=== PATIENT | female | born 1945 | race Caucasian/White ===

== ENCOUNTER → 2020-12-07 08:08 | Outpatient (BNV) | payer OTHER, SELFPAY | PROVIDERS: PCP Family Medicine; Visit Provider Internal Medicine | DX: D50.9 Iron deficiency anemia, unspecified (principal); D69.6 Thrombocytopenia, unspecified | CPT/HCPCS: 99214 ==

== ENCOUNTER → 2020-12-22 15:12 | Outpatient (BNVA) | payer OTHER, MEDICARE, SELFPAY | PROVIDERS: PCP Family Medicine; Visit Provider Physician Assistant | DX: D64.9 Anemia, unspecified (principal); D69.6 Thrombocytopenia, unspecified; Z87.891 Personal history of nicotine dependence | CPT/HCPCS: 99212 ==

== ENCOUNTER 2021-01-11 07:49 | Outpatient (REF) | payer OTHER, MEDICARE, SELFPAY | END 2021-01-11 07:50 | disposition home or self-care (01) | LOC: HO.MDS 07:49 | PROVIDERS: Visit Provider Internal Medicine | DX: D50.9 Iron deficiency anemia, unspecified (principal) | CPT/HCPCS: 96365; 96366; J1200; J1750; Q0163 ==

== ENCOUNTER 2021-02-07 04:48 | Inpatient (IN) | payer OTHER, MEDICARE, SELFPAY ==
[2021-02-07] VITALS (10 sets, daily range): BP systolic 126–148; BP diastolic 48–76; PULSE 82–108; RESP 20–24; TEMP 36.7–36.8; O2SAT 93–98; BMI 30.1
--- NOTE | ~2021-02-07 | CT_ITS ---
EXAMINATION: CT CHEST WITHOUT CONTRAST CLINICAL INFORMATION: Question pneumonia COMPARISON: Chest x-ray 02/07/2021 TECHNIQUE: Multidetector volumetric CT imaging of the chest was done. Axial MIP volume rendering provided. Sagittal and coronal reformatted images were obtained. This CT examination was performed using dose optimization techniques as appropriate, variously including the following: *Automated exposure control *Adjustment of mA and/or kV according to patient size (this includes techniques or standardized protocols for targeted exams where dose is matched to indication/reason for exam; i.e. extremities or head) *Use of iterative reconstruction technique DLP: 290 mGy-cm FINDINGS: The heart is enlarged. Coronary artery calcifications are present. There is no pericardial effusion. Mildly dilated ascending aorta measuring up to 4.1 cm in maximum dimension. No gross mediastinal lymphadenopathy appreciated on today's noncontrast imaging. No enlarged axillary lymph nodes. Central airways are patent. Lungs are adequately aerated. There is mild compressive atelectasis of both lung bases. No lobar consolidation is present. Mild emphysematous changes are noted. No pleural effusion or pneumothorax. A few tiny pulmonary nodules are present, for example a 3 mm upper lobe nodule (image [id number], series 5). Visualized portion of the upper abdomen are grossly unremarkable. Mild diffuse degenerative changes of the spine. CT/CT chest wo con IMPRESSION: 1. Mild emphysema. 2. Mild bibasilar compressive atelectasis. 3. A few tiny pulmonary nodules are present, largest measuring approximately 3 mm. 4. Mildly dilated ascending aorta measuring up to 4.1 cm. According to the UPDATED 2017 Fleischner Society recommendations, the advised follow-up imaging for solid nodules < 6 mm is: LOW RISK PATIENT: No routine follow-up. HIGH RISK PATIENT: Optional CT at 12 months.
--- NOTE | ~2021-02-07 | XR_ITS ---
EXAMINATION: XR CHEST CLINICAL INFORMATION: Shortness of breath COMPARISON: 11/28/2018 TECHNIQUE: Frontal view of the chest was obtained. FINDINGS: Lung volumes are symmetric. There is patchy airspace opacity at the right lung base. Mild retrocardiac opacity is difficult to entirely exclude. No evidence of pneumothorax or significant pleural effusion. Cardiac silhouette remains mildly enlarged for technique. Calcification is present at the aortic arch. No acute osseous findings are seen. XR/XR chest 1V IMPRESSION: Patchy right basilar opacity which may represent pneumonia or aspiration in the proper clinical setting.
--- NOTE | 2021-02-07 05:00 | ECG_ITS ---
Test Reason : SOB Blood Pressure : / mmHG Vent. Rate : 099 BPM Atrial Rate : 099 BPM P-R Int : 148 ms QRS Dur : 094 ms QT Int : 368 ms P-R-T Axes : 064 -27 088 degrees QTc Int : 472 ms Normal sinus rhythm Possible Left atrial enlargement Left ventricular hypertrophy Nonspecific ST and T wave abnormality Abnormal ECG When compared with ECG of 08-SEP-2016 08:21, Nonspecific T wave abnormality, improved in Anterior leads Referred By: Sarahy Cruz Electronically Signed By:ZINA MCCONNELL MD
[2021-02-07] MEDS: Albuterol Sulfate (0.083%) 2.5 MG/3 ML VIAL.NEB 5 MG INHALE (05:13)
[2021-02-07] MEDS: methylPREDNISolone Sod Succ 125 MG/2 ML VIAL IVPUSH (05:21)
--- NOTE | 2021-02-07 05:24 | ED_ITS ---
HPI - Asthma General Chief Complaint: Asthma Stated Complaint: DIFF BREATHING Time Seen by Provider: 02/07/21 05:00 Source: patient Mode of arrival: EMS History of Present Illness HPI Narrative: This is a 75-year-old female who is brought in by EMS for acute onset of shortness of breath that started last night, patient reports history of COPD/asthma and received 1 DuoNeb EN route to the hospital. Otherwise, patient denies any fever, chills and states that she did spend quite a bit of time outside yesterday and heat. Patient also reports cough and that she does not use oxygen at home. Related Data Home Medications Medication Instructions Recorded Confirmed albuterol sulfate [ProAir HFA] 90 inh INHALATION DAILY 12/07/20 01/07/21 alprazolam 1 tab PO TID PRN 12/07/20 12/07/20 aspirin [Aspir-81] 81 mg PO DAILY 12/07/20 12/07/20 bupropion HCl 1 tab PO BID 12/07/20 12/07/20 diclofenac sodium 1 tab PO BID 12/07/20 12/07/20 fluticasone propionate INTRANASAL 12/07/20 fluticasone propionate [Flovent INHALATION 12/07/20 HFA] guaifenesin [Mucinex] 600 mg PO Q12H PRN 12/07/20 12/07/20 hydrocodone-acetaminophen 1 tab PO TID PRN 12/07/20 12/07/20 naloxone [Narcan] 1 spray INTRANASAL ONCE PRN 12/07/20 12/07/20 Previous Rx's Medication Instructions Recorded ferrous sulfate [iron] 325 mg PO BID #60 tab 12/07/20 omeprazole magnesium [Prilosec] 10 mg PO DAILY #30 ea 12/08/20 ondansetron HCl [Zofran] 4 mg PO BID PRN #60 tab 12/08/20 bisacodyl 5 mg tablet,delayed 10 mg PO ONCE 1 Days #2 tab 12/22/20 release omeprazole 40 mg capsule,delayed 40 mg PO DAILY #60 cap 12/22/20 release polyethylene glycol 3350 17 238 g PO ONCE 1 Days #238 g 12/22/20 gram/dose oral powder sucralfate 100 mg/mL oral 10 ml PO QIDACHS #420 ml 12/22/20 suspension Allergies Allergy/AdvReac Type Severity Reaction Status Date / Time amoxicillin Allergy Unknown Verified 06/27/18 00:00 penicillin V Allergy Unknown Verified 06/27/18 00:00 Penicillins [PENICILLINS] Allergy Unknown HIVES Unverified 06/04/20 19:05 Sulfa (Sulfonamide Allergy Unknown HIVES Unverified 06/04/20 19:05 Antibiotics) [SULFA (SULFONAMIDE ANTIBIOTICS)] Review of Systems Review of Systems: Pertinent positives and negatives as stated in HPI 10 point review of systems is otherwise negative. [facility] Past Medical History Source: nursing notes reviewed Medical History Anxiety Asthma GERD (gastroesophageal reflux disease) Osteoarthritis Thrombocytopenia Surgical History Hx of hysterectomy Hx of oophorectomy Hx of total knee replacement Family History Family History Sister Lung cancer Lupus Sister Lung cancer Maternal Aunt Lupus Social History Social History Household Members Other:: lives alone Alcohol intake: current Alcohol intake frequency: holidays/special occasions only Smoking Status: Former smoker Advance Directives: No Advance Directives Information Provided: No Physical Exam Vital Signs: Vital Signs: Last Vital Signs Temp 98.0 F 02/07/21 06:31 Pulse 99 02/07/21 07:24 Resp 20 02/07/21 07:24 BP 126/60 02/07/21 07:24 Pulse Ox 97 02/07/21 07:24 Body Mass Index 30.1 VITAL SIGNS: Reviewed. GENERAL: Well developed, well nourished, in no acute distress. HEAD: Normocephalic/atraumatic, EYES: PERRLA, EOMI NOSE: Nares patent bilateral OROPHARYNX: no oral lesions noted, posterior pharynx clear NECK: Supple, no adenopathy LUNGS: Decreased breath sounds with expiratory wheezing noted bilateral, tachypnea. SpO2<95> CARDIOVASCULAR: Regular rate and rhythm without noted murmurs, no JVD or lower extremity edema. ABDOMEN: Soft, non-tender, non-distended with bowel sounds. NEUROLOGIC: Alert and oriented x 4. Strength and sensation to light touch were grossly intact x 4. Course Course Course Narrative: This is a 75-year-old female with history and clinical presentation suggestive COPD exacerbation, pneumonia, but less likely CHF as there are no clinical findings and patient has no history. Patient is also noted to be hypoxic and requiring supplemental oxygen. Patient received Solu- Medrol, hour long albuterol and on re-evaluation reports improvement of her symptoms. However chest x-ray demonstrate patchy right basilar opacity. Patient unable to be titrated off of the oxygen and will receive additional DuoNeb as well as antibiotics. All remaining investigations were reviewed and this case was discussed with the inpatient hospitalist team. I discussed this case with the inpatient hospitalist team MDM - Asthma Lab Data Result diagrams: 02/07/21 05:40 02/07/21 05:40 Labs: Lab Results 02/07/21 02/07/21 02/07/21 Range/Units 05:40 05:40 05:40 WBC 11.4 H (4.8-10.8) X10*3/uL RBC 3.76 L (4.20-5.50) X10*6/uL Hgb 10.5 L (12.0-16.0) g/dl Hct 35.2 L (37-47) % MCV 93.6 (80-98) fL MCH 27.9 (27.0-33.0) pg MCHC 29.8 L (31.0-35.0) g/dl RDW 21.7 H (11.0-16.0) % Plt Count 79 L (160-400) X10*3/uL MPV Not Reportable Immature Gran % (Auto) 0.4 (0.0-0.4) % Neut % (Auto) 89.6 H (45-73) % Lymph % (Auto) 5.4 L (20-40) % [place] % (Auto) 4.1 (2-11) % Eos % (Auto) 0.1 (0-4) % Baso % (Auto) 0.4 (0-2) % Lymph # (Auto) 0.6 L (1.2-4.9) X10*3/uL [place] # (Auto) 0.5 (0.1-1.2) X10*3/uL Eos # (Auto) 0.0 (0.0-0.4) X10*3/uL Baso # (Auto) 0.0 (0.0-0.2) X10*3/uL Abs Immat Gran (auto) 0.04 H (0.00-0.03) X10*3/uL Absolute Neuts (auto) 10.2 H (2.0-8.3) X10*3/uL Absolute Nucleated RBC 0.000 (0.0-0.012) X10*3/uL Nucleated RBC % (auto) 0.0 (0.0-0.2) /100WBC Smear Tech's Comments VERIFIED VBG pH (7.32-7.43) VBG pCO2 mmHg VBG pO2 mmHg VBG HCO3 (22-26) mmol/L VBG O2 Saturation % VBG Base Excess mmol/L Sodium 146 H (135-145) mmol/L Potassium 4.1 (3.3-5.1) mmol/L Chloride 111 H (96-108) mmol/L Carbon Dioxide 27 (22-29) mmol/L Anion Gap 12 (12-20) BUN 24 H (9-16) mg/dL Creatinine 0.92 (0.5-1.4) mg/dL Estim Creat Clear Calc 51.1 Estimated GFR 59 Random Glucose 135 H (60-115) mg/dL Lactic Acid (0.5-2.0) mmol/L Calcium 8.9 (8.4-10.2) mg/dL Total Bilirubin 0.4 (0.0-1.0) mg/dL AST 79 H (5-31) U/L ALT 114 H (0-31) U/L Alkaline Phosphatase 62 (39-117) U/L B-Natriuretic Peptide 601 H (<100) pg/mL Total Protein 6.1 L (6.5-8.0) g/dL Albumin 4.2 (3.5-5.0) g/dL 02/07/21 02/07/21 Range/Units 05:40 05:46 WBC (4.8-10.8) X10*3/uL RBC (4.20-5.50) X10*6/uL Hgb (12.0-16.0) g/dl Hct (37-47) % MCV (80-98) fL MCH (27.0-33.0) pg MCHC (31.0-35.0) g/dl RDW (11.0-16.0) % Plt Count (160-400) X10*3/uL MPV Immature Gran % (Auto) (0.0-0.4) % Neut % (Auto) (45-73) % Lymph % (Auto) (20-40) % [place] % (Auto) (2-11) % Eos % (Auto) (0-4) % Baso % (Auto) (0-2) % Lymph # (Auto) (1.2-4.9) X10*3/uL [place] # (Auto) (0.1-1.2) X10*3/uL Eos # (Auto) (0.0-0.4) X10*3/uL Baso # (Auto) (0.0-0.2) X10*3/uL Abs Immat Gran (auto) (0.00-0.03) X10*3/uL Absolute Neuts (auto) (2.0-8.3) X10*3/uL Absolute Nucleated RBC (0.0-0.012) X10*3/uL Nucleated RBC % (auto) (0.0-0.2) /100WBC Smear Tech's Comments VBG pH 7.32 (7.32-7.43) VBG pCO2 54 mmHg VBG pO2 85 mmHg VBG HCO3 28 H (22-26) mmol/L VBG O2 Saturation 95.0 % VBG Base Excess 1.9 mmol/L Sodium (135-145) mmol/L Potassium (3.3-5.1) mmol/L Chloride (96-108) mmol/L Carbon Dioxide (22-29) mmol/L Anion Gap (12-20) BUN (9-16) mg/dL Creatinine (0.5-1.4) mg/dL Estim Creat Clear Calc Estimated GFR Random Glucose (60-115) mg/dL Lactic Acid 1.1 (0.5-2.0) mmol/L Calcium (8.4-10.2) mg/dL Total Bilirubin (0.0-1.0) mg/dL AST (5-31) U/L ALT (0-31) U/L Alkaline Phosphatase (39-117) U/L B-Natriuretic Peptide (<100) pg/mL Total Protein (6.5-8.0) g/dL Albumin (3.5-5.0) g/dL Discharge Plan Discharge Clinical Impression: Pneumonia, Hypoxia, COPD (chronic obstructive pulmonary disease) Patient Disposition: Admitted As Inpatient
[2021-02-07 05:55] LABS: Basophils Percent Auto 0.4 % (0-2); Eosinophils Percent Auto 0.1 % (0-4); Imm Gran Abs Auto 0.04 X10*3/uL (0.00-0.03); Imm Gran Pct Auto 0.4 % (0.0-0.4); Lymphocytes Absolute Auto 0.6 X10*3/uL (1.2-4.9); Lymphocytes Percent Auto 5.4 % (20-40); MANUAL DIFF FLAG SCAN; Red Cell Distribution Width 21.7 % (11.0-16.0); SCAN SMEAR FLAG 1
[2021-02-07 05:57] LABS: Hematocrit 35.2 % (37-47); Hemoglobin 10.5 g/dl (12.0-16.0); Mean Corpuscular HGB Conc 29.8 g/dl (31.0-35.0); Mean Corpuscular Hemoglobin 27.9 pg (27.0-33.0); Mean Corpuscular Volume 93.6 fL (80-98); Monocytes Absolute Auto 0.5 X10*3/uL (0.1-1.2); Monocytes Percent Auto 4.1 % (2-11); Neutrophils Absolute Auto 10.2 X10*3/uL (2.0-8.3); Neutrophils Percent Auto 89.6 % (45-73); Red Blood Count 3.76 X10*6/uL (4.20-5.50); White Blood Count 11.4 X10*3/uL (4.8-10.8)
[2021-02-07 06:06] LABS: VBG Base Excess 1.9 mmol/L; VBG HCO3 28 mmol/L (22-26); VBG pCO2 54 mmHg; VBG pH 7.32 (7.32-7.43); VBG pO2 85 mmHg
[2021-02-07 06:09] LABS: Venous Blood Gas Refer to POC result
[2021-02-07 06:12] LABS: Lactic Acid 1.1 mmol/L (0.5-2.0)
[2021-02-07 06:21] LABS: Alanine Aminotransferase 114 U/L (0-31); Albumin Level 4.2 g/dL (3.5-5.0); Alkaline Phosphatase 62 U/L (39-117); Anion Gap 12 (12-20); Aspartate Amino Transferase 79 U/L (5-31); Bilirubin Total 0.4 mg/dL (0.0-1.0); Blood Urea Nitrogen 24 mg/dL (9-16); Calcium 8.9 mg/dL (8.4-10.2); Carbon Dioxide 27 mmol/L (22-29); Chloride 111 mmol/L (96-108); Creatinine Clr Calc Pharmacy 51.1; Estimated Glomerular Filt Rate 59; Glucose Random 135 mg/dL (60-115); Potassium 4.1 mmol/L (3.3-5.1); Sodium 146 mmol/L (135-145); Total Protein 6.1 g/dL (6.5-8.0)
[2021-02-07 06:22] LABS: B Type Natriuretic Peptide 601 pg/mL (<100)
[2021-02-07 06:24] LABS: PLT ABN DIST 1; Platelet Count 79 X10*3/uL (160-400)
[2021-02-07] MEDS: Albuterol/Iprat 2.5/0.5MG 3 ML AMPUL.NEB INHALE ×4 (06:34→21:55)
[2021-02-07 06:37] LABS: SLIDE REVIEW VERIFIED
[2021-02-07] MEDS: levoFLOXacin/D5W 750 MG/150 ML PIGGYBACK 100 MG IV (07:21)
--- NOTE | 2021-02-07 07:24 | PC.NURSE ---
Pt on stretcher, speaking full sentences with occasional deep breaths. LS are clear. Occasional moist cough, pt reports clear productive phelgm. Skin is pink warm and dry. NSR on tele. assisted on bedpan. Levaquin started. Sat 95% on 2lpm via nc.
--- NOTE | 2021-02-07 09:37 | PM.IMHP ---
History of Present Illness Date of Service: 02/07/21 Chief Complaint: Shortness of breath This is a 75-year-old female with past medical history of asthma, anxiety, GERD, who presents to the hospital with complaints of shortness of breath, cough, and sputum production. Patient reports that her symptoms started 2-3 days ago where she started feeling congested, she has no fever no chills, she had minimal wheezing yesterday but resolved. She has some nausea with no vomiting. She has had loose bowels for 3 days, she was on antibiotics from 01/25 for 5 days for dental procedure, and had an episode of bronchial pneumonia about few months ago where she was treated with p.o. antibiotics for few days but reports that she did not complete her course due to the antibiotics causing her constipation. She denies any abdominal pain, no urinary symptoms and no lower extremity edema. No chest pain, no palpitations. No headache or change in vision and no weakness numbness or tingling. On arrival to the ED hemodynamically stable with vitals significant for temperature of 98.2?, heart rate of 108, respiratory rate of 24, blood pressure 130/76, satting 93% on room air Labs are significant for WBC count 11.4, hemoglobin of 10.5, pH of 7.32, CO2 of 54, sodium of 146, chloride of 111, BUN of 24, creatinine of 0.92, AST of 79, ALT of 114, BNP of 601, COVID-19 negative EKG shows normal sinus rhythm with possible left atrial enlargement and left ventricular hypertrophy, number specific ST T-wave abnormality Chest x-ray significant for patchy right basilar opacity which may represent pneumonia or aspiration in the proper clinical setting Past medical history as below lung confirmed with patient Review of Systems Review of Systems: Yes all other systems are reviewed and are negative [facility] Medical History Anxiety Asthma GERD (gastroesophageal reflux disease) Osteoarthritis Thrombocytopenia Family History Sister Lung cancer Lupus Sister Lung cancer Maternal Aunt Lupus Surgical History Hx of hysterectomy Hx of oophorectomy Hx of total knee replacement Social History Household Members Other:: lives alone Alcohol intake: current Alcohol intake frequency: holidays/special occasions only Smoking Status: Former smoker Advance Directives: No Advance Directives Information Provided: No Meds Allergies Allergy/AdvReac Type Severity Reaction Status Date / Time amoxicillin Allergy Unknown Verified 06/27/18 00:00 penicillin V Allergy Unknown Verified 06/27/18 00:00 Penicillins [PENICILLINS] Allergy Unknown HIVES Unverified 06/04/20 19:05 Sulfa (Sulfonamide Allergy Unknown HIVES Unverified 06/04/20 19:05 Antibiotics) [SULFA (SULFONAMIDE ANTIBIOTICS)] Home Medications Medication Instructions Recorded Confirmed Last Taken Type albuterol sulfate [ProAir HFA] 90 inh INHALATION DAILY 12/07/20 02/07/21 Unknown History alprazolam 1 tab PO TID PRN 12/07/20 02/07/21 Unknown History aspirin [Aspir-81] 81 mg PO DAILY 12/07/20 02/07/21 Unknown History bupropion HCl 1 tab PO BID 12/07/20 02/07/21 Unknown History diclofenac sodium 1 tab PO BID 12/07/20 02/07/21 Unknown History hydrocodone-acetaminophen 1 tab PO TID PRN 12/07/20 02/07/21 Unknown History biotin 1 mg PO DAILY 02/07/21 02/07/21 Unknown History cholecalciferol (vitamin D3) 1,000 unit 02/07/21 Unknown History [Vitamin D3] vitamin A unit PO 02/07/21 Unknown History vitamin [id number] acid 1 tab PO 02/07/21 Unknown History Physical Exam Vital Signs and Narrative: Vital Signs: Last Vital Signs Temp 98.0 F 02/07/21 06:31 Pulse 99 02/07/21 07:24 Resp 20 02/07/21 07:24 BP 126/60 02/07/21 07:24 Pulse Ox 97 02/07/21 07:24 Body Mass Index 30.1 Const: General: cooperative and no acute distress Orientation/consciousness: patient oriented x3 Eyes: General: appearance normal, both eyes and all related structures Resp: Effort & Inspection: normal respiratory effort and able to speak in complete sentences Cardio: Rate: regular rate Rhythm: regular rhythm GI: Palpation (GI): Soft to palpation Auscultation: normal bowel sounds Skin: General skin exam: no rashes or lesions noted Neuro: General: patient oriented x3 Cognition (Neuro): normal cognition Extrem: General: Yes normal to inspection and Yes no pedal edema Results Labs CBC and Chem 7: 02/07/21 05:40 02/07/21 05:40 Labs: Laboratory Results - last 24 hr 02/07/21 02/07/21 02/07/21 05:40 05:40 05:40 MCV 93.6 MCH 27.9 MCHC 29.8 L RDW 21.7 H Plt Count 79 L MPV Not Reportable Immature Gran % (Auto) 0.4 Neut % (Auto) 89.6 H Lymph % (Auto) 5.4 L [place] % (Auto) 4.1 Eos % (Auto) 0.1 Baso % (Auto) 0.4 Lymph # (Auto) 0.6 L [place] # (Auto) 0.5 Eos # (Auto) 0.0 Baso # (Auto) 0.0 Abs Immat Gran (auto) 0.04 H Absolute Neuts (auto) 10.2 H Absolute Nucleated RBC 0.000 Nucleated RBC % (auto) 0.0 Smear Tech's Comments VERIFIED VBG pH VBG pCO2 VBG pO2 VBG HCO3 VBG O2 Saturation VBG Base Excess Anion Gap 12 Estim Creat Clear Calc 51.1 Estimated GFR 59 Random Glucose 135 H Lactic Acid Calcium 8.9 Total Bilirubin 0.4 AST 79 H ALT 114 H Alkaline Phosphatase 62 B-Natriuretic Peptide 601 H Total Protein 6.1 L Albumin 4.2 02/07/21 02/07/21 05:40 05:46 MCV MCH MCHC RDW Plt Count MPV Immature Gran % (Auto) Neut % (Auto) Lymph % (Auto) [place] % (Auto) Eos % (Auto) Baso % (Auto) Lymph # (Auto) [place] # (Auto) Eos # (Auto) Baso # (Auto) Abs Immat Gran (auto) Absolute Neuts (auto) Absolute Nucleated RBC Nucleated RBC % (auto) Smear Tech's Comments VBG pH 7.32 VBG pCO2 54 VBG pO2 85 VBG HCO3 28 H VBG O2 Saturation 95.0 VBG Base Excess 1.9 Anion Gap Estim Creat Clear Calc Estimated GFR Random Glucose Lactic Acid 1.1 Calcium Total Bilirubin AST ALT Alkaline Phosphatase B-Natriuretic Peptide Total Protein Albumin Imaging Radiologist's Impressions: Impressions Chest X-Ray 02/07/21 05:02 IMPRESSION: Patchy right basilar opacity which may represent pneumonia or aspiration in the proper clinical setting. Assessment and Plan (1) Pneumonia: Status: Acute (2) CHF exacerbation: Status: Acute (3) Dyspnea: Status: Acute This is a 75-year-old female with past medical history of asthma who presents to the hospital with shortness of breath cough and sputum production found to have pneumonia and elevated BNP # dyspnea - possibly multifactorial secondary to pneumonia as well as CHF exacerbation - patient has no history of CHF but has elevated BNP with previous levels normal - no hypoxia with O2 level of 91% on room air on arrival - has leukocytosis, chest x-ray revealing right-sided patchy infiltrate concerning for pneumonia - at this time will start patient on IV antibiotics as well as treatment of CHF as below - monitor respiratory status # community-acquired pneumonia - has right lower lobe patchy infiltrate - will treat with IV antibiotics - follow cultures # CHF exacerbation - patient comes in with dyspnea, has elevated BNP - at this time will obtain echo - EKG showing possible left atrial and ventricular hypertrophy - troponin pending - start patient on Lasix 40 daily - consult cardiology # asthma/COPD - pt former heavy smoker smoked 1 ppd for over >30 yrs quit in 2002 - reports some wheezing, has cough, sputum production as well as dyspnea - will start patient on IV Solu-Medrol 40 b.i.d., DuoNeb p.r.n. and scheduled # chronic pain - continue hydrocodone-acetaminophen DVT prophylaxis:lovenox
[2021-02-07 09:42] LABS: COVID-19 Test Negative (Negative)
[2021-02-07 10:47] LABS: Troponin-I High Sensitivity 30.3 ng/L (<3.5-17.0)
[2021-02-07] MEDS: Furosemide 40 MG/4 ML VIAL IVPUSH (11:23)
[2021-02-07] MEDS: Diclofenac Sodium Delayed Rel 75 MG TABLET.DR PO ×2 (11:23→20:20)
[2021-02-07] MEDS: cefTRIAXone sodium 1 GM in 0.9 % Sodium Chloride 50 ML IV (11:25)
[2021-02-07] MEDS: Azithromycin 500 MG TABLET PO (11:25)
[2021-02-07] MEDS: Enoxaparin Sodium 40 MG/0.4 ML SYRINGE SUBCUT (11:26)
[2021-02-07] MEDS: HYDROcodone Bit/Acetam 7.5/325 TABLET 1 TAB PO ×3 (11:26→20:20)
[2021-02-07] MEDS: Aspirin Enteric Coated 81 MG TABLET.DR PO (11:30)
--- NOTE | 2021-02-07 11:48 | PC.NURSE ---
Pt ambulatory to bathroom, bedside commode obtained. Meds given.
--- NOTE | 2021-02-07 11:49 | PC.NURSE ---
ASA given unscheduled this morning. Pt denies chest pain but reports SOB more with exertion. Also reports chronic rt knee and rt hip and gum discomfort from recent dental procedure
--- NOTE | 2021-02-07 15:13 | PM.CNCAR ---
History of Present Illness History of Present Illness Date of Service: 02/07/21 Requesting physician: Sona Barcenas Consult reason: congestive heart failure Chief complaint: Pneumonia Narrative: I was asked to see Susan in cardiology consultation today for sudden-onset shortness of breath and elevated markers of BNP suggestive of congestive heart failure. 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 Also recently noticed to have iron deficiency anemia received iron infusion for the same. Patient was seen by GI but is not getting any further workup for the iron deficiency anemia, present the hospital with increasing shortness of breath. She says about a month ago she started noticing she currently flat as she would get short of breath. However last night she got significantly worse and got significant short of breath initially thought she had asthma/COPD exacerbation took her inhalers but was not able to breathe and called EMS. She was brought here. Recently she has noticed increasing cough and sputum production. On further workup she was noted to have elevated BNP of six hundred one along with chest x-ray finding suggestive of right basilar infiltrate suggestive of pneumonia. She does have mild leukocytosis. She says since been here and started antibiotic in oxygen and with Lasix she has diuresed well and she is feeling better. She has not had any chest pain, palpitations. No prior history of heart issues including hypertension, congestive heart failure or coronary artery disease. Her high sensitive troponin is minimally elevated. EKG shows LVH with repolarization abnormality. Review of Systems Constitutional: Constitutional: Reports no additional constitutional complaints Cardiovascular: Cardiovascular: Denies Abdominal Distension, Denies chest pain, Denies leg edema, Denies lightheadedness, Denies palpitations, Reports dyspnea on exertion and Reports orthopnea Respiratory: Respiratory: Reports cough, Reports excessive phlegm production and Reports dyspnea on exertion Gastrointestinal: Gastrointestinal: Reports no additional gastrointestinal complaints Genitourinary: Genitourinary: Reports no additional female genitourinary complaints Musculoskeletal: Musculoskeletal: Reports no additional musculoskeletal complaints Neurologic: Reports system reviewed and no additional complaints, except as documented Psychiatric: Psychiatric: Reports no additional psychiatric complaints Endocrine: Endocrine: Reports no additional endocrine complaints and Denies palpitations Hematologic/Lymphatic: Hematologic/Lymphatic: Reports no additional hematologic/lymphatic complaints [facility] Past Medical History Medical History Anxiety Asthma GERD (gastroesophageal reflux disease) Osteoarthritis Thrombocytopenia Family History Family History Sister Lung cancer Lupus Sister Lung cancer Maternal Aunt Lupus Surgical History Surgical History Hx of hysterectomy Hx of oophorectomy Hx of total knee replacement Social History Social History Household Members Other:: lives alone Alcohol intake: current Alcohol intake frequency: holidays/special occasions only Smoking Status: Former smoker Advance Directives: No Advance Directives Information Provided: No Meds Allergies Allergy/AdvReac Type Severity Reaction Status Date / Time amoxicillin Allergy Unknown Verified 06/27/18 00:00 penicillin V Allergy Unknown Verified 06/27/18 00:00 Penicillins [PENICILLINS] Allergy Unknown HIVES Unverified 06/04/20 19:05 Sulfa (Sulfonamide Allergy Unknown HIVES Unverified 06/04/20 19:05 Antibiotics) [SULFA (SULFONAMIDE ANTIBIOTICS)] Active Medications: Current Medications Generic Name Dose Route Start Last Admin Trade Name Freq PRN Reason Stop Dose Admin Acetaminophen 650 mg 02/07/21 10:38 Acetaminophen 325 Mg Tablet PO Q6H PRN Pain, Mild (Pain Scale 1-3) Hydrocodone Bitart/Acetaminophen 1 tab 02/07/21 10:38 02/07/21 11:26 Hydrocodone Bit/Acetam 7.5/325 Tablet PO 1 tab TID PRN Administration Pain Albuterol Sulfate 90 puff 02/08/21 08:00 Albuterol Sulfate 90 Mcg 8 Gm Inhaler INHALE RDAILY ROBERTO Albuterol/Ipratropium 3 ml 02/07/21 12:00 02/07/21 11:25 Albuterol/Iprat 2.5/0.5mg 3 Ml Ampul.Neb INHALE 3 ml RQ4H WHILE AWAKE ROBERTO Administration Albuterol/Ipratropium 3 ml 02/07/21 10:38 Albuterol/Iprat 2.5/0.5mg 3 Ml Ampul.Neb INHALE RQ4H PRN Shortness of Breath/Wheezing Alprazolam 0.5 mg 02/07/21 10:38 Alprazolam 0.5 Mg Tablet PO TID PRN Sleep Aspirin 81 mg 02/08/21 09:00 02/07/21 11:30 Aspirin Enteric Coated 81 Mg Tablet. PO 81 mg DAILY [facility] Administration Azithromycin 500 mg 02/07/21 12:00 02/07/21 13:47 Azithromycin 500 Mg Tablet PO Not Given Q24H [facility] Bupropion HCl 300 mg 02/08/21 09:00 Bupropion Hcl Xl 300 Mg Tab.Er.24h PO DAILY [facility] Diclofenac Sodium 75 mg 02/07/21 21:00 02/07/21 11:23 Diclofenac Sodium Delayed Rel 75 Mg Tablet. PO 75 mg BID [facility] Administration Docusate Sodium 100 mg 02/07/21 10:38 Docusate Sodium 100 Mg Capsule PO DAILY PRN Constipation Enoxaparin Sodium 40 mg 02/07/21 12:00 02/07/21 11:36 Enoxaparin Sodium 40 Mg/0.4 Ml Syringe SUBCUT Not Given Q24H [facility] Furosemide 40 mg 02/07/21 10:00 02/07/21 11:23 Furosemide 40 Mg/4 Ml Vial IVPUSH 40 mg DAILY [facility] Administration Protocol Ceftriaxone Sodium 1 gm/ 50 mls @ 100 mls/hr 02/07/21 12:00 02/07/21 12:00 Sodium Chloride IV Infused Q24H [facility] Infusion Methylprednisolone Sodium Succinate 40 mg 02/07/21 18:00 Methylprednisolone Sod Succ 40 Mg/Ml Vial IVPUSH Q12H [facility] Ondansetron HCl 4 mg 02/07/21 10:38 Ondansetron Hcl 4 Mg/2 Ml Vial IVPUSH Q8H PRN Nausea and Vomiting Sodium Chloride 3 ml 02/07/21 16:00 0.9 % Sodium Chloride Flush 3 Ml Syringe IVFLUSH QSHIFT [facility] Home Medications Medication Instructions Recorded Confirmed Last Taken Type albuterol sulfate [ProAir HFA] 90 inh INHALATION DAILY 12/07/20 02/07/21 Unknown History alprazolam 1 tab PO TID PRN 12/07/20 02/07/21 Unknown History aspirin [Aspir-81] 81 mg PO DAILY 12/07/20 02/07/21 Unknown History bupropion HCl 1 tab PO BID 12/07/20 02/07/21 Unknown History diclofenac sodium 1 tab PO BID 12/07/20 02/07/21 Unknown History hydrocodone-acetaminophen 1 tab PO TID PRN 12/07/20 02/07/21 Unknown History biotin 1 mg PO DAILY 02/07/21 02/07/21 Unknown History cholecalciferol (vitamin D3) 1,000 unit 02/07/21 Unknown History [Vitamin D3] vitamin A unit PO 02/07/21 Unknown History vitamin Y11-[id number] acid 1 tab PO 02/07/21 Unknown History Physical Exam Vital Signs: Vital Signs: Last Vital Signs Temp 98.0 F 02/07/21 06:31 Pulse 101 H 02/07/21 11:47 Resp 20 02/07/21 11:47 BP 140/64 H 02/07/21 11:47 Pulse Ox 96 02/07/21 11:47 Body Mass Index 30.1 Const: General: cooperative, comfortable, alert, awake, acute distress mild and respiratory and anxious Nutritional Appearance: overweight Orientation/consciousness: patient oriented x3 HENMT: Head: Yes normocephalic and Yes atraumatic Neck: Neck: Yes trachea midline, Yes supple and Yes no JVD (Mild AJR) Resp: Effort & Inspection: normal respiratory effort Auscultation: no rales, no wheezes and diminished lung sounds Cardio: Palpation: normal PMI Rate: regular rate Rhythm: regular rhythm Heart sounds: S1 normal heart sound present and S2 normal heart sound present GI: Auscultation: normal bowel sounds Skin: General skin exam: no rashes or lesions noted Neuro: General: patient oriented x3 and no focal motor deficits Extrem: General: No clubbing, No cyanosis and Yes edema (Minimal) Psych: Appearance: grossly normal Results Labs and Meds Result diagrams: 02/07/21 05:40 02/07/21 05:40 Lab results: Laboratory Results - last 24 hr 02/07/21 02/07/21 02/07/21 05:40 05:40 05:40 WBC 11.4 H RBC 3.76 L Hgb 10.5 L Hct 35.2 L MCV 93.6 MCH 27.9 MCHC 29.8 L RDW 21.7 H Plt Count 79 L MPV Not Reportable Immature Gran % (Auto) 0.4 Neut % (Auto) 89.6 H Lymph % (Auto) 5.4 L [place] % (Auto) 4.1 Eos % (Auto) 0.1 Baso % (Auto) 0.4 Lymph # (Auto) 0.6 L [place] # (Auto) 0.5 Eos # (Auto) 0.0 Baso # (Auto) 0.0 Abs Immat Gran (auto) 0.04 H Absolute Neuts (auto) 10.2 H Absolute Nucleated RBC 0.000 Nucleated RBC % (auto) 0.0 Smear Tech's Comments VERIFIED VBG pH VBG pCO2 VBG pO2 VBG HCO3 VBG O2 Saturation VBG Base Excess Sodium 146 H Potassium 4.1 Chloride 111 H Carbon Dioxide 27 Anion Gap 12 BUN 24 H Creatinine 0.92 Estim Creat Clear Calc 51.1 Estimated GFR 59 Random Glucose 135 H Lactic Acid Calcium 8.9 Total Bilirubin 0.4 AST 79 H ALT 114 H Alkaline Phosphatase 62 Troponin I High Sens B-Natriuretic Peptide 601 H Total Protein 6.1 L Albumin 4.2 COVID-19 ([facility]) COVID-[employer] 02/07/21 02/07/21 02/07/21 05:40 05:46 08:17 WBC RBC Hgb Hct MCV MCH MCHC RDW Plt Count MPV Immature Gran % (Auto) Neut % (Auto) Lymph % (Auto) [place] % (Auto) Eos % (Auto) Baso % (Auto) Lymph # (Auto) [place] # (Auto) Eos # (Auto) Baso # (Auto) Abs Immat Gran (auto) Absolute Neuts (auto) Absolute Nucleated RBC Nucleated RBC % (auto) Smear Tech's Comments VBG pH 7.32 VBG pCO2 54 VBG pO2 85 VBG HCO3 28 H VBG O2 Saturation 95.0 VBG Base Excess 1.9 Sodium Potassium Chloride Carbon Dioxide Anion Gap BUN Creatinine Estim Creat Clear Calc Estimated GFR Random Glucose Lactic Acid 1.1 Calcium Total Bilirubin AST ALT Alkaline Phosphatase Troponin I High Sens B-Natriuretic Peptide Total Protein Albumin COVID-19 ([facility]INA) Negative COVID-19 [employer] Com See Note 02/07/21 10:12 WBC RBC Hgb Hct MCV MCH MCHC RDW Plt Count MPV Immature Gran % (Auto) Neut % (Auto) Lymph % (Auto) [place] % (Auto) Eos % (Auto) Baso % (Auto) Lymph # (Auto) [place] # (Auto) Eos # (Auto) Baso # (Auto) Abs Immat Gran (auto) Absolute Neuts (auto) Absolute Nucleated RBC Nucleated RBC % (auto) Smear Tech's Comments VBG pH VBG pCO2 VBG pO2 VBG HCO3 VBG O2 Saturation VBG Base Excess Sodium Potassium Chloride Carbon Dioxide Anion Gap BUN Creatinine Estim Creat Clear Calc Estimated GFR Random Glucose Lactic Acid Calcium Total Bilirubin AST ALT Alkaline Phosphatase Troponin I High Sens 30.3 H* B-Natriuretic Peptide Total Protein Albumin COVID-19 ([facility]) COVID-19 Clin Com EKG shows sinus tachycardia with LVH with repolarization abnormality Imaging Radiologist's impression: Impressions Chest X-Ray 02/07/21 05:02 IMPRESSION: Patchy right basilar opacity which may represent pneumonia or aspiration in the proper clinical setting. Assessment and Plan (1) CHF exacerbation: Status: Acute Sudden-onset shortness of breath in patient with pneumonia with EKG finding suggestive of LVH and repolarization abnormality with minimally elevated troponins with significant elevated BNP, findings overall consistent with decompensated congestive heart failure. She has improved with IV diuresis. Continue the same. Strict intake and output chart needs to be pursued. Will she require an echocardiogram to assess LV systolic and diastolic function. Eventually require ischemic workup. Continue to trend her troponin. Blood pressure is noted to be elevated, however she says this is related to anxiety/stress being in the hospital. Usually a blood pressure at home is within normal limits. Continue to trend the same. CHF education to be provided. Continue to treat aggressively to pneumonia and hypoxemia associated with it. Will follow with you. Thank you for allowing me to partake in the care Procedures Date of Service Date of Service: 02/07/21
[2021-02-07] MEDS: 0.9 % Sodium Chloride Flush 3 ML SYRINGE IVFLUSH (16:10)
--- NOTE | 2021-02-07 16:26 | PC.NURSE ---
per covering hospitalist, okay to give narco tab now, medication schedule will change from q8 to q4
[2021-02-07] MEDS: Acetaminophen 325 MG TABLET 650 MG PO (16:29)
[2021-02-07] MEDS: methylPREDNISolone Sod Succ 40 MG/ML VIAL IVPUSH (17:50)
[2021-02-07] MEDS: ALPRAZolam 0.5 MG TABLET PO (20:19)
--- NOTE | 2021-02-07 21:34 | PC.NURSE ---
pt reports acute anxiety regarding oxygen saturation and respiratiory rate. pt educated that vss stable. pt requests rt eval. rt called at [phone] at [phone]. per rt they will be down to eval.
[2021-02-08] VITALS (9 sets, daily range): BP systolic 106–137; BP diastolic 53–78; PULSE 85–117; RESP 17–20; TEMP 36.2–37; O2SAT 93–98
--- NOTE | 2021-02-08 00:26 | PC.NURSE ---
attempted to give report. richie morel will call back in 10 minutes. .
[2021-02-08] MEDS: 0.9 % Sodium Chloride Flush 3 ML SYRINGE IVFLUSH ×4 (01:32→20:24)
[2021-02-08 02:21] LABS: Appearance Urine CLEAR; Color Urine YELLOW; Glucose Urine UA NEG (NEG); Leukocyte Esterase Urine NEG (NEG); Nitrite Urine NEG (NEG); PH 5.5 (5.0-8.0); Specific Gravity - Urine 1.025 (1.005-1.025); Urine Blood 1+ (NEG); Urine Ketones NEG (NEG); Urine Protein NEG (NEG-TRACE)
[2021-02-08 02:26] LABS: Squamous Epithelial Cell Urine 1+ /LPF; WBC Urine 0-2 /HPF (0-4)
[2021-02-08] MEDS: methylPREDNISolone Sod Succ 40 MG/ML VIAL IVPUSH (06:04)
[2021-02-08 07:25] LABS: Red Cell Distribution Width 22.4 % (11.0-16.0)
[2021-02-08 07:27] LABS: Hematocrit 34.6 % (37-47); Hemoglobin 10.3 g/dl (12.0-16.0); Mean Corpuscular HGB Conc 29.8 g/dl (31.0-35.0); Mean Corpuscular Hemoglobin 27.8 pg (27.0-33.0); Mean Corpuscular Volume 93.3 fL (80-98); Red Blood Count 3.71 X10*6/uL (4.20-5.50)
[2021-02-08 07:47] LABS: PLT ABN DIST 1; Platelet Count 81 X10*3/uL (160-400); WBC ABN SCTR FOR CBC 1
[2021-02-08 07:51] LABS: Band Neutrophils Percent 2 % (3-5); Lymphocytes Percent Manual 7 % (20-40); Monocytes Percent Manual 6 % (2-11); Neutrophils Percent Manual 85 % (45-73)
[2021-02-08] MEDS: Albuterol/Iprat 2.5/0.5MG 3 ML AMPUL.NEB INHALE ×3 (07:51→15:41)
[2021-02-08 07:56] LABS: Hypochromasia 1+ (5-14) /OIF; Ovalocytes 1+ (5-14) /OIF; RBC Morphology NOTED
[2021-02-08 07:57] LABS: Large Platelet PRESENT; Platelet Estimate DECREASED (NORMAL); Platelet Morphology Comment NOTED
[2021-02-08 07:58] LABS: Lymphocytes Absolute Manual 0.8 X10*3/uL (0.6-4.8); Monocytes Absolute Manual 0.7 X10*3/uL (0.0-1.2); Neutrophils Absolute Manual 9.7 X10*3/uL (2.2-7.9); White Blood Count 11.1 X10*3/uL (4.8-10.8)
[2021-02-08 08:17] LABS: Anion Gap 13 (12-20); Blood Urea Nitrogen 27 mg/dL (9-16); Calcium 9.1 mg/dL (8.4-10.2); Carbon Dioxide 28 mmol/L (22-29); Chloride 106 mmol/L (96-108); Creatinine Clr Calc Pharmacy 54.1; Estimated Glomerular Filt Rate > 60; Glucose Random 90 mg/dL (60-115); Potassium 4.4 mmol/L (3.3-5.1); Sodium 143 mmol/L (135-145)
[2021-02-08] MEDS: ALPRAZolam 0.5 MG TABLET PO ×2 (09:02→17:05)
[2021-02-08] MEDS: Diclofenac Sodium Delayed Rel 75 MG TABLET.DR PO ×2 (09:02→20:22)
[2021-02-08] MEDS: Furosemide 40 MG/4 ML VIAL IVPUSH (09:02)
[2021-02-08] MEDS: Aspirin Enteric Coated 81 MG TABLET.DR PO (09:02)
[2021-02-08] MEDS: buPROPion HCl XL 300 MG TAB.ER.24H PO (09:15)
--- NOTE | 2021-02-08 10:34 | P.PNCA_ITS ---
Subjective Subjective Date of Service: 02/08/21 Interval history: She states that her breathing is improved Review of Systems Review of Systems Yes all other systems are reviewed and are negative Cardiovascular: Reports as per HPI, Reports no additional cardiovascular complaints, Denies acrocyanosis, Denies cool extremities, Denies painful fingertips, Denies chest pain, Denies chest pain at rest, Denies diaphoresis, Denies syncope, Denies irregular heart rhythm, Denies claudication, Denies leg edema, Denies lightheadedness, Denies palpitations and Reports dyspnea Respiratory: Reports dyspnea Denies syncope Endocrine: Denies palpitations Physical Exam Vital Signs: Last Vital Signs Temp 98.6 F 02/08/21 07:17 Pulse 90 02/08/21 07:53 Resp 18 02/08/21 07:17 BP 134/68 02/08/21 07:17 Pulse Ox 98 02/08/21 07:17 Body Mass Index 30.1 Const General: cooperative, comfortable and no acute distress Orientation/consciousness: patient oriented x3 HENMT Other: Unremarkable Neck Neck: Yes normal visual inspection Chest Chest palpation & inspection: normal inspection of the chest Resp Auscultation: clear to auscultation bilaterally, no crackles and no wheezes Cardio Jugular venous distension: no JVD Palpation: normal PMI Heart sounds: S1 normal heart sound present, S2 normal heart sound present, no gallops, Murmur heart sound present systolic (3/6 CONCEPCION aortic area, 3/6 HSM apex) and no rubs GI Palpation (GI): Soft to palpation Back/Spine/Pelvis Other: unremarkable Skin General skin exam: no rashes or lesions noted Neuro General: patient oriented x3 Extrem General: Yes no clubbing, cyanosis or edema Psych Mental Status: mental status grossly normal Results Labs and Meds Result diagrams: 02/08/21 05:37 02/08/21 05:37 Lab results: Laboratory Results - last 24 hr 02/07/21 02/08/21 02/08/21 10:12 01:58 05:37 WBC 11.1 H RBC 3.71 L Hgb 10.3 L Hct 34.6 L MCV 93.3 MCH 27.8 MCHC 29.8 L RDW 22.4 H Plt Count 81 L MPV Not Reportable Immature Gran % (Auto) Cancelled Neut % (Auto) Cancelled Lymph % (Auto) Cancelled [place] % (Auto) Cancelled Eos % (Auto) Cancelled Baso % (Auto) Cancelled Lymph # (Auto) Cancelled [place] # (Auto) Cancelled Eos # (Auto) Cancelled Baso # (Auto) Cancelled Abs Immat Gran (auto) Cancelled Absolute Neuts (auto) Cancelled Absolute Nucleated RBC 0.000 Nucleated RBC % (auto) 0.0 Neutrophils % (Manual) 85 H Band Neutrophils % 2 L Lymphocytes % (Manual) 7 L Monocytes % (Manual) 6 Abs Neuts (Manual) 9.7 H Lymphocytes # (Manual) 0.8 Monocytes # (Manual) 0.7 Platelet Estimate DECREASED Large Platelets PRESENT Plt Morphology Comment NOTED RBC Morphology NOTED Hypochromasia 1+ (5-14) Ovalocytes 1+ (5-14) Sodium Potassium Chloride Carbon Dioxide Anion Gap BUN Creatinine Estim Creat Clear Calc Estimated GFR Random Glucose Calcium Troponin I High Sens 30.3 H* Urine Color YELLOW Urine Appearance CLEAR Urine pH 5.5 Ur Specific [place] 1.025 Urine Protein NEG Urine Glucose (UA) NEG Urine Ketones NEG Urine Blood 1+ H Urine Nitrite NEG Ur Leukocyte Esterase NEG Urine RBC 5-9 H Urine WBC 0-2 Ur Squamous Epith Cells 1+ Urine Bacteria NONE 02/08/21 05:37 WBC RBC Hgb Hct MCV MCH MCHC RDW Plt Count MPV Immature Gran % (Auto) Neut % (Auto) Lymph % (Auto) [place] % (Auto) Eos % (Auto) Baso % (Auto) Lymph # (Auto) [place] # (Auto) Eos # (Auto) Baso # (Auto) Abs Immat Gran (auto) Absolute Neuts (auto) Absolute Nucleated RBC Nucleated RBC % (auto) Neutrophils % (Manual) Band Neutrophils % Lymphocytes % (Manual) Monocytes % (Manual) Abs Neuts (Manual) Lymphocytes # (Manual) Monocytes # (Manual) Platelet Estimate Large Platelets Plt Morphology Comment RBC Morphology Hypochromasia Ovalocytes Sodium 143 Potassium 4.4 Chloride 106 Carbon Dioxide 28 Anion Gap 13 BUN 27 H Creatinine 0.87 Estim Creat Clear Calc 54.1 Estimated GFR > 60 Random Glucose 90 Calcium 9.1 Troponin I High Sens Urine Color Urine Appearance Urine pH Ur Specific [place] Urine Protein Urine Glucose (UA) Urine Ketones Urine Blood Urine Nitrite Ur Leukocyte Esterase Urine RBC Urine WBC Ur Squamous Epith Cells Urine Bacteria Progress Note: A&P Assessment and plan (1) Acute on chronic heart failure: Status: Acute (2) COPD (chronic obstructive pulmonary disease): Status: Acute Assessment and Plan: EKG with left ventricular hypertrophy and strain type pattern. Chest x-ray reported to have patchy right basilar opacity which may represent pneumonia or aspiration. BNP is elevated to 601. Currently on IV Lasix. Based on her clinical examination, possible aortic stenosis or mitral regurgitation. We will get an echocardiogram to assess further. We will follow up with you. Fall Risk Details Current Medications: Current Medications Generic Name Dose Route Start Last Admin Trade Name Freq PRN Reason Stop Dose Admin Acetaminophen 650 mg 02/07/21 10:38 02/07/21 16:29 Acetaminophen 325 Mg Tablet PO 650 mg Q6H PRN Administration Pain, Mild (Pain Scale 1-3) Hydrocodone Bitart/Acetaminophen 1 tab 02/07/21 16:24 02/07/21 20:20 Hydrocodone Bit/Acetam 7.5/325 Tablet PO 1 tab Q4H PRN Administration Pain Albuterol Sulfate 90 puff 02/08/21 08:00 02/08/21 07:50 Albuterol Sulfate 90 Mcg 8 Gm Inhaler INHALE Not Given RDAILY ROBERTO Albuterol/Ipratropium 3 ml 02/07/21 12:00 02/08/21 07:51 Albuterol/Iprat 2.5/0.5mg 3 Ml Ampul.Neb INHALE 3 ml RQ4H WHILE AWAKE ROBERTO Administration Albuterol/Ipratropium 3 ml 02/07/21 10:38 Albuterol/Iprat 2.5/0.5mg 3 Ml Ampul.Neb INHALE RQ4H PRN Shortness of Breath/Wheezing Alprazolam 0.5 mg 02/07/21 10:38 02/08/21 09:02 Alprazolam 0.5 Mg Tablet PO 0.5 mg TID PRN Administration Sleep Aspirin 81 mg 02/08/21 09:00 02/08/21 09:02 Aspirin Enteric Coated 81 Mg Tablet. PO 81 mg DAILY ROBERTO Administration Azithromycin 500 mg 02/07/21 12:00 02/07/21 13:47 Azithromycin 500 Mg Tablet PO Not Given Q24H ROBERTO Bupropion HCl 300 mg 02/08/21 09:00 02/08/21 09:15 Bupropion Hcl Xl 300 Mg Tab.Er.24h PO 300 mg DAILY ROBERTO Administration Diclofenac Sodium 75 mg 02/07/21 21:00 02/08/21 09:02 Diclofenac Sodium Delayed Rel 75 Mg Tablet.Dr PO 75 mg BID ROBERTO Administration Docusate Sodium 100 mg 02/07/21 10:38 Docusate Sodium 100 Mg Capsule PO DAILY PRN Constipation Enoxaparin Sodium 40 mg 02/07/21 12:00 02/07/21 11:36 Enoxaparin Sodium 40 Mg/0.4 Ml Syringe SUBCUT Not Given Q24H ROBERTO Furosemide 40 mg 02/07/21 10:00 02/08/21 09:02 Furosemide 40 Mg/4 Ml Vial IVPUSH 40 mg DAILY ROBERTO Administration Protocol Ceftriaxone Sodium 1 gm/ 50 mls @ 100 mls/hr 02/07/21 12:00 02/07/21 12:00 Sodium Chloride IV Infused Q24H ROBERTO Infusion Methylprednisolone Sodium Succinate 40 mg 02/07/21 18:00 02/08/21 06:04 Methylprednisolone Sod Succ 40 Mg/Ml Vial IVPUSH 40 mg Q12H ROBERTO Administration Ondansetron HCl 4 mg 02/07/21 10:38 Ondansetron Hcl 4 Mg/2 Ml Vial IVPUSH Q8H PRN Nausea and Vomiting Sodium Chloride 3 ml 02/07/21 16:00 02/08/21 07:26 0.9 % Sodium Chloride Flush 3 Ml Syringe IVFLUSH 3 ml QSHIFT ROBERTO Administration Time Spent With Patient Time: Total time spent is greater than 50% in coordination of care (as documented) at patient's floor/unit and/or counseling patient: Time with patient: less than 15 minutes Procedures Date of Service Date of Service: 02/08/21
--- NOTE | 2021-02-08 10:38 | CA_ITS ---
Transthoracic Echocardiogram Patient (Last, First, Middle): Susan Chan, Gender: Female Date of : 1945 Age: 75 Procedure Date: 02/08/2021 Procedure Type: Transthoracic Echocardiogram Location: [facility] [place] Height: 160.02 cm Weight: 77.11 kg BSA: 1.80 m2 Heart Rate: bpm BP: 134 / 68 mmHg [employer] Worker: [email or web address] Referring MD: Sona Barcenas MD Symptoms: chf Study Quality: Fair ECG Rhythm: Sinus Conclusions: - The left ventricular systolic function is moderate to severely decreased. The visually estimated ejection fraction is between 30-35%. - Globally hypokinetic, with regional variation. - The inferoseptal wall, the basal inferior, and mid inferior segments are akinetic. - There is mild to moderate aortic valve stenosis. There is mild to moderate aortic valve regurgitation. - There is moderate mitral annular calcification. There is mild mitral valve regurgitation. Findings Left Ventricle Mildly increased left ventricular cavity size. There is mildly increased left ventricular wall thickness. The left ventricular systolic function is moderate to severely decreased. The visually estimated ejection fraction is between 30-35%. The calculated ejection fraction is 33% by biplane method. Diastolic function is indeterminate on the basis of available data. Globally hypokinetic, with regional variation. Wall Motion Rest Echo Findings The inferoseptal wall, the basal inferior, and mid inferior segments are akinetic. Right Ventricle Normal right ventricular cavity size and systolic function. Atria The left atrium is moderately dilated. The right atrium is normal in size. Aortic Valve The aortic valve was not well visualized. There is moderate calcification of the aortic valve. There is mild to moderate aortic valve stenosis. The peak aortic velocity is 2.86 m/s with a calculated peak gradient of 33 mmHg. The mean gradient is 19 mmHg. The aortic valve area is 1.39 cm2. There is mild to moderate aortic valve regurgitation. Mitral Valve The posterior mitral leaflet has restricted mobility. There is moderate mitral annular calcification. There is mild mitral valve regurgitation. There is no mitral valve stenosis. Pulmonic Valve The pulmonic valve was not well visualized. Tricuspid Valve There is trace tricuspid valve regurgitation. The pulmonary artery systolic pressure is normal. Great Vessels The asc aorta is normal in size. Venous The inferior vena cava is normal in size and collapses greater than 50% with inspiration. Pericardium/Pleural There is a trivial pericardial effusion. Prior Study Comparison Changes noted compared to prior study dated: 11/27/2019. LVEF slightly lower than reported in prior study. Measurements 2D Linear Measurements IVSd: 1.09 0.6-0.9/0.6-1.0 cm LVIDd: 5.94 3.9-5.3/4.2-5.9 cm LVIDd Index: 3.30 2.4-3.2/2.2-3.1 cm/m2 LVIDs: 5.24 2.0-3.6 cm LVPWd: 1.09 0.7-1.1 cm Ao Root: 4.00 2.1-3.5 cm LA Diam: 3.70 2.7-3.8/3.0-4.0 cm LAIDs Index: 2.06 1.5-2.3 cm/m2 LV Mass: 338.83 67-162/88-224 g LV Mass Index: 188.24 43-95/49-115 g/m2 LVOT Diam: 2.00 3.0+(-)1.3 cm 2D Systolic Function EF 4C: 29.40 >55% EF 2C: 35.60 >55% EF BiP: 32.50 >55% Mitral Valve E'Lateral: 4.35 E'Medial: 5.00 Aortic Valve AoV Pk Juan: 2.86 AoV Mn Juan: 2.09 AoV VTI: 0.50 AoV Pk Grad: 33.00 Aov Mn Grad: 19.00 LUCIANA Cont.VTI: 1.39 AI Pk Juan: 4.61 AI [place]: 4.81 LVOT LVOT Pk Juan: 1.15 LVOT Mn Juan: 0.76 LVOT VTI: 0.22 LVOT Pk Grad: 5.00 LVOT Mn Grad: 3.00 LVOT Diam: 2.00 LVOT Area: 3.14 Diastolic Function E'Medial: 5.00 E' Laterial: 4.35 Tricuspid Valve TR Pk Juan: 1.82 TR Pk Grad: 13.00 RA Press: 3.00 RVSP: 16.00 Great Vessels Aorta Ao Root-2D: 4.00 2.0-3.7 cm Ao Asc: 3.60 2.1-3.4 cm Updated in Other Vendor System with Status of Final Manuel Perales MD electronically signed on 02/08/2021 5:02:44 PM with status of Final
--- NOTE | 2021-02-08 11:42 | P.CDIC_ITS ---
CDI Concurrent Query Service Date: 02/08/21 Documentation Clarification: Please clarify if you are treating a proba ble/suspected/likely or confirmed: COPD/Asthma Exacerbation Please specify if known Symptoms likely due to CHF, no wheezing to suggest COPD Provider Response: Other Other Diagnosis: CHF, unlikely related to COPD PLEASE DO NOT DELETE/MODIFY EXISTING CONTENT Additional information is needed in order to code to the highest accuracy and appropriate Severity of Illness (SOI). Please clarify the information noted below in your progress notes and discharge summary. Risk Factors/Clinical Indicators/Treatments PN: Asthma/COPD Patient former smoker, wheezing some cough, sputum production,dyspnea, will start IV Solumedrol, Dubneb p.r.n. and scheduled. CDS: Caro Salazar CCS, CDIS Contact Number: [phone] Please Review the information above and exercise your independent professional judgment in responding to the query. If you concur, pleas document in the PROGRESS NOTES and DISCHARGE SUMMARY. If you do not agree with the query, please document in the query above. THIS QUERY IS PART OF THE PERMANENT MEDICAL RECORD
--- NOTE | 2021-02-08 11:59 | MHC.CM.PN ---
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
[2021-02-08] MEDS: Azithromycin 500 MG TABLET PO (12:36)
[2021-02-08] MEDS: Enoxaparin Sodium 40 MG/0.4 ML SYRINGE SUBCUT (12:37)
[2021-02-08] MEDS: cefTRIAXone sodium 1 GM in 0.9 % Sodium Chloride 50 ML IV (12:38)
[2021-02-08] MEDS: HYDROcodone Bit/Acetam 7.5/325 TABLET 1 TAB PO ×2 (12:44→20:27)
[2021-02-08] MEDS: ondansetron HCL 4 MG/2 ML VIAL IVPUSH ×2 (12:45→20:35)
[2021-02-08] MEDS: Acetaminophen 325 MG TABLET 650 MG PO (14:38)
--- NOTE | 2021-02-08 16:34 | HO.PM.IMPN ---
Subjective Subjective Date of Service: 02/08/21 <Adriana Hanna NP - Last Filed: 02/08/21 16:40> 02/09/21 <Kranthi Stuart MD - Last Filed: 02/09/21 08:32> Interval History: Follow up CHF No sob or edema <Adriana Hanna NP - Last Filed: 02/08/21 16:40> Physical Exam Vital Signs: Vital Signs: Last Vital Signs Temp 98.1 F 02/08/21 15: Pulse 85 02/08/21 15:21 Resp 17 02/08/21 15:21 BP 114/57 L 02/08/21 15:21 Pulse Ox 97 02/08/21 15:21 Body Mass Index 30.1 <Adriana Hanna NP - Last Filed: 02/08/21 16:40> Appearing in no acute distress lung sounds are clear to auscultation heart regular rate rhythm, clear S1, S2 positive bowel sounds, abdomen is soft, nontender neuro patient is alert x3, no focal deficits <Adriana Hanna NP - Last Filed: 02/08/21 16:40> Objective Data Current Medications Generic Name Dose Route Start Last Admin Trade Name Freq PRN Reason Stop Dose Admin Acetaminophen 650 mg 02/07/21 10:38 02/08/21 14:38 Acetaminophen 325 Mg Tablet PO 650 mg Q6H PRN Administration Pain, Mild (Pain Scale 1-3) Hydrocodone Bitart/Acetaminophen 1 tab 02/07/21 16:24 02/08/21 12:44 Hydrocodone Bit/Acetam 7.5/325 Tablet PO 1 tab Q4H PRN Administration Pain Albuterol Sulfate 90 puff 02/08/21 08:00 02/08/21 07:50 Albuterol Sulfate 90 Mcg 8 Gm Inhaler INHALE Not Given RDAILY ROBERTO Albuterol/Ipratropium 3 ml 02/07/21 12:00 02/08/21 15:41 Albuterol/Iprat 2.5/0.5mg 3 Ml Ampul.Neb INHALE 3 ml RQ4H WHILE AWAKE ROBERTO Administration Albuterol/Ipratropium 3 ml 02/07/21 10:38 Albuterol/Iprat 2.5/0.5mg 3 Ml Ampul.Neb INHALE RQ4H PRN Shortness of Breath/Wheezing Alprazolam 0.5 mg 02/07/21 10:38 02/08/21 09:02 Alprazolam 0.5 Mg Tablet PO 0.5 mg TID PRN Administration Sleep Aspirin 81 mg 02/08/21 09:00 02/08/21 09:02 Aspirin Enteric Coated 81 Mg Tablet. PO 81 mg DAILY ROBERTO Administration Azithromycin 500 mg 02/07/21 12:00 02/08/21 12:36 Azithromycin 500 Mg Tablet PO 500 mg Q24H ROBERTO Administration Bupropion HCl 300 mg 02/08/21 09:00 02/08/21 09:15 Bupropion Hcl Xl 300 Mg Tab.Er.24h PO 300 mg DAILY ROBERTO Administration Diclofenac Sodium 75 mg 02/07/21 21:00 02/08/21 09:02 Diclofenac Sodium Delayed Rel 75 Mg Tablet. PO 75 mg BID ROBERTO Administration Docusate Sodium 100 mg 02/07/21 10:38 Docusate Sodium 100 Mg Capsule PO DAILY PRN Constipation Enoxaparin Sodium 40 mg 02/07/21 12:00 02/08/21 12:37 Enoxaparin Sodium 40 Mg/0.4 Ml Syringe SUBCUT 40 mg Q24H ROBERTO Administration Furosemide 40 mg 02/07/21 10:00 02/08/21 09:02 Furosemide 40 Mg/4 Ml Vial IVPUSH 40 mg DAILY ROBERTO Administration Protocol Ceftriaxone Sodium 1 gm/ 50 mls @ 100 mls/hr 02/07/21 12:00 02/08/21 13:16 Sodium Chloride IV Infused Q24H ROBERTO Infusion Methylprednisolone Sodium Succinate 40 mg 02/07/21 18:00 02/08/21 06:04 Methylprednisolone Sod Succ 40 Mg/Ml Vial IVPUSH 40 mg Q12H ROBERTO Administration Ondansetron HCl 4 mg 02/07/21 10:38 02/08/21 12:45 Ondansetron Hcl 4 Mg/2 Ml Vial IVPUSH 4 mg Q8H PRN Administration Nausea and Vomiting Sodium Chloride 3 ml 02/07/21 16:00 02/08/21 07:26 0.9 % Sodium Chloride Flush 3 Ml Syringe IVFLUSH 3 ml QSHIFT ROBERTO Administration <Adriana Hanna NP - Last Filed: 02/08/21 16:40> Labs CBC & Chem 7: : 02/08/21 05:37 02/09/21 05:20 <Adriana Hanna NP - Last Filed: 02/08/21 16:40> Microbiology Microbiology Results: Microbiology 02/07/21 05:40 Blood - Venous Blood Culture - Preliminary No growth after 24 hours. 02/07/21 05:40 Blood - Venous Blood Culture - Preliminary No growth after 24 hours. <Adriana Hanna NP - Last Filed: 02/08/21 16:40> Assessment and Plan (1) Acute on chronic heart failure: Status: Acute <Adriana Hanna NP - Last Filed: 02/08/21 16:40> Assessment and Plan: This is a 75-year-old female with past medical history of asthma who presents to the hospital with shortness of breath cough and sputum production found to have pneumonia and elevated BNP CHF exacerbation. No previous hx, EKG showing possible left atrial and ventricular hypertrophy BNP 601, no hypoxia or leg edema - seen and evaluated by Cardiology - IV Lasix - echocardiogram Community-acquired pneumonia. Has right lower lobe patchy infiltrate - obtain chest CT to confirm - treat with IV antibiotics for now - add mucinex for dry cough - follow cultures Asthma/COPD. NO EXACERBATION - duo nebs as needed Chronic pain - continue hydrocodone-acetaminophen DVT prophylaxis with lovenox Attending: Dr. Stuart Full code <Adriana Hanna NP - Last Filed: 02/08/21 16:40>
[2021-02-08] MEDS: guaiFENesin LA 600 MG TAB.ER.12H PO (17:05)
[2021-02-09] VITALS (7 sets, daily range): BP systolic 104–120; BP diastolic 49–57; PULSE 76–102; RESP 18–20; TEMP 36.2–36.8; O2SAT 88–98
[2021-02-09] MEDS: ALPRAZolam 0.5 MG TABLET PO ×2 (00:56→16:15)
[2021-02-09 07:11] LABS: B Type Natriuretic Peptide 169 pg/mL (<100)
[2021-02-09 07:21] LABS: Anion Gap 13 (12-20); Blood Urea Nitrogen 40 mg/dL (9-16); Calcium 8.6 mg/dL (8.4-10.2); Carbon Dioxide 30 mmol/L (22-29); Chloride 104 mmol/L (96-108); Creatinine Clr Calc Pharmacy 43.5; Estimated Glomerular Filt Rate 49; Glucose Random 76 mg/dL (60-115); Potassium 3.8 mmol/L (3.3-5.1); Sodium 143 mmol/L (135-145)
[2021-02-09] MEDS: 0.9 % Sodium Chloride Flush 3 ML SYRINGE IVFLUSH ×3 (07:42→20:26)
[2021-02-09] MEDS: Diclofenac Sodium Delayed Rel 75 MG TABLET.DR PO ×2 (08:00→20:25)
[2021-02-09] MEDS: buPROPion HCl XL 300 MG TAB.ER.24H PO (08:00)
[2021-02-09] MEDS: Furosemide 40 MG/4 ML VIAL IVPUSH (08:00)
[2021-02-09] MEDS: Aspirin Enteric Coated 81 MG TABLET.DR PO (08:01)
[2021-02-09] MEDS: HYDROcodone Bit/Acetam 7.5/325 TABLET 1 TAB PO ×2 (08:01→20:26)
[2021-02-09] MEDS: guaiFENesin LA 600 MG TAB.ER.12H PO (08:02)
--- NOTE | 2021-02-09 08:02 | HO.PM.IMPN ---
Subjective Subjective Date of Service: 02/10/21 Interval History: Follow up CHF No sob or edema Physical Exam Vital Signs: Vital Signs: Last Vital Signs Temp 97.1 F 02/09/21 07:35 Pulse 76 02/09/21 07:35 Resp 20 02/09/21 07:35 BP 110/55 L 02/09/21 07:35 Pulse Ox 98 02/09/21 07:35 Body Mass Index 30.1 Appearing in no acute distress lung sounds diminished heart regular rate rhythm, clear S1, S2 positive bowel sounds, abdomen is soft, nontender neuro patient is alert x3, no focal deficits Objective Data Current Medications Generic Name Dose Route Start Last Admin Trade Name Freq PRN Reason Stop Dose Admin Acetaminophen 650 mg 02/07/21 10:38 02/08/21 14:38 Acetaminophen 325 Mg Tablet PO 650 mg Q6H PRN Administration Pain, Mild (Pain Scale 1-3) Hydrocodone Bitart/Acetaminophen 1 tab 02/07/21 16:24 02/08/21 20:27 Hydrocodone Bit/Acetam 7.5/325 Tablet PO 1 tab Q4H PRN Administration Pain Albuterol Sulfate 90 puff 02/08/21 08:00 02/09/21 07:07 Albuterol Sulfate 90 Mcg 8 Gm Inhaler INHALE Not Given RDAILY ROBERTO Albuterol/Ipratropium 3 ml 02/07/21 10:38 Albuterol/Iprat 2.5/0.5mg 3 Ml Ampul.Neb INHALE RQ4H PRN Shortness of Breath/Wheezing Alprazolam 0.5 mg 02/07/21 10:38 02/09/21 00:56 Alprazolam 0.5 Mg Tablet PO 0.5 mg TID PRN Administration Sleep Aspirin 81 mg 02/08/21 09:00 02/08/21 09:02 Aspirin Enteric Coated 81 Mg Tablet. PO 81 mg DAILY ROBERTO Administration Bupropion HCl 300 mg 02/08/21 09:00 02/08/21 09:15 Bupropion Hcl Xl 300 Mg Tab.Er.24h PO 300 mg DAILY ROBERTO Administration Diclofenac Sodium 75 mg 02/07/21 21:00 02/08/21 20:22 Diclofenac Sodium Delayed Rel 75 Mg Tablet. PO 75 mg BID ROBERTO Administration Docusate Sodium 100 mg 02/07/21 10:38 Docusate Sodium 100 Mg Capsule PO DAILY PRN Constipation Enoxaparin Sodium 40 mg 02/07/21 12:00 02/08/21 12:37 Enoxaparin Sodium 40 Mg/0.4 Ml Syringe SUBCUT 40 mg Q24H ROBERTO Administration Furosemide 40 mg 02/07/21 10:00 02/09/21 08:00 Furosemide 40 Mg/4 Ml Vial IVPUSH 40 mg DAILY ROBERTO Administration Protocol Guaifenesin 600 mg 02/08/21 16:40 02/08/21 17:05 Guaifenesin La 600 Mg Tab.Er.12h PO 600 mg BID PRN Administration dry cough Ondansetron HCl 4 mg 02/07/21 10:38 02/08/21 20:35 Ondansetron Hcl 4 Mg/2 Ml Vial IVPUSH 4 mg Q8H PRN Administration Nausea and Vomiting Sodium Chloride 3 ml 02/07/21 16:00 02/09/21 07:42 0.9 % Sodium Chloride Flush 3 Ml Syringe IVFLUSH 3 ml QSHIFT ROBERTO Administration Labs CBC & Chem 7: 02/08/21 05:37 02/09/21 05:20 Microbiology Microbiology Results: Microbiology 02/07/21 05:40 Blood - Venous Blood Culture - Preliminary No growth after 48 hours. 02/07/21 05:40 Blood - Venous Blood Culture - Preliminary No growth after 48 hours. Assessment and Plan (1) Acute on chronic heart failure: Status: Acute Assessment and Plan: This is a 75-year-old female with past medical history of asthma who presents to the hospital with shortness of breath cough and sputum production found to have pneumonia and elevated BNP HFrEF. No previous hx, EF 30-35% with global hypokinesis. BNP 601, no hypoxia or leg edema - seen and evaluated by Cardiology - IV Lasix - Add Toprol 12.5mg - Will need further op cardio workup Community-acquired pneumonia. Initially thought on admission. No PNA noted on CT - Antibiotics stopped - add mucinex for dry cough Emphysema. No exacerbation - duo nebs as needed Chronic pain - continue hydrocodone-acetaminophen DVT prophylaxis with lovenox Attending: Dr. Stuart Full code
[2021-02-09] MEDS: ondansetron HCL 4 MG/2 ML VIAL IVPUSH (09:46)
--- NOTE | 2021-02-09 11:06 | PM.PNCARD ---
Subjective Subjective Date of Service: 02/09/21 Interval history: She states that she is feeling much better. Shortness of breath improved. No angina. Review of Systems Review of Systems Yes all other systems are reviewed and are negative Cardiovascular: Reports as per HPI, Reports no additional cardiovascular complaints, Denies acrocyanosis, Denies cool extremities, Denies painful fingertips, Denies chest pain, Denies chest pain at rest, Denies diaphoresis, Denies syncope, Denies irregular heart rhythm, Denies claudication, Denies leg edema, Denies lightheadedness, Denies palpitations and Reports dyspnea Respiratory: Reports dyspnea Denies syncope Endocrine: Denies palpitations Physical Exam Vital Signs: Last Vital Signs Temp 97.1 F 02/09/21 11:03 Pulse 96 02/09/21 11:03 Resp 20 02/09/21 11:03 BP 120/57 L 02/09/21 11:03 Pulse Ox 91 L 02/09/21 11:03 Body Mass Index 30.1 Const General: cooperative, comfortable and no acute distress Orientation/consciousness: patient oriented x3 HENPR Other: Unremarkable Neck Neck: Yes normal visual inspection Chest Chest palpation & inspection: normal inspection of the chest Resp Auscultation: clear to auscultation bilaterally, no crackles and no wheezes Cardio Jugular venous distension: no JVD Palpation: normal PMI Heart sounds: S1 normal heart sound present, S2 normal heart sound present, no gallops, Murmur heart sound present systolic (3/6 CONCEPCION aortic area, 3/6 HSM apex) and no rubs GI Palpation (GI): Soft to palpation Back/Spine/Pelvis Other: unremarkable Skin General skin exam: no rashes or lesions noted Neuro General: patient oriented x3 Extrem General: Yes no clubbing, cyanosis or edema Psych Mental Status: mental status grossly normal Results Labs and Meds Result diagrams: 02/08/21 05:37 02/09/21 05:20 Lab results: Laboratory Results - last 24 hr 02/09/21 02/09/21 05:20 05:20 Sodium 143 Potassium 3.8 Chloride 104 Carbon Dioxide 30 H Anion Gap 13 BUN 40 H Creatinine 1.08 Estim Creat Clear Calc 43.5 Estimated GFR 49 Random Glucose 76 Calcium 8.6 B-Natriuretic Peptide 169 H Imaging Radiologist's impression: Impressions Chest CT 02/08/21 18:21 IMPRESSION: 1. Mild emphysema. 2. Mild bibasilar compressive atelectasis. 3. A few tiny pulmonary nodules are present, largest measuring approximately 3 mm. 4. Mildly dilated ascending aorta measuring up to 4.1 cm. According to the UPDATED 2017 Fleischner Society recommendations, the advised follow-up imaging for solid nodules < 6 mm is: LOW RISK PATIENT: No routine follow-up. HIGH RISK PATIENT: Optional CT at 12 months. Progress Note: A&P Assessment and plan (1) Acute on chronic systolic (congestive) heart failure: Status: Acute (2) Non-rheumatic aortic stenosis: Status: Acute (3) Non-rheumatic mitral regurgitation: Status: Acute (4) Mitral annular calcification: Status: Acute (5) COPD (chronic obstructive pulmonary disease): Status: Acute Assessment and Plan: EKG with left ventricular hypertrophy and strain type pattern. Chest x-ray reported to have patchy right basilar opacity which may represent pneumonia or aspiration. BNP is elevated to 601. 30-35%. Globally hypokinetic but there is inferior akinesis. There is also [id number] aortic stenosis and mild mitral regurgitation and aortic regurgitation. She needs ischemia workup as an outpatient. May need cardiac catheterization. Diuretics to be continued orally. Low-dose beta-blockers. If blood pressure tolerates, eventually CARMEN inhibitors or Entresto. We will arrange outpatient follow-up. Fall Risk Details Current Medications: Current Medications Generic Name Dose Route Start Last Admin Trade Name Freq PRN Reason Stop Dose Admin Acetaminophen 650 mg 02/07/21 10:38 02/08/21 14:38 Acetaminophen 325 Mg Tablet PO 650 mg Q6H PRN Administration Pain, Mild (Pain Scale 1-3) Hydrocodone Bitart/Acetaminophen 1 tab 02/07/21 16:24 02/09/21 08:01 Hydrocodone Bit/Acetam 7.5/325 Tablet PO 1 tab Q4H PRN Administration Pain Albuterol Sulfate 90 puff 02/08/21 08:00 02/09/21 07:07 Albuterol Sulfate 90 Mcg 8 Gm Inhaler INHALE Not Given RDAILY ROBERTO Albuterol/Ipratropium 3 ml 02/07/21 10:38 Albuterol/Iprat 2.5/0.5mg 3 Ml Ampul.Neb INHALE RQ4H PRN Shortness of Breath/Wheezing Alprazolam 0.5 mg 02/07/21 10:38 02/09/21 00:56 Alprazolam 0.5 Mg Tablet PO 0.5 mg TID PRN Administration Sleep Aspirin 81 mg 02/08/21 09:00 02/09/21 08:01 Aspirin Enteric Coated 81 Mg Tablet. PO 81 mg DAILY ROBERTO Administration Bupropion HCl 300 mg 02/08/21 09:00 02/09/21 08:00 Bupropion Hcl Xl 300 Mg Tab.Er.24h PO 300 mg DAILY ROBERTO Administration Diclofenac Sodium 75 mg 02/07/21 21:00 02/09/21 08:00 Diclofenac Sodium Delayed Rel 75 Mg Tablet. PO 75 mg BID ROBERTO Administration Docusate Sodium 100 mg 02/07/21 10:38 Docusate Sodium 100 Mg Capsule PO DAILY PRN Constipation Enoxaparin Sodium 40 mg 02/07/21 12:00 02/08/21 12:37 Enoxaparin Sodium 40 Mg/0.4 Ml Syringe SUBCUT 40 mg Q24H ROBERTO Administration Furosemide 40 mg 02/07/21 10:00 02/09/21 08:00 Furosemide 40 Mg/4 Ml Vial IVPUSH 40 mg DAILY ROBERTO Administration Protocol Guaifenesin 600 mg 02/08/21 16:40 02/09/21 08:02 Guaifenesin La 600 Mg Tab.Er.12h PO 600 mg BID PRN Administration dry cough Ondansetron HCl 4 mg 02/07/21 10:38 02/09/21 09:46 Ondansetron Hcl 4 Mg/2 Ml Vial IVPUSH 4 mg Q8H PRN Administration Nausea and Vomiting Sodium Chloride 3 ml 02/07/21 16:00 02/09/21 07:42 0.9 % Sodium Chloride Flush 3 Ml Syringe IVFLUSH 3 ml QSHIFT ROBERTO Administration Time Spent With Patient Time: Total time spent is greater than 50% in coordination of care (as documented) at patient's floor/unit and/or counseling patient: Time with patient: less than 15 minutes Procedures Date of Service Date of Service: 02/09/21
[2021-02-09] MEDS: Enoxaparin Sodium 40 MG/0.4 ML SYRINGE SUBCUT (12:53)
[2021-02-09] MEDS: Albuterol/Iprat 2.5/0.5MG 3 ML AMPUL.NEB INHALE (16:22)
[2021-02-10] VITALS (8 sets, daily range): BP systolic 94–110; BP diastolic 44–58; PULSE 68–101; RESP 16–18; TEMP 36.4–37.1; O2SAT 87–98
[2021-02-10] MEDS: ALPRAZolam 0.5 MG TABLET PO ×2 (00:54→09:27)
[2021-02-10] MEDS: ondansetron HCL 4 MG/2 ML VIAL IVPUSH (04:03)
[2021-02-10] MEDS: Albuterol/Iprat 2.5/0.5MG 3 ML AMPUL.NEB INHALE (07:20)
[2021-02-10] MEDS: Metoprolol Succinate ER 12.5 MG HALFTAB.ER.24H PO (08:59)
[2021-02-10] MEDS: HYDROcodone Bit/Acetam 7.5/325 TABLET 1 TAB PO (09:00)
[2021-02-10] MEDS: Diclofenac Sodium Delayed Rel 75 MG TABLET.DR PO (09:01)
[2021-02-10] MEDS: Furosemide 40 MG TABLET PO (09:01)
[2021-02-10] MEDS: buPROPion HCl XL 300 MG TAB.ER.24H PO (09:02)
[2021-02-10] MEDS: Aspirin Enteric Coated 81 MG TABLET.DR PO (09:02)
[2021-02-10] MEDS: 0.9 % Sodium Chloride Flush 3 ML SYRINGE IVFLUSH (09:02)
--- NOTE | 2021-02-10 10:52 | P.DS_ITS ---
DS: Providers Provider Date of Service: 02/13/21 <Adriana Hanna NP - Last Filed: 02/13/21 18:09> 02/19/21 <Talya Adhikari MD - Last Filed: 02/19/21 09:57> Date of admission: 02/07/21 09:45 <Adriana Hanna NP - Last Filed: 02/13/21 18:09> Date of discharge: 02/10/21 <Adriana Hanna NP - Last Filed: 02/13/21 18:09> Primary care physician: Unknown Physician <Adriana Hanna NP - Last Filed: 02/13/21 18:09> Admitting clinician: Sona Barcenas <Adriana Hanna NP - Last Filed: 02/13/21 18:09> Attending physician on admission: Sona Barcenas <Adriana Hanna NP - Last Filed: 02/13/21 18:09> Consults: 02/07/21 09:42 Consult to Cardiology Routine Consulting Provider: Joel Giordano Reason for consultation: chf Has provider been notified: No <Adriana Hanna NP - Last Filed: 02/13/21 18:09> Attending physician on discharge: Talya Adhikari <Adriana Hanna NP - Last Filed: 02/13/21 18:09> Discharging clinician: Adriana Hanna <Adriana Hanna NP - Last Filed: 02/13/21 18:09> DS: Diagnosis Discharge Diagnosis (1) Heart failure with reduced ejection fraction: Status: Acute <Adriana Hanna NP - Last Filed: 02/13/21 18:09> (2) Emphysema lung: Status: Acute <Adriana Hanna NP - Last Filed: 02/13/21 18:09> DS: Medications Discharge Medications Home Medications: Home Medications Medication Instructions Recorded Confirmed albuterol sulfate [ProAir HFA] 90 inh INHALATION DAILY 12/07/20 02/07/21 alprazolam 1 tab PO TID PRN 12/07/20 02/07/21 aspirin [Aspir-81] 81 mg PO DAILY 12/07/20 02/07/21 bupropion HCl 1 tab PO BID 12/07/20 02/07/21 diclofenac sodium 1 tab PO BID 12/07/20 02/07/21 hydrocodone-acetaminophen 1 tab PO TID PRN 12/07/20 02/07/21 biotin 1 mg PO DAILY 02/07/21 02/07/21 cholecalciferol (vitamin D3) 1,000 unit 02/07/21 [Vitamin D3] vitamin A unit PO 02/07/21 vitamin H21-ferxx acid 1 tab PO 02/07/21 Previous Rx's Medication Instructions Recorded ondansetron HCl [Zofran] 4 mg PO BID PRN #60 tab 12/08/20 <Adriana Hanna NP - Last Filed: 02/13/21 18:09> DS: Summary Hospital Course Hospital Course: HP as per admitting provider This is a 75-year-old female with past medical history of asthma, anxiety, GERD, who presents to the hospital with complaints of shortness of breath, cough, and sputum production. Patient reports that her symptoms started 2-3 days ago where she started feeling congested, she has no fever no chills, she had minimal wheezing yesterday but resolved. She has some nausea with no vomiting. She has had loose bowels for 3 days, she was on antibiotics from 01/25 for 5 days for dental procedure, and had an episode of bronchial pneumonia about few months ago where she was treated with p.o. antibiotics for few days but reports that she did not complete her course due to the antibiotics causing her constipation. She denies any abdominal pain, no urinary symptoms and no lower extremity edema. No chest pain, no palpitations. No headache or change in vision and no weakness numbness or tingling.On arrival to the ED hemodynamically stable with vitals significant for temperature of 98.2?, heart rate of 108, respiratory rate of 24, blood pressure 130/76, satting 93% on room air. Labs are significant for WBC count 11.4, hemoglobin of 10.5, pH of 7.32, CO2 of 54, sodium of 146, chloride of 111, BUN of 24, creatinine of 0.92, AST of 79, ALT of 114, BNP of 601, COVID-19 negative EKG shows normal sinus rhythm with possible left atrial enlargement and left ventricular hypertrophy, number specific ST T-wave abnormality. Chest x- ray significant for patchy right basilar opacity which may represent pneumonia or aspiration in the proper clinical setting. Past medical history as below lung confirmed with patient . Heart failure with reduced ejection fraction. Patient initially presented with shortness of breath and cough. BNP was elevated at 601 with no previous history of heart failure. EKG showed left ventricular hypertrophy. Subsequent echocardiogram showed EF of 30-35% with global hypokinesis, inferior septal wall, basal inferior and mid inferior segment akinetic with mild to moderate aortic valve stenosis. She was diuresed with IV Lasix then transition to Lasix 40 mg oral daily, she will continue this at home. She was started on low-dose beta-umberto metoprolol 12.5 mg daily. She will be referred to [facility] for outpatient cardiac workup. COPD/emphysema. Initially treated with IV steroids and scheduled DuoNebs. Steroids were subsequently discontinued as patient had no wheezing or shortness of breath. She was found to be hypoxic especially with ambulation with her oxygen saturation going down to 88% on room air. Home O2 evaluation was completed and she will go home on oxygen and follow-up with her primary care provider and or a dictaphone transcriber for further pulmonary evaluation. She will continue with her albuterol inhaler. <Adriana Hanna NP - Last Filed: 02/13/21 18:09> Time Spent with Patient Time attestation: Total time spent providing and/or coordinating discharge services: <Adriana Hanna NP - Last Filed: 02/13/21 18:09> Discharge coordination time: Greater than 30 minutes <Adriana Hanna NP - Last Filed: 02/13/21 18:09> Quality: Stroke Does the patient have a stroke diagnosis?: No <Adriana Hanna NP - Last Filed: 02/13/21 18:09> Physical Exam Vital Signs: Vital Signs: Last Vital Signs Temp 98.4 F 02/10/21 07:12 Pulse 72 02/10/21 08:59 Resp 18 02/10/21 07:12 BP 110/58 L 02/10/21 08:59 Pulse Ox 91 L 02/10/21 08:51 Body Mass Index 30.1 <Adriana Hanna NP - Last Filed: 02/13/21 18:09> Appearing in no acute distress head is normocephalic atraumatic eyes pupils are PERRLA sclera is anicteric mouth throat mucous membranes are intact and moist neck is supple no lymphadenopathy, no JVD noted lung sounds are clear to auscultation heart regular rate rhythm, clear S1, S2 positive bowel sounds, abdomen is soft, nontender neuro patient is alert x3, no focal deficits <Adriana Hanna NP - Last Filed: 02/13/21 18:09> DS: Data Data Completed and Pending Labs on day of discharge: Preliminary micro results at discharge 02/07/21 05:40 Blood Culture - Preliminary Blood - Venous No growth after 48 hours. 02/07/21 05:40 Blood Culture - Preliminary Blood - Venous No growth after 48 hours. <Adriana Hanna NP - Last Filed: 02/13/21 18:09> Discharge Plan Discharge Anticipated Discharge Date/Time: 02/10/21 10:30 <Adriana Hanna NP - Last Filed: 02/13/21 18:09> Patient Disposition: Home, Self-Care <Adriana Hanna NP - Last Filed: 02/13/21 18:09> Discharge Diagnosis: Acute heart failure with reduced ejection fraction COPD exacerbation <Adriana Hanna NP - Last Filed: 02/13/21 18:09> Acute heart failure with reduced ejection fraction COPD exacerbation <Talya Adhikari MD - Last Filed: 02/19/21 09:57> Referrals: aki visiting nurse [Other] - 1 Week Andreas Hanna MD [Physician] - None Manuel Perales MD [Physician] - None <Adriana Hanna NP - Last Filed: 02/13/21 18:09> Discharge Medications: New furosemide 40 mg Tablet 40 mg PO DAILY Qty: 30 RF: 0 metoprolol succinate [Toprol XL] 25 mg tablet extended release 24 hr 12.5 mg PO DAILY Qty: 30 RF: 0 Continued bupropion HCl 150 mg tablet sustained-release 12 hr 1 tab PO BID RF: 0 aspirin 81 mg Tablet,Delayed Release (Dr/Ec) 81 mg PO DAILY RF: 0 alprazolam 0.5 mg tablet 1 tab PO TID PRN (Reason: Sleep) RF: 0 hydrocodone-acetaminophen 7.5-325 mg tablet 1 tab PO TID PRN (Reason: Pain) RF: 0 diclofenac sodium 75 mg tablet,delayed release (DR/EC) 1 tab PO BID RF: 0 albuterol sulfate [ProAir HFA] 90 mcg/actuation HFA aerosol inhaler 90 inh inhalation DAILY RF: 0 ondansetron HCl [Zofran] 4 mg Tablet 4 mg PO BID PRN (Reason: Nausea) Qty: 60 RF: 0 vitamin A 5,000 unit/0.1 mL Drops PO RF: 0 biotin 500 mcg Capsule 1 mg PO DAILY RF: 0 cholecalciferol (vitamin D3) [Vitamin D3] 25 mcg (1,000 unit) Capsule 1,000 unit RF: 0 vitamin I35-wvzfc acid 0.5-1 mg Tablet 1 tab PO RF: 0 <Adriana Hanna NP - Last Filed: 02/13/21 18:09> Discharge Orders: Discharge Order (Routine); Ordered 02/10/21 Ordered By: Adriana Hanna <Adriana Hanna NP - Last Filed: 02/13/21 18:09> Diet: advance to usual diet <Adriana Hanna NP - Last Filed: 02/13/21 18:09> advance to usual diet <Talya Adhikari MD - Last Filed: 02/19/21 09:57> Activity on Discharge: As tolerated <Adriana Hanna NP - Last Filed: 02/13/21 18:09> As tolerated <Talya Adhikari MD - Last Filed: 02/19/21 09:57> Stand Alone Forms: Patient Portal Discharge page <Adriana Hanna NP - Last Filed: 02/13/21 18:09> Care Plan Goals: Improvement of new diagnosis of congestive heart failure <Adriana Hanna NP - Last Filed: 02/13/21 18:09> Health Concerns: Acute heart failure with reduced ejection fraction COPD/emphysema <Adriana Hanna NP - Last Filed: 02/13/21 18:09> Plan of Treatment: Please follow-up with your primary care provider for further workup and referral for COPD/emphysema, You will be going home with home oxygen Please follow-up with a provider engagement executive, one will be referred to you however you can follow-up with a provider engagement executive of your choosing. Do not smoke or let others smoke while you are using oxygen. Put up no smoking signs in your home. Do not use oxygen near open flames, such as candles, fireplaces, gas stoves, or hot water heaters. Do not use it near electric razors, hair dryers, heating pads, or anything that may spark. Keep a working fire extinguisher in your home where it is easy to get to. <Adriana Hanna NP - Last Filed: 02/13/21 18:09> Assessment: See discharge summary <Adriana Hanna NP - Last Filed: 02/13/21 18:09> Discharge Date/Time: 02/10/21 17:58 <Adriana Hanna NP - Last Filed: 02/13/21 18:09>
--- NOTE | 2021-02-10 11:17 | MHC.CM.PN ---
pt dcd home no skilled servceis ordered by pt has own transport home
--- NOTE | 2021-02-10 12:41 | P.PNCA_ITS ---
Subjective Subjective Date of Service: 02/10/21 Interval history: No new complaints. Feels better. Review of Systems Review of Systems Yes all other systems are reviewed and are negative Cardiovascular: Reports as per HPI, Reports no additional cardiovascular complaints, Denies acrocyanosis, Denies cool extremities, Denies painful fingertips, Denies chest pain, Denies chest pain at rest, Denies diaphoresis, Denies syncope, Denies irregular heart rhythm, Denies claudication, Denies leg edema, Denies lightheadedness, Denies palpitations and Reports dyspnea Respiratory: Reports dyspnea Denies syncope Endocrine: Denies palpitations Physical Exam Vital Signs: Last Vital Signs Temp 98.8 F 02/10/21 11:32 Pulse 76 02/10/21 11:32 Resp 16 02/10/21 11:32 BP 104/53 L 02/10/21 11:32 Pulse Ox 96 02/10/21 11:32 Body Mass Index 30.1 Const General: cooperative, comfortable and no acute distress Orientation/consciousness: patient oriented x3 HENMT Other: Unremarkable Neck Neck: Yes normal visual inspection Chest Chest palpation & inspection: normal inspection of the chest Resp Auscultation: clear to auscultation bilaterally, no crackles and no wheezes Cardio Jugular venous distension: no JVD Palpation: normal PMI Heart sounds: S1 normal heart sound present, S2 normal heart sound present, no gallops, Murmur heart sound present systolic (3/6 CONCEPCION aortic area, 3/6 HSM apex) and no rubs GI Palpation (GI): Soft to palpation Back/Spine/Pelvis Other: unremarkable Skin General skin exam: no rashes or lesions noted Neuro General: patient oriented x3 Extrem General: Yes no clubbing, cyanosis or edema Psych Mental Status: mental status grossly normal Results Labs and Meds Result diagrams: 02/08/21 05:37 02/09/21 05:20 Progress Note: A&P Assessment and plan (1) Acute on chronic systolic (congestive) heart failure: Status: Acute (2) Non-rheumatic aortic stenosis: Status: Acute (3) Non-rheumatic mitral regurgitation: Status: Acute (4) Mitral annular calcification: Status: Acute (5) COPD (chronic obstructive pulmonary disease): Status: Acute Assessment and Plan: EKG with left ventricular hypertrophy and strain type pattern. Chest x-ray reported to have patchy right basilar opacity which may represent pneumonia or a spiration. BNP is elevated to 601. LVEF 30-35%. Globally hypokinetic but there is inferior akinesis. There is also [id number] aortic stenosis and mild mitral regurgitation and aortic regurgitation. She needs ischemia workup as an outpatient. May need cardiac catheterization. Diuretics to be continued orally. Low-dose beta-blockers. If blood pressure tolerates, eventually CARMEN inhibitors or Entresto. We will arrange outpatient follow-up. Fall Risk Details Current Medications: Current Medications Generic Name Dose Route Start Last Admin Trade Name Freq PRN Reason Stop Dose Admin Acetaminophen 650 mg 02/07/21 10:38 02/08/21 14:38 Acetaminophen 325 Mg Tablet PO 650 mg Q6H PRN Administration Pain, Mild (Pain Scale 1-3) Hydrocodone Bitart/Acetaminophen 1 tab 02/07/21 16:24 02/10/21 09:00 Hydrocodone Bit/Acetam 7.5/325 Tablet PO 1 tab Q4H PRN Administration Pain Albuterol Sulfate 90 puff 02/08/21 08:00 02/10/21 07:44 Albuterol Sulfate 90 Mcg 8 Gm Inhaler INHALE Not Given RDAILY ROBERTO Albuterol/Ipratropium 3 ml 02/07/21 10:38 02/10/21 07:20 Albuterol/Iprat 2.5/0.5mg 3 Ml Ampul.Neb INHALE 3 ml RQ4H PRN Administration Shortness of Breath/Wheezing Alprazolam 0.5 mg 02/07/21 10:38 02/10/21 09:27 Alprazolam 0.5 Mg Tablet PO 0.5 mg TID PRN Administration Sleep Aspirin 81 mg 02/08/21 09:00 02/10/21 09:02 Aspirin Enteric Coated 81 Mg Tablet. PO 81 mg DAILY ROBERTO Administration Bupropion HCl 300 mg 02/08/21 09:00 02/10/21 09:02 Bupropion Hcl Xl 300 Mg Tab.Er.24h PO 300 mg DAILY ROBERTO Administration Diclofenac Sodium 75 mg 02/07/21 21:00 02/10/21 09:01 Diclofenac Sodium Delayed Rel 75 Mg Tablet. PO 75 mg BID ROBERTO Administration Docusate Sodium 100 mg 02/07/21 10:38 Docusate Sodium 100 Mg Capsule PO DAILY PRN Constipation Enoxaparin Sodium 40 mg 02/07/21 12:00 02/09/21 12:53 Enoxaparin Sodium 40 Mg/0.4 Ml Syringe SUBCUT 40 mg Q24H ROBERTO Administration Furosemide 40 mg 02/10/21 09:00 02/10/21 09:01 Furosemide 40 Mg Tablet PO 40 mg DAILY ROBERTO Administration Protocol Guaifenesin 600 mg 02/08/21 16:40 02/09/21 08:02 Guaifenesin La 600 Mg Tab.Er.12h PO 600 mg BID PRN Administration dry cough Metoprolol Succinate 12.5 mg 02/10/21 09:00 02/10/21 08:59 Metoprolol Succinate Er 12.5 Mg Halftab.Er.24h PO 12.5 mg DAILY ROBERTO Administration Protocol Ondansetron HCl 4 mg 02/07/21 10:38 02/10/21 04:03 Ondansetron Hcl 4 Mg/2 Ml Vial IVPUSH 4 mg Q8H PRN Administration Nausea and Vomiting Sodium Chloride 3 ml 02/07/21 16:00 02/10/21 09:02 0.9 % Sodium Chloride Flush 3 Ml Syringe IVFLUSH 3 ml QSHIFT ROBERTO Administration Time Spent With Patient Time: Total time spent is greater than 50% in coordination of care (as documented) at patient's floor/unit and/or counseling patient: Time with patient: less than 15 minutes Procedures Date of Service Date of Service: 02/10/21
[2021-02-10] MEDS: Enoxaparin Sodium 40 MG/0.4 ML SYRINGE SUBCUT (13:43)
--- NOTE | 2021-02-10 16:29 | PM.EVENT ---
Event Note Date of Service: 02/10/21 Event Note: Patient seen examined case discussed with APC patient was scheduled to be discharged home today however she does not feel comfortable leaving today due to persistent hypoxia Patient is very concerned about her new diagnosis of acute systolic congestive heart failure and acute hypoxic respiratory failure Explained the disease process and need for continued outpatient follow-up with Cardiology and pulmonology answered all her questions to her satisfaction Follow home O2 eval, continue current medications, will follow clinical course closely and make decision for discharge accordingly.
--- NOTE | 2021-02-10 16:37 | MHC.CM.NN ---
pt concerned about new diagnosis and new to mo2 referral made to ns spoke with heraclio yang same she will check in am to see if pt is dc d later nati
== END 2021-02-10 17:58 | disposition home or self-care (01) | DRG 291 ==
LOC: HO.ED 06:46 → HO.EDOVER 09:46 → HO.IMC 02-08 00:21
PROVIDERS: Nurse Practitioner Acute Care; Admitting Provider Internal Medicine; Emergency Provider Student in an Organized Health Care Education/Training Program; PCP Family Medicine; Visit Provider Hospitalist
DX: I50.21 Acute systolic (congestive) heart failure (principal); J96.01 Acute respiratory failure with hypoxia; F41.9 Anxiety disorder, unspecified; J43.9 Emphysema, unspecified; I35.0 Nonrheumatic aortic (valve) stenosis; K21.9 Gastro-esophageal reflux disease without esophagitis; I05.8 Other rheumatic mitral valve diseases; G89.29 Other chronic pain; Z20.822 Contact with and (suspected) exposure to COVID-19; Z87.891 Personal history of nicotine dependence; Z88.0 Allergy status to penicillin; Z88.2 Allergy status to sulfonamides; Z79.82 Long term (current) use of aspirin; Z79.899 Other long term (current) drug therapy
CPT/HCPCS: 36415; 71045; 71250; 80048; 80053; 81001; 83605; 83880; 84484; 85007; 85025; 85027; 87040; 87635; 93005; 93306; 94640; 96365; 96366; 96375; 99285; J0696; J1650; J1940; J1956; J2405; J2920; J2930

== ENCOUNTER 2022-01-27 10:45 | Inpatient (IN) | payer OTHER, SELFPAY ==
[2022-01-27] VITALS (7 sets, daily range): BP systolic 103–120; BP diastolic 46–55; PULSE 104–131; RESP 16–20; TEMP 36.7–36.9; O2SAT 93–100; BMI 30.9
--- NOTE | ~2022-01-27 | XR_ITS ---
EXAMINATION: XR CHEST CLINICAL INFORMATION: Shortness of breath. COMPARISON: 02/07/2021 chest radiograph. TECHNIQUE: Frontal view of the chest was obtained. FINDINGS: Mild linear markings are seen in the right infrahilar region. The left lung is clear. The heart and mediastinal structures are unremarkable. XR/XR chest 1V IMPRESSION: Mild linear markings in the right infrahilar region could be projectional representing vascular crowding however mild atelectasis or an infiltrate cannot be excluded. The overall appearance is improved compared to the previous study. If symptoms persist or worsen, repeat study with PA and lateral views is recommended as clinically indicated.
--- NOTE | ~2022-01-27 | CT_ITS ---
EXAMINATION: CT ABDOMEN AND PELVIS WITHOUT CONTRAST CLINICAL INFORMATION: Rule out retroperitoneal bleed. COMPARISON: MRI 9-16. TECHNIQUE: Multidetector volumetric imaging was performed from the superior aspect of the liver through the pubic symphysis. Sagittal and coronal reformatted images were obtained on the technologist's workstation. This CT examination was performed using dose optimization techniques as appropriate, variously including the following: *Automated exposure control *Adjustment of mA and/or kV according to patient size (this includes techniques or standardized protocols for targeted exams where dose is matched to indication/reason for exam; i.e. extremities or head) *Use of iterative reconstruction technique DLP: 688 mGy-cm FINDINGS: LUNG BASES: The lung bases are clear. Coronary artery calcifications. LIVER, GALLBLADDER, AND BILIARY TREE: The liver is normal in size, shape, and attenuation. No focal hepatic lesion or biliary ductal dilatation is present. Stones are seen in the gallbladder lumen. No wall thickening or pericholecystic fluid. PANCREAS: Unremarkable. SPLEEN: Unremarkable. ADRENAL GLANDS: Unremarkable. KIDNEYS AND URETERS: The kidneys are normal in size, shape, and attenuation. No hydronephrosis, hydroureter, or calculi seen. No perinephric stranding. Bilateral parapelvic renal cysts. BLADDER: Unremarkable. GASTROINTESTINAL TRACT: The stomach is decompressed. Normal caliber small bowel. No obstruction. No colonic wall thickening or inflammatory change. Normal appendix. No free air or free fluid. ABDOMINAL WALL: No significant hernia is appreciated. LYMPH NODES: Normal. VASCULAR: Normal caliber aorta with moderate atherosclerotic calcification. PELVIC VISCERA: Uterus not seen. No adnexal mass. OSSEOUS STRUCTURES: No acute or suspicious osseous abnormality. Grade 2 anterolisthesis of L4 on L5. Diffuse disc space narrowing with vacuum disc phenomenon throughout the lumbar spine. Severe degenerative changes at the right hip with joint space narrowing and prominent osteophytes. Subchondral sclerosis present. Cyst formation. CT/CT abdomen pelvis wo con IMPRESSION: No retroperitoneal hematoma. No acute findings in the abdomen or pelvis. Cholelithiasis. No evidence of cholecystitis. Fleischner guidelines were followed.
--- NOTE | 2022-01-27 11:27 | ECG_ITS ---
Test Reason : SOB Blood Pressure : / mmHG Vent. Rate : 123 BPM Atrial Rate : 123 BPM P-R Int : 112 ms QRS Dur : 090 ms QT Int : 422 ms P-R-T Axes : 000 -11 065 degrees QTc Int : 604 ms Sinus tachycardia with frequent Premature ventricular complexes Inferior infarct , age undetermined Abnormal ECG When compared with ECG of 07-FEB-2021 05:48, Premature ventricular complexes are now Present Nonspecific T wave abnormality has replaced inverted T waves in Lateral leads Referred By: Yumiko Field Electronically Signed By:ZINA MCCONNELL MD
--- NOTE | 2022-01-27 11:33 | ED_ITS ---
HPI - General Adult General Chief complaint: Upper Respiratory Symptoms Stated complaint: sob since Monday Time Seen by Provider: 01/27/22 11:26 Source: patient and EMS Mode of arrival: EMS Limitations: no limitations History of Present Illness HPI narrative: 76-year-old female came in for evaluation of shortness of breath for the last 5 days. Patient with known history of asthma and chronic bronchitis do not use supplemental oxygen at home but use bronchodilator, presented with 5 days of shortness of breath and difficulty breathing with wheezing, productive cough of yellow sputum, chills but no fever, no chest pain, no recent sickness or recent exposure to sick contacts, no recent travel, patient received 2 doses of COVID vaccination. No lower extremity swelling, no orthopnea, no paroxysmal nocturnal dyspnea. Patient to not use supplemental oxygen at home when she walked in the emergency department from the bed to the bathroom O2 sat was 88% in the home air improved with 2 L of oxygen to 94%. Related Data Home Medications Medication Instructions Recorded Confirmed albuterol sulfate 90 mcg/actuation 90 inh INHALATION Q4H PRN 12/07/20 01/27/22 aerosol inhaler (ProAir HFA) alprazolam 0.5 mg tablet 1 tab PO TID PRN 12/07/20 01/27/22 aspirin 81 mg tablet,delayed 81 mg PO DAILY 12/07/20 01/27/22 release bupropion HCl 150 mg tablet,12 hr 1 tab PO BID 12/07/20 01/27/22 sustained-release diclofenac sodium 75 mg 1 tab PO BID 12/07/20 01/27/22 tablet,delayed release hydrocodone 7.5 mg-acetaminophen 1 tab PO TID PRN 12/07/20 01/27/22 325 mg tablet biotin 500 mcg capsule 1 mg PO DAILY 02/07/21 01/27/22 cholecalciferol (vitamin D3) 25 1,000 unit PO DAILY 02/07/21 01/27/22 mcg (1,000 unit) capsule (Vitamin D3) albuterol sulfate 2.5 mg INHALATION Q4H PRN 01/27/22 01/27/22 cimetidine 400 mg tablet 1 tab PO DAILY PRN 01/27/22 01/27/22 cyanocobalamin (vitamin B-12) 1,000 mcg PO DAILY 01/27/22 01/27/22 1,000 mcg tablet fluticasone propionate 50 1 spray INTRANASAL DAILY 01/27/22 01/27/22 mcg/actuation nasal spray,suspension vitamin A 2,400 mcg capsule 2,400 mcg PO DAILY 01/27/22 01/27/22 Previous Rx's Medication Instructions Recorded ondansetron HCl 4 mg tablet 4 mg PO BID PRN #60 tab 12/08/20 (Zofran) metoprolol succinate 25 mg 12.5 mg PO DAILY #30 tab 02/10/21 tablet,extended release 24 hr (Toprol XL) Allergies Allergy/AdvReac Type Severity Reaction Status Date / Time amoxicillin Allergy Unknown Verified 06/27/18 00:00 penicillin V Allergy Unknown Verified 06/27/18 00:00 Penicillins [PENICILLINS] Allergy Unknown HIVES Unverified 06/04/20 19:05 Sulfa (Sulfonamide Allergy Unknown HIVES Unverified 06/04/20 19:05 Antibiotics) [SULFA (SULFONAMIDE ANTIBIOTICS)] Review of Systems Review of Systems: All other systems are reviewed and are negative Constitutional: Reports as per HPI and Reports no additional constitutional complaints Eyes: Reports as per HPI and Reports no additional eye complaints Reports system reviewed and no additional complaints, except as documented Cardiovascular: Reports as per HPI and Reports no additional cardiovascular complaints Respiratory: Reports as per HPI and Reports no additional respiratory complaints Gastrointestinal: Reports as per HPI and Reports no additional gastrointestinal complaints Genitourinary: Reports no additional female genitourinary complaints Musculoskeletal: Reports no additional musculoskeletal complaints Skin/Breast: Reports system reviewed and no additional complaints, except as docu Psychiatric: Reports no additional psychiatric complaints Endocrine: Reports no additional endocrine complaints Hematologic/Lymphatic: Reports no additional hematologic/lymphatic complaints Allergic/Immunologic: Reports no additional allergic/immunologic complaints Reports system reviewed and no additional complaints, except as documented and Reports Abnormal speech present [facility] Past Medical History Medical History Anxiety Asthma GERD (gastroesophageal reflux disease) Osteoarthritis Thrombocytopenia Surgical History Hx of hysterectomy Hx of oophorectomy Hx of total knee replacement Family History Family History Sister Lung cancer Lupus Sister Lung cancer Maternal Aunt Lupus Social History Social History Household Members: None Household Members Other:: lives alone [facility]: [facility] Do you presently have visiting nurse or other home services: No Alcohol intake: current Alcohol intake frequency: holidays/special occasions only Advance Directives: No Advance Directives Information Provided: No service: Yes Current occupational status: employed Physical Exam ED Vital Signs: Vital Signs - 24 hr 01/27/22 10:52 01/27/22 11:57 Pulse Rate 104 H 112 H Respiratory Rate 20 Pulse Oximetry 94 BMI result Body Mass Index 30.9 Vital signs have been reviewed as appeared to be correct. Blood pressure normal. Heart rate normal. Respiration rate normal. Temperature normal. Oxygen saturation normal. Appearance: Alert. Oriented X3. No acute distress. Head: Normal external exam. Normocephalic. Atraumatic. No Gonzalez signs noted. No raccoon eyes noted Eyes: PERRLA. EOMI. Conjunctiva and sclera normal. Eyelids normal. ENT: TM's Normal. Pharynx normal. Uvula midline. Moist mucous membranes. No trismus noted. No drooling noted. No muffled voice noted. Neck: Normal inspection. Neck supple. FROM. No adenopathy. Thyroid Normal. No meningeal signs. No neck mass noted. CVS: Normal heart rate and rhythm. Heart sound normal. No murmurs noted. Pulses normal throughout. Respiratory: No respiratory distress. Painless inspiration. Breath sounds normal. Diffuse expiratory wheezing with prolonged expiration. Chest nontender. No accessory muscle usage noted or decreased air movement noted. Abdomen: Soft and nontender. Bowel sounds normal in all 4 quadrants. No distention noted. No organomegaly noted. No visible injury noted. Back: No CVA tenderness. Full range of motion noted. Skin: Skin warm and dry. Normal skin color. Normal skin turgor. No rashes/lesions/lacerations noted. Extremities: No lower extremity edema. Extremities exhibit normal range of motion. Extremities nontender. Neuro: Oriented X 3. Cranial nerve exam: II-XII are grossly intact No motor deficit. No sensory deficit. Reflexes normal. Course Course Course Narrative: Assessment and plan. 76-year-old female with history of asthma presented with acute asthma e xacerbation and patient was hypoxic, sepsis is not expected but will cover with empiric antibiotic. And continue with bronchodilator/magnesium. Medical Decision Making Lab Data Lab results reviewed: Yes I reviewed the patient's lab results. Result diagrams: 01/27/22 12:08 01/27/22 12:08 Labs: Lab Results 01/27/22 01/27/22 01/27/22 Range/Units 12:08 12:08 12:38 Sodium 142 (135-145) mmol/L Potassium 3.7 (3.3-5.1) mmol/L Chloride 109 H (96-108) mmol/L Carbon Dioxide 24 (22-29) mmol/L Anion Gap 13 (12-20) BUN 32 H (9-16) mg/dL Creatinine 0.84 (0.5-1.4) mg/dL Estim Creat Clear Calc 55.9 Estimated GFR > 60 Random Glucose 127 H (60-115) mg/dL Calcium 8.4 (8.4-10.2) mg/dL Total Bilirubin 0.3 (0.0-1.0) mg/dL Direct Bilirubin 0.2 (0.0-0.5) mg/dL AST 21 D (5-31) U/L ALT 17 (0-31) U/L Alkaline Phosphatase 41 D (39-117) U/L Troponin I High Sens 24.9 H (<3.5-17.0) ng/L Total Protein 5.2 L (6.5-8.0) g/dL Albumin 3.5 (3.5-5.0) g/dL Lipase 33 (8-78) U/L Urine Color Urine Appearance Urine pH (5.0-8.0) Ur Specific [place] (1.005-1.025) Urine Protein (NEG-TRACE) MG/DL Urine Glucose (UA) (NEG) MG/DL Urine Ketones (NEG) MG/DL Urine Blood (NEG) Urine Nitrite (NEG) Ur Leukocyte Esterase (NEG) Urine RBC (0) /HPF Urine WBC (0-4) /HPF Ur Squamous Epith Cells /LPF Urine Bacteria /LPF Influenza Type A (PCR) NEGATIVE (Negative) Influenza Type B (PCR) NEGATIVE (Negative) RSV RNA Qual (PCR) NEGATIVE (Negative) SARS-CoV-2 RNA (RT-PCR) NEGATIVE (Negative) 01/27/22 Range/Units 13:10 Sodium (135-145) mmol/L Potassium (3.3-5.1) mmol/L Chloride (96-108) mmol/L Carbon Dioxide (22-29) mmol/L Anion Gap (12-20) BUN (9-16) mg/dL Creatinine (0.5-1.4) mg/dL Estim Creat Clear Calc Estimated GFR Random Glucose (60-115) mg/dL Calcium (8.4-10.2) mg/dL Total Bilirubin (0.0-1.0) mg/dL Direct Bilirubin (0.0-0.5) mg/dL AST (5-31) U/L ALT (0-31) U/L Alkaline Phosphatase (39-117) U/L Troponin I High Sens (<3.5-17.0) ng/L Total Protein (6.5-8.0) g/dL Albumin (3.5-5.0) g/dL Lipase (8-78) U/L Urine Color YELLOW Urine Appearance CLEAR Urine pH 5.5 (5.0-8.0) Ur Specific [place] 1.015 (1.005-1.025) Urine Protein NEG (NEG-TRACE) MG/DL Urine Glucose (UA) NEG (NEG) MG/DL Urine Ketones 5 (NEG) MG/DL Urine Blood 2+ H (NEG) Urine Nitrite NEG (NEG) Ur Leukocyte Esterase NEG (NEG) Urine RBC 0 (0) /HPF Urine WBC 1-4 (0-4) /HPF Ur Squamous Epith Cells 2+ /LPF Urine Bacteria TRACE /LPF Influenza Type A (PCR) (Negative) Influenza Type B (PCR) (Negative) RSV RNA Qual (PCR) (Negative) SARS-CoV-2 RNA (RT-PCR) (Negative) Imaging Data Chest x-ray: Attestation: I personally reviewed and interpreted this imaging study as follows: Radiologist's impression: Mild linear markings in the right infrahilar region could be projectional representing vascular crowding however mild atelectasis or an infiltrate cannot be excluded. The overall appearance is improved compared to the previous study. If symptoms persist or worsen, repeat study with PA and lateral views is recommended as clinically indicated. ? ECG Data Attestation: I personally reviewed and interpreted this ECG as follows: Interpretation: Sinus tachycardia with frequent PVC at 123 beats per minutes, left axis deviatio n, nonspecific T-wave changes. Discharge Plan Discharge Clinical Impression: Asthma exacerbation Patient Disposition: Admitted As Inpatient Prescriptions: No Action bupropion HCl 150 mg tablet sustained-release 12 hr 1 tab PO BID 0RF aspirin 81 mg Tablet,Delayed Release (Dr/Ec) 81 mg PO DAILY 0RF alprazolam 0.5 mg tablet 1 tab PO TID PRN (Reason: Anxiety) 0RF hydrocodone-acetaminophen 7.5-325 mg tablet 1 tab PO TID PRN (Reason: Pain) 0RF diclofenac sodium 75 mg tablet,delayed release (DR/EC) 1 tab PO BID 0RF albuterol sulfate [ProAir HFA] 90 mcg/actuation HFA aerosol inhaler 90 inh inhalation Q4H PRN (Reason: Wheezing) 0RF ondansetron HCl [Zofran] 4 mg Tablet 4 mg PO BID PRN (Reason: Nausea) Qty: 60 0RF biotin 500 mcg Capsule 1 mg PO DAILY 0RF cholecalciferol (vitamin D3) [Vitamin D3] 25 mcg (1,000 unit) Capsule 1,000 unit PO DAILY 0RF metoprolol succinate [Toprol XL] 25 mg tablet extended release 24 hr 12.5 mg PO DAILY Qty: 30 0RF albuterol sulfate 2.5 mg /3 mL (0.083 %) solution for nebulization 2.5 mg inhalation Q4H PRN (Reason: Wheezing) 0RF cimetidine 400 mg tablet 1 tab PO DAILY PRN (Reason: Acid Reflux) 0RF fluticasone propionate 50 mcg/actuation spray,suspension 1 spray intranasal DAILY 0RF vitamin A 2,400 mcg Capsule 2,400 mcg PO DAILY 0RF cyanocobalamin (vitamin B-12) 1,000 mcg Tablet 1,000 mcg PO DAILY 0RF
[2022-01-27] MEDS: Albuterol/Iprat 2.5/0.5MG 3 ML AMPUL.NEB INHALE ×2 (11:55→19:20)
[2022-01-27] MEDS: Albuterol Sulfate (0.083%) 2.5 MG/3 ML VIAL.NEB 5 MG INHALE (11:55)
[2022-01-27 12:33] LABS: Alanine Aminotransferase 17 U/L (0-31); Albumin Level 3.5 g/dL (3.5-5.0); Alkaline Phosphatase 41 U/L (39-117); Anion Gap 13 (12-20); Aspartate Amino Transferase 21 U/L (5-31); Bilirubin Direct 0.2 mg/dL (0.0-0.5); Bilirubin Total 0.3 mg/dL (0.0-1.0); Blood Urea Nitrogen 32 mg/dL (9-16); Calcium 8.4 mg/dL (8.4-10.2); Carbon Dioxide 24 mmol/L (22-29); Chloride 109 mmol/L (96-108); Creatinine Clr Calc Pharmacy 55.9; Estimated Glomerular Filt Rate > 60; Glucose Random 127 mg/dL (60-115); Lipase 33 U/L (8-78); Potassium 3.7 mmol/L (3.3-5.1); Sodium 142 mmol/L (135-145); Total Protein 5.2 g/dL (6.5-8.0)
[2022-01-27] MEDS: Magnesium Sulfate/H2O 2 GM/50 ML PIGGYBACK IV (12:47)
[2022-01-27] MEDS: methylPREDNISolone Sod Succ 125 MG/2 ML VIAL IVPUSH (12:47)
[2022-01-27 13:10] LABS: Troponin-I High Sensitivity 24.9 ng/L (<3.5-17.0)
[2022-01-27 13:22] LABS: Appearance Urine CLEAR; Color Urine YELLOW; Glucose Urine UA NEG (NEG); Leukocyte Esterase Urine NEG (NEG); Nitrite Urine NEG (NEG); PH 5.5 (5.0-8.0); Specific Gravity - Urine 1.015 (1.005-1.025); UACC Culture Trigger NO; Urine Blood 2+ (NEG); Urine Ketones 5 MG/DL (NEG); Urine Protein NEG (NEG-TRACE)
[2022-01-27 13:32] LABS: Influenza A PCR NEGATIVE (Negative); Influenza B PCR NEGATIVE (Negative); Resp Syncy Virus RNA Qual PCR NEGATIVE (Negative); SARS COV2 PCR INHOUSE NEGATIVE (Negative)
--- NOTE | 2022-01-27 13:32 | PHA.MEDREC ---
Pharmacy Consult ? Medication Reconciliation Pharmacy has completed the medication reconciliation. Patient report she has a Flovent inhaler, last filled February 2021, at home that she does not use. States she prefers to use the albuterol inhaler because it works. I explain to the purpose of the Flovent is it is a maintenance inhaler therefore using it every day will help avoid SOB and wheezing. Patient reports that she rather just use the albuterol for comfort reasons. Arti Cordova, PharmD
[2022-01-27 13:42] LABS: Squamous Epithelial Cell Urine 2+ /LPF
[2022-01-27 13:44] LABS: Bacteria Urine TRACE /LPF; RBC Urine 0 /HPF (0)
[2022-01-27 16:23] LABS: Lactic Acid 1.7 mmol/L (0.5-2.0)
[2022-01-27] MEDS: levoFLOXacin/D5W 750 MG/150 ML PIGGYBACK 100 MG IV (16:24)
[2022-01-27 16:33] LABS: Troponin-I High Sensitivity 27.2 ng/L (<3.5-17.0)
[2022-01-27 16:55] LABS: D Dimer High Sensitivity < 150 NG/ML
--- NOTE | 2022-01-27 17:01 | P.HPHOSP_ITS ---
History of Present Illness Date of Service: 01/27/22 Chief Complaint: shortness of breath/wheeze/cough 75yo F with COPD/chronic bronchitis/asthma, anxiety, GERD, chronic HFrEF, and chronic ITP who presents to the [facility] ED with 4 days of worsening cough productive of yellow sputum, nasal congestion, sneezing, dyspnea, and wheezing unrelieved by her albuterol inhaler or nebulizer. She is on an inhaled steroid as her controller medication. She is not on home O2. No recent steroids or antibiotics. Has been vaccinated against Covid-19. Denies chest pain, palpitations, leg swelling, fever, chills, or hemoptysis. Upon arrival in the ED, RA SaO2 was 88% and she was placed on 2L of O2 via NC. CXR showed a poss ible R infrahilar infiltrate. Two serial hs-Tn-I were 24.9 then 27.2. EKG sinus tachycardia with no ischemic changes. Procalcitonin pending. PCR for influenza, Covid-19, and RSV negative. She was given a dose of methylprednisolone and levofloxacin, along with magnesium, Duoneb, and an additional albuterol nebulization. Review of Systems Review of Systems: Yes all other systems are reviewed and are negative [facility] Medical History (Updated 01/27/22 @ 17:19 by Hung Sullivan MD) Anxiety Asthma COPD exacerbation GERD (gastroesophageal reflux disease) Heart failure with reduced ejection fraction Osteoarthritis Thrombocytopenia Family History Sister Lung cancer Lupus Sister Lung cancer Maternal Aunt Lupus Surgical History Hx of hysterectomy Hx of oophorectomy Hx of total knee replacement Social History Household Members: None Household Members Other:: lives alone Housing: Condominium Do you presently have visiting nurse or other home services: No Alcohol intake: current Alcohol intake frequency: holidays/special occasions only Advance Directives: No Advance Directives Information Provided: No service: Yes Current occupational status: employed Meds Allergies Allergy/AdvReac Type Severity Reaction Status Date / Time amoxicillin Allergy Unknown Verified 06/27/18 00:00 penicillin V Allergy Unknown Verified 06/27/18 00:00 Penicillins [PENICILLINS] Allergy Unknown HIVES Unverified 06/04/20 19:05 Sulfa (Sulfonamide Allergy Unknown HIVES Unverified 06/04/20 19:05 Antibiotics) [SULFA (SULFONAMIDE ANTIBIOTICS)] Active Medications: Current Medications Acetaminophen (Acetaminophen 325 Mg Tablet) 650 mg PO Q6H PRN PRN Reason: Pain, Mild (Pain Scale 1-3) Albuterol Sulfate (Albuterol Sulfate (0.083%) 2.5 Mg/3 Ml Vial.Neb) 2.5 mg INHALE Q2H PRN PRN Reason: Shortness of Breath/Wheezing Albuterol/Ipratropium (Albuterol/Iprat 2.5/0.5mg 3 Ml Ampul.Neb) 3 ml INHALE RQ4H WHILE AWAKE ROBERTO Alprazolam (Alprazolam 0.5 Mg Tablet) 0.5 mg PO TID PRN PRN Reason: Anxiety Aspirin (Aspirin Enteric Coated 81 Mg Tablet.) 81 mg PO DAILY [facility] Bupropion HCl (Bupropion Hcl Xl 300 Mg Tab.Er.24h) 300 mg PO DAILY [facility] Cyanocobalamin (Cyanocobalamin (Vitamin B-12) 1,000 Mcg Tablet) 1,000 mcg PO DAILY [facility] Diclofenac Sodium (Diclofenac Sodium Delayed Rel 75 Mg Tablet.) 75 mg PO BID [facility] Famotidine (Famotidine 20 Mg Tablet) 20 mg PO DAILY PRN PRN Reason: Acid Reflux Fluticasone Propionate (Fluticasone Propionate Nasal 16 Gm [place]) 1 spray NOSTRIL-B DAILY [facility] Levofloxacin (Levaquin) 750 mg in 150 mls @ 100 mls/hr IV ONCE ONE Stop: 01/27/22 17:05 Last Admin: 01/27/22 16:24 Dose: 100 mls/hr Documented by: Doxycycline Hyclate 100 mg/ (Sodium Chloride) 250 mls @ 166.67 mls/hr IV Q12H [facility] Methylprednisolone Sodium Succinate (Methylprednisolone Sod Succ 40 Mg/Ml Vial) 40 mg IVPUSH Q12H ROBERTO Metoprolol Succinate (Metoprolol Succinate Er 12.5 Mg Halftab.Er.24h) 12.5 mg PO DAILY ROBERTO; Protocol Ondansetron HCl (Ondansetron Hcl 4 Mg/2 Ml Vial) 4 mg IVPUSH Q8H PRN PRN Reason: Nausea and Vomiting Pharmacy Consult (Consult Rx Perform Med Rec) 1 each MISCELLANE ONCE PRN PRN Reason: Consult order Sodium Chloride (0.9 % Sodium Chloride Flush 3 Ml Syringe) 3 ml IVFLUSH QSHIFT [facility] Vitamin D (Cholecalciferol (Vitamin D3) 25 Mcg Tablet) 25 mcg PO DAILY [facility] Home Medications Medication Instructions Recorded Confirmed Last Taken Type albuterol sulfate 90 mcg/actuation 90 inh INHALATION Q4H PRN 12/07/20 01/27/22 Unknown History aerosol inhaler (ProAir HFA) alprazolam 0.5 mg tablet 1 tab PO TID PRN 12/07/20 01/27/22 Unknown History aspirin 81 mg tablet,delayed 81 mg PO DAILY 12/07/20 01/27/22 Unknown History release bupropion HCl 150 mg tablet,12 hr 1 tab PO BID 12/07/20 01/27/22 Unknown History sustained-release diclofenac sodium 75 mg 1 tab PO BID 12/07/20 01/27/22 Unknown History tablet,delayed release hydrocodone 7.5 mg-acetaminophen 1 tab PO TID PRN 12/07/20 01/27/22 Unknown History 325 mg tablet biotin 500 mcg capsule 1 mg PO DAILY 02/07/21 01/27/22 Unknown History cholecalciferol (vitamin D3) 25 1,000 unit PO DAILY 02/07/21 01/27/22 Unknown History mcg (1,000 unit) capsule (Vitamin D3) albuterol sulfate 2.5 mg INHALATION Q4H PRN 01/27/22 01/27/22 Unknown History cimetidine 400 mg tablet 1 tab PO DAILY PRN 01/27/22 01/27/22 Unknown History cyanocobalamin (vitamin B-12) 1,000 mcg PO DAILY 01/27/22 01/27/22 Unknown History 1,000 mcg tablet fluticasone propionate 50 1 spray INTRANASAL DAILY 01/27/22 01/27/22 Unknown History mcg/actuation nasal spray,suspension vitamin A 2,400 mcg capsule 2,400 mcg PO DAILY 01/27/22 01/27/22 Unknown History Physical Exam Vital Signs and Narrative: Vital Signs: Last Vital Signs Temp 98.5 F 01/27/22 15:38 Pulse 120 H 01/27/22 15:38 Resp 17 01/27/22 15:38 BP 120/50 L 01/27/22 15:38 Pulse Ox 96 01/27/22 15:38 Oxygen Flow Rate 3 01/27/22 10:52 BMI result Body Mass Index 30.9 Gen: in mild resp distress HEENT: sclera anicteric, moist mucus membranes Neck: supple Lungs: tachypneic, diffuse expiratory wheezing Heart: regular, tachycardic, no murmurs Abd: soft, non-tender, non-distended Ext: no edema Skin: warm/well-perfused Neuro: alert and oriented x3, no focal findings Psych: appropriate affect Results Labs CBC and Chem 7: 01/27/22 12:08 01/27/22 12:08 Labs: Laboratory Results - last 24 hr 01/27/22 01/27/22 01/27/22 12:08 12:08 12:38 D-Dimer High Sensitivty Anion Gap 13 Estim Creat Clear Calc 55.9 Estimated GFR > 60 Random Glucose 127 H Lactic Acid Calcium 8.4 Total Bilirubin 0.3 Direct Bilirubin 0.2 AST 21 D ALT 17 Alkaline Phosphatase 41 D Troponin I High Sens 24.9 H Total Protein 5.2 L Albumin 3.5 Lipase 33 Urine Color Urine Appearance Urine pH Ur Specific [place] Urine Protein Urine Glucose (UA) Urine Ketones Urine Blood Urine Nitrite Ur Leukocyte Esterase Urine RBC Urine WBC Ur Squamous Epith Cells Urine Bacteria Influenza Type A (PCR) NEGATIVE Influenza Type B (PCR) NEGATIVE RSV RNA Qual (PCR) NEGATIVE SARS-CoV-2 RNA (RT-PCR) NEGATIVE 01/27/22 01/27/22 01/27/22 13:10 16:02 16:02 D-Dimer High Sensitivty Anion Gap Estim Creat Clear Calc Estimated GFR Random Glucose Lactic Acid 1.7 Calcium Total Bilirubin Direct Bilirubin AST ALT Alkaline Phosphatase Troponin I High Sens 27.2 H Total Protein Albumin Lipase Urine Color YELLOW Urine Appearance CLEAR Urine pH 5.5 Ur Specific [place] 1.015 Urine Protein NEG Urine Glucose (UA) NEG Urine Ketones 5 Urine Blood 2+ H Urine Nitrite NEG Ur Leukocyte Esterase NEG Urine RBC 0 Urine WBC 1-4 Ur Squamous Epith Cells 2+ Urine Bacteria TRACE Influenza Type A (PCR) Influenza Type B (PCR) RSV RNA Qual (PCR) SARS-CoV-2 RNA (RT-PCR) 01/27/22 16:31 D-Dimer High Sensitivty < 150 Anion Gap Estim Creat Clear Calc Estimated GFR Random Glucose Lactic Acid Calcium Total Bilirubin Direct Bilirubin AST ALT Alkaline Phosphatase Troponin I High Sens Total Protein Albumin Lipase Urine Color Urine Appearance Urine pH Ur Specific [place] Urine Protein Urine Glucose (UA) Urine Ketones Urine Blood Urine Nitrite Ur Leukocyte Esterase Urine RBC Urine WBC Ur Squamous Epith Cells Urine Bacteria Influenza Type A (PCR) Influenza Type B (PCR) RSV RNA Qual (PCR) SARS-CoV-2 RNA (RT-PCR) Imaging Radiologist's Impressions: Impressions Chest X-Ray 01/27/22 13:19 IMPRESSION: Mild linear markings in the right infrahilar region could be projectional representing vascular crowding however mild atelectasis or an infiltrate cannot be excluded. The overall appearance is improved compared to the previous study. If symptoms persist or worsen, repeat study with PA and lateral views is recommended as clinically indicated. Assessment and Plan (1) Asthma exacerbation: Status: Acute (2) COPD exacerbation: Status: Acute Plan 76yo F with COPD/asthma, chronic HFrEF, and ITP presenting with 3-4 days of progressive cough productive of sputum, dyspnea, and wheezing. Arrived hypoxic and question of R infrahilar infiltrate. # COPD/asthma exacerbation - admit to M/S, give IV glucocorticoid, nebulized bronchodilators # pneumonia - follow BCx, trend PCT, give doxycycline # hypoxic respiratory failure - suppl O2, wean as grayson # chronic HFrEF - euvolemic; continue metoprolol succinate # mood disorder - continue alprazolam, bupropion # VTE ppx - SCDs, avoid heparin given thrombocytopenia # code - full I anticipate that the patient will stay at least 2 midnights in hospital due to the above reasons. It is not reasonable or safe to care for them in a less acute setting. Quality Stroke Does the patient have a stroke diagnosis?: No VTE Prior VTE?: No VTE Risk Level:: Medical - moderate - high VTE Device Contraindication: N/A - Device Ordered VTE Drug Contraindication: Treatment Not Indicated
[2022-01-27 20:22] LABS: Lymphocytes Absolute Auto 0.4 X10*3/uL (1.2-4.9); Lymphocytes Percent Auto 3.5 % (20-40); MANUAL DIFF FLAG SCAN; NRBC Pct Auto 0.3 /100WBC (0.0-0.2); SCAN SMEAR FLAG 1
[2022-01-27 20:24] LABS: Basophils Percent Auto 0.1 % (0-2); Imm Gran Pct Auto 0.9 % (0.0-0.4); Mean Corpuscular HGB Conc 29.2 g/dl (31.0-35.0); Mean Corpuscular Hemoglobin 25.5 pg (27.0-33.0); Mean Corpuscular Volume 87.6 fL (80.0-98.0); Monocytes Absolute Auto 0.2 X10*3/uL (0.1-1.2); Monocytes Percent Auto 1.9 % (2-11); Neutrophils Percent Auto 93.6 % (45-73); PLT CLUMP 1; Red Blood Count 1.37 X10*6/uL (4.20-5.50); Red Cell Distribution Width 16.8 % (11.0-16.0)
[2022-01-27 20:26] LABS: PLT ABN DIST 1; White Blood Count 10.7 X10*3/uL (4.8-10.8)
[2022-01-27 20:31] LABS: Hemoglobin 3.5 g/dl (12.0-16.0)
[2022-01-27 20:46] LABS: SLIDE REVIEW VERIFIED
[2022-01-27] MEDS: ALPRAZolam 0.5 MG TABLET PO (20:52)
[2022-01-27] MEDS: oxyCODONE HCl Immed Release 5 MG TABLET PO (20:52)
[2022-01-27] MEDS: methylPREDNISolone Sod Succ 40 MG/ML VIAL IVPUSH (20:53)
[2022-01-27 20:56] LABS: Basophils Percent Auto 0.1 % (0-2); Imm Gran Abs Auto 0.08 X10*3/uL (0.00-0.03); Imm Gran Pct Auto 0.8 % (0.0-0.4); NRBC Pct Auto 0.2 /100WBC (0.0-0.2); SCAN SMEAR FLAG 1
[2022-01-27 20:58] LABS: Lymphocytes Absolute Auto 0.4 X10*3/uL (1.2-4.9); Lymphocytes Percent Auto 3.6 % (20-40); Mean Corpuscular HGB Conc 29.4 g/dl (31.0-35.0); Mean Corpuscular Hemoglobin 25.7 pg (27.0-33.0); Mean Corpuscular Volume 87.5 fL (80.0-98.0); Monocytes Absolute Auto 0.2 X10*3/uL (0.1-1.2); Monocytes Percent Auto 2.2 % (2-11); Neutrophils Absolute Auto 9.2 x10*3/uL (2.0-8.3); Neutrophils Percent Auto 93.3 % (45-73); Red Blood Count 1.36 X10*6/uL (4.20-5.50); Red Cell Distribution Width 16.9 % (11.0-16.0); White Blood Count 9.8 X10*3/uL (4.8-10.8)
[2022-01-27 20:59] LABS: Platelet Count 91 X10*3/uL (160-400)
[2022-01-27 21:00] LABS: Hemoglobin 3.5 g/dl (12.0-16.0); PLT ABN DIST 1
[2022-01-27 21:01] LABS: Hematocrit 11.9 % (37.0-47.0); MANUAL DIFF FLAG NO
[2022-01-27 21:07] LABS: Alanine Aminotransferase 16 U/L (0-31); Albumin Level 3.6 g/dL (3.5-5.0); Alkaline Phosphatase 42 U/L (39-117); Anion Gap 15 (12-20); Aspartate Amino Transferase 16 U/L (5-31); Bilirubin Direct 0.2 mg/dL (0.0-0.5); Bilirubin Total 0.3 mg/dL (0.0-1.0); Blood Urea Nitrogen 28 mg/dL (9-16); Calcium 8.4 mg/dL (8.4-10.2); Carbon Dioxide 21 mmol/L (22-29); Chloride 109 mmol/L (96-108); Creatinine Clr Calc Pharmacy 40.8; Estimated Glomerular Filt Rate 46; Glucose Random 181 mg/dL (60-115); Sodium 141 mmol/L (135-145); Total Protein 5.4 g/dL (6.5-8.0)
--- NOTE | 2022-01-27 21:33 | PC.NURSE ---
Addendum entered by Lorna Huff 01/28/22 06:55: Report given to SUNSHINE Fox Addendum entered by Lorna Huff 01/28/22 04:05: first blood transfusion completed, pt tolerated it well Addendum entered by Lorna Huff 01/28/22 01:14: 00:25 pt educated on signs and symptoms of blood transfusion, verbalized understanding. 00:55 15 mins check, pt tolerating blood transfusion Original Note: report received from SUNSHINE [facility]. pt is alert and oriented. during assessment pt appear jaundice, tachy in the monitor, pt stated that she is not feeling well, pt on continuos cardiac monitoring. on 2L of oxygen via nc. pt c/o of pain to her hand abd bilateral knee, DR. Cardoso made aware of hemoglobin 3.5, hematocrit 12.0, will order 2 units of blood. blood consent obtained.
--- NOTE | 2022-01-27 22:02 | MHC.CM.PN ---
Addendum entered by Bianka Swann 01/27/22 22:11: Will place referral for [facility] to follow [facility]. Original Note: IMM 01/27. No HCP on file. Copy requested. HCP Jadon Eastman (no telephone number available). Vax x2/Moderna 08/04/22, 11/01/21. Uses a walking stick, not a cane. Has [facility]. Working for [employer]. Is a . career [place], in [place] [facility]. Has used [facility] in the past. D/C plan: Home with ? [facility]. Will follow hospital course. Pt to arrange transportation home. CM to follow for d/c needs.
[2022-01-27] MEDS: Diclofenac Sodium Delayed Rel 75 MG TABLET.DR PO (22:07)
--- NOTE | 2022-01-27 22:13 | PM.EVENT ---
Event Note Date of Service: 01/27/22 Event Note: Severe anemia: Patient reports shortness of breath; symptomatic anemia; Also mentions prior history of iron deficiency-receiving IV iron. Mentions she has not had colonoscopy in the recent times. Denies any black stool or red stool. Hemoglobin noted to be 3.5-ordered 3 units of PRBC. Stool guaiac Iron studies Hematology-Oncology consult Will consider GI consult based on guaiac test. CT abdomen to rule out retroperitoneal hemorrhage
[2022-01-27 23:11] LABS: Iron 10 mcg/dL (30-160); Percent Iron Saturation 3 % (15-50); Total Iron Binding Capacity 364 mcg/dL (228-428); Unsaturated Iron Binding 354 ug/dL
[2022-01-28] VITALS (20 sets, daily range): BP systolic 98–139; BP diastolic 47–62; PULSE 87–114; RESP 12–21; TEMP 36.3–37.1; O2SAT 95–99
[2022-01-28] MEDS: Famotidine 20 MG TABLET PO ×2 (01:22→13:48)
[2022-01-28] MEDS: oxyCODONE HCl Immed Release 5 MG TABLET PO ×3 (02:46→21:29)
[2022-01-28 06:37] LABS: B Type Natriuretic Peptide 241 pg/mL (<100)
--- NOTE | 2022-01-28 08:30 | PC.NURSE ---
RBC WERE NOT INFUSING, REFLUSHED LINE AND RESTARTED TRANSFUSING. SHE IS AWAKE AND ALERT. HER ORDERS ARE NPO.
[2022-01-28 08:41] LABS: MANUAL DIFF FLAG NO
[2022-01-28 08:45] LABS: Basophils Percent Auto 0.1 % (0-2); Imm Gran Abs Auto 0.12 X10*3/uL (0.00-0.03); Imm Gran Pct Auto 1.3 % (0.0-0.4); Lymphocytes Absolute Auto 0.5 X10*3/uL (1.2-4.9); Lymphocytes Percent Auto 4.9 % (20-40); Mean Corpuscular Hemoglobin 27.2 pg (27.0-33.0); Monocytes Absolute Auto 0.9 X10*3/uL (0.1-1.2); Monocytes Percent Auto 10.1 % (2-11); NRBC Pct Auto 0.3 /100WBC (0.0-0.2); Neutrophils Absolute Auto 7.8 x10*3/uL (2.0-8.3); Neutrophils Percent Auto 83.6 % (45-73); Red Blood Count 1.91 X10*6/uL (4.20-5.50); Red Cell Distribution Width 15.9 % (11.0-16.0); White Blood Count 9.3 X10*3/uL (4.8-10.8)
[2022-01-28 08:46] LABS: Platelet Count 82 X10*3/uL (160-400)
[2022-01-28 08:49] LABS: Hemoglobin 5.2 g/dl (12.0-16.0)
[2022-01-28 08:50] LABS: Hematocrit 16.8 % (37.0-47.0)
[2022-01-28 08:57] LABS: Alanine Aminotransferase 15 U/L (0-31); Albumin Level 3.5 g/dL (3.5-5.0); Alkaline Phosphatase 37 U/L (39-117); Aspartate Amino Transferase 20 U/L (5-31); Bilirubin Direct 0.5 mg/dL (0.0-0.5); Bilirubin Total 1.1 mg/dL (0.0-1.0); Lactate Dehydrogenase 269 U/L (122-220); Total Protein 5.2 g/dL (6.5-8.0)
[2022-01-28 08:58] LABS: Folate 15.2 ng/mL (> or = 4.0); Vitamin B12 > 2000 pg/mL (200-900)
[2022-01-28] MEDS: Pantoprazole Sodium 40 MG/10 ML VIAL IVPUSH ×2 (09:04→17:31)
[2022-01-28] MEDS: Doxycycline Hyclate 100 MG in 0.9 % Sodium Chloride 250 ML 166.67 MG IV ×2 (09:09→20:17)
[2022-01-28] MEDS: Aspirin Enteric Coated 81 MG TABLET.DR PO (09:16)
[2022-01-28] MEDS: Cyanocobalamin (Vitamin B-12) 1,000 MCG TABLET 1000 MCG PO (09:17)
[2022-01-28] MEDS: methylPREDNISolone Sod Succ 40 MG/ML VIAL IVPUSH (09:17)
[2022-01-28] MEDS: Cholecalciferol (Vitamin D3) 25 MCG TABLET PO (09:17)
[2022-01-28] MEDS: Metoprolol Succinate ER 12.5 MG HALFTAB.ER.24H PO (09:18)
[2022-01-28] MEDS: buPROPion HCl XL 300 MG TAB.ER.24H PO (09:18)
[2022-01-28] MEDS: Diclofenac Sodium Delayed Rel 75 MG TABLET.DR PO ×2 (09:19→21:30)
[2022-01-28 11:00] LABS: Immature Retic Fraction 15.2 % (3.0-15.9); Retic HGB Equivalent 19.5 pg (30.0-35.0)
[2022-01-28 11:01] LABS: Reticulocyte Percent 2.8 % (0.5-1.8); Reticulocytes Absolute 0.052 X10*6/uL (0.026-0.095)
--- NOTE | 2022-01-28 12:55 | P.CNHO_ITS ---
Subjective - Subjective Chief complaint: Consult for: Significant anemia. Thrombocytopenia. Patient: new to practice Consult date: 01/28/22 Requesting Physician: Nate Primary Care Provider: Joseph Magana MD Medical Summary: DIAGNOSIS: 1. SEVERE ANEMIA. 2. THROMBOCYTOPENIA. HPI - Consult Narrative Reason for consult: consult for: 1. Severe anemia. 2. Thrombocytopenia. Narrative: Susan Chan is a pleasant 76 year old lady, who presented to the [facility] with a 4 days of worsening cough productive of yellow sputum, nasal congestion, sneezing, dyspnea, and wheezing unrelieved by her albuterol inhaler or nebulizer. She is on an inhaled steroid as her controller medication. She is not on home O2. No recent steroids or antibiotics. She has been vaccinated against Covid- 19. Denies chest pain, palpitations, leg swelling, fever, chills, or hemoptysis. Review of her labs in the computer revealed the following trend: Hemoglobin:02/05: 10.3. Hemoglobin 01/27/22: 3.5. Hemoglobin 01/28/22: 5.2. Platelets: 02/05: 77. /09/08: 91. /: 82. Upon arrival in the ED, RA SaO2 was 88% and she was placed on 2L of O2 via NC. Chest x-ray revealed: Mild linear markings in the right infrahilar region could be projectional representing vascular crowding however mild atelectasis or an infiltrate cannot be excluded. The overall appearance is improved compared to the previous study. If symptoms persist or worsen, repeat study with PA and lateral views is recommended as clinically indicated. CXR showed a possible R infrahilar infiltrate. Two serial hs-Tn-I were 24.9 th en 27.2. EKG sinus tachycardia with no ischemic changes. Procalcitonin pending. PCR for influenza, Covid-19, and RSV negative. She was given a dose of methylprednisolone and levofloxacin, along with magnesium, Duoneb, and an additional albuterol nebulization. Review of Systems: Review of Systems: Yes all other systems are reviewed and are negative [facility] Medical History: with COPD/ chronic bronchitis/asthma, anxiety, GERD, chronic HFrEF, and Chronic ITP Anxiety Asthma COPD exacerbation GERD (gastroesophageal reflux disease) Heart failure with reduced ejection fraction Osteoarthritis Thrombocytopenia Family History Sister Lung cancer Lupus Sister Lung cancer Maternal Aunt Lupus Surgical History Hx of hysterectomy Hx of oophorectomy Hx of total knee replacement [facility] Medical History: Medical History (Last Updated 01/27/22 @ 17:19 by Hung Sullivan MD) Anxiety Asthma COPD exacerbation GERD (gastroesophageal reflux disease) Heart failure with reduced ejection fraction Osteoarthritis Thrombocytopenia Family History: Family History (Last Reviewed 01/27/22 @ 17:13 by Hung Sullivan MD) Sister Lung cancer Lupus Sister Lung cancer Maternal Aunt Lupus Surgical History: Surgical History (Last Reviewed 01/27/22 @ 17:13 by Hung Sullivan MD) Hx of hysterectomy Hx of oophorectomy Hx of total knee replacement Social History: Social History (Last Reviewed 01/27/22 @ 17:13 by Hung Sullivan MD) Living Situation History: Household Members: None Household Members Other:: lives alone [facility] Do you presently have visiting nurse or other home services: No Occupation Assessmet: service: No service comment: career [employer] Current occupational status: employed Home Medications and Allergies Current Medications: Current Medications Acetaminophen (Acetaminophen 325 Mg Tablet) 650 mg PO Q6H PRN PRN Reason: Pain, Mild (Pain Scale 1-3) Albuterol Sulfate (Albuterol Sulfate (0.083%) 2.5 Mg/3 Ml Vial.Neb) 2.5 mg INHALE Q2H PRN PRN Reason: Shortness of Breath/Wheezing Albuterol/Ipratropium (Albuterol/Iprat 2.5/0.5mg 3 Ml Ampul.Neb) 3 ml INHALE RQ4H WHILE AWAKE [facility] Last Admin: 01/28/22 11:15 Dose: Not Given Documented by: Alprazolam (Alprazolam 0.5 Mg Tablet) 0.5 mg PO TID PRN PRN Reason: Anxiety Last Admin: 01/27/22 20:52 Dose: 0.5 mg Documented by: Aspirin (Aspirin Enteric Coated 81 Mg Tablet.) 81 mg PO DAILY [facility] Last Admin: 01/28/22 09:16 Dose: 81 mg Documented by: Bupropion HCl (Bupropion Hcl Xl 300 Mg Tab.Er.24h) 300 mg PO DAILY [facility] Last Admin: 01/28/22 09:18 Dose: 300 mg Documented by: Cyanocobalamin (Cyanocobalamin (Vitamin B-12) 1,000 Mcg Tablet) 1,000 mcg PO DAILY [facility] Last Admin: 01/28/22 09:17 Dose: 1,000 mcg Documented by: Diclofenac Sodium (Diclofenac Sodium Delayed Rel 75 Mg Tablet.Dr) 75 mg PO BID [facility] Last Admin: 01/28/22 09:19 Dose: 75 mg Documented by: Famotidine (Famotidine 20 Mg Tablet) 20 mg PO DAILY PRN PRN Reason: Acid Reflux Last Admin: 01/28/22 01:22 Dose: 20 mg Documented by: Fluticasone Propionate (Fluticasone Propionate Nasal 16 Gm [place]) 1 spray NOSTRIL-B DAILY [facility] Doxycycline Hyclate 100 mg/ (Sodium Chloride) 250 mls @ 166.67 mls/hr IV Q12H [facility] Last Infusion: 01/28/22 11:00 Dose: Infused Documented by: Metoprolol Succinate (Metoprolol Succinate Er 12.5 Mg Halftab.Er.24h) 12.5 mg PO DAILY [facility]; Protocol Last Admin: 01/28/22 09:18 Dose: 12.5 mg Documented by: Ondansetron HCl (Ondansetron Hcl 4 Mg/2 Ml Vial) 4 mg IVPUSH Q8H PRN PRN Reason: Nausea and Vomiting Oxycodone HCl (Oxycodone Hcl Immed Release 5 Mg Tablet) 5 mg PO Q6H PRN PRN Reason: Breakthrough Pain Last Admin: 01/28/22 09:27 Dose: 5 mg Documented by: Pantoprazole Sodium (Pantoprazole Sodium 40 Mg/10 Ml Vial) 40 mg IVPUSH BID@9030,1630 [facility] Last Admin: 01/28/22 09:04 Dose: 40 mg Documented by: Pharmacy Consult (Consult Rx Perform Med Rec) 1 each MISCELLANE ONCE PRN PRN Reason: Consult order Prednisone (Prednisone 20 Mg Tablet) 60 mg PO DAILY [facility] Sodium Chloride (0.9 % Sodium Chloride Flush 3 Ml Syringe) 3 ml IVFLUSH QSHIFT [facility] Last Admin: 01/28/22 08:17 Dose: Not Given Documented by: Vitamin D (Cholecalciferol (Vitamin D3) 25 Mcg Tablet) 25 mcg PO DAILY [facility] Last Admin: 01/28/22 09:17 Dose: 25 mcg Documented by: Home Medications Medication Instructions Recorded Confirmed Type albuterol sulfate 90 mcg/actuation 90 inh INHALATION Q4H PRN 12/07/20 01/27/22 History aerosol inhaler (ProAir HFA) alprazolam 0.5 mg tablet 1 tab PO TID PRN 12/07/20 01/27/22 History aspirin 81 mg tablet,delayed 81 mg PO DAILY 12/07/20 01/27/22 History release bupropion HCl 150 mg tablet,12 hr 1 tab PO BID 12/07/20 01/27/22 History sustained-release diclofenac sodium 75 mg 1 tab PO BID 12/07/20 01/27/22 History tablet,delayed release hydrocodone 7.5 mg-acetaminophen 1 tab PO TID PRN 12/07/20 01/27/22 History 325 mg tablet biotin 500 mcg capsule 1 mg PO DAILY 02/07/21 01/27/22 History cholecalciferol (vitamin D3) 25 1,000 unit PO DAILY 02/07/21 01/27/22 History mcg (1,000 unit) capsule (Vitamin D3) albuterol sulfate 2.5 mg INHALATION Q4H PRN 01/27/22 01/27/22 History cimetidine 400 mg tablet 1 tab PO DAILY PRN 01/27/22 01/27/22 History cyanocobalamin (vitamin B-12) 1,000 mcg PO DAILY 01/27/22 01/27/22 History 1,000 mcg tablet fluticasone propionate 50 1 spray INTRANASAL DAILY 01/27/22 01/27/22 History mcg/actuation nasal spray,suspension vitamin A 2,400 mcg capsule 2,400 mcg PO DAILY 01/27/22 01/27/22 History Allergies Allergy/AdvReac Type Severity Reaction Status Date / Time amoxicillin Allergy Unknown Hives Verified 01/28/22 04:29 penicillin V Allergy Unknown Hives Verified 01/28/22 04:29 Penicillins [PENICILLINS] Allergy Unknown HIVES Verified 01/28/22 04:29 Sulfa (Sulfonamide Allergy Unknown HIVES Verified 01/28/22 04:29 Antibiotics) [SULFA (SULFONAMIDE ANTIBIOTICS)] Physical Exam Vital signs: Vital Signs Temp 98.5 F 01/28/22 11:20 Pulse 97 01/28/22 11:20 Resp 16 01/28/22 11:20 BP 98/48 L 01/28/22 11:20 Pulse Ox 96 01/28/22 09:27 Intake & Output 01/27/22 01/28/22 01/28/22 18:59 06:59 18:59 Intake Total 50 / 400 350 / 400 600 / 600 Balance 50 / 400 350 / 400 600 / 600 Intake: Intake, Oral Amount 0 / 0 Intake (Blood Product) Amount 350 / 350 350 / 350 Red Blood Cells (E0382) Unit 350 / 350 [id number] Red Blood Cells (E0382) Unit 0 / 0 [id number] Red Blood Cells (E0382) Unit 0 / 0 350 / 350 [id number] Intake, IV Amount 50 / 50 250 / 250 Doxycycline Hyclate 100 mg In 0 250 / 250 .9 % Sodium Chloride 250 ml @ 166.67 mls/hr IV Q12H [facility] Rx#: [id number] Magnesium Sulfate/H2O 2 gm In 50 / 50 50 ml @ 25 mls/hr IV ONCE ONE Rx#:[id number] Other: Number of Unmeasured Voids 1 Weight 79.379 kg Weight 79.379 kg - Constitutional Present: moderate distress - Routine HEENT Exam Head: Present: normocephalic Eye: Present: normal appearance ENT: Present: mucous membranes moist - Routine Neck Exam Present: supple - Routine Respiratory Exam Present: CTAB - Routine Cardiovascular Exam Cardiovascular: Present: RRR, S1, S2 - Routine Abdominal Exam Present: nontender - Routine Extremities Exam Present: nontender - Routine Skin Exam Present: intact Hem/Onc Consult Result - Labs CBC & Chem 7: 01/28/22 08:34 01/27/22 20:46 Labs: Short CBC 01/27/22 01/27/22 01/28/22 Range/Units 20:17 20:45 08:34 WBC 10.7 9.8 9.3 (4.8-10.8) X10*3/uL Hgb 3.5 L* 3.5 L* 5.2 L* D (12.0-16.0) g/dl Hct 12.0 L* 11.9 L* 16.8 L* D (37.0-47.0) % Plt Count Not Reportable 91 L 82 L BMP 01/27/22 20:46 Sodium 141 Potassium 4.0 Chloride 109 H Carbon Dioxide 21 L BUN 28 H Creatinine 1.15 Calcium 8.4 Liver Function 01/27/22 01/28/22 Range/Units 20:46 08:34 Total Bilirubin 0.3 1.1 H (0.0-1.0) mg/dL Direct Bilirubin 0.2 0.5 (0.0-0.5) mg/dL AST 16 20 (5-31) U/L ALT 16 15 (0-31) U/L Alkaline Phosphatase 42 37 L (39-117) U/L Albumin 3.6 3.5 (3.5-5.0) g/dL Urine 01/27/22 Range/Units 13:10 Urine Color YELLOW Urine Appearance CLEAR Urine pH 5.5 (5.0-8.0) Ur Specific [place] 1.015 (1.005-1.025) Urine Protein NEG (NEG-TRACE) MG/DL Urine Glucose (UA) NEG (NEG) MG/DL Assessment and Plan Patient Active problem list reviewed?: Yes (1) Thrombocytopenia Problem details: Follow-up with Status: Acute Assessment and plan: This is a 75-year-old woman who presented with generalized weakness and shortness of breath. She does have a previous history of Iron deficiency anemia diagnosed in November 2020. Blood work from an outside lab: Revealed hemoglobin of 8.9 gram/dL with normal WBC count and platelets of 107 K. MCV 93.3 but elevated RDW of 15.4. Reticulocyte count of 1.96%, ferritin 10 NG/mL, serum iron 23 and% saturation of 5.7%. Vitamin B12 1252 pg/mL. Patient now presents with significant anemia. Hemoglobin down to 3.5. Her platelet count is actually at her baseline level. DIFFERENTIAL DIAGNOSIS: 1. AUTOIMMUNE HEMOLYTIC ANEMIA: Is a possibility. She does have ITP so could have Das syndrome. However hemolytic screen was done and came back negative. Steroids could be discontinued however she needs them for her asthma e xacerbation. 2. IRON DEFICIENCY ANEMIA: This is most likely. Although she does not have obvious GI blood losses, this is a distinct possibility given significant drop in hemoglobin and iron deficiency noted on blood work. PLAN: Will request for a Gastroenterology, consultation. She has not tolerated oral iron in the past because of constipation. She she has received parenteral iron therapy, in the past. Will give IV iron dextran. Will start out with the test Dose, then Benadryl and Tylenol. Can then calculate her dose based upon her weight and hemoglobin deficit, to bring it up to 14. Will continue to monitor her blood count, carefully. Thank you, Cc: . - Time Spent With Patient Time Spent with Patient (in minutes): 30
--- NOTE | 2022-01-28 13:37 | PC.NURSE ---
PT REPORTS FEELING BETTER SHE IS SITTING UP TALKING ON HER PHONE AND PLAYING GAMES ON HER PHONE. HER COLOR HAS IMPROVED. HER 3RD UNIT IS INFUSING SLOWLY
--- NOTE | 2022-01-28 14:13 | P.PNIM_ITS ---
Subjective Subjective Date of Service: 01/28/22 Interval History: Found to have profound anemia, Hb 3.5. Transfused 2u pRBCs and Hb now 5.2. Another 2u ordered. Denies hematochezia, melena, or menorrhagia. Breathing improved, much less dyspnea. Review of Systems Review of Systems: Yes all other systems are reviewed and are negative Physical Exam Vital Signs: Vital Signs: Last Vital Signs Temp 98.5 F 01/28/22 13:54 Pulse 88 01/28/22 13:54 Resp 15 01/28/22 13:54 BP 124/48 L 01/28/22 13:54 Pulse Ox 96 01/28/22 09:27 Oxygen Flow Rate 3 01/27/22 10:52 BMI result Body Mass Index 30.9 Gen: NAD HEENT: sclera anicteric, very pale mucus membranes Neck: supple Lungs: normal effort, good air entry, scattered exp wheezes Heart: regular rate and rhythm, no murmurs Abd: soft, non-tender, non-distended Ext: no edema Skin: warm/well-perfused Neuro: alert and oriented x3, no focal findings Psych: appropriate affect Objective Data Active Medications Acetaminophen (Acetaminophen 325 Mg Tablet) 650 mg PO Q6H PRN PRN Reason: Pain, Mild (Pain Scale 1-3) Albuterol Sulfate (Albuterol Sulfate (0.083%) 2.5 Mg/3 Ml Vial.Neb) 2.5 mg INHALE Q2H PRN PRN Reason: Shortness of Breath/Wheezing Albuterol/Ipratropium (Albuterol/Iprat 2.5/0.5mg 3 Ml Ampul.Neb) 3 ml INHALE RQ4H WHILE AWAKE [facility] Last Admin: 01/28/22 11:15 Dose: Not Given Documented by: WAYNE Non-Admin Reason: Patient Refused Alprazolam (Alprazolam 0.5 Mg Tablet) 0.5 mg PO TID PRN PRN Reason: Anxiety Last Admin: 01/27/22 20:52 Dose: 0.5 mg Documented by: MARITZA-SALONIICL Aspirin (Aspirin Enteric Coated 81 Mg Tablet.) 81 mg PO DAILY [facility] Last Admin: 01/28/22 09:16 Dose: 81 mg Documented by: ALFREDO Bupropion HCl (Bupropion Hcl Xl 300 Mg Tab.Er.24h) 300 mg PO DAILY [facility] Last Admin: 01/28/22 09:18 Dose: 300 mg Documented by: ALFREDO Cyanocobalamin (Cyanocobalamin (Vitamin B-12) 1,000 Mcg Tablet) 1,000 mcg PO DAILY [facility] Last Admin: 01/28/22 09:17 Dose: 1,000 mcg Documented by: ALFREDO Diclofenac Sodium (Diclofenac Sodium Delayed Rel 75 Mg Tablet.Dr) 75 mg PO BID [facility] Last Admin: 01/28/22 09:19 Dose: 75 mg Documented by: ALFREDO Famotidine (Famotidine 20 Mg Tablet) 20 mg PO DAILY PRN PRN Reason: Acid Reflux Last Admin: 01/28/22 13:48 Dose: 20 mg Documented by: ALFREDO Fluticasone Propionate (Fluticasone Propionate Nasal 16 Gm [place]) 1 spray NOSTRIL-B DAILY [facility] Doxycycline Hyclate 100 mg/ (Sodium Chloride) 250 mls @ 166.67 mls/hr IV Q12H [facility] Last Infusion: 01/28/22 11:00 Dose: 0 mls/hr Documented by: ALFREDO Metoprolol Succinate (Metoprolol Succinate Er 12.5 Mg Halftab.Er.24h) 12.5 mg PO DAILY [facility]; Protocol Last Admin: 01/28/22 09:18 Dose: 12.5 mg Documented by: ALFREDO Ondansetron HCl (Ondansetron Hcl 4 Mg/2 Ml Vial) 4 mg IVPUSH Q8H PRN PRN Reason: Nausea and Vomiting Oxycodone HCl (Oxycodone Hcl Immed Release 5 Mg Tablet) 5 mg PO Q6H PRN PRN Reason: Breakthrough Pain Last Admin: 01/28/22 09:27 Dose: 5 mg Documented by: ALFREDO Pantoprazole Sodium (Pantoprazole Sodium 40 Mg/10 Ml Vial) 40 mg IVPUSH BID@0630,1630 [facility] Last Admin: 01/28/22 09:04 Dose: 40 mg Documented by: ALFREDO Pharmacy Consult (Consult Rx Perform Med Rec) 1 each MISCELLANE ONCE PRN PRN Reason: Consult order Prednisone (Prednisone 20 Mg Tablet) 60 mg PO DAILY [facility] Sodium Chloride (0.9 % Sodium Chloride Flush 3 Ml Syringe) 3 ml IVFLUSH QSHIFT [facility] Last Admin: 01/28/22 08:17 Dose: Not Given Documented by: ALFREDO Non-Admin Reason: IV Running Vitamin D (Cholecalciferol (Vitamin D3) 25 Mcg Tablet) 25 mcg PO DAILY [facility] Last Admin: 01/28/22 09:17 Dose: 25 mcg Documented by: ALFREDO Labs CBC & Chem 7: 01/28/22 08:34 01/27/22 20:46 Labs: Laboratory Results - last 24 hr 01/27/22 01/27/22 01/27/22 12:08 16:02 16:02 MCV MCH MCHC RDW Plt Count MPV Immature Gran % (Auto) Neut % (Auto) Lymph % (Auto) Woodson % (Auto) Eos % (Auto) Baso % (Auto) Lymph # (Auto) [place] # (Auto) Eos # (Auto) Baso # (Auto) Abs Immat Gran (auto) Absolute Neuts (auto) Absolute Nucleated RBC Nucleated RBC % (auto) Smear Tech's Comments Smear Path Review Absolute Retic Percent Retic Immature Retic Fraction Retic Hgb Equivalent D-Dimer High Sensitivty Anion Gap Estim Creat Clear Calc Estimated GFR Random Glucose Lactic Acid 1.7 Calcium Iron TIBC % Saturation Unsat Iron Binding Total Bilirubin Direct Bilirubin AST ALT Alkaline Phosphatase Lactate Dehydrogenase Troponin I High Sens 27.2 H B-Natriuretic Peptide Total Protein Albumin Vitamin B12 Folate Procalcitonin 0.10 Blood Type Antibody Screen ABRAN, Polyspecific Positive ABRAN Work-up Crossmatch 01/27/22 01/27/22 01/27/22 16:31 20:17 20:45 MCV 87.6 87.5 MCH 25.5 L 25.7 L MCHC 29.2 L 29.4 L RDW 16.8 H 16.9 H Plt Count Not Reportable 91 L MPV Not Reportable Not Reportable Immature Gran % (Auto) 0.9 H 0.8 H Neut % (Auto) 93.6 H 93.3 H Lymph % (Auto) 3.5 L 3.6 L Woodson % (Auto) 1.9 L 2.2 Eos % (Auto) 0.0 0.0 Baso % (Auto) 0.1 0.1 Lymph # (Auto) 0.4 L 0.4 L Woodson # (Auto) 0.2 0.2 Eos # (Auto) 0.0 0.0 Baso # (Auto) 0.0 0.0 Abs Immat Gran (auto) 0.10 H 0.08 H Absolute Neuts (auto) 10.0 H 9.2 H Absolute Nucleated RBC 0.030 H 0.020 H Nucleated RBC % (auto) 0.3 H 0.2 Smear Tech's Comments VERIFIED Smear Path Review Absolute Retic Percent Retic Immature Retic Fraction Retic Hgb Equivalent D-Dimer High Sensitivty < 150 Anion Gap Estim Creat Clear Calc Estimated GFR Random Glucose Lactic Acid Calcium Iron TIBC % Saturation Unsat Iron Binding Total Bilirubin Direct Bilirubin AST ALT Alkaline Phosphatase Lactate Dehydrogenase Troponin I High Sens B-Natriuretic Peptide Total Protein Albumin Vitamin B12 Folate Procalcitonin Blood Type Antibody Screen ABRAN, Polyspecific Positive ABRAN Work-up Crossmatch 01/27/22 01/27/22 01/27/22 20:46 22:50 22:50 MCV MCH MCHC RDW Plt Count MPV Immature Gran % (Auto) Neut % (Auto) Lymph % (Auto) Woodson % (Auto) Eos % (Auto) Baso % (Auto) Lymph # (Auto) Woodson # (Auto) Eos # (Auto) Baso # (Auto) Abs Immat Gran (auto) Absolute Neuts (auto) Absolute Nucleated RBC Nucleated RBC % (auto) Smear Tech's Comments Smear Path Review Absolute Retic Percent Retic Immature Retic Fraction Retic Hgb Equivalent D-Dimer High Sensitivty Anion Gap 15 Estim Creat Clear Calc 40.8 Estimated GFR 46 Random Glucose 181 H Lactic Acid Calcium 8.4 Iron 10 L TIBC 364 % Saturation 3 L Unsat Iron Binding 354 Total Bilirubin 0.3 Direct Bilirubin 0.2 AST 16 ALT 16 Alkaline Phosphatase 42 Lactate Dehydrogenase Troponin I High Sens B-Natriuretic Peptide Total Protein 5.4 L Albumin 3.6 Vitamin B12 Folate Procalcitonin Blood Type O Positive Antibody Screen NEGATIVE ABRAN, Polyspecific NEGATIVE Positive ABRAN Work-up TNP Crossmatch See Detail 01/27/22 01/28/22 01/28/22 22:50 05:57 08:34 MCV 88.0 MCH 27.2 MCHC 31.0 RDW 15.9 Plt Count 82 L MPV Not Reportable Immature Gran % (Auto) 1.3 H Neut % (Auto) 83.6 H Lymph % (Auto) 4.9 L Woodson % (Auto) 10.1 Eos % (Auto) 0.0 Baso % (Auto) 0.1 Lymph # (Auto) 0.5 L Woodson # (Auto) 0.9 Eos # (Auto) 0.0 Baso # (Auto) 0.0 Abs Immat Gran (auto) 0.12 H Absolute Neuts (auto) 7.8 Absolute Nucleated RBC 0.030 H Nucleated RBC % (auto) 0.3 H Smear Tech's Comments Smear Path Review Absolute Retic 0.052 Percent Retic 2.8 H Immature Retic Fraction 15.2 Retic Hgb Equivalent 19.5 L D-Dimer High Sensitivty Anion Gap Estim Creat Clear Calc Estimated GFR Random Glucose Lactic Acid Calcium Iron TIBC % Saturation Unsat Iron Binding Total Bilirubin Direct Bilirubin AST ALT Alkaline Phosphatase Lactate Dehydrogenase Troponin I High Sens B-Natriuretic Peptide 241 H Total Protein Albumin Vitamin B12 > 2000 H Folate 15.2 Procalcitonin Blood Type Antibody Screen ABRAN, Polyspecific Positive ABRAN Work-up Crossmatch 01/28/22 08:34 MCV MCH MCHC RDW Plt Count MPV Immature Gran % (Auto) Neut % (Auto) Lymph % (Auto) Woodson % (Auto) Eos % (Auto) Baso % (Auto) Lymph # (Auto) Woodson # (Auto) Eos # (Auto) Baso # (Auto) Abs Immat Gran (auto) Absolute Neuts (auto) Absolute Nucleated RBC Nucleated RBC % (auto) Smear Tech's Comments Smear Path Review Absolute Retic Percent Retic Immature Retic Fraction Retic Hgb Equivalent D-Dimer High Sensitivty Anion Gap Estim Creat Clear Calc Estimated GFR Random Glucose Lactic Acid Calcium Iron TIBC % Saturation Unsat Iron Binding Total Bilirubin 1.1 H Direct Bilirubin 0.5 AST 20 ALT 15 Alkaline Phosphatase 37 L Lactate Dehydrogenase 269 H Troponin I High Sens B-Natriuretic Peptide Total Protein 5.2 L Albumin 3.5 Vitamin B12 Folate Procalcitonin Blood Type Antibody Screen ABRAN, Polyspecific Positive ABRAN Work-up Crossmatch Assessment and Plan (1) Anemia: Status: Acute (2) Thrombocytopenia: Status: Acute Plan hospital d#2 76yo F with COPD/asthma, chronic HFrEF, and ITP presenting with 3-4 days of progressive cough productive of sputum, dyspnea, and wheezing.? Arrived hypoxic and question of R infrahilar infiltrate. Found to be profoundly anemic. # hypoproliferative, normocytic anemia - ABRAN negative, LDH mildly elevated - has iron deficiency - Heme consult, transfuse another 2u pRBCs - GI consult, FOBT # COPD/asthma exacerbation - continue 60 mg prednisone, nebulized bronchodilators standing/prn # pneumonia - follow BCx, trend PCT, doxycycline d#2 # hypoxic respiratory failure - resolved, weaned off O2 # chronic HFrEF - euvolemic; continue metoprolol succinate # mood disorder - continue alprazolam, bupropion # VTE ppx - SCDs, avoid heparinoids given anemia + thrombocytopenia Quality Stroke Does the patient have a stroke diagnosis?: No VTE Prior VTE?: No VTE Risk Level:: Medical - moderate - high VTE Device Contraindication: N/A - Device Ordered VTE Drug Contraindication: Treatment Not Indicated
--- NOTE | 2022-01-28 14:57 | PM.GICN ---
History of Present Illness Data of Consult Service Date: 01/28/22 Requesting physician: Hung Sullivan Primary Care Provider: Joseph Magana MD HPI Reason for consult: severe anemia 76 YF with COPD/chronic bronchitis/asthma, anxiety, GERD, chronic HFrEF, and chronic ITP seen at [facility] on 01/27/22 with 4 days of worsening cough with yellow sputum, nasal congestion, sneezing, dyspnea, and wheezing unrelieved by her albuterol inhaler or nebulizer.? She is on an inhaled steroid as her controller medication.? She is not on home O2.? No recent steroids or antibiotics.? Has been vaccinated against Covid-19.? Pt has noted worsening fatigue, WALDRON and listlessness over the past several weeks - worst since last Monday. Pt recently switched her PCP and was not taking any of her usual medications for 5 weeks. She complains of poor appetite and dribbling at food since she did not feel good. She also reports having stomach flu with diarrhea - resolved with some OTC medications. She denies chest pain, palpitations, leg swelling, fever, chills, or hemoptysis.? Upon arrival in the ED, RA SaO2 was 88% and she was placed on 2L of O2 via NC.? CXR showed a possible R infrahilar infiltrate.? Two serial hs-Tn-I were 24.9 then 27.2.? EKG sinus tachycardia with no ischemic changes.? Procalcitonin pending.? PCR for influenza, Covid-19, and RSV negative.? She was given a dose of methylprednisolone and levofloxacin, along with magnesium, Duoneb, and an additional albuterol nebulization. Found to have profound anemia, Hb 3.5.? Review of her labs in the computer revealed the following trend: ? Hemoglobin:02/05: 10.3. ? Hemoglobin 01/27/22: 3.5. ? Hemoglobin 01/28/22: 5.2. Transfused 2u pRBCs and Hb now 5.2.? Another 2u ordered. She was given a dose of methylprednisolone and levofloxacin, along with magnesium, Duoneb, and an additional albuterol nebulization. Denies hematochezia, melena, or menorrhagia. Pt complains of intermittent constipation and notes minor rectal bleeding when she strains to have a bowel movement. Patient was told she had a heart murmur - per patient's reports her cardiac panchal has been negative Denies problems with anesthesia in the past. Pt takes a baby aspirin daily and denies being on chronic anticoagulation. 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 Patient denies known family history of colon polyps, colon cancer or other GI malignancies. A sister had lung cancer, another sister had lupus. Mother had COPD. IMAGING STUDIES: 01/27/[address] SCAN SHOWED: No retroperitoneal hematoma. No acute findings in the abdomen or pelvis. ?Cholelithiasis. No evidence of cholecystitis.? PAST EGD/COLONOSCOPY: Pt had an EGD (showed DU) and Colon (negative per pt) at [facility] > 11 yrs ago PAST GI HISTORY BY REVIEW OF MEDICAL RECORDS: 12/22/21 patient was seen by SHAYLEE Grier in the GI clinic: She says she has had a stomach ulcer for 20 years and has never had an EGD-She takes tagamet-, she has epigastric pain, she is sure that that it is her ulcer-seems to act up every now and again Appetite- excellent-occasional nausea no vomiting, heartburn intermittently, Bowels- like clock work last colonoscopy over 5 years ago at [facility].? She has no abdominal pain, she has no rectal bleeding Patient states she gets left-sided chest pain however she associates this to anxiety-no dizziness, diaphoreses, She does have shortness of breath on exertion She was prescribed omeprazole in [place] and advised to schedule an upper endoscopy and colonoscopy. When called by the GI schedule ir patient refused. Review of Systems Review of Systems: Yes all other systems are reviewed and are negative Constitutional: Constitutional: Reports fatigue, Reports poor appetite and Reports weakness Cardiovascular: Cardiovascular: Reports dyspnea on exertion Respiratory: Respiratory: Reports dyspnea on exertion Musculoskeletal: Musculoskeletal: Reports arthralgias Neurologic: Reports weakness Endocrine: Endocrine: Reports fatigue [facility] Past Medical History Medical History (Updated 01/28/22 @ 18:13 by Olga Castellano MD) Anxiety Asthma COPD exacerbation GERD (gastroesophageal reflux disease) Heart failure with reduced ejection fraction Osteoarthritis Thrombocytopenia Family History Family History Sister Lung cancer Lupus Sister Lung cancer Maternal Aunt Lupus Surgical History Surgical History Hx of hysterectomy Hx of oophorectomy Hx of total knee replacement Social History Social History Household Members: None Household Members Other:: lives alone Housing: Condominium Do you presently have visiting nurse or other home services: No Alcohol intake: current Alcohol intake frequency: holidays/special occasions only Patient Tobacco Use Status: Former Tobacco user service: No ( career [employer]) Current occupational status: employed Meds Allergies Allergy/AdvReac Type Severity Reaction Status Date / Time amoxicillin Allergy Unknown Hives Verified 01/28/22 04:29 penicillin V Allergy Unknown Hives Verified 01/28/22 04:29 Penicillins [PENICILLINS] Allergy Unknown HIVES Verified 01/28/22 04:29 Sulfa (Sulfonamide Allergy Unknown HIVES Verified 01/28/22 04:29 Antibiotics) [SULFA (SULFONAMIDE ANTIBIOTICS)] Active Medications: Current Medications Acetaminophen (Acetaminophen 325 Mg Tablet) 650 mg PO Q6H PRN PRN Reason: Pain, Mild (Pain Scale 1-3) Albuterol Sulfate (Albuterol Sulfate (0.083%) 2.5 Mg/3 Ml Vial.Neb) 2.5 mg INHALE Q2H PRN PRN Reason: Shortness of Breath/Wheezing Albuterol/Ipratropium (Albuterol/Iprat 2.5/0.5mg 3 Ml Ampul.Neb) 3 ml INHALE RQ4H WHILE AWAKE [facility] Last Admin: 01/28/22 11:15 Dose: Not Given Documented by: Alprazolam (Alprazolam 0.5 Mg Tablet) 0.5 mg PO TID PRN PRN Reason: Anxiety Last Admin: 01/27/22 20:52 Dose: 0.5 mg Documented by: Aspirin (Aspirin Enteric Coated 81 Mg Tablet.) 81 mg PO DAILY [facility] Last Admin: 01/28/22 09:16 Dose: 81 mg Documented by: Bupropion HCl (Bupropion Hcl Xl 300 Mg Tab.Er.24h) 300 mg PO DAILY [facility] Last Admin: 01/28/22 09:18 Dose: 300 mg Documented by: Cyanocobalamin (Cyanocobalamin (Vitamin B-12) 1,000 Mcg Tablet) 1,000 mcg PO DAILY [facility] Last Admin: 01/28/22 09:17 Dose: 1,000 mcg Documented by: Diclofenac Sodium (Diclofenac Sodium Delayed Rel 75 Mg Tablet.Dr) 75 mg PO BID [facility] Last Admin: 01/28/22 09:19 Dose: 75 mg Documented by: Famotidine (Famotidine 20 Mg Tablet) 20 mg PO DAILY PRN PRN Reason: Acid Reflux Last Admin: 01/28/22 13:48 Dose: 20 mg Documented by: Fluticasone Propionate (Fluticasone Propionate Nasal 16 Gm [place]) 1 spray NOSTRIL-B DAILY [facility] Doxycycline Hyclate 100 mg/ (Sodium Chloride) 250 mls @ 166.67 mls/hr IV Q12H [facility] Last Infusion: 01/28/22 11:00 Dose: Infused Documented by: Metoprolol Succinate (Metoprolol Succinate Er 12.5 Mg Halftab.Er.24h) 12.5 mg PO DAILY [facility]; Protocol Last Admin: 01/28/22 09:18 Dose: 12.5 mg Documented by: Ondansetron HCl (Ondansetron Hcl 4 Mg/2 Ml Vial) 4 mg IVPUSH Q8H PRN PRN Reason: Nausea and Vomiting Oxycodone HCl (Oxycodone Hcl Immed Release 5 Mg Tablet) 5 mg PO Q6H PRN PRN Reason: Breakthrough Pain Last Admin: 01/28/22 09:27 Dose: 5 mg Documented by: Pantoprazole Sodium (Pantoprazole Sodium 40 Mg/10 Ml Vial) 40 mg IVPUSH BID@6630,1630 [facility] Last Admin: 01/28/22 09:04 Dose: 40 mg Documented by: Pharmacy Consult (Consult Rx Perform Med Rec) 1 each MISCELLANE ONCE PRN PRN Reason: Consult order Prednisone (Prednisone 20 Mg Tablet) 60 mg PO DAILY [facility] Sodium Chloride (0.9 % Sodium Chloride Flush 3 Ml Syringe) 3 ml IVFLUSH QSHIFT [facility] Last Admin: 01/28/22 08:17 Dose: Not Given Documented by: Vitamin D (Cholecalciferol (Vitamin D3) 25 Mcg Tablet) 25 mcg PO DAILY [facility] Last Admin: 01/28/22 09:17 Dose: 25 mcg Documented by: Home Medications Medication Instructions Recorded Confirmed Last Taken Type albuterol sulfate 90 mcg/actuation 90 inh INHALATION Q4H PRN 12/07/20 01/27/22 Unknown History aerosol inhaler (ProAir HFA) alprazolam 0.5 mg tablet 1 tab PO TID PRN 12/07/20 01/27/22 Unknown History aspirin 81 mg tablet,delayed 81 mg PO DAILY 12/07/20 01/27/22 Unknown History release bupropion HCl 150 mg tablet,12 hr 1 tab PO BID 12/07/20 01/27/22 Unknown History sustained-release diclofenac sodium 75 mg 1 tab PO BID 12/07/20 01/27/22 Unknown History tablet,delayed release hydrocodone 7.5 mg-acetaminophen 1 tab PO TID PRN 12/07/20 01/27/22 Unknown History 325 mg tablet biotin 500 mcg capsule 1 mg PO DAILY 02/07/21 01/27/22 Unknown History cholecalciferol (vitamin D3) 25 1,000 unit PO DAILY 02/07/21 01/27/22 Unknown History mcg (1,000 unit) capsule (Vitamin D3) albuterol sulfate 2.5 mg INHALATION Q4H PRN 01/27/22 01/27/22 Unknown History cimetidine 400 mg tablet 1 tab PO DAILY PRN 01/27/22 01/27/22 Unknown History cyanocobalamin (vitamin B-12) 1,000 mcg PO DAILY 01/27/22 01/27/22 Unknown History 1,000 mcg tablet fluticasone propionate 50 1 spray INTRANASAL DAILY 01/27/22 01/27/22 Unknown History mcg/actuation nasal spray,suspension vitamin A 2,400 mcg capsule 2,400 mcg PO DAILY 01/27/22 01/27/22 Unknown History Physical Exam Vital Signs: Vital Signs: Last Vital Signs Temp 98.5 F 01/28/22 13:54 Pulse 88 01/28/22 13:54 Resp 15 01/28/22 13:54 BP 124/48 L 01/28/22 13:54 Pulse Ox 96 01/28/22 09:27 Oxygen Flow Rate 3 01/27/22 10:52 BMI result Body Mass Index 30.9 Const: General: healthy appearing and no acute distress Nutritional Appearance: average body habitus Orientation/consciousness: patient oriented x3 Limitations: no limitations HEENT: Head: Yes normal to inspection Ears: hearing grossly normal bilaterally Mouth: Normal oral and palatal mucosa present Eyes: Sclerae: sclerae normal Pupils: Equal, round and reactive pupils present Neck: Neck: Yes normal visual inspection Chest: Chest palpation & inspection: normal inspection of the chest Resp: Effort & Inspection: normal respiratory effort Auscultation: clear to auscultation bilaterally Cardio: Palpation: normal PMI Rate: regular rate Rhythm: regular rhythm Heart sounds: S1 normal heart sound present, S2 normal heart sound present and Murmur heart sound present (3/6 ejection systolic murmur at LSB) GI: Palpation (GI): Soft to palpation, nontender and No hepatosplenomegaly present Auscultation: normal bowel sounds Rectal Exam - Female: deferred Skin: General skin exam: no rashes or lesions noted Neuro: General: patient oriented x3, gait normal and moves all extremities Cranial nerves: Yes Equal, round and reactive pupils present Extrem: General: Yes pedal edema (1+ pitting edema left LE, trace edema rt LE) Psych: Appearance: grossly normal Mental Status: mental status grossly normal Results Labs CBC & Chem 7: 01/30/22 05:53 01/27/22 20:46 Labs: Short CBC 01/27/22 01/27/22 01/28/22 Range/Units 20:17 20:45 08:34 WBC 10.7 9.8 9.3 (4.8-10.8) X10*3/uL Hgb 3.5 L* 3.5 L* 5.2 L* D (12.0-16.0) g/dl Hct 12.0 L* 11.9 L* 16.8 L* D (37.0-47.0) % Plt Count Not Reportable 91 L 82 L BMP 01/27/22 20:46 Sodium 141 Potassium 4.0 Chloride 109 H Carbon Dioxide 21 L BUN 28 H Creatinine 1.15 Calcium 8.4 Liver Function 01/27/22 01/28/22 Range/Units 20:46 08:34 Total Bilirubin 0.3 1.1 H (0.0-1.0) mg/dL Direct Bilirubin 0.2 0.5 (0.0-0.5) mg/dL AST 16 20 (5-31) U/L ALT 16 15 (0-31) U/L Alkaline Phosphatase 42 37 L (39-117) U/L Albumin 3.6 3.5 (3.5-5.0) g/dL Assessment and Plan (1) Anemia: Status: Acute (2) GERD (gastroesophageal reflux disease): Status: Acute Plan 76 YF with COPD/chronic bronchitis/asthma, anxiety, GERD, chronic HFrEF, and chronic ITP seen at [facility] on 01/27/22 with 4 days of worsening cough with yellow sputum, nasal congestion, sneezing, dyspnea, and wheezing unrelieved by her albuterol inhaler or nebulizer.? Pt has noted worsening fatigue, poor appetite, WALDRON and listlessness over the past several weeks - worst since last Monday. Found to have profound anemia, Hb 3.5.? Transfused 2u pRBCs and Hb now 5.2.? Another 2u ordered. iron studies are consistent with iron deficiency anemia. Iron def anemia is most likely related to slow blood loss from upper versus LGI tract. Her PCP had advised an EGD and colon - pt has been unable to schedule due to transportation issues. RECOMMENDATIONS: 1. Monitor CBC daily post blood transfusion. 2. Clear liquid diet and Golyte prep on 01/30/22 for EGD and Colonoscopy on 01/31/22 - discussed with the patient and she agreed Procedures Date of Service Date of Service: 01/28/22
[2022-01-28 15:27] LABS: Ferritin 10 ng/mL (10-250)
[2022-01-28] MEDS: Albuterol/Iprat 2.5/0.5MG 3 ML AMPUL.NEB INHALE (17:05)
[2022-01-28] MEDS: ALPRAZolam 0.5 MG TABLET PO (17:25)
[2022-01-28] MEDS: diphenhydrAMINE HCL 25 MG TABLET 50 MG PO (18:40)
[2022-01-28] MEDS: Acetaminophen 325 MG TABLET 650 MG PO (18:40)
[2022-01-28] MEDS: Iron Dextran Complex 25 MG in 0.9 % Sodium Chloride 50 ML 202 MG IV (18:45)
--- NOTE | 2022-01-28 19:18 | PC.NURSE ---
pt did not tolerate her iron infusion and requested for it to be discontinued Hospitalist aware
[2022-01-28] MEDS: ondansetron HCL 4 MG/2 ML VIAL IVPUSH (21:29)
[2022-01-28] MEDS: 0.9 % Sodium Chloride Flush 3 ML SYRINGE IVFLUSH (21:30)
[2022-01-29] VITALS (12 sets, daily range): BP systolic 103–117; BP diastolic 47–62; PULSE 71–94; RESP 16–20; TEMP 36.2–37.3; O2SAT 91–100
[2022-01-29] MEDS: ALPRAZolam 0.5 MG TABLET PO ×3 (01:13→23:43)
[2022-01-29] MEDS: Pantoprazole Sodium 40 MG/10 ML VIAL IVPUSH ×2 (05:40→17:00)
[2022-01-29 06:21] LABS: Baso%MD 0.2 %; Eos%MD 0.3 %; Hematocrit 23.1 % (37.0-47.0); Hemoglobin 7.2 g/dl (12.0-16.0); IG%MD 1.4 %; Lymph%MD 9.8 %; Mean Corpuscular HGB Conc 31.2 g/dl (31.0-35.0); Mean Corpuscular Hemoglobin 28.1 pg (27.0-33.0); Mean Corpuscular Volume 90.2 fL (80.0-98.0); Mono%MD 8.7 %; NRBC Pct Auto 0.5 /100WBC (0.0-0.2); Neut%MD 79.6 %; Red Blood Count 2.56 X10*6/uL (4.20-5.50); Red Cell Distribution Width 15.8 % (11.0-16.0); White Blood Count 11.9 X10*3/uL (4.8-10.8)
[2022-01-29 06:23] LABS: PLT ABN DIST 1; Platelet Count 60 X10*3/uL (160-400)
[2022-01-29 08:16] LABS: Band Neutrophils Percent 1 % (3-5); Hypochromasia 1+ (5-14) /OIF; Lymphocytes Absolute Manual 1.3 X10*3/uL (1.2-4.9); Lymphocytes Percent Manual 11 % (20-40); Monocytes Absolute Manual 0.5 X10*3/uL (0.1-1.2); Monocytes Percent Manual 4 % (2-11); Neutrophils Absolute Manual 10.1 X10*3/uL (2.0-8.3); Neutrophils Percent Manual 84 % (45-73); Nucleated Red Blood Cells 1 /100WBC (0-0); Ovalocytes 1+ (5-14) /OIF; RBC Morphology NOTED
[2022-01-29 08:17] LABS: Large Platelet PRESENT; Platelet Estimate DECREASED (NORMAL); Platelet Morphology Comment NOTED; Polychromasia 1+ (0-2) /OIF
[2022-01-29] MEDS: Albuterol/Iprat 2.5/0.5MG 3 ML AMPUL.NEB INHALE ×4 (08:19→19:18)
[2022-01-29] MEDS: Cholecalciferol (Vitamin D3) 25 MCG TABLET PO (09:23)
[2022-01-29] MEDS: 0.9 % Sodium Chloride Flush 3 ML SYRINGE IVFLUSH ×3 (09:23→20:33)
[2022-01-29] MEDS: Metoprolol Succinate ER 12.5 MG HALFTAB.ER.24H PO (09:23)
[2022-01-29] MEDS: buPROPion HCl XL 300 MG TAB.ER.24H PO (09:23)
[2022-01-29] MEDS: Cyanocobalamin (Vitamin B-12) 1,000 MCG TABLET 1000 MCG PO (09:23)
[2022-01-29] MEDS: Diclofenac Sodium Delayed Rel 75 MG TABLET.DR PO ×2 (09:23→20:42)
[2022-01-29] MEDS: predniSONE 20 MG TABLET 40 MG PO (09:23)
[2022-01-29] MEDS: Aspirin Enteric Coated 81 MG TABLET.DR PO (09:23)
[2022-01-29] MEDS: Fluticasone Propionate Nasal 16 GM SPRAY 1 SPRAY NOSTRIL-B (09:24)
[2022-01-29] MEDS: Doxycycline Hyclate 100 MG in 0.9 % Sodium Chloride 250 ML 166.67 MG IV ×2 (11:17→23:17)
--- NOTE | 2022-01-29 11:51 | HO.PM.IMPN ---
Subjective Subjective Date of Service: 01/29/22 Interval History: Feels much better after transfusion. Wheezing improved. Waiting for EGD/C-scope 01/31. Notes occasional black stools. Review of Systems Review of Systems: Yes all other systems are reviewed and are negative Physical Exam Vital Signs: Vital Signs: Last Vital Signs Temp 97.1 F 01/29/22 08:00 Pulse 73 01/29/22 08:23 Resp 20 01/29/22 08:23 BP 110/58 L 01/29/22 08:00 Pulse Ox 96 01/29/22 08:00 Oxygen Flow Rate 3 01/27/22 10:52 BMI result Body Mass Index 30.9 Gen: NAD HEENT: sclera anicteric, very pale mucus membranes Neck: supple Lungs: normal effort, good air entry, scattered exp wheezes Heart: regular rate and rhythm, no murmurs Abd: soft, non-tender, non-distended Ext: no edema Skin: warm/well-perfused Neuro: alert and oriented x3, no focal findings Psych: appropriate affect Objective Data Active Medications Acetaminophen (Acetaminophen 325 Mg Tablet) 650 mg PO Q6H PRN PRN Reason: Pain, Mild (Pain Scale 1-3) Albuterol Sulfate (Albuterol Sulfate (0.083%) 2.5 Mg/3 Ml Vial.Neb) 2.5 mg INHALE Q2H PRN PRN Reason: Shortness of Breath/Wheezing Albuterol/Ipratropium (Albuterol/Iprat 2.5/0.5mg 3 Ml Ampul.Neb) 3 ml INHALE RQ4H WHILE AWAKE [facility] Last Admin: 01/29/22 08:19 Dose: 3 ml Documented by: PIOTR Alprazolam (Alprazolam 0.5 Mg Tablet) 0.5 mg PO TID PRN PRN Reason: Anxiety Last Admin: 01/29/22 01:13 Dose: 0.5 mg Documented by: DAE Aspirin (Aspirin Enteric Coated 81 Mg Tablet.) 81 mg PO DAILY [facility] Last Admin: 01/29/22 09:23 Dose: 81 mg Documented by: JANETTE Bupropion HCl (Bupropion Hcl Xl 300 Mg Tab.Er.24h) 300 mg PO DAILY [facility] Last Admin: 01/29/22 09:23 Dose: 300 mg Documented by: JANETTE Cyanocobalamin (Cyanocobalamin (Vitamin B-12) 1,000 Mcg Tablet) 1,000 mcg PO DAILY [facility] Last Admin: 01/29/22 09:23 Dose: 1,000 mcg Documented by: JANETTE Diclofenac Sodium (Diclofenac Sodium Delayed Rel 75 Mg Tablet.) 75 mg PO BID [facility] Last Admin: 01/29/22 09:23 Dose: 75 mg Documented by: JANETTE Famotidine (Famotidine 20 Mg Tablet) 20 mg PO DAILY PRN PRN Reason: Acid Reflux Last Admin: 01/28/22 13:48 Dose: 20 mg Documented by: ALFREDO Fluticasone Propionate (Fluticasone Propionate Nasal 16 Gm [place]) 1 spray NOSTRIL-B DAILY [facility] Last Admin: 01/29/22 09:24 Dose: 1 spray Documented by: JANETTE Doxycycline Hyclate 100 mg/ (Sodium Chloride) 250 mls @ 166.67 mls/hr IV Q12H [facility] Last Admin: 01/29/22 11:17 Dose: 166.67 mls/hr Documented by: JANETTE Iron Sucrose 100 mg/ Sodium (Chloride) 55 mls @ 220 mls/hr IV DAILY [facility] Stop: 01/31/22 09:14 Metoprolol Succinate (Metoprolol Succinate Er 12.5 Mg Halftab.Er.24h) 12.5 mg PO DAILY [facility]; Protocol Last Admin: 01/29/22 09:23 Dose: 12.5 mg Documented by: JANETTE Ondansetron HCl (Ondansetron Hcl 4 Mg/2 Ml Vial) 4 mg IVPUSH Q8H PRN PRN Reason: Nausea and Vomiting Last Admin: 01/28/22 21:29 Dose: 4 mg Documented by: DAE Oxycodone HCl (Oxycodone Hcl Immed Release 5 Mg Tablet) 5 mg PO Q6H PRN PRN Reason: Breakthrough Pain Last Admin: 01/28/22 21:29 Dose: 5 mg Documented by: DAE Pantoprazole Sodium (Pantoprazole Sodium 40 Mg/10 Ml Vial) 40 mg IVPUSH BID@0630,1630 [facility] Last Admin: 01/29/22 05:40 Dose: 40 mg Documented by: HO.CROP Pharmacy Consult (Consult Rx Perform Med Rec) 1 each MISCELLANE ONCE PRN PRN Reason: Consult order Polyethylene Glycol/Electrolytes (Peg 3350/Na Sulf,Bicarb,Cl/Kcl 4,000 Ml Soln.Recon) 4,000 ml PO ONCE ONE Stop: 01/29/22 16:31 Prednisone (Prednisone 20 Mg Tablet) 40 mg PO DAILY [facility] Last Admin: 01/29/22 09:23 Dose: 40 mg Documented by: JANETTE Sodium Chloride (0.9 % Sodium Chloride Flush 3 Ml Syringe) 3 ml IVFLUSH QSHIFT [facility] Last Admin: 01/29/22 09:23 Dose: 3 ml Documented by: JANETTE Vitamin D (Cholecalciferol (Vitamin D3) 25 Mcg Tablet) 25 mcg PO DAILY [facility] Last Admin: 01/29/22 09:23 Dose: 25 mcg Documented by: JANETTE Labs CBC & Chem 7: 01/29/22 05:24 01/27/22 20:46 Labs: Laboratory Results - last 24 hr 01/27/22 01/27/22 01/28/22 20:17 22:50 08:34 MCV MCH MCHC RDW Plt Count MPV Absolute Nucleated RBC Nucleated RBC % (auto) Neutrophils % (Manual) Band Neutrophils % Lymphocytes % (Manual) Monocytes % (Manual) Abs Neuts (Manual) Lymphocytes # (Manual) Monocytes # (Manual) Nucleated RBCs Platelet Estimate Large Platelets Plt Morphology Comment RBC Morphology Polychromasia Hypochromasia Ovalocytes Smear Path Review Ferritin 10 Blood Type O Positive Antibody Screen NEGATIVE ABRAN, Polyspecific NEGATIVE Positive ABRAN Work-up TNP Crossmatch See Detail 01/29/22 05:24 MCV 90.2 MCH 28.1 MCHC 31.2 RDW 15.8 Plt Count 60 L D MPV Not Reportable Absolute Nucleated RBC 0.060 H Nucleated RBC % (auto) 0.5 H Neutrophils % (Manual) 84 H Band Neutrophils % 1 L Lymphocytes % (Manual) 11 L Monocytes % (Manual) 4 Abs Neuts (Manual) 10.1 H Lymphocytes # (Manual) 1.3 Monocytes # (Manual) 0.5 Nucleated RBCs 1 H Platelet Estimate DECREASED Large Platelets PRESENT Plt Morphology Comment NOTED RBC Morphology NOTED Polychromasia 1+ (0-2) Hypochromasia 1+ (5-14) Ovalocytes 1+ (5-14) Smear Path Review Ferritin Blood Type Antibody Screen ABRAN, Polyspecific Positive ABRAN Work-up Crossmatch Microbiology Microbiology Results: Microbiology 01/27/22 22:50 Blood Culture - Preliminary Blood - Arterial No growth after 24 hours. 01/27/22 16:31 Blood Culture - Preliminary Blood - Arterial No growth after 24 hours. 01/27/22 16:31 Blood Culture - Preliminary Blood - Arterial No growth after 24 hours. 01/27/22 16:05 Blood Culture - Preliminary Blood - Arterial No growth after 24 hours. Assessment and Plan (1) Anemia: Status: Acute (2) Thrombocytopenia: Status: Acute Plan hospital d#3 76yo F with COPD/asthma, chronic HFrEF, and ITP presenting with 3-4 days of progressive cough productive of sputum, dyspnea, and wheezing.? Arrived hypoxic and question of R infrahilar infiltrate. Found to be profoundly anemic. # severe iron deficiency anemia - transfused 3u pRBCs 01/27, 1u pRBCs 01/28, will give another 1u pRBCs today - GI consulted; plan EGD + C-scope 01/31; prep tomorrow - no evidence for AIHA # COPD/asthma exacerbation - continue prednisone, nebulized bronchodilators - continue 60 mg prednisone, nebulized bronchodilators standing/prn # pneumonia - follow BCx, trend PCT, doxycycline d#3 # hypoxic respiratory failure - resolved, weaned off O2 # chronic HFrEF - euvolemic; continue metoprolol succinate # mood disorder - continue alprazolam, bupropion # VTE ppx - SCDs, avoid heparinoids given anemia + thrombocytopenia In my clinical judgment, the patient requires continued hospitalization for the following reasons: severe anemia requiring inpt GI evaluation, oxygen dependence Quality Stroke Does the patient have a stroke diagnosis?: No VTE Prior VTE?: No VTE Risk Level:: Medical - moderate - high VTE Device Contraindication: N/A - Device Ordered VTE Drug Contraindication: Treatment Not Indicated
[2022-01-29] MEDS: Iron Sucrose Complex 100 MG in 0.9 % Sodium Chloride 50 ML 220 MG IV (13:00)
[2022-01-29 14:12] LABS: Haptoglobin 129 mg/dL (43-212)
[2022-01-29] MEDS: oxyCODONE HCl Immed Release 5 MG TABLET PO ×2 (14:49→23:43)
[2022-01-30] VITALS (9 sets, daily range): BP systolic 110–158; BP diastolic 55–81; PULSE 73–97; RESP 17–20; TEMP 36.4–37.1; O2SAT 94–98
[2022-01-30] MEDS: Pantoprazole Sodium 40 MG/10 ML VIAL IVPUSH ×2 (05:39→15:25)
[2022-01-30] MEDS: oxyCODONE HCl Immed Release 5 MG TABLET PO ×3 (05:51→23:49)
[2022-01-30 07:08] LABS: Hematocrit 26.4 % (37.0-47.0); Hemoglobin 8.2 g/dl (12.0-16.0); Mean Corpuscular HGB Conc 31.1 g/dl (31.0-35.0); Mean Corpuscular Hemoglobin 28.4 pg (27.0-33.0); Mean Corpuscular Volume 91.3 fL (80.0-98.0); NRBC Pct Auto 0.6 /100WBC (0.0-0.2); Red Blood Count 2.89 X10*6/uL (4.20-5.50); Red Cell Distribution Width 16.3 % (11.0-16.0); White Blood Count 11.9 X10*3/uL (4.8-10.8)
[2022-01-30 07:10] LABS: Platelet Count 74 X10*3/uL (160-400)
[2022-01-30] MEDS: Albuterol/Iprat 2.5/0.5MG 3 ML AMPUL.NEB INHALE ×3 (07:35→20:17)
[2022-01-30] MEDS: Metoprolol Succinate ER 12.5 MG HALFTAB.ER.24H PO (09:00)
[2022-01-30] MEDS: 0.9 % Sodium Chloride Flush 3 ML SYRINGE IVFLUSH ×3 (09:00→19:59)
[2022-01-30] MEDS: Cholecalciferol (Vitamin D3) 25 MCG TABLET PO (09:00)
[2022-01-30] MEDS: Diclofenac Sodium Delayed Rel 75 MG TABLET.DR PO ×2 (09:00→19:58)
[2022-01-30] MEDS: ALPRAZolam 0.5 MG TABLET PO ×3 (09:00→23:49)
[2022-01-30] MEDS: predniSONE 20 MG TABLET 40 MG PO (09:01)
[2022-01-30] MEDS: Cyanocobalamin (Vitamin B-12) 1,000 MCG TABLET 1000 MCG PO (09:01)
[2022-01-30] MEDS: Iron Sucrose Complex 100 MG in 0.9 % Sodium Chloride 50 ML 220 MG IV (09:01)
[2022-01-30] MEDS: buPROPion HCl XL 300 MG TAB.ER.24H PO (09:01)
[2022-01-30] MEDS: Aspirin Enteric Coated 81 MG TABLET.DR PO (09:01)
[2022-01-30] MEDS: Fluticasone Propionate Nasal 16 GM SPRAY 1 SPRAY NOSTRIL-B (09:06)
--- NOTE | 2022-01-30 11:18 | P.PNIM_ITS ---
Subjective Subjective Date of Service: 01/30/22 Interval History: Tolerated transfusion, Hb now above 8 Wheezing improved Waiting for EGD/C-scope tomorrow Review of Systems Review of Systems: Yes all other systems are reviewed and are negative Physical Exam Vital Signs: Vital Signs: Last Vital Signs Temp 97.5 F 01/30/22 08:00 Pulse 97 01/30/22 08:00 Resp 17 01/30/22 08:00 BP 128/60 01/30/22 08:00 Pulse Ox 97 01/30/22 08:00 Oxygen Flow Rate 3 01/27/22 10:52 BMI result Body Mass Index 30.9 Gen: NAD HEENT: sclera anicteric, pale mucus membranes Neck: supple Lungs: normal effort, good air entry Heart: regular rate and rhythm, no murmurs Abd: soft, non-tender, non-distended Ext: no edema Skin: warm/well-perfused Neuro: alert and oriented x3, no focal findings Psych: appropriate affect Objective Data Active Medications Acetaminophen (Acetaminophen 325 Mg Tablet) 650 mg PO Q6H PRN PRN Reason: Pain, Mild (Pain Scale 1-3) Albuterol Sulfate (Albuterol Sulfate (0.083%) 2.5 Mg/3 Ml Vial.Neb) 2.5 mg INHALE Q2H PRN PRN Reason: Shortness of Breath/Wheezing Albuterol/Ipratropium (Albuterol/Iprat 2.5/0.5mg 3 Ml Ampul.Neb) 3 ml INHALE RQ4H WHILE AWAKE [facility] Last Admin: 01/30/22 11:17 Dose: Not Given Documented by: PIOTR Non-Admin Reason: Patient Asleep Alprazolam (Alprazolam 0.5 Mg Tablet) 0.5 mg PO TID PRN PRN Reason: Anxiety Last Admin: 01/30/22 09:00 Dose: 0.5 mg Documented by: JANETTE Aspirin (Aspirin Enteric Coated 81 Mg Tablet.) 81 mg PO DAILY [facility] Last Admin: 01/30/22 09:01 Dose: 81 mg Documented by: JANETTE Bupropion HCl (Bupropion Hcl Xl 300 Mg Tab.Er.24h) 300 mg PO DAILY [facility] Last Admin: 01/30/22 09:01 Dose: 300 mg Documented by: JANETTE Cyanocobalamin (Cyanocobalamin (Vitamin B-12) 1,000 Mcg Tablet) 1,000 mcg PO DAILY [facility] Last Admin: 01/30/22 09:01 Dose: 1,000 mcg Documented by: JANETTE Diclofenac Sodium (Diclofenac Sodium Delayed Rel 75 Mg Tablet.Dr) 75 mg PO BID [facility] Last Admin: 01/30/22 09:00 Dose: 75 mg Documented by: JANETTE Famotidine (Famotidine 20 Mg Tablet) 20 mg PO DAILY PRN PRN Reason: Acid Reflux Last Admin: 01/28/22 13:48 Dose: 20 mg Documented by: ALFREDO Fluticasone Propionate (Fluticasone Propionate Nasal 16 Gm [place]) 1 spray NOSTRIL-B DAILY [facility] Last Admin: 01/30/22 09:06 Dose: 1 spray Documented by: JANETTE Doxycycline Hyclate 100 mg/ (Sodium Chloride) 250 mls @ 166.67 mls/hr IV Q12H [facility] Last Infusion: 01/30/22 01:21 Dose: 0 mls/hr Documented by: MAT Iron Sucrose 100 mg/ Sodium (Chloride) 55 mls @ 220 mls/hr IV DAILY [facility] Stop: 01/31/22 09:14 Last Infusion: 01/30/22 10:25 Dose: 0 mls/hr Documented by: JANETTE Metoprolol Succinate (Metoprolol Succinate Er 12.5 Mg Halftab.Er.24h) 12.5 mg PO DAILY [facility]; Protocol Last Admin: 01/30/22 09:00 Dose: 12.5 mg Documented by: JANETTE Ondansetron HCl (Ondansetron Hcl 4 Mg/2 Ml Vial) 4 mg IVPUSH Q8H PRN PRN Reason: Nausea and Vomiting Last Admin: 01/28/22 21:29 Dose: 4 mg Documented by: DAE Oxycodone HCl (Oxycodone Hcl Immed Release 5 Mg Tablet) 5 mg PO Q6H PRN PRN Reason: Breakthrough Pain Last Admin: 01/30/22 05:51 Dose: 5 mg Documented by: MAT Pantoprazole Sodium (Pantoprazole Sodium 40 Mg/10 Ml Vial) 40 mg IVPUSH B [id number] [facility] Last Admin: 01/30/22 05:39 Dose: 40 mg Documented by: MAT Pharmacy Consult (Consult Rx Perform Med Rec) 1 each MISCELLANE ONCE PRN PRN Reason: Consult order Prednisone (Prednisone 20 Mg Tablet) 40 mg PO DAILY [facility] Last Admin: 01/30/22 09:01 Dose: 40 mg Documented by: JANETTE Sodium Chloride (0.9 % Sodium Chloride Flush 3 Ml Syringe) 3 ml IVFLUSH QSHIFT [facility] Last Admin: 01/30/22 09:00 Dose: 3 ml Documented by: JANETTE Vitamin D (Cholecalciferol (Vitamin D3) 25 Mcg Tablet) 25 mcg PO DAILY [facility] Last Admin: 01/30/22 09:00 Dose: 25 mcg Documented by: JANETTE Labs CBC & Chem 7: 01/30/22 05:53 01/27/22 20:46 Labs: Laboratory Results - last 24 hr 01/27/22 01/28/22 01/30/22 22:50 08:34 05:53 MCV 91.3 MCH 28.4 MCHC 31.1 RDW 16.3 H Plt Count 74 L MPV Not Reportable Absolute Nucleated RBC 0.070 H Nucleated RBC % (auto) 0.6 H Haptoglobin 129 Blood Type O Positive Antibody Screen NEGATIVE ABRAN, Polyspecific NEGATIVE Positive ABRAN Work-up TNP Crossmatch See Detail Microbiology Microbiology Results: Microbiology 01/27/22 22:50 Blood Culture - Preliminary Blood - Arterial No growth after 48 hours. 01/27/22 16:31 Blood Culture - Preliminary Blood - Arterial No growth after 48 hours. 01/27/22 16:31 Blood Culture - Preliminary Blood - Arterial No growth after 48 hours. 01/27/22 16:05 Blood Culture - Preliminary Blood - Arterial No growth after 48 hours. Assessment and Plan (1) Anemia: Status: Acute (2) Thrombocytopenia: Status: Acute Plan hospital d#4 76yo F with COPD/asthma, chronic HFrEF, and ITP presenting with 3-4 days of progressive cough productive of sputum, dyspnea, and wheezing.? Arrived hypoxic and question of R infrahilar infiltrate. Found to be profoundly anemic. # severe iron deficiency anemia - transfused 3u pRBCs 01/27, 1u pRBCs 01/28, 1u pRBCs 5/14 - GI consulted; plan EGD + C-scope tomorrow - no evidence for AIHA # COPD/asthma exacerbation - continue prednisone, nebulized bronchodilators - continue 60 mg prednisone, nebulized bronchodilators standing/prn # pneumonia - BCx negative, PCT low, doxycycline d#4 # hypoxic respiratory failure - resolved, weaned off O2 # chronic HFrEF - euvolemic; continue metoprolol succinate # mood disorder - continue alprazolam, bupropion # VTE ppx - SCDs, avoid heparinoids given anemia + thrombocytopenia In my clinical judgment, the patient requires continued hospitalization for the following reasons: severe anemia requiring inpt GI evaluation + oxygen dependence Quality Stroke Does the patient have a stroke diagnosis?: No VTE Prior VTE?: No VTE Risk Level:: Medical - moderate - high VTE Device Contraindication: N/A - Device Ordered VTE Drug Contraindication: Treatment Not Indicated
[2022-01-30] MEDS: Doxycycline Hyclate 100 MG in 0.9 % Sodium Chloride 250 ML 166.67 MG IV ×2 (11:33→23:07)
[2022-01-30] MEDS: Acetaminophen 325 MG TABLET 650 MG PO (11:38)
[2022-01-30] MEDS: PEG 3350/Na Sulf,Bicarb,Cl/KCL 4,000 ML SOLN.RECON 4000 ML PO (18:11)
[2022-01-30] MEDS: ondansetron HCL 4 MG/2 ML VIAL IVPUSH (19:59)
[2022-01-30] MEDS: Magnesium Citrate 300 ML SOLUTION PO (20:40)
[2022-01-31] VITALS (13 sets, daily range): BP systolic 96–139; BP diastolic 49–76; PULSE 75–92; RESP 16–22; TEMP 36.3–37.4; O2SAT 86–97
--- NOTE | 2022-01-31 04:43 | PC.NURSE ---
Pt seen at shift change, alert and oriented, pt just started on her golytely and pt was c/o nausea, Dr. Cifuentes was paged if to give also the ordered MAg Citrate, Dr. Cifuentes ordered to give both med. Later , noted that pt only tolerated quarter of the golytely and few sips of mag citrate, pt refused to go on, NPO post MN for EGD and colonoscoy in the morning, pt was instructed, pt claimed she had BM to the BR 3x.
[2022-01-31 05:51] LABS: PLT ABN DIST 1
[2022-01-31 05:52] LABS: Hematocrit 26.3 % (37.0-47.0); Mean Corpuscular HGB Conc 30.4 g/dl (31.0-35.0); Mean Corpuscular Hemoglobin 28.1 pg (27.0-33.0); Mean Corpuscular Volume 92.3 fL (80.0-98.0); NRBC Pct Auto 0.3 /100WBC (0.0-0.2); Red Blood Count 2.85 X10*6/uL (4.20-5.50); Red Cell Distribution Width 16.3 % (11.0-16.0)
[2022-01-31 05:58] LABS: Platelet Count 64 X10*3/uL (160-400)
[2022-01-31] MEDS: Pantoprazole Sodium 40 MG/10 ML VIAL IVPUSH ×2 (06:00→17:30)
[2022-01-31 06:14] LABS: Anion Gap 9 (12-20); Blood Urea Nitrogen 20 mg/dL (9-16); Calcium 8.4 mg/dL (8.4-10.2); Carbon Dioxide 28 mmol/L (22-29); Chloride 111 mmol/L (96-108); Estimated Glomerular Filt Rate > 60; Glucose Random 83 mg/dL (60-115); Potassium 3.8 mmol/L (3.3-5.1); Sodium 144 mmol/L (135-145)
[2022-01-31 06:28] LABS: Procalcitonin 0.07 ng/mL
--- NOTE | 2022-01-31 07:00 | CA_ITS ---
Transthoracic Echocardiogram Patient (Last, First, Middle): Susan Chan, Gender: Female Date of : 1945 Age: 76 Procedure Date: 01/31/2022 Procedure Type: Transthoracic Echocardiogram Location: S3E Height: 160.02 cm Weight: 79.38 kg BSA: 1.83 m2 Heart Rate: bpm BP: 138 / 64 mmHg Cinetechnician: YR/TO Referring MD: Hung Sullivan MD Symptoms: preop, hx hfref Study Quality: Fair ECG Rhythm: Sinus Conclusions: - The left ventricular systolic function is mildly decreased. The visually estimated ejection fraction is between 45-50%. - The basal inferior, mid inferior, mid inferoseptal, and basal inferolateral segments are akinetic. - Mildly increased right ventricular cavity size. - There is moderate aortic valve stenosis. - There is mild mitral valve regurgitation. - Mild pulmonary hypertension is present. - There is mild dilatation of the ascending aorta measuring 4.10 cm. Findings Left Ventricle Normal left ventricular cavity size. There is mildly increased left ventricular wall thickness. The left ventricular systolic function is mildly decreased. The visually estimated ejection fraction is between 45-50%. E/E prime ratio is >15, consistent with elevated filling pressures. Evidence suggests grade I (mild) diastolic dysfunction. Wall Motion Rest Echo Findings The basal inferior, mid inferior, mid inferoseptal, and basal inferolateral segments are akinetic. Right Ventricle Mildly increased right ventricular cavity size. There is normal right ventricular systolic function. Atria Both atria are normal in size. Aortic Valve There is a normal trileaflet aortic valve. There is mild calcification of the aortic valve. There is moderate aortic valve stenosis. The peak aortic velocity is 3.24 m/s with a calculated peak gradient of 42 mmHg. The mean gradient is 19 mmHg. The aortic valve area is 1.19 cm2. There is moderate aortic valve regurgitation. Dimensionless index 0.39. Stroke volume index 38cc. Mitral Valve There is mild mitral annular calcification. There is mild mitral valve regurgitation. There is no mitral valve stenosis. Pulmonic Valve The pulmonic valve is likely normal. Tricuspid Valve There is mild tricuspid valve regurgitation. The right ventricular systolic pressure is 40 mmHg. Mild pulmonary hypertension is present. Great Vessels There is mild dilatation of the ascending aorta measuring 4.10 cm. Venous The inferior vena cava is mildly dilated and collapses less than 50% with inspiration. Pericardium/Pleural There is a trivial pericardial effusion. Prior Study Comparison Changes noted compared to prior study dated: 02/08/2021. LVEF slightly higher than before. Measurements 2D Linear Measurements IVSd: 1.06 0.6-0.9/0.6-1.0 cm LVIDd: 5.19 3.9-5.3/4.2-5.9 cm LVIDd Index: 2.84 2.4-3.2/2.2-3.1 cm/m2 LVIDs: 3.75 2.0-3.6 cm LVPWd: 1.12 0.7-1.1 cm LA Diam: 3.60 2.7-3.8/3.0-4.0 cm LAIDs Index: 1.97 1.5-2.3 cm/m2 LV Mass: 270.94 67-162/88-224 g LV Mass Index: 148.05 43-95/49-115 g/m2 LVOT Diam: 2.00 3.0+(-)1.3 cm 2D Systolic Function EF 4C: 56.80 >55% EF 2C: 49.10 >55% EF BiP: 53.00 >55% Mitral Valve MV Pk E: 1.21 MV PK A: 1.44 MV Decel Time: 165.00 E/A: 0.80 E'Lateral: 6.20 E'Medial: 8.38 E/E' Med: 14.40 E/E' Lat: 19.50 PHT: 48.00 MVA PHT: 4.58 Decel Spencer: 7.31 Aortic Valve AoV Pk Juan: 3.24 AoV Mn Juan: 1.95 AoV VTI: 0.60 AoV Pk Grad: 42.00 Aov Mn Grad: 19.00 LUCIANA Cont.VTI: 1.19 AI Pk Juan: 5.17 AI Spencer: 4.15 LVOT LVOT Pk Juan: 1.25 LVOT Mn Juan: 0.85 LVOT VTI: 0.23 LVOT Pk Grad: 6.00 LVOT Mn Grad: 3.00 LVOT Diam: 2.00 LVOT Area: 3.14 Diastolic Function MV Pk E: 1.21 MV Pk A: 1.44 E/A: 0.80 E'Medial: 8.38 E/E' Med: 14.40 E' Laterial: 6.20 E/E' Lat: 19.50 Right Ventricle TAPSE (mm): 25.80 TVS' Juan: 12.50 Tricuspid Valve TR Pk Juan: 2.52 TR Pk Grad: 25.00 RA Press: 15.00 RVSP: 40.00 Great Vessels Aorta Sinus of Valsalva: 3.79 2.0-3.5 cm Ao Asc: 4.10 2.1-3.4 cm Updated in Other Vendor System with Status of Final Manuel Perales MD electronically signed on 01/31/2022 11:39:46 AM with status of Final
[2022-01-31] MEDS: Albuterol/Iprat 2.5/0.5MG 3 ML AMPUL.NEB INHALE (07:27)
[2022-01-31] MEDS: Diclofenac Sodium Delayed Rel 75 MG TABLET.DR PO ×2 (09:22→21:22)
[2022-01-31] MEDS: predniSONE 20 MG TABLET 40 MG PO (09:22)
[2022-01-31] MEDS: Metoprolol Succinate ER 12.5 MG HALFTAB.ER.24H PO (09:22)
[2022-01-31] MEDS: ALPRAZolam 0.5 MG TABLET PO ×3 (09:23→23:33)
[2022-01-31] MEDS: buPROPion HCl XL 300 MG TAB.ER.24H PO (09:23)
[2022-01-31] MEDS: 0.9 % Sodium Chloride Flush 3 ML SYRINGE IVFLUSH ×3 (09:24→21:28)
[2022-01-31] MEDS: Fluticasone Propionate Nasal 16 GM SPRAY 1 SPRAY NOSTRIL-B (09:29)
[2022-01-31] MEDS: Iron Sucrose Complex 100 MG in 0.9 % Sodium Chloride 50 ML 220 MG IV (09:29)
--- NOTE | 2022-01-31 10:09 | PM.CNCAR ---
History of Present Illness History of Present Illness Date of Service: 01/31/22 Chief complaint: COPD/ asthma exacerbation Narrative: This is a cardiology consultation regarding preoperative risk stratification for EGD/colonoscopy. There is a history of COPD/chronic bronchitis, asthma/chronic heart failure with reduced ejection fraction. Also has chronic ITP. Current admission to the hospitalist because of shortness of breath, cough, and congestion. In this context, it seems that hemoglobin was noted to be very low at 3.5. Subsequently, GI has seen her and plans are for EGD/colonoscopy. Last year, she had an echocardiogram-January 2021. At that time, LVEF 30-35%. She also had wall motion abnormalities in the inferior wall. She also had [id number] aortic stenosis, urra-yd-[id number] aortic regurgitation mild mitral regurgitation. That study was done as an inpatient. Subsequently, patient states she saw as an outpatient. Had follow-up echocardiograms were patient but unknown findings. It does not appear that she had a stress test or cardiac catheterization for ischemia workup. 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 She does need assistance for walking but within her limits of what she can do, has not noticed any anginal-type complaints. Some shortness of breath with moderate to severe exertion. No previous history of coronary disease or myocardial infarction per patient. Review of Systems Review of Systems: Yes all other systems are reviewed and are negative Constitutional: Constitutional: Reports as per HPI Eyes: Eyes: Reports as per HPI ENT: Reports as per HPI Cardiovascular: Cardiovascular: Reports as per HPI, Denies acrocyanosis, Denies cool extremities, Denies chest pain, Denies leg edema, Denies lightheadedness, Denies palpitations and Reports dyspnea Respiratory: Respiratory: Reports as per HPI, Reports no additional respiratory complaints and Reports dyspnea Gastrointestinal: Gastrointestinal: Reports as per HPI and Reports no additional gastrointestinal complaints Genitourinary: Genitourinary: Reports as per HPI Musculoskeletal: Musculoskeletal: Reports no additional musculoskeletal complaints and Reports as per HPI Integumentary/Breasts: Skin/Breast: Reports system reviewed and no additional complaints, except as docu Neurologic: Reports system reviewed and no additional complaints, except as documented and Reports as per HPI Psychiatric: Psychiatric: Reports no additional psychiatric complaints and Reports as per HPI Endocrine: Endocrine: Reports no additional endocrine complaints, Reports as per HPI and Denies palpitations Hematologic/Lymphatic: Hematologic/Lymphatic: Reports no additional hematologic/lymphatic complaints and Reports as per HPI Allergic/Immunologic: Allergic/Immunologic: Reports no additional allergic/immunologic complaints and Reports as per HPI ON LICENSE OF [facility] Past Medical History Medical History (Updated 01/31/22 @ 10:20 by Manuel Perales MD) Anxiety Asthma COPD exacerbation GERD (gastroesophageal reflux disease) Heart failure with reduced ejection fraction Osteoarthritis Thrombocytopenia Family History Family History Sister Lung cancer Lupus Sister Lung cancer Maternal Aunt Lupus Surgical History Surgical History Hx of hysterectomy Hx of oophorectomy Hx of total knee replacement Social History Social History Household Members: None Household Members Other:: lives alone [facility]: [facility] Do you presently have visiting nurse or other home services: No Alcohol intake: current Alcohol intake frequency: holidays/special occasions only Patient Tobacco Use Status: Former Tobacco user service: No ( career [employer] [place]) Current occupational status: employed Meds Allergies Allergy/AdvReac Type Severity Reaction Status Date / Time amoxicillin Allergy Unknown Hives Verified 01/28/22 04:29 penicillin V Allergy Unknown Hives Verified 01/28/22 04:29 Penicillins [PENICILLINS] Allergy Unknown HIVES Verified 01/28/22 04:29 Sulfa (Sulfonamide Allergy Unknown HIVES Verified 01/28/22 04:29 Antibiotics) [SULFA (SULFONAMIDE ANTIBIOTICS)] Active Medications: Current Medications Acetaminophen (Acetaminophen 325 Mg Tablet) 650 mg PO Q6H PRN PRN Reason: Pain, Mild (Pain Scale 1-3) Last Admin: 01/30/22 11:38 Dose: 650 mg Documented by: Albuterol Sulfate (Albuterol Sulfate (0.083%) 2.5 Mg/3 Ml Vial.Neb) 2.5 mg INHALE Q2H PRN PRN Reason: Shortness of Breath/Wheezing Albuterol/Ipratropium (Albuterol/Iprat 2.5/0.5mg 3 Ml Ampul.Neb) 3 ml INHALE RQ4H WHILE AWAKE ROBERTO Last Admin: 01/31/22 07:27 Dose: 3 ml Documented by: Alprazolam (Alprazolam 0.5 Mg Tablet) 0.5 mg PO TID PRN PRN Reason: Anxiety Last Admin: 01/31/22 09:23 Dose: 0.5 mg Documented by: Aspirin (Aspirin Enteric Coated 81 Mg Tablet.) 81 mg PO DAILY [facility] Last Admin: 01/31/22 09:23 Dose: Not Given Documented by: Bisacodyl (Bisacodyl 5 Mg Tablet.) 10 mg PO ONCE ONE Stop: 01/31/22 13:01 Bupropion HCl (Bupropion Hcl Xl 300 Mg Tab.Er.24h) 300 mg PO DAILY [facility] Last Admin: 01/31/22 09:23 Dose: 300 mg Documented by: Cyanocobalamin (Cyanocobalamin (Vitamin B-12) 1,000 Mcg Tablet) 1,000 mcg PO DAILY [facility] Last Admin: 01/31/22 09:23 Dose: Not Given Documented by: Diclofenac Sodium (Diclofenac Sodium Delayed Rel 75 Mg Tablet.) 75 mg PO BID [facility] Last Admin: 01/31/22 09:22 Dose: 75 mg Documented by: Famotidine (Famotidine 20 Mg Tablet) 20 mg PO DAILY PRN PRN Reason: Acid Reflux Last Admin: 01/28/22 13:48 Dose: 20 mg Documented by: Fluticasone Propionate (Fluticasone Propionate Nasal 16 Gm [place]) 1 spray NOSTRIL-B DAILY [facility] Last Admin: 01/31/22 09:29 Dose: 1 spray Documented by: Doxycycline Hyclate 100 mg/ (Sodium Chloride) 250 mls @ 166.67 mls/hr IV Q12H [facility] Last Infusion: 01/31/22 00:49 Dose: Infused Documented by: Metoprolol Succinate (Metoprolol Succinate Er 12.5 Mg Halftab.Er.24h) 12.5 mg PO DAILY [facility]; Protocol Last Admin: 01/31/22 09:22 Dose: 12.5 mg Documented by: Morphine Sulfate (Morphine Sulfate 2 Mg/Ml Cartridge) 2 mg IVPUSH Q2H PRN; Protocol PRN Reason: severe pain Ondansetron HCl (Ondansetron Hcl 4 Mg/2 Ml Vial) 4 mg IVPUSH Q8H PRN PRN Reason: Nausea and Vomiting Last Admin: 01/30/22 19:59 Dose: 4 mg Documented by: Oxycodone HCl (Oxycodone Hcl Immed Release 5 Mg Tablet) 5 mg PO Q6H PRN PRN Reason: Breakthrough Pain Last Admin: 01/30/22 23:49 Dose: 5 mg Documented by: Pantoprazole Sodium (Pantoprazole Sodium 40 Mg/10 Ml Vial) 40 mg IVPUSH BID@0630,4160 [facility] Last Admin: 01/31/22 06:00 Dose: 40 mg Documented by: Pharmacy Consult (Consult Rx Perform Med Rec) 1 each MISCELLANE ONCE PRN PRN Reason: Consult order Prednisone (Prednisone 20 Mg Tablet) 40 mg PO DAILY [facility] Last Admin: 01/31/22 09:22 Dose: 40 mg Documented by: Sodium Chloride (0.9 % Sodium Chloride Flush 3 Ml Syringe) 3 ml IVFLUSH QSHIFT [facility] Last Admin: 01/31/22 09:24 Dose: 3 ml Documented by: Vitamin D (Cholecalciferol (Vitamin D3) 25 Mcg Tablet) 25 mcg PO DAILY [facility] Last Admin: 01/31/22 09:23 Dose: Not Given Documented by: Home Medications Medication Instructions Recorded Confirmed Last Taken Type albuterol sulfate 90 mcg/actuation 90 inh INHALATION Q4H PRN 12/07/20 01/27/22 Unknown History aerosol inhaler (ProAir HFA) alprazolam 0.5 mg tablet 1 tab PO TID PRN 12/07/20 01/27/22 Unknown History aspirin 81 mg tablet,delayed 81 mg PO DAILY 12/07/20 01/27/22 Unknown History release bupropion HCl 150 mg tablet,12 hr 1 tab PO BID 12/07/20 01/27/22 Unknown History sustained-release diclofenac sodium 75 mg 1 tab PO BID 12/07/20 01/27/22 Unknown History tablet,delayed release hydrocodone 7.5 mg-acetaminophen 1 tab PO TID PRN 12/07/20 01/27/22 Unknown History 325 mg tablet biotin 500 mcg capsule 1 mg PO DAILY 02/07/21 01/27/22 Unknown History cholecalciferol (vitamin D3) 25 1,000 unit PO DAILY 02/07/21 01/27/22 Unknown History mcg (1,000 unit) capsule (Vitamin D3) albuterol sulfate 2.5 mg INHALATION Q4H PRN 01/27/22 01/27/22 Unknown History cimetidine 400 mg tablet 1 tab PO DAILY PRN 01/27/22 01/27/22 Unknown History cyanocobalamin (vitamin B-12) 1,000 mcg PO DAILY 01/27/22 01/27/22 Unknown History 1,000 mcg tablet fluticasone propionate 50 1 spray INTRANASAL DAILY 01/27/22 01/27/22 Unknown History mcg/actuation nasal spray,suspension vitamin A 2,400 mcg capsule 2,400 mcg PO DAILY 01/27/22 01/27/22 Unknown History Physical Exam Vital Signs: Vital Signs: Last Vital Signs Temp 98.2 F 01/31/22 07:12 Pulse 78 01/31/22 07:29 Resp 18 01/31/22 07:29 BP 138/64 01/31/22 07:12 Pulse Ox 94 01/31/22 07:12 Oxygen Flow Rate 3 01/27/22 10:52 BMI result Body Mass Index 30.9 Const: General: comfortable and no acute distress Orientation/consciousness: patient oriented x3 HEENT: Other: Unremarkable Head: Yes normal to inspection Neck: Neck: Yes normal visual inspection Chest: Chest palpation & inspection: normal inspection of the chest Resp: Auscultation: crackles and rhonchi Cardio: Palpation: normal PMI Heart sounds: S1 normal heart sound present, S2 normal heart sound present, no gallops, Murmur heart sound present systolic III/ and at the right sternal border and no rubs GI: Palpation (GI): Soft to palpation Back/Spine/Pelvis: Other: unremarkable Skin: General skin exam: no rashes or lesions noted Neuro: General: patient oriented x3 Extrem: General: Yes normal to inspection Psych: Mental Status: mental status grossly normal Objective Labs and Meds Result diagrams: 01/31/22 05:21 01/31/22 05:21 Lab results: Laboratory Results - last 24 hr 01/31/22 01/31/22 01/31/22 05:21 05:21 05:21 WBC 10.0 RBC 2.85 L Hgb 8.0 L Hct 26.3 L MCV 92.3 MCH 28.1 MCHC 30.4 L RDW 16.3 H Plt Count 64 L MPV TNP Absolute Nucleated RBC 0.030 H Nucleated RBC % (auto) 0.3 H Sodium 144 Potassium 3.8 Chloride 111 H Carbon Dioxide 28 Anion Gap 9 L BUN 20 H Creatinine 0.81 Estim Creat Clear Calc 58.0 Estimated GFR > 60 Random Glucose 83 Calcium 8.4 Procalcitonin 0.07 ECG Interpretation: EKG with sinus tachycardia, 123/Min; PVCs; cannot exclude old inferior infarct. Assessment and Plan (1) Preoperative cardiovascular examination: Status: Acute (2) Cardiomyopathy: Status: Acute (3) Non-rheumatic aortic stenosis: Status: Acute (4) Non-rheumatic aortic regurgitation: Status: Acute (5) Non-rheumatic mitral regurgitation: Status: Acute (6) Atherosclerotic cardiovascular disease: Status: Acute Plan Labs reviewed. Hemoglobin is 8 but 3.5 upon arrival. Platelet count is also low at 64. Creatinine is 0.81. Potassium is 3.8. High sensitivity troponin 24.9 and 27.2. Echocardiogram performed January 2021 with LVEF 30-35%; inferior septal/basal inferior and mid inferior akinesis. [id number] aortic stenosis and aortic regurgitation and mild mitral regurgitation. Her EKG is also suggestive of inferior infarct. CT chest performed for noncardiac reasons last year had shown coronary artery calcification and mild dilatation of ascending aorta at 4.1 cm. Overall, high pretest probability of underlying CAD. However per patient, has not had a stress test or catheterization. Hence unknown coronary status. Ideally, would like to repeat her echocardiogram before planned EGD/colonoscopy. In any case, cardiac risk could be considered high. Procedures Date of Service Date of Service: 01/31/22
--- NOTE | 2022-01-31 10:33 | MHC.CDI.CONC ---
CDI Concurrent Query Documentation Clarification: PHYSICIAN'S DOCUMENTATION REQUEST Date of Query: 01/31/22 1034 Patient Name: Susan Chan Admit Date: 01/27/22 Dear Doctor, A review of the medical record indicates additional documentation may be needed. Please review below and update the documentation accordingly. Clinical Indicators: Risk Factors/Clinical Indicators/Treatments GI consult 01/28 - Iron deficiency anemia is most likely related to blood loss from upper vs. LGI tract. Event note 01/27 - Symptomatic anemia, history of iron deficiency anemia, Transfuse. HGB 3.5 HCT 12.0 - worsening fatigue, poor appetite, WALDRON, dyspnea. Transfused 5 units since admit. Based on the above, could you clarify in the Progress Notes which of the following is the most likely type of anemia you are evaluating, treating, and/or monitoring? Chronic iron deficiency anemia due to blood loss Chronic iron deficiency anemia secondary to acute/chronic blood loss Acute blood loss anemia Other ? please specify Unable to determine Use of terms such as suspected, likely, concern for, or probable (associated with a specific diagnosis that is being evaluated, monitored, or treated as if it exists) are acceptable and can be coded in the inpatient setting, when documented at the time of discharge. Thank you, Caro Salazar [facility], CDIS Extension: [phone] Please use your independent medical judgment in providing your response. THIS QUERY IS PART OF THE PERMANENT MEDICAL RECORD Provider Response: Other Other Diagnosis: chronic iron deficiency due to blood loss
--- NOTE | 2022-01-31 12:11 | HO.PM.IMPN ---
Subjective Subjective Date of Service: 01/31/22 Interval History: breathing improved anxious re: scope today no lightheadedness, chest pain, or palpitations Review of Systems Review of Systems: Yes all other systems are reviewed and are negative Physical Exam Vital Signs: Vital Signs: Last Vital Signs Temp 98.2 F 01/31/22 07:12 Pulse 78 01/31/22 07:29 Resp 18 01/31/22 07:29 BP 138/64 01/31/22 07:12 Pulse Ox 94 01/31/22 07:12 Oxygen Flow Rate 3 01/27/22 10:52 BMI result Body Mass Index 30.9 Gen: NAD HEENT: sclera anicteric,? pale mucus membranes Neck: supple Lungs: normal effort, good air entry Heart: regular rate and rhythm, no murmurs Abd: soft, non-tender, non-distended Ext: no edema Skin: warm/well-perfused Neuro: alert and oriented x3, no focal findings Psych: appropriate affect Objective Data Active Medications Acetaminophen (Acetaminophen 325 Mg Tablet) 650 mg PO Q6H PRN PRN Reason: Pain, Mild (Pain Scale 1-3) Last Admin: 01/30/22 11:38 Dose: 650 mg Documented by: JANETTE Albuterol Sulfate (Albuterol Sulfate (0.083%) 2.5 Mg/3 Ml Vial.Neb) 2.5 mg INHALE Q2H PRN PRN Reason: Shortness of Breath/Wheezing Albuterol/Ipratropium (Albuterol/Iprat 2.5/0.5mg 3 Ml Ampul.Neb) 3 ml INHALE RQ4H WHILE AWAKE [facility] Last Admin: 01/31/22 11:39 Dose: Not Given Documented by: PIOTR Non-Admin Reason: Patient Refused Alprazolam (Alprazolam 0.5 Mg Tablet) 0.5 mg PO TID PRN PRN Reason: Anxiety Last Admin: 01/31/22 09:23 Dose: 0.5 mg Documented by: KYMBERLY Aspirin (Aspirin Enteric Coated 81 Mg Tablet.) 81 mg PO DAILY [facility] Last Admin: 01/31/22 09:23 Dose: Not Given Documented by: KYMBERLY Non-Admin Reason: NPO Bisacodyl (Bisacodyl 5 Mg Tablet.) 10 mg PO ONCE ONE Stop: 01/31/22 13:01 Bupropion HCl (Bupropion Hcl Xl 300 Mg Tab.Er.24h) 300 mg PO DAILY [facility] Last Admin: 01/31/22 09:23 Dose: 300 mg Documented by: KYMBERLY Cyanocobalamin (Cyanocobalamin (Vitamin B-12) 1,000 Mcg Tablet) 1,000 mcg PO DAILY [facility] Last Admin: 01/31/22 09:23 Dose: Not Given Documented by: KYMBERLY Non-Admin Reason: NPO Diclofenac Sodium (Diclofenac Sodium Delayed Rel 75 Mg Tablet.Dr) 75 mg PO BID [facility] Last Admin: 01/31/22 09:22 Dose: 75 mg Documented by: KYMBERLY Famotidine (Famotidine 20 Mg Tablet) 20 mg PO DAILY PRN PRN Reason: Acid Reflux Last Admin: 01/28/22 13:48 Dose: 20 mg Documented by: ALFREDO Fluticasone Propionate (Fluticasone Propionate Nasal 16 Gm [place]) 1 spray NOSTRIL-B DAILY [facility] Last Admin: 01/31/22 09:29 Dose: 1 spray Documented by: KYMBERLY Doxycycline Hyclate 100 mg/ (Sodium Chloride) 250 mls @ 166.67 mls/hr IV Q12H [facility] Last Infusion: 01/31/22 00:49 Dose: 0 mls/hr Documented by: CANDELARIO Metoprolol Succinate (Metoprolol Succinate Er 12.5 Mg Halftab.Er.24h) 12.5 mg PO DAILY [facility]; Protocol Last Admin: 01/31/22 09:22 Dose: 12.5 mg Documented by: KYMBERLY Morphine Sulfate (Morphine Sulfate 2 Mg/Ml Cartridge) 2 mg IVPUSH Q2H PRN; Protocol PRN Reason: severe pain Ondansetron HCl (Ondansetron Hcl 4 Mg/2 Ml Vial) 4 mg IVPUSH Q8H PRN PRN Reason: Nausea and Vomiting Last Admin: 01/30/22 19:59 Dose: 4 mg Documented by: CANDELARIO Oxycodone HCl (Oxycodone Hcl Immed Release 5 Mg Tablet) 5 mg PO Q6H PRN PRN Reason: Breakthrough Pain Last Admin: 01/30/22 23:49 Dose: 5 mg Documented by: CANDELARIO Pantoprazole Sodium (Pantoprazole Sodium 40 Mg/10 Ml Vial) 40 mg IVPUSH BID@0630,1630 [facility] Last Admin: 01/31/22 06:00 Dose: 40 mg Documented by: CANDELARIO Pharmacy Consult (Consult Rx Perform Med Rec) 1 each MISCELLANE ONCE PRN PRN Reason: Consult order Prednisone (Prednisone 20 Mg Tablet) 40 mg PO DAILY [facility] Last Admin: 01/31/22 09:22 Dose: 40 mg Documented by: KYMBERLY Sodium Chloride (0.9 % Sodium Chloride Flush 3 Ml Syringe) 3 ml IVFLUSH QSHIFT [facility] Last Admin: 01/31/22 09:24 Dose: 3 ml Documented by: KYMBERLY Vitamin D (Cholecalciferol (Vitamin D3) 25 Mcg Tablet) 25 mcg PO DAILY [facility] Last Admin: 01/31/22 09:23 Dose: Not Given Documented by: KYMBERLY Non-Admin Reason: NPO Labs CBC & Chem 7: 01/31/22 05:21 01/31/22 05:21 Labs: Laboratory Results - last 24 hr 01/31/22 01/31/22 01/31/22 05:21 05:21 05:21 MCV 92.3 MCH 28.1 MCHC 30.4 L RDW 16.3 H Plt Count 64 L MPV TNP Absolute Nucleated RBC 0.030 H Nucleated RBC % (auto) 0.3 H Anion Gap 9 L Estim Creat Clear Calc 58.0 Estimated GFR > 60 Random Glucose 83 Calcium 8.4 Procalcitonin 0.07 Assessment and Plan (1) Anemia: Status: Acute (2) Thrombocytopenia: Status: Acute Plan hospital d#5 76yo F with COPD/asthma, chronic HFrEF, and ITP presenting with 3-4 days of progressive cough productive of sputum, dyspnea, and wheezing.? Arrived hypoxic and question of R infrahilar infiltrate. Found to be profoundly anemic. # chronic, severe iron deficiency anemia due to GI blood loss - transfused 3u pRBCs 01/27, 1u pRBCs 01/28, 1u pRBCs 01/29 - GI consulted; plan EGD + C-scope today - given 3 days of IV iron - no evidence for AIHA # chronic HFrEF # aortic stenosis - euvolemic; continue metoprolol succinate - TTE + Cardiology consult pre-procedure today # COPD/asthma exacerbation - continue prednisone, nebulized bronchodilators # pneumonia - BCx negative, PCT low, doxycycline d#01/20 # hypoxic respiratory failure - resolved, weaned off O2 # mood disorder - continue alprazolam, bupropion # VTE ppx - SCDs, avoid heparinoids given anemia + thrombocytopenia In my clinical judgment, the patient requires continued hospitalization for the following reasons: severe anemia requiring inpt GI evaluation Quality Stroke Does the patient have a stroke diagnosis?: No VTE Prior VTE?: No VTE Risk Level:: Medical - moderate - high VTE Device Contraindication: N/A - Device Ordered VTE Drug Contraindication: Treatment Not Indicated
[2022-01-31] MEDS: Doxycycline Hyclate 100 MG in 0.9 % Sodium Chloride 250 ML 166.67 MG IV (12:17)
[2022-01-31] MEDS: bisacodyL 5 MG TABLET.DR 10 MG PO (12:17)
--- NOTE | 2022-01-31 14:01 | MHC.CM.PN ---
nurse embedded case manager note electronic medical record reviewed along with case discussed with staff nurse and hospitalist ,per documentation , the patient requires continued hospitalization for the following reasons: severe anemia s/p 5 ux prbc transfusions , with cardiac condition that requires cardiac clearance before gi can scope her today . embedded case manager to continue to follow requiring vital sign and labs mionitored
--- NOTE | 2022-01-31 14:23 | P.CONAN_ITS ---
[facility] Active Problems Active Problems: All Active Problems (Updated 01/31/22 @ 10:20 by Manuel Perales MD) Atherosclerotic cardiovascular disease (Acute) Non-rheumatic mitral regurgitation (Acute) Non-rheumatic aortic regurgitation (Acute) Non-rheumatic aortic stenosis (Acute) Cardiomyopathy (Acute) Preoperative cardiovascular examination (Acute) GERD (gastroesophageal reflux disease) (Acute) COPD exacerbation (Acute) Asthma exacerbation (Acute) Emphysema lung (Acute) Acute on chronic systolic (congestive) heart failure (Acute) COPD (chronic obstructive pulmonary disease) (Acute) Thrombocytopenia (Acute) Thrombocytopenia (Acute) Anemia (Acute) Past Medical History Medical History (Updated 01/31/22 @ 10:20 by Manuel Perales MD) Anxiety Asthma COPD exacerbation GERD (gastroesophageal reflux disease) Heart failure with reduced ejection fraction Osteoarthritis Thrombocytopenia Family History Family History Sister Lung cancer Lupus Sister Lung cancer Maternal Aunt Lupus Family history of problems with anesthesia: No Surgical History Surgical History Hx of hysterectomy Hx of oophorectomy Hx of total knee replacement History of Problems with Anesthesia: No Social History Social History Household Members: None Household Members Other:: lives alone [facility]: [facility] Do you presently have visiting nurse or other home services: No Alcohol intake: current Alcohol intake frequency: holidays/special occasions only Patient Tobacco Use Status: Former Tobacco user Quit Date: 20 YRS OLD service: No ( career [employer]) Current occupational status: employed Meds Allergies Allergy/AdvReac Type Severity Reaction Status Date / Time amoxicillin Allergy Unknown Hives Verified 01/28/22 04:29 penicillin V Allergy Unknown Hives Verified 01/28/22 04:29 Penicillins [PENICILLINS] Allergy Unknown HIVES Verified 01/28/22 04:29 Sulfa (Sulfonamide Allergy Unknown HIVES Verified 01/28/22 04:29 Antibiotics) [SULFA (SULFONAMIDE ANTIBIOTICS)] Active Medications: Current Medications Acetaminophen (Acetaminophen 325 Mg Tablet) 650 mg PO Q6H PRN PRN Reason: Pain, Mild (Pain Scale 1-3) Last Admin: 01/30/22 11:38 Dose: 650 mg Documented by: Albuterol Sulfate (Albuterol Sulfate (0.083%) 2.5 Mg/3 Ml Vial.Neb) 2.5 mg INHALE Q2H PRN PRN Reason: Shortness of Breath/Wheezing Albuterol/Ipratropium (Albuterol/Iprat 2.5/0.5mg 3 Ml Ampul.Neb) 3 ml INHALE RQ4H WHILE AWAKE [facility] Last Admin: 01/31/22 11:39 Dose: Not Given Documented by: Alprazolam (Alprazolam 0.5 Mg Tablet) 0.5 mg PO TID PRN PRN Reason: Anxiety Last Admin: 01/31/22 12:21 Dose: 0.5 mg Documented by: Aspirin (Aspirin Enteric Coated 81 Mg Tablet.) 81 mg PO DAILY [facility] Last Admin: 01/31/22 09:23 Dose: Not Given Documented by: Bupropion HCl (Bupropion Hcl Xl 300 Mg Tab.Er.24h) 300 mg PO DAILY [facility] Last Admin: 01/31/22 09:23 Dose: 300 mg Documented by: Cyanocobalamin (Cyanocobalamin (Vitamin B-12) 1,000 Mcg Tablet) 1,000 mcg PO DAILY [facility] Last Admin: 01/31/22 09:23 Dose: Not Given Documented by: Diclofenac Sodium (Diclofenac Sodium Delayed Rel 75 Mg Tablet.) 75 mg PO BID [facility] Last Admin: 01/31/22 09:22 Dose: 75 mg Documented by: Famotidine (Famotidine 20 Mg Tablet) 20 mg PO DAILY PRN PRN Reason: Acid Reflux Last Admin: 01/28/22 13:48 Dose: 20 mg Documented by: Fluticasone Propionate (Fluticasone Propionate Nasal 16 Gm [place]) 1 spray NOSTRIL-B DAILY [facility] Last Admin: 01/31/22 09:29 Dose: 1 spray Documented by: Doxycycline Hyclate 100 mg/ (Sodium Chloride) 250 mls @ 166.67 mls/hr IV Q12H [facility] Stop: 02/03/22 00:29 Last Admin: 01/31/22 12:17 Dose: 166.67 mls/hr Documented by: Metoprolol Succinate (Metoprolol Succinate Er 12.5 Mg Halftab.Er.24h) 12.5 mg PO DAILY [facility]; Protocol Last Admin: 01/31/22 09:22 Dose: 12.5 mg Documented by: Morphine Sulfate (Morphine Sulfate 2 Mg/Ml Cartridge) 2 mg IVPUSH Q2H PRN; Protocol PRN Reason: severe pain Ondansetron HCl (Ondansetron Hcl 4 Mg/2 Ml Vial) 4 mg IVPUSH Q8H PRN PRN Reason: Nausea and Vomiting Last Admin: 01/30/22 19:59 Dose: 4 mg Documented by: Oxycodone HCl (Oxycodone Hcl Immed Release 5 Mg Tablet) 5 mg PO Q6H PRN PRN Reason: Breakthrough Pain Last Admin: 01/30/22 23:49 Dose: 5 mg Documented by: Pantoprazole Sodium (Pantoprazole Sodium 40 Mg/10 Ml Vial) 40 mg IVPUSH BID@0630,1630 [facility] Last Admin: 01/31/22 06:00 Dose: 40 mg Documented by: Pharmacy Consult (Consult Rx Perform Med Rec) 1 each MISCELLANE ONCE PRN PRN Reason: Consult order Prednisone (Prednisone 20 Mg Tablet) 40 mg PO DAILY [facility] Last Admin: 01/31/22 09:22 Dose: 40 mg Documented by: Sodium Chloride (0.9 % Sodium Chloride Flush 3 Ml Syringe) 3 ml IVFLUSH QSHIFT [facility] Last Admin: 01/31/22 09:24 Dose: 3 ml Documented by: Vitamin D (Cholecalciferol (Vitamin D3) 25 Mcg Tablet) 25 mcg PO DAILY [facility] Last Admin: 01/31/22 09:23 Dose: Not Given Documented by: Home Medications Medication Instructions Recorded Confirmed Last Taken Type albuterol sulfate 90 mcg/actuation 90 inh INHALATION Q4H PRN 12/07/20 01/27/22 Unknown History aerosol inhaler (ProAir HFA) alprazolam 0.5 mg tablet 1 tab PO TID PRN 12/07/20 01/27/22 Unknown History aspirin 81 mg tablet,delayed 81 mg PO DAILY 12/07/20 01/27/22 Unknown History release bupropion HCl 150 mg tablet,12 hr 1 tab PO BID 12/07/20 01/27/22 Unknown History sustained-release diclofenac sodium 75 mg 1 tab PO BID 12/07/20 01/27/22 Unknown History tablet,delayed release hydrocodone 7.5 mg-acetaminophen 1 tab PO TID PRN 12/07/20 01/27/22 Unknown History 325 mg tablet biotin 500 mcg capsule 1 mg PO DAILY 02/07/21 01/27/22 Unknown History cholecalciferol (vitamin D3) 25 1,000 unit PO DAILY 02/07/21 01/27/22 Unknown History mcg (1,000 unit) capsule (Vitamin D3) albuterol sulfate 2.5 mg INHALATION Q4H PRN 01/27/22 01/27/22 Unknown History cimetidine 400 mg tablet 1 tab PO DAILY PRN 01/27/22 01/27/22 Unknown History cyanocobalamin (vitamin B-12) 1,000 mcg PO DAILY 01/27/22 01/27/22 Unknown History 1,000 mcg tablet fluticasone propionate 50 1 spray INTRANASAL DAILY 01/27/22 01/27/22 Unknown History mcg/actuation nasal spray,suspension vitamin A 2,400 mcg capsule 2,400 mcg PO DAILY 01/27/22 01/27/22 Unknown History Exam Exam Date and Time: January 31, 2022 1423 Height,Weight and Vital Signs: Height 5 ft 3 in Weight 79.379 kg Last Vital Signs Temp 97.4 F 01/31/22 13:57 Pulse 89 01/31/22 13:57 Resp 18 01/31/22 13:57 BP 138/74 01/31/22 13:57 Pulse Ox 97 01/31/22 13:57 Oxygen Flow Rate 3 01/27/22 10:52 Pertinent Lab Results Pertinent Lab Results: Laboratory Tests 01/27/22 01/27/22 01/27/22 12:08 12:08 12:08 WBC RBC Hgb Hct MCV MCH MCHC RDW Plt Count MPV Immature Gran % (Auto) Neut % (Auto) Lymph % (Auto) [place] % (Auto) Eos % (Auto) Baso % (Auto) Lymph # (Auto) [place] # (Auto) Eos # (Auto) Baso # (Auto) Abs Immat Gran (auto) Absolute Neuts (auto) Absolute Nucleated RBC Nucleated RBC % (auto) Neutrophils % (Manual) Band Neutrophils % Lymphocytes % (Manual) Monocytes % (Manual) Abs Neuts (Manual) Lymphocytes # (Manual) Monocytes # (Manual) Nucleated RBCs Platelet Estimate Large Platelets Plt Morphology Comment RBC Morphology Polychromasia Hypochromasia Ovalocytes Smear Tech's Comments Smear Path Review Absolute Retic Percent Retic Immature Retic Fraction Retic Hgb Equivalent Haptoglobin D-Dimer High Sensitivty Sodium 142 Potassium 3.7 Chloride 109 H Carbon Dioxide 24 Anion Gap 13 BUN 32 H Creatinine 0.84 Estim Creat Clear Calc 55.9 Estimated GFR > 60 Random Glucose 127 H Lactic Acid Calcium 8.4 Iron TIBC % Saturation Unsat Iron Binding Ferritin Total Bilirubin 0.3 Direct Bilirubin 0.2 AST 21 D ALT 17 Alkaline Phosphatase 41 D Lactate Dehydrogenase Troponin I High Sens 24.9 H B-Natriuretic Peptide Total Protein 5.2 L Albumin 3.5 Lipase 33 Vitamin B12 Folate Procalcitonin 0.10 Urine Color Urine Appearance Urine pH Ur Specific [place] Urine Protein Urine Glucose (UA) Urine Ketones Urine Blood Urine Nitrite Ur Leukocyte Esterase Urine RBC Urine WBC Ur Squamous Epith Cells Urine Bacteria Influenza Type A (PCR) Influenza Type B (PCR) RSV RNA Qual (PCR) SARS-CoV-2 RNA (RT-PCR) Blood Type Antibody Screen ABRAN, Polyspecific Positive ABRAN Work-up Crossmatch 01/27/22 01/27/22 01/27/22 12:38 13:10 16:02 WBC RBC Hgb Hct MCV MCH MCHC RDW Plt Count MPV Immature Gran % (Auto) Neut % (Auto) Lymph % (Auto) [place] % (Auto) Eos % (Auto) Baso % (Auto) Lymph # (Auto) [place] # (Auto) Eos # (Auto) Baso # (Auto) Abs Immat Gran (auto) Absolute Neuts (auto) Absolute Nucleated RBC Nucleated RBC % (auto) Neutrophils % (Manual) Band Neutrophils % Lymphocytes % (Manual) Monocytes % (Manual) Abs Neuts (Manual) Lymphocytes # (Manual) Monocytes # (Manual) Nucleated RBCs Platelet Estimate Large Platelets Plt Morphology Comment RBC Morphology Polychromasia Hypochromasia Ovalocytes Smear Tech's Comments Smear Path Review Absolute Retic Percent Retic Immature Retic Fraction Retic Hgb Equivalent Haptoglobin D-Dimer High Sensitivty Sodium Potassium Chloride Carbon Dioxide Anion Gap BUN Creatinine Estim Creat Clear Calc Estimated GFR Random Glucose Lactic Acid Calcium Iron TIBC % Saturation Unsat Iron Binding Ferritin Total Bilirubin Direct Bilirubin AST ALT Alkaline Phosphatase Lactate Dehydrogenase Troponin I High Sens 27.2 H B-Natriuretic Peptide Total Protein Albumin Lipase Vitamin B12 Folate Procalcitonin Urine Color YELLOW Urine Appearance CLEAR Urine pH 5.5 Ur Specific [place] 1.015 Urine Protein NEG Urine Glucose (UA) NEG Urine Ketones 5 Urine Blood 2+ H Urine Nitrite NEG Ur Leukocyte Esterase NEG Urine RBC 0 Urine WBC 1-4 Ur Squamous Epith Cells 2+ Urine Bacteria TRACE Influenza Type A (PCR) NEGATIVE Influenza Type B (PCR) NEGATIVE RSV RNA Qual (PCR) NEGATIVE SARS-CoV-2 RNA (RT-PCR) NEGATIVE Blood Type Antibody Screen ABRAN, Polyspecific Positive ABRAN Work-up Crossmatch 01/27/22 01/27/22 01/27/22 16:02 16:31 20:17 WBC 10.7 RBC 1.37 L Hgb 3.5 L* Hct 12.0 L* MCV 87.6 MCH 25.5 L MCHC 29.2 L RDW 16.8 H Plt Count Not Reportable MPV Not Reportable Immature Gran % (Auto) 0.9 H Neut % (Auto) 93.6 H Lymph % (Auto) 3.5 L [place] % (Auto) 1.9 L Eos % (Auto) 0.0 Baso % (Auto) 0.1 Lymph # (Auto) 0.4 L [place] # (Auto) 0.2 Eos # (Auto) 0.0 Baso # (Auto) 0.0 Abs Immat Gran (auto) 0.10 H Absolute Neuts (auto) 10.0 H Absolute Nucleated RBC 0.030 H Nucleated RBC % (auto) 0.3 H Neutrophils % (Manual) Band Neutrophils % Lymphocytes % (Manual) Monocytes % (Manual) Abs Neuts (Manual) Lymphocytes # (Manual) Monocytes # (Manual) Nucleated RBCs Platelet Estimate Large Platelets Plt Morphology Comment RBC Morphology Polychromasia Hypochromasia Ovalocytes Smear Tech's Comments VERIFIED Smear Path Review Absolute Retic Percent Retic Immature Retic Fraction Retic Hgb Equivalent Haptoglobin D-Dimer High Sensitivty < 150 Sodium Potassium Chloride Carbon Dioxide Anion Gap BUN Creatinine Estim Creat Clear Calc Estimated GFR Random Glucose Lactic Acid 1.7 Calcium Iron TIBC % Saturation Unsat Iron Binding Ferritin Total Bilirubin Direct Bilirubin AST ALT Alkaline Phosphatase Lactate Dehydrogenase Troponin I High Sens B-Natriuretic Peptide Total Protein Albumin Lipase Vitamin B12 Folate Procalcitonin Urine Color Urine Appearance Urine pH Ur Specific [place] Urine Protein Urine Glucose (UA) Urine Ketones Urine Blood Urine Nitrite Ur Leukocyte Esterase Urine RBC Urine WBC Ur Squamous Epith Cells Urine Bacteria Influenza Type A (PCR) Influenza Type B (PCR) RSV RNA Qual (PCR) SARS-CoV-2 RNA (RT-PCR) Blood Type Antibody Screen ABRAN, Polyspecific Positive ABRAN Work-up Crossmatch 05/09/0801/27/22 01/27/22 20:45 20:46 22:50 WBC 9.8 RBC 1.36 L Hgb 3.5 L* Hct 11.9 L* MCV 87.5 MCH 25.7 L MCHC 29.4 L RDW 16.9 H Plt Count 91 L MPV Not Reportable Immature Gran % (Auto) 0.8 H Neut % (Auto) 93.3 H Lymph % (Auto) 3.6 L [place] % (Auto) 2.2 Eos % (Auto) 0.0 Baso % (Auto) 0.1 Lymph # (Auto) 0.4 L [place] # (Auto) 0.2 Eos # (Auto) 0.0 Baso # (Auto) 0.0 Abs Immat Gran (auto) 0.08 H Absolute Neuts (auto) 9.2 H Absolute Nucleated RBC 0.020 H Nucleated RBC % (auto) 0.2 Neutrophils % (Manual) Band Neutrophils % Lymphocytes % (Manual) Monocytes % (Manual) Abs Neuts (Manual) Lymphocytes # (Manual) Monocytes # (Manual) Nucleated RBCs Platelet Estimate Large Platelets Plt Morphology Comment RBC Morphology Polychromasia Hypochromasia Ovalocytes Smear Tech's Comments Smear Path Review Absolute Retic Percent Retic Immature Retic Fraction Retic Hgb Equivalent Haptoglobin D-Dimer High Sensitivty Sodium 141 Potassium 4.0 Chloride 109 H Carbon Dioxide 21 L Anion Gap 15 BUN 28 H Creatinine 1.15 Estim Creat Clear Calc 40.8 Estimated GFR 46 Random Glucose 181 H Lactic Acid Calcium 8.4 Iron TIBC % Saturation Unsat Iron Binding Ferritin Total Bilirubin 0.3 Direct Bilirubin 0.2 AST 16 ALT 16 Alkaline Phosphatase 42 Lactate Dehydrogenase Troponin I High Sens B-Natriuretic Peptide Total Protein 5.4 L Albumin 3.6 Lipase Vitamin B12 Folate Procalcitonin Urine Color Urine Appearance Urine pH Ur Specific [place] Urine Protein Urine Glucose (UA) Urine Ketones Urine Blood Urine Nitrite Ur Leukocyte Esterase Urine RBC Urine WBC Ur Squamous Epith Cells Urine Bacteria Influenza Type A (PCR) Influenza Type B (PCR) RSV RNA Qual (PCR) SARS-CoV-2 RNA (RT-PCR) Blood Type O Positive Antibody Screen NEGATIVE ABRAN, Polyspecific NEGATIVE Positive ABRAN Work-up TNP Crossmatch See Detail 01/27/22 01/27/22 01/28/22 22:50 22:50 05:57 WBC RBC Hgb Hct MCV MCH MCHC RDW Plt Count MPV Immature Gran % (Auto) Neut % (Auto) Lymph % (Auto) [place] % (Auto) Eos % (Auto) Baso % (Auto) Lymph # (Auto) [place] # (Auto) Eos # (Auto) Baso # (Auto) Abs Immat Gran (auto) Absolute Neuts (auto) Absolute Nucleated RBC Nucleated RBC % (auto) Neutrophils % (Manual) Band Neutrophils % Lymphocytes % (Manual) Monocytes % (Manual) Abs Neuts (Manual) Lymphocytes # (Manual) Monocytes # (Manual) Nucleated RBCs Platelet Estimate Large Platelets Plt Morphology Comment RBC Morphology Polychromasia Hypochromasia Ovalocytes Smear Tech's Comments Smear Path Review Absolute Retic Percent Retic Immature Retic Fraction Retic Hgb Equivalent Haptoglobin D-Dimer High Sensitivty Sodium Potassium Chloride Carbon Dioxide Anion Gap BUN Creatinine Estim Creat Clear Calc Estimated GFR Random Glucose Lactic Acid Calcium Iron 10 L TIBC 364 % Saturation 3 L Unsat Iron Binding 354 Ferritin Total Bilirubin Direct Bilirubin AST ALT Alkaline Phosphatase Lactate Dehydrogenase Troponin I High Sens B-Natriuretic Peptide 241 H Total Protein Albumin Lipase Vitamin B12 > 2000 H Folate 15.2 Procalcitonin Urine Color Urine Appearance Urine pH Ur Specific [place] Urine Protein Urine Glucose (UA) Urine Ketones Urine Blood Urine Nitrite Ur Leukocyte Esterase Urine RBC Urine WBC Ur Squamous Epith Cells Urine Bacteria Influenza Type A (PCR) Influenza Type B (PCR) RSV RNA Qual (PCR) SARS-CoV-2 RNA (RT-PCR) Blood Type Antibody Screen ABRAN, Polyspecific Positive ABRAN Work-up Crossmatch 01/28/22 01/28/22 01/28/22 08:34 08:34 08:34 WBC 9.3 RBC 1.91 L D Hgb 5.2 L* D Hct 16.8 L* D MCV 88.0 MCH 27.2 MCHC 31.0 RDW 15.9 Plt Count 82 L MPV Not Reportable Immature Gran % (Auto) 1.3 H Neut % (Auto) 83.6 H Lymph % (Auto) 4.9 L [place] % (Auto) 10.1 Eos % (Auto) 0.0 Baso % (Auto) 0.1 Lymph # (Auto) 0.5 L [place] # (Auto) 0.9 Eos # (Auto) 0.0 Baso # (Auto) 0.0 Abs Immat Gran (auto) 0.12 H Absolute Neuts (auto) 7.8 Absolute Nucleated RBC 0.030 H Nucleated RBC % (auto) 0.3 H Neutrophils % (Manual) Band Neutrophils % Lymphocytes % (Manual) Monocytes % (Manual) Abs Neuts (Manual) Lymphocytes # (Manual) Monocytes # (Manual) Nucleated RBCs Platelet Estimate Large Platelets Plt Morphology Comment RBC Morphology Polychromasia Hypochromasia Ovalocytes Smear Tech's Comments Smear Path Review Absolute Retic 0.052 Percent Retic 2.8 H Immature Retic Fraction 15.2 Retic Hgb Equivalent 19.5 L Haptoglobin 129 D-Dimer High Sensitivty Sodium Potassium Chloride Carbon Dioxide Anion Gap BUN Creatinine Estim Creat Clear Calc Estimated GFR Random Glucose Lactic Acid Calcium Iron TIBC % Saturation Unsat Iron Binding Ferritin 10 Total Bilirubin 1.1 H Direct Bilirubin 0.5 AST 20 ALT 15 Alkaline Phosphatase 37 L Lactate Dehydrogenase 269 H Troponin I High Sens B-Natriuretic Peptide Total Protein 5.2 L Albumin 3.5 Lipase Vitamin B12 Folate Procalcitonin Urine Color Urine Appearance Urine pH Ur Specific [place] Urine Protein Urine Glucose (UA) Urine Ketones Urine Blood Urine Nitrite Ur Leukocyte Esterase Urine RBC Urine WBC Ur Squamous Epith Cells Urine Bacteria Influenza Type A (PCR) Influenza Type B (PCR) RSV RNA Qual (PCR) SARS-CoV-2 RNA (RT-PCR) Blood Type Antibody Screen ABRAN, Polyspecific Positive ABRAN Work-up Crossmatch 01/29/22 01/30/22 01/31/22 05:24 05:53 05:21 WBC 11.9 H 11.9 H 10.0 RBC 2.56 L D 2.89 L 2.85 L Hgb 7.2 L D 8.2 L 8.0 L Hct 23.1 L D 26.4 L 26.3 L MCV 90.2 91.3 92.3 MCH 28.1 28.4 28.1 MCHC 31.2 31.1 30.4 L RDW 15.8 16.3 H 16.3 H Plt Count 60 L D 74 L 64 L MPV Not Reportable Not Reportable TNP Immature Gran % (Auto) Neut % (Auto) Lymph % (Auto) [place] % (Auto) Eos % (Auto) Baso % (Auto) Lymph # (Auto) [place] # (Auto) Eos # (Auto) Baso # (Auto) Abs Immat Gran (auto) Absolute Neuts (auto) Absolute Nucleated RBC 0.060 H 0.070 H 0.030 H Nucleated RBC % (auto) 0.5 H 0.6 H 0.3 H Neutrophils % (Manual) 84 H Band Neutrophils % 1 L Lymphocytes % (Manual) 11 L Monocytes % (Manual) 4 Abs Neuts (Manual) 10.1 H Lymphocytes # (Manual) 1.3 Monocytes # (Manual) 0.5 Nucleated RBCs 1 H Platelet Estimate DECREASED Large Platelets PRESENT Plt Morphology Comment NOTED RBC Morphology NOTED Polychromasia 1+ (0-2) Hypochromasia 1+ (5-14) Ovalocytes 1+ (5-14) Smear Tech's Comments Smear Path Review Absolute Retic Percent Retic Immature Retic Fraction Retic Hgb Equivalent Haptoglobin D-Dimer High Sensitivty Sodium Potassium Chloride Carbon Dioxide Anion Gap BUN Creatinine Estim Creat Clear Calc Estimated GFR Random Glucose Lactic Acid Calcium Iron TIBC % Saturation Unsat Iron Binding Ferritin Total Bilirubin Direct Bilirubin AST ALT Alkaline Phosphatase Lactate Dehydrogenase Troponin I High Sens B-Natriuretic Peptide Total Protein Albumin Lipase Vitamin B12 Folate Procalcitonin Urine Color Urine Appearance Urine pH Ur Specific [place] Urine Protein Urine Glucose (UA) Urine Ketones Urine Blood Urine Nitrite Ur Leukocyte Esterase Urine RBC Urine WBC Ur Squamous Epith Cells Urine Bacteria Influenza Type A (PCR) Influenza Type B (PCR) RSV RNA Qual (PCR) SARS-CoV-2 RNA (RT-PCR) Blood Type Antibody Screen ABRAN, Polyspecific Positive ABRAN Work-up Crossmatch 01/31/22 01/31/22 05:21 05:21 WBC RBC Hgb Hct MCV MCH MCHC RDW Plt Count MPV Immature Gran % (Auto) Neut % (Auto) Lymph % (Auto) [place] % (Auto) Eos % (Auto) Baso % (Auto) Lymph # (Auto) [place] # (Auto) Eos # (Auto) Baso # (Auto) Abs Immat Gran (auto) Absolute Neuts (auto) Absolute Nucleated RBC Nucleated RBC % (auto) Neutrophils % (Manual) Band Neutrophils % Lymphocytes % (Manual) Monocytes % (Manual) Abs Neuts (Manual) Lymphocytes # (Manual) Monocytes # (Manual) Nucleated RBCs Platelet Estimate Large Platelets Plt Morphology Comment RBC Morphology Polychromasia Hypochromasia Ovalocytes Smear Tech's Comments Smear Path Review Absolute Retic Percent Retic Immature Retic Fraction Retic Hgb Equivalent Haptoglobin D-Dimer High Sensitivty Sodium 144 Potassium 3.8 Chloride 111 H Carbon Dioxide 28 Anion Gap 9 L BUN 20 H Creatinine 0.81 Estim Creat Clear Calc 58.0 Estimated GFR > 60 Random Glucose 83 Lactic Acid Calcium 8.4 Iron TIBC % Saturation Unsat Iron Binding Ferritin Total Bilirubin Direct Bilirubin AST ALT Alkaline Phosphatase Lactate Dehydrogenase Troponin I High Sens B-Natriuretic Peptide Total Protein Albumin Lipase Vitamin B12 Folate Procalcitonin 0.07 Urine Color Urine Appearance Urine pH Ur Specific [place] Urine Protein Urine Glucose (UA) Urine Ketones Urine Blood Urine Nitrite Ur Leukocyte Esterase Urine RBC Urine WBC Ur Squamous Epith Cells Urine Bacteria Influenza Type A (PCR) Influenza Type B (PCR) RSV RNA Qual (PCR) SARS-CoV-2 RNA (RT-PCR) Blood Type Antibody Screen ABRAN, Polyspecific Positive ABRAN Work-up Crossmatch Airway Mallampati Class: II (Edentulous with 2 metal stumps bottom fr) TM Dist: >3cm Neck ROM: Full Heart: drrr Lungs: cta Assessment and Plan Assessment Anesthesia Assessment: Anesthesia Plan Discussed (Cardiology note reviewed high risk, echo unable to obtain, GI aware and wanting to proceed) and Chart Reviewed Final Anesthetic Review Family History of Problems with Anesthesia: No History of Problems with Anesthesia: No NPO: Yes ASA Class: IV Final Preanesthetic Review: No Changes in Pt Med Stat, Meds/Allgs Chart Reviewed and Consent Obtained/Reviewed Patient Risk: Intermediate Procedure Risk: Intermediate Anesthetic Plan Anesthetic Plan: MAC: Disposition: Standard PACU
--- NOTE | 2022-01-31 14:27 | MHC.SHP ---
Pre-Procedural Eval Section A Date of Service: 01/31/22 The patient is an INPATIENT: Yes Changes since office visit: Yes New Medical Problems, Yes Changes in Medication and Yes Patient answered all questions; No Cold of Flu in the past 2 weeks The History & Physical has been completed within 30 days and I have reviewed it.: No Section B Chief Complaint: COPD/ asthma exacerbation Allergies: Allergies Allergy/AdvReac Type Severity Reaction Status Date / Time amoxicillin Allergy Unknown Hives Verified 01/28/22 04:29 penicillin V Allergy Unknown Hives Verified 01/28/22 04:29 Penicillins [PENICILLINS] Allergy Unknown HIVES Verified 01/28/22 04:29 Sulfa (Sulfonamide Allergy Unknown HIVES Verified 01/28/22 04:29 Antibiotics) [SULFA (SULFONAMIDE ANTIBIOTICS)] Plan I have reviewed the history and physical and performed a pertinent physical examination on my patient. No changes have occurred unless specified.
--- NOTE | 2022-01-31 14:28 | P.OP_ITS ---
Operative Note Operative Note Date of Service: 01/31/22 Narrative: Pre-op diagnosis: Severe iron deficiency anemia Post-op diagnosis:?other (hiatal hernia, gastric erosions, duodenal bulb nodule) Procedure: FLEXIBLE TRANSORAL UPPER GASTROINTESTINAL ENDOSCOPY WITH BIOPSIES AND COLONOSCOPY TILL CECUM WITH BIOPSIES AND ABLATION OF AVM WITH APC (Argon Plasma Coagulation) UPPER ENDOSCOPY Consent:?Indications for the procedure and potential complications of bleeding, perforation, reaction to medications and missed diagnosis were discussed with the patient and informed consent was obtained. Instrument:?Olympus GIF H 190 mid size upper endoscope Monitoring: Vital signs and clinical assessment, continuous EKG monitoring, Pulse oximetry, Carbon Dioxide monitoring and blood pressure monitoring were done throughout the procedure. Procedure:?The patient was placed in the left lateral decubitis position and pre-procedure medications were administered and a bite block was placed. The endoscope was inserted into the mouth and advanced under direct vision to the third part of duodenum. A careful inspection was made as the upper endoscope was withdrawn including a retroflexed examination of the proximal stomach; Findings and interventions are described below. Findings: Larynx:? Normal Esophagus:?GE junction at 35 cms, hiatal hernia 35 to 38 cms. Minimal esophagitis with a 0.5 cms superficial erosion at GEJ.? ? Stomach:?Moderate gastric erythema with multiple chronic apearing antral erosions Biopsies were obtained. Grade 3 flap valve on retroflexed examination of the cardia. Duodenum:?Duoentitis in the apex of the bulb with a 1 cms edematous fold/benign appearing nodule - biopsied. Normal descending duodenum - biopsies were obtained to check for celiac sprue Intervention:?Biopsies as noted above COLONOSCOPY PROCEDURE NOTE Consent:?Indications for the procedure and potential complications of bleeding, perforation, reaction to medications and missed diagnosis were discussed with the patient and informed consent was obtained. Instrument:?Olympus PCF H 190 L variable stiffness pediatric colonoscope Monitoring:?Vital signs and clinical assessment, intermittent blood pressure monitoring, continuous EKG monitoring, Pulse oximetry and Carbon Dioxide monitoring were done throughout the procedure. Colon withdrawl time was 40 minutes. Procedure:?The patient was placed in the left lateral decubitis position and pre-procedure medications were administered. After a digital rectal examination of the ano-rectum, the video colonoscope was inserted into the rectum and advanced through the colon to the cecum. The colonoscope was slowly withdrawn in a retrograde panoramic fashion and the colon mucosa was carefully examined including a retroflexed view of the rectum. Findings and interventions are described below. Procedure Difficulty:?: Without difficulty Findings: Terminal Ileum: Not evaluated Cecum:? A 1 cms non- bleeding AVM ablated with APC Ascending Colon:??Normal Transverse Colon:??Normal Descending Colon:? Moderate diverticulosis Sigmoid Colon:??Patchy resolving colitis from 50 to 60 cms with erythema and superficial ulcers - biopsies obtained. Moderate diverticulosis Rectum:??A few 3-4 mm diminutive appearing polyps - biopsied. Ano-rectum:??Moderate internal hemorrhoids Colon preparation:? Good to Fair after copious irrigation Impression and Post Procedure Diagnosis: Endoscopy Findings: ESOPHAGUS: Small hiatal hernia 35 to 38 cms. Minimal esophagitis with a 0.5 cms superficial erosion at GEJ.? ? STOMACH: Moderate gastric erythema with multiple chronic apearing antral erosions Biopsies were obtained. DUODENUM:? Duoentitis in the apex of the bulb with a 1 cms edematous fold/benign appearing nodule - biopsied. Normal descending duodenum - biopsies were obtained to check for celiac sprue Colonoscopy Findings: ?A 1 cms non- bleeding AVM in the cecum ablated with APC Patchy resolving colitis from 50 to 60 cms with erythema and superficial ulcers (? ischemic colitis versus due to NSAID) - biopsies obtained. A few 3-4 mm diminutive appearing rectal polyps - biopsied. Moderate diverticulosis seen in the left colon Moderate hemorrhoids on retroflexed exam. Plan: Await pathology results. Pt will be scheduled for a Capsule Endoscopy as an outpatient Patient to schedule a FU appointment in the GI Clinic with SHAYLEE Grier . Repeat Colonoscopy interval based on path results - in 1 year due to fair prep Above findings were reviewed with the patient. Surgeon: Olga Castellano MD Anesthesia:?MAC (Dr Walker) Was an Registered Phlebotomist Part Time used for this Procedure?:?No Registered Phlebotomist Part Time:?Sahil Hill Estimated blood loss (mL):?0 Pathology:?other (A- SMALL BOWEL BXS ? R/O CELIAC? B- DUODENAL NODULE BX? C- GASTRIC ANTRUM BXS? R/O H. PYLORI? D- SIGMOID COLON BIOPSIES- R/O COLITIS? E- RECTAL POLYPS) Condition:?stable Disposition:?PACU
--- NOTE | 2022-01-31 14:28 | P.BOP_ITS ---
Brief Operative Note Date of Service: 01/31/22 Pre-op diagnosis: Severe iron deficiency anemia Post-op diagnosis: other (hiatal hernia, gastric erosions, duodenal bulb nodule) Procedure: FLEXIBLE TRANSORAL UPPER GASTROINTESTINAL ENDOSCOPY WITH BIOPSIES AND COLONOSCOPY TILL CECUM WITH BIOPSIES AND ABLATION OF AVM WITH APC (Argon Plasma Coagulation) UPPER ENDOSCOPY Consent: Indications for the procedure and potential complications of bleeding, perforation, reaction to medications and missed diagnosis were discussed with the patient and informed consent was obtained. Instrument: Olympus GIF H 190 mid size upper endoscope Monitoring: Vital signs and clinical assessment, continuous EKG monitoring, Pulse oximetry, Carbon Dioxide monitoring and blood pressure monitoring were done throughout the procedure. Procedure: The patient was placed in the left lateral decubitis position and pre-procedure medications were administered and a bite block was placed. The endoscope was inserted into the mouth and advanced under direct vision to the third part of duodenum. A careful inspection was made as the upper endoscope was withdrawn including a retroflexed examination of the proximal stomach; Findings and interventions are described below. Findings: Larynx: Normal Esophagus: GE junction at 35 cms, hiatal hernia 35 to 38 cms. Minimal esophagitis with a 0.5 cms superficial erosion at GEJ. Stomach: Moderate gastric erythema with multiple chronic apearing antral erosions Biopsies were obtained. Grade 3 flap valve on retroflexed examination of the cardia. Duodenum: Duoentitis in the apex of the bulb with a 1 cms edematous fold/benign appearing nodule - biopsied. Normal descending duodenum - biopsies were obtained to check for celiac sprue Intervention: Biopsies as noted above COLONOSCOPY PROCEDURE NOTE Consent: Indications for the procedure and potential complications of bleeding, perforation, reaction to medications and missed diagnosis were discussed with the patient and informed consent was obtained. Instrument: Olympus PCF H 190 L variable stiffness pediatric colonoscope Monitoring: Vital signs and clinical assessment, intermittent blood pressure monitoring, continuous EKG monitoring, Pulse oximetry and Carbon Dioxide monitoring were done throughout the procedure. Colon withdrawl time was 40 minutes. Procedure: The patient was placed in the left lateral decubitis position and pre-procedure medications were administered. After a digital rectal examination of the ano-rectum, the video colonoscope was inserted into the rectum and advanced through the colon to the cecum. The colonoscope was slowly withdrawn in a retrograde panoramic fashion and the colon mucosa was carefully examined including a retroflexed view of the rectum. Findings and interventions are described below. Procedure Difficulty: : Without difficulty Findings: Terminal Ileum: Not evaluated Cecum: A 1 cms non- bleeding AVM ablated with APC Ascending Colon: Normal Transverse Colon: Normal Descending Colon: Moderate diverticulosis Sigmoid Colon: Patchy resolving colitis from 50 to 60 cms with erythema and superficial ulcers - biopsies obtained. Moderate diverticulosis Rectum: A few 3-4 mm diminutive appearing polyps - biopsied. Ano-rectum: Moderate internal hemorrhoids Colon preparation: Good to Fair after copious irrigation Impression and Post Procedure Diagnosis: Endoscopy Findings: ESOPHAGUS: Small hiatal hernia 35 to 38 cms. Minimal esophagitis with a 0.5 cms superficial erosion at GEJ. STOMACH: Moderate gastric erythema with multiple chronic apearing antral erosions Biopsies were obtained. DUODENUM: Duoentitis in the apex of the bulb with a 1 cms edematous fold/benign appearing nodule - biopsied. Normal descending duodenum - biopsies were obtained to check for celiac sprue Colonoscopy Findings: A 1 cms non- bleeding AVM in the cecum ablated with APC Patchy resolving colitis from 50 to 60 cms with erythema and superficial ulcers (? ischemic colitis versus due to NSAID) - biopsies obtained. A few 3-4 mm diminutive appearing rectal polyps - biopsied. Moderate diverticulosis seen in the left colon Moderate hemorrhoids on retroflexed exam. Plan: Await pathology results. Capsule Endoscopy as an outpatient Patient to schedule a FU appointment in the GI Clinic with SHAYLEE Grier . Repeat Colonoscopy interval based on path results - in 1 year due to fair prep Above findings were reviewed with the patient. Surgeon: Olga Castellano MD Anesthesia: MAC (Dr Walker) Was an Information Resources Manager used for this Procedure?: No Information Resources Manager: Sahil Hill Estimated blood loss (mL): 0 Pathology: other (A- SMALL BOWEL BXS R/O CELIAC B- DUODENAL NODULE BX C- GASTRIC ANTRUM BXS R/O H. PYLORI D- SIGMOID COLON BIOPSIES- R/O COLITIS E- RECTAL POLYPS) Condition: stable Disposition: PACU
[2022-01-31] MEDS: oxyCODONE HCl Immed Release 5 MG TABLET PO ×2 (17:30→23:33)
[2022-01-31] MEDS: Doxycycline Hyclate 100 MG in 0.9 % Sodium Chloride 250 ML 83.34 MG IV (21:23)
[2022-01-31] MEDS: Acetaminophen 325 MG TABLET 650 MG PO (23:33)
[2022-02-01 04:00] VITALS: BP 126/59; PULSE 81; RESP 18; TEMP 36.4; O2SAT 98
[2022-02-01] MEDS: Pantoprazole Sodium 40 MG/10 ML VIAL IVPUSH (05:28)
[2022-02-01 05:52] LABS: Hemoglobin 8.3 g/dl (12.0-16.0); PLT ABN DIST 1
[2022-02-01 05:54] LABS: Hematocrit 26.8 % (37.0-47.0); Mean Corpuscular Volume 93.7 fL (80.0-98.0); NRBC Pct Auto 0.2 /100WBC (0.0-0.2); Platelet Count 64 X10*3/uL (160-400); Red Blood Count 2.86 X10*6/uL (4.20-5.50); Red Cell Distribution Width 16.9 % (11.0-16.0); White Blood Count 10.4 X10*3/uL (4.8-10.8)
[2022-02-01] MEDS: Famotidine 20 MG TABLET PO (06:45)
--- NOTE | 2022-02-01 06:53 | HO.POSTANES ---
Post Anesthesia Evaluation Post Anesthesia Evaluation Vital Signs: Vital Signs Temp Pulse Resp BP Pulse Ox 02/01/22 04:00 97.5 F 81 18 126/59 L 98 01/31/22 23:31 97.3 F 82 18 135/62 96 01/31/22 19:18 97.8 F 92 18 96/60 95 Anesthesia: Monitored Mental Status: Awake Pain Control: Satisfactory Nausea/Vomiting: None Hydration: Adequate Anesthesia-Related Issues: No Anes. Related Issues
[2022-02-01 07:19] VITALS: BP 141/65; PULSE 72; RESP 18; TEMP 36.5; O2SAT 97
[2022-02-01] MEDS: Albuterol/Iprat 2.5/0.5MG 3 ML AMPUL.NEB INHALE ×2 (07:33→11:54)
[2022-02-01 07:35] VITALS: PULSE 71; RESP 18; O2SAT 95
[2022-02-01] MEDS: 0.9 % Sodium Chloride Flush 3 ML SYRINGE IVFLUSH (08:51)
[2022-02-01] MEDS: Cholecalciferol (Vitamin D3) 25 MCG TABLET PO (08:51)
[2022-02-01] MEDS: Diclofenac Sodium Delayed Rel 75 MG TABLET.DR PO (08:52)
[2022-02-01] MEDS: ALPRAZolam 0.5 MG TABLET PO ×2 (08:52→14:30)
[2022-02-01] MEDS: Cyanocobalamin (Vitamin B-12) 1,000 MCG TABLET 1000 MCG PO (08:52)
[2022-02-01] MEDS: buPROPion HCl XL 300 MG TAB.ER.24H PO (08:53)
[2022-02-01] MEDS: predniSONE 20 MG TABLET 40 MG PO (08:54)
[2022-02-01] MEDS: Metoprolol Succinate ER 12.5 MG HALFTAB.ER.24H PO (08:54)
[2022-02-01] MEDS: Acetaminophen 325 MG TABLET 650 MG PO (08:59)
[2022-02-01] MEDS: oxyCODONE HCl Immed Release 5 MG TABLET PO ×2 (08:59→14:30)
[2022-02-01] MEDS: Fluticasone Propionate Nasal 16 GM SPRAY 1 SPRAY NOSTRIL-B (09:00)
--- NOTE | 2022-02-01 10:07 | PM.PNCARD ---
Subjective Subjective Date of Service: 02/01/22 Interval history: She states that she is doing okay. When I questioned her about cardiac symptoms, denies any anginal-type symptoms or shortness of breath or palpitations or anything cardiac related at all. Review of Systems Review of Systems Yes all other systems are reviewed and are negative Constitutional: Reports as per HPI Eyes: Reports as per HPI Reports as per HPI Cardiovascular: Reports as per HPI, Denies acrocyanosis, Denies cool extremities, Denies chest pain, Denies leg edema, Denies lightheadedness, Denies palpitations and Denies dyspnea Respiratory: Reports as per HPI, Reports no additional respiratory complaints and Denies dyspnea Gastrointestinal: Reports as per HPI and Reports no additional gastrointestinal complaints Genitourinary: Reports as per HPI Musculoskeletal: Reports no additional musculoskeletal complaints and Reports as per HPI Skin/Breast: Reports system reviewed and no additional complaints, except as docu Reports system reviewed and no additional complaints, except as documented and Reports as per HPI Psychiatric: Reports no additional psychiatric complaints and Reports as per HPI Endocrine: Reports no additional endocrine complaints, Reports as per HPI and Denies palpitations Hematologic/Lymphatic: Reports no additional hematologic/lymphatic complaints and Reports as per HPI Allergic/Immunologic: Reports no additional allergic/immunologic complaints and Reports as per HPI Physical Exam Vital Signs: Last Vital Signs Temp 97.7 F 02/01/22 07:19 Pulse 71 02/01/22 07:35 Resp 18 02/01/22 07:35 BP 141/65 H 02/01/22 07:19 Pulse Ox 97 02/01/22 07:19 Oxygen Flow Rate 3 01/27/22 10:52 BMI result Body Mass Index 30.9 Const General: comfortable and no acute distress Orientation/consciousness: patient oriented x3 HEENT Other: Unremarkable Head: Yes normal to inspection Neck Neck: Yes normal visual inspection Chest Chest palpation & inspection: normal inspection of the chest Resp Auscultation: crackles and rhonchi Cardio Palpation: normal PMI Heart sounds: S1 normal heart sound present, S2 normal heart sound present, no gallops, Murmur heart sound present systolic III/ and at the right sternal border and no rubs GI Palpation (GI): Soft to palpation Back/Spine/Pelvis Other: unremarkable Skin General skin exam: no rashes or lesions noted Neuro General: patient oriented x3 Extrem General: Yes normal to inspection Psych Mental Status: mental status grossly normal Objective Labs and Meds Result diagrams: 02/01/22 05:29 01/31/22 05:21 Lab results: Laboratory Results - last 24 hr 02/01/22 05:29 WBC 10.4 RBC 2.86 L Hgb 8.3 L Hct 26.8 L MCV 93.7 MCH 29.0 MCHC 31.0 RDW 16.9 H Plt Count 64 L MPV TNP Absolute Nucleated RBC 0.020 H Nucleated RBC % (auto) 0.2 Progress Note: A&P Assessment and plan (1) Cardiomyopathy: Status: Acute (2) Atherosclerotic cardiovascular disease: Status: Acute (3) Non-rheumatic aortic stenosis: Status: Acute (4) Non-rheumatic aortic regurgitation: Status: Acute (5) Non-rheumatic mitral regurgitation: Status: Acute (6) Ascending aorta dilatation: Status: Acute Plan Echocardiogram from yesterday-LVEF 45-50%. Inferior wall motion abnormality. Moderate aortic stenosis/regurgitation. Mild mitral regurgitation and mild ascending aortic dilatation. Her EKG is also suggestive of inferior infarct. CT chest performed for noncardiac reasons last year had shown coronary artery calcification and mild dilatation of ascending aorta at 4.1 c Labs reviewed. Hemoglobin is 8.3 but 3.5 upon arrival. Platelet count is also low at 64. High sensitivity troponin 24.9 and 27.2. Overall, high pretest probability of underlying CAD. However per patient, has not had a stress test or catheterization. Hence unknown coronary status. At this time, she has no active anginal type symptoms. Hence we can treat for presumed CAD. However, she is quite anemic and she also has low platelets-hence aspirin use may be difficult. If okayed by GI, possibly consider using. Otherwise, beta-blockers and statins. She will need outpatient ischemic workup. She states she already goes to and strongly advised to follow with him. Discussed with Dr. Kwadwo deleon. Time Spent With Patient Time: Total time spent is greater than 50% in coordination of care (as documented) at patient's floor/unit and/or counseling patient: 40min. Progress Note: Quality Stroke Does the patient have a stroke diagnosis?: No Procedures Date of Service Date of Service: 02/01/22
[2022-02-01 11:39] VITALS: BP 138/65; PULSE 88; RESP 20; TEMP 37.1; O2SAT 93
[2022-02-01 11:57] VITALS: PULSE 70; RESP 18; O2SAT 98
--- NOTE | 2022-02-01 12:17 | P.DS_ITS ---
DS: Providers Provider Date of Service: 02/01/22 Date of admission: 01/27/22 16:58 Date of discharge: 02/01/22 Primary care physician: Joseph Magana MD Consults: 01/27/22 22:12 Consult to Hematology / Oncology Routine Consulting Provider: Adrianna Stoner Reason for consultation: anemia 01/28/22 14:12 Consult to Gastroenterology Routine Consulting Provider: [facility] G[facility]ology [facility] Reason for consultation: profound anemia ?GI lsoss FoBT pending 01/31/22 08:15 Consult to Cardiology Routine Consulting Provider: [facility] Cardiovascular Services Reason for consultation: planned EGD/C-scope today, hx HFrEF though not decompensated DS: Diagnosis Discharge Diagnosis (1) Cardiomyopathy: Status: Acute (2) Atherosclerotic cardiovascular disease: Status: Acute (3) Non-rheumatic aortic stenosis: Status: Acute (4) Non-rheumatic aortic regurgitation: Status: Acute (5) Non-rheumatic mitral regurgitation: Status: Acute (6) Ascending aorta dilatation: Status: Acute DS: Summary Hospital Course Hospital Course: 75yo F with COPD/chronic bronchitis/asthma, anxiety, GERD, chronic HFrEF, and chronic ITP who presents to the [facility] ED with 4 days of worsening cough productive of yellow sputum, nasal congestion, sneezing, dyspnea, and wheezing unrelieved by her albuterol inhaler or nebulizer.? She is on an inhaled steroid as her controller medication.? She is not on home O2.? No recent steroids or antibiotics.? Has been vaccinated against Covid-19.? Denies chest pain, palpitations, leg swelling, fever, chills, or hemoptysis.? Upon arrival in the ED, RA SaO2 was 88% and she was placed on 2L of O2 via NC.? CXR showed a possible R infrahilar infiltrate.? Two serial hs-Tn-I were 24.9 then 27.2.? EKG sinus tachycardia with no ischemic changes.? Procalcitonin pending.? PCR for influenza, Covid-19, and RSV negative.? She was given a dose of methylprednisolone and levofloxacin, along with magnesium, Duoneb, and an additional albuterol nebulization. Hospital course Transfused 3u pRBCs 01/27, 1u pRBCs 01/28, 1u pRBCs 01/29;Hgb stable at 8.2. EGD/Colonoscopy done 01/31/22: EGD demonstrated minimal esophagitis and mild gastritis with multiple chronic antral erosions. Colonoscopy failed to demonstrate any acute issues. At this point in time hemoglobin is stable and GI recommendation is for outpatient follow-up for capsule endoscopy. She has an appointment with her PCP in approximately 1 week and will discuss aspirin therapy with her. Seen by Cardiology preop and recommends following up with Dr. Pablo Time Spent with Patient Time attestation: Total time spent providing and/or coordinating discharge services: Discharge coordination time: Greater than 30 minutes Quality: Safe Use of Opioids Does Pt have an Active Cancer Diagnosis on the Problem List?: No Quality: Stroke Does the patient have a stroke diagnosis?: No Physical Exam Vital Signs: Vital Signs: Last Vital Signs Temp 98.7 F 02/01/22 11:39 Pulse 70 02/01/22 11:57 Resp 18 02/01/22 11:57 BP 138/65 02/01/22 11:39 Pulse Ox 93 02/01/22 11:39 Oxygen Flow Rate 3 01/27/22 10:52 BMI result Body Mass Index 30.9 Const: Other: Awake alert oriented x3 no acute distress Resp: Other: Clear to auscultation bilaterally no rales rhonchi wheezes Cardio: Other: No S4; positive S1-S2; no S3 murmurs rubs or gallops GI: Other: Soft nontender nondistended normoactive bowel sounds. No acute peritoneal signs Extrem: Other: No edema bilaterally DS: Data Data Completed and Pending Pending studies at discharge: Pending at discharge 01/31/22 14:53 Surgical [PTH] Routine Labs on day of discharge: Laboratory Results - last 24 hr 02/01/22 05:29 WBC 10.4 RBC 2.86 L Hgb 8.3 L Hct 26.8 L MCV 93.7 MCH 29.0 MCHC 31.0 RDW 16.9 H Plt Count 64 L MPV TNP Absolute Nucleated RBC 0.020 H Nucleated RBC % (auto) 0.2 Preliminary micro results at discharge 01/27/22 22:50 Blood Culture - Preliminary Blood - Arterial No growth after 48 hours. 01/27/22 16:31 Blood Culture - Preliminary Blood - Arterial No growth after 48 hours. 01/27/22 16:31 Blood Culture - Preliminary Blood - Arterial No growth after 48 hours. 01/27/22 16:05 Blood Culture - Preliminary Blood - Arterial No growth after 48 hours. Discharge Plan Discharge Patient Disposition: Home, Self-Care Discharge Diagnosis: Anemia Referrals: Name,MD oJseph [Primary Care Provider] - 1 Week Discharge Medications: New prednisone 20 mg tablet See Rx Instructions .ROUTE .COMPLEX Qty: 18 0RF Rx Instructions: 20 mg orally ;20 mg orally; 3 tabs daily for 3 days, of 2 tabs daily for 3 days, 1 tab daily for 3 days doxycycline hyclate 100 mg tablet 100 mg PO BID Qty: 10 0RF Continued bupropion HCl 150 mg tablet sustained-release 12 hr 1 tab PO BID 0RF aspirin 81 mg Tablet,Delayed Release (Dr/Ec) 81 mg PO DAILY 0RF alprazolam 0.5 mg tablet 1 tab PO TID PRN (Reason: Anxiety) 0RF hydrocodone-acetaminophen 7.5-325 mg tablet 1 tab PO TID PRN (Reason: Pain) 0RF diclofenac sodium 75 mg tablet,delayed release (DR/EC) 1 tab PO BID 0RF albuterol sulfate [ProAir HFA] 90 mcg/actuation HFA aerosol inhaler 90 inh inhalation Q4H PRN (Reason: Wheezing) 0RF ondansetron HCl [Zofran] 4 mg Tablet 4 mg PO BID PRN (Reason: Nausea) Qty: 60 0RF biotin 500 mcg Capsule 1 mg PO DAILY 0RF cholecalciferol (vitamin D3) [Vitamin D3] 25 mcg (1,000 unit) Capsule 1,000 unit PO DAILY 0RF metoprolol succinate [Toprol XL] 25 mg tablet extended release 24 hr 12.5 mg PO DAILY Qty: 30 0RF albuterol sulfate 2.5 mg /3 mL (0.083 %) solution for nebulization 2.5 mg inhalation Q4H PRN (Reason: Wheezing) 0RF cimetidine 400 mg tablet 1 tab PO DAILY PRN (Reason: Acid Reflux) 0RF fluticasone propionate 50 mcg/actuation spray,suspension 1 spray intranasal DAILY 0RF vitamin A 2,400 mcg Capsule 2,400 mcg PO DAILY 0RF cyanocobalamin (vitamin B-12) 1,000 mcg Tablet 1,000 mcg PO DAILY 0RF Discharge Orders: Discharge Order (Routine); Ordered 02/01/22 Ordered By: Kwadwo Ray Diet: advance to usual diet Activity on Discharge: As tolerated Stand Alone Forms: Patient Portal Discharge page Care Plan Goals: Complete course of doxycycline twice daily for 5 days; prednisone taper as ordered Health Concerns: Call to make follow-up appointment in GI Clinic with Marleny JUNE Plan of Treatment: Resume all previous hospital medicines. Hold aspirin until seen by PCP Assessment: See discharge summary
--- NOTE | 2022-02-01 13:01 | MHC.CM.PN ---
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 she will resume her services with [facility] for her meals on wheels , she has arranged for her friend to bring her her house keys and provide transportation home . . discharge plan home wikaryn no services ordered pcp follow up frecomended for post hospitla discharge transportation her friend medicare immm updated
[2022-02-03 14:30] LABS: Transglutaminase Ab IgG <1.0 U/mL; Transglutaminase IgA <1.0 U/mL
[2022-02-03 14:34] LABS: Immunoglobulin A 43 mg/dL (70-320)
== END 2022-02-01 15:12 | disposition home or self-care (01) | DRG 811 ==
LOC: HO.ED 15:56 → HO.EDOVER 17:31 → HO.S3 01-28 17:11
PROVIDERS: Hospitalist; Internal Medicine Gastroenterology; Internal Medicine Medical Oncology; Admitting Provider Family Medicine; Emergency Provider Emergency Medicine; PCP Internal Medicine Geriatric Medicine; Visit Provider Hospitalist
PROC: 0DB98ZX Excision of Duodenum, Via Natural or Artificial Opening Endoscopic, Diagnostic (ICD-10-PCS; principal; 2022-01-31 14:50)
DX: D50.0 Iron deficiency anemia secondary to blood loss (chronic) (principal); J18.9 Pneumonia, unspecified organism; J96.01 Acute respiratory failure with hypoxia; J45.901 Unspecified asthma with (acute) exacerbation; J44.0 Chronic obstructive pulmonary disease with (acute) lower respiratory infection; I50.22 Chronic systolic (congestive) heart failure; D69.3 Immune thrombocytopenic purpura; I42.9 Cardiomyopathy, unspecified; K21.9 Gastro-esophageal reflux disease without esophagitis; F39 Unspecified mood [affective] disorder; I08.0 Rheumatic disorders of both mitral and aortic valves; I25.10 Atherosclerotic heart disease of native coronary artery without angina pectoris; K55.20 Angiodysplasia of colon without hemorrhage; K62.1 Rectal polyp; K44.9 Diaphragmatic hernia without obstruction or gangrene; K52.9 Noninfective gastroenteritis and colitis, unspecified; K64.9 Unspecified hemorrhoids; Z20.822 Contact with and (suspected) exposure to COVID-19; Z87.891 Personal history of nicotine dependence; Z88.0 Allergy status to penicillin; Z88.2 Allergy status to sulfonamides; Z79.51 Long term (current) use of inhaled steroids; Z79.82 Long term (current) use of aspirin; Z79.899 Other long term (current) drug therapy
CPT/HCPCS: 0241U; 36415; 71045; 74176; 80048; 80076; 81001; 82607; 82728; 82746; 82784; 83010; 83540; 83605; 83615; 83690; 83880; 84145; 84484; 85007; 85025; 85027; 85045; 85379; 86364; 86850; 86880; 86900; 86901; 86923; 87040; 88305; 88342; 93005; 93306; 94640; 94644; 96365; 96366; 96367; 96375; 97162; 99285; J1750; J1756; J1956; J2250; J2370; J2405; J2920; J2930; J3010; J3475; P9016; Q0163

== ENCOUNTER → 2022-03-02 07:53 | Outpatient (BNVA) | payer OTHER, SELFPAY | PROVIDERS: PCP Internal Medicine Geriatric Medicine; Visit Provider Internal Medicine Gastroenterology | DX: D64.9 Anemia, unspecified (principal); K29.70 Gastritis, unspecified, without bleeding; K29.80 Duodenitis without bleeding | CPT/HCPCS: 91110 ==

== ENCOUNTER 2022-03-17 07:42 | Outpatient (REF) | payer OTHER, SELFPAY ==
--- NOTE | ~2022-03-17 | XR_ITS ---
EXAMINATION: XR KNEE, RIGHT CLINICAL INFORMATION: Right knee pain COMPARISON: None TECHNIQUE: Four views of the right knee. FINDINGS: There is a total right knee arthroplasty with prosthetic components in satisfactory alignment. There is no prior study loosening or periprosthetic fracture. No abnormal joint effusion or loose body seen. XR/XR knee RT 4V IMPRESSION: Total right knee arthroplasty in alignment. No abnormality seen.
[2022-03-17 08:54] LABS: MANUAL DIFF FLAG NO
[2022-03-17 08:56] LABS: Basophils Absolute Auto 0.1 X10*3/uL (0.0-0.2); Basophils Percent Auto 0.7 % (0-2); Eosinophils Absolute Auto 0.1 X10*3/uL (0.0-0.4); Eosinophils Percent Auto 1.4 % (0-4); Hematocrit 32.9 % (37.0-47.0); INTERNATIONAL NORM RATIO 1.1 (0.9-1.1); Imm Gran Abs Auto 0.02 X10*3/uL (0.00-0.03); Imm Gran Pct Auto 0.3 % (0.0-0.4); Lymphocytes Absolute Auto 0.8 X10*3/uL (1.2-4.9); Lymphocytes Percent Auto 11.1 % (20-40); Mean Corpuscular HGB Conc 30.4 g/dl (31.0-35.0); Mean Corpuscular Hemoglobin 29.2 pg (27.0-33.0); Mean Corpuscular Volume 95.9 fL (80.0-98.0); Monocytes Absolute Auto 0.5 X10*3/uL (0.1-1.2); Monocytes Percent Auto 7.4 % (2-11); Neutrophils Absolute Auto 5.6 x10*3/uL (2.0-8.3); Neutrophils Percent Auto 79.1 % (45-73); Prothrombin Time 13.1 SEC (10.0-13.1); Red Blood Count 3.43 X10*6/uL (4.20-5.50)
[2022-03-17 09:00] LABS: Platelet Count 58 X10*3/uL (160-400)
[2022-03-17 09:51] LABS: Anion Gap 13 (12-20); Blood Urea Nitrogen 29 mg/dL (9-16); Calcium 8.5 mg/dL (8.4-10.2); Carbon Dioxide 25 mmol/L (22-29); Chloride 109 mmol/L (96-108); Estimated Glomerular Filt Rate > 60; Glucose Random 86 mg/dL (60-115); Potassium 4.2 mmol/L (3.3-5.1); Sodium 143 mmol/L (135-145)
[2022-03-17 09:52] LABS: Ferritin 53 ng/mL (10-250)
== END 2022-03-17 07:43 | disposition home or self-care (01) ==
LOC: HO.XRAY 07:42
PROVIDERS: Absent Provider Internal Medicine Geriatric Medicine; PCP Internal Medicine Geriatric Medicine; Visit Provider Internal Medicine Gastroenterology
DX: D69.6 Thrombocytopenia, unspecified (principal); D64.9 Anemia, unspecified; I50.9 Heart failure, unspecified; M25.561 Pain in right knee; Z87.19 Personal history of other diseases of the digestive system
CPT/HCPCS: 36415; 73564; 80048; 82728; 85025; 85610

== ENCOUNTER 2022-04-12 11:33 | Emergency (ER) | payer OTHER, SELFPAY ==
--- NOTE | ~2022-04-12 | XR_ITS ---
EXAMINATION: XR CHEST CLINICAL INFORMATION: Shortness of breath, CHF COMPARISON: Chest radiograph 01/27/2022 TECHNIQUE: Frontal view of the chest was obtained. FINDINGS: Heart size within normal limits. There is no evidence of CHF or pulmonary edema. Bibasilar atelectasis is present with a new area of linear platelike atelectasis at the right lung base. No consolidations, effusions or gross CHF is seen. XR/XR chest 1V IMPRESSION: No acute intrathoracic
[2022-04-12 11:40] VITALS: BP 103/56; BP 118/47; PULSE 70; PULSE 87; RESP 20; O2SAT 100; O2SAT 91; BMI 38.4
--- NOTE | 2022-04-12 11:45 | ECG_ITS ---
Test Reason : SOB Blood Pressure : / mmHG Vent. Rate : 091 BPM Atrial Rate : 091 BPM P-R Int : 162 ms QRS Dur : 092 ms QT Int : 468 ms P-R-T Axes : 076 -28 061 degrees QTc Int : 575 ms Artifact in tracing Normal sinus rhythm Cannot rule out Septal infarct , age undetermined cannot exclude old Inferior infarct (cited on or before 27-JAN-2022) Abnormal ECG When compared with ECG of 27-JAN-2022 11:43, No significant changes seen Referred By: Anne Aldridge Electronically Signed By:TEDDY MOTLEY
[2022-04-12 11:46] VITALS: TEMP 37.2
--- NOTE | 2022-04-12 11:48 | ED.GENADULT ---
HPI - General Adult General Chief complaint: Upper Respiratory Symptoms Stated complaint: Difficulty Breathing Time Seen by Provider: 04/12/22 11:38 Source: patient and EMS Mode of arrival: EMS Limitations: no limitations History of Present Illness HPI narrative: Patient comes to the emergency room complaining of shortness of breath. Patient states that the shortness of breath has been present since this morning, worse with exertion especially walking up the stairs. Patient has history of COPD and CHF. Patient states that this morning she was drinking alcohol friends, vodka and martinis. Patient denies chest pain, no abdominal pain. Patient has noticed that her legs are more swollen than usual. Patient takes Lasix but states that she did not take it this morning because she knew she was going to be out with her friends and did not want to go frequently to use the restroom. Also, EMS point now the patient was prescribed 30 tablets of oxycodone on March 24, today all of her tablets were gone. Patient denies using oxycodone for the. Per EMS, patient's oxygen saturation has been above 90% Related Data Home Medications Medication Instructions Recorded Confirmed albuterol sulfate 90 mcg/actuation 90 inh inhalation Q4H PRN Wheezing 12/07/20 03/17/22 aerosol inhaler (ProAir HFA) alprazolam 0.5 mg tablet 1 tab PO TID PRN Anxiety 12/07/20 03/17/22 aspirin 81 mg tablet,delayed 81 mg PO DAILY 12/07/20 03/17/22 release bupropion HCl 150 mg tablet,12 hr 1 tab PO BID 12/07/20 03/17/22 sustained-release diclofenac sodium 75 mg 1 tab PO BID 12/07/20 03/17/22 tablet,delayed release hydrocodone 7.5 mg-acetaminophen 1 tab PO TID PRN Pain 12/07/20 03/17/22 325 mg tablet biotin 500 mcg capsule 1 mg PO DAILY 02/07/21 03/17/22 cholecalciferol (vitamin D3) 25 1,000 unit PO DAILY 02/07/21 03/17/22 mcg (1,000 unit) capsule (Vitamin D3) albuterol sulfate 2.5 mg/3 mL 2.5 mg inhalation Q4H PRN Wheezing 01/27/22 03/17/22 (0.083 %) solution for nebulization cimetidine 400 mg tablet 1 tab PO DAILY PRN Acid Reflux 01/27/22 03/17/22 cyanocobalamin (vitamin B-12) 1,000 mcg PO DAILY 01/27/22 03/17/22 1,000 mcg tablet fluticasone propionate 50 1 spray intranasal DAILY 01/27/22 03/17/22 mcg/actuation nasal spray,suspension vitamin A 2,400 mcg capsule 2,400 mcg PO DAILY 01/27/22 03/17/22 Previous Rx's Medication Instructions Recorded ondansetron HCl 4 mg tablet 4 mg PO BID PRN Nausea #60 tabs 12/08/20 (Zofran) metoprolol succinate 25 mg 12.5 mg PO DAILY #30 tabs 02/10/21 tablet,extended release 24 hr (Toprol XL) doxycycline hyclate 100 mg tablet 100 mg PO BID #10 tabs 02/01/22 Allergies Allergy/AdvReac Type Severity Reaction Status Date / Time amoxicillin Allergy Unknown Hives Verified 03/17/22 07:12 penicillin V Allergy Unknown Hives Verified 03/17/22 07:12 Penicillins [PENICILLINS] Allergy Unknown HIVES Verified 03/17/22 07:12 Sulfa (Sulfonamide Allergy Unknown HIVES Verified 03/17/22 07:12 Antibiotics) [SULFA (SULFONAMIDE ANTIBIOTICS)] Review of Systems Review of Systems: Constitutional : No Weight loss, No Fever, No Chills, No Night Sweats, No Fatigue, No Malaise ENT/Mouth : No Hearing loss, No Ear Pain, No Nasal Congestion, No Sinus Pain, No Hoarseness, No sore throat, No Rhinorrhea, No Swallowing Difficulty Eyes: No Eye Pain, No Swelling, No Redness, No Foreign Body, No Discharge, No Vision Changes Cardiovascular : No Chest Pain, complaining of dyspnea on exertion , no orthopnea, complaining acute on chronic lower extremity edema Respiratory : No Cough, No Sputum, No Wheezing, No Smoke Exposure, complaining of Dyspnea Gastrointestinal : No Nausea, No Vomiting, No Diarrhea, No Constipation, No abdominal Pain, No Hematochezia, No Melena Genitourinary : no irregular bleeding, No Dysuria, No Urinary Frequency, No Hematuria, No Urinary Incontinence, No Urgency, No Flank Pain, No Urinary Flow Changes, No Hesitancy Musculoskeletal : No joint pain, No Myalgias, No Joint Swelling Skin : No Skin Lesions, No rash Neuro : No Weakness, No Numbness, No Paresthesias, No Loss of Consciousness, No Dizziness, No Headache Psych : No Anxiety/Panic, No Depression, No SI/HI/AH/VH, No Social Issues, Heme/Lymph: No Bruising, No Bleeding,No Lymphadenopathy Endocrine : No Polyuria, No Polydipsia, No Temperature Intolerance [facility] Past Medical History Medical History Acute on chronic systolic (congestive) heart failure Anxiety Ascending aorta dilatation Asthma Atherosclerotic cardiovascular disease Cardiomyopathy COPD (chronic obstructive pulmonary disease) COPD exacerbation GERD (gastroesophageal reflux disease) Heart failure with reduced ejection fraction Non-rheumatic aortic regurgitation Non-rheumatic aortic stenosis Non-rheumatic mitral regurgitation Osteoarthritis Thrombocytopenia Surgical History Hx of colonoscopy Hx of endoscopy Hx of hysterectomy Hx of oophorectomy Hx of total knee replacement Family History Family History Sister Lung cancer Lupus Sister Lung cancer Maternal Aunt Lupus Social History Social History Household Members: None Household Members Other:: lives alone Housing: Condominium Do you presently have visiting nurse or other home services: No Alcohol intake: current Alcohol intake frequency: 0-2 drinks per day Patient Tobacco Use Status: Former Tobacco user Quit Date: 19 YRS OLD Use of substances other than those prescribed or required for medical reasons: No Advance Directives: Yes Advance Directives Information Provided: No Advance Directives on File: No service: No ( career [employer]) Current occupational status: employed Physical Exam ED Vital Signs: Vital Signs - 24 hr 04/12/22 11:40 04/12/22 11:46 04/12/22 12:32 Temperature 99.0 F Pulse Rate 87 Respiratory Rate 20 Blood Pressure 118/47 L Pulse Oximetry 91 L 93 Oxygen Delivery Method Nasal Cannula Nasal Cannula Oxygen Flow Rate 04/12/22 12:32 Temperature 98.5 F Pulse Rate 96 Respiratory Rate 7 L Blood Pressure 119/55 L Pulse Oximetry 95 Oxygen Delivery Method Room Air Oxygen Flow Rate 2 BMI result Body Mass Index 38.4 Const Other: Appearance: Alert. Oriented X3. No acute distress. Seems slightly intoxicated but still able to have a normal conversation Eyes: Pupils equal, round and reactive to light. ENT: Pharynx normal. Neck: Normal inspection. Neck supple. No lymph nodes noted. No crepitus CVS: Normal heart rate and rhythm. Pulses normal. Normal S1 and S2 Respiratory: No respiratory distress. Bilateral crackles, oxygen saturation drops to 88% on room air, 93% on 2 L Abdomen: Soft and nontender. No rigidity. No distention. Skin: Skin warm and dry. Normal skin color. Normal skin turgor. Extremities: +2 pitting edema bilaterally, chronic venous stasis, No Lacerations. No Rash Neuro: Oriented X 3. No motor deficit. No sensory deficit. Moving all extremities. No slurred speech. CN 2 through 12 grossly intact Psych: calm, cooperative, normal affect Course Course Course Narrative: All of patient's labs and imaging are pending. Patient's white blood cell count within normal limits, hemoglobin at baseline, lactic acid 2.2, sepsis not suspected. D-dimer is negative. Likely secondary to several nebulization treatments. BNP 225, at baseline. Chest x-ray does not show acute pulmonary edema, no consolidations. Patient was ambulated in the emergency room, oxygen saturation remained above 96%, no dizziness, no shortness of breath, no chest pain. Patient complaining mostly of right knee pain, requesting narcotics. Patient was given Tylenol. Mentioned above, patient was given a prescription for oxycodone on 03/24/2030 tablets, patient already run out of them. Patient was offered case management and physical therapy evaluation. Patient declined. Medical Decision Making Lab Data Result diagrams: 04/12/22 12:24 04/12/22 12:24 Labs: Lab Results 04/12/22 04/12/22 04/12/22 Range/Units 12:09 12:11 12:24 WBC 5.5 (4.8-10.8) X10*3/uL RBC 3.38 L (4.20-5.50) X10*6/uL Hgb 9.9 L (12.0-16.0) g/dl Hct 32.1 L (37.0-47.0) % MCV 95.0 (80.0-98.0) fL MCH 29.3 (27.0-33.0) pg MCHC 30.8 L (31.0-35.0) g/dl RDW 15.4 (11.0-16.0) % Plt Count 57 L (160-400) X10*3/uL MPV Not Reportable Immature Gran % (Auto) 0.4 (0.0-0.4) % Neut % (Auto) 73.7 H (45-73) % Lymph % (Auto) 15.8 L (20-40) % [place] % (Auto) 6.0 (2-11) % Eos % (Auto) 3.6 (0-4) % Baso % (Auto) 0.5 (0-2) % Lymph # (Auto) 0.9 L (1.2-4.9) X10*3/uL [place] # (Auto) 0.3 (0.1-1.2) X10*3/uL Eos # (Auto) 0.2 (0.0-0.4) X10*3/uL Baso # (Auto) 0.0 (0.0-0.2) X10*3/uL Abs Immat Gran (auto) 0.02 (0.00-0.03) X10*3/uL Absolute Neuts (auto) 4.0 (2.0-8.3) x10*3/uL Absolute Nucleated RBC 0.000 (0.0-0.012) X10*3/uL Nucleated RBC % (auto) 0.0 (0.0-0.2) /100WBC PT (10.0-13.1) SEC INR (0.9-1.1) APTT (24.1-38.0) SEC D-Dimer High Sensitivty NG/ML VBG pH (7.32-7.43) VBG pCO2 mmHg VBG pO2 mmHg VBG HCO3 (22-26) mmol/L VBG O2 Saturation % VBG Base Excess mmol/L Sodium (135-145) mmol/L Potassium (3.3-5.1) mmol/L Chloride (96-108) mmol/L Carbon Dioxide (22-29) mmol/L Anion Gap (12-20) BUN (9-16) mg/dL Creatinine (0.5-1.4) mg/dL Estim Creat Clear Calc Estimated GFR Random Glucose (60-115) mg/dL Lactic Acid (0.5-2.0) mmol/L Lactic Acid F/U @ 2Hr (0.5-2.0) mmol/L Calcium (8.4-10.2) mg/dL Magnesium (1.6-2.6) mg/dL Total Bilirubin (0.0-1.0) mg/dL Direct Bilirubin (0.0-0.5) mg/dL AST (5-31) U/L ALT (0-31) U/L Alkaline Phosphatase (39-117) U/L Troponin I High Sens (<3.5-17.0) ng/L B-Natriuretic Peptide (<100) pg/mL Total Protein (6.5-8.0) g/dL Albumin (3.5-5.0) g/dL Urine Opiates Screen Not Detected (Not Detect) Urine Fentanyl Screen Not Detected (Not Detect) Ur Barbiturates Screen Not Detected (Not Detect) Ur Phencyclidine Scrn Not Detected (Not Detect) Ur Amphetamines Screen Not Detected (Not Detect) U Benzodiazepines Scrn POSITIVE H (Not Detect) Urine Cocaine Screen Not Detected (Not Detect) U Marijuana (THC) Screen Not Detected (Not Detect) Ethyl Alcohol mg/dL COVID-19 ([facility]) Negative (Negative) COVID-19 Clin Com See Note 04/12/22 04/12/22 04/12/22 Range/Units 12:24 12:24 12:24 WBC (4.8-10.8) X10*3/uL RBC (4.20-5.50) X10*6/uL Hgb (12.0-16.0) g/dl Hct (37.0-47.0) % MCV (80.0-98.0) fL MCH (27.0-33.0) pg MCHC (31.0-35.0) g/dl RDW (11.0-16.0) % Plt Count (160-400) X10*3/uL MPV Immature Gran % (Auto) (0.0-0.4) % Neut % (Auto) (45-73) % Lymph % (Auto) (20-40) % [place] % (Auto) (2-11) % Eos % (Auto) (0-4) % Baso % (Auto) (0-2) % Lymph # (Auto) (1.2-4.9) X10*3/uL [place] # (Auto) (0.1-1.2) X10*3/uL Eos # (Auto) (0.0-0.4) X10*3/uL Baso # (Auto) (0.0-0.2) X10*3/uL Abs Immat Gran (auto) (0.00-0.03) X10*3/uL Absolute Neuts (auto) (2.0-8.3) x10*3/uL Absolute Nucleated RBC (0.0-0.012) X10*3/uL Nucleated RBC % (auto) (0.0-0.2) /100WBC PT 11.9 (10.0-13.1) SEC INR 1.0 (0.9-1.1) APTT 28.5 (24.1-38.0) SEC D-Dimer High Sensitivty 202 NG/ML VBG pH (7.32-7.43) VBG pCO2 mmHg VBG pO2 mmHg VBG HCO3 (22-26) mmol/L VBG O2 Saturation % VBG Base Excess mmol/L Sodium 145 (135-145) mmol/L Potassium 4.2 (3.3-5.1) mmol/L Chloride 112 H (96-108) mmol/L Carbon Dioxide 26 (22-29) mmol/L Anion Gap 11 L (12-20) BUN 15 (9-16) mg/dL Creatinine 0.80 (0.5-1.4) mg/dL Estim Creat Clear Calc 63.3 Estimated GFR > 60 Random Glucose 112 (60-115) mg/dL Lactic Acid 2.2 H* (0.5-2.0) mmol/L Lactic Acid F/U @ 2Hr (0.5-2.0) mmol/L Calcium 8.6 (8.4-10.2) mg/dL Magnesium 1.9 (1.6-2.6) mg/dL Total Bilirubin 0.4 (0.0-1.0) mg/dL Direct Bilirubin 0.2 (0.0-0.5) mg/dL AST 18 (5-31) U/L ALT 11 (0-31) U/L Alkaline Phosphatase 56 D (39-117) U/L Troponin I High Sens (<3.5-17.0) ng/L B-Natriuretic Peptide (<100) pg/mL Total Protein 6.0 L (6.5-8.0) g/dL Albumin 4.1 (3.5-5.0) g/dL Urine Opiates Screen (Not Detect) Urine Fentanyl Screen (Not Detect) Ur Barbiturates Screen (Not Detect) Ur Phencyclidine Scrn (Not Detect) Ur Amphetamines Screen (Not Detect) U Benzodiazepines Scrn (Not Detect) Urine Cocaine Screen (Not Detect) U Marijuana (THC) Screen (Not Detect) Ethyl Alcohol 116 mg/dL COVID-19 ([facility]) (Negative) COVID-19 Clin Com 04/12/22 04/12/22 04/12/22 Range/Units 12:24 12:30 14:59 WBC (4.8-10.8) X10*3/uL RBC (4.20-5.50) X10*6/uL Hgb (12.0-16.0) g/dl Hct (37.0-47.0) % MCV (80.0-98.0) fL MCH (27.0-33.0) pg MCHC (31.0-35.0) g/dl RDW (11.0-16.0) % Plt Count (160-400) X10*3/uL MPV Immature Gran % (Auto) (0.0-0.4) % Neut % (Auto) (45-73) % Lymph % (Auto) (20-40) % [place] % (Auto) (2-11) % Eos % (Auto) (0-4) % Baso % (Auto) (0-2) % Lymph # (Auto) (1.2-4.9) X10*3/uL [place] # (Auto) (0.1-1.2) X10*3/uL Eos # (Auto) (0.0-0.4) X10*3/uL Baso # (Auto) (0.0-0.2) X10*3/uL Abs Immat Gran (auto) (0.00-0.03) X10*3/uL Absolute Neuts (auto) (2.0-8.3) x10*3/uL Absolute Nucleated RBC (0.0-0.012) X10*3/uL Nucleated RBC % (auto) (0.0-0.2) /100WBC PT (10.0-13.1) SEC INR (0.9-1.1) APTT (24.1-38.0) SEC D-Dimer High Sensitivty NG/ML VBG pH 7.46 H (7.32-7.43) VBG pCO2 28 mmHg VBG pO2 81 mmHg VBG HCO3 20 L (22-26) mmol/L VBG O2 Saturation 98.0 % VBG Base Excess -2.4 mmol/L Sodium (135-145) mmol/L Potassium (3.3-5.1) mmol/L Chloride (96-108) mmol/L Carbon Dioxide (22-29) mmol/L Anion Gap (12-20) BUN (9-16) mg/dL Creatinine (0.5-1.4) mg/dL Estim Creat Clear Calc Estimated GFR Random Glucose (60-115) mg/dL Lactic Acid (0.5-2.0) mmol/L Lactic Acid F/U @ 2Hr 1.9 (0.5-2.0) mmol/L Calcium (8.4-10.2) mg/dL Magnesium (1.6-2.6) mg/dL Total Bilirubin (0.0-1.0) mg/dL Direct Bilirubin (0.0-0.5) mg/dL AST (5-31) U/L ALT (0-31) U/L Alkaline Phosphatase (39-117) U/L Troponin I High Sens 7.3 D (<3.5-17.0) ng/L B-Natriuretic Peptide 225 H (<100) pg/mL Total Protein (6.5-8.0) g/dL Albumin (3.5-5.0) g/dL Urine Opiates Screen (Not Detect) Urine Fentanyl Screen (Not Detect) Ur Barbiturates Screen (Not Detect) Ur Phencyclidine Scrn (Not Detect) Ur Amphetamines Screen (Not Detect) U Benzodiazepines Scrn (Not Detect) Urine Cocaine Screen (Not Detect) U Marijuana (THC) Screen (Not Detect) Ethyl Alcohol mg/dL COVID-19 ([facility]) (Negative) COVID-19 Clin Com Discharge Plan Discharge Clinical Impression: Acute dyspnea Patient Disposition: Home, Self-Care Instructions: Dyspnea (ED) Additional Instructions: Please follow-up with your primary care physician tomorrow. If you have any worsening or new symptoms, please return to the emergency room or call 911 Prescriptions: No Action bupropion HCl 150 mg tablet sustained-release 12 hr 1 tab PO BID aspirin 81 mg Tablet,Delayed Release (Dr/Ec) 81 mg PO DAILY alprazolam 0.5 mg tablet 1 tab PO TID PRN (Reason: Anxiety) hydrocodone-acetaminophen 7.5-325 mg tablet 1 tab PO TID PRN (Reason: Pain) diclofenac sodium 75 mg tablet,delayed release (DR/EC) 1 tab PO BID albuterol sulfate [ProAir HFA] 90 mcg/actuation HFA aerosol inhaler 90 inh inhalation Q4H PRN (Reason: Wheezing) ondansetron HCl [Zofran] 4 mg Tablet 4 mg PO BID PRN (Reason: Nausea) Qty: 60 0RF biotin 500 mcg Capsule 1 mg PO DAILY cholecalciferol (vitamin D3) [Vitamin D3] 25 mcg (1,000 unit) Capsule 1,000 unit PO DAILY metoprolol succinate [Toprol XL] 25 mg tablet extended release 24 hr 12.5 mg PO DAILY Qty: 30 0RF albuterol sulfate 2.5 mg /3 mL (0.083 %) solution for nebulization 2.5 mg inhalation Q4H PRN (Reason: Wheezing) cimetidine 400 mg tablet 1 tab PO DAILY PRN (Reason: Acid Reflux) fluticasone propionate 50 mcg/actuation spray,suspension 1 spray intranasal DAILY vitamin A 2,400 mcg Capsule 2,400 mcg PO DAILY cyanocobalamin (vitamin B-12) 1,000 mcg Tablet 1,000 mcg PO DAILY doxycycline hyclate 100 mg tablet 100 mg PO BID Qty: 10 0RF
[2022-04-12 12:32] VITALS: BP 119/55; PULSE 96; RESP 7; TEMP 36.9; O2SAT 93; O2SAT 95
[2022-04-12 12:38] LABS: Basophils Percent Auto 0.5 % (0-2); Hematocrit 32.1 % (37.0-47.0); Hemoglobin 9.9 g/dl (12.0-16.0); Imm Gran Abs Auto 0.02 X10*3/uL (0.00-0.03); Imm Gran Pct Auto 0.4 % (0.0-0.4); Lymphocytes Absolute Auto 0.9 X10*3/uL (1.2-4.9); Mean Corpuscular HGB Conc 30.8 g/dl (31.0-35.0); Mean Corpuscular Hemoglobin 29.3 pg (27.0-33.0); Red Blood Count 3.38 X10*6/uL (4.20-5.50); SCAN SMEAR FLAG 1
[2022-04-12 12:39] LABS: Eosinophils Absolute Auto 0.2 X10*3/uL (0.0-0.4); Eosinophils Percent Auto 3.6 % (0-4); Lymphocytes Percent Auto 15.8 % (20-40); Monocytes Absolute Auto 0.3 X10*3/uL (0.1-1.2); Neutrophils Percent Auto 73.7 % (45-73); Red Cell Distribution Width 15.4 % (11.0-16.0); White Blood Count 5.5 X10*3/uL (4.8-10.8)
[2022-04-12 12:44] LABS: PLT ABN DIST 1; Platelet Count 57 X10*3/uL (160-400); Prothrombin Time 11.9 SEC (10.0-13.1)
[2022-04-12 12:45] LABS: MANUAL DIFF FLAG NO
[2022-04-12 12:46] LABS: Partial Thromboplastin Time 28.5 SEC (24.1-38.0)
[2022-04-12 12:53] LABS: COVID-19 Test Negative (Negative); IDNOW Serial# 9DB6401D
[2022-04-12 12:54] LABS: Lactic Acid 2.2 mmol/L (0.5-2.0)
[2022-04-12 12:55] LABS: Amphetamine Screen Urine Not Detected (Not Detect); Barbiturates, Urine Not Detected (Not Detect); Benzodiazepines Screen Urine POSITIVE (Not Detect); Cannabinoid Screen Urine Not Detected (Not Detect); Cocaine Screen Urine Not Detected (Not Detect); Fentanyl, urine Not Detected (Not Detect); Opiate Screen Urine Not Detected (Not Detect); Phencyclidine Screen Urine Not Detected (Not Detect)
[2022-04-12 12:56] LABS: Alanine Aminotransferase 11 U/L (0-31); Albumin Level 4.1 g/dL (3.5-5.0); Alkaline Phosphatase 56 U/L (39-117); Anion Gap 11 (12-20); Aspartate Amino Transferase 18 U/L (5-31); Bilirubin Direct 0.2 mg/dL (0.0-0.5); Bilirubin Total 0.4 mg/dL (0.0-1.0); Blood Urea Nitrogen 15 mg/dL (9-16); Calcium 8.6 mg/dL (8.4-10.2); Carbon Dioxide 26 mmol/L (22-29); Chloride 112 mmol/L (96-108); Creatinine Clr Calc Pharmacy 63.3; Estimated Glomerular Filt Rate > 60; Ethanol 116 mg/dL; Glucose Random 112 mg/dL (60-115); Magnesium 1.9 mg/dL (1.6-2.6); Potassium 4.2 mmol/L (3.3-5.1); Sodium 145 mmol/L (135-145)
[2022-04-12 13:02] LABS: B Type Natriuretic Peptide 225 pg/mL (<100); Troponin-I High Sensitivity 7.3 ng/L (<3.5-17.0)
[2022-04-12] MEDS: Acetaminophen 325 MG TABLET 975 MG PO (13:11)
[2022-04-12 14:04] LABS: Venous Blood Gas Refer to POC result
[2022-04-12 14:05] LABS: VBG Base Excess -2.4 mmol/L; VBG HCO3 20 mmol/L (22-26); VBG pCO2 28 mmHg; VBG pH 7.46 (7.32-7.43); VBG pO2 81 mmHg
[2022-04-12 14:23] LABS: D Dimer High Sensitivity 202 NG/ML
--- NOTE | 2022-04-12 14:24 | ECG_ITS ---
Test Reason : SOB Blood Pressure : / mmHG Vent. Rate : 075 BPM Atrial Rate : 075 BPM P-R Int : 154 ms QRS Dur : 090 ms QT Int : 406 ms P-R-T Axes : 061 -36 073 degrees QTc Int : 453 ms Normal sinus rhythm Left axis deviation Left ventricular hypertrophy with repolarization abnormality ( Sokolow-Grant , Romhilt-Hwang ) Inferior infarct (cited on or before 27-JAN-2022) Abnormal ECG When compared with ECG of 12-APR-2022 11:42, due to artifact in prior EKG, cannot compare Referred By: Anne Aldridge Electronically Signed By:TEDDY MOTLEY
[2022-04-12 14:33] LABS: Reflex Lactate? Lactic Acid Added
[2022-04-12 15:32] LABS: ~Lactic Acid-LAB USE ONLY 1.9 mmol/L (0.5-2.0)
[2022-04-12 15:58] VITALS: BP 131/57; PULSE 97; RESP 17; O2SAT 95
== END 2022-04-12 17:19 | disposition home or self-care (01) ==
PROVIDERS: Emergency Provider Emergency Medicine; PCP Internal Medicine Geriatric Medicine
DX: R06.00 Dyspnea, unspecified (principal); R60.0 Localized edema; Z20.822 Contact with and (suspected) exposure to COVID-19; I50.23 Acute on chronic systolic (congestive) heart failure; F41.9 Anxiety disorder, unspecified; Z87.891 Personal history of nicotine dependence; Z79.899 Other long term (current) drug therapy; Z79.82 Long term (current) use of aspirin
CPT/HCPCS: 36415; 71045; 80048; 80076; 80307; 82077; 82803; 83605; 83735; 83880; 84484; 85025; 85379; 85610; 85730; 87040; 87635; 93005; 99283; 99285

== ENCOUNTER → 2022-05-17 14:42 | Outpatient (BNVA) | payer OTHER, SELFPAY | PROVIDERS: PCP Internal Medicine Geriatric Medicine; Referring Provider Internal Medicine Geriatric Medicine; Visit Provider Internal Medicine Cardiovascular Disease | DX: I50.23 Acute on chronic systolic (congestive) heart failure (principal); I20.9 Angina pectoris, unspecified | CPT/HCPCS: 99212 ==

== ENCOUNTER 2022-05-30 15:49 | Outpatient (REF) | payer OTHER, SELFPAY ==
[2022-05-30 17:08] LABS: Hemoglobin 8.4 g/dl (12.0-16.0); Mean Corpuscular Volume 93.3 fL (80.0-98.0); Red Cell Distribution Width 14.2 % (11.0-16.0); White Blood Count 6.3 X10*3/uL (4.8-10.8)
[2022-05-30 17:11] LABS: INTERNATIONAL NORM RATIO 1.1 (0.9-1.1); PLT ABN DIST 1; Platelet Count 69 X10*3/uL (160-400)
[2022-05-30 17:34] LABS: Anion Gap 14 (12-20); Blood Urea Nitrogen 25 mg/dL (9-16); Calcium 8.7 mg/dL (8.4-10.2); Carbon Dioxide 27 mmol/L (22-29); Chloride 107 mmol/L (96-108); Estimated Glomerular Filt Rate 58; Glucose Random 96 mg/dL (60-115); Potassium 4.7 mmol/L (3.3-5.1); Sodium 143 mmol/L (135-145)
== END 2022-05-30 15:50 | disposition home or self-care (01) ==
LOC: HO.LAB 15:49
PROVIDERS: PCP Internal Medicine Geriatric Medicine; Visit Provider Internal Medicine Cardiovascular Disease
DX: I25.5 Ischemic cardiomyopathy (principal)
CPT/HCPCS: 36415; 80048; 85027; 85610

== ENCOUNTER 2022-08-08 13:05 | Outpatient (REF) | payer OTHER, SELFPAY ==
[2022-08-08 13:53] LABS: Hemoglobin 8.3 g/dl (12.0-16.0); Red Cell Distribution Width 15.9 % (11.0-16.0)
[2022-08-08 13:55] LABS: Basophils Absolute Auto 0.1 X10*3/uL (0.0-0.2); Basophils Percent Auto 0.7 % (0-2); Eosinophils Absolute Auto 0.2 X10*3/uL (0.0-0.4); Eosinophils Percent Auto 2.3 % (0-4); Hematocrit 28.8 % (37.0-47.0); Imm Gran Abs Auto 0.02 X10*3/uL (0.00-0.03); Imm Gran Pct Auto 0.2 % (0.0-0.4); Lymphocytes Percent Auto 12.5 % (20-40); Mean Corpuscular HGB Conc 28.8 g/dl (31.0-35.0); Mean Corpuscular Hemoglobin 25.8 pg (27.0-33.0); Mean Corpuscular Volume 89.4 fL (80.0-98.0); Monocytes Absolute Auto 0.7 X10*3/uL (0.1-1.2); Monocytes Percent Auto 8.4 % (2-11); Neutrophils Absolute Auto 6.3 x10*3/uL (2.0-8.3); Neutrophils Percent Auto 75.9 % (45-73); Red Blood Count 3.22 X10*6/uL (4.20-5.50); White Blood Count 8.3 X10*3/uL (4.8-10.8)
[2022-08-08 13:57] LABS: Platelet Count 78 X10*3/uL (160-400)
== END 2022-08-08 13:06 | disposition home or self-care (01) ==
LOC: HO.LAB 13:05
PROVIDERS: PCP Internal Medicine Geriatric Medicine; Visit Provider Internal Medicine Geriatric Medicine
DX: D64.9 Anemia, unspecified (principal)
CPT/HCPCS: 36415; 85025

== ENCOUNTER 2022-10-12 15:59 | Observation (INO) | payer OTHER, SELFPAY ==
[2022-10-12] VITALS (9 sets, daily range): BP systolic 95–142; BP diastolic 48–68; PULSE 81–113; RESP 15–18; TEMP 36.7–37.2; O2SAT 94–100; BMI 34.6
--- NOTE | ~2022-10-12 | CT_ITS ---
EXAMINATION: CT ABDOMEN AND PELVIS WITH CONTRAST CLINICAL INFORMATION: Rectal bleeding COMPARISON: CT abdomen pelvis 01/27/2022 TECHNIQUE: Multidetector volumetric images were obtained from the superior aspect of the liver through the pubic symphysis following administration 85 mL of Omnipaque 350 intravenous contrast. Sagittal and coronal reformatted images were obtained on the technologist's workstation. Oral contrast: No This CT examination was performed using dose optimization techniques as appropriate, variously including the following: *Automated exposure control *Adjustment of mA and/or kV according to patient size (this includes techniques or standardized protocols for targeted exams where dose is matched to indication/reason for exam; i.e. extremities or head) *Use of iterative reconstruction technique DLP: 1091 mGy-cm FINDINGS: LUNG BASES: Mild bibasilar subsegmental atelectasis. LIVER, GALLBLADDER, AND BILIARY TREE: Right liver lobe is enlarged measuring 19.6 cm in craniocaudal extent. Normal hepatic attenuation. No morphologic features of cirrhosis. No liver lesion or biliary ductal dilation. Few tiny calcified dependent gallstones present in the gallbladder. Gallbladder otherwise unremarkable. No gallbladder wall thickening or surrounding inflammatory change. PANCREAS: There are a few punctate parenchymal calcifications in the pancreatic head. No pancreatic lesion or ductal dilation. No peripancreatic inflammatory change. SPLEEN: 1.1 cm left adrenal nodule, unchanged. Findings compatible with a lipid rich adenoma on comparison noncontrast CT 01/27/2022 with attenuation values of 5 Hounsfield units on that exam. Normal right adrenal gland. ADRENAL GLANDS: Unremarkable. KIDNEYS AND URETERS: The nephrograms are symmetric. There are multiple bilateral parapelvic renal cysts. No hydronephrosis. No renal calculi. Few small benign/simple appearing left renal cysts are noted, largest 1.4 cm in size. No imaging follow-up recommended. No perinephric stranding or collections. BLADDER: Unremarkable. GASTROINTESTINAL TRACT: No dilated bowel loops or bowel wall thickening. Sigmoid diverticulosis. No evidence of acute diverticulitis. The appendix is not visualized. No inflammatory change at the cecal base. No free air or ascites. ABDOMINAL WALL: No significant hernia is appreciated. LYMPH NODES: No lymphadenopathy. VASCULAR: No abdominal aortic aneurysm. Moderate vascular calcifications. PELVIC VISCERA: Status post hysterectomy. OSSEOUS STRUCTURES: No acute fracture or suspicious osseous lesion. Grade 1 anterolisthesis at L4-L5. Advanced multilevel degenerative disc disease in the lumbar spine. Sacralized L5 vertebra. Advanced right hip joint osteoarthritis. CT/CT abdomen pelvis w IV con IMPRESSION: 1. Sigmoid diverticulosis. No evidence of acute diverticulitis or other acute intra-abdominal process. 2. Cholelithiasis. 3. Mild hepatomegaly. 4. Additional chronic findings, as described. Fleischner guidelines were followed.
--- NOTE | 2022-10-12 16:16 | ECG_ITS ---
Test Reason : ABDOMINAL PAIN Blood Pressure : / mmHG Vent. 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
[2022-10-12 17:17] LABS: Red Cell Distribution Width 17.9 % (11.0-16.0); SCAN SMEAR FLAG 1
[2022-10-12 17:19] LABS: Basophils Percent Auto 0.5 % (0-2); Eosinophils Absolute Auto 0.1 X10*3/uL (0.0-0.4); Eosinophils Percent Auto 1.8 % (0-4); Imm Gran Abs Auto 0.01 X10*3/uL (0.00-0.03); Imm Gran Pct Auto 0.2 % (0.0-0.4); Lymphocytes Absolute Auto 1.1 X10*3/uL (1.2-4.9); MANUAL DIFF FLAG SCAN; Mean Corpuscular HGB Conc 25.9 g/dl (31.0-35.0); Mean Corpuscular Hemoglobin 19.8 pg (27.0-33.0); Mean Corpuscular Volume 76.4 fL (80.0-98.0); Monocytes Absolute Auto 0.5 X10*3/uL (0.1-1.2); Monocytes Percent Auto 9.9 % (2-11); Neutrophils Absolute Auto 3.7 x10*3/uL (2.0-8.3); Neutrophils Percent Auto 67.6 % (45-73); PLT CLUMP 1; Red Blood Count 2.42 X10*6/uL (4.20-5.50)
[2022-10-12 17:28] LABS: Hematocrit 18.5 % (37.0-47.0); PLT ABN DIST 1
[2022-10-12 17:35] LABS: White Blood Count 5.5 X10*3/uL (4.8-10.8)
[2022-10-12 17:38] LABS: Hemoglobin 4.8 g/dl (12.0-16.0); Platelet Count 54 X10*3/uL (160-400)
[2022-10-12 17:40] LABS: Alanine Aminotransferase 9 U/L (0-31); Albumin Level 3.8 g/dL (3.5-5.0); Alkaline Phosphatase 48 U/L (39-117); Anion Gap 14 (12-20); Aspartate Amino Transferase 26 U/L (5-31); Bilirubin Total 0.2 mg/dL (0.0-1.0); Blood Urea Nitrogen 28 mg/dL (9-16); Calcium 8.5 mg/dL (8.4-10.2); Carbon Dioxide 23 mmol/L (22-29); Chloride 112 mmol/L (96-108); Creatinine Clr Calc Pharmacy 51.8; Estimated Glomerular Filt Rate 56; Glucose Random 111 mg/dL (60-115); Potassium 4.2 mmol/L (3.3-5.1); Sodium 145 mmol/L (135-145); Total Protein 5.7 g/dL (6.5-8.0)
--- NOTE | 2022-10-12 17:50 | ED_ITS ---
HPI - Recheck/Abnormal Lab/Rx General Chief Complaint: Recheck/Abnormal Lab/Rx Stated Complaint: abnormal labs Time Seen by Provider: 10/12/22 16:11 Source: patient and EMS Mode of arrival: EMS Limitations: other (Poor historian) History of Present Illness HPI narrative: 76 year old female hx of chronic ITP, ischemic cardiomyopathy, anxiety, GERD, chronic HFrEF, COPD/chronic bronchitis/asthma presenting to the ED w/ fatigue, malaise, low blood pressures at home an abnormal labs. According to patient she had outpatient labs done about a week ago which resulted today and showed her hemoglobin is 5.8. She tells me that she has been anemic in the past but they do not know why. Patient also reports intermittent lightheadedness and palpitation. Denies chest pain, shortness of breath, palpitations, headache, vision changes, nausea, vomiting, hematemesis, hematuria, hematochezia. Related Data Home Medications Medication Instructions Recorded Confirmed albuterol sulfate 90 mcg/actuation 90 inh inhalation Q4H PRN Wheezing 12/07/20 10/12/22 aerosol inhaler (ProAir HFA) alprazolam 0.5 mg tablet 1 tab PO TID PRN Anxiety 12/07/20 10/12/22 bupropion HCl 150 mg tablet,12 hr 1 tab PO BID 12/07/20 10/12/22 sustained-release hydrocodone 7.5 mg-acetaminophen 1 tab PO TID PRN Pain 12/07/20 10/12/22 325 mg tablet biotin 500 mcg capsule 1 mg PO DAILY 02/07/21 10/12/22 cholecalciferol (vitamin D3) 25 1,000 unit PO DAILY 02/07/21 10/12/22 mcg (1,000 unit) capsule (Vitamin D3) albuterol sulfate 2.5 mg/3 mL 2.5 mg inhalation Q4H PRN Wheezing 01/27/22 10/12/22 (0.083 %) solution for nebulization cimetidine 400 mg tablet 1 tab PO DAILY PRN Acid Reflux 01/27/22 10/12/22 cyanocobalamin (vitamin B-12) 1,000 mcg PO DAILY 01/27/22 10/12/22 1,000 mcg tablet fluticasone propionate 50 1 spray intranasal DAILY 01/27/22 10/12/22 mcg/actuation nasal spray,suspension vitamin A 2,400 mcg capsule 2,400 mcg PO DAILY 01/27/22 10/12/22 metoprolol succinate 25 mg 25 mg PO DAILY 05/17/22 10/12/22 tablet,extended release 24 hr (Toprol XL) aspirin 81 mg tablet,delayed 81 mg PO DAILY 10/12/22 10/12/22 release Previous Rx's Medication Instructions Recorded ondansetron HCl 4 mg tablet 4 mg PO BID PRN Nausea #60 tabs 12/08/20 (Zofran) Allergies Allergy/AdvReac Type Severity Reaction Status Date / Time amoxicillin Allergy Unknown Hives Verified 03/17/22 07:12 penicillin V Allergy Unknown Hives Verified 03/17/22 07:12 Penicillins [PENICILLINS] Allergy Unknown HIVES Verified 03/17/22 07:12 Sulfa (Sulfonamide Allergy Unknown HIVES Verified 03/17/22 07:12 Antibiotics) [SULFA (SULFONAMIDE ANTIBIOTICS)] Review of Systems Review of Systems: Constitutional : No Weight loss, No Fever, No Chills, + Fatigue, + Malaise ENT/Mouth : No sore throat, No Rhinorrhea Eyes: No Eye Pain, No Swelling, No Redness Cardiovascular : No Chest Pain, No SOB, No Dyspnea on Exertion, No Orthopnea, No Edema, + Palpitations Respiratory : No Cough, No Sputum, No Wheezing Gastrointestinal : No Nausea, No Vomiting, No Diarrhea, No Constipation, No abdominal Pain, No Hematochezia, No Melena Genitourinary : No Dysuria, No Urinary Frequency, No Hematuria, Musculoskeletal : No joint pain, No Myalgias, No Joint Swelling Skin : No Skin Lesions, No rash Neuro : No Weakness, No Numbness, + Dizziness, No Headache Psych : No Anxiety/Panic, No Depression All other systems reviewed and are negative Yes all other systems are reviewed and are negative [facility] Past Medical History Attestation statement: The following information was validated with the patient. Source: old records reviewed and nursing notes reviewed Medical History Acute on chronic systolic (congestive) heart failure Anxiety Ascending aorta dilatation Asthma Atherosclerotic cardiovascular disease Cardiomyopathy COPD (chronic obstructive pulmonary disease) COPD exacerbation GERD (gastroesophageal reflux disease) Heart failure with reduced ejection fraction Non-rheumatic aortic regurgitation Non-rheumatic aortic stenosis Non-rheumatic mitral regurgitation Osteoarthritis Thrombocytopenia Surgical History Hx of colonoscopy Hx of endoscopy Hx of hysterectomy Hx of oophorectomy Hx of total knee replacement Family History Family History Sister Lung cancer Lupus Sister Lung cancer Maternal Aunt Lupus Social History Social History Household Members: None Household Members Other:: lives alone Housing: [facility] Do you presently have visiting nurse or other home services: No Alcohol intake: current Alcohol intake frequency: 0-2 drinks per day Patient Tobacco Use Status: Former Tobacco user Quit Date: 19 YRS OLD Advance Directives: No Advance Directives Information Provided: No service: No ( career [employer]) Current occupational status: employed Physical Exam Vital Signs: Vital Signs: Last Vital Signs Temp 98.4 F 10/12/22 16:35 Pulse 93 10/12/22 18:26 Resp 18 10/12/22 18:26 BP 127/49 L 10/12/22 16:35 Pulse Ox 99 10/12/22 16:35 O2 Del Method 10/12/22 16:35 BMI result Body Mass Index 34.6 vss Appearance: Alert.? Oriented X3.? No acute distress.? Head: Normocephalic, atraumatic, no step-offs or deformities Eyes: Pupils equal, round and reactive to light.? Pale conjunctiva ENT: Pharynx normal.? Neck: Normal inspection.? Neck supple.? CVS: Normal heart rate and rhythm.? Pulses normal.? Respiratory: No respiratory distress.? Breath sounds diminished bilaterally.? Abdomen: Soft and nontender.? Skin: Skin warm and dry.? Pale skin color.? Normal skin turgor.? Extremities: No lower extremity edema.? No calf ttp. 5/5 strength to bilateral upper and lower extremities Rectal: patient adamantly refusing Neuro: Oriented X 3.? No motor deficit.? No sensory deficit. CN 2-12 intact NIH stroke scale 0. Course Reevaluation(s) Reevaluation #1: This PCP spoke to patients PCP Dr. Magana, Who reports patient reported she was feeling weak, tired, and was having low BPs at home per patient PCP ordered out patient labs which showed a Hgb of 5.8 was encouraged to come in to be evaluated. CBC with a microcytic anemia likely secondary to acute blood loss from lower GI bleed based off patient's history. Patient is noted to have a hemoglobin of 4.8, hematocrit of 18.5, platelet count 54 patient does have ITP and appears to be around her baseline . Chemistry with no acute electrolyte abnormalities requiring emergent intervention. Will transfuse with 2 units of packed red blood cells, no need for platelet at this time. Time: 19:38 Reevaluation #2: Discussed case with hospitalist to admit for symptomatic anemia. Time: 19:40 Medications Administered Discontinued Medications Generic Name Dose Route Start Last Admin Trade Name Freq PRN Reason Stop Dose Admin Albuterol Sulfate 10 mg 10/12/22 17:55 10/12/22 18:26 Albuterol Sulfate 2.5 Mg/0.5 Ml Vial.Neb INHALE 10/12/22 17:56 10 mg ONCE ONE Administration Iohexol 100 ml 10/12/22 18:16 10/12/22 18:16 Iohexol 350 Mg/Ml 100 Ml Infus..Btl IV 10/12/22 18:17 85 ml ONCE ONE Administration Medical Decision Making Medical Decision Making [facility] Narrative: 1420 76-year-old female presents for evaluation of abnormal labs per her primary care provider. Physical exam significant for diminished breath sounds bilaterally, patient is noted to be pale and has pale conjunctiva. Global weakness noted. Concerns for acute blood loss anemia likely secondary to lower GI bleed. Other differentials include erosive gastritis, gastric ulcer. Unlikely upper GI bleed, stroke, posterior stroke. Will also rule out other electrolyte abnormalities. Plan at this time is to obtain basic labs, OBS, CT of the abdomen and pelvis. Upon chart review it appears as though patient was hospitalized here from January 27 to February 01 for anemia, she had a total of 3 units of packed red blood cells transfused. She also had an EGD and colonoscopy done on 01/31/2022. EGD demonstrated esophagitis and mild gastritis with multiple chronic an antral erosions. Colonoscopy did not show any acute findings. Patient was scheduled for an outpatient capsule endoscopy, a capsule endoscopy was done on 03/03/2022, which showed a normal esophagus, stomach mucosa with patchy gastritis, and duodenitis. Differential Diagnosis Differential Diagnoses: The differential diagnosis associated with the presentation includes Concerns for acute blood loss anemia likely secondary to lower GI bleed. Other differentials include erosive gastritis, gastric ulcer. Unlikely upper GI bleed, stroke, posterior stroke. Will also rule out other electrolyte abnormalities. Admission/Observation Consideration of admission/observation: Escalation of care including admission/observation considered Likely will require hospital admission Consult Healthcare Provider Management of the patient was discussed with: Primary Care Provider (Spoke to patient's primary care provider) Lab Data MDM Lab Attestation statement: I reviewed the patient's lab results. 10/12/22 16:50 10/12/22 16:50 Labs: Lab Results 10/12/22 10/12/22 10/12/22 Range/Units 16:50 16:50 16:50 WBC 5.5 (4.8-10.8) X10*3/uL RBC 2.42 L D (4.20-5.50) X10*6/uL Hgb 4.8 L* D (12.0-16.0) g/dl Hct 18.5 L* D (37.0-47.0) % MCV 76.4 L (80.0-98.0) fL MCH 19.8 L (27.0-33.0) pg MCHC 25.9 L (31.0-35.0) g/dl RDW 17.9 H (11.0-16.0) % Plt Count 54 L D (160-400) X10*3/uL MPV Not Reportable Immature Gran % (Auto) 0.2 (0.0-0.4) % Neut % (Auto) 67.6 (45-73) % Lymph % (Auto) 20.0 (20-40) % Marin % (Auto) 9.9 (2-11) % Eos % (Auto) 1.8 (0-4) % Baso % (Auto) 0.5 (0-2) % Lymph # (Auto) 1.1 L (1.2-4.9) X10*3/uL Marin # (Auto) 0.5 (0.1-1.2) X10*3/uL Eos # (Auto) 0.1 (0.0-0.4) X10*3/uL Baso # (Auto) 0.0 (0.0-0.2) X10*3/uL Abs Immat Gran (auto) 0.01 (0.00-0.03) X10*3/uL Absolute Neuts (auto) 3.7 (2.0-8.3) x10*3/uL Absolute Nucleated RBC 0.000 (0.0-0.012) X10*3/uL Nucleated RBC % (auto) 0.0 (0.0-0.2) /100WBC Smear Tech's Comments VERIFIED Sodium 145 (135-145) mmol/L Potassium 4.2 (3.3-5.1) mmol/L Chloride 112 H (96-108) mmol/L Carbon Dioxide 23 (22-29) mmol/L Anion Gap 14 (12-20) BUN 28 H (9-16) mg/dL Creatinine 0.96 (0.5-1.4) mg/dL Estim Creat Clear Calc 51.8 Estimated GFR 56 Random Glucose 111 (60-115) mg/dL Calcium 8.5 (8.4-10.2) mg/dL Magnesium 2.0 (1.6-2.6) mg/dL Total Bilirubin 0.2 (0.0-1.0) mg/dL AST 26 (5-31) U/L ALT 9 (0-31) U/L Alkaline Phosphatase 48 (39-117) U/L B-Natriuretic Peptide 135 H (<100) pg/mL Total Protein 5.7 L (6.5-8.0) g/dL Albumin 3.8 (3.5-5.0) g/dL Crossmatch 10/12/22 Range/Units 19:09 WBC (4.8-10.8) X10*3/uL RBC (4.20-5.50) X10*6/uL Hgb (12.0-16.0) g/dl Hct (37.0-47.0) % MCV (80.0-98.0) fL MCH (27.0-33.0) pg MCHC (31.0-35.0) g/dl RDW (11.0-16.0) % Plt Count (160-400) X10*3/uL MPV Immature Gran % (Auto) (0.0-0.4) % Neut % (Auto) (45-73) % Lymph % (Auto) (20-40) % Marin % (Auto) (2-11) % Eos % (Auto) (0-4) % Baso % (Auto) (0-2) % Lymph # (Auto) (1.2-4.9) X10*3/uL Marin # (Auto) (0.1-1.2) X10*3/uL Eos # (Auto) (0.0-0.4) X10*3/uL Baso # (Auto) (0.0-0.2) X10*3/uL Abs Immat Gran (auto) (0.00-0.03) X10*3/uL Absolute Neuts (auto) (2.0-8.3) x10*3/uL Absolute Nucleated RBC (0.0-0.012) X10*3/uL Nucleated RBC % (auto) (0.0-0.2) /100WBC Smear Tech's Comments Sodium (135-145) mmol/L Potassium (3.3-5.1) mmol/L Chloride (96-108) mmol/L Carbon Dioxide (22-29) mmol/L Anion Gap (12-20) BUN (9-16) mg/dL Creatinine (0.5-1.4) mg/dL Estim Creat Clear Calc Estimated GFR Random Glucose (60-115) mg/dL Calcium (8.4-10.2) mg/dL Magnesium (1.6-2.6) mg/dL Total Bilirubin (0.0-1.0) mg/dL AST (5-31) U/L ALT (0-31) U/L Alkaline Phosphatase (39-117) U/L B-Natriuretic Peptide (<100) pg/mL Total Protein (6.5-8.0) g/dL Albumin (3.5-5.0) g/dL Crossmatch See Detail Core Measures AMI core measures followed: Yes Measure exclusions: not indicated Critical Care Time Critical Care Time Critical Care Time: Yes Total Critical Care Time: 35 Attestation: I attest to this time spent taking care of the patient, obtaining history, phys ical, reviewing labs, imaging, speaking to my attending, speaking to specialist. Discharge Plan Discharge Clinical Impression: Symptomatic anemia Patient Disposition: Still a Patient Prescriptions: No Action bupropion HCl 150 mg tablet sustained-release 12 hr 1 tab PO BID alprazolam 0.5 mg tablet 1 tab PO TID PRN (Reason: Anxiety) hydrocodone-acetaminophen 7.5-325 mg tablet 1 tab PO TID PRN (Reason: Pain) albuterol sulfate [ProAir HFA] 90 mcg/actuation HFA aerosol inhaler 90 inh inhalation Q4H PRN (Reason: Wheezing) ondansetron HCl [Zofran] 4 mg Tablet 4 mg PO BID PRN (Reason: Nausea) Qty: 60 0RF biotin 500 mcg Capsule 1 mg PO DAILY cholecalciferol (vitamin D3) [Vitamin D3] 25 mcg (1,000 unit) Capsule 1,000 unit PO DAILY albuterol sulfate 2.5 mg /3 mL (0.083 %) solution for nebulization 2.5 mg inhalation Q4H PRN (Reason: Wheezing) cimetidine 400 mg tablet 1 tab PO DAILY PRN (Reason: Acid Reflux) fluticasone propionate 50 mcg/actuation spray,suspension 1 spray intranasal DAILY vitamin A 2,400 mcg Capsule 2,400 mcg PO DAILY cyanocobalamin (vitamin B-12) 1,000 mcg Tablet 1,000 mcg PO DAILY aspirin 81 mg Tablet,Delayed Release (Dr/Ec) 81 mg PO DAILY metoprolol succinate [Toprol XL] 25 mg tablet extended release 24 hr 25 mg PO DAILY
[2022-10-12 17:59] LABS: SLIDE REVIEW VERIFIED
[2022-10-12] MEDS: iohexoL 350 MG/ML 100 ML INFUS..BTL IV (18:16)
[2022-10-12] MEDS: Albuterol Sulfate 2.5 MG/0.5 ML VIAL.NEB 10 MG INHALE (18:26)
[2022-10-12 18:39] LABS: B Type Natriuretic Peptide 135 pg/mL (<100)
--- NOTE | 2022-10-12 20:31 | P.HPHOSP_ITS ---
History of Present Illness Date of Service: 10/12/22 <SHAYLEE Camarillo - Last Filed: 10/12/22 22:13> Attending physician on admission: Sona Barcenas <SHAYLEE Camarillo - Last Filed: 10/12/22 22:13> Chief Complaint: Fatigue, low BP <SHAYLEE Camarillo - Last Filed: 10/12/22 22:13> Pt is a -year-old female with a PMH significant for?chronic ITP, ischemic cardiomyopathy, anxiety, GERD, chronic HFrEF, COPD/chronic bronchitis/asthma who presents to the ED with?worsening fatigue, malaise, SOB. Patient states she has been feeling fatigued and short of breath, particularly with going upstairs, and ?not right? for the past 2 weeks. Patient has a history of symptomatic anemia and received 7 units in total of packed RBCs last year. Pt is well-known to the hospital and followed by Dr. Giordano in cardiology and Dr. Castellano in GI. Patient has received endoscopy, capsule endoscopy, and colonoscopy with findings of pat chris gastritis, bulbar duodenitis, minimal esophagitis, and chronic antral erosions but no evidence of acute bleeding. Patient claims that she feels similar today to how she presented last time at the hospital in January of 2022 with no new acute symptoms. Patient states she ?procrastinated? seeing the doctor and coming into the hospital to get a transfusion d/t wanting to wait until after her dental surgery yesterday for a lower dental plate. Patient has also been feeling intermittently lightheaded and dizzy, and occasionally feels her heart ?race? if she exerts herself. Patient denies hematemesis, melena, hematochezia. No abdominal pain, diarrhea, constipation. Denies nausea and vomiting. No headache. Denies chest pain/pressure. In the ED patient was tachycardic and hypotensive with a low of 95/49. Labs were significant for H&H of 4.8/18.5, MCV of 76.4, platelets of 54, chronically elevated BUN of 28 (at baseline), BNP slightly elevated at 135. CT?of abdomen and pelvis showed mild hepatomegaly, cholelithiasis, and sigmoid diverticulosis with no evidence of acute diverticulitis or other acute intra-abdominal processes. Patient refused to test for fecal occult blood. EKG showed sinus rhythm with nonspecific T-wave changes. Pt was set to receive two units of packed RBC and one unit of platelets. Pt will be admitted to observation on telemetry for treatment and further workup for symptomatic anemia. <SHAYLEE Camarillo - Last Filed: 10/12/22 22:13> Review of Systems Review of Systems: Increasing fatigue Shortness of breath with exertion Lightheaded/dizzy One episode of a racing heart yesterday while going upstairs Denies melena, hematochezia, hematemesis No chest pain/pressure Denies abdominal pain <SHAYLEE Camarillo - Last Filed: 10/12/22 22:13> [facility] Medical History: Medical History Acute on chronic systolic (congestive) heart failure Anxiety Ascending aorta dilatation Asthma Atherosclerotic cardiovascular disease Cardiomyopathy COPD (chronic obstructive pulmonary disease) COPD exacerbation GERD (gastroesophageal reflux disease) Heart failure with reduced ejection fraction Non-rheumatic aortic regurgitation Non-rheumatic aortic stenosis Non-rheumatic mitral regurgitation Osteoarthritis Thrombocytopenia <SHAYLEE Camarillo - Last Filed: 10/12/22 22:13> Family History: Family History Sister Lung cancer Lupus Sister Lung cancer Maternal Aunt Lupus <SHAYLEE Camarillo - Last Filed: 10/12/22 22:13> Surgical History: Surgical History Hx of colonoscopy Hx of endoscopy Hx of hysterectomy Hx of oophorectomy Hx of total knee replacement <SHAYLEE Camarillo - Last Filed: 10/12/22 22:13> Social History: Social History Household Members: None Household Members Other:: lives alone Housing: Condominium Do you presently have visiting nurse or other home services: No Unable to assess alcohol history related to: Unknown Alcohol intake: current Alcohol intake frequency: 0-2 drinks per day Patient Tobacco Use Status: Former Tobacco user Quit Date: 19 YRS OLD Smoked in Last 30 Days: No Patient Interested in Nicotine Replacement: No Patient Given Instructions on How to Stop Smoking: No Second Hand Smoke Exposure: No Use of substances other than those prescribed or required for medical reasons: Unknown Substance Use Type: Unknown Last Used Substance: Unknown Currently Displaying Signs/Symptoms of Drug Intoxication Withdrawal: No Any prior treatment program specific to substance use: No Have you been hit, kicked, punched, or otherwise hurt by someone within the past year? If so, by whom?: No Do you feel safe in your current relationship?: No Current Relationship Is there a partner from a previous relationship who is making you feel unsafe now?: No Advance Directives: No Advance Directives Information Provided: No Advance Directives on File: No Do you have thoughts of harming others: None Do you have a plan to hurt others: No Plan Recently lost weight without trying: No How much weight loss: 2-13 pounds Eating poorly because of decreased appetite: No Nutrition screen score: 1 Nutrition Risks: No Nutritional Risk Patient : No : No Poor oral hygiene: No service: No (Exose[employer]) Current occupational status: employed <SHAYLEE Camarillo - Last Filed: 10/12/22 22:13> Meds Allergies/Adverse reactions: Allergies Allergy/AdvReac Type Severity Reaction Status Date / Time amoxicillin Allergy Unknown Hives Verified 03/17/22 07:12 penicillin V Allergy Unknown Hives Verified 03/17/22 07:12 Penicillins [PENICILLINS] Allergy Unknown HIVES Verified 03/17/22 07:12 Sulfa (Sulfonamide Allergy Unknown HIVES Verified 03/17/22 07:12 Antibiotics) [SULFA (SULFONAMIDE ANTIBIOTICS)] <SHAYLEE Camarillo - Last Filed: 10/12/22 22:13> Active Medications: Current Medications Pharmacy Consult (Consult Rx Perform Med Rec) 1 each MISCELLANE ONCE PRN PRN Reason: Consult order <SHAYLEE Camarillo - Last Filed: 10/12/22 22:13> Home medications: Home Medications Medication Instructions Recorded Confirmed Last Taken Type albuterol sulfate 90 mcg/actuation 90 inh inhalation Q4H PRN Wheezing 12/07/20 10/12/22 10/12/22 History aerosol inhaler (ProAir HFA) alprazolam 0.5 mg tablet 1 tab PO TID PRN Anxiety 12/07/20 10/12/22 10/12/22 History bupropion HCl 150 mg tablet,12 hr 1 tab PO BID 12/07/20 10/12/22 10/12/22 H istory sustained-release hydrocodone 7.5 mg-acetaminophen 1 tab PO TID PRN Pain 12/07/20 10/12/22 10/12/22 History 325 mg tablet biotin 500 mcg capsule 1 mg PO DAILY 02/07/21 10/12/22 10/12/22 History cholecalciferol (vitamin D3) 25 1,000 unit PO DAILY 02/07/21 10/12/22 10/12/22 History mcg (1,000 unit) capsule (Vitamin D3) albuterol sulfate 2.5 mg/3 mL 2.5 mg inhalation Q4H PRN Wheezing 01/27/22 10/12/22 10/12/22 History (0.083 %) solution for nebulization cimetidine 400 mg tablet 1 tab PO DAILY PRN Acid Reflux 01/27/22 10/12/22 10/12/22 History cyanocobalamin (vitamin B-12) 1,000 mcg PO DAILY 01/27/22 10/12/22 10/12/22 History 1,000 mcg tablet fluticasone propionate 50 1 spray intranasal DAILY 01/27/22 10/12/22 10/12/22 History mcg/actuation nasal spray,suspension vitamin A 2,400 mcg capsule 2,400 mcg PO DAILY 01/27/22 10/12/22 10/12/22 History metoprolol succinate 25 mg 25 mg PO DAILY 05/17/22 10/12/22 10/12/22 History tablet,extended release 24 hr (Toprol XL) aspirin 81 mg tablet,delayed 81 mg PO DAILY 10/12/22 10/12/22 10/12/22 History release <SHAYLEE Camarillo - Last Filed: 10/12/22 22:13> Physical Exam Vital Signs and Narrative: Vital Signs: Last Vital Signs Temp 98.9 F 10/12/22 20:25 Pulse 95 10/12/22 20:25 Resp 16 10/12/22 20:25 BP 116/54 L 10/12/22 20:25 Pulse Ox 94 10/12/22 19:59 O2 Del Method 10/12/22 19:59 O2 Flow Rate 2 10/12/22 19:59 BMI result Body Mass Index 34.6 <SHAYLEE Camarillo - Last Filed: 01/25/23 22:13> Constitutional: Alert, in no acute distress. Mental Status: Oriented to person, place and time. Eyes: Pupils are equal, round, and reactive to light. Ear, Nose, and Throat: Oropharynx clear, mucous membranes moist. Ears and nose without deformities. Trachea midline. Respiratory: Clear to auscultation bilaterally. No wheezing, rales, or rhonchi. Cardiovascular: S1, S2 regular. 3/6 systolic murmer heard in aortic region. No rubs or gallops. Gastrointestinal: Abdomen soft, non-tender, non-distended. Normal bowel sounds. Neurologic: Cranial nerves II-XI are grossly intact. No focal neurological deficits. Moves all extremities spontaneously. Skin: No rashes or lesions noted. Musculoskeletal: No cyanosis or clubbing. Extremities: No edema. Psychiatric: Normal mood and affect. <SHAYLEE Camarillo - Last Filed: 10/12/22 22:13> Results Labs CBC and Chem 7: 10/12/22 16:50 10/12/22 16:50 <SHAYLEE Camarillo - Last Filed: 10/12/22 22:13> Labs: Laboratory Results - last 24 hr 10/12/22 10/12/22 10/12/22 16:50 16:50 16:50 MCV 76.4 L MCH 19.8 L MCHC 25.9 L RDW 17.9 H Plt Count 54 L D MPV Not Reportable Immature Gran % (Auto) 0.2 Neut % (Auto) 67.6 Lymph % (Auto) 20.0 [place] % (Auto) 9.9 Eos % (Auto) 1.8 Baso % (Auto) 0.5 Lymph # (Auto) 1.1 L [place] # (Auto) 0.5 Eos # (Auto) 0.1 Baso # (Auto) 0.0 Abs Immat Gran (auto) 0.01 Absolute Neuts (auto) 3.7 Absolute Nucleated RBC 0.000 Nucleated RBC % (auto) 0.0 Smear Tech's Comments VERIFIED Anion Gap 14 Estim Creat Clear Calc 51.8 Estimated GFR 56 Random Glucose 111 Calcium 8.5 Magnesium 2.0 Total Bilirubin 0.2 AST 26 ALT 9 Alkaline Phosphatase 48 B-Natriuretic Peptide 135 H Total Protein 5.7 L Albumin 3.8 Blood Type Antibody Screen Crossmatch 10/12/22 19:09 MCV MCH MCHC RDW Plt Count MPV Immature Gran % (Auto) Neut % (Auto) Lymph % (Auto) [place] % (Auto) Eos % (Auto) Baso % (Auto) Lymph # (Auto) [place] # (Auto) Eos # (Auto) Baso # (Auto) Abs Immat Gran (auto) Absolute Neuts (auto) Absolute Nucleated RBC Nucleated RBC % (auto) Smear Tech's Comments Anion Gap Estim Creat Clear Calc Estimated GFR Random Glucose Calcium Magnesium Total Bilirubin AST ALT Alkaline Phosphatase B-Natriuretic Peptide Total Protein Albumin Blood Type O Positive Antibody Screen NEGATIVE Crossmatch See Detail <SHAYLEE Camarillo - Last Filed: 10/12/22 22:13> Imaging Radiologist's Impressions: Impressions Abdomen/Pelvis CT 10/12/22 18:37 IMPRESSION: 1. Sigmoid diverticulosis. No evidence of acute diverticulitis or other acute intra-abdominal process. 2. Cholelithiasis. 3. Mild hepatomegaly. 4. Additional chronic findings, as described. Fleischner guidelines were followed. <SHAYLEE Camarillo - Last Filed: 10/12/22 22:13> Assessment and Plan (1) Symptomatic anemia: Status: Acute <SHAYLEE Camarillo - Last Filed: 10/12/22 22:13> Pt is a -year-old female with a PMH significant for?chronic ITP, ischemic cardiomyopathy, anxiety, GERD, chronic HFrEF, COPD/chronic bronchitis/asthma who presents to the ED with?worsening fatigue, malaise, SOB. Pt will to telemetry on observation for treatment and further evaluation of symptomatic anemia of unclear etiology. Symptomatic anemia Etiology unclear, patient denies hematochezia, melena, hematemesis Capsule endoscopy on 04/04/2022 found patchy gastritis and bulbar duodenitis but no active bleeding noted EGD on 01/31/2022 demonstrated minimal esophagitis and mild gastritis with multiple chronic antral erosions. Colonoscopy on same-day failed to demonstrate any acute issues Tachycardia and hypotension likely due to anemia, not sepsis Pt to receive 2 units packed RBC and one unit of platelets GI consult, patient followed by Dr. Castellano Test for occult blood in stool Check iron levels ITP Platelets at 54, slightly below baseline Pt to receive one unit of platelets Ischemic cardiomyopathy No eveidence of acute ischemia: troponins negative, EKG without evidence of acute ischemia, no chest pain Followed by Dr. Giordano in cardiology Continue aspirin Hold metoprolol d/t hypotension Cardiac diet HFrEF, chronic Echocardiogram on 01/31/2022 phoned EF of 45-50% with global hypokinesis, moderate aortic valve stenosis, mild mitral valve regurgitation, and mild pulmonary hypertension Does not seem to be in acute exacerbation, no edema, BNP at baseline GERD Continue home meds Asthma Continue home inhalers Full Code Attending:?Dr. Jackman DVT Prophylaxis: Pneumatic boots Pt will to telemetry on observation for treatment and further evaluation of symptomatic anemia of unclear etiology. <SHAYLEE Camarillo - Last Filed: 10/12/22 22:13> Pt is a -year-old female with a PMH significant for?chronic ITP, ischemic cardiomyopathy, anxiety, GERD, chronic HFrEF, COPD/chronic bronchitis/asthma who presents to the ED with?worsening fatigue, malaise, SOB. Pt will to telemetry on observation for treatment and further evaluation of symptomatic anemia of unclear etiology. Symptomatic anemia Etiology unclear, patient denies hematochezia, melena, hematemesis Capsule endoscopy on 04/04/2022 found patchy gastritis and bulbar duodenitis but no active bleeding noted EGD on 01/31/2022 demonstrated minimal esophagitis and mild gastritis with multiple chronic antral erosions. Colonoscopy on same-day failed to demonstrate any acute issues Tachycardia and hypotension likely due to anemia, not sepsis Pt to receive 2 units packed RBC and one unit of platelets GI consult, patient followed by Dr. Castellano Test for occult blood in stool Check iron levels ITP Platelets at 54, slightly below baseline Pt to receive one unit of platelets - follow cbc Ischemic cardiomyopathy No eveidence of acute ischemia: troponins negative, EKG without evidence of acute ischemia, no chest pain Followed by Dr. Giordano in cardiology Continue aspirin Hold metoprolol d/t hypotension Cardiac diet HFrEF, chronic Echocardiogram on 01/31/2022 phoned EF of 45-50% with global hypokinesis, moderate aortic valve stenosis, mild mitral valve regurgitation, and mild pulmonary hypertension Does not seem to be in acute exacerbation, no edema, BNP at baseline GERD Continue home meds Asthma Continue home inhalers Full Code Attending:?Dr. Jackman DVT Prophylaxis: Pneumatic boots Pt will to telemetry on observation for treatment and further evaluation of symptomatic anemia of unclear etiology. <Sona Barcenas MD - Last Filed: 10/14/22 06:59> Time Spent With Patient Time: Total time managing care of this patient today ____ minutes. <SHAYLEE Camarillo - Last Filed: 10/12/22 22:13> Quality Stroke Does the patient have a stroke diagnosis?: No <SHAYLEE Camarillo - Last Filed: 10/12/22 22:13> VTE Prior VTE?: No <SHAYLEE Camarillo - Last Filed: 10/12/22 22:13> VTE Risk Level:: Medical - moderate - high <SHAYLEE Camarillo - Last Filed: 10/12/22 22:13> VTE Device Contraindication: N/A - Device Ordered <SHAYLEE Camarillo - Last Filed: 10/12/22 22:13> VTE Drug Contraindication: Treatment Not Indicated <SHAYLEE Camarillo - Last Filed: 10/12/22 22:13>
[2022-10-12 21:37] LABS: Iron 10 mcg/dL (30-160); Percent Iron Saturation 3 % (15-50); Total Iron Binding Capacity 319 mcg/dL (228-428); Unsaturated Iron Binding 309 ug/dL
--- NOTE | 2022-10-12 22:04 | PC.NURSE ---
2nd iv inserted, tolerated well
[2022-10-12] MEDS: HYDROcodone Bit/Acetam 7.5/325 TABLET 1 TAB PO (22:10)
[2022-10-13] VITALS (12 sets, daily range): BP systolic 112–147; BP diastolic 49–63; PULSE 69–84; RESP 12–20; TEMP 36.2–37.1; O2SAT 96–99
[2022-10-13 00:10] LABS: COVID-19 Test Negative (Negative); IDNOW Serial# 9DB6401D
[2022-10-13] MEDS: ALPRAZolam 0.5 MG TABLET PO ×3 (02:01→23:41)
[2022-10-13 06:50] LABS: Hematocrit 23.9 % (37.0-47.0); Mean Corpuscular HGB Conc 28.9 g/dl (31.0-35.0); Mean Corpuscular Hemoglobin 22.3 pg (27.0-33.0); Mean Corpuscular Volume 77.3 fL (80.0-98.0); Red Blood Count 3.09 X10*6/uL (4.20-5.50); Red Cell Distribution Width 17.2 % (11.0-16.0); White Blood Count 5.4 X10*3/uL (4.8-10.8)
--- NOTE | 2022-10-13 07:54 | PM.GICN ---
History of Present Illness Data of Consult Service Date: 10/13/22 Requesting physician: Flavia Alvarez Primary Care Provider: Joseph Magana MD HPI Reason for consult: Symptomatic anemia 76 YF with ?chronic ITP, ischemic cardiomyopathy, anxiety, GERD, chronic HFrEF, COPD/chronic bronchitis/asthma?[place] [facility] [place]12[place] ?worsening fatigue, malaise, SOB.? Patient stated she has been feeling fatigued and short of breath, particularly with going upstairs, and ?not right? for the past 2 weeks.? Patient has a history of symptomatic anemia and received 7 units in total of packed RBCs last year. Pt is well-known to the hospital and followed by Dr. Giordano in cardiology and Dr. Castellano in GI.? Past evaluation with endoscopy, capsule endoscopy, and colonoscopy showed patchy gastritis, bulbar duodenitis, minimal esophagitis, and chronic antral erosions but no evidence of acute bleeding.? Patient claims that she feels similar today to how she presented last time at the hospital in January of 2022 with no new acute symptoms.? Patient states she ?procrastinated? seeing the doctor and coming into the hospital to get a transfusion d/t wanting to wait until after her dental surgery yesterday for a lower dental plate.? Patient has also been feeling intermittently lightheaded and dizzy, and occasionally feels her heart ?race? if she exerts herself.? Patient denies hematemesis, melena, hematochezia.? No abdominal pain, diarrhea, constipation.? Denies nausea and vomiting.? No headache.? Denies chest pain/pressure. In the ED patient was tachycardic and hypotensive?with a low of 95/49.?Labs were significant for H&H of 4.8/18.5, MCV of 76.4, platelets of 54, chronically elevated BUN of 28 (at baseline), BNP slightly elevated at 135. CT?of abdomen and pelvis showed mild hepatomegaly, cholelithiasis, and sigmoid diverticulosis with no evidence of acute diverticulitis or other acute intra-abdominal processes.? Patient refused to test for fecal occult blood.? EKG showed sinus rhythm with nonspecific T-wave changes. Pt was set to receive two units of packed RBC and one unit of platelets. Pt will be admitted to observation on telemetry for treatment and further workup for symptomatic anemia. PAST GI WORKUP: IMAGING STUDIES:? 01/27/[address] SCAN SHOWED: No retroperitoneal hematoma. No acute findings in the abdomen or pelvis. ?Cholelithiasis. No evidence of cholecystitis.? ENDOSCOPIC STUDIES: 01/31/22 EGD AND COLONOSCOPY SHOWED: ESOPHAGUS: Small hiatal hernia 35 to 38 cms. Minimal esophagitis with a 0.5 cms superficial erosion at GEJ.? ? STOMACH: Moderate gastric erythema with multiple chronic apearing antral erosions Biopsies were obtained. DUODENUM:? Duoentitis in the apex of the bulb with a 1 cms edematous fold/benign appearing nodule - biopsied. Normal descending duodenum - biopsies were obtained to check for celiac sprue Colonoscopy Findings: A 1 cms non- bleeding AVM in the cecum ablated with APC Patchy resolving colitis from 50 to 60 cms with erythema and superficial ulcers (? ischemic colitis versus due to NSAID) - biopsies obtained. A few 3-4 mm diminutive appearing rectal polyps - biopsied. Moderate diverticulosis seen in the left colon Moderate hemorrhoids on retroflexed exam. Plan:? Capsule Endoscopy as an outpatient Repeat Colonoscopy interval based on path results - in 1 year due to fair prep BIOPSIES SHOWED: A.? Small bowel, biopsy:? Small intestinal mucosa within normal limits; negative for celiac disease. B.? Duodenum, nodule, biopsy:? 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 C.? Stomach, antrum, biopsy:? Antral-type mucosa with moderate chronic inactive inflammation; no Helicobacter organisms seen. D.? Colon, sigmoid, biopsy:? Active erosive colitis; no fully developed chronic injury identified. E.? Rectum, polypectomies:? Hyperplastic mucosal polyp. 03/03/22 CAPSULE ENDOSCOPY SHOWED: Findings: esophagus was normal. Stomach mucosa with patchy gastritis. duodenum entered at 2 min 20 sec with bulbar duodenitis. Good views of small bowel mucosa, no active bleeding or masses seen. cecum entered at 3 hr 23 mins Conclusion: gastritis duodenitis no active bleeding noted check h pylori and nsaid history ? Review of Systems Review of Systems: Increasing fatigue Shortness of breath with exertion Lightheaded/dizzy One episode of a racing heart yesterday while going upstairs Denies melena, hematochezia, hematemesis No chest pain/pressure Denies abdominal pain PMFSH Past Medical History Medical History Acute on chronic systolic (congestive) heart failure Anxiety Ascending aorta dilatation Asthma Atherosclerotic cardiovascular disease Cardiomyopathy COPD (chronic obstructive pulmonary disease) COPD exacerbation GERD (gastroesophageal reflux disease) Heart failure with reduced ejection fraction Non-rheumatic aortic regurgitation Non-rheumatic aortic stenosis Non-rheumatic mitral regurgitation Osteoarthritis Thrombocytopenia Family History Family History Sister Lung cancer Lupus Sister Lung cancer Maternal Aunt Lupus Surgical History Surgical History Hx of colonoscopy Hx of endoscopy Hx of hysterectomy Hx of oophorectomy Hx of total knee replacement Social History Social History Household Members: None Household Members Other:: lives alone Housing: [facility] Do you presently have visiting nurse or other home services: No Unable to assess alcohol history related to: Unknown Alcohol intake: current Alcohol intake frequency: 0-2 drinks per day Patient Tobacco Use Status: Former Tobacco user Quit Date: 19 YRS OLD Second Hand Smoke Exposure: No Substance Use Type: Unknown service: No ( career [employer]) Current occupational status: employed Meds Allergies Allergy/AdvReac Type Severity Reaction Status Date / Time amoxicillin Allergy Unknown Hives Verified 03/17/22 07:12 penicillin V Allergy Unknown Hives Verified 03/17/22 07:12 Penicillins [PENICILLINS] Allergy Unknown HIVES Verified 03/17/22 07:12 Sulfa (Sulfonamide Allergy Unknown HIVES Verified 03/17/22 07:12 Antibiotics) [SULFA (SULFONAMIDE ANTIBIOTICS)] Active Medications: Current Medications Acetaminophen (Acetaminophen 325 Mg Tablet) 650 mg PO Q6H PRN PRN Reason: Pain, Mild (Pain Scale 1-3) Hydrocodone Bitart/Acetaminophen (Hydrocodone Bit/Acetam 7.5/325 Tablet) 1 tab PO TID PRN PRN Reason: Pain, Severe (Pain Scale 7-10) Last Admin: 10/12/22 22:10 Dose: 1 tab Albuterol Sulfate (Albuterol Sulfate (0.083%) 2.5 Mg/3 Ml Vial.Neb) 2.5 mg INHALE Q4H PRN PRN Reason: Wheezing Albuterol Sulfate (Albuterol Sulfate 90 Mcg 8 Gm Inhaler) 90 puff INHALE Q4H PRN PRN Reason: Wheezing Alprazolam (Alprazolam 0.5 Mg Tablet) 0.5 mg PO TID PRN PRN Reason: Anxiety Last Admin: 10/13/22 02:01 Dose: 0.5 mg Aspirin (Aspirin Enteric Coated 81 Mg Tablet.Dr) 81 mg PO DAILY [facility] Bupropion HCl (Bupropion Hcl Xl 300 Mg Tab.Er.24h) 300 mg PO DAILY [facility] Cyanocobalamin (Cyanocobalamin (Vitamin B-12) 1,000 Mcg Tablet) 1,000 mcg PO DAILY [facility] Docusate Sodium (Docusate Sodium 100 Mg Capsule) 100 mg PO DAILY PRN PRN Reason: Constipation Famotidine (Famotidine 20 Mg Tablet) 20 mg PO DAILY PRN PRN Reason: Acid Reflux Fluticasone Propionate (Fluticasone Propionate Nasal 16 Gm [place]) 1 spray NOSTRIL-B DAILY [facility] Ondansetron HCl (Ondansetron Hcl 4 Mg/2 Ml Vial) 4 mg IVPUSH Q8H PRN PRN Reason: Nausea and Vomiting Pharmacy Consult (Consult Rx Perform Med Rec) 1 each MISCELLANE ONCE PRN PRN Reason: Consult order Sodium Chloride (0.9 % Sodium Chloride Flush 3 Ml Syringe) 3 ml IVFLUSH QSHIFT [facility] Last Admin: 10/13/22 01:53 Dose: Not Given Vitamin D (Cholecalciferol (Vitamin D3) 25 Mcg Tablet) 25 mcg PO DAILY [facility] Home Medications Medication Instructions Recorded Confirmed Last Taken Type albuterol sulfate 90 mcg/actuation 90 inh inhalation Q4H PRN Wheezing 12/07/20 10/12/22 10/12/22 History aerosol inhaler (ProAir HFA) alprazolam 0.5 mg tablet 1 tab PO TID PRN Anxiety 12/07/20 10/12/22 10/12/22 History bupropion HCl 150 mg tablet,12 hr 1 tab PO BID 12/07/20 10/12/22 10/12/22 History sustained-release hydrocodone 7.5 mg-acetaminophen 1 tab PO TID PRN Pain 12/07/20 10/12/22 10/12/22 History 325 mg tablet biotin 500 mcg capsule 1 mg PO DAILY 02/07/21 10/12/22 10/12/22 History cholecalciferol (vitamin D3) 25 1,000 unit PO DAILY 02/07/21 10/12/22 10/12/22 History mcg (1,000 unit) capsule (Vitamin D3) albuterol sulfate 2.5 mg/3 mL 2.5 mg inhalation Q4H PRN Wheezing 01/27/22 10/12/22 10/12/22 History (0.083 %) solution for nebulization cimetidine 400 mg tablet 1 tab PO DAILY PRN Acid Reflux 01/27/22 10/12/22 10/12/22 History cyanocobalamin (vitamin B-12) 1,000 mcg PO DAILY 01/27/22 10/12/22 10/12/22 History 1,000 mcg tablet fluticasone propionate 50 1 spray intranasal DAILY 01/27/22 10/12/22 10/12/22 History mcg/actuation nasal spray,suspension vitamin A 2,400 mcg capsule 2,400 mcg PO DAILY 01/27/22 10/12/22 10/12/22 History metoprolol succinate 25 mg 25 mg PO DAILY 05/17/22 10/12/22 10/12/22 History tablet,extended release 24 hr (Toprol XL) aspirin 81 mg tablet,delayed 81 mg PO DAILY 10/12/22 10/12/22 10/12/22 History release Physical Exam Vital Signs: Vital Signs: Last Vital Signs Temp 98.0 F 10/13/22 01:58 Pulse 75 10/13/22 01:58 Resp 18 10/13/22 01:58 BP 142/63 H 10/13/22 01:58 Pulse Ox 99 10/13/22 01:58 O2 Del Method 10/13/22 01:58 O2 Flow Rate 2 10/13/22 01:58 BMI result Body Mass Index 34.6 Const: General: healthy appearing and no acute distress Nutritional Appearance: obese Orientation/consciousness: patient oriented x3 Limitations: no limitations HEENT: Head: Yes normal to inspection Ears: hearing grossly normal bilaterally Eyes: Sclerae: sclerae normal Pupils: Equal, round and reactive pupils present Neck: Neck: Yes normal visual inspection Chest: Chest palpation & inspection: normal inspection of the chest Resp: Effort & Inspection: normal respiratory effort Auscultation: clear to auscultation bilaterally Cardio: Palpation: normal PMI Rate: regular rate Rhythm: regular rhythm Heart sounds: S1 normal heart sound present, S2 normal heart sound present and Murmur heart sound present (systolic murmur at LSB) GI: Palpation (GI): Soft to palpation, nontender and No hepatosplenomegaly present Auscultation: normal bowel sounds Rectal Exam - Female: deferred Skin: General skin exam: no rashes or lesions noted Neuro: General: patient oriented x3, gait normal and moves all extremities Cranial nerves: Yes Equal, round and reactive pupils present Psych: Appearance: grossly normal Mental Status: mental status grossly normal Results Labs 10/12/22 16:50 10/12/22 16:50 Labs: Short CBC 10/12/22 Range/Units 16:50 WBC 5.5 (4.8-10.8) X10*3/uL Hgb 4.8 L* D (12.0-16.0) g/dl Hct 18.5 L* D (37.0-47.0) % Plt Count 54 L D (160-400) X10*3/uL BMP 10/12/22 16:50 Sodium 145 Potassium 4.2 Chloride 112 H Carbon Dioxide 23 BUN 28 H Creatinine 0.96 Calcium 8.5 Liver Function 10/12/22 Range/Units 16:50 Total Bilirubin 0.2 (0.0-1.0) mg/dL AST 26 (5-31) U/L ALT 9 (0-31) U/L Alkaline Phosphatase 48 (39-117) U/L Albumin 3.8 (3.5-5.0) g/dL Assessment and Plan (1) Symptomatic anemia: Status: Acute Plan 76 YF with COPD/chronic bronchitis/asthma, anxiety, GERD, chronic HFrEF, and chronic ITP [place] [facility] [place] with 2 week hx of ?worsening fatigue, malaise, SOB.? Patient has a history of symptomatic anemia and received 7 units in total of packed RBCs last year (last hospitalized in Jan, 2022) Past evaluation with endoscopy, capsule endoscopy, and colonoscopy showed patchy gastritis, bulbar duodenitis, minimal esophagitis, and chronic antral erosions but no evidence of acute bleeding.? Patient stated she ?procrastinated? seeing the doctor and coming into the hospital to get a transfusion d/t wanting to wait until after her dental surgery yesterday for a lower dental plate.? Patient denies hematemesis, melena, hematochezia, abdominal pain, diarrhea, constipation.? Labs showed H&H of 4.8/18.5, platelets of 54, chronically elevated BUN of 28 (at baseline). CT?of abdomen and pelvis showed mild hepatomegaly, cholelithiasis, and sigmoid diverticulosis with no evidence of acute diverticulitis or other acute intra-abdominal processes.? Patient refused to test for fecal occult blood.? Pt was admitted and transfused two units of packed RBCovernight and one unit of platelets. Past iron studies were consistent with iron deficiency anemia.? No clear source of anemia found on past evaluations with EGD, colonoscopy and Capsule Endoscopy. Recurrent anemia can be due to slow GI blood loss from small bowel AVMs versus nutritional RECOMMENDATIONS: 1. Agree with transfusion of 1 additional unit of PRBC and follow H & H 2. Pt was offered repeat EGD - pt refused and would like to have labs monitored without additional workup 3. If repeat CBC is stable, she can be discharged home and have repeat CBC checked in a week and then once a month (by her PCP). Of note, pt has not tolerated oral iron in the past because of constipation.? She has received parenteral iron therapy, and needs to be referred back to Dr Vega for IV iron therapy. ? Time Spent With Patient Time: Total time managing care of this patient today ____ minutes. Procedures Date of Service Date of Service: 10/13/22
[2022-10-13 07:55] LABS: Hemoglobin 6.9 g/dl (12.0-16.0); Platelet Count 54 X10*3/uL (160-400)
[2022-10-13] MEDS: Cyanocobalamin (Vitamin B-12) 1,000 MCG TABLET 1000 MCG PO (09:07)
[2022-10-13] MEDS: Fluticasone Propionate Nasal 16 GM SPRAY 1 SPRAY NOSTRIL-B (09:07)
[2022-10-13] MEDS: buPROPion HCl XL 300 MG TAB.ER.24H PO (09:07)
[2022-10-13] MEDS: Aspirin Enteric Coated 81 MG TABLET.DR PO (09:07)
[2022-10-13] MEDS: 0.9 % Sodium Chloride Flush 3 ML SYRINGE IVFLUSH ×3 (09:07→19:25)
[2022-10-13] MEDS: Cholecalciferol (Vitamin D3) 25 MCG TABLET PO (09:07)
--- NOTE | 2022-10-13 11:27 | P.PNIM_ITS ---
Subjective Subjective Date of Service: 10/13/22 Interval History: the patient was seen and evaluated this morning Laying in bed, feels better today not interested in GI work up Denies any fever, chills or shortness of breath No reported other overnight events. Review of Systems Review of Systems: Yes all other systems are reviewed and are negative Physical Exam Vital Signs: Vital Signs: Last Vital Signs Temp 98.1 F 10/13/22 08:00 Pulse 69 10/13/22 08:00 Resp 12 10/13/22 08:00 BP 147/63 H 10/13/22 08:00 Pulse Ox 98 10/13/22 08:00 O2 Del Method 10/13/22 08:00 O2 Flow Rate 2 10/13/22 08:00 BMI result Body Mass Index 34.6 Const: Other: Constitutional : Awake, interactive, not in distress Neck : Normal inspection, Supple Cardiovascular : RRR, no JVP, no lower extremity edema Respiratory : good bilateral air entry, no crackles, wheezes or rhonchi Gastrointestinal: soft, lax, Normal bowel sounds, Non tender Skin : Warm, Dry Neurological : Alert & oriented x3, No focal deficit , CN 2-12 within normal Objective Data Active Medications Acetaminophen (Acetaminophen 325 Mg Tablet) 650 mg PO Q6H PRN PRN Reason: Pain, Mild (Pain Scale 1-3) Hydrocodone Bitart/Acetaminophen (Hydrocodone Bit/Acetam 7.5/325 Tablet) 1 tab PO TID PRN PRN Reason: Pain, Severe (Pain Scale 7-10) Last Admin: 10/12/22 22:10 Dose: 1 tab Documented By: MARILYN Albuterol Sulfate (Albuterol Sulfate (0.083%) 2.5 Mg/3 Ml Vial.[place]) 2.5 mg INHALE Q4H PRN PRN Reason: Wheezing Albuterol Sulfate (Albuterol Sulfate 90 Mcg 8 Gm Inhaler) 90 puff INHALE Q4H PRN PRN Reason: Wheezing Alprazolam (Alprazolam 0.5 Mg Tablet) 0.5 mg PO TID PRN PRN Reason: Anxiety Last Admin: 10/13/22 02:01 Dose: 0.5 mg Documented By: DEXTER Aspirin (Aspirin Enteric Coated 81 Mg Tablet.) 81 mg PO DAILY [facility] Last Admin: 10/13/22 09:07 Dose: 81 mg Documented By: JORDANA Bupropion HCl (Bupropion Hcl Xl 300 Mg Tab.Er.24h) 300 mg PO DAILY [facility] Last Admin: 10/13/22 09:07 Dose: 300 mg Documented By: JORDANA Cyanocobalamin (Cyanocobalamin (Vitamin B-12) 1,000 Mcg Tablet) 1,000 mcg PO DAILY [facility] Last Admin: 10/13/22 09:07 Dose: 1,000 mcg Documented By: JORDANA Docusate Sodium (Docusate Sodium 100 Mg Capsule) 100 mg PO DAILY PRN PRN Reason: Constipation Famotidine (Famotidine 20 Mg Tablet) 20 mg PO DAILY PRN PRN Reason: Acid Reflux Ferrous Sulfate (Ferrous Sulfate 324 Mg Tablet.Dr) 324 mg PO BIDWM [facility] Fluticasone Propionate (Fluticasone Propionate Nasal 16 Gm [place]) 1 spray NOSTRIL-B DAILY [facility] Last Admin: 10/13/22 09:07 Dose: 1 spray Documented By: JORDANA Ondansetron HCl (Ondansetron Hcl 4 Mg/2 Ml Vial) 4 mg IVPUSH Q8H PRN PRN Reason: Nausea and Vomiting Pharmacy Consult (Consult Rx Perform Med Rec) 1 each MISCELLANE ONCE PRN PRN Reason: Consult order Sodium Chloride (0.9 % Sodium Chloride Flush 3 Ml Syringe) 3 ml IVFLUSH QSHIFT [facility] Last Admin: 10/13/22 09:07 Dose: 3 ml Documented By: JORDANA Vitamin D (Cholecalciferol (Vitamin D3) 25 Mcg Tablet) 25 mcg PO DAILY [facility] Last Admin: 10/13/22 09:07 Dose: 25 mcg Documented By: JORDANA Labs 10/13/22 06:13 10/12/22 16:50 Labs: Laboratory Results - last 24 hr 10/12/22 10/12/22 10/12/22 16:50 16:50 16:50 MCV 76.4 L MCH 19.8 L MCHC 25.9 L RDW 17.9 H Plt Count 54 L D MPV Not Reportable Immature Gran % (Auto) 0.2 Neut % (Auto) 67.6 Lymph % (Auto) 20.0 [place] % (Auto) 9.9 Eos % (Auto) 1.8 Baso % (Auto) 0.5 Lymph # (Auto) 1.1 L [place] # (Auto) 0.5 Eos # (Auto) 0.1 Baso # (Auto) 0.0 Abs Immat Gran (auto) 0.01 Absolute Neuts (auto) 3.7 Absolute Nucleated RBC 0.000 Nucleated RBC % (auto) 0.0 Smear Tech's Comments VERIFIED Anion Gap 14 Estim Creat Clear Calc 51.8 Estimated GFR 56 Random Glucose 111 Calcium 8.5 Magnesium 2.0 Iron 10 L TIBC 319 % Saturation 3 L Unsat Iron Binding 309 Total Bilirubin 0.2 AST 26 ALT 9 Alkaline Phosphatase 48 B-Natriuretic Peptide 135 H Total Protein 5.7 L Albumin 3.8 COVID-19 ([facility]INA) COVID-[employer] Blood Type Antibody Screen Crossmatch 10/12/22 10/12/22 10/13/22 19:09 23:39 06:13 MCV 77.3 L MCH 22.3 L MCHC 28.9 L RDW 17.2 H Plt Count 54 L MPV Not Reportable Immature Gran % (Auto) Neut % (Auto) Lymph % (Auto) [place] % (Auto) Eos % (Auto) Baso % (Auto) Lymph # (Auto) [place] # (Auto) Eos # (Auto) Baso # (Auto) Abs Immat Gran (auto) Absolute Neuts (auto) Absolute Nucleated RBC 0.000 Nucleated RBC % (auto) 0.0 Smear Tech's Comments Anion Gap Estim Creat Clear Calc Estimated GFR Random Glucose Calcium Magnesium Iron TIBC % Saturation Unsat Iron Binding Total Bilirubin AST ALT Alkaline Phosphatase B-Natriuretic Peptide Total Protein Albumin COVID-19 ([facility]INA) Negative [id number] See Note Blood Type O Positive Antibody Screen NEGATIVE Crossmatch See Detail Assessment and Plan (1) Symptomatic anemia: Status: Acute (2) Thrombocytopenia: Status: Acute Plan Pt is a -year-old female with a PMH significant for?chronic ITP, ischemic cardiomyopathy, anxiety, GERD, chronic HFrEF, COPD/chronic bronchitis/asthma who presents to the ED with?worsening fatigue, malaise, SOB. Pt will to telemetry on observation for treatment and further evaluation of symptomatic anemia of unclear etiology. Symptomatic anemia Etiology unclear Capsule endoscopy on 04/04/2022 found patchy gastritis and bulbar duodenitis but no active bleeding noted EGD on 01/31/2022 demonstrated minimal esophagitis and mild gastritis with multiple chronic antral erosions. Colonoscopy on same-day failed to demonstrate any acute issues Hb improved to 6.9 from 4.8, to give 1 more unit GI consult, Dr. Castellano pending occult blood in stool Low Iron, Sat %, to give PO replacement ITP Platelets at 54, slightly below baseline received one unit of platelets Hx of Ischemic cardiomyopathy troponins negative, EKG without evidence of acute ischemia, no chest pain Followed by Dr. Giordano in cardiology Hold aspirin Hold metoprolol d/t hypotension Cardiac diet HFrEF, chronic Echocardiogram on 01/31/2022 phoned EF of 45-50% with global hypokinesis Does not seem to be in acute exacerbation, no edema, BNP at baseline GERD Continue home meds Asthma Continue home inhalers DVT Prophylaxis: Pneumatic boots Patient will need overnight hospital stay for eval of symptomatic anemia Time Spent With Patient Time: Total time managing care of this patient today ____ minutes. Quality Stroke Does the patient have a stroke diagnosis?: No VTE Prior VTE?: No VTE Risk Level:: Medical - moderate - high VTE Device Contraindication: N/A - Device Ordered VTE Drug Contraindication: Treatment Not Indicated
--- NOTE | 2022-10-13 14:16 | MHC.CM.PN ---
SÁNCHEZ 10/13/22 Female 76 DX Fatigue SOB. Pt lives by herself. She is independent with ADLs. She uses a walking stick. DP home with new VNA if ordered. Pt will arrange for transport home.
[2022-10-13 15:31] LABS: OBS Int Ctl Valid YES; OBS1 NEGATIVE (NEGATIVE)
[2022-10-13] MEDS: Ferrous Sulfate 324 MG TABLET.DR PO (16:03)
[2022-10-13 16:39] LABS: Ferritin 17 ng/mL (10-250)
[2022-10-13 16:54] LABS: Folate 12.5 ng/mL (> or = 4.0); Vitamin B12 1493 pg/mL (200-900)
--- NOTE | 2022-10-13 17:55 | PC.NURSE ---
Hospitalist reports indicate pt. received 1 unit of platelets but the order for platelet was canceled and pt never received. I reached out to provider to let him know. Pt has thrombocytopenia
[2022-10-13] MEDS: HYDROcodone Bit/Acetam 7.5/325 TABLET 1 TAB PO (19:24)
[2022-10-13] MEDS: Chlorhexidine Gluc Oral Rinse 15 ML MOUTHWASH BUCCAL (19:29)
[2022-10-13] MEDS: Albuterol Sulfate 90 MCG 8 GM INHALER 90 PUFF INHALE (22:02)
[2022-10-14 04:00] VITALS: BP 123/56; PULSE 70; RESP 20; TEMP 36.4; O2SAT 95
[2022-10-14] MEDS: ondansetron HCL 4 MG/2 ML VIAL IVPUSH (05:48)
[2022-10-14] MEDS: HYDROcodone Bit/Acetam 7.5/325 TABLET 1 TAB PO (05:48)
[2022-10-14 06:39] LABS: Hematocrit 29.5 % (37.0-47.0); Hemoglobin 8.6 g/dl (12.0-16.0); Mean Corpuscular HGB Conc 29.2 g/dl (31.0-35.0); Mean Corpuscular Hemoglobin 23.4 pg (27.0-33.0); Mean Corpuscular Volume 80.4 fL (80.0-98.0); PLT CLUMP 1; Red Blood Count 3.67 X10*6/uL (4.20-5.50); Red Cell Distribution Width 18.5 % (11.0-16.0); White Blood Count 5.6 X10*3/uL (4.8-10.8)
[2022-10-14 06:57] LABS: Platelet Count 54 X10*3/uL (160-400)
[2022-10-14 07:09] LABS: Anion Gap 12 (12-20); Blood Urea Nitrogen 17 mg/dL (9-16); Calcium 8.4 mg/dL (8.4-10.2); Carbon Dioxide 26 mmol/L (22-29); Chloride 110 mmol/L (96-108); Creatinine Clr Calc Pharmacy 60.6; Estimated Glomerular Filt Rate > 60; Glucose Random 87 mg/dL (60-115); Potassium 4.2 mmol/L (3.3-5.1); Sodium 144 mmol/L (135-145)
[2022-10-14 07:28] VITALS: BP 126/64; PULSE 78; RESP 18; TEMP 36.3; O2SAT 98
[2022-10-14] MEDS: Ferrous Sulfate 324 MG TABLET.DR PO (08:40)
[2022-10-14] MEDS: 0.9 % Sodium Chloride Flush 3 ML SYRINGE IVFLUSH (08:40)
[2022-10-14] MEDS: buPROPion HCl XL 300 MG TAB.ER.24H PO (08:40)
[2022-10-14] MEDS: Cyanocobalamin (Vitamin B-12) 1,000 MCG TABLET 1000 MCG PO (08:40)
[2022-10-14] MEDS: Chlorhexidine Gluc Oral Rinse 15 ML MOUTHWASH BUCCAL (08:41)
[2022-10-14] MEDS: Cholecalciferol (Vitamin D3) 25 MCG TABLET PO (08:41)
[2022-10-14] MEDS: Fluticasone Propionate Nasal 16 GM SPRAY 1 SPRAY NOSTRIL-B (08:45)
[2022-10-14 11:46] VITALS: BP 129/70; PULSE 78; RESP 18; TEMP 36.7; O2SAT 98
--- NOTE | 2022-10-14 11:58 | PM.DS ---
DS: Providers Provider Date of Service: 10/14/22 Date of admission: 10/12/22 21:24 Primary care physician: Joseph Magana MD Consults: 10/12/22 21:24 Consult to Gastroenterology Routine Consulting Provider: Olga Castellano Reason for consultation: Symotomatic anemia Has provider been notified: No DS: Diagnosis Discharge Diagnosis (1) Symptomatic anemia: Status: Acute DS: Summary Hospital Course Hospital Course: Admission note HPI? A 76 -year-old female with a PMH significant for?chronic ITP, ischemic cardiomyopathy, anxiety, GERD, chronic HFrEF, COPD/chronic bronchitis/asthma?who presents to the ED with?worsening fatigue, malaise, SOB.? Patient states she has been feeling fatigued and short of breath, particularly with going upstairs, and ?not right? for the past 2 weeks.? Patient has a history of symptomatic anemia and received 7 units in total of packed RBCs last year. Pt is well-known to the hospital and followed by Dr. Giordano in cardiology and Dr. Castellano in GI.? Patient has received endoscopy, capsule endoscopy, and colonoscopy with findings of patchy gastritis, bulbar duodenitis, minimal esophagitis, and chronic antral erosions but no evidence of acute bleeding.? Patient claims that she feels similar today to how she presented last time at the hospital in January of 2022 with no new acute symptoms.? Patient states she ?procrastinated? seeing the doctor and coming into the hospital to get a transfusion d/t wanting to wait until after her dental surgery yesterday for a lower dental plate.? Patient has also been feeling intermittently lightheaded and dizzy, and occasionally feels her heart ?race? if she exerts herself.? Patient denies hematemesis, melena, hematochezia.? No abdominal pain, diarrhea, constipation.? Denies nausea and vomiting.? No headache.? Denies chest pain/pressure. In the ED patient was tachycardic and hypotensive?with a low of 95/49.?Labs were significant for H&H of 4.8/18.5, MCV of 76.4, platelets of 54, chronically elevated BUN of 28 (at baseline), BNP slightly elevated at 135. CT?of abdomen and pelvis showed mild hepatomegaly, cholelithiasis, and sigmoid diverticulosis with no evidence of acute diverticulitis or other acute intra-abdominal processes.? Patient refused to test for fecal occult blood.? EKG showed sinus rhythm with nonspecific T-wave changes. Pt was set to receive two units of packed RBC and one unit of platelets. Pt will be admitted to observation on telemetry for treatment and further workup for symptomatic anemia. Hospital course The patient was admitted to the hospital for symptomatic anemia. Received total of 4 units of blood with improvement of hemoglobin from 4.8-8.6. CT scan of the abdomen did not show any acute findings. She was evaluated by vegetable tester who recommended EGD but the patient refused as she had recent studies done and came back negative. Fecal occult blood came back negative. The patient was all bit to tolerate diet with no reported abdominal pain, melena or bleeding. To repeat CBC next week and follow-up with PCP for the need of IV iron as she got constipated and p.o. iron pills and to plan for possible outpatient blood transfusion in transfusion center. Start Omeprazole daily To repeat CBC next week To follow-up with PCP outpatient for IV iron and repeat blood level on monthly basis Time Spent with Patient Time attestation: Total time managing care of this patient today ____ minutes. Discharge coordination time: Greater than 30 minutes Quality: Safe Use of Opioids Does Pt have an Active Cancer Diagnosis on the Problem List?: No Quality: Stroke Does the patient have a stroke diagnosis?: No Physical Exam Vital Signs: Vital Signs: Last Vital Signs Temp 98.0 F 10/14/22 11:46 Pulse 78 10/14/22 11:46 Resp 18 10/14/22 11:46 BP 129/70 10/14/22 11:46 Pulse Ox 98 10/14/22 11:46 O2 Del Method 10/14/22 11:46 O2 Flow Rate 2 10/14/22 11:46 BMI result Body Mass Index 34.6 Const: Other: Constitutional : Awake, interactive, not in distress Neck : Normal inspection, Supple Cardiovascular : RRR, no JVP, no lower extremity edema Respiratory : good bilateral air entry, no crackles, wheezes or rhonchi Gastrointestinal: soft, lax, Normal bowel sounds, Non tender Skin : Warm, Dry Neurological : Alert & oriented x3, No focal deficit DS: Data Data Completed and Pending Completed studies during hospitalization [Text1]: Procedures Destruction of Cecum, Via Natural or Artificial Opening Endoscopic (01/27/22) Excision of Duodenum, Via Natural or Artificial Opening Endoscopic, Diagnostic (01/27/22) Excision of Rectum, Via Natural or Artificial Opening Endoscopic, Diagnostic (01/27/22) Excision of Sigmoid Colon, Via Natural or Artificial Opening Endoscopic, Diagnostic (01/27/22) Excision of Stomach, Pylorus, Via Natural or Artificial Opening Endoscopic, Diagnostic (01/27/22) Transfusion of Nonautologous Red Blood Cells into Peripheral Vein, Percutaneous Approach (01/27/22) Labs on day of discharge: Laboratory Results - last 24 hr 10/12/22 10/13/22 10/13/22 19:09 15:00 15:56 WBC RBC Hgb Hct MCV MCH MCHC RDW Plt Count MPV Absolute Nucleated RBC Nucleated RBC % (auto) Sodium Potassium Chloride Carbon Dioxide Anion Gap BUN Creatinine Estim Creat Clear Calc Estimated GFR Random Glucose Calcium Ferritin 17 Vitamin B12 Folate Stool Occult Blood NEGATIVE Crossmatch See Detail 10/13/22 10/14/22 10/14/22 15:56 06:14 06:14 WBC 5.6 RBC 3.67 L Hgb 8.6 L D Hct 29.5 L D MCV 80.4 MCH 23.4 L MCHC 29.2 L RDW 18.5 H Plt Count 54 L MPV Not Reportable Absolute Nucleated RBC 0.000 Nucleated RBC % (auto) 0.0 Sodium 144 Potassium 4.2 Chloride 110 H Carbon Dioxide 26 Anion Gap 12 BUN 17 H Creatinine 0.82 Estim Creat Clear Calc 60.6 Estimated GFR > 60 Random Glucose 87 Calcium 8.4 Ferritin Vitamin B12 1493 H Folate 12.5 Stool Occult Blood Crossmatch Imaging CT scan - abdomen: Radiologist's impression: ITS Impressions Abdomen/Pelvis CT 10/12/22 18:37 IMPRESSION: 1. Sigmoid diverticulosis. No evidence of acute diverticulitis or other acute intra-abdominal process. 2. Cholelithiasis. 3. Mild hepatomegaly. 4. Additional chronic findings, as described. Fleischner guidelines were followed. Discharge Plan Discharge Patient Disposition: Home Health Service Discharge Diagnosis: Symptomatic anemia Referrals: Name,MD Joseph [Primary Care Provider] - 1 Week Discharge Medications: New omeprazole 20 mg capsule,delayed release(DR/EC) 20 mg PO DAILY Qty: 30 0RF Continued bupropion HCl 150 mg tablet sustained-release 12 hr 1 tab PO BID alprazolam 0.5 mg tablet 1 tab PO TID PRN (Reason: Anxiety) hydrocodone-acetaminophen 7.5-325 mg tablet 1 tab PO TID PRN (Reason: Pain) albuterol sulfate [ProAir HFA] 90 mcg/actuation HFA aerosol inhaler 90 inh inhalation Q4H PRN (Reason: Wheezing) ondansetron HCl [Zofran] 4 mg Tablet 4 mg PO BID PRN (Reason: Nausea) Qty: 60 0RF biotin 500 mcg Capsule 1 mg PO DAILY cholecalciferol (vitamin D3) [Vitamin D3] 25 mcg (1,000 unit) Capsule 1,000 unit PO DAILY albuterol sulfate 2.5 mg /3 mL (0.083 %) solution for nebulization 2.5 mg inhalation Q4H PRN (Reason: Wheezing) cimetidine 400 mg tablet 1 tab PO DAILY PRN (Reason: Acid Reflux) fluticasone propionate 50 mcg/actuation spray,suspension 1 spray intranasal DAILY vitamin A 2,400 mcg Capsule 2,400 mcg PO DAILY cyanocobalamin (vitamin B-12) 1,000 mcg Tablet 1,000 mcg PO DAILY aspirin 81 mg Tablet,Delayed Release (Dr/Ec) 81 mg PO DAILY metoprolol succinate [Toprol XL] 25 mg tablet extended release 24 hr 25 mg PO DAILY Discharge Orders: Discharge Order (Routine); Ordered 10/14/22 Ordered By: Wilbur Caldwell Diet: Advance to usual diet Activity on Discharge: As tolerated Stand Alone Forms: Patient Portal Discharge page Care Plan Goals: Read below Health Concerns: Read below Plan of Treatment: Read below Assessment: You were admitted to the hospital for evaluation of difficulty breathing. Found to have low blood level of 4.9 requiring total of 4 units of blood transfusion improving to 8.6. Evaluated by vegetable tester but decided to defer endoscopies. Start Omeprazole daily To repeat CBC next week To follow-up with PCP outpatient for IV iron and repeat blood level on monthly basis
[2022-10-14] MEDS: ALPRAZolam 0.5 MG TABLET PO (12:06)
--- NOTE | 2022-10-14 12:16 | P.F2F_ITS ---
Service Date Service Date: 10/14/22 Encounter Date of encounter: 10/14/22 Reasons for Services Signs and symptoms assessed: Physical deconditioning Symptomatic anemia Reason for mcfp: teach disease management Reason for physical therapy: home safety and mobility and therapeutic exercises Homebound: Leaving the home is medically contraindicated at this time without the asist of a device and/or another person due th the listed conditions above and below. Reason homebound: unsteady gait / fall risk Certification: Based on the above findings, I certify that this patient is confined to the home and needs intermittent mcfp care, physical therapy and/or speech therapy, or continues to need occupational therapy. The patient is under my care, and I have initiated the establishment of the plan of care. The patient will be followed by a physician who will periodically review the plan of care. Time Spent With Patient Time: Total time managing care of this patient today ____ minutes.
[2022-10-14] MEDS: Acetaminophen 325 MG TABLET 650 MG PO (12:23)
--- NOTE | 2022-10-14 15:07 | MHC.CM.PN ---
PRINCESS 10/13/22 Patient discharged to home today with [facility]. She arranged for transportation home.
== END 2022-10-14 13:50 | disposition home health service (06) ==
LOC: HO.ED 18:35 → HO.EDOVER 21:35 → HO.IMC 10-13 00:35
PROVIDERS: Internal Medicine Gastroenterology; Physician Assistant; Admitting Provider Student in an Organized Health Care Education/Training Program; Emergency Provider Emergency Medicine; PCP Internal Medicine Geriatric Medicine; Responsible Provider Student in an Organized Health Care Education/Training Program; Visit Provider Student in an Organized Health Care Education/Training Program
DX: D64.9 Anemia, unspecified (principal); R06.02 Shortness of breath; K57.30 Diverticulosis of large intestine without perforation or abscess without bleeding; K80.20 Calculus of gallbladder without cholecystitis without obstruction; R53.81 Other malaise; R42 Dizziness and giddiness; Z20.822 Contact with and (suspected) exposure to COVID-19; D69.6 Thrombocytopenia, unspecified; I50.23 Acute on chronic systolic (congestive) heart failure; R16.0 Hepatomegaly, not elsewhere classified; K21.9 Gastro-esophageal reflux disease without esophagitis; J45.909 Unspecified asthma, uncomplicated; E66.9 Obesity, unspecified; Z68.34 Body mass index [BMI] 34.0-34.9, adult; Z79.899 Other long term (current) drug therapy; Z79.82 Long term (current) use of aspirin; Z87.891 Personal history of nicotine dependence
CPT/HCPCS: 36415; 36430; 74177; 80048; 80053; 82272; 82607; 82728; 82746; 83540; 83735; 83880; 85025; 85027; 86850; 86900; 86901; 86923; 87635; 93005; 94640; 96374; 99222; 99284; 99285; J2405; P9016; Q9967

== ENCOUNTER 2022-11-21 08:51 | Emergency (ER) | payer OTHER, SELFPAY ==
--- NOTE | ~2022-11-21 | XR_ITS ---
EXAMINATION: XR HIP, RIGHT CLINICAL INFORMATION: Fall with right hip pain COMPARISON: None TECHNIQUE: Two views of the right hip. FINDINGS: There is prominent degenerative change of the right hip joint with joint space narrowing, femoral head spurring, and subchondral sclerosis. No distinct acetabular or pubic fracture seen. The femoral neck appears to be intact. There are small spurring changes of the right greater trochanter. XR/XR hip RT w PEL1V IMPRESSION: No definite evidence for acute fracture or dislocation. Degenerative changes.
--- NOTE | ~2022-11-21 | XR_ITS ---
EXAMINATION: XR ELBOW, LEFT CLINICAL INFORMATION: Fall with left elbow pain COMPARISON: None TECHNIQUE: Two views of the left elbow. Limited evaluation FINDINGS: There is a displaced angulated fracture of the proximal ulna with soft tissue swelling. There is a possible chip fracture of the lateral distal humeral condyle. A curved double density is appreciated at the radial head potentially reflecting a fracture. XR/XR elbow LT 2V IMPRESSION: Displaced angulated fracture of the proximal ulna with soft tissue swelling. Possible chip fracture of the lateral condyle of the humerus. Findings suggestive of fracture of the radial head. CT evaluation may be helpful toward further clarification.
[2022-11-21 08:57] VITALS: BP 112/72; PULSE 80; O2SAT 97
[2022-11-21 09:04] VITALS: BP 132/47; PULSE 73; RESP 19; TEMP 36.6; O2SAT 93; BMI 30.4
--- NOTE | 2022-11-21 09:27 | ED_ITS ---
HPI - Fall General Chief Complaint: Fall Stated Complaint: FALL DOWN STEPS,L ELBOW PAIN/?DISLOC,-THIN Time Seen by Provider: 11/21/22 09:18 Source: patient, family and EMS Mode of arrival: EMS Limitations: no limitations History of Present Illness HPI Narrative: 77-year-old female came in for evaluation after fall. Patient was going down stairs missed a step and fell down 2 cement stairs landing on her left elbow, no head or neck injury, patient is complaining of left elbow pain and right hip pain, patient was a chronic hip pain get intra- articular injection every 3 months patient is due for injection today. No head injury, no LOC, no CP, no SOB. Related Data Home Medications Medication Instructions Recorded Confirmed albuterol sulfate 90 mcg/actuation 90 inh inhalation Q4H PRN Wheezing 12/07/20 10/21/22 aerosol inhaler (ProAir HFA) alprazolam 0.5 mg tablet 1 tab PO TID PRN Anxiety 12/07/20 10/21/22 hydrocodone 7.5 mg-acetaminophen 1 tab PO TID PRN Pain 12/07/20 10/21/22 325 mg tablet biotin 500 mcg capsule 1 mg PO DAILY 02/07/21 10/21/22 cholecalciferol (vitamin D3) 25 1,000 unit PO DAILY 02/07/21 10/21/22 mcg (1,000 unit) capsule (Vitamin D3) albuterol sulfate 2.5 mg/3 mL 2.5 mg inhalation Q4H PRN Wheezing 01/27/22 10/21/22 (0.083 %) solution for nebulization cimetidine 400 mg tablet 1 tab PO DAILY PRN Acid Reflux 01/27/22 10/21/22 cyanocobalamin (vitamin B-12) 1,000 mcg PO DAILY 01/27/22 10/21/22 1,000 mcg tablet fluticasone propionate 50 1 spray intranasal DAILY 01/27/22 10/21/22 mcg/actuation nasal spray,suspension vitamin A 2,400 mcg capsule 2,400 mcg PO DAILY 01/27/22 10/21/22 metoprolol succinate 25 mg 25 mg PO DAILY 05/17/22 10/21/22 tablet,extended release 24 hr (Toprol XL) Previous Rx's Medication Instructions Recorded ondansetron HCl 4 mg tablet 4 mg PO BID PRN Nausea #60 tabs 12/08/20 (Zofran) omeprazole 20 mg capsule,delayed 20 mg PO DAILY #30 caps 10/14/22 release Allergies Allergy/AdvReac Type Severity Reaction Status Date / Time amoxicillin Allergy Unknown Hives Verified 10/21/22 14:06 Penicillins [PENICILLINS] Allergy Unknown Hives Verified 10/21/22 16:00 Sulfa (Sulfonamide Allergy Unknown Hives Verified 10/21/22 16:00 Antibiotics) [SULFA (SULFONAMIDE ANTIBIOTICS)] Review of Systems Review of Systems: All other systems are reviewed and are negative Constitutional: Reports as per HPI and Reports no additional constitutional complaints Eyes: Reports as per HPI and Reports no additional eye complaints Reports system reviewed and no additional complaints, except as documented Cardiovascular: Reports as per HPI and Reports no additional cardiovascular complaints Respiratory: Reports as per HPI and Reports no additional respiratory complaints Gastrointestinal: Reports as per HPI and Reports no additional gastrointestinal complaints Genitourinary: Reports no additional female genitourinary complaints Musculoskeletal: Reports no additional musculoskeletal complaints Skin/Breast: Reports system reviewed and no additional complaints, except as docu Psychiatric: Reports no additional psychiatric complaints Endocrine: Reports no additional endocrine complaints Hematologic/Lymphatic: Reports no additional hematologic/lymphatic complaints Allergic/Immunologic: Reports no additional allergic/immunologic complaints Reports system reviewed and no additional complaints, except as documented and Reports Abnormal speech present [facility] Past Medical History Medical History Acute on chronic systolic (congestive) heart failure Anxiety Ascending aorta dilatation Asthma Atherosclerotic cardiovascular disease Cardiomyopathy COPD (chronic obstructive pulmonary disease) COPD exacerbation GERD (gastroesophageal reflux disease) Heart failure with reduced ejection fraction Non-rheumatic aortic regurgitation Non-rheumatic aortic stenosis Non-rheumatic mitral regurgitation Osteoarthritis Thrombocytopenia Surgical History Hx of colonoscopy Hx of endoscopy Hx of hysterectomy Hx of oophorectomy Hx of total knee replacement Family History Family History Sister Lung cancer Lupus Sister Lung cancer Maternal Aunt Lupus Social History Social History Household Members: None Household Members Other:: lives alone Housing: Condominium Do you presently have visiting nurse or other home services: No Unable to assess alcohol history related to: Unknown Alcohol intake: current Alcohol intake frequency: holidays/special occasions only Patient Tobacco Use Status: Former Tobacco user Quit Date: 19 YRS OLD Smoked in Last 30 Days: No Second Hand Smoke Exposure: No Use of substances other than those prescribed or required for medical reasons: No Substance Use Type: Unknown Any prior treatment program specific to substance use: No Advance Directives: No Advance Directives Information Provided: No service: No ( career [employer]) Current occupational status: employed Physical Exam Vital Signs: Vital Signs: Last Vital Signs Temp 97.8 F 11/21/22 10:32 Pulse 76 11/21/22 11:06 Resp 19 11/21/22 11:06 BP 117/48 L 11/21/22 11:06 Pulse Ox 97 11/21/22 11:06 O2 Del Method 11/21/22 11:06 BMI result Body Mass Index 30.4 Vital signs have been reviewed as appeared to be correct. Blood pressure normal. Heart rate normal. Respiration rate normal. Temperature normal. Oxygen saturation normal. Appearance: Alert. Oriented X3. No acute distress. Head: Normal external exam. Normocephalic. Atraumatic. No Gonzalez signs noted. No raccoon eyes noted Eyes: PERRLA. EOMI. Conjunctiva and sclera normal. Eyelids normal. ENT: TM's Normal. Pharynx normal. Uvula midline. Moist mucous membranes. No trismus noted. No drooling noted. No muffled voice noted. Neck: Normal inspection. Neck supple. FROM. No adenopathy. Thyroid Normal. No meningeal signs. No neck mass noted. CVS: Normal heart rate and rhythm. Heart sound normal. No murmurs noted. Pulses normal throughout. Respiratory: No respiratory distress. Painless inspiration. Breath sounds normal. No wheezes/rales/rhonchi noted. Chest nontender. No accessory muscle usage noted or decreased air movement noted. Abdomen: Soft and nontender. Bowel sounds normal in all 4 quadrants. No distention noted. No organomegaly noted. No visible injury noted. Back: No CVA tenderness. Full range of motion noted. Skin: Skin warm and dry. Normal skin color. Normal skin turgor. No rashes/lesions/lacerations noted. Extremities: Right elbow tenderness, swelling, limited range motion due to pain, neurovascularly intact. Neuro: Oriented X 3. Cranial nerve exam: II-XII are grossly intact No motor deficit. No sensory deficit. Reflexes normal. Course Course Course Narrative: Left elbow fracture. The case discussed with Dr. Gann who recommended immobilization, pain control, follow-up in the office within a week. Medications Administered Generic Name Dose Route Start Last Admin Trade Name Freq PRN Reason Stop Dose Admin Morphine Sulfate 2 mg 11/21/22 10:49 11/21/22 10:59 Morphine Sulfate 2 Mg/Ml Cartridge IVPUSH 11/21/22 10:50 2 mg ONCE ONE Administration Protocol Discontinued Medications Generic Name Dose Route Start Last Admin Trade Name Freq PRN Reason Stop Dose Admin Oxycodone HCl 5 mg 11/21/22 09:25 11/21/22 09:32 Oxycodone Hcl Immed Release 5 Mg Tablet PO 11/21/22 09:26 5 mg ONCE ONE Administration Medical Decision Making Differential Diagnosis Differential Diagnoses: The differential diagnosis associated with the pr esentation includes (Left elbow fracture, left elbow dislocation, left elbow contusion.) Consult Healthcare Provider Management of the patient was discussed with: [employer]ing Techn[employer] Demonstrator (Sanjuanita) Independent Interpretation I performed an independent interpretation of an: Plain X-Ray (Left elbow: Left elbow fracture) Radiology Impression Discussion of test interpretation with radiology: I have reviewed the radiologist's reading. Discharge Plan Discharge Clinical Impression: Elbow fracture, left Patient Disposition: Home, Self-Care Instructions: Elbow Fracture (ED) Prescriptions: No Action alprazolam 0.5 mg tablet 1 tab PO TID PRN (Reason: Anxiety) hydrocodone-acetaminophen 7.5-325 mg tablet 1 tab PO TID PRN (Reason: Pain) albuterol sulfate [ProAir HFA] 90 mcg/actuation HFA aerosol inhaler 90 inh inhalation Q4H PRN (Reason: Wheezing) ondansetron HCl [Zofran] 4 mg Tablet 4 mg PO BID PRN (Reason: Nausea) Qty: 60 0RF biotin 500 mcg Capsule 1 mg PO DAILY cholecalciferol (vitamin D3) [Vitamin D3] 25 mcg (1,000 unit) Capsule 1,000 unit PO DAILY albuterol sulfate 2.5 mg /3 mL (0.083 %) solution for nebulization 2.5 mg inhalation Q4H PRN (Reason: Wheezing) cimetidine 400 mg tablet 1 tab PO DAILY PRN (Reason: Acid Reflux) fluticasone propionate 50 mcg/actuation spray,suspension 1 spray intranasal DAILY vitamin A 2,400 mcg Capsule 2,400 mcg PO DAILY cyanocobalamin (vitamin B-12) 1,000 mcg Tablet 1,000 mcg PO DAILY omeprazole 20 mg capsule,delayed release(DR/EC) 20 mg PO DAILY Qty: 30 0RF metoprolol succinate [Toprol XL] 25 mg tablet extended release 24 hr 25 mg PO DAILY Referrals: Name,MD Joseph [Primary Care Provider] - Kaitlynn Gann MD [Physician] -
[2022-11-21] MEDS: oxyCODONE HCl Immed Release 5 MG TABLET PO (09:32)
--- NOTE | 2022-11-21 10:11 | PC.NURSE ---
+ radial pulse l arm, nad, reports slight improvement in pain, radiology will x ray her soon. alert, speech clear, ice to l elbow
[2022-11-21 10:32] VITALS: BP 127/52; PULSE 75; RESP 14; TEMP 36.6; O2SAT 93
[2022-11-21] MEDS: Morphine Sulfate 2 MG/ML CARTRIDGE IVPUSH (10:59)
[2022-11-21 11:06] VITALS: BP 117/48; PULSE 76; RESP 19; O2SAT 97
== END 2022-11-21 13:08 | disposition home or self-care (01) ==
PROVIDERS: Emergency Provider Emergency Medicine; PCP Internal Medicine Geriatric Medicine
DX: S52.092A Other fracture of upper end of left ulna, initial encounter for closed fracture (principal); W10.8XXA Fall (on) (from) other stairs and steps, initial encounter; M25.551 Pain in right hip; Y93.9 Activity, unspecified; Y92.018 Other place in single-family (private) house as the place of occurrence of the external cause; Y99.9 Unspecified external cause status
CPT/HCPCS: 29125; 73070; 73502; 96374; 99284; J2270

== ENCOUNTER 2022-11-22 06:03 | Emergency (ER) | payer OTHER, SELFPAY ==
[2022-11-22 06:19] VITALS: BP 125/62; BP 142/72; PULSE 83; PULSE 96; RESP 18; TEMP 37.3; O2SAT 92; O2SAT 97; BMI 30.4
--- NOTE | 2022-11-22 06:27 | PC.NURSE ---
Pt A&Ox4, reports 10/10 L elbow pain. Pt reports falling yesterday. Splint and sling on L arm, fingers noted to be swollen, no discoloration noted, Pt able to move fingers.
--- NOTE | 2022-11-22 06:41 | ED.EXTPRO ---
HPI - Extremity Problem General Chief complaint: Extremity Problem Stated complaint: left elbow pain Time Seen by Provider: 11/22/22 06:30 Source: patient and old records reviewed Mode of arrival: EMS Limitations: no limitations History of Present Illness HPI Narrative: 77 yo female with hx of CAD, emphysema, anemia, on chronic vicodin for back pain s/p fall on 11/21 with resulting LUE fractures ulna fx now with posterior splint and sling c/o pain in arm and fingers are swollen. she states her chronic pain medications aren't working. no numbness or blue fingers. no new injury pain is a deep constant ache MD Complaint: extremity pain Onset (ago): day(s) (1) Pain Consistency: constant Location: left and upper extremity Quality: aching and constant Radiation: none Relieving factors: immobilization Exacerbating factors: nothing Associated symptoms: denies other symptoms Context: other (s/p fall) Related Data Home Medications Medication Instructions Recorded Confirmed albuterol sulfate 90 mcg/actuation 90 inh inhalation Q4H PRN Wheezing 12/07/20 10/21/22 aerosol inhaler (ProAir HFA) alprazolam 0.5 mg tablet 1 tab PO TID PRN Anxiety 12/07/20 10/21/22 hydrocodone 7.5 mg-acetaminophen 1 tab PO TID PRN Pain 12/07/20 10/21/22 325 mg tablet biotin 500 mcg capsule 1 mg PO DAILY 02/07/21 10/21/22 cholecalciferol (vitamin D3) 25 1,000 unit PO DAILY 02/07/21 10/21/22 mcg (1,000 unit) capsule (Vitamin D3) albuterol sulfate 2.5 mg/3 mL 2.5 mg inhalation Q4H PRN Wheezing 01/27/22 10/21/22 (0.083 %) solution for nebulization cimetidine 400 mg tablet 1 tab PO DAILY PRN Acid Reflux 01/27/22 10/21/22 cyanocobalamin (vitamin B-12) 1,000 mcg PO DAILY 01/27/22 10/21/22 1,000 mcg tablet fluticasone propionate 50 1 spray intranasal DAILY 01/27/22 10/21/22 mcg/actuation nasal spray,suspension vitamin A 2,400 mcg capsule 2,400 mcg PO DAILY 01/27/22 10/21/22 metoprolol succinate 25 mg 25 mg PO DAILY 05/17/22 10/21/22 tablet,extended release 24 hr (Toprol XL) Previous Rx's Medication Instructions Recorded ondansetron HCl 4 mg tablet 4 mg PO BID PRN Nausea #60 tabs 12/08/20 (Zofran) omeprazole 20 mg capsule,delayed 20 mg PO DAILY #30 caps 10/14/22 release morphine 15 mg immediate release 15 mg PO TID PRN pain #12 tabs 11/22/22 tablet Allergies Allergy/AdvReac Type Severity Reaction Status Date / Time amoxicillin Allergy Unknown Hives Verified 10/21/22 14:06 Penicillins [PENICILLINS] Allergy Unknown Hives Verified 10/21/22 16:00 Sulfa (Sulfonamide Allergy Unknown Hives Verified 10/21/22 16:00 Antibiotics) [SULFA (SULFONAMIDE ANTIBIOTICS)] Review of Systems Review of Systems: Constitutional : No Fever, No Chills ENT/Mouth : No Ear Pain, No Hoarseness, No sore throat Eyes: No Eye Pain, No Swelling, No Redness, No Foreign Body Cardiovascular : No Chest Pain, No SOB Respiratory : No Cough, No Dyspnea Gastrointestinal : No Nausea, No Vomiting, No Diarrhea, No abdominal Pain Genitourinary : No Dysuria, No Hematuria Musculoskeletal : positive joint pain, No Myalgias, pos Joint Swelling Skin : No Skin lacerations, No rash Neuro : No Weakness, No Numbness, No Loss of Consciousness, No Dizziness, No Headache All other systems reviewed and are negative PMFSH Past Medical History Attestation statement: The following information was validated with the patient. Source: old records reviewed Medical History Acute on chronic systolic (congestive) heart failure Anxiety Ascending aorta dilatation Asthma Atherosclerotic cardiovascular disease Cardiomyopathy COPD (chronic obstructive pulmonary disease) COPD exacerbation GERD (gastroesophageal reflux disease) Heart failure with reduced ejection fraction Non-rheumatic aortic regurgitation Non-rheumatic aortic stenosis Non-rheumatic mitral regurgitation Osteoarthritis Thrombocytopenia Surgical History Hx of colonoscopy Hx of endoscopy Hx of hysterectomy Hx of oophorectomy Hx of total knee replacement Family History Family History Sister Lung cancer Lupus Sister Lung cancer Maternal Aunt Lupus Social History Social History Household Members: None Household Members Other:: lives alone Housing: Condominium Do you presently have visiting nurse or other home services: No Unable to assess alcohol history related to: Unknown Alcohol intake: current Alcohol intake frequency: holidays/special occasions only Patient Tobacco Use Status: Former Tobacco user Quit Date: 19 YRS OLD Second Hand Smoke Exposure: No Substance Use Type: Unknown Advance Directives: No Advance Directives Information Provided: Yes service: No ( career [employer]) Current occupational status: employed Physical Exam Vital Signs: Vital Signs: Last Vital Signs Temp 99.2 F 11/22/22 06:19 Pulse 83 11/22/22 06:19 Resp 18 11/22/22 06:19 BP 125/62 11/22/22 06:19 Pulse Ox 92 11/22/22 06:19 O2 Del Method 11/22/22 06:19 BMI result Body Mass Index 30.4 Appearance: Alert. Oriented X3. No acute distress. Eyes: Pupils equal, round and reactive to light. ENT: Pharynx normal. Neck: Normal inspection. Neck supple. CVS: Normal heart rate and rhythm. Pulses normal. Respiratory: No respiratory distress. Breath sounds normal. Abdomen: Soft and nontender. Skin: Skin warm and dry. Normal skin color. Normal skin turgor. Extremities: LUE fingers mildly swollen SILT intact BCR 2+ radial pulse well padded long posterior arm splint in 90 flexion with sling in place dolores wrap is a little too tight on my exam Neuro: Oriented X 3. No motor deficit. No sensory deficit. Medical Decision Making Medical Decision Making MDM Narrative: 77 yo female with hx of CAD, anemia, emphysema with breakthrough pain s/p fracture no signs of compartment syndrome normal pulses and exam mild swelling suspect dolores wrap was too tight which I released and will re wrap will add on morphine for breakthrough pain at home. can follow up with orthopedics Differential Diagnosis Differential Diagnoses: The differential diagnosis associated with the presentation includes splint malfunction, breakthrough pain, compartment syndrome Independent Interpretation I performed an independent interpretation of an: Plain X-Ray Interpretation: ulnar fracture Radiology Impression Discussion of test interpretation with radiology: I have reviewed the radiologist's reading. External Record Review External record reviewed: Inpatient record Prescription Management I considered prescription management with: Pain Medication Discharge Plan Discharge Clinical Impression: Fracture of left ulna Qualifiers: Encounter type: subsequent encounter Ulna location: proximal ulna Fracture type: closed Fracture morphology: other fracture Fracture healing: with routine healing Qualified Code(s): S52.092D - Other fracture of upper end of left ulna, subsequent encounter for closed fracture with routine healing Patient Disposition: Home, Self-Care Instructions: Arm Fracture in Adults (ED), Splint Care (ED) Additional Instructions: return to ED for any worsening symptoms or concerns return for cold, blue fingers, numb fingers, worsening pain or any other concerns. keep elevated in sling. use morphine for breakthrough pain follow up with orthopedics as planned next week Prescriptions: New morphine 15 mg tablet 15 mg PO TID PRN (Reason: pain) Qty: 12 0RF Rx Instructions: partial fill okay; Partial Fill upon patient request. No Action alprazolam 0.5 mg tablet 1 tab PO TID PRN (Reason: Anxiety) hydrocodone-acetaminophen 7.5-325 mg tablet 1 tab PO TID PRN (Reason: Pain) albuterol sulfate [ProAir HFA] 90 mcg/actuation HFA aerosol inhaler 90 inh inhalation Q4H PRN (Reason: Wheezing) ondansetron HCl [Zofran] 4 mg Tablet 4 mg PO BID PRN (Reason: Nausea) Qty: 60 0RF biotin 500 mcg Capsule 1 mg PO DAILY cholecalciferol (vitamin D3) [Vitamin D3] 25 mcg (1,000 unit) Capsule 1,000 unit PO DAILY albuterol sulfate 2.5 mg /3 mL (0.083 %) solution for nebulization 2.5 mg inhalation Q4H PRN (Reason: Wheezing) cimetidine 400 mg tablet 1 tab PO DAILY PRN (Reason: Acid Reflux) fluticasone propionate 50 mcg/actuation spray,suspension 1 spray intranasal DAILY vitamin A 2,400 mcg Capsule 2,400 mcg PO DAILY cyanocobalamin (vitamin B-12) 1,000 mcg Tablet 1,000 mcg PO DAILY omeprazole 20 mg capsule,delayed release(DR/EC) 20 mg PO DAILY Qty: 30 0RF metoprolol succinate [Toprol XL] 25 mg tablet extended release 24 hr 25 mg PO DAILY
[2022-11-22 06:56] VITALS: RESP 18
[2022-11-22] MEDS: HYDROmorphone HCl 2 MG/ML VIAL IM (06:56)
== END 2022-11-22 08:50 | disposition home or self-care (01) ==
PROVIDERS: Emergency Provider Emergency Medicine
DX: S52.092A Other fracture of upper end of left ulna, initial encounter for closed fracture (principal); I25.10 Atherosclerotic heart disease of native coronary artery without angina pectoris; W01.0XXA Fall on same level from slipping, tripping and stumbling without subsequent striking against object, initial encounter; Y93.9 Activity, unspecified; Y92.9 Unspecified place or not applicable; Y99.9 Unspecified external cause status; Z79.899 Other long term (current) drug therapy; Z87.891 Personal history of nicotine dependence
CPT/HCPCS: 96372; 99282; 99284; J1170

== ENCOUNTER 2022-11-24 08:55 | Outpatient (REF) | payer OTHER, SELFPAY ==
--- NOTE | ~2022-11-24 | XR_ITS ---
EXAMINATION: XR ELBOW, LEFT CLINICAL INFORMATION: Pain COMPARISON: 11/21/2022 TECHNIQUE: AP, lateral, and oblique views of the left elbow. FINDINGS: Redemonstration of comminuted displaced fracture of the proximal ulna with soft tissue swelling and minimally displaced fracture of the distal humeral condyle. Probable impacted fracture of the radial head with extension into the joint. Soft tissue swelling about the elbow. XR/XR elbow LT min 3V IMPRESSION: Redemonstration of comminuted displaced fracture of the proximal ulna with soft tissue swelling and minimally displaced fracture of the distal humeral condyle. Probable impacted fracture of the radial head with extension into the joint.
== END 2022-11-24 08:56 | disposition home or self-care (01) ==
LOC: HO.HOSX 08:55
PROVIDERS: Visit Provider Physician Assistant
DX: S52.002A Unspecified fracture of upper end of left ulna, initial encounter for closed fracture (principal); S52.122A Displaced fracture of head of left radius, initial encounter for closed fracture; S53.005A Unspecified dislocation of left radial head, initial encounter; X58.XXXA Exposure to other specified factors, initial encounter; Y93.9 Activity, unspecified; Y92.9 Unspecified place or not applicable; Y99.9 Unspecified external cause status
CPT/HCPCS: 29105; 73080; 99202

== ENCOUNTER 2022-12-01 14:10 | Outpatient (REF) | payer OTHER, SELFPAY ==
--- NOTE | ~2022-12-01 | CT_ITS ---
EXAMINATION: CT Left elbow CLINICAL INFORMATION: Pain. COMPARISON: Left elbow x-ray 11/24/2022. TECHNIQUE: Axial 2 mm thin and reformatted 2 minutes thin sagittal coronal images of left elbow were obtained. FINDINGS: There is a comminuted fracture proximal ulna with mild volar angulation. There is a small bone fragment seen between the radius and the ulnar prosthesis on axial image 52/9. This may be loose body, avulsed fracture from the undersurface of lateral epicondyle. No fractures involving the radial head. There is mild joint effusion. CT/CT elbow LT wo IV con IMPRESSION: Comminuted fracture proximal ulna. Small loose body at the radial ulnar space. This may be a loose body, levels fragment arising from the radial aspect of the humerus. No fracture seen involving the radial head. Please note the exam is severely limited due to patient's flexion deformity.
== END 2022-12-01 14:11 | disposition home or self-care (01) ==
LOC: HO.CT 14:10
PROVIDERS: Visit Provider Physician Assistant
DX: S53.005D Unspecified dislocation of left radial head, subsequent encounter (principal); S52.122D Displaced fracture of head of left radius, subsequent encounter for closed fracture with routine healing; S52.002D Unspecified fracture of upper end of left ulna, subsequent encounter for closed fracture with routine healing
CPT/HCPCS: 73200

== ENCOUNTER 2022-12-07 13:08 | Day surgery (SDC) | payer OTHER, SELFPAY ==
--- NOTE | 2022-12-06 08:54 | HO.ANESPROP2 ---
Documented by User: Pricilla Funk NP 12/06/22 09:18 HPI - Anesthesia Eval Consult details Narrative: 77yo F for Left Ulna Fracture ORIF Per cardiology: Post cardiac cath 05/2022. 'Her coronary arteries were normal, so at this point time there is no cardiac issue, and she would be low to intermediate risk for perioperative cardiovascular morbidity mortality. Chronic thrombocytopenia. Follows with Dr Vega. Last platelets = 48 on 10/21/22. Per heme, repeat CBC DOS and consider platelet transfusion if <50. [facility] Active Problems Active Problems: All Active Problems (Updated 11/24/22 @ 15:17 by Disha Taylor) Dislocation of left radial head (Acute) Left radial head fracture (Acute) Fracture of proximal end of left ulna (Acute) Ischemic cardiomyopathy (Acute) Angina pectoris (Acute) Emphysema lung (Acute) Anemia (Chronic) Past Medical History Medical History Acute on chronic systolic (congestive) heart failure Anxiety Ascending aorta dilatation Asthma Atherosclerotic cardiovascular disease Cardiomyopathy COPD (chronic obstructive pulmonary disease) COPD exacerbation GERD (gastroesophageal reflux disease) Heart failure with reduced ejection fraction Non-rheumatic aortic regurgitation Non-rheumatic aortic stenosis Non-rheumatic mitral regurgitation Osteoarthritis Thrombocytopenia Family History Family History Sister Lung cancer Lupus Sister Lung cancer Maternal Aunt Lupus Family history of problems with anesthesia: No Surgical History Surgical History Hx of colonoscopy Hx of endoscopy Hx of hysterectomy Hx of oophorectomy Hx of total knee replacement History of Problems with Anesthesia: No Social History Social History Household Members: None Household Members Other:: lives alone Housing: Condominium Do you presently have visiting nurse or other home services: No Unable to assess alcohol history related to: Unknown Alcohol intake: current Alcohol intake frequency: holidays/special occasions only Patient Tobacco Use Status: Former Tobacco user Quit Date: 19 YRS OLD Second Hand Smoke Exposure: No Substance Use Type: Unknown Are you DNR?: No Advance Directives: No Advance Directives Information Provided: Yes Recently lost weight without trying: No service: No ( career [employer]) Current occupational status: employed Meds Allergies Allergy/AdvReac Type Severity Reaction Status Date / Time amoxicillin Allergy Unknown Hives Verified 12/01/22 15:04 Penicillins [PENICILLINS] Allergy Unknown Hives Verified 12/01/22 15:04 Sulfa (Sulfonamide Allergy Unknown Hives Verified 12/01/22 15:04 Antibiotics) [SULFA (SULFONAMIDE ANTIBIOTICS)] Home Medications Medication Instructions Recorded Confirmed Last Taken Type albuterol sulfate 90 mcg/actuation 90 inh inhalation Q4H PRN Wheezing 12/07/20 10/21/22 10/12/22 History aerosol inhaler (ProAir HFA) alprazolam 0.5 mg tablet 1 tab PO TID PRN Anxiety 12/07/20 10/21/22 10/12/22 History hydrocodone 7.5 mg-acetaminophen 1 tab PO TID PRN Pain 12/07/20 10/21/22 10/12/22 History 325 mg tablet biotin 500 mcg capsule 1 mg PO DAILY 02/07/21 10/21/22 10/12/22 History cholecalciferol (vitamin D3) 25 1,000 unit PO DAILY 02/07/21 10/21/22 10/12/22 History mcg (1,000 unit) capsule (Vitamin D3) albuterol sulfate 2.5 mg/3 mL 2.5 mg inhalation Q4H PRN Wheezing 01/27/22 10/21/22 10/12/22 History (0.083 %) solution for nebulization cimetidine 400 mg tablet 1 tab PO DAILY PRN Acid Reflux 01/27/22 10/21/22 10/12/22 History cyanocobalamin (vitamin B-12) 1,000 mcg PO DAILY 01/27/22 10/21/22 10/12/22 History 1,000 mcg tablet fluticasone propionate 50 1 spray intranasal DAILY 01/27/22 10/21/22 10/12/22 History mcg/actuation nasal spray,suspension vitamin A 2,400 mcg capsule 2,400 mcg PO DAILY 01/27/22 10/21/22 10/12/22 History metoprolol succinate 25 mg 25 mg PO DAILY 05/17/22 10/21/22 10/12/22 History tablet,extended release 24 hr (Toprol XL) Exam Exam Date and Time: December 06, 2022 0854 Pertinent Lab Results Pertinent Lab Results: Laboratory Tests 10/14/22 06:14 Sodium 144 Potassium 4.2 Chloride 110 H Carbon Dioxide 26 BUN 17 H Creatinine 0.82 Narrative Narrative: EKG 09/2022 Vent. Rate : 085 BPM ? ? Atrial Rate : 085 BPM ?? P-R Int : 164 ms? QRS Dur : 088 ms ? ? QT Int : 368 ms ? ? ? P-R-T Axes : 064 -24 -06 degrees ?? QTc Int : 437 ms ? Artifact in tracing Sinus rhythm with occasional Premature ventricular complexes Inferior infarct (cited on or before 27-JAN-2022) Abnormal ECG When compared with ECG of 12-APR-2022 14:18, Premature ventricular complexes are now Present Cardiac cath 05/2022 No sigificant CAD Non ishcemic CMP ECHO 01/2022 Conclusions: - The left ventricular systolic function is mildly decreased.? ? The visually estimated ejection fraction is between 45-50%.? ? ? - The basal inferior, mid inferior, mid inferoseptal, and basal? inferolateral segments are akinetic. ? - Mildly increased right ventricular cavity size.? - There is moderate aortic valve stenosis. ? - There is mild mitral valve regurgitation.? - Mild pulmonary hypertension is present.? - There is mild dilatation of the ascending aorta measuring 4.10 cm.? Assessment and Plan Assessment Anesthesia Assessment: Chart Reviewed Final Anesthetic Review Family History of Problems with Anesthesia: No History of Problems with Anesthesia: No Documented by User: Mary Javed MD 12/07/22 13:18 PMFSH Past Medical History Medical History Acute on chronic systolic (congestive) heart failure Anxiety Ascending aorta dilatation Asthma Atherosclerotic cardiovascular disease Cardiomyopathy COPD (chronic obstructive pulmonary disease) COPD exacerbation GERD (gastroesophageal reflux disease) Heart failure with reduced ejection fraction Non-rheumatic aortic regurgitation Non-rheumatic aortic stenosis Non-rheumatic mitral regurgitation Osteoarthritis Thrombocytopenia Family History Family History Sister Lung cancer Lupus Sister Lung cancer Maternal Aunt Lupus Surgical History Surgical History Hx of colonoscopy Hx of endoscopy Hx of hysterectomy Hx of oophorectomy Hx of total knee replacement Social History Social History Household Members: None Household Members Other:: lives alone Housing: Condominium Do you presently have visiting nurse or other home services: No Unable to assess alcohol history related to: Unknown Alcohol intake: current Alcohol intake frequency: holidays/special occasions only Patient Tobacco Use Status: Former Tobacco user Quit Date: 19 YRS OLD Second Hand Smoke Exposure: No Substance Use Type: Unknown Are you DNR?: No Advance Directives: No Advance Directives Information Provided: Yes Recently lost weight without trying: No service: No ( career [employer]) Current occupational status: employed Meds Allergies Allergy/AdvReac Type Severity Reaction Status Date / Time amoxicillin Allergy Unknown Hives Verified 12/01/22 15:04 Penicillins [PENICILLINS] Allergy Unknown Hives Verified 12/01/22 15:04 Sulfa (Sulfonamide Allergy Unknown Hives Verified 12/01/22 15:04 Antibiotics) [SULFA (SULFONAMIDE ANTIBIOTICS)] Home Medications Medication Instructions Recorded Confirmed Last Taken Type albuterol sulfate 90 mcg/actuation 90 inh inhalation Q4H PRN Wheezing 12/07/20 10/21/22 10/12/22 History aerosol inhaler (ProAir HFA) alprazolam 0.5 mg tablet 1 tab PO TID PRN Anxiety 12/07/20 10/21/22 10/12/22 History hydrocodone 7.5 mg-acetaminophen 1 tab PO TID PRN Pain 12/07/20 10/21/22 10/12/22 History 325 mg tablet biotin 500 mcg capsule 1 mg PO DAILY 02/07/21 10/21/22 10/12/22 History cholecalciferol (vitamin D3) 25 1,000 unit PO DAILY 02/07/21 10/21/22 10/12/22 History mcg (1,000 unit) capsule (Vitamin D3) albuterol sulfate 2.5 mg/3 mL 2.5 mg inhalation Q4H PRN Wheezing 01/27/22 10/21/22 10/12/22 History (0.083 %) solution for nebulization cimetidine 400 mg tablet 1 tab PO DAILY PRN Acid Reflux 01/27/22 10/21/22 10/12/22 History cyanocobalamin (vitamin B-12) 1,000 mcg PO DAILY 01/27/22 10/21/22 10/12/22 History 1,000 mcg tablet fluticasone propionate 50 1 spray intranasal DAILY 01/27/22 10/21/22 10/12/22 History mcg/actuation nasal spray,suspension vitamin A 2,400 mcg capsule 2,400 mcg PO DAILY 01/27/22 10/21/22 10/12/22 History metoprolol succinate 25 mg 25 mg PO DAILY 05/17/22 10/21/22 10/12/22 History tablet,extended release 24 hr (Toprol XL) Exam Airway Mallampati Class: II TM Dist: >3cm Neck ROM: Limited Heart: rrr Lungs: cta Assessment and Plan Assessment Anesthesia Assessment: Anesthesia Plan Discussed Final Anesthetic Review NPO: Yes ASA Class: III Final Preanesthetic Review: No Changes in Pt Med Stat and Meds/Allgs Chart Reviewed Patient Risk: Intermediate Procedure Risk: Intermediate Anesthetic Plan Anesthetic Plan: Other (Await CBC and plt counts; needs plt rransfusion prior to surgery if counts less than 50 k)
[2022-12-07] VITALS (14 sets, daily range): BP systolic 145–160; BP diastolic 63–83; PULSE 78–92; RESP 16–20; TEMP 36.1–37; O2SAT 90–99; BMI 30.4
--- NOTE | ~2022-12-07 | FL_ITS ---
EXAMINATION: XR FLUOROSCOPY WITH IMAGES CLINICAL INFORMATION: Fracture proximal ulnar, reduction. COMPARISON: Radiographs left elbow 11/24/2022 CT left elbow 12/01/2022 TECHNIQUE: Fluoroscopy Supervised By: Dr. Raymond Sorto. Fluoroscopy Time: 0.9 minutes. Cumulative Dose: 3.06 mGy. DAP: 0.0532 Gycm2. Images: 4. FINDINGS: Proximal ulnar fracture is reduced with compression plate and multiple screws. The hardware is intact. Fracture fragments are in near-anatomic alignment. There is no dislocation. Small loose body seen on prior imaging is not clearly visualized on the fluoroscopic spot views, possibly removed. FL/FL guidance in OR IMPRESSION: Status post open reduction internal fixation proximal ulnar fracture. Hardware intact.
--- NOTE | 2022-12-07 13:20 | MHC.SHP ---
Pre-Procedural Eval Section A Date of Service: 12/07/22 The patient is an INPATIENT: No Changes since office visit: No Cold of Flu in the past 2 weeks, No New Medical Problems, No Changes in Medication and No Patient answered all questions The History & Physical has been completed within 30 days and I have reviewed it.: Yes Section B Chief Complaint: Unspecified fracture of upper end of left ulna, in Allergies: Allergies Allergy/AdvReac Type Severity Reaction Status Date / Time amoxicillin Allergy Unknown Hives Verified 12/01/22 15:04 Penicillins [PENICILLINS] Allergy Unknown Hives Verified 12/01/22 15:04 Sulfa (Sulfonamide Allergy Unknown Hives Verified 12/01/22 15:04 Antibiotics) [SULFA (SULFONAMIDE ANTIBIOTICS)] Plan I have reviewed the history and physical and performed a pertinent physical examination on my patient. No changes have occurred unless specified. Time Spent With Patient Time: Total time managing care of this patient today ____ minutes.
[2022-12-07 13:29] LABS: MANUAL DIFF FLAG NO
[2022-12-07 13:36] LABS: Basophils Absolute Auto 0.1 X10*3/uL (0.0-0.2); Basophils Percent Auto 0.9 % (0-2); Eosinophils Absolute Auto 0.1 X10*3/uL (0.0-0.4); Eosinophils Percent Auto 1.6 % (0-4); Hematocrit 26.2 % (37.0-47.0); Hemoglobin 7.5 g/dl (12.0-16.0); Imm Gran Abs Auto 0.01 X10*3/uL (0.00-0.03); Imm Gran Pct Auto 0.2 % (0.0-0.4); Lymphocytes Absolute Auto 0.7 X10*3/uL (1.2-4.9); Lymphocytes Percent Auto 11.9 % (20-40); Mean Corpuscular HGB Conc 28.6 g/dl (31.0-35.0); Mean Corpuscular Hemoglobin 23.8 pg (27.0-33.0); Mean Corpuscular Volume 83.2 fL (80.0-98.0); Monocytes Absolute Auto 0.5 X10*3/uL (0.1-1.2); Neutrophils Absolute Auto 4.3 x10*3/uL (2.0-8.3); Neutrophils Percent Auto 76.4 % (45-73); Red Blood Count 3.15 X10*6/uL (4.20-5.50); Red Cell Distribution Width 19.8 % (11.0-16.0); White Blood Count 5.6 X10*3/uL (4.8-10.8)
[2022-12-07 13:37] LABS: Platelet Count 69 X10*3/uL (160-400)
[2022-12-07] MEDS: Lactated Ringers 1,000 ML 50 ML IVCONT (13:38)
[2022-12-07 14:14] LABS: IDNOW Serial# 9DB6401D
[2022-12-07 14:15] LABS: COVID-19 Test Negative (Negative)
--- NOTE | 2022-12-07 15:54 | PM.OP ---
Brief Operative Note Date of Service: 12/07/22 Pre-op diagnosis: left olecranon and radial head fracture/dislocation ([place]) Post-op diagnosis: same Procedure: ORIF olecranon Removal loose body, radiocapitellar joint Implants: Dawn olecranon locking plate Surgeon: Raymond Sorto MD Anesthesia: GETA and regional Was an Head Of Transport Logistics used for this Procedure?: Yes Head Of Transport Logistics: Victoria Lrason Estimated blood loss (mL): 20 Tourniquet time (min): 70 IV fluids (mL): 1,000 Pathology: none sent Condition: stable Disposition: PACU
[2022-12-07] MEDS: oxyCODONE HCl Immed Release 5 MG TABLET PO (16:20)
[2022-12-07] MEDS: fentaNYL citrate/PF 100 MCG/2 ML VIAL 25 MCG IVPUSH ×2 (16:26→16:31)
[2022-12-07 16:52] LABS: Hemoglobin 7.3 g/dl (12.0-16.0); SCAN SMEAR FLAG 1
[2022-12-07 16:54] LABS: Basophils Absolute Auto 0.1 X10*3/uL (0.0-0.2); Basophils Percent Auto 0.7 % (0-2); Eosinophils Absolute Auto 0.1 X10*3/uL (0.0-0.4); Eosinophils Percent Auto 0.8 % (0-4); Hematocrit 25.3 % (37.0-47.0); Imm Gran Abs Auto 0.02 X10*3/uL (0.00-0.03); Imm Gran Pct Auto 0.3 % (0.0-0.4); Lymphocytes Absolute Auto 0.4 X10*3/uL (1.2-4.9); MANUAL DIFF FLAG SCAN; Mean Corpuscular HGB Conc 28.9 g/dl (31.0-35.0); Mean Corpuscular Volume 83.2 fL (80.0-98.0); Monocytes Absolute Auto 0.3 X10*3/uL (0.1-1.2); Monocytes Percent Auto 3.4 % (2-11); Neutrophils Absolute Auto 6.8 x10*3/uL (2.0-8.3); Neutrophils Percent Auto 89.8 % (45-73); PLT CLUMP 1; Red Blood Count 3.04 X10*6/uL (4.20-5.50); Red Cell Distribution Width 19.8 % (11.0-16.0)
[2022-12-07 17:19] LABS: PLT ABN DIST 1; Platelet Count 70 X10*3/uL (160-400); White Blood Count 7.5 X10*3/uL (4.8-10.8)
[2022-12-07 17:25] LABS: SLIDE REVIEW VERIFIED
[2022-12-07] MEDS: HYDROmorphone HCl 0.5 MG/0.5 ML SYRINGE 0.25 MG IVPUSH ×4 (17:26→23:47)
[2022-12-07] MEDS: Lactated Ringers 1,000 ML 100 ML IVCONT (18:33)
--- NOTE | 2022-12-07 19:57 | PHA.MEDREC ---
Pharmacy Consult ? Medication Reconciliation Pharmacy has completed the medication reconciliation. SPOKE WITH THE PATIENT ON 3RD FLOOR. SHE WAS ABLE TO RECALL ALL OF HER MEDICATIONS. SHE TAKES BUPROPION ONLY DAILY ( NOT BID). ON VICODIN AT HOME BUT HAS BEEN PRESCRIBED OTHER PAIN MEDS SINCE BREAKING HER ARM
[2022-12-07] MEDS: ceFAZolin Sodium/Dextrose,Iso 2 GM/50 ML PIGGYBACK IV (20:10)
[2022-12-07] MEDS: oxyCODONE HCl Immed Release 5 MG TABLET 10 MG PO (20:11)
[2022-12-07] MEDS: oxyCODONE HCl ER 10 MG TAB.ER.12H PO (21:41)
[2022-12-07] MEDS: Celecoxib 200 MG CAPSULE PO (21:41)
[2022-12-07] MEDS: Docusate Sodium 100 MG CAPSULE PO (21:41)
[2022-12-07] MEDS: ALPRAZolam 0.5 MG TABLET PO (23:47)
--- NOTE | 2022-12-07 23:57 | P.CONHOSP_ITS ---
History of Present Illness Data of Consult Service Date: 12/07/22 Primary Care Provider: Joseph Magana MD HPI Reason for consult: Medical management, low platelets Pt is a 77-year-old female with a PMH significant for?chronic ITP, ischemic cardiomyopathy, anxiety, GERD, chronic HFrEF, COPD/chronic bronchitis/asthma ?who?is admitted to the hospital s/p surgical repair of left radial head dislocation and fracture. Patient has no acute complaints other than severe pain at surgical site. Patient denies chest pain/pressure palpitations. No shortness of breath. Denies fatigue, lightheadedness, dizziness. No fever, chills, nausea, vomiting, abdominal pain. Review of Systems Review of Systems: Left arm pain Patient has no other acute complaints at this time Yes all other systems are re viewed and are negative [facility] Medical History Acute on chronic systolic (congestive) heart failure Anxiety Ascending aorta dilatation Asthma Atherosclerotic cardiovascular disease Cardiomyopathy COPD (chronic obstructive pulmonary disease) COPD exacerbation GERD (gastroesophageal reflux disease) Heart failure with reduced ejection fraction Non-rheumatic aortic regurgitation Non-rheumatic aortic stenosis Non-rheumatic mitral regurgitation Osteoarthritis Thrombocytopenia Family History Sister Lung cancer Lupus Sister Lung cancer Maternal Aunt Lupus Surgical History Hx of colonoscopy Hx of endoscopy Hx of hysterectomy Hx of oophorectomy Hx of total knee replacement Social History Household Members: None Household Members Other:: lives alone Housing: Condominium Do you presently have visiting nurse or other home services: No Unable to assess alcohol history related to: Unknown Alcohol intake: current Alcohol intake frequency: holidays/special occasions only Patient Tobacco Use Status: Former Tobacco user Quit Date: 19 YRS OLD Second Hand Smoke Exposure: No Use of substances other than those prescribed or required for medical reasons: No Substance Use Type: Unknown Currently Displaying Signs/Symptoms of Drug Intoxication Withdrawal: No Have you been hit, kicked, punched, or otherwise hurt by someone within the past year? If so, by whom?: No Do you feel safe in your current relationship?: Yes Is there a partner from a previous relationship who is making you feel unsafe now?: No Are you made to feel afraid or neglected: No Are you DNR?: No Advance Directives: No Advance Directives Information Provided: Yes Do you have thoughts of harming others: None Do you have a plan to hurt others: No Plan Recently lost weight without trying: No Nutrition Risks: No Nutritional Risk Patient : No service: No ( career [place]) Current occupational status: employed Meds Allergies Allergy/AdvReac Type Severity Reaction Status Date / Time amoxicillin Allergy Unknown Hives Verified 12/01/22 15:04 Penicillins [PENICILLINS] Allergy Unknown Hives Verified 12/01/22 15:04 Sulfa (Sulfonamide Allergy Unknown Hives Verified 12/01/22 15:04 Antibiotics) [SULFA (SULFONAMIDE ANTIBIOTICS)] Active Medications: Current Medications Acetaminophen (Acetaminophen 325 Mg Tablet) 650 mg PO Q6H PRN PRN Reason: Pain, Mild (Pain Scale 1-3) Acetaminophen (Acetaminophen 325 Mg Tablet) 650 mg PO ONCE PRN PRN Reason: Pain, Mild (Pain Scale 1-3) Albuterol Sulfate (Albuterol Sulfate (0.083%) 2.5 Mg/3 Ml Vial.Neb) 2.5 mg INHALE ONCE PRN PRN Reason: Shortness of Breath/Wheezing Albuterol Sulfate (Albuterol Sulfate (0.083%) 2.5 Mg/3 Ml Vial.Neb) 2.5 mg INHALE Q6H PRN PRN Reason: Wheezing Alprazolam (Alprazolam 0.5 Mg Tablet) 0.5 mg PO TID PRN PRN Reason: Anxiety Last Admin: 12/07/22 23:47 Dose: 0.5 mg Bupropion HCl (Bupropion Hcl Xl 150 Mg Tab.Er.24h) 1 mg PO DAILY [facility] Celecoxib (Celecoxib 200 Mg Capsule) 200 mg PO BID [facility] Last Admin: 12/07/22 21:41 Dose: 200 mg Cyanocobalamin (Cyanocobalamin (Vitamin B-12) 1,000 Mcg Tablet) 1,000 mcg PO DAILY [facility] Docusate Sodium (Docusate Sodium 100 Mg Capsule) 100 mg PO BID [facility] Last Admin: 12/07/22 21:41 Dose: 100 mg Famotidine (Famotidine 20 Mg Tablet) 20 mg PO DAILY PRN PRN Reason: Acid Reflux Fentanyl (Fentanyl Citrate/Pf 100 Mcg/2 Ml Vial) 25 mcg IVPUSH Q5M PRN; Protocol PRN Reason: Pain, Moderate (Pain Scale 4-6 Last Admin: 12/07/22 16:31 Dose: 25 mcg Fluticasone Propionate (Fluticasone Propionate Nasal 16 Gm [place]) 1 spray NOSTRIL-B DAILY [facility] Hydromorphone HCl (Hydromorphone Hcl 0.5 Mg/0.5 Ml Syringe) 0.25 mg IVPUSH Q4H PRN; Protocol PRN Reason: Pain, Severe (Pain Scale 7-10) Last Admin: 12/07/22 23:47 Dose: 0.25 mg Hydromorphone HCl (Hydromorphone Hcl 0.5 Mg/0.5 Ml Syringe) 0.25 mg IVPUSH Q5M PRN; Protocol PRN Reason: Pain, Severe (Pain Scale 7-10) Last Admin: 12/07/22 17:31 Dose: 0.25 mg Lactated Ringer's (Lr) 1,000 mls @ 50 mls/hr IVCONT .Q20H [facility] Last Admin: 12/07/22 13:38 Dose: 50 mls/hr Lactated Ringer's (Lr) 1,000 mls @ 100 mls/hr IVCONT .Q10H [facility] Last Admin: 12/07/22 18:33 Dose: 100 mls/hr Metoprolol Succinate (Metoprolol Succinate Er 25 Mg Tab.Er.24h) 25 mg PO DAILY [facility]; Protocol Ondansetron HCl (Ondansetron Hcl 4 Mg/2 Ml Vial) 4 mg IVPUSH ONCE PRN PRN Reason: Nausea and Vomiting Ondansetron HCl (Ondansetron Hcl 4 Mg/2 Ml Vial) 4 mg IVPUSH Q8H PRN PRN Reason: Nausea and Vomiting Oxycodone HCl (Oxycodone Hcl Immed Release 5 Mg Tablet) 10 mg PO Q4H PRN PRN Reason: Pain, Moderate (Pain Scale 4-6 Last Admin: 12/07/22 20:11 Dose: 10 mg Oxycodone HCl (Oxycodone Hcl Er 10 Mg Tab.Er.12h) 10 mg PO BID [facility] Last Admin: 12/07/22 21:41 Dose: 10 mg Sodium Chloride (0.9 % Sodium Chloride Flush 3 Ml Syringe) 3 ml IVFLUSH QSHIFT [facility] Vitamin D (Cholecalciferol (Vitamin D3) 25 Mcg Tablet) 25 mcg PO DAILY [facility] Home Medications Medication Instructions Recorded Confirmed Last Taken Type albuterol sulfate 90 mcg/actuation 1 - 2 puff inhalation Q4-6H PRN 12/07/20 12/07/22 10/12/22 History aerosol inhaler (ProAir HFA) Wheezing alprazolam 0.5 mg tablet 1 tab PO TID PRN Anxiety 12/07/20 12/07/22 10/12/22 History hydrocodone 7.5 mg-acetaminophen 1 tab PO Q6H PRN Pain (Scale Score 12/07/20 12/07/22 10/12/22 History 325 mg tablet 7-10) cholecalciferol (vitamin D3) 25 1,000 unit PO DAILY 02/07/21 12/07/22 10/12/22 History mcg (1,000 unit) capsule (Vitamin D3) albuterol sulfate 2.5 mg/3 mL 2.5 mg inhalation Q6H PRN Wheezing 01/27/22 12/07/22 10/12/22 History (0.083 %) solution for nebulization cimetidine 400 mg tablet 1 tab PO DAILY PRN Acid Reflux 01/27/22 12/07/22 10/12/22 History cyanocobalamin (vitamin B-12) 1,000 mcg PO DAILY 01/27/22 12/07/22 10/12/22 History 1,000 mcg tablet fluticasone propionate 50 1 spray intranasal DAILY 01/27/22 12/07/22 10/12/22 History mcg/actuation nasal spray,suspension vitamin A 2,400 mcg capsule 2,400 mcg PO DAILY 01/27/22 12/07/22 10/12/22 History metoprolol succinate 25 mg 25 mg PO DAILY 05/17/22 12/07/22 10/12/22 History tablet,extended release 24 hr (Toprol XL) biotin 10,000 mcg chewable tablet 10,000 mcg PO DAILY 12/07/22 12/07/22 Unknown History (Hair, Skin and Nails (biotin)) bupropion HCl 150 mg tablet,12 hr 1 tab PO DAILY 12/07/22 12/07/22 Unknown History sustained-release ondansetron HCl 4 mg tablet 1 tab PO Q8H PRN Nausea And 12/07/22 12/07/22 Unknown History Vomiting Physical Exam Vital Signs and Narrative: Vital Signs: Last Vital Signs Temp 98.6 F 12/07/22 19:51 Pulse 92 12/07/22 19:51 Resp 18 12/07/22 19:51 BP 160/70 H 12/07/22 19:51 Pulse Ox 98 12/07/22 19:51 O2 Del Method 12/07/22 19:51 O2 Flow Rate 2 12/07/22 19:51 Oxygen Flow Rate 2 12/07/22 17:15 BMI result Body Mass Index 30.4 General: AOx3, no acute distress Resp: CTA bilaterally CVS: S1, S2, 3/6 systolic murmur heard in aortic region GI: +BS, NT, no distention Skin: No rash Neuro: Cranial nerves II-XII grossly intact bilaterally. Motor grossly intact bilaterally. Pt capable of moving all fingers of left upper extremity, sensation intact Extremities: No edema. Psych: Appropriate affect Results Labs 12/07/22 16:40 Labs: Laboratory Results - last 24 hr 12/07/22 12/07/22 12/07/22 13:12 13:25 13:41 MCV 83.2 MCH 23.8 L MCHC 28.6 L RDW 19.8 H Plt Count 69 L D MPV Not Reportable Immature Gran % (Auto) 0.2 Neut % (Auto) 76.4 H Lymph % (Auto) 11.9 L [place] % (Auto) 9.0 Eos % (Auto) 1.6 Baso % (Auto) 0.9 Lymph # (Auto) 0.7 L [place] # (Auto) 0.5 Eos # (Auto) 0.1 Baso # (Auto) 0.1 Abs Immat Gran (auto) 0.01 Absolute Neuts (auto) 4.3 Absolute Nucleated RBC 0.000 Nucleated RBC % (auto) 0.0 Smear Tech's Comments COVID-19 ([facility]) Negative COVID-19 Clin Com See Note Blood Type O Positive Antibody Screen NEGATIVE 12/07/22 16:40 MCV 83.2 MCH 24.0 L MCHC 28.9 L RDW 19.8 H Plt Count 70 L MPV Not Reportable Immature Gran % (Auto) 0.3 Neut % (Auto) 89.8 H Lymph % (Auto) 5.0 L [place] % (Auto) 3.4 Eos % (Auto) 0.8 Baso % (Auto) 0.7 Lymph # (Auto) 0.4 L [place] # (Auto) 0.3 Eos # (Auto) 0.1 Baso # (Auto) 0.1 Abs Immat Gran (auto) 0.02 Absolute Neuts (auto) 6.8 Absolute Nucleated RBC 0.000 Nucleated RBC % (auto) 0.0 Smear Tech's Comments VERIFIED COVID-19 ([facility]) COVID-19 Clin Com Blood Type Antibody Screen Assessment and Plan (1) Left radial head fracture: Status: Acute (2) Chronic ITP (idiopathic thrombocytopenia): Status: Acute Plan Pt is a 77-year-old female with a PMH significant for?chronic ITP, ischemic cardiomyopathy, anxiety, GERD, chronic HFrEF, COPD/chronic bronchitis/asthma ?who?is admitted to the hospital s/p surgical repair of left radial head dislocation and fracture. Patient has no acute complaints other than severe pain at surgical site. Left radial head dislocation and fracture Plan as per Orthopedics Chronic idiopathic thrombocytopenia Patient's platelets 70, stable at baseline No need for platelet transfusion at this time Follow CBC Anemia of chronic disease H&H 7.3/25.3 Pt asymptomatic: no lightheadedness, dizziness, fatigue Recheck CBC in the morning, transfuse as necessary Ischemic cardiomyopathy Followed by Dr. Giordano in cardiology Continue metoprolol Cardiac diet GERD Continue home meds Asthma Continue home inhalers Anxiety/depression Continue alprazolam, bupropion Thank you for allowing us to participate in the care of this patient. We will continue to follow along during her hospital stay. Please let us know if there are any acute complaints or questions. Time Spent With Patient Time: Total time managing care of this patient today ____ minutes.
[2022-12-08] VITALS (10 sets, daily range): BP systolic 86–136; BP diastolic 6–87; PULSE 84–113; RESP 17–18; TEMP 36.7–37.7; O2SAT 93–98; BMI 30.4
[2022-12-08] MEDS: oxyCODONE HCl Immed Release 5 MG TABLET 10 MG PO ×3 (02:29→11:05)
[2022-12-08] MEDS: HYDROmorphone HCl 0.5 MG/0.5 ML SYRINGE 0.25 MG IVPUSH ×5 (03:33→23:22)
[2022-12-08] MEDS: Lactated Ringers 1,000 ML 100 ML IVCONT (03:36)
[2022-12-08 07:04] LABS: Basophils Percent Auto 0.4 % (0-2); Eosinophils Percent Auto 0.2 % (0-4); Hematocrit 24.2 % (37.0-47.0); Imm Gran Abs Auto 0.03 X10*3/uL (0.00-0.03); Imm Gran Pct Auto 0.4 % (0.0-0.4); Lymphocytes Absolute Auto 0.7 X10*3/uL (1.2-4.9); Lymphocytes Percent Auto 8.6 % (20-40); Mean Corpuscular HGB Conc 28.5 g/dl (31.0-35.0); Mean Corpuscular Hemoglobin 23.6 pg (27.0-33.0); Mean Corpuscular Volume 82.9 fL (80.0-98.0); Monocytes Absolute Auto 1.1 X10*3/uL (0.1-1.2); Monocytes Percent Auto 12.5 % (2-11); Neutrophils Absolute Auto 6.7 x10*3/uL (2.0-8.3); Neutrophils Percent Auto 77.9 % (45-73); Red Blood Count 2.92 X10*6/uL (4.20-5.50); Red Cell Distribution Width 19.7 % (11.0-16.0)
[2022-12-08 07:16] LABS: Anion Gap 14 (12-20); Blood Urea Nitrogen 13 mg/dL (9-16); Calcium 8.2 mg/dL (8.4-10.2); Carbon Dioxide 24 mmol/L (22-29); Chloride 106 mmol/L (96-108); Creatinine Clr Calc Pharmacy 62.7; Estimated Glomerular Filt Rate > 60; Glucose Fasting 110 mg/dL (60-99); Potassium 4.3 mmol/L (3.3-5.1); Sodium 140 mmol/L (135-145)
[2022-12-08 08:46] LABS: Hemoglobin 6.9 g/dl (12.0-16.0); White Blood Count 8.5 X10*3/uL (4.8-10.8)
[2022-12-08 08:47] LABS: Platelet Count 77 X10*3/uL (160-400)
[2022-12-08] MEDS: oxyCODONE HCl ER 10 MG TAB.ER.12H PO ×2 (09:24→20:33)
[2022-12-08] MEDS: Cyanocobalamin (Vitamin B-12) 1,000 MCG TABLET 1000 MCG PO (09:24)
[2022-12-08] MEDS: Metoprolol Succinate ER 25 MG TAB.ER.24H PO (09:25)
[2022-12-08] MEDS: Docusate Sodium 100 MG CAPSULE PO ×2 (09:25→20:33)
[2022-12-08] MEDS: Celecoxib 200 MG CAPSULE PO ×2 (09:25→20:33)
[2022-12-08] MEDS: Cholecalciferol (Vitamin D3) 25 MCG TABLET PO (09:26)
[2022-12-08] MEDS: Fluticasone Propionate Nasal 16 GM SPRAY 1 SPRAY NOSTRIL-B (09:27)
[2022-12-08] MEDS: 0.9 % Sodium Chloride Flush 3 ML SYRINGE IVFLUSH ×3 (09:27→20:33)
[2022-12-08] MEDS: buPROPion HCl XL 150 MG TAB.ER.24H PO (09:35)
--- NOTE | 2022-12-08 09:35 | P.PNOP_ITS ---
Subjective Subjective Date of Service: 12/08/22 Interval history: POD 1 s/p ORIF left elbow no overnight events resting in bed eating breakfast denies sob, cp , palpitations Physical Exam Vital Signs: Vital Signs: Last Vital Signs Temp 98.9 F 12/08/22 07:38 Pulse 97 12/08/22 07:38 Resp 18 12/08/22 07:38 BP 128/58 L 12/08/22 07:38 Pulse Ox 95 12/08/22 07:38 O2 Del Method Room Air 12/08/22 07:38 O2 Flow Rate 2 12/08/22 03:32 Oxygen Flow Rate 2 12/07/22 17:15 BMI result Body Mass Index 30.4 Const: General: cooperative, healthy appearing and no acute distress Resp: Effort & Inspection: normal respiratory effort and able to speak in complete sentences Cardio: Rate: regular rate Peripheral pulses: Peripheral pulses 2+ throughout GI: Palpation (GI): Soft to palpation Skin: General skin exam: no rashes or lesions noted Extrem: Other: left elbow splint intact, able to move all digits, NVI Procedures Date of Service Date of Service: 12/08/22 Progress Note: A&P Assessment and plan (1) Fracture of proximal end of left ulna: Status: Acute (2) Left radial head fracture: Status: Acute Assessment and Plan: * Continue pain mgmnt * keep splint clean , dry and intact- elevate and move fingers * Dispo planning-Pending PT eval, pain mgmnt Time Spent With Patient Time: Total time managing care of this patient today ____ minutes. Quality Stroke Does the patient have a stroke diagnosis?: No VTE Prior VTE?: No VTE Risk Level:: Surgical - moderate VTE Device Contraindication: N/A - Device Ordered VTE Drug Contraindication: N/A - Med Ordered
--- NOTE | 2022-12-08 09:53 | HO.POSTANES ---
Post Anesthesia Evaluation Post Anesthesia Evaluation Vital Signs: Vital Signs Temp Pulse Resp BP Pulse Ox O2 Del Method O2 Flow Rate 12/08/22 07:38 98.9 F 97 18 128/58 L 95 Room Air 12/08/22 03:32 98.1 F 113 H 17 128/87 95 Nasal Cannula 2 Anesthesia: Nerve Block and General Mental Status: Awake Nausea/Vomiting: None Hydration: Adequate Anesthesia-Related Issues: No Anes. Related Issues Comments: Patient on chronic opioids , pain difficult to control being managed by primary service. Patient also with chronic Anemia and thrombocytopenia , Hospitalist service following and managing
[2022-12-08] MEDS: Acetaminophen 325 MG TABLET 650 MG PO (11:05)
--- NOTE | 2022-12-08 13:02 | W.PM.OPN ---
Operative Note Operative Note Date of Service: 12/07/22 Narrative: Date of Service: 12/07/22 Pre-op diagnosis: left olecranon and radial head fracture/dislocation ([place]) Post-op diagnosis: same Procedure: ORIF olecranon Removal loose body, radiocapitellar joint Implants: Dawn olecranon locking plate Surgeon: Raymond Sorto MD Anesthesia: GETA and regional Was an Vehicle Body Sander used for this Procedure?: Yes Vehicle Body Sander: Victoria Larson Estimated blood loss (mL): 20 Tourniquet time (min): 70 IV fluids (mL): 1,000 Pathology: none sent Condition: stable Disposition: PACU Patient was brought to the operating room and placed supine on the surgical table. She was prepped and draped in standard sterile fashion and a time out was called to identify proper site, proper procedure and IV antibiotics per weight were administered. I began by exsanguinating the limb and insufflating the tourniquet to 250 mmHg. Under anesthesia I was able to reduce the radial head through a combination of traction and supination. I then made a posterior radial incision over the radial aspect of the olecranon dissection was taken down to the triceps fascia and at the olecranon fascia through the bursa. I was able to appreciate in on stable radial head and a largely extra-articular oblique proximal ulna fracture. Through a combination of sharp dissection and curettage I cleaned out the fracture and irrigated copiously. I then made a an additional incision through the radial head fascia less posterior revealing a intra-articular fracture of the radial head. Full-thickness capsular flaps were developed and the small fragments were removed from the radiocapitellar joint. The this was approximately 10-15% of the radial head and did not and was lateral non articular not articulating with cap with the ulna. I had full range of motion without catching and the decision was made to remove the loose piece. I do not believe it needed fixation. I then turned my attention back to the ulna where I selected a ulnar locking plate and then using, using standard AO technique, placed the ulna plate posteriorly ever using combination of locking and nonlocking screws I reduced the fracture. This stabilized the radial head and there was no evidence of ongoing instability with full range of motion both flexion, extension and supination and pronation. Biplanar fluoroscopy was used to confirm fracture reduction, alignment and hardware position. Once I was satisfied with the position of the hardware I closed the capsule and fascial layer over the radial head. Copious irrigation was done and a layered closure with lauren on the skin was performed. Patient was placed into a posterior splint in neutral proximally 90 degrees flexion extubated and brought to the recovery room in stable condition. There were no known complications. This
[2022-12-08] MEDS: ondansetron HCL 4 MG/2 ML VIAL IVPUSH ×2 (14:40→22:30)
--- NOTE | 2022-12-08 16:19 | MHC.CM.PN ---
PT REPORTS SHE LIVES AT HOME AND IS INDEPENDENT WITH CARE SHE WORKS AND DRIVES WELL SHE REPORTS SHE HAS WALKING STICK SHE USES AND NO OTHER DME SHE HAS [facility] ONLY, NO OTHER SERVICES PT REPORTS SHE IS NOT GOING TO STR SHE WOULD LIKE HOME SERVICES CM EXPLAINED THAT WOULD ONLY BE [facility] PT REPORTS HER BED AND BATH ARE ON THE 2ND FL OF THE [place] WITH 14-15 STAIRS PT AGREES TO REVISIT DC PLAN TOMORROW SO SHE CAN SEE HOW SHE IS FEELING DCP TBD HOME WITH [facility] IS PTS STATED GOAL FRIEND TO TRANSPORT
--- NOTE | 2022-12-08 18:01 | HO.PM.IMPN ---
Subjective Subjective Date of Service: 12/08/22 Interval History: seen and examined this morning follow up for medical consult patient reporting some pain in left arm no chest pain, sob, dizziness Review of Systems Review of Systems: Yes all other systems are reviewed and are negative Constitutional Constitutional: Denies chills and Denies fever(s) ENT Ears, Nose, Mouth, and Throat: Denies dizziness Cardiovascular Cardiovascular: Denies chest pain, Denies palpitations and Denies dyspnea Respiratory Respiratory: Denies cough and Denies dyspnea Gastrointestinal Gastrointestinal: Denies abdominal pain Neurologic Neurologic: Denies dizziness Endocrine Endocrine: Denies palpitations Physical Exam Vital Signs: Vital Signs: Last Vital Signs Temp 98.3 F 12/08/22 15:59 Pulse 89 12/08/22 15:59 Resp 18 12/08/22 15:59 BP 115/54 L 12/08/22 17:56 Pulse Ox 93 12/08/22 15:59 O2 Del Method Room Air 12/08/22 15:59 O2 Flow Rate 2 12/08/22 03:32 Oxygen Flow Rate 2 12/07/22 17:15 BMI result Body Mass Index 30.4 Const: General: cooperative, comfortable, no acute distress, alert and awake Nutritional Appearance: average body habitus Orientation/consciousness: patient oriented x3 Resp: Effort & Inspection: normal respiratory effort and able to speak in complete sentences Auscultation: clear to auscultation bilaterally Cardio: Rate: regular rate GI: Inspection: No distended Palpation (GI): Soft to palpation Neuro: General: patient oriented x3 and CN's II-XI intact bilaterally Extrem: Other: left arm splint wrist to above elbow Objective Data Active Medications Acetaminophen (Acetaminophen 325 Mg Tablet) 650 mg PO Q6H PRN PRN Reason: Pain, Mild (Pain Scale 1-3) Last Admin: 12/08/22 11:05 Dose: 650 mg Documented By: YUDITH Acetaminophen (Acetaminophen 325 Mg Tablet) 650 mg PO ONCE PRN PRN Reason: Pain, Mild (Pain Scale 1-3) Albuterol Sulfate (Albuterol Sulfate (0.083%) 2.5 Mg/3 Ml Vial.Neb) 2.5 mg INHALE ONCE PRN PRN Reason: Shortness of Breath/Wheezing Albuterol Sulfate (Albuterol Sulfate (0.083%) 2.5 Mg/3 Ml Vial.Neb) 2.5 mg INHALE Q6H PRN PRN Reason: Wheezing Alprazolam (Alprazolam 0.5 Mg Tablet) 0.5 mg PO TID PRN PRN Reason: Anxiety Last Admin: 12/07/22 23:47 Dose: 0.5 mg Documented By: CRYSTALRISKhoi Bupropion HCl (Bupropion Hcl Xl 150 Mg Tab.Er.24h) 150 mg PO DAILY [facility] Last Admin: 12/08/22 09:35 Dose: 150 mg Documented By: YUDITH Celecoxib (Celecoxib 200 Mg Capsule) 200 mg PO BID [facility] Last Admin: 12/08/22 09:25 Dose: 200 mg Documented By: YUDITH Cyanocobalamin (Cyanocobalamin (Vitamin B-12) 1,000 Mcg Tablet) 1,000 mcg PO DAILY [facility] Last Admin: 12/08/22 09:24 Dose: 1,000 mcg Documented By: YUDITH Docusate Sodium (Docusate Sodium 100 Mg Capsule) 100 mg PO BID [facility] Last Admin: 12/08/22 09:25 Dose: 100 mg Documented By: YUDITH Famotidine (Famotidine 20 Mg Tablet) 20 mg PO DAILY PRN PRN Reason: Acid Reflux Fentanyl (Fentanyl Citrate/Pf 100 Mcg/2 Ml Vial) 25 mcg IVPUSH Q5M PRN; Protocol PRN Reason: Pain, Moderate (Pain Scale 4-6 Last Admin: 12/07/22 16:31 Dose: 25 mcg Documented By: DOMINICK Fluticasone Propionate (Fluticasone Propionate Nasal 16 Gm [place]) 1 spray NOSTRIL-B DAILY [facility] Last Admin: 12/08/22 09:27 Dose: 1 spray Documented By: YUDITH Hydromorphone HCl (Hydromorphone Hcl 0.5 Mg/0.5 Ml Syringe) 0.25 mg IVPUSH Q4H PRN; Protocol PRN Reason: Pain, Severe (Pain Scale 7-10) Last Admin: 12/08/22 17:42 Dose: 0.25 mg Documented By: YUDITH Hydromorphone HCl (Hydromorphone Hcl 0.5 Mg/0.5 Ml Syringe) 0.25 mg IVPUSH Q5M PRN; Protocol PRN Reason: Pain, Severe (Pain Scale 7-10) Last Admin: 12/07/22 17:31 Dose: 0.25 mg Documented By: LIZ Metoprolol Succinate (Metoprolol Succinate Er 25 Mg Tab.Er.24h) 25 mg PO DAILY [facility]; Protocol Last Admin: 12/08/22 09:25 Dose: 25 mg Documented By: YUDITH Ondansetron HCl (Ondansetron Hcl 4 Mg/2 Ml Vial) 4 mg IVPUSH ONCE PRN PRN Reason: Nausea and Vomiting Ondansetron HCl (Ondansetron Hcl 4 Mg/2 Ml Vial) 4 mg IVPUSH Q8H PRN PRN Reason: Nausea and Vomiting Last Admin: 12/08/22 14:40 Dose: 4 mg Documented By: YUDITH Oxycodone HCl (Oxycodone Hcl Immed Release 5 Mg Tablet) 10 mg PO Q4H PRN PRN Reason: Pain, Moderate (Pain Scale 4-6 Last Admin: 12/08/22 11:05 Dose: 10 mg Documented By: YUDITH Oxycodone HCl (Oxycodone Hcl Er 10 Mg Tab.Er.12h) 10 mg PO BID [facility] Last Admin: 12/08/22 09:24 Dose: 10 mg Documented By: YUDITH Sodium Chloride (0.9 % Sodium Chloride Flush 3 Ml Syringe) [address] [facility] Last Admin: 12/08/22 17:44 Dose: 3 ml Documented By: YUDITH Vitamin D (Cholecalciferol (Vitamin D3) 25 Mcg Tablet) 25 mcg PO DAILY [facility] Last Admin: 12/08/22 09:26 Dose: 25 mcg Documented By: YUDITH Labs 12/08/22 05:58 12/08/22 05:58 Labs: Laboratory Results - last 24 hr 12/07/22 12/08/22 12/08/22 13:12 05:58 05:58 MCV 82.9 MCH 23.6 L MCHC 28.5 L RDW 19.7 H Plt Count 77 L MPV Not Reportable Immature Gran % (Auto) 0.4 Neut % (Auto) 77.9 H Lymph % (Auto) 8.6 L [place] % (Auto) 12.5 H Eos % (Auto) 0.2 Baso % (Auto) 0.4 Lymph # (Auto) 0.7 L [place] # (Auto) 1.1 Eos # (Auto) 0.0 Baso # (Auto) 0.0 Abs Immat Gran (auto) 0.03 Absolute Neuts (auto) 6.7 Absolute Nucleated RBC 0.000 Nucleated RBC % (auto) 0.0 Anion Gap 14 Estim Creat Clear Calc 62.7 Estimated GFR > 60 Fasting Glucose 110 H Calcium 8.2 L Blood Type O Positive Antibody Screen NEGATIVE Crossmatch See Detail Assessment and Plan (1) Chronic ITP (idiopathic thrombocytopenia): Status: Acute (2) Anemia: Status: Chronic Plan Pt is a 77-year-old female with a PMH significant for?chronic ITP, ischemic cardiomyopathy, anxiety, GERD, chronic HFrEF, COPD/chronic bronchitis/asthma?who?is admitted to the hospital s/p surgical repair of left radial head dislocation and fracture. Patient has no acute complaints other than severe pain at surgical site. POD #1 s/p ORIF left elbow management per orthopedic team Chronic ITP plt stable at baseline No need for platelet transfusion at this time Follow CBC acute blood loss on Chronic iron deficiency anemia H&H 6.9/24.2 Pt asymptomatic: no lightheadedness, dizziness, fatigue transfuse 1u RBC follow CBC will need outpatient follow up with hematology for IV iron infusion as she missed last appt Ischemic cardiomyopathy/ Followed by Dr. Giordano Continue metoprolol GERD Continue home meds Asthma Continue home inhalers Anxiety/depression Continue alprazolam, bupropion attending - dr. antunez Time Spent With Patient Time: Total time managing care of this patient today ____ minutes. Quality Stroke Does the patient have a stroke diagnosis?: No VTE Prior VTE?: No VTE Risk Level:: Surgical - moderate VTE Device Contraindication: N/A - Device Ordered VTE Drug Contraindication: N/A - Med Ordered
[2022-12-08] MEDS: ALPRAZolam 0.5 MG TABLET PO (22:40)
[2022-12-09] VITALS (11 sets, daily range): BP systolic 102–125; BP diastolic 50–59; PULSE 81–101; RESP 16–20; TEMP 36.2–37.7; O2SAT 94–98
[2022-12-09] MEDS: oxyCODONE HCl Immed Release 5 MG TABLET 10 MG PO (06:37)
[2022-12-09 06:57] LABS: Hematocrit 24.2 % (37.0-47.0); Mean Corpuscular HGB Conc 28.9 g/dl (31.0-35.0); Mean Corpuscular Hemoglobin 24.3 pg (27.0-33.0); Red Blood Count 2.88 X10*6/uL (4.20-5.50); Red Cell Distribution Width 19.8 % (11.0-16.0); White Blood Count 6.7 X10*3/uL (4.8-10.8)
[2022-12-09 07:26] LABS: Platelet Count 59 X10*3/uL (160-400)
--- NOTE | 2022-12-09 07:41 | PM.DS ---
DS: Providers Provider Date of Service: 12/09/22 Primary care physician: Joseph Magana MD Consults: 12/07/22 17:08 Consult to Hospitalist Routine Consulting Provider: Hospitalist Reason For Exam: Medical mgmnt-low platelets DS: Diagnosis Discharge Diagnosis (1) Chronic ITP (idiopathic thrombocytopenia): Status: Acute (2) Anemia: Status: Chronic DS: Summary Hospital Course Hospital Course: The patient underwent a successful left elbow ORIF, they were transferred to PACU and then to the floor to recover. During their stay, their vitals were stable, afebrile at 99.8. H/H was low on POD1 and therefore the patient was transfused. POD2 H/H 7.0/24.2 and was transfused prior to discharge with instruction to followup with hematology. Prior to discharge, her splint was clean dry and intact and the plan was to be discharged home with VNA services. Time Spent with Patient Time attestation: Total time managing care of this patient today ____ minutes. Discharge coordination time: Less than 30 minutes Quality: Safe Use of Opioids Does Pt have an Active Cancer Diagnosis on the Problem List?: No Quality: Stroke Does the patient have a stroke diagnosis?: No Physical Exam Vital Signs: Vital Signs: Last Vital Signs Temp 99.8 F 12/09/22 07:34 Pulse 85 12/09/22 07:34 Resp 16 12/09/22 07:34 BP 104/53 L 12/09/22 07:34 Pulse Ox 96 12/09/22 07:34 O2 Del Method Room Air 12/09/22 07:34 O2 Flow Rate 2 12/08/22 03:32 Oxygen Flow Rate 2 12/07/22 17:15 BMI result Body Mass Index 30.4 Const: General: cooperative, healthy appearing and no acute distress Resp: Effort & Inspection: normal respiratory effort and able to speak in complete sentences Cardio: Rate: regular rate Peripheral pulses: Peripheral pulses 2+ throughout GI: Palpation (GI): Soft to palpation Skin: General skin exam: no rashes or lesions noted Extrem: Other: left elbow splint intact, able to move all digits, NVI. DS: Data Data Completed and Pending Completed studies during hospitalization [Text1]: Procedures Destruction of Cecum, Via Natural or Artificial Opening Endoscopic (01/27/22) Excision of Duodenum, Via Natural or Artificial Opening Endoscopic, Diagnostic (01/27/22) Excision of Rectum, Via Natural or Artificial Opening Endoscopic, Diagnostic (01/27/22) Excision of Sigmoid Colon, Via Natural or Artificial Opening Endoscopic, Diagnostic (01/27/22) Excision of Stomach, Pylorus, Via Natural or Artificial Opening Endoscopic, Diagnostic (01/27/22) Transfusion of Nonautologous Red Blood Cells into Peripheral Vein, Percutaneous Approach (01/27/22) Labs on day of discharge: Laboratory Results - last 24 hr 12/07/22 12/08/22 12/09/22 13:12 05:58 05:40 WBC 8.5 6.7 RBC 2.92 L 2.88 L Hgb 6.9 L* 7.0 L* Hct 24.2 L 24.2 L MCV 82.9 84.0 MCH 23.6 L 24.3 L MCHC 28.5 L 28.9 L RDW 19.7 H 19.8 H Plt Count 77 L 59 L MPV Not Reportable Not Reportable Immature Gran % (Auto) 0.4 Neut % (Auto) 77.9 H Lymph % (Auto) 8.6 L [place] % (Auto) 12.5 H Eos % (Auto) 0.2 Baso % (Auto) 0.4 Lymph # (Auto) 0.7 L [place] # (Auto) 1.1 Eos # (Auto) 0.0 Baso # (Auto) 0.0 Abs Immat Gran (auto) 0.03 Absolute Neuts (auto) 6.7 Absolute Nucleated RBC 0.000 0.000 Nucleated RBC % (auto) 0.0 0.0 Blood Type O Positive Antibody Screen NEGATIVE Crossmatch See Detail Discharge Plan Discharge Patient Disposition: Home, Self-Care Referrals: Victoria Larson PA-C [Physician Trim Attacher] - 12/12/22 10:45 am Discharge Medications: New oxycodone-acetaminophen [Percocet] 5-325 mg tablet 1 tab PO Q4-6H PRN (Reason: pain (scale score 4-6)) 7 Days Qty: 42 0RF Rx Instructions: Partial Fill upon patient request. morphine [MS Contin] 15 mg tablet extended release 15 mg PO Q12H 3 Days Qty: 6 0RF Rx Instructions: Partial Fill upon patient request. Continued alprazolam 0.5 mg tablet 1 tab PO TID PRN (Reason: Anxiety) hydrocodone-acetaminophen 7.5-325 mg tablet 1 tab PO Q6H PRN (Reason: Pain (Scale Score 7-10)) albuterol sulfate [ProAir HFA] 90 mcg/actuation HFA aerosol inhaler 1 - 2 puff inhalation Q4-6H PRN (Reason: Wheezing) cholecalciferol (vitamin D3) [Vitamin D3] 25 mcg (1,000 unit) Capsule 1,000 unit PO DAILY albuterol sulfate 2.5 mg /3 mL (0.083 %) solution for nebulization 2.5 mg inhalation Q6H PRN (Reason: Wheezing) cimetidine 400 mg tablet 1 tab PO DAILY PRN (Reason: Acid Reflux) fluticasone propionate 50 mcg/actuation spray,suspension 1 spray intranasal DAILY vitamin A 2,400 mcg Capsule 2,400 mcg PO DAILY cyanocobalamin (vitamin B-12) 1,000 mcg Tablet 1,000 mcg PO DAILY metoprolol succinate [Toprol XL] 25 mg tablet extended release 24 hr 25 mg PO DAILY Discontinued morphine 15 mg tablet 15 mg PO TID PRN (Reason: pain) Qty: 12 0RF Rx Instructions: partial fill okay; Partial Fill upon patient request. oxycodone 5 mg tablet 5 mg PO Q8H PRN (Reason: pain) 5 Days Qty: 15 0RF Rx Instructions: Partial Fill upon patient request. No Action bupropion HCl 150 mg tablet sustained-release 12 hr 1 tab PO DAILY ondansetron HCl 4 mg tablet 1 tab PO Q8H PRN (Reason: Nausea And Vomiting) Hair, Skin and Nails (biotin) 10,000 mcg Tablet,Chewable 10,000 mcg PO DAILY Diet: Advance to usual diet Activity on Discharge: Use Splints or Immobilizers Activity Restrictions/Additional Instructions: Keep splint clean, dry, and intact Elevate throughout the day No heavy lifting Perform fist/finger exercises throughout the day Do not bathe or shower--keep splint dry Take Percocet 5/325mg tabs 1 tab by mouth every 4 hours as needed Call [facility] orthopedics with any questions or concerns. Follow up with orthopedics in 7-10 days post op Followup with hematology for iron transfusion
[2022-12-09] MEDS: Acetaminophen 325 MG TABLET 650 MG PO (08:58)
[2022-12-09] MEDS: Cholecalciferol (Vitamin D3) 25 MCG TABLET PO (08:59)
[2022-12-09] MEDS: 0.9 % Sodium Chloride Flush 3 ML SYRINGE IVFLUSH (09:00)
[2022-12-09] MEDS: Metoprolol Succinate ER 25 MG TAB.ER.24H PO (09:00)
[2022-12-09] MEDS: Cyanocobalamin (Vitamin B-12) 1,000 MCG TABLET 1000 MCG PO (09:00)
[2022-12-09] MEDS: Celecoxib 200 MG CAPSULE PO (09:00)
[2022-12-09] MEDS: buPROPion HCl XL 150 MG TAB.ER.24H PO (09:00)
[2022-12-09] MEDS: oxyCODONE HCl ER 10 MG TAB.ER.12H PO (09:00)
[2022-12-09] MEDS: ALPRAZolam 0.5 MG TABLET PO (12:53)
--- NOTE | 2022-12-09 13:12 | HO.PM.IMPN ---
Subjective Subjective Date of Service: 12/09/22 Interval History: seen and examined this morning follow up for medical consultation no overnight events no specific complaints this am denies dizziness Review of Systems Review of Systems: Yes all other systems are reviewed and are negative Constitutional Constitutional: Denies chills and Denies fever(s) ENT Ears, Nose, Mouth, and Throat: Denies dizziness Cardiovascular Cardiovascular: Denies chest pain, Denies palpitations and Denies dyspnea Respiratory Respiratory: Denies cough and Denies dyspnea Neurologic Neurologic: Denies dizziness Endocrine Endocrine: Denies palpitations Physical Exam Vital Signs: Vital Signs: Last Vital Signs Temp 98.3 F 12/09/22 10:56 Pulse 94 12/09/22 10:56 Resp 18 12/09/22 10:56 BP 112/51 L 12/09/22 10:56 Pulse Ox 96 12/09/22 07:34 O2 Del Method Room Air 12/09/22 07:34 O2 Flow Rate 2 12/08/22 03:32 Oxygen Flow Rate 2 12/07/22 17:15 BMI result Body Mass Index 30.4 Const: General: cooperative, comfortable, no acute distress, alert and awake Nutritional Appearance: average body habitus Orientation/consciousness: patient oriented x3 Resp: Effort & Inspection: normal respiratory effort and able to speak in complete sentences Auscultation: clear to auscultation bilaterally Cardio: Rate: regular rate GI: Inspection: No distended Palpation (GI): Soft to palpation Neuro: General: patient oriented x3 and CN's II-XI intact bilaterally Extrem: Other: left arm splint wrist to above elbow Objective Data Active Medications Acetaminophen (Acetaminophen 325 Mg Tablet) 650 mg PO Q6H PRN PRN Reason: Pain, Mild (Pain Scale 1-3) Last Admin: 12/08/22 11:05 Dose: 650 mg Documented By: YUDITH Acetaminophen (Acetaminophen 325 Mg Tablet) 650 mg PO ONCE PRN PRN Reason: Pain, Mild (Pain Scale 1-3) Albuterol Sulfate (Albuterol Sulfate (0.083%) 2.5 Mg/3 Ml Vial.Neb) 2.5 mg INHALE ONCE PRN PRN Reason: Shortness of Breath/Wheezing Albuterol Sulfate (Albuterol Sulfate (0.083%) 2.5 Mg/3 Ml Vial.Neb) 2.5 mg INHALE Q6H PRN PRN Reason: Wheezing Alprazolam (Alprazolam 0.5 Mg Tablet) 0.5 mg PO TID PRN PRN Reason: Anxiety Last Admin: 12/09/22 12:53 Dose: 0.5 mg Documented By: YUDITH Bupropion HCl (Bupropion Hcl Xl 150 Mg Tab.Er.24h) 150 mg PO DAILY [facility] Last Admin: 12/09/22 09:00 Dose: 150 mg Documented By: EDGAR Celecoxib (Celecoxib 200 Mg Capsule) 200 mg PO BID [facility] Last Admin: 12/09/22 09:00 Dose: 200 mg Documented By: EDGAR Cyanocobalamin (Cyanocobalamin (Vitamin B-12) 1,000 Mcg Tablet) 1,000 mcg PO DAILY [facility] Last Admin: 12/09/22 09:00 Dose: 1,000 mcg Documented By: EDGAR Docusate Sodium (Docusate Sodium 100 Mg Capsule) 100 mg PO BID [facility] Last Admin: 12/09/22 09:00 Dose: Not Given Documented By: EDGAR Non-Admin Reason: Patient Refused Famotidine (Famotidine 20 Mg Tablet) 20 mg PO DAILY PRN PRN Reason: Acid Reflux Fluticasone Propionate (Fluticasone Propionate Nasal 16 Gm [place]) 1 spray NOSTRIL-B DAILY [facility] Last Admin: 12/09/22 09:00 Dose: Not Given Documented By: EDGAR Non-Admin Reason: Patient Refused Hydromorphone HCl (Hydromorphone Hcl 0.5 Mg/0.5 Ml Syringe) 0.25 mg IVPUSH Q4H PRN; Protocol PRN Reason: Pain, Severe (Pain Scale 7-10) Last Admin: 12/08/22 23:22 Dose: 0.25 mg Documented By: MOSES Metoprolol Succinate (Metoprolol Succinate Er 25 Mg Tab.Er.24h) 25 mg PO DAILY [facility]; Protocol Last Admin: 12/09/22 09:00 Dose: 25 mg Documented By: EDGAR Ondansetron HCl (Ondansetron Hcl 4 Mg/2 Ml Vial) 4 mg IVPUSH Q8H PRN PRN Reason: Nausea and Vomiting Last Admin: 12/08/22 22:30 Dose: 4 mg Documented By: MOSES Oxycodone HCl (Oxycodone Hcl Immed Release 5 Mg Tablet) 10 mg PO Q4H PRN PRN Reason: Pain, Moderate (Pain Scale 4-6 Last Admin: 12/09/22 06:37 Dose: 10 mg Documented By: MOSES Oxycodone HCl (Oxycodone Hcl Er 10 Mg Tab.Er.12h) 10 mg PO BID [facility] Last Admin: 12/09/22 09:00 Dose: 10 mg Documented By: EDGAR Sodium Chloride (0.9 % Sodium Chloride Flush 3 Ml Syringe) 3 ml IVFLUSH QSHIFT [facility] Last Admin: 12/09/22 09:00 Dose: 3 ml Documented By: EDGAR Vitamin D (Cholecalciferol (Vitamin D3) 25 Mcg Tablet) 25 mcg PO DAILY [facility] Last Admin: 12/09/22 08:59 Dose: 25 mcg Documented By: EDGAR Labs 12/09/22 05:40 12/08/22 05:58 Labs: Laboratory Results - last 24 hr 12/07/22 12/09/22 13:12 05:40 MCV 84.0 MCH 24.3 L MCHC 28.9 L RDW 19.8 H Plt Count 59 L MPV Not Reportable Absolute Nucleated RBC 0.000 Nucleated RBC % (auto) 0.0 Blood Type O Positive Antibody Screen NEGATIVE Crossmatch See Detail Assessment and Plan (1) Chronic ITP (idiopathic thrombocytopenia): Status: Acute (2) Anemia: Status: Chronic Plan Pt is a 77-year-old female with a PMH significant for?chronic ITP, ischemic cardiomyopathy, anxiety, GERD, chronic HFrEF, COPD/chronic bronchitis/asthma?who?is admitted to the hospital s/p surgical repair of left radial head dislocation and fracture. Patient has no acute complaints other than severe pain at surgical site. POD #2 s/p ORIF left elbow management per orthopedic team Chronic ITP plt stable at baseline No need for platelet transfusion at this time Follow CBC acute blood loss on Chronic iron deficiency anemia Pt asymptomatic: no lightheadedness, dizziness, fatigue transfuse 1u RBC 12/08, H/H similar today, will transfuse additional unit of blood will need close outpatient follow up with hematology for IV iron infusion as she missed last appt recommend repeat CBC early next week to ensure improvement in H/H Ischemic cardiomyopathy/ Followed by Dr. Giordano Continue metoprolol GERD Continue home meds Asthma Continue home inhalers Anxiety/depression Continue alprazolam, bupropion attending - dr. antunez Time Spent With Patient Time: Total time managing care of this patient today ____ minutes. Quality Stroke Does the patient have a stroke diagnosis?: No VTE Prior VTE?: No VTE Risk Level:: Surgical - moderate VTE Device Contraindication: N/A - Device Ordered VTE Drug Contraindication: N/A - Med Ordered
--- NOTE | 2022-12-09 14:04 | W.MHC.F2F ---
Service Date Service Date: 12/09/22 Encounter Date of encounter: 12/09/22 Reasons for Services Signs and symptoms assessed: Pt. is considered homebound due to recent surgery. S/p left elbow ORIF. Unable to drive, poor balance, poor gait mechanics. Reason for occupational therapy: home safety and mobility, therapeutic exercises, restore joint function, gait/transfer training and ADL training Homebound: Leaving the home is medically contraindicated at this time without the asist of a device and/or another person due th the listed conditions above and below. Reason homebound: unsteady gait / fall risk, pain with ambulation, pain with transfers, poor balance / fall risk and unable to drive Certification: Based on the above findings, I certify that this patient is confined to the home and needs intermittent penitentiary care, physical therapy and/or speech therapy, or continues to need occupational therapy. The patient is under my care, and I have initiated the establishment of the plan of care. The patient will be followed by a physician who will periodically review the plan of care. Time Spent With Patient Time: Total time managing care of this patient today ____ minutes.
--- NOTE | 2022-12-09 14:19 | MHC.CM.PN ---
CALL FROM [facility]. AGENCY [place] PATIENT DUE TO NONCOMPLIANCE PATIENT REPORTEDLY WILL ONLY ACCEPT LAB DRAWS. PATIENT CAN ARRANGE FOR HOME LAB DRAWS WITH HER PCP. PATIENT MADE AWARE.
--- NOTE | 2022-12-09 14:26 | MHC.CM.PN ---
[facility] UNABLE TO OFFER SERVICES DUE TO RECENTLY BEING DC FROM AGENCY FOR NON-COMPLIANCE PATIENT REPORTEDLY ONLY WANTED LAB DRAWS, WHICH CAN BE ARRANGED WITH PCP OFFICE. PATIENT MADE AWARE, ALTHOUGH SHE DISAGREES WITH [facility] STATEMENT CM ATTEMPTING TO SECURE A VNA. ORTHO SHAYLEE MADE AWARE THERE MAY BE DIFFICULTY BECAUSE OF TIMING OF REFERRAL (MONDAY) AND INSURANCE PLAN
--- NOTE | 2022-12-09 15:14 | MHC.CM.PN ---
UNABLE TO SECURE VNA SERVICES. SURGICAL PC MADE AWARE. PATIENT STATES THAT HER FRIEND WILL BE VISITING DAILY. PATIENT ALSO MADE AWARE THAT IF SHE REQUIRES LAB DRAWS, THIS CAN BE SET UP BY PCP.
== END 2022-12-09 17:52 | disposition home or self-care (01) ==
LOC: HO.SSS 17:30 → HO.S3 17:33
PROVIDERS: Anesthesiology; Physician Assistant; Physician Assistant Medical; PCP Internal Medicine Geriatric Medicine; Visit Provider Orthopaedic Surgery
PROC: (CPT 24635; principal; 2022-12-07 15:00)
DX: S52.002A Unspecified fracture of upper end of left ulna, initial encounter for closed fracture (principal); S52.122A Displaced fracture of head of left radius, initial encounter for closed fracture; W10.9XXA Fall (on) (from) unspecified stairs and steps, initial encounter; Y93.9 Activity, unspecified; Y92.9 Unspecified place or not applicable; Y99.8 Other external cause status; D69.6 Thrombocytopenia, unspecified; J44.9 Chronic obstructive pulmonary disease, unspecified; I50.23 Acute on chronic systolic (congestive) heart failure; D64.9 Anemia, unspecified; Z79.51 Long term (current) use of inhaled steroids; Z79.899 Other long term (current) drug therapy; Z88.0 Allergy status to penicillin; Z88.1 Allergy status to other antibiotic agents; Z88.2 Allergy status to sulfonamides; Z87.891 Personal history of nicotine dependence
CPT/HCPCS: 24635; 36415; 80048; 85025; 85027; 86850; 86900; 86901; 86923; 87635; C1713; J0131; J0690; J1100; J1170; J2250; J2405; J2795; J3010; P9016; P9073

== ENCOUNTER 2022-12-15 14:32 | Outpatient (REF) | payer OTHER, SELFPAY ==
--- NOTE | ~2022-12-15 | XR_ITS ---
EXAMINATION: XR ELBOW, LEFT CLINICAL INFORMATION: Left elbow pain. COMPARISON: CT of 12/01/2022 and plain film study of 11/24/2022. TECHNIQUE: AP, lateral, and oblique views of the left elbow. FINDINGS: Patient is status post plate and screw repair of proximal ulnar fracture with significant improvement in alignment of fracture fragments which appear essentially anatomic. Evaluation of possible loose body would be limited on this plain film study. Hardware appears intact. XR/XR elbow LT min 3V IMPRESSION: Status post intraoperative repair of proximal ulnar fracture with near anatomic alignment.
== END 2022-12-15 14:33 | disposition home or self-care (01) ==
LOC: HO.HOSX 14:32
PROVIDERS: Visit Provider Physician Assistant
DX: S52.002D Unspecified fracture of upper end of left ulna, subsequent encounter for closed fracture with routine healing (principal); S52.122D Displaced fracture of head of left radius, subsequent encounter for closed fracture with routine healing; M25.551 Pain in right hip; X58.XXXD Exposure to other specified factors, subsequent encounter
CPT/HCPCS: 73080

== ENCOUNTER → 2022-12-23 13:43 | Outpatient (BNVA) | payer OTHER, SELFPAY | PROVIDERS: PCP Internal Medicine Geriatric Medicine; Visit Provider Physician Assistant ==

== ENCOUNTER 2023-03-06 11:45 | Outpatient (REF) | payer OTHER, SELFPAY | END 2023-03-06 11:46 | disposition home or self-care (01) | LOC: HO.HOSX 11:45 | PROVIDERS: Visit Provider Orthopaedic Surgery | DX: Z13.89 Encounter for screening for other disorder (principal) ==

== ENCOUNTER 2023-03-20 09:21 | Emergency (ER) | payer OTHER, SELFPAY ==
[2023-03-20] VITALS (7 sets, daily range): BP systolic 107–138; BP diastolic 49–60; PULSE 80–112; RESP 11–22; TEMP 36.3–36.8; O2SAT 92–97; BMI 31.3
--- NOTE | 2023-03-20 09:53 | PC.NURSE ---
pt also stating her asthma has been bothering her since this morning, noted to be 89% on room air while sleeping. placed on 2L nasal cannula 96% at this time.
--- NOTE | 2023-03-20 10:26 | ED.GENADULT ---
HPI - General Adult General Chief complaint: Extremity Problem Stated complaint: R leg and arm swelling Time Seen by Provider: 03/20/23 10:25 Source: patient, EMS, RN notes reviewed and old records reviewed Mode of arrival: EMS History of Present Illness HPI narrative: 77-year-old female past medical history of CHF, anxiety, asthma, cardiomyopathy, ACS, COPD, GERD, osteoarthritis, thrombocytopenia, presenting to the ED complaining of SOB & RLE pain and bruising x this morning. Reports remote history of trauma to RLE many years ago, denies recent injury/fall or injury. Denies fever, chills, cough, chest pain, abdominal pain, nausea/vomiting, history of clots Onset (ago): hour(s) Related Data Home Medications Medication Instructions Recorded Confirmed albuterol sulfate 90 mcg/actuation 1 - 2 puff inhalation Q4-6H PRN 12/07/20 12/07/22 aerosol inhaler (ProAir HFA) Wheezing alprazolam 0.5 mg tablet 1 tab PO TID PRN Anxiety 12/07/20 12/07/22 hydrocodone 7.5 mg-acetaminophen 1 tab PO Q6H PRN Pain (Scale Score 12/07/20 12/07/22 325 mg tablet 7-10) cholecalciferol (vitamin D3) 25 1,000 unit PO DAILY 02/07/21 12/07/22 mcg (1,000 unit) capsule (Vitamin D3) albuterol sulfate 2.5 mg/3 mL 2.5 mg inhalation Q6H PRN Wheezing 01/27/22 12/07/22 (0.083 %) solution for nebulization cimetidine 400 mg tablet 1 tab PO DAILY PRN Acid Reflux 01/27/22 12/07/22 cyanocobalamin (vitamin B-12) 1,000 mcg PO DAILY 01/27/22 12/07/22 1,000 mcg tablet fluticasone propionate 50 1 spray intranasal DAILY 01/27/22 12/07/22 mcg/actuation nasal spray,suspension vitamin A 2,400 mcg capsule 2,400 mcg PO DAILY 01/27/22 12/07/22 metoprolol succinate 25 mg 25 mg PO DAILY 05/17/22 12/07/22 tablet,extended release 24 hr (Toprol XL) biotin 10,000 mcg chewable tablet 10,000 mcg PO DAILY 12/07/22 12/07/22 (Hair, Skin and Nails (biotin)) bupropion HCl 150 mg tablet,12 hr 1 tab PO DAILY 12/07/22 12/07/22 sustained-release ondansetron HCl 4 mg tablet 1 tab PO Q8H PRN Nausea And 12/07/22 12/07/22 Vomiting Previous Rx's Medication Instructions Recorded morphine 15 mg tablet,extended 15 mg PO Q12H pain severe 3 days 12/07/22 release (MS Contin) #6 tabs oxycodone-acetaminophen 5 mg-325 1 tab PO Q6H PRN pain (scale score 12/19/22 mg tablet (Percocet) 4-6) 7 days #28 tabs Allergies Allergy/AdvReac Type Severity Reaction Status Date / Time amoxicillin Allergy Unknown Hives Verified 12/23/22 13:59 Penicillins [PENICILLINS] Allergy Unknown Hives Verified 12/23/22 13:59 Sulfa (Sulfonamide Allergy Unknown Hives Verified 12/23/22 13:59 Antibiotics) [SULFA (SULFONAMIDE ANTIBIOTICS)] Review of Systems Review of Systems: Constitutional: No Fever, No Chills, No Fatigue, No Malaise ENT/Mouth: No Ear Pain, No sore throat, No Rhinorrhea, No Swallowing Difficulty Eyes: No Eye Pain, No Swelling, No Redness, No Vision Changes Cardiovascular: No Chest Pain, + SOB, + Edema, No Palpitations Respiratory: No Cough, No Sputum, No Dyspnea Gastrointestinal: No Nausea, No Vomiting, No Abdominal pain Genitourinary: No Dysuria, No Urinary Frequency, No Hematuria, No Flank Pain Musculoskeletal: + joint pain, No Myalgias, + Joint Swelling Skin: + Skin Lesions, No rash Neuro: No Weakness, No Numbness, No Paresthesias, No Loss of Consciousness, No Dizziness, No Headache Yes all other systems are reviewed and are negative Constitutional: Constitutional: Reports as per [facility] Past Medical History Attestation statement: The following information was validated with the patient. Source: old records reviewed Medical History Acute on chronic systolic (congestive) heart failure Anxiety Ascending aorta dilatation Asthma Atherosclerotic cardiovascular disease Cardiomyopathy COPD (chronic obstructive pulmonary disease) COPD exacerbation GERD (gastroesophageal reflux disease) Heart failure with reduced ejection fraction Non-rheumatic aortic regurgitation Non-rheumatic aortic stenosis Non-rheumatic mitral regurgitation Osteoarthritis Thrombocytopenia Surgical History Hx of colonoscopy Hx of endoscopy Hx of hysterectomy Hx of oophorectomy Hx of total knee replacement Family History Family History Sister Lung cancer Lupus Sister Lung cancer Maternal Aunt Lupus Social History Social History Household Members: None Household Members Other:: lives alone Housing: Condominium Do you presently have visiting nurse or other home services: No Unable to assess alcohol history related to: Unknown Alcohol intake: current Alcohol intake frequency: a few times a month Patient Tobacco Use Status: Former Tobacco user Quit Date: 19 YRS OLD Smoked in Last 30 Days: No Second Hand Smoke Exposure: No Use of substances other than those prescribed or required for medical reasons: No Substance Use Type: Unknown Advance Directives: Yes Advance Directives Information Provided: No Advance Directives on File: No service: No ( career [employer]) Current occupational status: employed Physical Exam ED Vital Signs: Vital Signs - 24 hr 03/20/23 09:34 03/20/23 10:39 03/20/23 11:09 Temperature 98.3 F Pulse Rate 87 80 85 Respiratory Rate 18 20 18 Blood Pressure 138/60 126/49 L Pulse Oximetry 96 92 Oxygen Delivery Method Room Air Room Air Oxygen Flow Rate 03/20/23 13:10 03/20/23 14:18 03/20/23 15:09 Temperature Pulse Rate 112 H 104 H 99 Respiratory Rate 18 22 H 21 H Blood Pressure 118/55 L 117/56 L Pulse Oximetry 92 97 Oxygen Delivery Method Room Air Nasal Cannula Oxygen Flow Rate 2 03/20/23 15:43 Temperature 97.3 F Pulse Rate 98 Respiratory Rate 11 L Blood Pressure 107/50 L Pulse Oximetry 92 Oxygen Delivery Method Room Air Oxygen Flow Rate BMI result Body Mass Index 31.3 Const Other: Lethargic however easily arousable General: cooperative, no acute distress and lethargic Orientation/consciousness: patient oriented x3 and lethargic Limitations: no limitations HENMT Head: Yes normal to inspection and Yes atraumatic Ears: hearing grossly normal bilaterally General nose exam: Normal external nose present Face and sinus: Yes normal facial exam Eyes General: appearance normal, both eyes and all related structures Pupils: Equal, round and reactive pupils present EOM: EOMs intact bilaterally Neck Neck: Yes normal visual inspection and Yes no meningeal signs Resp Effort & Inspection: normal respiratory effort, no respiratory distress and not tachypneic Auscultation: crackles bilateral at the base and diminished lung sounds diffuse Cardio Rate: regular rate Heart sounds: S1 normal heart sound present, S2 normal heart sound present and Murmur heart sound present GI Inspection: Yes normal to inspection Palpation (GI): Soft to palpation and nontender Skin Rashes: no rashes Neuro General: patient oriented x3, tone normal, moves all extremities, no meningeal signs, no focal motor deficits and CN's II-XI intact bilaterally Cranial nerves: Yes CN's II-XII intact bilaterally and Yes Equal, round and reactive pupils present Motor exam (neuro): 5/5 motor strength present throughout Extrem Other: Please refer to images above. Bilateral LE nonpitting edema with venous stasis changes. RLE with ecchymosis and diffuse tenderness. Limited ROM to R ankle secondary to pain. NV intact distally. No crepitus Course Course Course Narrative: -1232--no leukocytosis. Chronic anemia, better than baseline. Initial troponin negative > will obtain 3 hour repeat -UA not infected. Tox screen positive for THC XR chest 1V IMPRESSION: No acute cardiopulmonary process. XR ankle RT min 3V IMPRESSION: Mild soft tissue swelling without acute underlying osseous abnormality. -1357--on re-evaluation patient lethargic, arousable however continues to fall asleep, appears under the influence. Bilaterally dilated pupils. Tox screen only positive for THC, ethanol added. Patient is on home Vicodin and alprazolam, ? Polypharmacy. Pending repeat troponin/venous duplex ultrasound, anticipate PT/case management -patient de-satting when sleeping, Nasal cannula placed US venous duplex LE BI IMPRESSION: 1.? No evidence for deep venous thrombosis in the visualized veins of the bilateral lower extremities. 2.? Mild subcutaneous edema in the right calf. > patient ambulated in the ED with slow gait with walker. Reports at home only has walking stick. PT/case management consult placed -1614--case management evaluated patient she declined VNA and short-term rehab. Patient has ride that will pick her up from the ED. Patient denies SOB at this time, states I never knew I was short of breath satting 92-94% during conversation, does not appear short of breath. Will give p.o. prednisone and discharged with short course of prednisone for asthma/COPD. Patient admits she has nebulizer at home, discussed importance of taking. Patient continues to request Vicodin, discussed will not be giving to her due to respiratory depression and she has been sleeping since ED arrival Results discussed with patient including worrisome signs and symptoms and strict return precautions, and when to return to the emergency department. They verbalized understanding and feel safe for discharge at this time. Medications Administered Discontinued Medications Generic Name Dose Route Start Last Admin Trade Name Freq PRN Reason Stop Dose Admin Albuterol Sulfate 5 mg/ 0 mg 03/20/23 10:38 03/20/23 11:08 Albuterol/Ipratropium 3 ml INHALE 03/20/23 10:39 5 each ONCE ONE Administration Levalbuterol HCl 2.5 mg 03/20/23 14:55 03/20/23 15:08 Levalbuterol Hcl 1.25 Mg/3 Ml Vial.Neb INHALE 03/20/23 14:56 2.5 mg ONCE ONE Administration Medical Decision Making Medical Decision Making MDM Narrative: 77-year-old female past medical history of CHF, anxiety, asthma, cardiomyopathy, ACS, COPD, GERD, osteoarthritis, thrombocytopenia, presenting to the ED complaining of SOB & RLE pain and bruising x this morning. On exam initially satting 89% on RA, 91% on this bond underwriter's evaluation, diminished lung sounds throughout with bibasilar crackles. Bilateral LE nonpitting edema noted with ecchymosis to RLE. Patient lethargic however easily arousable. No focal deficits. Concern for CHF vs COPD exacerbation vs ? DVT/PE vs atypical ACS. Rule out fracture Plan: EKG, labs, UA, PATEL, x-ray, venous duplex ultrasound, DuoNeb, re-evaluate Please refer to course for remaining clinical decision making, interpretation of labs/imaging results, and discussions with consultants and/or family members. Differential Diagnosis Differential Diagnoses: The differential diagnosis associated with the presentation includes As above Admission/Observation Consideration of admission/observation: Escalation of care including admission/observation considered Lab Data [facility] Lab Attestation statement: I reviewed the patient's lab results. 03/20/23 11:11 03/20/23 11:11 Labs: Lab Results 03/20/23 03/20/23 03/20/23 Range/Units 11:11 11:11 11:11 WBC 6.0 (4.8-10.8) X10*3/uL RBC 3.33 L (4.20-5.50) X10*6/uL Hgb 10.0 L D (12.0-16.0) g/dl Hct 32.1 L D (37.0-47.0) % MCV 96.4 (80.0-98.0) fL MCH 30.0 (27.0-33.0) pg MCHC 31.2 (31.0-35.0) g/dl RDW 15.0 (11.0-16.0) % Plt Count 71 L (160-400) X10*3/uL MPV Not Reportable Immature Gran % (Auto) 0.2 (0.0-0.4) % Neut % (Auto) 71.3 (45-73) % Lymph % (Auto) 14.5 L (20-40) % [place] % (Auto) 9.6 (2-11) % Eos % (Auto) 3.7 (0-4) % Baso % (Auto) 0.7 (0-2) % Lymph # (Auto) 0.9 L (1.2-4.9) X10*3/uL [place] # (Auto) 0.6 (0.1-1.2) X10*3/uL Eos # (Auto) 0.2 (0.0-0.4) X10*3/uL Baso # (Auto) 0.0 (0.0-0.2) X10*3/uL Abs Immat Gran (auto) 0.01 (0.00-0.03) X10*3/uL Absolute Neuts (auto) 4.3 (2.0-8.3) x10*3/uL Absolute Nucleated RBC 0.000 (0.0-0.012) X10*3/uL Nucleated RBC % (auto) 0.0 (0.0-0.2) /100WBC PT 13.0 (10.0-13.1) SEC INR 1.1 (0.9-1.1) D-Dimer High Sensitivty Cancelled Sodium 145 (135-145) mmol/L Potassium 4.4 (3.3-5.1) mmol/L Chloride 109 H (96-108) mmol/L Carbon Dioxide 29 (22-29) mmol/L Anion Gap 11 L (12-20) BUN 15 (9-16) mg/dL Creatinine 0.73 (0.5-1.4) mg/dL Estim Creat Clear Calc 63.7 Estimated GFR > 60 Random Glucose 92 (60-115) mg/dL Calcium 9.4 D (8.4-10.2) mg/dL Magnesium 2.1 (1.6-2.6) mg/dL Total Bilirubin 0.8 (0.0-1.0) mg/dL Direct Bilirubin 0.2 (0.0-0.5) mg/dL AST 17 (5-31) U/L ALT 12 (0-31) U/L Alkaline Phosphatase 58 (39-117) U/L Troponin I High Sens (<3.5-17.0) ng/L B-Natriuretic Peptide (<100) pg/mL Total Protein 6.2 L (6.5-8.0) g/dL Albumin 3.8 (3.5-5.0) g/dL Urine Color Urine Appearance Urine pH (5.0-9.0) Ur Specific [place] (1.005-1.025) Urine Protein (Neg-Trace) mg/dL Urine Glucose (UA) (Negative) mg/dL Urine Ketones (Negative) mg/dL Urine Blood (Negative) Urine Nitrite (Negative) Ur Leukocyte Esterase (Negative) Urine RBC (0-2) /HPF Urine WBC (0-5) /HPF Ur Squamous Epith Cells (0-2) /HPF Urine Bacteria (None Seen) Hyaline Casts (0-2) /LPF Urine Opiates Screen (Not Detect) Urine Fentanyl Screen (Not Detect) Ur Barbiturates Screen (Not Detect) Ur Phencyclidine Scrn (Not Detect) Ur Amphetamines Screen (Not Detect) U Benzodiazepines Scrn (Not Detect) Urine Cocaine Screen (Not Detect) U Marijuana (THC) Screen (Not Detect) Ethyl Alcohol < 10 mg/dL COVID-19 ([facility]) (Negative) COVID-19 Clin Com 03/20/23 03/20/23 03/20/23 Range/Units 11:11 11:11 11:11 WBC (4.8-10.8) X10*3/uL RBC (4.20-5.50) X10*6/uL Hgb (12.0-16.0) g/dl Hct (37.0-47.0) % MCV (80.0-98.0) fL MCH (27.0-33.0) pg MCHC (31.0-35.0) g/dl RDW (11.0-16.0) % Plt Count (160-400) X10*3/uL MPV Immature Gran % (Auto) (0.0-0.4) % Neut % (Auto) (45-73) % Lymph % (Auto) (20-40) % [place] % (Auto) (2-11) % Eos % (Auto) (0-4) % Baso % (Auto) (0-2) % Lymph # (Auto) (1.2-4.9) X10*3/uL [place] # (Auto) (0.1-1.2) X10*3/uL Eos # (Auto) (0.0-0.4) X10*3/uL Baso # (Auto) (0.0-0.2) X10*3/uL Abs Immat Gran (auto) (0.00-0.03) X10*3/uL Absolute Neuts (auto) (2.0-8.3) x10*3/uL Absolute Nucleated RBC (0.0-0.012) X10*3/uL Nucleated RBC % (auto) (0.0-0.2) /100WBC PT (10.0-13.1) SEC INR (0.9-1.1) D-Dimer High Sensitivty Sodium (135-145) mmol/L Potassium (3.3-5.1) mmol/L Chloride (96-108) mmol/L Carbon Dioxide (22-29) mmol/L Anion Gap (12-20) BUN (9-16) mg/dL Creatinine (0.5-1.4) mg/dL Estim Creat Clear Calc Estimated GFR Random Glucose (60-115) mg/dL Calcium (8.4-10.2) mg/dL Magnesium (1.6-2.6) mg/dL Total Bilirubin (0.0-1.0) mg/dL Direct Bilirubin (0.0-0.5) mg/dL AST (5-31) U/L ALT (0-31) U/L Alkaline Phosphatase (39-117) U/L Troponin I High Sens 4.9 (<3.5-17.0) ng/L B-Natriuretic Peptide 94 (<100) pg/mL Total Protein (6.5-8.0) g/dL Albumin (3.5-5.0) g/dL Urine Color Urine Appearance Urine pH (5.0-9.0) Ur Specific [place] (1.005-1.025) Urine Protein (Neg-Trace) mg/dL Urine Glucose (UA) (Negative) mg/dL Urine Ketones (Negative) mg/dL Urine Blood (Negative) Urine Nitrite (Negative) Ur Leukocyte Esterase (Negative) Urine RBC (0-2) /HPF Urine WBC (0-5) /HPF Ur Squamous Epith Cells (0-2) /HPF Urine Bacteria (None Seen) Hyaline Casts (0-2) /LPF Urine Opiates Screen (Not Detect) Urine Fentanyl Screen (Not Detect) Ur Barbiturates Screen (Not Detect) Ur Phencyclidine Scrn (Not Detect) Ur Amphetamines Screen (Not Detect) U Benzodiazepines Scrn (Not Detect) Urine Cocaine Screen (Not Detect) U Marijuana (THC) Screen (Not Detect) Ethyl Alcohol mg/dL COVID-19 ([facility]) Negative (Negative) COVID-19 Clin Com See Note 03/20/23 03/20/23 03/20/23 Range/Units 11:21 11:21 14:31 WBC (4.8-10.8) X10*3/uL RBC (4.20-5.50) X10*6/uL Hgb (12.0-16.0) g/dl Hct (37.0-47.0) % MCV (80.0-98.0) fL MCH (27.0-33.0) pg MCHC (31.0-35.0) g/dl RDW (11.0-16.0) % Plt Count (160-400) X10*3/uL MPV Immature Gran % (Auto) (0.0-0.4) % Neut % (Auto) (45-73) % Lymph % (Auto) (20-40) % [place] % (Auto) (2-11) % Eos % (Auto) (0-4) % Baso % (Auto) (0-2) % Lymph # (Auto) (1.2-4.9) X10*3/uL [place] # (Auto) (0.1-1.2) X10*3/uL Eos # (Auto) (0.0-0.4) X10*3/uL Baso # (Auto) (0.0-0.2) X10*3/uL Abs Immat Gran (auto) (0.00-0.03) X10*3/uL Absolute Neuts (auto) (2.0-8.3) x10*3/uL Absolute Nucleated RBC (0.0-0.012) X10*3/uL Nucleated RBC % (auto) (0.0-0.2) /100WBC PT (10.0-13.1) SEC INR (0.9-1.1) D-Dimer High Sensitivty Sodium (135-145) mmol/L Potassium (3.3-5.1) mmol/L Chloride (96-108) mmol/L Carbon Dioxide (22-29) mmol/L Anion Gap (12-20) BUN (9-16) mg/dL Creatinine (0.5-1.4) mg/dL Estim Creat Clear Calc Estimated GFR Random Glucose (60-115) mg/dL Calcium (8.4-10.2) mg/dL Magnesium (1.6-2.6) mg/dL Total Bilirubin (0.0-1.0) mg/dL Direct Bilirubin (0.0-0.5) mg/dL AST (5-31) U/L ALT (0-31) U/L Alkaline Phosphatase (39-117) U/L Troponin I High Sens 5.0 (<3.5-17.0) ng/L B-Natriuretic Peptide (<100) pg/mL Total Protein (6.5-8.0) g/dL Albumin (3.5-5.0) g/dL Urine Color Yellow Urine Appearance Cloudy Urine pH 5.5 (5.0-9.0) Ur Specific [place] 1.010 (1.005-1.025) Urine Protein Negative (Neg-Trace) mg/dL Urine Glucose (UA) Negative (Negative) mg/dL Urine Ketones Negative (Negative) mg/dL Urine Blood Negative (Negative) Urine Nitrite Negative (Negative) Ur Leukocyte Esterase Trace H (Negative) Urine RBC 3-5 H (0-2) /HPF Urine WBC 0-5 (0-5) /HPF Ur Squamous Epith Cells 6-10 (0-2) /HPF Urine Bacteria Trace (None Seen) Hyaline Casts 0-2 (0-2) /LPF Urine Opiates Screen Not Detected (Not Detect) Urine Fentanyl Screen Not Detected (Not Detect) Ur Barbiturates Screen Not Detected (Not Detect) Ur Phencyclidine Scrn Not Detected (Not Detect) Ur Amphetamines Screen Not Detected (Not Detect) U Benzodiazepines Scrn Not Detected (Not Detect) Urine Cocaine Screen Not Detected (Not Detect) U Marijuana (THC) Screen POSITIVE H (Not Detect) Ethyl Alcohol mg/dL COVID-19 ([facility]) (Negative) COVID-19 Clin Com Independent Interpretation I performed an independent interpretation of an: EKG (EKG normal sinus rhythm at rate 85. QTC 466. PVCs no longer present when compared to prior. Nonspecific T-wave abnormality has replaced inverted T-waves in inferior leads ) Radiology Impression Discussion of test interpretation with radiology: I have reviewed the radiologist's reading. Independent Historian Clinical information obtained from an independent historian. History obtained from or confirmed by: EMS External Record Review External record reviewed: Inpatient record, Office record, Outpatient record, Prior outpatient labs, Prior outpatient radiology, Primary care record and Outside ED record Tests considered The following testing was considered but not selected: As above Prescription Management I considered prescription management with: Pain Medication Discharge Plan Discharge Clinical Impression: Acute pain of right lower extremity, SOB (shortness of breath) Patient Disposition: Still a Patient Prescriptions: No Action oxycodone-acetaminophen [Percocet] 5-325 mg tablet 1 tab PO Q6H PRN (Reason: pain (scale score 4-6)) 7 Days Qty: 28 0RF Rx Instructions: Partial Fill upon patient request. alprazolam 0.5 mg tablet 1 tab PO TID PRN (Reason: Anxiety) hydrocodone-acetaminophen 7.5-325 mg tablet 1 tab PO Q6H PRN (Reason: Pain (Scale Score 7-10)) albuterol sulfate [ProAir HFA] 90 mcg/actuation HFA aerosol inhaler 1 - 2 puff inhalation Q4-6H PRN (Reason: Wheezing) cholecalciferol (vitamin D3) [Vitamin D3] 25 mcg (1,000 unit) Capsule 1,000 unit PO DAILY morphine [MS Contin] 15 mg tablet extended release 15 mg PO Q12H 3 Days Qty: 6 0RF Rx Instructions: Partial Fill upon patient request. bupropion HCl 150 mg tablet sustained-release 12 hr 1 tab PO DAILY ondansetron HCl 4 mg tablet 1 tab PO Q8H PRN (Reason: Nausea And Vomiting) Hair, Skin and Nails (biotin) 10,000 mcg Tablet,Chewable 10,000 mcg PO DAILY albuterol sulfate 2.5 mg /3 mL (0.083 %) solution for nebulization 2.5 mg inhalation Q6H PRN (Reason: Wheezing) cimetidine 400 mg tablet 1 tab PO DAILY PRN (Reason: Acid Reflux) fluticasone propionate 50 mcg/actuation spray,suspension 1 spray intranasal DAILY vitamin A 2,400 mcg Capsule 2,400 mcg PO DAILY cyanocobalamin (vitamin B-12) 1,000 mcg Tablet 1,000 mcg PO DAILY metoprolol succinate [Toprol XL] 25 mg tablet extended release 24 hr 25 mg PO DAILY
--- NOTE | 2023-03-20 13:06 | PC.NURSE ---
ambulated to bathroom with this RN, pt states at home she uses walking stick to ambulate around her house. provided walker for pt to ambulate back from bathroom
--- NOTE | 2023-03-20 14:19 | MHC.EDTECH ---
with orders from PA, pt was placed on 2L of O@ s/p low O2 on 88 when asleep. PA and RN aware
--- NOTE | 2023-03-20 15:50 | MHC.CM.ED ---
Received case management consult from Oma JUNE. Patient came to the ER due to right leg pain. Work up essentially negative. Met with patient in regards to discharge planning. Patient lives alone, uses a walking stick for mobility and has friends that help her at home. PCP verified. Patient denies having HCP. HCP completed, signed and witnessed. Original given to patient. Copy placed in chart.Patient received 2 Moderna vaccines. Not boosted. Patient is not interested in STR or home VNA. Patient wants to return home. Her friend that has her car and house keys will transport her home. Oma JUNE and Mounika GONSALEZ aware. Continue to monitor for d/c needs.
--- NOTE | 2023-03-20 16:24 | PC.NURSE ---
pt refused str/vna. plan for pt to be discharged
== END 2023-03-20 16:52 | disposition home or self-care (01) ==
PROVIDERS: Emergency Provider Emergency Medicine Emergency Medical Services; PCP Internal Medicine Geriatric Medicine
DX: M79.604 Pain in right leg (principal); R60.0 Localized edema; R06.02 Shortness of breath; Z20.822 Contact with and (suspected) exposure to COVID-19; Z79.899 Other long term (current) drug therapy
CPT/HCPCS: 36415; 71045; 73610; 80048; 80076; 80307; 81001; 83735; 83880; 84484; 85025; 85610; 87635; 93005; 93970; 94640; 99285

== ENCOUNTER 2023-05-04 10:40 | Outpatient (AMB) | payer OTHER, SELFPAY ==
[2023-05-04 10:48] VITALS: BMI 30.5
--- NOTE | 2023-05-04 10:48 | MHC.OFFVIS ---
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 Has Hx of Knee surgery and hip injections, has difficulty walking, in wheelchair today but uses a walking stick. 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 Complaints include pain over varicosities, swelling of lower extremities, cramping, fatigue, and heaviness of the lower extremities. It has been affecting there daily activities including walking as she uses wheelchair. It is noted more so in right leg, but does have left pretibial ulcers. Also of note she has been seen by Hematology Oncology regarding anemia and chronic thrombocytopenia Patient denies any previous venous surgery or injections. Patient denies any history of DVT/ PE. Patient denies any history of phlebitis. Trial of compression includes - [id number] They now present for vascular evaluation regarding their varicose veins. [facility]LY [facility] Medical History Acute on chronic systolic (congestive) heart failure Anxiety Ascending aorta dilatation Asthma Atherosclerotic cardiovascular disease Cardiomyopathy COPD (chronic obstructive pulmonary disease) COPD exacerbation GERD (gastroesophageal reflux disease) Heart failure with reduced ejection fraction Non-rheumatic aortic regurgitation Non-rheumatic aortic stenosis Non-rheumatic mitral regurgitation Osteoarthritis Thrombocytopenia Surgical History Hx of colonoscopy Hx of endoscopy Hx of hysterectomy Hx of oophorectomy Hx of total knee replacement Family History Sister Lung cancer Lupus Sister Lung cancer Maternal Aunt Lupus Social History Household Members: None Household Members Other:: lives alone Housing: Condominium Do you presently have visiting nurse or other home services: No Unable to assess alcohol history related to: Unknown Alcohol intake: current Alcohol intake frequency: a few times a month Patient Tobacco Use Status: Former Tobacco user Quit Date: 19 YRS OLD Second Hand Smoke Exposure: No Substance Use Type: Unknown service: No ( career [employer]) Current occupational status: employed Review of Systems Const Reports as per HPI ENT Reports no additional complaints Card Denies chest pain, Denies chest pain at rest and Denies chest pain with activity Resp Denies chest congestion and Denies cough GI Reports no additional complaints Musc Details: pain over varicosities, aching of lower extremities, swelling, cramping, heaviness and tiredness, itching Denies abnormal gait Skin/Breast Reports pruritus and Denies wounds Neuro Reports no additional complaints and Denies abnormal gait Psych Denies no additional complaints Physical Exam Vital Signs: BMI result Body Mass Index 30.5 Const General: cooperative, healthy appearing and comfortable Orientation/consciousness: oriented to person, oriented to place and oriented to time Neck Carotids: no bruits Chest Chest palpation & inspection: normal inspection of the chest and normal palpation of entire chest wall Resp Effort & Inspection: normal respiratory effort and able to speak in complete sentences Cardio Rate: regular rate Heart sounds: S1 normal heart sound present and S2 normal heart sound present Peripheral pulses: Peripheral pulses 2+ throughout GI Inspection: Yes normal to inspection Skin Other: +2 edema, large rope-like varicosities greater than 4 mm, left pretibial ulcer x2 CEAP Classification C6 - active ulceration Ep - Etiology Primary As - superficial veins P - reflux General skin exam: dry skin Neuro General: oriented to person, oriented to place and oriented to time Extrem Right lower extremity: full ROM, normal capillary refill and edema Left lower extremity: full ROM, normal capillary refill and edema Psych Mental Status: mental status grossly normal Assessment & Plan Assessment & Plan (1) Varicose veins of right lower extremity with inflammation: Code(s): I83.11 - Varicose veins of right lower extremity with inflammation Plan: In short, the patient has evidence of venous insufficiency. I have discussed the pathophysiology with the patient. In addition I have provided informational material regarding venous disease to the patient. We have discussed conservative measures including compression, elevation, and exercise. I have also provided a handout regarding appropriate use of compression stockings and where to purchase good compression stockings as well. I have taken the liberty of ordering venous insufficiency testing with the patient. They will follow up with me after testing. The patient had an opportunity to ask questions regarding the treatment plan. All questions were answered. Imaging studies, laboratory studies and physical exam results were discussed and reviewed in detail. No major barriers to understanding were identified. The patient expressed understanding and agreement with the above treatment plan. The patient is aware they should contact our office by phone for worsening of the current condition or the appearance of new symptoms. Thank you for allowing me to participate in the vascular care of this patient. If you have any questions or concerns regarding the treatment for the above condition please do not hesitate to contact me. The office telephone contact is [phone]. This note is constructed using voice recognition software. While every effort has been made to ensure accuracy, emulsion operator errors may have been included. Thank you for allowing me to participate in the care of your patient. Yours sincerely, Ivan Jalloh MD, FACS, R.P.V.I. Orders: Orders US venous duplex LE BI 1 Week I83.11 - Varicose veins of right lower extremity with inflammation Coding Level of Care Code New Pt Level 4 (23351) Diagnoses Varicose veins of right lower extremity with inflammation I83.11
== END 2023-05-04 11:15 | disposition home or self-care (01) ==
PROVIDERS: PCP Internal Medicine Geriatric Medicine; Visit Provider Surgery Vascular Surgery
DX: I83.11 Varicose veins of right lower extremity with inflammation (principal)
CPT/HCPCS: 99203

== ENCOUNTER → 2023-05-04 10:40 | Outpatient (BNVA) | payer OTHER, SELFPAY | PROVIDERS: PCP Internal Medicine Geriatric Medicine; Visit Provider Surgery Vascular Surgery | DX: I83.11 Varicose veins of right lower extremity with inflammation (principal) | CPT/HCPCS: 99202 ==

== ENCOUNTER 2023-06-23 11:35 | Outpatient (REF) | payer OTHER, SELFPAY | END 2023-06-23 11:36 | disposition home or self-care (01) | LOC: HO.HHCL 11:35 | PROVIDERS: Visit Provider Registered Nurse | DX: D69.6 Thrombocytopenia, unspecified (principal) | CPT/HCPCS: 36415; 80048; 85025; 85610 ==

== ENCOUNTER 2023-09-05 12:28 | Outpatient (REF) | payer OTHER, SELFPAY ==
[2023-09-05 13:29] LABS: SCAN SMEAR FLAG 1
[2023-09-05 13:31] LABS: Basophils Absolute Auto 0.1 X10*3/uL (0.0-0.2); Eosinophils Absolute Auto 0.1 X10*3/uL (0.0-0.4); Eosinophils Percent Auto 2.1 % (0-4); Hematocrit 24.7 % (37.0-47.0); Imm Gran Abs Auto 0.01 X10*3/uL (0.00-0.03); Imm Gran Pct Auto 0.1 % (0.0-0.4); Lymphocytes Absolute Auto 1.1 X10*3/uL (1.2-4.9); Lymphocytes Percent Auto 16.3 % (20-40); Mean Corpuscular HGB Conc 27.1 g/dl (31.0-35.0); Mean Corpuscular Hemoglobin 22.1 pg (27.0-33.0); Mean Corpuscular Volume 81.5 fL (80.0-98.0); Monocytes Absolute Auto 0.6 X10*3/uL (0.1-1.2); Monocytes Percent Auto 9.3 % (2-11); Neutrophils Absolute Auto 4.8 x10*3/uL (2.0-8.3); Neutrophils Percent Auto 71.2 % (45-73); Red Blood Count 3.03 X10*6/uL (4.20-5.50); Red Cell Distribution Width 17.9 % (11.0-16.0); White Blood Count 6.7 X10*3/uL (4.8-10.8)
[2023-09-05 14:09] LABS: PLT ABN DIST 1; Platelet Count 50 X10*3/uL (160-400)
[2023-09-05 14:10] LABS: Hemoglobin 6.7 g/dl (12.0-16.0); MANUAL DIFF FLAG NO
[2023-09-05 14:19] LABS: Iron 13 mcg/dL (30-160); Percent Iron Saturation 4 % (15-50); Total Iron Binding Capacity 316 mcg/dL (228-428); Unsaturated Iron Binding 303 ug/dL
[2023-09-05 14:37] LABS: Ferritin 17 ng/mL (10-250)
== END 2023-09-05 12:29 | disposition home or self-care (01) ==
LOC: HO.HHCL 12:28
PROVIDERS: Visit Provider Internal Medicine Geriatric Medicine
DX: D50.9 Iron deficiency anemia, unspecified (principal)
CPT/HCPCS: 36415; 82728; 83540; 85025

== ENCOUNTER 2023-09-13 14:00 | Emergency (ER) | payer OTHER, SELFPAY ==
[2023-09-13] VITALS (14 sets, daily range): BP systolic 97–151; BP diastolic 33–72; PULSE 82–92; RESP 12–25; TEMP 36.6–37.3; O2SAT 92–98; BMI 31.8
--- NOTE | 2023-09-13 14:35 | ED_ITS ---
HPI - Recheck/Abnormal Lab/Rx General Chief Complaint: Recheck/Abnormal Lab/Rx Stated Complaint: ABN LABS PER EMS Time Seen by Provider: 09/13/23 14:12 Source: patient and EMS Mode of arrival: EMS Limitations: no limitations History of Present Illness HPI narrative: Patient comes to the emergency room complaining of low hemoglobin levels. Patient states that she is known to have ITP and chronic iron deficiency. Patient states that her blood work from September 05 came back, her hemoglobin is 6.7. Patient states that on September 06, she was supposed to go to hematology/oncology and get a blood transfusion, but she was too busy. Patient states that now she is feeling very fatigued, shortness of breath with exertion and knows that she is due for a blood transfusion. Patient denies any blood in the stool. Patient states that in 2020, he had an upper endoscopy, colonoscopy and capsule endoscopy, all negative. Related Data Home Medications Medication Instructions Recorded Confirmed albuterol sulfate 90 mcg/actuation 1 - 2 puff inhalation Q4-6H PRN 12/07/20 09/13/23 aerosol inhaler (ProAir HFA) Wheezing alprazolam 0.5 mg tablet 1 tab PO TID PRN Anxiety 12/07/20 09/13/23 hydrocodone 7.5 mg-acetaminophen 1 tab PO Q6H PRN Pain (Scale Score 12/07/20 09/13/23 325 mg tablet 7-10) cholecalciferol (vitamin D3) 25 1,000 unit PO DAILY 02/07/21 09/13/23 mcg (1,000 unit) capsule (Vitamin D3) albuterol sulfate 2.5 mg/3 mL 2.5 mg inhalation Q6H PRN Wheezing 01/27/22 09/13/23 (0.083 %) solution for nebulization cyanocobalamin (vitamin B-12) 1,000 mcg PO DAILY 01/27/22 09/13/23 1,000 mcg tablet fluticasone propionate 50 1 spray intranasal DAILY PRN 01/27/22 09/13/23 mcg/actuation nasal Congestion spray,suspension vitamin A 2,400 mcg capsule 2,400 mcg PO DAILY 01/27/22 09/13/23 metoprolol succinate 25 mg 25 mg PO DAILY 05/17/22 09/13/23 tablet,extended release 24 hr (Toprol XL) biotin 10,000 mcg chewable tablet 10,000 mcg PO DAILY 12/07/22 09/13/23 (Hair, Skin and Nails (biotin)) bupropion HCl 150 mg tablet,12 hr 1 tab PO DAILY 12/07/22 09/13/23 sustained-release ondansetron HCl 4 mg tablet 1 tab PO Q8H PRN Nausea And 12/07/22 09/13/23 Vomiting Previous Rx's Medication Instructions Recorded oxycodone-acetaminophen 5 mg-325 1 tab PO Q6H PRN pain (scale score 12/19/22 mg tablet (Percocet) 4-6) 7 days #28 tabs Allergies Allergy/AdvReac Type Severity Reaction Status Date / Time amoxicillin Allergy Unknown Hives Verified 05/04/23 10:56 Penicillins [PENICILLINS] Allergy Unknown Hives Verified 05/04/23 10:56 Sulfa (Sulfonamide Allergy Unknown Hives Verified 05/04/23 10:56 Antibiotics) [SULFA (SULFONAMIDE ANTIBIOTICS)] Review of Systems 2 Review of Systems: Constitutional : No Weight loss, No Fever, No Chills, No Night Sweats, complaining of fatigue and weakness ENT/Mouth : No Hearing loss, No Ear Pain, No Nasal Congestion, No Sinus Pain, No Hoarseness, No sore throat, No Rhinorrhea, No Swallowing Difficulty Eyes: No Eye Pain, No Swelling, No Redness, No Foreign Body, No Discharge, No Vision Changes Cardiovascular : No Chest Pain, No SOB, No Dyspnea on Exertion, No Orthopnea, No Edema, No Palpitations Respiratory : No Cough, No Sputum, No Wheezing, No Smoke Exposure, No Dyspnea Gastrointestinal : No Nausea, No Vomiting, No Diarrhea, No Constipation, No abdominal Pain, No Hematochezia, No Melena Genitourinary : no irregular bleeding, No Dysuria, No Urinary Frequency, No Hematuria, No Urinary Incontinence, No Urgency, No Flank Pain, No Urinary Flow Changes, No Hesitancy Musculoskeletal : No joint pain, No Myalgias, No Joint Swelling Skin : No Skin Lesions, No rash Neuro : No Weakness, No Numbness, No Paresthesias, No Loss of Consciousness, No Dizziness, No Headache Psych : No Anxiety/Panic, No Depression, No SI/HI/AH/VH, No Social Issues, Heme/Lymph: No Bruising, No Bleeding,No Lymphadenopathy Endocrine : No Polyuria, No Polydipsia, No Temperature Intolerance [facility] Past Medical History Medical History Ascending aorta dilatation Atherosclerotic cardiovascular disease Non-rheumatic mitral regurgitation Non-rheumatic aortic regurgitation Non-rheumatic aortic stenosis Cardiomyopathy COPD exacerbation Heart failure with reduced ejection fraction Acute on chronic systolic (congestive) heart failure COPD (chronic obstructive pulmonary disease) Thrombocytopenia Osteoarthritis GERD (gastroesophageal reflux disease) Anxiety Asthma Surgical History Hx of colonoscopy Hx of endoscopy Hx of hysterectomy Hx of oophorectomy Hx of total knee replacement Family History Family History Sister Lung cancer Lupus Sister Lung cancer Maternal Aunt Lupus Social History Social History Household Members: None Household Members Other:: lives alone Housing: Condominium Do you presently have visiting nurse or other home services: No Unable to assess alcohol history related to: Unknown Alcohol intake: current Alcohol intake frequency: a few times a month Patient Tobacco Use Status: Former Tobacco user Quit Date: 19 YRS OLD Second Hand Smoke Exposure: No Substance Use Type: Unknown Advance Directives: Yes Advance Directives on File: Yes Advance Directives Date on File: 03/20/23 service: No ( career [employer]) Current occupational status: employed Physical Exam 2 Vital Signs: Vital Signs: Last Vital Signs Temp 98.4 F 09/13/23 23:48 Pulse 86 09/14/23 04:00 Resp 16 09/14/23 04:00 BP 121/40 L 09/14/23 04:00 Pulse Ox 96 09/14/23 04:00 O2 Del Method Nasal Cannula 09/14/23 04:00 O2 Flow Rate 2 09/14/23 04:00 BMI result Body Mass Index 31.8 Const: Other: Appearance: Alert. Oriented X3. No acute distress. Eyes: Pupils equal, round and reactive to light. ENT: Pharynx normal. Neck: Normal inspection. Neck supple. No lymph nodes noted. No crepitus CVS: Normal heart rate and rhythm. Pulses normal. Normal S1 and S2 Respiratory: No respiratory distress. Breath sounds normal. No Wheezing. No rales Abdomen: Soft and nontender. No rigidity. No distention. Skin: Skin warm and dry. Normal skin color. Normal skin turgor. Extremities: No lower extremity edema. No Lacerations. No Rash Neuro: Oriented X 3. No motor deficit. No sensory deficit. Moving all extremities. No slurred speech. CN 2 through 12 grossly intact Psych: calm, cooperative, normal affect Medications Administered Discontinued Medications Generic Name Dose Route Start Last Admin Trade Name Freq PRN Reason Stop Dose Admin Hydrocodone Bitart/Acetaminophen 1 tab 09/13/23 16:07 09/13/23 16:12 Hydrocodone Bit/Acetam 7.5/325 Tablet PO 09/13/23 16:08 1 tab ONCE ONE Administration Alprazolam 0.5 mg 09/13/23 20:25 09/13/23 20:42 Alprazolam 0.5 Mg Tablet PO 09/13/23 20:26 0.5 mg ONCE ONE Administration Sodium Chloride 100 mls @ 100 mls/hr 09/13/23 14:35 09/13/23 19:13 Ns IV 09/13/23 15:34 Infused ONCE ONE Infusion Sodium Chloride 100 mls @ 100 mls/hr 09/13/23 14:35 09/13/23 23:49 Ns IV 09/13/23 15:34 Infused ONCE ONE Infusion Medical Decision Making Lab Data 09/13/23 14:34 09/13/23 14:34 Labs: Lab Results 09/13/23 09/13/23 Range/Units 14:34 14:38 WBC 7.3 (4.8-10.8) X10*3/uL RBC 2.66 L (4.20-5.50) X10*6/uL Hgb 5.8 L* (12.0-16.0) g/dl Hct 21.3 L (37.0-47.0) % MCV 80.1 (80.0-98.0) fL MCH 21.8 L (27.0-33.0) pg MCHC 27.2 L (31.0-35.0) g/dl RDW 18.8 H (11.0-16.0) % Plt Count 63 L D (160-400) X10*3/uL MPV Not Reportable Immature Gran % (Auto) 0.1 (0.0-0.4) % Neut % (Auto) 78.6 H (45-73) % Lymph % (Auto) 9.8 L (20-40) % [place] % (Auto) 10.0 (2-11) % Eos % (Auto) 0.8 (0-4) % Baso % (Auto) 0.7 (0-2) % Lymph # (Auto) 0.7 L (1.2-4.9) X10*3/uL [place] # (Auto) 0.7 (0.1-1.2) X10*3/uL Eos # (Auto) 0.1 (0.0-0.4) X10*3/uL Baso # (Auto) 0.1 (0.0-0.2) X10*3/uL Abs Immat Gran (auto) 0.01 (0.00-0.03) X10*3/uL Absolute Neuts (auto) 5.8 (2.0-8.3) x10*3/uL Absolute Nucleated RBC 0.000 (0.0-0.012) X10*3/uL Nucleated RBC % (auto) 0.0 (0.0-0.2) /100WBC Smear Tech's Comments VERIFIED PT 13.7 H (11.1-13.3) SEC INR 1.1 (0.9-1.1) APTT 30.6 (26.0-36.4) SEC Sodium 144 (135-145) mmol/L Potassium 4.4 (3.3-5.1) mmol/L Chloride 110 H (96-108) mmol/L Carbon Dioxide 26 (22-29) mmol/L Anion Gap 12 (12-20) BUN 24 H (9-16) mg/dL Creatinine 0.79 (0.5-1.4) mg/dL Estim Creat Clear Calc 61.5 Estimated GFR > 60 Random Glucose 102 (60-115) mg/dL Calcium 9.1 (8.4-10.2) mg/dL Magnesium 2.0 (1.6-2.6) mg/dL Total Bilirubin 0.4 (0.0-1.0) mg/dL Direct Bilirubin 0.2 (0.0-0.5) mg/dL AST 34 H (5-31) U/L ALT 28 (0-31) U/L Alkaline Phosphatase 51 (39-117) U/L Total Protein 6.3 L (6.5-8.0) g/dL Albumin 4.0 (3.5-5.0) g/dL Blood Type O Positive Antibody Screen NEGATIVE Crossmatch See Detail Discharge Plan Discharge Clinical Impression: Anemia Patient Disposition: Home, Self-Care Instructions: Anemia (ED) Additional Instructions: 1. Resume all home medications as prescribed. 2. Follow-up with your primary care doctor in the next 1-2 days. Return to the ER for any worsening symptoms. Prescriptions: No Action oxycodone-acetaminophen [Percocet] 5-325 mg tablet 1 tab PO Q6H PRN (Reason: pain (scale score 4-6)) 7 Days Qty: 28 0RF Rx Instructions: Partial Fill upon patient request. alprazolam 0.5 mg tablet 1 tab PO TID PRN (Reason: Anxiety) hydrocodone-acetaminophen 7.5-325 mg tablet 1 tab PO Q6H PRN (Reason: Pain (Scale Score 7-10)) albuterol sulfate [ProAir HFA] 90 mcg/actuation HFA aerosol inhaler 1 - 2 puff inhalation Q4-6H PRN (Reason: Wheezing) cholecalciferol (vitamin D3) [Vitamin D3] 25 mcg (1,000 unit) Capsule 1,000 unit PO DAILY bupropion HCl 150 mg tablet sustained-release 12 hr 1 tab PO DAILY ondansetron HCl 4 mg tablet 1 tab PO Q8H PRN (Reason: Nausea And Vomiting) Hair, Skin and Nails (biotin) 10,000 mcg Tablet,Chewable 10,000 mcg PO DAILY albuterol sulfate 2.5 mg /3 mL (0.083 %) solution for nebulization 2.5 mg inhalation Q6H PRN (Reason: Wheezing) fluticasone propionate 50 mcg/actuation spray,suspension 1 spray intranasal DAILY PRN (Reason: Congestion) vitamin A 2,400 mcg Capsule 2,400 mcg PO DAILY cyanocobalamin (vitamin B-12) 1,000 mcg Tablet 1,000 mcg PO DAILY metoprolol succinate [Toprol XL] 25 mg tablet extended release 24 hr 25 mg PO DAILY Referrals: Name,MD Joseph [Primary Care Provider] -
[2023-09-13 14:47] LABS: Basophils Absolute Auto 0.1 X10*3/uL (0.0-0.2); Basophils Percent Auto 0.7 % (0-2); Eosinophils Absolute Auto 0.1 X10*3/uL (0.0-0.4); Eosinophils Percent Auto 0.8 % (0-4); Hematocrit 21.3 % (37.0-47.0); Imm Gran Abs Auto 0.01 X10*3/uL (0.00-0.03); Imm Gran Pct Auto 0.1 % (0.0-0.4); Lymphocytes Absolute Auto 0.7 X10*3/uL (1.2-4.9); Lymphocytes Percent Auto 9.8 % (20-40); MANUAL DIFF FLAG SCAN; Mean Corpuscular HGB Conc 27.2 g/dl (31.0-35.0); Mean Corpuscular Hemoglobin 21.8 pg (27.0-33.0); Mean Corpuscular Volume 80.1 fL (80.0-98.0); Monocytes Absolute Auto 0.7 X10*3/uL (0.1-1.2); Neutrophils Absolute Auto 5.8 x10*3/uL (2.0-8.3); Neutrophils Percent Auto 78.6 % (45-73); PLT CLUMP 1; Red Blood Count 2.66 X10*6/uL (4.20-5.50); Red Cell Distribution Width 18.8 % (11.0-16.0); SCAN SMEAR FLAG 1
[2023-09-13 14:49] LABS: Hemoglobin 5.8 g/dl (12.0-16.0)
[2023-09-13 14:58] LABS: INTERNATIONAL NORM RATIO 1.1 (0.9-1.1); Prothrombin Time 13.7 SEC (11.1-13.3)
[2023-09-13 14:59] LABS: Alanine Aminotransferase 28 U/L (0-31); Alkaline Phosphatase 51 U/L (39-117); Anion Gap 12 (12-20); Aspartate Amino Transferase 34 U/L (5-31); Bilirubin Direct 0.2 mg/dL (0.0-0.5); Bilirubin Total 0.4 mg/dL (0.0-1.0); Blood Urea Nitrogen 24 mg/dL (9-16); Calcium 9.1 mg/dL (8.4-10.2); Carbon Dioxide 26 mmol/L (22-29); Chloride 110 mmol/L (96-108); Creatinine Clr Calc Pharmacy 61.5; Estimated Glomerular Filt Rate > 60; Glucose Random 102 mg/dL (60-115); Potassium 4.4 mmol/L (3.3-5.1); Sodium 144 mmol/L (135-145); Total Protein 6.3 g/dL (6.5-8.0)
[2023-09-13 15:01] LABS: Partial Thromboplastin Time 30.6 SEC (26.0-36.4)
[2023-09-13 15:19] LABS: White Blood Count 7.3 X10*3/uL (4.8-10.8)
[2023-09-13 15:31] LABS: Platelet Count 63 X10*3/uL (160-400); SLIDE REVIEW VERIFIED
--- NOTE | 2023-09-13 15:40 | PC.NURSE ---
Alert and oriented, transfusion consent signed, vss.
[2023-09-13] MEDS: HYDROcodone Bit/Acetam 7.5/325 TABLET 1 TAB PO (16:12)
--- NOTE | 2023-09-13 18:00 | PC.NURSE ---
Alert and oriented, blood infusing per order, no s/s of adverse reaction. Provided with food and fluids at patients request. Reports no longer having right knee pain. Repositioned in bed
[2023-09-13] MEDS: ALPRAZolam 0.5 MG TABLET PO (20:42)
--- NOTE | 2023-09-13 21:25 | PC.NURSE ---
this rn assumed care of pt @ 190. pt calm and cooperative 2nd unit f PRBC infusion initiated @ 2002. vss negative for signs and symptoms of transfusion reaction . pt denies SOB/ CP. pt medicated according to nov. pt adjusted in bed and provided with fresh linens lights dimmed to promote rest
--- NOTE | 2023-09-13 22:33 | PHA.MEDREC ---
Pharmacy Consult ? Medication Reconciliation Pharmacy has completed the medication reconciliation. Patient reported medications. Arti Cordova, SamanthaD
--- NOTE | 2023-09-13 23:33 | PC.NURSE ---
2nd unit of PRBC transfused pt tolerated well negative for signs and symptoms of transfusion reaction vss
[2023-09-14] VITALS: BP 151/72; PULSE 88; RESP 19; O2SAT 98
[2023-09-14 02:00] VITALS: BP 147/66; PULSE 92; RESP 16; O2SAT 96
[2023-09-14 04:00] VITALS: BP 121/40; PULSE 86; RESP 16; O2SAT 96
--- NOTE | 2023-09-14 05:48 | PC.NURSE ---
late entry- pt explains to this rn that friend has car keys that have home barriga on them. pt states will not be calling friend to come get her until 7am due to hour of night lost charge card clerk to bedside. per lost charge card clerk pt to move to link bed to await ride home pt continues to ask for home dose of vicodin. this rn made dr rich aware of pt asking for vicodin x 3. no new orders place lost charge card clerk made aware
--- NOTE | 2023-09-14 07:46 | PC.NURSE ---
assumed care of pt at 0700. pt a&o x4, restless, cooperative. pt resting in hallway, awaiting ride. rr even/unlabored. plan of care ongoing.
== END 2023-09-14 07:56 | disposition home or self-care (01) ==
PROVIDERS: Emergency Provider Emergency Medicine; PCP Internal Medicine Geriatric Medicine
DX: D64.9 Anemia, unspecified (principal); D69.3 Immune thrombocytopenic purpura; I50.20 Unspecified systolic (congestive) heart failure; J44.9 Chronic obstructive pulmonary disease, unspecified
CPT/HCPCS: 36415; 36430; 80048; 80076; 83735; 85025; 85610; 85730; 86850; 86900; 86901; 86923; 96360; 96361; 99285; P9016

== ENCOUNTER 2024-01-30 14:13 | Emergency (ER) | payer OTHER, SELFPAY ==
[2024-01-30] VITALS (16 sets, daily range): BP systolic 100–144; BP diastolic 42–83; PULSE 81–104; RESP 15–18; TEMP 36.7–37.1; O2SAT 95–100; BMI 30.1
--- NOTE | ~2024-01-30 | XR_ITS ---
EXAMINATION: XR CHEST CLINICAL INFORMATION: Shortness of breath. Cough. COMPARISON: Chest radiograph dated 03/20/2023. TECHNIQUE: Frontal view of the chest was obtained. FINDINGS: The cardiac silhouette remains stable in size. There is calcific atherosclerotic disease of the aorta. There is a patchy opacity at the right lung base. An infectious etiology is not excluded. The left lung is clear. There is no pleural effusion or pneumothorax. No acute osseous abnormality. XR/XR chest 1V IMPRESSION: There is a subtle patchy opacity at the right lung base. Infectious etiology cannot be excluded. The left lung is clear.
--- NOTE | 2024-01-30 14:36 | ED.GENADULT ---
HPI - General Adult General Chief complaint: Recheck/Abnormal Lab/Rx Stated complaint: Transfusion Sent By Time Seen by Provider: 01/30/24 15:58 Source: patient and family Mode of arrival: ambulatory Limitations: no limitations History of Present Illness HPI narrative: Patient is a 78yo female, presents from PCP office for anemia, routine appointment, chronic anemia, reportedly of unknown etiology by her account, has been anemic since she was a teenager. past few years has been worsening. Reports having had 16 transfusionsl ast year alone. She endorsed shortness of breath, insomnia, daytime fatigue, dizziness, weakness and her PCP was conncerned she looked more pale than usual. Referred to ED for blood transfusion. Denies Chest pain, nausea, vomiting, abd paon, hematochezia, melena, hematuria, vaginal bleeding, recent injury or falls. Related Data Home Medications ?Medication ?Instructions ?Recorded ?Confirmed albuterol sulfate 90 mcg/actuation 1 - 2 puff inhalation Q4-6H PRN 12/07/20 09/13/23 aerosol inhaler (ProAir HFA) Wheezing alprazolam 0.5 mg tablet 1 tab PO TID PRN Anxiety 12/07/20 09/13/23 hydrocodone 7.5 mg-acetaminophen 1 tab PO Q6H PRN Pain (Scale Score 12/07/20 09/13/23 325 mg tablet 7-10) cholecalciferol (vitamin D3) 25 1,000 unit PO DAILY 02/07/21 09/13/23 mcg (1,000 unit) capsule (Vitamin D3) albuterol sulfate 2.5 mg/3 mL 2.5 mg inhalation Q6H PRN Wheezing 01/27/22 09/13/23 (0.083 %) solution for nebulization cyanocobalamin (vitamin B-12) 1,000 mcg PO DAILY 01/27/22 09/13/23 1,000 mcg tablet fluticasone propionate 50 1 spray intranasal DAILY PRN 01/27/22 09/13/23 mcg/actuation nasal Congestion spray,suspension vitamin A 2,400 mcg capsule 2,400 mcg PO DAILY 01/27/22 09/13/23 metoprolol succinate 25 mg 25 mg PO DAILY 05/17/22 09/13/23 tablet,extended release 24 hr (Toprol XL) biotin 10,000 mcg chewable tablet 10,000 mcg PO DAILY 12/07/22 09/13/23 (Hair, Skin and Nails (biotin)) bupropion HCl 150 mg tablet,12 hr 1 tab PO DAILY 12/07/22 09/13/23 sustained-release ondansetron HCl 4 mg tablet 1 tab PO Q8H PRN Nausea And 12/07/22 09/13/23 Vomiting Previous Rx's ?Medication ?Instructions ?Recorded oxycodone-acetaminophen 5 mg-325 1 tab PO Q6H PRN pain (scale score 12/19/22 mg tablet (Percocet) 4-6) 7 days #28 tabs azithromycin 250 mg tablet 250 mg PO DAILY 4 days #4 tabs 01/30/24 cefpodoxime 200 mg tablet 200 mg PO BID #14 tabs 01/30/24 Allergies Allergy/AdvReac Type Severity Reaction Status Date / Time amoxicillin Allergy Unknown Hives Verified 01/30/24 14:34 Penicillins [PENICILLINS] Allergy Unknown Hives Verified 01/30/24 14:34 Sulfa (Sulfonamide Allergy Unknown Hives Verified 01/30/24 14:34 Antibiotics) [SULFA (SULFONAMIDE ANTIBIOTICS)] Review of Systems Review of Systems: Yes all other systems are reviewed and are negative PMFSH Past Medical History Attestation statement: The following information was validated with the patient. Source: old records reviewed Medical History Ascending aorta dilatation Atherosclerotic cardiovascular disease Non-rheumatic mitral regurgitation Non-rheumatic aortic regurgitation Non-rheumatic aortic stenosis Cardiomyopathy COPD exacerbation Heart failure with reduced ejection fraction Acute on chronic systolic (congestive) heart failure COPD (chronic obstructive pulmonary disease) Thrombocytopenia Osteoarthritis GERD (gastroesophageal reflux disease) Anxiety Asthma Surgical History Hx of colonoscopy Hx of endoscopy Hx of oophorectomy Hx of hysterectomy Hx of total knee replacement Family History Family History Sister Lung cancer Lupus Sister Lung cancer Maternal Aunt Lupus Social History Social History Household Members: None Household Members Other:: lives alone Housing: Condominium Do you presently have visiting nurse or other home services: No Unable to assess alcohol history related to: Unknown Alcohol intake: current Alcohol intake frequency: a few times a month Patient Tobacco Use Status: Former Tobacco user Quit Date: 20 YRS OLD Smoked in Last 30 Days: No Second Hand Smoke Exposure: No Use of substances other than those prescribed or required for medical reasons: No Substance Use Type: Unknown Advance Directives: Yes Advance Directives on File: Yes Advance Directives Date on File: 03/20/23 Do you have a plan to hurt others: No Plan service: No ( career [employer]) Current occupational status: employed Physical Exam ED Vital Signs: Vital Signs - 24 hr 01/30/24 14:32 01/30/24 15:56 01/30/24 17:14 Temperature 98.3 F 98.4 F 98.6 F Pulse Rate 81 87 84 Respiratory Rate 18 16 18 Blood Pressure 130/42 L 103/54 L 114/49 L Pulse Oximetry 96 98 97 Oxygen Delivery Method Room Air Room Air Room Air 01/30/24 17:27 01/30/24 17:38 01/30/24 18:00 Temperature 98.6 F 98.6 F 98.5 F Pulse Rate 87 84 91 Respiratory Rate 18 18 18 Blood Pressure 122/58 L 122/58 L 135/83 Pulse Oximetry 100 Oxygen Delivery Method Room Air 01/30/24 18:28 01/30/24 19:53 01/30/24 20:05 Temperature 98.1 F 98.4 F 98.3 F Pulse Rate 89 104 H 98 Respiratory Rate 16 16 18 Blood Pressure 100/66 130/54 L 139/57 L Pulse Oximetry 95 97 Oxygen Delivery Method Room Air Room Air 01/30/24 20:21 01/30/24 20:30 01/30/24 20:45 Temperature 98.6 F 98.6 F 98.5 F Pulse Rate 92 94 94 Respiratory Rate 18 18 18 Blood Pressure 136/54 L 138/54 L 124/57 L Pulse Oximetry Oxygen Delivery Method 01/30/24 21:51 01/30/24 22:11 01/30/24 22:28 Temperature 98.7 F 98.4 F 98.4 F Pulse Rate 85 85 87 Respiratory Rate 15 16 18 Blood Pressure 136/54 L 136/56 L 144/56 H Pulse Oximetry 97 Oxygen Delivery Method Room Air 01/30/24 22:50 Temperature 98.4 F Pulse Rate 87 Respiratory Rate 18 Blood Pressure 144/56 H Pulse Oximetry 95 Oxygen Delivery Method Room Air BMI result Body Mass Index 30.1 Appearance: Alert.?Oriented to person, place and time. No acute distress.?Normal affect. Eyes: Pupils equal, round and reactive to light.? ENT: Pharynx normal.?? Neck: Normal inspection.? Neck supple.?? CVS: Heart sounds normal S1 S2 with mid systolic murmur, decreshendo, creshendo. Normal heart rate and rhythm.? Pulses normal.?? Respiratory: No respiratory distress.? Lung sounds diminished in the right lower lobe, rales to the left lower lobe Abdomen: Soft and non-tender. Normoactive bowel sounds. ? Skin: Skin warm and dry.? Skin pale Extremities: No lower extremity edema.? No calf ttp? Neuro: Moves all extremities spontaneously. Sensation intact bilaterally. No focal neuro deficits. Ambulates with slow unsteady gait Course Course Course Narrative: RME: Triage written by SHAYLEE Gilman. 78-year-old female presents to the ED for symptomatic anemia. Blood cell count 5.2. Patient's repeat labs ordered. Blood ordered. Patient brought to the ED. Patient looks pale. lungs clear. Medications Administered Discontinued Medications Generic Name Dose Route Start Last Admin Trade Name Freq PRN Reason Stop Dose Admin Hydrocodone Bitart/Acetaminophen 1 tab 01/30/24 19:10 01/30/24 19:21 Hydrocodone Bit/Acetam 7.5/325 Tablet PO 01/30/24 19:11 1 tab ONCE ONE Administration Azithromycin 500 mg 01/30/24 22:29 01/30/24 22:37 Azithromycin 500 Mg Tablet PO 01/30/24 22:30 500 mg ONCE ONE Administration Sodium Chloride 100 mls @ 100 mls/hr 01/30/24 14:35 01/30/24 22:15 Ns IV 01/30/24 15:34 Not Given ONCE ONE Sodium Chloride 100 mls @ 100 mls/hr 01/30/24 14:35 01/30/24 22:16 Ns IV 01/30/24 15:34 Infused ONCE ONE Infusion Sodium Chloride 1,000 mls @ 999 mls/hr 01/30/24 17:30 01/30/24 22:52 Ns IV 01/30/24 18:30 Infused .Q1H1M ROBERTO Infusion Medical Decision Making Medical Decision Making MDM Narrative: Patient is a 78 y.o. female, pmhx of ASCVD, aortic regurgitation and stenosis, mitral regurgitation, cardiomyopathy, HFrEF 45-50% (01/2022), COPD, iron deficiency anemia, chronic idiopathic thrombocytopenia, anxiety present to emergency department for evaluation of symptomatic anemia increasing shortness of breath especially on exertion, weakness, dizziness, and outpatient anemia referred to emergency department by PCP for blood transfusion. She appears pale, fatigued. Blood pressure is soft; 103/54, no tachycardia, afebrile. No tachypnea or hypoxia. She does have diminished lung sounds on the right, mild rales in the left lower lobe, reports a recent upper respiratory infection a few weeks back, with a mild cough since then. Will obtain CBC to evaluate for leukocytosis/ anemia, CMP to evaluate for abnormal electrolytes /abnormal renal function/ abnormal hepatic/biliary function, Chest x-ray to evaluate for consolidation/ infiltrate/ mass/ pulmonary congestion. She declines occult stool testing, reports no history of hematochezia or melena, reports a history of endoscopy and colonoscopy which she states were without abnormality. On review of her chart she underwent endoscopy, capsule endoscopy, colonoscopy in 2021 which showed patchy gastritis, bulbar duodenitis, minimal esophagitis, and chronic antral erosions but no evidence of acute bleeding. She declines any imaging studies of the abdomen and pelvis. Suspect less likely to have acute diverticulitis or other acute intra-abdominal processes. She is amenable to having a chest x-ray obtained, she does have a history of COPD in the setting of recent upper respiratory infection, diminished lung sounds in the right lower lobe and mild rales in the left lower lobe, BNP pending, concern for COPD exacerbation versus pneumonia versus CHF exacerbation. She has a chronic anemia for which she received multiple transfusions over the past year, by her account she feels at baseline for her symptomatic anemia. She feels strongly about discharge home after transfusion today. Transfusions completed, pallor is improving. Reports improvement in shortness of breath. Ambulatory with steady gait, no tachypnea or dyspnea. Declines repeat CBC, requesting discharge home. CXR concerning for right lower lobe pneumonia, in the setting of recent upper respiratory infection will treat accordingly with azithromycin and cefpodoxime. Advised close outpatient follow-up with primary care provider and strict return precautions. Differential Diagnosis Differential Diagnoses: The differential diagnosis associated with the presentation includes (See narrative above) Admission/Observation Consideration of admission/observation: Escalation of care including admission/observation considered (See narrative above) Lab Data MDM Lab Attestation statement: I reviewed the patient's lab results. Microcytic anemia, H&H 6 and 21.8, chronic thrombocytopenia consistent with baseline. Mild hypernatremia with sodium of 147, BUN 18 appears consistent with prior labs, creatinine slightly increased from prior at 1.01, suspect secondary to hypovolemia. 01/30/24 16:35 01/30/24 15:45 Labs: Lab Results 01/30/24 01/30/24 01/30/24 Range/Units 15:45 16:35 16:58 WBC 5.6 (4.8-10.8) X10*3/uL RBC 2.73 L (4.20-5.50) X10*6/uL Hgb 6.0 L* (12.0-16.0) g/dl Hct 21.8 L (37.0-47.0) % MCV 79.9 L (80.0-98.0) fL MCH 22.0 L (27.0-33.0) pg MCHC 27.5 L (31.0-35.0) g/dl RDW 17.9 H (11.0-16.0) % Plt Count 66 L (160-400) X10*3/uL MPV Not Reportable Immature Gran % (Auto) 0.4 (0.0-0.4) % Neut % (Auto) 71.6 (45-73) % Lymph % (Auto) 15.3 L (20-40) % [place] % (Auto) 9.6 (2-11) % Eos % (Auto) 2.0 (0-4) % Baso % (Auto) 1.1 (0-2) % Lymph # (Auto) 0.9 L (1.2-4.9) X10*3/uL [place] # (Auto) 0.5 (0.1-1.2) X10*3/uL Eos # (Auto) 0.1 (0.0-0.4) X10*3/uL Baso # (Auto) 0.1 (0.0-0.2) X10*3/uL Abs Immat Gran (auto) 0.02 (0.00-0.03) X10*3/uL Absolute Neuts (auto) 4.0 (2.0-8.3) x10*3/uL Absolute Nucleated RBC 0.000 (0.0-0.012) X10*3/uL Nucleated RBC % (auto) 0.0 (0.0-0.2) /100WBC Smear Tech's Comments VERIFIED PT 12.7 (11.1-13.3) SEC INR 1.0 (0.9-1.1) APTT 31.5 (26.0-36.8) SEC Sodium 147 H (135-145) mmol/L Potassium 5.1 (3.3-5.1) mmol/L Chloride 113 H (96-108) mmol/L Carbon Dioxide 24 (22-29) mmol/L Anion Gap 15 (12-20) BUN 18 H (9-16) mg/dL Creatinine 1.01 (0.5-1.4) mg/dL Estim Creat Clear Calc 44.4 Estimated GFR 53 Random Glucose 111 (60-115) mg/dL Calcium 8.9 (8.4-10.2) mg/dL Total Bilirubin 0.3 (0.0-1.0) mg/dL AST 35 H (5-31) U/L ALT 13 (0-31) U/L Alkaline Phosphatase 54 (39-117) U/L B-Natriuretic Peptide 93 (<100) pg/mL Total Protein 6.4 L (6.5-8.0) g/dL Albumin 4.0 (3.5-5.0) g/dL Blood Type O Positive Antibody Screen NEGATIVE Crossmatch See Detail Independent Interpretation I performed an independent interpretation of an: Plain X-Ray (RLL opacity) Radiology Impression Discussion of test interpretation with radiology: I have reviewed the radiologist's reading. Radiologist Impression: XR/XR chest 1V IMPRESSION: There is a subtle patchy opacity at the right lung base. Infectious etiology cannot be excluded. The left lung is clear. Independent Historian Clinical information obtained from an independent historian. History obtained from or confirmed by: Friend External Record Review External record reviewed: Inpatient record and Outpatient record Tests considered The following testing was considered but not selected: See narrative above Prescription Management I considered prescription management with: Antibiotic Critical Care Time Critical Care Time Critical Care Time: Yes Total Critical Care Time: 45 Attestation: I personally attest to this critical care time spent taking care of the patient exclusive of all other billable procedures was approximately 45 minutes including initial evaluation of patient, ordering tests, x-ray interpretation, blood transfusions; PRBC x2, medical consultation, documentation, re-evaluation. Discharge Plan Discharge Clinical Impression: Anemia, Community acquired pneumonia Patient Disposition: Home, Self-Care Instructions: Community Acquired Pneumonia (ED), Anemia (ED) Prescriptions: New azithromycin 250 mg tablet 250 mg PO DAILY 4 Days Qty: 4 0RF Rx Instructions: start on day 2 of therapy cefpodoxime 200 mg tablet 200 mg PO BID Qty: 14 0RF Rx Instructions: must administer with a meal/food No Action oxycodone-acetaminophen [Percocet] 5-325 mg tablet 1 tab PO Q6H PRN (Reason: pain (scale score 4-6)) 7 Days Qty: 28 0RF Rx Instructions: Partial Fill upon patient request. alprazolam 0.5 mg tablet 1 tab PO TID PRN (Reason: Anxiety) hydrocodone-acetaminophen 7.5-325 mg tablet 1 tab PO Q6H PRN (Reason: Pain (Scale Score 7-10)) albuterol sulfate [ProAir HFA] 90 mcg/actuation HFA aerosol inhaler 1 - 2 puff inhalation Q4-6H PRN (Reason: Wheezing) cholecalciferol (vitamin D3) [Vitamin D3] 25 mcg (1,000 unit) Capsule 1,000 unit PO DAILY bupropion HCl 150 mg tablet sustained-release 12 hr 1 tab PO DAILY ondansetron HCl 4 mg tablet 1 tab PO Q8H PRN (Reason: Nausea And Vomiting) Hair, Skin and Nails (biotin) 10,000 mcg Tablet,Chewable 10,000 mcg PO DAILY albuterol sulfate 2.5 mg /3 mL (0.083 %) solution for nebulization 2.5 mg inhalation Q6H PRN (Reason: Wheezing) fluticasone propionate 50 mcg/actuation spray,suspension 1 spray intranasal DAILY PRN (Reason: Congestion) vitamin A 2,400 mcg Capsule 2,400 mcg PO DAILY cyanocobalamin (vitamin B-12) 1,000 mcg Tablet 1,000 mcg PO DAILY metoprolol succinate [Toprol XL] 25 mg tablet extended release 24 hr 25 mg PO DAILY Referrals: Name,MD Joseph [Primary Care Provider] - Interventions: ED Discharge Assessment Last Done: 01/30/24 22:50 Discharge Date/Time: 01/30/24 22:51 Print Language: Spanish
[2024-01-30 16:20] LABS: Alanine Aminotransferase 13 U/L (0-31); Alkaline Phosphatase 54 U/L (39-117); Anion Gap 15 (12-20); Aspartate Amino Transferase 35 U/L (5-31); Bilirubin Total 0.3 mg/dL (0.0-1.0); Blood Urea Nitrogen 18 mg/dL (9-16); Calcium 8.9 mg/dL (8.4-10.2); Carbon Dioxide 24 mmol/L (22-29); Chloride 113 mmol/L (96-108); Creatinine Clr Calc Pharmacy 44.4; Estimated Glomerular Filt Rate 53; Glucose Random 111 mg/dL (60-115); Potassium 5.1 mmol/L (3.3-5.1); Sodium 147 mmol/L (135-145); Total Protein 6.4 g/dL (6.5-8.0)
--- NOTE | 2024-01-30 16:34 | PC.NURSE ---
Assumed care at 1530. Pt sent from 's office for furtheR evaluation of low H+H. Pt reports hx of same.
[2024-01-30 16:48] LABS: Basophils Absolute Auto 0.1 X10*3/uL (0.0-0.2); Basophils Percent Auto 1.1 % (0-2); Eosinophils Absolute Auto 0.1 X10*3/uL (0.0-0.4); Hematocrit 21.8 % (37.0-47.0); Imm Gran Abs Auto 0.02 X10*3/uL (0.00-0.03); Imm Gran Pct Auto 0.4 % (0.0-0.4); Lymphocytes Absolute Auto 0.9 X10*3/uL (1.2-4.9); Lymphocytes Percent Auto 15.3 % (20-40); MANUAL DIFF FLAG SCAN; Mean Corpuscular HGB Conc 27.5 g/dl (31.0-35.0); Mean Corpuscular Volume 79.9 fL (80.0-98.0); Monocytes Absolute Auto 0.5 X10*3/uL (0.1-1.2); Monocytes Percent Auto 9.6 % (2-11); Neutrophils Percent Auto 71.6 % (45-73); PLT CLUMP 1; Red Blood Count 2.73 X10*6/uL (4.20-5.50); Red Cell Distribution Width 17.9 % (11.0-16.0); SCAN SMEAR FLAG 1
--- NOTE | 2024-01-30 16:51 | PC.NURSE ---
Blood consent sgned by SHAYLEE Gonzáles. This RN present, pt's daughter at her bedside.
[2024-01-30 17:09] LABS: Platelet Count 66 X10*3/uL (160-400); White Blood Count 5.6 X10*3/uL (4.8-10.8)
[2024-01-30 17:10] LABS: SLIDE REVIEW VERIFIED
[2024-01-30 17:15] LABS: Prothrombin Time 12.7 SEC (11.1-13.3)
[2024-01-30 17:17] LABS: Partial Thromboplastin Time 31.5 SEC (26.0-36.8)
[2024-01-30 17:23] LABS: B Type Natriuretic Peptide 93 pg/mL (<100)
--- NOTE | 2024-01-30 17:47 | PC.NURSE ---
Blood verification done by two RNs. Blood transfusion started, blood infusing into 20g IV LAC. 22g IV inserted R hand. vss, denies pain.
[2024-01-30] MEDS: 0.9 % Sodium Chloride 1,000 ML 999 ML IV (17:57)
--- NOTE | 2024-01-30 18:46 | PC.NURSE ---
pt assisted to bedside commode. R hand 22g iv came out during transfer. fluids paused.
[2024-01-30] MEDS: HYDROcodone Bit/Acetam 7.5/325 TABLET 1 TAB PO (19:21)
[2024-01-30] MEDS: Azithromycin 500 MG TABLET PO (22:37)
== END 2024-01-30 22:51 | disposition home or self-care (01) ==
PROVIDERS: Nurse Practitioner Family; Physician Assistant; Emergency Provider Emergency Medicine; PCP Internal Medicine Geriatric Medicine
DX: D64.9 Anemia, unspecified (principal); J16.8 Pneumonia due to other specified infectious organisms; R06.02 Shortness of breath; G47.00 Insomnia, unspecified; R53.83 Other fatigue; R42 Dizziness and giddiness; R53.1 Weakness; J44.9 Chronic obstructive pulmonary disease, unspecified; J45.901 Unspecified asthma with (acute) exacerbation; Z79.899 Other long term (current) drug therapy; Z87.891 Personal history of nicotine dependence
CPT/HCPCS: 36415; 36430; 71045; 80053; 83880; 85025; 85610; 85730; 86850; 86900; 86901; 86923; 96360; 96361; 99284; 99285; P9016

== ENCOUNTER 2024-05-09 13:59 | Emergency (ER) | payer OTHER, SELFPAY ==
[2024-05-09] VITALS (7 sets, daily range): BP systolic 116–133; BP diastolic 53–66; PULSE 96–106; RESP 16–18; TEMP 36.8–37.3; O2SAT 95; BMI 31.0
--- NOTE | ~2024-05-09 | XR_ITS ---
EXAMINATION: XR CHEST CLINICAL INFORMATION: Shortness of breath on exertion. COMPARISON: Chest x-ray January 30, 2024 TECHNIQUE: PA and lateral views of the chest were obtained. FINDINGS: Heart size is enlarged. There are vascular calcifications of the aorta. No acute abnormality. No pulmonary vascular congestion. Lungs are normally aerated. No pleural effusion and no pneumothorax. XR/XR chest 2V IMPRESSION: Cardiomegaly. No acute abnormality of chest. Electronically signed by: Darrion Field MD 05/09/2024 04:06 PM EDT
--- NOTE | 2024-05-09 14:32 | ED.GENADULT ---
HPI - General Adult General Chief complaint: Weakness Stated complaint: blood transfusion Time Seen by Provider: 05/09/24 14:37 History of Present Illness ED Provider: Dr. Owens HPI narrative: 78 y/o F patient; PMH chronic ITP, ischemic cardiomyopathy, emphysema, hx anemia requiring blood transfusion; presents from home on PCP recommendation for lightheadedness, generalized weakness, and dyspnea on exertion for the last two days. The patient denies any known bleeding source including: hemoptysis, hematochezia, or melena. She denies regular alcohol use. She denies regular NSAID use. Patient was last seen in this emergency department on 01/30/2024 for similar symptoms attributed to anemia that required blood transfusion at that time. Patient was recommended for admission then but requested strongly for discharge to home. On review of her chart she underwent endoscopy, capsule endoscopy, colonoscopy in 2021 which showed patchy gastritis, bulbar duodenitis, minimal esophagitis, and chronic antral erosions but no evidence of acute bleeding. Related Data Home Medications ?Medication ?Instructions ?Recorded ?Confirmed albuterol sulfate 90 mcg/actuation 1 - 2 puff inhalation Q4-6H PRN 12/07/20 09/13/23 aerosol inhaler (ProAir HFA) Wheezing alprazolam 0.5 mg tablet 1 tab PO TID PRN Anxiety 12/07/20 09/13/23 hydrocodone 7.5 mg-acetaminophen 1 tab PO Q6H PRN Pain (Scale Score 12/07/20 09/13/23 325 mg tablet 7-10) cholecalciferol (vitamin D3) 25 1,000 unit PO DAILY 02/07/21 09/13/23 mcg (1,000 unit) capsule (Vitamin D3) albuterol sulfate 2.5 mg/3 mL 2.5 mg inhalation Q6H PRN Wheezing 01/27/22 09/13/23 (0.083 %) solution for nebulization cyanocobalamin (vitamin B-12) 1,000 mcg PO DAILY 01/27/22 09/13/23 1,000 mcg tablet fluticasone propionate 50 1 spray intranasal DAILY PRN 01/27/22 09/13/23 mcg/actuation nasal Congestion spray,suspension vitamin A 2,400 mcg capsule 2,400 mcg PO DAILY 01/27/22 09/13/23 metoprolol succinate 25 mg 25 mg PO DAILY 05/17/22 09/13/23 tablet,extended release 24 hr (Toprol XL) biotin 10,000 mcg chewable tablet 10,000 mcg PO DAILY 12/07/22 09/13/23 (Hair, Skin and Nails (biotin)) bupropion HCl 150 mg tablet,12 hr 1 tab PO DAILY 12/07/22 09/13/23 sustained-release ondansetron HCl 4 mg tablet 1 tab PO Q8H PRN Nausea And 12/07/22 09/13/23 Vomiting Previous Rx's ?Medication ?Instructions ?Recorded oxycodone-acetaminophen 5 mg-325 1 tab PO Q6H PRN pain (scale score 12/19/22 mg tablet (Percocet) 4-6) 7 days #28 tabs azithromycin 250 mg tablet 250 mg PO DAILY 4 days #4 tabs 01/30/24 cefpodoxime 200 mg tablet 200 mg PO BID #14 tabs 01/30/24 Allergies Allergy/AdvReac Type Severity Reaction Status Date / Time amoxicillin Allergy Unknown Hives Verified 05/09/24 14:33 Penicillins [PENICILLINS] Allergy Unknown Hives Verified 05/09/24 14:33 Sulfa (Sulfonamide Allergy Unknown Hives Verified 05/09/24 14:33 Antibiotics) [SULFA (SULFONAMIDE ANTIBIOTICS)] Review of Systems Review of Systems: Yes all other systems are reviewed and are negative Neurologic: Denies Sensory deficit (Neuro) [facility] Past Medical History Attestation statement: The following information was validated with the patient. Source: old records reviewed Medical History Ascending aorta dilatation Atherosclerotic cardiovascular disease Non-rheumatic mitral regurgitation Non-rheumatic aortic regurgitation Non-rheumatic aortic stenosis Cardiomyopathy COPD exacerbation Heart failure with reduced ejection fraction Acute on chronic systolic (congestive) heart failure COPD (chronic obstructive pulmonary disease) Thrombocytopenia Osteoarthritis GERD (gastroesophageal reflux disease) Anxiety Asthma Surgical History Hx of colonoscopy Hx of endoscopy Hx of oophorectomy Hx of hysterectomy Hx of total knee replacement Family History Family History Sister Lung cancer Lupus Sister Lung cancer Maternal Aunt Lupus Social History Social History Household Members: None Household Members Other:: lives alone Housing: Condominium Do you presently have visiting nurse or other home services: No Unable to assess alcohol history related to: Unknown Alcohol intake: current Alcohol intake frequency: a few times a month Patient Tobacco Use Status: Former Tobacco user Second Hand Smoke Exposure: No Substance Use Type: Unknown Advance Directives: Yes Advance Directives on File: Yes Advance Directives Date on File: 03/20/23 Do you have a plan to hurt others: No Plan service: No ( career [employer]) Current occupational status: employed Physical Exam ED Vital Signs: Vital Signs - 24 hr 05/09/24 14:30 05/09/24 17:14 05/09/24 17:35 Temperature 98.3 F 98.2 F 98.5 F Pulse Rate 106 H 104 H 101 H Respiratory Rate 18 18 18 Blood Pressure 133/64 119/58 L 129/53 L Pulse Oximetry 95 Oxygen Delivery Method Room Air BMI result Body Mass Index 31.0 Patient is afebrile, mildly tachycardia, normotensive Const General: cooperative and no acute distress Orientation/consciousness: patient oriented x3 HENMT Head: Yes normal to inspection and Yes atraumatic Eyes General: appearance normal, both eyes and all related structures Pupils: Equal, round and reactive pupils present EOM: EOMs intact bilaterally Neck Neck: Yes normal visual inspection, Yes full ROM, Yes supple and No tender Chest Chest palpation & inspection: normal inspection of the chest and normal palpation of entire chest wall Resp Effort & Inspection: normal respiratory effort, able to speak in complete sentences, no cough and no respiratory distress Auscultation: clear to auscultation bilaterally Cardio Rate: tachycardic Rhythm: regular rhythm Peripheral pulses: Peripheral pulses 2+ throughout GI Inspection: Yes normal to inspection, No Abdominal wall edema and No distended Palpation (GI): Soft to palpation, not firm, nontender, no guarding and not rigid Auscultation: normal bowel sounds Back/Spine/Pelvis Back: No back tenderness Neuro General: patient oriented x3 and gait normal Cranial nerves: Yes Equal, round and reactive pupils present Motor exam (neuro): 5/5 motor strength present throughout Sensory Exam: No Sensory deficit (Neuro) Course Course Course Narrative: This is a Rapid Medical Examination (RME) performed by Jose Luis Bonner PA-C in triage. Full HPI, ROS, assessment and treatment plan per primary provider in the Main ED. 78 yo female hx asthma, anxiety, gerd, COPD, HFrEF here for eval of lightheadedness, weakness, shortness of breath on exertion x2d. Admits blood pressure 2 days ago was 100/50. Was unable to check her blood pressure this morning due to her monitor dying. Reports history of 17 blood transfusion due to severe anemia/thrombocytopenia. Last transfusion was on 02/08. + pale, appears weak using walker to ambulate. Plan: labs, ekg, trop, cxr, viral swabs Reevaluation(s) Reevaluation #1: Patient is afebrile, mildly tachycardic. Reviewed labs. Hgb 6.1. Troponin flat at 5. Remainder of labs unremarkable other than chronic thrombocytopenia. CXR unremarkable. Long discussion had with patient about this being her 17th transfusion in 1 year. Recommended patient consider routine blood testing and appointments with the transfusion center. Will plan to transfuse 2 units pRBC. Patient again adamant about discharge to home. Plan: Discharge to home with PCP follow up Return precautions given Medications Administered Discontinued Medications Generic Name Dose Route Start Last Admin Trade Name Freq PRN Reason Stop Dose Admin Sodium Chloride 100 mls @ 100 mls/hr 05/09/24 15:39 05/09/24 17:29 Ns IV 05/09/24 16:38 100 mls/hr ONCE ONE Administration Medical Decision Making Lab Data 05/09/24 15:12 05/09/24 15:12 Labs: Lab Results 05/09/24 Range/Units 15:12 WBC 6.3 (4.8-10.8) X10*3/uL RBC 2.78 L (4.20-5.50) X10*6/uL Hgb 6.1 L* (12.0-16.0) g/dl Hct 21.8 L (37.0-47.0) % MCV 78.4 L (80.0-98.0) fL MCH 21.9 L (27.0-33.0) pg MCHC 28.0 L (31.0-35.0) g/dl RDW 18.2 H (11.0-16.0) % Plt Count 63 L (160-400) X10*3/uL MPV Not Reportable Immature Gran % (Auto) 0.5 H (0.0-0.4) % Neut % (Auto) 73.3 H (45-73) % Lymph % (Auto) 15.6 L (20-40) % [place] % (Auto) 7.9 (2-11) % Eos % (Auto) 1.6 (0-4) % Baso % (Auto) 1.1 (0-2) % Lymph # (Auto) 1.0 L (1.2-4.9) X10*3/uL [place] # (Auto) 0.5 (0.1-1.2) X10*3/uL Eos # (Auto) 0.1 (0.0-0.4) X10*3/uL Baso # (Auto) 0.1 (0.0-0.2) X10*3/uL Abs Immat Gran (auto) 0.03 (0.00-0.03) X10*3/uL Absolute Neuts (auto) 4.7 (2.0-8.3) x10*3/uL Absolute Nucleated RBC 0.000 (0.0-0.012) X10*3/uL Nucleated RBC % (auto) 0.0 (0.0-0.2) /100WBC Smear Tech's Comments VERIFIED Sodium 145 (135-145) mmol/L Potassium 4.2 (3.3-5.1) mmol/L Chloride 112 H (96-108) mmol/L Carbon Dioxide 26 (22-29) mmol/L Anion Gap 11 L (12-20) BUN 15 (9-16) mg/dL Creatinine 0.80 (0.5-1.4) mg/dL Estim Creat Clear Calc 56.9 Estimated GFR > 60 Random Glucose 99 (60-115) mg/dL Calcium 8.9 (8.4-10.2) mg/dL Magnesium 1.9 (1.6-2.6) mg/dL Total Bilirubin 0.3 (0.0-1.0) mg/dL AST 19 (5-31) U/L ALT 11 (0-31) U/L Alkaline Phosphatase 49 (39-117) U/L Troponin I High Sens 5.2 (<3.5-17.0) ng/L B-Natriuretic Peptide 126 H (<100) pg/mL Total Protein 6.0 L (6.5-8.0) g/dL Albumin 4.0 (3.5-5.0) g/dL Influenza Type A (PCR) NEGATIVE (Negative) Influenza Type B (PCR) NEGATIVE (Negative) RSV RNA Qual (PCR) NEGATIVE (Negative) SARS-CoV-2 RNA (RT-PCR) NEGATIVE (Negative) Blood Type O Positive Antibody Screen NEGATIVE Crossmatch See Detail Independent Interpretation I performed an independent interpretation of an: EKG Interpretation: NSR 94BPM with normal intervals Radiology Impression Discussion of test interpretation with radiology: I have reviewed the radiologist's reading. Radiologist Impression: EXAMINATION: XR CHEST CLINICAL INFORMATION: Shortness of breath on exertion. COMPARISON: Chest x-ray January 30, 2024 TECHNIQUE: PA and lateral views of the chest were obtained. FINDINGS: Heart size is enlarged. There are vascular calcifications of the aorta. No acute abnormality. No pulmonary vascular congestion. Lungs are normally aerated. No pleural effusion and no pneumothorax. XR/XR chest 2V IMPRESSION: Cardiomegaly. No acute abnormality of chest. Electronically signed by: Darrion Field MD 05/09/2024 04:06 PM EDT RP Discharge Plan Discharge Clinical Impression: Anemia Patient Disposition: Home, Self-Care Instructions: Anemia (ED) Additional Instructions: As we discussed, you were seen today for anemia with a hemoglobin 6.1. You received 2 units of pRBC. We discussed how it can be dangerous to wait until your blood levels are this low. Recommend you discuss with your primary doctor getting appointments with the transfusion center instead of having to come to the emergency department every time your blood level is low. Please follow up with your PCP within 1 - 2 days. Return to the emergency department for: Difficulty breathing Chest pain Lightheadedness Passing out Prescriptions: No Action oxycodone-acetaminophen [Percocet] 5-325 mg tablet 1 tab PO Q6H PRN (Reason: pain (scale score 4-6)) 7 Days Qty: 28 0RF Rx Instructions: Partial Fill upon patient request. alprazolam 0.5 mg tablet 1 tab PO TID PRN (Reason: Anxiety) hydrocodone-acetaminophen 7.5-325 mg tablet 1 tab PO Q6H PRN (Reason: Pain (Scale Score 7-10)) albuterol sulfate [ProAir HFA] 90 mcg/actuation HFA aerosol inhaler 1 - 2 puff inhalation Q4-6H PRN (Reason: Wheezing) cholecalciferol (vitamin D3) [Vitamin D3] 25 mcg (1,000 unit) Capsule 1,000 unit PO DAILY bupropion HCl 150 mg tablet sustained-release 12 hr 1 tab PO DAILY ondansetron HCl 4 mg tablet 1 tab PO Q8H PRN (Reason: Nausea And Vomiting) Hair, Skin and Nails (biotin) 10,000 mcg Tablet,Chewable 10,000 mcg PO DAILY albuterol sulfate 2.5 mg /3 mL (0.083 %) solution for nebulization 2.5 mg inhalation Q6H PRN (Reason: Wheezing) fluticasone propionate 50 mcg/actuation spray,suspension 1 spray intranasal DAILY PRN (Reason: Congestion) vitamin A 2,400 mcg Capsule 2,400 mcg PO DAILY cyanocobalamin (vitamin B-12) 1,000 mcg Tablet 1,000 mcg PO DAILY azithromycin 250 mg tablet 250 mg PO DAILY 4 Days Qty: 4 0RF Rx Instructions: start on day 2 of therapy cefpodoxime 200 mg tablet 200 mg PO BID Qty: 14 0RF Rx Instructions: must administer with a meal/food metoprolol succinate [Toprol XL] 25 mg tablet extended release 24 hr 25 mg PO DAILY Print Language: Nepali
--- NOTE | 2024-05-09 14:35 | ECG_ITS ---
Test Reason : SOB ON EXERTION Blood Pressure : / mmHG Vent. Rate : 094 BPM Atrial Rate : 094 BPM P-R Int : 158 ms QRS Dur : 086 ms QT Int : 364 ms P-R-T Axes : 056 -17 053 degrees QTc Int : 455 ms Normal sinus rhythm Inferior infarct (cited on or before 27-JAN-2022) Abnormal ECG When compared with ECG of 20-MAR-2023 10:43, No significant change was found Referred By: Guadalupe Bonner Electronically Signed By:MAG DIALLO
[2024-05-09 15:30] LABS: Basophils Absolute Auto 0.1 X10*3/uL (0.0-0.2); Basophils Percent Auto 1.1 % (0-2); Eosinophils Absolute Auto 0.1 X10*3/uL (0.0-0.4); Eosinophils Percent Auto 1.6 % (0-4); Hematocrit 21.8 % (37.0-47.0); Imm Gran Abs Auto 0.03 X10*3/uL (0.00-0.03); Imm Gran Pct Auto 0.5 % (0.0-0.4); Lymphocytes Percent Auto 15.6 % (20-40); MANUAL DIFF FLAG SCAN; Mean Corpuscular Hemoglobin 21.9 pg (27.0-33.0); Mean Corpuscular Volume 78.4 fL (80.0-98.0); Monocytes Absolute Auto 0.5 X10*3/uL (0.1-1.2); Monocytes Percent Auto 7.9 % (2-11); Neutrophils Absolute Auto 4.7 x10*3/uL (2.0-8.3); Neutrophils Percent Auto 73.3 % (45-73); PLT CLUMP 1; Red Blood Count 2.78 X10*6/uL (4.20-5.50); Red Cell Distribution Width 18.2 % (11.0-16.0); SCAN SMEAR FLAG 1
[2024-05-09 15:34] LABS: Alanine Aminotransferase 11 U/L (0-31); Alkaline Phosphatase 49 U/L (39-117); Anion Gap 11 (12-20); Aspartate Amino Transferase 19 U/L (5-31); Bilirubin Total 0.3 mg/dL (0.0-1.0); Blood Urea Nitrogen 15 mg/dL (9-16); Calcium 8.9 mg/dL (8.4-10.2); Carbon Dioxide 26 mmol/L (22-29); Chloride 112 mmol/L (96-108); Creatinine Clr Calc Pharmacy 56.9; Estimated Glomerular Filt Rate > 60; Glucose Random 99 mg/dL (60-115); Potassium 4.2 mmol/L (3.3-5.1); Sodium 145 mmol/L (135-145)
[2024-05-09 15:39] LABS: Hemoglobin 6.1 g/dl (12.0-16.0)
[2024-05-09 15:42] LABS: B Type Natriuretic Peptide 126 pg/mL (<100)
[2024-05-09 15:43] LABS: Troponin-I High Sensitivity 5.2 ng/L (<3.5-17.0)
[2024-05-09 15:54] LABS: White Blood Count 6.3 X10*3/uL (4.8-10.8)
[2024-05-09 15:56] LABS: Platelet Count 63 X10*3/uL (160-400)
[2024-05-09 15:57] LABS: Magnesium 1.9 mg/dL (1.6-2.6); SLIDE REVIEW VERIFIED
[2024-05-09 17:12] LABS: Influenza A PCR NEGATIVE (Negative); Influenza B PCR NEGATIVE (Negative); Resp Syncy Virus RNA Qual PCR NEGATIVE (Negative); SARS COV2 PCR INHOUSE NEGATIVE (Negative)
--- NOTE | 2024-05-09 17:28 | PC.NURSE ---
remains alert and oriented with even and unlabored respirations. 2 IVs in left arm, blood infusing at this time. patient remains asymptomatic, denies any dizziness/shortness of breath. plan for 2 units of blood and discharge
--- NOTE | 2024-05-09 20:17 | PC.NURSE ---
pt ambulatory to bathroom with steady gait using walker, upon return to room pt reporting sob which states is consistent with usual sx when needs blood transfusion. lung sounds cta. sats 98% on RA. pt requests breathing tx however made aware and no indication at this time. sx resolved with rest. pt also reporting chronic knee pain from surgery and states usually takes oxycodone for this, requesting at this time. MD made aware. pt is axox4. call phillips within reach.
--- NOTE | 2024-05-09 20:30 | PC.NURSE ---
blood transfusion complete and no reactions noted. resp even and unlabored vss lung sounds cta.
--- NOTE | 2024-05-09 21:27 | PC.NURSE ---
2nd blood transfusion started, per MD crespo to infuse at 120ml/hr.
--- NOTE | 2024-05-09 23:09 | PC.NURSE ---
pt felt sob after ambulating from bathroom to room. pt reports she has prn o2 at home and requesting 2L NC at this time. aware.
[2024-05-10] MEDS: Ondansetron ODT 4 MG TAB.RAPDIS TRANSLINGU (00:04)
[2024-05-10 01:22] VITALS: BP 124/66; PULSE 98; RESP 18; TEMP 37.3; O2SAT 94
== END 2024-05-10 01:23 | disposition home or self-care (01) ==
PROVIDERS: Physician Assistant Medical; Emergency Provider Emergency Medicine; PCP Internal Medicine Geriatric Medicine
DX: D64.9 Anemia, unspecified (principal); Z03.818 Encounter for observation for suspected exposure to other biological agents ruled out; J45.909 Unspecified asthma, uncomplicated; R06.02 Shortness of breath
CPT/HCPCS: 0241U; 36415; 36430; 71046; 80053; 83735; 83880; 84484; 85025; 86850; 86900; 86901; 86923; 93005; 96360; 96361; 99285; P9016

== ENCOUNTER 2024-06-12 14:49 | Inpatient (IN) | payer OTHER, SELFPAY ==
[2024-06-12] VITALS (10 sets, daily range): BP systolic 106–150; BP diastolic 43–70; PULSE 97–122; RESP 14–24; TEMP 36.9–37.7; O2SAT 94–100; BMI 30.6
--- NOTE | ~2024-06-12 | XR_ITS ---
EXAMINATION: XR HIP, RIGHT CLINICAL INFORMATION: Pain in the right hip. Status post fall COMPARISON: November 21, 2022 TECHNIQUE: Two views of the right hip. FINDINGS: There is no evidence of fracture. There is significant narrowing of the right hip joint consistent with osteoarthritis. Soft tissues unremarkable. Vascular calcifications present XR/XR hip RT min 2V IMPRESSION: Advanced changes RIGHT hip osteoarthritis Electronically signed by: Elvia Stein MD 06/13/2024 03:30 PM EDT
--- NOTE | ~2024-06-12 | XR_ITS ---
EXAMINATION: XR CHEST CLINICAL INFORMATION: Shortness of breath. COMPARISON: Chest x-ray May 09, 2024 TECHNIQUE: Frontal portable view of the chest was obtained. 1509 hours FINDINGS: Lung volumes are low. Linear atelectasis at lung bases. No focal consolidation. There is no pleural effusion and no pulmonary vascular congestion. Cardiac and mediastinal contours are normal. Heart size normal. Vascular calcifications of aorta. Degenerative spurring of the right and left humeral head and glenohumeral joints. No acute osseous abnormality. XR/XR chest 1V IMPRESSION: Low lung volumes. Linear atelectasis at lung bases. No acute abnormality. Electronically signed by: Darrion Field MD 06/12/2024 03:53 PM EDT RP
--- NOTE | 2024-06-12 14:59 | ED_ITS ---
HPI - SOB/Dyspnea General Chief Complaint: Recheck/Abnormal Lab/Rx Stated Complaint: WEAK,SOB,USED UP INH PER EMS Time Seen by Provider: 06/12/24 14:58 Source: patient and RN notes reviewed Mode of arrival: ambulatory Limitations: no limitations History of Present Illness ED Provider: Shruti Perry PA-C HPI Narrative: This is a 78-year-old female, with a past medical history of chronic ITP, ischemic cardiomyopathy, anxiety, GERD, chronic HFrEF, COPD/chronic bronchitis/asthma, who presents emergency department for weakness and shortness for breath. Patient states that 3 days ago she felt lightheaded. She states that she has a history of anemia and has required blood transfusions in the past. She states that she feels as though she needs a blood transfusion today. She states that this morning her shortness for breath worsened and used many puffs over her albuterol inhaler which provided her with no relief. Patient was last seen here in the emergency room on May 09, 2024 for similar symptoms attributed to anemia which required blood transfusion, and again was seen in the emergency room on January 30, 2024 which also required transfusion. She has a history of chronic anemia which she has received multiple transfusion for over the past year, per previous note, patient has had over 17 blood transfusions in the past year. He has always been adamant about being discharged home after receiving transfusion. She states that she does follow-up with her plasma processing technician however states that she waits until she is too symptomatic and requires to be transfused in the emergency room. She denies any known source of bleeding including hemoptysis, hematochezia, or melena. She denies alcohol use, denies regular NSAID use. MD elicited complaint: shortness of breath Related Data Home Medications ?Medication ?Instructions ?Recorded ?Confirmed albuterol sulfate 90 mcg/actuation 1 - 2 puff inhalation Q4-6H PRN 12/07/20 09/13/23 aerosol inhaler (ProAir HFA) Wheezing alprazolam 0.5 mg tablet 1 tab PO TID PRN Anxiety 12/07/20 09/13/23 hydrocodone 7.5 mg-acetaminophen 1 tab PO Q6H PRN Pain (Scale Score 12/07/20 09/13/23 325 mg tablet 7-10) cholecalciferol (vitamin D3) 25 1,000 unit PO DAILY 02/07/21 09/13/23 mcg (1,000 unit) capsule (Vitamin D3) albuterol sulfate 2.5 mg/3 mL 2.5 mg inhalation Q6H PRN Wheezing 01/27/22 09/13/23 (0.083 %) solution for nebulization cyanocobalamin (vitamin B-12) 1,000 mcg PO DAILY 01/27/22 09/13/23 1,000 mcg tablet fluticasone propionate 50 1 spray intranasal DAILY PRN 01/27/22 09/13/23 mcg/actuation nasal Congestion spray,suspension vitamin A 2,400 mcg capsule 2,400 mcg PO DAILY 01/27/22 09/13/23 metoprolol succinate 25 mg 25 mg PO DAILY 05/17/22 09/13/23 tablet,extended release 24 hr (Toprol XL) biotin 10,000 mcg chewable tablet 10,000 mcg PO DAILY 12/07/22 09/13/23 (Hair, Skin and Nails (biotin)) bupropion HCl 150 mg tablet,12 hr 1 tab PO DAILY 12/07/22 09/13/23 sustained-release ondansetron HCl 4 mg tablet 1 tab PO Q8H PRN Nausea And 12/07/22 09/13/23 Vomiting Previous Rx's ?Medication ?Instructions ?Recorded oxycodone-acetaminophen 5 mg-325 1 tab PO Q6H PRN pain (scale score 12/19/22 mg tablet (Percocet) 4-6) 7 days #28 tabs azithromycin 250 mg tablet 250 mg PO DAILY 4 days #4 tabs 01/30/24 cefpodoxime 200 mg tablet 200 mg PO BID #14 tabs 01/30/24 Allergies Allergy/AdvReac Type Severity Reaction Status Date / Time amoxicillin Allergy Unknown Hives Verified 06/12/24 15:07 Penicillins [PENICILLINS] Allergy Unknown Hives Verified 06/12/24 15:07 Sulfa (Sulfonamide Allergy Unknown Hives Verified 06/12/24 15:07 Antibiotics) [SULFA (SULFONAMIDE ANTIBIOTICS)] Review of Systems 2 Review of Systems: Yes all other systems are reviewed and are negative Constitutional: Constitutional: Reports as per [facility] Past Medical History Attestation statement: The following information was validated with the patient. Medical History Ascending aorta dilatation Atherosclerotic cardiovascular disease Non-rheumatic mitral regurgitation Non-rheumatic aortic regurgitation Non-rheumatic aortic stenosis Cardiomyopathy COPD exacerbation Heart failure with reduced ejection fraction Acute on chronic systolic (congestive) heart failure COPD (chronic obstructive pulmonary disease) Thrombocytopenia Osteoarthritis GERD (gastroesophageal reflux disease) Anxiety Asthma Surgical History Hx of colonoscopy Hx of endoscopy Hx of oophorectomy Hx of hysterectomy Hx of total knee replacement Family History Family History Sister Lung cancer Lupus Sister Lung cancer Maternal Aunt Lupus Social History Social History Household Members: None Household Members Other:: lives alone Housing: Condominium Do you presently have visiting nurse or other home services: No Unable to assess alcohol history related to: Unknown Alcohol intake: current Alcohol intake frequency: a few times a month Patient Tobacco Use Status: Former Tobacco user Second Hand Smoke Exposure: No Substance Use Type: Unknown Advance Directives: Yes Advance Directives on File: Yes Advance Directives Date on File: 03/20/23 service: No ( career [employer]) Current occupational status: employed Physical Exam 2 Vital Signs: Vital Signs: Last Vital Signs Temp 99.8 F 06/12/24 17:10 Pulse 112 H 06/12/24 17:10 Resp 17 06/12/24 17:10 BP 112/51 L 06/12/24 17:10 Pulse Ox 95 06/12/24 15:50 O2 Del Method Room Air 06/12/24 15:50 O2 Flow Rate 2 06/12/24 15:50 BMI result Body Mass Index 30.6 Const: Other: Pale appearing General: cooperative Orientation/consciousness: patient oriented x3 L imitations: no limitations HEENT: Head: Yes normal to inspection, Yes normocephalic and Yes atraumatic Ears: hearing grossly normal bilaterally General nose exam: Normal external nose present Face and sinus: Yes normal facial exam Mouth: Normal oral and palatal mucosa present, oropharynx normal and moist mucous membranes Throat: Yes posterior oropharynx normal Eyes: General: appearance normal, both eyes and all related structures E yelids: Yes eyelids normal Conjunctivae: conjunctivae normal Sclerae: s clerae normal Pupils: Equal, round and reactive pupils present EOM: EOMs intact bilaterally Neck: Neck: Yes normal visual inspection, Yes full ROM and Yes no lymphadenopathy Lymphatic: no lymphadenopathy noted Chest: Chest palpation & inspection: normal inspection of the chest Resp: Effort & Inspection: normal respiratory effort and able to speak in complete sentences Auscultation: clear to auscultation bilaterally, no crackles, no rales, no rhonchi and no wheezes Cardio: Rate: regular rate Rhythm: regular rhythm Heart sounds: S1 normal heart sound present and S2 normal heart sound present GI: Inspection: Yes normal to inspection Skin: General skin exam: no rashes or lesions noted Trauma: no lacerations or abrasions Wounds: no wounds Neuro: General: patient oriented x3 and moves all extremities Cranial nerves: Yes Equal, round and reactive pupils present Extrem: General: Yes normal to inspection Right upper extremity: normal to inspection Left upper extremity: normal to inspection Right lower extremity: normal to inspection Left lower extremity: normal to inspection Course Reevaluation(s) Reevaluation #1: Critical care H&H of 3.9/13.4. Pt consented to receiving blood. Blood consent paperwork signed. Given that this is the lowest her H&H has been, I discussed at length that it would be in her best interest to stay for transfusions and further workup. At this time she is willing to be admitted. Time: 16:23 Reevaluation #2: Discussed case with hospitalist, Dr. Rand, who accepts transfer of care. Time: 17:33 Medications Administered Discontinued Medications Generic Name Dose Route Start Last Admin Trade Name Freq PRN Reason Stop Dose Admin Sodium Chloride 100 mls @ 100 mls/hr 06/12/24 16:07 06/12/24 17:05 Ns IV 06/12/24 17:06 Infused ONCE ONE Infusion Medical Decision Making Medical Decision Making MDM Narrative: This is a 78-year-old female, with a past medical history of COPD, chronic ITP, ischemic cardiomyopathy, anxiety, GERD, chronic HFrEF, COPD/chronic bronchitis/asthma, who presents emergency department for weakness and shortness for breath who presents x3 days. On arrival, blood pressure 107/52, pulse 122, oxygen saturation 94% on room air. Patient pale appearing. Patient admits to using ?a lot of puffs? approximating more than 10 puffs of albuterol prior to her arrival just likely contributing to her tachycardia. She has a history of thrombocytopenia requiring multiple blood transfusions, of note, patient has had 17 blood transfusions this past year due to low H&H. She was previously seen on 05/09/2024 where she received 2 units of packed red blood cells. She was recommended to discuss with primary care doctor/plasma processing technician to have an appointment with the transfusion center, into further evaluate anemia. She was adamant about being discharged home at that time and was not admitted. She returns here with shortness of breath and weakness. She declines occult testing, reports no history of hematochezia or melena, she states that she had an endoscopy and colonoscopy over the summer which were unremarkable. She declines imaging studies of the abdomen and pelvis. Less likely acute diverticulitis or acute intra-abdominal process. She has a history of chronic anemia for which he has received multiple transfusions over the past year, reporting 18 transfusions, and states that her current symptoms are typical of her presentation of symptomatic anemia. She is agreeable for blood transfusion should she need it. Plan: Labs, EKG, chest x-ray, type and screen Differential Diagnosis Differential Diagnoses: The differential diagnosis associated with the presentation includes Iron deficiency anemia, ITP, GI bleed, Admission/Observation Consideration of admission/observation: Escalation of care including admission/observation considered Lab Data MDM Lab Attestation statement: I reviewed the patient's lab results. RBC 1.58, H&H 3.9/13.4, 06/12/24 15:40 06/12/24 15:40 Labs: Lab Results 06/12/24 06/12/24 Range/Units 15:40 15:45 WBC 8.3 (4.8-10.8) X10*3/uL RBC 1.58 L D (4.20-5.50) X10*6/uL Hgb 3.9 L* D (12.0-16.0) g/dl Hct 13.4 L* D (37.0-47.0) % MCV 84.8 (80.0-98.0) fL MCH 24.7 L (27.0-33.0) pg MCHC 29.1 L (31.0-35.0) g/dl RDW 21.4 H (11.0-16.0) % Plt Count 64 L (160-400) X10*3/uL MPV Not Reportable Immature Gran % (Auto) 0.4 (0.0-0.4) % Neut % (Auto) 85.2 H (45-73) % Lymph % (Auto) 6.6 L (20-40) % [place] % (Auto) 7.2 (2-11) % Eos % (Auto) 0.1 (0-4) % Baso % (Auto) 0.5 (0-2) % Lymph # (Auto) 0.6 L (1.2-4.9) X10*3/uL [place] # (Auto) 0.6 (0.1-1.2) X10*3/uL Eos # (Auto) 0.0 (0.0-0.4) X10*3/uL Baso # (Auto) 0.0 (0.0-0.2) X10*3/uL Abs Immat Gran (auto) 0.03 (0.00-0.03) X10*3/uL Absolute Neuts (auto) 7.1 (2.0-8.3) x10*3/uL Absolute Nucleated RBC 0.000 (0.0-0.012) X10*3/uL Nucleated RBC % (auto) 0.0 (0.0-0.2) /100WBC Smear Tech's Comments VERIFIED PT 12.9 H (10.9-12.4) SEC INR 1.1 (0.9-1.1) Sodium 146 H (135-145) mmol/L Potassium 3.9 (3.3-5.1) mmol/L Chloride 111 H (96-108) mmol/L Carbon Dioxide 26 (22-29) mmol/L Anion Gap 13 (12-20) BUN 31 H (9-16) mg/dL Creatinine 0.73 (0.5-1.4) mg/dL Estim Creat Clear Calc 62.0 Estimated GFR > 60 Random Glucose 119 H (60-115) mg/dL Calcium 8.2 L D (8.4-10.2) mg/dL Magnesium 1.9 (1.6-2.6) mg/dL Total Bilirubin 0.2 (0.0-1.0) mg/dL Direct Bilirubin < 0.2 (0.0-0.5) mg/dL AST 16 (5-31) U/L ALT 9 (0-31) U/L Alkaline Phosphatase 33 L (39-117) U/L Troponin I High Sens 5.1 (<3.5-17.0) ng/L Total Protein 5.0 L (6.5-8.0) g/dL Albumin 3.4 L (3.5-5.0) g/dL Influenza Type A (PCR) NEGATIVE (Negative) Influenza Type B (PCR) NEGATIVE (Negative) RSV RNA Qual (PCR) NEGATIVE (Negative) SARS-CoV-2 RNA (RT-PCR) NEGATIVE (Negative) Blood Type O Positive Antibody Screen NEGATIVE Crossmatch See Detail Radiology Impression Discussion of test interpretation with radiology: I have reviewed the radiologist's reading. External Record Review External record reviewed: Inpatient record, Office record, Outpatient record, Prior outpatient labs, Prior outpatient radiology, Primary care record and Outside ED record Critical Care Time Critical Care Time Critical Care Time: Yes Total Critical Care Time: 40 Attestation: I have personally provided critical care time exclusive of time spent on separately billable procedures. Time includes review of lab data, radiology results, discussion with consultants, and monitoring for potential decompensation. Intervention performed as documented. Discharge Plan Discharge Clinical Impression: Anemia Patient Disposition: Still a Patient Prescriptions: No Action oxycodone-acetaminophen [Percocet] 5-325 mg tablet 1 tab PO Q6H PRN (Reason: pain (scale score 4-6)) 7 Days Qty: 28 0RF Rx Instructions: Partial Fill upon patient request. alprazolam 0.5 mg tablet 1 tab PO TID PRN (Reason: Anxiety) hydrocodone-acetaminophen 7.5-325 mg tablet 1 tab PO Q6H PRN (Reason: Pain (Scale Score 7-10)) albuterol sulfate [ProAir HFA] 90 mcg/actuation HFA aerosol inhaler 1 - 2 puff inhalation Q4-6H PRN (Reason: Wheezing) cholecalciferol (vitamin D3) [Vitamin D3] 25 mcg (1,000 unit) Capsule 1,000 unit PO DAILY bupropion HCl 150 mg tablet sustained-release 12 hr 1 tab PO DAILY ondansetron HCl 4 mg tablet 1 tab PO Q8H PRN (Reason: Nausea And Vomiting) Hair, Skin and Nails (biotin) 10,000 mcg Tablet,Chewable 10,000 mcg PO DAILY albuterol sulfate 2.5 mg /3 mL (0.083 %) solution for nebulization 2.5 mg inhalation Q6H PRN (Reason: Wheezing) fluticasone propionate 50 mcg/actuation spray,suspension 1 spray intranasal DAILY PRN (Reason: Congestion) vitamin A 2,400 mcg Capsule 2,400 mcg PO DAILY cyanocobalamin (vitamin B-12) 1,000 mcg Tablet 1,000 mcg PO DAILY azithromycin 250 mg tablet 250 mg PO DAILY 4 Days Qty: 4 0RF Rx Instructions: start on day 2 of therapy cefpodoxime 200 mg tablet 200 mg PO BID Qty: 14 0RF Rx Instructions: must administer with a meal/food metoprolol succinate [Toprol XL] 25 mg tablet extended release 24 hr 25 mg PO DAILY Print Language: Lao
--- NOTE | 2024-06-12 15:01 | ECG_ITS ---
Test Reason : weakness Blood Pressure : / mmHG Vent. Rate : 119 BPM Atrial Rate : 119 BPM P-R Int : 138 ms QRS Dur : 084 ms QT Int : 346 ms P-R-T Axes : 060 -11 075 degrees QTc Int : 486 ms Sinus tachycardia Inferior infarct (cited on or before 27-JAN-2022) Abnormal ECG When compared with ECG of 09-MAY-2024 14:53, Nonspecific T wave abnormality has replaced inverted T waves in Anterior leads T wave inversion now evident in Lateral leads Referred By: Shruti Perry Electronically Signed By:MAG DIALLO
--- NOTE | 2024-06-12 15:52 | MHC.EDTECH ---
Patient was biba from home ,ekg taken and was read by Provider ,Patient was assisted unto bedside commode ,void and was assisted back to bed ,Patient was change into hospital attire ,and hooked up to hospital monitor ,blood drawn including type and screen and rsv/covid swab collected al;l sent to lab .Patient comfortable watching television call phillips within Pt reach .
[2024-06-12 15:55] LABS: Basophils Percent Auto 0.5 % (0-2); Eosinophils Percent Auto 0.1 % (0-4); INTERNATIONAL NORM RATIO 1.1 (0.9-1.1); Imm Gran Abs Auto 0.03 X10*3/uL (0.00-0.03); Imm Gran Pct Auto 0.4 % (0.0-0.4); Lymphocytes Absolute Auto 0.6 X10*3/uL (1.2-4.9); Lymphocytes Percent Auto 6.6 % (20-40); MANUAL DIFF FLAG SCAN; Mean Corpuscular HGB Conc 29.1 g/dl (31.0-35.0); Mean Corpuscular Hemoglobin 24.7 pg (27.0-33.0); Mean Corpuscular Volume 84.8 fL (80.0-98.0); Monocytes Absolute Auto 0.6 X10*3/uL (0.1-1.2); Monocytes Percent Auto 7.2 % (2-11); Neutrophils Absolute Auto 7.1 x10*3/uL (2.0-8.3); Neutrophils Percent Auto 85.2 % (45-73); PLT CLUMP 1; Prothrombin Time 12.9 SEC (10.9-12.4); Red Blood Count 1.58 X10*6/uL (4.20-5.50); Red Cell Distribution Width 21.4 % (11.0-16.0); SCAN SMEAR FLAG 1
[2024-06-12 15:57] LABS: Hematocrit 13.4 % (37.0-47.0); Hemoglobin 3.9 g/dl (12.0-16.0)
[2024-06-12 16:04] LABS: Alanine Aminotransferase 9 U/L (0-31); Albumin Level 3.4 g/dL (3.5-5.0); Alkaline Phosphatase 33 U/L (39-117); Anion Gap 13 (12-20); Aspartate Amino Transferase 16 U/L (5-31); Bilirubin Direct < 0.2 mg/dL (0.0-0.5); Bilirubin Total 0.2 mg/dL (0.0-1.0); Blood Urea Nitrogen 31 mg/dL (9-16); Calcium 8.2 mg/dL (8.4-10.2); Carbon Dioxide 26 mmol/L (22-29); Chloride 111 mmol/L (96-108); Estimated Glomerular Filt Rate > 60; Glucose Random 119 mg/dL (60-115); Magnesium 1.9 mg/dL (1.6-2.6); Potassium 3.9 mmol/L (3.3-5.1); Sodium 146 mmol/L (135-145)
[2024-06-12 16:11] LABS: Troponin-I High Sensitivity 5.1 ng/L (<3.5-17.0)
[2024-06-12 16:12] LABS: White Blood Count 8.3 X10*3/uL (4.8-10.8)
[2024-06-12 16:13] LABS: Platelet Count 64 X10*3/uL (160-400); SLIDE REVIEW VERIFIED
[2024-06-12 16:31] LABS: Influenza A PCR NEGATIVE (Negative); Influenza B PCR NEGATIVE (Negative); Resp Syncy Virus RNA Qual PCR NEGATIVE (Negative); SARS COV2 PCR INHOUSE NEGATIVE (Negative)
--- NOTE | 2024-06-12 16:55 | PC.NURSE ---
blood transfusion started, patient is alert and oriented x4, VSS, patient asked for tea. patient given tea. Blood running at 83ml/hr
--- NOTE | 2024-06-12 18:07 | P.HPHOSP_ITS ---
History of Present Illness Date of Service: 06/12/24 Chief Complaint: sob 79 year ofld female with with a PMH significant for?chronic ITP, ischemic cardiomyopathy, anxiety, GERD, chronic HFrEF, COPD/chronic bronchitis/asthm, chronic anemia with negative work up in the past and get frequent transfusion, in her words nearly 18 units the past year.. She presents today with increasing shortness of breath that she atributes to anemia. She denies melana or hematochezia--from experience she knew her symptoms were related to anemia. Her hemoglobin is 3.9, Plat 64, tachycardic, and declined rectal exam. She's been ttransfuse. Review of Systems 2 Review of Systems: Gen: no fever Resp: + sob, no cough CV: no chest, no WAL[place]ON, no leg edema GI: No n/v, no abd pain Neuro: No confusion Yes all other systems are reviewed and are negative [facility] Medical History Ascending aorta dilatation Atherosclerotic cardiovascular disease Non-rheumatic mitral regurgitation Non-rheumatic aortic regurgitation Non-rheumatic aortic stenosis Cardiomyopathy COPD exacerbation Heart failure with reduced ejection fraction Acute on chronic systolic (congestive) heart failure COPD (chronic obstructive pulmonary disease) Thrombocytopenia Osteoarthritis GERD (gastroesophageal reflux disease) Anxiety Asthma Family History Sister Lung cancer Lupus Sister Lung cancer Maternal Aunt Lupus Surgical History Hx of colonoscopy Hx of endoscopy Hx of oophorectomy Hx of hysterectomy Hx of total knee replacement Social History Household Members: None Household Members Other:: lives alone Housing: Condominium Do you presently have visiting nurse or other home services: No Unable to assess alcohol history related to: Unknown Alcohol intake: current Alcohol intake frequency: a few times a month Patient Tobacco Use Status: Former Tobacco user Second Hand Smoke Exposure: No Substance Use Type: Unknown Advance Directives: Yes Advance Directives on File: Yes Advance Directives Date on File: 03/20/23 service: No ( career [employer]) Current occupational status: employed Meds Allergies Allergy/AdvReac Type Severity Reaction Status Date / Time amoxicillin Allergy Unknown Hives Verified 06/12/24 15:07 Penicillins [PENICILLINS] Allergy Unknown Hives Verified 06/12/24 15:07 Sulfa (Sulfonamide Allergy Unknown Hives Verified 06/12/24 15:07 Antibiotics) [SULFA (SULFONAMIDE ANTIBIOTICS)] Home Medications ?Medication ?Instructions ?Recorded ?Confirmed ?Last Taken ?Type alprazolam 0.5 mg tablet 1 tab PO TID PRN Anxiety 12/07/20 06/12/24 10/12/22 History cholecalciferol (vitamin D3) 25 1,000 unit PO DAILY 02/07/21 06/12/24 10/12/22 History mcg (1,000 unit) capsule (Vitamin D3) albuterol sulfate 2.5 mg/3 mL 2.5 mg inhalation Q6H PRN Wheezing 01/27/22 06/12/24 10/12/22 History (0.083 %) solution for nebulization cyanocobalamin (vitamin B-12) 1,000 mcg PO DAILY 01/27/22 06/12/24 10/12/22 History 1,000 mcg tablet fluticasone propionate 50 1 spray intranasal DAILY PRN 01/27/22 06/12/24 10/12/22 History mcg/actuation nasal Congestion spray,suspension vitamin A 2,400 mcg capsule 2,400 mcg PO DAILY 01/27/22 06/12/24 10/12/22 History metoprolol succinate 25 mg 25 mg PO DAILY 05/17/22 06/12/24 10/12/22 History tablet,extended release 24 hr (Toprol XL) biotin 10,000 mcg chewable tablet 10,000 mcg PO DAILY 12/07/22 06/12/24 Unknown History (Hair, Skin and Nails (biotin)) ondansetron HCl 4 mg tablet 1 tab PO Q8H PRN Nausea And 12/07/22 06/12/24 Unknown History Vomiting albuterol sulfate 90 mcg/actuation 2 puff inhalation Q4H PRN Wheezing 06/12/24 06/12/24 Unknown History aerosol inhaler fluticasone propionate 110 1 puff inhalation BID 06/12/24 06/12/24 06/12/24 History mcg/actuation HFA aerosol inhaler hydrocodone 10 mg-acetaminophen 1 tab PO QID PRN Pain, Moderate 09/25/24 09/25/24 Unknown History 325 mg tablet Physical Exam 2 Vital Signs and Narrative: Vital Signs: Last Vital Signs Temp 99.8 F 06/12/24 17:10 Pulse 112 H 06/12/24 17:10 Resp 17 06/12/24 17:10 BP 112/51 L 06/12/24 17:10 Pulse Ox 95 06/12/24 15:50 O2 Del Method Room Air 06/12/24 15:50 O2 Flow Rate 2 06/12/24 15:50 BMI result Body Mass Index 30.6 Const: Other: Constitutional: Alert, in no distress, overweight. Mental Status: Oriented to person, place and time. Eyes: Pupils are equal, round and reactive to light. Ear, Nose and Throat: Oropharynx clear, mucous membranes moist. Ears and nose without eformities. Trachea midline. Respiratory: Clear to auscultation. No wheezing, rales or rhonchi. Cardiovascular: S1 S2 regular. No murmurs, rubs or gallops. 2+ leg edema Gastrointestinal: Abdomen soft, non-tender, non-distended. Normal bowel sounds.? Neurologic: Cranial nerves II-XII grossly intact. No focal neurological deficits. Moves all extremities spontaneously.? Skin: No rashes or lesions.? Musculoskeletal: No cyanosis or clubbing. Psychiatric: Normal mood and affect? Results Labs 06/13/24 04:44 06/13/24 04:44 Labs: Laboratory Results - last 24 hr 06/12/24 06/12/24 15:40 15:45 MCV 84.8 MCH 24.7 L MCHC 29.1 L RDW 21.4 H Plt Count 64 L MPV Not Reportable Immature Gran % (Auto) 0.4 Neut % (Auto) 85.2 H Lymph % (Auto) 6.6 L [place] % (Auto) 7.2 Eos % (Auto) 0.1 Baso % (Auto) 0.5 Lymph # (Auto) 0.6 L [place] # (Auto) 0.6 Eos # (Auto) 0.0 Baso # (Auto) 0.0 Abs Immat Gran (auto) 0.03 Absolute Neuts (auto) 7.1 Absolute Nucleated RBC 0.000 Nucleated RBC % (auto) 0.0 Smear Tech's Comments VERIFIED PT 12.9 H INR 1.1 Anion Gap 13 Estim Creat Clear Calc 62.0 Estimated GFR > 60 Random Glucose 119 H Calcium 8.2 L D Magnesium 1.9 Total Bilirubin 0.2 Direct Bilirubin < 0.2 AST 16 ALT 9 Alkaline Phosphatase 33 L Troponin I High Sens 5.1 Total Protein 5.0 L Albumin 3.4 L Influenza Type A (PCR) NEGATIVE Influenza Type B (PCR) NEGATIVE RSV RNA Qual (PCR) NEGATIVE SARS-CoV-2 RNA (RT-PCR) NEGATIVE Blood Type O Positive Antibody Screen NEGATIVE Crossmatch See Detail Imaging Radiologist's Impressions: Impressions Chest X-Ray 06/12/24 15:01 IMPRESSION: Low lung volumes. Linear atelectasis at lung bases. No acute abnormality. Electronically signed by: Darrion Field MD 06/12/2024 03:53 PM EDT RP Assessment and Plan (1) Symptomatic anemia: Status: Resolved Plan 78yo F with COPD/asthma, chronic HFrEF, and ITP, transfusion dependent anemia here with dyspnea due to symptomatic anemia and possible high output heart failure as a result of anemia. #Acute on chronic iron def anemia, likely chroic gi bleed -getting 2 units now then repeat -check occult blood -hematology consult #ITP--platlet within baseline # chronic HFrEF # aortic stenosis - moderate fluid overload -IV Lasix following transfusion # COPD/asthma exacerbation, no exacerbation - Inhalers PRN #mild hypernatremia--monitor and repeat tommorrow # mood disorder - continue alprazolam, bupropion #chronic pain, hydrocodone # VTE ppx - SCDs, avoid heparinoids given anemia + thrombocytopenia admission for at least 2 midngihtts for management symptomatic severe anemia Quality Stroke Does the patient have a stroke diagnosis?: No VTE Prior VTE?: No VTE Risk Level:: Medical - moderate - high VTE Device Contraindication: N/A - Device Ordered VTE Drug Contraindication: Treatment Not Tolerated
--- NOTE | 2024-06-12 18:29 | MHC.EDTECH ---
1800 rounding done ,vitals taken ,Patient belongings list done ,Patient was set up with dinner ,Call phillips within Pt reach .
--- NOTE | 2024-06-12 19:20 | MHC.EDTECH ---
Patient rang was was assisted to bedside commode ,Patient had a small bowel movement ,care given gown and bedding change ,warm blankets given and fresh vikash lexa ,Call phillips within pt reach .
--- NOTE | 2024-06-12 19:43 | MHC.EDTECH ---
Patient rang was,assisted to bedside commode ,void and back to bed .
[2024-06-12] MEDS: oxyCODONE HCl Immed Release 5 MG TABLET PO (19:53)
--- NOTE | 2024-06-12 20:14 | PC.NURSE ---
pt medicated per nov with prn for chronic knee pain. pt took oxycodone 5mg then stated she usually gets hydrocodone 10mg verified via pharmacy records. aware.
--- NOTE | 2024-06-12 20:30 | PC.NURSE ---
1st blood transfusion infused. vss. pt is axox4 speaking full clear sentences. verbalizes improvement of sx. lung sounds slight crackles ausc, denies sob. call phillips within reach.
[2024-06-12] MEDS: HYDROcodone Bit/Acetam 5/325 TABLET 1 TAB PO (20:42)
[2024-06-12] MEDS: Furosemide 40 MG/4 ML VIAL IVPUSH (20:42)
--- NOTE | 2024-06-12 20:50 | PHA.MEDREC ---
Pharmacy Consult ? Medication Reconciliation Pharmacy has completed the medication reconciliation. Spoke to patient and confirmed medication list.
--- NOTE | 2024-06-12 21:42 | PC.NURSE ---
aware of temp to start blood transfusion.
[2024-06-12] MEDS: ALPRAZolam 0.5 MG TABLET PO (21:59)
--- NOTE | 2024-06-12 22:32 | PC.NURSE ---
pt reports pain improved to 7/10 with meds, states this is a comfortable level for her. requested prn xanax as feeling anxious/difficulty sleeping. pt is axox4 speaking full clear sentencces. skin wpd. lung sounds slight crackles bilat lower, bilat upper cta. pt denies cp/sob. blood transfusion initial 15 min completed without reaction, vitals as documented. blood infusing per tar. call phillips within reach.
--- NOTE | 2024-06-12 23:54 | MHC.EDTECH ---
0000 rounding done ,vitals taken ,Patient was assisted unto bedside commode ,void Erica care given ,bedding change ,warm blanket given ,Patient drank 240 ml hot tea ,Call phillips within Pt reach .
[2024-06-13] VITALS (14 sets, daily range): BP systolic 115–137; BP diastolic 45–60; PULSE 79–98; RESP 16–20; TEMP 35.8–37.2; O2SAT 96–99
[2024-06-13 06:04] LABS: Anion Gap 11 (12-20); Blood Urea Nitrogen 28 mg/dL (9-16); Calcium 8.2 mg/dL (8.4-10.2); Carbon Dioxide 28 mmol/L (22-29); Chloride 108 mmol/L (96-108); Creatinine Clr Calc Pharmacy 56.5; Estimated Glomerular Filt Rate > 60; Glucose Random 107 mg/dL (60-115); Potassium 3.6 mmol/L (3.3-5.1); Sodium 143 mmol/L (135-145)
[2024-06-13 06:05] LABS: Mean Corpuscular HGB Conc 31.5 g/dl (31.0-35.0); Mean Corpuscular Hemoglobin 27.3 pg (27.0-33.0); Mean Corpuscular Volume 86.8 fL (80.0-98.0); PLT CLUMP 1; Red Blood Count 2.05 X10*6/uL (4.20-5.50); Red Cell Distribution Width 18.8 % (11.0-16.0)
[2024-06-13 06:20] LABS: Hematocrit 17.8 % (37.0-47.0); Hemoglobin 5.6 g/dl (12.0-16.0)
[2024-06-13 06:21] LABS: PLT ABN DIST 1
--- NOTE | 2024-06-13 07:00 | CA_ITS ---
Transthoracic Echocardiogram Patient (Last, First, Middle): Susan Chan, Gender: Female Date of : 1945 Age: 78 Procedure Date: 06/13/2024 Procedure Type: Transthoracic Echocardiogram Location: OP Height: 160.02 cm Weight: 78.47 kg BSA: 1.82 m2 Heart Rate: 89 bpm BP: 115 / 45 mmHg Urologist Physician: SB Referring MD: Adeel Chin MD Symptoms: anemia, Study Quality: Adequate ECG Rhythm: Sinus Conclusions: - The left ventricular systolic function is mildly decreased. The calculated ejection fraction is 46% by biplane method. - There is mild aortic valve stenosis. Findings Procedure Information The quality of the study was technically difficult. The study quality is limited by the patients inability to tolerate the test. Left Ventricle Normal left ventricular cavity size. There is mildly increased left ventricular wall thickness. The left ventricular systolic function is mildly decreased. The calculated ejection fraction is 46% by biplane method. There is mild global hypokinesis. Evidence suggests grade I (mild) diastolic dysfunction. Wall Motion Rest Echo Findings The basal inferior segment is akinetic. Right Ventricle Normal right ventricular cavity size and systolic function. Atria The left atrium is mildly dilated. The right atrium is normal in size. Aortic Valve There is a normal trileaflet aortic valve. There is mild calcification of the aortic valve. There is mild aortic valve stenosis. The peak aortic velocity is 2.82 m/s with a calculated peak gradient of 32 mmHg. The mean gradient is 18 mmHg. The aortic valve area is 1.79 cm2. There is mild aortic valve regurgitation. Mitral Valve There is mild mitral annular calcification. There is trace mitral valve regurgitation. There is no mitral valve stenosis. Pulmonic Valve The pulmonic valve is likely normal. Tricuspid Valve Normal tricuspid valve structure. There is mild tricuspid valve regurgitation. There is no evidence of pulmonary hypertension. Great Vessels The asc aorta is normal in size. Venous The inferior vena cava was not well visualized. Pericardium/Pleural There is no evidence of pericardial effusion. Prior Study Comparison Changes noted compared to prior study dated: 01/31/2022. Aortic stenosis appears mild in this study. Measurements 2D Linear Measurements IVSd: 1.06 0.6-0.9/0.6-1.0 cm LVIDd: 5.14 3.9-5.3/4.2-5.9 cm LVIDd Index: 2.82 2.4-3.2/2.2-3.1 cm/m2 LVIDs: 3.40 2.0-3.6 cm LVPWd: 1.06 0.7-1.1 cm LA Diam: 3.20 2.7-3.8/3.0-4.0 cm LAIDs Index: 1.76 1.5-2.3 cm/m2 LV Mass: 256.73 67-162/88-224 g LV Mass Index: 141.06 43-95/49-115 g/m2 LVOT Diam: 2.20 3.0+(-)1.3 cm 2D Systolic Function EF 4C: 46.50 >55% EF 2C: 50.00 >55% EF BiP: 45.80 >55% Mitral Valve MV VTI: 0.28 MV Pk Juan: 1.64 MV Mn Juan: 1.29 MV Pk Grad: 11.00 MV Mn Grad: 7.00 MV Pk E: 0.84 MV PK A: 1.06 MV Decel Time: 145.00 E/A: 0.80 E'Lateral: 6.64 E'Medial: 5.00 E/E' Med: 16.70 E/E' Lat: 12.60 PHT: 43.00 MVA PHT: 5.12 MVA Continuity: 3.96 Decel [place]: 5.76 Aortic Valve AoV Pk Juan: 2.82 AoV Mn Juan: 2.06 AoV VTI: 0.55 AoV Pk Grad: 32.00 Aov Mn Grad: 18.00 LUCIANA Cont.VTI: 1.79 AI Pk Juan: 4.63 AI VTI: 1.56 AI [place]: 3.71 LVOT LVOT Pk Juan: 1.46 LVOT Mn Juan: 0.98 LVOT VTI: 0.26 LVOT Pk Grad: 9.00 LVOT Mn Grad: 5.00 LVOT Diam: 2.20 LVOT Area: 3.80 Diastolic Function MV Pk E: 0.84 MV Pk A: 1.06 E/A: 0.80 E'Medial: 5.00 E/E' Med: 16.70 E' Laterial: 6.64 E/E' Lat: 12.60 Right Ventricle TAPSE (mm): 24.90 TVS' Juan: 13.50 Tricuspid Valve TR Pk Juan: 2.17 TR Pk Grad: 19.00 Great Vessels Aorta Sinus of Valsalva: 3.60 2.0-3.5 cm Ao Asc: 3.90 2.1-3.4 cm Pulmonary Veins Pulm Vein S/D 1.20 Pulmonary Valve PV Pk Juan: 1.16 Peak PV Grad: 5.00 Updated in Other Vendor System with Status of Final Manuel Perales MD electronically signed on 06/13/2024 3:12:14 PM with status of Final
[2024-06-13] MEDS: HYDROcodone Bit/Acetam 5/325 TABLET 1 TAB PO ×3 (07:54→20:10)
[2024-06-13] MEDS: 0.9 % Sodium Chloride Flush 3 ML SYRINGE IVFLUSH ×3 (07:59→20:12)
[2024-06-13 09:20] LABS: White Blood Count 7.4 X10*3/uL (4.8-10.8)
[2024-06-13 09:21] LABS: Platelet Count 63 X10*3/uL (160-400)
--- NOTE | 2024-06-13 09:24 | P.CNHO_ITS ---
Subjective - Subjective Chief complaint: Weakness, shortness of breath Patient: known to practice within the last 3 years Consult date: 06/13/24 Primary Care Provider: Joseph Magana MD Medical Summary: DIAGNOSIS: Iron deficiency anemia 2020, chronic ITP CHRONIC ITP. Diagnosed with thrombocytopenia as long as she can remember, her counts ranged from 50-70,000. Never been told of anemia or leukopenia. Never had problems with bruising or bleeding. There was no history of excess alcohol consumption or any chronic illnesses/liver disease that might cause thrombocytopenia. 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 Given her age underlying bone marrow conditions also a possibility although less likely given the chronicity of her condition. Hematological workup in 2016 was negative. Serum immunofixation showed no monoclonal protein, protein electrophoresis revealed hypogammaglobulinemia. Normal beta 2 microglobulin. Developed iron deficiency anemia in 2020. Did not tolerate oral iron. EGD/colonoscopy and capsule endoscopy in 2020 was negative. HPI - Consult Narrative Reason for consult: Severe iron-deficiency anemia Narrative: Susan Chan is a 78 year old female who has recurrent severe iron deficiency anemia secondary to occult GI blood losses. She received parenteral iron therapy in the past but has not been able to follow up for appointments in Hematology for several months. She presents to emergency department whenever she gets weak or dizzy and knows that she is anemic. She received blood transfusion yesterday and feels slightly better today. She denies hematochezia or melena. She feels weak and tired but denies chest pain. She is getting winded even when talking or moving about in her bed. Review of Systems - Constitutional Reports as per [facility] Medical History: Medical History (Last Reviewed 06/12/24 @ 15:10 by SHAYLEE Del Cid) Acute on chronic systolic (congestive) heart failure Anxiety Ascending aorta dilatation Asthma Atherosclerotic cardiovascular disease Cardiomyopathy COPD (chronic obstructive pulmonary disease) COPD exacerbation GERD (gastroesophageal reflux disease) Heart failure with reduced ejection fraction Non-rheumatic aortic regurgitation Non-rheumatic aortic stenosis Non-rheumatic mitral regurgitation Osteoarthritis Thrombocytopenia Family History: Family History (Last Reviewed 06/12/24 @ 15:10 by SHAYLEE Del Cid) Sister Lung cancer Lupus Sister Lung cancer Maternal Aunt Lupus Surgical History: Surgical History (Last Reviewed 06/12/24 @ 15:10 by SHAYLEE Del Cid) Hx of colonoscopy Hx of endoscopy Hx of hysterectomy Hx of oophorectomy Hx of total knee replacement Social History: Social History (Last Reviewed 06/12/24 @ 15:10 by SHAYLEE Del Cid) Living Situation History: Household Members: None Household Members Other:: lives alone Housing: Condominium Do you presently have visiting nurse or other home services: Yes Do you presently have visiting nurse or other home services comment: [employer] MWF Alcohol History: Unable to assess alcohol history related to: Unknown Alcohol History Details: 1. How often do you have a drink containing alcohol?: b. Monthly or less 2. How many drinks containing alcohol do you have on a typical day when you are drinking?: a. 1 or 2 3. How often do you have six or more drinks on one occasion?: a. Never AUDIT-C Alcohol total score: 1 Currently Displaying Signs/Symptoms of Alcohol Withdrawal: No Tobacco History: Patient Tobacco Use Status: Former Tobacco user Second Hand Smoke Exposure: No Substance Use History: Use of substances other than those prescribed or required for medical reasons : No Substance Use Type: Unknown Currently Displaying Signs/Symptoms of Drug Intoxication Withdrawal: No Domestic Abuse History: Have you been hit, kicked, punched, or otherwise hurt by someone within the past year? If so, by whom?: No Do you feel safe in your current relationship?: Yes Is there a partner from a previous relationship who is making you feel unsafe now?: No Are you made to feel afraid or neglected: No Advance Directives: Advance Directives: Yes Advance Directives on File: Yes Advance Directives Date on File: 03/20/23 Homicidal Assessment: Do you have a plan to hurt others: No Plan Nutrition Assessment: Recently lost weight without trying: No Nutrition Risks: No Nutritional Risk Patient : No : No Poor oral hygiene: No Occupation Assessmet: service: No Current occupational status: employed Home Medications and Allergies Current Medications: Current Medications Acetaminophen (Acetaminophen 325 Mg Tablet) 650 mg PO Q6H PRN PRN Reason: Pain, Mild (Pain Scale 1-3), fever or headache Hydrocodone Bitart/Acetaminophen (Hydrocodone Bit/Acetam 5/325 Tablet) 1 tab PO QID PRN PRN Reason: Pain, Severe (Pain Scale 7-10) Last Admin: 06/13/24 07:54 Dose: 1 tab Albuterol Sulfate (Albuterol Sulfate (0.083%) 2.5 Mg/3 Ml Vial.Neb) 2.5 mg INHALE Q6H PRN PRN Reason: Wheezing Albuterol Sulfate (Albuterol Sulfate 90 Mcg 8 Gm Inhaler) 2 puff INHALE Q4H PRN PRN Reason: Wheezing Alprazolam (Alprazolam 0.5 Mg Tablet) 0.5 mg PO TID PRN PRN Reason: Anxiety Last Admin: 06/12/24 21:59 Dose: 0.5 mg Calcium Carbonate (Calcium Carbonate 750 Mg Tab.Chew) 750 mg PO Q4H PRN PRN Reason: Heartburn Cyanocobalamin (Cyanocobalamin (Vitamin B-12) 1,000 Mcg Tablet) 1,000 mcg PO DAILY [facility] Fluticasone Propionate (Fluticasone Propionate Nasal 16 Gm [place]) 1 spray NOSTRIL-B DAILY PRN PRN Reason: Congestion Fluticasone Propionate (Fluticasone Propionate 100 Mcg Blst.W.Dev) 1 puff INHALE RBID [facility] Magnesium Hydroxide (Milk Of Magnesia 30 Ml Oral.Susp) 30 ml PO DAILY PRN PRN Reason: Constipation Melatonin (Melatonin 3 Mg Tablet) 6 mg PO BEDTIME PRN PRN Reason: Insomnia Metoprolol Succinate (Metoprolol Succinate Er 25 Mg Tab.Er.24h) 25 mg PO DAILY [facility]; Protocol Sodium Chloride (0.9 % Sodium Chloride Flush 3 Ml Syringe) 3 ml IVFLUSH QSHIFT [facility] Last Admin: 06/13/24 07:59 Dose: 3 ml Vitamin D (Cholecalciferol (Vitamin D3) 25 Mcg Tablet) 25 mcg PO DAILY [facility] Home Medications ?Medication ?Instructions ?Recorded ?Confirmed ?Type alprazolam 0.5 mg tablet 1 tab PO TID PRN Anxiety 12/07/20 06/12/24 History cholecalciferol (vitamin D3) 25 1,000 unit PO DAILY 02/07/21 06/12/24 History mcg (1,000 unit) capsule (Vitamin D3) albuterol sulfate 2.5 mg/3 mL 2.5 mg inhalation Q6H PRN Wheezing 01/27/22 06/12/24 History (0.083 %) solution for nebulization cyanocobalamin (vitamin B-12) 1,000 mcg PO DAILY 01/27/22 06/12/24 History 1,000 mcg tablet fluticasone propionate 50 1 spray intranasal DAILY PRN 01/27/22 06/12/24 History mcg/actuation nasal Congestion spray,suspension vitamin A 2,400 mcg capsule 2,400 mcg PO DAILY 01/27/22 06/12/24 History metoprolol succinate 25 mg 25 mg PO DAILY 05/17/22 06/12/24 History tablet,extended release 24 hr (Toprol XL) biotin 10,000 mcg chewable tablet 10,000 mcg PO DAILY 12/07/22 06/12/24 History (Hair, Skin and Nails (biotin)) ondansetron HCl 4 mg tablet 1 tab PO Q8H PRN Nausea And 12/07/22 06/12/24 History Vomiting albuterol sulfate 90 mcg/actuation 2 puff inhalation Q4H PRN Wheezing 06/12/24 06/12/24 History aerosol inhaler fluticasone propionate 110 1 puff inhalation BID 06/12/24 06/12/24 History mcg/actuation HFA aerosol inhaler hydrocodone 10 mg-acetaminophen 1 tab PO QID PRN Pain, Moderate 06/12/24 06/12/24 History 325 mg tablet Allergies Allergy/AdvReac Type Severity Reaction Status Date / Time amoxicillin Allergy Unknown Hives Verified 06/12/24 15:07 Penicillins [PENICILLINS] Allergy Unknown Hives Verified 06/12/24 15:07 Sulfa (Sulfonamide Allergy Unknown Hives Verified 06/12/24 15:07 Antibiotics) [SULFA (SULFONAMIDE ANTIBIOTICS)] Physical Exam Vital signs: Vital Signs Temp 99.0 F 06/13/24 06:02 Pulse 86 06/13/24 06:02 Resp 18 06/13/24 06:02 BP 115/45 L 06/13/24 06:02 Pulse Ox 99 06/13/24 06:02 O2 Del Method Nasal Cannula 06/13/24 06:02 O2 Flow Rate 2 06/13/24 06:02 Intake & Output 06/12/24 06/13/24 06/13/24 18:59 06:59 18:59 Intake Total 2026 Balance 2026 Intake: Intake, Oral Amount 1200 / 1200 Intake (Blood Product) Amount 0 / 642 642 / 642 Red Blood Cells (E0336) Unit 350 / 350 [id number] Red Blood Cells Aph (E0685) 0 / 292 292 / 292 Unit [id number] Intake, IV Amount 85 / 185 100 / 185 0.9 % Sodium Chloride 100 ml @ 85 / 185 100 / 185 100 mls/hr IV ONCE ONE Rx#: [id number] Other: Dinner % Eaten 75% Eating (Feeding) Ability Independent Number of Unmeasured Voids 3 Number of Bowel Movements 1 Urine Bedside Commode Urine Color Yellow Stool Bedside Commode Stool Amount Small Stool Color Yellow Weight 78.471 kg Weight 78.471 kg - Constitutional Present: mild distress, average body habitus - Routine HEENT Exam Eye: Present: conjunctivae pale - Routine Neck Exam Present: supple. Absent: lymphadenopathy - Routine Respiratory Exam Absent: accessory muscle use - Routine Cardiovascular Exam Cardiovascular: Present: S1, S2 - Routine Abdominal Exam Present: soft - Routine Extremities Exam Absent: pedal edema Hem/Onc Consult Result - Labs CBC & Chem 7: 06/13/24 04:44 06/13/24 04:44 Labs: Short CBC 06/12/24 06/13/24 Range/Units 15:40 04:44 WBC 8.3 7.4 (4.8-10.8) X10*3/uL Hgb 3.9 L* D 5.6 L* D (12.0-16.0) g/dl Hct 13.4 L* D 17.8 L* D (37.0-47.0) % Plt Count 64 L 63 L (160-400) X10*3/uL BMP 06/12/24 06/13/24 15:40 04:44 Sodium 146 H 143 Potassium 3.9 3.6 Chloride 111 H 108 Carbon Dioxide 26 28 BUN 31 H 28 H Creatinine 0.73 0.80 Calcium 8.2 L D 8.2 L Liver Function 06/12/24 Range/Units 15:40 Total Bilirubin 0.2 (0.0-1.0) mg/dL Direct Bilirubin < 0.2 (0.0-0.5) mg/dL AST 16 (5-31) U/L ALT 9 (0-31) U/L Alkaline Phosphatase 33 L (39-117) U/L Albumin 3.4 L (3.5-5.0) g/dL Assessment and Plan Patient Active problem list reviewed?: Yes (1) Anemia Status: Acute Assessment and plan: 1. This is a 78-year-old woman with iron deficiency anemia diagnosed in November 2020. She has had multiple visits and admissions through emergency department for severe anemia. She presented this time with shortness of breath and was found to have hemoglobin of 3.8 gram/dL. Her ferritin he has 12 consistent with iron deficiency. There is no evidence of hemolysis, LDH is not elevated. Haptoglobin is normal. She had EGD and colonoscopy in January 2022 which revealed esophagitis, moderate chronic antral erosions, duodenitis. Colonoscopy revealed 1 cm nonbleeding AVM in the cecum which was ablated. Patchy resolving colitis from 50-60 cm and erythema with superficial ulcers, biopsies were obtained. There were moderate hemorrhoids. All biopsies were negative for malignancy. She received parenteral iron therapy in the past. She needs to be closely monitored and scheduled for parenteral iron therapy as outpatient. 2. Chronic thrombocytopenia, probable ITP. Her platelet counts are stable. I have advised her to follow-up in Hematology Clinic in a week or 2. Thank you for the consult. - Time Spent With Patient Time Spent with Patient (in minutes): 20 Additional Coding: - Additional E/M codes Complex E/M visit Add On: CPT G2211
[2024-06-13] MEDS: Metoprolol Succinate ER 25 MG TAB.ER.24H PO (09:29)
[2024-06-13] MEDS: Cholecalciferol (Vitamin D3) 25 MCG TABLET PO (09:29)
[2024-06-13] MEDS: Cyanocobalamin (Vitamin B-12) 1,000 MCG TABLET 1000 MCG PO (09:30)
--- NOTE | 2024-06-13 09:34 | MHC.CM.PN ---
ROMAN 06/13/24, EMR REVIEWED, PT W/SYMPTOMATIC ANEMIA/DYSPNEA, CM MET W/PT WHO REPORTS SHE LIVES ALONE, USES A ROLLATER WALKER, NO HOME SERVICES PT WORKS A PHARMACY TECHNOLOGIST, PT REPORTS SHE PLANS ON SELLING HER CONDO AND MOVING TO A ONE LEVEL HOME SHE HAS DIFFICULTY W/STAIRS, PT VERIFIES PCP/HCP ON FILE ARE CORRECT.
[2024-06-13 09:42] LABS: Ferritin 12 ng/mL (10-250)
--- NOTE | 2024-06-13 09:44 | HO.PM.IMPN ---
Subjective Subjective Date of Service: 06/13/24 Interval History: weakness, nasuea Physical Exam Vital Signs: Vital Signs: Last Vital Signs Temp 99.0 F 06/13/24 06:02 Pulse 86 06/13/24 09:29 Resp 18 06/13/24 06:02 BP 115/45 L 06/13/24 09:29 Pulse Ox 99 06/13/24 06:02 O2 Del Method Nasal Cannula 06/13/24 06:02 O2 Flow Rate 2 06/13/24 06:02 BMI result Body Mass Index 30.6 General: AO X 3, frail Resp: diminished bilateral, no accessory muscles used CVS: S1,S2,RRR, murmur GI: soft, non tender, non distended Neuro: motor grossly intact, alert Psych: appropriate affect, appropriate insight Objective Data Active Medications Acetaminophen (Acetaminophen 325 Mg Tablet) 650 mg PO Q6H PRN PRN Reason: Pain, Mild (Pain Scale 1-3), fever or headache Hydrocodone Bitart/Acetaminophen (Hydrocodone Bit/Acetam 5/325 Tablet) 1 tab PO QID PRN PRN Reason: Pain, Severe (Pain Scale 7-10) Last Admin: 06/13/24 07:54 Dose: 1 tab Documented By: ADAM Albuterol Sulfate (Albuterol Sulfate (0.083%) 2.5 Mg/3 Ml Vial.Neb) 2.5 mg INHALE Q6H PRN PRN Reason: Wheezing Albuterol Sulfate (Albuterol Sulfate 90 Mcg 8 Gm Inhaler) 2 puff INHALE Q4H PRN PRN Reason: Wheezing Alprazolam (Alprazolam 0.5 Mg Tablet) 0.5 mg PO TID PRN PRN Reason: Anxiety Last Admin: 06/12/24 21:59 Dose: 0.5 mg Documented By: CONG Calcium Carbonate (Calcium Carbonate 750 Mg Tab.Chew) 750 mg PO Q4H PRN PRN Reason: Heartburn Cyanocobalamin (Cyanocobalamin (Vitamin B-12) 1,000 Mcg Tablet) 1,000 mcg PO DAILY [facility] Last Admin: 06/13/24 09:30 Dose: 1,000 mcg Documented By: NOLAN Fluticasone Propionate (Fluticasone Propionate Nasal 16 Gm [place]) 1 spray NOSTRIL-B DAILY PRN PRN Reason: Congestion Fluticasone Propionate (Fluticasone Propionate 100 Mcg Blst.W.Dev) 1 puff INHALE RBID [facility] Magnesium Hydroxide (Milk Of Magnesia 30 Ml Oral.Susp) 30 ml PO DAILY PRN PRN Reason: Constipation Melatonin (Melatonin 3 Mg Tablet) 6 mg PO BEDTIME PRN PRN Reason: Insomnia Metoprolol Succinate (Metoprolol Succinate Er 25 Mg Tab.Er.24h) 25 mg PO DAILY [facility]; Protocol Last Admin: 06/13/24 09:29 Dose: 25 mg Documented By: NOLAN Sodium Chloride (0.9 % Sodium Chloride Flush 3 Ml Syringe) 3 ml IVFLUSH QSHIFT [facility] Last Admin: 06/13/24 07:59 Dose: 3 ml Documented By: ADAM Vitamin D (Cholecalciferol (Vitamin D3) 25 Mcg Tablet) 25 mcg PO DAILY [facility] Last Admin: 06/13/24 09:29 Dose: 25 mcg Documented By: NOLAN Labs 06/13/24 04:44 06/13/24 04:44 Labs: Laboratory Results - last 24 hr 06/12/24 06/12/24 06/13/24 15:40 15:45 04:44 MCV 84.8 86.8 MCH 24.7 L 27.3 MCHC 29.1 L 31.5 RDW 21.4 H 18.8 H Plt Count 64 L 63 L MPV Not Reportable Not Reportable Immature Gran % (Auto) 0.4 Neut % (Auto) 85.2 H Lymph % (Auto) 6.6 L [place] % (Auto) 7.2 Eos % (Auto) 0.1 Baso % (Auto) 0.5 Lymph # (Auto) 0.6 L [place] # (Auto) 0.6 Eos # (Auto) 0.0 Baso # (Auto) 0.0 Abs Immat Gran (auto) 0.03 Absolute Neuts (auto) 7.1 Absolute Nucleated RBC 0.000 0.000 Nucleated RBC % (auto) 0.0 0.0 Smear Tech's Comments VERIFIED PT 12.9 H INR 1.1 Anion Gap 13 11 L Estim Creat Clear Calc 62.0 56.5 Estimated GFR > 60 > 60 Random Glucose 119 H 107 Calcium 8.2 L D 8.2 L Magnesium 1.9 Ferritin 12 Total Bilirubin 0.2 Direct Bilirubin < 0.2 AST 16 ALT 9 Alkaline Phosphatase 33 L Troponin I High Sens 5.1 Total Protein 5.0 L Albumin 3.4 L Influenza Type A (PCR) NEGATIVE Influenza Type B (PCR) NEGATIVE RSV RNA Qual (PCR) NEGATIVE SARS-CoV-2 RNA (RT-PCR) NEGATIVE Blood Type O Positive Antibody Screen NEGATIVE Crossmatch See Detail Assessment and Plan (1) Anemia: Status: Acute Plan 78F PMH copd, hfref, ITP, mod , chronic anemia, presented with weakness/anemia Acute on chronic iron deficiency anemia Received 2 units PRBC and hemoglobin improved to 5.4, will give another 2 units Follow-up ferritin, LDH, Hematology Monitor CBC Moderate aortic stenosis murmur Check echo ITP Platelets stable COPD Continue inhalers p.r.n. Mood disorder Continue bupropion, Xanax DVT prophylaxis-mechanical due to severe anemia Full code reason for continued hospitalization: Still with severe anemia requiring transfusions Quality Stroke Does the patient have a stroke diagnosis?: No VTE Prior VTE?: No VTE Risk Level:: Medical - moderate - high VTE Device Contraindication: N/A - Device Ordered VTE Drug Contraindication: Treatment Not Tolerated
[2024-06-13 10:02] LABS: Immature Retic Fraction 13.5 % (3.0-15.9); Reticulocyte Percent 1.6 % (0.5-1.8); Reticulocytes Absolute 0.035 X10*6/uL (0.026-0.095)
[2024-06-13 10:03] LABS: Lactate Dehydrogenase 206 U/L (122-220)
[2024-06-13 10:16] LABS: Haptoglobin 81 mg/dL (63-273)
[2024-06-13] MEDS: ondansetron HCL 4 MG/2 ML VIAL IVPUSH (10:16)
[2024-06-13] MEDS: Cyclobenzaprine HCl 5 MG TABLET PO (10:34)
[2024-06-13] MEDS: Furosemide 40 MG/4 ML VIAL IVPUSH (13:05)
[2024-06-13] MEDS: ALPRAZolam 0.5 MG TABLET PO (21:10)
[2024-06-13] MEDS: Acetaminophen 325 MG TABLET 650 MG PO (23:21)
[2024-06-14] VITALS (7 sets, daily range): BP systolic 118–133; BP diastolic 53–60; PULSE 71–85; RESP 18–20; TEMP 36.3–36.8; O2SAT 92–98
[2024-06-14] MEDS: HYDROcodone Bit/Acetam 5/325 TABLET 1 TAB PO ×4 (03:32→22:20)
[2024-06-14] MEDS: ALPRAZolam 0.5 MG TABLET PO ×2 (05:05→20:52)
[2024-06-14 06:28] LABS: Red Cell Distribution Width 17.5 % (11.0-16.0)
[2024-06-14 06:30] LABS: Hematocrit 23.2 % (37.0-47.0); Hemoglobin 7.4 g/dl (12.0-16.0); Mean Corpuscular HGB Conc 31.9 g/dl (31.0-35.0); Mean Corpuscular Hemoglobin 28.4 pg (27.0-33.0); Mean Corpuscular Volume 88.9 fL (80.0-98.0); PLT CLUMP 1; Red Blood Count 2.61 X10*6/uL (4.20-5.50)
[2024-06-14 06:39] LABS: Alanine Aminotransferase 11 U/L (0-31); Albumin Level 3.3 g/dL (3.5-5.0); Alkaline Phosphatase 35 U/L (39-117); Anion Gap 11 (12-20); Aspartate Amino Transferase 15 U/L (5-31); Bilirubin Direct 0.3 mg/dL (0.0-0.5); Bilirubin Total 0.7 mg/dL (0.0-1.0); Blood Urea Nitrogen 26 mg/dL (9-16); Calcium 8.1 mg/dL (8.4-10.2); Carbon Dioxide 29 mmol/L (22-29); Chloride 106 mmol/L (96-108); Creatinine Clr Calc Pharmacy 57.2; Estimated Glomerular Filt Rate > 60; Glucose Fasting 109 mg/dL (60-99); Potassium 3.5 mmol/L (3.3-5.1); Sodium 142 mmol/L (135-145); Total Protein 4.8 g/dL (6.5-8.0)
[2024-06-14 06:48] LABS: PLT ABN DIST 1
[2024-06-14] MEDS: Metoprolol Succinate ER 25 MG TAB.ER.24H PO (08:01)
[2024-06-14] MEDS: Cyanocobalamin (Vitamin B-12) 1,000 MCG TABLET 1000 MCG PO (08:02)
[2024-06-14] MEDS: Cholecalciferol (Vitamin D3) 25 MCG TABLET PO (08:02)
[2024-06-14] MEDS: 0.9 % Sodium Chloride Flush 3 ML SYRINGE IVFLUSH ×2 (08:02→14:41)
[2024-06-14] MEDS: Fluticasone Propionate 100 MCG BLST.W.DEV 1 PUFF INHALE ×2 (08:28→18:40)
[2024-06-14 08:38] LABS: White Blood Count 7.2 X10*3/uL (4.8-10.8)
[2024-06-14 08:39] LABS: Platelet Count 60 X10*3/uL (160-400)
--- NOTE | 2024-06-14 10:40 | P.PNIM_ITS ---
Subjective Subjective Date of Service: 06/14/24 Interval History: reorting melena Physical Exam 2 Vital Signs: Vital Signs: Last Vital Signs Temp 97.7 F 06/14/24 07:17 Pulse 75 06/14/24 08:28 Resp 18 06/14/24 08:28 BP 133/60 06/14/24 07:17 Pulse Ox 92 06/14/24 07:17 O2 Del Method Room Air 06/14/24 07:17 O2 Flow Rate 2 06/13/24 23:45 BMI result Body Mass Index 30.6 General: AO X 3, no acute distress Resp: CTA bilateral, no accessory muscles used CVS: S1,S2,RRR, murmur GI: soft, non tender, non distended Neuro: motor grossly intact, alert Psych: appropriate affect, appropriate insight Objective Data Active Medications Acetaminophen (Acetaminophen 325 Mg Tablet) 650 mg PO Q6H PRN PRN Reason: Pain, Mild (Pain Scale 1-3), fever or headache Last Admin: 06/13/24 23:21 Dose: 650 mg Documented By: DAVID Hydrocodone Bitart/Acetaminophen (Hydrocodone Bit/Acetam 5/325 Tablet) 1 tab PO QID PRN PRN Reason: Pain, Severe (Pain Scale 7-10) Last Admin: 06/14/24 03:32 Dose: 1 tab Documented By: DAVID Albuterol Sulfate (Albuterol Sulfate (0.083%) 2.5 Mg/3 Ml Vial.Neb) 2.5 mg INHALE Q6H PRN PRN Reason: Wheezing Albuterol Sulfate (Albuterol Sulfate 90 Mcg 8 Gm Inhaler) 2 puff INHALE Q4H PRN PRN Reason: Wheezing Alprazolam (Alprazolam 0.5 Mg Tablet) 0.5 mg PO TID PRN PRN Reason: Anxiety Last Admin: 06/14/24 05:05 Dose: 0.5 mg Documented By: DAVID Calcium Carbonate (Calcium Carbonate 750 Mg Tab.Chew) 750 mg PO Q4H PRN PRN Reason: Heartburn Cyanocobalamin (Cyanocobalamin (Vitamin B-12) 1,000 Mcg Tablet) 1,000 mcg PO DAILY [facility] Last Admin: 06/14/24 08:02 Dose: 1,000 mcg Documented By: NOLAN Fluticasone Propionate (Fluticasone Propionate Nasal 16 Gm [place]) 1 spray NOSTRIL-B DAILY PRN PRN Reason: Congestion Fluticasone Propionate (Fluticasone Propionate 100 Mcg Blst.W.Dev) 1 puff INHALE RBID [facility] Last Admin: 06/14/24 08:28 Dose: 1 puff Documented By: ANGELA Magnesium Hydroxide (Milk Of Magnesia 30 Ml Oral.Susp) 30 ml PO DAILY PRN PRN Reason: Constipation Melatonin (Melatonin 3 Mg Tablet) 6 mg PO BEDTIME PRN PRN Reason: Insomnia Metoprolol Succinate (Metoprolol Succinate Er 25 Mg Tab.Er.24h) 25 mg PO DAILY [facility]; Protocol Last Admin: 06/14/24 08:01 Dose: 25 mg Documented By: NOLAN Ondansetron HCl (Ondansetron Hcl 4 Mg/2 Ml Vial) 4 mg IVPUSH Q6H PRN PRN Reason: Nausea Last Admin: 06/13/24 10:16 Dose: 4 mg Documented By: NOLAN Pantoprazole Sodium (Pantoprazole Sodium 40 Mg/10 Ml Vial) 40 mg IVPUSH BID@0630,1630 [facility] Sodium Chloride (0.9 % Sodium Chloride Flush 3 Ml Syringe) 3 ml IVFLUSH QSHIFT [facility] Last Admin: 06/14/24 08:02 Dose: 3 ml Documented By: NOLAN Vitamin D (Cholecalciferol (Vitamin D3) 25 Mcg Tablet) 25 mcg PO DAILY [facility] Last Admin: 06/14/24 08:02 Dose: 25 mcg Documented By: NOLAN Labs 06/14/24 06:01 06/14/24 06:01 Labs: Laboratory Results - last 24 hr 06/12/24 06/14/24 15:40 06:01 MCV 88.9 MCH 28.4 MCHC 31.9 RDW 17.5 H Plt Count 60 L MPV Not Reportable Absolute Nucleated RBC 0.000 Nucleated RBC % (auto) 0.0 Anion Gap 11 L Estim Creat Clear Calc 57.2 Estimated GFR > 60 Fasting Glucose 109 H Calcium 8.1 L Total Bilirubin 0.7 Direct Bilirubin 0.3 AST 15 ALT 11 Alkaline Phosphatase 35 L Total Protein 4.8 L Albumin 3.3 L Blood Type O Positive Antibody Screen NEGATIVE Crossmatch See Detail Assessment and Plan (1) Anemia: Status: Acute Plan 78F PMH copd, hfref, ITP, mod , chronic anemia, presented with weakness/anemia Acute on chronic iron deficiency anemia likely chronic gi losses Received 4 units PRBC and hemoglobin improved to 7.4, from 3.9 Monitor CBC protonix, (says she doesnt tolerate omeprazole) gi eval history of Moderate aortic stenosis echo with mild chronic systolic chf ef 45% continue toprol ITP Platelets stable COPD Continue inhalers p.r.n. Mood disorder Continue bupropion, Xanax DVT prophylaxis-mechanical due to severe anemia Full code reason for continued hospitalization: reporting melena Quality Stroke Does the patient have a stroke diagnosis?: No VTE Prior VTE?: No VTE Risk Level:: Medical - moderate - high VTE Device Contraindication: N/A - Device Ordered VTE Drug Contraindication: Treatment Not Tolerated
[2024-06-14] MEDS: Pantoprazole Sodium 40 MG/10 ML VIAL IVPUSH ×2 (11:17→16:04)
--- NOTE | 2024-06-14 13:32 | P.CNGI_ITS ---
History of Present Illness Data of Consult Service Date: 06/14/24 Requesting physician: Adeel Chin Primary Care Provider: MD NETO Cid Reason for consult: acute on chronic anemia, melena 79 YF with with chronic ITP, ischemic cardiomyopathy, anxiety, GERD, chronic HFrEF, COPD/chronic bronchitis/asthma, chronic anemia (managed with intermittent transfusions) admitted to [facility] on 06/12/24 with increasing shortness of breath that she atributes to anemia. (Pt reports being transfused 18 units the past year). Pt denied melena or hematochezia on admission--and noted black stools yesterday. Had a small BM today and stool was darker than usual. Pt denies diarrhea or constipation and has a BM daily. She complains of nausea and some lower abdominal discomfort today She notes lower extermity edema for the past 2 months Patient denies being on oral anticoagulation or use of aspirin or NSAIDs Patient quit smoking 20 years ago and denies ETOH abuse She is and lives by herself (has a cat at home). 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 Her hemoglobin is 3.9, Plat 64, tachycardic, and declined rectal exam. Pt was been transfused 4U of PRBC since admission. PAST GI HISTORY ON REVIEW OF MEDICAL RECORDS: ENDOSCOPIC STUDIES: 01/31/22 EGD AND COLONOSCOPY SHOWED: ESOPHAGUS: Small hiatal hernia 35 to 38 cms. Minimal esophagitis with a 0.5 cms superficial erosion at GEJ.? ? STOMACH: Moderate gastric erythema with multiple chronic apearing antral erosions Biopsies were obtained. DUODENUM:? Duoentitis in the apex of the bulb with a 1 cms edematous fold/benign appearing nodule - biopsied. Normal descending duodenum - biopsies were obtained to check for celiac sprue Colonoscopy Findings: A 1 cms non- bleeding AVM in the cecum ablated with APC Patchy resolving colitis from 50 to 60 cms with erythema and superficial ulcers (? ischemic colitis versus due to NSAID) - biopsies obtained. A few 3-4 mm diminutive appearing rectal polyps - biopsied. Moderate diverticulosis seen in the left colon Moderate hemorrhoids on retroflexed exam. Plan:? Capsule Endoscopy as an outpatient Repeat Colonoscopy interval based on path results - in 1 year due to fair prep BIOPSIES SHOWED: A.? Small bowel, biopsy:? Small intestinal mucosa within normal limits; negative for celiac disease. B.? Duodenum, nodule, biopsy:? 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 C.? Stomach, antrum, biopsy:? Antral-type mucosa with moderate chronic inactive inflammation; no Helicobacter organisms seen. D.? Colon, sigmoid, biopsy:? Active erosive colitis; no fully developed chronic injury identified. E.? Rectum, polypectomies:? Hyperplastic mucosal polyp. 03/03/22 CAPSULE ENDOSCOPY SHOWED: Findings: esophagus was normal. Stomach mucosa with patchy gastritis. duodenum entered at 2 min 20 sec with bulbar duodenitis. Good views of small bowel mucosa, no active bleeding or masses seen. cecum entered at 3 hr 23 mins Conclusion: gastritis duodenitis no active bleeding noted check h pylori and nsaid history ? Review of Systems 2 Review of Systems: Gen: no fever Resp: + sob, no cough CV: no chest, no WALDRON, no leg edema GI: No n/v, no abd pain Neuro: No confusion Yes all other systems are reviewed and are negative [facility] Past Medical History Medical History (Updated 06/26/24 @ 00:03 by Piter Carlos) Ascending aorta dilatation Atherosclerotic cardiovascular disease Non-rheumatic mitral regurgitation Non-rheumatic aortic regurgitation Non-rheumatic aortic stenosis Cardiomyopathy COPD exacerbation Heart failure with reduced ejection fraction Acute on chronic systolic (congestive) heart failure COPD (chronic obstructive pulmonary disease) Thrombocytopenia Osteoarthritis GERD (gastroesophageal reflux disease) Anxiety Asthma Family History Family History Sister Lung cancer Lupus Sister Lung cancer Maternal Aunt Lupus Surgical History Surgical History (Updated 06/20/24 @ 07:29 by Toma Colby) Hx of colonoscopy Hx of endoscopy Hx of oophorectomy Hx of hysterectomy Hx of total knee replacement Social History Social History Household Members: None Household Members Other:: lives alone Housing: Condominium Are you a primary outdoor emergency care technician to a significant other at home: No Do you presently have visiting nurse or other home services: No Unable to assess alcohol history related to: Unknown Alcohol intake: current Alcohol intake frequency: a few times a month Comment: patient refusing alarms Patient Tobacco Use Status: Former Tobacco user Second Hand Smoke Exposure: No Substance Use Type: Unknown Advance Directives Date on File: 03/20/23 service: No Current occupational status: employed Meds Allergies Allergy/AdvReac Type Severity Reaction Status Date / Time amoxicillin Allergy Unknown Hives Verified 06/12/24 15:07 Penicillins [PENICILLINS] Allergy Unknown Hives Verified 06/12/24 15:07 Sulfa (Sulfonamide Allergy Unknown Hives Verified 06/12/24 15:07 Antibiotics) [SULFA (SULFONAMIDE ANTIBIOTICS)] Active Medications: Current Medications Acetaminophen (Acetaminophen 325 Mg Tablet) 650 mg PO Q6H PRN PRN Reason: Pain, Mild (Pain Scale 1-3), fever or headache Last Admin: 06/13/24 23:21 Dose: 650 mg Hydrocodone Bitart/Acetaminophen (Hydrocodone Bit/Acetam 5/325 Tablet) 1 tab PO QID PRN PRN Reason: Pain, Severe (Pain Scale 7-10) Last Admin: 06/14/24 11:17 Dose: 1 tab Albuterol Sulfate (Albuterol Sulfate (0.083%) 2.5 Mg/3 Ml Vial.Neb) 2.5 mg INHALE Q6H PRN PRN Reason: Wheezing Albuterol Sulfate (Albuterol Sulfate 90 Mcg 8 Gm Inhaler) 2 puff INHALE Q4H PRN PRN Reason: Wheezing Alprazolam (Alprazolam 0.5 Mg Tablet) 0.5 mg PO TID PRN PRN Reason: Anxiety Last Admin: 06/14/24 05:05 Dose: 0.5 mg Calcium Carbonate (Calcium Carbonate 750 Mg Tab.Chew) 750 mg PO Q4H PRN PRN Reason: Heartburn Cyanocobalamin (Cyanocobalamin (Vitamin B-12) 1,000 Mcg Tablet) 1,000 mcg PO DAILY [facility] Last Admin: 06/14/24 08:02 Dose: 1,000 mcg Fluticasone Propionate (Fluticasone Propionate Nasal 16 Gm [place]) 1 spray NOSTRIL-B DAILY PRN PRN Reason: Congestion Fluticasone Propionate (Fluticasone Propionate 100 Mcg Blst.W.Dev) 1 puff INHALE RBID [facility] Last Admin: 06/14/24 08:28 Dose: 1 puff Magnesium Hydroxide (Milk Of Magnesia 30 Ml Oral.Susp) 30 ml PO DAILY PRN PRN Reason: Constipation Melatonin (Melatonin 3 Mg Tablet) 6 mg PO BEDTIME PRN PRN Reason: Insomnia Metoprolol Succinate (Metoprolol Succinate Er 25 Mg Tab.Er.24h) 25 mg PO DAILY [facility]; Protocol Last Admin: 06/14/24 08:01 Dose: 25 mg Ondansetron HCl (Ondansetron Hcl 4 Mg/2 Ml Vial) 4 mg IVPUSH Q6H PRN PRN Reason: Nausea Last Admin: 06/13/24 10:16 Dose: 4 mg Pantoprazole Sodium (Pantoprazole Sodium 40 Mg/10 Ml Vial) 40 mg IVPUSH BID@0630,1630 [facility] Last Admin: 06/14/24 11:17 Dose: 40 mg Sodium Chloride (0.9 % Sodium Chloride Flush 3 Ml Syringe) 3 ml IVFLUSH QSHIFT [facility] Last Admin: 06/14/24 08:02 Dose: 3 ml Vitamin D (Cholecalciferol (Vitamin D3) 25 Mcg Tablet) 25 mcg PO DAILY [facility] Last Admin: 06/14/24 08:02 Dose: 25 mcg Home Medications ?Medication ?Instructions ?Recorded ?Confirmed ?Last Taken ?Type alprazolam 0.5 mg tablet 1 tab PO TID PRN Anxiety 12/07/20 06/12/24 10/12/22 History cholecalciferol (vitamin D3) 25 1,000 unit PO DAILY 02/07/21 06/12/24 10/12/22 History mcg (1,000 unit) capsule (Vitamin D3) albuterol sulfate 2.5 mg/3 mL 2.5 mg inhalation Q6H PRN Wheezing 01/27/22 06/12/24 10/12/22 History (0.083 %) solution for nebulization cyanocobalamin (vitamin B-12) 1,000 mcg PO DAILY 01/27/22 06/12/24 10/12/22 History 1,000 mcg tablet fluticasone propionate 50 1 spray intranasal DAILY PRN 01/27/22 06/12/24 10/12/22 History mcg/actuation nasal Congestion spray,suspension vitamin A 2,400 mcg capsule 2,400 mcg PO DAILY 01/27/22 06/12/24 10/12/22 History metoprolol succinate 25 mg 25 mg PO DAILY 05/17/22 06/12/24 10/12/22 History tablet,extended release 24 hr (Toprol XL) biotin 10,000 mcg chewable tablet 10,000 mcg PO DAILY 12/07/22 06/12/24 Unknown History (Hair, Skin and Nails (biotin)) ondansetron HCl 4 mg tablet 1 tab PO Q8H PRN Nausea And 12/07/22 06/12/24 Unknown History Vomiting albuterol sulfate 90 mcg/actuation 2 puff inhalation Q4H PRN Wheezing 06/12/24 06/12/24 Unknown History aerosol inhaler fluticasone propionate 110 1 puff inhalation BID 06/12/24 06/12/24 06/12/24 History mcg/actuation HFA aerosol inhaler hydrocodone 10 mg-acetaminophen 1 tab PO QID PRN Pain, Moderate 06/12/24 06/12/24 Unknown History 325 mg tablet Physical Exam 2 Vital Signs: Vital Signs: Last Vital Signs Temp 97.4 F 06/14/24 11:12 Pulse 78 06/14/24 11:12 Resp 18 06/14/24 11:12 BP 127/54 L 06/14/24 11:12 Pulse Ox 92 06/14/24 11:12 O2 Del Method Room Air 06/14/24 11:12 O2 Flow Rate 2 06/13/24 23:45 BMI result Body Mass Index 30.6 Const: Other: Constitutional: Alert, in no distress, overweight. Mental Status: Oriented to person, place and time. Eyes: Pupils are equal, round and reactive to light. Ear, Nose and Throat: Oropharynx clear, mucous membranes moist. Ears and nose without eformities. Trachea midline. Respiratory: Clear to auscultation. No wheezing, rales or rhonchi. Cardiovascular: S1 S2 regular. 4/6 systolic murmur at LSB. 1+ leg edema Gastrointestinal: Abdomen soft, non-tender, non-distended. Normal bowel sounds.? Neurologic: Cranial nerves II-XII grossly intact. No focal neurological deficits. Moves all extremities spontaneously.? Skin: No rashes or lesions.? Musculoskeletal: No cyanosis or clubbing. Psychiatric: Normal mood and affect? Results Labs 06/18/24 05:55 06/18/24 05:55 Labs: Short CBC 06/14/24 Range/Units 06:01 WBC 7.2 (4.8-10.8) X10*3/uL Hgb 7.4 L D (12.0-16.0) g/dl Hct 23.2 L D (37.0-47.0) % Plt Count 60 L (160-400) X10*3/uL BMP 06/14/24 06:01 Sodium 142 Potassium 3.5 Chloride 106 Carbon Dioxide 29 BUN 26 H Creatinine 0.79 Calcium 8.1 L Liver Function 06/14/24 Range/Units 06:01 Total Bilirubin 0.7 (0.0-1.0) mg/dL Direct Bilirubin 0.3 (0.0-0.5) mg/dL AST 15 (5-31) U/L ALT 11 (0-31) U/L Alkaline Phosphatase 35 L (39-117) U/L Albumin 3.3 L (3.5-5.0) g/dL Assessment and Plan (1) Anemia: Status: Acute Plan 79 YF with with chronic ITP, ischemic cardiomyopathy, anxiety, GERD, chronic HFrEF, COPD/chronic bronchitis/asthma, chronic anemia (managed with intermittent transfusions) admitted to [facility] on 06/12/24 with acute on chronic anemia. (Pt reports being transfused 18 units the past year). Pt denied hemaotchezia or melena on admission and has noted dark stools/melena since yesterday Pt was been transfused 4U of PRBC since admission. Past evaluation with endoscopy, capsule endoscopy, and colonoscopy showed patchy gastritis, bulbar duodenitis, minimal esophagitis, and chronic antral erosions but no evidence of acute bleeding.? Past iron studies were consistent with iron deficiency anemia.? No clear source of anemia found on past evaluations with EGD, colonoscopy and Capsule Endoscopy. Recurrent anemia can be due to slow GI blood loss from UGI/small bowel or colonic AVMs RECOMMENDATIONS: 1. Check stool for OB and follow CBC daily 2. Pt advised repeat EGD and colon - tentatively scheduled on 06/17/24 (She may elect to go home over the weekend if CBC remains stable - has a cat at home) 3. Resume parenteral iron therapy after discharge. ? Procedures Date of Service Date of Service: 06/28/24
[2024-06-14] MEDS: ondansetron HCL 4 MG/2 ML VIAL IVPUSH (14:39)
--- NOTE | 2024-06-14 15:22 | MHC.CM.PN ---
EMR reviewed and per MD rounds, pt is not medically cleared for discharge today due to management of anemia.
[2024-06-14] MEDS: Acetaminophen 325 MG TABLET 650 MG PO (16:04)
[2024-06-15] VITALS (9 sets, daily range): BP systolic 112–130; BP diastolic 53–59; PULSE 72–88; RESP 14–20; TEMP 36.2–36.6; O2SAT 92–98
[2024-06-15] MEDS: Melatonin 3 MG TABLET 6 MG PO ×2 (01:49→21:15)
[2024-06-15] MEDS: HYDROcodone Bit/Acetam 5/325 TABLET 1 TAB PO ×4 (03:09→21:15)
[2024-06-15] MEDS: Pantoprazole Sodium 40 MG/10 ML VIAL IVPUSH ×2 (06:11→15:47)
[2024-06-15 07:05] LABS: Anion Gap 8 (12-20); Blood Urea Nitrogen 23 mg/dL (9-16); Calcium 8.6 mg/dL (8.4-10.2); Carbon Dioxide 31 mmol/L (22-29); Chloride 107 mmol/L (96-108); Estimated Glomerular Filt Rate > 60; Glucose Fasting 92 mg/dL (60-99); Potassium 3.9 mmol/L (3.3-5.1); Sodium 142 mmol/L (135-145)
[2024-06-15 07:06] LABS: Hematocrit 25.8 % (37.0-47.0); Hemoglobin 7.9 g/dl (12.0-16.0); Mean Corpuscular HGB Conc 30.6 g/dl (31.0-35.0); Mean Corpuscular Hemoglobin 28.2 pg (27.0-33.0); Mean Corpuscular Volume 92.1 fL (80.0-98.0); PLT CLUMP 1; Red Cell Distribution Width 17.9 % (11.0-16.0)
[2024-06-15 08:06] LABS: Platelet Count 65 X10*3/uL (160-400)
[2024-06-15] MEDS: Fluticasone Propionate 100 MCG BLST.W.DEV 1 PUFF INHALE ×2 (08:26→18:40)
--- NOTE | 2024-06-15 09:22 | P.PNIM_ITS ---
Subjective Subjective Date of Service: 06/15/24 Interval History: melena improved Physical Exam 2 Vital Signs: Vital Signs: Last Vital Signs Temp 97.5 F 06/15/24 08:00 Pulse 88 06/15/24 08:27 Resp 18 06/15/24 08:27 BP 122/59 L 06/15/24 08:00 Pulse Ox 93 06/15/24 08:00 O2 Del Method Room Air 06/15/24 08:00 O2 Flow Rate 2 06/15/24 00:00 BMI result Body Mass Index 30.6 Const: Other: Constitutional: Alert, in no distress, overweight. Mental Status: Oriented to person, place and time. Eyes: Pupils are equal, round and reactive to light. Ear, Nose and Throat: Oropharynx clear, mucous membranes moist. Ears and nose without eformities. Trachea midline. Respiratory: Clear to auscultation. No wheezing, rales or rhonchi. Cardiovascular: S1 S2 regular. 4/6 systolic murmur at LSB. 1+ leg edema Gastrointestinal: Abdomen soft, non-tender, non-distended. Normal bowel sounds.? Neurologic: Cranial nerves II-XII grossly intact. No focal neurological deficits. Moves all extremities spontaneously.? Skin: No rashes or lesions.? Musculoskeletal: No cyanosis or clubbing. Psychiatric: Normal mood and affect? Objective Data Active Medications Acetaminophen (Acetaminophen 325 Mg Tablet) 650 mg PO Q6H PRN PRN Reason: Pain, Mild (Pain Scale 1-3), fever or headache Last Admin: 06/14/24 16:04 Dose: 650 mg Documented By: NOLAN Hydrocodone Bitart/Acetaminophen (Hydrocodone Bit/Acetam 5/325 Tablet) 1 tab PO QID PRN PRN Reason: Pain, Severe (Pain Scale 7-10) Last Admin: 06/15/24 03:09 Dose: 1 tab Documented By: CHARLIE Comments: approved early Albuterol Sulfate (Albuterol Sulfate (0.083%) 2.5 Mg/3 Ml Vial.Neb) 2.5 mg INHALE Q6H PRN PRN Reason: Wheezing Albuterol Sulfate (Albuterol Sulfate 90 Mcg 8 Gm Inhaler) 2 puff INHALE Q4H PRN PRN Reason: Wheezing Alprazolam (Alprazolam 0.5 Mg Tablet) 0.5 mg PO TID PRN PRN Reason: Anxiety Last Admin: 06/14/24 20:52 Dose: 0.5 mg Documented By: CHARLIE Calcium Carbonate (Calcium Carbonate 750 Mg Tab.Chew) 750 mg PO Q4H PRN PRN Reason: Heartburn Cyanocobalamin (Cyanocobalamin (Vitamin B-12) 1,000 Mcg Tablet) 1,000 mcg PO DAILY [facility] Last Admin: 06/14/24 08:02 Dose: 1,000 mcg Documented By: NOLAN Fluticasone Propionate (Fluticasone Propionate Nasal 16 Gm [place]) 1 spray NOSTRIL-B DAILY PRN PRN Reason: Congestion Fluticasone Propionate (Fluticasone Propionate 100 Mcg Blst.W.Dev) 1 puff INHALE RBID [facility] Last Admin: 06/15/24 08:26 Dose: 1 puff Documented By: FAUSTINO Magnesium Hydroxide (Milk Of Magnesia 30 Ml Oral.Susp) 30 ml PO DAILY PRN PRN Reason: Constipation Melatonin (Melatonin 3 Mg Tablet) 6 mg PO BEDTIME PRN PRN Reason: Insomnia Last Admin: 06/15/24 01:49 Dose: 6 mg Documented By: CHARLIE Metoprolol Succinate (Metoprolol Succinate Er 25 Mg Tab.Er.24h) 25 mg PO DAILY [facility]; Protocol Last Admin: 06/14/24 08:01 Dose: 25 mg Documented By: NOLAN Ondansetron HCl (Ondansetron Hcl 4 Mg/2 Ml Vial) 4 mg IVPUSH Q6H PRN PRN Reason: Nausea Last Admin: 06/14/24 14:39 Dose: 4 mg Documented By: NOLAN Pantoprazole Sodium (Pantoprazole Sodium 40 Mg/10 Ml Vial) 40 mg IVPUSH BID@0630,1630 [facility] Last Admin: 06/15/24 06:11 Dose: 40 mg Documented By: CHARLIE Sodium Chloride (0.9 % Sodium Chloride Flush 3 Ml Syringe) 3 ml IVFLUSH QSHIFT [facility] Last Admin: 06/15/24 02:51 Dose: Not Given Documented By: CHARLIE Non-Admin Reason: Previously Administered Vitamin D (Cholecalciferol (Vitamin D3) 25 Mcg Tablet) 25 mcg PO DAILY [facility] Last Admin: 06/14/24 08:02 Dose: 25 mcg Documented By: NOLAN Labs 06/15/24 06:06 06/15/24 06:06 Labs: Laboratory Results - last 24 hr 06/15/24 06:06 MCV 92.1 MCH 28.2 MCHC 30.6 L RDW 17.9 H Plt Count 65 L MPV Not Reportable Absolute Nucleated RBC 0.000 Nucleated RBC % (auto) 0.0 Anion Gap 8 L Estim Creat Clear Calc 58.0 Estimated GFR > 60 Fasting Glucose 92 Calcium 8.6 D Assessment and Plan (1) Anemia: Status: Acute Plan 78F PMH copd, hfref, ITP, mod , chronic anemia, presented with weakness/anemia Acute on chronic iron deficiency anemia likely chronic gi losses Received 4 units PRBC and hemoglobin improved to 7.4, from 3.9, today 7.9 Monitor CBC protonix, (says she doesnt tolerate omeprazole) gi appreciated - tenetative egd/colonoscopy 06/17/24 history of Moderate aortic stenosis echo with mild chronic systolic chf ef 45% continue toprol ITP Platelets stable COPD Continue inhalers p.r.n. Mood disorder Continue bupropion, Xanax DVT prophylaxis-mechanical due to severe anemia Full code reason for continued hospitalization: plan for egd/colonoscopy Quality Stroke Does the patient have a stroke diagnosis?: No VTE Prior VTE?: No VTE Risk Level:: Medical - moderate - high VTE Device Contraindication: N/A - Device Ordered VTE Drug Contraindication: Treatment Not Tolerated
[2024-06-15] MEDS: Cyanocobalamin (Vitamin B-12) 1,000 MCG TABLET 1000 MCG PO (09:45)
[2024-06-15] MEDS: Metoprolol Succinate ER 25 MG TAB.ER.24H PO (09:45)
[2024-06-15] MEDS: 0.9 % Sodium Chloride Flush 3 ML SYRINGE IVFLUSH ×2 (09:47→21:16)
[2024-06-15] MEDS: Cholecalciferol (Vitamin D3) 25 MCG TABLET PO (09:47)
[2024-06-15] MEDS: ALPRAZolam 0.5 MG TABLET PO ×2 (12:37→21:15)
[2024-06-15] MEDS: bisacodyL 5 MG TABLET.DR 10 MG PO (15:00)
[2024-06-16] VITALS (8 sets, daily range): BP systolic 114–139; BP diastolic 55–64; PULSE 63–74; RESP 14–20; TEMP 36.1–37.2; O2SAT 93–99
[2024-06-16] MEDS: HYDROcodone Bit/Acetam 5/325 TABLET 1 TAB PO ×3 (02:22→20:02)
[2024-06-16] MEDS: Pantoprazole Sodium 40 MG/10 ML VIAL IVPUSH ×2 (06:20→16:17)
[2024-06-16 07:07] LABS: Hematocrit 26.2 % (37.0-47.0); Hemoglobin 7.9 g/dl (12.0-16.0); Mean Corpuscular HGB Conc 30.2 g/dl (31.0-35.0); Mean Corpuscular Hemoglobin 28.3 pg (27.0-33.0); Mean Corpuscular Volume 93.9 fL (80.0-98.0); PLT CLUMP 1; Red Blood Count 2.79 X10*6/uL (4.20-5.50); Red Cell Distribution Width 18.3 % (11.0-16.0)
[2024-06-16 07:08] LABS: Anion Gap 8 (12-20); Blood Urea Nitrogen 18 mg/dL (9-16); Calcium 8.5 mg/dL (8.4-10.2); Carbon Dioxide 29 mmol/L (22-29); Chloride 111 mmol/L (96-108); Creatinine Clr Calc Pharmacy 64.6; Estimated Glomerular Filt Rate > 60; Glucose Fasting 91 mg/dL (60-99); Potassium 4.3 mmol/L (3.3-5.1); Sodium 144 mmol/L (135-145)
[2024-06-16 07:09] LABS: Platelet Count 59 X10*3/uL (160-400)
[2024-06-16] MEDS: 0.9 % Sodium Chloride Flush 3 ML SYRINGE IVFLUSH ×3 (07:59→20:03)
[2024-06-16] MEDS: Metoprolol Succinate ER 25 MG TAB.ER.24H PO (07:59)
[2024-06-16] MEDS: Fluticasone Propionate 100 MCG BLST.W.DEV 1 PUFF INHALE ×2 (08:02→20:02)
[2024-06-16] MEDS: Cyanocobalamin (Vitamin B-12) 1,000 MCG TABLET 1000 MCG PO (08:02)
[2024-06-16] MEDS: Cholecalciferol (Vitamin D3) 25 MCG TABLET PO (08:02)
--- NOTE | 2024-06-16 10:11 | P.PNIM_ITS ---
Subjective Subjective Date of Service: 06/16/24 Interval History: no new complaints Physical Exam 2 Vital Signs: Vital Signs: Last Vital Signs Temp 98.9 F 06/16/24 08:00 Pulse 64 06/16/24 08:00 Resp 14 06/16/24 08:00 BP 114/55 L 06/16/24 08:00 Pulse Ox 93 06/16/24 08:00 O2 Del Method Room Air 06/16/24 08:00 O2 Flow Rate 2 06/15/24 19:26 BMI result Body Mass Index 30.6 Const: Other: Constitutional: Alert, in no distress, overweight. Mental Status: Oriented to person, place and time. Eyes: Pupils are equal, round and reactive to light. Ear, Nose and Throat: Oropharynx clear, mucous membranes moist. Ears and nose without eformities. Trachea midline. Respiratory: Clear to auscultation. No wheezing, rales or rhonchi. Cardiovascular: S1 S2 regular. 4/6 systolic murmur at LSB. 1+ leg edema Gastrointestinal: Abdomen soft, non-tender, non-distended. Normal bowel sounds.? Neurologic: Cranial nerves II-XII grossly intact. No focal neurological deficits. Moves all extremities spontaneously.? Skin: No rashes or lesions.? Musculoskeletal: No cyanosis or clubbing. Psychiatric: Normal mood and affect? Objective Data Active Medications Acetaminophen (Acetaminophen 325 Mg Tablet) 650 mg PO Q6H PRN PRN Reason: Pain, Mild (Pain Scale 1-3), fever or headache Last Admin: 06/14/24 16:04 Dose: 650 mg Documented By: NOLAN Hydrocodone Bitart/Acetaminophen (Hydrocodone Bit/Acetam 5/325 Tablet) 1 tab PO QID PRN PRN Reason: Pain, Severe (Pain Scale 7-10) Last Admin: 06/16/24 02:22 Dose: 1 tab Documented By: CHARLIE Comments: MD Colin approved early admin Albuterol Sulfate (Albuterol Sulfate (0.083%) 2.5 Mg/3 Ml Vial.Neb) 2.5 mg INHALE Q6H PRN PRN Reason: Wheezing Albuterol Sulfate (Albuterol Sulfate 90 Mcg 8 Gm Inhaler) 2 puff INHALE Q4H PRN PRN Reason: Wheezing Alprazolam (Alprazolam 0.5 Mg Tablet) 0.5 mg PO TID PRN PRN Reason: Anxiety Last Admin: 06/15/24 21:15 Dose: 0.5 mg Documented By: CHARLIE Bisacodyl (Bisacodyl 5 Mg Tablet.Dr) 10 mg PO ONCE ONE Stop: 06/16/24 12:01 Calcium Carbonate (Calcium Carbonate 750 Mg Tab.Chew) 750 mg PO Q4H PRN PRN Reason: Heartburn Cyanocobalamin (Cyanocobalamin (Vitamin B-12) 1,000 Mcg Tablet) 1,000 mcg PO DAILY [facility] Last Admin: 06/16/24 08:02 Dose: 1,000 mcg Documented By: SABRINA Fluticasone Propionate (Fluticasone Propionate Nasal 16 Gm [place]) 1 spray NOSTRIL-B DAILY PRN PRN Reason: Congestion Fluticasone Propionate (Fluticasone Propionate 100 Mcg Blst.W.Dev) 1 puff INHALE RBID [facility] Last Admin: 06/16/24 08:02 Dose: 1 puff Documented By: SABRINA Magnesium Hydroxide (Milk Of Magnesia 30 Ml Oral.Susp) 30 ml PO DAILY PRN PRN Reason: Constipation Melatonin (Melatonin 3 Mg Tablet) 6 mg PO BEDTIME PRN PRN Reason: Insomnia Last Admin: 06/15/24 21:15 Dose: 6 mg Documented By: CHARLIE Metoprolol Succinate (Metoprolol Succinate Er 25 Mg Tab.Er.24h) 25 mg PO DAILY [facility]; Protocol Last Admin: 06/16/24 07:59 Dose: 25 mg Documented By: SABRINA Ondansetron HCl (Ondansetron Hcl 4 Mg/2 Ml Vial) 4 mg IVPUSH Q6H PRN PRN Reason: Nausea Last Admin: 06/14/24 14:39 Dose: 4 mg Documented By: NOLAN Pantoprazole Sodium (Pantoprazole Sodium 40 Mg/10 Ml Vial) 40 mg IVPUSH BID@0630,1630 [facility] Last Admin: 06/16/24 06:20 Dose: 40 mg Documented By: CHARLIE Sodium Chloride (0.9 % Sodium Chloride Flush 3 Ml Syringe) 3 ml IVFLUSH QSHIFT [facility] Last Admin: 06/16/24 07:59 Dose: 3 ml Documented By: SABRINA Vitamin D (Cholecalciferol (Vitamin D3) 25 Mcg Tablet) 25 mcg PO DAILY [facility] Last Admin: 06/16/24 08:02 Dose: 25 mcg Documented By: SABRINA Labs 06/16/24 05:26 06/16/24 05:26 Labs: Laboratory Results - last 24 hr 06/16/24 05:26 MCV 93.9 MCH 28.3 MCHC 30.2 L RDW 18.3 H Plt Count 59 L MPV Not Reportable Absolute Nucleated RBC 0.000 Nucleated RBC % (auto) 0.0 Anion Gap 8 L Estim Creat Clear Calc 64.6 Estimated GFR > 60 Fasting Glucose 91 Calcium 8.5 Assessment and Plan (1) Anemia: Status: Acute Plan 78F PMH copd, hfref, ITP, mod , chronic anemia, presented with weakness/anemia Acute on chronic iron deficiency anemia likely chronic gi losses hgn was 3.9 on admission, Received 4 units PRBC and hemoglobin has remained stable 7 - 8 Monitor CBC protonix, (says she doesnt tolerate omeprazole) gi appreciated - plan for egd/colonoscopy 06/17/24 history of Moderate aortic stenosis echo with mild chronic systolic chf ef 45% continue toprol ITP Platelets stable around 60K COPD Continue inhalers p.r.n. Mood disorder Continue bupropion, Xanax DVT prophylaxis-mechanical due to severe anemia Full code reason for continued hospitalization: plan for egd/colonoscopy Quality Stroke Does the patient have a stroke diagnosis?: No VTE Prior VTE?: No VTE Risk Level:: Medical - moderate - high VTE Device Contraindication: N/A - Device Ordered VTE Drug Contraindication: Treatment Not Tolerated
[2024-06-16 11:03] LABS: OBS Int Ctl Valid YES; OBS1 POSITIVE (NEGATIVE)
[2024-06-16] MEDS: bisacodyL 5 MG TABLET.DR 10 MG PO (11:58)
[2024-06-16] MEDS: ondansetron HCL 4 MG/2 ML VIAL IVPUSH (13:47)
[2024-06-16] MEDS: Acetaminophen 325 MG TABLET 650 MG PO (15:00)
[2024-06-16] MEDS: PEG 3350/Na Sulf,Bicarb,Cl/KCL 4,000 ML SOLN.RECON 4000 ML PO (16:39)
[2024-06-16] MEDS: ALPRAZolam 0.5 MG TABLET PO (16:39)
[2024-06-17] VITALS (13 sets, daily range): BP systolic 123–159; BP diastolic 41–88; PULSE 72–100; RESP 15–20; TEMP 36–36.7; O2SAT 93–99
[2024-06-17] MEDS: HYDROcodone Bit/Acetam 5/325 TABLET 1 TAB PO ×4 (03:51→23:50)
[2024-06-17] MEDS: Pantoprazole Sodium 40 MG/10 ML VIAL IVPUSH ×2 (06:13→18:22)
[2024-06-17] MEDS: ondansetron HCL 4 MG/2 ML VIAL IVPUSH ×2 (06:43→18:21)
--- NOTE | 2024-06-17 07:46 | PC.NURSE ---
pt scheduled for EGD/colonoscopy today. As of shift 747 pt has only finished half of her PREP. Importance of finishing PREP prior to procedure has been explained to patient. Pt states that if she drinks more she will vomit.
[2024-06-17] MEDS: Fluticasone Propionate 100 MCG BLST.W.DEV 1 PUFF INHALE ×2 (08:19→20:42)
--- NOTE | 2024-06-17 08:56 | HO.PM.IMPN ---
Subjective Subjective Date of Service: 06/17/24 Interval History: Drank about half prep Physical Exam Vital Signs: Vital Signs: Last Vital Signs Temp 97.5 F 06/17/24 07:59 Pulse 75 06/17/24 08:20 Resp 18 06/17/24 08:20 BP 159/70 H 06/17/24 07:59 Pulse Ox 95 06/17/24 04:00 O2 Del Method Room Air 06/17/24 04:00 O2 Flow Rate 2 06/17/24 00:00 BMI result Body Mass Index 30.6 Const: Other: Constitutional: Alert, in no distress, overweight. Mental Status: Oriented to person, place and time. Eyes: Pupils are equal, round and reactive to light. Ear, Nose and Throat: Oropharynx clear, mucous membranes moist. Ears and nose without eformities. Trachea midline. Respiratory: Clear to auscultation. No wheezing, rales or rhonchi. Cardiovascular: S1 S2 regular. 4/6 systolic murmur at LSB. 1+ leg edema Gastrointestinal: Abdomen soft, non-tender, non-distended. Normal bowel sounds.? Neurologic: Cranial nerves II-XII grossly intact. No focal neurological deficits. Moves all extremities spontaneously.? Skin: No rashes or lesions.? Musculoskeletal: No cyanosis or clubbing. Psychiatric: Normal mood and affect? Objective Data Active Medications Acetaminophen (Acetaminophen 325 Mg Tablet) 650 mg PO Q6H PRN PRN Reason: Pain, Mild (Pain Scale 1-3), fever or headache Last Admin: 06/16/24 15:00 Dose: 650 mg Documented By: SABRINA Hydrocodone Bitart/Acetaminophen (Hydrocodone Bit/Acetam 5/325 Tablet) 1 tab PO QID PRN PRN Reason: Pain, Severe (Pain Scale 7-10) Last Admin: 06/17/24 03:51 Dose: 1 tab Documented By: DAVID Albuterol Sulfate (Albuterol Sulfate (0.083%) 2.5 Mg/3 Ml Vial.Neb) 2.5 mg INHALE Q6H PRN PRN Reason: Wheezing Albuterol Sulfate (Albuterol Sulfate 90 Mcg 8 Gm Inhaler) 2 puff INHALE Q4H PRN PRN Reason: Wheezing Alprazolam (Alprazolam 0.5 Mg Tablet) 0.5 mg PO TID PRN PRN Reason: Anxiety Last Admin: 06/16/24 16:39 Dose: 0.5 mg Documented By: SABRINA Calcium Carbonate (Calcium Carbonate 750 Mg Tab.Chew) 750 mg PO Q4H PRN PRN Reason: Heartburn Cyanocobalamin (Cyanocobalamin (Vitamin B-12) 1,000 Mcg Tablet) 1,000 mcg PO DAILY [facility] Last Admin: 06/16/24 08:02 Dose: 1,000 mcg Documented By: SABRINA Fluticasone Propionate (Fluticasone Propionate Nasal 16 Gm [place]) 1 spray NOSTRIL-B DAILY PRN PRN Reason: Congestion Fluticasone Propionate (Fluticasone Propionate 100 Mcg Blst.W.Dev) 1 puff INHALE RBID [facility] Last Admin: 06/17/24 08:19 Dose: 1 puff Documented By: PIOTR Magnesium Hydroxide (Milk Of Magnesia 30 Ml Oral.Susp) 30 ml PO DAILY PRN PRN Reason: Constipation Melatonin (Melatonin 3 Mg Tablet) 6 mg PO BEDTIME PRN PRN Reason: Insomnia Last Admin: 06/15/24 21:15 Dose: 6 mg Documented By: CHARLIE Metoprolol Succinate (Metoprolol Succinate Er 25 Mg Tab.Er.24h) 25 mg PO DAILY [facility]; Protocol Last Admin: 06/16/24 07:59 Dose: 25 mg Documented By: SABRINA Ondansetron HCl (Ondansetron Hcl 4 Mg/2 Ml Vial) 4 mg IVPUSH Q6H PRN PRN Reason: Nausea Last Admin: 06/17/24 06:43 Dose: 4 mg Documented By: DAVID Pantoprazole Sodium (Pantoprazole Sodium 40 Mg/10 Ml Vial) 40 mg IVPUSH BID@0830,1630 [facility] Last Admin: 06/17/24 06:13 Dose: 40 mg Documented By: DAVID Sodium Chloride (0.9 % Sodium Chloride Flush 3 Ml Syringe) 3 ml IVFLUSH QSHIFT [facility] Last Admin: 06/16/24 20:03 Dose: 3 ml Documented By: DAVID Vitamin D (Cholecalciferol (Vitamin D3) 25 Mcg Tablet) 25 mcg PO DAILY [facility] Last Admin: 06/16/24 08:02 Dose: 25 mcg Documented By: SABRINA Labs 06/16/24 05:26 06/16/24 05:26 Labs: Laboratory Results - last 24 hr 06/16/24 10:23 Stool Occult Blood POSITIVE Assessment and Plan (1) Anemia: Status: Acute Plan 78F PMH copd, hfref, ITP, mod , chronic anemia, presented with weakness/anemia Acute on chronic iron deficiency anemia likely chronic gi losses hgn was 3.9 on admission, Received 4 units PRBC and hemoglobin has remained stable 7 - 8 Monitor CBC protonix, (says she doesnt tolerate omeprazole) gi appreciated - plan for egd/colonoscopy today 06/17/24 history of Moderate aortic stenosis echo with mild chronic systolic chf ef 45% continue toprol ITP Platelets stable around 60K COPD Continue inhalers p.r.n. Mood disorder Continue bupropion, Xanax DVT prophylaxis-mechanical due to severe anemia Full code reason for continued hospitalization: plan for egd/colonoscopy Quality Stroke Does the patient have a stroke diagnosis?: No VTE Prior VTE?: No VTE Risk Level:: Medical - moderate - high VTE Device Contraindication: N/A - Device Ordered VTE Drug Contraindication: Treatment Not Tolerated
[2024-06-17] MEDS: Cyanocobalamin (Vitamin B-12) 1,000 MCG TABLET 1000 MCG PO (08:59)
[2024-06-17] MEDS: 0.9 % Sodium Chloride Flush 3 ML SYRINGE IVFLUSH ×4 (08:59→21:47)
[2024-06-17] MEDS: Metoprolol Succinate ER 25 MG TAB.ER.24H PO (08:59)
[2024-06-17] MEDS: Cholecalciferol (Vitamin D3) 25 MCG TABLET PO (08:59)
[2024-06-17] MEDS: ALPRAZolam 0.5 MG TABLET PO ×2 (13:12→23:50)
--- NOTE | 2024-06-17 13:44 | MHC.SHP ---
Pre-Procedural Eval Section A - 24 Hr Update-Section A only Date of Service: 06/17/24 The patient is an INPATIENT: Yes Changes since office visit: Yes New Medical Problems, Yes Changes in Medication and Yes Patient answered all questions; No Cold of Flu in the past 2 weeks The patient has been examined within 24 hours of the surgical procedure. The History & Physical has been completed within 30 days and I have reviewed it.: Yes Section B - Complete if H&P > 30 days Chief Complaint: symptomatic anemia, dyspnea Allergies: Allergies Allergy/AdvReac Type Severity Reaction Status Date / Time amoxicillin Allergy Unknown Hives Verified 06/12/24 15:07 Penicillins [PENICILLINS] Allergy Unknown Hives Verified 06/12/24 15:07 Sulfa (Sulfonamide Allergy Unknown Hives Verified 06/12/24 15:07 Antibiotics) [SULFA (SULFONAMIDE ANTIBIOTICS)] Plan I have reviewed the history and physical and performed a pertinent physical examination on my patient. No changes have occurred unless specified. Time Spent With Patient Time: Total time managing care of this patient today ____ minutes.
--- NOTE | 2024-06-17 14:33 | HO.ANESPROP2 ---
[facility] Active Problems Active Problems: All Active Problems Anemia (Acute) Varicose veins of right lower extremity with inflammation (Acute) Chronic ITP (idiopathic thrombocytopenia) (Acute) Dislocation of left radial head (Acute) Left radial head fracture (Acute) Fracture of proximal end of left ulna (Acute) Ischemic cardiomyopathy (Acute) Angina pectoris (Acute) Emphysema lung (Acute) Anemia (Chronic) Past Medical History Medical History Ascending aorta dilatation Atherosclerotic cardiovascular disease Non-rheumatic mitral regurgitation Non-rheumatic aortic regurgitation Non-rheumatic aortic stenosis Cardiomyopathy COPD exacerbation Heart failure with reduced ejection fraction Acute on chronic systolic (congestive) heart failure COPD (chronic obstructive pulmonary disease) Thrombocytopenia Osteoarthritis GERD (gastroesophageal reflux disease) Anxiety Asthma Family History Family History Sister Lung cancer Lupus Sister Lung cancer Maternal Aunt Lupus Family history of problems with anesthesia: No Surgical History Surgical History Hx of colonoscopy Hx of endoscopy Hx of oophorectomy Hx of hysterectomy Hx of total knee replacement History of Problems with Anesthesia: No Social History Social History Household Members: None Household Members Other:: lives alone Housing: Condominium Are you a primary urgent care technician to a significant other at home: No Do you presently have visiting nurse or other home services: No Unable to assess alcohol history related to: Unknown Alcohol intake: current Alcohol intake frequency: a few times a month Comment: patient refusing alarms Patient Tobacco Use Status: Former Tobacco user Second Hand Smoke Exposure: No Use of substances other than those prescribed or required for medical reasons: No Substance Use Type: Unknown Currently Displaying Signs/Symptoms of Drug Intoxication Withdrawal: No Have you been hit, kicked, punched, or otherwise hurt by someone within the past year? If so, by whom?: No Do you feel safe in your current relationship?: Yes Is there a partner from a previous relationship who is making you feel unsafe now?: No Are you made to feel afraid or neglected: No Are you DNR?: No Advance Directives: Yes Advance Directives on File: Yes Advance Directives Date on File: 03/20/23 Do you have a plan to hurt others: No Plan Recently lost weight without trying: No Nutrition Risks: No Nutritional Risk Patient : No : No Poor oral hygiene: No service: No Current occupational status: employed Meds Allergies Allergy/AdvReac Type Severity Reaction Status Date / Time amoxicillin Allergy Unknown Hives Verified 06/12/24 15:07 Penicillins [PENICILLINS] Allergy Unknown Hives Verified 06/12/24 15:07 Sulfa (Sulfonamide Allergy Unknown Hives Verified 06/12/24 15:07 Antibiotics) [SULFA (SULFONAMIDE ANTIBIOTICS)] Active Medications: Current Medications Acetaminophen (Acetaminophen 325 Mg Tablet) 650 mg PO Q6H PRN PRN Reason: Pain, Mild (Pain Scale 1-3), fever or headache Last Admin: 06/16/24 15:00 Dose: 650 mg Hydrocodone Bitart/Acetaminophen (Hydrocodone Bit/Acetam 5/325 Tablet) 1 tab PO QID PRN PRN Reason: Pain, Severe (Pain Scale 7-10) Last Admin: 06/17/24 08:59 Dose: 1 tab Albuterol Sulfate (Albuterol Sulfate (0.083%) 2.5 Mg/3 Ml Vial.Neb) 2.5 mg INHALE Q6H PRN PRN Reason: Wheezing Albuterol Sulfate (Albuterol Sulfate 90 Mcg 8 Gm Inhaler) 2 puff INHALE Q4H PRN PRN Reason: Wheezing Albuterol/Ipratropium (Albuterol/Iprat 2.5/0.5mg 3 Ml Ampul.Neb) 3 ml INHALE ONCE ONE Stop: 06/17/24 14:32 Alprazolam (Alprazolam 0.5 Mg Tablet) 0.5 mg PO TID PRN PRN Reason: Anxiety Last Admin: 06/17/24 13:12 Dose: 0.5 mg Calcium Carbonate (Calcium Carbonate 750 Mg Tab.Chew) 750 mg PO Q4H PRN PRN Reason: Heartburn Cyanocobalamin (Cyanocobalamin (Vitamin B-12) 1,000 Mcg Tablet) 1,000 mcg PO DAILY [facility] Last Admin: 06/17/24 08:59 Dose: 1,000 mcg Fluticasone Propionate (Fluticasone Propionate Nasal 16 Gm [place]) 1 spray NOSTRIL-B DAILY PRN PRN Reason: Congestion Fluticasone Propionate (Fluticasone Propionate 100 Mcg Blst.W.Dev) 1 puff INHALE RBID [facility] Last Admin: 06/17/24 08:19 Dose: 1 puff Magnesium Hydroxide (Milk Of Magnesia 30 Ml Oral.Susp) 30 ml PO DAILY PRN PRN Reason: Constipation Melatonin (Melatonin 3 Mg Tablet) 6 mg PO BEDTIME PRN PRN Reason: Insomnia Last Admin: 06/15/24 21:15 Dose: 6 mg Metoprolol Succinate (Metoprolol Succinate Er 25 Mg Tab.Er.24h) 25 mg PO DAILY [facility]; Protocol Last Admin: 06/17/24 08:59 Dose: 25 mg Ondansetron HCl (Ondansetron Hcl 4 Mg/2 Ml Vial) 4 mg IVPUSH Q6H PRN PRN Reason: Nausea Last Admin: 06/17/24 06:43 Dose: 4 mg Pantoprazole Sodium (Pantoprazole Sodium 40 Mg/10 Ml Vial) 40 mg IVPUSH BID@0630,1630 [facility] Last Admin: 06/17/24 06:13 Dose: 40 mg Sodium Chloride (0.9 % Sodium Chloride Flush 3 Ml Syringe) 3 ml IVFLUSH QSHIFT [facility] Last Admin: 06/17/24 08:59 Dose: 3 ml Vitamin D (Cholecalciferol (Vitamin D3) 25 Mcg Tablet) 25 mcg PO DAILY [facility] Last Admin: 06/17/24 08:59 Dose: 25 mcg Home Medications ?Medication ?Instructions ?Recorded ?Confirmed ?Last Taken ?Type alprazolam 0.5 mg tablet 1 tab PO TID PRN Anxiety 12/07/20 06/12/24 10/12/22 History cholecalciferol (vitamin D3) 25 1,000 unit PO DAILY 02/07/21 06/12/24 10/12/22 History mcg (1,000 unit) capsule (Vitamin D3) albuterol sulfate 2.5 mg/3 mL 2.5 mg inhalation Q6H PRN Wheezing 01/27/22 06/12/24 10/12/22 History (0.083 %) solution for nebulization cyanocobalamin (vitamin B-12) 1,000 mcg PO DAILY 01/27/22 06/12/24 10/12/22 History 1,000 mcg tablet fluticasone propionate 50 1 spray intranasal DAILY PRN 01/27/22 06/12/24 10/12/22 History mcg/actuation nasal Congestion spray,suspension vitamin A 2,400 mcg capsule 2,400 mcg PO DAILY 01/27/22 06/12/24 10/12/22 History metoprolol succinate 25 mg 25 mg PO DAILY 05/17/22 06/12/24 10/12/22 History tablet,extended release 24 hr (Toprol XL) biotin 10,000 mcg chewable tablet 10,000 mcg PO DAILY 12/07/22 06/12/24 Unknown History (Hair, Skin and Nails (biotin)) ondansetron HCl 4 mg tablet 1 tab PO Q8H PRN Nausea And 12/07/22 06/12/24 Unknown History Vomiting albuterol sulfate 90 mcg/actuation 2 puff inhalation Q4H PRN Wheezing 06/12/24 06/12/24 Unknown History aerosol inhaler fluticasone propionate 110 1 puff inhalation BID 06/12/24 06/12/24 06/12/24 History mcg/actuation HFA aerosol inhaler hydrocodone 10 mg-acetaminophen 1 tab PO QID PRN Pain, Moderate 06/12/24 06/12/24 Unknown History 325 mg tablet Exam Height,Weight and Vital Signs: Height 5 ft 3 in Weight 78.471 kg Last Vital Signs Temp 98.1 F 06/17/24 14:18 Pulse 72 06/17/24 14:18 Resp 18 06/17/24 14:18 BP 130/63 06/17/24 14:18 Pulse Ox 96 06/17/24 14:18 O2 Del Method Room Air 06/17/24 14:18 O2 Flow Rate 2 06/17/24 00:00 Pertinent Lab Results Pertinent Lab Results: Laboratory Tests 06/12/24 06/12/24 06/13/24 15:40 15:45 04:44 WBC 8.3 7.4 RBC 1.58 L D 2.05 L D Hgb 3.9 L* D 5.6 L* D Hct 13.4 L* D 17.8 L* D MCV 84.8 86.8 MCH 24.7 L 27.3 MCHC 29.1 L 31.5 RDW 21.4 H 18.8 H Plt Count 64 L 63 L MPV Not Reportable Not Reportable Immature Gran % (Auto) 0.4 Neut % (Auto) 85.2 H Lymph % (Auto) 6.6 L [place] % (Auto) 7.2 Eos % (Auto) 0.1 Baso % (Auto) 0.5 Lymph # (Auto) 0.6 L [place] # (Auto) 0.6 Eos # (Auto) 0.0 Baso # (Auto) 0.0 Abs Immat Gran (auto) 0.03 Absolute Neuts (auto) 7.1 Absolute Nucleated RBC 0.000 0.000 Nucleated RBC % (auto) 0.0 0.0 Smear Tech's Comments VERIFIED Absolute Retic Percent Retic Immature Retic Fraction Retic Hgb Equivalent PT 12.9 H INR 1.1 Sodium 146 H 143 Potassium 3.9 3.6 Chloride 111 H 108 Carbon Dioxide 26 28 Anion Gap 13 11 L BUN 31 H 28 H Creatinine 0.73 0.80 Estim Creat Clear Calc 62.0 56.5 Estimated GFR > 60 > 60 Random Glucose 119 H 107 Fasting Glucose Haptoglobin Calcium 8.2 L D 8.2 L Magnesium 1.9 Ferritin 12 Total Bilirubin 0.2 Direct Bilirubin < 0.2 AST 16 ALT 9 Alkaline Phosphatase 33 L Lactate Dehydrogenase 206 Troponin I High Sens 5.1 Total Protein 5.0 L Albumin 3.4 L Stool Occult Blood Influenza Type A (PCR) NEGATIVE Influenza Type B (PCR) NEGATIVE RSV RNA Qual (PCR) NEGATIVE SARS-CoV-2 RNA (RT-PCR) NEGATIVE Blood Type O Positive Antibody Screen NEGATIVE Crossmatch See Detail 06/13/24 06/14/24 06/15/24 09:51 06:01 06:06 WBC 7.2 7.0 RBC 2.61 L D 2.80 L Hgb 7.4 L D 7.9 L Hct 23.2 L D 25.8 L MCV 88.9 92.1 MCH 28.4 28.2 MCHC 31.9 30.6 L RDW 17.5 H 17.9 H Plt Count 60 L 65 L MPV Not Reportable Not Reportable Immature Gran % (Auto) Neut % (Auto) Lymph % (Auto) [place] % (Auto) Eos % (Auto) Baso % (Auto) Lymph # (Auto) [place] # (Auto) Eos # (Auto) Baso # (Auto) Abs Immat Gran (auto) Absolute Neuts (auto) Absolute Nucleated RBC 0.000 0.000 Nucleated RBC % (auto) 0.0 0.0 Smear Tech's Comments Absolute Retic 0.035 Percent Retic 1.6 Immature Retic Fraction 13.5 Retic Hgb Equivalent 20.0 L PT INR Sodium 142 142 Potassium 3.5 3.9 Chloride 106 107 Carbon Dioxide 29 31 H Anion Gap 11 L 8 L BUN 26 H 23 H Creatinine 0.79 0.78 Estim Creat Clear Calc 57.2 58.0 Estimated GFR > 60 > 60 Random Glucose Fasting Glucose 109 H 92 Haptoglobin 81 Calcium 8.1 L 8.6 D Magnesium Ferritin Total Bilirubin 0.7 Direct Bilirubin 0.3 AST 15 ALT 11 Alkaline Phosphatase 35 L Lactate Dehydrogenase Troponin I High Sens Total Protein 4.8 L Albumin 3.3 L Stool Occult Blood Influenza Type A (PCR) Influenza Type B (PCR) RSV RNA Qual (PCR) SARS-CoV-2 RNA (RT-PCR) Blood Type Antibody Screen Crossmatch 06/16/24 06/16/24 05:26 10:23 WBC 6.0 RBC 2.79 L Hgb 7.9 L Hct 26.2 L MCV 93.9 MCH 28.3 MCHC 30.2 L RDW 18.3 H Plt Count 59 L MPV Not Reportable Immature Gran % (Auto) Neut % (Auto) Lymph % (Auto) [place] % (Auto) Eos % (Auto) Baso % (Auto) Lymph # (Auto) [place] # (Auto) Eos # (Auto) Baso # (Auto) Abs Immat Gran (auto) Absolute Neuts (auto) Absolute Nucleated RBC 0.000 Nucleated RBC % (auto) 0.0 Smear Tech's Comments Absolute Retic Percent Retic Immature Retic Fraction Retic Hgb Equivalent PT INR Sodium 144 Potassium 4.3 Chloride 111 H Carbon Dioxide 29 Anion Gap 8 L BUN 18 H Creatinine 0.70 Estim Creat Clear Calc 64.6 Estimated GFR > 60 Random Glucose Fasting Glucose 91 Haptoglobin Calcium 8.5 Magnesium Ferritin Total Bilirubin Direct Bilirubin AST ALT Alkaline Phosphatase Lactate Dehydrogenase Troponin I High Sens Total Protein Albumin Stool Occult Blood POSITIVE Influenza Type A (PCR) Influenza Type B (PCR) RSV RNA Qual (PCR) SARS-CoV-2 RNA (RT-PCR) Blood Type Antibody Screen Crossmatch Airway Mallampati Class: II TM Dist: >3cm Denture: Upper and Lower Assessment and Plan Assessment Anesthesia Assessment: Anesthesia Plan Discussed and Chart Reviewed Final Anesthetic Review Family History of Problems with Anesthesia: No History of Problems with Anesthesia: No NPO: Yes ASA Class: III and Emergency Final Preanesthetic Review: No Changes in Pt Med Stat, Meds/Allgs Chart Reviewed, Consent Obtained/Reviewed and Anes Risks/Benef Reviewed Patient Risk: Intermediate Procedure Risk: Low Anesthetic Plan Anesthetic Plan: TIVA Disposition: Standard PACU
[2024-06-17] MEDS: Albuterol/Iprat 2.5/0.5MG 3 ML AMPUL.NEB INHALE (14:34)
--- NOTE | 2024-06-17 14:35 | HO.OPN-COLON ---
Colonoscopy Operative Note Operative Note Date of Service: 06/17/24 Narrative: FLEXIBLE TRANSORAL UPPER GASTROINTESTINAL ENDOSCOPY WITH BIOPSIES AND APC OF DUODENAL AVM AND COLONOSCOPY TILL CECUM WITH SNARE POLYPECTOMY AND APC OF ASCENDING COLON AVM Pre-op diagnosis: Acute on chronic anemia Post-op diagnosis: Hiatal hernia, Gastritis, duodenal polyp and duodenal AVM Colon Polyps, AVM ascending colon, Diverticulosis, hemorrhoids Endoscopist:? Olga Castellano MD Anesthesia:?MAC UPPER ENDOSCOPY Consent: Indications for the procedure and potential complications of bleeding, perforation, reaction to medications and missed diagnosis were discussed with the patient and informed consent was obtained. Instrument: Olympus GIF H 190 mid size upper endoscope Monitoring: Vital signs and clinical assessment, continuous EKG monitoring, Pulse oximetry, Carbon Dioxide monitoring and blood pressure monitoring were done throughout the procedure. Procedure: The patient was placed in the left lateral decubitis position and pre-procedure medications were administered and a bite block was placed. The endoscope was inserted into the mouth and advanced under direct vision to the third part of duodenum. A careful inspection was made as the upper endoscope was withdrawn including a retroflexed examination of the proximal stomach; Findings and interventions are described below. Findings: Larynx: Normal Esophagus: Normal Esophagus:?GE junction at 35 cms, hiatal hernia 35 to 38 cms. No esophagitis or Orozco's? Stomach:?Moderate gastric erythema with a few healing non-bleeding antral erosions. Biopsies were obtained. Grade 3 flap valve on retroflexed examination of the cardia. Duodenum:?Duoentitis in the apex of the bulb with a 1 cms edematous fold/benign appearing nodule - biopsied (unchanged from past EGD) A 4-5 mm AVM in the descending duodenum - ablated with APC - biopsies were obtained to check for celiac sprue Intervention:?Biopsies as noted above COLONOSCOPY PROCEDURE NOTE Consent:?Indications for the procedure and potential complications of bleeding, perforation, reaction to medications and missed diagnosis were discussed with the patient and informed consent was obtained. Instrument:?Olympus PCF H 190 L variable stiffness pediatric colonoscope Monitoring:?Vital signs and clinical assessment, intermittent blood pressure monitoring, continuous EKG monitoring, Pulse oximetry and Carbon Dioxide monitoring were done throughout the procedure. Colon withdrawl time was 35 minutes. Procedure:?The patient was placed in the left lateral decubitis position and pre-procedure medications were administered. After a digital rectal examination of the ano-rectum, the video colonoscope was inserted into the rectum and advanced through the colon to the cecum. The colonoscope was slowly withdrawn in a retrograde panoramic fashion and the colon mucosa was carefully examined including a retroflexed view of the rectum. Findings and interventions are described below. Procedure Difficulty:?: Without difficulty Findings: Terminal Ileum: Distal 5 cms was examined and appeared normal Cecum: Normal Ascending Colon:??A 1 cms non- bleeding AVM in the proximal ascending colon - ablated with APC. A 10 mm sessile polyp in the proximal AC - removed with a hot snare. Transverse Colon:??Two 8 to 10 mm sessile polyps - removed with a hot snare Descending Colon:? Moderate diverticulosis Sigmoid Colon:??A 7-8 mm sessile polyp - removed with a hot snare and polyp was not retrieved Moderate diverticulosis Rectum:??A few 5 to 8 mm diminutive appearing polyps - (hyperplastic on biopsies obtained during past colonoscopy). Ano-rectum:??Moderate internal hemorrhoids Colon preparation: Good after copious irrigation. [place] Bowel Preparation Scale Right colon; 2 Transverse colon: 2 Left colon; 2 (0 = Unprepared colon segment with mucosa not seen due to solid stool that cannot be cleared. 1 = Portion of mucosa of the colon segment seen, but other areas of the colon segment not well seen due to staining, residual stool and/or opaque liquid. 2 = Minor amount of residual staining, small fragments of stool and/or opaque liquid, but mucosa of colon segment seen well. 3 = Entire mucosa of colon segment seen well with no residual staining, small fragments of stool or opaque liquid) Impression and Post Procedure Diagnosis: Endoscopy Findings: STOMACH: Moderate gastric erythema with a few healing non-bleeding antral erosions DUODENUM: Duodenitis in the apex of the bulb and a 1 cms edematous fold/benign appearing nodule - biopsied (unchanged from past EGD) A 4-5 mm AVM in the descending duodenum - ablated with APC Colonoscopy Findings: Four small to medium sized polyps were removed A 1 cms non- bleeding AVM in the proximal ascending colon - ablated with APC. Moderate diverticulosis seen in the left colon Moderate hemorrhoids on retroflexed exam. Unable to explain recurrent anemia on the basis of above findings - rule out hematological etiology/?Das syndrome Plan: Patient can be discharged home in the am. Given patient's age and multiple comorbidities, repeat Colonoscopy is not recommended. Above findings were reviewed with the patient. BIOPSIES SHOWED: A. Duodenum, nodule: Chronic inactive duodenitis. B. Stomach, antrum, biopsy: Reactive gastropathy with background mild chronic inactive inflammation; no Helicobacter organisms seen. C. Colon, ascending, polypectomy: Fragments of tubular adenoma; negative for high-grade dysplasia or carcinoma. D. Colon, transverse, polypectomies: - Tubular adenoma; negative for high-grade dysplasia or carcinoma. - Hyperplastic mucosal polyp.
--- NOTE | 2024-06-17 16:03 | MHC.CM.PN ---
EMR reviewed and per MD rounds, pt is not medically cleared for discharge due to pt having a colonoscopy today.
[2024-06-18 03:10] VITALS: BP 121/57; PULSE 80; RESP 18; TEMP 36.8; O2SAT 95
[2024-06-18] MEDS: Acetaminophen 325 MG TABLET 650 MG PO (05:34)
[2024-06-18] MEDS: Pantoprazole Sodium 40 MG/10 ML VIAL IVPUSH (05:35)
[2024-06-18 06:56] LABS: Hematocrit 24.8 % (37.0-47.0); Hemoglobin 7.6 g/dl (12.0-16.0); Mean Corpuscular HGB Conc 30.6 g/dl (31.0-35.0); Mean Corpuscular Hemoglobin 28.6 pg (27.0-33.0); Mean Corpuscular Volume 93.2 fL (80.0-98.0); PLT CLUMP 1; Red Blood Count 2.66 X10*6/uL (4.20-5.50); Red Cell Distribution Width 18.2 % (11.0-16.0)
[2024-06-18 07:05] LABS: Anion Gap 10 (12-20); Blood Urea Nitrogen 14 mg/dL (9-16); Calcium 8.3 mg/dL (8.4-10.2); Carbon Dioxide 29 mmol/L (22-29); Chloride 109 mmol/L (96-108); Estimated Glomerular Filt Rate > 60; Glucose Fasting 119 mg/dL (60-99); Potassium 3.7 mmol/L (3.3-5.1); Sodium 144 mmol/L (135-145)
[2024-06-18 07:15] LABS: Platelet Count 57 X10*3/uL (160-400); White Blood Count 6.9 X10*3/uL (4.8-10.8)
[2024-06-18 07:54] VITALS: BP 138/61; PULSE 71; RESP 18; TEMP 36.7; O2SAT 93
[2024-06-18] MEDS: Metoprolol Succinate ER 25 MG TAB.ER.24H PO (08:11)
[2024-06-18] MEDS: Cyanocobalamin (Vitamin B-12) 1,000 MCG TABLET 1000 MCG PO (08:22)
[2024-06-18] MEDS: HYDROcodone Bit/Acetam 5/325 TABLET 1 TAB PO (08:22)
[2024-06-18] MEDS: Cholecalciferol (Vitamin D3) 25 MCG TABLET PO (08:22)
[2024-06-18] MEDS: ALPRAZolam 0.5 MG TABLET PO (08:22)
[2024-06-18] MEDS: Fluticasone Propionate 100 MCG BLST.W.DEV 1 PUFF INHALE (08:45)
--- NOTE | 2024-06-18 08:55 | PM.DS ---
DS: Providers Provider Date of Service: 06/18/24 Date of admission: 06/12/24 18:27 Date of discharge: 06/18/24 Primary care physician: Joseph Magana MD Consults: 06/12/24 18:32 Consult to Hematology / Oncology Routine Consulting Provider: [facility] [place]Hematology Reason for consultation: ANEMIA, THROMBOCYTOPENIA 06/14/24 09:05 Consult to Gastroenterology Routine Consulting Provider: Olga Castellano Reason for consultation: iron deficienyc anemia, melena DS: Diagnosis Discharge Diagnosis (1) Anemia: Status: Acute DS: Summary Hospital Course Hospital Course: from initial hpi: 79 year ofld female with with a PMH significant for?chronic ITP, ischemic cardiomyopathy, anxiety, GERD, chronic HFrEF, COPD/chronic bronchitis/asthm, chronic anemia with negative work up in the past and get frequent transfusion, in her words nearly 18 units the past year.. She presents today with increasing shortness of breath that she atributes to anemia. She denies melana or hematochezia--from experience she knew her symptoms were related to anemia. Her hemoglobin is 3.9, Plat 64, tachycardic, and declined rectal exam. She's been ttransfuse. hospital course: Patient was admitted for acute on chronic iron deficiency anemia likely due to chronic GI losses. Hemoglobin was 3.9 admission received total 4 units PRBC and has since remained stable between 7 and 8. Denies any active gross bleeding. Patient underwent colonoscopy, had 4 polypectomies and AVM which was cauterized, also noted to have moderate diverticulosis, no obvious culprit lesion was found now. On discharge will continue with Protonix p.o. and should follow up with Hematology for hemoglobin monitoring and iron infusions. She should follow up with Gastroenterology for biopsy results. Patient has a history of moderate aortic stenosis echocardiogram was done and showed only mild aortic stenosis. For chronic systolic CHF with an EF of 45% she remained stable and was continued on Toprol. For history of ITP, platelets remained stable around 60,000. For COPD she was continued on inhalers p.r.n.. For mood disorder was continued on bupropion and Xanax. Patient is feeling much better will be discharged home. Time Attestation Discharge Coordination Time (in mins): 33 Quality: Safe Use of Opioids Does Pt have an Active Cancer Diagnosis on the Problem List?: No Quality: Stroke Does the patient have a stroke diagnosis?: No Physical Exam Vital Signs: Vital Signs: Last Vital Signs Temp 98.1 F 06/18/24 07:54 Pulse 71 06/18/24 07:54 Resp 18 06/18/24 07:54 BP 138/61 06/18/24 07:54 Pulse Ox 93 06/18/24 07:54 O2 Del Method Room Air 06/18/24 07:54 O2 Flow Rate 2 06/17/24 00:00 BMI result Body Mass Index 30.6 Const: Other: Constitutional: Alert, in no distress, overweight. Mental Status: Oriented to person, place and time. Eyes: Pupils are equal, round and reactive to light. Ear, Nose and Throat: Oropharynx clear, mucous membranes moist. Ears and nose without eformities. Trachea midline. Respiratory: Clear to auscultation. No wheezing, rales or rhonchi. Cardiovascular: S1 S2 regular. 4/6 systolic murmur at LSB. 1+ leg edema Gastrointestinal: Abdomen soft, non-tender, non-distended. Normal bowel sounds.? Neurologic: Cranial nerves II-XII grossly intact. No focal neurological deficits. Moves all extremities spontaneously.? Skin: No rashes or lesions.? Musculoskeletal: No cyanosis or clubbing. Psychiatric: Normal mood and affect? DS: Data Data Completed and Pending Completed studies during hospitalization [Text1]: Procedures Destruction of Cecum, Via Natural or Artificial Opening Endoscopic (01/27/22) Excision of Duodenum, Via Natural or Artificial Opening Endoscopic, Diagnostic (01/27/22) Excision of Rectum, Via Natural or Artificial Opening Endoscopic, Diagnostic (01/27/22) Excision of Sigmoid Colon, Via Natural or Artificial Opening Endoscopic, Diagnostic (01/27/22) Excision of Stomach, Pylorus, Via Natural or Artificial Opening Endoscopic, Diagnostic (01/27/22) Transfusion of Nonautologous Red Blood Cells into Peripheral Vein, Percutaneous Approach (01/27/22) Pending studies at discharge: Pending at discharge 06/17/24 15:02 Surgical [PTH] Routine Labs on day of discharge: Laboratory Results - last 24 hr 06/18/24 05:55 WBC 6.9 RBC 2.66 L Hgb 7.6 L Hct 24.8 L MCV 93.2 MCH 28.6 MCHC 30.6 L RDW 18.2 H Plt Count 57 L MPV Not Reportable Absolute Nucleated RBC 0.000 Nucleated RBC % (auto) 0.0 Sodium 144 Potassium 3.7 Chloride 109 H Carbon Dioxide 29 Anion Gap 10 L BUN 14 Creatinine 0.78 Estim Creat Clear Calc 58.0 Estimated GFR > 60 Fasting Glucose 119 H Calcium 8.3 L Discharge Plan Discharge Anticipated Discharge Date/Time: 06/18/24 08:52 Patient Disposition: Home, Self-Care Discharge Diagnosis: iron deficiency anemia Referrals: Kay Vega MD [Physician] - 1 Week Olga Castellano MD [Physician] - 1 Week Joseph Magana MD [Primary Care Provider] - 1 Week Discharge Medications: New pantoprazole [Protonix] [address] for susp in packet 40 mg PO DAILY Qty: 90 0RF Continued alprazolam 0.5 mg tablet 1 tab PO TID PRN (Reason: Anxiety) cholecalciferol (vitamin D3) [Vitamin D3] 25 mcg (1,000 unit) Capsule 1,000 unit PO DAILY ondansetron HCl 4 mg tablet 1 tab PO Q8H PRN (Reason: Nausea And Vomiting) Hair, Skin and Nails (biotin) 10,000 mcg Tablet,Chewable 10,000 mcg PO DAILY albuterol sulfate 2.5 mg /3 mL (0.083 %) solution for nebulization 2.5 mg inhalation Q6H PRN (Reason: Wheezing) fluticasone propionate 50 mcg/actuation spray,suspension 1 spray intranasal DAILY PRN (Reason: Congestion) vitamin A 2,400 mcg Capsule 2,400 mcg PO DAILY cyanocobalamin (vitamin B-12) 1,000 mcg Tablet 1,000 mcg PO DAILY hydrocodone-acetaminophen 10-325 mg tablet 1 tab PO QID PRN (Reason: Pain, Moderate) albuterol sulfate 90 mcg/actuation HFA aerosol inhaler 2 puff inhalation Q4H PRN (Reason: Wheezing) fluticasone propionate 110 mcg/actuation HFA aerosol inhaler 1 puff inhalation BID metoprolol succinate [Toprol XL] 25 mg tablet extended release 24 hr 25 mg PO DAILY Discharge Orders: Discharge Order (Routine); Ordered 06/18/24 Ordered By: Adeel Chin Diet: Advance to usual diet Activity on Discharge: As tolerated Stand Alone Forms: Patient Portal Discharge page Print Language: Danish Care Plan Goals: manage anemia Health Concerns: anemia Plan of Treatment: protonix, follow up with gi and hematology, monitor hgb levels and likely will need occasional iron infusions Assessment: see above
--- NOTE | 2024-06-18 10:21 | HO.POSTANES ---
Post Anesthesia Evaluation Post Anesthesia Evaluation Date of Service: 06/17/24 Vital Signs: Vital Signs Temp Pulse Resp BP Pulse Ox O2 Del Method 06/18/24 07:54 98.1 F 71 18 138/61 93 Room Air 06/18/24 03:10 98.2 F 80 18 121/57 L 95 Room Air 06/17/24 23:41 98.1 F 91 18 123/67 95 Room Air Anesthesia: Monitored Mental Status: Awake Pain Control: Satisfactory Nausea/Vomiting: None Hydration: Adequate Anesthesia-Related Issues: No Anes. Related Issues
--- NOTE | 2024-06-18 10:23 | MHC.CM.PN ---
Second IMM given 06/18. Pt is medically cleared for discharge home self-care today, pts friend will transport her home.
== END 2024-06-18 11:30 | disposition home or self-care (01) | DRG 378 ==
LOC: HO.ED 17:25 → HO.EDOVER 18:31 → HO.IMC 06-13 07:33
PROVIDERS: Internal Medicine; Internal Medicine Gastroenterology; Physician Assistant Medical; Admitting Provider Internal Medicine; Emergency Provider Student in an Organized Health Care Education/Training Program; PCP Internal Medicine Geriatric Medicine; Visit Provider Internal Medicine
PROC: 0DB98ZX Excision of Duodenum, Via Natural or Artificial Opening Endoscopic, Diagnostic (ICD-10-PCS; principal; 2024-06-17 14:10)
DX: K31.811 Angiodysplasia of stomach and duodenum with bleeding (principal); D69.3 Immune thrombocytopenic purpura; I50.22 Chronic systolic (congestive) heart failure; E87.0 Hyperosmolality and hypernatremia; D50.0 Iron deficiency anemia secondary to blood loss (chronic); K57.31 Diverticulosis of large intestine without perforation or abscess with bleeding; K55.21 Angiodysplasia of colon with hemorrhage; K46.9 Unspecified abdominal hernia without obstruction or gangrene; K64.8 Other hemorrhoids; K63.5 Polyp of colon; F39 Unspecified mood [affective] disorder; I35.8 Other nonrheumatic aortic valve disorders; J44.9 Chronic obstructive pulmonary disease, unspecified; G89.29 Other chronic pain; Z20.822 Contact with and (suspected) exposure to COVID-19; Z79.899 Other long term (current) drug therapy
CPT/HCPCS: 0241U; 36415; 71045; 73502; 80048; 80076; 82272; 82728; 83010; 83615; 83735; 84484; 85025; 85027; 85045; 85610; 86850; 86900; 86901; 86923; 88305; 88313; 88342; 93005; 93306; 94640; 94664; 99285; J1940; J2405; J2470; J2704; P9016; Q9957

== ENCOUNTER 2024-06-12 18:27 | Outpatient (BNV) | payer OTHER, SELFPAY | END 2024-06-13 07:00 | PROVIDERS: Admitting Provider Internal Medicine; Emergency Provider Student in an Organized Health Care Education/Training Program; PCP Internal Medicine Geriatric Medicine; Visit Provider Internal Medicine | DX: I35.2 Nonrheumatic aortic (valve) stenosis with insufficiency (principal); I36.1 Nonrheumatic tricuspid (valve) insufficiency | CPT/HCPCS: 93306 ==

== ENCOUNTER → 2024-06-12 18:27 | Outpatient (BNV) | payer OTHER, SELFPAY | PROVIDERS: Admitting Provider Internal Medicine; Emergency Provider Student in an Organized Health Care Education/Training Program; PCP Internal Medicine Geriatric Medicine; Visit Provider Internal Medicine | DX: D64.9 Anemia, unspecified (principal) | CPT/HCPCS: 99223; 99232; 99233; 99239 ==

== ENCOUNTER → 2024-06-12 18:27 | Outpatient (BNV) | payer OTHER, SELFPAY | PROVIDERS: Admitting Provider Internal Medicine; Emergency Provider Student in an Organized Health Care Education/Training Program; PCP Internal Medicine Geriatric Medicine; Visit Provider Internal Medicine | DX: D64.9 Anemia, unspecified (principal); D69.6 Thrombocytopenia, unspecified | CPT/HCPCS: 99222 ==

== ENCOUNTER → 2024-06-12 18:27 | Outpatient (BNV) | payer OTHER, SELFPAY | PROVIDERS: Admitting Provider Internal Medicine; Emergency Provider Student in an Organized Health Care Education/Training Program; PCP Internal Medicine Geriatric Medicine; Visit Provider Internal Medicine Gastroenterology | DX: D50.9 Iron deficiency anemia, unspecified (principal); K92.1 Melena | CPT/HCPCS: 43239; 43270; 45385; 45388; 99222 ==

== ENCOUNTER 2024-07-03 13:38 | Outpatient (REF) | payer OTHER, SELFPAY ==
[2024-07-03 16:37] LABS: Basophils Percent Auto 0.4 % (0-2); SCAN SMEAR FLAG 1
[2024-07-03 16:39] LABS: Eosinophils Absolute Auto 0.1 X10*3/uL (0.0-0.4); Eosinophils Percent Auto 0.8 % (0-4); Imm Gran Abs Auto 0.04 X10*3/uL (0.00-0.03); Imm Gran Pct Auto 0.5 % (0.0-0.4); Lymphocytes Absolute Auto 0.7 X10*3/uL (1.2-4.9); Lymphocytes Percent Auto 9.3 % (20-40); MANUAL DIFF FLAG SCAN; Mean Corpuscular HGB Conc 29.4 g/dl (31.0-35.0); Mean Corpuscular Hemoglobin 26.5 pg (27.0-33.0); Mean Corpuscular Volume 90.3 fL (80.0-98.0); Monocytes Absolute Auto 0.5 X10*3/uL (0.1-1.2); Red Blood Count 2.26 X10*6/uL (4.20-5.50); Red Cell Distribution Width 17.9 % (11.0-16.0); White Blood Count 7.3 X10*3/uL (4.8-10.8)
[2024-07-03 18:39] LABS: PLT ABN DIST 1; Platelet Count 60 X10*3/uL (160-400)
[2024-07-03 18:40] LABS: Hematocrit 20.4 % (37.0-47.0)
[2024-07-03 19:21] LABS: SLIDE REVIEW VERIFIED
== END 2024-07-03 13:39 | disposition home or self-care (01) ==
LOC: HO.HMGCLDS 13:38
PROVIDERS: PCP Internal Medicine Geriatric Medicine; Visit Provider Internal Medicine Geriatric Medicine
DX: D50.9 Iron deficiency anemia, unspecified (principal)
CPT/HCPCS: 36415; 85025

== ENCOUNTER 2024-07-23 13:57 | Outpatient (REF) | payer OTHER, SELFPAY ==
[2024-07-23 16:19] LABS: SCAN SMEAR FLAG 1
[2024-07-23 16:21] LABS: Basophils Absolute Auto 0.1 X10*3/uL (0.0-0.2); Basophils Percent Auto 0.6 % (0-2); Eosinophils Absolute Auto 0.2 X10*3/uL (0.0-0.4); Eosinophils Percent Auto 1.8 % (0-4); Hematocrit 32.9 % (37.0-47.0); Hemoglobin 9.8 g/dl (12.0-16.0); Imm Gran Abs Auto 0.03 X10*3/uL (0.00-0.03); Imm Gran Pct Auto 0.3 % (0.0-0.4); Lymphocytes Absolute Auto 1.2 X10*3/uL (1.2-4.9); MANUAL DIFF FLAG SCAN; Mean Corpuscular HGB Conc 29.8 g/dl (31.0-35.0); Monocytes Absolute Auto 0.9 X10*3/uL (0.1-1.2); Monocytes Percent Auto 9.2 % (2-11); Neutrophils Absolute Auto 7.6 x10*3/uL (2.0-8.3); Neutrophils Percent Auto 76.1 % (45-73); PLT CLUMP 1; Red Cell Distribution Width 19.3 % (11.0-16.0)
[2024-07-23 16:27] LABS: PLT ABN DIST 1
[2024-07-23 16:42] LABS: White Blood Count 9.9 X10*3/uL (4.8-10.8)
[2024-07-23 16:43] LABS: Platelet Count 88 X10*3/uL (160-400); SLIDE REVIEW VERIFIED
== END 2024-07-23 13:58 | disposition home or self-care (01) ==
LOC: HO.HMGCLDS 13:57
PROVIDERS: PCP Internal Medicine Geriatric Medicine; Visit Provider Internal Medicine Geriatric Medicine
DX: D50.9 Iron deficiency anemia, unspecified (principal)
CPT/HCPCS: 36415; 85025

== ENCOUNTER 2024-08-07 15:02 | Outpatient (REF) | payer OTHER, SELFPAY ==
[2024-08-07 16:43] LABS: Imm Gran Abs Auto 0.01 X10*3/uL (0.00-0.03); Imm Gran Pct Auto 0.2 % (0.0-0.4); MANUAL DIFF FLAG SCAN; SCAN SMEAR FLAG 1
[2024-08-07 16:45] LABS: Basophils Absolute Auto 0.1 X10*3/uL (0.0-0.2); Basophils Percent Auto 0.8 % (0-2); Eosinophils Absolute Auto 0.2 X10*3/uL (0.0-0.4); Eosinophils Percent Auto 2.6 % (0-4); Hematocrit 31.4 % (37.0-47.0); Hemoglobin 9.4 g/dl (12.0-16.0); Lymphocytes Absolute Auto 0.9 X10*3/uL (1.2-4.9); Lymphocytes Percent Auto 13.6 % (20-40); Mean Corpuscular HGB Conc 29.9 g/dl (31.0-35.0); Mean Corpuscular Hemoglobin 28.7 pg (27.0-33.0); Monocytes Absolute Auto 0.6 X10*3/uL (0.1-1.2); Monocytes Percent Auto 9.3 % (2-11); Neutrophils Absolute Auto 4.8 x10*3/uL (2.0-8.3); Neutrophils Percent Auto 73.5 % (45-73); PLT CLUMP 1; Red Blood Count 3.27 X10*6/uL (4.20-5.50); Red Cell Distribution Width 19.5 % (11.0-16.0)
[2024-08-07 16:50] LABS: PLT ABN DIST 1
[2024-08-07 17:16] LABS: Platelet Count 63 X10*3/uL (160-400); White Blood Count 6.6 X10*3/uL (4.8-10.8)
[2024-08-07 17:17] LABS: SLIDE REVIEW VERIFIED
== END 2024-08-07 15:03 | disposition home or self-care (01) ==
LOC: HO.HMGCLDS 15:02
PROVIDERS: PCP Internal Medicine Geriatric Medicine; Referring Provider Internal Medicine; Visit Provider Internal Medicine Geriatric Medicine
DX: D64.9 Anemia, unspecified (principal)
CPT/HCPCS: 36415; 85025

== ENCOUNTER 2024-11-05 12:29 | Emergency (ER) | payer OTHER, SELFPAY ==
--- NOTE | ~2024-11-05 | XR_ITS ---
EXAMINATION: XR CHEST CLINICAL INFORMATION: SOB COMPARISON: 06/12/2024. 05/09/2024. TECHNIQUE: 2 views of the chest were obtained. FINDINGS: There is cardiac enlargement. Mediastinal and hilar contours are normal. Aortic mural calcification. The lungs are highly hyperaerated, however clear bilaterally. There is no pneumothorax or pleural effusion. There is no focal osseous or soft tissue abnormality. Mild shoulder joint degenerative changes. XR/XR chest 2V IMPRESSION: Cardiomegaly. No active pulmonary disease. Electronically signed by: Savage Everett MD 11/05/2024 02:12 PM EST
--- NOTE | 2024-11-05 12:40 | ED_ITS ---
HPI - General Adult General Chief complaint: Dyspnea Stated complaint: sent by pcp blood transfusion Time Seen by Provider: 11/05/24 12:39 History of Present Illness ED Provider: Dr. Owens HPI narrative: 78 y/o F patient; PMH chronic ITP, ischemic cardiomyopathy, emphysema, hx anemia requiring blood transfusion, chronic HFrEF; presents from home on PCP recommendation for lightheadedness, generalized weakness, and dyspnea on exertion. The patient denies any known bleeding source including: hemoptysis, hematochezia, or melena. She denies regular alcohol use. She denies regular NSAID use. Patient was admitted to this hospital on 06/12/2024 for similar symptoms. Found to have acute on chronic iron deficiency anemia believed to be from chronic GI losses. She required 4 units pRBC at that time. Colonoscopy on 06/17/2024 showed hiatal hernia, gastritis, duodenal polyp and duodenal AVM, colon polyps, AVM ascending colon, diverticulosis, hemorrhoids. Related Data Home Medications ?Medication ?Instructions ?Recorded ?Confirmed alprazolam 0.5 mg tablet 1 tab PO TID PRN Anxiety 12/07/20 06/12/24 cholecalciferol (vitamin D3) 25 1,000 unit PO DAILY 02/07/21 06/12/24 mcg (1,000 unit) capsule (Vitamin D3) albuterol sulfate 2.5 mg/3 mL 2.5 mg inhalation Q6H PRN Wheezing 01/27/22 06/12/24 (0.083 %) solution for nebulization cyanocobalamin (vitamin B-12) 1,000 mcg PO DAILY 01/27/22 06/12/24 1,000 mcg tablet fluticasone propionate 50 1 spray intranasal DAILY PRN 01/27/22 06/12/24 mcg/actuation nasal Congestion spray,suspension vitamin A 2,400 mcg capsule 2,400 mcg PO DAILY 01/27/22 06/12/24 metoprolol succinate 25 mg 25 mg PO DAILY 05/17/22 06/12/24 tablet,extended release 24 hr (Toprol XL) biotin 10,000 mcg chewable tablet 10,000 mcg PO DAILY 12/07/22 06/12/24 (Hair, Skin and Nails (biotin)) ondansetron HCl 4 mg tablet 1 tab PO Q8H PRN Nausea And 12/07/22 06/12/24 Vomiting albuterol sulfate 90 mcg/actuation 2 puff inhalation Q4H PRN Wheezing 06/12/24 06/12/24 aerosol inhaler fluticasone propionate 110 1 puff inhalation BID 06/12/24 06/12/24 mcg/actuation HFA aerosol inhaler hydrocodone 10 mg-acetaminophen 1 tab PO QID PRN Pain, Moderate 06/12/24 06/12/24 325 mg tablet Previous Rx's ?Medication ?Instructions ?Recorded pantoprazole 40 mg granules 40 mg PO DAILY #90 ea 06/18/24 delayed-release for susp in packet (Protonix) Allergies Allergy/AdvReac Type Severity Reaction Status Date / Time amoxicillin Allergy Unknown Hives Verified 11/05/24 12:53 Penicillins [PENICILLINS] Allergy Unknown Hives Verified 11/05/24 12:53 Sulfa (Sulfonamide Allergy Unknown Hives Verified 11/05/24 12:53 Antibiotics) [SULFA (SULFONAMIDE ANTIBIOTICS)] Review of Systems 2 Review of Systems: Yes all other systems are reviewed and are negative [facility] Past Medical History Attestation statement: The following information was validated with the patient. Source: old records reviewed Medical History Ascending aorta dilatation Atherosclerotic cardiovascular disease Non-rheumatic mitral regurgitation Non-rheumatic aortic regurgitation Non-rheumatic aortic stenosis Cardiomyopathy COPD exacerbation Heart failure with reduced ejection fraction Acute on chronic systolic (congestive) heart failure COPD (chronic obstructive pulmonary disease) Thrombocytopenia Osteoarthritis GERD (gastroesophageal reflux disease) Anxiety Asthma Surgical History Hx of colonoscopy Hx of endoscopy Hx of oophorectomy Hx of hysterectomy Hx of total knee replacement Family History Family History Sister Lung cancer Lupus Sister Lung cancer Maternal Aunt Lupus Social History Social History Household Members: None Household Members Other:: lives alone Housing: Condominium Are you a primary medicare coordinator to a significant other at home: No Do you presently have visiting nurse or other home services: No Unable to assess alcohol history related to: Unknown Alcohol intake: current Alcohol intake frequency: a few times a month Comment: patient refusing alarms Patient Tobacco Use Status: Former Tobacco user Smoked in Last 30 Days: No Second Hand Smoke Exposure: No Use of substances other than those prescribed or required for medical reasons: No Substance Use Type: Unknown Advance Directives: Yes Advance Directives on File: Yes Advance Directives Date on File: 03/20/23 service: No Current occupational status: employed Physical Exam ED Vital Signs: Vital Signs - 24 hr 11/05/24 12:51 11/05/24 15:08 11/05/24 15:22 Temperature 99.5 F 99.5 F 99 F Pulse Rate 75 75 75 Respiratory Rate 19 19 16 Blood Pressure 131/55 L 131/55 L 147/62 H Pulse Oximetry 98 98 Oxygen Delivery Method Nasal Cannula Nasal Cannula 11/05/24 15:38 Temperature 98.9 F Pulse Rate 75 Respiratory Rate 16 Blood Pressure 146/49 H Pulse Oximetry Oxygen Delivery Method BMI result Body Mass Index 30.3 Patient is afebrile and hemodynamically stable. Const General: cooperative and no acute distress HENMT Head: Yes normal to inspection and Yes atraumatic Eyes Pupils: Equal, round and reactive pupils present EOM: EOMs intact bilaterally Neck Neck: Yes normal visual inspection, Yes supple and No tender Chest Chest palpation & inspection: normal inspection of the chest and normal palpation of entire chest wall Resp Effort & Inspection: normal respiratory effort, able to speak in complete sentences, no cough and no respiratory distress Auscultation: clear to auscultation bilaterally Cardio Rate: regular rate Rhythm: regular rhythm Peripheral pulses: Peripheral pulses 2+ throughout GI Inspection: Yes normal to inspection, No Abdominal wall edema and No distended Palpation (GI): Soft to palpation, not firm, nontender, no guarding and not rigid Auscultation: normal bowel sounds Back/Spine/Pelvis Back: No back tenderness Neuro Cranial nerves: Yes Equal, round and reactive pupils present Course Course Course Narrative: Patient is afebrile and hemodynamically stable. Will obtain CBC, BMP, ABO/Antibody screen, respiratory swab, CXR. Labs reviewed. Hgb 7.3, prior 9.4 on 08/07/2024. Known thrombocytopenia 64. COVID/Flu/RSV negative. XR negative for focal infiltrate. Reevaluation(s) Reevaluation #1: I offered patient 1 unit prbc transfusion given she has symptomatic SOB. She is agreeable to this plan. She requested a dose of her home percocet which was provided. Patient observed throughout infusion without incident. Plan: Discharge to home with PCP follow up Return precautions given Medications Administered Discontinued Medications Generic Name Dose Route Start Last Admin Trade Name Rick PRN Reason Stop Dose Admin Hydrocodone Bitart/Acetaminophen 2 tab 11/05/24 14:44 11/05/24 15:24 Hydrocodone Bit/Acetam 5/325 Tablet PO 11/05/24 14:45 2 tab ONCE ONE Administration Medical Decision Making Lab Data 11/05/24 13:04 11/05/24 13:04 Labs: Lab Results 11/05/24 Range/Units 13:04 WBC 5.4 (4.8-10.8) X10*3/uL RBC 2.52 L D (4.20-5.50) X10*6/uL Hgb 7.3 L D (12.0-16.0) g/dl Hct 25.1 L D (37.0-47.0) % MCV 99.6 H (80.0-98.0) fL MCH 29.0 (27.0-33.0) pg MCHC 29.1 L (31.0-35.0) g/dl RDW 14.1 (11.0-16.0) % Plt Count 64 L (160-400) X10*3/uL MPV Not Reportable Immature Gran % (Auto) 0.6 H (0.0-0.4) % Neut % (Auto) 80.8 H (45-73) % Lymph % (Auto) 10.1 L (20-40) % [place] % (Auto) 6.7 (2-11) % Eos % (Auto) 1.1 (0-4) % Baso % (Auto) 0.7 (0-2) % Lymph # (Auto) 0.5 L (1.2-4.9) X10*3/uL [place] # (Auto) 0.4 (0.1-1.2) X10*3/uL Eos # (Auto) 0.1 (0.0-0.4) X10*3/uL Baso # (Auto) 0.0 (0.0-0.2) X10*3/uL Abs Immat Gran (auto) 0.03 (0.00-0.03) X10*3/uL Absolute Neuts (auto) 4.3 (2.0-8.3) x10*3/uL Absolute Nucleated RBC 0.000 (0.0-0.012) X10*3/uL Nucleated RBC % (auto) 0.0 (0.0-0.2) /100WBC Smear Tech's Comments VERIFIED Sodium 146 H (135-145) mmol/L Potassium 4.4 (3.3-5.1) mmol/L Chloride 112 H (96-108) mmol/L Carbon Dioxide 28 (22-29) mmol/L Anion Gap 10 L (12-20) BUN 23 H (9-16) mg/dL Creatinine 0.68 (0.5-1.4) mg/dL Estim Creat Clear Calc 66.1 Estimated GFR > 60 Random Glucose 98 (60-115) mg/dL Calcium 8.5 (8.4-10.2) mg/dL Influenza Type A (PCR) NEGATIVE (Negative) Influenza Type B (PCR) NEGATIVE (Negative) RSV RNA Qual (PCR) NEGATIVE (Negative) SARS-CoV-2 RNA (RT-PCR) NEGATIVE (Negative) Blood Type O Positive Antibody Screen NEGATIVE Crossmatch See Detail Radiology Impression Discussion of test interpretation with radiology: I have reviewed the radiologist's reading. Radiologist Impression: EXAMINATION: XR CHEST CLINICAL INFORMATION: SOB COMPARISON: 06/12/2024. 05/09/2024. TECHNIQUE: 2 views of the chest were obtained. FINDINGS: There is cardiac enlargement. Mediastinal and hilar contours are normal. Aortic mural calcification. The lungs are highly hyperaerated, however clear bilaterally. There is no pneumothorax or pleural effusion. There is no focal osseous or soft tissue abnormality. Mild shoulder joint degenerative changes. XR/XR chest 2V IMPRESSION: Cardiomegaly. No active pulmonary disease. Electronically signed by: Savage Everett MD 11/05/2024 02:12 PM [facility] [place] Discharge Clinical Impression: Anemia Patient Disposition: Home, Self-Care Instructions: Anemia (ED) Additional Instructions: Please follow up for weekly Hgb checks as per your oncologist recommendations. Prescriptions: No Action alprazolam 0.5 mg tablet 1 tab PO TID PRN (Reason: Anxiety) cholecalciferol (vitamin D3) [Vitamin D3] 25 mcg (1,000 unit) Capsule 1,000 unit PO DAILY ondansetron HCl 4 mg tablet 1 tab PO Q8H PRN (Reason: Nausea And Vomiting) Hair, Skin and Nails (biotin) 10,000 mcg Tablet,Chewable 10,000 mcg PO DAILY albuterol sulfate 2.5 mg /3 mL (0.083 %) solution for nebulization 2.5 mg inhalation Q6H PRN (Reason: Wheezing) fluticasone propionate 50 mcg/actuation spray,suspension 1 spray intranasal DAILY PRN (Reason: Congestion) vitamin A 2,400 mcg Capsule 2,400 mcg PO DAILY cyanocobalamin (vitamin B-12) 1,000 mcg Tablet 1,000 mcg PO DAILY hydrocodone-acetaminophen 10-325 mg tablet 1 tab PO QID PRN (Reason: Pain, Moderate) albuterol sulfate 90 mcg/actuation HFA aerosol inhaler 2 puff inhalation Q4H PRN (Reason: Wheezing) fluticasone propionate 110 mcg/actuation HFA aerosol inhaler 1 puff inhalation BID pantoprazole [Protonix] [address] for susp in packet 40 mg PO DAILY Qty: 90 0RF metoprolol succinate [Toprol XL] 25 mg tablet extended release 24 hr 25 mg PO DAILY Print Language: Montserratian
[2024-11-05 12:51] VITALS: BP 131/55; BP 150/60; PULSE 75; PULSE 83; RESP 19; TEMP 37.5; O2SAT 96; O2SAT 98; BMI 30.3
[2024-11-05 13:22] LABS: Basophils Percent Auto 0.7 % (0-2); Eosinophils Absolute Auto 0.1 X10*3/uL (0.0-0.4); Eosinophils Percent Auto 1.1 % (0-4); Hematocrit 25.1 % (37.0-47.0); Hemoglobin 7.3 g/dl (12.0-16.0); Imm Gran Abs Auto 0.03 X10*3/uL (0.00-0.03); Imm Gran Pct Auto 0.6 % (0.0-0.4); Lymphocytes Absolute Auto 0.5 X10*3/uL (1.2-4.9); Lymphocytes Percent Auto 10.1 % (20-40); MANUAL DIFF FLAG SCAN; Mean Corpuscular HGB Conc 29.1 g/dl (31.0-35.0); Mean Corpuscular Volume 99.6 fL (80.0-98.0); Monocytes Absolute Auto 0.4 X10*3/uL (0.1-1.2); Monocytes Percent Auto 6.7 % (2-11); Neutrophils Absolute Auto 4.3 x10*3/uL (2.0-8.3); Neutrophils Percent Auto 80.8 % (45-73); PLT CLUMP 1; Red Blood Count 2.52 X10*6/uL (4.20-5.50); Red Cell Distribution Width 14.1 % (11.0-16.0); SCAN SMEAR FLAG 1
[2024-11-05 13:31] LABS: Anion Gap 10 (12-20); Blood Urea Nitrogen 23 mg/dL (9-16); Calcium 8.5 mg/dL (8.4-10.2); Carbon Dioxide 28 mmol/L (22-29); Chloride 112 mmol/L (96-108); Creatinine Clr Calc Pharmacy 66.1; Estimated Glomerular Filt Rate > 60; Glucose Random 98 mg/dL (60-115); Potassium 4.4 mmol/L (3.3-5.1); Sodium 146 mmol/L (135-145)
[2024-11-05 13:39] LABS: Platelet Count 64 X10*3/uL (160-400); White Blood Count 5.4 X10*3/uL (4.8-10.8)
[2024-11-05 13:40] LABS: SLIDE REVIEW VERIFIED
[2024-11-05 13:49] LABS: Influenza A PCR NEGATIVE (Negative); Influenza B PCR NEGATIVE (Negative); Resp Syncy Virus RNA Qual PCR NEGATIVE (Negative); SARS COV2 PCR INHOUSE NEGATIVE (Negative)
[2024-11-05 15:08] VITALS: BP 131/55; PULSE 75; RESP 19; TEMP 37.5; O2SAT 98
[2024-11-05 15:22] VITALS: BP 147/62; PULSE 75; RESP 16; TEMP 37.2
[2024-11-05] MEDS: HYDROcodone Bit/Acetam 5/325 TABLET 2 TAB PO (15:24)
[2024-11-05 15:38] VITALS: BP 146/49; PULSE 75; RESP 16; TEMP 37.2
--- NOTE | 2024-11-05 16:14 | PC.NURSE ---
Pt medicated for knee pain; no adverse reaction noted to ongoing blood transfusion
--- OUTSIDE RECORDS SUMMARY | 2024-11-05 16:43 | XMS_ITS | Encounter Summary ---
Author Organization [employer] Address [address] [facility] 7t [place] [address] Care Team Providers Care Hand Cooper Helper Name Role Phone Name, Joseph KIM Primary Care Provider [phone] Reason for Visit * Reason Onset Date Comments Call Back Request 02/13/2024 Encounter Details Date Type Department Care Team ([facility] Contact Info) Description 02/13/2024 Telephone [facility] [address] [place], [place] [phone] Name, MD Joseph [address] [place] [address] Call Back Request Social History Tobacco Use Types Packs/Day Years Used Date Smoking Tobacco: Former Cigarettes Q uit: 2000 Smokeless Tobacco: Never Alcohol Use Standard Drinks/Week Comments Not Currently 0 (1 standard drink = 0.6 oz pur e alcohol) Depression Answer Date Recorded Patient Health Questionnaire-9 Score 0 01/30/2024 Patient Health Questionnaire-9 Score 0 01/30/2024 Last PHQ-9: Questionnaire Data Not on file 0 01/30/2024 Housing Stability Answer Date Recorded What is your housing situation today? I have isabela cruz 07/05/[address] you li ve. Do you have problems with any of the following? None of the above 07/05/2023 Food Insecurity Answer Date Recorded Within the past 12 months, y ou worried that your food would run out before you got money to buy more: Never True 07/05/2023 Within the past 12 months,th e food you bought just didn't last and you didn't have enough money to get more: Never True Transportation Answer Date Recorded In the past 12 months, has l ack of transportation kept you from medical appts, meetings, work or from getting things needed for daily living? No 07/05/2023 Utilities Answer Date Recorded In the past 12 months, has t he electric, gas, oil or water company threatened to shut off services in your home? No 07/05/2023 Depression Answer Date Recorded Patient Health Questionnaire-2 Score 0 01/30/2024 Comments Unknown Sex and Gender Information Value Date Recorded Sex Assigned at Female 07/18/2022 10:29 AM EDT Legal Sex Female 10:29 AM EDT Gender Identity Female 07/18/2022 10:29 AM EDT Sexual Orientation Straight 07/18/2022 10 :29 AM EDT documented as of this encounter Miscellaneous Notes * Telephone Encounter - Kaitlynn Landrum RN - 02/14/2024 11:58 AM EDT Return TC to patient, patient reported that she had a slight fall last week. Stated she was walking up to her front door and reached for the door knob but missed, landing on her right knee. States its sore, somewhat bruised. She is seeing Dr Dolan on Monday and feels she can wait for that doctor visit to have it evaluated. Stated she originally called this typewriter aligner about her medications, but has since figured it all out. Will forward message to PCP as FYChas. * Telephone Encounter - Althea Edouard - 02/13/2024 8:49 AM EDT Tc from pt requesting a call back in regards medications. documented in this encounter Plan of Treatment Upcoming Encounters Date Type Department Care Team (Late st Contact Info) Description 11/29/2024 10:30 AM EDT Telemedicine [facility] [address] [place] [address] Kaitlynn Landrum, RN documented as of this encounter Visit Diagnoses Not on filedocumented in this encounter Additional Health Concerns Assessment Noted Time PHQ-9 Depression Total Score: 0 01/30/20 24 11:07 AM EDT documented as of this encounter Care Teams Hand Cooper Helper Relationship Specialty Start Date End Date Name, MD Joseph [address] [place] [address] PCP - General Family Medicine 01/21/22 documented as of this encounter
--- OUTSIDE RECORDS SUMMARY | 2024-11-05 16:44 | XMS_ITS | Encounter Summary ---
Author Organization [employer] Address [address] [facility] 7t [place] [address] Care Team Providers Care Boat Builder Name Role Phone Name, Joseph KIM Primary Care Provider [phone] Reason for Visit * Reason Onset Date Comments Triage 12/28/2022 Encounter Details Date Type Department Care Team ([facility] st Contact Info) Description 12/28/2022 Telephone [facility] [address] [place], [place] [phone] Name, MD Joseph [address] [place] [address] Triage Social History Tobacco Use Types Packs/Day Years Used Date Smoking Tobacco: Former Cigarettes Q uit: 2000 Smokeless Tobacco: Never Alcohol Use Standard Drinks/Week Comments Not Currently 0 (1 standard drink = 0.6 oz pur e alcohol) Depression Answer Date Recorded Patient Health Questionnaire-9 Score 4 09/22/2022 Depression Answer Date Recorded Patient Health Questionnaire-2 Score 0 09/22/2022 Comments Unknown Sex and Gender Information Value Date Recorded Sex Assigned at Female 07/18/2022 10:29 AM EDT Legal Sex Female 10:29 AM EDT Gender Identity Female 07/18/2022 10:29 AM EDT Sexual Orientation Straight 07/18/2022 10 :29 AM EDT COVID-19 Exposure Response Date Recorded In the last 10 days, have yo u been in contact with someone who was confirmed or suspected to have Coronavirus/COVID-19? No / Unsure 11/30/2022 9:18 AM EDT documented as of this encounter Miscellaneous Notes * Telephone Encounter - Nina Lane RN - 12/28/2022 5:03 PM EDT Triage call Pt reports being hospitalized many times recently , transfusions and broken arm. Pt hasbeen checking blood pressures as PCP asked. Today the BP is 108/61 usually BP is 110/72. Pt has some light headedness and dizziness at times over the last 3 days. Neither symptom present at time of call. Pt is encouraged to try to increase fluids 2 more glasses and Pt agrees. Pt will continue to take BP in AM and PM and report findings Monday with tele visit. Pt reports , I feel ok just wants tokeep in touch with findings that change. Advised Pt to call back if further changes occur or call 911 if needed and Pt agrees. Protocol Used: Dizziness (Adult) Protocol-Based Disposition: Home Care Positive Triage Question: * Dizziness caused by not drinking enough fluids * All higher-acuity triage questions were negative Care Advice Discussed: * Drink Fluids * Reasons To Call Back - After 2 hours of rest and fluids And still feeling dizzy. - Passes out (faints). - You become worse. * Telephone Encounter - Courtney Heck - 12/28/2022 3:44 PM EDT Symptoms: Dizziness, High Blood Pressure - Caller Reports Outcome: Schedule an urgent appointment (within 4 hours) or talk to a nurse or provider soon Reason: Started within the past 3 days The caller accepted this outcome Please contact pt at [phone] documented in this encounter Plan of Treatment Upcoming Encounters Date Type Department Care Team (Late st Contact Info) Description 11/29/2024 10:30 AM EDT Telemedicine [facility] [address] [place] [address] Kaitlynn Landrum RN documented as of this encounter Visit Diagnoses Not on filedocumented in this encounter Additional Health Concerns Assessment Noted Time PHQ-9 Depression Total Score: 4 09/22/19 23 11:14 AM EST documented as of this encounter Care Teams Boat Builder Relationship Specialty Start Date End Date Name, MD Joseph [address] [place] [address] PCP - General Family Medicine 01/21/22 documented as of this encounter
--- OUTSIDE RECORDS SUMMARY | 2024-11-05 16:44 | XMS_ITS | Encounter Summary ---
Author Organization [employer] Address [address] [facility] 7t [place] [address] Care Team Providers Care Dog Food Dough Mixer Name Role Phone Name, Joseph KIM Primary Care Provider [phone] Reason for Visit * Reason Onset Date Comments Med Refill 08/28/2023 Encounter Details Date Type Department Care Team ([facility] st Contact Info) Description 08/28/2023 Telephone [facility] [address] [place], [place] [phone] Name, MD Joseph [address] [place] [address] Med Refill Social History Tobacco Use Types Packs/Day Years Used Date Smoking Tobacco: Former Cigarettes Q uit: 2000 Smokeless Tobacco: Never Alcohol Use Standard Drinks/Week Comments Not Currently 0 (1 standard drink = 0.6 oz pur e alcohol) Depression Answer Date Recorded Patient Health Questionnaire-9 Score 4 09/22/2022 Housing Stability Answer Date Recorded What is [...] encounter Miscellaneous Notes * Telephone Encounter - Bela Palencia LPN - 08/28/2023 1:52 PM EST Medication was sent on 07/28/23 with 1 refill. * Telephone Encounter - Gloria Colby - 08/28/2023 1:47 PM EST tc from pt requesting medication refill on albuterol 108 (90 Base) MCG/ACT inhaler to be sent to [facility] - [place], [place] - [address] [place], [place] [address] documented in this encounter Plan of Treatment Upcoming Encounters Date Type Department Care Team (Late st Contact Info) Description 11/29/2024 10:30 AM EDT Telemedicine [facility] [address] [place] [address] Kaitlynn Landrum RN documented as of this encounter Visit Diagnoses Not on filedocumented in this encounter Additional Health Concerns Assessment Noted Time PHQ-9 Depression Total Score: 4 09/22/19 23 11:14 AM EST documented as of this encounter Care Teams Dog Food Dough Mixer Relationship Specialty Start Date End Date Name, MD Joseph [address] [place] [address] PCP - General Family Medicine 01/21/22 documented as of this encounter
--- OUTSIDE RECORDS SUMMARY | 2024-11-05 16:44 | XMS_ITS | Encounter Summary ---
Author Organization [employer] Address [address] [facility] 7t [place] [address] Care Team Providers Care Anchor Tack Puller Name Role Phone Name, Joseph KIM Primary Care Provider [phone] Encounter Details Date Type Department Care Team ([facility] st Contact Info) Description 07/26/2024 Orders Only [facility] [address] [place], [place] [phone] Name, MD Joseph [address] [place] [address] Iron deficiency anemia, unspecified iron deficiency anemia type Social History Tobacco Use Types Packs/Day Years [...] AM EDT documented as of this encounter Plan of Treatment Upcoming Encounters Date Type Department Care Team (Late st Contact Info) Description 11/29/2024 10:30 AM EDT Telemedicine [facility] MEDICINE [address] [place] [address] Kaitlynn Landrum RN documented as of this encounter Visit Diagnoses Diagnosis Iron deficiency anemia, unspecified iron deficiency anemia type documented in this encounter Additional Health Concerns Assessment Noted Time PHQ-9 Depression Total Score: 0 01/30/20 24 11:07 AM EDT documented as of this encounter Care Teams Anchor Tack Puller Relationship Specialty Start Date End Date Name, MD Joseph [address] [place] [address] PCP - General Family Medicine 01/21/22 documented as of this encounter
--- OUTSIDE RECORDS SUMMARY | 2024-11-05 16:44 | XMS_ITS | Encounter Summary ---
Author Organization [employer] Address [address] [facility] 7t [place] [address] Care Team Providers Care Corporate Meeting Planner Name Role Phone Name, Joseph KIM Primary Care Provider [phone] Encounter Details Date Type Department Care Team ([facility] st Contact Info) Description 07/12/2024 Orders Only [facility] MEDICINE [address] [place], [place] [phone] Name, MD Joseph [address] [place] [address] Iron deficiency anemia, unspecified iron deficiency anemia [...] Info) Description 11/29/2024 10:30 AM EDT Telemedicine [facility] MEDICINE [address] [place] [address] Kaitlynn Landrum RN documented as of this encounter Visit Diagnoses Diagnosis Iron deficiency anemia, unspecified iron deficiency anemia type documented in this encounter Additional Health Concerns Assessment Noted Time PHQ-9 Depression Total Score: 0 01/30/20 24 11:07 AM EDT documented as of this encounter Care Teams Corporate Meeting Planner Relationship Specialty Start Date End Date Name, MD Joseph [address] [place] [address] PCP - General Family Medicine 01/21/22 documented as of this encounter
--- OUTSIDE RECORDS SUMMARY | 2024-11-05 16:44 | XMS_ITS | Encounter Summary ---
Author Organization [employer] Address [address] [facility] 7t [place] [address] Care Team Providers Care Garage Door Installer Name Role Phone Name, Joseph KIM Primary Care Provider Reason for Visit * Reason Onset Date Comments Med Refill 10/08/2024 Encounter Details Date Type Department Care Team ([facility] st Contact Info) Description 10/08/2024 Refill [facility] [address] [place], [place] [phone] Name, MD Joseph [address] [place] [address] Chronic pain syndrome Social History Tobacco Use Types Packs/Day Years [...] as of this encounter Miscellaneous Notes * Addendum Note - Ina Landrum RN - 10/15/2024 7:21 AM ESTAddended by: INA LANDRUM on: 10/15/2024 07:21 AM Modules accepted: Orders * Telephone Encounter - Ina Landrum RN - 10/10/2024 3:32 PM EST TC to patient, reviewed the pharmacy discussion below. Patient stated she did receive her Percocet 09/20/24 and has the correct number of percocet remaining until her next refill is due. * Telephone Encounter - Ina Landrum RN - 10/10/2024 3:29 PM EST TC to pharmacy, spoke with Shakila. Pharmacy confirms that her last Percocet RX was filled 09/19/24 and overnight delivered to her. * Telephone Encounter - Ina Landrum RN - 10/09/2024 8:43 AM EST Return TC to patient, reviewed with patient the [employer] dates, explained that she would need to speak with Kev saez about the dates they entered into [employer] system. * Telephone Encounter - Kishan Ion - 10/09/2024 8:10 AM EST Tc from pt requesting a call back regarding Prior message. Pt states doesn't have any medication left. Contact pt at [phone] * Telephone Encounter - Ina Landrum RN - 10/08/2024 8:45 AM EST Per [facility], Percocet last picked up 09/19/24, refill not due until 10/17/24. Will forward to PCP 10/15/24. * Telephone Encounter - Kishan Lemon - 10/08/2024 8:13 AM EST TC from pt requesting medication refill. Medications needing refill : oxyCODONE-acetaminophen (Percocet) 10-325 MG tablet To be sent to: [facility] [place] [address] [place] documented in this encounter Plan of Treatment Upcoming Encounters Date Type Department Care Team (Late st Contact Info) Description 11/29/2024 10:30 AM EDT Telemedicine [facility] MEDICINE [address] [place] [address] Ina Landrum, RN documented as of this encounter Visit Diagnoses Diagnosis Chronic pain syndrome documented in this encounter Additional Health Concerns Assessment Noted Time PHQ-9 Depression Total Score: 0 01/30/20 24 11:07 AM EDT documented as of this encounter Care Teams Garage Door Installer Relationship Specialty Start Date End Date Name, MD Joseph [address] [place] [address] PCP - General Family Medicine 01/21/22 documented as of this encounter
--- OUTSIDE RECORDS SUMMARY | 2024-11-05 16:44 | XMS_ITS | Encounter Summary ---
Author Organization [employer] Address [address] [facility] 7t [place] [address] Care Team Providers Care Tax Evaluator Name Role Phone Name, Joseph KIM Primary Care Provider [phone] Reason for Visit * Reason Onset Date Comments Med Refill 10/08/2024 Encounter Details Date Type Department Care Team ([facility] st Contact Info) Description 10/08/2024 Telephone [facility] MEDICINE [address] [place], [place] [phone] Name, MD Joseph [address] [place] [address] Med Refill Social History Tobacco Use Types [...] Telephone Encounter - Bela Palencia LPN - 10/08/2024 8:24 AM EST Medication was sent on 06/26/24 #30 with 11 refills. * Telephone Encounter - Kishan Lemon - 10/08/2024 8:17 AM EST TC from pt requesting medication refill. Medications needing refill : ferrous gluconate (Fergon) 324 (38 Fe) MG tablet To be sent to: [facility] - [place], [place] - [address] [place] [address] documented in this encounter Plan of Treatment Upcoming Encounters Date Type Department Care Team (Late st Contact Info) Description 11/29/2024 10:30 AM EDT Telemedicine [facility] MEDICINE [address] [place] [address] Kaitlynn Landrum, SUNSHINE documented as of this encounter Visit Diagnoses Not on filedocumented in this encounter Additional Health Concerns Assessment Noted Time PHQ-9 Depression Total Score: 0 01/30/20 24 11:07 AM EDT documented as of this encounter Care Teams Tax Evaluator Relationship Specialty Start Date End Date Name, MD Joseph [address] [place] [address] PCP - General Family Medicine 01/21/22 documented as of this encounter
--- OUTSIDE RECORDS SUMMARY | 2024-11-05 16:44 | XMS_ITS | Encounter Summary ---
Author Organization [employer] Address [address] [facility] 7t [place] [address] Care Team Providers Care Online Health And Fitness Coach Name Role Phone Name, Joseph KIM Primary Care Provider [phone] Reason for Visit * Reason Onset Date Comments Med Refill 10/08/2024 Encounter Details Date Type Department Care Team ([facility] st Contact Info) Description 10/08/2024 Refill [facility] MEDICINE [address] [place], [place] [phone] Name, MD Joseph [address] [place] [address] Chronic pain syndrome Social History Tobacco Use [...] encounter Miscellaneous Notes * Telephone Encounter - Kishan Lemon - 10/08/2024 8:16 AM EST TC from pt requesting medication refill. Medications needing refill : ALPRAZolam (Xanax) 0.5 MG tablet To be sent to: [facility] - [place], [place] - [address] Forbes documented in this encounter Plan of Treatment Upcoming Encounters Date Type Department Care Team (Late st Contact Info) Description 11/29/2024 10:30 AM EDT Telemedicine [facility] MEDICINE [address] [place] [address] Kaitlynn Landrum RN documented as of this encounter Visit Diagnoses Diagnosis Chronic pain syndrome documented in this encounter Additional Health Concerns Assessment Noted Time PHQ-9 Depression Total Score: 0 01/30/20 24 11:07 AM EDT documented as of this encounter Care Teams Online Health And Fitness Coach Relationship Specialty Start Date End Date Name, MD Joseph [address] [place] [address] PCP - General Family Medicine 01/21/22 documented as of this encounter
--- OUTSIDE RECORDS SUMMARY | 2024-11-05 16:44 | XMS_ITS | Encounter Summary ---
Author Organization [employer] Address [address] [facility] 7t [place] [address] Care Team Providers Care Health Services Administrator Name Role Phone Name, Joseph KIM Primary Care Provider [phone] Reason for Visit * Reason Onset Date Comments Med Refill 04/28/2023 Encounter Details Date Type Department Care Team ([facility] st Contact Info) Description 04/28/2023 Telephone [facility] MEDICINE [address] [place], [place] [phone] Name, MD Joseph [address] [place] [address] Med Refill Social History Tobacco Use Types [...] encounter Miscellaneous Notes * Telephone Encounter - Elliott Perea - 04/28/2023 10:02 AM EDT Tc from pt requesting a refill for alprazolam 0.5 mg & HYDROcodone-acetaminophen ([place]) 7.5-325 MG tablet documented in this encounter Plan of Treatment Upcoming Encounters Date Type Department Care Team (Late st Contact Info) Description 11/29/2024 10:30 AM EDT Telemedicine [facility] MEDICINE [address] [place] [address] Kaitlynn Landrum, SUNSHINE documented as of this encounter Visit Diagnoses Not on filedocumented in this encounter Additional Health Concerns Assessment Noted Time PHQ-9 Depression Total Score: 4 09/22/19 23 11:14 AM EST documented as of this encounter Care Teams Health Services Administrator Relationship Specialty Start Date End Date Name, MD Joseph [address] [place] [address] PCP - General Family Medicine 01/21/22 documented as of this encounter
--- OUTSIDE RECORDS SUMMARY | 2024-11-05 16:44 | XMS_ITS | Encounter Summary ---
Author Organization [employer] Address [address] [facility] 7t [place] [address] Care Team Providers Care Loader Semiconductor Dies Name Role Phone Name, Joseph KIM Primary Care Provider [phone] Reason for Visit * Reason Onset Date Comments Nurse Triage 09/17/2024 Encounter Details Date Type Department Care Team ([facility] st Contact Info) Description 09/17/2024 Telephone [facility] MEDICINE [address] [place], [place] [phone] Name, MD Joseph [address] [place] [address] Nurse Triage Social History Tobacco Use Types Packs/Day [...] encounter Miscellaneous Notes * Telephone Encounter - Ara Cantor RN - 09/17/2024 12:57 PM EST Triage note reviewed. Pt was advised to call C if symptoms persist after taking medication. * Telephone Encounter - Lida Edgar RN - 09/17/2024 12:54 PM EST Sent to team for BP status check PRN. * Telephone Encounter - Lida Edgar RN - 09/17/2024 12:47 PM EST Call returned to Susan Chan to triage below. Pt reports having BP reading of 154/77. Having someSOB. No FIERRO, dizziness or CP. No arm pain or numbness. Pt has not taken BP meds yet today. Pt advised of disposition, agrees to take BP med now and will recheck in 1 hour. Pt to call in results to [facility]TT[facility] as office to close at 1pm for holiday. Pt advised to call back on if sx continue. Reviewed home care advise, ER precautions and reasons to call back. Protocol Used: Blood Pressure - High (Adult) Protocol-Based Disposition: See in Office or Video Visit within 2 Weeks Override (Final) Disposition: Go to Urgent Care Now Override Reason: End of day or office closed Video visit offer not recorded Positive Triage Question: * Systolic BP >= 130 OR Diastolic >= 80, and is taking BP medications * All higher-acuity triage questions were negative Care Advice Discussed: * Missed Dose of Blood Pressure Medicine * Reasons To Call Back - Headache, blurred vision, difficulty talking, or difficulty walking occurs - Chest pain or difficulty breathing occurs - You want to come into the office for a blood pressure check - You become worse * Telephone Encounter - Lida Edgar RN - 09/17/2024 12:38 PM EST Call returned to Susan Chan for triage below. No answer LVM to return call to [facility] triage line [phone]. * Telephone Encounter - Salvador Diamond - 09/17/2024 12:36 PM EST Symptom: High Blood Pressure - Caller Reports Outcome: Transfer to a nurse or provider NOW! Reason: Trouble breathing The caller accepted this outcome. documented in this encounter Plan of Treatment Upcoming Encounters Date Type Department Care Team (Late st Contact Info) Description 11/29/2024 10:30 AM EDT Telemedicine [facility] MEDICINE [address] [place] [address] Kaitlynn Landrum RN documented as of this encounter Visit Diagnoses Not on filedocumented in this encounter Additional Health Concerns Assessment Noted Time PHQ-9 Depression Total Score: 0 01/30/20 24 11:07 AM EDT documented as of this encounter Care Teams Loader Semiconductor Dies Relationship Specialty Start Date End Date Name, MD Joseph [address] [place] [address] PCP - General Family Medicine 01/21/22 documented as of this encounter
--- OUTSIDE RECORDS SUMMARY | 2024-11-05 16:44 | XMS_ITS | Continuity of Care Document ---
Author Organization [facility] Address [address] [place] [phone]- Care Team Providers Care Endband Sizer Name Role Phone Name Joseph KMI Primary Care Physician [id number] Date(s): 09/17/24 - 10/17/24 [facility] [address] [place] [id number]- Encounter Type: Triage Allergies, Adverse Reactions, Alerts Substance Criticality Severity Reaction Reaction Severity Status penicillin Active sulfamethoxazole Act xavier Immunizations Given and Recorded Vaccine Date Status Refusal Reason Influenza Virus Vaccine (oldterm) 1 07/04/06 Given 1Admin Note: VIS-GIVEN Medications acetaminophen-oxycodone 325 mg-10 mg oral tablet 2 tablet, By Mouth, Every 6 hours, PRN for pain, 0 Refills, Maintenance, 08/28/24 10:23:00 AM EST, Tablet, Partial fill upon patient request if the prescription is for a schedule II opioid drug. Start Date: 08/28/24 Status: Ordered Repeat number: 1 albuterol 90 mcg/inh inhalation aerosol 2, puffs, Inhalation, 4 times a day, PRN as needed for wheezing, # 0, 3 Refills Start Date: 01/19/06 Stop Date: 05/19/06 Status: Ordered Repeat number: 4 Biotin By Mouth, Daily, 0 Refills, Maintenance, 06/04/18 2:14:10 PM EDT Start Date: 06/04/18 Status: Ordered Repeat number: 1 Flovent HFA 110 mcg/inh inhalation aerosol 2 puffs, Inhalation, 2 times a day, # 12 Gm, 0 Refills, Maintenance, 06/02/22 5:17:00 PM EDT, Aerosol, Partial fill upon patient request if the prescription is for a schedule II opioid drug. Start Date: 06/02/22 Status: Ordered Quantity: 12.0 Unit: g Repeat number: 1 Iron 100 Plus oral tablet 1 tablet, By Mouth, Daily, 0 Refills, Maintenance, 11/15/23 11:21:00 AM EST, Partial fill upon patient request if the prescription is for a schedule II opioid drug. Start Date: 11/15/23 Status: Ordered Repeat number: 1 metoprolol 25 mg oral tablet, extended release 25 mg, 1, tablet, By Mouth, Daily, # 30 tablet, Refills 0, Maintenance, 05/31/21 1:58:00 PM EDT, Partial fill upon patient request if the prescription is for a schedule II opioid drug. Start Date: 05/31/21 Status: Ordered Quantity: 30.0 Unit: tablet Repeat number: 1 ondansetron 4 mg oral tablet 1 tablet = 4 mg, By Mouth, Every 8 hours, # 12 tablet, 0 Refills, Maintenance, 06/27/23 8:50:00 AM EDT, Tablet, Partial fill upon patient request if the prescription is for a schedule II opioid drug. Start Date: 06/27/23 Status: Ordered Quantity: 12.0 Unit: tablet Repeat number: 1 Vitamin A 0 Refills, Maintenance, 06/04/18 2:13:45 PM EDT Start Date: 06/04/18 Status: Ordered Repeat number: 1 Vitamin B12 0 Refills, Maintenance, 07/03/18 10:40:42 AM EDT Start Date: 07/03/18 Status: Ordered Repeat number: 1 Vitamin D3 By Mouth, 0 Refills, Maintenance, 06/04/18 2:14:22 PM EDT Start Date: 06/04/18 Status: Ordered Repeat number: 1 Xanax 0.5 mg oral tablet 0.5 mg, 1, tablet, By Mouth, 3 times a day, Refills 0, Maintenance, 08/31/18 9:12:58 AM EST Start Date: 08/31/18 Status: Ordered Repeat number: 1 Problem List Condition Confirmation Course Effective Dates Status Health St atus Informant Greater trochanteric bursitis of right hip Confirmed Active Migraine Confirmed Active 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 Confirmed Active Peptic ulcer disease Confirmed Active Social History Social History Type Response Smoking Status Never (less than 100 in lifetime) entered on: 08/28/24 Sex Sex Representation Female (finding) Patient Care team information Care Team Personnel Name: Name Joseph KIM Position: [facility] Outreach Member Role: PCP Address: [address] [place] [id number] Telecom: Care Team Related Persons Name: MILADYS MARTIN Name: BERKLEY MENENDEZ Insurance Providers Guarantor name: GEOVANY MARTIN Health Plan Information #: 1 Payer: NA Member Number: NA Policy Number: NA Group Number: NA Health Plan Information #: 2 Payer: MEDICARE PART B OUTPT Member Number: NA Policy Number: NA Group Number: NA
--- OUTSIDE RECORDS SUMMARY | 2024-11-05 16:44 | XMS_ITS | Encounter Summary ---
Author Organization [facility] Address [address] [facility] [address] [place] [address] Care Team Providers Care Machine Cementer Name Role Phone Name, Joseph KIM Primary Care Provider [phone] Encounter Details Date Type Department Care Team ([facility] st Contact Info) Description 08/30/2024 Orders Only [facility] [address] [place], [place] [phone] Name, MD Joseph [address] [place] [address] Iron deficiency anemia, unspecified iron deficiency anemia [...] Info) Description 11/29/2024 10:30 AM EDT Telemedicine [facility] [address] [place] [address] Kaitlynn Landrum RN documented as of this encounter Visit Diagnoses Diagnosis Iron deficiency anemia, unspecified iron deficiency anemia type documented in this encounter Additional Health Concerns Assessment Noted Time PHQ-9 Depression Total Score: 0 01/30/20 24 11:07 AM EDT documented as of this encounter Care Teams Machine Cementer Relationship Specialty Start Date End Date Name, MD Joseph [address] [place] [address] PCP - General Family Medicine 01/21/22 documented as of this encounter
--- OUTSIDE RECORDS SUMMARY | 2024-11-05 16:44 | XMS_ITS | Encounter Summary ---
Author Organization [employer] Address [address] [facility] [address] [place] [address] Care Team Providers Care Photographic Intelligence Officer Name Role Phone Name, Joseph KIM Primary Care Provider [phone] Reason for Visit * Reason Onset Date Comments call back requested 11/11/2022 Encounter Details Date Type Department Care Team ([facility] Contact Info) Description 11/11/2022 Telephone [facility] [address] [place], [place] [id number] Name, MD Joseph [address] [place] [address] call back requested Social History Tobacco Use Types Packs/Day Years [...] suspected to have Coronavirus/COVID-19? No / Unsure 03/27/2023 2:30 PM EDT documented as of this encounter Miscellaneous Notes * Telephone Encounter - Cheryl García RN - 11/11/2022 11:40 AM EST Appears pt was scheduled for televisit yesterday, 11/10, but did not answer x4 * Telephone Encounter - Elliott Perea - 11/11/2022 11:32 AM EST Tc from pt stating they received a missed call from [facility] however bid writer sees no notes left behind. Pt is requesting a call back. Please contact at [phone] documented in this encounter Plan of Treatment Upcoming Encounters Date Type Department Care Team (Late st Contact Info) Description 11/29/2024 10:30 AM EDT Telemedicine [facility] [address] [place] [id number] Kaitlynn Landrum, SUN[place] documented as of this encounter Visit Diagnoses Not on filedocumented in this encounter Additional Health Concerns Assessment Noted Time PHQ-9 Depression Total Score: 4 09/22/19 23 11:14 AM EST documented as of this encounter Care Teams Photographic Intelligence Officer Relationship Specialty Start Date End Date Name, MD Joseph [address] [place] [address] PCP - General Family Medicine 01/21/22 documented as of this encounter
--- OUTSIDE RECORDS SUMMARY | 2024-11-05 16:44 | XMS_ITS | Encounter Summary ---
Author Organization [facility] [employer] [facility] Address [address] 7[address] [place] [address] Care Team Providers Care Laboratory Apparatus Glass Grinder Name Role Phone Name, Joseph KIM Primary Care Provider [phone] Encounter Details Date Type Department Care Team (Late Contact Info) Description 09/01/2022 Orders Only [address] [address] Cheryl García, RN Social History Tobacco Use Types Packs/Day Years Used Date Smoking Tobacco: Never Assessed Comments Unknown Sex and Gender Information Value [...] suspected to have Coronavirus/COVID-19? No / Unsure 08/24/2022 10:33 AM EST documented as of this encounter Plan of Treatment Upcoming Encounters Date Type Department Care Team (Late Contact Info) Description 11/29/2024 10:30 AM EDT Telemedicine [address] [address] Kaitlynn Landrum, SUNSHINE Pending Results Name Type Priority Associated Diagnoses Date /Time Type and screen Lab Routine 3 7:09 PM EST Red blood count Lab Routine 3 7:09 PM EST Type and screen Lab Routine 3 1:12 PM EDT Pheresis Platelets Lab Routine 2022 1:12 PM EDT Red blood count Lab Routine 3 1:12 PM EDT documented as of this encounter Procedures Procedure Name Priority Date/Time Associated Diagnosis Comments HIGH SENSITIVITY TROPONIN I Routine 03/20/2023 2:31 PM EDT URINALYSIS, COMPLETE, WITH REFLEX TO CULTURE Routine 03/20/2023 11:21 AM EDT DRUG MONITOR, PANEL 1, SCREEN, URINE Routine 03/20/2023 11:21 AM EDT COVID-19 ID NOW (BISHOP) Routine 03/20/2023 11:11 AM EDT HIGH SENSITIVITY TROPONIN I Routine 03/20/2023 11:11 AM EDT ETHANOL Routine 03/20/2023 11:11 AM EDT CBC WITH AUTO DIFFERENTIAL Routine 03/20/2023 11:11 AM EDT PROTHROMBIN TIME-INR Routine 03/20/2023 11:11 AM EDT B TYPE NATRIURETIC PEPTIDE (BNP) Routine 03/20/2023 11:11 AM EDT MAGNESIUM Routine 03/20/2023 11:11 AM EDT HEPATIC FUNCTION PANEL Routine 03/20/2023 11:11 AM EDT BASIC METABOLIC PANEL Routine 03/20/2023 11:11 AM EDT CBC Routine 12/09/2022 5:40 AM EDT BASIC METABOLIC PANEL, FASTING Routine 12/08/2022 5:58 AM EDT CBC WITH AUTO DIFFERENTIAL Routine 12/08/2022 5:58 AM EDT SLIDE REVIEW Routine 12/07/2022 4:40 PM EDT CBC WITH AUTO DIFFERENTIAL Routine 12/07/2022 4:40 PM EDT COVID-19 ID NOW (BISHOP) Routine 12/07/2022 1:41 PM EDT CBC WITH AUTO DIFFERENTIAL Routine 12/07/2022 1:25 PM EDT PHERESIS PLATELETS Routine 12/07/2022 1: 12 PM EDT RED BLOOD COUNT Routine 12/07/2022 1:12 PM EDT TYPE AND SCREEN Routine 12/07/2022 1:12 PM EDT RED BLOOD COUNT Routine 10/12/2022 7:09 PM EST TYPE AND SCREEN Routine 10/12/2022 7:09 PM EST SLIDE REVIEW Routine 10/12/2022 4:50 PM EST CBC WITH AUTO DIFFERENTIAL Routine 10/12/2022 4:50 PM EST B TYPE NATRIURETIC PEPTIDE (BNP) Routine 10/12/2022 4:50 PM EST documented in this encounter Results * High Sensitivity Troponin I (03/20/2023 2:31 PM EDT) Pathologist [facility] TROPONIN I HIGH SENSITIVITY 5.0 <3.5 - 17.0 ng/L [facility] Comment:The Bishop high sens itivity Troponin-I results should beused in conjunction with other diagnostic information suchas ECG, clinical observations and information, and patientsymptoms to aid in the diagnosis of [place]. 03/20/2023 2:31 PM EDT 03/20/2023 2:35 PM EDT us [facility] External Provider LAB BLO OD ORDERABLES Final Result [facility] [address] [place] [address] [phone] * (ABNORMAL) Drug Monitoring, Panel 1, Screen, Urine (03/20/2023 11:21 AM EDT) Pathologist [facility] Opiate Screen Urine Not Detected Not Detect [facility] Comment:Opiate cut-off is 30 0 ng/mL.Positive results are unconfirmed and should not be used fornon-medical purposes. Barbiturates, Urine Not Detected Not Detect [facility] Comment:Barbiturate cut-off is 200 ng/mL.Positive results are unconfirmed and should not be used fornon-medical purposes. Phencyclidine Screen Urine Not Detected Not Detect [facility] Comment:Phencyclidine cut-of f is 25 ng/mL.Positive results are unconfirmed and should not be used fornon-medical purposes. Amphetamine Screen Urine Not Detected Not Detect [facility] Comment:Amphetamine cut-off is 1000 ng/mL.Positive results are unconfirmed and should not be used fornon-medical purposes. Benzodiazepines Screen Urine Not Detected Not Detect [facility] Comment:Benzodiazepine cut-o ff is 200 ng/mL.Positive results are unconfirmed and should not be used fornon-medical purposes. Cocaine Screen Urine Not Detected Not Detect [facility] Comment:Cocaine cut-off is 3 00 ng/mL.Positive results are unconfirmed and should not be used fornon-medical purposes. Cannabinoid Screen Urine POSITIVE(A) Not Detect [facility] Comment:Cannabinoid cut-off is 50 ng/mL.Positive results are unconfirmed and should not be used fornon-medical purposes. FENTANYL URINE Not Detected Not Detect [facility] Comment:Fentanyl cut-off is 1 ng/mL.Positive results are unconfirmed and should not be used fornon-medical purposes. 03/20/2023 11:2 1 AM EDT 03/20/2023 11:53 AM EDT [facility] External Provider LAB URI NE ORDERABLES Final Result [facility] [address] [place] [address] [phone] * (ABNORMAL) Urinalysis, Complete, with Reflex to Culture (03/20/2023 11:21 AM EDT) Color Urine Yellow [facility] Appearance Urine Cloudy [facility] PH 5.5 5.0 - 9.0 [facility] Glucose Urine UA Negative Negative mg/dL [facility] Urine Blood Negative Negative [facility] Specific [place] - Urine 1.010 1.005 - 1.025 [facility] Urine Protein Negative Neg-Trace mg/dL [facility] Urine Ketones Negative Negative mg/dL [facility] Nitrite Urine Negative Negative [facility] Leukocyte Esterase Urine Trace(A) Negative [facility] RBC Urine 3-5(A) 0 - 2 /HPF [facility] Urine WBC 0-5 0 - 5 /HPF [facility] Urine Squamous Epithelial Cell 6-10 0 - 2 /HPF [facility] Urine Bacteria Trace None Seen [facility] Hyaline Casts, Urine 0-2 0 - 2 /LPF [facility] 03/20/2023 11:2 1 AM EDT 03/20/2023 11:24 AM EDT Narrative [facility] - 03/20/2023 11:30 AM EDT [id number], Clean Catch [facility] External Provider LAB URI NE ORDERABLES Final Result Performing Organization Address [facility]/ZIP Co de Phone Number [facility] [address] [place] [phone] * Ethanol (03/20/2023 11:11 AM EDT) ETHANOL (MG/DL) IN SER/PLAS <10 mg/dL [facility] Comment:Serum/plasma ethanol results are to be used formedical/treatment purposes only. 03/20/2023 11:1 1 AM EDT 03/20/2023 11:19 AM EDT [facility] External Provider LAB BLO OD ORDERABLES Final Result Performing Organization Address [facility] Co de Phone Number [facility] [address] [place] [phone] * High Sensitivity Troponin I (03/20/2023 11:11 AM EDT) [facility] TROPONIN I HIGH SENSITIVITY 4.9 <3.5 - 17.0 ng/L [facility] Comment:The [facility] high sens itivity Troponin-I results should beused in conjunction with other diagnostic information suchas ECG, clinical observations and information, and patientsymptoms to aid in the diagnosis of [place]. 03/20/2023 11:1 1 AM EDT 03/20/2023 11:19 AM EDT [facility] External Provider LAB BLO OD ORDERABLES Final Result Performing Organization Address [facility] de Phone Number [facility] [address] [place] [phone] * B Type Natriuretic Peptide (BNP) (03/20/2023 11:11 AM EDT) [facility] B Type Natriuretic Peptide 94 <100 pg/mL [facility] Comment:For those patients w ho are being treated with Natrecor(nesiritide, recombinant BNP), BNP testing should beperformed at least two hours post treatment in order toensure that only endogenous levels of BNP are detected. 03/20/2023 11:1 1 AM EDT 03/20/2023 11:19 AM EDT [facility] External Provider LAB BLO OD ORDERABLES Final Result Performing Organization Address [facility] Co de Phone Number [facility] [address] [place] [phone] * Magnesium (03/20/2023 11:11 AM EDT) [facility] Magnesium 2.1 1.6 - 2.6 mg/dL [facility] 03/20/2023 11:1 1 AM EDT 03/20/2023 11:19 AM EDT [facility] External Provider LAB BLO OD ORDERABLES Final Result [facility] [address] [place] [phone] * (ABNORMAL) Basic Metabolic Panel (03/20/2023 11:11 AM EDT) Sodium 145 135 - 145 mmol/L [facility] Potassium 4.4 3.3 - 5.1 mmol/L [facility] Chloride 109(H) 96 - 108 mmol/L [facility] Carbon Dioxide 29 22 - 29 mmol/L [facility] Anion Gap 11(L) 12 - 20 [facility] Urea Nitrogen (BUN) 15 9 - 16 mg/dL [facility] Creatinine, Serum 0.73 0.5 - 1.4 mg/dL [facility] Creatinine Clr Calc Pharmacy 63.7 [facility] Comment:Provided height and weight: 160.02 cm,80.2 kg.eGFR (calculated from the MDRD study equation) and eCrCl(calculated from the Cockcroft-Gault equation) are based ondifferent parameters and may not yield comparable results.If eCrCl result is absurd, please check patient'sheight/weight. Estimated Glomerular Filt Rate >60 [facility] Comment:NOTE: For -Am erican individuals, multiply the result by 1.210.Chronic Kidney Disease: Estimated GFR < 60 mL/min/[id number] Kidney Disease: Estimated GFR < 15 mL/min/1.73m2 Glucose 92 60 - 115 mg/dL [facility] Calcium 9.4 8.4 - 10.2 mg/dL [facility] 03/20/2023 11:1 1 AM EDT 03/20/2023 11:19 AM EDT [facility] External Provider LAB BLO OD ORDERABLES Final Result [facility] [address] [place] [phone] * (ABNORMAL) Hepatic Function Panel (03/20/2023 11:11 AM EDT) Bilirubin, Total 0.8 0.0 - 1.0 mg/dL [facility] Bilirubin, Direct 0.2 0.0 - 0.5 mg/dL [facility] Aspartate Amino Transferase 17 5 - 31 U/L [facility] Alanine Aminotransferase 12 0 - 31 U/L [facility] Total Protein 6.2(L) 6.5 - 8.0 g/dL [facility] Albumin Level 3.8 3.5 - 5.0 g/dL [facility] Alkaline Phosphatase 58 39 - 117 U/L [facility] 03/20/2023 11:1 1 AM EDT 03/20/2023 11:19 AM EDT us [facility] External Provider LAB BLO OD ORDERABLES Final Result [facility] [address] [place] [phone] * COVID-19 ID NOW (BISHOP) (03/20/2023 11:11 AM EDT) IDNOW SERIAL# [id number] [facility] COVID-19 TEST Negative Negative [facility] COVID-19 NOTE See Note [facility] Comment: Results are for the identification of SARS-CoV2 RNA. TheSARS-CoV2 RNA is generally detectable in respiratory samplesduring the acute phase of infection. Positive results areindicative of the presence of SARS-CoV-2 RNA; clinicalcorrelation with patient history and other diagnosticinformation is necessary to determine patient infectionstatus. Positive results do not rule out bacterial infectionor co- infection with other viruses.Testing facilities within the [facility] and itsterritories are required to report all positive results tothe appropriate public health authorities.Negative results should be treated as presumptive and, ifinconsistent with clinical signs and symptoms or necessaryfor patient management, should be tested with differentauthorized or cleared molecular tests. Negative results donot preclude SARS-CoV2 RNA infection and should not be usedas the sole basis for patient management decisions. Negativeresults should be considered in the context of a patient'srecent exposures, history and the presence of clinical signsand symptoms consistent with COVID-19.This test has been authorized by the FDA under an EmergencyUse Authorization (EUA) for use by authorized laboratories.Testing performed on the [employer] ID NOW utilizing NAAT. 03/20/2023 11:1 1 AM EDT 03/20/2023 11:18 AM EDT us [facility] Exter nal Provider LAB MOLECULAR DIAGNOSTICS ORDERABLES Final Result [facility] [address] [place] [phone] * (ABNORMAL) CBC auto differential (03/20/2023 11:11 AM EDT) White Blood Count 6.0 4.8 - 10.8 X10*3/uL [facility] Red Blood Count 3.33(L) 4.20 - 5.50 X10*6/uL [facility] Hemoglobin 10.0(L) 12.0 - 16.0 g/dl [facility] Hematocrit 32.1(L) 37.0 - 47.0 % [facility] Mean Corpuscular Volume 96.4 80.0 - 98.0 fL [facility] Mean Corpuscular Hemoglobin 30.0 27.0 - 33.0 pg [facility] Mean Corpuscular HGB Conc 31.2 31.0 - 35.0 g/dl [facility] Red Cell Distribution Width 15.0 11.0 - 16.0 % [facility] Platelet Count 71(L) 160 - 400 X10*3/uL [facility] Neutrophils Percent Auto 71.3 45 - 73 % [facility] Imm Gran Pct Auto 0.2 0.0 - 0.4 % [facility] Lymphocytes Percent Auto 14.5(L) 20 - 40 % [facility] Monocytes Percent Auto 9.6 2 - 11 % [facility] Eosinophils Percent Auto 3.7 0 - 4 % [facility] Basophils Percent Auto 0.7 0 - 2 % [facility] NRBC Pct Auto 0.0 0.0 - 0.2 /100WBC [facility] Neutrophils Absolute Auto 4.3 2.0 - 8.3 x10*3/uL [facility] Imm Gran Abs Auto 0.01 0.00 - 0.03 X10*3/uL [facility] Lymphocytes Absolute Auto 0.9(L) 1.2 - 4.9 X10*3/uL [facility] Monocytes Absolute Auto 0.6 0.1 - 1.2 X10*3/uL [facility] Eosinophils Absolute Auto 0.2 0.0 - 0.4 X10*3/uL [facility] Basophils Absolute Auto 0.0 0.0 - 0.2 X10*3/uL [facility] NRBC Abs Auto 0.000 0.0 - 0.012 X10*3/uL [facility] 03/20/2023 11:1 1 AM EDT 03/20/2023 11:19 AM EDT [facility] External Provider LAB BLO OD ORDERABLES Final Result Performing Organization Address City/State/[facility] Co de Phone Number [facility] [address] [place] [phone] * Prothrombin Time-INR (03/20/2023 11:11 AM EDT) Prothrombin Time 13.0 10.0 - 13.1 SEC [facility] INTERNATIONAL NORM RATIO 1.1 0.9 - 1.1 [facility] Comment:INTERNATIONAL NORMAL IZED RATIO (INR) REFERENCE RANGES Reference RangeFor patients not on anticoagulant therapy: 0.9 - 1.1INR ranges for oral anticoagulanttherapy:For prevention and treatment of venous thrombosis and pulmonary embolism: 2.0 - 3.0For acute myocardial infarction with aspirin therapy: 2.0 - 3.0For acute myocardial infarction without aspirin therapy: 3.0 - 4.0For patients with mechanical prosthetic heart valves: 2.5 - 3.5 03/20/2023 11:1 1 AM EDT 03/20/2023 11:19 AM EDT us [facility] External Provider LAB BLO OD ORDERABLES Final Result [facility] [address] [place] [phone] * (ABNORMAL) CBC (12/09/2022 5:40 AM EDT) White Blood Count 6.7 4.8 - 10.8 X10*3/uL [facility] Red Blood Count 2.88(L) 4.20 - 5.50 X10*6/uL [facility] Hemoglobin 7.0(LL) 12.0 - 16.0 g/dl [facility] Comment:Critical HGB sent by a secure message and confirmed byMERVIN MOSQUERA on 12/09/22 at 0726 by CODIE. Hematocrit 24.2(L) 37.0 - 47.0 % [facility] Mean Corpuscular Volume 84.0 80.0 - 98.0 fL [facility] Mean Corpuscular Hemoglobin 24.3(L) 27.0 - 33.0 pg [facility] Mean Corpuscular HGB Conc 28.9(L) 31.0 - 35.0 g/dl [facility] Red Cell Distribution Width 19.8(H) 11.0 - 16.0 % [facility] Platelet Count 59(L) 160 - 400 X10*3/uL [facility] NRBC Pct Auto 0.0 0.0 - 0.2 /100WBC [facility] NRBC Abs Auto 0.000 0.0 - 0.012 X10*3/uL [facility] 12/09/2022 5:40 AM EDT 12/09/2022 6:43 AM EDT us [facility] External Provider LAB BLO OD ORDERABLES Final Result [facility] [address] [place] [phone] * (ABNORMAL) CBC auto differential (12/08/2022 5:58 AM EDT) White Blood Count 8.5 4.8 - 10.8 X10*3/uL [facility] Red Blood Count 2.92(L) 4.20 - 5.50 X10*6/uL [facility] Hemoglobin 6.9(LL) 12.0 - 16.0 g/dl [facility] Comment:Critical HGB sent by a secure message and confirmed byYUDITH on 12/08/22 at 0846 by YAZAN. Hematocrit 24.2(L) 37.0 - 47.0 % [facility] Mean Corpuscular Volume 82.9 80.0 - 98.0 fL [facility] Mean Corpuscular Hemoglobin 23.6(L) 27.0 - 33.0 pg [facility] Mean Corpuscular HGB Conc 28.5(L) 31.0 - 35.0 g/dl [facility] Red Cell Distribution Width 19.7(H) 11.0 - 16.0 % [facility] Platelet Count 77(L) 160 - 400 X10*3/uL [facility] Neutrophils Percent Auto 77.9(H) 45 - 73 % [facility] Imm Gran Pct Auto 0.4 0.0 - 0.4 % [facility] Lymphocytes Percent Auto 8.6(L) 20 - 40 % [facility] Monocytes Percent Auto 12.5(H) 2 - 11 % [facility] Eosinophils Percent Auto 0.2 0 - 4 % [facility] Basophils Percent Auto 0.4 0 - 2 % [facility] NRBC Pct Auto 0.0 0.0 - 0.2 /100WBC [facility] Neutrophils Absolute Auto 6.7 2.0 - 8.3 x10*3/uL [facility] Imm Gran Abs Auto 0.03 0.00 - 0.03 X10*3/uL [facility] Lymphocytes Absolute Auto 0.7(L) 1.2 - 4.9 X10*3/uL [facility] Monocytes Absolute Auto 1.1 0.1 - 1.2 X10*3/uL [facility] Eosinophils Absolute Auto 0.0 0.0 - 0.4 X10*3/uL [facility] Basophils Absolute Auto 0.0 0.0 - 0.2 X10*3/uL [facility] NRBC Abs Auto 0.000 0.0 - 0.012 X10*3/uL [facility] 12/08/2022 5:58 AM EDT 12/08/2022 6:50 AM EDT us [facility] External Provider LAB BLO OD ORDERABLES Edited Result - Final [facility] [address] [place] [phone] * (ABNORMAL) Basic Metabolic Panel, Fasting (12/08/2022 5:58 AM EDT) Sodium 140 135 - 145 mmol/L [facility] Potassium 4.3 3.3 - 5.1 mmol/L [facility] Chloride 106 96 - 108 mmol/L [facility] Carbon Dioxide 24 22 - 29 mmol/L [facility] Anion Gap 14 12 - 20 [facility] Urea Nitrogen (BUN) 13 9 - 16 mg/dL [facility] Creatinine, Serum 0.73 0.5 - 1.4 mg/dL [facility] Creatinine Clr Calc Pharmacy 62.7 [facility] Comment:Provided height and weight: 160.02 cm,78.01 kg.eGFR (calculated from the MDRD study equation) and eCrCl(calculated from the Cockcroft-Gault equation) are based ondifferent parameters and may not yield comparable results.If eCrCl result is absurd, please check patient'sheight/weight. Estimated Glomerular Filt Rate >60 [facility] Comment:NOTE: For -Am erican individuals, multiply the result by 1.210.Chronic Kidney Disease: Estimated GFR < 60 mL/min/[id number] Kidney Disease: Estimated GFR < 15 mL/min/1.73m2 Glucose Fasting 110(H) 60 - 99 mg/dL [facility] Comment:A fasting glucose fr om 100-125 mg/dl is considered impaired(pre-diabetes). Calcium 8.2(L) 8.4 - 10.2 mg/dL [facility] 12/08/2022 5:58 AM EDT 12/08/2022 6:58 AM EDT [facility] External Provider LAB BLO OD ORDERABLES Final Result Performing Organization Address [facility]/ZIP Co de Phone Number [facility] [address] [place] [phone] * Slide Review (12/07/2022 4:40 PM EDT) Slide Review VERIFIED [facility] 12/07/2022 4:40 PM EDT 12/07/2022 4:48 PM EDT [facility] External Provider LAB BLO OD ORDERABLES Final Result Performing Organization Address [facility] de Phone Number [facility] [address] [place] [phone] * (ABNORMAL) CBC auto differential (12/07/2022 4:40 PM EDT) White Blood Count 7.5 4.8 - 10.8 X10*3/uL [facility] Red Blood Count 3.04(L) 4.20 - 5.50 X10*6/uL [facility] Hemoglobin 7.3(L) 12.0 - 16.0 g/dl [facility] Hematocrit 25.3(L) 37.0 - 47.0 % [facility] Mean Corpuscular Volume 83.2 80.0 - 98.0 fL [facility] Mean Corpuscular Hemoglobin 24.0(L) 27.0 - 33.0 pg [facility] Mean Corpuscular HGB Conc 28.9(L) 31.0 - 35.0 g/dl [facility] Red Cell Distribution Width 19.8(H) 11.0 - 16.0 % [facility] Platelet Count 70(L) 160 - 400 X10*3/uL [facility] Neutrophils Percent Auto 89.8(H) 45 - 73 % [facility] Imm Gran Pct Auto 0.3 0.0 - 0.4 % [facility] Lymphocytes Percent Auto 5.0(L) 20 - 40 % [facility] Monocytes Percent Auto 3.4 2 - 11 % [facility] Eosinophils Percent Auto 0.8 0 - 4 % [facility] Basophils Percent Auto 0.7 0 - 2 % [facility] NRBC Pct Auto 0.0 0.0 - 0.2 /100WBC [facility] Neutrophils Absolute Auto 6.8 2.0 - 8.3 x10*3/uL [facility] Imm Gran Abs Auto 0.02 0.00 - 0.03 X10*3/uL [facility] Lymphocytes Absolute Auto 0.4(L) 1.2 - 4.9 X10*3/uL [facility] Monocytes Absolute Auto 0.3 0.1 - 1.2 X10*3/uL [facility] Eosinophils Absolute Auto 0.1 0.0 - 0.4 X10*3/uL [facility] Basophils Absolute Auto 0.1 0.0 - 0.2 X10*3/uL [facility] NRBC Abs Auto 0.000 0.0 - 0.012 X10*3/uL [facility] 12/07/2022 4:40 PM EDT 12/07/2022 4:48 PM EDT us [facility] External Provider LAB BLO OD ORDERABLES Edited Result - Final Performing Organization Address [facility] Co de Phone Number [facility] [address] [place] [address] [phone] * COVID-19 ID NOW (BISHOP) (12/07/2022 1:41 PM EDT) IDNOW SERIAL# [id number] [facility] COVID-19 TEST Negative Negative [facility] Comment:[place] [id number] COVID-19 NOTE See Note [facility] Comment: Results are for the identification of SARS-CoV2 RNA. TheSARS-CoV2 RNA is generally detectable in respiratory samplesduring the acute phase of infection. Positive results areindicative of the presence of SARS-CoV-2 RNA; clinicalcorrelation with patient history and other diagnosticinformation is necessary to determine patient infectionstatus. Positive results do not rule out bacterial infectionor co- infection with other viruses.Testing facilities within the [facility] and itsterritories are required to report all positive results tothe appropriate public health authorities.Negative results should be treated as presumptive and, ifinconsistent with clinical signs and symptoms or necessaryfor patient management, should be tested with differentauthorized or cleared molecular tests. Negative results donot preclude SARS-CoV2 RNA infection and should not be usedas the sole basis for patient management decisions. Negativeresults should be considered in the context of a patient'srecent exposures, history and the presence of clinical signsand symptoms consistent with COVID-19.This test has been authorized by the FDA under an EmergencyUse Authorization (EUA) for use by authorized laboratories.Testing performed on the [facility] ID NOW utilizing NAAT. 12/07/2022 1:41 PM EDT 12/07/2022 1:58 PM EDT [facility] Exter nal Provider LAB MOLECULAR DIAGNOSTICS ORDERABLES Final Result Performing Organization Address [facility] Co de Phone Number [facility] [address] [place] [address] [phone] * (ABNORMAL) CBC auto differential (12/07/2022 1:25 PM EDT) White Blood Count 5.6 4.8 - 10.8 X10*3/uL [facility] Red Blood Count 3.15(L) 4.20 - 5.50 X10*6/uL [facility] Hemoglobin 7.5(L) 12.0 - 16.0 g/dl [facility] Hematocrit 26.2(L) 37.0 - 47.0 % [facility] Mean Corpuscular Volume 83.2 80.0 - 98.0 fL [facility] Mean Corpuscular Hemoglobin 23.8(L) 27.0 - 33.0 pg [facility] Mean Corpuscular HGB Conc 28.6(L) 31.0 - 35.0 g/dl [facility] Red Cell Distribution Width 19.8(H) 11.0 - 16.0 % [facility] Platelet Count 69(L) 160 - 400 X10*3/uL [facility] Neutrophils Percent Auto 76.4(H) 45 - 73 % [facility] Imm Gran Pct Auto 0.2 0.0 - 0.4 % [facility] Lymphocytes Percent Auto 11.9(L) 20 - 40 % [facility] Monocytes Percent Auto 9.0 2 - 11 % [facility] Eosinophils Percent Auto 1.6 0 - 4 % [facility] Basophils Percent Auto 0.9 0 - 2 % [facility] NRBC Pct Auto 0.0 0.0 - 0.2 /100WBC [facility] Neutrophils Absolute Auto 4.3 2.0 - 8.3 x10*3/uL [facility] Imm Gran Abs Auto 0.01 0.00 - 0.03 X10*3/uL [facility] Lymphocytes Absolute Auto 0.7(L) 1.2 - 4.9 X10*3/uL [facility] Monocytes Absolute Auto 0.5 0.1 - 1.2 X10*3/uL [facility] Eosinophils Absolute Auto 0.1 0.0 - 0.4 X10*3/uL [facility] Basophils Absolute Auto 0.1 0.0 - 0.2 X10*3/uL [facility] NRBC Abs Auto 0.000 0.0 - 0.012 X10*3/uL [facility] 12/07/2022 1:25 PM EDT 12/07/2022 1:27 PM EDT [facility] External Provider LAB BLO OD ORDERABLES Final Result Performing Organization Address [facility] de Phone Number [facility] [address] [place] [phone] * (ABNORMAL) B Type Natriuretic Peptide (BNP) (10/12/2022 4:50 PM EST) B Type Natriuretic Peptide 135(H) <100 pg/mL [facility] Comment:For those patients w ho are being treated with Natrecor(nesiritide, recombinant BNP), BNP testing should beperformed at least two hours post treatment in order toensure that only endogenous levels of BNP are detected. 10/12/2022 4:50 PM EST 10/12/2022 6:16 PM EST [facility] External Provider LAB BLO OD ORDERABLES Final Result Performing Organization Address [facility] de Phone Number [facility] [address] [place] [phone] * Slide Review (10/12/2022 4:50 PM EST) Slide Review VERIFIED [facility] 10/12/2022 4:50 PM EST 10/12/2022 5:10 PM EST [facility] External Provider LAB BLO OD ORDERABLES Final Result Performing Organization Address [facility] Co de Phone Number [facility] [address] [place] [phone] * (ABNORMAL) CBC auto differential (10/12/2022 4:50 PM EST) White Blood Count 5.5 4.8 - 10.8 X10*3/uL [facility] Red Blood Count 2.42(L) 4.20 - 5.50 X10*6/uL [facility] Hemoglobin 4.8(LL) 12.0 - 16.0 g/dl [facility] Comment:Results of HGB, HCT called to and read back by Roseline 10/12/22 at 1730 by GRIS. Hematocrit 18.5(LL) 37.0 - 47.0 % [facility] Mean Corpuscular Volume 76.4(L) 80.0 - 98.0 fL [facility] Mean Corpuscular Hemoglobin 19.8(L) 27.0 - 33.0 pg [facility] Mean Corpuscular HGB Conc 25.9(L) 31.0 - 35.0 g/dl [facility] Red Cell Distribution Width 17.9(H) 11.0 - 16.0 % [facility] Platelet Count 54(L) 160 - 400 X10*3/uL [facility] Neutrophils Percent Auto 67.6 45 - 73 % [facility] Imm Gran Pct Auto 0.2 0.0 - 0.4 % [facility] Lymphocytes Percent Auto 20.0 20 - 40 % [facility] Monocytes Percent Auto 9.9 2 - 11 % [facility] Eosinophils Percent Auto 1.8 0 - 4 % [facility] Basophils Percent Auto 0.5 0 - 2 % [facility] NRBC Pct Auto 0.0 0.0 - 0.2 /100WBC [facility] Neutrophils Absolute Auto 3.7 2.0 - 8.3 x10*3/uL [facility] Imm Gran Abs Auto 0.01 0.00 - 0.03 X10*3/uL [facility] Lymphocytes Absolute Auto 1.1(L) 1.2 - 4.9 X10*3/uL [facility] Monocytes Absolute Auto 0.5 0.1 - 1.2 X10*3/uL [facility] Eosinophils Absolute Auto 0.1 0.0 - 0.4 X10*3/uL [facility] Basophils Absolute Auto 0.0 0.0 - 0.2 X10*3/uL [facility] NRBC Abs Auto 0.000 0.0 - 0.012 X10*3/uL [facility] 10/12/2022 4:50 PM EST 10/12/2022 5:10 PM EST us [facility] External Provider LAB BLO OD ORDERABLES Edited Result - Final [facility] [address] [place] [phone] documented in this encounter Visit Diagnoses Not on filedocumented in this encounter Care Teams Laboratory Apparatus Glass Grinder Relationship Specialty Start Date End Date Name, MD Joseph [address] [place] [id number] PCP - General Family Medicine 01/21/22 documented as of this encounter
--- OUTSIDE RECORDS SUMMARY | 2024-11-05 16:44 | XMS_ITS | Continuity of Care Document ---
Author Name [facility] Organization [facility] Care Team Providers Care Supervisor Paper Machine Name Role Phone [facility] Unavailable Unavailable Social History Combined list of available smoking, tobacco, and other social history from [facility] and [facility] facilities. Social History Type Response Date Comment Sourc e This section is an empty social history section. [facility]
--- OUTSIDE RECORDS SUMMARY | 2024-11-05 16:44 | XMS_ITS | Clinical Summary ---
Author Organization [email or web address] Address [address] [place] [address] [address] [place] [address] Care Team Providers Care Wood Turning Lathe Operator Name Role Phone Name, Joseph KIM Primary Care Provider [phone] Allergies Active Allergy Reactions Criticality Noted Date Comments Gcnufmczrd-Lcpdouv-Wluojwtfxi 2017 Penicillin G 08/24/2022 Penicillin V Hives,Rash Low 04/04/2008 Penicillins Hives 12/23/2022 Sulfa Antibiotics Hives 01/19/2016 Sulfacetamide Diarrhea,Dermatitis 04/04/2008 Sulfamethoxazole 08/24/2022 Medications albuterol (2.5 MG/3ML) 0.083% nebulizer solution Inhale 3 mL every 6 (six) hours. 01/22/20 22 Active Blood Pressure kit USE TO CHECK BLOOD PRESSURE TWICE DAILY 02/10/20 22 Active Biotin 5 MG/ML liquid Biotin daily (dose not confirmed) Active vitamin A 2400 MCG (8000 UT) capsule Vitamin A daily (dose not confirmed) Active cyanocobalamin (Vitamin B-12) 100 MCG tablet Take 100 mcg by mouth Once per day. Active fluticasone (Flovent) 110 MCG/ACT inhalerIndicat ions:Pulmonary emphysema, unspecified emphysema type (CMS/HCC) Inhale 1 puff in the morning and at bedtime. Rinse mouth with water after use to reduce aftertaste and incidence of candidiasis. Do not swallow. 12 g 11 02/23/20 24 025 Active metoprolol succinate XL (Toprol-XL) 25 MG 24 hr tablet TAKE 1 TABLET BY MOUTH EVERY DAY 90 tablet 1 05/22/20 24 Active HYDROcodone-ac etaminophen (Levasy) 10-325 MG tabletIndicati ons:Chronic pain syndrome Take 1 tablet by mouth every 6 (six) hours if needed for severe pain for up to 28 days. 112 tablet 06/25/20 24 Active pantoprazole (ProtoNix) 40 MG EC tablet Take 1 tablet by mouth before breakfast. 06/18/20 24 Active cholecalcifero l (Vitamin D-3) 25 MCG (1000 UT) tablet Take 1 tablet by mouth Once per day. Active ferrous gluconate (Fergon) 324 (38 Fe) MG tabletIndicati ons:Iron deficiency anemia, unspecified iron deficiency anemia type Take 1 tablet (324 mg) by mouth with breakfast. 30 tablet 11 06/26/20 24 025 Active naloxone (Narcan) 4 mg/0.1 mL nasal sprayIndicatio ns:Chronic pain syndrome Administer 1 spray (4 mg) into affected nostril(s) if needed for opioid reversal. 2 each 2 06/28/20 24 Active albuterol 108 (90 Base) MCG/ACT inhaler INHALE 2 PUFFS BY MOUTH EVERY 4 HOURS IF NEEDED 36 g 1 07/22/20 24 Active ondansetron (Zofran) 4 MG tabletIndicati ons:Chronic pain syndrome TAKE 1 TABLET BY MOUTH EVERY 8 HOURS 20 tablet 09/09/20 24 Active ALPRAZolam (Xanax) 0.5 MG tabletIndicati ons:Chronic pain syndrome Take 1 tablet (0.5 mg) by mouth every 8 (eight) hours for 28 days. 84 tablet 10/08/19 25 Active oxyCODONE-acet aminophen (Percocet) 10-325 MG tabletIndicati ons:Chronic pain syndrome Take 1 tablet by mouth every 6 (six) hours if needed for severe pain for up to 28 days. Do not start before October 17, 2024. 112 tablet 10/17/19 25 025 Active ALPRAZolam (Xanax) 0.5 MG tabletIndicati ons:Chronic pain syndrome Take 1 tablet (0.5 mg) by mouth every 8 (eight) hours for 28 days. Do not start before September 07, 2024. 84 tablet 09/07/20 24 025 Discontinued(Re order (will not trigger notification to Pharmacy)) oxyCODONE-acet aminophen (Percocet) 10-325 MG tabletIndicati ons:Chronic pain syndrome Take 1 tablet by mouth every 6 (six) hours if needed for severe pain for up to 28 days. Do not start before September 19, 2024. 112 tablet 09/19/19 25 025 Discontinued(Re order (will not trigger notification to Pharmacy)) oxyCODONE-acet aminophen (Percocet) 10-325 MG tabletIndicati ons:Chronic pain syndrome Take 1 tablet by mouth every 6 (six) hours if needed for severe pain for up to 28 days. Do not start before October 17, 2024. 112 tablet 10/17/19 25 025 Discontinued(Re order (will not trigger notification to Pharmacy)) Active Problems Problem Noted Date Diagnosed Date Acute pain of right lower extremity 09/05/2023 09/05/2023 Chronic ITP (idiopathic thrombocytopenia) 202209/05/2023 Left radial head fracture 09/05/20232022 Fracture of proximal end of left ulna 09/05/2023 09/05/2023 Dislocation of left radial head 09/05/2023 09/05/2023 SOB (shortness of breath) 09/05/20232022 Anemia 08/23/2022 Combined systolic and diastolic congestive heart failure 03/08/2021 Overview (03/28/2023): Cardiomyopathy with EF of 40-45%. [place] [facility] [place] and she did NOT have significant CAD. She has non ischemic cardiomyopathy Aortic valve disorder 03/08/2021 Overview (03/01/2023): Last Assessment & Plan: She had at least moderate aortic regurgitation I am ordering an echo to evaluate this. Also EF is significantly reduced if she has wall motion abnormalities more than likely I will suggest cardiac catheterization Emphysema lung 03/08/2021 Overview (09/05/2023): Last Assessment & Plan: Shortness of breath is probably in large part due to COPD she has poor breath sounds and air entry and is an exheavy smoker. I am going to send her to Dr. Briones for an evaluation. 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 Next colonoscopy 5 years. Gallstones 07/21/2009 Overview (03/01/2023): Incidental finding on sonogram 07/20/2009. GI bleed 06/15/2009 Overview (09/05/2023): Severe anemia 2021 requiring transfusion. 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 ischemic colitis versus due to NSAID) - biopsies showed acute erosive colitis. 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 Migraine 04/04/2008 Skin tag 04/04/2008 Resolved Problems Problem Noted Date Diagnosed Date Resolved Date Angina pectoris 09/05/2023 09/05/2023 09/05/2023 Ischemic cardiomyopathy 09/05/2023 09/05/2023 1205/2023 Peptic ulcer disease 03/01/2023 023 Mild asthma 10/20/2015 03/28/2023 Heartburn 04/04/2008 03/28/2023 Overview (03/01/2023): H/O PUD Encounters Date Type Department Care Team Description 11/05/2024 Orders Only GENERIC EXTERNAL DATA DEPARTMENT Provider, Generic External Data 11/05/2024 Telephone [facility] [address] [place] [address] Ara Cantor, SUNSHINE 10/15/2024 Telephone [facility] [address] [place] [address] Joseph Magana MD Med Refill 10/15/2024 Refill [facility] [address] [place] [address] NameJoseph MD Chronic pain syndrome 10/08/2024 Telephone [facility] [address] [place] [address] Joseph Magana MD Med Refill 10/08/2024 Refill [facility] [address] [place] [address] Joseph Magana MD Chronic pain syndrome 10/08/2024 Refill [facility] [address] [place] [address] NameJoseph MD Chronic pain syndrome 09/30/2024 Telephone [facility] [address] [place] [address] Joseph Magana MD Medication Question 09/17/2024 Telephone [facility] [address] [place] [address] Joseph Magana MD 09/17/2024 Telephone [facility] [address] [place] [address] Joseph Magana MD 09/17/2024 Telephone [facility] [address] [place] [address] Joseph Magana MD Nurse Triage 09/13/2024 1:30 PM EST Telemedicine [facility] [address] [facility] [place] [address] Kaitlynn Landrum, analytical clerk pain syndrome 09/13/2024 Refill [facility] [address] [facility] [place] [address] Kaitlynn Landrum, analytical clerk pain syndrome 09/13/2024 Travel 09/13/2024 Telephone [facility] [address] [facility] [place] [address] Kaitlynn Landrum, RN Recommend AUTO FLEET MANAGER Tele Tier 2 09/09/2024 Refill [facility] [address] [place] [address] NameJoseph MD Chronic pain syndrome 09/06/2024 Orders Only [facility] [address] [place] [address] NameJoseph MD Iron deficiency anemia, unspecified iron deficiency anemia type 08/30/2024 Orders Only [facility] [address] [place] [address] NameJoseph MD Iron deficiency anemia, unspecified iron deficiency anemia type 08/23/2024 Orders Only [facility] [address] [place] [address] NameJoseph MD Iron deficiency anemia, unspecified iron deficiency anemia type 08/22/2024 Refill [facility] [address] [place] [address] NameJoseph MD Chronic pain syndrome 08/22/2024 Refill [facility] [place] [address] NameJoseph MD Chronic pain syndrome 08/20/2024 Telephone [facility] [address] [place] [address] NameJoseph MD 08/16/2024 Orders Only [facility] [address] [place] [address] NameJoseph MD Iron deficiency anemia, unspecified iron deficiency anemia type 08/09/2024 Telephone [facility] [address] [place] [address] NameJoseph MD No Show (Patient no show for HDF ) 08/07/2024 Orders Only GENERIC EXTERNAL DATA DEPARTMENT Provider, Generic External Data 08/07/2024 Telephone [facility] [address] [place] [address] Rivka Faulkner MA Chart Prep 08/07/2024 Telephone [facility] [address] [place] [address] Irena Pacheco RN 08/05/2024 Refill [facility] [address] [place] [address] Name, MD Joseph Chronic pain syndrome from Last 3 Months Immunizations Name Administration Dates Next Due Influenza Whole 07/04/2006 Influenza injectable quadriv alent IIV4 with preservative 08/17/2016 Influenza injectable quadrivalent preservative f ree 10/20/2015 Influenza, IIV3, injectable 06/21/2012, 1 Influenza, trivalent, adjuvanted 06/21/2012,04/2011 Moderna Covid-19 Vaccine 12+ 11/01/2021,10/04/19 22 Pneumococcal Polysaccharide PPSV23 02/10/2010 Pneumococcal, Unspecified 02/10/2010 TD (adult), 2 Lf tetanus tox oid, preservative free, adsorbed 11/18/2019 Social History Tobacco Use Types Packs/Day Years Used Date Smoking Tobacco: Former Cigarettes Q uit: 2000 Smokeless Tobacco: Never Tobacco Cessation:Counseling Given: Not Answered Alcohol Use Standard Drinks/Week Comments Not Currently [...] Orientation Straight 07/18/2022 10 :29 AM EDT Last Filed Vital Signs Vital Sign Reading Time Taken Comments Blood Pressure 107/62 06/26/2024 3:05 PM EDT Pulse 104 06/26/2024 3:05 PM EDT Temperature 36.3 ??C (97.3 ??F) 06/26/2024 3:05 PM ED T Respiratory Rate 20 06/26/2024 3:05 PM EDT Oxygen Saturation 94% 06/26/2024 3:05 PM EDT Inhaled Oxygen Concentration - - Weight 78 kg (172 lb) 06/26/2024 3:05 PM EDT Height 160 cm (5' 3 ) 06/26/2024 3:05 PM EDT Body Mass Index 30.47 06/26/2024 3:05 PM EDT Plan of Treatment Upcoming Encounters Date Type Department Care Team (Late st Contact Info) Description 11/29/2024 10:30 AM EDT Telemedicine [facility] [address] [place] [phone] Kaitlynn Landrum, RN Health Maintenance Due Date Last Done Comments Alcohol/Substance Use Screening 1957 Hepatitis C Screening 1962 Zoster Vaccines (1 of 2) 1994 Pneumococcal Vaccine: 50+ Years (2 of 2 - PCV) 02/10/2011 02/10/2010, 02/10/2010 RSV Patients and Patients Aged 60 years or older (1 - 1-dose 75+ series) 11/18/2019 DTaP/Tdap/Td Vaccines (1 - Tdap) 11/19/2019 11/18/2019 SDOH Screening 03/27/2024 03/27/2023 COVID-19 Vaccine (3 - 2024-25 season) 2024 11/01/2021, 10/04/2021 Influenza Vaccine (#1) 2024 6, 10/20/2015, 06/21/2012, Additional history exists Depression Screening 01/29/2025 01/30/2024, 01/30/20 24 Tobacco Screening 06/26/2025 06/26/2024 HIB Vaccines Aged Out No longer eligi ble based on patient's age to complete this topic HPV Vaccines Aged Out No longer eligi ble based on patient's age to complete this topic Hepatitis A Vaccines Aged Out No long er eligible based on patient's age to complete this topic Hepatitis B Vaccines Aged Out No long er eligible based on patient's age to complete this topic IPV Vaccines Aged Out No longer eligi ble based on patient's age to complete this topic Meningococcal Vaccine Aged Out No natty nusrat eligible based on patient's age to complete this topic RSV under 20 months Aged Out No longe r eligible based on patient's age to complete this topic Rotavirus Vaccines Aged Out No longer eligible based on patient's age to complete this topic Procedures Procedure Name Priority Date/Time Associated Diagnosis Comments XR CHEST 2 VIEWS Routine 11/05/2024 1:28 PM EST RED BLOOD COUNT Routine 11/05/2024 1:04 PM EST TYPE AND SCREEN Routine 11/05/2024 1:04 PM EST SLIDE REVIEW Routine 11/05/2024 1:04 PM EST BASIC METABOLIC PANEL Routine 11/05/2024 1:04 PM EST CBC WITH AUTO DIFFERENTIAL Routine 11/05/2024 1:04 PM EST SARS COV2/INFLUENZA A/B AND RSV RNA QL NAAT Routine 11/05/2024 1:04 PM EST SLIDE REVIEW Routine 08/07/2024 3:08 PM EST CBC WITH AUTO DIFFERENTIAL Routine 08/07/2024 3:08 PM EST from Last 3 Months Results * XR Chest 2 Views (11/05/2024 1:28 PM EST) Anatomical Region Laterality Modality Chest Radiographic Ewelina ging 11/05/2024 1:28 PM EST Narrative 11/05/2024 2:15 PM EST ? [facility] ?[address] ?[place] [address] ?XRay Report ? Signed ? Patient: Dustin,Susan ?MR#: [id number] ?? 7 ? : 1945 ?Acct:[id number] ? Age/Sex: 78 / F ?ADM Date: 11/05/24 ? Loc: HO.ED ? Attending Dr: ? Ordering Physician: Mounika Owens MD ?? Date of Service: 11/05/24 ?? Procedure(s): XR chest 2V ?? Accession Number(s): [id number] ? cc: Mounika Owens MD; Name,Joseph KIM ? EXAMINATION: ?? XR CHEST ? CLINICAL INFORMATION: ?? SOB ? COMPARISON: ?? 06/12/2024. 05/09/2024. ? TECHNIQUE: ?? 2 views of the chest were obtained. ? FINDINGS: ?? There is cardiac enlargement. Mediastinal and hilar contours are ?? normal. Aortic mural calcification. ? The lungs are highly hyperaerated, however clear bilaterally. There is ?? no pneumothorax or pleural effusion. ? There is no focal osseous or soft tissue abnormality. Mild shoulder ?? joint degenerative changes. ? XR/XR chest 2V ?? IMPRESSION: ?? Cardiomegaly. No active pulmonary disease. ? Electronically signed by: ??Savage Everett MD ??11/05/2024 02:12 PM EST RP ? Dictated By: ?Savage Everett MD ? Signed By: ?<Electronically signed by Savage Everett MD in OV> ?11/05/24 1412 ? DD/ 1328 ? TD/TT: 11/05/24 1345 ? Php Architect: ? Procedure Note Deanna, Image - 11/05/[address] [address] XRay Report Signed Patient: Susan ChanMR#: [id number] 7 : 5Acct:[id number] Age/Sex: 78 / FADM Date: 11/05/24 Loc: HO.ED Attending Dr: Ordering Physician: Mounika Owens MD Date of Service: 11/05/24 Procedure(s): XR chest 2V Accession Number(s): [id number] cc: Mounika Owens MD; Name,Joseph KIM EXAMINATION: XR CHEST CLINICAL INFORMATION: SOB COMPARISON: 06/12/2024. 05/09/2024. TECHNIQUE: 2 views of the chest were obtained. FINDINGS: There is cardiac enlargement. Mediastinal and hilar contours are normal. Aortic mural calcification. The lungs are highly hyperaerated, however clear bilaterally. There is no pneumothorax or pleural effusion. There is no focal osseous or soft tissue abnormality. Mild shoulder joint degenerative changes. XR/XR chest 2V IMPRESSION: Cardiomegaly. No active pulmonary disease. Electronically signed by: Savage Everett MD 11/05/2024 02:12 PM EST Dictated By: Savage Everett MD Signed By: <Electronically signed by Savage Everett MD in OV> 11/05/24 1412 DD/ 1328 TD/TT: 11/05/24 1345 Php Architect: us [facility] External Provider IMG XR PROCEDURES Edited Result - Final * Slide Review (11/05/2024 1:04 PM EST) Only the most recent of2 resultswithin the time period is included. Slide Review VERIFIED [facility] 11/05/2024 1:04 PM EST 11/05/2024 1:07 PM EST Generic External Data Provider LAB BLOOD ORDERAB LES Final Result [facility] [address] [place] [phone] * SARS-CoV-2 RNA, Influenza A/B, and RSV RNA, Ql NAAT (11/05/2024 1:04 PM EST) Pathologist [facility] Influenza A PCR NEGATIVE Negative [facility] Influenza B PCR NEGATIVE Negative [facility] Resp Syncy Virus RNA Qual PCR NEGATIVE Negative [facility] SARS COV2 PCR NEGATIVE Negative [facility] Comment:All test results mus t be correlated with clinical findings.Negative results do not preclude SARS-CoV2, influenza Avirus, influenza B virus and/or RSV infectionand should not be used as the sole basis for treatment orother patient management decisions. Negative results must becombined with clinical observations, patient history, andepidemiological information.This test has not been evaluated for monitoring treatment ofinfection.This test has been authorized by the FDA under an EmergencyUse Authorization (EUA) for use by authorized laboratories.Testing performed on the [employer] GeneXpert utilizingreal-time RT-PCR.All SARS CoV2 and positive influenza A/B results arereported to [facility]. 11/05/2024 1:04 PM EST 11/05/2024 1:07 PM EST us Generic External Data Provider LAB MICROBIOLOGY - GENERAL ORDERABLES Final Result [facility] [address] [place] [address] [phone] * (ABNORMAL) CBC auto differential (11/05/2024 1:04 PM EST) Only the most recent of2 resultswithin the time period is included. Pathologist [facility] White Blood Count 5.4 4.8 - 10.8 X10*3/uL [facility] Red Blood Count 2.52(L) 4.20 - 5.50 X10*6/uL [facility] Hemoglobin 7.3(L) 12.0 - 16.0 g/dl [facility] Hematocrit 25.1(L) 37.0 - 47.0 % [facility] Mean Corpuscular Volume 99.6(H) 80.0 - 98.0 fL [facility] Mean Corpuscular Hemoglobin 29.0 27.0 - 33.0 pg [facility] Mean Corpuscular HGB Conc 29.1(L) 31.0 - 35.0 g/dl [facility] Red Cell Distribution Width 14.1 11.0 - 16.0 % [facility] Platelet Count 64(L) 160 - 400 X10*3/uL [facility] Neutrophils Percent Auto 80.8(H) 45 - 73 % [facility] Imm Gran Pct Auto 0.6(H) 0.0 - 0.4 % [facility] Lymphocytes Percent Auto 10.1(L) 20 - 40 % [facility] Monocytes Percent Auto 6.7 2 - 11 % [facility] Eosinophils Percent Auto 1.1 0 - 4 % [facility] Basophils Percent Auto 0.7 0 - 2 % [facility] NRBC Pct Auto 0.0 0.0 - 0.2 /100WBC [facility] Neutrophils Absolute Auto 4.3 2.0 - 8.3 x10*3/uL [facility] Imm Gran Abs Auto 0.03 0.00 - 0.03 X10*3/uL [facility] Lymphocytes Absolute Auto 0.5(L) 1.2 - 4.9 X10*3/uL [facility] Monocytes Absolute Auto 0.4 0.1 - 1.2 X10*3/uL [facility] Eosinophils Absolute Auto 0.1 0.0 - 0.4 X10*3/uL [facility] Basophils Absolute Auto 0.0 0.0 - 0.2 X10*3/uL [facility] NRBC Abs Auto 0.000 0.0 - 0.012 X10*3/uL [facility] 11/05/2024 1:04 PM EST 11/05/2024 1:07 PM EST us Generic External Data Provider LAB BLOOD ORDERAB LES Edited Result - Final [facility] [address] [place] [address] [phone] * Red blood count (11/05/2024 1:04 PM EST) Red Blood Cells: [id number] OP RC TRANSFUSED 11/05/24 1513 [facility] 11/05/2024 1:04 PM EST 11/05/2024 1:16 PM EST Generic External Data Provider LAB BLOOD ORDERAB LES Final Result Performing Organization Address [facility] de Phone Number [facility] [address] [place] [address] [phone] * Type and screen (11/05/2024 1:04 PM EST) Blood Type OP [facility] Antibody Screen NEGATIVE [facility] 11/05/2024 1:04 PM EST 11/05/2024 1:16 PM EST Narrative [facility] - 11/05/2024 4:14 PM EST Results at Issue Units as of 11/05/24 1514 ...Test View Group: Most Recent HGB ?? HCT Results ?LABORATORYDate ?Time Test ?Result ?Flag Normal Range11/05/24 1304 HGB ?7.3 ?# L ??12.0-16.0 g/dl11/05/24 1304 HCT ?25.1 ?# L ??37.0-47.0 % Yes us Generic External Data Provider LAB BLOOD BANK TE ST ORDERABLES Final Result Performing Organization Address [facility] Co de Phone Number [facility] [address] [place] [address] [phone] * (ABNORMAL) Basic Metabolic Panel (11/05/2024 1:04 PM EST) Sodium 146(H) 135 - 145 mmol/L [facility] Potassium 4.4 3.3 - 5.1 mmol/L [facility] Chloride 112(H) 96 - 108 mmol/L [facility] Carbon Dioxide 28 22 - 29 mmol/L [facility] Anion Gap 10(L) 12 - 20 [facility] Urea Nitrogen (BUN) 23(H) 9 - 16 mg/dL [facility] Creatinine, Serum 0.68 0.5 - 1.4 mg/dL [facility] Creatinine Clr Calc Pharmacy 66.1 [facility] Comment:Provided height and weight: 160.02 cm,77.564 kg.eGFR (calculated from the MDRD study equation) and eCrCl(calculated from the Cockcroft-Gault equation) are based ondifferent parameters and may not yield comparable results.If eCrCl result is absurd, please check patient'sheight/weight. Estimated Glomerular Filt Rate >60 [facility] Comment:Chronic Kidney Disea se: Estimated GFR < 60 mL/min/1.86u0Lnorhj Kidney Disease: Estimated GFR < 15 mL/min/1.73m2 Glucose 98 60 - 115 mg/dL [facility] Calcium 8.5 8.4 - 10.2 mg/dL [facility] 11/05/2024 1:04 PM EST 11/05/2024 1:07 PM EST us Generic External Data Provider LAB BLOOD ORDERAB LES Final Result [facility] [address] [place] [address] [phone] from Last 3 Months Insurance MEDICARE [employer]IC [employer]CIAL Care Teams Wood Turning Lathe Operator Relationship Specialty Start Date End Date Name, MD Joseph [address] [place] [phone] PCP - General Family Medicine 01/21/22
--- OUTSIDE RECORDS SUMMARY | 2024-11-05 16:44 | XMS_ITS | Encounter Summary ---
Author Organization [employer] Address [address] [facility] 7t [place] [address] Care Team Providers Care Policy Change Clerk Name Role Phone Name, Joseph KIM Primary Care Provider [phone] Reason for Visit * Reason Onset Date Comments Med Refill 07/28/2023 Encounter Details Date Type Department Care Team ([facility] st Contact Info) Description 07/28/2023 Telephone [facility] MEDICINE [address] [place], [place] [phone] Name, MD Joseph [address] [place] [address] Med Refill Social History Tobacco Use Types [...] encounter Miscellaneous Notes * Telephone Encounter - Arsen Ashford - 07/28/2023 11:26 AM EST Tc from patient requesting medication refill for HYDROcodone-acetaminophen ([place]) 7.5-325 MG tablet. documented in this encounter Plan of Treatment Upcoming Encounters Date Type Department Care Team (Late st Contact Info) Description 11/29/2024 10:30 AM EDT Telemedicine [facility] MEDICINE [address] [place] [address] Kaitlynn Landrum, SUNSH[place] documented as of this encounter Visit Diagnoses Not on filedocumented in this encounter Additional Health Concerns Assessment Noted Time PHQ-9 Depression Total Score: 4 09/22/19 23 11:14 AM EST documented as of this encounter Care Teams Policy Change Clerk Relationship Specialty Start Date End Date Name, MD Joseph [address] [place] [address] PCP - General Family Medicine 01/21/22 documented as of this encounter
--- OUTSIDE RECORDS SUMMARY | 2024-11-05 16:44 | XMS_ITS | Continuity of Care Document ---
Author Organization [facility] Address [address] [place] [phone] Care Team Providers Care Moving Picture Producer Name Role Phone Name Joseph KIM Primary Care Physician [phone] Encounter [facility] [id number] Date(s): 07/23/24 - 11/01/24 [facility] [address] [place] [address] Attending Physician: Lalita Correa MD Admitting Physician: Lalita Correa MD Encounter Type: Pre-OutPatient One Time Allergies, Adverse Reactions, Alerts Substance Criticality Severity [...] Team Personnel Name: Name Joseph KIM Position: S Outreach Member Role: PCP Address: [address] [place] [address] Telecom: Care Team Related Persons Name: MILADYS MARTIN Name: BERKLEY MENENDEZ Insurance Providers Guarantor name: GEOVANY VERONICA Health Plan Information #: 1 Payer: NA Member Number: [id number] Policy Number: NA Group Number: [id number] Health Plan Information #: 2 Payer: MEDICARE PART B OUTPT Member Number: [id number] Policy Number: NA Group Number: [id number]
--- OUTSIDE RECORDS SUMMARY | 2024-11-05 16:44 | XMS_ITS | Encounter Summary ---
Author Organization [employer] Address [address] [facility] 7t [place] [address] Care Team Providers Care White Sugar Pan Tank Operator Name Role Phone Name, Joseph KIM Primary Care Provider [phone] Encounter Details Date Type Department Care Team ([facility] st Contact Info) Description 06/28/2024 Orders Only [facility] MEDICINE [address] [place], [place] [phone] Name, MD Joseph [address] [place] [address] Iron deficiency anemia, unspecified iron deficiency anemia [...] Info) Description 11/29/2024 10:30 AM EDT Telemedicine [facility] MED[facility]INE [address] [place] [phone] Kaitlynn Landrum RN documented as of this encounter Procedures Procedure Name Priority Date/Time Associated Diagnosis Comments CBC WITH AUTO DIFFERENTIAL Routine 07/03/2024 2:09 PM EDT Iron deficiency anemia, unspecified iron deficiency anemia type documented in this encounter Results * (ABNORMAL) CBC auto differential (07/03/2024 2:09 PM EDT) White Blood Count 7.3 4.8 - 10.8 X10*3/uL [facility] Red Blood Count 2.26(L) 4.20 - 5.50 X10*6/uL [facility] Hemoglobin 6.0(LL) 12.0 - 16.0 g/dl [facility] Comment:Results of HCG perez d to and read back by DR Cordova 07/03/24 at 1840 by ASHA. Hematocrit 20.4(LL) 37.0 - 47.0 % [facility] Comment:Results of HCT perez d to and read back by DR Cordova 07/03/24 at 1840 by ASHA. Mean Corpuscular Volume 90.3 80.0 - 98.0 fL [facility] Mean Corpuscular Hemoglobin 26.5(L) 27.0 - 33.0 pg [facility] Mean Corpuscular HGB Conc 29.4(L) 31.0 - 35.0 g/dl [facility] Red Cell Distribution Width 17.9(H) 11.0 - 16.0 % [facility] Platelet Count 60(L) 160 - 400 X10*3/uL [facility] Mean Platelet Volume TNP 9.4 - 12.3 fL [facility] Neutrophils Percent Auto 82.0(H) 45 - 73 % [facility] Imm Gran Pct Auto 0.5(H) 0.0 - 0.4 % [facility] Lymphocytes Percent Auto 9.3(L) 20 - 40 % [facility] Monocytes Percent Auto 7.0 2 - 11 % [facility] Eosinophils Percent Auto 0.8 0 - 4 % [facility] Basophils Percent Auto 0.4 0 - 2 % [facility] NRBC Pct Auto 0.0 0.0 - 0.2 /100WBC [facility] Neutrophils Absolute Auto 6.0 2.0 - 8.3 x10*3/uL [facility] Imm Gran Abs Auto 0.04(H) 0.00 - 0.03 X10*3/uL [facility] Lymphocytes Absolute Auto 0.7(L) 1.2 - 4.9 X10*3/uL [facility] Monocytes Absolute Auto 0.5 0.1 - 1.2 X10*3/uL [facility] Eosinophils Absolute Auto 0.1 0.0 - 0.4 X10*3/uL [facility] Basophils Absolute Auto 0.0 0.0 - 0.2 X10*3/uL [facility] NRBC Abs Auto 0.000 0.0 - 0.012 X10*3/uL [facility] Blood Venous blood specimen / Unknown 07/03/2024 2:09 PM EDT 07/03/2024 4:15 PM EDT us Joseph Name LAB BLOOD ORDERABLES Edited Resu lt - Final [facility] [address] [place] [phone] documented in this encounter Visit Diagnoses Diagnosis Iron deficiency anemia, unspecified iron deficiency anemia type documented in this encounter Additional Health Concerns Assessment Noted Time PHQ-9 Depression Total Score: 0 01/30/20 24 11:07 AM EDT documented as of this encounter Care Teams White Sugar Pan Tank Operator Relationship Specialty Start Date End Date Name, MD Joseph [address] [place] [address] PCP - General Family Medicine 01/21/22 documented as of this encounter
--- OUTSIDE RECORDS SUMMARY | 2024-11-05 16:44 | XMS_ITS | Encounter Summary ---
Author Organization [employer] Address [address] [facility] 7t [place] [address] Care Team Providers Care Talent Management Specialist Name Role Phone Name, Joseph KIM Primary Care Provider [phone] Reason for Visit * Reason Onset Date Comments Med Refill 10/15/2024 Encounter Details Date Type Department Care Team (Late st Contact Info) Description 10/15/2024 Refill [facility] [address] [place], [place] [phone] Name, MD Joseph [address] [place] [address] Chronic pain syndrome Social History Tobacco Use [...] encounter Miscellaneous Notes * Telephone Encounter - Jory Reyna LPN - 10/15/2024 9:27 AM EST Transmission to pharmacy failed (10/15/2024 7:49 AM EST) documented in this encounter Plan of Treatment Upcoming Encounters Date Type Department Care Team (Late st Contact Info) Description 11/29/2024 10:30 AM EDT Telemedicine [facility] MEDICINE [address] [place] [address] Kaitlynn Landrum RN documented as of this encounter Visit Diagnoses Diagnosis Chronic pain syndrome documented in this encounter Additional Health Concerns Assessment Noted Time PHQ-9 Depression Total Score: 0 01/30/20 24 11:07 AM EDT documented as of this encounter Care Teams Talent Management Specialist Relationship Specialty Start Date End Date Name, MD Joseph [address] [place] [address] PCP - General Family Medicine 01/21/22 documented as of this encounter
--- OUTSIDE RECORDS SUMMARY | 2024-11-05 16:44 | XMS_ITS | Encounter Summary ---
Author Organization [employer] Address [address] [facility] 7t [place] [address] Care Team Providers Care Local Sales Associate Name Role Phone Name, Joseph KIM Primary Care Provider [phone] Encounter Details Date Type Department Care Team ([facility] st Contact Info) Description 09/06/2024 Orders Only [facility] MEDICINE [address] [place], [place] [phone] Name, MD Joseph [address] [place] [address] Iron deficiency anemia, unspecified iron deficiency anemia [...] Info) Description 11/29/2024 10:30 AM EDT Telemedicine [facility] MEDICINE [address] [place] [address] Kaitlynn Landrum RN documented as of this encounter Visit Diagnoses Diagnosis Iron deficiency anemia, unspecified iron deficiency anemia type documented in this encounter Additional Health Concerns Assessment Noted Time PHQ-9 Depression Total Score: 0 01/30/20 24 11:07 AM EDT documented as of this encounter Care Teams Local Sales Associate Relationship Specialty Start Date End Date Name, MD Joseph [address] [place] [address] PCP - General Family Medicine 01/21/22 documented as of this encounter
--- OUTSIDE RECORDS SUMMARY | 2024-11-05 16:44 | XMS_ITS | Encounter Summary ---
Author Organization [employer] Address [address] [facility] 7t [place] [address] Care Team Providers Care Local Announcer Name Role Phone Name, Joseph KIM Primary Care Provider [phone] Encounter Details Date Type Department Care Team ([facility] st Contact Info) Description 08/02/2024 Orders Only [facility] MEDICINE [address] [place], [place] [phone] Name, MD Joseph [address] [place] [address] Iron deficiency anemia, unspecified iron deficiency anemia [...] Info) Description 11/29/2024 10:30 AM EDT Telemedicine [facility] MEDICINE [address] [place] [address] Kaitlynn Landrum RN documented as of this encounter Visit Diagnoses Diagnosis Iron deficiency anemia, unspecified iron deficiency anemia type documented in this encounter Additional Health Concerns Assessment Noted Time PHQ-9 Depression Total Score: 0 01/30/20 24 11:07 AM EDT documented as of this encounter Care Teams Local Announcer Relationship Specialty Start Date End Date Name, MD Joseph [address] [place] [address] PCP - General Family Medicine 01/21/22 documented as of this encounter
--- OUTSIDE RECORDS SUMMARY | 2024-11-05 16:44 | XMS_ITS | Encounter Summary ---
Author Organization [employer] Address [address] [facility] 7t [place] [address] Care Team Providers Care Owner [employer] Name Role Phone Name, Joseph KIM Primary Care Provider [phone] Reason for Visit * Reason Onset Date Comments Med Refill 10/15/2024 Encounter Details Date Type Department Care Team ([facility] st Contact Info) Description 10/15/2024 Telephone [facility] MEDICINE [address] [place], [place] [phone] Name, MD Joseph [address] [place] [address] Med Refill Social History Tobacco Use Types [...] Telephone Encounter - Kaitlynn Landrum RN - 10/15/2024 2:40 PM EST Duplicate request * Telephone Encounter - Salvador Diamond - 10/15/2024 1:32 PM EST TC from pt requesting medication refill. Medications needing refill : oxyCODONE-acetaminophen (Percocet) 10-325 MG tablet To be sent to: [facility] documented in this encounter Plan of Treatment Upcoming Encounters Date Type Department Care Team (Late st Contact Info) Description 11/29/2024 10:30 AM EDT Telemedicine [facility] MEDICINE [address] [place] [address] Kaitlynn Landrum, RN documented as of this encounter Visit Diagnoses Not on filedocumented in this encounter Additional Health Concerns Assessment Noted Time PHQ-9 Depression Total Score: 0 01/30/20 24 11:07 AM EDT documented as of this encounter Care Teams Owner [employer] Relationship Specialty Start Date End Date Name, MD Joseph [address] [place] [address] PCP - General Family Medicine 01/21/22 documented as of this encounter
--- OUTSIDE RECORDS SUMMARY | 2024-11-05 16:44 | XMS_ITS | Encounter Summary ---
Author Organization [employer] Address [address] [facility] 7t [place] [address] Care Team Providers Care Gas Compressor Turbine Operator Name Role Phone Name, Joseph KIM Primary Care Provider [phone] Encounter Details Date Type Department Care Team ([facility] st Contact Info) Description 08/23/2024 Orders Only [facility] MEDICINE [address] [place], [place] [phone] Name, MD Joseph [address] [place] [address] Iron deficiency anemia, unspecified iron deficiency anemia [...] Info) Description 11/29/2024 10:30 AM EDT Telemedicine [facility] MEDICINE [address] [place] [address] Kaitlynn Landrum RN documented as of this encounter Visit Diagnoses Diagnosis Iron deficiency anemia, unspecified iron deficiency anemia type documented in this encounter Additional Health Concerns Assessment Noted Time PHQ-9 Depression Total Score: 0 01/30/20 24 11:07 AM EDT documented as of this encounter Care Teams Gas Compressor Turbine Operator Relationship Specialty Start Date End Date Name, MD Joseph [address] [place] [address] PCP - General Family Medicine 01/21/22 documented as of this encounter
--- OUTSIDE RECORDS SUMMARY | 2024-11-05 16:44 | XMS_ITS | Encounter Summary ---
Author Organization [employer] [facility] [employer] Address [address] [facility] 7t [place] [address] Care Team Providers Care Railroad Dining Car Stewardess Name Role Phone Name, Joseph KIM Primary Care Provider [phone] Encounter Details Date Type Department Care Team ([facility] st Contact Info) Description 07/05/2024 Orders Only [facility] MEDICINE [address] [place], [place] [phone] Name, MD Joseph [address] [place] [address] Iron deficiency anemia, unspecified iron deficiency anemia [...] Info) Description 11/29/2024 10:30 AM EDT Telemedicine [facility] MEDICINE [address] [place] [address] Kaitlynn Landrum RN documented as of this encounter Visit Diagnoses Diagnosis Iron deficiency anemia, unspecified iron deficiency anemia type documented in this encounter Additional Health Concerns Assessment Noted Time PHQ-9 Depression Total Score: 0 01/30/20 24 11:07 AM EDT documented as of this encounter Care Teams Railroad Dining Car Stewardess Relationship Specialty Start Date End Date Name, MD Joseph [address] [place] [address] PCP - General Family Medicine 01/21/22 documented as of this encounter
--- OUTSIDE RECORDS SUMMARY | 2024-11-05 16:44 | XMS_ITS | Encounter Summary ---
Author Organization [employer] Address [address] [facility] 7t [place] [address] Care Team Providers Care Count Team Member Name Role Phone Name, Joseph KIM Primary Care Provider [phone] Encounter Details Date Type Department Care Team ([facility] st Contact Info) Description 11/05/2024 Telephone [facility] MEDICINE [address] [place], [place] [phone] Ara Cantor, RN [address] [place], [place] [phone] Social History Tobacco Use Types Packs/Day Years [...] Telephone Encounter - Ara Cantor RN - 11/05/2024 9:01 AM EST T/C to pt per request of PCP to advise pt to call 911 for reported sob, fatigue, hx of anemia requiring transfusions. Advised pt of PCP recommendation. Pt agrees to call 911 to go to [facility] now. Expect called in to [facility] ED. documented in this encounter Plan of Treatment Upcoming Encounters Date Type Department Care Team (Late st Contact Info) Description 11/29/2024 10:30 AM EDT Telemedicine [facility] MEDICINE [address] [place] [address] Kaitlynn Landrum RN documented as of this encounter Visit Diagnoses Not on filedocumented in this encounter Additional Health Concerns Assessment Noted Time PHQ-9 Depression Total Score: 0 01/30/20 24 11:07 AM EDT documented as of this encounter Care Teams Count Team Member Relationship Specialty Start Date End Date Name, MD Joseph [address] [place] [address] PCP - General Family Medicine 01/21/22 documented as of this encounter
--- OUTSIDE RECORDS SUMMARY | 2024-11-05 16:44 | XMS_ITS | Encounter Summary ---
Author Organization [facility] [employer] [facility] Address [address] [place] [address] 7t [place] [address] Care Team Providers Care Pay Clerk Name Role Phone Name, Joseph KIM Primary Care Provider [phone] Encounter Details Date Type Department Care Team (Late Contact Info) Description 11/11/2022 Abstract [facility] MEDICINE [address] [place] [address] [phone] Name, MD Joseph [address] [place] [address] Social History Tobacco Use Types Packs/Day Years [...] suspected to have Coronavirus/COVID-19? No / Unsure 10/17/2022 11:14 AM EST documented as of this encounter Plan of Treatment Upcoming Encounters Date Type Department Care Team ([facility] Contact Info) Description 11/29/2024 10:30 AM EDT Telemedicine [facility] MEDICINE [address] [place] [phone] Kaitlynn Landrum RN documented as of this encounter Visit Diagnoses Not on filedocumented in this encounter Additional Health Concerns Assessment Noted Time PHQ-9 Depression Total Score: 4 09/22/19 23 11:14 AM EST documented as of this encounter Care Teams Pay Clerk Relationship Specialty Start Date End Date Name, MD Joseph [address] [place] [address] PCP - General Family Medicine 01/21/22 documented as of this encounter
--- OUTSIDE RECORDS SUMMARY | 2024-11-05 16:44 | XMS_ITS | Encounter Summary ---
Author Organization [employer] Address [address] [facility] 7t [place] [address] Care Team Providers Care Car Varnisher Name Role Phone Name, Joseph KIM Primary Care Provider [phone] Encounter Details Date Type Department Care Team (Late st Contact Info) Description 11/05/2024 Orders Only GENERIC EXTERNAL DATA DEPARTMENT Provider, Generic External Data Social History Tobacco Use Types Packs/Day Years [...] Info) Description 11/29/2024 10:30 AM EDT Telemedicine [facility] [address] [place] [address] Kaitlynn Landrum RN documented as of this encounter Procedures Procedure Name Priority Date/Time Associated Diagnosis Comments XR CHEST 2 VIEWS Routine 11/05/2024 1:28 PM EST SLIDE REVIEW Routine 11/05/2024 1:04 PM EST SARS COV2/INFLUENZA A/B AND RSV RNA QL NAAT Routine 11/05/2024 1:04 PM EST CBC WITH AUTO DIFFERENTIAL Routine 11/05/2024 1:04 PM EST RED BLOOD COUNT Routine 11/05/2024 1:04 PM EST TYPE AND SCREEN Routine 11/05/2024 1:04 PM EST BASIC METABOLIC PANEL Routine 11/05/2024 1:04 PM EST documented in this encounter Results * XR Chest 2 Views (11/05/2024 1:28 PM EST) Anatomical Region Laterality Modality Chest Radiographic Ewelina ging 11/05/2024 1:28 PM EST Narrative 11/05/2024 2:15 PM EST ? [facility] ?[address] ?[place] [address] ?XRay Report ? Signed ? Patient: Dustin,Susan ?MR#: [id number] ?? 7 ? : 1945 ?Acct:[id number] ? Age/Sex: 78 / F ?ADM Date: 02/18/25 ? Loc: HO.ED ? Attending Dr: ? Ordering Physician: Mounika Owens MD ?? Date of Service: 11/05/24 ?? Procedure(s): XR chest 2V ?? Accession Number(s): [id number] ? cc: Mounika Owens MD; Name,Joseph KIM [...] DD/ 1328 ? TD/TT: 11/05/24 1345 ? Product Lister: ? Procedure Note Italiater, Image - 11/05/2024 [place] [address] XRay Report Signed Patient: Susan ChanMR#: [id number] 7 : 5Acct:[id number] Age/Sex: 78 / FADM Date: 11/05/24 Loc: HO.ED Attending Dr: Ordering Physician: Mounika Owens MD Date of Service: 11/05/24 Procedure(s): XR chest 2V Accession Number(s): [id number] cc: Mounika Owens MD; Name,Joseph KIM EXAMINATION: [...] 11/05/24 1412 DD/ 1328 TD/TT: 11/05/24 1345 Product Lister: [facility] External Provider IMG XR PROCEDURES Edited Result - Final * Red blood count (11/05/2024 1:04 PM EST) Red Blood Cells: [id number] OP RC TRANSFUSED 11/05/24 1513 [facility] 11/05/2024 1:04 PM EST 11/05/2024 1:16 PM EST Generic External Data Provider LAB BLOOD ORDERAB LES Final Result [facility] [address] [place] [phone] * Type and screen (11/05/2024 1:04 PM EST) Blood Type OP [facility] Antibody Screen NEGATIVE [facility] 11/05/2024 1:04 PM EST 11/05/2024 1:16 PM EST Narrative [facility] - 11/05/2024 4:14 PM EST Results at Issue Units as of 11/05/24 1514 ...Test View Group: Most Recent HGB ?? HCT Results ?LABORATORYDate ?Time Test ?Result ?Flag Normal Range02/18/25 1304 HGB ?7.3 ?# L ??12.0-16.0 g/dl11/05/24 1304 HCT ?25.1 ?# L ??37.0-47.0 % Yes Generic External Data Provider LAB BLOOD BANK TE ST ORDERABLES Final Result Performing Organization Address [facility] de Phone Number [facility] [address] [place] [address] [phone] * SARS-CoV-2 RNA, Influenza A/B, and RSV RNA, Ql NAAT (11/05/2024 1:04 PM EST) Influenza A PCR NEGATIVE Negative [facility] Influenza B PCR NEGATIVE Negative [facility] Resp Syncy Virus RNA Qual PCR NEGATIVE Negative [facility] SARS COV2 PCR NEGATIVE Negative [facility] Comment:All test results mus t [...] use by authorized laboratories.Testing performed on the [employer] GeneXpert utilizingreal-time RT-PCR.All SARS CoV2 and positive influenza A/B results arereported to [facility]. 11/05/2024 1:04 PM EST 11/05/2024 1:07 PM EST Generic External Data Provider LAB MICROBIOLOGY - GENERAL ORDERABLES Final Result Performing Organization Address [facility]/State/ZIP Co de Phone Number [facility] [address] [place] [address] [phone] * Slide Review (11/05/2024 1:04 PM EST) Slide Review VERIFIED [facility] 11/05/2024 1:04 PM EST 11/05/2024 1:07 PM EST us Generic External Data Provider LAB BLOOD ORDERAB LES Final Result [facility] [address] [place] [address] [phone] * (ABNORMAL) Basic Metabolic Panel (11/05/2024 1:04 PM EST) Sodium 146(H) 135 - 145 mmol/L [facility] Potassium 4.4 3.3 - 5.1 mmol/L [facility] Chloride 112(H) 96 - 108 mmol/L [facility] Carbon Dioxide 28 22 - 29 mmol/L [facility] Anion Gap 10(L) 12 - 20 [facility] Urea Nitrogen (BUN) 23(H) 9 - 16 mg/dL [facility] Creatinine, Serum 0.68 0.5 - 1.4 mg/dL [facility] Creatinine Clr Calc Pharmacy 66.1 [facility] Comment:Provided height and weight: 160.02 cm,77.564 kg.eGFR (calculated from the MDRD study equation) and eCrCl(calculated from the Cockcroft-Gault equation) are based ondifferent parameters and may not yield comparable results.If eCrCl result is absurd, please check patient'sheight/weight. Estimated Glomerular Filt Rate >60 [facility] Comment:Chronic Kidney Disea se: Estimated GFR < 60 mL/min/1.52h8Zzgbht Kidney Disease: Estimated GFR < 15 mL/min/1.73m2 Glucose 98 60 - 115 mg/dL [facility] Calcium 8.5 8.4 - 10.2 mg/dL [facility] 11/05/2024 1:04 PM EST 11/05/2024 1:07 PM EST us Generic External Data Provider LAB BLOOD ORDERAB LES Final Result [facility] [address] [place] [address] [phone] * (ABNORMAL) CBC auto differential (11/05/2024 1:04 PM EST) White Blood Count 5.4 4.8 - 10.8 X10*3/uL [facility] Red Blood Count 2.52(L) 4.20 - 5.50 X10*6/uL [facility] Hemoglobin 7.3(L) 12.0 - 16.0 g/dl [facility] Hematocrit 25.1(L) 37.0 - 47.0 % [facility] Mean Corpuscular Volume 99.6(H) 80.0 - 98.0 fL [facility] Mean Corpuscular Hemoglobin 29.0 27.0 - 33.0 pg [facility] Mean Corpuscular HGB Conc 29.1(L) 31.0 - 35.0 g/dl [facility] Red Cell Distribution Width 14.1 11.0 - 16.0 % [facility] Platelet Count 64(L) 160 - 400 X10*3/uL [facility] Neutrophils Percent Auto 80.8(H) 45 - 73 % [facility] Imm Gran Pct Auto 0.6(H) 0.0 - 0.4 % [facility] Lymphocytes Percent Auto 10.1(L) 20 - 40 % [facility] Monocytes Percent Auto 6.7 2 - 11 % [facility] Eosinophils Percent Auto 1.1 0 - 4 % [facility] Basophils Percent Auto 0.7 0 - 2 % [facility] NRBC Pct Auto 0.0 0.0 - 0.2 /100WBC [facility] Neutrophils Absolute Auto 4.3 2.0 - 8.3 x10*3/uL [facility] Imm Gran Abs Auto 0.03 0.00 - 0.03 X10*3/uL [facility] Lymphocytes Absolute Auto 0.5(L) 1.2 - 4.9 X10*3/uL [facility] Monocytes Absolute Auto 0.4 0.1 - 1.2 X10*3/uL [facility] Eosinophils Absolute Auto 0.1 0.0 - 0.4 X10*3/uL [facility] Basophils Absolute Auto 0.0 0.0 - 0.2 X10*3/uL [facility] NRBC Abs Auto 0.000 0.0 - 0.012 X10*3/uL [facility] 11/05/2024 1:04 PM EST 11/05/2024 1:07 PM EST us Generic External Data Provider LAB BLOOD ORDERAB LES Edited Result - Final Performing Organization Address City/State/[facility] Co de Phone Number [facility] [address] [place] [address] [phone] documented in this encounter Visit Diagnoses Not on filedocumented in this encounter Additional Health Concerns Assessment Noted Time PHQ-9 Depression Total Score: 0 01/30/20 24 11:07 AM EDT documented as of this encounter Care Teams Car Varnisher Relationship Specialty Start Date End Date Name, MD Joseph [address] [place] [address] PCP - General Family Medicine 01/21/22 documented as of this encounter
--- OUTSIDE RECORDS SUMMARY | 2024-11-05 16:44 | XMS_ITS | Encounter Summary ---
Author Organization [employer] Address [address] [facility] 7t [place] [address] Care Team Providers Care Railroad Commissioner Name Role Phone Name, Joseph KIM Primary Care Provider [phone] Encounter Details Date Type Department Care Team ([facility] st Contact Info) Description 07/19/2024 Orders Only [facility] [address] [place], [place] [phone] Name, MD Joseph [address] [place] [address] Iron deficiency anemia, unspecified iron deficiency anemia [...] 10:30 AM EDT Telemedicine [facility] [address] [place] [address] Kaitlynn Landrum RN documented as of this encounter Procedures Procedure Name Priority Date/Time Associated Diagnosis Comments CBC WITH AUTO DIFFERENTIAL Routine 07/23/2024 2:15 PM EST Iron deficiency anemia, unspecified iron deficiency anemia type documented in this encounter Results * (ABNORMAL) CBC auto differential (07/23/2024 2:15 PM EST) White Blood Count 9.9 4.8 - 10.8 X10*3/uL [facility] Red Blood Count 3.50(L) 4.20 - 5.50 X10*6/uL [facility] Hemoglobin 9.8(L) 12.0 - 16.0 g/dl [facility] Hematocrit 32.9(L) 37.0 - 47.0 % [facility] Mean Corpuscular Volume 94.0 80.0 - 98.0 fL [facility] Mean Corpuscular Hemoglobin 28.0 27.0 - 33.0 pg [facility] Mean Corpuscular HGB Conc 29.8(L) 31.0 - 35.0 g/dl [facility] Red Cell Distribution Width 19.3(H) 11.0 - 16.0 % [facility] Platelet Count 88(L) 160 - 400 X10*3/uL [facility] Comment:Confirmed by smear. Mean Platelet Volume TNP 9.4 - 12.3 fL [facility] Neutrophils Percent Auto 76.1(H) 45 - 73 % [facility] Imm Gran Pct Auto 0.3 0.0 - 0.4 % [facility] Lymphocytes Percent Auto 12.0(L) 20 - 40 % [facility] Monocytes Percent Auto 9.2 2 - 11 % [facility] Eosinophils Percent Auto 1.8 0 - 4 % [facility] Basophils Percent Auto 0.6 0 - 2 % [facility] NRBC Pct Auto 0.0 0.0 - 0.2 /100WBC [facility] Neutrophils Absolute Auto 7.6 2.0 - 8.3 x10*3/uL [facility] Imm Gran Abs Auto 0.03 0.00 - 0.03 X10*3/uL [facility] Lymphocytes Absolute Auto 1.2 1.2 - 4.9 X10*3/uL [facility] Monocytes Absolute Auto 0.9 0.1 - 1.2 X10*3/uL [facility] Eosinophils Absolute Auto 0.2 0.0 - 0.4 X10*3/uL [facility] Basophils Absolute Auto 0.1 0.0 - 0.2 X10*3/uL [facility] NRBC Abs Auto 0.000 0.0 - 0.012 X10*3/uL [facility] Blood Venous blood specimen / Unknown 07/23/2024 2:15 PM EST 07/23/2024 4:10 PM EST us Joseph Magana MD LAB BLOOD ORDERABLES Edited Resu lt - Final [facility] [address] [place] [address] [phone] documented in this encounter Visit Diagnoses Diagnosis Iron deficiency anemia, unspecified iron deficiency anemia type documented in this encounter Additional Health Concerns Assessment Noted Time PHQ-9 Depression Total Score: 0 01/30/20 24 11:07 AM EDT documented as of this encounter Care Teams Railroad Commissioner Relationship Specialty Start Date End Date Name, MD Joseph [address] [place] [address] PCP - General Family Medicine 01/21/22 documented as of this encounter
--- OUTSIDE RECORDS SUMMARY | 2024-11-05 16:44 | XMS_ITS | Encounter Summary ---
Author Organization [employer] Address [address] [facility] 7t [place] [address] Care Team Providers Care Key Account Coordinator Name Role Phone Name, Joseph KIM Primary Care Provider [phone] Reason for Visit * Reason Onset Date Comments Med Refill 09/26/2023 Encounter Details Date Type Department Care Team ([facility] st Contact Info) Description 09/26/2023 Telephone [facility] [address] [place], [place] [phone] Name, MD Joseph [address] [place] [address] Med Refill Social History Tobacco Use Types [...] Telephone Encounter - Bela Palencia LPN - 09/26/2023 10:28 AM EST Last seen 09/05/23. * Telephone Encounter - Elliott Perea - 09/26/2023 8:43 AM EST TC from pt requesting medication refill. Medications needing refill : ondansetron (Zofran) 4 MG tablet, metoprolol succinate XL (Toprol-XL) 25 MG 24 hr tablet, documented in this encounter Plan of Treatment Upcoming Encounters Date Type Department Care Team (Late st Contact Info) Description 11/29/2024 10:30 AM EDT Telemedicine [facility] [address] [place] [address] Kaitlynn Landrum, SUNSHINE documented as of this encounter Visit Diagnoses Diagnosis Chronic pain syndrome documented in this encounter Additional Health Concerns Assessment Noted Time PHQ-9 Depression Total Score: 4 09/22/19 23 11:14 AM EST documented as of this encounter Care Teams Key Account Coordinator Relationship Specialty Start Date End Date Name, MD Joseph [address] [place] [address] PCP - General Family Medicine 01/21/22 documented as of this encounter
--- OUTSIDE RECORDS SUMMARY | 2024-11-05 16:44 | XMS_ITS | Encounter Summary ---
Author Organization [employer] Address [address] [facility] 7t [place] [address] Care Team Providers Care Checking Clerk Name Role Phone Name, Joseph KIM Primary Care Provider [phone] Encounter Details Date Type Department Care Team ([facility] st Contact Info) Description 08/16/2024 Orders Only [facility] [address] [place], [place] [phone] Name, MD Joseph [address] [place] [address] Iron deficiency anemia, unspecified iron deficiency anemia [...] Info) Description 11/29/2024 10:30 AM EDT Telemedicine [facility] [address] [place] [address] Kaitlynn Landrum RN documented as of this encounter Visit Diagnoses Diagnosis Iron deficiency anemia, unspecified iron deficiency anemia type documented in this encounter Additional Health Concerns Assessment Noted Time PHQ-9 Depression Total Score: 0 01/30/20 24 11:07 AM EDT documented as of this encounter Care Teams Checking Clerk Relationship Specialty Start Date End Date Name, MD Joseph [address] [place] [address] PCP - General Family Medicine 01/21/22 documented as of this encounter
[2024-11-05 17:25] VITALS: BP 139/63; PULSE 73; RESP 22; TEMP 37.2
[2024-11-05 17:37] VITALS: BP 139/63; PULSE 73; RESP 22; TEMP 37.2; O2SAT 96
== END 2024-11-05 18:04 | disposition home or self-care (01) ==
PROVIDERS: Emergency Provider Emergency Medicine; PCP Internal Medicine Geriatric Medicine
DX: D64.9 Anemia, unspecified (principal); R42 Dizziness and giddiness; R53.1 Weakness; R06.02 Shortness of breath; Z03.818 Encounter for observation for suspected exposure to other biological agents ruled out; J45.909 Unspecified asthma, uncomplicated; Z87.891 Personal history of nicotine dependence; Z79.899 Other long term (current) drug therapy
CPT/HCPCS: 0241U; 36415; 36430; 71046; 80048; 85025; 86850; 86900; 86901; 86923; 99284; 99285; P9016

== ENCOUNTER → 2024-11-05 13:28 | Outpatient (BNV) | payer OTHER, SELFPAY | PROVIDERS: Emergency Provider Emergency Medicine; PCP Internal Medicine Geriatric Medicine; Visit Provider Radiology Diagnostic Radiology | DX: I51.7 Cardiomegaly (principal) | CPT/HCPCS: 71046 ==

== ENCOUNTER 2025-01-10 15:16 | Outpatient (REF) | payer OTHER, SELFPAY ==
--- OUTSIDE RECORDS SUMMARY | 2025-01-10 15:51 | XMS_ITS | Encounter Summary ---
Author Organization [employer] Address [address] [facility] 7t [place] [address] Care Team Providers Care Alterations Sewer Name Role Phone Name, Joseph KIM Primary Care Provider [phone] Reason for Visit * Reason Onset Date Comments Med Refill 08/28/2023 Encounter Details Date Type Department Care Team ([facility] st Contact Info) Description 08/28/2023 Telephone [facility] MED[facility]INE [address] [place], [place] [phone] Name, MD Joseph [address] [place] [address] Med Refill Social History Tobacco Use Types [...] Base) MCG/ACT inhaler to be sent to [facility] - [place], [place] - [address] [place], [place] [phone] documented in this encounter Plan of Treatment Upcoming Encounters Date Type Department Care Team (Late st Contact Info) Description 02/21/2025 10:30 AM EDT Telemedicine [facility] [address] [place] [address] Kaitlynn Landrum RN documented as of this encounter Visit Diagnoses Not on filedocumented in this encounter Additional Health Concerns Assessment Noted Time PHQ-9 Depression Total Score: 4 09/22/19 23 11:14 AM EST documented as of this encounter Care Teams Alterations Sewer Relationship Specialty Start Date End Date Name, MD Joseph [address] [place] [address] PCP - General Family Medicine 01/21/22 documented as of this encounter
--- OUTSIDE RECORDS SUMMARY | 2025-01-10 15:51 | XMS_ITS | Encounter Summary ---
Author Organization [employer] Address [address] [facility] 7t [place] [address] Care Team Providers Care Division Chair Name Role Phone Name, Joseph KIM Primary Care Provider [phone] Reason for Visit * Reason Onset Date Comments Triage 12/28/2022 Encounter Details Date Type Department Care Team ([facility] st Contact Info) Description 12/28/2022 Telephone [facility] [address] [place], [place] [phone] Name, MD Joseph [address] [place] [address] Triage Social History Tobacco Use Types Packs/Day [...] accepted this outcome Please contact pt at [phone] documented in this encounter Plan of Treatment Upcoming Encounters Date Type Department Care Team (Late st Contact Info) Description 02/21/2025 10:30 AM EDT Telemedicine [facility] [address] [place] [address] Kaitlynn Landrum RN documented as of this encounter Visit Diagnoses Not on filedocumented in this encounter Additional Health Concerns Assessment Noted Time PHQ-9 Depression Total Score: 4 09/22/19 23 11:14 AM EST documented as of this encounter Care Teams Division Chair Relationship Specialty Start Date End Date Name, MD Joseph [address] [place] [address] PCP - General Family Medicine 01/21/22 documented as of this encounter
--- OUTSIDE RECORDS SUMMARY | 2025-01-10 15:51 | XMS_ITS | Encounter Summary ---
Author Organization [employer] Address [address] [facility] 7t [place] [address] Care Team Providers Care Site Supervising Technical Operator Name Role Phone Name, Joseph KIM Primary Care Provider [phone] Reason for Visit * Reason Onset Date Comments Med Refill 10/08/2024 Encounter Details Date Type Department Care Team ([facility] st Contact Info) Description 10/08/2024 Telephone [facility] [address] [place], [place] [phone] Name, MD Joseph [address] [place] [address] Med Refill Social History Tobacco Use Types [...] Fe) MG tablet To be sent to: [facility] - [place], [place] - [address] [place] [address] documented in this encounter Plan of Treatment Upcoming Encounters Date Type Department Care Team (Late st Contact Info) Description 02/21/2025 10:30 AM EDT Telemedicine [facility] [address] [place] [address] Kaitlynn Landrum, SUNSHINE documented as of this encounter Visit Diagnoses Not on filedocumented in this encounter Additional Health Concerns Assessment Noted Time PHQ-9 Depression Total Score: 0 01/30/20 24 11:07 AM EDT documented as of this encounter Care Teams Site Supervising Technical Operator Relationship Specialty Start Date End Date Name, MD Joseph [address] [place] [address] PCP - General Family Medicine 01/21/22 documented as of this encounter
--- OUTSIDE RECORDS SUMMARY | 2025-01-10 15:51 | XMS_ITS | Encounter Summary ---
Author Organization [employer] Address [address] [facility] 7t [place] [address] Care Team Providers Care Document Preparer Microfilming Name Role Phone Name, Joseph KIM Primary Care Provider [phone] Encounter Details Date Type Department Care Team ([facility] st Contact Info) Description 07/12/2024 Orders Only [facility]INE [address] [place], [place] [phone] Name, MD Joseph [address] [place] [address] Iron deficiency anemia, unspecified iron deficiency anemia [...] Info) Description 02/21/2025 10:30 AM EDT Telemedicine [facility] [address] [place] [address] Kaitlynn Landrum RN documented as of this encounter Visit Diagnoses Diagnosis Iron deficiency anemia, unspecified iron deficiency anemia type documented in this encounter Additional Health Concerns Assessment Noted Time PHQ-9 Depression Total Score: 0 01/30/20 24 11:07 AM EDT documented as of this encounter Care Teams Document Preparer Microfilming Relationship Specialty Start Date End Date Name, MD Joseph [address] [place] [address] PCP - General Family Medicine 01/21/22 documented as of this encounter
--- OUTSIDE RECORDS SUMMARY | 2025-01-10 15:51 | XMS_ITS | Encounter Summary ---
Author Organization [employer] Address [address] [facility] 7t [place] [address] Care Team Providers Care Director Of Student Financial Services Name Role Phone Name, Joseph KIM Primary Care Provider [phone] Encounter Details Date Type Department Care Team ([facility] st Contact Info) Description 07/05/2024 Orders Only [facility] [address] [place], [place] [phone] Name, MD Joseph [address] [place] [address] Iron deficiency anemia, unspecified iron deficiency anemia [...] Info) Description 02/21/2025 10:30 AM EDT Telemedicine [facility] [address] [place] [address] Kaitlynn Landrum RN documented as of this encounter Visit Diagnoses Diagnosis Iron deficiency anemia, unspecified iron deficiency anemia type documented in this encounter Additional Health Concerns Assessment Noted Time PHQ-9 Depression Total Score: 0 01/30/20 24 11:07 AM EDT documented as of this encounter Care Teams Director Of Student Financial Services Relationship Specialty Start Date End Date Name, MD Joseph [address] [place] [address] PCP - General Family Medicine 01/21/22 documented as of this encounter
--- OUTSIDE RECORDS SUMMARY | 2025-01-10 15:51 | XMS_ITS | Clinical Summary ---
Author Organization [employer] Address [address] [place] [address] 7[address] [place] [address] Care Team Providers Care Assurance Senior Manager Name Role Phone Name, Joseph KIM Primary Care Provider Allergies Active Allergy Reactions Criticality Noted Date Comments Jcnxhfawxh-Cmicveu-Esjypvhnrc 2017 Penicillin G 08/24/2022 Penicillin V Hives,Rash [...] 12 g 11 02/23/20 24 025 Active HYDROcodone-ac etaminophen ([place]) 10-325 MG tabletIndicati ons:Chronic pain syndrome Take [...] BY MOUTH EVERY 8 HOURS 20 tablet 12/21/19 25 Active metoprolol succinate XL (Toprol-XL) 25 MG 24 hr tablet TAKE 1 TABLET BY MOUTH EVERY DAY 90 tablet 1 01/10/20 25 Active ALPRAZolam (Xanax) 0.5 MG tabletIndicati ons:Chronic pain syndrome TAKE 1 TABLET BY MOUTH EVERY 8 HOURS 84 tablet 01/10/20 25 Active oxyCODONE-acet aminophen (Percocet) 10-325 MG tabletIndicati ons:Chronic pain syndrome TAKE 1 TABLET BY MOUTH EVERY 6 HOURS IF NEEDED FOR SEVERE PAIN 112 tablet 01/10/20 25 Active metoprolol succinate XL (Toprol-XL) 25 MG 24 hr tablet TAKE 1 TABLET BY MOUTH EVERY DAY 90 tablet 1 05/22/20 24 025 Discontinued ondansetron (Zofran) 4 MG tabletIndicati ons:Chronic pain syndrome TAKE 1 TABLET BY MOUTH EVERY 8 HOURS 20 tablet 09/09/20 24 025 Discontinued(Re order (will not trigger notification to Pharmacy)) oxyCODONE-acet aminophen (Percocet) 10-325 MG tabletIndicati ons:Chronic pain syndrome Take 1 tablet by mouth every 6 (six) hours if needed for severe pain for up to 28 days. 112 tablet 11/13/19 25 025 Discontinued(Re order (will not trigger notification to Pharmacy)) ALPRAZolam (Xanax) 0.5 MG tabletIndicati ons:Chronic pain syndrome Take 1 tablet (0.5 mg) by mouth every 8 (eight) hours. 84 tablet 12/07/19 25 025 Discontinued oxyCODONE-acet aminophen (Percocet) 10-325 MG tabletIndicati ons:Chronic pain syndrome Take 1 tablet by mouth every 6 (six) hours if needed for severe pain for up to 28 days. 112 tablet 12/17/19 25 025 Discontinued Active Problems Problem Noted Date Diagnosed Date terminal computer operator (current) use of opiate analgesic 11/16 Long-term current use of benzodiazepine 11/30/19 Acute pain of right lower extremity 09/05/2023 09/05/2023 Chronic ITP (idiopathic thrombocytopenia) 202209/05/2023 Left radial head fracture 09/05/20232022 Fracture of proximal end of left ulna 09/05/2023 09/05/2023 Dislocation of left radial head 09/05/2023 09/05/2023 SOB (shortness of breath) 09/05/20232022 Anemia 08/23/2022 Combined systolic and diastolic congestive heart failure 03/08/2021 Overview (03/28/2023): Cardiomyopathy with EF of 40-45%. [place] [facility] [place] and she did NOT have significant [...] an evaluation. 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 Migraine 04/04/2008 Skin tag 04/04/2008 Resolved Problems Problem Noted Date Diagnosed Date Resolved Date Angina pectoris 09/05/2023 09/05/2023 09/05/2023 Ischemic cardiomyopathy 09/05/2023 09/05/202308/18 Peptic ulcer disease 03/01/2023 023 Mild asthma 10/20/2015 03/28/2023 Heartburn 04/04/2008 03/28/2023 Overview (03/01/2023): H/O PUD Encounters Date Type Department Care Team Description 01/08/2025 Refill [facility] [address] [place] [address] NameJoseph MD Chronic pain syndrome; Chronic pain syndrome 12/20/2024 Orders Only [facility] [place] [address] Joseph Magana MD Chronic pain syndrome 12/16/2024 Refill [facility] [address] [place] [address] Joseph Magana MD Chronic pain syndrome 12/06/2024 Refill [facility] [address] [place] [address] NameJoseph MD Chronic pain syndrome 11/29/2024 10:30 AM EDT Telemedicine [facility] [place] [address] Kaitlynn Landrum RN Chronic pain syndrome (Primary Dx); [facility] (current) use of opiate analgesic; Long-term current use of benzodiazepine 11/29/2024 Telephone [facility] [address] [place] [address] Kaitlynn Landrum RN BPI & NATALIE scoring 11/29/2024 Travel 11/29/2024 Population Health Risk Score [facility] (C[facility]) Department [address] [phone] Provider, Population Health Generic 11/13/2024 Refill [facility] [address] [place] [address] Joseph Magana MD Chronic pain syndrome 11/07/2024 Refill [facility] [address] [place] [address] Name, MD Joseph Chronic pain syndrome 11/05/2024 Orders Only GENERIC EXTERNAL DATA DEPARTMENT Provider, Generic External Data 11/05/2024 Telephone [facility] [address] [place] [address] Ara Cantor RN 10/15/2024 Telephone [facility] [address] [place], [place] [phone] Name, MD Joseph Med Refill 10/15/2024 Refill [facility] [address] [place] [address] Name, MD Joseph Chronic pain syndrome from [...] Info) Description 02/21/2025 10:30 AM EDT Telemedicine [facility] [address] [place] [address] Kaitlynn Landrum, RN Health Maintenance Due Date Last Done Comments Alcohol/Substance Use Screening 1957 Zoster Vaccines (1 of 2) 1994 Pneumococcal Vaccine: 50+ Years (2 of 2 - PCV) 02/10/2011 02/10/2010, 02/10/2010 RSV Patients and Patients Aged 60 years or older (1 - 1-dose 75+ series) 11/18/2019 DTaP/Tdap/Td Vaccines (1 - Tdap) 11/19/2019 11/18/2019 SDOH Screening 03/27/2024 03/27/2023 COVID-19 Vaccine (3 - season) 2024 11/01/2021, 10/04/2021 Influenza Vaccine (#1) [...] QL NAAT Routine 11/05/2024 1:04 PM EST from Last 3 Months Results * XR Chest 2 Views (11/05/2024 1:28 PM EST) Anatomical Region Laterality Modality Chest Radiographic Ewelina ging 11/05/2024 1:28 PM EST Narrative 11/05/2024 2:15 PM EST ? [facility] ?[address] ?[place] [address] ?XRay Report ? Signed ? Patient: Susan Chan ?MR#: [id number] ?? 7 ? : 1945 ?Acct:[id number] ? Age/Sex: 78 / F ?ADM Date: 11/05/24 ? Loc: HO.ED ? Attending Dr: ? Ordering Physician: Mounika Owens MD ?? Date of Service: 11/05/24 ?? Procedure(s): XR chest 2V ?? Accession Number(s): [id number] ? cc: Mounika Owens MD; Name,Joseph KIM [...] DD/ 1328 ? TD/TT: 11/05/24 1345 ? Grocery Bagger: ? Procedure Note Reinier Huerta - 11/05/2024 [facility] [address] [place] [address] XRay Report Signed Patient: Susan ChanMR#: [id number] 7 : 5Acct:[id number] Age/Sex: 78 / FADM Date: 11/05/24 Loc: HO.ED Attending Dr: Ordering Physician: Mounika Owens MD Date of Service: 11/05/24 Procedure(s): XR chest 2V Accession Number(s): [id number] cc: Mounika Owens MD; Name,Joseph KIM EXAMINATION: [...] 11/05/24 1412 DD/ 1328 TD/TT: 11/05/24 1345 Grocery Bagger: [facility] External Provider IMG XR PROCEDURES Edited Result - Final * Slide Review (11/05/2024 1:04 PM EST) Slide Review VERIFIED [facility] 11/05/2024 1:04 PM EST 11/05/2024 1:07 PM EST Generic External Data Provider LAB BLOOD ORDERAB LES Final Result [facility] [address] [place] [address] [phone] * SARS-CoV-2 RNA, Influenza A/B, and RSV RNA, Ql NAAT (11/05/2024 1:04 PM EST) Pathologist [facility] Influenza A PCR NEGATIVE Negative [facility] Influenza B PCR NEGATIVE Negative [facility] Resp Syncy Virus RNA Qual PCR NEGATIVE Negative [facility] SARS COV2 PCR NEGATIVE Negative [facility] Comment:All test results mus t [...] use by authorized laboratories.Testing performed on the [employer] GeneXpert utilizingreal-time RT-PCR.All SARS CoV2 and positive influenza A/B results arereported to [facility]. 11/05/2024 1:04 PM EST 11/05/2024 1:07 PM EST us Generic External Data Provider LAB MICROBIOLOGY - GENERAL ORDERABLES Final Result [facility] [address] [place] [phone] * (ABNORMAL) CBC auto differential (11/05/2024 1:04 PM EST) Pathologist [facility] White Blood Count 5.4 4.8 - 10.8 X10*3/uL [facility] Red Blood Count 2.52(L) 4.20 - 5.50 X10*6/uL [facility] Hemoglobin 7.3(L) 12.0 - 16.0 g/dl [facility] Hematocrit 25.1(L) 37.0 - 47.0 % [facility] Mean Corpuscular Volume 99.6(H) 80.0 - 98.0 fL [facility] Mean Corpuscular Hemoglobin 29.0 27.0 - 33.0 pg [facility] Mean Corpuscular HGB Conc 29.1(L) 31.0 - 35.0 g/dl [facility] Red Cell Distribution Width 14.1 11.0 - 16.0 % [facility] Platelet Count 64(L) 160 - 400 X10*3/uL [facility] Neutrophils Percent Auto 80.8(H) 45 - 73 % [facility] Imm Gran Pct Auto 0.6(H) 0.0 - 0.4 % [facility] Lymphocytes Percent Auto 10.1(L) 20 - 40 % [facility] Monocytes Percent Auto 6.7 2 - 11 % [facility] Eosinophils Percent Auto 1.1 0 - 4 % [facility] Basophils Percent Auto 0.7 0 - 2 % [facility] NRBC Pct Auto 0.0 0.0 - 0.2 /100WBC [facility] Neutrophils Absolute Auto 4.3 2.0 - 8.3 x10*3/uL [facility] Imm Gran Abs Auto 0.03 0.00 - 0.03 X10*3/uL [facility] Lymphocytes Absolute Auto 0.5(L) 1.2 - 4.9 X10*3/uL [facility] Monocytes Absolute Auto 0.4 0.1 - 1.2 X10*3/uL [facility] Eosinophils Absolute Auto 0.1 0.0 - 0.4 X10*3/uL [facility] Basophils Absolute Auto 0.0 0.0 - 0.2 X10*3/uL [facility] NRBC Abs Auto 0.000 0.0 - 0.012 X10*3/uL [facility] 11/05/2024 1:04 PM EST 11/05/2024 1:07 PM EST us Generic External Data Provider LAB BLOOD ORDERAB LES Edited Result - Final [facility] [address] [place] [address] [phone] * Red blood count (11/05/2024 1:04 PM EST) Red Blood Cells: [id number] OP RC TRANSFUSED 11/05/24 1513 [facility] 11/05/2024 1:04 PM EST 11/05/2024 1:16 PM EST Generic External Data Provider LAB BLOOD ORDERAB LES Final Result Performing Organization Address [facility] de Phone Number [facility] [address] [place] [phone] [phone] * Type and screen (11/05/2024 1:04 PM EST) Blood Type OP [facility] Antibody Screen NEGATIVE [facility] 11/05/2024 1:04 PM EST 11/05/2024 1:16 PM EST Narrative [facility] - 11/05/2024 5:26 PM EST Results at Issue Units as of 11/05/24 1514 ...Test View Group: Most Recent HGB ?? HCT Results ?LABORATORYDate ?Time Test ?Result ?Flag Normal Range11/05/24 1304 HGB ?7.3 ?# L ??12.0-16.0 g/dl11/05/24 1304 HCT ?25.1 ?# L ??37.0-47.0 % Yes us Generic External Data Provider LAB BLOOD BANK TE ST ORDERABLES Final Result Performing Organization Address [facility]/ZIP Co de Phone Number [facility] [address] [place] [phone] * (ABNORMAL) Basic Metabolic Panel (11/05/2024 1:04 PM EST) Sodium 146(H) 135 - 145 mmol/L [facility] Potassium 4.4 3.3 - 5.1 mmol/L [facility] Chloride 112(H) 96 - 108 mmol/L [facility] Carbon Dioxide 28 22 - 29 mmol/L [facility] Anion Gap 10(L) 12 - 20 [facility] Urea Nitrogen (BUN) 23(H) 9 - 16 mg/dL [facility] Creatinine, Serum 0.68 0.5 - 1.4 mg/dL [facility] Creatinine Clr Calc Pharmacy 66.1 [facility] Comment:Provided height and weight: 160.02 cm,77.564 kg.eGFR (calculated from the MDRD study equation) and eCrCl(calculated from the Cockcroft-Gault equation) are based ondifferent parameters and may not yield comparable results.If eCrCl result is absurd, please check patient'sheight/weight. Estimated Glomerular Filt Rate >60 [facility] Comment:Chronic Kidney Disea se: Estimated GFR < 60 mL/min/1.65w7Kgbxsz Kidney Disease: Estimated GFR < 15 mL/min/1.73m2 Glucose 98 60 - 115 mg/dL [facility] Calcium 8.5 8.4 - 10.2 mg/dL [facility] 11/05/2024 1:04 PM EST 11/05/2024 1:07 PM EST us Generic External Data Provider LAB BLOOD ORDERAB LES Final Result [facility] [address] [place] [phone] from Last [address] [place] [address] [place] [id number] [employer] Care Teams Assurance Senior Manager Relationship Specialty Start Date End Date Name, MD Joseph [address] [place] [phone] PCP - General Family Medicine 01/21/22
--- OUTSIDE RECORDS SUMMARY | 2025-01-10 15:51 | XMS_ITS | Encounter Summary ---
Author Organization [employer] Address [address] [facility] [address] [place] [address] Care Team Providers Care Brim Pouncer Machine Operator Name Role Phone Name, Joseph KIM Primary Care Provider Reason for Visit * Reason Onset Date Comments Call Back Request 02/13/2024 Encounter Details Date Type Department Care Team ([facility] st Contact Info) Description 02/13/2024 Telephone [facility] [address] [place], [place] [phone] Name, MD Joseph [address] [place] [address] Call Back Request Social History Tobacco Use [...] it evaluated. Stated she originally called this film writer about her medications, but has since figured it all out. Will forward message to PCP as FYI. * Telephone Encounter - Althea Edouard - 02/13/2024 8:49 AM EDT Tc from pt requesting a call back in regards medications. documented in this encounter Plan of Treatment Upcoming Encounters Date Type Department Care Team (Late st Contact Info) Description 02/21/2025 10:30 AM EDT Telemedicine [facility] [address] [place] [address] Kaitlynn Landrum, RN documented as of this encounter Visit Diagnoses Not on filedocumented in this encounter Additional Health Concerns Assessment Noted Time PHQ-9 Depression Total Score: 0 01/30/20 24 11:07 AM EDT documented as of this encounter Care Teams Brim Pouncer Machine Operator Relationship Specialty Start Date End Date Name, MD Joseph [address] [place] [address] PCP - General Family Medicine 01/21/22 documented as of this encounter
--- OUTSIDE RECORDS SUMMARY | 2025-01-10 15:51 | XMS_ITS | Encounter Summary ---
Author Organization [employer] Address [address] [facility] [address] [place] [address] Care Team Providers Care Hospital Director Name Role Phone Name, Joseph KIM Primary Care Provider [phone] Encounter Details Date Type Department Care Team ([facility] st Contact Info) Description 07/26/2024 Orders Only [facility] [address] [place], [place] [phone] Name, MD Joseph [address] [place] [address] Iron deficiency anemia, unspecified iron deficiency anemia [...] Info) Description 02/21/2025 10:30 AM EDT Telemedicine [facility] [address] [place] [address] Kaitlynn Landrum RN documented as of this encounter Visit Diagnoses Diagnosis Iron deficiency anemia, unspecified iron deficiency anemia type documented in this encounter Additional Health Concerns Assessment Noted Time PHQ-9 Depression Total Score: 0 01/30/20 24 11:07 AM EDT documented as of this encounter Care Teams Hospital Director Relationship Specialty Start Date End Date Name, MD Joseph [address] [place] [address] PCP - General Family Medicine 01/21/22 documented as of this encounter
--- OUTSIDE RECORDS SUMMARY | 2025-01-10 15:51 | XMS_ITS | Encounter Summary ---
Author Organization [facility] Address [address] [place] [address] Care Team Providers Care Flame Planer Name Role Phone Name, Joseph KIM Primary Care Provider [phone] Encounter Details Date Type Department Care Team (Late Contact Info) Description 09/01/2022 Orders Only [address] [address] Cheryl García, RN Social History Tobacco Use [...] Department Care Team (Late Contact Info) Description 02/21/2025 10:30 AM EDT Telemedicine [address] [address] Kaitlynn Landrum, SUNSHINE Pending Results Name Type [...] Troponin I (03/20/2023 2:31 PM EDT) Pathologist [facility] TROPONIN I HIGH SENSITIVITY 5.0 <3.5 - 17.0 ng/L [facility] Comment:The [facility] high sens itivity Troponin-I results should beused in conjunction with other diagnostic information suchas ECG, clinical observations and information, and patientsymptoms to aid in the diagnosis of [place]. 03/20/2023 2:31 PM EDT 03/20/2023 2:35 PM EDT us [facility] External Provider LAB BLO OD ORDERABLES Final Result [facility] [address] [place] [phone] * (ABNORMAL) Drug Monitoring, Panel 1, Screen, Urine (03/20/2023 11:21 AM EDT) Pathologist [facility] Opiate Screen Urine Not Detected Not Detect [facility] Comment:Opiate cut-off is 30 0 ng/mL.Positive results are unconfirmed and should not be used fornon-medical purposes. Barbiturates, Urine Not Detected Not Detect [facility] Comment:Barbiturate cut-off is 200 ng/mL.Positive results are unconfirmed and should not be used fornon-medical purposes. Phencyclidine Screen Urine Not Detected Not Detect [facility] Comment:Phencyclidine cut-of f is 25 ng/mL.Positive results are unconfirmed and should not be used fornon-medical purposes. Amphetamine Screen Urine Not Detected Not Detect [facility] Comment:Amphetamine cut-off is 1000 ng/mL.Positive results are unconfirmed and should not be used fornon-medical purposes. Benzodiazepines Screen Urine Not Detected Not Detect [facility] Comment:Benzodiazepine cut-o ff is 200 ng/mL.Positive results are unconfirmed and should not be used fornon-medical purposes. Cocaine Screen Urine Not Detected Not Detect [facility] Comment:Cocaine cut-off is 3 00 ng/mL.Positive results are unconfirmed and should not be used fornon-medical purposes. Cannabinoid Screen Urine POSITIVE(A) Not Detect [facility] Comment:Cannabinoid cut-off is 50 ng/mL.Positive results are unconfirmed and should not be used fornon-medical purposes. FENTANYL URINE Not Detected Not Detect [facility] Comment:Fentanyl cut-off is 1 ng/mL.Positive results are unconfirmed and should not be used fornon-medical purposes. 03/20/2023 11:2 1 AM EDT 03/20/2023 11:53 AM EDT [facility] External Provider LAB URI NE ORDERABLES Final Result [facility] [address] [place] [address] [phone] * (ABNORMAL) Urinalysis, Complete, with Reflex to Culture (03/20/2023 11:21 AM EDT) Color Urine Yellow [facility] Appearance Urine Cloudy [facility] PH 5.5 5.0 - 9.0 [facility] Glucose Urine UA Negative Negative mg/dL [facility] Urine Blood Negative Negative [facility] Specific [place] - Urine 1.010 1.005 - 1.025 [facility] Urine Protein Negative Neg-Trace mg/dL [facility] Urine Ketones Negative Negative mg/dL [facility] Nitrite Urine Negative Negative [facility] Leukocyte Esterase Urine Trace(A) Negative [facility] RBC Urine 3-5(A) 0 - 2 /HPF [facility] Urine WBC 0-5 0 - 5 /HPF [facility] Urine Squamous Epithelial Cell 6-10 0 - 2 /HPF [facility] Urine Bacteria Trace None Seen [facility] Hyaline Casts, Urine 0-2 0 - 2 /LPF [facility] 03/20/2023 11:2 1 AM EDT 03/20/2023 11:24 AM EDT Narrative [facility] - 03/20/2023 11:30 AM EDT [id number], Clean Catch [facility] External Provider LAB URI NE ORDERABLES Final Result Performing Organization Address [facility]/ZIP Co de Phone Number [facility] [address] [place] [phone] * Ethanol (03/20/2023 11:11 AM EDT) ETHANOL (MG/DL) IN SER/PLAS <10 mg/dL [facility] Comment:Serum/plasma ethanol results are to be used formedical/treatment purposes only. 03/20/2023 11:1 1 AM EDT 03/20/2023 11:19 AM EDT [facility] External Provider LAB BLO OD ORDERABLES Final Result Performing Organization Address [facility] Co de Phone Number [facility] [address] [place] [phone] * High Sensitivity Troponin I (03/20/2023 11:11 AM EDT) [facility] TROPONIN I HIGH SENSITIVITY 4.9 <3.5 - 17.0 ng/L [facility] Comment:The [facility] high sens itivity Troponin-I results should beused in conjunction with other diagnostic information suchas ECG, clinical observations and information, and patientsymptoms to aid in the diagnosis of [place]. 03/20/2023 11:1 1 AM EDT 03/20/2023 11:19 AM EDT [facility] External Provider LAB BLO OD ORDERABLES Final Result Performing Organization Address [facility] de Phone Number [facility] [address] [place] [phone] * B Type Natriuretic Peptide (BNP) (03/20/2023 11:11 AM EDT) [facility] B Type Natriuretic Peptide 94 <100 pg/mL [facility] Comment:For those patients w ho are being treated with Natrecor(nesiritide, recombinant BNP), BNP testing should beperformed at least two hours post treatment in order toensure that only endogenous levels of BNP are detected. 03/20/2023 11:1 1 AM EDT 03/20/2023 11:19 AM EDT [facility] External Provider LAB BLO OD ORDERABLES Final Result Performing Organization Address [facility] Co de Phone Number [facility] [address] [place] [phone] * Magnesium (03/20/2023 11:11 AM EDT) [facility] Magnesium 2.1 1.6 - 2.6 mg/dL [facility] 03/20/2023 11:1 1 AM EDT 03/20/2023 11:19 AM EDT [facility] External Provider LAB BLO OD ORDERABLES Final Result [facility] [address] [place] [address] [phone] * (ABNORMAL) Basic Metabolic Panel (03/20/2023 11:11 AM EDT) Sodium 145 135 - 145 mmol/L [facility] Potassium 4.4 3.3 - 5.1 mmol/L [facility] Chloride 109(H) 96 - 108 mmol/L [facility] Carbon Dioxide 29 22 - 29 mmol/L [facility] Anion Gap 11(L) 12 - 20 [facility] Urea Nitrogen (BUN) 15 9 - 16 mg/dL [facility] Creatinine, Serum 0.73 0.5 - 1.4 mg/dL [facility] Creatinine Clr Calc Pharmacy 63.7 [facility] Comment:Provided height and weight: 160.02 cm,80.2 kg.eGFR (calculated from the MDRD study equation) and eCrCl(calculated from the Cockcroft-Gault equation) are based ondifferent parameters and may not yield comparable results.If eCrCl result is absurd, please check patient'sheight/weight. Estimated Glomerular Filt Rate >60 [facility] Comment:NOTE: For -Am erican individuals, multiply the result by 1.210.Chronic Kidney Disease: Estimated GFR < 60 mL/min/1.79y1Gfrmul Kidney Disease: Estimated GFR < 15 mL/min/1.73m2 Glucose 92 60 - 115 mg/dL [facility] Calcium 9.4 8.4 - 10.2 mg/dL [facility] 03/20/2023 11:1 1 AM EDT 03/20/2023 11:19 AM EDT [facility] External Provider LAB BLO OD ORDERABLES Final Result [facility] [address] [place] [phone] * (ABNORMAL) Hepatic Function Panel (03/20/2023 11:11 AM EDT) Bilirubin, Total 0.8 0.0 - 1.0 mg/dL [facility] Bilirubin, Direct 0.2 0.0 - 0.5 mg/dL [facility] Aspartate Amino Transferase 17 5 - 31 U/L [facility] Alanine Aminotransferase 12 0 - 31 U/L [facility] Total Protein 6.2(L) 6.5 - 8.0 g/dL [facility] Albumin Level 3.8 3.5 - 5.0 g/dL [facility] Alkaline Phosphatase 58 39 - 117 U/L [facility] 03/20/2023 11:1 1 AM EDT 03/20/2023 11:19 AM EDT us [facility] External Provider LAB BLO OD ORDERABLES Final Result [facility] [address] [place] [phone] * COVID-19 ID NOW (BISHOP) (03/20/2023 11:11 AM EDT) IDNOW SERIAL# [id number] [facility] COVID-19 TEST Negative Negative [facility] COVID-19 NOTE See Note [facility] Comment: Results are for the identification of SARS-CoV2 RNA. TheSARS-CoV2 RNA is generally detectable in respiratory samplesduring the acute phase of infection. Positive results areindicative of the presence of SARS-CoV-2 RNA; clinicalcorrelation with patient history and other diagnosticinformation is necessary to determine patient infectionstatus. Positive results do not rule out bacterial infectionor co- infection with other viruses.Testing facilities within the [facility] and itsterritories are required to report [...] use by authorized laboratories.Testing performed on the Qter[employer] ID NOW utilizing NAAT. 03/20/2023 11:1 1 AM EDT 03/20/2023 11:18 AM EDT us [facility] Exter nal Provider LAB MOLECULAR DIAGNOSTICS ORDERABLES Final Result [facility] [address] [place] [phone] * (ABNORMAL) CBC auto differential (03/20/2023 11:11 AM EDT) White Blood Count 6.0 4.8 - 10.8 X10*3/uL [facility] Red Blood Count 3.33(L) 4.20 - 5.50 X10*6/uL [facility] Hemoglobin 10.0(L) 12.0 - 16.0 g/dl [facility] Hematocrit 32.1(L) 37.0 - 47.0 % [facility] Mean Corpuscular Volume 96.4 80.0 - 98.0 fL [facility] Mean Corpuscular Hemoglobin 30.0 27.0 - 33.0 pg [facility] Mean Corpuscular HGB Conc 31.2 31.0 - 35.0 g/dl [facility] Red Cell Distribution Width 15.0 11.0 - 16.0 % [facility] Platelet Count 71(L) 160 - 400 X10*3/uL [facility] Neutrophils Percent Auto 71.3 45 - 73 % [facility] Imm Gran Pct Auto 0.2 0.0 - 0.4 % [facility] Lymphocytes Percent Auto 14.5(L) 20 - 40 % [facility] Monocytes Percent Auto 9.6 2 - 11 % [facility] Eosinophils Percent Auto 3.7 0 - 4 % [facility] Basophils Percent Auto 0.7 0 - 2 % [facility] NRBC Pct Auto 0.0 0.0 - 0.2 /100WBC [facility] Neutrophils Absolute Auto 4.3 2.0 - 8.3 x10*3/uL [facility] Imm Gran Abs Auto 0.01 0.00 - 0.03 X10*3/uL [facility] Lymphocytes Absolute Auto 0.9(L) 1.2 - 4.9 X10*3/uL [facility] Monocytes Absolute Auto 0.6 0.1 - 1.2 X10*3/uL [facility] Eosinophils Absolute Auto 0.2 0.0 - 0.4 X10*3/uL [facility] Basophils Absolute Auto 0.0 0.0 - 0.2 X10*3/uL [facility] NRBC Abs Auto 0.000 0.0 - 0.012 X10*3/uL [facility] 03/20/2023 11:1 1 AM EDT 03/20/2023 11:19 AM EDT [facility] External Provider LAB BLO OD ORDERABLES Final Result Performing Organization Address City/State/[facility] Co de Phone Number [facility] [address] [place] [phone] * Prothrombin Time-INR (03/20/2023 11:11 AM EDT) Prothrombin Time 13.0 10.0 - 13.1 SEC [facility] INTERNATIONAL NORM RATIO 1.1 0.9 - 1.1 [facility] Comment:INTERNATIONAL NORMAL IZED RATIO (INR) [...] AM EDT 03/20/2023 11:19 AM EDT us [facility] External Provider LAB BLO OD ORDERABLES Final Result [facility] [address] [place] [phone] * (ABNORMAL) CBC (12/09/2022 5:40 AM EDT) White Blood Count 6.7 4.8 - 10.8 X10*3/uL [facility] Red Blood Count 2.88(L) 4.20 - 5.50 X10*6/uL [facility] Hemoglobin 7.0(LL) 12.0 - 16.0 g/dl [facility] Comment:Critical HGB sent by a secure message and confirmed byMERVIN MOSQUERA on 12/09/22 at 0726 by CODIE. Hematocrit 24.2(L) 37.0 - 47.0 % [facility] Mean Corpuscular Volume 84.0 80.0 - 98.0 fL [facility] Mean Corpuscular Hemoglobin 24.3(L) 27.0 - 33.0 pg [facility] Mean Corpuscular HGB Conc 28.9(L) 31.0 - 35.0 g/dl [facility] Red Cell Distribution Width 19.8(H) 11.0 - 16.0 % [facility] Platelet Count 59(L) 160 - 400 X10*3/uL [facility] NRBC Pct Auto 0.0 0.0 - 0.2 /100WBC [facility] NRBC Abs Auto 0.000 0.0 - 0.012 X10*3/uL [facility] 12/09/2022 5:40 AM EDT 12/09/2022 6:43 AM EDT us [facility] External Provider LAB BLO OD ORDERABLES Final Result [facility] [address] [place] [phone] * (ABNORMAL) CBC auto differential (12/08/2022 5:58 AM EDT) White Blood Count 8.5 4.8 - 10.8 X10*3/uL [facility] Red Blood Count 2.92(L) 4.20 - 5.50 X10*6/uL [facility] Hemoglobin 6.9(LL) 12.0 - 16.0 g/dl [facility] Comment:Critical HGB sent by a secure message and confirmed byYUDITH on 12/08/22 at 0846 by YAZAN. Hematocrit 24.2(L) 37.0 - 47.0 % [facility] Mean Corpuscular Volume 82.9 80.0 - 98.0 fL [facility] Mean Corpuscular Hemoglobin 23.6(L) 27.0 - 33.0 pg [facility] Mean Corpuscular HGB Conc 28.5(L) 31.0 - 35.0 g/dl [facility] Red Cell Distribution Width 19.7(H) 11.0 - 16.0 % [facility] Platelet Count 77(L) 160 - 400 X10*3/uL [facility] Neutrophils Percent Auto 77.9(H) 45 - 73 % [facility] Imm Gran Pct Auto 0.4 0.0 - 0.4 % [facility] Lymphocytes Percent Auto 8.6(L) 20 - 40 % [facility] Monocytes Percent Auto 12.5(H) 2 - 11 % [facility] Eosinophils Percent Auto 0.2 0 - 4 % [facility] Basophils Percent Auto 0.4 0 - 2 % [facility] NRBC Pct Auto 0.0 0.0 - 0.2 /100WBC [facility] Neutrophils Absolute Auto 6.7 2.0 - 8.3 x10*3/uL [facility] Imm Gran Abs Auto 0.03 0.00 - 0.03 X10*3/uL [facility] Lymphocytes Absolute Auto 0.7(L) 1.2 - 4.9 X10*3/uL [facility] Monocytes Absolute Auto 1.1 0.1 - 1.2 X10*3/uL [facility] Eosinophils Absolute Auto 0.0 0.0 - 0.4 X10*3/uL [facility] Basophils Absolute Auto 0.0 0.0 - 0.2 X10*3/uL [facility] NRBC Abs Auto 0.000 0.0 - 0.012 X10*3/uL [facility] 12/08/2022 5:58 AM EDT 12/08/2022 6:50 AM EDT us [facility] External Provider LAB BLO OD ORDERABLES Edited Result - Final [facility] [address] [place] [phone] * (ABNORMAL) Basic Metabolic Panel, Fasting (12/08/2022 5:58 AM EDT) Sodium 140 135 - 145 mmol/L [facility] Potassium 4.3 3.3 - 5.1 mmol/L [facility] Chloride 106 96 - 108 mmol/L [facility] Carbon Dioxide 24 22 - 29 mmol/L [facility] Anion Gap 14 12 - 20 [facility] Urea Nitrogen (BUN) 13 9 - 16 mg/dL [facility] Creatinine, Serum 0.73 0.5 - 1.4 mg/dL [facility] Creatinine Clr Calc Pharmacy 62.7 [facility] Comment:Provided height and weight: 160.02 cm,78.01 kg.eGFR (calculated from the MDRD study equation) and eCrCl(calculated from the Cockcroft-Gault equation) are based ondifferent parameters and may not yield comparable results.If eCrCl result is absurd, please check patient'sheight/weight. Estimated Glomerular Filt Rate >60 [facility] Comment:NOTE: For -Am erican individuals, multiply the result by 1.210.Chronic Kidney Disease: Estimated GFR < 60 mL/min/1.63l1Zwympf Kidney Disease: Estimated GFR < 15 mL/min/1.73m2 Glucose Fasting 110(H) 60 - 99 mg/dL [facility] Comment:A fasting glucose fr om 100-125 mg/dl is considered impaired(pre-diabetes). Calcium 8.2(L) 8.4 - 10.2 mg/dL [facility] 12/08/2022 5:58 AM EDT 12/08/2022 6:58 AM EDT [facility] External Provider LAB BLO OD ORDERABLES Final Result Performing Organization Address [facility]/ZIP Co de Phone Number [facility] [address] [place] [phone] * Slide Review (12/07/2022 4:40 PM EDT) Slide Review VERIFIED [facility] 12/07/2022 4:40 PM EDT 12/07/2022 4:48 PM EDT [facility] External Provider LAB BLO OD ORDERABLES Final Result Performing Organization Address [facility] de Phone Number [facility] [address] [place] [phone] * (ABNORMAL) CBC auto differential (12/07/2022 4:40 PM EDT) White Blood Count 7.5 4.8 - 10.8 X10*3/uL [facility] Red Blood Count 3.04(L) 4.20 - 5.50 X10*6/uL [facility] Hemoglobin 7.3(L) 12.0 - 16.0 g/dl [facility] Hematocrit 25.3(L) 37.0 - 47.0 % [facility] Mean Corpuscular Volume 83.2 80.0 - 98.0 fL [facility] Mean Corpuscular Hemoglobin 24.0(L) 27.0 - 33.0 pg [facility] Mean Corpuscular HGB Conc 28.9(L) 31.0 - 35.0 g/dl [facility] Red Cell Distribution Width 19.8(H) 11.0 - 16.0 % [facility] Platelet Count 70(L) 160 - 400 X10*3/uL [facility] Neutrophils Percent Auto 89.8(H) 45 - 73 % [facility] Imm Gran Pct Auto 0.3 0.0 - 0.4 % [facility] Lymphocytes Percent Auto 5.0(L) 20 - 40 % [facility] Monocytes Percent Auto 3.4 2 - 11 % [facility] Eosinophils Percent Auto 0.8 0 - 4 % [facility] Basophils Percent Auto 0.7 0 - 2 % [facility] NRBC Pct Auto 0.0 0.0 - 0.2 /100WBC [facility] Neutrophils Absolute Auto 6.8 2.0 - 8.3 x10*3/uL [facility] Imm Gran Abs Auto 0.02 0.00 - 0.03 X10*3/uL [facility] Lymphocytes Absolute Auto 0.4(L) 1.2 - 4.9 X10*3/uL [facility] Monocytes Absolute Auto 0.3 0.1 - 1.2 X10*3/uL [facility] Eosinophils Absolute Auto 0.1 0.0 - 0.4 X10*3/uL [facility] Basophils Absolute Auto 0.1 0.0 - 0.2 X10*3/uL [facility] NRBC Abs Auto 0.000 0.0 - 0.012 X10*3/uL [facility] 12/07/2022 4:40 PM EDT 12/07/2022 4:48 PM EDT us [facility] External Provider LAB BLO OD ORDERABLES Edited Result - Final Performing Organization Address [facility] Co de Phone Number [facility] [address] [place] [phone] * COVID-19 ID NOW (BISHOP) (12/07/2022 1:41 PM EDT) IDNOW SERIAL# [id number] [facility] COVID-19 TEST Negative Negative [facility] Comment:[place] [id number] COVID-19 NOTE See Note [facility] Comment: Results are for the identification of SARS-CoV2 RNA. TheSARS-CoV2 RNA is generally detectable in respiratory samplesduring the acute phase of infection. Positive results areindicative of the presence of SARS-CoV-2 RNA; clinicalcorrelation with patient history and other diagnosticinformation is necessary to determine patient infectionstatus. Positive results do not rule out bacterial infectionor co- infection with other viruses.Testing facilities within the [facility] and itsterritories are required to report [...] 1:41 PM EDT 12/07/2022 1:58 PM EDT [facility] Exter nal Provider LAB MOLECULAR DIAGNOSTICS ORDERABLES Final Result Performing Organization Address [facility] Co de Phone Number [facility] [address] [place] [phone] * (ABNORMAL) CBC auto differential (12/07/2022 1:25 PM EDT) White Blood Count 5.6 4.8 - 10.8 X10*3/uL [facility] Red Blood Count 3.15(L) 4.20 - 5.50 X10*6/uL [facility] Hemoglobin 7.5(L) 12.0 - 16.0 g/dl [facility] Hematocrit 26.2(L) 37.0 - 47.0 % [facility] Mean Corpuscular Volume 83.2 80.0 - 98.0 fL [facility] Mean Corpuscular Hemoglobin 23.8(L) 27.0 - 33.0 pg [facility] Mean Corpuscular HGB Conc 28.6(L) 31.0 - 35.0 g/dl [facility] Red Cell Distribution Width 19.8(H) 11.0 - 16.0 % [facility] Platelet Count 69(L) 160 - 400 X10*3/uL [facility] Neutrophils Percent Auto 76.4(H) 45 - 73 % [facility] [facility] Imm Gran Pct Auto 0.2 0.0 - 0.4 % [facility] Lymphocytes Percent Auto 11.9(L) 20 - 40 % [facility] Monocytes Percent Auto 9.0 2 - 11 % [facility] Eosinophils Percent Auto 1.6 0 - 4 % [facility] Basophils Percent Auto 0.9 0 - 2 % [facility] NRBC Pct Auto 0.0 0.0 - 0.2 /100WBC [facility] Neutrophils Absolute Auto 4.3 2.0 - 8.3 x10*3/uL [facility] Imm Gran Abs Auto 0.01 0.00 - 0.03 X10*3/uL [facility] Lymphocytes Absolute Auto 0.7(L) 1.2 - 4.9 X10*3/uL [facility] Monocytes Absolute Auto 0.5 0.1 - 1.2 X10*3/uL [facility] Eosinophils Absolute Auto 0.1 0.0 - 0.4 X10*3/uL [facility] Basophils Absolute Auto 0.1 0.0 - 0.2 X10*3/uL [facility] NRBC Abs Auto 0.000 0.0 - 0.012 X10*3/uL [facility] 12/07/2022 1:25 PM EDT 12/07/2022 1:27 PM EDT [facility] External Provider LAB BLO OD ORDERABLES Final Result Performing Organization Address [facility] de Phone Number [facility] [address] [place] [phone] * (ABNORMAL) B Type Natriuretic Peptide (BNP) (10/12/2022 4:50 PM EST) B Type Natriuretic Peptide 135(H) <100 pg/mL [facility] Comment:For those patients w ho are being treated with Natrecor(nesiritide, recombinant BNP), BNP testing should beperformed at least two hours post treatment in order toensure that only endogenous levels of BNP are detected. 10/12/2022 4:50 PM EST 10/12/2022 6:16 PM EST [facility] External Provider LAB BLO OD ORDERABLES Final Result Performing Organization Address [facility] de Phone Number [facility] [address] [place] [phone] * Slide Review (10/12/2022 4:50 PM EST) Slide Review VERIFIED [facility] 10/12/2022 4:50 PM EST 10/12/2022 5:10 PM EST [facility] External Provider LAB BLO OD ORDERABLES Final Result Performing Organization Address [facility] Co de Phone Number [facility] [address] [place] [phone] * (ABNORMAL) CBC auto differential (10/12/2022 4:50 PM EST) White Blood Count 5.5 4.8 - 10.8 X10*3/uL [facility] Red Blood Count 2.42(L) 4.20 - 5.50 X10*6/uL [facility] Hemoglobin 4.8(LL) 12.0 - 16.0 g/dl [facility] Comment:Results of HGB, HCT called to and read back by Roseline 10/12/22 at 1730 by GRIS. Hematocrit 18.5(LL) 37.0 - 47.0 % [facility] Mean Corpuscular Volume 76.4(L) 80.0 - 98.0 fL [facility] Mean Corpuscular Hemoglobin 19.8(L) 27.0 - 33.0 pg [facility] Mean Corpuscular HGB Conc 25.9(L) 31.0 - 35.0 g/dl [facility] Red Cell Distribution Width 17.9(H) 11.0 - 16.0 % [facility] Platelet Count 54(L) 160 - 400 X10*3/uL [facility] Neutrophils Percent Auto 67.6 45 - 73 % [facility] Imm Gran Pct Auto 0.2 0.0 - 0.4 % [facility] Lymphocytes Percent Auto 20.0 20 - 40 % [facility] Monocytes Percent Auto 9.9 2 - 11 % [facility] Eosinophils Percent Auto 1.8 0 - 4 % [facility] Basophils Percent Auto 0.5 0 - 2 % [facility] NRBC Pct Auto 0.0 0.0 - 0.2 /100WBC [facility] Neutrophils Absolute Auto 3.7 2.0 - 8.3 x10*3/uL [facility] Imm Gran Abs Auto 0.01 0.00 - 0.03 X10*3/uL [facility] Lymphocytes Absolute Auto 1.1(L) 1.2 - 4.9 X10*3/uL [facility] Monocytes Absolute Auto 0.5 0.1 - 1.2 X10*3/uL [facility] Eosinophils Absolute Auto 0.1 0.0 - 0.4 X10*3/uL [facility] Basophils Absolute Auto 0.0 0.0 - 0.2 X10*3/uL [facility] NRBC Abs Auto 0.000 0.0 - 0.012 X10*3/uL [facility] 10/12/2022 4:50 PM EST 10/12/2022 5:10 PM EST us [facility] External Provider LAB BLO OD ORDERABLES Edited Result - Final [facility] [address] [place] [phone] documented in this encounter Visit Diagnoses Not on filedocumented in this encounter Care Teams Flame Planer Relationship Specialty Start Date End Date Name, MD Joseph [address] [place] [phone] PCP - General Family Medicine 01/21/22 documented as of this encounter
--- OUTSIDE RECORDS SUMMARY | 2025-01-10 15:52 | XMS_ITS | Encounter Summary ---
Author Organization [facility] [employer] [facility] Address [address] [place] [address] [address] [place] [address] Care Team Providers Care Dye Weigher Name Role Phone Name, Joseph KIM Primary Care Provider [phone] Encounter Details Date Type Department Care Team (Late Contact Info) Description 11/11/2022 Abstract [facility] MED[facility]INE [address] [place] [address] [phone] Name, MD Joseph [address] [place] [phone] Social History Tobacco Use Types Packs/Day Years [...] Upcoming Encounters Date Type Department Care Team ([facility] Contact Info) Description 02/21/2025 10:30 AM EDT Telemedicine [facility] [address] [place] [phone] Kaitlynn Landrum RN documented as of this encounter Visit Diagnoses Not on filedocumented in this encounter Additional Health Concerns Assessment Noted Time PHQ-9 Depression Total Score: 4 09/22/19 23 11:14 AM EST documented as of this encounter Care Teams Dye Weigher Relationship Specialty Start Date End Date Name, MD Joseph [address] [place] [address] PCP - General Family Medicine 01/21/22 documented as of this encounter
--- OUTSIDE RECORDS SUMMARY | 2025-01-10 15:52 | XMS_ITS | Encounter Summary ---
Author Organization [employer] Address [address] [facility] 7t [place] [address] Care Team Providers Care Marketing Database Coordinator Name Role Phone Name, Joseph KIM Primary Care Provider [phone] Encounter Details Date Type Department Care Team ([facility] st Contact Info) Description 08/02/2024 Orders Only [facility] MEDICINE [address] [place], [place] [phone] Name, MD Joseph [address] [place] [address] Iron deficiency anemia, unspecified iron deficiency anemia [...] 02/21/2025 10:30 AM EDT Telemedicine [facility] MEDICINE [address] [place] [address] Kaitlynn Landrum RN documented as of this encounter Visit Diagnoses Diagnosis Iron deficiency anemia, unspecified iron deficiency anemia type documented in this encounter Additional Health Concerns Assessment Noted Time PHQ-9 Depression Total Score: 0 01/30/20 24 11:07 AM EDT documented as of this encounter Care Teams Marketing Database Coordinator Relationship Specialty Start Date End Date Name, MD Joseph [address] [place] [address] PCP - General Family Medicine 01/21/22 documented as of this encounter
--- OUTSIDE RECORDS SUMMARY | 2025-01-10 15:52 | XMS_ITS | Encounter Summary ---
Author Organization [employer] Address [address] [facility] 7t [place] [address] Care Team Providers Care Hot Dimpling Machine Operator Name Role Phone Name, Joseph KIM Primary Care Provider [phone] Reason for Visit * Reason Onset Date Comments Med Refill 07/28/2023 Encounter Details Date Type Department Care Team ([facility] st Contact Info) Description 07/28/2023 Telephone [facility] MEDICINE [address] [place], [place] [phone] Name, MD Joseph [address] [place] [address] Med Refill Social History Tobacco Use Types [...] from patient requesting medication refill for HYDROcodone-acetaminophen ([place]) 7.5-325 MG tablet. documented in this encounter Plan of Treatment Upcoming Encounters Date Type Department Care Team (Late st Contact Info) Description 02/21/2025 10:30 AM EDT Telemedicine [facility] MEDICINE [address] [place] [address] Kaitlynn Landrum, SUNSH[place] documented as of this encounter Visit Diagnoses Not on filedocumented in this encounter Additional Health Concerns Assessment Noted Time PHQ-9 Depression Total Score: 4 09/22/19 23 11:14 AM EST documented as of this encounter Care Teams Hot Dimpling Machine Operator Relationship Specialty Start Date End Date Name, MD Joseph [address] [place] [address] PCP - General Family Medicine 01/21/22 documented as of this encounter
--- OUTSIDE RECORDS SUMMARY | 2025-01-10 15:52 | XMS_ITS | Encounter Summary ---
Author Organization [employer] Address [address] [facility] 7t [place] [address] Care Team Providers Care Mandarin Speaking Nanny Name Role Phone Name, Joseph KIM Primary Care Provider [phone] Reason for Visit * Reason Comments Med Refill Encounter Details Date Type Department Care Team ([facility] st Contact Info) Description 01/08/2025 Refill [facility] MED[facility]INE [address] [place], [place] [phone] Name, MD Joseph [address] [place], [place] [phone] Chronic pain syndrome; Chronic pain syndrome Social History Tobacco Use [...] encounter Miscellaneous Notes * Telephone Encounter - Maryjo Alexandra RN - 01/08/2025 4:04 PM EDT - metoprolol XL 25mg 90 day supply with 1 refill last sent 05/22/24. Refill appropriate and due, queued. -Xanax last picked up 28 day supply 12/09/24. Earliest fill date was 01/06/25. Next DEMAND PLANNING ANALYST visit scheduled for 02/21/25. Queued -percocet 28 day supply last picked up 12/17/24. Earliest fill date 01/14/25 (next Monday). documented in this encounter Plan of Treatment Upcoming Encounters Date Type Department Care Team (Late st Contact Info) Description 02/21/2025 10:30 AM EDT Telemedicine [facility] MEDICINE [address] [place] [address] Kaitlynn Landrum, SUNSHINE documented as of this encounter Visit Diagnoses Diagnosis Chronic pain syndrome documented in this encounter Additional Health Concerns Assessment Noted Time PHQ-9 Depression Total Score: 0 01/30/20 24 11:07 AM EDT documented as of this encounter Care Teams Mandarin Speaking Nanny Relationship Specialty Start Date End Date Name, MD Joseph [address] [place] [address] PCP - General Family Medicine 01/21/22 documented as of this encounter
--- OUTSIDE RECORDS SUMMARY | 2025-01-10 15:52 | XMS_ITS | Encounter Summary ---
Author Organization [employer] Address [address] [facility] 7t [place] [address] Care Team Providers Care Contact Acid Plant Operator Name Role Phone Name, Joseph KIM Primary Care Provider [phone] Encounter Details Date Type Department Care Team ([facility] st Contact Info) Description 08/30/2024 Orders Only [facility] MEDICINE [address] [place], [place] [phone] Name, MD Joseph [address] [place] [address] Iron deficiency anemia, unspecified iron deficiency anemia [...] Info) Description 02/21/2025 10:30 AM EDT Telemedicine [facility] MED[facility]INE [address] [place] [address] Kaitlynn Landrum RN documented as of this encounter Visit Diagnoses Diagnosis Iron deficiency anemia, unspecified iron deficiency anemia type documented in this encounter Additional Health Concerns Assessment Noted Time PHQ-9 Depression Total Score: 0 01/30/20 24 11:07 AM EDT documented as of this encounter Care Teams Contact Acid Plant Operator Relationship Specialty Start Date End Date Name, MD Joseph [address] [place] [address] PCP - General Family Medicine 01/21/22 documented as of this encounter
--- OUTSIDE RECORDS SUMMARY | 2025-01-10 15:52 | XMS_ITS | Encounter Summary ---
Author Organization [employer] Address [address] [facility] 7t [place] [address] Care Team Providers Care Shank Archer Name Role Phone Name, Joseph KIM Primary Care Provider [phone] Encounter Details Date Type Department Care Team ([facility] st Contact Info) Description 08/16/2024 Orders Only [facility] MEDICINE [address] [place], [place] [phone] Name, MD Joseph [address] [place] [address] Iron deficiency anemia, unspecified iron deficiency anemia [...] Info) Description 02/21/2025 10:30 AM EDT Telemedicine [facility] MEDICINE [address] [place] [address] Kaitlynn Landrum RN documented as of this encounter Visit Diagnoses Diagnosis Iron deficiency anemia, unspecified iron deficiency anemia type documented in this encounter Additional Health Concerns Assessment Noted Time PHQ-9 Depression Total Score: 0 01/30/20 24 11:07 AM EDT documented as of this encounter Care Teams Shank Archer Relationship Specialty Start Date End Date Name, MD Joseph [address] [place] [address] PCP - General Family Medicine 01/21/22 documented as of this encounter
--- OUTSIDE RECORDS SUMMARY | 2025-01-10 15:52 | XMS_ITS | Encounter Summary ---
Author Organization [employer] Address [address] [facility] 7t [place] [address] Care Team Providers Care Intermission Coordinator Name Role Phone Name, Joseph KIM Primary Care Provider [phone] Encounter Details Date Type Department Care Team ([facility] st Contact Info) Description 07/19/2024 Orders Only [facility] MEDICINE [address] [place], [place] [phone] Name, MD Joseph [address] [place] [address] Iron deficiency anemia, unspecified iron deficiency anemia [...] Info) Description 02/21/2025 10:30 AM EDT Telemedicine [facility] [address] [place] [phone] Kaitlynn Landrum RN documented as of this encounter Procedures Procedure Name Priority Date/Time Associated Diagnosis Comments CBC WITH AUTO DIFFERENTIAL Routine 07/23/2024 2:15 PM EST Iron deficiency anemia, unspecified iron deficiency anemia type documented in this encounter Results * (ABNORMAL) CBC auto differential (07/23/2024 2:15 PM EST) White Blood Count 9.9 4.8 - 10.8 X10*3/uL [facility] Red Blood Count 3.50(L) 4.20 - 5.50 X10*6/uL [facility] Hemoglobin 9.8(L) 12.0 - 16.0 g/dl [facility] Hematocrit 32.9(L) 37.0 - 47.0 % [facility] Mean Corpuscular Volume 94.0 80.0 - 98.0 fL [facility] Mean Corpuscular Hemoglobin 28.0 27.0 - 33.0 pg [facility] Mean Corpuscular HGB Conc 29.8(L) 31.0 - 35.0 g/dl [facility] Red Cell Distribution Width 19.3(H) 11.0 - 16.0 % [facility] Platelet Count 88(L) 160 - 400 X10*3/uL [facility] Comment:Confirmed by smear. Mean Platelet Volume TNP 9.4 - 12.3 fL [facility] Neutrophils Percent Auto 76.1(H) 45 - 73 % [facility] Imm Gran Pct Auto 0.3 0.0 - 0.4 % [facility] Lymphocytes Percent Auto 12.0(L) 20 - 40 % [facility] Monocytes Percent Auto 9.2 2 - 11 % [facility] Eosinophils Percent Auto 1.8 0 - 4 % [facility] Basophils Percent Auto 0.6 0 - 2 % [facility] NRBC Pct Auto 0.0 0.0 - 0.2 /100WBC [facility] Neutrophils Absolute Auto 7.6 2.0 - 8.3 x10*3/uL [facility] Imm Gran Abs Auto 0.03 0.00 - 0.03 X10*3/uL [facility] Lymphocytes Absolute Auto 1.2 1.2 - 4.9 X10*3/uL [facility] Monocytes Absolute Auto 0.9 0.1 - 1.2 X10*3/uL [facility] Eosinophils Absolute Auto 0.2 0.0 - 0.4 X10*3/uL [facility] Basophils Absolute Auto 0.1 0.0 - 0.2 X10*3/uL [facility] NRBC Abs Auto 0.000 0.0 - 0.012 X10*3/uL [facility] Blood Venous blood specimen / Unknown 07/23/2024 2:15 PM EST 07/23/2024 4:10 PM EST us Joseph Magana MD LAB BLOOD ORDERABLES Edited Resu lt - Final [facility] [address] [place] [address] [phone] documented in this encounter Visit Diagnoses Diagnosis Iron deficiency anemia, unspecified iron deficiency anemia type documented in this encounter Additional Health Concerns Assessment Noted Time PHQ-9 Depression Total Score: 0 01/30/20 24 11:07 AM EDT documented as of this encounter Care Teams Intermission Coordinator Relationship Specialty Start Date End Date Name, MD Joseph [address] [place] [address] PCP - General Family Medicine 01/21/22 documented as of this encounter
--- OUTSIDE RECORDS SUMMARY | 2025-01-10 15:52 | XMS_ITS | Encounter Summary ---
Author Organization [employer] Address [address] [facility] 7t [place] [address] Care Team Providers Care Manager Of Care Name Role Phone Name, Joseph KIM Primary Care Provider [phone] Encounter Details Date Type Department Care Team ([facility] st Contact Info) Description 08/23/2024 Orders Only [facility] MEDICINE [address] [place], [place] [phone] Name, MD Joseph [address] [place] [address] Iron deficiency anemia, unspecified iron deficiency anemia [...] Info) Description 02/21/2025 10:30 AM EDT Telemedicine [facility] MEDICINE [address] [place] [address] Kaitlynn Landrum RN documented as of this encounter Visit Diagnoses Diagnosis Iron deficiency anemia, unspecified iron deficiency anemia type documented in this encounter Additional Health Concerns Assessment Noted Time PHQ-9 Depression Total Score: 0 01/30/20 24 11:07 AM EDT documented as of this encounter Care Teams Manager Of Care Relationship Specialty Start Date End Date Name, MD Joseph [address] [place] [address] PCP - General Family Medicine 01/21/22 documented as of this encounter
--- OUTSIDE RECORDS SUMMARY | 2025-01-10 15:52 | XMS_ITS | Encounter Summary ---
Author Organization [employer] Address [address] [facility] 7t [place] [address] Care Team Providers Care Rn Document Improvement Name Role Phone Name, Joseph KIM Primary Care Provider [phone] Reason for Visit * Reason Onset Date Comments Nurse Triage 09/17/2024 Encounter Details Date Type Department Care Team ([facility] st Contact Info) Description 09/17/2024 Telephone [facility] MEDICINE [address] [place], [place] [phone] Name, MD Joseph [address] [place] [address] Nurse Triage Social History Tobacco Use Types [...] 12:38 PM EST Call returned to Susan Dustin for triage below. No answer LVM to return call to [facility] triage line [phone]. * Telephone Encounter - Salvador Diamond - 09/17/2024 12:36 PM EST Symptom: High Blood Pressure - Caller Reports Outcome: Transfer to a nurse or provider NOW! Reason: Trouble breathing The caller accepted this outcome. documented in this encounter Plan of Treatment Upcoming Encounters Date Type Department Care Team (Late st Contact Info) Description 02/21/2025 10:30 AM EDT Telemedicine [facility] MEDICINE [address] [place] [address] Kaitlynn Landrum RN documented as of this encounter Visit Diagnoses Not on filedocumented in this encounter Additional Health Concerns Assessment Noted Time PHQ-9 Depression Total Score: 0 01/30/20 24 11:07 AM EDT documented as of this encounter Care Teams Rn Document Improvement Relationship Specialty Start Date End Date Name, MD Joseph [address] [place] [address] PCP - General Family Medicine 01/21/22 documented as of this encounter
--- OUTSIDE RECORDS SUMMARY | 2025-01-10 15:52 | XMS_ITS | Encounter Summary ---
Author Organization [employer] Address [address] [facility] 7t [place] [address] Care Team Providers Care Dance Coach Name Role Phone Name, Joseph KIM Primary Care Provider [phone] Encounter Details Date Type Department Care Team ([facility] st Contact Info) Description 06/28/2024 Orders Only [facility] MEDICINE [address] [place], [place] [phone] Name, MD Joseph [address] [place] [address] Iron deficiency anemia, unspecified iron deficiency anemia [...] Info) Description 02/21/2025 10:30 AM EDT Telemedicine [facility] MEDICINE [address] [place] [phone] Kaitlynn Landrum RN documented as of this encounter Procedures Procedure Name Priority Date/Time Associated Diagnosis Comments CBC WITH AUTO DIFFERENTIAL Routine 07/03/2024 2:09 PM EDT Iron deficiency anemia, unspecified iron deficiency anemia type documented in this encounter Results * (ABNORMAL) CBC auto differential (07/03/2024 2:09 PM EDT) White Blood Count 7.3 4.8 - 10.8 X10*3/uL [facility] Red Blood Count 2.26(L) 4.20 - 5.50 X10*6/uL [facility] Hemoglobin 6.0(LL) 12.0 - 16.0 g/dl [facility] Comment:Results of HCG perez d to and read back by DR Cordova 07/03/24 at 1840 by ASHA. Hematocrit 20.4(LL) 37.0 - 47.0 % [facility] Comment:Results of HCT perez d to and read back by DR Cordova 07/03/24 at 1840 by ASHA. Mean Corpuscular Volume 90.3 80.0 - 98.0 fL [facility] Mean Corpuscular Hemoglobin 26.5(L) 27.0 - 33.0 pg [facility] Mean Corpuscular HGB Conc 29.4(L) 31.0 - 35.0 g/dl [facility] Red Cell Distribution Width 17.9(H) 11.0 - 16.0 % [facility] Platelet Count 60(L) 160 - 400 X10*3/uL [facility] Mean Platelet Volume TNP 9.4 - 12.3 fL [facility] Neutrophils Percent Auto 82.0(H) 45 - 73 % [facility] Imm Gran Pct Auto 0.5(H) 0.0 - 0.4 % [facility] Lymphocytes Percent Auto 9.3(L) 20 - 40 % [facility] Monocytes Percent Auto 7.0 2 - 11 % [facility] Eosinophils Percent Auto 0.8 0 - 4 % [facility] Basophils Percent Auto 0.4 0 - 2 % [facility] NRBC Pct Auto 0.0 0.0 - 0.2 /100WBC [facility] Neutrophils Absolute Auto 6.0 2.0 - 8.3 x10*3/uL [facility] Imm Gran Abs Auto 0.04(H) 0.00 - 0.03 X10*3/uL [facility] Lymphocytes Absolute Auto 0.7(L) 1.2 - 4.9 X10*3/uL [facility] Monocytes Absolute Auto 0.5 0.1 - 1.2 X10*3/uL [facility] Eosinophils Absolute Auto 0.1 0.0 - 0.4 X10*3/uL [facility] Basophils Absolute Auto 0.0 0.0 - 0.2 X10*3/uL [facility] NRBC Abs Auto 0.000 0.0 - 0.012 X10*3/uL [facility] Blood Venous blood specimen / Unknown 07/03/2024 2:09 PM EDT 07/03/2024 4:15 PM EDT us Joseph Name LAB BLOOD ORDERABLES Edited Resu lt - Final [facility] [address] [place] [phone] documented in this encounter Visit Diagnoses Diagnosis Iron deficiency anemia, unspecified iron deficiency anemia type documented in this encounter Additional Health Concerns Assessment Noted Time PHQ-9 Depression Total Score: 0 01/30/20 24 11:07 AM EDT documented as of this encounter Care Teams Dance Coach Relationship Specialty Start Date End Date Name, MD Joseph [address] [place] [address] PCP - General Family Medicine 01/21/22 documented as of this encounter
--- OUTSIDE RECORDS SUMMARY | 2025-01-10 15:52 | XMS_ITS | Encounter Summary ---
Author Organization [employer] Address [address] [facility] [address] [place] [address] Care Team Providers Care Tomb Maker Helper Name Role Phone Name, Joseph KIM Primary Care Provider [phone] Encounter Details Date Type Department Care Team ([facility] st Contact Info) Description 09/06/2024 Orders Only [facility] MEDICINE [address], [place] [id number] Name, MD Joseph [address] [place] [address] Iron deficiency anemia, unspecified iron deficiency anemia [...] Info) Description 02/21/2025 10:30 AM EDT Telemedicine [facility] MEDICINE [address] [place] [address] Kaitlynn Landrum RN documented as of this encounter Visit Diagnoses Diagnosis Iron deficiency anemia, unspecified iron deficiency anemia type documented in this encounter Additional Health Concerns Assessment Noted Time PHQ-9 Depression Total Score: 0 01/30/20 24 11:07 AM EDT documented as of this encounter Care Teams Tomb Maker Helper Relationship Specialty Start Date End Date Name, MD Joseph [address] [place] [address] PCP - General Family Medicine 01/21/22 documented as of this encounter
--- OUTSIDE RECORDS SUMMARY | 2025-01-10 15:52 | XMS_ITS | Continuity of Care Document ---
Author Name [facility] Organization [facility] Care Team Providers Care Director On Air Name Role Phone [facility] Unavailable Unavailable Social History Combined list of available smoking, tobacco, and other social history from [facility] of Defense and [facility] facilities. Social History Type Response Date Comment Sourc e This section is an empty social history section. [facility]
[2025-01-10 16:20] LABS: Basophils Percent Auto 0.7 % (0-2); Hemoglobin 9.1 g/dl (12.0-16.0); Monocytes Percent Auto 8.8 % (2-11); Red Cell Distribution Width 17.2 % (11.0-16.0); SCAN SMEAR FLAG 1
[2025-01-10 16:22] LABS: Basophils Absolute Auto 0.1 X10*3/uL (0.0-0.2); Eosinophils Absolute Auto 0.3 X10*3/uL (0.0-0.4); Hematocrit 29.5 % (37.0-47.0); Imm Gran Abs Auto 0.03 X10*3/uL (0.00-0.03); Imm Gran Pct Auto 0.3 % (0.0-0.4); Lymphocytes Absolute Auto 1.5 X10*3/uL (1.2-4.9); Lymphocytes Percent Auto 13.9 % (20-40); MANUAL DIFF FLAG SCAN; Mean Corpuscular HGB Conc 30.8 g/dl (31.0-35.0); Mean Corpuscular Hemoglobin 30.5 pg (27.0-33.0); Monocytes Absolute Auto 0.9 X10*3/uL (0.1-1.2); Neutrophils Absolute Auto 7.7 x10*3/uL (2.0-8.3); Neutrophils Percent Auto 73.3 % (45-73); PLT CLUMP 1; Red Blood Count 2.98 X10*6/uL (4.20-5.50)
[2025-01-10 16:23] LABS: PLT ABN DIST 1
[2025-01-10 16:24] LABS: White Blood Count 10.6 X10*3/uL (4.8-10.8)
[2025-01-10 17:26] LABS: Platelet Count 125 X10*3/uL (160-400); SLIDE REVIEW VERIFIED
== END 2025-01-10 15:17 | disposition home or self-care (01) ==
LOC: HO.HMGCLDS 15:16
PROVIDERS: PCP Internal Medicine Geriatric Medicine; Referring Provider Internal Medicine Cardiovascular Disease; Visit Provider Internal Medicine Geriatric Medicine
DX: D50.9 Iron deficiency anemia, unspecified (principal)
CPT/HCPCS: 36415; 85025

== ENCOUNTER 2025-04-26 20:18 | Inpatient (IN) | payer OTHER, SELFPAY ==
--- NOTE | 2025-04-26 | ECG_ITS ---
Test Reason : WEAKNESS Blood Pressure : */* mmHG Vent. Rate : 96 BPM Atrial Rate : 96 BPM P-R Int : 154 ms QRS Dur : 88 ms QT Int : 384 ms P-R-T Axes : 57 -35 36 degrees QTcB Int : 485 ms Normal sinus rhythm Possible Left atrial enlargement Left axis deviation Inferior infarct (cited on or before 27-Jan-2022) Cannot rule out Anterior infarct , age undetermined Abnormal ECG When compared with ECG of 12-Jun-2024 15:15, No significant changes seen Referred By: Generic ED Physician Electronically Signed By: TEDDY MOTLEY
--- NOTE | ~2025-04-26 | XR_ITS ---
CLINICAL HISTORY: fall, pain Right knee four views Comparison: None provided Findings: No acute fracture or dislocation noted. No significant joint effusion identified. Prosthesis demonstrates normal alignment. There is no evidence for component loosening. Impression: No acute bony abnormality This document has been electronically signed by: Carlos Esquivel MD on 04/26/2025 23:07:01
--- NOTE | ~2025-04-26 | XR_ITS ---
CLINICAL HISTORY: low saturations 1 view chest x-ray Comparison: CR/SR - XR CHEST 2 VIEWS - 11/05/24 13:51 EST CR/MN/SR - XR CHEST 1 VIEW - 06/12/24 14:59 EDT Findings: The lungs exhibit similar minimal interstitial change. Normal size heart. No acute fracture. IMPRESSION: Minimal chronic interstitial change. No acute process. This document has been electronically signed by: Sander Metzger MD on 04/27/2025 10:00:20
--- NOTE | ~2025-04-26 | CT_ITS ---
CLINICAL HISTORY: fall, hx thrombocytopenia CT head without contrast Comparison: None provided Findings: No intracranial mass, midline shift, hydrocephalus, or acute hemorrhage. Moderate chronic ischemic white matter disease with volume loss. No acute process in sinuses or mastoids. No acute bony abnormality. Impression: No acute intracranial process This document has been electronically signed by: Carlos Esquivel MD on 04/26/2025 23:22:46
--- NOTE | ~2025-04-26 | CT_ITS ---
CLINICAL HISTORY: ? PE CT angiography chest with contrast. 3D Postprocessing. Comparison: CT - CT ANGIO CHEST PE PROTOCOL - 04/27/25 12:34 EDT Findings: The heart size is normal. RV/LV ratio is normal. Calcification of the coronary vasculature. The thoracic aorta is normal caliber. No pulmonary artery filling defects. Mild fusiform dilatation of the ascending thoracic aorta measuring 41 mm. Thyroid is within normal limits. Moderate apical predominant emphysema. Mild bibasilar atelectasis versus scarring. Mild diffuse ground-glass pulmonary opacity. Visualized portions of the upper abdomen demonstrate cholelithiasis well as mild left hydronephrosis. No acute fractures. IMPRESSION: 1. No pulmonary embolus. 2. Coronary artery disease. 3. Mild atypical pneumonia. 4. Mild aneurysmal dilatation of the ascending thoracic aorta. 5. Mild left hydronephrosis. 6. Cholelithiasis. This document has been electronically signed by: Da Pino MD on 04/27/2025 13:21:04
--- NOTE | ~2025-04-26 | XR_ITS ---
CLINICAL HISTORY: fall, pain Left elbow three views Comparison: 12/15/2022 Findings: No acute fracture or dislocation noted. No significant joint effusion identified. Prior olecranon fracture fixation hardware. No evidence for loosening. Impression: No acute bony abnormality This document has been electronically signed by: Carlos Esquivel MD on 04/26/2025 23:05:38
--- NOTE | ~2025-04-26 | CT_ITS ---
CLINICAL HISTORY: fall, mild pain posterior neck CT cervical spine without contrast Comparison: None provided Findings: Motion artifact considerably limits assessment. Mid cervical spine not well visualized. No definite acute fracture is identified. Fracture could go undetected on this study. Consider repeat if there is persistent concern. Severe degenerative change noted. Multilevel anterolisthesis, likely chronic. Impression: Motion artifact limits assessment Consider repeat if there is persistent concern No definite acute abnormality This document has been electronically signed by: Carlos Esquivel MD on 04/26/2025 23:21:57
[2025-04-26 20:39] VITALS: BP 140/58; BP 142/64; PULSE 93; PULSE 99; RESP 14; TEMP 36.4; O2SAT 91; O2SAT 95; BMI 30.8
--- NOTE | 2025-04-26 20:56 | PC.NURSE ---
Addendum entered by Tash Qureshi RN 04/27/25 03:15: Straight cath pt, EDT and computer programming professor there for assistance, pt tolerated well. Total urine voided 400 ml, specimen collected and sent to lab. Catheter removed and intact with no issues noted. Addendum entered by Tash Qureshi RN 04/27/25 00:41: Pt aware urine sample needed, placed pt on bedpan per request and was not able to void. Bladder scan showed 309ml. Pt attempting bedpan again at this time Original Note: Pt biba from home with complaint of generalized weakness and dizziness after she fell off her couch yesterday evening. Pt is a&o x4 speaking in full clear sentences. Pt noted to be in and out of sleep, easily arousable when spoken to, answering questions appropriately. Pt denies any cp, sob, vision changes. Pt changed over into hospital attire, placed on monitor, ekg done, and labs drawn. During change noticed large right bruising to upper right arm , pt states its from the fall. Pt also noted to desat to 87-88% on RA placed pt on 2L with improvement to 95-96%.
--- NOTE | 2025-04-26 21:14 | ED.WEAKNESS ---
HPI - Weakness General Chief complaint: Weakness Stated complaint: fall off couch loc head stike hx blood transfusion Time Seen by Provider: 04/26/25 20:58 Source: patient and EMS Mode of arrival: EMS Limitations: no limitations History of Present Illness ED Provider: Dr. Anne Aldridge HPI Narrative: Patient comes to the emergency room complaining of a fall and weakness. According to the patient, yesterday she went to take a nap in her couch, patient believes that she may have rolled over and fell on the ground. Patient was able to get up. However, since yesterday, she has been complaining of worsening right knee pain and left elbow pain. Patient states that she does not think that she hit her head or lost consciousness. Patient is not on blood thinners, however patient has history of thrombocytopenia. Related Data Home Medications ?Medication ?Instructions ?Recorded ?Confirmed alprazolam 0.5 mg tablet 1 tab PO TID PRN Anxiety 12/07/20 03/17/25 cholecalciferol (vitamin D3) 25 1,000 unit PO DAILY 02/07/21 03/17/25 mcg (1,000 unit) capsule (Vitamin D3) albuterol sulfate 2.5 mg/3 mL 2.5 mg inhalation Q6H PRN Wheezing 01/27/22 03/17/25 (0.083 %) solution for nebulization cyanocobalamin (vitamin B-12) 1,000 mcg PO DAILY 01/27/22 03/17/25 1,000 mcg tablet fluticasone propionate 50 1 spray intranasal DAILY PRN 01/27/22 03/17/25 mcg/actuation nasal Congestion spray,suspension vitamin A 2,400 mcg capsule 2,400 mcg PO DAILY 01/27/22 03/17/25 metoprolol succinate 25 mg 25 mg PO DAILY 05/17/22 03/17/25 tablet,extended release 24 hr (Toprol XL) biotin 10,000 mcg chewable tablet 10,000 mcg PO DAILY 12/07/22 03/17/25 (Hair, Skin and Nails (biotin)) ondansetron HCl 4 mg tablet 1 tab PO Q8H PRN Nausea And 12/07/22 03/17/25 Vomiting albuterol sulfate 90 mcg/actuation 2 puff inhalation Q4H PRN Wheezing 09/25/24 06/30/25 aerosol inhaler fluticasone propionate 110 1 puff inhalation BID 06/12/24 03/17/25 mcg/actuation HFA aerosol inhaler hydrocodone 10 mg-acetaminophen 1 tab PO QID PRN Pain, Moderate 06/12/24 03/17/25 325 mg tablet Previous Rx's ?Medication ?Instructions ?Recorded pantoprazole 40 mg granules 40 mg PO DAILY #90 ea 06/18/24 delayed-release for susp in packet (Protonix) Allergies Allergy/AdvReac Type Severity Reaction Status Date / Time amoxicillin Allergy Unknown Hives Verified 04/26/25 20:42 Penicillins (PENICILLINS) Allergy Unknown Hives Verified 04/26/25 20:42 Sulfa (Sulfonamide Allergy Unknown Hives Verified 04/26/25 20:42 Antibiotics) (SULFA (SULFONAMIDE ANTIBIOTICS)) Review of Systems Review of Systems: Constitutional : No Weight loss, No Fever, No Chills, No Night Sweats, No Fatigue, No Malaise, complaining of weakness ENT/Mouth : No Hearing loss, No Ear Pain, No Nasal Congestion, No Sinus Pain, No Hoarseness, No sore throat, No Rhinorrhea, No Swallowing Difficulty Eyes: No Eye Pain, No Swelling, No Redness, No Foreign Body, No Discharge, No Vision Changes Cardiovascular : No Chest Pain, No SOB, No Dyspnea on Exertion, No Orthopnea, No Edema, No Palpitations Respiratory : No Cough, No Sputum, No Wheezing, No Smoke Exposure, No Dyspnea Gastrointestinal : No Nausea, No Vomiting, No Diarrhea, No Constipation, No abdominal Pain, No Hematochezia, No Melena Genitourinary : no irregular bleeding, No Dysuria, No Urinary Frequency, No Hematuria, No Urinary Incontinence, No Urgency, No Flank Pain, No Urinary Flow Changes, No Hesitancy Musculoskeletal : No joint pain, No Myalgias, No Joint Swelling Skin : Complaining of multiple bruising due to history of thrombocytopenia Neuro : No Weakness, No Numbness, No Paresthesias, No Loss of Consciousness, No Dizziness, No Headache Psych : No Anxiety/Panic, No Depression, No SI/HI/AH/VH, No Social Issues, Heme/Lymph: No Bruising, No Bleeding,No Lymphadenopathy Endocrine : No Polyuria, No Polydipsia, No Temperature Intolerance PMFSH Past Medical History Medical History Ascending aorta dilatation Atherosclerotic cardiovascular disease Non-rheumatic mitral regurgitation Non-rheumatic aortic regurgitation Non-rheumatic aortic stenosis Cardiomyopathy COPD exacerbation Heart failure with reduced ejection fraction Acute on chronic systolic (congestive) heart failure COPD (chronic obstructive pulmonary disease) Thrombocytopenia Osteoarthritis GERD (gastroesophageal reflux disease) Anxiety Asthma Surgical History Hx of colonoscopy Hx of endoscopy Hx of oophorectomy Hx of hysterectomy Hx of total knee replacement Family History Family History Sister Lung cancer Lupus Sister Lung cancer Maternal Aunt Lupus Social History Social History Household Members: None Household Members Other:: lives alone [facility]: [facility] Are you a primary home health care case manager to a significant other at home: No Do you presently have visiting nurse or other home services: No Unable to assess alcohol history related to: Unknown Alcohol intake: current Alcohol intake frequency: holidays/special occasions only Comment: patient refusing alarms Patient Tobacco Use Status: Former Tobacco user Smoked in Last 30 Days: No Second Hand Smoke Exposure: No Use of substances other than those prescribed or required for medical reasons: No Substance Use Type: Unknown Advance Directives: Yes Advance Directives on File: Yes Advance Directives Date on File: 03/20/23 service: No Current occupational status: employed Physical Exam Exam: Exam: Appearance: Alert. Oriented X3. No acute distress. Patient is very somnolent easily arousable Eyes: Pinpoint pupils bilaterally Pupils equal, round and reactive to light. ENT: Pharynx normal. Neck: Normal inspection. Neck supple. No lymph nodes noted. No crepitus CVS: Normal heart rate and rhythm. Pulses normal. Normal S1 and S2 Respiratory: No respiratory distress. Breath sounds normal. No Wheezing. No rales Abdomen: Soft and nontender. No rigidity. No distention. Skin: Multiple ecchymosis in extremities, different stages Extremities: No lower extremity edema. No Lacerations. No Rash Neuro: Oriented X 3. No motor deficit. No sensory deficit. Moving all extremities. No slurred speech. CN 2 through 12 grossly intact Psych: calm, cooperative, normal affect Vital Signs: Vital Signs: Last Vital Signs Temp 97.5 F 04/26/25 20:39 Pulse 104 H 04/27/25 12:12 Resp 19 04/27/25 12:12 BP 127/58 L 04/27/25 12:12 Pulse Ox 93 04/27/25 12:20 O2 Del Method Nasal Cannula 04/27/25 12:20 O2 Flow Rate 3 04/27/25 12:20 BMI result Body Mass Index 30.8 Course Course Course Narrative: Patient reports a fall from yesterday, worsening pain in the left available and right knee. Denies hitting her head or losing consciousness. All of patient's labs and imaging pending Reevaluation(s) Reevaluation #1: Patient was supposed to be discharged by Dr. Aldridge however the patient this sat as low as 86% after room air. Patient is not on oxygen at baseline she was placed on oxygen a chest CT was obtain consistent with atypical pneumonitis patient will be admitted because of hypoxia and pneumonia we will do blood culture lactic acid administer and antibiotic Time: 13:46 Medications Administered Discontinued Medications Generic Name Dose Route Start Last Admin Trade Name Hernandoq PRN Reason Stop Dose Admin Alprazolam 1 mg 04/27/25 11:43 04/27/25 11:47 Alprazolam 0.5 Mg Tablet PO 04/27/25 11:44 1 mg ONCE ONE Administration Albuterol Sulfate 2.5 mg/ 0 mg 04/27/25 11:00 04/27/25 11:08 Albuterol/Ipratropium 3 ml INHALE 04/27/25 11:01 5 dose ONCE ONE Administration Iohexol 100 ml 04/27/25 12:50 04/27/25 12:51 Iohexol 350 Mg/Ml 100 Ml Infus..Btl IV 04/27/25 12:51 65 ml ONCE ONE Administration Ketorolac Tromethamine 15 mg 04/27/25 11:42 04/27/25 11:47 Ketorolac Tromethamine 15 Mg/Ml Vial IVPUSH 04/27/25 11:43 15 mg ONCE ONE Administration Medical Decision Making Medical Decision Making [facility] Narrative: My interpretation of labs: Patient's labs are at baseline, including a hemoglobin of 10.1 and platelet count of 72, chemistry within normal limits, fairly normal LFTs, slightly bumped AST, urinalysis negative, urine toxicology positive for opiates/oxycodone -MAS Pat was checked, patient does get prescribed p.o. morphine sulfate and Percocets CT scan of the head and cervical spine did not show any acute abnormality. No suspicion for cervical spine injury Overall, seems that patient accidentally overdose on her medications. Patient's vitals stable Patient wakes up easily but falls right back asleep. Patient has been sleeping the whole time. Patient needs a lower dose of pain medication. Physician observation started at 02:00 Differential Diagnosis Differential Diagnoses: The differential diagnosis associated with the presentation includes (Intracranial bleed, UTI, accidental prescribed medication overdose, medication side-effect) Admission/Observation Consideration of admission/observation: Escalation of care including admission/observation considered (Patient is under physician observation waiting to become more awake, accidentally overdosed on her prescribed narcotics) Lab Data MDM Lab Attestation statement: I reviewed the patient's lab results. 04/26/25 21:21 04/26/25 21:21 Labs: Lab Results 04/26/25 04/27/25 04/27/25 Range/Units 21:21 01:53 11:27 WBC 8.8 (4.8-10.8) X10*3/uL RBC 3.29 L (4.20-5.50) X10*6/uL Hgb 10.1 L (12.0-16.0) g/dl Hct 32.2 L (37.0-47.0) % MCV 97.9 (80.0-98.0) fL MCH 30.7 (27.0-33.0) pg MCHC 31.4 (31.0-35.0) g/dl RDW 14.4 (11.0-16.0) % Plt Count 72 L D (160-400) X10*3/uL MPV Not Reportable Immature Gran % (Auto) 0.2 (0.0-0.4) % Neut % (Auto) 78.5 H (45-73) % Lymph % (Auto) 9.6 L (20-40) % [place] % (Auto) 9.4 (2-11) % Eos % (Auto) 1.6 (0-4) % Baso % (Auto) 0.7 (0-2) % Lymph # (Auto) 0.9 L (1.2-4.9) X10*3/uL [place] # (Auto) 0.8 (0.1-1.2) X10*3/uL Eos # (Auto) 0.1 (0.0-0.4) X10*3/uL Baso # (Auto) 0.1 (0.0-0.2) X10*3/uL Abs Immat Gran (auto) 0.02 (0.00-0.03) X10*3/uL Absolute Neuts (auto) 6.9 (2.0-8.3) x10*3/uL Absolute Nucleated RBC 0.000 (0.0-0.012) X10*3/uL Nucleated RBC % (auto) 0.0 (0.0-0.2) /100WBC Smear Tech's Comments VERIFIED VBG pH 7.32 (7.32-7.43) VBG pCO2 69 mmHg VBG pO2 36 mmHg VBG HCO3 36 H (22-26) mmol/L VBG O2 Saturation 46.0 % VBG Base Excess 7.8 mmol/L Sodium 146 H (135-145) mmol/L Potassium 3.6 (3.3-5.1) mmol/L Chloride 108 (96-108) mmol/L Carbon Dioxide 28 (22-29) mmol/L Anion Gap 14 (12-20) BUN 17 H (9-16) mg/dL Creatinine 0.77 (0.5-1.4) mg/dL Estim Creat Clear Calc 57.9 Estimated GFR > 60 Random Glucose 112 (60-115) mg/dL Calcium 8.8 (8.4-10.2) mg/dL Total Bilirubin 0.5 (0.0-1.0) mg/dL AST 51 H (5-31) U/L ALT 27 (0-31) U/L Alkaline Phosphatase 57 (39-117) U/L Troponin I High Sens 14.2 D (<3.5-17.0) ng/L Total Protein 6.4 L (6.5-8.0) g/dL Albumin 4.4 (3.5-5.0) g/dL Urine Color Yellow Urine Appearance Clear Urine pH 6.5 (5.0-9.0) Ur Specific [place] 1.025 (1.005-1.025) Urine Protein Trace (Neg-Trace) mg/dL Urine Glucose (UA) Negative (Negative) mg/dL Urine Ketones Negative (Negative) mg/dL Urine Blood Small (1+) H (Negative) Urine Nitrite Negative (Negative) Ur Leukocyte Esterase Negative (Negative) Urine RBC 11-20 H (0-2) /HPF Urine WBC 0-5 (0-5) /HPF Ur Squamous Epith Cells 0-2 (0-2) /HPF Urine Bacteria None Seen (None Seen) Hyaline Casts 0-2 (0-2) /LPF Urine Opiates Screen POSITIVE H (Not Detect) Ur Buprenorphine Scrn Not Detected (Not Detect) ng/mL Ur Oxycodone Screen Positive H (Not Detect) ng/mL Urine Methadone Screen Not Detected (Not Detect) ng/mL Urine Fentanyl Screen Not Detected (Not Detect) Ur Barbiturates Screen Not Detected (Not Detect) Ur Phencyclidine Scrn Not Detected (Not Detect) Ur Amphetamines Screen Not Detected (Not Detect) U Benzodiazepines Scrn Not Detected (Not Detect) Urine Cocaine Screen Not Detected (Not Detect) U Marijuana (THC) Screen Not Detected (Not Detect) Ethyl Alcohol < 10 mg/dL Critical Care Time Critical Care Time Critical Care Time: Yes Total Critical Care Time: 60 Attestation: I have personally provided critical care time. Time includes review of lab data, radiology results, discussion with consultants, and monitoring for potential decompensation. Intervention performed as documented. Discharge Plan Discharge Patient Disposition: Admitted As Inpatient Additional Instructions: Please discontinue taking morphine. You accidentally overdosed with your prescription medication. Please follow-up with your primary care physician tomorrow. If you have any worsening or new symptoms, please return to the emergency room or call 911 Print Language: [place]
[2025-04-26 21:26] LABS: NRBC Abs Auto 0.000 X10*3/uL (0.0-0.012); NRBC Pct Auto 0.0 /100WBC (0.0-0.2); SCAN SMEAR FLAG 1
[2025-04-26 21:28] LABS: Hematocrit 32.2 % (37.0-47.0); Hemoglobin 10.1 g/dl (12.0-16.0); Imm Gran Abs Auto 0.02 X10*3/uL (0.00-0.03); Imm Gran Pct Auto 0.2 % (0.0-0.4); Lymphocytes Absolute Auto 0.9 X10*3/uL (1.2-4.9); MANUAL DIFF FLAG SCAN; Mean Corpuscular HGB Conc 31.4 g/dl (31.0-35.0); Mean Corpuscular Hemoglobin 30.7 pg (27.0-33.0); Mean Corpuscular Volume 97.9 fL (80.0-98.0); PLT CLUMP 1; Red Blood Count 3.29 X10*6/uL (4.20-5.50)
[2025-04-26 21:41] LABS: PLT ABN DIST 1; White Blood Count 8.8 X10*3/uL (4.8-10.8)
[2025-04-26 21:42] LABS: Platelet Count 72 X10*3/uL (160-400)
[2025-04-26 21:43] LABS: Alanine Aminotransferase 27 U/L (0-31); Albumin Level 4.4 g/dL (3.5-5.0); Alkaline Phosphatase 57 U/L (39-117); Anion Gap 14 (12-20); Aspartate Amino Transferase 51 U/L (5-31); Blood Urea Nitrogen 17 mg/dL (9-16); Calcium 8.8 mg/dL (8.4-10.2); Carbon Dioxide 28 mmol/L (22-29); Chloride 108 mmol/L (96-108); Creatinine Clr Calc Pharmacy 57.9; Estimated Glomerular Filt Rate > 60; Potassium 3.6 mmol/L (3.3-5.1); Sodium 146 mmol/L (135-145); Total Protein 6.4 g/dL (6.5-8.0)
[2025-04-26 21:51] LABS: Troponin-I High Sensitivity 14.2 ng/L (<3.5-17.0)
[2025-04-26 22:51] VITALS: BP 146/60; PULSE 99; RESP 16; O2SAT 93
[2025-04-27] VITALS (13 sets, daily range): BP systolic 105–148; BP diastolic 41–88; PULSE 77–104; RESP 16–21; TEMP 36.8; O2SAT 86–98
[2025-04-27 02:04] LABS: Appearance Urine Clear; Glucose Urine UA Negative (Negative); PH 6.5 (5.0-9.0); Specific Gravity - Urine 1.025 (1.005-1.025); UMIC TRIGGER UACC YES
[2025-04-27 02:10] LABS: Cannabinoid Screen Urine Not Detected (Not Detect)
--- NOTE | 2025-04-27 08:07 | PC.NURSE ---
attempted to d/c the pt as directed by the provider, pt is upset about her d/c diagnosis and this rn updated the vs and the pt's oxygen level on room air is staying at 89%, pt denies copd that report that at times her oxygen will run on the lower side around 93%, md aware will be holding the d/c for now and plan to order a chest x-ray, ls diminished
--- NOTE | 2025-04-27 08:30 | PC.NURSE ---
pt is also reproting that she just took her prescribed morphine 15mg for her chronic pain, aware
--- NOTE | 2025-04-27 09:04 | PC.NURSE ---
pt's morphine pills were taken away but pt also has other medications mixed in the bottle, pt reports xanax and over the counter stress relief medications-according to pill finder the over the counter appears to be a hydroxyzine
--- NOTE | 2025-04-27 10:27 | PC.NURSE ---
pt's walking saturation is 86%
[2025-04-27] MEDS: Albuterol Sulfate 2.5 MG, Albuterol/Iprat 2.5/0.5MG 3 ML 3 ML INHALE (11:08)
[2025-04-27 11:31] LABS: VBG HCO3 36 mmol/L (22-26); VBG O2 % Saturation 46.0 %
[2025-04-27 11:34] LABS: Venous Blood Gas Refer to POC result
[2025-04-27] MEDS: iohexoL 350 MG/ML 100 ML INFUS..BTL IV (12:51)
--- NOTE | 2025-04-27 14:20 | PM.IMHP ---
History of Present Illness Date of Service: 04/27/25 Chief Complaint: Shortness of breath Patient comes to the emergency room complaining of a fall and weakness. According to the patient, yesterday she went to take a nap in her couch, patient believes that she may have rolled over and fell on the ground. Patient was able to get up. However, since yesterday, she has been complaining of worsening right knee pain and left elbow pain. Patient states that she does not think that she hit her head or lost consciousness. Patient is not on blood thinners, however patient has history of thrombocytopenia. Prior to discharge it was noted that her sats were 86% on room air and she is not O2 dependent at home. CTA of the chest was done which demonstrated an atypical pneumonia. Review of Systems Review of Systems: Denies chest pain Denies shortness of breath Denies nausea vomiting diarrhea Denies fever chills [facility] Medical History Ascending aorta dilatation Atherosclerotic cardiovascular disease Non-rheumatic mitral regurgitation Non-rheumatic aortic regurgitation Non-rheumatic aortic stenosis Cardiomyopathy COPD exacerbation Heart failure with reduced ejection fraction Acute on chronic systolic (congestive) heart failure COPD (chronic obstructive pulmonary disease) Thrombocytopenia Osteoarthritis GERD (gastroesophageal reflux disease) Anxiety Asthma Family History Sister Lung cancer Lupus Sister Lung cancer Maternal Aunt Lupus Surgical History Hx of colonoscopy Hx of endoscopy Hx of oophorectomy Hx of hysterectomy Hx of total knee replacement Social History Household Members: None Household Members Other:: lives alone Housing: Condominium Are you a primary lawn care professional to a significant other at home: No Do you presently have visiting nurse or other home services: No Unable to assess alcohol history related to: Unknown Alcohol intake: current Alcohol intake frequency: holidays/special occasions only Comment: patient refusing alarms Patient Tobacco Use Status: Former Tobacco user Smoked in Last 30 Days: No Second Hand Smoke Exposure: No Use of substances other than those prescribed or required for medical reasons: No Substance Use Type: Unknown Advance Directives: Yes Advance Directives on File: Yes Advance Directives Date on File: 03/20/23 service: No Current occupational status: employed Meds Allergies Allergy/AdvReac Type Severity Reaction Status Date / Time amoxicillin Allergy Unknown Hives Verified 04/26/25 20:42 Penicillins (PENICILLINS) Allergy Unknown Hives Verified 04/26/25 20:42 Sulfa (Sulfonamide Allergy Unknown Hives Verified 04/26/25 20:42 Antibiotics) (SULFA (SULFONAMIDE ANTIBIOTICS)) Active Medications: Current Medications Acetaminophen (Acetaminophen 325 Mg Tablet) 650 mg PO Q6H PRN PRN Reason: Pain, Mild 1-3,fever,headache Calcium Carbonate (Calcium Carbonate 750 Mg Tab.Chew) 750 mg PO Q4H PRN PRN Reason: Heartburn Doxycycline Hyclate 100 mg/ (Sodium Chloride) 250 mls @ 166.67 mls/hr IV ONCE ONE Stop: 04/27/25 14:55 Magnesium Hydroxide (Milk Of Magnesia 30 Ml Oral.Susp) 30 ml PO DAILY PRN PRN Reason: Constipation Melatonin (Melatonin 3 Mg Tablet) 6 mg PO BEDTIME PRN PRN Reason: Insomnia Ondansetron HCl (Ondansetron Hcl 4 Mg/2 Ml Vial) 4 mg IVPUSH Q8H PRN PRN Reason: Nausea and Vomiting Sodium Chloride (0.9 % Sodium Chloride Flush 3 Ml Syringe) [facility] ?Medication ?Instructions ?Recorded ?Confirmed ?Last Taken ?Type alprazolam 0.5 mg tablet 1 tab PO TID PRN Anxiety 12/07/20 03/17/25 10/12/22 History cholecalciferol (vitamin D3) 25 1,000 unit PO DAILY 02/07/21 03/17/25 10/12/22 History mcg (1,000 unit) capsule (Vitamin D3) albuterol sulfate 2.5 mg/3 mL 2.5 mg inhalation Q6H PRN Wheezing 01/27/22 03/17/25 10/12/22 History (0.083 %) solution for nebulization cyanocobalamin (vitamin B-12) 1,000 mcg PO DAILY 01/27/22 03/17/25 10/12/22 History 1,000 mcg tablet fluticasone propionate 50 1 spray intranasal DAILY PRN 01/27/22 03/17/25 10/12/22 History mcg/actuation nasal Congestion spray,suspension vitamin A 2,400 mcg capsule 2,400 mcg PO DAILY 01/27/22 03/17/25 10/12/22 History metoprolol succinate 25 mg 25 mg PO DAILY 05/17/22 03/17/25 10/12/22 History tablet,extended release 24 hr (Toprol XL) biotin 10,000 mcg chewable tablet 10,000 mcg PO DAILY 12/07/22 03/17/25 Unknown History (Hair, Skin and Nails (biotin)) ondansetron HCl 4 mg tablet 1 tab PO Q8H PRN Nausea And 12/07/22 03/17/25 Unknown History Vomiting albuterol sulfate 90 mcg/actuation 2 puff inhalation Q4H PRN Wheezing 06/12/24 03/17/25 Unknown History aerosol inhaler fluticasone propionate 110 1 puff inhalation BID 06/12/24 03/17/25 06/12/24 History mcg/actuation HFA aerosol inhaler hydrocodone 10 mg-acetaminophen 1 tab PO QID PRN Pain, Moderate 06/12/24 03/17/25 Unknown History 325 mg tablet duloxetine 30 mg capsule,delayed 30 mg PO BID 04/27/25 Unknown History release morphine 15 mg tablet,extended 15 mg PO BID 04/27/25 Unknown History release oxycodone-acetaminophen 10 mg-325 1 tab PO QID PRN Pain 04/27/25 Unknown History mg tablet Physical Exam Vital Signs and Narrative: Vital Signs: Last Vital Signs Temp 97.5 F 04/26/25 20:39 Pulse 104 H 04/27/25 12:12 Resp 19 04/27/25 12:12 BP 127/58 L 04/27/25 12:12 Pulse Ox 93 04/27/25 12:20 O2 Del Method Nasal Cannula 04/27/25 12:20 O2 Flow Rate 3 04/27/25 12:20 BMI result Body Mass Index 30.8 Const: Other: Awake alert no acute distress Resp: Other: Diminished at right base with scant crackles otherwise clear Cardio: Other: Soft nontender nondistended normoactive bowel sounds GI: Other: Soft nontender nondistended normoactive bowel sounds Extrem: Other: No edema bilaterally Results Labs 04/26/25 21:21 04/26/25 21:21 Labs: Laboratory Results - last 24 hr 04/26/25 04/27/25 04/27/25 21:21 01:53 11:27 MCV 97.9 MCH 30.7 MCHC 31.4 RDW 14.4 Plt Count 72 L D MPV Not Reportable Immature Gran % (Auto) 0.2 Neut % (Auto) 78.5 H Lymph % (Auto) 9.6 L [place] % (Auto) 9.4 Eos % (Auto) 1.6 Baso % (Auto) 0.7 Lymph # (Auto) 0.9 L [place] # (Auto) 0.8 Eos # (Auto) 0.1 Baso # (Auto) 0.1 Abs Immat Gran (auto) 0.02 Absolute Neuts (auto) 6.9 Absolute Nucleated RBC 0.000 Nucleated RBC % (auto) 0.0 Smear Tech's Comments VERIFIED VBG pH 7.32 VBG pCO2 69 VBG pO2 36 VBG HCO3 36 H VBG O2 Saturation 46.0 VBG Base Excess 7.8 Anion Gap 14 Estim Creat Clear Calc 57.9 Estimated GFR > 60 Random Glucose 112 Calcium 8.8 Total Bilirubin 0.5 AST 51 H ALT 27 Alkaline Phosphatase 57 Total Protein 6.4 L Albumin 4.4 Urine Color Yellow Urine Appearance Clear Urine pH 6.5 Ur Specific [place] 1.025 Urine Protein Trace Urine Glucose (UA) Negative Urine Ketones Negative Urine Blood Small (1+) H Urine Nitrite Negative Ur Leukocyte Esterase Negative Urine RBC 11-20 H Urine WBC 0-5 Ur Squamous Epith Cells 0-2 Urine Bacteria None Seen Hyaline Casts 0-2 Urine Opiates Screen POSITIVE H Ur Buprenorphine Scrn Not Detected Ur Oxycodone Screen Positive H Urine Methadone Screen Not Detected Urine Fentanyl Screen Not Detected Ur Barbiturates Screen Not Detected Ur Phencyclidine Scrn Not Detected Ur Amphetamines Screen Not Detected U Benzodiazepines Scrn Not Detected Urine Cocaine Screen Not Detected U Marijuana (THC) Screen Not Detected Ethyl Alcohol < 10 Assessment and Plan (1) Pneumonia: Qualifiers: Laterality: unspecified laterality Lung location: unspecified part of lung Pneumonia type: due to unspecified organism Qualified Code(s): J18.9 - Pneumonia, unspecified organism Status: Acute (2) Chronic ITP (idiopathic thrombocytopenia): Status: Acute (3) Ischemic cardiomyopathy: Status: Acute Plan 79-year-old female with a past medical history significant for chronic ITP, ischemic cardiomyopathy, GERD, chronic HF are EF, COPD asthma syndrome presents to the ER originally after a fall. Workup was unremarkable and she was scheduled for discharge. Upon discharge she was found to have sats of 84%. CTA of the chest was done which demonstrated mild atypical pneumonia 1. Atypical pneumonia -ceftriaxone/azithromycin (1) -titrate O2 to maintain sats greater than equal to 92% -DuoNebs q.4 hours while awake as needed 2. Chronic ITP -no active bleeding -follow clinically 3. Ischemic cardiomyopathy/HFrEF -stable and well compensated -continue outpatient therapies Full code Pneumatics Patient will require at least 2 midnights going forward for IV antibiotics to treat atypical pneumonia. This can not be achieved a lesser acute setting Quality Stroke Does the patient have a stroke diagnosis?: No VTE Prior VTE?: No VTE Risk Level:: Medical - moderate - high VTE Device Contraindication: Treatment Not Indicated VTE Drug Contraindication: N/A - Med Ordered
--- NOTE | 2025-04-27 14:32 | PHA.MEDREC ---
Addendum entered by Jamel Venegas PharmD 04/27/25 14:44: reviewed Original Note: Pharmacy Consult ? Medication Reconciliation Pharmacy has completed the medication reconciliation. Spoke to patient to confirm med list. Patient states she is no longer taking Duloxetine 30 mg, Fluticasone prop and Pantoprazole 40 mg. Patient last had her medications 2 days.
--- NOTE | 2025-04-27 14:42 | PC.NURSE ---
abx delayed d/t hard stick, difficulty obtaining cultures
--- NOTE | 2025-04-27 14:47 | MHC.EDTECH ---
Pt is a hard stick, thats why the 2nd culture was taking longer to draw.
--- NOTE | 2025-04-27 15:17 | PC.NURSE ---
patients meds are being sent to pharmacy
[2025-04-27] MEDS: oxyCODONE HCl Immed Release 5 MG TABLET PO (15:28)
--- NOTE | 2025-04-27 21:52 | PC.NURSE ---
Patient expressing how upset she was that security took her knife which was given to her by a friend who , also she is upset they took her medications from her purse. Patient was told its a safety issue in the hospital to ensure patient does not get double dosed from home medication. Patient states she is not an addict. Patients medication was counted and given to pharmacy. Patient stating she uses old bottles to carry daily meds throughout the day. Told patient she had percocet in an iron bottle, patient reports she doesn't even like percs. Reiterated taking home from patients is for nurse and patient safety, that upon discharge all medication will be returned to her, and we are more than happy to provide daily medications prescribed by hospitalist when she usually takes it at home.
--- NOTE | 2025-04-27 22:26 | PC.NURSE ---
Patient up to commode with wound care technician, tolerated movement well. Patient assisted back to stretcher with call phillips within reach.
[2025-04-28] VITALS (7 sets, daily range): BP systolic 95–138; BP diastolic 53–70; PULSE 74–103; RESP 16–18; TEMP 36.7–37.4; O2SAT 91–97; BMI 31.6
--- NOTE | 2025-04-28 00:22 | PC.NURSE ---
Skin tear noted by underwriting technician, who came to tell the nurse. Observed a skin tear on left arm that is open but crusted over without active bleeding. Patient stated phlebotomy had came to do a blood draw and the patient did not want the tape to hurt so she ripped the tape off herself. Pt stated a piece of skin came with the tape due to her pulling it off herself. Notified MD, asked for bacitracin to over tear with.
[2025-04-28] MEDS: Morphine Sulfate Immed Release 15 MG TABLET PO (03:03)
[2025-04-28 05:13] LABS: Hematocrit 30.9 % (37.0-47.0); Hemoglobin 10.0 g/dl (12.0-16.0); Imm Gran Abs Auto 0.02 X10*3/uL (0.00-0.03); Imm Gran Pct Auto 0.3 % (0.0-0.4); Lymphocytes Absolute Auto 0.8 X10*3/uL (1.2-4.9); MANUAL DIFF FLAG SCAN; Mean Corpuscular HGB Conc 32.4 g/dl (31.0-35.0); Mean Corpuscular Hemoglobin 31.9 pg (27.0-33.0); Mean Corpuscular Volume 98.7 fL (80.0-98.0); NRBC Abs Auto 0.000 X10*3/uL (0.0-0.012); NRBC Pct Auto 0.0 /100WBC (0.0-0.2); PLT CLUMP 1; Red Blood Count 3.13 X10*6/uL (4.20-5.50); SCAN SMEAR FLAG 1
[2025-04-28 05:20] LABS: Alanine Aminotransferase 21 U/L (0-31); Albumin Level 3.7 g/dL (3.5-5.0); Alkaline Phosphatase 48 U/L (39-117); Anion Gap 10 (12-20); Aspartate Amino Transferase 34 U/L (5-31); Blood Urea Nitrogen 21 mg/dL (9-16); Calcium 8.2 mg/dL (8.4-10.2); Carbon Dioxide 29 mmol/L (22-29); Chloride 111 mmol/L (96-108); Creatinine Clr Calc Pharmacy 49.6; Estimated Glomerular Filt Rate > 60; Potassium 3.8 mmol/L (3.3-5.1); Sodium 146 mmol/L (135-145); Total Protein 5.3 g/dL (6.5-8.0)
[2025-04-28 05:29] LABS: Platelet Count 62 X10*3/uL (160-400); White Blood Count 6.9 X10*3/uL (4.8-10.8)
--- NOTE | 2025-04-28 06:29 | PC.NURSE ---
Reached out to inpatient provider to see if patient should be getting antibiotics throughout stay. Provider put in medication.
--- NOTE | 2025-04-28 09:00 | PC.NURSE ---
This RN was alerted of soft BP by morning tech during vitals, pt is A/Ox4, denies dizziness, pt only offering complaints of pain all over, also stating I need my metoprolol that will help my BP this RN did provide education that her BP is low not high so at this time that would not be advised. Pt has a room assignment upstairs, pt made aware, monitors removed, pt to be transported up shortly at this time. Pt does seem very anxious at this time, having multiple different requests for medications, again pt redirected to what medications she has ordered here vs what she may have been taking at home. Pt has been overtaking medications at home, emotional support provided.
[2025-04-28] MEDS: oxyCODONE HCl Immed Release 5 MG TABLET PO ×3 (09:44→19:36)
--- NOTE | 2025-04-28 11:25 | MHC.CM.PN ---
pt lives with a roomate had no previous services has own ride home dc plan home n/s
--- NOTE | 2025-04-28 15:12 | HO.PM.IMPN ---
Subjective Subjective Date of Service: 04/28/25 Review of Systems Follow up Fall, pna feeling better no pain, nv,d Physical Exam Exam: Exam: Appearing in no acute distress lung sounds are clear to auscultation heart regular rate rhythm, clear S1, S2 positive bowel sounds, abdomen is soft, nontender neuro patient is alert x3, no focal deficits Vital Signs: Vital Signs: Last Vital Signs Temp 98.1 F 04/28/25 09:29 Pulse 89 04/28/25 09:29 Resp 18 04/28/25 09:29 BP 133/64 04/28/25 09:29 Pulse Ox 95 04/28/25 09:29 O2 Del Method Nasal Cannula 04/28/25 09:29 O2 Flow Rate 2 04/28/25 09:29 BMI result Body Mass Index 31.6 Objective Data Active Medications Acetaminophen (Acetaminophen 325 Mg Tablet) 650 mg PO Q6H PRN PRN Reason: Pain, Mild 1-3,fever,headache Calcium Carbonate (Calcium Carbonate 750 Mg Tab.Chew) 750 mg PO Q4H PRN PRN Reason: Heartburn Ceftriaxone Sodium (Ceftriaxone Sodium 1 Gm Vial) 1 gm IVPUSH Q24H [facility] Last Admin: 04/28/25 14:25 Dose: 1 gm Documented By: EILEEN Azithromycin 500 mg/ Sodium (Chloride) 250 mls @ 125 mls/hr IV Q24H [facility] Last Infusion: 04/28/25 09:00 Dose: Infused Documented By: ADELIA Magnesium Hydroxide (Milk Of Magnesia 30 Ml Oral.Susp) 30 ml PO DAILY PRN PRN Reason: Constipation Melatonin (Melatonin 3 Mg Tablet) 6 mg PO BEDTIME PRN PRN Reason: Insomnia Ondansetron HCl (Ondansetron Hcl 4 Mg/2 Ml Vial) 4 mg IVPUSH Q8H PRN PRN Reason: Nausea and Vomiting Oxycodone HCl (Oxycodone Hcl Immed Release 5 Mg Tablet) 5 mg PO Q4H PRN PRN Reason: Pain, Moderate(Pain Scale 4-6) Last Admin: 04/28/25 09:44 Dose: 5 mg Documented By: EILEEN Sodium Chloride (0.9 % Sodium Chloride Flush 3 Ml Syringe) 3 ml IVFLUSH QSHIFT [facility] Last Admin: 04/28/25 09:03 Dose: Not Given Documented By: ADELIA Non-Admin Reason: IV Running Labs 04/28/25 04:04 04/28/25 04:04 Labs: Laboratory Results - last 24 hr 04/28/25 04:04 MCV 98.7 H MCH 31.9 MCHC 32.4 RDW 14.6 Plt Count 62 L MPV Not Reportable Immature Gran % (Auto) 0.3 Neut % (Auto) 75.6 H Lymph % (Auto) 11.2 L [place] % (Auto) 10.3 Eos % (Auto) 2.2 Baso % (Auto) 0.4 Lymph # (Auto) 0.8 L [place] # (Auto) 0.7 Eos # (Auto) 0.2 Baso # (Auto) 0.0 Abs Immat Gran (auto) 0.02 Absolute Neuts (auto) 5.2 Absolute Nucleated RBC 0.000 Nucleated RBC % (auto) 0.0 Smear Tech's Comments VERIFIED Anion Gap 10 L Estim Creat Clear Calc 49.6 Estimated GFR > 60 Random Glucose 130 H Calcium 8.2 L D Total Bilirubin 0.4 AST 34 H ALT 21 Alkaline Phosphatase 48 Total Protein 5.3 L Albumin 3.7 Assessment and Plan (1) Ischemic cardiomyopathy: Status: Acute Plan 79-year-old female with a past medical history significant for chronic ITP, ischemic cardiomyopathy, GERD, chronic HF are EF, COPD, asthma syndrome presents to the ER originally after a fall. Workup was unremarkable and she was scheduled for discharge. Upon discharge she was found to have sats of 84%. CTA of the chest was done which demonstrated mild atypical pneumonia Atypical pneumonia ceftriaxone/azithromycin titrate O2 to maintain sats greater than equal to 92% DuoNebs q.4 hours while awake as needed Chronic ITP no active bleeding follow clinically Ischemic cardiomyopathy/HFrEF stable and well compensated continue outpatient therapies Fall Fell off couch while sleeping bruising to right arm and knee Full code SCD boots Quality Stroke Does the patient have a stroke diagnosis?: No VTE Prior VTE?: No VTE Risk Level:: Medical - moderate - high VTE Device Contraindication: Treatment Not Indicated VTE Drug Contraindication: N/A - Med Ordered
[2025-04-28] MEDS: 0.9 % Sodium Chloride Flush 3 ML SYRINGE IVFLUSH ×2 (15:38→21:24)
[2025-04-28] MEDS: Morphine Sulfate ER 15 MG TABLET.ER PO (21:23)
[2025-04-29] MEDS: oxyCODONE HCl Immed Release 5 MG TABLET PO ×2 (01:09→05:07)
[2025-04-29 03:20] VITALS: BP 133/77; PULSE 78; RESP 18; TEMP 36.4; O2SAT 93
[2025-04-29 06:57] VITALS: BP 118/56; PULSE 84; RESP 18; TEMP 36.3; O2SAT 93
[2025-04-29 08:52] VITALS: BP 136/63; PULSE 80
[2025-04-29] MEDS: Morphine Sulfate ER 15 MG TABLET.ER PO (08:53)
[2025-04-29] MEDS: Ferrous Sulfate 324 MG TABLET.DR PO (08:53)
[2025-04-29] MEDS: Metoprolol Succinate ER 25 MG TAB.ER.24H PO (08:53)
--- NOTE | 2025-04-29 09:55 | PM.DS ---
DS: Providers Provider Date of Service: 04/29/25 Date of admission: 04/27/25 14:20 Date of discharge: 04/29/25 Primary care physician: Joseph Magana MD DS: Diagnosis Discharge Diagnosis (1) Ischemic cardiomyopathy: Status: Acute DS: Summary Hospital Course Hospital Course: History and physical as per admitting provider. Patient comes to the emergency room complaining of a fall and weakness. According to the patient, yesterday she went to take a nap in her couch, patient believes that she may have rolled over and fell on the ground. Patient was able to get up. However, since yesterday, she has been complaining of worsening right knee pain and left elbow pain. Patient states that she does not think that she hit her head or lost consciousness. Patient is not on blood thinners, however patient has history of thrombocytopenia. Prior to discharge it was noted that her sats were 86% on room air and she is not O2 dependent at home. CTA of the chest was done which demonstrated an atypical pneumonia. 79-year-old woman treated for atypical pneumonia. Treated with Rocephin and azithromycin. Titrated oxygen and now on room air. Treated with DuoNebs as well. Very mild cough noted not requiring cough suppressants. Plan will be to discharge patient to complete course of antibiotics. Chronic ITP. No active bleeding, follow up with outpatient providers. Ischemic cardiomyopathy/HFrEF. Stable and well compensated. Continue outpatient therapies Fall. Fell off couch while sleeping. bruising to right arm and knee Time Attestation Discharge Coordination Time (in mins): 40 Quality: Safe Use of Opioids Does Pt have an Active Cancer Diagnosis on the Problem List?: No Quality: Stroke Does the patient have a stroke diagnosis?: No Physical Exam Exam: Exam: Appearing in no acute distress head is normocephalic atraumatic eyes pupils are PERRLA sclera is anicteric mouth throat mucous membranes are intact and moist neck is supple no lymphadenopathy, no JVD noted lung sounds are clear to auscultation heart regular rate rhythm, clear S1, S2 positive bowel sounds, abdomen is soft, nontender neuro patient is alert x3, no focal deficits Vital Signs: Vital Signs: Last Vital Signs Temp 97.4 F 04/29/25 06:57 Pulse 80 04/29/25 08:52 Resp 18 04/29/25 06:57 BP 136/63 04/29/25 08:52 Pulse Ox 93 04/29/25 06:57 O2 Del Method Room Air 04/29/25 06:57 O2 Flow Rate 2 04/29/25 03:20 BMI result Body Mass Index 31.6 DS: Data Data Completed and Pending Completed studies during hospitalization [Text1]: Procedures Destruction of Ascending Colon, Via Natural or Artificial Opening Endoscopic (06/12/24) Destruction of Cecum, Via Natural or Artificial Opening Endoscopic (01/27/22) Destruction of Duodenum, Via Natural or Artificial Opening Endoscopic (06/12/24) Excision of Ascending Colon, Via Natural or Artificial Opening Endoscopic, Diagnostic (06/12/24) Excision of Duodenum, Via Natural or Artificial Opening Endoscopic, Diagnostic (06/12/24) Excision of Rectum, Via Natural or Artificial Opening Endoscopic, Diagnostic (06/12/24) Excision of Sigmoid Colon, Via Natural or Artificial Opening Endoscopic, Diagnostic (06/12/24) Excision of Stomach, Pylorus, Via Natural or Artificial Opening Endoscopic, Diagnostic (06/12/24) Excision of Transverse Colon, Via Natural or Artificial Opening Endoscopic, Diagnostic (06/12/24) Transfusion of Nonautologous Red Blood Cells into Peripheral Vein, Percutaneous Approach (06/12/24) Labs on day of discharge: Preliminary micro results at discharge 04/27/25 14:36 Blood Culture - Preliminary Blood - Venous No growth after 24 hours. 04/27/25 14:09 Blood Culture - Preliminary Blood - Venous No growth after 24 hours. Discharge Plan Discharge Anticipated Discharge Date/Time: 04/29/25 09:52 Patient Disposition: Home Health Service Discharge Diagnosis: Fall Pneumonia Referrals: Name,MD Joseph [Primary Care Provider, Internal Medicine] - 1 Week Discharge Medications: New cefuroxime axetil 500 mg tablet 500 mg PO BID Qty: 8 0RF azithromycin 500 mg tablet 500 mg PO DAILY 4 Days Qty: 4 0RF Continued alprazolam 0.5 mg tablet 1 tab PO TID PRN (Reason: Anxiety) cholecalciferol (vitamin D3) [Vitamin D3] 25 mcg (1,000 unit) Capsule 1,000 unit PO DAILY ondansetron HCl 4 mg tablet 1 tab PO Q8H PRN (Reason: Nausea And Vomiting) Hair, Skin and Nails (biotin) 10,000 mcg Tablet,Chewable 10,000 mcg PO DAILY albuterol sulfate 2.5 mg /3 mL (0.083 %) solution for nebulization 2.5 mg inhalation Q6H PRN (Reason: Wheezing) vitamin A 2,400 mcg Capsule 2,400 mcg PO DAILY cyanocobalamin (vitamin B-12) 1,000 mcg Tablet 1,000 mcg PO DAILY albuterol sulfate 90 mcg/actuation HFA aerosol inhaler 2 puff inhalation Q4H PRN (Reason: Wheezing) oxycodone-acetaminophen 10-325 mg tablet 1 tab PO QID PRN (Reason: Pain) morphine 15 mg tablet extended release 15 mg PO BID ferrous sulfate 325 mg (65 mg iron) Tablet 325 mg PO DAILY metoprolol succinate [Toprol XL] 25 mg tablet extended release 24 hr 25 mg PO DAILY Discharge Orders: Discharge Order (Routine); Ordered 04/29/25 Ordered By: Adriana Hanna Diet: Advance to usual diet Activity on Discharge: As tolerated Stand Alone Forms: Patient Portal Discharge page Print Language: Faroese Care Plan Goals: Complete course of antibiotics Health Concerns: Fall pneumonia Plan of Treatment: Follow-up with primary care provider as needed Take all medications as prescribed Assessment: See discharge summary
== END 2025-04-29 14:55 | disposition home health service (06) | DRG 194 ==
LOC: HO.ED 04-27 13:33 → HO.EDOVER 04-27 14:21 → HO.S3 04-28 07:31
PROVIDERS: Emergency Medicine; Admitting Provider Hospitalist; Emergency Provider Emergency Medicine; PCP Internal Medicine Geriatric Medicine; Visit Provider Nurse Practitioner Acute Care
DX: J18.9 Pneumonia, unspecified organism (principal); D69.3 Immune thrombocytopenic purpura; J44.0 Chronic obstructive pulmonary disease with (acute) lower respiratory infection; I50.22 Chronic systolic (congestive) heart failure; I25.5 Ischemic cardiomyopathy; M25.561 Pain in right knee; M25.522 Pain in left elbow; W08.XXXA Fall from other furniture, initial encounter; Z87.891 Personal history of nicotine dependence; Z79.891 Long term (current) use of opiate analgesic; Z79.899 Other long term (current) drug therapy
CPT/HCPCS: 36415; 70450; 71045; 71275; 72125; 73070; 73560; 80053; 80307; 81001; 81003; 82803; 83605; 84484; 85025; 87040; 93005; 94640; 97161; 99285; J0456; J0696; J1271; J1885; Q9967

== ENCOUNTER → 2025-04-26 20:58 | Outpatient (BNV) | payer OTHER, SELFPAY | PROVIDERS: Emergency Provider Emergency Medicine; PCP Internal Medicine Geriatric Medicine; Visit Provider Internal Medicine | DX: R94.31 Abnormal electrocardiogram [ECG] [EKG] (principal); R53.1 Weakness | CPT/HCPCS: 93010 ==

== ENCOUNTER → 2025-04-26 21:10 | Outpatient (BNV) | payer OTHER, SELFPAY | PROVIDERS: Emergency Provider Emergency Medicine; PCP Internal Medicine Geriatric Medicine; Visit Provider Radiology Diagnostic Radiology | DX: M43.12 Spondylolisthesis, cervical region (principal); R90.82 White matter disease, unspecified; M25.522 Pain in left elbow; M25.561 Pain in right knee | CPT/HCPCS: 70450; 72125; 73070; 73560 ==

== ENCOUNTER → 2025-04-27 08:11 | Outpatient (BNV) | payer OTHER, SELFPAY | PROVIDERS: Emergency Provider Emergency Medicine; PCP Internal Medicine Geriatric Medicine; Visit Provider Radiology Vascular & Interventional Radiology | DX: J18.9 Pneumonia, unspecified organism (principal); J84.9 Interstitial pulmonary disease, unspecified | CPT/HCPCS: 71045; 71275 ==

== ENCOUNTER → 2025-04-27 14:20 | Outpatient (BNV) | payer OTHER, SELFPAY | PROVIDERS: Admitting Provider Hospitalist; Emergency Provider Emergency Medicine; PCP Internal Medicine Geriatric Medicine; Visit Provider Hospitalist | DX: I25.5 Ischemic cardiomyopathy (principal) | CPT/HCPCS: 99232 ==

== ENCOUNTER 2025-05-18 01:27 | Emergency (ER) | payer OTHER, SELFPAY ==
--- NOTE | 2025-05-18 | ECG_ITS ---
Test Reason : SOB Blood Pressure : */* mmHG Vent. Rate : 77 BPM Atrial Rate : 77 BPM P-R Int : 156 ms QRS Dur : 88 ms QT Int : 416 ms P-R-T Axes : 51 -36 12 degrees QTcB Int : 470 ms Normal sinus rhythm Left axis deviation Minimal voltage criteria for LVH, may be normal variant ( [place] product ) Inferior infarct (cited on or before 27-Jan-2022) T wave abnormality, consider anterior ischemia Abnormal ECG When compared with ECG of 26-Apr-2025 20:58, T wave inversion no longer evident in Lateral leads Referred By: Generic ED Physician Electronically Signed By: TEDDY MOTLEY
--- NOTE | ~2025-05-18 | XR_ITS ---
CLINICAL HISTORY: sob 1 view chest x-ray Comparison: CR - XR CHEST 1V - 04/27/25 08:23 EDT Findings: Normal heart size. Calcified thoracic aorta. Slight retrocardiac opacity, more apparent than prior chest radiograph on 04/27/2025 that may represent a pneumonia. No focal consolidations elsewhere. No pleural effusions. Degenerative changes of both shoulders. IMPRESSION: Slight retrocardiac opacity that may represent a pneumonia, more apparent than 04/27/2025. This document has been electronically signed by: Micah Shin MD on 05/18/2025 03:16:01
[2025-05-18 01:30] VITALS: BP 125/73; BP 172/70; PULSE 88; PULSE 98; RESP 15; TEMP 36.9; O2SAT 95; O2SAT 97; BMI 30.6
[2025-05-18 01:52] LABS: Hematocrit 29.8 % (37.0-47.0); Hemoglobin 9.4 g/dl (12.0-16.0); Imm Gran Abs Auto 0.01 X10*3/uL (0.00-0.03); Imm Gran Pct Auto 0.2 % (0.0-0.4); Lymphocytes Absolute Auto 0.9 X10*3/uL (1.2-4.9); MANUAL DIFF FLAG NO; Mean Corpuscular HGB Conc 31.5 g/dl (31.0-35.0); Mean Corpuscular Hemoglobin 30.2 pg (27.0-33.0); Mean Corpuscular Volume 95.8 fL (80.0-98.0); NRBC Abs Auto 0.000 X10*3/uL (0.0-0.012); NRBC Pct Auto 0.0 /100WBC (0.0-0.2); PLT CLUMP 1; Red Blood Count 3.11 X10*6/uL (4.20-5.50); SCAN SMEAR FLAG 1; White Blood Count 6.1 X10*3/uL (4.8-10.8)
[2025-05-18 01:59] LABS: Alanine Aminotransferase 17 U/L (0-31); Albumin Level 4.0 g/dL (3.5-5.0); Alkaline Phosphatase 48 U/L (39-117); Anion Gap 15 (12-20); Aspartate Amino Transferase 32 U/L (5-31); Blood Urea Nitrogen 14 mg/dL (9-16); Calcium 8.7 mg/dL (8.4-10.2); Carbon Dioxide 29 mmol/L (22-29); Chloride 106 mmol/L (96-108); Creatinine Clr Calc Pharmacy 57.0; Estimated Glomerular Filt Rate > 60; Potassium 4.4 mmol/L (3.3-5.1); Sodium 146 mmol/L (135-145); Total Protein 5.9 g/dL (6.5-8.0)
[2025-05-18 02:05] LABS: B Type Natriuretic Peptide 107 pg/mL (<100)
[2025-05-18 02:06] LABS: Troponin-I High Sensitivity 7.1 ng/L (<3.5-17.0)
[2025-05-18 02:45] LABS: Platelet Count 57 X10*3/uL (160-400)
--- OUTSIDE RECORDS SUMMARY | 2025-05-18 02:52 | XMS_ITS | Continuity of Care Document ---
Author Name [facility] Organization [facility] Care Team Providers Care Customer Care Associate Name Role Phone [facility] Unavailable Unavailable Social History Combined list of available smoking, tobacco, and other social history from Department of Defense and Veterans Affairs facilities. Social History Type Response Date Comment Sourc e This section is an empty social history section. [facility]
--- OUTSIDE RECORDS SUMMARY | 2025-05-18 02:54 | XMS_ITS | Encounter Summary ---
Author Organization [employer] Address [address] [place] [address] Care Team Providers Care Workcell Operator Name Role Phone Name, Joseph KIM Primary Care Provider Encounter Details Date Type Department Care Team (Late st Contact Info) Description 08/16/2024 Orders Only [facility] [address], [place] [id number] Name, MD Joseph [address] [place], [place] [phone] Iron deficiency anemia, unspecified iron deficiency anemia [...] Care Team (Late st Contact Info) Description 05/23/2025 10:30 AM EDT Telemedicine [facility] [address] [place] [address] Kaitlynn Landrum RN documented as of this encounter Visit Diagnoses Diagnosis Iron deficiency anemia, unspecified iron deficiency anemia type documented in this encounter Additional Health Concerns Assessment Noted Time PHQ-9 Depression Total Score: 0 01/30/20 24 11:07 AM EDT documented as of this encounter Care Teams Workcell Operator Relationship Specialty Start Date End Date Name, MD Joseph [address] [place] [address] PCP - General Family Medicine 01/21/22 documented as of this encounter
--- OUTSIDE RECORDS SUMMARY | 2025-05-18 02:54 | XMS_ITS | Encounter Summary ---
Author Organization [employer] Address [address] [place] [address] Care Team Providers Care Nursing Program Coordinator Name Role Phone Name, Joseph KIM Primary Care Provider [phone] Encounter Details Date Type Department Care Team (Late st Contact Info) Description 08/02/2024 Orders Only [facility] [address] [place], [place] [phone] Name, MD Joseph [address] [place], [place] [id number] Iron deficiency anemia, unspecified iron deficiency anemia [...] Info) Description 05/23/2025 10:30 AM EDT Telemedicine [facility] [address] [place] [address] Kaitlynn Landrum RN documented as of this encounter Visit Diagnoses Diagnosis Iron deficiency anemia, unspecified iron deficiency anemia type documented in this encounter Additional Health Concerns Assessment Noted Time PHQ-9 Depression Total Score: 0 01/30/20 24 11:07 AM EDT documented as of this encounter Care Teams Nursing Program Coordinator Relationship Specialty Start Date End Date Name, MD Joseph [address] [place] [address] PCP - General Family Medicine 01/21/22 documented as of this encounter
--- OUTSIDE RECORDS SUMMARY | 2025-05-18 02:54 | XMS_ITS | Encounter Summary ---
Author Organization [employer] Address [address] [place] [address] Care Team Providers Care Chemical Dependency Therapist Name Role Phone Name, Joseph KIM Primary Care Provider [phone] Encounter Details Date Type Department Care Team (Late st Contact Info) Description 05/16/2025 Telephone [facility] [address] [place], [place] [id number] Irena Pacheco, SUNSH[employer] Social History Tobacco Use Types Packs/Day Years Used Date Smoking Tobacco: Former Cigarettes Q uit: 2000 Smokeless Tobacco: Never Alcohol Use Standard Drinks/Week Comments Not Currently 0 (1 standard drink = 0.6 oz pur e alcohol) Alcohol Answer Date Recorded How often do you have a drink containing alcohol ? 2 04/04/2025 How many drinks containing a lcohol do you have on a typical day when you are drinking? 0 04/04/2025 How often do you have six or more drinks on one occasion? 1 04/04/2025 Depression Answer Date Recorded Patient Health Questionnaire-9 Score 2 04/04/2025 Patient Health Questionnaire-9 Score 2 04/04/2025 Last PHQ-9: Questionnaire Data Not on file 0 04/04/2025 Housing Stability Answer Date Recorded What is your housing situation today? I have isabela cruz 04/04/[address] you li ve. Do you have problems with any of the following? Not on file 04/04/2025 Food Insecurity Answer Date Recorded Within the past 12 months, y ou worried that your food would run out before you got money to buy more: Never True 04/04/2025 Within the past 12 months,th e food [...] shut off services in your home? No 04/04/2025 Depression Answer Date Recorded Patient Health Questionnaire-2 Score 1 04/04/2025 Internet Access Answer Date Recorded Internet Access Q1 Yes 04/04/2025 Internet Access Q2 Not on file 04/04/2025 Comments Unknown Sex and Gender Information Value Date Recorded Sex Assigned at Female 07/18/2022 10:29 AM EDT Legal Sex Female 10:29 AM EDT Gender Identity Female 07/18/2022 10:29 AM EDT Sexual Orientation Straight 07/18/2022 10 :29 AM EDT documented as of this encounter Miscellaneous Notes * Telephone Encounter - Irena Pacheco RN - 05/16/2025 9:10 AM EDT Tc to pt per PCP request. Pt reports they had a right knee replacement in 2017 and ever since they have been experiencing pain. Pt reports they take their percocet 4x a day and morphine 2x a day. Pt reports they usually ice the area with a triple fold ice pack to wrap around their knee but it's currently in the freezer right now so that it can get cold again. Pt reports the pain is a 12/10 and took a morphine while on the phone with tech writer. Pt reports the morphine will kick in 30 minutes after taking it. Pt reports they usually will take the Percocet first if that does not kick in to alleviate the pain then they will take the morphine a half an hour later which seem to help. Pt reports they're supposed to get a aid to help the around the house from [facility] ( [facility]) but they have been having a hard time in sending someone in due to that time slot pt needsthem in their home. Pt reports walking up and down the stairs aggravates their knee and they're always scared if they might fall. Pt reports recently they fell asleep on their couch and rolled off. Pt denied hitting their head but has some bruising on their arm. Pt reports that PCP spoke with theirMain doctor who had recommend an increase to their pain medication. Pt is requesting for the provider to increase their pain medications and message sent to PCP for review. documented in this encounter Plan of Treatment Upcoming Encounters Date Type Department Care Team (Late st Contact Info) Description 05/23/2025 10:30 AM EDT Telemedicine [facility] [address] [place] [address] Kaitlynn Landrum RN documented as of this encounter Visit Diagnoses Not on filedocumented in this encounter Additional Health Concerns Assessment Noted Time PHQ-9 Depression Total Score: 2 04/04/20 25 11:39 AM EDT documented as of this encounter Care Teams Chemical Dependency Therapist Relationship Specialty Start Date End Date Name, MD Joseph [address] [place] [id number] PCP - General Family Medicine 01/21/22 documented as of this encounter
--- OUTSIDE RECORDS SUMMARY | 2025-05-18 02:54 | XMS_ITS | Encounter Summary ---
Author Organization [employer] [facility] Address [address] [place] [address] 7[address] [place] [address] Care Team Providers Care Cert Pharmacy Tech Name Role Phone Name, Joseph KIM Primary Care Provider [phone] Encounter Details Date Type Department Care Team (Late st Contact Info) Description 09/01/2022 Orders Only [address] [address] Cheryl García, SUNSHINE Social History Tobacco Use Types Packs/Day [...] Info) Description 05/23/2025 10:30 AM EDT Telemedicine [address] [address] Kaitlynn Landrum, SUNSHINE Pending Results Name Type [...] Sensitivity Troponin I (03/20/2023 2:31 PM EDT) [facility] TROPONIN I HIGH SENSITIVITY 5.0 <3.5 - 17.0 ng/L [facility] Comment:The [facility] high sens itivity Troponin-I results should beused in conjunction with other diagnostic information suchas ECG, clinical observations and information, and patientsymptoms to aid in the diagnosis of [place]. 03/20/2023 2:31 PM EDT 03/20/2023 2:35 PM EDT us [facility] External Provider LAB BLO OD ORDERABLES Final Result [facility] [address] [place] [phone] * (ABNORMAL) Drug Monitoring, Panel 1, Screen, Urine (03/20/2023 11:21 AM EDT) Pathologist [facility] Opiate Screen Urine Not Detected Not Detect [facility] Comment:Opiate cut-off is 30 0 ng/mL.Positive results are unconfirmed and should not be used fornon-medical purposes. Barbiturates, Urine Not Detected Not Detect [facility] Comment:Barbiturate cut-off is 200 ng/mL.Positive results are unconfirmed and should not be used fornon-medical purposes. Phencyclidine Screen Urine Not Detected Not Detect [facility] Comment:Phencyclidine cut-of f is 25 ng/mL.Positive results are unconfirmed and should not be used fornon-medical purposes. Amphetamine Screen Urine Not Detected Not Detect [facility] Comment:Amphetamine cut-off is 1000 ng/mL.Positive results are unconfirmed and should not be used fornon-medical purposes. Benzodiazepines Screen Urine Not Detected Not Detect [facility] Comment:Benzodiazepine cut-o ff is 200 ng/mL.Positive results are unconfirmed and should not be used fornon-medical purposes. Cocaine Screen Urine Not Detected Not Detect [facility] Comment:Cocaine cut-off is 3 00 ng/mL.Positive results are unconfirmed and should not be used fornon-medical purposes. Cannabinoid Screen Urine POSITIVE(A) Not Detect [facility] Comment:Cannabinoid cut-off is 50 ng/mL.Positive results are unconfirmed and should not be used fornon-medical purposes. FENTANYL URINE Not Detected Not Detect [facility] Comment:Fentanyl cut-off is 1 ng/mL.Positive results are unconfirmed and should not be used fornon-medical purposes. 03/20/2023 11:2 1 AM EDT 03/20/2023 11:53 AM EDT [facility] External Provider LAB URI NE ORDERABLES Final Result [facility] [address] [place] [address] [phone] * (ABNORMAL) Urinalysis, Complete, with Reflex to Culture (03/20/2023 11:21 AM EDT) Color Urine Yellow [facility] Appearance Urine Cloudy [facility] PH 5.5 5.0 - 9.0 [facility] Glucose Urine UA Negative Negative mg/dL [facility] Urine Blood Negative Negative [facility] Specific [facility] - Urine 1.010 1.005 - 1.025 [facility] Urine Protein Negative Neg-Trace mg/dL [facility] Urine Ketones Negative Negative mg/dL [facility] Nitrite Urine Negative Negative [facility] Leukocyte Esterase Urine Trace(A) Negative [facility] RBC Urine 3-5(A) 0 - 2 /HPF [facility] Urine WBC 0-5 0 - 5 /HPF [facility] Urine Squamous Epithelial Cell 6-10 0 - 2 /HPF [facility] Urine Bacteria Trace None Seen [facility] Hyaline Casts, Urine 0-2 0 - 2 /LPF [facility] 03/20/2023 11:2 1 AM EDT 03/20/2023 11:24 AM EDT Narrative [facility] - 03/20/2023 11:30 AM EDT [id number], Clean Catch [facility] External Provider LAB URI NE ORDERABLES Final Result Performing Organization Address [facility]/ZIP Co de Phone Number [facility] [address] [place] [phone] * Ethanol (03/20/2023 11:11 AM EDT) ETHANOL (MG/DL) IN SER/PLAS <10 mg/dL [facility] Comment:Serum/plasma ethanol results are to be used formedical/treatment purposes only. 03/20/2023 11:1 1 AM EDT 03/20/2023 11:19 AM EDT [facility] External Provider LAB BLO OD ORDERABLES Final Result Performing Organization Address [facility] Co de Phone Number [facility] [address] [place] [phone] * High Sensitivity Troponin I (03/20/2023 11:11 AM EDT) [facility] TROPONIN I HIGH SENSITIVITY 4.9 <3.5 - 17.0 ng/L [facility] Comment:The [facility] high sens itivity Troponin-I results should beused in conjunction with other diagnostic information suchas ECG, clinical observations and information, and patientsymptoms to aid in the diagnosis of [place]. 03/20/2023 11:1 1 AM EDT 03/20/2023 11:19 AM EDT [facility] External Provider LAB BLO OD ORDERABLES Final Result Performing Organization Address [facility] Co de Phone Number [facility] [address] [place] [phone] * B Type Natriuretic Peptide (BNP) (03/20/2023 11:11 AM EDT) [facility] B Type Natriuretic Peptide 94 <100 pg/mL [facility] Comment:For those patients w ho are being treated with Natrecor(nesiritide, recombinant BNP), BNP testing should beperformed at least two hours post treatment in order toensure that only endogenous levels of BNP are detected. 03/20/2023 11:1 1 AM EDT 03/20/2023 11:19 AM EDT [facility] External Provider LAB BLO OD ORDERABLES Final Result Performing Organization Address City/[facility] Co de Phone Number [facility] [address] [place] [phone] * Magnesium (03/20/2023 11:11 AM EDT) [facility] Magnesium 2.1 1.6 - 2.6 mg/dL [facility] 03/20/2023 11:1 1 AM EDT 03/20/2023 11:19 AM EDT [facility] External Provider LAB BLO OD ORDERABLES Final Result [facility] [address] [place] [address] [phone] * (ABNORMAL) Basic Metabolic Panel (03/20/2023 11:11 AM EDT) Sodium 145 135 - 145 mmol/L [facility] Potassium 4.4 3.3 - 5.1 mmol/L [facility] Chloride 109(H) 96 - 108 mmol/L [facility] Carbon Dioxide 29 22 - 29 mmol/L [facility] Anion Gap 11(L) 12 - 20 [facility] Urea Nitrogen (BUN) 15 9 - 16 mg/dL [facility] Creatinine, Serum 0.73 0.5 - 1.4 mg/dL [facility] Creatinine Clr Calc Pharmacy 63.7 [facility] Comment:Provided height and weight: 160.02 cm,80.2 kg.eGFR (calculated from the MDRD study equation) and eCrCl(calculated from the Cockcroft-Gault equation) are based ondifferent parameters and may not yield comparable results.If eCrCl result is absurd, please check patient'sheight/weight. Estimated Glomerular Filt Rate >60 [facility] Comment:NOTE: For -Am erican individuals, multiply the result by 1.210.Chronic Kidney Disease: Estimated GFR < 60 mL/min/[id number] Kidney Disease: Estimated GFR < 15 mL/min/1.73m2 Glucose 92 60 - 115 mg/dL [facility] Calcium 9.4 8.4 - 10.2 mg/dL [facility] 03/20/2023 11:1 1 AM EDT 03/20/2023 11:19 AM EDT [facility] External Provider LAB BLO OD ORDERABLES Final Result Performing Organization Address City/[facility]/ZIP Co de Phone Number [facility] [address] [place] [address] [phone] * (ABNORMAL) Hepatic Function Panel (03/20/2023 11:11 AM EDT) Bilirubin, Total 0.8 0.0 - 1.0 mg/dL [facility] Bilirubin, Direct 0.2 0.0 - 0.5 mg/dL [facility] Aspartate Amino Transferase 17 5 - 31 U/L [facility] Alanine Aminotransferase 12 0 - 31 U/L [facility] Total Protein 6.2(L) 6.5 - 8.0 g/dL [facility] Albumin Level 3.8 3.5 - 5.0 g/dL [facility] Alkaline Phosphatase 58 39 - 117 U/L [facility] 03/20/2023 11:1 1 AM EDT 03/20/2023 11:19 AM EDT [facility] External Provider LAB BLO OD ORDERABLES Final Result Performing Organization Address City/State/[facility] Co de Phone Number [facility] [address] [place] [phone] * COVID-19 ID NOW (BISHOP) (03/20/2023 11:11 AM EDT) IDNOW SERIAL# [id number] [facility] COVID-19 TEST Negative Negative [facility] COVID-19 NOTE See Note [facility] Comment: Results are for the identification of SARS-CoV2 RNA. TheSARS-CoV2 RNA is generally detectable in respiratory samplesduring the acute phase of infection. Positive results areindicative of the presence of SARS-CoV-2 RNA; clinicalcorrelation with patient history and other diagnosticinformation is necessary to determine patient infectionstatus. Positive results do not rule out bacterial infectionor co- infection with other viruses.Testing facilities within the [facility] and itsterritories are required to report all [...] use by authorized laboratories.Testing performed on the [employer] ID NOW utilizing NAAT. 03/20/2023 11:1 1 AM EDT 03/20/2023 11:18 AM EDT us [facility] Exter nal Provider LAB MOLECULAR DIAGNOSTICS ORDERABLES Final Result [facility] [address] [place] [phone] * (ABNORMAL) CBC auto differential (03/20/2023 11:11 AM EDT) White Blood Count 6.0 4.8 - 10.8 X10*3/uL [facility] Red Blood Count 3.33(L) 4.20 - 5.50 X10*6/uL [facility] Hemoglobin 10.0(L) 12.0 - 16.0 g/dl [facility] Hematocrit 32.1(L) 37.0 - 47.0 % [facility] Mean Corpuscular Volume 96.4 80.0 - 98.0 fL [facility] Mean Corpuscular Hemoglobin 30.0 27.0 - 33.0 pg [facility] Mean Corpuscular HGB Conc 31.2 31.0 - 35.0 g/dl [facility] Red Cell Distribution Width 15.0 11.0 - 16.0 % [facility] Platelet Count 71(L) 160 - 400 X10*3/uL [facility] Neutrophils Percent Auto 71.3 45 - 73 % [facility] Imm Gran Pct Auto 0.2 0.0 - 0.4 % [facility] Lymphocytes Percent Auto 14.5(L) 20 - 40 % [facility] Monocytes Percent Auto 9.6 2 - 11 % [facility] Eosinophils Percent Auto 3.7 0 - 4 % [facility] Basophils Percent Auto 0.7 0 - 2 % [facility] NRBC Pct Auto 0.0 0.0 - 0.2 /100WBC [facility] Neutrophils Absolute Auto 4.3 2.0 - 8.3 x10*3/uL [facility] Imm Gran Abs Auto 0.01 0.00 - 0.03 X10*3/uL [facility] Lymphocytes Absolute Auto 0.9(L) 1.2 - 4.9 X10*3/uL [facility] Monocytes Absolute Auto 0.6 0.1 - 1.2 X10*3/uL [facility] Eosinophils Absolute Auto 0.2 0.0 - 0.4 X10*3/uL [facility] Basophils Absolute Auto 0.0 0.0 - 0.2 X10*3/uL [facility] NRBC Abs Auto 0.000 0.0 - 0.012 X10*3/uL [facility] 03/20/2023 11:1 1 AM EDT 03/20/2023 11:19 AM EDT us [facility] External Provider LAB BLO OD ORDERABLES Final Result [facility] [address] [place] [phone] * Prothrombin Time-INR (03/20/2023 11:11 AM EDT) Prothrombin Time 13.0 10.0 - 13.1 SEC [facility] INTERNATIONAL NORM RATIO 1.1 0.9 - 1.1 [facility] Comment:INTERNATIONAL NORMAL IZED RATIO (INR) [...] AM EDT 03/20/2023 11:19 AM EDT us [facility] External Provider LAB BLO OD ORDERABLES Final Result [facility] [address] [place] [phone] * (ABNORMAL) CBC (12/09/2022 5:40 AM EDT) White Blood Count 6.7 4.8 - 10.8 X10*3/uL [facility] Red Blood Count 2.88(L) 4.20 - 5.50 X10*6/uL [facility] Hemoglobin 7.0(LL) 12.0 - 16.0 g/dl [facility] Comment:Critical HGB sent by a secure message and confirmed byMERVIN MOSQUERA on 12/09/22 at 0726 by CODIE. Hematocrit 24.2(L) 37.0 - 47.0 % [facility] Mean Corpuscular Volume 84.0 80.0 - 98.0 fL [facility] Mean Corpuscular Hemoglobin 24.3(L) 27.0 - 33.0 pg [facility] Mean Corpuscular HGB Conc 28.9(L) 31.0 - 35.0 g/dl [facility] Red Cell Distribution Width 19.8(H) 11.0 - 16.0 % [facility] Platelet Count 59(L) 160 - 400 X10*3/uL [facility] NRBC Pct Auto 0.0 0.0 - 0.2 /100WBC [facility] NRBC Abs Auto 0.000 0.0 - 0.012 X10*3/uL [facility] 12/09/2022 5:40 AM EDT 12/09/2022 6:43 AM EDT us [facility] External Provider LAB BLO OD ORDERABLES Final Result [facility] [address] [place] [address], [place] [phone] * (ABNORMAL) CBC auto differential (12/08/2022 5:58 AM EDT) White Blood Count 8.5 4.8 - 10.8 X10*3/uL [facility] Red Blood Count 2.92(L) 4.20 - 5.50 X10*6/uL [facility] Hemoglobin 6.9(LL) 12.0 - 16.0 g/dl [facility] Comment:Critical HGB sent by a secure message and confirmed byYUDITH on 12/08/22 at 0846 by YAZAN. Hematocrit 24.2(L) 37.0 - 47.0 % [facility] Mean Corpuscular Volume 82.9 80.0 - 98.0 fL [facility] Mean Corpuscular Hemoglobin 23.6(L) 27.0 - 33.0 pg [facility] Mean Corpuscular HGB Conc 28.5(L) 31.0 - 35.0 g/dl [facility] Red Cell Distribution Width 19.7(H) 11.0 - 16.0 % [facility] Platelet Count 77(L) 160 - 400 X10*3/uL [facility] Neutrophils Percent Auto 77.9(H) 45 - 73 % [facility] Imm Gran Pct Auto 0.4 0.0 - 0.4 % [facility] Lymphocytes Percent Auto 8.6(L) 20 - 40 % [facility] Monocytes Percent Auto 12.5(H) 2 - 11 % [facility] Eosinophils Percent Auto 0.2 0 - 4 % [facility] Basophils Percent Auto 0.4 0 - 2 % [facility] NRBC Pct Auto 0.0 0.0 - 0.2 /100WBC [facility] Neutrophils Absolute Auto 6.7 2.0 - 8.3 x10*3/uL [facility] Imm Gran Abs Auto 0.03 0.00 - 0.03 X10*3/uL [facility] Lymphocytes Absolute Auto 0.7(L) 1.2 - 4.9 X10*3/uL [facility] Monocytes Absolute Auto 1.1 0.1 - 1.2 X10*3/uL [facility] Eosinophils Absolute Auto 0.0 0.0 - 0.4 X10*3/uL [facility] Basophils Absolute Auto 0.0 0.0 - 0.2 X10*3/uL [facility] NRBC Abs Auto 0.000 0.0 - 0.012 X10*3/uL [facility] 12/08/2022 5:58 AM EDT 12/08/2022 6:50 AM EDT us [facility] External Provider LAB BLO OD ORDERABLES Edited Result - Final [facility] [address] [place] [phone] * (ABNORMAL) Basic Metabolic Panel, Fasting (12/08/2022 5:58 AM EDT) Sodium 140 135 - 145 mmol/L [facility] Potassium 4.3 3.3 - 5.1 mmol/L [facility] Chloride 106 96 - 108 mmol/L [facility] Carbon Dioxide 24 22 - 29 mmol/L [facility] Anion Gap 14 12 - 20 [facility] Urea Nitrogen (BUN) 13 9 - 16 mg/dL [facility] Creatinine, Serum 0.73 0.5 - 1.4 mg/dL [facility] Creatinine Clr Calc Pharmacy 62.7 [facility] Comment:Provided height and weight: 160.02 cm,78.01 kg.eGFR (calculated from the MDRD study equation) and eCrCl(calculated from the Cockcroft-Gault equation) are based ondifferent parameters and may not yield comparable results.If eCrCl result is absurd, please check patient'sheight/weight. Estimated Glomerular Filt Rate >60 [facility] Comment:NOTE: For -Am erican individuals, multiply the result by 1.210.Chronic Kidney Disease: Estimated GFR < 60 mL/min/1.62t3Yetlgl Kidney Disease: Estimated GFR < 15 mL/min/1.73m2 Glucose Fasting 110(H) 60 - 99 mg/dL [facility] Comment:A fasting glucose fr om 100-125 mg/dl is considered impaired(pre-diabetes). Calcium 8.2(L) 8.4 - 10.2 mg/dL [facility] 12/08/2022 5:58 AM EDT 12/08/2022 6:58 AM EDT [facility] External Provider LAB BLO OD ORDERABLES Final Result Performing Organization Address [facility]/ZIP Co de Phone Number [facility] [address] [place] [phone] * Slide Review (12/07/2022 4:40 PM EDT) Slide Review VERIFIED [facility] 12/07/2022 4:40 PM EDT 12/07/2022 4:48 PM EDT [facility] External Provider LAB BLO OD ORDERABLES Final Result Performing Organization Address [facility] Co de Phone Number [facility] [address] [place] [phone] * (ABNORMAL) CBC auto differential (12/07/2022 4:40 PM EDT) White Blood Count 7.5 4.8 - 10.8 X10*3/uL [facility] Red Blood Count 3.04(L) 4.20 - 5.50 X10*6/uL [facility] Hemoglobin 7.3(L) 12.0 - 16.0 g/dl [facility] Hematocrit 25.3(L) 37.0 - 47.0 % [facility] Mean Corpuscular Volume 83.2 80.0 - 98.0 fL [facility] Mean Corpuscular Hemoglobin 24.0(L) 27.0 - 33.0 pg [facility] Mean Corpuscular HGB Conc 28.9(L) 31.0 - 35.0 g/dl [facility] Red Cell Distribution Width 19.8(H) 11.0 - 16.0 % [facility] Platelet Count 70(L) 160 - 400 X10*3/uL [facility] Neutrophils Percent Auto 89.8(H) 45 - 73 % [facility] Imm Gran Pct Auto 0.3 0.0 - 0.4 % [facility] Lymphocytes Percent Auto 5.0(L) 20 - 40 % [facility] Monocytes Percent Auto 3.4 2 - 11 % [facility] Eosinophils Percent Auto 0.8 0 - 4 % [facility] Basophils Percent Auto 0.7 0 - 2 % [facility] NRBC Pct Auto 0.0 0.0 - 0.2 /100WBC [facility] Neutrophils Absolute Auto 6.8 2.0 - 8.3 x10*3/uL [facility] Imm Gran Abs Auto 0.02 0.00 - 0.03 X10*3/uL [facility] Lymphocytes Absolute Auto 0.4(L) 1.2 - 4.9 X10*3/uL [facility] Monocytes Absolute Auto 0.3 0.1 - 1.2 X10*3/uL [facility] Eosinophils Absolute Auto 0.1 0.0 - 0.4 X10*3/uL [facility] Basophils Absolute Auto 0.1 0.0 - 0.2 X10*3/uL [facility] NRBC Abs Auto 0.000 0.0 - 0.012 X10*3/uL [facility] 12/07/2022 4:40 PM EDT 12/07/2022 4:48 PM EDT us [facility] External Provider LAB BLO OD ORDERABLES Edited Result - Final Performing Organization Address [facility]/ZIP Co de Phone Number [facility] [address] [place] [phone] * COVID-19 ID NOW (BISHOP) (12/07/2022 1:41 PM EDT) IDNOW SERIAL# [id number] [facility] COVID-19 TEST Negative Negative [facility] Comment:[place] [id number] COVID-19 NOTE See Note [facility] Comment: Results are for the identification of SARS-CoV2 RNA. TheSARS-CoV2 RNA is generally detectable in respiratory samplesduring the acute phase of infection. Positive results areindicative of the presence of SARS-CoV-2 RNA; clinicalcorrelation with patient history and other diagnosticinformation is necessary to determine patient infectionstatus. Positive results do not rule out bacterial infectionor co- infection with other viruses.Testing facilities within the [facility] and itsterritories are required to report all [...] 1:41 PM EDT 12/07/2022 1:58 PM EDT [facility] Exter nal Provider LAB MOLECULAR DIAGNOSTICS ORDERABLES Final Result Performing Organization Address [facility]/ZIP Co de Phone Number [facility] [address] [place] [phone] * (ABNORMAL) CBC auto differential (12/07/2022 1:25 PM EDT) White Blood Count 5.6 4.8 - 10.8 X10*3/uL [facility] Red Blood Count 3.15(L) 4.20 - 5.50 X10*6/uL [facility] Hemoglobin 7.5(L) 12.0 - 16.0 g/dl [facility] Hematocrit 26.2(L) 37.0 - 47.0 % [facility] Mean Corpuscular Volume 83.2 80.0 - 98.0 fL [facility] Mean Corpuscular Hemoglobin 23.8(L) 27.0 - 33.0 pg [facility] Mean Corpuscular HGB Conc 28.6(L) 31.0 - 35.0 g/dl [facility] Red Cell Distribution Width 19.8(H) 11.0 - 16.0 % [facility] Platelet Count 69(L) 160 - 400 X10*3/uL [facility] Neutrophils Percent Auto 76.4(H) 45 - 73 % [facility] Imm Gran Pct Auto 0.2 0.0 - 0.4 % [facility] Lymphocytes Percent Auto 11.9(L) 20 - 40 % [facility] Monocytes Percent Auto 9.0 2 - 11 % [facility] Eosinophils Percent Auto 1.6 0 - 4 % [facility] Basophils Percent Auto 0.9 0 - 2 % [facility] NRBC Pct Auto 0.0 0.0 - 0.2 /100WBC [facility] Neutrophils Absolute Auto 4.3 2.0 - 8.3 x10*3/uL [facility] Imm Gran Abs Auto 0.01 0.00 - 0.03 X10*3/uL [facility] Lymphocytes Absolute Auto 0.7(L) 1.2 - 4.9 X10*3/uL [facility] Monocytes Absolute Auto 0.5 0.1 - 1.2 X10*3/uL [facility] Eosinophils Absolute Auto 0.1 0.0 - 0.4 X10*3/uL [facility] Basophils Absolute Auto 0.1 0.0 - 0.2 X10*3/uL [facility] NRBC Abs Auto 0.000 0.0 - 0.012 X10*3/uL [facility] 12/07/2022 1:25 PM EDT 12/07/2022 1:27 PM EDT [facility] External Provider LAB BLO OD ORDERABLES Final Result Performing Organization Address [facility] de Phone Number [facility] [address] [place] [address] [phone] * (ABNORMAL) B Type Natriuretic Peptide (BNP) (10/12/2022 4:50 PM EST) B Type Natriuretic Peptide 135(H) <100 pg/mL [facility] Comment:For those patients w ho are being treated with Natrecor(nesiritide, recombinant BNP), BNP testing should beperformed at least two hours post treatment in order toensure that only endogenous levels of BNP are detected. 10/12/2022 4:50 PM EST 10/12/2022 6:16 PM EST [facility] External Provider LAB BLO OD ORDERABLES Final Result Performing Organization Address [facility] de Phone Number [facility] [address] [place] [address] [phone] * Slide Review (10/12/2022 4:50 PM EST) Slide Review VERIFIED [facility] 10/12/2022 4:50 PM EST 10/12/2022 5:10 PM EST [facility] External Provider LAB BLO OD ORDERABLES Final Result Performing Organization Address [facility] de Phone Number [facility] [address] [place] [address] [phone] * (ABNORMAL) CBC auto differential (10/12/2022 4:50 PM EST) White Blood Count 5.5 4.8 - 10.8 X10*3/uL [facility] Red Blood Count 2.42(L) 4.20 - 5.50 X10*6/uL [facility] Hemoglobin 4.8(LL) 12.0 - 16.0 g/dl [facility] Comment:Results of HGB, HCT called to and read back by Roseline 10/12/22 at 1730 by GRIS. Hematocrit 18.5(LL) 37.0 - 47.0 % [facility] Mean Corpuscular Volume 76.4(L) 80.0 - 98.0 fL [facility] Mean Corpuscular Hemoglobin 19.8(L) 27.0 - 33.0 pg [facility] Mean Corpuscular HGB Conc 25.9(L) 31.0 - 35.0 g/dl [facility] Red Cell Distribution Width 17.9(H) 11.0 - 16.0 % [facility] Platelet Count 54(L) 160 - 400 X10*3/uL [facility] Neutrophils Percent Auto 67.6 45 - 73 % [facility] Imm Gran Pct Auto 0.2 0.0 - 0.4 % [facility] Lymphocytes Percent Auto 20.0 20 - 40 % [facility] Monocytes Percent Auto 9.9 2 - 11 % [facility] Eosinophils Percent Auto 1.8 0 - 4 % [facility] Basophils Percent Auto 0.5 0 - 2 % [facility] NRBC Pct Auto 0.0 0.0 - 0.2 /100WBC [facility] Neutrophils Absolute Auto 3.7 2.0 - 8.3 x10*3/uL [facility] Imm Gran Abs Auto 0.01 0.00 - 0.03 X10*3/uL [facility] Lymphocytes Absolute Auto 1.1(L) 1.2 - 4.9 X10*3/uL [facility] Monocytes Absolute Auto 0.5 0.1 - 1.2 X10*3/uL [facility] Eosinophils Absolute Auto 0.1 0.0 - 0.4 X10*3/uL [facility] Basophils Absolute Auto 0.0 0.0 - 0.2 X10*3/uL [facility] NRBC Abs Auto 0.000 0.0 - 0.012 X10*3/uL [facility] 10/12/2022 4:50 PM EST 10/12/2022 5:10 PM EST us [facility] External Provider LAB BLO OD ORDERABLES Edited Result - Final [facility] [address] [place] [address] [phone] documented in this encounter Visit Diagnoses Not on filedocumented in this encounter Care Teams Cert Pharmacy Tech Relationship Specialty Start Date End Date Name, MD Joseph [address] [place] [phone] PCP - General Family Medicine 01/21/22 documented as of this encounter
--- OUTSIDE RECORDS SUMMARY | 2025-05-18 02:54 | XMS_ITS | Encounter Summary ---
Author Organization [employer] [facility] Address [address] [place] [address] [address] [place] [address] Care Team Providers Care Bakery Associate Name Role Phone Name, Joseph KIM Primary Care Provider [phone] Encounter Details Date Type Department Care Team (Late st Contact Info) Description 11/11/2022 Abstract [facility] [address] [place] [phone] Name, MD Joseph [address] [place] [address] [phone] Social History Tobacco Use Types Packs/Day Years [...] Info) Description 05/23/2025 10:30 AM EDT Telemedicine [facility] [address] [place] [phone] Kaitlynn Landrum RN documented as of this encounter Visit Diagnoses Not on filedocumented in this encounter Additional Health Concerns Assessment Noted Time PHQ-9 Depression Total Score: 4 09/22/19 23 11:14 AM EST documented as of this encounter Care Teams Bakery Associate Relationship Specialty Start Date End Date Name, MD Joseph [address] [place] [address] PCP - General Family Medicine 01/21/22 documented as of this encounter
--- OUTSIDE RECORDS SUMMARY | 2025-05-18 02:54 | XMS_ITS | Encounter Summary ---
Author Organization [employer] Address [address] [facility] [address] [place] [address] Care Team Providers Care Heating And Cooling Systems Engineer Name Role Phone Name, Joseph KIM Primary Care Provider [phone] Encounter Details Date Type Department Care Team (Late st Contact Info) Description 08/23/2024 Orders Only [facility] [address] [place], [place] [phone] Name, MD Joseph [address] [place], [place] [phone] Iron deficiency anemia, unspecified iron deficiency anemia [...] Info) Description 05/23/2025 10:30 AM EDT Telemedicine [facility] [address] [place] [phone] Kaitlynn Landrum RN documented as of this encounter Procedures Procedure Name Priority Date/Time Associated Diagnosis Comments CBC WITH AUTO DIFFERENTIAL Routine 01/10/2025 3:22 PM EDT Iron deficiency anemia, unspecified iron deficiency anemia type documented in this encounter Results * (ABNORMAL) CBC auto differential (01/10/2025 3:22 PM EDT) White Blood Count 10.6 4.8 - 10.8 X10*3/uL [facility] Red Blood Count 2.98(L) 4.20 - 5.50 X10*6/uL [facility] Hemoglobin 9.1(L) 12.0 - 16.0 g/dl [facility] Hematocrit 29.5(L) 37.0 - 47.0 % [facility] Mean Corpuscular Volume 99.0(H) 80.0 - 98.0 fL [facility] Mean Corpuscular Hemoglobin 30.5 27.0 - 33.0 pg [facility] Mean Corpuscular HGB Conc 30.8(L) 31.0 - 35.0 g/dl [facility] Red Cell Distribution Width 17.2(H) 11.0 - 16.0 % [facility] Platelet Count 125(L) 160 - 400 X10*3/uL [facility] Neutrophils Percent Auto 73.3(H) 45 - 73 % [facility] Imm Gran Pct Auto 0.3 0.0 - 0.4 % [facility] Lymphocytes Percent Auto 13.9(L) 20 - 40 % [facility] Monocytes Percent Auto 8.8 2 - 11 % [facility] Eosinophils Percent Auto 3.0 0 - 4 % [facility] Basophils Percent Auto 0.7 0 - 2 % [facility] NRBC Pct Auto 0.0 0.0 - 0.2 /100WBC [facility] Neutrophils Absolute Auto 7.7 2.0 - 8.3 x10*3/uL [facility] Imm Gran Abs Auto 0.03 0.00 - 0.03 X10*3/uL [facility] Lymphocytes Absolute Auto 1.5 1.2 - 4.9 X10*3/uL [facility] Monocytes Absolute Auto 0.9 0.1 - 1.2 X10*3/uL [facility] Eosinophils Absolute Auto 0.3 0.0 - 0.4 X10*3/uL [facility] Basophils Absolute Auto 0.1 0.0 - 0.2 X10*3/uL [facility] NRBC Abs Auto 0.000 0.0 - 0.012 X10*3/uL [facility] Blood Venous blood specimen / Unknown 01/10/2025 3:22 PM EDT 01/10/2025 4:01 PM EDT Joseph Magana MD LAB BLOOD ORDERABLES Edited Resu lt - Final [facility] [address] [place] [phone] documented in this encounter Visit Diagnoses Diagnosis Iron deficiency anemia, unspecified iron deficiency anemia type documented in this encounter Additional Health Concerns Assessment Noted Time PHQ-9 Depression Total Score: 0 01/30/20 24 11:07 AM EDT documented as of this encounter Care Teams Heating And Cooling Systems Engineer Relationship Specialty Start Date End Date Name, MD Joseph [address] [place] [phone] PCP - General Family Medicine 01/21/22 documented as of this encounter
--- OUTSIDE RECORDS SUMMARY | 2025-05-18 02:54 | XMS_ITS | Encounter Summary ---
Author Organization [email or web address] Address [address] [facility] [address] [place] [address] Care Team Providers Care Theatrical Rigger Name Role Phone Name, Joseph KIM Primary Care Provider Encounter Details Date Type Department Care Team (Late st Contact Info) Description 09/06/2024 Orders Only [facility] [address] [place], [place] [phone] Name, MD Joseph [address] [place], [place] [phone] Iron deficiency anemia, unspecified iron deficiency anemia [...] Info) Description 05/23/2025 10:30 AM EDT Telemedicine [facility] [address] [place] [address] Kaitlynn Landrum RN documented as of this encounter Visit Diagnoses Diagnosis Iron deficiency anemia, unspecified iron deficiency anemia type documented in this encounter Additional Health Concerns Assessment Noted Time PHQ-9 Depression Total Score: 0 01/30/20 24 11:07 AM EDT documented as of this encounter Care Teams Theatrical Rigger Relationship Specialty Start Date End Date Name, MD Joseph [address] [place] [address] PCP - General Family Medicine 01/21/22 documented as of this encounter
--- OUTSIDE RECORDS SUMMARY | 2025-05-18 02:54 | XMS_ITS | Clinical Summary ---
Author Organization [employer] Address [address] [place] [address] [address] [place] [address] Care Team Providers Care Engine Lathe Set Up Operator Tool Name Role Phone Name, Joseph KIM Primary Care Provider [phone] Allergies Active Allergy Reactions Criticality Noted Date Comments Ntsoaofjuo-Zyfxjbu-Lhkdcwaftl 2017 Penicillin G 08/24/2022 Penicillin V Hives,Rash [...] not swallow. 12 g 11 02/23/20 24 Active pantoprazole (ProtoNix) 40 MG EC tablet Take 1 tablet by mouth before breakfast. 06/18/20 24 Active cholecalcifero l (Vitamin D-3) 25 MCG (1000 UT) tablet Take 1 tablet by mouth Once per day. Active naloxone (Narcan) 4 mg/0.1 mL nasal sprayIndicatio ns:Chronic pain syndrome Administer 1 spray (4 mg) into affected nostril(s) if needed for opioid reversal. 2 each 2 06/28/20 24 Active ferrous gluconate (Fergon) 324 (38 Fe) MG tabletIndicati ons:Iron deficiency anemia, unspecified iron deficiency anemia type Take 1 tablet (324 mg) by mouth with breakfast. 30 tablet 01/18/20 25 026 Active albuterol 108 (90 Base) MCG/ACT inhaler INHALE 2 PUFFS BY MOUTH EVERY 4 HOURS IF NEEDED 36 g 04/04/20 25 Active metoprolol succinate XL (Toprol-XL) 25 MG 24 hr tablet Take 1 tablet (25 mg) by mouth Once per day. 90 tablet 04/04/20 25 Active DULoxetine (Cymbalta) [address] capsuleIndicat ions:Chronic pain syndrome Take 1 capsule (30 mg) by mouth 2 times daily. Do not crush or chew. 60 capsule 04/04/20 026 Active oxyCODONE-acet aminophen (Percocet) 10-325 MG tabletIndicati ons:Chronic pain syndrome Take 1 tablet by mouth every 6 (six) hours if needed for severe pain for up to 28 days. TAKE 1 TABLET BY MOUTH EVERY 6 HOURS IF NEEDED FOR SEVERE PAIN 112 tablet 05/06/20 25 025 Active ondansetron (Zofran) 4 MG tabletIndicati ons:Chronic pain syndrome TAKE 1 TABLET BY MOUTH EVERY 8 HOURS 20 tablet 05/06/20 25 Active morphine CR (MS Contin) 15 MG 12 hr tabletIndicati ons:Chronic pain syndrome Take 1 tablet (15 mg) by mouth 2 times daily for 28 days. Do not crush, chew, or split. 56 tablet 05/06/20 25 025 Active ALPRAZolam (Xanax) 0.5 MG tabletIndicati ons:Chronic pain syndrome TAKE 1 TABLET BY MOUTH EVERY 8 HOURS 84 tablet 05/13/20 25 Active ondansetron (Zofran) 4 MG tabletIndicati ons:Chronic pain syndrome TAKE 1 TABLET BY MOUTH EVERY 8 HOURS 20 tablet 02/08/20 25 025 Discontinued(Re order (will not trigger notification to Pharmacy)) ALPRAZolam (Xanax) 0.5 MG tabletIndicati ons:Chronic pain syndrome Take 1 tablet (0.5 mg) by mouth every 8 (eight) hours. 84 tablet 03/27/20 25 025 Discontinued morphine CR (MS Contin) 15 MG 12 hr tabletIndicati ons:Chronic pain syndrome Take 1 tablet (15 mg) by mouth 2 times daily for 28 days. Do not crush, chew, or split. 56 tablet 04/04/20 25 025 Discontinued(Re order (will not trigger notification to Pharmacy)) oxyCODONE-acet aminophen (Percocet) 10-325 MG tabletIndicati ons:Chronic pain syndrome Take 1 tablet by mouth every 6 (six) hours if needed for severe pain for up to 28 days. TAKE 1 TABLET BY MOUTH EVERY 6 HOURS IF NEEDED FOR SEVERE PAIN 112 tablet 04/04/20 25 025 Discontinued(Re order (will not trigger notification to Pharmacy)) Active Problems Problem Noted Date Diagnosed Date correction (current) use of opiate analgesic 11/16 Long-term current use of benzodiazepine 11/30/19 25 Acute pain of right lower extremity 09/05/2023 09/05/2023 Chronic ITP (idiopathic thrombocytopenia) 202209/05/2023 Left radial head fracture 09/05/20232022 Fracture of proximal end of left ulna 09/05/2023 09/05/2023 Dislocation of left radial head 09/05/2023 09/05/2023 Anemia 08/23/2022 Combined systolic and diastolic congestive heart failure 03/08/2021 Overview (03/28/2023): Cardiomyopathy with EF of 40-45%. Cardiac cath at [facility] 2021 and she did NOT have significant [...] an evaluation. 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 Migraine 04/04/2008 Skin tag 04/04/2008 Resolved Problems Problem Noted Date Diagnosed Date Resolved Date Angina pectoris 09/05/2023 09/05/202309/0509/05/2023 Ischemic cardiomyopathy 09/05/2023 09/05/202308/18 SOB (shortness of breath) 09/05/2023 09/05/2023 Peptic ulcer disease 03/01/2023 023 Mild asthma 10/20/2015 03/28/2023 Thrombocytopenia 05/20/2008 04/04/2025 Overview (03/28/2023): Abdominal ultrasound negative for splenomegaly or liver disease [place] [address] Likely ITP, follows at [facility] Heartburn 04/04/2008 03/28/2023 Overview (03/01/2023): H/O PUD Encounters Date Type Department Care Team Description 05/16/2025 Telephone [facility] [address] [phone] Irena Pacheco, SUNSHINE 05/13/2025 Telephone [facility] [address] [phone] Joseph Magana MD 05/12/2025 Refill [facility] [address] [place] [phone] Joseph Magana MD Chronic pain syndrome 05/07/2025 2:00 PM EDT Telemedicine [facility] [address] [place] [phone] Joseph Magana MD Atypical pneumonia (Primary Dx); Hypoxia 05/07/2025 Travel 05/06/2025 Refill [facility] [address] [place] [address] Joseph Magana MD Chronic pain syndrome; Chronic pain syndrome 05/06/2025 Telephone [facility] [address] [place] [address] Yojana Cole MA CHARTPREP 04/28/2025 Results Follow-Up [facility] [address] [phone] Joseph Magana MD CTA Chest PE Protocal 04/27/2025 Orders Only GENERIC EXTERNAL DATA DEPARTMENT Provider, Generic External Data 04/26/2025 Orders Only [facility] External Provider, [facility] 04/04/2025 11:00 AM EDT Office Visit [facility] [address] [place] [phone] NameJoseph MD Chronic pain syndrome (Primary Dx); Gastrointestinal hemorrhage, unspecified gastrointestinal hemorrhage type; Chronic ITP (idiopathic thrombocytopenia) ([facility]) 04/04/2025 Travel 04/03/2025 Telephone [facility] [address] [place] [phone] Joseph Magana MD Chart Prep 03/26/2025 Refill [facility] [address] [place] [address] Joseph Magana MD Chronic pain syndrome 03/07/2025 Refill [facility] [address] [place] [phone] Joseph Magana MD Chronic pain syndrome 03/04/[address] [address] Joseph Magana MD 03/04/2025 Orders Only [facility] [address] [place] [phone] Joseph Magana MD Chronic pain syndrome (Primary Dx) 02/21/2025 10:30 AM EDT Telemedicine [address] [phone] Kaitlynn Landrum RN correction (current) use of opiate analgesic 02/21/2025 Travel from Last 3 Months Immunizations Immunization Administration Dates Next Due Influenza Whole 07/04/2006 Influenza injectable quadriv alent IIV4 with preservative 08/17/2016 Influenza injectable quadrivalent preservative f ree 10/20/2015 Influenza, IIV3, injectable 06/21/2012, 1 Influenza, trivalent, adjuvanted 06/21/2012,1204/2011 Moderna Covid-19 Vaccine 12+ 11/01/2021,10/04/19 22 Pneumococcal [...] your housing situation today? I have isabela nancy 04/04/[address] you li [...] Sign Reading Time Taken Comments Blood Pressure 150/70 04/04/2025 11:01 AM EDT Pulse 83 04/04/2025 11:01 AM EDT Temperature 36.7 C (98.1 F) 04/04/2025 11:01 AM EDT Respiratory Rate 14 04/04/2025 11:01 AM EDT Oxygen Saturation 99% 04/04/2025 11:01 AM EDT Inhaled Oxygen Concentration - - Weight 77.1 kg (170 lb) 04/04/2025 11:01 AM EDT Height 160 cm (5' 3 ) 04/04/2025 11:01 AM EDT Body Mass Index 30.11 04/04/2025 11:01 AM EDT Plan of Treatment Upcoming Encounters Date Type Department Care Team (Late st Contact Info) Description 05/23/2025 10:30 AM EDT Telemedicine [facility] [address] [place] [address] Kaitlynn Landrum, RN Health Maintenance Due Date Last Done Comments Zoster Vaccines (1 of 2) 1994 Pneumococcal Vaccine: 50+ Years (2 of 2 - PCV) 02/10/2011 02/10/2010, 02/10/2010 RSV Patients and Patients Aged 60 years or older (1 - 1-dose 75+ series) 11/18/2019 DTaP/Tdap/Td Vaccines (1 - Tdap) 11/19/2019 11/18/2019 SDOH Screening 03/27/2024 03/27/2023 COVID-19 Vaccine (3 - season) 2024 11/01/2021, 10/04/2021 Influenza Vaccine (#1) 2025 6, 10/20/2015, 06/21/2012, Additional history exists Alcohol/Substance Use Screening 04/04/2026 04/04/2025 Depression Screening 04/04/2026 04/04/2025, 04/04/20 25 Tobacco Screening 04/04/2026 04/04/2025 HIB Vaccines Aged Out No longer eligi [...] patient's age to complete this topic Meningococcal B Vaccine Aged Out No l onger eligible based on patient's age to complete [...] Procedure Name Priority Date/Time Associated Diagnosis Comments CTA CHEST PE PROTOCAL Routine 04/27/2025 1:21 PM EDT VENOUS BLOOD GAS Routine 04/27/2025 11:2 7 AM EDT XR CHEST 1 VIEW Routine 04/27/2025 10:00 AM EDT DRUG MONITOR, PANEL 1, SCREEN, URINE Routine 04/27/2025 1:53 AM EDT URINALYSIS, COMPLETE, WITH REFLEX TO CULTURE Routine 04/27/2025 1:[address] HEAD WO CONTRAST Routine 04/26/2025 1 1:[address] CERVICAL SPINE WO CONTRAST Routine 04/26/2025 11:21 PM EDT XR KNEE 1-2 VIEWS RIGHT Routine 04/26/2025 11:07 PM EDT XR ELBOW 1-2 VIEWS LEFT Routine 04/26/2025 11:05 PM EDT from Last 3 Months Results * CTA Chest PE Protocal (04/27/2025 1:21 PM EDT) Anatomical Region Laterality Modality Body, Chest Computed Tomogra phy 04/27/2025 1:21 PM EDT Narrative 04/27/2025 1:22 PM EDT [address] [address] [address] Scan Report Signed Patient: Susan Chan MR#: [id number] 7 : 1945 Acct:[id number] Age/Sex: 79 / F ADM Date: 04/26/25 Loc: HO.ED Attending Dr: Ordering Physician: Han Montaño MD Date of Service: 04/27/25 Procedure(s): CT angio chest PE protocol Accession Number(s): [id number] cc: Han Montaño MD; Name,Joseph KIM Report Number: [id number]: Total DLP = 485.00 mGy-cm CLINICAL HISTORY: ? PE CT angiography chest with contrast. 3D Postprocessing. Comparison: CT - CT ANGIO CHEST PE PROTOCOL - 04/27/25 12:34 EDT Findings: The heart size is normal. RV/LV ratio is normal. Calcification of the coronary vasculature. The thoracic aorta is normal caliber. No pulmonary artery filling defects. Mild fusiform dilatation of the ascending thoracic aorta measuring 41 mm. Thyroid is within normal limits. Moderate apical predominant emphysema. Mild bibasilar atelectasis versus scarring. Mild diffuse ground-glass pulmonary opacity. Visualized portions of the upper abdomen demonstrate cholelithiasis well as mild left hydronephrosis. No acute fractures. IMPRESSION: 1. No pulmonary embolus. 2. Coronary artery disease. 3. Mild atypical pneumonia. 4. Mild aneurysmal dilatation of the ascending thoracic aorta. 5. Mild left hydronephrosis. 6. Cholelithiasis. This document has been electronically signed by: Da Pino MD on 04/27/2025 13:21:04 Dictated By: Da Pino MD Signed By: <Electronically signed by Da Pino MD in OV> 04/27/25 1321 DD/ 1321 TD/TT: 04/27/25 1321 Gas Scrubber Operator: Procedure Note Donotuseinterpreter, Image - 04/27/[address] [address] [address] Scan Report Signed Patient: Susan ChanMR#: [id number] 7 : 5Acct:[id number] Age/Sex: 79 / FADM Date: 04/26/25 Loc: HO.ED Attending Dr: Ordering Physician: Han Montaño MD Date of Service: 04/27/25 Procedure(s): CT angio chest PE protocol Accession Number(s): [id number] cc: Han Montaño MD; Name,Joseph Report Number: [id number]: Total DLP = 485.00 mGy-cm CLINICAL HISTORY: ? PE CT angiography chest with contrast. 3D Postprocessing. Comparison: CT - CT ANGIO CHEST PE PROTOCOL - 04/27/25 12:34 EDT Findings: The heart size is normal. RV/LV ratio is normal. Calcification of the coronary vasculature. The thoracic aorta is normal caliber. No pulmonary artery filling defects. Mild fusiform dilatation of the ascending thoracic aorta measuring 41 mm. Thyroid is within normal limits. Moderate apical predominant emphysema. Mild bibasilar atelectasis versus scarring. Mild diffuse ground-glass pulmonary opacity. Visualized portions of the upper abdomen demonstrate cholelithiasis well as mild left hydronephrosis. No acute fractures. IMPRESSION: 1. No pulmonary embolus. 2. Coronary artery disease. 3. Mild atypical pneumonia. 4. Mild aneurysmal dilatation of the ascending thoracic aorta. 5. Mild left hydronephrosis. 6. Cholelithiasis. This document has been electronically signed by: Da Pino MD on 04/27/2025 13:21:04 Dictated By: Da Pino MD Signed By: <Electronically signed by Da Pion MD in OV> 04/27/25 1321 DD/ 1321 TD/TT: 04/27/25 1321 Gas Scrubber Operator: us [facility] External Provider IMG CT PROCEDURES Edited Result - Final * (ABNORMAL) VENOUS BLOOD GAS (04/27/2025 11:27 AM EDT) VBG pH 7.32 7.32 - 7.43 [facility] Comment:METER #: [id number] additional_comment: Te hernandez VBG PCO2 69 mmHg [facility] Comment:METER #: [id number] additional_comment: Te hernandez VBG PO2 36 mmHg [facility] Comment:METER #: [id number] additional_comment: Te hernandez VBG Base Excess 7.8 mmol/L [facility] Comment:METER #: [id number] additional_comment: Te hernandez VBG HCO3 36(H) 22 - 26 mmol/L [facility] Comment:METER #: [id number] additional_comment: Te hernandez O2 Sat, Huang 46.0 % [facility] Comment:METER #: [id number] additional_comment: Te hernandez 04/27/2025 11:2 7 AM EDT 04/27/2025 11:31 AM EDT us Generic External Data Provider LAB BLOOD ORDERAB LES Final Result Performing Organization Address City/State/[facility] Co de Phone Number [facility] [address] [place] [address] [phone] * XR Chest 1 View (04/27/2025 10:00 AM EDT) Anatomical Region Laterality Modality Chest Radiographic Ewelina ging 04/27/2025 10:0 0 AM EDT Narrative 04/27/2025 10:02 AM EDT [place] [address] XRay Report Signed Patient: Susan Chan MR#: [id number] 7 : 1945 Acct:[id number] Age/Sex: 79 / F ADM Date: 04/26/25 Loc: HO.ED Attending Dr: Ordering Physician: Generic ED Physician Date of Service: 04/27/25 Procedure(s): XR chest 1V Accession Number(s): [id number] cc: Generic ED Physician; Name,Joseph KIM CLINICAL HISTORY: low saturations 1 view chest x-ray Comparison: CR/SR - XR CHEST 2 VIEWS - 11/05/24 13:51 EST CR/IA/SR - XR CHEST 1 VIEW - 06/12/24 14:59 EDT Findings: The lungs exhibit similar minimal interstitial change. Normal size heart. No acute fracture. IMPRESSION: Minimal chronic interstitial change. No acute process. This document has been electronically signed by: Sander Metzger MD on 04/27/2025 10:00:20 Dictated By: Sander Metzger MD Signed By: <Electronically signed by Sander Metzger MD in OV> 04/27/25 1001 DD/ 1000 TD/TT: 04/27/25 1000 Gas Scrubber Operator: Procedure Note Donotuseinterpreter, Image - 04/27/2025 [place] [address] XRay Report Signed Patient: Susan ChanMR#: [id number] 7 : 5Acct:[id number] Age/Sex: 79 / FADM Date: 04/26/25 Loc: .ED Attending Dr: Ordering Physician: Generic ED Physician Date of Service: 04/27/25 Procedure(s): XR chest 1V Accession Number(s): [id number] cc: Generic ED Physician; Name,Joseph KIM CLINICAL HISTORY: low saturations 1 view chest x-ray Comparison: CR/SR - XR CHEST 2 VIEWS - 11/05/24 13:51 EST CR/IA/SR - XR CHEST 1 VIEW - 06/12/24 14:59 EDT Findings: The lungs exhibit similar minimal interstitial change. Normal size heart. No acute fracture. IMPRESSION: Minimal chronic interstitial change. No acute process. This document has been electronically signed by: Sander Metzger MD on 04/27/2025 10:00:20 Dictated By: Sander Metzger MD Signed By: <Electronically signed by Sander Metzger MD in OV> 04/27/25 1001 DD/ 1000 TD/TT: 04/27/25 1000 Gas Scrubber Operator: [facility] External Provider IMG XR PROCEDURES Edited Result - Final * (ABNORMAL) Urinalysis, Complete, with Reflex to Culture (04/27/2025 1:53 AM EDT) Color Urine Yellow [facility] Appearance Urine Clear [facility] PH 6.5 5.0 - 9.0 [facility] Glucose Urine UA Negative Negative mg/dL [facility] Urine Blood Small (1+)(A) Negative [facility] Specific [place] - Urine 1.025 1.005 - 1.025 [facility] Urine Protein Trace Neg-Trace mg/dL [facility] Urine Ketones Negative Negative mg/dL [facility] Nitrite Urine Negative Negative [facility] Leukocyte Esterase Urine Negative Negative [facility] RBC Urine 11-20(A) 0 - 2 /HPF [facility] Urine WBC 0-5 0 - 5 /HPF [facility] Urine Squamous Epithelial Cell 0-2 0 - 2 /HPF [facility] Urine Bacteria None Seen None Seen [facility] Hyaline Casts, Urine 0-2 0 - 2 /LPF [facility] 04/27/2025 1:53 AM EDT 04/27/2025 1:57 AM EDT Narrative [facility] - 04/27/2025 2:27 AM EDT [id number], Catheterized us Generic External Data Provider LAB URINE ORDERAB LES Final Result [facility] [address] [place] [phone] * (ABNORMAL) Drug Monitoring, Panel 1, Screen, Urine (04/27/2025 1:53 AM EDT) Opiate Screen Urine POSITIVE(A) Not Detect [facility] Comment:Opiate cut-off is 30 0 ng/mL.Positive results are unconfirmed and should not be used fornon-medical purposes. Barbiturates, Urine Not Detected Not Detect [facility] Comment:Barbiturate cut-off is 200 ng/mL.Positive results are unconfirmed and should not be used fornon-medical purposes. Phencyclidine Screen Urine Not Detected Not Detect [facility] Comment:Phencyclidine cut-of f is 25 ng/mL.Positive results are unconfirmed and should not be used fornon-medical purposes. Amphetamine Screen Urine Not Detected Not Detect [facility] Comment:Amphetamine cut-off is 1000 ng/mL.Positive results are unconfirmed and should not be used fornon-medical purposes. Benzodiazepines Screen Urine Not Detected Not Detect [facility] Comment:Benzodiazepine cut-o ff is 200 ng/mL.Positive results are unconfirmed and should not be used fornon-medical purposes. Cocaine Screen Urine Not Detected Not Detect [facility] Comment:Cocaine cut-off is 3 00 ng/mL.Positive results are unconfirmed and should not be used fornon-medical purposes. Cannabinoid Screen Urine Not Detected Not Detect [facility] Comment:Cannabinoid cut-off is 50 ng/mL.Positive results are unconfirmed and should not be used fornon-medical purposes. Methadone Screen, Urine Not Detected Not Detect ng/mL [facility] Comment:Methadone cut-off is 300 ng/mL.Positive results are unconfirmed and should not be used fornon-medical purposes. FENTANYL URINE Not Detected Not Detect [facility] Comment:Fentanyl cut-off is 1 ng/mL.Positive results are unconfirmed and should not be used fornon-medical purposes. Oxycodone Urine Screen Positive(A) Not Detect ng/mL [facility] Comment:Oxycodone cut-off is 100 ng/mL.Positive results are unconfirmed and should not be used fornon-medical purposes. Buprenorphine Screen Not Detected Not Detect ng/mL [facility] Comment:Buprenorphine cut-of f is 5 ng/mL.Positive results are unconfirmed and should not be used fornon-medical purposes. 04/27/2025 1:53 AM EDT 04/27/2025 1:58 AM EDT us Generic External Data Provider LAB URINE ORDERAB LES Final Result [facility] [address] [place] [phone] * CT Head w/o Contrast (04/26/2025 11:22 PM EDT) Anatomical Region Laterality Modality Head, Neck Computed Tomogra phy 04/26/2025 11:2 2 PM EDT Narrative 04/26/2025 11:24 PM EDT [address] [address] [address] Scan Report Signed Patient: Susan Chan MR#: [id number] 7 : 1945 Acct:[id number] Age/Sex: 79 / F ADM Date: 04/26/25 Loc: HO.ED Attending Dr: Ordering Physician: Anne Aldridge MD Date of Service: 04/26/25 Procedure(s): CT head/brain wo IV con Accession Number(s): [id number] cc: Izzy,Joseph KIM; Anne Alrdidge MD Report Number: [id number]: Total DLP = 1265.00 mGy-cm CLINICAL HISTORY: fall, hx thrombocytopenia CT head without contrast Comparison: None provided Findings: No intracranial mass, midline shift, hydrocephalus, or acute hemorrhage. Moderate chronic ischemic white matter disease with volume loss. No acute process in sinuses or mastoids. No acute bony abnormality. Impression: No acute intracranial process This document has been electronically signed by: Carlos Esquivel MD on 04/26/2025 23:22:46 Dictated By: Carlos Esquivel MD Signed By: <Electronically signed by Carlos Esquivel MD in OV> 04/26/252322 DD/ 21 TD/TT: 04/26/252321 Gas Scrubber Operator: Procedure Note Donotuseinterpreter, Image - 04/26/[address] [address] [address] Scan Report Signed Patient: Susan ChanMR#: [id number] 7 : 5Acct:[id number] Age/Sex: 79 / FADM Date: 04/26/25 Loc: .ED Attending Dr: Ordering Physician: Anne Aldirdge MD Date of Service: 04/26/25 Procedure(s): CT head/brain wo IV con Accession Number(s): [id number] cc: Izzy,Joseph KIM; Anne Aldridge MD Report Number: [id number]: Total DLP = 1265.00 mGy-cm CLINICAL HISTORY: fall, hx thrombocytopenia CT head without contrast Comparison: None provided Findings: No intracranial mass, midline shift, hydrocephalus, or acute hemorrhage. Moderate chronic ischemic white matter disease with volume loss. No acute process in sinuses or mastoids. No acute bony abnormality. Impression: No acute intracranial process This document has been electronically signed by: Carlos Esquivel MD on 04/26/2025 23:22:46 Dictated By: Carlos Esquivel MD Signed By: <Electronically signed by Carlos Esquivel MD in OV> 04/26/252322 DD/ 21 TD/TT: 04/26/252321 Gas Scrubber Operator: [facility] External Provider IMG CT PROCEDURES Edited Result - Final * CT Cervical Spine w/o Contrast (04/26/2025 11:21 PM EDT) Anatomical Region Laterality Modality Spine, C-spine Computed Tomogra phy 04/26/2025 11:2 1 PM EDT Narrative 04/26/2025 11:23 PM EDT [place] [address] CT Scan Report Signed Patient: Susan Chan MR#: [id number] 7 : 1945 Acct:[id number] Age/Sex: 79 / F ADM Date: 04/26/25 Loc: HO.ED Attending Dr: Ordering Physician: Anne Aldridge MD Date of Service: 04/26/25 Procedure(s): CT cervical spine wo IV con Accession Number(s): [id number] cc: Joseph Magana MD; Anne Aldridge MD Report Number: [id number]: Total DLP = 283.00 mGy-cm CLINICAL HISTORY: fall, mild pain posterior neck CT cervical spine without contrast Comparison: None provided Findings: Motion artifact considerably limits assessment. Mid cervical spine not well visualized. No definite acute fracture is identified. Fracture could go undetected on this study. Consider repeat if there is persistent concern. Severe degenerative change noted. Multilevel anterolisthesis, likely chronic. Impression: Motion artifact limits assessment Consider repeat if there is persistent concern No definite acute abnormality This document has been electronically signed by: Carlos Esquivel MD on 04/26/2025 23:21:57 Dictated By: Carlos Esquivel MD Signed By: <Electronically signed by Carols Esquivel MD in OV> 04/26/252321 DD/ 20 TD/TT: 04/26/252320 Gas Scrubber Operator: Procedure Note Donotgeriinterpreter, Image - 04/26/[address] [place] [address] [address] Scan Report Signed Patient: Susan ChanMR#: [id number] 7 : 5Acct:[id number] Age/Sex: 79 / FADM Date: 04/26/25 Loc: HO.ED Attending Dr: Ordering Physician: Anne Aldridge MD Date of Service: 04/26/25 Procedure(s): CT cervical spine wo IV con Accession Number(s): [id number] cc: Joseph Magana MD; Anne Aldridge MD Report Number: [id number]: Total DLP = 283.00 mGy-cm CLINICAL HISTORY: fall, mild pain posterior neck CT cervical spine without contrast Comparison: None provided Findings: Motion artifact considerably limits assessment. Mid cervical spine not well visualized. No definite acute fracture is identified. Fracture could go undetected on this study. Consider repeat if there is persistent concern. Severe degenerative change noted. Multilevel anterolisthesis, likely chronic. Impression: Motion artifact limits assessment Consider repeat if there is persistent concern No definite acute abnormality This document has been electronically signed by: Carlos Esquivel MD on 04/26/2025 23:21:57 Dictated By: Carlos Esquivel MD Signed By: <Electronically signed by Carlos Esquivel MD in OV> 04/26/252321 DD/ 20 TD/TT: 04/26/252320 Gas Scrubber Operator: [facility] External Provider IMG CT PROCEDURES Edited Result - Final * XR Knee 1-2 Views Right (04/26/2025 11:07 PM EDT) Anatomical Region Laterality Modality Lower Extremities, Knee Right Radiogra phic Imaging 04/26/2025 11:0 7 PM EDT Narrative 04/26/2025 11:08 PM EDT [address] [address] XRay Report Signed Patient: Susan Chan MR#: [id number] 7 : 1945 Acct:[id number] Age/Sex: 79 / F ADM Date: 04/26/25 Loc: HO.ED Attending Dr: Ordering Physician: Anne Aldridge MD Date of Service: 04/26/25 Procedure(s): XR knee RT 2V Accession Number(s): [id number] cc: Joseph Magnaa MD; Anne Aldridge MD CLINICAL HISTORY: fall, pain Right knee four views Comparison: None provided Findings: No acute fracture or dislocation noted. No significant joint effusion identified. Prosthesis demonstrates normal alignment. There is no evidence for component loosening. Impression: No acute bony abnormality This document has been electronically signed by: Carlos Esquivel MD on 04/26/2025 23:07:01 Dictated By: Carlos Esquivel MD Signed By: <Electronically signed by Carlos Esquivel MD in OV> 04/26/252306 DD/ 06 TD/TT: 04/26/252306 Gas Scrubber Operator: Procedure Note Donotuseinterpreter, Image - 04/26/[address] [address] XRay Report Signed Patient: Susan ChanMR#: [id number] 7 : 5Acct:[id number] Age/Sex: 79 / FADM Date: 04/26/25 Loc: HO.ED Attending Dr: Ordering Physician: Anne Aldridge MD Date of Service: 04/26/25 Procedure(s): XR knee RT 2V Accession Number(s): [id number] cc: Joseph Magana MD; Anne Aldridge MD CLINICAL HISTORY: fall, pain Right knee four views Comparison: None provided Findings: No acute fracture or dislocation noted. No significant joint effusion identified. Prosthesis demonstrates normal alignment. There is no evidence for component loosening. Impression: No acute bony abnormality This document has been electronically signed by: Carlos Esquivel MD on 04/26/2025 23:07:01 Dictated By: Carlos Esquivel MD Signed By: <Electronically signed by Carlos Esquivel MD in OV> 04/26/252306 DD/ 06 TD/TT: 04/26/252306 Gas Scrubber Operator: us [facility] External Provider IMG XR PROCEDURES Edited Result - Final * XR Elbow 1-2 Views Left (04/26/2025 11:05 PM EDT) Anatomical Region Laterality Modality Upper Extremities, Elbow Left Radiogr aphic Imaging 04/26/2025 11:0 5 PM EDT Narrative 04/26/2025 11:07 PM EDT [address] [address] XRay Report Signed Patient: Susan Chan MR#: [id number] 7 : 1945 Acct:[id number] Age/Sex: 79 / F ADM Date: 04/26/25 Loc: HO.ED Attending Dr: Ordering Physician: Anne Aldridge MD Date of Service: 04/26/25 Procedure(s): XR elbow LT 2V Accession Number(s): [id number] cc: Joseph Magana MD; Anne Aldridge MD CLINICAL HISTORY: fall, pain Left elbow three views Comparison: 12/15/2022 Findings: No acute fracture or dislocation noted. No significant joint effusion identified. Prior olecranon fracture fixation hardware. No evidence for loosening. Impression: No acute bony abnormality This document has been electronically signed by: Carlos Esquivel MD on 04/26/2025 23:05:38 Dictated By: Carlos Esquivel MD Signed By: <Electronically signed by Carlos Esquivel MD in OV> 04/26/252305 DD/ 04 TD/TT: 04/26/252304 Gas Scrubber Operator: Procedure Note Donotuseinterpreter, Image - 04/26/[address] [address] XRay Report Signed Patient: Susan ChanMR#: [id number] 7 : 5Acct:[id number] Age/Sex: 79 / FADM Date: 04/26/25 Loc: HO.ED Attending Dr: Ordering Physician: Anne Aldridge MD Date of Service: 04/26/25 Procedure(s): XR elbow LT 2V Accession Number(s): [id number] cc: Joseph Magana MD; Anne Aldridge MD CLINICAL HISTORY: fall, pain Left elbow three views Comparison: 12/15/2022 Findings: No acute fracture or dislocation noted. No significant joint effusion identified. Prior olecranon fracture fixation hardware. No evidence for loosening. Impression: No acute bony abnormality This document has been electronically signed by: Carlos Esquivel MD on 04/26/2025 23:05:38 Dictated By: Carlos Esquivel MD Signed By: <Electronically signed by Carlos Esquivel MD in OV> 04/26/252305 DD/ 04 TD/TT: 04/26/252304 Gas Scrubber Operator: [facility] External Provider IMG XR PROCEDURES Edited Result - Final from Last 3 Mon[address] Insurance [place]IC[place] [address] [place] [id number] [employer] Care Teams Engine Lathe Set Up Operator Tool Relationship Specialty Start Date End Date Name, MD Joseph [address] [place] [address] PCP - General Family Medicine 01/21/22
--- OUTSIDE RECORDS SUMMARY | 2025-05-18 02:54 | XMS_ITS | Encounter Summary ---
Author Organization [employer] Address [address] [facility] 7t [place] [address] Care Team Providers Care Heel Painter Name Role Phone Name, Joseph KIM Primary Care Provider [phone] Encounter Details Date Type Department Care Team (Late st Contact Info) Description 07/19/2024 Orders Only [facility] [address] [place], [place] [phone] Name, MD Joseph [address], [place] [phone] Iron deficiency anemia, unspecified iron deficiency anemia [...] Info) Description 05/23/2025 10:30 AM EDT Telemedicine [facility] [address] [place] [phone] Kaitlynn Landrum RN documented as of this encounter Procedures Procedure Name Priority Date/Time Associated Diagnosis Comments CBC WITH AUTO DIFFERENTIAL Routine 07/23/2024 2:15 PM EST Iron deficiency anemia, unspecified iron deficiency anemia type documented in this encounter Results * (ABNORMAL) CBC auto differential (07/23/2024 2:15 PM EST) White Blood Count 9.9 4.8 - 10.8 X10*3/uL [facility] Red Blood Count 3.50(L) 4.20 - 5.50 X10*6/uL [facility] Hemoglobin 9.8(L) 12.0 - 16.0 g/dl [facility] Hematocrit 32.9(L) 37.0 - 47.0 % [facility] Mean Corpuscular Volume 94.0 80.0 - 98.0 fL [facility] Mean Corpuscular Hemoglobin 28.0 27.0 - 33.0 pg [facility] Mean Corpuscular HGB Conc 29.8(L) 31.0 - 35.0 g/dl [facility] Red Cell Distribution Width 19.3(H) 11.0 - 16.0 % [facility] Platelet Count 88(L) 160 - 400 X10*3/uL [facility] Comment:Confirmed by smear. Mean Platelet Volume TNP 9.4 - 12.3 fL [facility] Neutrophils Percent Auto 76.1(H) 45 - 73 % [facility] Imm Gran Pct Auto 0.3 0.0 - 0.4 % [facility] Lymphocytes Percent Auto 12.0(L) 20 - 40 % [facility] Monocytes Percent Auto 9.2 2 - 11 % [facility] Eosinophils Percent Auto 1.8 0 - 4 % [facility] Basophils Percent Auto 0.6 0 - 2 % [facility] NRBC Pct Auto 0.0 0.0 - 0.2 /100WBC [facility] Neutrophils Absolute Auto 7.6 2.0 - 8.3 x10*3/uL [facility] Imm Gran Abs Auto 0.03 0.00 - 0.03 X10*3/uL [facility] Lymphocytes Absolute Auto 1.2 1.2 - 4.9 X10*3/uL [facility] Monocytes Absolute Auto 0.9 0.1 - 1.2 X10*3/uL [facility] Eosinophils Absolute Auto 0.2 0.0 - 0.4 X10*3/uL [facility] Basophils Absolute Auto 0.1 0.0 - 0.2 X10*3/uL [facility] NRBC Abs Auto 0.000 0.0 - 0.012 X10*3/uL [facility] Blood Venous blood specimen / Unknown 07/23/2024 2:15 PM EST 07/23/2024 4:10 PM EST us Joseph Magana MD LAB BLOOD ORDERABLES Edited Resu lt - Final [facility] [address] [place], [place] [phone] documented in this encounter Visit Diagnoses Diagnosis Iron deficiency anemia, unspecified iron deficiency anemia type documented in this encounter Additional Health Concerns Assessment Noted Time PHQ-9 Depression Total Score: 0 01/30/20 24 11:07 AM EDT documented as of this encounter Care Teams Heel Painter Relationship Specialty Start Date End Date Name, MD Joseph [address] [place] [address] PCP - General Family Medicine 01/21/22 documented as of this encounter
--- OUTSIDE RECORDS SUMMARY | 2025-05-18 02:54 | XMS_ITS | Clinical Summary ---
Author Organization [facility] Address [address] [facility] [address] [place] [address] Phone Care Team Providers Care Exec. Creative Director Name Role Phone Kishore Enamorado MD Primary Care Provider [phone] Allergies Active Allergy Reactions Criticality Noted Date Comments Cetylpyridinium-Benzocaine 8 Penicillin V Potassium Hives 04/04/2008 Sulfacetamide Sodium GI Upset 04/04/2008 Medications albuterol 90 mcg/actuation inhaler Inhale 2 puffs into the lungs. 03/31/2015 Active ALPRAZolam (XANAX) 0.5 MG tablet Take 0.5 mg by mouth. 10/05/2015 Active VITAMIN B COMPLEX (B COMPLEX ORAL) qd Active biotin (CYTO B7) 5 mg/mL Liqd oral suspension Active cimetidine (TAGAMET) 400 MG tablet Take 400 mg by mouth. 01/07/2015 Active fluticasone propionate (FLONASE) 50 mcg/actuation nasal spray 1 spray in each nostril Active VITAMIN A ORAL Activ e cholecalciferol (VITAMIN D3) 1,000 unit tablet qd Active HYDROcodone-dolores taminophen (NORCO) 7.5-325 mg per tablet TK 1 T PO Q 8 H PRN P 0 08/16/2017 Active diclofenac sodium (VOLTAREN) 75 MG EC tablet Take 1 tablet (75 mg total) by mouth 2 (two) times a day. 60 tablet 2 04/08/2020 Active buPROPion (WELLBUTRIN XL) 150 MG ER 24 hr tablet Take 150 mg by mouth daily. Active furosemide (LASIX) 40 MG tablet Take 40 mg by mouth daily. 02/10/2021 Active metoprolol succinate (TOPROL-XL) 25 MG 24 hr tablet Take 12.5 mg by mouth daily. 02/10/2021 Active chlorhexidine (PERIDEX) 0.12 % solution USE TWICE DAILY DIRECTED ON THE BOTTLE FOR 2 WEEKS 01/26/2021 Active Active Problems Problem Noted Date Diagnosed Date Aortic valve disorder 03/08/2021 Assessment & Plan (03/08/2021 1:58 PM EDT): She had at least moderate aortic regurgitation I am ordering an echo to evaluate this. 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 I am going to send her to Dr. Briones for an evaluation. Since she lives closer to [place] more than likely I will follow-up with her there Right hip pain 04/07/2020 Right knee pain 12/01/2017 Assessment & Plan (03/08/2021 1:58 PM EDT): Stable after replaced History of total right knee replacement 12/02/19 Family History Relation Status Comments Father Alive Mother Social History Tobacco Use Types Packs/Day Years Used Date Smoking Tobacco: Former Cigarettes Q uit: 2002 Smokeless Tobacco: Never Alcohol Use Standard Drinks/Week Comments Yes 1 (1 standard drink = 0.6 oz pur e alcohol) rarely Education Answer Date Recorded Are you interested in more education? Not on lea e 01/13/2023 Are you concerned about learning? Not on file 01/13/2023 No 01/13/2023 No 01/13/2023 Digital Access Answer Date Recorded No 02/11/2023 No 02/11/2023 Reliable internet access at home? Not on file 02/11/2023 Device with a working camera? Not on file Comments Unknown Sex and Gender Information Value Date Recorded Sex Assigned at Not on file Legal Sex Female 10:09 PM EDT Gender Identity Not on file Sexual Orientation Not on file Last Filed Vital Signs Vital Sign Reading Time Taken Comments Blood Pressure 152/76 03/08/2021 1:47 PM EDT Pulse 97 03/08/2021 1:47 PM EDT Temperature - - Respiratory Rate - - Oxygen Saturation 96% 03/08/2021 1:47 PM EDT Inhaled Oxygen Concentration - - Weight 78.5 kg (173 lb) 03/08/2021 1:47 PM EDT Height 160 cm (5' 2.99 ) 03/08/2021 1:47 PM EDT Body Mass Index 30.66 03/08/2021 1:47 PM EDT Plan of Treatment Health Maintenance Due Date Last Done Comments LIPID PANEL 1945 DEPRESSION SCREENING 1956 SMOKING Hx and SMOKELESS TOBACCO SCREENING 1957 ZOSTER VACCINES (1 of 2) 1994 OSTEOPOROSIS SCREENING INITIAL (ONE-TIME) 2009 PNEUMOCOCCAL VACCINES (50+ years) (2 of 2 - PCV) 02/10/2011 02/10/2010 RSV VACCINE (1 - 1-dose 75+ series) 11/18/2019 COVID-19 VACCINE (2 - season) 2024 10/04/2021 INFLUENZA VACCINE (#1) 2025 6, 10/20/2015, 06/21/2012, Additional history exists Adult Td,Tdap Booster 2029 11/18/2019 HEPATITIS A VACCINES Aged Out No long er eligible based on patient's age to complete this topic HIB VACCINES Aged Out No longer eligi ble based on patient's age to complete this topic MENINGOCOCCAL VACCINES (ACWY) Aged Out No longer eligible based on patient's age to complete this topic MENINGOCOCCAL VACCINES (B) Aged Out N o longer eligible based on patient's age to complete this topic Medical Devices Not on file Insurance [facility] HE[facility] PLAN HEALTH PLAN PLAN HEALTH PLAN PLAN PLAN HEALTH [place] [address] PLAN Care Teams Exec. Creative Director Relationship Specialty Start Date End Date Kishore Enamorado MD [address] [place] [address] [address] Amanda ROXANN [phone] [email or web address] PCP - General Family Medicine 04/16/19 Additional Source Comments The information contained in this document represents components of the legal health record. It is not the complete legal health record.[facility]
--- OUTSIDE RECORDS SUMMARY | 2025-05-18 02:54 | XMS_ITS | Encounter Summary ---
Author Organization [employer] Address [address] [facility] 7t [place] [address] Care Team Providers Care Environmental Air Specialist Name Role Phone Name, Joseph KIM Primary Care Provider [phone] Encounter Details Date Type Department Care Team (Late st Contact Info) Description 07/05/2024 Orders Only [facility] [address] [place], [place] [phone] Name, MD Joseph [address] [place], [place] [phone] Iron deficiency anemia, unspecified iron deficiency anemia [...] Info) Description 05/23/2025 10:30 AM EDT Telemedicine [facility] [address] [place] [address] Kaitlynn Landrum RN documented as of this encounter Visit Diagnoses Diagnosis Iron deficiency anemia, unspecified iron deficiency anemia type documented in this encounter Additional Health Concerns Assessment Noted Time PHQ-9 Depression Total Score: 0 01/30/20 24 11:07 AM EDT documented as of this encounter Care Teams Environmental Air Specialist Relationship Specialty Start Date End Date Name, MD Joseph [address] [place] [address] PCP - General Family Medicine 01/21/22 documented as of this encounter
--- OUTSIDE RECORDS SUMMARY | 2025-05-18 02:54 | XMS_ITS | Encounter Summary ---
Author Organization [employer] Address [address] [facility] 7t [place] [address] Care Team Providers Care Assistant Statistician Name Role Phone Name, Joseph KIM Primary Care Provider Reason for Visit * Reason Onset Date Comments Med Refill 08/28/2023 Encounter Details Date Type Department Care Team ([facility] st Contact Info) Description 08/28/2023 Telephone [facility] [address] [place], [place] [phone] Name, MD Joseph [address] [place], [place] [phone] Med Refill Social History Tobacco Use Types Packs/Day Years Used Date Smoking Tobacco: Former Cigarettes Q uit: 2000 Smokeless Tobacco: Never Alcohol Use Standard Drinks/Week Comments Not Currently 0 (1 standard drink = 0.6 oz pur e alcohol) Depression Answer Date Recorded Patient Health Questionnaire-9 Score 4 09/22/2022 Housing Stability Answer Date Recorded What is your housing situation today? I have isabelabernard cruz 07/05/[address] you [...] t he electric, gas, oil or water [employer] threatened to shut off services in your [...] Base) MCG/ACT inhaler to be sent to [facility] [place] [address] Reuben Forbes documented in this encounter Plan of Treatment Upcoming Encounters Date Type Department Care Team (Late st Contact Info) Description 05/23/2025 10:30 AM EDT Telemedicine [facility] MEDICINE [address] [place] [address] Kaitlynn Landrum, RN documented as of this encounter Visit Diagnoses Not on filedocumented in this encounter Additional Health Concerns Assessment Noted Time PHQ-9 Depression Total Score: 4 09/22/19 11:14 AM EST documented as of this encounter Care Teams Assistant Statistician Relationship Specialty Start Date End Date Name, MD Joseph [address] [place] [address] PCP - General Family Medicine 01/21/22 documented as of this encounter
--- OUTSIDE RECORDS SUMMARY | 2025-05-18 02:54 | XMS_ITS | Encounter Summary ---
Author Organization [employer] Address [address] [facility] 7t [place] [address] Care Team Providers Care Naval Aircrewman Mechanical Name Role Phone Name, Joseph KIM Primary Care Provider [phone] Reason for Visit * Reason Onset Date Comments Med Refill 07/28/2023 Encounter Details Date Type Department Care Team ([facility] st Contact Info) Description 07/28/2023 Telephone [facility] [address] [place], [place] [phone] Name, MD Joseph [address] [place], [place] [phone] Med Refill Social History Tobacco Use Types [...] t he electric, gas, oil or water [employer] threatened to shut off services in your [...] from patient requesting medication refill for HYDROcodone-acetaminophen ([place]) 7.5-325 MG tablet. documented in this encounter Plan of Treatment Upcoming Encounters Date Type Department Care Team (Late st Contact Info) Description 05/23/2025 10:30 AM EDT Telemedicine [facility] [address] [place] [address] Kaitlynn Landrum, [employer] documented as of this encounter Visit Diagnoses Not on filedocumented in this encounter Additional Health Concerns Assessment Noted Time PHQ-9 Depression Total Score: 4 09/22/19 23 11:14 AM EST documented as of this encounter Care Teams Naval Aircrewman Mechanical Relationship Specialty Start Date End Date Name, MD Joseph [address] [place] [address] PCP - General Family Medicine 01/21/22 documented as of this encounter
--- OUTSIDE RECORDS SUMMARY | 2025-05-18 02:54 | XMS_ITS | Encounter Summary ---
Author Organization [employer] Address [address] [facility] 7t [place] [address] Care Team Providers Care Sr. Unix System Administrator Name Role Phone Name, Joseph KIM Primary Care Provider [phone] Encounter Details Date Type Department Care Team (Late st Contact Info) Description 08/30/2024 Orders Only [facility] [address] [place], [place] [phone] Name, MD Joseph [address] [place], [place] [phone] Iron deficiency anemia, unspecified iron deficiency anemia [...] Info) Description 05/23/2025 10:30 AM EDT Telemedicine [facility] [address] [place] [address] Kaitlynn Landrum RN documented as of this encounter Visit Diagnoses Diagnosis Iron deficiency anemia, unspecified iron deficiency anemia type documented in this encounter Additional Health Concerns Assessment Noted Time PHQ-9 Depression Total Score: 0 01/30/20 24 11:07 AM EDT documented as of this encounter Care Teams Sr. Unix System Administrator Relationship Specialty Start Date End Date Name, MD Joseph [address] [place] [address] PCP - General Family Medicine 01/21/22 documented as of this encounter
--- OUTSIDE RECORDS SUMMARY | 2025-05-18 02:54 | XMS_ITS | Encounter Summary ---
Author Organization [employer] Address [address] [facility] 7t [place] [address] Care Team Providers Care Engraving Supervisor Name Role Phone Name, Joseph KIM Primary Care Provider [phone] Reason for Visit * Reason Onset Date Comments Med Refill 10/08/2024 Encounter Details Date Type Department Care Team ([facility] st Contact Info) Description 10/08/2024 Telephone [facility] MED[facility]INE [address] [place], [place] [phone] Name, MD Joseph [address] [place], [place] [phone] Med Refill Social History Tobacco Use Types [...] Fe) MG tablet To be sent to: [facility] [place] [address] Reuben Forbes documented in this encounter Plan of Treatment Upcoming Encounters Date Type Department Care Team (Late st Contact Info) Description 05/23/2025 10:30 AM EDT Telemedicine [facility] MED[facility]INE [address] [place] [address] Kaitlynn Landrum, SUNSHINE documented as of this encounter Visit Diagnoses Not on filedocumented in this encounter Additional Health Concerns Assessment Noted Time PHQ-9 Depression Total Score: 0 01/30/20 24 11:07 AM EDT documented as of this encounter Care Teams Engraving Supervisor Relationship Specialty Start Date End Date Name, MD Joseph [address] [place] [address] PCP - General Family Medicine 01/21/22 documented as of this encounter
--- OUTSIDE RECORDS SUMMARY | 2025-05-18 02:54 | XMS_ITS | Encounter Summary ---
Author Organization [employer] Address [address] [facility] 7t [place] [address] Care Team Providers Care Brownell Operator Name Role Phone Name, Joseph KIM Primary Care Provider [phone] Encounter Details Date Type Department Care Team (Late st Contact Info) Description 07/26/2024 Orders Only [facility] MED[facility]INE [address] [place], [place] [phone] Name, MD Joseph [address] [place], [place] [phone] Iron deficiency anemia, unspecified iron deficiency anemia [...] Info) Description 05/23/2025 10:30 AM EDT Telemedicine [facility] [address] [place] [address] Kaitlynn Landrum RN documented as of this encounter Visit Diagnoses Diagnosis Iron deficiency anemia, unspecified iron deficiency anemia type documented in this encounter Additional Health Concerns Assessment Noted Time PHQ-9 Depression Total Score: 0 01/30/20 24 11:07 AM EDT documented as of this encounter Care Teams Brownell Operator Relationship Specialty Start Date End Date Name, MD Joseph [address] [place] [address] PCP - General Family Medicine 01/21/22 documented as of this encounter
--- OUTSIDE RECORDS SUMMARY | 2025-05-18 02:54 | XMS_ITS | Encounter Summary ---
Author Organization [employer] Address [address] [facility] 7t [place] [address] Care Team Providers Care Secondary English Teacher Name Role Phone Name, Joseph KIM Primary Care Provider [phone] Reason for Visit * Reason Onset Date Comments Triage 12/28/2022 Encounter Details Date Type Department Care Team ([facility] st Contact Info) Description 12/28/2022 Telephone [facility] MEDICINE [address] [place], [place] [phone] Name, MD Joseph [address] [place] [address] Triage Social History Tobacco Use Types Packs/Day [...] accepted this outcome Please contact pt at [phone] documented in this encounter Plan of Treatment Upcoming Encounters Date Type Department Care Team (Late st Contact Info) Description 05/23/2025 10:30 AM EDT Telemedicine [facility] MEDICINE [address] [place] [address] Kaitlynn Landrum RN documented as of this encounter Visit Diagnoses Not on filedocumented in this encounter Additional Health Concerns Assessment Noted Time PHQ-9 Depression Total Score: 4 09/22/19 23 11:14 AM EST documented as of this encounter Care Teams Secondary English Teacher Relationship Specialty Start Date End Date Name, MD Joseph [address] [place] [address] PCP - General Family Medicine 01/21/22 documented as of this encounter
--- OUTSIDE RECORDS SUMMARY | 2025-05-18 02:54 | XMS_ITS | Encounter Summary ---
Author Organization [employer] Address [address] [facility] 7t [place] [address] Care Team Providers Care Radio Repairman Name Role Phone Name, Joseph KIM Primary Care Provider Encounter Details Date Type Department Care Team (Late st Contact Info) Description 07/12/2024 Orders Only [facility] MEDICINE [address] [place], [place] [phone] Name, MD Joseph [address] [place], [place] [phone] Iron deficiency anemia, unspecified iron deficiency anemia [...] Info) Description 05/23/2025 10:30 AM EDT Telemedicine [facility] MEDICINE [address] [place] [address] Kaitlynn Landrum RN documented as of this encounter Visit Diagnoses Diagnosis Iron deficiency anemia, unspecified iron deficiency anemia type documented in this encounter Additional Health Concerns Assessment Noted Time PHQ-9 Depression Total Score: 0 01/30/20 24 11:07 AM EDT documented as of this encounter Care Teams Radio Repairman Relationship Specialty Start Date End Date Name, MD Joseph [address] [place] [address] PCP - General Family Medicine 01/21/22 documented as of this encounter
--- OUTSIDE RECORDS SUMMARY | 2025-05-18 02:54 | XMS_ITS | Encounter Summary ---
Author Organization [employer] Address [address] [facility] [address]t [place] [address] Care Team Providers Care Hose Seamer Name Role Phone Name, Joseph KIM Primary Care Provider [phone] Reason for Visit * Reason Onset Date Comments Nurse Triage 09/17/2024 Encounter Details Date Type Department Care Team ([facility] st Contact Info) Description 09/17/2024 Telephone [facility] MEDICINE [address] [place], [place] [phone] Name, MD Joseph [address] [place] [address] Nurse Triage Social History Tobacco Use Types [...] No answer LVM to return call to [facility] triage line [phone]. * Telephone Encounter - Salvador Diamond - 09/17/2024 12:36 PM EST Symptom: High Blood Pressure - Caller Reports Outcome: Transfer to a nurse or provider NOW! Reason: Trouble breathing The caller accepted this outcome. documented in this encounter Plan of Treatment Upcoming Encounters Date Type Department Care Team (Late st Contact Info) Description 05/23/2025 10:30 AM EDT Telemedicine [facility] MEDICINE [address] [place] [address] Kaitlynn Landrum, RN documented as of this encounter Visit Diagnoses Not on filedocumented in this encounter Additional Health Concerns Assessment Noted Time PHQ-9 Depression Total Score: 0 01/30/20 24 11:07 AM EDT documented as of this encounter Care Teams Hose Seamer Relationship Specialty Start Date End Date Name, MD Joseph [address] [place] [address] PCP - General Family Medicine 01/21/22 documented as of this encounter
--- OUTSIDE RECORDS SUMMARY | 2025-05-18 02:54 | XMS_ITS | Encounter Summary ---
Author Organization [employer] Address [address] [facility] 7t [place] [address] Care Team Providers Care Pathology Laboratory Aide Name Role Phone Name, Joseph KIM Primary Care Provider [phone] Reason for Visit * Reason Onset Date Comments Call Back Request 02/13/2024 Encounter Details Date Type Department Care Team ([facility] Contact Info) Description 02/13/2024 Telephone [facility] MEDICINE [address] [place], [place] [phone] Name, MD Joseph [address] [place], [place] [phone] Call Back Request Social History Tobacco Use [...] AM EDT documented as of this encounter Functional Status * Over the last 2 weeks, how often have you been bothered by any of the following problems? Question Answer Date of Assessment Author Feeling nervous, anxious, or on edge 1 01/18 8:54 AM EDT Kaitlynn Landrum RN Not being able to stop or co ntrol worrying 0 02/16/2024 8:54 AM Kaitlynn Sanders RN Worrying too much about diff erent things 1 02/16/2024 8:54 AM EDKaitlynn Pendleton RN Trouble relaxing 1 02/16/2024 8:54 AM EDT Kaitlynn Reyes ae, RN Being so restless that it is hard to sit still 0 02/16/2024 8:54 AM Kaitlynn Sanders RN Becoming easily annoyed or irritable 1 01/18 8:54 AM Kaitlynn Sanders RN Feeling afraid as if somethi ng awful might happen 0 02/16/2024 8:54 AM Kaitlynn Sanders RN NATALIE-7 Total Score 4 02/16/2024 8:54 AM Kaitlynn Sanders RN documented as of this encounter Miscellaneous Notes [...] it evaluated. Stated she originally called this writer technical publications about her medications, but has since figured [...] [facility] MEDICINE [address] [place] [address] Kaitlynn Landrum, SUNSHINE documented as of this encounter Visit Diagnoses Not on filedocumented in this encounter Additional Health Concerns Assessment Noted Time PHQ-9 Depression Total Score: 0 01/30/20 24 11:07 AM EDT documented as of this encounter Care Teams Pathology Laboratory Aide Relationship Specialty Start Date End Date Name, MD Joseph [address] [place] [id number] PCP - General Family Medicine 01/21/22 documented as of this encounter
--- OUTSIDE RECORDS SUMMARY | 2025-05-18 02:54 | XMS_ITS | Encounter Summary ---
Author Organization [employer] Address [address] [facility] 7t [place] [address] Care Team Providers Care Cellophane Casting Machine Repairer Name Role Phone Name, Joseph KIM Primary Care Provider [phone] Encounter Details Date Type Department Care Team (Late st Contact Info) Description 04/28/2025 Results Follow-Up [facility] MEDICINE [address] [place], [place] [phone] Name, MD Joseph [address] [place] [address] CTA Chest PE Protocal Social History Tobacco Use Types Packs/Day Years [...] Info) Description 05/23/2025 10:30 AM EDT Telemedicine [facility] MEDICINE [address] [place] [address] Kaitlynn Landrum RN documented as of this encounter Visit Diagnoses Not on filedocumented in this encounter Additional Health Concerns Assessment Noted Time PHQ-9 Depression Total Score: 2 04/04/20 25 11:39 AM EDT documented as of this encounter Care Teams Cellophane Casting Machine Repairer Relationship Specialty Start Date End Date Name, MD Joseph [address] [place] [address] PCP - General Family Medicine 01/21/22 documented as of this encounter
--- OUTSIDE RECORDS SUMMARY | 2025-05-18 02:55 | XMS_ITS | Encounter Summary ---
Author Organization [employer] Address [address] [facility] 7t [place] [address] Care Team Providers Care Dog Beautician Name Role Phone Name, Joseph KIM Primary Care Provider [phone] Encounter Details Date Type Department Care Team ([facility] st Contact Info) Description 05/13/2025 Telephone [facility] MEDICINE [address] [place], [place] [phone] Name, MD Joseph [address] [place], [place] [phone] Social History Tobacco Use Types Packs/Day Years [...] Telephone Encounter - Ara Cantor RN - 05/13/2025 3:12 PM EDT T/C to pt who states she called because she needs alprazolam rx sent to her pharmacy. Advised pcp sent rx to preferred pharmacy already. Pt expressed gratitude. documented in this encounter Plan of Treatment Upcoming Encounters Date Type Department Care Team (Late st Contact Info) Description 05/23/2025 10:30 AM EDT Telemedicine [facility] MEDICINE [address] [place] [address] Kaitlynn Landrum, SUNSHINE documented as of this encounter Visit Diagnoses Not on filedocumented in this encounter Additional Health Concerns Assessment Noted Time PHQ-9 Depression Total Score: 2 04/04/20 25 11:39 AM EDT documented as of this encounter Care Teams Dog Beautician Relationship Specialty Start Date End Date Name, MD Joseph [address] [place] [address] PCP - General Family Medicine 01/21/22 documented as of this encounter
--- OUTSIDE RECORDS SUMMARY | 2025-05-18 02:55 | XMS_ITS | Encounter Summary ---
Author Organization [employer] Address [address] [facility] 7t [place] [address] Care Team Providers Care Shaping Machine Operator Name Role Phone Name, Joseph KIM Primary Care Provider [phone] Reason for Visit * Reason Comments Med Refill Encounter Details Date Type Department Care Team ([facility] st Contact Info) Description 05/12/2025 Refill [facility] MEDICINE [address] [place], [place] [phone] Name, MD Joseph [address] [place], [place] [phone] Chronic pain syndrome Social History Tobacco Use [...] Info) Description 05/23/2025 10:30 AM EDT Telemedicine [facility] MEDICINE [address] [place] [address] Kiatlynn Landrum, SUNSHINE documented as of this encounter Visit Diagnoses Diagnosis Chronic pain syndrome documented in this encounter Additional Health Concerns Assessment Noted Time PHQ-9 Depression Total Score: 2 04/04/20 25 11:39 AM EDT documented as of this encounter Care Teams Shaping Machine Operator Relationship Specialty Start Date End Date Name, MD Joseph [address] [place] [address] PCP - General Family Medicine 01/21/22 documented as of this encounter
--- OUTSIDE RECORDS SUMMARY | 2025-05-18 02:55 | XMS_ITS | Encounter Summary ---
Author Organization [employer] Address [address] [facility] 7t [place] [address] Care Team Providers Care Hog Stomach Preparer Name Role Phone Name, Joseph KIM Primary Care Provider [phone] Encounter Details Date Type Department Care Team (Late st Contact Info) Description 06/28/2024 Orders Only [facility] MEDICINE [address] [place], [place] [phone] Name, MD Joseph [address] [place], [place] [phone] Iron deficiency anemia, unspecified iron deficiency anemia [...] Feeling nervous, anxious, or on edge 1 06/18 2:34 PM EDT Kaitlynn Landrum RN Not being able to stop or co ntrol worrying 0 06/28/2024 2:34 PM EDT Kaitlynn Landrum RN Worrying too much about diff erent things 0 06/28/2024 2:34 PM EDT Kaitlynn Landrum RN Trouble relaxing 1 06/28/2024 2:34 PM EDT Kaitlynn Reyes ae, RN Being so restless that it is hard to sit still 1 06/28/2024 2:34 PM EDT Kaitlynn Landrum RN Becoming easily annoyed or irritable 0 06/18 2:34 PM EDT Kaitlynn Landrum RN Feeling afraid as if somethi ng awful might happen 0 06/28/2024 2:34 PM EDT Kaitlynn Landrum RN NATALIE-7 Total Score 3 06/28/2024 2:34 PM EDT Kaitlynn Landrum RN documented as of this encounter Plan of Treatment Upcoming Encounters Date Type Department Care Team (Late st Contact Info) Description 05/23/2025 10:30 AM EDT Telemedicine [facility] MEDICINE [address] [place] [address] Kaitlynn Landrum RN documented as of this encounter Procedures Procedure Name Priority Date/Time Associated Diagnosis Comments CBC WITH AUTO DIFFERENTIAL Routine 07/03/2024 2:09 PM EDT Iron deficiency anemia, unspecified iron deficiency anemia type documented in this encounter Results * (ABNORMAL) CBC auto differential (07/03/2024 2:09 PM EDT) White Blood Count 7.3 4.8 - 10.8 X10*3/uL [facility] Red Blood Count 2.26(L) 4.20 - 5.50 X10*6/uL [facility] Hemoglobin 6.0(LL) 12.0 - 16.0 g/dl [facility] Comment:Results of HCG perez d to and read back by DR Cordova 07/03/24 at 1840 by ASHA. Hematocrit 20.4(LL) 37.0 - 47.0 % [facility] Comment:Results of HCT perez d to and read back by DR Cordova 07/03/24 at 1840 by ASHA. Mean Corpuscular Volume 90.3 80.0 - 98.0 fL [facility] Mean Corpuscular Hemoglobin 26.5(L) 27.0 - 33.0 pg [facility] Mean Corpuscular HGB Conc 29.4(L) 31.0 - 35.0 g/dl [facility] Red Cell Distribution Width 17.9(H) 11.0 - 16.0 % [facility] Platelet Count 60(L) 160 - 400 X10*3/uL [facility] Mean Platelet Volume TNP 9.4 - 12.3 fL [facility] Neutrophils Percent Auto 82.0(H) 45 - 73 % [facility] Imm Gran Pct Auto 0.5(H) 0.0 - 0.4 % [facility] Lymphocytes Percent Auto 9.3(L) 20 - 40 % [facility] Monocytes Percent Auto 7.0 2 - 11 % [facility] Eosinophils Percent Auto 0.8 0 - 4 % [facility] Basophils Percent Auto 0.4 0 - 2 % [facility] NRBC Pct Auto 0.0 0.0 - 0.2 /100WBC [facility] Neutrophils Absolute Auto 6.0 2.0 - 8.3 x10*3/uL [facility] Imm Gran Abs Auto 0.04(H) 0.00 - 0.03 X10*3/uL [facility] Lymphocytes Absolute Auto 0.7(L) 1.2 - 4.9 X10*3/uL [facility] Monocytes Absolute Auto 0.5 0.1 - 1.2 X10*3/uL [facility] Eosinophils Absolute Auto 0.1 0.0 - 0.4 X10*3/uL [facility] Basophils Absolute Auto 0.0 0.0 - 0.2 X10*3/uL [facility] NRBC Abs Auto 0.000 0.0 - 0.012 X10*3/uL [facility] Blood Venous blood specimen / Unknown 07/03/2024 2:09 PM EDT 07/03/2024 4:15 PM EDT Joseph Magana MD LAB BLOOD ORDERABLES Edited Resu lt - Final [facility] [address] [place] [address] [phone] documented in this encounter Visit Diagnoses Diagnosis Iron deficiency anemia, unspecified iron deficiency anemia type documented in this encounter Additional Health Concerns Assessment Noted Time PHQ-9 Depression Total Score: 0 01/30/20 24 11:07 AM EDT documented as of this encounter Care Teams Hog Stomach Preparer Relationship Specialty Start Date End Date Name, MD Joseph [address] [place] [address] PCP - General Family Medicine 01/21/22 documented as of this encounter
--- NOTE | 2025-05-18 04:19 | ED_ITS ---
HPI - General Adult General Chief complaint: Fall Stated complaint: SOB Time Seen by Provider: 05/18/25 02:27 Source: patient and EMS Mode of arrival: EMS Limitations: no limitations History of Present Illness ED Provider: Dr. Loretta Sandoval HPI narrative: 79-year-old female with oxygen-dependent COPD presenting with shortness of breath that is been ongoing since about 2:00 a.m. yesterday. States that she fell at home after getting out of bed. Admits that since the fall she has felt worsening shortness of breath. Denies hitting her head or losing consciousness after the fall. She does not take blood thinners. Now that she is in the emergency department, she feels her breathing is at her baseline. She describes some substernal chest discomfort but no lateral rib pain. Yellow sputum production with her cough. Admits that this is chronic in nature. No reported fever. No leg swelling. Related Data Home Medications ?Medication ?Instructions ?Recorded ?Confirmed alprazolam 0.5 mg tablet 1 tab PO TID PRN Anxiety 04/27/25 cholecalciferol (vitamin D3) 25 1,000 unit PO DAILY 04/27/25 mcg (1,000 unit) capsule (Vitamin D3) albuterol sulfate 2.5 mg/3 mL 2.5 mg inhalation Q6H MO N Wheezing 01/27/22 04/27/25 (0.083 %) solution for nebulization cyanocobalamin (vitamin B-12) 1,000 mcg PO DAILY 01/2704/27/25 1,000 mcg tablet vitamin A 2,400 mcg capsule 2,400 mcg PO DAILY 2 04/27/25 metoprolol succinate 25 mg 25 mg PO DAILY 05/17/2207/12 tablet,extended release 24 hr (Toprol XL) biotin 10,000 mcg chewable tablet 10,000 mcg PO DAILY 12/07/22 04/27/25 (Hair, Skin and Nails (biotin)) ondansetron HCl 4 mg tablet 1 tab PO Q8H PRN Nausea An d 12/07/22 04/27/25 Vomiting albuterol sulfate 90 mcg/actuation 2 puff inhalation Q 4H PRN Wheezing 06/12/24 04/27/25 aerosol inhaler ferrous sulfate 325 mg (65 mg 325 mg PO DAILY 04/27/25 04/27/25 iron) tablet morphine 15 mg tablet,extended 15 mg PO BID 04/27/25 0 04/27/25 release oxycodone-acetaminophen 10 mg-325 1 tab PO QID PRN Den n 04/27/25 04/27/25 mg tablet Previous Rx's ?Medication ?Instructions ?Recorded azithromycin 500 mg tablet 500 mg PO DAILY 4 days #4 t abs 04/29/25 cefuroxime axetil 500 mg tablet 500 mg PO BID #8 tabs 04/29/25 cephalexin 500 mg capsule 500 mg PO Q6H 7 days #28 cap s 05/18/25 doxycycline monohydrate 100 mg 100 mg PO BID 7 days #1 4 caps 05/18/25 capsule Allergies Allergy/AdvReac Type Severity Reaction Status Date / Time amoxicillin Allergy Unknown Hives Verified 05/18/25 01:34 Penicillins (PENICILLINS) Allergy Unknown Hives Verified 05/18/25 01:34 Sulfa (Sulfonamide Allergy Unknown Hives Verified 05/18/25 01:34 Antibiotics) (SULFA (SULFONAMIDE ANTIBIOTICS)) Review of Systems 2 Review of Systems: as per HPI, full review of systems performed and negative but for the above mentioned pertinent positives and negatives. [facility] Past Medical History Medical History Chronic ITP (idiopathic thrombocytopenia) Ischemic cardiomyopathy Ascending aorta dilatation Atherosclerotic cardiovascular disease Non-rheumatic mitral regurgitation Non-rheumatic aortic regurgitation Non-rheumatic aortic stenosis Cardiomyopathy COPD exacerbation Heart failure with reduced ejection fraction Acute on chronic systolic (congestive) heart failure COPD (chronic obstructive pulmonary disease) Thrombocytopenia Osteoarthritis GERD (gastroesophageal reflux disease) Anxiety Asthma Surgical History Hx of colonoscopy Hx of endoscopy Hx of oophorectomy Hx of hysterectomy Hx of total knee replacement Family History Family History Sister Lung cancer Lupus Sister Lung cancer Maternal Aunt Lupus Social History Social History Household Members: Friend(s) Household Members Other:: lives alone Housing: Condominium Are you a primary childcare worker to a significant other at home: No Do you presently have visiting nurse or other home services: No ([facility]) Unable to assess alcohol history related to: Unknown Alcohol intake: current Alcohol intake frequency: holidays/special occasions only Comment: patient refusing alarms Patient Tobacco Use Status: Former Tobacco user Smoked in Last 30 Days: No Second Hand Smoke Exposure: No Use of substances other than those prescribed or required for medical reasons: No Substance Use Type: Unknown Advance Directives: Yes Advance Directives on File: Yes Advance Directives Date on File: 03/20/23 Do you have a plan to hurt others: No Plan service: Yes Current occupational status: employed Physical Exam ED Exam Exam: GENERAL: Anxious, chronically ill-appearing. SKIN: Normal skin color for ethnicity, warm, dry, no rashes noted. HEENT: Normocephalic, atraumatic, no stridor, EOMI. NECK: Soft, supple, full ROM, midline structures nontender, no step-offs, no deformities, no lymphadenopathy. CHEST: Heart regular rhythm, barrel chest, symmetric chest rise and fall. PULMONARY: Diffuse, faint, wheezes throughout, tachypnea, diminished air movement bilaterally R>L, no respiratory distress, occasional dry cough. ABDOMINAL: Soft, nontender, quiet bowel sounds in all quadrants. : Deferred. MUSCULOSKELETAL: Normal tone, full range of motion, no deformities, no peripheral edema. NEURO: Alert and oriented to person, CN II through XII intact, no focal neurologic deficits. PSYCHIATRIC: Anxious affect, appropriate demeanor. Vital Signs: Vital Signs - 24 hr 05/18/25 01:30 Temperature 98.4 F Pulse Rate 88 Respiratory Rate 15 Blood Pressure 125/73 Pulse Oximetry 95 Oxygen Delivery Method Room Air BMI result Body Mass Index 30.6 Medications Administered Discontinued Medications Generic Name Dose Route Start Last Admin Trade Name Freq PRN Reason Stop Dose Admin Cephalexin HCl 500 mg 05/18/25 04:14 05/18/25 05:33 Cephalexin 500 Mg Capsule PO 05/18/25 04:15 500 mg ONCE ONE Administration Doxycycline Monohydrate 100 mg 05/18/25 04:14 05/18/25 05:33 Doxycycline Monohydrate 100 Mg Capsule PO 05/18/25 04:15 100 mg ONCE ONE Administration Ondansetron HCl 4 mg 05/18/25 07:17 05/18/25 07:32 Ondansetron Odt 4 Mg Tab.Rapdis TRANSLINGU 05/18/25 07:18 4 mg ONCE ONE Administration Medical Decision Making Medical Decision Making [facility] Narrative: Patient presents today with chief complaint of shortness of breath and fall at home. Differential diagnosis includes, but is not limited to, upper respiratory infection, pneumonia, COPD exacerbation, rib fractures or contusions, CHF, pneumothorax, pleural effusion, pulmonary embolism, ACS. Broad-based work-up will be initiated to evaluate for etiology of patient's symptoms. XR read as potential pneumonia. She has basline cough and sputum but is having increased oxygen demands today. Using shared decision making, plan for discharge home to follow-up with primary care and/or specialist.?She does not want to be hospitalized, though I did recommend this. Patient understands and agrees with plan for discharge.? Discharged home in stable condition. Differential Diagnosis Differential Diagnoses: The differential diagnosis associated with the presentation includes (as above) Admission/Observation Consideration of admission/observation: Escalation of care including admission/observation considered Lab Data [facility] Lab Attestation statement: I reviewed the patient's lab results. 05/18/25 01:41 05/18/25 01:41 Labs: Lab Results 05/18/25 Range/Units 01:41 WBC 6.1 (4.8-10.8) X10*3/uL RBC 3.11 L (4.20-5.50) X10*6/uL Hgb 9.4 L (12.0-16.0) g/dl Hct 29.8 L (37.0-47.0) % MCV 95.8 (80.0-98.0) fL MCH 30.2 (27.0-33.0) pg MCHC 31.5 (31.0-35.0) g/dl RDW 13.9 (11.0-16.0) % Plt Count 57 L (160-400) X10*3/uL MPV Not Reportable Immature Gran % (Auto) 0.2 (0.0-0.4) % Neut % (Auto) 67.8 (45-73) % Lymph % (Auto) 14.5 L (20-40) % [place] % (Auto) 11.6 H (2-11) % Eos % (Auto) 5.1 H (0-4) % Baso % (Auto) 0.8 (0-2) % Lymph # (Auto) 0.9 L (1.2-4.9) X10*3/uL [place] # (Auto) 0.7 (0.1-1.2) X10*3/uL Eos # (Auto) 0.3 (0.0-0.4) X10*3/uL Baso # (Auto) 0.1 (0.0-0.2) X10*3/uL Abs Immat Gran (auto) 0.01 (0.00-0.03) X10*3/uL Absolute Neuts (auto) 4.1 (2.0-8.3) x10*3/uL Absolute Nucleated RBC 0.000 (0.0-0.012) X10*3/uL Nucleated RBC % (auto) 0.0 (0.0-0.2) /100WBC Sodium 146 H (135-145) mmol/L Potassium 4.4 (3.3-5.1) mmol/L Chloride 106 (96-108) mmol/L Carbon Dioxide 29 (22-29) mmol/L Anion Gap 15 (12-20) BUN 14 (9-16) mg/dL Creatinine 0.78 (0.5-1.4) mg/dL Estim Creat Clear Calc 57.0 Estimated GFR > 60 Random Glucose 98 (60-115) mg/dL Calcium 8.7 D (8.4-10.2) mg/dL Total Bilirubin 0.5 (0.0-1.0) mg/dL AST 32 H (5-31) U/L ALT 17 (0-31) U/L Alkaline Phosphatase 48 (39-117) U/L Troponin I High Sens 7.1 (<3.5-17.0) ng/L B-Natriuretic Peptide 107 H (<100) pg/mL Total Protein 5.9 L (6.5-8.0) g/dL Albumin 4.0 (3.5-5.0) g/dL Radiology Impression Discussion of test interpretation with radiology: I have reviewed the radiologist's reading. Radiologist Impression: 1 view chest x-ray Comparison: CR - XR CHEST 1V - 04/27/25 08:23 EDT Findings: Normal heart size. Calcified thoracic aorta. Slight retrocardiac opacity, more apparent than prior chest radiograph on 04/27/2025 that may represent a pneumonia. No focal consolidations elsewhere. No pleural effusions. Degenerative changes of both shoulders. IMPRESSION: Slight retrocardiac opacity that may represent a pneumonia, more apparent than 04/27/2025. This document has been electronically signed by: Micah Shin MD on 05/18/2025 03:16:01 Independent Historian Clinical information obtained from an independent historian. History obtained from or confirmed by: EMS External Record Review External record reviewed: Inpatient record Prescription Management I considered prescription management with: Antibiotic Chronic Conditions Patient?s care impacted by: Other (COPD) Social Determinants Patient?s care significantly limited by Social Determinants of Health including: Problems related to primary support group Discharge Plan Discharge Clinical Impression: Pneumonia, At risk for polypharmacy, Falls frequently Patient Disposition: Home, Self-Care Instructions: Pneumonia (ED) Additional Instructions: Take your antibiotic as prescribed until the course is completed. Do not stop this medication early if you start to feel better. Follow up with primary care in the next 5 days. Return to the emergency department sooner with any new or worsening symptoms including: Worsening fevers, chest pain, difficulty breathing, cough with sputum production that is bloody or green in color, vomiting, any new symptom that concerns you. Call 911 with any medical emergency. Prescriptions: New cephalexin 500 mg capsule 500 mg PO Q6H 7 Days Qty: 28 0RF doxycycline monohydrate 100 mg capsule 100 mg PO BID 7 Days Qty: 14 0RF No Action alprazolam 0.5 mg tablet 1 tab PO TID PRN (Reason: Anxiety) cholecalciferol (vitamin D3) [Vitamin D3] 25 mcg (1,000 unit) Capsule 1,000 unit PO DAILY ondansetron HCl 4 mg tablet 1 tab PO Q8H PRN (Reason: Nausea And Vomiting) Hair, Skin and Nails (biotin) 10,000 mcg Tablet,Chewable 10,000 mcg PO DAILY albuterol sulfate 2.5 mg /3 mL (0.083 %) solution for nebulization 2.5 mg inhalation Q6H PRN (Reason: Wheezing) vitamin A 2,400 mcg Capsule 2,400 mcg PO DAILY cyanocobalamin (vitamin B-12) 1,000 mcg Tablet 1,000 mcg PO DAILY albuterol sulfate 90 mcg/actuation HFA aerosol inhaler 2 puff inhalation Q4H PRN (Reason: Wheezing) oxycodone-acetaminophen 10-325 mg tablet 1 tab PO QID PRN (Reason: Pain) morphine 15 mg tablet extended release 15 mg PO BID ferrous sulfate 325 mg (65 mg iron) Tablet 325 mg PO DAILY cefuroxime axetil 500 mg tablet 500 mg PO BID Qty: 8 0RF azithromycin 500 mg tablet 500 mg PO DAILY 4 Days Qty: 4 0RF metoprolol succinate [Toprol XL] 25 mg tablet extended release 24 hr 25 mg PO DAILY Interventions: ED Discharge Assessment Last Done: 05/18/25 09:10 Discharge Date/Time: 05/18/25 09:11 Print Language: Lebanese
--- NOTE | 2025-05-18 04:54 | PC.NURSE ---
0245 Late Entry While running the list, this patient's name was noted. landscape gardener requested a safety check be completed by security due to previous experiences with this patient. During a previous visit/admission the pt was noted to be excessively drowsy despite her not receiving anything to cause the drowsiness. This RN, security, and another staff member all presented to her room. The pt was difficult to arouse with verbal stimuli, however once she was awake this RN explained the need to complete a safety check, asking her permission which she said yes and granted. She was ultimately found to have narcotics and other controlled medications in her bag (3 controlled substances and 1 non-controlled). Medications were inventoried and ultimately will be returned to the patient at time of dc.
[2025-05-18 05:34] VITALS: BP 120/55; PULSE 94; RESP 16; TEMP 37.2; O2SAT 93
[2025-05-18 08:00] VITALS: BP 110/68; PULSE 78; RESP 18; TEMP 37; O2SAT 94
[2025-05-18 09:10] VITALS: BP 110/68; PULSE 78; RESP 18; TEMP 37; O2SAT 94
== END 2025-05-18 09:11 | disposition home or self-care (01) ==
PROVIDERS: Emergency Provider Emergency Medicine; PCP Internal Medicine Geriatric Medicine
DX: J18.9 Pneumonia, unspecified organism (principal); R06.02 Shortness of breath; J44.9 Chronic obstructive pulmonary disease, unspecified; Z79.899 Other long term (current) drug therapy; Z87.891 Personal history of nicotine dependence; Z91.81 History of falling
CPT/HCPCS: 36415; 71045; 80053; 83880; 84484; 85025; 93005; 99283; 99285

== ENCOUNTER → 2025-05-18 01:42 | Outpatient (BNV) | payer OTHER, SELFPAY | PROVIDERS: Emergency Provider Emergency Medicine; PCP Internal Medicine Geriatric Medicine; Visit Provider Internal Medicine | DX: I25.2 Old myocardial infarction (principal) | CPT/HCPCS: 93010 ==

== ENCOUNTER → 2025-05-18 02:00 | Outpatient (BNV) | payer OTHER, SELFPAY | PROVIDERS: Emergency Provider Emergency Medicine; PCP Internal Medicine Geriatric Medicine; Visit Provider Student in an Organized Health Care Education/Training Program | DX: R06.02 Shortness of breath (principal) | CPT/HCPCS: 71045 ==

== ENCOUNTER 2025-05-30 10:33 | Inpatient (IN) | payer OTHER, SELFPAY ==
--- OUTSIDE RECORDS SUMMARY | 2025-05-28 15:24 | XMS_ITS | Encounter Summary ---
Author Organization [facility] Address [address] [place] [address] Care Team Providers Care Mule Developer Name Role Phone Name, Joseph KIM Primary Care Provider [phone] Reason for Referral * Home Health (Routine) - Pending Review Specialty Diagnoses / Procedures Referred By Marisa head Referred To Contact Home Health Services Diagnoses Dehydration Leonid Hollis PA [address] [place] [address] Phone: tel: fax: Referral ID Status Reason Start Date Expiration Date Visits Requested Visits Authorized [id number] Pending Review Consult and Treat 05/29/2025 05/29/2026 1 1 Reason for Visit * Reason Comments Weakness - Generalized Diagnosed with PN A. ANX made her sick so she stopped taking them . * Auth/Cert (Routine) Specialty Diagnoses / Procedures Referred By Marisa head Referred To Contact Diagnoses Dehydration Procedures . Steven Martin MD [address] [place] [address] Phone: tel: fax: [facility] [address] [place] [address] Phone: tel: Referral ID Status Reason Start Date Expiration Date Visits Re quested Visits Authorized [id number] 1 1 Encounter Details Date Type Department Care Team (Latest Contact Info) Description 05/28/2025 3:24 PM EDT - 05/29/2025 1:23 PM EDT Hospital Encounter [facility] [address] [place] [id number] Yaya Carrasquillo MD [address], [place] [id number] Dennys Maddox MD [address] [place] [address] Steven Martin MD [address], [place] [id number] Dieudonne Coley MD [address] [place] [address] Dehydration (Primary Dx); Dehydration, mild; Hypomagnesemia; Hypokalemia Discharge Disposition: Home-Health Care Svc Social History Tobacco Use Types Packs/Day Years Used Date Smoking Tobacco: Former Cigarettes Q uit: 09/18/2004 Smokeless Tobacco: Never Alcohol Use Standard Drinks/Week Comments Yes 0 (1 standard drink = 0.6 oz pur e alcohol) Interpersonal Safety Answer Date Record ed Physical Abuse 05/29/2025 Verbal Abuse 05/29/2025 Comments Unknown Sex and Gender Information Value Date Recorded Sex Assigned at Female 05/28/2025 3:47 PM EDT Legal Sex Female 2:37 PM EST Gender Identity Female 05/28/2025 3:47 PM EDT Sexual Orientation Straight 05/28/2025 3: 51 PM EDT documented as of this encounter Last Filed Vital Signs Vital Sign Reading Time Taken Comments Blood Pressure 158/70 05/29/2025 7:32 AM EDT Pulse 82 05/29/2025 7:32 AM EDT Temperature 36.6 C (97.8 F) 05/29/2025 7:32 AM EDT Respiratory Rate 20 05/29/2025 7:32 AM EDT Oxygen Saturation 94% 05/29/2025 1:00 PM EDT Inhaled Oxygen Concentration - - Weight 77.6 kg (171 lb) 05/28/2025 3:42 PM EDT Height 160 cm (5' 3 ) 05/28/2025 3:42 PM EDT Body Mass Index 30.29 05/28/2025 3:42 PM EDT documented in this encounter Discharge Summaries * SHAYLEE Ventura - 05/29/2025 1:23 PM EDT Images from the original note were not included. [facility] DISCHARGE SUMMARY Patient Information Susan Chan : 1945 [79 y.o.] Admitting Provider Steven Martin MD Discharge Provider SHAYLEE Ventura, No att. providers found Primary Care Physician Joseph Magana MD Admission Date 05/28/2025 Discharge Date 05/29/2025 Discharge Destination: Home with VNA Code Status at Discharge: Prior Hospital Course Summary GI symptoms Med intolerance? 79-year-old female with PMH of chronic pain syndrome, opiate dependence, hypertension, hyperlipidemia, asthma, recurrent GI bleed and history of chronic ITP who presented to the ED for nausea, vomiting, diarrhea for few days. A week and half ago, she was checked in hospital after falling and there was concern about to be pneumonia. She was started on Keflex and doxycycline and experienced nausea, vomiting, diarrhea. Denied sick contact. On presentation and during her observation, her vital signs remained stable. CBC was negative for leukocytosis. Chemistry showed low potassium and magnesium which were replaced. Patient was managed with IV fluid. Her GI symptoms improved. She was able to tolerate oral diet. She was seen by PT who recommended home VNA. Patient discharged and was recommended follow-up with PCP. Chronic ITP Platelet 66 from 70. Hypertension Metoprolol succinate Chronic pain syndrome Managed with pain medication. Procedures done: XR Chest 2 Views Final Result FINDINGS/IMPRESSION: No pneumonia or pulmonary edema. No pleural effusion or pneumothorax. Cardiac silhouette is mildly enlarged. Mild degenerative changes seen throughout the bones. -------- FINAL REPORT -------- Dictated By: ASA BOUCHER Dictated Date: 05/29/2025 08:17 ET Assigned Physician: ASA BOUCHER Reviewed and Electronically Signed By: ASA BOUCHER Signed Date: 05/29/2025 08:18 ET Workstation ID: [id number] Transcribed By: Self Edit Transcribed Date: 05/29/2025 08:17 ET Condition upon discharge Visit Vitals BP (!) 158/70 (BP Location: Left arm;Upper, Patient Position: Lying) Pulse 82 Temp 36.6 ??C (97.8 ??F) (Oral) Resp 20 Temp (24hrs), Av.1 ??C (98.7 ??F), Min:36.6 ??C (97.8 ??F), Max:37.6 ??C (99.7 ??F) Body mass index is 30.29 kg/m??. No results found for: PTWT , PTHT GEN: Alert, oriented. No distress. HEENT: Atraumatic, symmetric, PERRLA. Neck: Supple, nontender, no range of motion limitation. Lungs: Clear, no accessory muscle use. Heart: Regular, no murmur. Abdomen: Not distended, soft, nontender. Bowel sounds present. Skin: Multiple bruises. Neuro: Alert, oriented. Cranial nerves II to XII grossly intact. No facial droop. No motor deficit,no sensory deficit. Psych: Cooperative, calm. This note was written using [employer] speech recognition software which is prone to typographical errors. If questions occur please do not hesitate to call this provider. Follow-Up Instructions and Recommendations No follow-up provider specified. Discharge Procedure Orders Ambulatory referral to Home Health Standing Status: Future Referral Priority: Routine Referral Type: Home Health Referral Reason: Consult and Treat Requested Specialty: Home Health Services Number of Visits Requested: 1 There are no outpatient Patient Instructions on file for this admission. Discharge Medications Your medication list CONTINUE taking these medications Instructions Last Dose Given Next Dose Due ALPRAZolam 0.5 mg tablet Commonly known as: XANAX Take 1 tablet (0.5 mg total) by mouth every 8 hours. Max Daily Amount: 1.5 mg [address] capsule Commonly known as: CYMBALTA Take 1 capsule (30 mg total) by mouth 2 times daily. metoprolol succinate 25 mg 24 hr tablet Commonly known as: TOPROL-XL Take 1 tablet (25 mg total) by mouth daily. morphine 15 mg 12 hr tablet Commonly known as: MS CONTIN Take 1 tablet (15 mg total) by mouth 2 times daily. Max Daily Amount: 30 mg oxyCODONE-acetaminophen 10-325 mg per tablet Commonly known as: PERCOCET Take 1 tablet by mouth every 6 hours as needed. Max Daily Amount: 4 tablets Case discussed with Dr Beck Time spent: 30 Cosigned by Dieudonne Coley MD at 05/29/2025 10:48 PM EDT Associated attestation - Dieudonne Coley MD - 05/29/2025 10:48 PM EDT This is a split/shared visit with SHAYLEE Ventura. I personally performed the medical decision making (MDM) for the care of this patient on 05/29/25 as documented below I have personally seen and examined the patient with the resident/PA/RACECAR DRIVER and barriga elements of all parts of the encounter were performed by me. Patient was reassessed on more than one occasion when required. I reviewed the interval history, interpreted all available radiographic, laboratory and physiological data at the time of service. I agree with the assessment and plan as documented by the resident/PA/RACECAR DRIVER with additions. Patient presented to hospital with complaints of a GI upset following antibiotic treatment as an outpatient, the patient was treated for suspected pneumonia as an outpatient, the patient was given IVfluid resuscitation, electrolyte replacement and her symptoms were well-controlled. The patient hasno evidence of infection at this time, she was discharged in stable condition Home with home services. She has a history of ITP with a stable platelet count. Alexis Beck MD 05/29/25 10:45 PM EDT documented in this encounter Medications at Time of Discharge ALPRAZolam (XANAX) 0.5 mg tablet Take 1 tablet (0.5 mg total) by mouth every 8 hours. 10/05/2015 morphine (MS CONTIN) 15 mg 12 hr tablet Take 1 tablet (15 mg total) by mouth 2 times daily. Max Daily Amount: 30 mg 05/06/2025 06/03/2025 oxyCODONE-acetami nophen (PERCOCET) 10-325 mg per tablet Take 1 tablet by mouth every 6 hours as needed. Max Daily Amount: 4 tablets 08/28/2024 06/03/2025 DULoxetine (CYMBALTA) [address] capsule Take 1 capsule (30 mg total) by mouth 2 times daily. 04/04/2025 04/04/2026 metoprolol succinate (TOPROL-XL) 25 mg 24 hr tablet Take 1 tablet (25 mg total) by mouth daily. 02/10/2021 documented as of this encounter Discharge Disposition Disposition Code Departure Means Destination Comment s Home-Health Care c Car Home documented in this encounter Progress Notes * Janneth Damian RN - 05/29/2025 4:09 PM EDT 05/29/25 1608 Initial Transition Plan Initial Transition Plan Home Back up Transition Plan Back up Transition plan Home Health Care Discharge Planning Living Arrangements Friends Type of Residence Private residence Assistive Devices Walker Support Systems Friends;Caregiver Medication Coverage Has Med Coverage Under Insurance Plan Yes Medication Affordability No concerns related to payment for meds Anticipated Discharge Needs Discipline following for SNF placement Hairspring I Inspector Informed Choice Informed Choice Given? Yes Transportation Transportation at discharge Family What day is the transport expected? 05/29/25 Final Discharge Disposition Home Health Care Services [facility] met with pt at bedside. Demographics confirmed. Pt reported her was a . Pt resides with a friend. Pt recommended home pt, referral placed and accepted by Brisa. Pt medically cleared for d/c home. Pt to d/c home with VNA * Rosalie Hernandez RN - 05/29/2025 1:24 PM EDT Education provided with regards to home meds/home PT and f/u appointments. Patient acknowledged. * Rosalie Hernandez RN - 05/29/2025 1:22 PM EDT Goals: Go home Identify possible barriers to meeting goals/advancing plan of care: Tolerate diet Stability of the patient: Moderately Stable - Low risk of patient condition declining or worsening End of Shift Summary: go home with PT * Audra Madrid, PT - 05/29/2025 11:00 AM EDT [facility] Physical Therapy Evaluation & Treatment PT Discharge Recommendations: Home PT (discussed the option of STR due to her decreased endurance and only ambulaitng 5' today. She adamently refuses rehab, she states she is confident her friend canassist her as needed and she has too many obligations to take care of at home.) Staff Recommendations for safe patient handling: close supervision transfers and ambulate with walker 5' Precautions Medical Precautions: Fall Risk, Contact (c diff rule out) Safety Interventions: Call phillips within reach, ID band on, Bed alarm RUE Weight Bearing Status: Full LUE Weight Bearing Status: Full RLE Weight Bearing Status: Full LLE Weight Bearing Status: Full Fall prevention education provided including use of call light in hospital, use of appropriate assistive device, safe mobility techniques, and safety measures at home. PT Received On: 05/29/25 PT Start Time: 1100 PT Stop Time: 1130 PT Time Calculation (min): 30 min General Family/Caregiver Present: No Precautions Medical Precautions: Fall Risk, Contact (c diff rule out) Safety Interventions: Call phillips within reach, ID band on, Bed alarm RUE Weight Bearing Status: Full LUE Weight Bearing Status: Full RLE Weight Bearing Status: Full LLE Weight Bearing Status: Full Cognition Overall Cognitive Status: Within Functional Limits Arousal/Alertness: Appropriate responses to stimuli Orientation Level: Oriented X4 Following Commands: Follows all commands and directions without difficulty Hearing: Intact Vision: Intact Speech: Intact Integumentary: multiple bruises all over her limbs which she states is chronic History of Present Illness: Patient is a 79 y.o. female admitted to [facility] on 05/28/2025. 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 HYSTERECTOMY PROCEDURE: HISTORICAL HYSTERECTOMY; COMMENT: pelvic peritonitis KNEE SURGERY PROCEDURE: HISTORICAL KNEE SURGERY; COMMENT: 1974 OTHER SURGICAL HISTORY PROCEDURE: NV LARYNGOSCOPY INDIRECT W/VOCAL CORD INJECTION Social History Home Living Environment: Home Living Type of Home: [facility] Lives With: Friends (she lives with a friend who she martha is able to assist with some household tasks) Home Adaptive Equipment: Rollator, Cane Home Layout: Two level, Bed/bath upstairs, Stairs to alternate level with rails Alternate Level Stairs-Rails: Rail on the right going up Alternate Level Stairs-Number of Steps: 12 Home Access: Stairs to enter with rails Entrance Stairs-Rails: Rail on the right going up Entrance Stairs-Number of Steps: 2 Prior Function Level of [place]: Independent with mobility and functional transfers Ambulation Status: Household ambulator, Community ambulator Receives Help From: Friends Indoor Mobility Assistance: Independent Stairs Assistance : Independent Prior Device Use: Rollator 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) Which is your dominant hand?: Right General Assessment 05/29/25 1100 PT Last Visit PT Received On 05/29/25 General Family/Caregiver Present No PT Time Calculation PT Start Time 1100 PT Stop Time 1130 PT Time Calculation (min) 30 min Precautions Medical Precautions Fall Risk;Contact (c diff rule out) Safety Interventions Call phillips within reach;ID band on;Bed alarm RUE Weight Bearing Status Full LUE Weight Bearing Status Full RLE Weight Bearing Status Full LLE Weight Bearing Status Full Vital Signs SpO2 97 % Oxygen Therapy Patient Activity Walking Oxygen Therapy Supplemental oxygen O2 Delivery Method Nasal cannula O2 Flow Rate (L/min) 2 L/min (the pt did not use 02 at home) Pain Assessment Pain Assessment 0-10 Pain Score 4 Pain Type Chronic pain Pain Location Knee Pain Orientation Right Cognition Overall Cognitive Status WFL Arousal/Alertness Appropriate responses to stimuli Orientation Level Oriented X4 Following Commands Follows all commands and directions without difficulty Home Living Type of Home [facility] Lives With Friends (she lives with a friend who she syas is able to assist with some household tasks) Home Adaptive Equipment Rollator;Cane Home Layout Two level;Bed/bath upstairs;Stairs to alternate level with rails Alternate Level Stairs-Rails Rail on the right going up Alternate Level Stairs-Number of Steps 12 Home Access Stairs to enter with rails Entrance Stairs-Rails Rail on the right going up Entrance Stairs-Number of Steps 2 Prior Function Level of [place] Independent with mobility and functional transfers Ambulation Status Household ambulator;Community ambulator Receives Help From Friends Indoor Mobility Assistance Independent Stairs Assistance Independent Prior Device Use Rollator 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 Right Activity Tolerance Endurance (currently requires 2L nasal 02) Sensation Light Touch No apparent deficits Proprioception Proprioception No apparent deficits Static Sitting Balance Static Sitting-Level of Assistance Independent Static Sitting-Balance Support Feet supported;Left upper extremity supported;Right upper extremity supported Dynamic Sitting Balance Dynamic Sitting-Level of Assistance Supervision Dynamic Sitting-Balance Forward lean Dynamic Sitting-Balance Support Right upper extremity supported;Left upper extremity supported;Feetsupported Static Standing Balance Static Standing-Level of Assistance Close supervision Static Standing-Balance Support Right upper extremity supported;Left upper extremity supported Dynamic Standing Balance Dynamic Standing-Level of Assistance Contact guard Dynamic Standing-Balance Ambulation Dynamic Standing-Balance Support Left upper extremity supported;Right upper extremity supported Bed Mobility Sitting to Lying Assistance Minimum assistance Sitting to Lying Deficit Assist lifting right leg onto bed Lying to Sitting Assistance Supervision Transfers Sit to Stand Assistance Supervision Chair/Bed to Chair/Bed Transfer Assistance Close supervision Ambulation Walking Assistance Close supervision Walking Deficit (inc fatigue with ambulation) Device Rolling walker Distance Ambulated (ft) 5 (the pt declined further ambulation stating she didn't sleep well in the ER last night) Stairs Reason(s) not performed: (the pt declined stair management due to not sleeping well last night. She states she crab walks up the stairs and her friend can assist her if needed) RUE Assessment RUE Assessment Within Functional Limits LUE Assessment LUE Assessment Within Functional Limits RLE Assessment RLE Assessment Impaired RLE Assessment Comments strength 4/5 but she reports chronic pain in the R LE LLE Assessment LLE Assessment Within Functional Limits PT Assessment PT Assessment Results Decreased strength;Decreased endurance Prognosis Good Evaluation/Treatment Tolerance Patient tolerated treatment well Medical Staff Made Aware Yes Plan Treatment/Interventions LE strengthening/ROM;Endurance training;Patient/family training;Gait training;Balance training PT Plan Skilled PT PT Frequency 2-5 days per week PT Discharge Recommendations Home PT (discussed the option of STR due to her decreased endurance and only ambulaitng 5' today. She adamently refuses rehab, she states she is confident her friend can assist her as needed and she has too many obligations to take care of at home.) Equipment Recommended (explained the risk of falls due to her decreased endurance and she states she understands but is still choosing to go home. She is receptive to home PT) PT - Evaluation Status Complete PT Evaluation Time Entry PT Evaluation (Moderate) Time Entry 30 ADDITIONAL COMMENTS: Chart reviewed. RN clears pt for session. Pt agrees to participate and presented in supine upon PT arrival. All lines in place. Gait belt utilized throughout treatment to maximize safety. Medical precautions observed appropriately. Initiated education on the importance of PT, bed mobility safety, Transfer Safety, Ambulation Safety , Therapy Plan of Care, Home Safety, Energy Conservations strategies, and importance of OOB activity . Pt verbalized understanding. EXIT STATUS: Session ended with patient supine, tray table and call light within reach, and RN made aware. Physical Therapy Assessment/Plan Susan Chan is a 79 y.o. female admitted to [facility] on 05/28/2025 for Dehydration [E86.0] . Pt presents with decreased BLE strength and decreased activity tolerance, below functional baseline. Pt performed bed mobility Minimal assist, HOB elevated, Transfers with Stand by assist, FWW and ambulates Stand by assist with FWW 5 ft . Pt will benefit from skilled acute PT during hospital stay to improve the deficits listed above and optimize function. PT recommends Home PT (discussed the option of STR due to her decreased endurance and only ambulaitng 5' today. She adamently refusesrehab, she states she is confident her friend can assist her as needed and she has too many obligations to take care of at home.) when medically stable for safe discharge and to optimize functional mobility and independence. Goals Education Documentation Precautions, taught by Audra Madrid PT at 05/29/2025 12:07 PM. Learner: Patient Readiness: Acceptance Method: Explanation Response: Verbalizes Understanding Comment: Educated on the risk of falls and she understands but is opting to dc to home with home PT Mobility Training, taught by Audra Madrid PT at 05/29/2025 12:07 PM. Learner: Patient Readiness: Acceptance Method: Explanation Response: Verbalizes Understanding Comment: Educated on the risk of falls and she understands but is opting to dc to home with home PT Education Comments No comments found. Audra Madrid PT * Natalie Lima RN - 05/29/2025 6:06 AM EDT ED RN HANDOFF (All [place] Below Must Be Completed) Reason/Diagnosis for Admission: Type of Admission: [x] Medsurg, [] Telemetry Already in a Hospital Bed: [] Yes / [x] No Room Considerations/Precautions (ex: fever, diarrhea, or any infectious concerns): [x] Yes / [] No C. Difficile rule-out, GI rule-out Plumber Helper: [x] Yes / [] No If YES, Cardiac Rhythm: [x] NSR, [] SB, [] ST, [] A-FIB, [] A-Flutter, [] Pacemaker, [] 1st Degree HB, [] 2nd Degree HB, [] 3rd Degree HB Reason for Plumber Helper: VS: Visit Vitals BP 116/60 (BP Location: Left arm;Upper, Patient Position: Sitting) Pulse 86 Temp 37.1 ??C (98.7 ??F) (Oral) Resp 20 Ht 1.6 m (63 ) Wt 77.6 kg (171 lb) SpO2 98% BMI 30.29 kg/m?? Smoking Status Former BSA 1.81 m?? Current Mental Status: A/O x [x]4, []3, []2, []1 Current Ambulation Status: This RN unable to assess IV Access: [x] Yes / [] No Field IV present: [x] Yes / [] No Hx of Violence: [] Yes / [x] No / [] Unknown Patient Belongings inventoried and BL completed: [x] Yes / [] No Patient belongings stored in the security closet: [] Yes (If Yes please supply Security bag #): [x] No Patient Medications stored in Pharmacy: [] Yes (If Yes please supply Medication Security bag #): [x] No ED Summary of Care: Pt was d/c from [facility] recently dx with pneumonia, noncompliant with abx d/t not feeling well. Pt c/o weakness, dizziness. Pt given oxycodone-acetaminophen 10-650 @ 1721, oxycodone-acetaminophen 10-325 at 0144, potassium tab, mag tab, 0.5mg xanax for sleep/anxiety. LR currently infusing at 125ml/hr. Pt pleasant, VSS. Alert & oriented, mildly forgetful but able to be reoriented. Submitted by and Phone Extension: [phone] * Christiano Garduno RN - 05/28/2025 3:28 PM EDT From home via EMS. Dced from [place] after admission for PNA. Has not been taking her ABX because she hasn't been feeling well. * Yaya Carrasquillo MD - 05/28/2025 3:23 PM EDT Images from the original note were not included. [facility] EMERGENCY DEPARTMENT ENCOUNTER Patient: Susan Chan MR# [id number] Time of Service: 05/28/2025 3:24 PM History PCP: Joseph Magana MD. Chief Complaint Patient presents with Weakness - Generalized Diagnosed with PNA. ANX made her sick so she stopped taking them . Susan Chan is a 79 y.o. female who presents to the ED with chief complaint of weakness. She states that she was just discharged last couple of days from [facility] after a admission for pneumonia. She was discharged on antibiotics. She states she cannot tolerate them and she is feeling very weak and nauseous. She is also had diarrhea, last episode yesterday, that she has been managing with Imodium. She states she cannot even get up and her roommate is having to help her get up. She Had been at [facility] just previous to that, about a week and a half ago, and was admitted overnight after a fall. She fell off of her couch when she fell asleep. She has chronic thrombocytopenia and bruises very easily. She has extensive bruising but she states that all the tests were negative at that point. Has a history of cardiomyopathy, chronic ITP, COPD ROS Negative except for HPI. 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 HYSTERECTOMY PROCEDURE: HISTORICAL HYSTERECTOMY; COMMENT: pelvic peritonitis KNEE SURGERY PROCEDURE: HISTORICAL KNEE SURGERY; COMMENT: 1974 OTHER SURGICAL HISTORY PROCEDURE: NV LARYNGOSCOPY INDIRECT W/VOCAL CORD INJECTION Family History Problem Relation Name Age of Onset Blindness Neg Hx Cataracts Neg Hx Glaucoma Neg Hx Macular degeneration Neg Hx Strabismus Neg Hx Hyperlipidemia Neg Hx Diabetes Neg Hx Autoimmune disease Neg Hx Breast cancer Neg Hx Colon cancer Neg Hx Prostate cancer Neg Hx Coronary artery disease Neg Hx Mental illness Neg Hx Heart attack Neg Hx Heart failure Neg Hx Sleep apnea Neg Hx Hypertension Neg Hx Thyroid disease Neg Hx Social History Tobacco Use Smoking status: Former Current packs/day: 0.00 Types: Cigarettes Quit date: 09/18/2004 Years since quittin.7 Smokeless tobacco: Never Substance Use Topics Alcohol use: Yes Drug use: No Physical Exam Vitals: 05/28/25 1857 05/28/25 2119 05/29/25 0333 05/29/25 0732 BP: 101/61 137/54 116/60 (!) 158/70 BP Location: Left arm;Upper Left arm;Upper Left arm;Upper Patient Position: Lying Sitting Sitting Lying Pulse: 99 88 86 82 Resp: 18 18 20 20 Temp: 37.6 ??C (99.7 ??F) 37.1 ??C (98.7 ??F) 37.1 ??C (98.7 ??F) 36.6 ??C (97.8 ??F) TempSrc: Oral Oral Oral Oral SpO2: 97% 99% 98% 100% Weight: Height: General Appearance: No acute distress pale and sallow skin. Scattered bruising noted on her face and chest and arms (not new per patient) Skin: Dry Eyes: EOMI, no scleral icterus HENT: Normocephalic, atraumatic, moist mucous membranes Neck: Supple, normal range of motion Cardiovascular: Regular rate and rhythm, n systolic ejection murmur noted (baseline per patient (2+radial pulses Respiratory: Lungs clear to auscultation bilaterally, no respiratory distress, no wheezing or rhonchi Abdomen: Soft, non-tender, non-distended MSK: 1+ bilateral pretibial edema but no tenderness Neurologic: Awake, alert, no obvious deficits, moving all extremities Psychiatric: Appropriate, cooperative EKG/Rhythm Strip: Sinus rhythm with left axis deviation. Prolonged QTc noted. Incomplete right bundle branch block noted. Previous for comparison Results Results for orders placed or performed during the hospital encounter of 05/28/25 Comprehensive Metabolic Panel (CMP) Collection Time: 05/28/25 4:36 PM Result Value Ref Range Sodium 145 133 - 145 mmol/L Potassium 3.2 (L) 3.5 - 5.5 mmol/L Chloride 111 (H) 96 - 110 mmol/L CO2 29 21 - 32 mmol/L Anion Gap 5 3 - 11 Glucose 85 70 - 100 mg/dL BUN 17 5 - 25 mg/dL Creatinine 0.60 0.50 - 1.10 mg/dL eGFR 91 >=60 mL/min/1.73m2 BUN/Creatinine Ratio 28.3 Calcium 8.4 (L) 8.5 - 10.5 mg/dL AST (SGOT) 30 10 - 42 unit/L ALT (SGPT) 33 10 - 60 unit/L Alkaline Phosphatase 45 42 - 121 unit/L Total Protein 5.4 (L) 6.0 - 8.0 g/dL Albumin 3.5 3.2 - 5.0 g/dL Total Bilirubin 0.9 0.0 - 1.4 mg/dL Magnesium Collection Time: 05/28/25 4:36 PM Result Value Ref Range Magnesium 1.8 (L) 1.9 - 2.6 mg/dL Type and Screen Collection Time: 05/28/25 4:36 PM Result Value Ref Range ABO Group O Rh Type Positive Antibody Screen Negative CBC auto differential Collection Time: 05/28/25 4:36 PM Result Value Ref Range WBC 8.3 4.8 - 10.8 K/mcL RBC 2.90 (L) 3.80 - 4.80 M/mcL Hemoglobin 8.6 (L) 11.5 - 16.0 g/dL Hematocrit 27.8 (L) 35.0 - 47.0 % MCV 96.9 79.0 - 98.0 FL MCH 30.0 27.0 - 32.0 pcg MCHC 30.9 (L) 32.0 - 37.0 g/dL RDW 14.3 11.0 - 15.0 % Platelets 70 (L) 130 - 400 K/mcL MPV NRBC 0.0 <1.0 % NRBC Absolute 0.00 <0.10 K/mcL Manual differential Collection Time: 05/28/25 4:36 PM Result Value Ref Range Neutrophils % 86.0 % Lymphocytes % 10.0 % Monocytes % 4.0 % Eosinophils % 0.0 % Basophils % 0.0 % Neutrophils Absolute Manual 7.14 (H) 1.50 - 7.00 K/mcL Lymphocytes Absolute 0.83 (L) 1.00 - 5.00 K/mcL Monocytes Absolute Manual 0.33 0.20 - 1.00 K/mcL Eosinophils Absolute Manual 0.00 0.00 - 0.50 K/mcL Basophils Absolute Manual 0.00 0.00 - 0.20 K/mcL Rbc Morphology Present (A) Consistent with indices, Normal for Platelet Morphology - WAM See Note (A) Normal Ovalocytes Present 5 - 10% (A) (none) Schistocytes Present < 5% (A) (none) ECG 12 lead Collection Time: 05/28/25 5:15 PM Result Value Ref Range Ventricular Rate ECG 95 BPM Atrial Rate 95 BPM P-R Interval 150 ms QRS Duration 88 ms Q-T Interval 406 ms QTc 510 ms P Wave Ol[place] 51 degrees R Olney -32 degrees T Olney 48 degrees ECG Interpretation Normal sinus rhythm Left axis deviation Minimal voltage criteria for LVH, may be normal variant ( Sokolow-Grant ) Inferior infarct , age undetermined Prolonged QT No previous ECGs available Confirmed by GORDY MANCIA ([id number]) on 05/28/2025 8:11:30 PM Urinalysis with reflex microscopic Collection Time: 05/28/25 5:37 PM Result Value Ref Range Specific [place] Urine 1.026 1.003 - 1.030 pH, Urine 6.0 5.0 - 8.0 pH Leukocytes, Urine Trace (A) Negative Nitrite, Urine Negative Negative Protein, Urine 30 (A) <=Trace mg/dL Glucose, Urine Negative Negative mg/dL Ketones, Urine >=80 (A) Negative mg/dL Urobilinogen, Urine 1.0 0.2 - 1.0 mg/dL Bilirubin, Urine Negative Negative Blood, Urine Small (A) Negative RBC, Urine 12.5 (H) 0 - 4 /HPF WBC, Urine 5.8 (H) 0 - 4 /HPF Squamous Epithelial, Urine 54 0 - 60 /LPF Bacteria, Urine Negative Negative /HPF Hyaline Casts, Urine 3.6 (H) 0 - 3 /LPF Forrest urine culture tube Collection Time: 05/28/25 5:37 PM Result Value Ref Range Extra Tube Hold for add-ons. Basic metabolic panel Collection Time: 05/29/25 4:05 AM Result Value Ref Range Sodium 145 133 - 145 mmol/L Potassium 3.5 3.5 - 5.5 mmol/L Chloride 111 (H) 96 - 110 mmol/L CO2 30 21 - 32 mmol/L Anion Gap 4 3 - 11 Glucose 107 (H) 70 - 100 mg/dL BUN 14 5 - 25 mg/dL Creatinine 0.49 (L) 0.50 - 1.10 mg/dL eGFR 95 >=60 mL/min/1.73m2 BUN/Creatinine Ratio 28.6 Calcium 8.0 (L) 8.5 - 10.5 mg/dL Magnesium Collection Time: 05/29/25 4:05 AM Result Value Ref Range Magnesium 1.8 (L) 1.9 - 2.6 mg/dL CBC auto differential Collection Time: 05/29/25 4:05 AM Result Value Ref Range WBC 8.0 4.8 - 10.8 K/mcL RBC 2.80 (L) 3.80 - 4.80 M/mcL Hemoglobin 8.2 (L) 11.5 - 16.0 g/dL Hematocrit 26.8 (L) 35.0 - 47.0 % MCV 97.5 79.0 - 98.0 FL MCH 29.8 27.0 - 32.0 pcg MCHC 30.6 (L) 32.0 - 37.0 g/dL RDW 14.4 11.0 - 15.0 % Platelets 66 (L) 130 - 400 K/mcL MPV NRBC 0.0 <1.0 % NRBC Absolute 0.00 <0.10 K/mcL Neutrophils Relative 68.0 % Lymphocytes Relative 19.3 % Monocytes Relative 9.4 % Eosinophils Relative 2.1 % Basophils Relative 0.9 % Immature Granulocytes Relative 0.3 % Neutrophils Absolute 5.43 1.50 - 7.00 K/mcL Lymphocytes Absolute 1.54 1.00 - 5.00 K/mcL Monocytes Absolute 0.75 0.20 - 1.00 K/mcL Eosinophils Absolute 0.17 0.00 - 0.50 K/mcL Basophils Absolute 0.07 0.00 - 0.20 K/mcL Immature Granulocytes Absolute 0.02 0.00 - 0.03 K/mcL Lactate Collection Time: 05/29/25 4:05 AM Result Value Ref Range Lactate 0.7 0.4 - 2.0 mmol/L XR Chest 2 Views Final Result FINDINGS/IMPRESSION: No pneumonia or pulmonary edema. No pleural effusion or pneumothorax. Cardiac silhouette is mildly enlarged. Mild degenerative changes seen throughout the bones. -------- FINAL REPORT -------- Dictated By: ASA BOUCHER Dictated Date: 05/29/2025 08:17 ET Assigned Physician: ASA BOUCHER Reviewed and Electronically Signed By: ASA BOUCHER Signed Date: 05/29/2025 08:18 ET Workstation ID: [id number] Transcribed By: Self Edit Transcribed Date: 05/29/2025 08:17 ET Procedures Medical Decision Making 79-year-old female with a history of chronic thrombocytopenia who presents with weakness after being on antibiotics. She seems to be dehydrated clinically and does have low magnesium and potassium which are being repleted orally. X-ray was ordered. Patient being signed out at [address] Maddox for further diagnosis and treatment Labs and imaging ordered in ED independently reviewed by me. My interpretation of the labs and/or imaging per ED course. Medications Administered Medications lactated Ringer's infusion (125 mL/hr intravenous New Bag 05/29/25 0305) ALPRAZolam (XANAX) tablet 0.5 mg (0.5 mg oral Given 05/28/252303) magnesium oxide (MAG-OX) tablet 400 mg (400 mg oral Given 05/28/252303) ondansetron ODT (ZOFRAN-ODT) disintegrating tablet 4 mg (has no administration in time range) Or ondansetron (PF) (ZOFRAN) injection 4 mg (has no administration in time range) bisacodyL (DULCOLAX) EC tablet 10 mg (has no administration in time range) DULoxetine (CYMBALTA) DR capsule 30 mg (has no administration in time range) metoprolol succinate (TOPROL-XL) 24 Hour tablet 25 mg (has no administration in time range) morphine (MS CONTIN) 12 hr tablet 15 mg (has no administration in time range) oxyCODONE-acetaminophen (PERCOCET) 10-325 mg per tablet 1 tablet (has no administration in time range) potassium chloride (KLOR-CON M20) CR tablet 40 mEq (has no administration in time range) magnesium sulfate 2 gram/50 mL (4 %) IVPB 2 g (has no administration in time range) oxyCODONE-acetaminophen (PERCOCET) 5-325 mg per tablet 2 tablet (2 tablets oral Given 05/28/25 172) potassium chloride (KLOR-CON M20) CR tablet 40 mEq (40 mEq oral Given 05/28/252303) oxyCODONE-acetaminophen (PERCOCET) 10-325 mg per tablet 1 tablet (1 tablet oral Given 05/29/25 0144) Clinical Impressions as of 05/29/25 0946 Dehydration, mild Hypomagnesemia Hypokalemia External Charts Reviewed: Seen here in the ER at [facility] on 05/18 shortness of breathand a fall at home. She had an x-ray that showed potential pneumonia. Lab work was unremarkable with platelets at that time of 57 and H/H of 9.4/29.8. She was discharged with cephalexin and doxycycline He was admitted on 04/27 discharged on 04/29. Seen after a fall and weakness. She had a CT that showed atypical pneumonia and she was treated with Rocephin and azithromycin. She also has ischemic cardiomyopathy which was noted as being stable Prescription management: In addition to any applicable prescriptions, the patient was counseled by me regarding [id number] medications that can be used at home. Current Discharge Medication List Disposition: Still a patient at signout CLINICAL IMPRESSION: 1. Dehydration, mild 2. Hypomagnesemia 3. Hypokalemia 05/29/2025 MD Yaya Jacobo MD 05/28/25 1623 Yaya Carrasquillo MD 05/28/25 1657 Yaya Carrasquillo MD 05/28/25 1809 Yaya Carrasquillo MD 05/29/25 0946 documented in this encounter Plan of Treatment Scheduled Orders Name Type Priority Associated Diagnoses Order Schedule Gastrointestinal pathogens molecular study Microbiology Routine Once f or 1 Occurrences starting 05/29/2025 until 05/29/2025 Clostridium difficile toxin Microbiology Routine Once for 1 Occurrences starting 05/29/2025 until 05/29/2025 Scheduled Referrals Name Type Priority Associated Diagnoses Order Schedule Ambulatory referral to [facility] Referral Routine Dehydration 1 Occurrences starting 05/29/2025 until 05/29/2026 documented as of this encounter Procedures Procedure Name Priority Date/Time Associated Diagnosis Comments CBC WITH AUTO DIFFERENTIAL Routine 05/29/2025 4:05 AM EDT CBC AND DIFFERENTIAL Routine 05/29/2025 4:05 AM EDT MAGNESIUM Routine 05/29/2025 4:05 AM EDT LACTATE Routine 05/29/2025 4:05 AM EDT BASIC METABOLIC PANEL Routine 05/29/2025 4:05 AM EDT XR CHEST 2 VIEWS STAT 05/28/2025 6:04 PM EDT URINALYSIS WITH REFLEX MICROSCOPIC STAT 05/28/2025 5:37 PM EDT FORREST URINE CULTURE TUBE Routine 05/28/2025 5:37 PM EDT URINALYSIS WITH REFLEX MICROSCOPIC STAT 05/28/2025 5:37 PM EDT EXTRA TUBES Routine 05/28/2025 5:37 PM EDT ECG 12-LEAD STAT 05/28/2025 5:15 PM EDT MANUAL DIFFERENTIAL - SYSMEX WAM STAT 05/28/2025 4:36 PM EDT CBC WITH AUTO DIFFERENTIAL STAT 05/28/2025 4:36 PM EDT CBC AND DIFFERENTIAL STAT 05/28/2025 4:36 PM EDT TYPE AND SCREEN STAT 05/28/2025 4:36 PM EDT MAGNESIUM STAT 05/28/2025 4:36 PM EDT COMPREHENSIVE METABOLIC PANEL STAT 05/28/2025 4:36 PM EDT documented in this encounter Results * Lactate (05/29/2025 4:05 AM EDT) Pathologist [facility] Lactate 0.7 0.4 - 2.0 mmol/L LAB CHEMISTRY METHOD 05/29/2025 4:57 AM EDT [facility] Blood Venous blood specimen / Unknown Venipuncture / Unknown 05/29/2025 4:05 AM EDT 05/29/2025 4:30 AM EDT us Aylin JUNE LAB BLOOD ORDERABLES Fi nal Result [facility] [address] [place] [address], [place] [phone] * (ABNORMAL) CBC auto differential (05/29/2025 4:05 AM EDT) WBC 8.0 4.8 - 10.8 K/mcL LAB HEMETOLOGY METHOD 05/29/2025 5:28 AM EDT [facility] RBC 2.80(L) 3.80 - 4.80 M/mcL LAB HEMETOLOGY METHOD 05/29/2025 5:28 AM [facility] Hemoglobin 8.2(L) 11.5 - 16.0 g/dL LAB HEMETOLOGY METHOD 05/29/2025 5:28 AM [facility] Hematocrit 26.8(L) 35.0 - 47.0 % LAB HEMETOLOGY METHOD 05/29/2025 5:28 AM [facility] MCV 97.5 79.0 - 98.0 FL LAB HEMETOLOGY METHOD 05/29/2025 5:28 AM [facility] MCH 29.8 27.0 - 32.0 pcg LAB HEMETOLOGY METHOD 05/29/2025 5:28 AM [facility] MCHC 30.6(L) 32.0 - 37.0 g/dL LAB HEMETOLOGY METHOD 05/29/2025 5:28 AM [facility] RDW 14.4 11.0 - 15.0 % LAB HEMETOLOGY METHOD 05/29/2025 5:28 AM [facility] Platelets 66(L) 130 - 400 K/mcL LAB HEMETOLOGY METHOD 05/29/2025 5:28 AM [facility] Comment:reviewed by slide RAMILA LAB HEMETOLOGY METHOD 05/29/2025 5:28 AM [facility] Comment:Not Measured NRBC 0.0 <1.0 % LAB HEMETOLOGY METHOD 05/29/2025 5:28 AM [facility] NRBC Absolute 0.00 <0.10 K/mcL LAB HEMETOLOGY METHOD 05/29/2025 5:28 AM [facility] Neutrophils Relative 68.0 % LAB HEMETOLOGY METHOD 05/29/2025 5:28 AM [facility] Lymphocytes Relative 19.3 % LAB HEMETOLOGY METHOD 05/29/2025 5:28 AM EDT [facility] Monocytes Relative 9.4 % LAB HEMETOLOGY METHOD 05/29/2025 5:28 AM [facility] Eosinophils Relative 2.1 % LAB HEMETOLOGY METHOD 05/29/2025 5:28 AM EDT [facility] Basophils Relative 0.9 % LAB HEMETOLOGY METHOD 05/29[facility]2025 5:[facility] Immature Granulocytes Relative 0.3 % LAB HEMETOLOGY METHOD 05/29/2025 5:28 [facility] Neutrophils Absolute 5.43 1.50 - 7.00 K/mcL LAB HEMETOLOGY METHOD 05/29/2025 5:28 [facility] Lymphocytes Absolute 1.54 1.00 - 5.00 K/mcL LAB HEMETOLOGY METHOD 05/29/2025 5:28 [facility] Monocytes Absolute 0.75 0.20 - 1.00 K/mcL LAB HEMETOLOGY METHOD 05/29/2025 5:28 AM [facility] Eosinophils Absolute 0.17 0.00 - 0.50 K/mcL LAB HEMETOLOGY METHOD 05/29/2025 5:28 AM EDT [facility] Basophils Absolute 0.07 0.00 - 0.20 K/mcL LAB HEMETOLOGY METHOD 05/29/2025 5:28 AM [facility] Immature Granulocytes Absolute 0.02 0.00 - 0.03 K/mcL LAB HEMETOLOGY METHOD 05/29/2025 5:28 AM [facility] Blood Venous blood specimen / Unknown Venipuncture / Unknown 05/29/2025 4:05 AM EDT 05/29/2025 4:30 AM EDT Aylin JUNE LAB BLOOD ORDERABLES Fi nal Result Performing Organization Address [facility]/ZIP Co de Phone Number [facility] [address] [place] [address], [place] [phone] * (ABNORMAL) Magnesium (05/29/2025 4:05 AM EDT) Magnesium 1.8(L) 1.9 - 2.6 mg/dL LAB CHEMISTRY METHOD 05/29/2025 4:53 AM EDT [facility] Blood Venous blood specimen / Unknown Venipuncture / Unknown 05/29/2025 4:05 AM EDT 05/29/2025 4:30 AM EDT Alyin JUNE LAB BLOOD ORDERABLES Fi nal Result Performing Organization Address [facility]/ZIP Co de Phone Number [facility] [address] [place] [address], [place] [phone] * (ABNORMAL) Basic metabolic panel (05/29/2025 4:05 AM EDT) Pathologist [facility] Sodium 145 133 - 145 mmol/L LAB CHEMISTRY METHOD 05/29/2025 5:07 AM EDT [facility] Potassium 3.5 3.5 - 5.5 mmol/L LAB CHEMISTRY METHOD 05/29/2025 5:07 AM EDT [facility] Chloride 111(H) 96 - 110 mmol/L LAB CHEMISTRY METHOD 05/29/2025 5:07 AM [facility] CO2 30 21 - 32 mmol/L LAB CHEMISTRY METHOD 05/29/2025 5:07 AM EDT [facility] Anion Gap 4 3 - 11 LAB CHEMISTRY METHOD 05/29/2025 5:07 AM [facility] Glucose 107(H) 70 - 100 mg/dL LAB CHEMISTRY METHOD 05/29/2025 5:07 AM EDT [facility] BUN 14 5 - 25 mg/dL LAB CHEMISTRY METHOD 05/29/2025 5:07 AM EDT [facility] Creatinine 0.49(L) 0.50 - 1.10 mg/dL LAB CHEMISTRY METHOD 05/29/2025 5:07 AM EDT [facility] eGFR 95 >=60 mL/min/1. 73m2 LAB CHEMISTRY METHOD 05/29/2025 5:07 AM EDT [facility] Comment:Calculation based on the Chronic Kidney Disease Epidemiology Collaboration (CKD-EPI) equation refit without adjustment for race. BUN/Creatinine Ratio 28.6 LAB CHEMISTRY METHOD 05/29/2025 5:07 AM EDT [facility] Calcium 8.0(L) 8.5 - 10.5 mg/dL LAB CHEMISTRY METHOD 05/29/2025 5:07 AM EDT [facility] Blood Venous blood specimen / Unknown Venipuncture / Unknown 05/29/2025 4:05 AM EDT 05/29/2025 4:30 AM EDT us Aylin JUNE LAB BLOOD ORDERABLES Fi nal Result [facility] [address] [place] [address], * XR Chest 2 Views (05/28/2025 6:04 PM EDT) Anatomical Region Laterality Modality Body Radiographic Ewelina ging 05/29/2025 8:17 AM EDT Impressions 05/29/2025 8:18 AM EDT FINDINGS/IMPRESSION: No pneumonia or pulmonary edema. No pleural effusion or pneumothorax. Cardiac silhouette is mildly enlarged. Mild degenerative changes seen throughout the bones. -------- FINAL REPORT -------- Dictated By: ASA BOUCHER Dictated Date: 05/29/2025 08:17 ET Assigned Physician: ASA BOUCHER Reviewed and Electronically Signed By: TRAE, ASA Signed Date: 05/29/2025 08:18 ET Workstation ID: [id number] Transcribed By: Self Edit Transcribed Date: 05/29/2025 08:17 ET Narrative 05/29/2025 8:18 AM EDT XR CHEST 2 VIEWS INDICATION: Pneumonia TECHNIQUE: XR CHEST 2 VIEWS COMPARISON: No priors available. Procedure Note Asa Boucher MD - 05/29/2025 XR CHEST 2 VIEWS INDICATION: Pneumonia TECHNIQUE: XR CHEST 2 VIEWS COMPARISON: No priors available. IMPRESSION: FINDINGS/IMPRESSION: No pneumonia or pulmonary edema. No pleural effusionor pneumothorax. Cardiac silhouette is mildly enlarged. Milddegenerative changes seen throughout the bones. -------- FINAL REPORT -------- Dictated By: ASA BOUCHER Dictated Date: 05/29/2025 08:17 ET Assigned Physician: ASA BOUCHER Reviewed and Electronically Signed By: ASA BOUCHER Signed Date: 05/29/2025 08:18 ET Workstation ID: [id number] Transcribed By: Self Edit Transcribed Date: 05/29/2025 08:17 ET Yaya Carrasquillo MD IMG XR PROCEDURES Final Resu lt * Forrest urine culture tube (05/28/2025 5:37 PM EDT) [facility] Extra Tube Hold for add-ons. 05/28/2025 7:01 PM EDT [facility] Comment:Auto resulted. Urine Urine specimen obtained by clean catch procedure / Unknown 05/28/2025 5:37 PM EDT 05/28/2025 5:52 PM EDT us Yaya Carrasquillo MD LAB URINE ORDERABLES Final R esult [facility] [address] [place] [address], [place] [phone] * (ABNORMAL) Urinalysis with reflex microscopic (05/28/2025 5:37 PM EDT) [facility] Specific [place] Urine 1.026 1.003 - 1.030 LAB URINALYSIS - AUTOMATED METHOD 05/28/2025 6:02 PM [facility] pH, Urine 6.0 5.0 - 8.0 pH LAB URINALYSIS - AUTOMATED METHOD 05/28/2025 6:02 PM [facility] Leukocytes, Urine Trace(A) Negative LAB URINALYSIS - AUTOMATED METHOD 05/28/2025 6:02 PM [facility] Nitrite, Urine Negative Negative LAB URINALYSIS - AUTOMATED METHOD 05/28/2025 6:02 PM [facility] Protein, Urine 30(A) <=Trace mg/dL LAB URINALYSIS - AUTOMATED METHOD 05/28/2025 6:02 PM [facility] Glucose, Urine Negative Negative mg/dL LAB URINALYSIS - AUTOMATED METHOD 05/28/2025 6:02 PM [facility] Ketones, Urine >=80(A) Negative mg/dL LAB URINALYSIS - AUTOMATED METHOD 05/28/2025 6:02 PM [facility] Urobilinogen, Urine 1.0 0.2 - 1.0 mg/dL LAB URINALYSIS - AUTOMATED METHOD 05/28/2025 6:02 PM [facility] Bilirubin, Urine Negative Negative LAB URINALYSIS - AUTOMATED METHOD 05/28/2025 6:02 PM [facility] Blood, Urine Small(A) Negative LAB URINALYSIS - AUTOMATED METHOD 05/28/2025 6:02 PM [facility] RBC, Urine 12.5(H) 0 - 4 /HPF LAB URINALYSIS - AUTOMATED METHOD 05/28/2025 6:02 PM [facility] WBC, Urine 5.8(H) 0 - 4 /HPF LAB URINALYSIS - AUTOMATED METHOD 05/28/2025 6:02 PM [facility] Squamous Epithelial, Urine 54 0 - 60 /LPF LAB URINALYSIS - AUTOMATED METHOD 05/28/2025 6:02 PM EDT [facility] Bacteria, Urine Negative Negative /HPF LAB URINALYSIS - AUTOMATED METHOD 05/28/2025 6:02 PM EDT [facility] Hyaline Casts, Urine 3.6(H) 0 - 3 /LPF LAB URINALYSIS - AUTOMATED METHOD 05/28/2025 6:02 PM EDT [facility] Urine Urine specimen obtained by clean catch procedure / Unknown Non-blood Collection / Unknown 05/28/2025 5:37 PM EDT 05/28/2025 5:52 PM EDT us Yaya Carrasquillo MD LAB URINE ORDERABLES Final R esult Performing Organization Address City/[facility]/ZIP Co de Phone Number [facility] [address] [place] [address], [place] [phone] * ECG 12 lead (05/28/2025 5:15 PM EDT) Ventricular Rate ECG 95 BPM GEMUSE Atrial Rate 95 BPM GEMUSE P-R Interval 150 ms GEMUSE QRS Duration 88 ms GEMUSE Q-T Interval 406 ms GEMUSE QTc 510 ms GEMUSE P Wave [place] 51 degrees GEMUSE R [place] -32 degrees GEMUSE T [place] 48 degrees GEMUSE ECG Interpretation Normal sinus rhythm Left axis deviation Minimal voltage criteria for LVH, may be normal variant ( Sokolow-Grant ) Inferior infarct , age undetermined Prolonged QT No previous ECGs available Confirmed by GORDY MANCIA ([id number]) on 05/28/2025 8:11:30 PM GEMUSE 05/28/2025 5:15 PM EDT 05/28/2025 8:11 PM EDT us Yaay Carrasquillo MD ECG ORDERABLES Final Result Performing Organization Address City/[facility]/ZIP Co de Phone Number GEMUSE * (ABNORMAL) Manual differential (05/28/2025 4:36 PM EDT) Neutrophils % 86.0 % LAB HEMETOLOGY METHOD 05/28/2025 5:29 PM EDT [facility] Lymphocytes % 10.0 % LAB HEMETOLOGY METHOD 05/28[facility]2025 5:[facility] Monocytes % 4.0 % LAB HEMETOLOGY METHOD 05/28/2025 5:29 [facility] Eosinophils % 0.0 % LAB HEMETOLOGY METHOD 05/28/2025 5:29 PM EDT [facility] Basophils % 0.0 % LAB HEMETOLOGY METHOD 05/28/2025 5:29 PM [facility] Neutrophils Absolute Manual 7.14(H) 1.50 - 7.00 K/mcL LAB HEMETOLOGY METHOD 05/28/2025 5:29 PM [facility] Lymphocytes Absolute 0.83(L) 1.00 - 5.00 K/mcL LAB HEMETOLOGY METHOD 05/28/2025 5:29 [facility] Monocytes Absolute Manual 0.33 0.20 - 1.00 K/mcL LAB HEMETOLOGY METHOD 05/28/2025 5:29 PM [facility] Eosinophils Absolute Manual 0.00 0.00 - 0.50 K/mcL LAB HEMETOLOGY METHOD 05/28/2025 5:29 PM [facility] Basophils Absolute Manual 0.00 0.00 - 0.20 K/mcL LAB HEMETOLOGY METHOD 05/28/2025 [facility] R[facility] Morphology Present( A) Consistent with indices, Normal for LAB HEMETOLOGY METHOD 05/28/2025 5:29 [facility] Comment:RBC: Morphology agre es with CBC Platelet Morphology - WAM See Note(A) Normal LAB HEMETOLOGY METHOD 05/28/2025 5:29 PM EDT [facility] Comment:PLT: Large platelets seen Ovalocytes Present 5 - 10%(A) (none) LAB HEMETOLOGY METHOD 05/28/2025 5:29 PM EDT [facility] Schistocytes Present < 5%(A) (none) LAB HEMETOLOGY METHOD 05/28/2025 5:29 PM EDT [facility] Blood Venous blood specimen / Unknown Venipuncture / Unknown 05/28/2025 4:36 PM EDT 05/28/2025 4:54 PM EDT us Yaya Carrasquillo MD LAB BLOOD ORDERABLES Final R esult [facility] [address] [place] [address], [place] [phone] * (ABNORMAL) CBC auto differential (05/28/2025 4:36 PM EDT) WBC 8.3 4.8 - 10.8 K/mcL LAB HEMETOLOGY METHOD 05/28/2025 5:29 PM EDT [facility] RBC 2.90(L) 3.80 - 4.80 M/mcL LAB HEMETOLOGY METHOD 05/28/2025 5:29 PM EDT [facility] Hemoglobin 8.6(L) 11.5 - 16.0 g/dL LAB HEMETOLOGY METHOD 05/28/2025 5:29 PM EDT [facility] Hematocrit 27.8(L) 35.0 - 47.0 % LAB HEMETOLOGY METHOD 05/28/2025 5:29 PM EDT [facility] MCV 96.9 79.0 - 98.0 FL LAB HEMETOLOGY METHOD 05/28/2025 5:29 PM EDT [facility] MCH 30.0 27.0 - 32.0 pcg LAB HEMETOLOGY METHOD 05/28/2025 5:29 PM EDT [facility] MCHC 30.9(L) 32.0 - 37.0 g/dL LAB HEMETOLOGY METHOD 05/28/2025 5:29 PM EDT [facility] RDW 14.3 11.0 - 15.0 % LAB HEMETOLOGY METHOD 05/28/2025 5:29 PM EDT [facility] Platelets 70(L) 130 - 400 K/mcL LAB HEMETOLOGY METHOD 05/28/2025 5:29 PM EDT [facility] Comment:Large platelets seen MPV LAB HEMETOLOGY METHOD 05/28/2025 5:29 PM EDT [facility] Comment:Not Measured NRBC 0.0 <1.0 % LAB HEMETOLOGY METHOD 05/28/2025 5:29 PM EDT [facility] NRBC Absolute 0.00 <0.10 K/mcL LAB HEMETOLOGY METHOD 05/28/2025 5:29 PM EDT [facility] Blood Venous blood specimen / Unknown Venipuncture / Unknown 05/28/2025 4:36 PM EDT 05/28/2025 4:54 PM EDT us Yaya Carrasquillo MD LAB BLOOD ORDERABLES Final R esult [facility] [address] [place] [address], * Type and Screen (05/28/2025 4:36 PM EDT) ABO Group O 05/28/2025 8:11 PM EDT [facility] Rh Type Positive 05/28/2025 8:11 PM EDT [facility] Antibody Screen Negative 05/28/2025 8:11 PM EDT [facility] Blood Venous blood specimen / Unknown Venipuncture / Unknown 05/28/2025 4:36 PM EDT 05/28/2025 4:54 PM EDT us Yaya Carrasquillo MD LAB BLOOD BANK TEST ORDERABL ES Final Result Performing Organization Address [facility]/ZIP Co de Phone Number [facility] [address] [place] [address], [place] [phone] * (ABNORMAL) Magnesium (05/28/2025 4:36 PM EDT) Magnesium 1.8(L) 1.9 - 2.6 mg/dL LAB CHEMISTRY METHOD 05/28/2025 5:25 PM EDT [facility] Blood Venous blood specimen / Unknown Venipuncture / Unknown 05/28/2025 4:36 PM EDT 05/28/2025 4:54 PM EDT us Yaya Carrasquillo MD LAB BLOOD ORDERABLES Final R esult Performing Organization Address [facility]/ZIP Co de Phone Number [facility] [address] [place] [address], [place] [phone] * (ABNORMAL) Comprehensive Metabolic Panel (CMP) (05/28/2025 4:36 PM EDT) Sodium 145 133 - 145 mmol/L LAB CHEMISTRY METHOD 05/28/2025 5:53 PM EDT [facility] Potassium 3.2(L) 3.5 - 5.5 mmol/L LAB CHEMISTRY METHOD 05/28/2025 5:53 PM EDT [facility] Chloride 111(H) 96 - 110 mmol/L LAB CHEMISTRY METHOD 05/28/2025 5:53 PM EDT [facility] CO2 29 21 - 32 mmol/L LAB CHEMISTRY METHOD 05/28/2025 5:53 PM EDT [facility] Anion Gap 5 3 - 11 LAB CHEMISTRY METHOD 05/28/2025 5:53 PM [facility] Glucose 85 70 - 100 mg/dL LAB CHEMISTRY METHOD 05/28/2025 5:53 PM [facility] BUN 17 5 - 25 mg/dL LAB CHEMISTRY METHOD 05/28/2025 5:53 PM [facility] Creatinine 0.60 0.50 - 1.10 mg/dL LAB CHEMISTRY METHOD 05/28/2025 5:53 PM [facility] eGFR 91 >=60 mL/min/1. 73m2 LAB CHEMISTRY METHOD 05/28/2025 5:53 PM [facility] Comment:Calculation based on the Chronic Kidney Disease Epidemiology Collaboration (CKD-EPI) equation refit without adjustment for race. BUN/Creatinine Ratio 28.3 LAB CHEMISTRY METHOD 05/28/2025 5:53 PM [facility] Calcium 8.4(L) 8.5 - 10.5 mg/dL LAB CHEMISTRY METHOD 05/28/2025 5:53 PM [facility] AST (SGOT) 30 10 - 42 unit/L LAB CHEMISTRY METHOD 05/28/2025 5:53 PM [facility] ALT (SGPT) 33 10 - 60 unit/L LAB CHEMISTRY METHOD 05/28/2025 5:53 PM [facility] Alkaline Phosphatase 45 42 - 121 unit/L LAB CHEMISTRY METHOD 05/28/2025 5:53 PM [facility] Total Protein 5.4(L) 6.0 - 8.0 g/dL LAB CHEMISTRY METHOD 05/28/2025 5:53 PM [facility] Albumin 3.5 3.2 - 5.0 g/dL LAB CHEMISTRY METHOD 05/28/2025 5:53 PM [facility] Total Bilirubin 0.9 0.0 - 1.4 mg/dL LAB CHEMISTRY METHOD 05/28/2025 5:53 PM [facility] Blood Venous blood specimen / Unknown Venipuncture / Unknown 05/28/2025 4:36 PM EDT 05/28/2025 4:54 PM EDT Yaya Carrasquillo MD LAB BLOOD ORDERABLES Final R esult [facility] [address] [place] [address], documented in this encounter Visit Diagnoses Diagnosis Dehydration- Primary Dehydration, mild Dehydration Hypomagnesemia Disorders of magnesium metabolism Hypokalemia Hypopotassemia Dehydration documented in this encounter Admitting Diagnoses Diagnosis Dehydration documented in this encounter Administered Medications Inactive Administered Medications - up to 3 most recent administrations Medication Order MAR Action Action Date Dose Rate Site ALPRAZolam (XANAX) tablet 0.5 mg 0.5 mg, oral, Nightly PRN, anxiety, Starting on Mon05/28/25 at 2250 Given 05/28/2025 11:04 PM EDT 0.5 mg bisacodyL (DULCOLAX) EC tablet 10 mg 10 mg, oral, Daily PRN, constipation, Starting on Mon05/29/25 at 0030, 1st line for treatment of constipation - give scheduled if no bowel movement in past 24 hours. Do not crush, chew, or split. DULoxetine (CYMBALTA) DR capsule 30 mg 30 mg, oral, 2 times daily, First dose on Mon05/29/25 at 0900, Do not crush or chew. Given 05/29/2025 10:00 AM EDT 30 mg lactated Ringer's infusion 125 mL/hr, intravenous, Continuous, Starting on Mon05/28/25 at 1626 New Bag 05/29/2025 10:00 AM EDT 125 mL/hr 125 mL/hr New Bag 05/29/2025 3:05 AM EDT 125 mL/hr 125 mL/hr New Bag 05/28/2025 5:21 PM EDT 125 mL/hr 125 mL/hr magnesium oxide (MAG-OX) tablet 400 mg 400 mg, oral, Daily, First dose on Mon05/28/25 at 2252 Given 05/28/2025 11:04 PM EDT 400 mg magnesium sulfate 2 gram/50 mL (4 %) IVPB 2 g 2 g, intravenous, at 25 mL/hr, Administer over 2 Hours, Once, On Eli 05/29/25 at 0830, For 1 dose New Bag 05/29/2025 10:00 AM EDT 2 g 25 mL/hr metoprolol succinate (TOPROL-XL) 24 Hour tablet 25 mg 25 mg, oral, Daily, First dose on Eli 05/29/25 at 0900, Do not crush or chew. Given 05/29/2025 10:00 AM EDT 25 mg ondansetron (PF) (ZOFRAN) injection 4 mg 4 mg, intravenous, Every 8 hours PRN, vomiting, nausea, Starting on Eli 05/29/25 at 0030, -ONLY give IV if patient is unable to take orally. -If inadequate response within 30 minutes, proceed to next-line agent or contact provider if no further options ordered. ondansetron ODT (ZOFRAN-ODT) disintegrating tablet 4 mg 4 mg, oral, Every 8 hours PRN, vomiting, nausea, Starting on Eli 05/29/25 at 0030, -Give IV if patient is unable to take orally. -If inadequate response within 30 minutes, proceed to next-line agent or contact provider if no further options ordered. For ODT tablets: -Do not remove from blister pack until just before administering. -Patient should allow tablet to dissolve on tongue. oxyCODONE-acetaminophen (PERCOCET) 10-325 mg per tablet 1 tablet 1 tablet, oral, Once, On Eli 05/29/25 at 0106, For 1 dose Given 05/29/2025 1:44 AM EDT 1 tablet oxyCODONE-acetaminophen (PERCOCET) 10-325 mg per tablet 1 tablet 1 tablet, oral, Every 6 hours PRN, severe pain, Starting on Eli 05/29/25 at 0248, For 5 days Given 05/29/2025 10:15 AM EDT 1 tablet oxyCODONE-acetaminophen (PERCOCET) 5-325 mg per tablet 2 tablet 2 tablet, oral, Once, On Mon05/28/25 at 1645, For 1 dose Given 05/28/2025 5:21 PM EDT 2 tablets potassium chloride (KLOR-CON M20) CR tablet 40 mEq 40 mEq, oral, Once, On Mon05/28/25 at 2252, For 1 dose, Tablet may be swallowed whole (do not crush/chew/suck on) OR broken in half and each half swallowed separately OR dissolved (whole tablet) in ~4 ounces of water (allow ~2 minutes to dissolve, stir well and administer immediately). Given 05/28/2025 11:04 PM EDT 40 mEq potassium chloride (KLOR-CON M20) CR tablet 40 mEq 40 mEq, oral, Once, On Mon05/29/25 at 0830, For 1 dose, Tablet may be swallowed whole (do not crush/chew/suck on) OR broken in half and each half swallowed separately OR dissolved (whole tablet) in ~4 ounces of water (allow ~2 minutes to dissolve, stir well and administer immediately). Given 05/29/2025 10:00 AM EDT 40 mEq documented in this encounter Historical Medications * This list may reflect changes made after this encounter. metoprolol succinate (TOPROL-XL) 25 mg 24 hr tablet Take 1 tablet (25 mg total) by mouth daily. 02/10/2021 morphine (MS CONTIN) 15 mg 12 hr tablet Take 1 tablet (15 mg total) by mouth 2 times daily. Max Daily Amount: 30 mg 05/06/2025 06/03/2025 oxyCODONE-acetami nophen (PERCOCET) 10-325 mg per tablet Take 1 tablet by mouth every 6 hours as needed. Max Daily Amount: 4 tablets 08/28/2024 06/03/2025 DULoxetine (CYMBALTA) [address] capsule Take 1 capsule (30 mg total) by mouth 2 times daily. 04/04/2025 04/04/2026 ALPRAZolam (XANAX) 0.5 mg tablet Take 1 tablet (0.5 mg total) by mouth every 8 hours. 10/05/2015 added in this encounter Active and Recently Administered Medications Times are shown in EDT. Scheduled Medication Order 05/27/2025 05/28/2025 05/29/2025 DULoxetine (CYMBALTA) DR capsule 30 mg 30 mg, oral, 2 times daily, First dose on Eli 9/11/25 at 0900, Do not crush or chew. 1000 (Given - Provid er: Toi Hernandez RN) magnesium oxide (MAG-OX) tablet 400 mg 400 mg, oral, Daily, First dose on Mon05/28/25 at 2252 2304 (Given - Provider: Natalie Lima, SUNSHINE) magnesium sulfate 2 gram/50 mL (4 %) IVPB 2 g (COMPLETED) 2 g, intravenous, at 25 mL/hr, Administer over 2 Hours, Once, On Mon05/29/25 at 0830, For 1 dose 1000 (New Bag - Provider: Toi Hernandez RN)1200 (Due: Stopped - Provider: Toi Hernandez RN) metoprolol succinate (TOPROL-XL) 24 Hour tablet 25 mg 25 mg, oral, Daily, First dose on Mon05/29/25 at 0900, Do not crush or chew. 1000 (Given - Provid er: Toi Hernandez RN) morphine (MS CONTIN) 12 hr tablet 15 mg 15 mg, oral, Every 12 hours scheduled, First dose on Mon05/29/25 at 0900, For 5 days, Do not crush, chew, or split. 1000 (Not Given - Provider: Toi Hernandez RN - Reason: Patient/Resident/Agent refused - education provided ) oxyCODONE-acetaminophen (PERCOCET) 10-325 mg per tablet 1 tablet (COMPLETED) 1 tablet, oral, Once, On Mon05/29/25 at 0106, For 1 dose 0144 (Given - Provid er: Natalie Lima RN) oxyCODONE-acetaminophen (PERCOCET) 5-325 mg per tablet 2 tablet (COMPLETED) 2 tablet, oral, Once, On Mon05/28/25 at 1645, For 1 dose 1721 (Given - Provider: Joyce Woods RN) potassium chloride (KLOR-CON M20) CR tablet 40 mEq (COMPLETED) 40 mEq, oral, Once, On Mon05/28/25 at 2252, For 1 dose, Tablet may be swallowed whole (do not crush/chew/suck on) OR broken in half and each half swallowed separately OR dissolved (whole tablet) in ~4 ounces of water (allow ~2 minutes to dissolve, stir well and administer immediately). 2304 (Given - Provider: Natalie Lima, SUNSHINE) potassium chloride (KLOR-CON M20) CR tablet 40 mEq (COMPLETED) 40 mEq, oral, Once, On Mon05/29/25 at 0830, For 1 dose, Tablet may be swallowed whole (do not crush/chew/suck on) OR broken in half and each half swallowed separately OR dissolved (whole tablet) in ~4 ounces of water (allow ~2 minutes to dissolve, stir well and administer immediately). 1000 (Given - Provid er: Toi Hernandez RN) Continuous Medication Order 05/27/2025 05/28/2025 05/29/2025 lactated Ringer's infusion (CANCELED) 125 mL/hr, intravenous, Continuous, Starting on Mon05/28/25 at 1626 1721 (New Bag - Provider: Joyce Woods RN) 0146 (Stopped - Provider: Natalie Lima RN)0305 (New Bag - Provider: Natalie Lima RN)1000 (New Bag - Provider: Toi Hernandez RN)1203 (Due: Stopped - Provider: SHAYLEE Ventura) PRN Medication Order 05/27/2025 05/28/2025 05/29/2025 ALPRAZolam (XANAX) tablet 0.5 mg 0.5 mg, oral, Nightly PRN, anxiety, Starting on Mon05/28/25 at 2250 2304 (Given - Provider: Natalie Lima, SUNSHINE) bisacodyL (DULCOLAX) EC tablet 10 mg 10 mg, oral, Daily PRN, constipation, Starting on Mon05/29/25 at 0030, 1st line for treatment of constipation - give scheduled if no bowel movement in past 24 hours. Do not crush, chew, or split. ondansetron (PF) (ZOFRAN) injection 4 mg(Linked Group 1) 4 mg, intravenous, Every 8 hours PRN, vomiting, nausea, Starting on Mon05/29/25 at 0030, -ONLY give IV if patient is unable to take orally. -If inadequate response within 30 minutes, proceed to next-line agent or contact provider if no further options ordered. ondansetron ODT (ZOFRAN-ODT) disintegrating tablet 4 mg(Linked Group 1) 4 mg, oral, Every 8 hours PRN, vomiting, nausea, Starting on Eli 05/29/25 at 0030, -Give IV if patient is unable to take orally. -If inadequate response within 30 minutes, proceed to next-line agent or contact provider if no further options ordered. For ODT tablets: -Do not remove from blister pack until just before administering. -Patient should allow tablet to dissolve on tongue. oxyCODONE-acetaminophen (PERCOCET) 10-325 mg per tablet 1 tablet 1 tablet, oral, Every 6 hours PRN, severe pain, Starting on Eli 05/29/25 at 0248, For 5 days 1015 (Given - Provid er: Toi Hernandez RN) Linked Groups Order Group 1: ondansetron ODT (ZOFRAN-ODT) disintegrating tablet 4 mgJump to med 4 mg, oral, Every 8 hours PRN, vomiting, nausea, Starting on Eli 05/29/25 at 0030, -Give IV if patient is unable to take orally. -If inadequate response within 30 minutes, proceed to next-line agent or contact provider if no further options ordered. For ODT tablets: -Do not remove from blister pack until just before administering. -Patient should allow tablet to dissolve on tongue. Or ondansetron (PF) (ZOFRAN) injection 4 mgJump to med 4 mg, intravenous, Every 8 hours PRN, vomiting, nausea, Starting on Eli 05/29/25 at 0030, -ONLY give IV if patient is unable to take orally. -If inadequate response within 30 minutes, proceed to next-line agent or contact provider if no further options ordered. documented in this encounter Orders Medications Ordered That Amrik ht Not Have Been Administered Count Last Ordered Date First Ordered Date bisacodyL (DULCOLAX) EC tablet 10 mg 1 05/19 morphine (MS CONTIN) 12 hr tablet 15 mg 1 0 05/29/2025 ondansetron (PF) (ZOFRAN) injection 4 mg 1 05/29/2025 ondansetron ODT (ZOFRAN-ODT) disintegrating tablet 4 mg 1 05/29/2025 Admission Count Last Ordered Date First Orde red Date INITIATE OBSERVATION STATUS 1 05/28/2025 Discharge Count Last Ordered Date First Orde red Date DISCHARGE PATIENT 1 05/29/2025 documented in this encounter Additional Health Concerns Infection Onset Date Last Indicated Resolved Time Gastrointestinal Rule-Out 05/29/2025 05/29/2025 C. difficile Rule-Out 05/29/2025 05/29/2025 documented as of this encounter Care Teams Mule Developer Relationship Specialty Start Date End Date Name, MD [address] [place] [address] PCP - General Internal Medicine 05/28/25 documented as of this encounter
--- NOTE | 2025-05-30 | ECG_ITS ---
Test Reason : CHEST PAIN Blood Pressure : */* mmHG Vent. 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
--- NOTE | ~2025-05-30 | CT_ITS ---
EXAMINATION: CT ABDOMEN AND PELVIS WITHOUT AND WITH CONTRAST CLINICAL INFORMATION: Lower abdominal pain, black stools COMPARISON: None available. TECHNIQUE: Multidetector volumetric imaging was performed of the abdomen and pelvis before and after the IV administration of mL of Omnipaque 300 intravenous contrast. Sagittal and coronal reformatted images were obtained on the technologist's workstation. This CT examination was performed using dose optimization techniques as appropriate, variously including the following: *Automated exposure control *Adjustment of mA and/or kV according to patient size (this includes techniques or standardized protocols for targeted exams where dose is matched to indication/reason for exam; i.e. extremities or head) *Use of iterative reconstruction technique DLP: 1385 mGy*cm FINDINGS: LUNG BASES: There is a heterogeneous solid nodular density in the right middle lobe contacting mediastinal/pericardial fat measures 12 x 18 mm (sagittal CT #7 image 22/138). There is mild dependent atelectasis. LIVER, GALLBLADDER, AND BILIARY TREE: The liver is normal in size, shape, and attenuation. No focal hepatic lesion or biliary ductal dilatation is present. There are layering high density stones are present in the dependent portion of the gallbladder. There is no gallbladder wall thickening or biliary ductal dilation. PANCREAS: Unremarkable SPLEEN: Unremarkable ADRENAL GLANDS: 13 mm left adrenal gland nodule is stable since 2020 CT. Right adrenal gland is unremarkable. KIDNEYS AND URETERS: Bilateral parapelvic and simple left renal cysts are present. BLADDER: Unremarkable GASTROINTESTINAL TRACT: No evidence of contrast extravasation or high density luminal content is on post contrast images are evident on this study. Focal high attenuation in the sigmoid colon is probably related to calcification of a pseudodiverticula. The appendix is not clearly visualized. ABDOMINAL WALL: No significant hernia is appreciated. LYMPH NODES: Normal VASCULAR: There is moderate vascular calcification. The left common iliac artery diameter measures up to 20 mm. PELVIC VISCERA: Uterus is surgically absent. OSSEOUS STRUCTURES: Severe multilevel degenerative changes are present in the mid and lower thoracic spine. Additionally, there is grade 1, nearly grade 2 anterolisthesis at L4-5 with severe facet osteoarthritis. There is severe osteoarthritis of the right hip joint with gross deformity of the femoral head and moderate degenerative changes in the left hip. CT/CT gi bleed abd pel wo/w IVcon IMPRESSION: 12 x 18 mm solid nodular density in the right middle lobe contacting mediastinal/pericardial fat. There is incompletely covered on this CT. Review a prior CT chest from June 27, 2021 shows that a similar abnormality has been present since at least then favoring a benign etiology such as rounded atelectasis. No evidence of acute gastrointestinal bleeding 13 mm left adrenal nodule has been stable since 2020 favoring a benign origin. Cholelithiasis. End-stage degenerative changes of the right hip joint. Severe degenerative changes in the mid and lower lumbar spine. Fleischner guidelines were followed. Electronically signed by: Theron Varma MD 05/30/2025 03:29 PM EDT
[2025-05-30 10:44] VITALS: BP 151/64; BP 156/57; PULSE 81; PULSE 84; RESP 16; TEMP 37.3; O2SAT 96; BMI 28.5
--- NOTE | 2025-05-30 11:27 | ECG_ITS ---
Test Reason : ABD PAIN Blood Pressure : */* mmHG Vent. 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
[2025-05-30 11:54] VITALS: BP 162/78; PULSE 86; RESP 16; TEMP 37.7; O2SAT 94
[2025-05-30 12:00] LABS: OBS1 POSITIVE (NEGATIVE)
[2025-05-30 12:01] LABS: OBS Int Ctl Valid YES
[2025-05-30 12:03] LABS: Hematocrit 26.5 % (37.0-47.0); Hemoglobin 8.5 g/dl (12.0-16.0); Mean Corpuscular HGB Conc 32.1 g/dl (31.0-35.0); Mean Corpuscular Hemoglobin 30.4 pg (27.0-33.0); Mean Corpuscular Volume 94.6 fL (80.0-98.0); NRBC Abs Auto 0.000 X10*3/uL (0.0-0.012); NRBC Pct Auto 0.0 /100WBC (0.0-0.2); PLT CLUMP 1; Red Blood Count 2.80 X10*6/uL (4.20-5.50)
[2025-05-30 12:04] LABS: Platelet Count 77 X10*3/uL (160-400); WBC ABN SCTR FOR CBC 1; White Blood Count 8.0 X10*3/uL (4.8-10.8)
[2025-05-30 12:06] LABS: INTERNATIONAL NORM RATIO 1.2 (0.9-1.1); Prothrombin Time 14.2 SEC (10.9-12.4)
[2025-05-30 12:08] LABS: Partial Thromboplastin Time 29.3 SEC (26.7-34.1)
[2025-05-30 12:17] LABS: Alanine Aminotransferase 24 U/L (0-31); Albumin Level 3.8 g/dL (3.5-5.0); Alkaline Phosphatase 45 U/L (39-117); Anion Gap 10 (12-20); Aspartate Amino Transferase 25 U/L (5-31); Blood Urea Nitrogen 11 mg/dL (9-16); Calcium 8.2 mg/dL (8.4-10.2); Carbon Dioxide 29 mmol/L (22-29); Chloride 108 mmol/L (96-108); Creatinine Clr Calc Pharmacy 72.8; Estimated Glomerular Filt Rate > 60; Lipase 10 U/L (8-78); Potassium 4.3 mmol/L (3.3-5.1); Sodium 143 mmol/L (135-145); Total Protein 5.4 g/dL (6.5-8.0)
--- NOTE | 2025-05-30 12:23 | ED.GENADULT ---
HPI - General Adult General Chief complaint: Abdominal Pain Stated complaint: ABD PAIN X1W,SMALL BLACK BM TODAY PER EMS Time Seen by Provider: 05/30/25 11:01 Source: patient Mode of arrival: ambulatory Limitations: no limitations History of Present Illness ED Provider: Alfie Gilman HPI narrative: 79-year-old female history of ITP multiple blood transfusions presents to the ED abdominal pain for 1 week with diarrhea and dark tarry stools. Patient denies being on any blood thinners. Patient states no recent trauma fever or chills. Related Data Home Medications ?Medication ?Instructions ?Recorded ?Confirmed alprazolam 0.5 mg tablet 1 tab PO TID PRN Anxiety 12/07/20 05/30/25 cholecalciferol (vitamin D3) 25 1,000 unit PO DAILY 02/07/21 05/30/25 mcg (1,000 unit) capsule (Vitamin D3) albuterol sulfate 2.5 mg/3 mL 2.5 mg inhalation Q6H PRN Wheezing 01/27/22 05/30/25 (0.083 %) solution for nebulization cyanocobalamin (vitamin B-12) 1,000 mcg PO DAILY 01/27/22 05/30/25 1,000 mcg tablet vitamin A 2,400 mcg capsule 2,400 mcg PO DAILY 01/27/22 05/30/25 metoprolol succinate 25 mg 25 mg PO DAILY 05/17/22 05/30/25 tablet,extended release 24 hr (Toprol XL) biotin 10,000 mcg chewable tablet 10,000 mcg PO DAILY 12/07/22 05/30/25 (Hair, Skin and Nails (biotin)) ondansetron HCl 4 mg tablet 1 tab PO Q8H PRN Nausea And 12/07/22 05/30/25 Vomiting albuterol sulfate 90 mcg/actuation 2 puff inhalation Q4H PRN Wheezing 06/12/24 05/30/25 aerosol inhaler ferrous sulfate 325 mg (65 mg 325 mg PO DAILY 04/27/25 05/30/25 iron) tablet oxycodone-acetaminophen 10 mg-325 1 tab PO QID PRN Pain 05/30/25 05/30/25 mg tablet Allergies Allergy/AdvReac Type Severity Reaction Status Date / Time amoxicillin Allergy Unknown Hives Verified 05/30/25 10:49 Penicillins (PENICILLINS) Allergy Unknown Hives Verified 05/30/25 10:49 Sulfa (Sulfonamide Allergy Unknown Hives Verified 05/30/25 10:49 Antibiotics) (SULFA (SULFONAMIDE ANTIBIOTICS)) Review of Systems Review of Systems: Abdominal pain diarrhea dark stool Yes all other systems are reviewed and are negative [facility] Past Medical History Medical History Chronic ITP (idiopathic thrombocytopenia) Ischemic cardiomyopathy Ascending aorta dilatation Atherosclerotic cardiovascular disease Non-rheumatic mitral regurgitation Non-rheumatic aortic regurgitation Non-rheumatic aortic stenosis Cardiomyopathy COPD exacerbation Heart failure with reduced ejection fraction Acute on chronic systolic (congestive) heart failure COPD (chronic obstructive pulmonary disease) Thrombocytopenia Osteoarthritis GERD (gastroesophageal reflux disease) Anxiety Asthma Surgical History Hx of colonoscopy Hx of endoscopy Hx of oophorectomy Hx of hysterectomy Hx of total knee replacement Family History Family History Sister Lung cancer Lupus Sister Lung cancer Maternal Aunt Lupus Social History Social History Household Members: Other Household Members Other:: lives alone Housing: Condominium Are you a primary behavioral health care manager to a significant other at home: No Do you presently have visiting nurse or other home services: Yes ([facility]) Unable to assess alcohol history related to: Unknown Alcohol intake: current Alcohol intake frequency: holidays/special occasions only Comment: patient refusing alarms Patient Tobacco Use Status: Former Tobacco user Second Hand Smoke Exposure: No Substance Use Type: Unknown Advance Directives Date on File: 03/20/23 service: No Current occupational status: employed Physical Exam ED Vital Signs: Vital Signs - 24 hr 05/30/25 10:44 05/30/25 11:54 Temperature 99.1 F 99.8 F Pulse Rate 84 86 Respiratory Rate 16 16 Blood Pressure 156/57 H 162/78 H Pulse Oximetry 96 94 Oxygen Delivery Method Room Air Room Air BMI result Body Mass Index 28.5 Const General: cooperative, healthy appearing, comfortable, no acute distress, well developed, alert, awake and Physically active Orientation/consciousness: patient oriented x3 HENMT Head: Yes normal to inspection, Yes No palpable skull fracture present and Yes normocephalic Eyes General: appearance normal, both eyes and all related structures Neck Neck: Yes normal visual inspection, Yes full ROM, Yes no lymphadenopathy, Yes no meningeal signs, Yes trachea midline, Yes supple, No anterior neck swelling and No tender Chest Chest palpation & inspection: normal inspection of the chest and normal palpation of entire chest wall Resp Effort & Inspection: normal respiratory effort and able to speak in complete sentences Cardio Jugular venous distension: no JVD Heart sounds: S1 normal heart sound present and S2 normal heart sound present GI Other: Rectal exam positive for black stool. Inspection: Yes normal to inspection Palpation (GI): Soft to palpation, not firm, Tenderness to palpation present (GI) in the LLQ and in the RLQ, no guarding and not rigid General: Yes no CVA tenderness Back/Spine/Pelvis Back: no CVA tenderness and No back tenderness Skin General skin exam: no rashes or lesions noted, elasticity normal and turgor normal Neuro General: patient oriented x3, gait normal, tone normal, moves all extremities, Normal light touch and pain sensation, no meningeal signs, no focal motor deficits, CN's II-XI intact bilaterally and normal sensation to monofilament Extrem General: Yes normal to inspection, Yes full ROM and Yes capillary refill normal Psych Appearance: grossly normal, well kempt and not disheveled Medications Administered Generic Name Dose Route Start Last Admin Trade Name Hernandoq PRN Reason Stop Dose Admin Acetaminophen 650 mg 05/30/25 18:15 05/31/25 11:41 Acetaminophen 325 Mg Tablet PO 650 mg Q6H PRN Administration Pain, Mild 1-3,fever,headache Alprazolam 0.5 mg 05/30/25 18:20 05/30/25 21:28 Alprazolam 0.5 Mg Tablet PO 0.5 mg TID PRN Administration Anxiety Cyanocobalamin 1,000 mcg 05/31/25 09:00 05/31/25 08:29 Cyanocobalamin (Vitamin B-12) 1,000 Mcg Tablet PO 1,000 mcg DAILY ROBERTO Administration Ferrous Sulfate 324 mg 05/31/25 09:00 05/31/25 08:30 Ferrous Sulfate 324 Mg Tablet. PO 324 mg DAILY ROBERTO Administration Melatonin 6 mg 05/30/25 18:15 05/31/25 01:11 Melatonin 3 Mg Tablet PO 6 mg BEDTIME PRN Administration Insomnia Metoprolol Succinate 25 mg 05/31/25 09:00 05/31/25 08:29 Metoprolol Succinate Er 25 Mg Tab.Er.24h PO 25 mg DAILY ROBERTO Administration Protocol Ondansetron HCl 4 mg 05/30/25 18:15 05/31/25 19:41 Ondansetron Hcl 4 Mg/2 Ml Vial IVPUSH 4 mg Q8H PRN Administration Nausea and Vomiting Oxycodone HCl 10 mg 05/30/25 18:53 05/31/25 20:47 Oxycodone Hcl Immed Release 5 Mg Tablet PO 10 mg QID PRN Administration Pain, Moderate(Pain Scale 4-6) Sodium Chloride 3 ml 05/31/25 00:00 05/31/25 19:43 0.9 % Sodium Chloride Flush 3 Ml Syringe IVFLUSH 3 ml QSHIFT [facility] Administration Vitamin D 25 mcg 05/31/25 09:00 05/31/25 08:30 Cholecalciferol (Vitamin D3) 25 Mcg Tablet PO 25 mcg DAILY ROBERTO Administration Discontinued Medications Generic Name Dose Route Start Last Admin Trade Name Freq PRN Reason Stop Dose Admin Albuterol/Ipratropium 3 ml 05/30/25 13:36 05/30/25 13:40 Albuterol/Iprat 2.5/0.5mg 3 Ml Ampul.Neb INHALE 05/30/25 13:37 3 ml ONCE ONE Administration Iohexol 100 ml 05/30/25 14:57 05/30/25 14:57 Iohexol 350 Mg/Ml 100 Ml Infus..Btl IV 05/30/25 14:58 80 ml ONCE ONE Administration Metoclopramide HCl 5 mg 05/30/25 18:03 05/30/25 18:49 Metoclopramide Hcl 10 Mg/2 Ml Vial IVPUSH 05/30/25 18:04 5 mg ONCE ONE Administration Metoprolol Tartrate 25 mg 05/30/25 18:21 05/30/25 18:51 Metoprolol Tartrate 25 Mg Tablet PO 05/30/25 18:22 25 mg ONCE ONE Administration Protocol Morphine Sulfate 4 mg 05/30/25 13:51 05/30/25 14:39 Morphine Sulfate 4 Mg/Ml Cartridge IVPUSH 05/30/25 13:52 Not Given ONCE ONE Protocol Ondansetron HCl 4 mg 05/30/25 14:01 05/30/25 14:07 Ondansetron Hcl 4 Mg/2 Ml Vial IVPUSH 05/30/25 14:02 4 mg ONCE ONE Administration Ondansetron HCl 4 mg 05/30/25 15:17 05/30/25 15:21 Ondansetron Hcl 4 Mg/2 Ml Vial IVPUSH 05/30/25 15:18 4 mg ONCE ONE Administration Pantoprazole Sodium 80 mg 05/30/25 12:05 05/30/25 12:36 Pantoprazole Sodium 40 Mg/10 Ml Vial IVPUSH 05/30/25 12:06 80 mg ONCE ONE Administration Medical Decision Making Medical Decision Making [facility] Narrative: 79-year-old female presents to ED for lower abdominal pain and diarrhea for 1 week. With dark stool. Physical exam positive for black stool. Occult stool swab positive. Slight drop in crit. We will contact GI. Protonix ordered. Fluids ordered. 2:30pm: Patient was evaluated by Dr. Pop of GI and he is agreeable for patient to be admitted for possible colonoscopy and endoscopy due to patient's having black stool slight drop in hemoglobin hematocrit. He is agreeable with the plan for abdominal CT scan. 4:00pm- Patient admitted to Hospitalists Janneth Mireles Differential Diagnosis Differential Diagnoses: The differential diagnosis associated with the presentation includes (GI bleed, Colitits, Perforation) Admission/Observation Consideration of admission/observation: Escalation of care including admission/observation considered Lab Data [facility] Lab Attestation statement: I reviewed the patient's lab results. 05/31/25 06:06 05/31/25 06:06 Labs: Lab Results 05/30/25 05/30/25 Range/Units 11:51 15:37 WBC 8.0 (4.8-10.8) X10*3/uL RBC 2.80 L (4.20-5.50) X10*6/uL Hgb 8.5 L (12.0-16.0) g/dl Hct 26.5 L (37.0-47.0) % MCV 94.6 (80.0-98.0) fL MCH 30.4 (27.0-33.0) pg MCHC 32.1 (31.0-35.0) g/dl RDW 14.4 (11.0-16.0) % Plt Count 77 L D (160-400) X10*3/uL MPV Not Reportable Immature Gran % (Auto) Cancelled Neut % (Auto) Cancelled Lymph % (Auto) Cancelled Hayes % (Auto) Cancelled Eos % (Auto) Cancelled Baso % (Auto) Cancelled Lymph # (Auto) Cancelled Hayes # (Auto) Cancelled Eos # (Auto) Cancelled Baso # (Auto) Cancelled Abs Immat Gran (auto) Cancelled Absolute Neuts (auto) Cancelled Absolute Nucleated RBC 0.000 (0.0-0.012) X10*3/uL Nucleated RBC % (auto) 0.0 (0.0-0.2) /100WBC Neutrophils % (Manual) 82 H (45-73) % Band Neutrophils % 4 (3-5) % Lymphocytes % (Manual) 8 L (20-40) % Monocytes % (Manual) 4 (2-11) % Eosinophils % (Manual) 1 (0-4) % Basophils % (Manual) 1 (0-2) % Abs Neuts (Manual) 6.9 (2.0-8.3) X10*3/uL Lymphocytes # (Manual) 0.6 L (1.2-4.9) X10*3/uL Monocytes # (Manual) 0.3 (0.1-1.2) X10*3/uL Eosinophils # (Manual) 0.1 (0.0-0.4) X10*3/uL Basophils # (Manual) 0.1 (0.0-0.2) X10*3/uL Platelet Estimate DECREASED (NORMAL) Large Platelets PRESENT Plt Morphology Comment NOTED RBC Morphology NOTED Hypochromasia 1+ (5-14) /OIF Basophilic Stippling 1+ (0-2) /OIF Ovalocytes 1+ (5-14) /OIF PT 14.2 H (10.9-12.4) SEC INR 1.2 H (0.9-1.1) APTT 29.3 (26.7-34.1) SEC Sodium 143 (135-145) mmol/L Potassium 4.3 (3.3-5.1) mmol/L Chloride 108 (96-108) mmol/L Carbon Dioxide 29 (22-29) mmol/L Anion Gap 10 L (12-20) BUN 11 (9-16) mg/dL Creatinine 0.59 (0.5-1.4) mg/dL Estim Creat Clear Calc 72.8 Estimated GFR > 60 Random Glucose 99 (60-115) mg/dL Calcium 8.2 L (8.4-10.2) mg/dL Magnesium 2.0 (1.6-2.6) mg/dL Total Bilirubin 0.9 (0.0-1.0) mg/dL AST 25 (5-31) U/L ALT 24 (0-31) U/L Alkaline Phosphatase 45 (39-117) U/L Troponin I High Sens 12.9 D (<3.5-17.0) ng/L Total Protein 5.4 L (6.5-8.0) g/dL Albumin 3.8 (3.5-5.0) g/dL Lipase 10 (8-78) U/L Stool Occult Blood POSITIVE (NEGATIVE) Blood Type O Positive Antibody Screen NEGATIVE Independent Interpretation I performed an independent interpretation of an: EKG (negative Stemi) Independent Historian Clinical information obtained from an independent historian. History obtained from or confirmed by: Other (patient) Critical Care Time Critical Care Time Critical Care Time: Yes Total Critical Care Time: 60 Attestation: Dark black stool on exam. slight droped in hematocrit. CT abdomen GI bleed studied ordered. Protonix ordered. GI sales and leasing consultant Dr. rosa elena campouted Patient. Patient admitted to Hospitalist. Discharge Plan Discharge Clinical Impression: GI bleed Patient Disposition: Admitted As Inpatient Interventions: Admission Worksheet (ED) Last Done: 05/30/25 19:53 Discharge Date/Time: 05/30/25 20:45
[2025-05-30 12:42] LABS: Band Neutrophils Percent 4 % (3-5); Basophils Abs Manual 0.1 X10*3/uL (0.0-0.2); Basophils Percent Manual 1 % (0-2); Eosinophils Absolute Manual 0.1 X10*3/uL (0.0-0.4); Eosinophils Percent Manual 1 % (0-4); Lymphocytes Absolute Manual 0.6 X10*3/uL (1.2-4.9); Lymphocytes Percent Manual 8 % (20-40); Monocytes Absolute Manual 0.3 X10*3/uL (0.1-1.2); Monocytes Percent Manual 4 % (2-11); Neutrophils Absolute Manual 6.9 X10*3/uL (2.0-8.3); Neutrophils Percent Manual 82 % (45-73)
[2025-05-30 12:43] LABS: Ovalocytes 1+ (5-14) /OIF; RBC Morphology NOTED
[2025-05-30 12:46] LABS: Basophilic Stippling 1+ (0-2) /OIF; Hypochromasia 1+ (5-14) /OIF; Large Platelet PRESENT
--- OUTSIDE RECORDS SUMMARY | 2025-05-30 12:57 | XMS_ITS | Encounter Summary ---
Author Organization [employer] Address [address] [place] [address] Care Team Providers Care Foot Specialist Name Role Phone Name, Joseph KIM Primary Care Provider [phone] Reason for Visit * Reason Onset Date Comments Call Back Request 02/13/2024 Encounter Details Date Type Department Care Team ([facility] Contact Info) Description 02/13/[address] [facility] MEDICINE [address] [place], [place] [phone] Name, MD Joseph [address] [place], [place] [phone] Call Back Request Social History Tobacco Use [...] it evaluated. Stated she originally called this designer writer about her medications, but has since figured it all out. Will forward message to PCP as FYChas. * Telephone Encounter - Althea Edouard - 02/13/2024 8:49 AM EDT Tc from pt requesting a call back in regards medications. documented in this encounter Plan of Treatment Upcoming Encounters Date Type Department Care Team (Late st Contact Info) Description 06/04/2025 11:30 AM EDT Telemedicine [facility] MEDICINE [address] [place] [address] Kaitlynn Landrum, SUNSHINE documented as of this encounter Visit Diagnoses Not on filedocumented in this encounter Additional Health Concerns Assessment Noted Time PHQ-9 Depression Total Score: 0 01/30/20 24 11:07 AM EDT documented as of this encounter Care Teams Foot Specialist Relationship Specialty Start Date End Date Name, MD Joseph [address] [place] [address] PCP - General Family Medicine 01/21/22 documented as of this encounter
--- OUTSIDE RECORDS SUMMARY | 2025-05-30 12:57 | XMS_ITS | Encounter Summary ---
Author Organization [employer] Address [address] [place] [address] Care Team Providers Care Lithopone Charger Name Role Phone Name, Joseph KIM Primary Care Provider Reason for Visit * Reason Onset Date Comments Triage 12/28/2022 Encounter Details Date Type Department Care Team ([facility] st Contact Info) Description 12/28/2022 Telephone [facility] MEDICINE [address] [place], [place] [phone] Name, MD Joseph [address] [place] [address] Triage Social History Tobacco Use Types Packs/Day [...] accepted this outcome Please contact pt at [phone] documented in this encounter Plan of Treatment Upcoming Encounters Date Type Department Care Team (Late st Contact Info) Description 06/04/2025 11:30 AM EDT Telemedicine [facility] MEDICINE [address] [place] [address] Kaitlynn Landrum RN documented as of this encounter Visit Diagnoses Not on filedocumented in this encounter Additional Health Concerns Assessment Noted Time PHQ-9 Depression Total Score: 4 09/22/19 23 11:14 AM EST documented as of this encounter Care Teams Lithopone Charger Relationship Specialty Start Date End Date Name, MD Joseph [address] [place] [address] PCP - General Family Medicine 01/21/22 documented as of this encounter
--- OUTSIDE RECORDS SUMMARY | 2025-05-30 12:57 | XMS_ITS | Encounter Summary ---
Author Organization [employer] Address [address] [place] [address] Care Team Providers Care Accounts Payable Processor Name Role Phone Name, Joseph KIM Primary Care Provider [phone] Encounter Details Date Type Department Care Team (Late st Contact Info) Description 08/02/2024 Orders Only [facility] MED[facility]INE [address] [place], [place] [phone] Name, MD Joseph [address] [place], [place] [phone] Iron deficiency anemia, unspecified iron deficiency anemia [...] Info) Description 06/04/2025 11:30 AM EDT Telemedicine [facility] [address] [place] [address] Kaitlynn Landrum RN documented as of this encounter Visit Diagnoses Diagnosis Iron deficiency anemia, unspecified iron deficiency anemia type documented in this encounter Additional Health Concerns Assessment Noted Time PHQ-9 Depression Total Score: 0 01/30/20 24 11:07 AM EDT documented as of this encounter Care Teams Accounts Payable Processor Relationship Specialty Start Date End Date Name, MD Joseph [address] [place] [address] PCP - General Family Medicine 01/21/22 documented as of this encounter
--- OUTSIDE RECORDS SUMMARY | 2025-05-30 12:57 | XMS_ITS | Encounter Summary ---
Author Organization [facility] Address [address] [place] [address] 7[address] [place] [address] Care Team Providers Care Revenue Cycle Specialist Name Role Phone Name, Joseph KIM Primary Care Provider [phone] Encounter Details Date Type Department Care Team (Late Contact Info) Description 09/01/2022 Orders Only [address] [address] Cheryl García, [place] Social History Tobacco Use [...] Info) Description 06/04/2025 11:30 AM EDT Telemedicine [address] [address] Kaitlynn Landrum, [place] Pending Results Name Type [...] Sensitivity Troponin I (03/20/2023 2:31 PM EDT) [facility] TROPONIN I HIGH SENSITIVITY 5.0 <3.5 - 17.0 ng/L [facility] Comment:The Bishop high sens itivity Troponin-I results should beused in conjunction with other diagnostic information suchas ECG, clinical observations and information, and patientsymptoms to aid in the diagnosis of [place]. 03/20/2023 2:31 PM EDT 03/20/2023 2:35 PM EDT us [facility] External Provider LAB BLO OD ORDERABLES Final Result [facility] [address] [place] [phone] * (ABNORMAL) Drug Monitoring, Panel 1, Screen, Urine (03/20/2023 11:21 AM EDT) Pathologist [facility] Opiate Screen Urine Not Detected Not Detect [facility] Comment:Opiate cut-off is 30 0 ng/mL.Positive results are unconfirmed and should not be used fornon-medical purposes. Barbiturates, Urine Not Detected Not Detect [facility] Comment:Barbiturate cut-off is 200 ng/mL.Positive results are unconfirmed and should not be used fornon-medical purposes. Phencyclidine Screen Urine Not Detected Not Detect [facility] Comment:Phencyclidine cut-of f is 25 ng/mL.Positive results are unconfirmed and should not be used fornon-medical purposes. Amphetamine Screen Urine Not Detected Not Detect [facility] Comment:Amphetamine cut-off is 1000 ng/mL.Positive results are unconfirmed and should not be used fornon-medical purposes. Benzodiazepines Screen Urine Not Detected Not Detect [facility] Comment:Benzodiazepine cut-o ff is 200 ng/mL.Positive results are unconfirmed and should not be used fornon-medical purposes. Cocaine Screen Urine Not Detected Not Detect [facility] Comment:Cocaine cut-off is 3 00 ng/mL.Positive results are unconfirmed and should not be used fornon-medical purposes. Cannabinoid Screen Urine POSITIVE(A) Not Detect [facility] Comment:Cannabinoid cut-off is 50 ng/mL.Positive results are unconfirmed and should not be used fornon-medical purposes. FENTANYL URINE Not Detected Not Detect [facility] Comment:Fentanyl cut-off is 1 ng/mL.Positive results are unconfirmed and should not be used fornon-medical purposes. 03/20/2023 11:2 1 AM EDT 03/20/2023 11:53 AM EDT [facility] External Provider LAB URI NE ORDERABLES Final Result [facility] [address] [place] [address] [phone] * (ABNORMAL) Urinalysis, Complete, with Reflex to Culture (03/20/2023 11:21 AM EDT) Color Urine Yellow [facility] Appearance Urine Cloudy [facility] PH 5.5 5.0 - 9.0 [facility] Glucose Urine UA Negative Negative mg/dL [facility] Urine Blood Negative Negative [facility] Specific [place] - Urine 1.010 1.005 - 1.025 [facility] Urine Protein Negative Neg-Trace mg/dL [facility] Urine Ketones Negative Negative mg/dL [facility] Nitrite Urine Negative Negative [facility] Leukocyte Esterase Urine Trace(A) Negative [facility] RBC Urine 3-5(A) 0 - 2 /HPF [facility] Urine WBC 0-5 0 - 5 /HPF [facility] Urine Squamous Epithelial Cell 6-10 0 - 2 /HPF [facility] Urine Bacteria Trace None Seen [facility] Hyaline Casts, Urine 0-2 0 - 2 /LPF [facility] 03/20/2023 11:2 1 AM EDT 03/20/2023 11:24 AM EDT Narrative [facility] - 03/20/2023 11:30 AM EDT [id number], Clean Catch [facility] External Provider LAB URI NE ORDERABLES Final Result Performing Organization Address [facility]/ZIP Co de Phone Number [facility] [address] [place] [phone] * Ethanol (03/20/2023 11:11 AM EDT) ETHANOL (MG/DL) IN SER/PLAS <10 mg/dL [facility] Comment:Serum/plasma ethanol results are to be used formedical/treatment purposes only. 03/20/2023 11:1 1 AM EDT 03/20/2023 11:19 AM EDT [facility] External Provider LAB BLO OD ORDERABLES Final Result Performing Organization Address [facility] Co de Phone Number [facility] [address] [place] [phone] * High Sensitivity Troponin I (03/20/2023 11:11 AM EDT) [facility] TROPONIN I HIGH SENSITIVITY 4.9 <3.5 - 17.0 ng/L [facility] Comment:The [facility] high sens itivity Troponin-I results should beused in conjunction with other diagnostic information suchas ECG, clinical observations and information, and patientsymptoms to aid in the diagnosis of [place]. 03/20/2023 11:1 1 AM EDT 03/20/2023 11:19 AM EDT [facility] External Provider LAB BLO OD ORDERABLES Final Result Performing Organization Address [facility] Co de Phone Number [facility] [address] [place] [phone] * B Type Natriuretic Peptide (BNP) (03/20/2023 11:11 AM EDT) [facility] B Type Natriuretic Peptide 94 <100 pg/mL [facility] Comment:For those patients w ho are being treated with Natrecor(nesiritide, recombinant BNP), BNP testing should beperformed at least two hours post treatment in order toensure that only endogenous levels of BNP are detected. 03/20/2023 11:1 1 AM EDT 03/20/2023 11:19 AM EDT [facility] External Provider LAB BLO OD ORDERABLES Final Result Performing Organization Address City/[facility] Co de Phone Number [facility] [address] [place] [phone] * Magnesium (03/20/2023 11:11 AM EDT) [facility] Magnesium 2.1 1.6 - 2.6 mg/dL [facility] 03/20/2023 11:1 1 AM EDT 03/20/2023 11:19 AM EDT [facility] External Provider LAB BLO OD ORDERABLES Final Result [facility] [address] [place] [phone] * (ABNORMAL) Basic Metabolic Panel (03/20/2023 11:11 AM EDT) Sodium 145 135 - 145 mmol/L [facility] Potassium 4.4 3.3 - 5.1 mmol/L [facility] Chloride 109(H) 96 - 108 mmol/L [facility] Carbon Dioxide 29 22 - 29 mmol/L [facility] Anion Gap 11(L) 12 - 20 [facility] Urea Nitrogen (BUN) 15 9 - 16 mg/dL [facility] Creatinine, Serum 0.73 0.5 - 1.4 mg/dL [facility] Creatinine Clr Calc Pharmacy 63.7 [facility] Comment:Provided height and weight: 160.02 cm,80.2 kg.eGFR (calculated from the MDRD study equation) and eCrCl(calculated from the Cockcroft-Gault equation) are based ondifferent parameters and may not yield comparable results.If eCrCl result is absurd, please check patient'sheight/weight. Estimated Glomerular Filt Rate >60 [facility] Comment:NOTE: For -Am erican individuals, multiply the result by 1.210.Chronic Kidney Disease: Estimated GFR < 60 mL/min/[id number] Kidney Disease: Estimated GFR < 15 mL/min/1.73m2 Glucose 92 60 - 115 mg/dL [facility] Calcium 9.4 8.4 - 10.2 mg/dL [facility] 03/20/2023 11:1 1 AM EDT 03/20/2023 11:19 AM EDT [facility] External Provider LAB BLO OD ORDERABLES Final Result Performing Organization Address City/[facility]/ZIP Co de Phone Number [facility] [address] [place] [phone] * (ABNORMAL) Hepatic Function Panel (03/20/2023 11:11 AM EDT) Bilirubin, Total 0.8 0.0 - 1.0 mg/dL [facility] Bilirubin, Direct 0.2 0.0 - 0.5 mg/dL [facility] Aspartate Amino Transferase 17 5 - 31 U/L [facility] Alanine Aminotransferase 12 0 - 31 U/L [facility] Total Protein 6.2(L) 6.5 - 8.0 g/dL [facility] Albumin Level 3.8 3.5 - 5.0 g/dL [facility] Alkaline Phosphatase 58 39 - 117 U/L [facility] 03/20/2023 11:1 1 AM EDT 03/20/2023 11:19 AM EDT [facility] External Provider LAB BLO OD ORDERABLES Final Result Performing Organization Address City/State/[facility] Co de Phone Number [facility] [address] [place] [phone] * COVID-19 ID NOW (BISHOP) (03/20/2023 11:11 AM EDT) IDNOW SERIAL# [id number] [facility] COVID-19 TEST Negative Negative [facility] COVID-19 NOTE See Note [facility] Comment: Results are for the identification of SARS-CoV2 RNA. TheSARS-CoV2 RNA is generally detectable in respiratory samplesduring the acute phase of infection. Positive results areindicative of the presence of SARS-CoV-2 RNA; clinicalcorrelation with patient history and other diagnosticinformation is necessary to determine patient infectionstatus. Positive results do not rule out bacterial infectionor co- infection with other viruses.Testing facilities within the [facility] and itsterritories are required [...] use by authorized laboratories.Testing performed on the Live[employer] ID NOW utilizing NAAT. 03/20/2023 11:1 1 AM EDT 03/20/2023 11:18 AM EDT us [facility] Exter nal Provider LAB MOLECULAR DIAGNOSTICS ORDERABLES Final Result [facility] [address] [place] [phone] * (ABNORMAL) CBC auto differential (03/20/2023 11:11 AM EDT) White Blood Count 6.0 4.8 - 10.8 X10*3/uL [facility] Red Blood Count 3.33(L) 4.20 - 5.50 X10*6/uL [facility] Hemoglobin 10.0(L) 12.0 - 16.0 g/dl [facility] Hematocrit 32.1(L) 37.0 - 47.0 % [facility] Mean Corpuscular Volume 96.4 80.0 - 98.0 fL [facility] Mean Corpuscular Hemoglobin 30.0 27.0 - 33.0 pg [facility] Mean Corpuscular HGB Conc 31.2 31.0 - 35.0 g/dl [facility] Red Cell Distribution Width 15.0 11.0 - 16.0 % [facility] Platelet Count 71(L) 160 - 400 X10*3/uL [facility] Neutrophils Percent Auto 71.3 45 - 73 % [facility] Imm Gran Pct Auto 0.2 0.0 - 0.4 % [facility] Lymphocytes Percent Auto 14.5(L) 20 - 40 % [facility] Monocytes Percent Auto 9.6 2 - 11 % [facility] Eosinophils Percent Auto 3.7 0 - 4 % [facility] Basophils Percent Auto 0.7 0 - 2 % [facility] NRBC Pct Auto 0.0 0.0 - 0.2 /100WBC [facility] Neutrophils Absolute Auto 4.3 2.0 - 8.3 x10*3/uL [facility] Imm Gran Abs Auto 0.01 0.00 - 0.03 X10*3/uL [facility] Lymphocytes Absolute Auto 0.9(L) 1.2 - 4.9 X10*3/uL [facility] Monocytes Absolute Auto 0.6 0.1 - 1.2 X10*3/uL [facility] Eosinophils Absolute Auto 0.2 0.0 - 0.4 X10*3/uL [facility] Basophils Absolute Auto 0.0 0.0 - 0.2 X10*3/uL [facility] NRBC Abs Auto 0.000 0.0 - 0.012 X10*3/uL [facility] 03/20/2023 11:1 1 AM EDT 03/20/2023 11:19 AM EDT us [facility] External Provider LAB BLO OD ORDERABLES Final Result [facility] [address] [place] [phone] * Prothrombin Time-INR (03/20/2023 11:11 AM EDT) Prothrombin Time 13.0 10.0 - 13.1 SEC [facility] INTERNATIONAL NORM RATIO 1.1 0.9 - 1.1 [facility] Comment:INTERNATIONAL NORMAL IZED RATIO (INR) [...] AM EDT 03/20/2023 11:19 AM EDT us [facility] External Provider LAB BLO OD ORDERABLES Final Result [facility] [address] [place] [phone] * (ABNORMAL) CBC (12/09/2022 5:40 AM EDT) White Blood Count 6.7 4.8 - 10.8 X10*3/uL [facility] Red Blood Count 2.88(L) 4.20 - 5.50 X10*6/uL [facility] Hemoglobin 7.0(LL) 12.0 - 16.0 g/dl [facility] Comment:Critical HGB sent by a secure message and confirmed byMERVIN MOSQUERA on 12/09/22 at 0726 by CODIE. Hematocrit 24.2(L) 37.0 - 47.0 % [facility] Mean Corpuscular Volume 84.0 80.0 - 98.0 fL [facility] Mean Corpuscular Hemoglobin 24.3(L) 27.0 - 33.0 pg [facility] Mean Corpuscular HGB Conc 28.9(L) 31.0 - 35.0 g/dl [facility] Red Cell Distribution Width 19.8(H) 11.0 - 16.0 % [facility] Platelet Count 59(L) 160 - 400 X10*3/uL [facility] NRBC Pct Auto 0.0 0.0 - 0.2 /100WBC [facility] NRBC Abs Auto 0.000 0.0 - 0.012 X10*3/uL [facility] 12/09/2022 5:40 AM EDT 12/09/2022 6:43 AM EDT us [facility] External Provider LAB BLO OD ORDERABLES Final Result [facility] [address], [place] [phone] * (ABNORMAL) CBC auto differential (12/08/2022 5:58 AM EDT) White Blood Count 8.5 4.8 - 10.8 X10*3/uL [facility] Red Blood Count 2.92(L) 4.20 - 5.50 X10*6/uL [facility] Hemoglobin 6.9(LL) 12.0 - 16.0 g/dl [facility] Comment:Critical HGB sent by a secure message and confirmed byYUDITH on 12/08/22 at 0846 by YAZAN. Hematocrit 24.2(L) 37.0 - 47.0 % [facility] Mean Corpuscular Volume 82.9 80.0 - 98.0 fL [facility] Mean Corpuscular Hemoglobin 23.6(L) 27.0 - 33.0 pg [facility] Mean Corpuscular HGB Conc 28.5(L) 31.0 - 35.0 g/dl [facility] Red Cell Distribution Width 19.7(H) 11.0 - 16.0 % [facility] Platelet Count 77(L) 160 - 400 X10*3/uL [facility] Neutrophils Percent Auto 77.9(H) 45 - 73 % [facility] Imm Gran Pct Auto 0.4 0.0 - 0.4 % [facility] Lymphocytes Percent Auto 8.6(L) 20 - 40 % [facility] Monocytes Percent Auto 12.5(H) 2 - 11 % [facility] Eosinophils Percent Auto 0.2 0 - 4 % [facility] Basophils Percent Auto 0.4 0 - 2 % [facility] NRBC Pct Auto 0.0 0.0 - 0.2 /100WBC [facility] Neutrophils Absolute Auto 6.7 2.0 - 8.3 x10*3/uL [facility] Imm Gran Abs Auto 0.03 0.00 - 0.03 X10*3/uL [facility] Lymphocytes Absolute Auto 0.7(L) 1.2 - 4.9 X10*3/uL [facility] Monocytes Absolute Auto 1.1 0.1 - 1.2 X10*3/uL [facility] Eosinophils Absolute Auto 0.0 0.0 - 0.4 X10*3/uL [facility] Basophils Absolute Auto 0.0 0.0 - 0.2 X10*3/uL [facility] NRBC Abs Auto 0.000 0.0 - 0.012 X10*3/uL [facility] 12/08/2022 5:58 AM EDT 12/08/2022 6:50 AM EDT us [facility] External Provider LAB BLO OD ORDERABLES Edited Result - Final [facility] [address] [place] [phone] * (ABNORMAL) Basic Metabolic Panel, Fasting (12/08/2022 5:58 AM EDT) Sodium 140 135 - 145 mmol/L [facility] Potassium 4.3 3.3 - 5.1 mmol/L [facility] Chloride 106 96 - 108 mmol/L [facility] Carbon Dioxide 24 22 - 29 mmol/L [facility] Anion Gap 14 12 - 20 [facility] Urea Nitrogen (BUN) 13 9 - 16 mg/dL [facility] Creatinine, Serum 0.73 0.5 - 1.4 mg/dL [facility] Creatinine Clr Calc Pharmacy 62.7 [facility] Comment:Provided height and weight: 160.02 cm,78.01 kg.eGFR (calculated from the MDRD study equation) and eCrCl(calculated from the Cockcroft-Gault equation) are based ondifferent parameters and may not yield comparable results.If eCrCl result is absurd, please check patient'sheight/weight. Estimated Glomerular Filt Rate >60 [facility] Comment:NOTE: For -Am erican individuals, multiply the result by 1.210.Chronic Kidney Disease: Estimated GFR < 60 mL/min/[id number] Kidney Disease: Estimated GFR < 15 mL/min/1.73m2 Glucose Fasting 110(H) 60 - 99 mg/dL [facility] Comment:A fasting glucose fr om 100-125 mg/dl is considered impaired(pre-diabetes). Calcium 8.2(L) 8.4 - 10.2 mg/dL [facility] 12/08/2022 5:58 AM EDT 12/08/2022 6:58 AM EDT [facility] External Provider LAB BLO OD ORDERABLES Final Result Performing Organization Address [facility]/ZIP Co de Phone Number [facility] [address] [place] [phone] * Slide Review (12/07/2022 4:40 PM EDT) Slide Review VERIFIED [facility] 12/07/2022 4:40 PM EDT 12/07/2022 4:48 PM EDT [facility] External Provider LAB BLO OD ORDERABLES Final Result Performing Organization Address [facility] Co de Phone Number [facility] [address] [place] [phone] * (ABNORMAL) CBC auto differential (12/07/2022 4:40 PM EDT) White Blood Count 7.5 4.8 - 10.8 X10*3/uL [facility] Red Blood Count 3.04(L) 4.20 - 5.50 X10*6/uL [facility] Hemoglobin 7.3(L) 12.0 - 16.0 g/dl [facility] Hematocrit 25.3(L) 37.0 - 47.0 % [facility] Mean Corpuscular Volume 83.2 80.0 - 98.0 fL [facility] Mean Corpuscular Hemoglobin 24.0(L) 27.0 - 33.0 pg [facility] Mean Corpuscular HGB Conc 28.9(L) 31.0 - 35.0 g/dl [facility] Red Cell Distribution Width 19.8(H) 11.0 - 16.0 % [facility] Platelet Count 70(L) 160 - 400 X10*3/uL [facility] Neutrophils Percent Auto 89.8(H) 45 - 73 % [facility] Imm Gran Pct Auto 0.3 0.0 - 0.4 % [facility] Lymphocytes Percent Auto 5.0(L) 20 - 40 % [facility] Monocytes Percent Auto 3.4 2 - 11 % [facility] Eosinophils Percent Auto 0.8 0 - 4 % [facility] Basophils Percent Auto 0.7 0 - 2 % [facility] NRBC Pct Auto 0.0 0.0 - 0.2 /100WBC [facility] Neutrophils Absolute Auto 6.8 2.0 - 8.3 x10*3/uL [facility] Imm Gran Abs Auto 0.02 0.00 - 0.03 X10*3/uL [facility] Lymphocytes Absolute Auto 0.4(L) 1.2 - 4.9 X10*3/uL [facility] Monocytes Absolute Auto 0.3 0.1 - 1.2 X10*3/uL [facility] Eosinophils Absolute Auto 0.1 0.0 - 0.4 X10*3/uL [facility] Basophils Absolute Auto 0.1 0.0 - 0.2 X10*3/uL [facility] NRBC Abs Auto 0.000 0.0 - 0.012 X10*3/uL [facility] 12/07/2022 4:40 PM EDT 12/07/2022 4:48 PM EDT us [facility] External Provider LAB BLO OD ORDERABLES Edited Result - Final Performing Organization Address [facility]/ZIP Co de Phone Number [facility] [address] [place] [phone] * COVID-19 ID NOW (BISHOP) (12/07/2022 1:41 PM EDT) IDNOW SERIAL# [id number] [facility] COVID-19 TEST Negative Negative [facility] Comment:[place] [id number] COVID-19 NOTE See Note [facility] Comment: Results are for the identification of SARS-CoV2 RNA. TheSARS-CoV2 RNA is generally detectable in respiratory samplesduring the acute phase of infection. Positive results areindicative of the presence of SARS-CoV-2 RNA; clinicalcorrelation with patient history and other diagnosticinformation is necessary to determine patient infectionstatus. Positive results do not rule out bacterial infectionor co- infection with other viruses.Testing facilities within the [facility] and itsterritories are required [...] 1:41 PM EDT 12/07/2022 1:58 PM EDT [facility] Exter nal Provider LAB MOLECULAR DIAGNOSTICS ORDERABLES Final Result Performing Organization Address [facility]/ZIP Co de Phone Number [facility] [address] [place] [phone] * (ABNORMAL) CBC auto differential (12/07/2022 1:25 PM EDT) White Blood Count 5.6 4.8 - 10.8 X10*3/uL [facility] Red Blood Count 3.15(L) 4.20 - 5.50 X10*6/uL [facility] Hemoglobin 7.5(L) 12.0 - 16.0 g/dl [facility] Hematocrit 26.2(L) 37.0 - 47.0 % [facility] Mean Corpuscular Volume 83.2 80.0 - 98.0 fL [facility] Mean Corpuscular Hemoglobin 23.8(L) 27.0 - 33.0 pg [facility] Mean Corpuscular HGB Conc 28.6(L) 31.0 - 35.0 g/dl [facility] Red Cell Distribution Width 19.8(H) 11.0 - 16.0 % [facility] Platelet Count 69(L) 160 - 400 X10*3/uL [facility] Neutrophils Percent Auto 76.4(H) 45 - 73 % [facility] Imm Gran Pct Auto 0.2 0.0 - 0.4 % [facility] Lymphocytes Percent Auto 11.9(L) 20 - 40 % [facility] Monocytes Percent Auto 9.0 2 - 11 % [facility] Eosinophils Percent Auto 1.6 0 - 4 % [facility] Basophils Percent Auto 0.9 0 - 2 % [facility] NRBC Pct Auto 0.0 0.0 - 0.2 /100WBC [facility] Neutrophils Absolute Auto 4.3 2.0 - 8.3 x10*3/uL [facility] Imm Gran Abs Auto 0.01 0.00 - 0.03 X10*3/uL [facility] Lymphocytes Absolute Auto 0.7(L) 1.2 - 4.9 X10*3/uL [facility] Monocytes Absolute Auto 0.5 0.1 - 1.2 X10*3/uL [facility] Eosinophils Absolute Auto 0.1 0.0 - 0.4 X10*3/uL [facility] Basophils Absolute Auto 0.1 0.0 - 0.2 X10*3/uL [facility] NRBC Abs Auto 0.000 0.0 - 0.012 X10*3/uL [facility] 12/07/2022 1:25 PM EDT 12/07/2022 1:27 PM EDT [facility] External Provider LAB BLO OD ORDERABLES Final Result Performing Organization Address [facility] de Phone Number [facility] [address] [place] [phone] * (ABNORMAL) B Type Natriuretic Peptide (BNP) (10/12/2022 4:50 PM EST) B Type Natriuretic Peptide 135(H) <100 pg/mL [facility] Comment:For those patients w ho are being treated with Natrecor(nesiritide, recombinant BNP), BNP testing should beperformed at least two hours post treatment in order toensure that only endogenous levels of BNP are detected. 10/12/2022 4:50 PM EST 10/12/2022 6:16 PM EST [facility] External Provider LAB BLO OD ORDERABLES Final Result Performing Organization Address [facility] de Phone Number [facility] [address] [place] [phone] * Slide Review (10/12/2022 4:50 PM EST) Slide Review VERIFIED [facility] 10/12/2022 4:50 PM EST 10/12/2022 5:10 PM EST [facility] External Provider LAB BLO OD ORDERABLES Final Result Performing Organization Address [facility] de Phone Number [facility] [address] [place] [phone] * (ABNORMAL) CBC auto differential (10/12/2022 4:50 PM EST) White Blood Count 5.5 4.8 - 10.8 X10*3/uL [facility] Red Blood Count 2.42(L) 4.20 - 5.50 X10*6/uL [facility] Hemoglobin 4.8(LL) 12.0 - 16.0 g/dl [facility] Comment:Results of HGB, HCT called to and read back by Roseline 10/12/22 at 1730 by GRIS. Hematocrit 18.5(LL) 37.0 - 47.0 % [facility] Mean Corpuscular Volume 76.4(L) 80.0 - 98.0 fL [facility] Mean Corpuscular Hemoglobin 19.8(L) 27.0 - 33.0 pg [facility] Mean Corpuscular HGB Conc 25.9(L) 31.0 - 35.0 g/dl [facility] Red Cell Distribution Width 17.9(H) 11.0 - 16.0 % [facility] Platelet Count 54(L) 160 - 400 X10*3/uL [facility] Neutrophils Percent Auto 67.6 45 - 73 % [facility] Imm Gran Pct Auto 0.2 0.0 - 0.4 % [facility] Lymphocytes Percent Auto 20.0 20 - 40 % [facility] Monocytes Percent Auto 9.9 2 - 11 % [facility] Eosinophils Percent Auto 1.8 0 - 4 % [facility] Basophils Percent Auto 0.5 0 - 2 % [facility] NRBC Pct Auto 0.0 0.0 - 0.2 /100WBC [facility] Neutrophils Absolute Auto 3.7 2.0 - 8.3 x10*3/uL [facility] Imm Gran Abs Auto 0.01 0.00 - 0.03 X10*3/uL [facility] Lymphocytes Absolute Auto 1.1(L) 1.2 - 4.9 X10*3/uL [facility] Monocytes Absolute Auto 0.5 0.1 - 1.2 X10*3/uL [facility] Eosinophils Absolute Auto 0.1 0.0 - 0.4 X10*3/uL [facility] Basophils Absolute Auto 0.0 0.0 - 0.2 X10*3/uL [facility] NRBC Abs Auto 0.000 0.0 - 0.012 X10*3/uL [facility] 10/12/2022 4:50 PM EST 10/12/2022 5:10 PM EST us [facility] External Provider LAB BLO OD ORDERABLES Edited Result - Final [facility] [address] [place] [phone] documented in this encounter Visit Diagnoses Not on filedocumented in this encounter Care Teams Revenue Cycle Specialist Relationship Specialty Start Date End Date Name, MD Joseph [address] [place] [id number] PCP - General Family Medicine 01/21/22 documented as of this encounter
--- OUTSIDE RECORDS SUMMARY | 2025-05-30 12:57 | XMS_ITS | Clinical Summary ---
Author Organization [employer] Address [address] [place] [address] [address] [place] [address] Care Team Providers Care Irish Moss Operator Name Role Phone Name, Joseph KIM Primary Care Provider [phone] Allergies Active Allergy Reactions Criticality Noted Date Comments Vuggielhzq-Oglnaog-Shhmjuqukj 2017 Penicillin G 08/24/2022 Penicillin V Hives,Rash [...] Active Problems Problem Noted Date Diagnosed Date group home (current) use of opiate analgesic 11/16 Long-term [...] with EF of 40-45%. [place] [facility] [place] and [place] did [...] an evaluation. Since she [place] to [place] more than likely I will follow-up with [...] [place] [id number] Likely ITP, [place] [facility] [place] Heartburn 04/04/2008 03/28/2023 Overview (03/01/2023): H/O PUD Encounters Date Type Department Care Team Description 05/30/2025 Orders Only GENERIC EXTERNAL DATA DEPARTMENT Provider, Generic External Data 05/28/2025 Telephone [facility] [place] [address] Joseph Magana MD call back request 05/28/2025 Telephone [facility] [place] [address] Kaitlynn Landrum, RN Reschedule PSYCHIATRIC NURSE PRACTITIONER Tele appt 05/23/2025 Telephone [place] [place] [address] Kaitlynn Landrum RN NCNS PSYCHIATRIC NURSE PRACTITIONER Renewal appt today 05/18/2025 Orders Only [facility] External Provider, [facility] 05/16/2025 Telephone [facility] [place] [facility] [place] [address] Irena Pacheco, SUNSHINE 05/13/2025 Telephone [facility] [place] [facility] [place] [address] Joseph Magana MD 05/12/2025 Refill [facility] [place] [address] Joseph Magana MD Chronic pain syndrome 05/07/2025 2:00 PM EDT Telemedicine [facility] [place] [facility] [place] [address] Joseph Magana MD Atypical pneumonia (Primary Dx); Hypoxia 05/07/2025 Travel 05/06/2025 Refill [facility] [address] [place] [address] Joseph Magana MD Chronic pain syndrome; Chronic pain syndrome 05/06/2025 Telephone [facility] [address] [place] [address] Yojana Cole MA CHARTPREP 04/28/2025 Results Follow-Up [facility] [address] [place] [address] Joseph Magana MD CTA Chest PE Protocal 04/27/2025 Orders Only GENERIC EXTERNAL DATA DEPARTMENT Provider, Generic External Data 04/26/2025 Orders Only [facility] External Provider, [facility] 04/04/2025 11:00 AM EDT Office Visit [facility] [address] [place] [phone] Joseph Magana MD Chronic pain syndrome (Primary Dx); Gastrointestinal hemorrhage, unspecified gastrointestinal hemorrhage type; Chronic ITP (idiopathic thrombocytopenia) ([facility]) 04/04/2025 Travel 04/03/2025 Telephone [facility] [address] [place] [phone] Jospeh Magana MD Chart Prep 03/26/2025 Refill [facility] [address] [place] [phone] Joseph Magana MD Chronic pain syndrome 03/07/2025 Refill [facility] [address] [place] [address] Joseph Magana MD Chronic pain syndrome 03/04/2025 Telephone [facility] [address] [place] [phone] Joseph Magana MD 03/04/2025 Orders Only [facility] [address] [place] [phone] Joseph Magana MD Chronic pain syndrome (Primary Dx) from Last 3 Months Immunizations Immunization Administration [...] Info) Description 06/04/2025 11:30 AM EDT Telemedicine [facility] [address] [place] [address] Kaitlynn Landrum, RN Health Maintenance Due Date Last Done Comments Zoster Vaccines (1 of 2) 1994 Pneumococcal Vaccine: 50+ Years (2 of 2 - PCV) 02/10/2011 02/10/2010, 02/10/2010 RSV Patients and Patients Aged 60 years or older (1 - 1-dose 75+ series) 11/18/2019 DTaP/Tdap/Td Vaccines (1 - Tdap) 11/19/2019 11/18/2019 SDOH Screening 03/27/2024 03/27/2023 COVID-19 Vaccine (3 - season) 2025 11/01/2021, 10/04/2021 Influenza Vaccine (#1) 2025 6, 10/20/2015, 06/21/2012, Additional history exists Alcohol/Substance Use Screening 04/04/2026 04/04/2025 Depression Screening 04/04/2026 04/04/2025, 04/04/20 Tobacco Screening 04/04/2026 04/04/2025 HIB Vaccines Aged [...] Procedure Name Priority Date/Time Associated Diagnosis Comments LIPASE Routine 05/30/2025 11:51 AM EDT COMPREHENSIVE METABOLIC PANEL Routine 05/30/2025 11:51 AM EDT APTT Routine 05/30/2025 11:51 AM EDT PROTHROMBIN TIME-INR Routine 05/30/2025 11:51 AM EDT COMPLETE BLOOD COUNT MAN DIF Routine 05/30/2025 11:51 AM EDT OBSX1 Routine 05/30/2025 11:51 AM EDT XR CHEST 1 VIEW Routine 05/18/2025 3:16 AM EDT CTA CHEST PE PROTOCAL Routine 04/27/2025 1:21 [...] EDT from Last 3 Months Results * OBSX1 (05/30/2025 11:51 AM EDT) Pathologist [facility] OBS1 POSITIVE NEGATIVE [facility] 05/30/2025 11:5 1 AM EDT 05/30/2025 11:55 AM EDT us Generic External Data Provider LAB BLOOD ORDERAB LES Final Result [facility] [address] [place] [phone] * (ABNORMAL) Complete Blood Count Manual Diff (05/30/2025 11:51 AM EDT) [facility] White Blood Count 8.0 4.8 - 10.8 X10*3/uL [facility] Red Blood Count 2.80(L) 4.20 - 5.50 X10*6/uL [facility] Hemoglobin 8.5(L) 12.0 - 16.0 g/dl [facility] Hematocrit 26.5(L) 37.0 - 47.0 % [facility] Mean Corpuscular Volume 94.6 80.0 - 98.0 fL [facility] Mean Corpuscular Hemoglobin 30.4 27.0 - 33.0 pg [facility] Mean Corpuscular HGB Conc 32.1 31.0 - 35.0 g/dl [facility] Red Cell Distribution Width 14.4 11.0 - 16.0 % [facility] Platelet Count 77(L) 160 - 400 X10*3/uL [facility] NRBC Pct Auto 0.0 0.0 - 0.2 /100WBC [facility] NRBC Abs Auto 0.000 0.0 - 0.012 X10*3/uL [facility] Neutrophils % Manual 82(H) 45 - 73 % [facility] Band Neutrophils Percent 4 3 - 5 % [facility] Lymphocytes Percent Manual 8(L) 20 - 40 % [facility] Monocytes Percent Manual 4 2 - 11 % [facility] EOSINOPHILS % MANUAL 1 0 - 4 % [facility] BASOPHILS % MANUAL 1 0 - 2 % [facility] NEUTROPHILS ABSOLUTE MANUAL 6.9 2.0 - 8.3 X10*3/uL [facility] LYMPHOCYTES ABSOLUTE MANUAL 0.6(L) 1.2 - 4.9 X10*3/uL [facility] MONOCYTES ABSOLUTE MANUAL 0.3 0.1 - 1.2 X10*3/uL [facility] EOSINOPHILS ABSOLUTE MANUAL 0.1 0.0 - 0.4 X10*3/uL [facility] BASOPHILS ABSOLUTE MANUAL 0.1 0.0 - 0.2 X10*3/uL [facility] Platelet Estimate DECREASED NORMAL [facility] Large Platelet [facility] Platelet Morphology Comment NOTED [facility] RBC Morphology NOTED [facility] Hypochromasia 1+ (5-14) /OIF [facility] Basophilic Stippling 1+ (0-2) /OIF [facility] Ovalocytes 1+ (5-14) /[facility] 05/30/2025 11:5 1 AM EDT 05/30/2025 11:55 AM EDT Generic External Data Provider LAB BLOOD ORDERAB LES Final Result Performing Organization Address [facility] Co de Phone Number [facility] [address] [place] [phone] * Partial Thromboplastin Time, Activated (APTT) (05/30/2025 11:51 AM EDT) Partial Thromboplastin Time 29.3 26.7 - 34.1 SEC [facility] 05/30/2025 11:5 1 AM EDT 05/30/2025 11:55 AM EDT Generic External Data Provider LAB BLOOD ORDERAB LES Final Result Performing Organization Address [facility] Phone Number [facility] [address] [place] [phone] * (ABNORMAL) Prothrombin Time-INR (05/30/2025 11:51 AM EDT) Prothrombin Time 14.2(H) 10.9 - 12.4 SEC [facility] INTERNATIONAL NORM RATIO 1.2(H) 0.9 - 1.1 [facility] Comment:INTERNATIONAL NORMAL IZED RATIO (INR) REFERENCE RANGES Reference RangeFor patients not on anticoagulant therapy: 0.9 - 1.1INR ranges for oral anticoagulanttherapy:For prevention and treatment of venous thrombosis and pulmonary embolism: 2.0 - 3.0For acute myocardial infarction with aspirin therapy: 2.0 - 3.0For acute myocardial infarction without aspirin therapy: 3.0 - 4.0For patients with mechanical prosthetic heart valves: 2.5 - 3.5 05/30/2025 11:5 1 AM EDT 05/30/2025 11:55 AM EDT Generic External Data Provider LAB BLOOD ORDERAB LES Final Result Performing Organization Address [facility] Co de Phone Number [facility] [address] [place] [phone] * Lipase (05/30/2025 11:51 AM EDT) Lipase 10 8 - 78 U/L [facility] 05/30/2025 11:5 1 AM EDT 05/30/2025 11:55 AM EDT us Generic External Data Provider LAB BLOOD ORDERAB LES Final Result [facility] [address] [place] [phone] * (ABNORMAL) Comprehensive Metabolic Panel (05/30/2025 11:51 AM EDT) Sodium 143 135 - 145 mmol/L [facility] Potassium 4.3 3.3 - 5.1 mmol/L [facility] Chloride 108 96 - 108 mmol/L [facility] Carbon Dioxide 29 22 - 29 mmol/L [facility] Anion Gap 10(L) 12 - 20 [facility] Urea Nitrogen (BUN) 11 9 - 16 mg/dL [facility] Creatinine, Serum 0.59 0.5 - 1.4 mg/dL [facility] Creatinine Clr Calc Pharmacy 72.8 [facility] Comment:Provided height and weight: 160.02 cm,73.028 kg.eGFR (calculated from the MDRD study equation) and eCrCl(calculated from the Cockcroft-Gault equation) are based ondifferent parameters and may not yield comparable results.If eCrCl result is absurd, please check patient'sheight/weight. Estimated Glomerular Filt Rate >60 [facility] Comment:Chronic Kidney Disea se: Estimated GFR < 60 mL/min/1.06p5Qqycgf Kidney Disease: Estimated GFR < 15 mL/min/1.73m2 Glucose 99 60 - 115 mg/dL [facility] Calcium 8.2(L) 8.4 - 10.2 mg/dL [facility] Bilirubin, Total 0.9 0.0 - 1.0 mg/dL [facility] Aspartate Amino Transferase 25 5 - 31 U/L [facility] Alanine Aminotransferase 24 0 - 31 U/L [facility] Total Protein 5.4(L) 6.5 - 8.0 g/dL [facility] Albumin Level 3.8 3.5 - 5.0 g/dL [facility] Alkaline Phosphatase 45 39 - 117 U/L [facility] 05/30/2025 11:5 1 AM EDT 05/30/2025 11:55 AM EDT us Generic External Data Provider LAB BLOOD ORDERAB LES Final Result Performing Organization Address City/State/[facility] Co de Phone Number [facility] [address] [place] [phone] * XR Chest 1 View (05/18/2025 3:16 AM EDT) Only the most recent of2 resultswithin the time period is included. Anatomical Region Laterality Modality Chest Radiographic Ewelina ging 05/18/2025 3:16 AM EDT Narrative 05/18/2025 3:17 AM EDT [address] [address] XRay Report Signed Patient: Susan Chan MR#: [id number] 7 : 1945 Acct:[id number] Age/Sex: 79 / F ADM Date: 05/18/25 Loc: .ED Attending Dr: Ordering Physician: Generic ED Physician Date of Service: 05/18/25 Procedure(s): XR chest 1V Accession Number(s): [id number] cc: Generic ED Physician; Name,Joseph KIM CLINICAL HISTORY: sob 1 view chest x-ray Comparison: CR - XR CHEST 1V - 04/27/25 08:23 EDT Findings: Normal heart size. Calcified thoracic aorta. Slight retrocardiac opacity, more apparent than prior chest radiograph on 04/27/2025 that may represent a pneumonia. No focal consolidations elsewhere. No pleural effusions. Degenerative changes of both shoulders. IMPRESSION: Slight retrocardiac opacity that may represent a pneumonia, more apparent than 04/27/2025. This document has been electronically signed by: Micah Shin MD on 05/18/2025 03:16:01 Dictated By: Micah Shin MD Signed By: <Electronically signed by Micah Shin MD in OV> 05/18/25315 DD/ 5 TD/TT: 05/18/25315 Dairy Worker: Procedure Note Donotuseinterpreter, Image - 05/18/2025 [place] [address] XRay Report Signed Patient: Susan ChanMR#: [id number] 7 : 5Acct:[id number] Age/Sex: 79 / FADM Date: 05/18/25 Loc: .ED Attending Dr: Ordering Physician: Generic ED Physician Date of Service: 05/18/25 Procedure(s): XR chest 1V Accession Number(s): [id number] cc: Generic ED Physician; Name,Joseph KIM CLINICAL HISTORY: sob 1 view chest x-ray Comparison: CR - XR CHEST 1V - 04/27/25 08:23 EDT Findings: Normal heart size. Calcified thoracic aorta. Slight retrocardiac opacity, more apparent than prior chest radiograph on 04/27/2025 that may represent a pneumonia. No focal consolidations elsewhere. No pleural effusions. Degenerative changes of both shoulders. IMPRESSION: Slight retrocardiac opacity that may represent a pneumonia, more apparent than 04/27/2025. This document has been electronically signed by: Micah Shin MD on 05/18/2025 03:16:01 Dictated By: Micah Shin MD Signed By: <Electronically signed by Micah Shin MD in OV> 05/18/25315 DD/ 5 TD/TT: 05/18/25315 Dairy Worker: [facility] External Provider IMG XR PROCEDURES Final Result * CTA Chest PE Protocal (04/27/2025 1:21 PM EDT) Anatomical Region Laterality Modality Body, Chest Computed Tomogra phy 04/27/2025 1:21 PM EDT Narrative 04/27/2025 1:22 PM EDT [address] [address] [address] Scan Report Signed Patient: Susan Chan MR#: [id number] 7 : 1945 Acct:[id number] Age/Sex: 79 / F ADM Date: 04/26/25 Loc: HO.ED Attending Dr: Ordering Physician: Han Montaño MD Date of Service: 04/27/25 Procedure(s): CT angio chest PE protocol Accession Number(s): [id number] cc: Han Montaño MD; Name,Joseph KIM Report Number: [id number]: Total DLP = 485.00 mGy-cm CLINICAL HISTORY: [...] 04/27/25 1321 DD/ 1321 TD/TT: 04/27/25 1321 Dairy Worker: Procedure Note Donotuseinterpreter, Image - 04/27/[address] [place] [address] CT Scan Report Signed Patient: Susan ChanMR#: [id number] 7 : 5Acct:[id number] Age/Sex: 79 / FADM Date: 04/26/25 Loc: HO.ED Attending Dr: Ordering Physician: Han Montaño MD Date of Service: 04/27/25 Procedure(s): CT angio chest PE protocol Accession Number(s): [id number] cc: Han Montaño MD; Name,Joseph KIM Report Number: [id number]: Total DLP = 485.00 mGy-cm CLINICAL HISTORY: [...] 04/27/25 1321 DD/ 1321 TD/TT: 04/27/25 1321 Dairy Worker: [facility] External Provider IMG CT PROCEDURES Edited Result - Final * (ABNORMAL) VENOUS BLOOD GAS (04/27/2025 11:27 AM EDT) VBG pH 7.32 7.32 - 7.43 [facility] Comment:METER #: [id number] additional_comment: Te hernandez VBG PCO2 69 mmHg [facility] Comment:METER #: [id number] additional_comment: Te hernandez VBG PO2 36 mmHg [facility] Comment:METER #: [id number] additional_comment: Te ANNEG Base Excess 7.8 mmol/L [facility] Comment:METER #: [id number] additional_comment: Te JUÁREZ HCO3 36(H) 22 - 26 mmol/L [facility] Comment:METER #: [id number] additional_comment: Te hernandez O2 Sat, Huang 46.0 % [facility] Comment:METER #: [id number] additional_comment: Te hernandez 04/27/2025 11:2 7 AM EDT 04/27/2025 11:31 AM EDT us Generic External Data Provider LAB BLOOD ORDERAB LES Final Result [facility] [address] [place] [phone] * (ABNORMAL) Urinalysis, Complete, with Reflex to Culture (04/27/2025 1:53 AM EDT) Color Urine Yellow [facility] Appearance Urine Clear [facility] PH 6.5 5.0 - 9.0 [facility] Glucose Urine UA Negative Negative mg/dL [facility] Urine Blood Small (1+)(A) Negative [facility] Specific Mcgehee - Urine 1.025 1.005 - 1.025 [facility] Urine Protein Trace Neg-Trace mg/dL [facility] Urine Ketones Negative Negative mg/dL [facility] Nitrite Urine Negative Negative [facility] Leukocyte Esterase Urine Negative Negative [facility] RBC Urine 11-20(A) 0 - 2 /HPF [facility] Urine WBC 0-5 0 - 5 /HPF [facility] Urine Squamous Epithelial Cell 0-2 0 - 2 /HPF [facility] Urine Bacteria None Seen None Seen [facility] Hyaline Casts, Urine 0-2 0 - 2 /LPF [facility] 04/27/2025 1:53 AM EDT 04/27/2025 1:57 AM EDT Narrative [facility] - 04/27/2025 2:27 AM EDT [id number], Catheterized us Generic External Data Provider LAB URINE ORDERAB LES Final Result [facility] [address] [place] [phone] * (ABNORMAL) Drug Monitoring, Panel 1, Screen, Urine (04/27/2025 1:53 AM EDT) Opiate Screen Urine POSITIVE(A) Not Detect [facility] Comment:Opiate cut-off is 30 0 ng/mL.Positive results are unconfirmed and should not be used fornon-medical purposes. Barbiturates, Urine Not Detected Not Detect [facility] Comment:Barbiturate cut-off is 200 ng/mL.Positive results are unconfirmed and should not be used fornon-medical purposes. Phencyclidine Screen Urine Not Detected Not Detect [facility] Comment:Phencyclidine cut-of f is 25 ng/mL.Positive results are unconfirmed and should not be used fornon-medical purposes. Amphetamine Screen Urine Not Detected Not Detect [facility] Comment:Amphetamine cut-off is 1000 ng/mL.Positive results are unconfirmed and should not be used fornon-medical purposes. Benzodiazepines Screen Urine Not Detected Not Detect [facility] Comment:Benzodiazepine cut-o ff is 200 ng/mL.Positive results are unconfirmed and should not be used fornon-medical purposes. Cocaine Screen Urine Not Detected Not Detect [facility] Comment:Cocaine cut-off is 3 00 ng/mL.Positive results are unconfirmed and should not be used fornon-medical purposes. Cannabinoid Screen Urine Not Detected Not Detect [facility] Comment:Cannabinoid cut-off is 50 ng/mL.Positive results are unconfirmed and should not be used fornon-medical purposes. Methadone Screen, Urine Not Detected Not Detect ng/mL [facility] Comment:Methadone cut-off is 300 ng/mL.Positive results are unconfirmed and should not be used fornon-medical purposes. FENTANYL URINE Not Detected Not Detect [facility] Comment:Fentanyl cut-off is 1 ng/mL.Positive results are unconfirmed and should not be used fornon-medical purposes. Oxycodone Urine Screen Positive(A) Not Detect ng/mL [facility] Comment:Oxycodone cut-off is 100 ng/mL.Positive results are unconfirmed and should not be used fornon-medical purposes. Buprenorphine Screen Not Detected Not Detect ng/mL [facility] Comment:Buprenorphine cut-of f is 5 ng/mL.Positive results are unconfirmed and should not be used fornon-medical purposes. 04/27/2025 1:53 AM EDT 04/27/2025 1:58 AM EDT Generic External Data Provider LAB URINE ORDERAB LES Final Result Performing Organization Address City/State/[facility] Co de Phone Number [facility] [address] [place] [phone] * CT Head w/o Contrast (04/26/2025 11:22 PM EDT) Anatomical Region Laterality Modality Head, Neck Computed Tomogra phy 04/26/2025 11:2 2 PM EDT Narrative 04/26/2025 11:24 PM EDT [address] [address] [address] Scan Report Signed Patient: Susan Chan MR#: [id number] 7 : 1945 Acct:[id number] Age/Sex: 79 / F ADM Date: 04/26/25 Loc: HO.ED Attending Dr: Ordering Physician: Anne Aldridge MD Date of Service: 04/26/25 Procedure(s): CT head/brain wo IV con Accession Number(s): [id number] cc: Joseph Magana MD; Anne Aldridge MD Report Number: [id number]: Total DLP = 1265.00 mGy-cm CLINICAL HISTORY: [...] in OV> 04/26/252322 DD/ 21 TD/TT: 04/26/252321 Dairy Worker: Procedure Note Donotuseinterpreter, Image - 04/26/[address] [place] [address] [address] Scan Report Signed Patient: Susan ChanMR#: [id number] 7 : 5Acct:[id number] Age/Sex: 79 / FADM Date: 04/26/25 Loc: HO.ED Attending Dr: Ordering Physician: Anne Aldridge MD Date of Service: 04/26/25 Procedure(s): CT head/brain wo IV con Accession Number(s): [id number] cc: Name,Joseph KIM; Anne Aldridge MD Report Number: [id number]: Total DLP = 1265.00 mGy-cm CLINICAL HISTORY: [...] in OV> 04/26/252322 DD/ 21 TD/TT: 04/26/252321 Dairy Worker: us [facility] External Provider IMG CT PROCEDURES Edited Result - Final * CT Cervical Spine w/o Contrast (04/26/2025 11:21 PM EDT) Anatomical Region Laterality Modality Spine, C-spine Computed Tomogra phy 04/26/2025 11:2 1 PM EDT Narrative 04/26/2025 11:23 PM EDT [address] [address] [address] Scan Report Signed Patient: Susan Chan MR#: [id number] 7 : 1945 Acct:[id number] Age/Sex: 79 / F ADM Date: 04/26/25 Loc: HO.ED Attending Dr: Ordering Physician: Anne Aldridge MD Date of Service: 04/26/25 Procedure(s): CT cervical spine wo IV con Accession Number(s): [id number] cc: Name,Joseph KIM; Anne Aldridge MD Report Number: [id number]: Total DLP = 283.00 mGy-cm CLINICAL HISTORY: [...] in OV> 04/26/252321 DD/ 20 TD/TT: 04/26/252320 Dairy Worker: Procedure Note Donotgeriinterpreter, Image - 04/26/[address] [address] [address] Scan Report Signed Patient: Susan ChanMR#: [id number] 7 : 5Acct:[id number] Age/Sex: 79 / FADM Date: 04/26/25 Loc: HO.ED Attending Dr: Ordering Physician: Anne Aldridge MD Date of Service: 04/26/25 Procedure(s): CT cervical spine wo IV con Accession Number(s): [id number] cc: Joseph Magana MD; Anne Aldridge MD Report Number: [id number]: Total DLP = 283.00 mGy-cm CLINICAL HISTORY: [...] in OV> 04/26/252321 DD/ 20 TD/TT: 04/26/252320 Dairy Worker: [facility] External Provider IMG CT PROCEDURES Edited Result - Final * XR Knee 1-2 Views Right (04/26/2025 11:07 PM EDT) Anatomical Region Laterality Modality Lower Extremities, Knee Right Radiogra phic Imaging 04/26/2025 11:0 7 PM EDT Narrative 04/26/2025 11:08 PM EDT [address] [address] XRay Report Signed Patient: Susan Chan MR#: [id number] 7 : 1945 Acct:[id number] Age/Sex: 79 / F ADM Date: 04/26/25 Loc: HO.ED Attending Dr: Ordering Physician: Anne Aldridge MD Date of Service: 04/26/25 Procedure(s): XR knee RT 2V Accession Number(s): [id number] cc: Joseph Magana MD; Anne Aldridge MD [...] in OV> 04/26/252306 DD/ 06 TD/TT: 04/26/252306 Dairy Worker: Procedure Note Donotgeriinterpreter, Image - 04/26/2025 [place] [address] XRay Report Signed Patient: Susan ChanMR#: [id number] 7 : 5Acct:[id number] Age/Sex: 79 / FADM Date: 04/26/25 Loc: .ED Attending Dr: Ordering Physician: Anne Aldridge MD Date of Service: 04/26/25 Procedure(s): XR knee RT 2V Accession Number(s): [id number] cc: Name,Joseph KIM; Anne Aldridge MD CLINICAL HISTORY: fall, pain [...] in OV> 04/26/252306 DD/ 06 TD/TT: 04/26/252306 Dairy Worker: [facility] External Provider IMG XR PROCEDURES Edited Result - Final * XR Elbow 1-2 Views Left (04/26/2025 11:05 PM EDT) Anatomical Region Laterality Modality Upper Extremities, Elbow Left Radiogr aphic Imaging 04/26/2025 11:0 5 PM EDT Narrative 04/26/2025 11:07 PM EDT [address] [address] XRay Report Signed Patient: Susan Chan MR#: [id number] 7 : 1945 Acct:[id number] Age/Sex: 79 / F ADM Date: 04/26/25 Loc: HO.ED Attending Dr: Ordering Physician: Anne Aldridge MD Date of Service: 04/26/25 Procedure(s): XR elbow LT 2V Accession Number(s): [id number] cc: Joseph Magana MD; Anne Aldridge MD [...] in OV> 04/26/252305 DD/ 04 TD/TT: 04/26/252304 Dairy Worker: Procedure Note Donotgeriinterpreter, Image - 04/26/[address] [address] XRay Report Signed Patient: Susan ChanMR#: [id number] 7 : 5Acct:[id number] Age/Sex: 79 / FADM Date: 04/26/25 Loc: HO.ED Attending Dr: Ordering Physician: Anne Aldridge MD Date of Service: 04/26/25 Procedure(s): XR elbow LT 2V Accession Number(s): [id number] cc: Joseph Magana MD; Anne Aldridge MD [...] in OV> 04/26/252305 DD/ 04 TD/TT: 04/26/252304 Dairy Worker: [facility] External Provider IMG XR PROCEDURES Edited Result - Final from Last 3 Months Insurance MEDICARE [facility] [employer] Care Teams Irish Moss Operator Relationship Specialty Start Date End Date Name, MD Joseph [address] [place] [address] PCP - General Family Medicine 01/21/22
--- OUTSIDE RECORDS SUMMARY | 2025-05-30 12:57 | XMS_ITS | Encounter Summary ---
Author Organization [employer] Address [address] [facility] [address] [place] [address] Care Team Providers Care Multicraft Operator Name Role Phone Name, Joseph KIM Primary Care Provider [phone] Encounter Details Date Type Department Care Team (Late st Contact Info) Description 07/26/2024 Orders Only [facility] [address] [place], [place] [phone] Name, MD Joseph [address] [place], [place] [phone] Iron deficiency anemia, unspecified iron deficiency anemia [...] Info) Description 06/04/2025 11:30 AM EDT Telemedicine [facility] [address] [place] [address] Kaitlynn Landrum RN documented as of this encounter Visit Diagnoses Diagnosis Iron deficiency anemia, unspecified iron deficiency anemia type documented in this encounter Additional Health Concerns Assessment Noted Time PHQ-9 Depression Total Score: 0 01/30/20 24 11:07 AM EDT documented as of this encounter Care Teams Multicraft Operator Relationship Specialty Start Date End Date Name, MD Joseph [address] [place] [address] PCP - General Family Medicine 01/21/22 documented as of this encounter
--- OUTSIDE RECORDS SUMMARY | 2025-05-30 12:57 | XMS_ITS | Encounter Summary ---
Author Organization [employer] Address [address] [facility] [address] [place] [address] Care Team Providers Care Supervisor Fur Dressing Name Role Phone Name, Joseph KIM Primary Care Provider [phone] Reason for Visit * Reason Onset Date Comments Med Refill 08/28/2023 Encounter Details Date Type Department Care Team ([facility] st Contact Info) Description 08/28/2023 Telephone [facility] [address] [place], [place] [phone] Name, MD Joseph [address] [place], [place] [phone] Med Refill Social History Tobacco Use Types [...] t he electric, gas, oil or water [employer] threatened to shut off services in your [...] MCG/ACT inhaler to be sent to [facility] [place] [address] Reuben Forbes documented in this encounter Plan of Treatment Upcoming Encounters Date Type Department Care Team (Late st Contact Info) Description 06/04/2025 11:30 AM EDT Telemedicine [facility]INE [address] [place] [address] Kaitlynn Landrum, RN documented as of this encounter Visit Diagnoses Not on filedocumented in this encounter Additional Health Concerns Assessment Noted Time PHQ-9 Depression Total Score: 4 09/22/19 11:14 AM EST documented as of this encounter Care Teams Supervisor Fur Dressing Relationship Specialty Start Date End Date Name, MD Joseph [address] [place] [address] PCP - General Family Medicine 01/21/22 documented as of this encounter
--- OUTSIDE RECORDS SUMMARY | 2025-05-30 12:57 | XMS_ITS | Clinical Summary ---
Author Organization [facility] Address [address] [facility] [address] [place] [address] Phone Care Team Providers Care Ballistics Teacher Name Role Phone Kishore Enamorado MD Primary Care Provider [phone] Allergies Active Allergy Reactions Criticality Noted Date [...] an evaluation. Since she lives closer to [place] more than likely I will follow-up with [...] VACCINE (1 - 1-dose 75+ series) 11/18/2019 INFLUENZA VACCINE (#1) 2025 6, 10/20/2015, 06/21/2012, Additional history exists COVID-19 VACCINE (2 - 2024- season) 2025 10/04/2021 Adult Td,Tdap Booster 2029 11/18/2019 HEPATITIS A [...] topic Medical Devices Not on file Insurance [facility] PLAN HEALTH PLAN PLAN HEALTH PLAN PLAN PLAN [place] [address] [place] [address] PLAN Care Teams Ballistics Teacher Relationship Specialty Start Date End Date Kishore Enamorado MD [address] [place] [address] [phone] Amanda ROXANN [phone] [email or web address] PCP - General Family Medicine 04/16/19 Additional Source Comments The information contained in this document represents components of the legal health record. It is not the complete legal health record.[facility]
--- OUTSIDE RECORDS SUMMARY | 2025-05-30 12:57 | XMS_ITS | Clinical Summary ---
Author Organization [facility] Address [address] [place] [address] Phone Care Team Providers Care Sales Planning Manager Name Role Phone Name, Joseph KIM Primary Care Provider [phone] Allergies Active Allergy Reactions Criticality Noted Date Comments Penicillins Hives,Rash Low 04/04/2008 Sulfa (Sulfonamide Antibiotics) Hives 11/2015 Medications ALPRAZolam (XANAX) 0.5 mg tablet Take 1 tablet (0.5 mg total) by mouth every 8 hours. 10/05/2015 Active DULoxetine (CYMBALTA) [address] capsule Take 1 capsule (30 mg total) by mouth 2 times daily. 04/04/2025 6 Active oxyCODONE-aceta minophen (PERCOCET) 10-325 mg per tablet Take 1 tablet by mouth every 6 hours as needed. Max Daily Amount: 4 tablets 08/28/2024 5 Active morphine (MS CONTIN) 15 mg 12 hr tablet Take 1 tablet (15 mg total) by mouth 2 times daily. Max Daily Amount: 30 mg 05/06/2025 5 Active metoprolol succinate (TOPROL-XL) 25 mg 24 hr tablet Take 1 tablet (25 mg total) by mouth daily. 02/10/2021 Active Active Problems Problem Noted Date Diagnosed Date Dehydration 05/28/2025 Encounters Date Type Department Care Team Description 05/28/2025 3:24 PM EDT - 05/29/2025 1:23 PM EDT Hospital Encounter Urology Unit [address] [place] [address] Yaya Carrasquillo MD Wyman, Tim, MD Seralathan, Manikandan, MD [facility] Dieudonne Hutchinson MD Dehydration (Primary Dx); Dehydration, mild; Hypomagnesemia; Hypokalemia Discharge Disposition: Home-Health Care c from Last 3 Months Surgical History Surgery Date Site/Laterality Comments HYSTERECTOMY PROCEDURE: HISTORICAL HYSTERECTOMY; COMMENT: pelvic peritonitis COLONOSCOPY W/ POLYPECTOMY 08/24/2009 PROCEDURE: AR COLSC FLX W/RMVL OF TUMOR POLYP LESION SNARE TQ; COMMENT: small rectal polyp: Tubular adenoma. 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 Unspecified essential hypertension DX:Unspecified essential hypertension Family History Medical History Relation Name Comments Autoimmune disease Neg Hx Blindness Neg Hx Breast cancer Neg Hx Cataracts Neg Hx Colon cancer Neg Hx Coronary artery disease Neg Hx Diabetes Neg Hx Glaucoma Neg Hx Heart attack Neg Hx Heart failure Neg Hx Hyperlipidemia Neg Hx Hypertension Neg Hx Macular degeneration Neg Hx Mental illness Neg Hx Prostate cancer Neg Hx Sleep apnea Neg Hx Strabismus Neg Hx Thyroid disease Neg Hx Relation Name Status Comments Father Dementia Mother COPD Sister 1 Lung cancer Sister 2 Alive Son 1 Alive Son 2 Alive Social History Tobacco Use Types Packs/Day Years [...] Orientation Straight 05/28/2025 3: 51 PM EDT Obstetrics History Last Filed Vital Signs Vital Sign Reading [...] Mass Index 30.29 05/28/2025 3:42 PM EDT Plan of Treatment Health Maintenance Due Date Last Done Comments Zoster Vaccines (1 of 2) 1994 Pneumococcal Vaccine: 50+ Years (2 of 2 - PCV) 02/10/2011 02/10/2010, 02/10/2010 RSV Immunization Adult Patients (1 - 1-dose 75+ series) 11/18/2019 Colorectal Cancer Screening: Stool Based Tests (FOBT/FIT) 08/17/2022 Medicare Annual Wellness Visit 08/17/2022 Osteoporosis Screening (Bone Density Screening) 08/17/2022 Social Influencers of Health Screening 08/17/2022 Depression Screening 09/18/2024 COVID-19 Vaccine ( season) 2025 11/01/2021, 10/04/2021 Influenza Vaccine (#1) 2025 6, 10/20/2015, 06/21/2012, Additional history exists Falls Risk Assessment 05/29/2026 05/29/2025 Hypertension/CHF/CAD Annual BMP Blood Test 05/29/2026 05/29/2025, 05/28/2025 DTaP,Tdap,and Td Vaccines (2 - Td or Tdap) 2029 11/18/2019 HIB Vaccines Aged Out No longer eligi [...] on patient's age to complete this topic MMR Vaccines Aged Out No longer eligi ble based on patient's age to complete this topic Meningococcal ACWY Vaccine Aged Out N o longer eligible based on patient's age to complete this topic Meningococcal B Vaccine Aged Out No l onger eligible based on patient's age to complete this topic RSV Immunization Patients Under 20 months Aged Out No longer eligible based on patient's age to complete this topic Varicella Vaccines Aged Out No longer eligible based on patient's age to complete this topic Procedures Procedure Name Priority Date/Time Associated Diagnosis Comments LACTATE Routine 05/29/2025 4:05 AM EDT CBC WITH AUTO DIFFERENTIAL Routine 05/29/2025 4:05 AM EDT CBC AND DIFFERENTIAL Routine 05/29/2025 4:05 AM EDT MAGNESIUM Routine 05/29/2025 4:05 AM EDT BASIC METABOLIC PANEL Routine 05/29/2025 4:05 AM EDT XR CHEST 2 VIEWS STAT 05/28/2025 6:04 PM EDT FORREST URINE CULTURE TUBE Routine 05/28/2025 5:37 PM EDT EXTRA TUBES Routine 05/28/2025 5:37 PM EDT URINALYSIS WITH REFLEX MICROSCOPIC STAT 05/28/2025 5:37 PM EDT URINALYSIS WITH REFLEX MICROSCOPIC STAT 05/28/2025 5:37 PM EDT ECG 12-LEAD STAT 05/28/2025 5:15 PM EDT MANUAL DIFFERENTIAL - SYSMEX WAM STAT 05/28/2025 4:36 PM EDT CBC WITH AUTO DIFFERENTIAL STAT 05/28/2025 4:36 PM EDT CBC AND DIFFERENTIAL STAT 05/28/2025 4:36 PM EDT TYPE AND SCREEN STAT 05/28/2025 4:36 PM EDT MAGNESIUM STAT 05/28/2025 4:36 PM EDT COMPREHENSIVE METABOLIC PANEL STAT 05/28/2025 4:36 PM EDT from Last 3 Months Results * (ABNORMAL) CBC auto differential (05/29/2025 4:05 AM EDT) Only the most recent of2 resultswithin the time period is included. [facility] Signature WBC 8.0 4.8 - 10.8 K/mcL LAB HEMETOLOGY METHOD 05/29/2025 5:[address] [facility] RBC 2.80(L) 3.80 - 4.80 M/mcL LAB HEMETOLOGY METHOD 05/29/2025 5:[address] [facility] Hemoglobin 8.2(L) 11.5 - 16.0 g/dL LAB HEMETOLOGY METHOD 05/29/2025 5:[address] [facility] Hematocrit 26.8(L) 35.0 - 47.0 % LAB HEMETOLOGY METHOD 05/29/2025 5:[address] [facility] MCV 97.5 79.0 - 98.0 FL LAB [facility]OLOG[facility] MCH 29.8 27.0 - 32.0 pcg LAB HEMETOLOGY METHOD 05/29/2025 5:[address] [facility] MCHC 30.6(L) 32.0 - 37.0 g/dL LAB HEMETOLOGY METHOD 05/29/2025 5:[address] [facility] RDW 14.4 11.0 - 15.0 % LAB HEMETOLOGY METHOD 05/29/2025 5:[address] [facility] Platelets 66(L) 130 - 400 K/mcL LAB HEMETOLOGY METHOD 05/29/2025 5:[address] [facility] Comment:reviewed by jaleel MCGRATH LAB HEMETOLOGY METHOD 05/29/2025 5:[address] [facility] Comment:Not Measured NRBC 0.0 <1.0 % LAB HEMETOLOGY METHOD 05/29/2025 5:[address] [facility] NRBC Absolute 0.00 <0.10 K/mcL LAB HEMETOLOGY METHOD 05/29/2025 5:[address] [facility] Neutrophils Relative 68.0 % LAB HEMETOLOGY METHOD 05/29/2025 5:[address] [facility] Lymphocytes Relative 19.3 % LAB HEMETOLOGY METHOD 05/29/2025 5:[address] [facility] Monocytes Relative 9.4 % LAB HEMETOLOGY METHOD 05/29/2025 5:[address] [facility] Eosinophils Relative 2.1 % LAB HEMETOLOGY METHOD 05/29/2025 5:[address] [facility] Basophils Relative 0.9 % LAB HEMETOLOGY METHOD 05/29/2025 5:[address] [facility] Immature Granulocytes Relative 0.3 % LAB HEMETOLOGY METHOD 05/29/2025 5:[address] [facility] Neutrophils Absolute 5.43 1.50 - 7.00 K/mcL LAB HEMETOLOGY METHOD 05/29/2025 5:[address] [facility] Lymphocytes Absolute 1.54 1.00 - 5.00 K/mcL LAB HEMETOLOGY METHOD 05/29/2025 5:[address] [facility] Monocytes Absolute 0.75 0.20 - 1.00 K/mcL LAB HEMETOLOGY METHOD 05/29/2025 5:28 AM EDT [facility] Eosinophils Absolute 0.17 0.00 - 0.50 K/[facility] LAB HEMETOLOGY METHOD 05/29/2025 5:28 AM EDT [facility] Basophils Absolute 0.07 0.00 - 0.20 K/[facility] LAB HEMETOLOGY METHOD 05/29/2025 5:28 AM EDT [facility] Immature Granulocytes Absolute 0.02 0.00 - 0.03 K/[facility] LAB HEMETOLOGY METHOD 05/29/2025 5:28 AM EDT [facility] Blood Venous blood specimen / Unknown Venipuncture / Unknown 05/29/2025 4:05 AM EDT 05/29/2025 4:30 AM EDT Aylin JUNE LAB BLOOD ORDERABLES Fi nal Result Performing Organization Address City/[facility]/ZIP Co de Phone Number [facility] [address] [place] [address], [place] [phone] * (ABNORMAL) Magnesium (05/29/2025 4:05 AM EDT) Only the most recent of2 resultswithin the time period is included. Magnesium 1.8(L) 1.9 - 2.6 mg/dL LAB CHEMISTRY METHOD 05/29/2025 4:53 AM EDT [facility] Blood Venous blood specimen / Unknown Venipuncture / Unknown 05/29/2025 4:05 AM EDT 05/29/2025 4:30 AM EDT us Aylin JUNE LAB BLOOD ORDERABLES Fi nal Result Performing Organization Address City/[facility]/ZIP Co de Phone Number [facility] [address] [place] [address], [place] [phone] * Lactate (05/29/2025 4:05 AM EDT) Lactate 0.7 0.4 - 2.0 mmol/L LAB CHEMISTRY METHOD 05/29/2025 4:[address] [facility] Blood Venous blood specimen / Unknown Venipuncture / Unknown 05/29/2025 4:05 AM EDT 05/29/2025 4:30 AM EDT Aylin JUNE LAB BLOOD ORDERABLES Fi nal Result [facility] [address] [place] [address], * (ABNORMAL) Basic metabolic panel (05/29/2025 4:05 AM EDT) [facility] Sodium 145 133 - 145 mmol/L LAB CHEMISTRY METHOD 05/29/2025 5:[address] [facility] Potassium 3.5 3.5 - 5.5 mmol/L LAB CHEMISTRY METHOD 05/29/2025 5:[address] [facility] Chloride 111(H) 96 - 110 mmol/L LAB CHEMISTRY METHOD 05/29/2025 5:[address] [facility] CO2 30 21 - 32 mmol/L LAB CHEMISTRY METHOD 05/29/2025 5:[address] [facility] Anion Gap 4 3 - 11 LAB CHEMISTRY METHOD 05/29/2025 5:[address] [facility] Glucose 107(H) 70 - 100 mg/dL LAB CHEMISTRY METHOD 05/29/2025 5:[address] [facility] BUN 14 5 - 25 mg/dL LAB CHEMISTRY METHOD 05/29/2025 5:[address] [facility] Creatinine 0.49(L) 0.50 - 1.10 mg/dL LAB CHEMISTRY METHOD 05/29/2025 5:[address] [facility] eGFR 95 >=60 mL/min/1. 73m2 LAB CHEMISTRY METHOD 05/29/2025 5:07 AM EDT [facility] Comment:Calculation based on the Chronic Kidney Disease Epidemiology Collaboration (CKD-EPI) equation refit without adjustment for race. BUN/Creatinine Ratio 28.6 LAB CHEMISTRY METHOD 05/29/2025 5:07 AM EDT [facility] Calcium 8.0(L) 8.5 - 10.5 mg/dL LAB CHEMISTRY METHOD 05/29/2025 5:07 AM EDT [facility] Blood Venous blood specimen / Unknown Venipuncture / Unknown 05/29/2025 4:05 AM EDT 05/29/2025 4:30 AM EDT Aylin JUNE LAB BLOOD ORDERABLES Fi nal Result [facility] [address] [place] [address], * XR Chest 2 Views (05/28/2025 6:04 PM EDT) Anatomical Region Laterality Modality Body Radiographic Ewelina ging 05/29/2025 8:17 AM EDT Impressions 05/29/2025 8:18 AM EDT FINDINGS/IMPRESSION: No pneumonia or pulmonary edema. No pleural effusion or pneumothorax. Cardiac silhouette is mildly enlarged. Mild degenerative changes seen throughout the bones. -------- FINAL REPORT -------- Dictated By: ASA LARKIN Dictated Date: 05/29/2025 08:17 ET Assigned Physician: ASA LARKIN Reviewed and Electronically Signed By: ASA LARKIN Signed Date: 05/29/2025 08:18 ET Workstation ID: [id number] Transcribed By: Self Edit Transcribed Date: 05/29/2025 08:17 ET Narrative 05/29/2025 8:18 AM EDT XR CHEST 2 VIEWS INDICATION: Pneumonia TECHNIQUE: XR CHEST 2 VIEWS COMPARISON: No priors available. Procedure Note Asa Larkin MD - 05/29/2025 XR CHEST 2 VIEWS INDICATION: Pneumonia TECHNIQUE: XR CHEST 2 VIEWS COMPARISON: No priors available. IMPRESSION: FINDINGS/IMPRESSION: No pneumonia or pulmonary edema. No pleural effusionor pneumothorax. Cardiac silhouette is mildly enlarged. Milddegenerative changes seen throughout the bones. -------- FINAL REPORT -------- Dictated By: ASA LARKIN Dictated Date: 05/29/2025 08:17 ET Assigned Physician: ASA LARKIN Reviewed and Electronically Signed By: ASA LARKIN Signed Date: 05/29/2025 08:18 ET Workstation ID: [id number] Transcribed By: Self Edit Transcribed Date: 05/29/2025 08:17 ET us Yaya Carrasquillo MD IMG XR PROCEDURES Final Resu lt * (ABNORMAL) Urinalysis with reflex microscopic (05/28/2025 5:37 PM EDT) Specific [place] Urine 1.026 1.003 - 1.030 LAB URINALYSIS - AUTOMATED METHOD 05/28/2025 6:[address] [facility] pH, Urine 6.0 5.0 - 8.0 pH LAB URINALYSIS - AUTOMATED METHOD 05/28/2025 6:[address] [facility] Leukocytes, Urine Trace(A) Negative LAB URINALYSIS - AUTOMATED METHOD 05/28/2025 6:[address] [facility] Nitrite, Urine Negative Negative LAB URINALYSIS - AUTOMATED METHOD 05/28/2025 6:[address] [facility] Protein, Urine 30(A) <=Trace mg/dL LAB URINALYSIS - AUTOMATED METHOD 05/28/2025 6:[address] [facility] Glucose, Urine Negative Negative mg/dL LAB URINALYSIS - AUTOMATED METHOD 05/28/2025 6:[address] [facility] Ketones, Urine >=80(A) Negative mg/dL LAB URINALYSIS - AUTOMATED METHOD 05/28/2025 6:[address] [facility] Urobilinogen, Urine 1.0 0.2 - 1.0 mg/dL LAB URINALYSIS - AUTOMATED METHOD 05/28/2025 [facility] Bilirubin, Urine Negative Negative LAB URINALYSIS - AUTOMATED METHOD 05/28/2025 [facility] Blood, Urine Small(A) Negative LAB URINALYSIS - AUTOMATED METHOD 05/28/2025 6:[address] [facility] RBC, Urine 12.5(H) 0 - 4 /HPF LAB URINALYSIS - AUTOMATED METHOD 05/28/2025 6:[address] [facility] WBC, Urine 5.8(H) 0 - 4 /HPF LAB URINALYSIS - AUTOMATED METHOD 05/28/2025 6:[address] [facility] Squamous Epithelial, Urine 54 0 - 60 /LPF LAB URINALYSIS - AUTOMATED METHOD 05/28/2025 6:[address] [facility] Bacteria, Urine Negative Negative /HPF LAB URINALYSIS - AUTOMATED METHOD 05/28/2025 6:[address] [facility] Hyaline Casts, Urine 3.6(H) 0 - 3 /LPF LAB URINALYSIS - AUTOMATED METHOD 05/28/2025 6:[address] [facility] Urine Urine specimen obtained by clean catch procedure / Unknown Non-blood Collection / Unknown 05/28/2025 5:37 PM EDT 05/28/2025 5:52 PM EDT us Yaya Carrasquillo MD LAB URINE ORDERABLES Final R esult [facility] [address] [place] [address], * Forrest urine culture tube (05/28/2025 5:37 PM EDT) Extra Tube Hold for add-ons. 05/28/2025 7:01 PM EDT [facility] Comment:Auto resulted. Urine Urine specimen obtained by clean catch procedure / Unknown 05/28/2025 5:37 PM EDT 05/28/2025 5:52 PM EDT Yaya Carrasquillo MD LAB URINE ORDERABLES Final R esult Performing Organization Address City/[facility]/ZIP Co de Phone Number [facility] [address] [place] [address], [place] [phone] * ECG 12 lead (05/28/2025 5:15 PM EDT) Pathologist [facility] Ventricular Rate ECG 95 BPM GEMUSE Atrial Rate 95 BPM GEMUSE P-R Interval 150 ms GEMUSE QRS Duration 88 ms GEMUSE Q-T Interval 406 ms GEMUSE QTc 510 ms GEMUSE P Wave [place] 51 degrees GEMUSE R [place] -32 degrees GEMUSE T [place] 48 degrees GEMUSE ECG Interpretation Normal sinus rhythm Left axis deviation Minimal voltage criteria for LVH, may be normal variant ( Sokolow-Grant ) Inferior infarct , age undetermined Prolonged QT No previous ECGs available Confirmed by GORDY MANCIA ([id number]) on 05/28/2025 8:11:30 PM GEMUSE 05/28/2025 5:15 PM EDT 05/28/2025 8:11 PM EDT Yaya Carrasquillo MD ECG ORDERABLES Final Result Performing Organization Address City/[facility]/ZIP Co de Phone Number GEMUSE * (ABNORMAL) Manual differential (05/28/2025 4:36 PM EDT) Neutrophils % 86.0 % LAB HEMETOLOGY METHOD 05/28/2025 5:29 PM EDT [facility] Lymphocytes % 10.0 % LAB HEMETOLOGY METHOD 05/28/2025 5:29 PM EDT [facility] Monocytes % 4.0 % LAB HEMETOLOGY METHOD 05/28/2025 5:29 PM EDT [facility] Eosinophils % 0.0 % LAB HEMETOLOGY METHOD 05/28/2025 5:29 PM EDT [facility] Basophils % 0.0 % LAB HEMETOLOGY METHOD 05/28/2025 5:[address] [facility] Neutrophils Absolute Manual 7.14(H) 1.50 - 7.00 K/mcL LAB HEMETOLOGY METHOD 05/28/2025 5:29 PM EDT [facility] Lymphocytes Absolute 0.83(L) 1.00 - 5.00 K/mcL LAB HEMETOLOGY METHOD 05/28[facility]20[facility] Monocytes Absolute Manual 0.33 0.20 - 1.00 K/mcL LAB HEMETOLOGY METHOD 05/28/2025 5:[facility] Eosinophils Absolute Manual 0.00 0.00 - 0.50 K/mcL LAB HEMETOLOGY METHOD 05/28/2025 5:[address] [facility] Basophils Absolute Manual 0.00 0.00 - 0.20 K/mcL LAB HEMETOLOGY METHOD 05/28/2025 5:29 [facility] Rbc Morphology Present( A) Consistent with indices, Normal for LAB HEMETOLOGY METHOD 05/28/2025 5:29 [facility] Comment:RBC: Morphology agre es with CBC Platelet Morphology - WAM See Note(A) Normal LAB HEMETOLOGY METHOD 05/28/2025 5:29 [facility] Comment:PLT: Large platelets seen Ovalocytes Present 5 - 10%(A) (none) LAB HEMETOLOGY METHOD 05/28/2025 5:29 [facility] Schistocytes Present < 5%(A) (none) LAB HEMETOLOGY METHOD 05/28/2025 5:[address] [facility] Blood Venous blood specimen / Unknown Venipuncture / Unknown 05/28/2025 4:36 PM EDT 05/28/2025 4:54 PM EDT us Yaya Carrasquillo MD LAB BLOOD ORDERABLES Final R esult Performing Organization Address [facility]/ZIP Co de Phone Number [facility] [address] [place] [address], [place] [phone] * Type and Screen (05/28/2025 4:36 PM EDT) Pathologist [facility] ABO Group O 05/28/2025 8:11 PM EDT [facility] Rh Type Positive 05/28/2025 8:11 PM EDT [facility] Antibody Screen Negative 05/28/2025 8:11 PM EDT [facility] Blood Venous blood specimen / Unknown Venipuncture / Unknown 05/28/2025 4:36 PM EDT 05/28/2025 4:54 PM EDT us Yaya Carrasquillo MD LAB BLOOD BANK TEST ORDERABL ES Final Result Performing Organization Address [facility] de Phone Number [facility] [address] [place] [address], [place] [phone] * (ABNORMAL) Comprehensive Metabolic Panel (CMP) (05/28/2025 4:36 PM EDT) Sodium 145 133 - 145 mmol/L LAB CHEMISTRY METHOD 05/28/2025 5:53 PM EDT [facility] Potassium 3.2(L) 3.5 - 5.5 mmol/L LAB CHEMISTRY METHOD 05/28/2025 5:53 PM EDT [facility] Chloride 111(H) 96 - 110 mmol/L LAB CHEMISTRY METHOD 05/28/2025 5:53 PM EDT [facility] CO2 29 21 - 32 mmol/L LAB CHEMISTRY METHOD 05/28/2025 5:[address] [facility] Anion Gap 5 3 - 11 LAB CHEMISTRY METHOD 05/28/2025 5:[address] [facility] Glucose 85 70 - 100 mg/dL LAB CHEMISTRY METHOD 05/28/2025 5:[address] [facility] BUN 17 5 - 25 mg/dL LAB CHEMISTRY METHOD 05/28/2025 5:[address] [facility] Creatinine 0.60 0.50 - 1.10 mg/dL LAB CHEMISTRY METHOD 05/28/2025 5:[address] [facility] eGFR 91 >=60 mL/min/1. 73m2 LAB CHEMISTRY METHOD 05/28/2025 5:[address] [facility] Comment:Calculation based on the Chronic Kidney Disease Epidemiology Collaboration (CKD-EPI) equation refit without adjustment for race. BUN/Creatinine Ratio 28.3 LAB CHEMISTRY METHOD 05/28/2025 5:[address] [facility] Calcium 8.4(L) 8.5 - 10.5 mg/dL LAB CHEMISTRY METHOD 05/28/2025 5:[address] [facility] AST (SGOT) 30 10 - 42 unit/L LAB CHEMISTRY METHOD 05/28/2025 5:[address] [facility] ALT (SGPT) 33 10 - 60 unit/L LAB CHEMISTRY METHOD 05/28/2025 5:[address] [facility] Alkaline Phosphatase 45 42 - 121 unit/L LAB CHEMISTRY METHOD 05/28/2025 5:[address] [facility] Total Protein 5.4(L) 6.0 - 8.0 g/dL LAB CHEMISTRY METHOD 05/28/2025 5:[address] [facility] Albumin 3.5 3.2 - 5.0 g/dL LAB CHEMISTRY METHOD 05/28/2025 5:53 PM EDT [facility] Total Bilirubin 0.9 0.0 - 1.4 mg/dL LAB CHEMISTRY METHOD 05/28/2025 5:53 PM EDT [facility] Blood Venous blood specimen / Unknown Venipuncture / Unknown 05/28/2025 4:36 PM EDT 05/28/2025 4:54 PM EDT us Yaya Carrasquillo MD LAB BLOOD ORDERABLES Final R esult [facility]) [facility] [address] [place] [address], [place] [phone] from Last 3 Months Additional Health Concerns Infection Onset Date Last Indicated Gastrointestinal Rule-Out 05/29/20252024 C. difficile Rule-Out 05/29/2025 05/29/2025 Insurance MEDICARE [facility] Advance Directives * Full Code - Default (Latest Code Status on File) Date Activated Date Inactivated Comments 05/29/2025 12:32 AM 05/29/2025 4:19 PM This is ord er is used when code status has not been discussed with the patient, or code status is otherwise unknown/unconfirmed To update the patient's code status, place a code status order. Do not modify or discontinue any currently active code status orders. Care Teams Sales Planning Manager Relationship Specialty Start Date End Date Name, MD [address] [place] [address] PCP - General Internal Medicine 05/28/25
--- OUTSIDE RECORDS SUMMARY | 2025-05-30 12:57 | XMS_ITS | Encounter Summary ---
Author Organization [employer] Address [address] [place] [address] Care Team Providers Care Supervisor Game Farm Name Role Phone Name, Joseph KIM Primary Care Provider [phone] Encounter Details Date Type Department Care Team (Late st Contact Info) Description 07/12/2024 Orders Only [facility] [address] [place], [place] [phone] Name, MD [address] [place], [place] [phone] Iron deficiency anemia, unspecified iron deficiency anemia [...] Info) Description 06/04/2025 11:30 AM EDT Telemedicine [facility] [address] [place] [address] Kaitlynn Landrum RN documented as of this encounter Visit Diagnoses Diagnosis Iron deficiency anemia, unspecified iron deficiency anemia type documented in this encounter Additional Health Concerns Assessment Noted Time PHQ-9 Depression Total Score: 0 01/30/20 24 11:07 AM EDT documented as of this encounter Care Teams Supervisor Game Farm Relationship Specialty Start Date End Date Name, MD [address] [place] [address] PCP - General Family Medicine 01/21/22 documented as of this encounter
--- OUTSIDE RECORDS SUMMARY | 2025-05-30 12:57 | XMS_ITS | Encounter Summary ---
Author Organization [employer] Address [address] [address] [place] [address] Care Team Providers Care Sugarcane Planter Name Role Phone Name, Joseph KIM Primary Care Provider [phone] Reason for Visit * Reason Onset Date Comments Med Refill 10/08/2024 Encounter Details Date Type Department Care Team ([facility] st Contact Info) Description 10/08/[address] [facility] [address] [place], [place] [phone] Name, MD [address] [place], [place] [phone] Med Refill Social History Tobacco Use Types [...] Fe) MG tablet To be sent to: [facility] [place] [address] Reuben Forbes documented in this encounter Plan of Treatment Upcoming Encounters Date Type Department Care Team (Late st Contact Info) Description 06/04/2025 11:[address] [facility] [address] [place] [address] Kaitlynn Landrum, SUNSHINE documented as of this encounter Visit Diagnoses Not on filedocumented in this encounter Additional Health Concerns Assessment Noted Time PHQ-9 Depression Total Score: 0 01/30/20 24 11:07 AM EDT documented as of this encounter Care Teams Sugarcane Planter Relationship Specialty Start Date End Date Name, MD [address] [place] [address] PCP - General Family Medicine 01/21/22 documented as of this encounter
--- OUTSIDE RECORDS SUMMARY | 2025-05-30 12:57 | XMS_ITS | Encounter Summary ---
Author Organization [employer] Address [address] [facility] 7t [place] [address] Care Team Providers Care Clinical Courier Name Role Phone Name, Joseph KIM Primary Care Provider [phone] Encounter Details Date Type Department Care Team (Late st Contact Info) Description 07/05/2024 Orders Only [facility] [address] [place], [place] [phone] Name, MD Joseph [address] [place], [place] [phone] Iron deficiency anemia, unspecified iron deficiency anemia [...] Info) Description 06/04/2025 11:30 AM EDT Telemedicine [facility] [address] [place] [address] Kaitlynn Landrum RN documented as of this encounter Visit Diagnoses Diagnosis Iron deficiency anemia, unspecified iron deficiency anemia type documented in this encounter Additional Health Concerns Assessment Noted Time PHQ-9 Depression Total Score: 0 01/30/20 24 11:07 AM EDT documented as of this encounter Care Teams Clinical Courier Relationship Specialty Start Date End Date Name, MD Joseph [address] [place] [address] PCP - General Family Medicine 01/21/22 documented as of this encounter
--- OUTSIDE RECORDS SUMMARY | 2025-05-30 12:58 | XMS_ITS | Encounter Summary ---
Author Organization [employer] Address [address] [facility] 7t [place] [address] Care Team Providers Care Door Repairer Bus Name Role Phone Name, Joseph KIM Primary Care Provider [phone] Encounter Details Date Type Department Care Team (Late st Contact Info) Description 05/30/2025 Orders Only GENERIC EXTERNAL DATA [...] Info) Description 06/04/2025 11:30 AM EDT Telemedicine [facility] [address] [place] [phone] Kaitlynn Landrum RN documented as of this encounter Procedures Procedure Name Priority Date/Time Associated Diagnosis Comments OBSX1 Routine 05/30/2025 11:51 AM EDT COMPLETE BLOOD COUNT MAN DIF Routine 05/30/2025 11:51 AM EDT APTT Routine 05/30/2025 11:51 AM EDT PROTHROMBIN TIME-INR Routine 05/30/2025 11:51 AM EDT LIPASE Routine 05/30/2025 11:51 AM EDT COMPREHENSIVE METABOLIC PANEL Routine 05/30/2025 11:51 AM EDT documented in this encounter Results * Lipase (05/30/2025 11:51 AM EDT) Lipase 10 8 - 78 U/L [facility] 05/30/2025 11:5 1 AM EDT 05/30/2025 11:55 AM EDT us Generic External Data Provider LAB BLOOD ORDERAB LES Final Result [facility] [address] [place] [address] [phone] * (ABNORMAL) Comprehensive Metabolic Panel (05/30/2025 11:51 AM EDT) Sodium 143 135 - 145 mmol/L [facility] Potassium 4.3 3.3 - 5.1 mmol/L [facility] Chloride 108 96 - 108 mmol/L [facility] Carbon Dioxide 29 22 - 29 mmol/L [facility] Anion Gap 10(L) 12 - 20 [facility] Urea Nitrogen (BUN) 11 9 - 16 mg/dL [facility] Creatinine, Serum 0.59 0.5 - 1.4 mg/dL [facility] Creatinine Clr Calc Pharmacy 72.8 [facility] Comment:Provided height and weight: 160.02 cm,73.028 kg.eGFR (calculated from the MDRD study equation) and eCrCl(calculated from the Cockcroft-Gault equation) are based ondifferent parameters and may not yield comparable results.If eCrCl result is absurd, please check patient'sheight/weight. Estimated Glomerular Filt Rate >60 [facility] Comment:Chronic Kidney Disea se: Estimated GFR < 60 mL/min/1.55v0Qbpqck Kidney Disease: Estimated GFR < 15 mL/min/1.73m2 Glucose 99 60 - 115 mg/dL [facility] Calcium 8.2(L) 8.4 - 10.2 mg/dL [facility] Bilirubin, Total 0.9 0.0 - 1.0 mg/dL [facility] Aspartate Amino Transferase 25 5 - 31 U/L [facility] Alanine Aminotransferase 24 0 - 31 U/L [facility] Total Protein 5.4(L) 6.5 - 8.0 g/dL [facility] Albumin Level 3.8 3.5 - 5.0 g/dL [facility] Alkaline Phosphatase 45 39 - 117 U/L [facility] 05/30/2025 11:5 1 AM EDT 05/30/2025 11:55 AM EDT Generic External Data Provider LAB BLOOD ORDERAB LES Final Result Performing Organization Address [facility] de Phone Number [facility] [address] [place] [phone] * Partial Thromboplastin Time, Activated (APTT) (05/30/2025 11:51 AM EDT) Partial Thromboplastin Time 29.3 26.7 - 34.1 SEC [facility] 05/30/2025 11:5 1 AM EDT 05/30/2025 11:55 AM EDT Generic External Data Provider LAB BLOOD ORDERAB LES Final Result Performing Organization Address [facility] Phone Number [facility] [address] [place] [phone] * (ABNORMAL) Prothrombin Time-INR (05/30/2025 11:51 AM EDT) Prothrombin Time 14.2(H) 10.9 - 12.4 SEC [facility] INTERNATIONAL NORM RATIO 1.2(H) 0.9 - 1.1 [facility] Comment:INTERNATIONAL NORMAL IZED RATIO (INR) [...] ORDERAB LES Final Result Performing Organization Address [facility]/State/ZIP Co de Phone Number [facility] [address] [place] [address] [phone] * (ABNORMAL) Complete Blood Count Manual Diff (05/30/2025 11:51 AM EDT) White Blood Count 8.0 4.8 - 10.8 X10*3/uL [facility] Red Blood Count 2.80(L) 4.20 - 5.50 X10*6/uL [facility] Hemoglobin 8.5(L) 12.0 - 16.0 g/dl [facility] Hematocrit 26.5(L) 37.0 - 47.0 % [facility] Mean Corpuscular Volume 94.6 80.0 - 98.0 fL [facility] Mean Corpuscular Hemoglobin 30.4 27.0 - 33.0 pg [facility] Mean Corpuscular HGB Conc 32.1 31.0 - 35.0 g/dl [facility] Red Cell Distribution Width 14.4 11.0 - 16.0 % [facility] Platelet Count 77(L) 160 - 400 X10*3/uL [facility] NRBC Pct Auto 0.0 0.0 - 0.2 /100WBC [facility] NRBC Abs Auto 0.000 0.0 - 0.012 X10*3/uL [facility] Neutrophils % Manual 82(H) 45 - 73 % [facility] Band Neutrophils Percent 4 3 - 5 % [facility] Lymphocytes Percent Manual 8(L) 20 - 40 % [facility] Monocytes Percent Manual 4 2 - 11 % [facility] EOSINOPHILS % MANUAL 1 0 - 4 % [facility] BASOPHILS % MANUAL 1 0 - 2 % [facility] NEUTROPHILS ABSOLUTE MANUAL 6.9 2.0 - 8.3 X10*3/uL [facility] LYMPHOCYTES ABSOLUTE MANUAL 0.6(L) 1.2 - 4.9 X10*3/uL [facility] MONOCYTES ABSOLUTE MANUAL 0.3 0.1 - 1.2 X10*3/uL [facility] EOSINOPHILS ABSOLUTE MANUAL 0.1 0.0 - 0.4 X10*3/uL [facility] BASOPHILS ABSOLUTE MANUAL 0.1 0.0 - 0.2 X10*3/uL [facility] Platelet Estimate DECREASED NORMAL [facility] Large Platelet [facility] Platelet Morphology Comment NOTED [facility] RBC Morphology NOTED [facility] Hypochromasia 1+ (5-14) /F [facility] Basophilic Stippling 1+ (0-2) /[facility] Ovalocytes 1+ (5-14) /[facility] 05/30/2025 11:5 1 AM EDT 05/30/2025 11:55 AM EDT us Generic External Data Provider LAB BLOOD ORDERAB LES Final Result Performing Organization Address [facility]/ZIP Co de Phone Number [facility] [address] [place] [address] [phone] * OBSX1 (05/30/2025 11:51 AM EDT) OBS1 POSITIVE NEGATIVE [facility] 05/30/2025 11:5 1 AM EDT 05/30/2025 11:55 AM EDT Generic External Data Provider LAB BLOOD ORDERAB LES Final Result Performing Organization Address [facility] de Phone Number [facility] [address] [place] [phone] [phone] documented in this encounter Visit Diagnoses Not on filedocumented in this encounter Additional Health Concerns Assessment Noted Time PHQ-9 Depression Total Score: 2 04/04/20 25 11:39 AM EDT documented as of this encounter Care Teams Door Repairer Bus Relationship Specialty Start Date End Date Name, MD Joseph [address] [place] [phone] PCP - General Family Medicine 01/21/22 documented as of this encounter
--- OUTSIDE RECORDS SUMMARY | 2025-05-30 12:58 | XMS_ITS | Encounter Summary ---
Author Organization [employer] Address [address] [facility] 7t [place] [address] Care Team Providers Care Screw Machine Hand Name Role Phone Name, Joseph KIM Primary Care Provider [phone] Encounter Details Date Type Department Care Team (Late st Contact Info) Description 04/28/2025 Results Follow-Up [facility] MEDICINE [address] [place], [place] [phone] Name, MD Joseph [address] [place] [address] CTA Chest PE Protocal Social History Tobacco [...] Info) Description 06/04/2025 11:30 AM EDT Telemedicine [facility] [address] [place] [address] Kaitlynn Landrum RN documented as of this encounter Visit Diagnoses Not on filedocumented in this encounter Additional Health Concerns Assessment Noted Time PHQ-9 Depression Total Score: 2 04/04/20 25 11:39 AM EDT documented as of this encounter Care Teams Screw Machine Hand Relationship Specialty Start Date End Date Name, MD Joseph [address] [place] [address] PCP - General Family Medicine 01/21/22 documented as of this encounter
--- OUTSIDE RECORDS SUMMARY | 2025-05-30 12:58 | XMS_ITS | Encounter Summary ---
Author Organization [employer] Address [address] [facility] 7t [place] [address] Care Team Providers Care Internet Marketing Specialist Name Role Phone Name, Joseph KIM Primary Care Provider [phone] Encounter Details Date Type Department Care Team (Late st Contact Info) Description 09/06/2024 Orders Only [facility] [address] [place], [place] [phone] Name, MD Joseph [address] [place], [place] [phone] Iron deficiency anemia, unspecified iron deficiency anemia [...] Info) Description 06/04/2025 11:30 AM EDT Telemedicine [facility] [address] [place] [address] Kaitlynn Landrum RN documented as of this encounter Visit Diagnoses Diagnosis Iron deficiency anemia, unspecified iron deficiency anemia type documented in this encounter Additional Health Concerns Assessment Noted Time PHQ-9 Depression Total Score: 0 01/30/20 24 11:07 AM EDT documented as of this encounter Care Teams Internet Marketing Specialist Relationship Specialty Start Date End Date Name, MD Joseph [address] [place] [address] PCP - General Family Medicine 01/21/22 documented as of this encounter
--- OUTSIDE RECORDS SUMMARY | 2025-05-30 12:58 | XMS_ITS | Encounter Summary ---
Author Organization [employer] Address [address] [facility] 7t [place] [address] Care Team Providers Care Club Former Name Role Phone Name, Joseph KIM Primary Care Provider [phone] Reason for Visit * Reason Onset Date Comments Med Refill 07/28/2023 Encounter Details Date Type Department Care Team ([facility] st Contact Info) Description 07/28/2023 Telephone [facility] MEDICINE [address] [place], [place] [phone] Name, MD Joseph [address] [place], [place] [phone] Med Refill Social History Tobacco Use Types [...] t he electric, gas, oil or water [employer] threatened to shut off services in your [...] from patient requesting medication refill for HYDROcodone-acetaminophen ([place]) 7.5-325 MG tablet. documented in this encounter Plan of Treatment Upcoming Encounters Date Type Department Care Team (Late st Contact Info) Description 06/04/2025 11:30 AM EDT Telemedicine [facility] [address] [place] [address] Kaitlynn Landrum, [employer] documented as of this encounter Visit Diagnoses Not on filedocumented in this encounter Additional Health Concerns Assessment Noted Time PHQ-9 Depression Total Score: 4 09/22/19 23 11:14 AM EST documented as of this encounter Care Teams Club Former Relationship Specialty Start Date End Date Name, MD Joseph [address] [place] [address] PCP - General Family Medicine 01/21/22 documented as of this encounter
--- OUTSIDE RECORDS SUMMARY | 2025-05-30 12:58 | XMS_ITS | Encounter Summary ---
Author Organization [employer] Address [address] [facility] 7t [place] [address] Care Team Providers Care Supervisor Reclamation Name Role Phone Name, Joseph KIM Primary Care Provider [phone] Reason for Visit * Reason Onset Date Comments call back request 05/28/2025 Encounter Details Date Type Department Care Team ([facility] Contact Info) Description 05/28/2025 Telephone [facility]INE [address] [place], [place] [phone] Name, MD Joseph [address] [place], [place] [phone] call back request Social History Tobacco Use Types Packs/Day Years [...] Telephone Encounter - Ara Cantor RN - 05/30/2025 10:53 AM EDT Pt discharged from [facility] 05/29/25 Dx: Dehydration, mild; Hypomagnesemia, Hypokalemia. T/C to pt for status check and to schedule HDF. No answer, v/m left to return call to Blue team nurses. * Telephone Encounter - Joanna Benson - 05/30/2025 8:06 AM EDT Tc from pt requesting a call back in regard of prior message. Contact pt at [phone] * Telephone Encounter - Ara Cantor RN - 05/28/2025 3:48 PM EDT 2nd call placed to pt who states she is currently in the ED at [facility]. States that the medications she was rx at [facility] were not effective and she could not eat. Reports that she was vomiting. States that she hasn't had a transfusion in a couple of months and was also concerned about that. States her friend called 911 and they brought her there. Agrees to call to schedule f/u upon discharge. * Telephone Encounter - Ara Cantor RN - 05/28/2025 2:37 PM EDT T/C to pt for triage. No answer, unable to leave v/m as mailbox is full. RN will attempt call againlater today. 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 and she was recently hospitalized with pneumonia at [facility] documented in this encounter Plan of Treatment Upcoming Encounters Date Type Department Care Team (Late st Contact Info) Description 06/04/2025 11:30 AM EDT Telemedicine [facility] [address] [place] [address] Kaitlynn Landrum, RN documented as of this encounter Visit Diagnoses Not on filedocumented in this encounter Additional Health Concerns Assessment Noted Time PHQ-9 Depression Total Score: 2 04/04/20 25 11:39 AM EDT documented as of this encounter Care Teams Supervisor Reclamation Relationship Specialty Start Date End Date Joseph Magana MD [address] [place] [address] PCP - General Family Medicine 01/21/22 documented as of this encounter
--- OUTSIDE RECORDS SUMMARY | 2025-05-30 12:58 | XMS_ITS | Encounter Summary ---
Author Organization [email or web address] Address [address] [facility] 7t [place] [address] Care Team Providers Care Testing Director Name Role Phone Name, Joseph KIM Primary Care Provider [phone] Reason for Visit * Reason Onset Date Comments Nurse Triage 09/17/2024 Encounter Details Date Type Department Care Team ([facility] st Contact Info) Description 09/17/2024 Telephone [facility] MEDICINE [address] [place], [place] [phone] Name, MD Joseph [address] [place] [address] Nurse Triage Social History Tobacco Use Types [...] No answer LVM to return call to [facility] triage line [phone]. * Telephone Encounter - Salvador Diamond - 09/17/2024 12:36 PM EST Symptom: High Blood Pressure - Caller Reports Outcome: Transfer to a nurse or provider NOW! Reason: Trouble breathing The caller accepted this outcome. documented in this encounter Plan of Treatment Upcoming Encounters Date Type Department Care Team (Late st Contact Info) Description 06/04/2025 11:30 AM EDT Telemedicine [facility] MEDICINE [address] [place] [address] Kaitlynn Landrum, RN documented as of this encounter Visit Diagnoses Not on filedocumented in this encounter Additional Health Concerns Assessment Noted Time PHQ-9 Depression Total Score: 0 01/30/20 24 11:07 AM EDT documented as of this encounter Care Teams Testing Director Relationship Specialty Start Date End Date Name, MD Joseph [address] [place] [address] PCP - General Family Medicine 01/21/22 documented as of this encounter
--- OUTSIDE RECORDS SUMMARY | 2025-05-30 12:58 | XMS_ITS | Encounter Summary ---
Author Organization [employer] [facility] Address [address] [place] [address] 7t [place] [address] Care Team Providers Care Certified Pharmacy Tech Name Role Phone Name, Joseph KIM Primary Care Provider [phone] Encounter Details Date Type Department Care Team (Late st Contact Info) Description 11/11/2022 Abstract [facility] MEDICINE [address] [place] [address] [phone] Name, MD Joseph [address] [place] [address] [phone] Social History Tobacco Use Types Packs/Day Years [...] Info) Description 06/04/2025 11:30 AM EDT Telemedicine [facility] MEDICINE [address] [place] [phone] Kaitlynn Landrum RN documented as of this encounter Visit Diagnoses Not on filedocumented in this encounter Additional Health Concerns Assessment Noted Time PHQ-9 Depression Total Score: 4 09/22/19 23 11:14 AM EST documented as of this encounter Care Teams Certified Pharmacy Tech Relationship Specialty Start Date End Date Name, MD Joseph [address] [place] [address] PCP - General Family Medicine 01/21/22 documented as of this encounter
--- OUTSIDE RECORDS SUMMARY | 2025-05-30 12:58 | XMS_ITS | Encounter Summary ---
Author Organization [employer] Address [address] [facility] 7t [place] [address] Care Team Providers Care Car Chaser Name Role Phone Name, Joseph KIM Primary Care Provider [phone] Encounter Details Date Type Department Care Team (Late st Contact Info) Description 06/28/2024 Orders Only [facility] MEDICINE [address] [place], [place] [phone] Name, MD Joseph [address] [place], [place] [phone] Iron deficiency anemia, unspecified iron deficiency anemia [...] Info) Description 06/04/2025 11:30 AM EDT Telemedicine [facility] MEDICINE [address] [place] [address] Kaitlynn Landrum RN documented as of this encounter Procedures Procedure Name Priority Date/Time Associated Diagnosis Comments CBC WITH AUTO DIFFERENTIAL Routine 07/03/2024 2:09 PM EDT Iron deficiency anemia, unspecified iron deficiency anemia type documented in this encounter Results * (ABNORMAL) CBC auto differential (07/03/2024 2:09 PM EDT) White Blood Count 7.3 4.8 - 10.8 X10*3/uL [facility] Red Blood Count 2.26(L) 4.20 - 5.50 X10*6/uL [facility] Hemoglobin 6.0(LL) 12.0 - 16.0 g/dl [facility] Comment:Results of HCG perez d to and read back by DR Cordova 07/03/24 at 1840 by ASHA. Hematocrit 20.4(LL) 37.0 - 47.0 % [facility] Comment:Results of HCT perez d to and read back by DR Cordova 07/03/24 at 1840 by ASHA. Mean Corpuscular Volume 90.3 80.0 - 98.0 fL [facility] Mean Corpuscular Hemoglobin 26.5(L) 27.0 - 33.0 pg [facility] Mean Corpuscular HGB Conc 29.4(L) 31.0 - 35.0 g/dl [facility] Red Cell Distribution Width 17.9(H) 11.0 - 16.0 % [facility] Platelet Count 60(L) 160 - 400 X10*3/uL [facility] Mean Platelet Volume TNP 9.4 - 12.3 fL [facility] Neutrophils Percent Auto 82.0(H) 45 - 73 % [facility] Imm Gran Pct Auto 0.5(H) 0.0 - 0.4 % [facility] Lymphocytes Percent Auto 9.3(L) 20 - 40 % [facility] Monocytes Percent Auto 7.0 2 - 11 % [facility] Eosinophils Percent Auto 0.8 0 - 4 % [facility] Basophils Percent Auto 0.4 0 - 2 % [facility] NRBC Pct Auto 0.0 0.0 - 0.2 /100WBC [facility] Neutrophils Absolute Auto 6.0 2.0 - 8.3 x10*3/uL [facility] Imm Gran Abs Auto 0.04(H) 0.00 - 0.03 X10*3/uL [facility] Lymphocytes Absolute Auto 0.7(L) 1.2 - 4.9 X10*3/uL [facility] Monocytes Absolute Auto 0.5 0.1 - 1.2 X10*3/uL [facility] Eosinophils Absolute Auto 0.1 0.0 - 0.4 X10*3/uL [facility] Basophils Absolute Auto 0.0 0.0 - 0.2 X10*3/uL [facility] NRBC Abs Auto 0.000 0.0 - 0.012 X10*3/uL [facility] Blood Venous blood specimen / Unknown 07/03/2024 2:09 PM EDT 07/03/2024 4:15 PM EDT Joseph Magana MD LAB BLOOD ORDERABLES Edited Resu lt - Final [facility] [address] [place] [address] [phone] documented in this encounter Visit Diagnoses Diagnosis Iron deficiency anemia, unspecified iron deficiency anemia type documented in this encounter Additional Health Concerns Assessment Noted Time PHQ-9 Depression Total Score: 0 01/30/20 24 11:07 AM EDT documented as of this encounter Care Teams Car Chaser Relationship Specialty Start Date End Date Name, MD Joseph [address] [place] [address] PCP - General Family Medicine 01/21/22 documented as of this encounter
--- OUTSIDE RECORDS SUMMARY | 2025-05-30 12:58 | XMS_ITS | Encounter Summary ---
Author Organization [employer] Address [address] [facility] 7t [place] [address] Care Team Providers Care Travel Coordinator Name Role Phone Name, Joseph KIM Primary Care Provider [phone] Reason for Visit * Reason Onset Date Comments Reschedule CONSULTING SERVICES ASSOCIATE Tele appt 05/28/2025 Encounter Details Date Type Department Care Team ([facility] st Contact Info) Description 05/28/2025 Telephone [facility] MEDICINE [address] [place], [place] [phone] Kaitlynn Landrum RN Reschedule CONSULTING SERVICES ASSOCIATE Tele appt Social History Tobacco Use Types Packs/Day Years [...] Telephone Encounter - Kaitlynn Landrum RN - 05/28/2025 10:45 AM EDT Received call from patient. She stated she was at [facility] for pneumonia and that's why missed her appt. CONSULTING SERVICES ASSOCIATE Tele Renewal rescheduled for 06/04/25 @ 11:30am. documented in this encounter Plan of Treatment Upcoming Encounters Date Type Department Care Team (Late st Contact Info) Description 06/04/2025 11:30 AM EDT Telemedicine [facility] MEDICINE [address] [place] [address] Kaitlynn Landrum, RN documented as of this encounter Visit Diagnoses Not on filedocumented in this encounter Additional Health Concerns Assessment Noted Time PHQ-9 Depression Total Score: 2 04/04/20 25 11:39 AM EDT documented as of this encounter Care Teams Travel Coordinator Relationship Specialty Start Date End Date Name, MD Joseph [address] [place] [address] PCP - General Family Medicine 01/21/22 documented as of this encounter
--- OUTSIDE RECORDS SUMMARY | 2025-05-30 12:58 | XMS_ITS | Encounter Summary ---
Author Organization [employer] Address [address] [facility] [address] [place] [address] Care Team Providers Care Manager Equity Name Role Phone Name, Joseph KIM Primary Care Provider [phone] Encounter Details Date Type Department Care Team (Late st Contact Info) Description 07/19/2024 Orders Only [facility] MEDICINE [address] [place], [place] [phone] Name, MD Joseph [address] [place], [place] [phone] Iron deficiency anemia, unspecified iron deficiency anemia [...] 06/04/2025 11:30 AM EDT Telemedicine [facility] MEDICINE [address] [place] [id number] Kaitlynn Landrum RN documented as of this encounter Procedures Procedure Name Priority Date/Time Associated Diagnosis Comments CBC WITH AUTO DIFFERENTIAL Routine 07/23/2024 2:15 PM EST Iron deficiency anemia, unspecified iron deficiency anemia type documented in this encounter Results * (ABNORMAL) CBC auto differential (07/23/2024 2:15 PM EST) White Blood Count 9.9 4.8 - 10.8 X10*3/uL [facility] Red Blood Count 3.50(L) 4.20 - 5.50 X10*6/uL [facility] Hemoglobin 9.8(L) 12.0 - 16.0 g/dl [facility] Hematocrit 32.9(L) 37.0 - 47.0 % [facility] Mean Corpuscular Volume 94.0 80.0 - 98.0 fL [facility] Mean Corpuscular Hemoglobin 28.0 27.0 - 33.0 pg [facility] Mean Corpuscular HGB Conc 29.8(L) 31.0 - 35.0 g/dl [facility] Red Cell Distribution Width 19.3(H) 11.0 - 16.0 % [facility] Platelet Count 88(L) 160 - 400 X10*3/uL [facility] Comment:Confirmed by smear. Mean Platelet Volume TNP 9.4 - 12.3 fL [facility] Neutrophils Percent Auto 76.1(H) 45 - 73 % [facility] Imm Gran Pct Auto 0.3 0.0 - 0.4 % [facility] Lymphocytes Percent Auto 12.0(L) 20 - 40 % [facility] Monocytes Percent Auto 9.2 2 - 11 % [facility] Eosinophils Percent Auto 1.8 0 - 4 % [facility] Basophils Percent Auto 0.6 0 - 2 % [facility] NRBC Pct Auto 0.0 0.0 - 0.2 /100WBC [facility] Neutrophils Absolute Auto 7.6 2.0 - 8.3 x10*3/uL [facility] Imm Gran Abs Auto 0.03 0.00 - 0.03 X10*3/uL [facility] Lymphocytes Absolute Auto 1.2 1.2 - 4.9 X10*3/uL [facility] Monocytes Absolute Auto 0.9 0.1 - 1.2 X10*3/uL [facility] Eosinophils Absolute Auto 0.2 0.0 - 0.4 X10*3/uL [facility] Basophils Absolute Auto 0.1 0.0 - 0.2 X10*3/uL [facility] NRBC Abs Auto 0.000 0.0 - 0.012 X10*3/uL [facility] Blood Venous blood specimen / Unknown 07/23/2024 2:15 PM EST 07/23/2024 4:10 PM EST us Joseph Magana MD LAB BLOOD ORDERABLES Edited Resu lt - Final [facility] [address] [place], [place] [phone] documented in this encounter Visit Diagnoses Diagnosis Iron deficiency anemia, unspecified iron deficiency anemia type documented in this encounter Additional Health Concerns Assessment Noted Time PHQ-9 Depression Total Score: 0 01/30/20 24 11:07 AM EDT documented as of this encounter Care Teams Manager Equity Relationship Specialty Start Date End Date Name, MD Joseph [address] [place] [address] PCP - General Family Medicine 01/21/22 documented as of this encounter
--- OUTSIDE RECORDS SUMMARY | 2025-05-30 12:58 | XMS_ITS | Encounter Summary ---
Author Organization [employer] Address [address] [facility] 7[address] [place] [address] Care Team Providers Care Stockfeed Miller Name Role Phone Name, Joseph KIM Primary Care Provider [phone] Encounter Details Date Type Department Care Team (Late st Contact Info) Description 08/16/2024 Orders Only [facility] MEDICINE [address] [place], [place] [phone] Name, MD Joseph [address] [place], [place] [phone] Iron deficiency anemia, unspecified iron deficiency anemia [...] Info) Description 06/04/2025 11:30 AM EDT Telemedicine [facility] MEDICINE [address] [place] [address] Kaitlynn Landrum RN documented as of this encounter Visit Diagnoses Diagnosis Iron deficiency anemia, unspecified iron deficiency anemia type documented in this encounter Additional Health Concerns Assessment Noted Time PHQ-9 Depression Total Score: 0 01/30/20 24 11:07 AM EDT documented as of this encounter Care Teams Stockfeed Miller Relationship Specialty Start Date End Date Name, MD Joseph [address] [place] [address] PCP - General Family Medicine 01/21/22 documented as of this encounter
--- OUTSIDE RECORDS SUMMARY | 2025-05-30 12:58 | XMS_ITS | Encounter Summary ---
Author Organization [employer] Address [address] [facility] 7[address] [place] [address] Care Team Providers Care Ecologist Technician Name Role Phone Name, Joseph KIM Primary Care Provider [phone] Encounter Details Date Type Department Care Team (Late st Contact Info) Description 08/23/2024 Orders Only [facility] MEDICINE [address] [place], [place] [phone] Name, MD Joseph [address] [place], [place] [phone] Iron deficiency anemia, unspecified iron deficiency anemia [...] Info) Description 06/04/2025 11:30 AM EDT Telemedicine [facility] MEDICINE [address] [place] [address] Kaitlynn Landrum RN documented as of this encounter Procedures Procedure Name Priority Date/Time Associated Diagnosis Comments CBC WITH AUTO DIFFERENTIAL Routine 01/10/2025 3:22 PM EDT Iron deficiency anemia, unspecified iron deficiency anemia type documented in this encounter Results * (ABNORMAL) CBC auto differential (01/10/2025 3:22 PM EDT) White Blood Count 10.6 4.8 - 10.8 X10*3/uL [facility] Red Blood Count 2.98(L) 4.20 - 5.50 X10*6/uL [facility] Hemoglobin 9.1(L) 12.0 - 16.0 g/dl [facility] Hematocrit 29.5(L) 37.0 - 47.0 % [facility] Mean Corpuscular Volume 99.0(H) 80.0 - 98.0 fL [facility] Mean Corpuscular Hemoglobin 30.5 27.0 - 33.0 pg [facility] Mean Corpuscular HGB Conc 30.8(L) 31.0 - 35.0 g/dl [facility] Red Cell Distribution Width 17.2(H) 11.0 - 16.0 % [facility] Platelet Count 125(L) 160 - 400 X10*3/uL [facility] Neutrophils Percent Auto 73.3(H) 45 - 73 % [facility] Imm Gran Pct Auto 0.3 0.0 - 0.4 % [facility] Lymphocytes Percent Auto 13.9(L) 20 - 40 % [facility] Monocytes Percent Auto 8.8 2 - 11 % [facility] Eosinophils Percent Auto 3.0 0 - 4 % [facility] Basophils Percent Auto 0.7 0 - 2 % [facility] NRBC Pct Auto 0.0 0.0 - 0.2 /100WBC [facility] Neutrophils Absolute Auto 7.7 2.0 - 8.3 x10*3/uL [facility] Imm Gran Abs Auto 0.03 0.00 - 0.03 X10*3/uL [facility] Lymphocytes Absolute Auto 1.5 1.2 - 4.9 X10*3/uL [facility] Monocytes Absolute Auto 0.9 0.1 - 1.2 X10*3/uL [facility] Eosinophils Absolute Auto 0.3 0.0 - 0.4 X10*3/uL [facility] Basophils Absolute Auto 0.1 0.0 - 0.2 X10*3/uL [facility] NRBC Abs Auto 0.000 0.0 - 0.012 X10*3/uL [facility] Blood Venous blood specimen / Unknown 01/10/2025 3:22 PM EDT 01/10/2025 4:01 PM EDT Joseph Magana MD LAB BLOOD ORDERABLES Edited Resu lt - Final [facility] [address] [place] [phone] documented in this encounter Visit Diagnoses Diagnosis Iron deficiency anemia, unspecified iron deficiency anemia type documented in this encounter Additional Health Concerns Assessment Noted Time PHQ-9 Depression Total Score: 0 01/30/20 24 11:07 AM EDT documented as of this encounter Care Teams Ecologist Technician Relationship Specialty Start Date End Date Name, MD Joseph [address] [place] [id number] PCP - General Family Medicine 01/21/22 documented as of this encounter
--- OUTSIDE RECORDS SUMMARY | 2025-05-30 12:58 | XMS_ITS | Encounter Summary ---
Author Organization [employer] Address [address] [facility] 7[address] [place] [address] Care Team Providers Care Field Sales Specialist Name Role Phone Name, Joseph KIM Primary Care Provider [phone] Encounter Details Date Type Department Care Team (Late st Contact Info) Description 08/30/2024 Orders Only [facility] MEDICINE [address] [place], [place] [phone] Name, MD Joseph [address] [place], [place] [phone] Iron deficiency anemia, unspecified iron deficiency anemia [...] Info) Description 06/04/2025 11:30 AM EDT Telemedicine [facility] MEDICINE [address] [place] [address] Kaitlynn Landrum RN documented as of this encounter Visit Diagnoses Diagnosis Iron deficiency anemia, unspecified iron deficiency anemia type documented in this encounter Additional Health Concerns Assessment Noted Time PHQ-9 Depression Total Score: 0 01/30/20 24 11:07 AM EDT documented as of this encounter Care Teams Field Sales Specialist Relationship Specialty Start Date End Date Name, MD Joseph [address] [place] [address] PCP - General Family Medicine 01/21/22 documented as of this encounter
[2025-05-30] MEDS: Albuterol/Iprat 2.5/0.5MG 3 ML AMPUL.NEB INHALE (13:40)
[2025-05-30] MEDS: iohexoL 350 MG/ML 100 ML INFUS..BTL IV (14:57)
[2025-05-30 16:02] LABS: Troponin-I High Sensitivity 12.9 ng/L (<3.5-17.0)
--- NOTE | 2025-05-30 16:14 | PM.IMHP ---
History of Present Illness Date of Service: 05/30/25 Attending physician on admission: [facility] Chief Complaint: Black Pt is an 79-year-old female with a PMH significant for?chronic ITP, ischemic cardiomyopathy, anxiety, GERD, chronic HFrEF, COPD/chronic bronchitis/asthma, and chronic anemia with negative work up in the past and requiring frequent transfusions who presents to the ED with?nausea, vomiting, and dark green stool for the past few weeks. Pt reports symptoms began approximately 3 weeks ago and she began experiencing persistent nausea with occasional vomiting, abdominal cramping, and dark-colored stool. Pt states stool is more dark green than black. Denies hx of hemorrhoids. Reports he has not vomited for the past few days. No hematochezia. Denies bright red blood per rectum. Notes she is followed closely by Hematology and has required multiple transfusions in the past few years. Stool in the ED was heme-positive and also noted to be black in color. In the ED pt's vitals were significant for hypertension as high as 167/78. Labs were significant for H&H 8.5/26.5, platelets 77, and stool positive for occult blood. CT of abdomen and pelvis negative for acute GI bleed; negative for acute abdomen. EKG demonstrated normal sinus rhythm without evidence of significant ST elevations or depressions. Pt was treated in the ED with Protonix, albuterol, and ndansetron. Pt is admitted to the hospital for treatment and further evaluation of possible GI bleed. Review of Systems Review of Systems: Negative except for that which is stated in the HPI. [facility] Medical History Chronic ITP (idiopathic thrombocytopenia) Ischemic cardiomyopathy Ascending aorta dilatation Atherosclerotic cardiovascular disease Non-rheumatic mitral regurgitation Non-rheumatic aortic regurgitation Non-rheumatic aortic stenosis Cardiomyopathy COPD exacerbation Heart failure with reduced ejection fraction Acute on chronic systolic (congestive) heart failure COPD (chronic obstructive pulmonary disease) Thrombocytopenia Osteoarthritis GERD (gastroesophageal reflux disease) Anxiety Asthma Family History Sister Lung cancer Lupus Sister Lung cancer Maternal Aunt Lupus Surgical History Hx of colonoscopy Hx of endoscopy Hx of oophorectomy Hx of hysterectomy Hx of total knee replacement Social History Household Members: Friend(s) Household Members Other:: lives alone Housing: Condominium Are you a primary healthcare market consultant to a significant other at home: No Do you presently have visiting nurse or other home services: No ([facility]) Unable to assess alcohol history related to: Unknown Alcohol intake: current Alcohol intake frequency: holidays/special occasions only Comment: patient refusing alarms Patient Tobacco Use Status: Former Tobacco user Second Hand Smoke Exposure: No Substance Use Type: Unknown Advance Directives: Yes Advance Directives Information Provided: Yes Advance Directives on File: No Advance Directives Date on File: 03/20/23 Do you have a plan to hurt others: No Plan service: Yes Current occupational status: employed Meds Allergies Allergy/AdvReac Type Severity Reaction Status Date / Time amoxicillin Allergy Unknown Hives Verified 05/30/25 10:49 Penicillins (PENICILLINS) Allergy Unknown Hives Verified 05/30/25 10:49 Sulfa (Sulfonamide Allergy Unknown Hives Verified 05/30/25 10:49 Antibiotics) (SULFA (SULFONAMIDE ANTIBIOTICS)) Home Medications ?Medication ?Instructions ?Recorded ?Confirmed ?Last Taken ?Type alprazolam 0.5 mg tablet 1 tab PO TID PRN Anxiety 12/07/20 05/30/25 10/12/22 History cholecalciferol (vitamin D3) 25 1,000 unit PO DAILY 02/07/21 05/30/25 05/29/25 History mcg (1,000 unit) capsule (Vitamin D3) albuterol sulfate 2.5 mg/3 mL 2.5 mg inhalation Q6H PRN Wheezing 01/27/22 05/30/25 10/12/22 History (0.083 %) solution for nebulization cyanocobalamin (vitamin B-12) 1,000 mcg PO DAILY 01/27/22 05/30/25 05/29/25 History 1,000 mcg tablet vitamin A 2,400 mcg capsule 2,400 mcg PO DAILY 01/27/22 05/30/25 05/29/25 History metoprolol succinate 25 mg 25 mg PO DAILY 05/17/22 05/30/25 05/29/25 History tablet,extended release 24 hr (Toprol XL) biotin 10,000 mcg chewable tablet 10,000 mcg PO DAILY 12/07/22 05/30/25 05/29/25 History (Hair, Skin and Nails (biotin)) ondansetron HCl 4 mg tablet 1 tab PO Q8H PRN Nausea And 12/07/22 05/30/25 Unknown History Vomiting albuterol sulfate 90 mcg/actuation 2 puff inhalation Q4H PRN Wheezing 06/12/24 05/30/25 Unknown History aerosol inhaler ferrous sulfate 325 mg (65 mg 325 mg PO DAILY 04/27/25 05/30/25 05/29/25 History iron) tablet oxycodone-acetaminophen 10 mg-325 1 tab PO QID PRN Pain 05/30/25 05/30/25 Unknown History mg tablet Physical Exam Vital Signs and Narrative: Vital Signs: Last Vital Signs Temp 99.8 F 05/30/25 11:54 Pulse 86 05/30/25 11:54 Resp 16 05/30/25 11:54 BP 162/78 H 05/30/25 11:54 Pulse Ox 94 05/30/25 11:54 O2 Del Method Room Air 05/30/25 11:54 BMI result Body Mass Index 28.5 General: AOx3, no acute distress Resp: CTA bilaterally CVS: S1, S2, RRR GI: Soft, no distention, diffuse upper abd tenderness Skin: Warm, dry Neuro: Cranial nerves II-XII grossly intact bilaterally. Motor grossly intact bilaterally Extremities: No edema Psych: Appropriate affect Results Labs 05/30/25 11:51 05/30/25 11:51 Labs: Laboratory Results - last 24 hr 05/30/25 11:51 MCV 94.6 MCH 30.4 MCHC 32.1 RDW 14.4 Plt Count 77 L D MPV Not Reportable Immature Gran % (Auto) Cancelled Neut % (Auto) Cancelled Lymph % (Auto) Cancelled [place] % (Auto) Cancelled Eos % (Auto) Cancelled Baso % (Auto) Cancelled Lymph # (Auto) Cancelled [place] # (Auto) Cancelled Eos # (Auto) Cancelled Baso # (Auto) Cancelled Abs Immat Gran (auto) Cancelled Absolute Neuts (auto) Cancelled Absolute Nucleated RBC 0.000 Nucleated RBC % (auto) 0.0 Neutrophils % (Manual) 82 H Band Neutrophils % 4 Lymphocytes % (Manual) 8 L Monocytes % (Manual) 4 Eosinophils % (Manual) 1 Basophils % (Manual) 1 Abs Neuts (Manual) 6.9 Lymphocytes # (Manual) 0.6 L Monocytes # (Manual) 0.3 Eosinophils # (Manual) 0.1 Basophils # (Manual) 0.1 Platelet Estimate DECREASED Large Platelets PRESENT Plt Morphology Comment NOTED RBC Morphology NOTED Hypochromasia 1+ (5-14) Basophilic Stippling 1+ (0-2) Ovalocytes 1+ (5-14) PT 14.2 H INR 1.2 H APTT 29.3 Anion Gap 10 L Estim Creat Clear Calc 72.8 Estimated GFR > 60 Random Glucose 99 Calcium 8.2 L Total Bilirubin 0.9 AST 25 ALT 24 Alkaline Phosphatase 45 Total Protein 5.4 L Albumin 3.8 Lipase 10 Stool Occult Blood POSITIVE Blood Type O Positive Antibody Screen NEGATIVE Imaging Radiologist's Impressions: Impressions Abdomen/Pelvis CT 05/30/25 14:15 IMPRESSION: 12 x 18 mm solid nodular density in the right middle lobe contacting mediastinal/pericardial fat. There is incompletely covered on this CT. Review a prior CT chest from June 27, 2021 shows that a similar abnormality has been present since at least then favoring a benign etiology such as rounded atelectasis. No evidence of acute gastrointestinal bleeding 13 mm left adrenal nodule has been stable since 2020 favoring a benign origin. Cholelithiasis. End-stage degenerative changes of the right hip joint. Severe degenerative changes in the mid and lower lumbar spine. Fleischner guidelines were followed. Electronically signed by: Theron Varma MD 05/30/2025 03:29 PM EDT Assessment and Plan (1) Heme positive stool: Status: Acute Plan Pt is an 79-year-old female with a PMH significant for?chronic ITP, ischemic cardiomyopathy, anxiety, GERD, chronic HFrEF, COPD/chronic bronchitis/asthma, and chronic anemia with negative work up in the past and requiring frequent transfusions who presents to the ED with?nausea, vomiting, and dark green stool for the past few weeks. Pt is admitted to the hospital for treatment and further evaluation of possible GI bleed. Question of GI bleed Dark stool, heme+ CT neg for active bleed Check stool studies GI consult Monitor H&H; if drops EGD Chronic ITP Follow CBC HFrEF Continue metoprolol Asthma Not in acute exacerbation Continue home inhalers Full Code Attending:?Dr. Trejo DVT Prophylaxis: Pneumoatic compression Pt will require a hospitalization of at least two nights for treatment and further evaluation of dark heme positive stool concerning for GIB. Quality Stroke Does the patient have a stroke diagnosis?: No VTE Prior VTE?: No VTE Risk Level:: Medical - moderate - high VTE Device Contraindication: N/A - Device Ordered VTE Drug Contraindication: Treatment Not Indicated
[2025-05-30 16:56] LABS: Magnesium 2.0 mg/dL (1.6-2.6)
[2025-05-30 17:07] VITALS: BP 173/71; PULSE 74; RESP 15; TEMP 36.9; O2SAT 96
--- NOTE | 2025-05-30 17:38 | PM.GICN ---
History of Present Illness Data of Consult Service Date: 05/30/25 Primary Care Provider: Joseph Magana MD HPI Reason for consult: anemia 79 yr old f with PMH of?chronic ITP, ischemic cardiomyopathy, anxiety, GERD, chronic HFrEF, COPD/chronic bronchitis/asthma, and chronic anemia who I am seeing for assessment for acute on chronic anemia. Patient came to ED with c/o loose stools and lower abdominal cramps with green, dark stools for 1 week. 2 weeks she had a fall and was also dx with pneumonia and required antibiotics. She denies stools are melenic or any rectal bleeding. She has some nausea, denies vomiting, no fever and no SOB, or sputum, cough. CT imaging with degenerative bone changes, no active bleeding noted. EGD/[place] 05/2024 with AVMs, and tubular adenomas Review of Systems Review of Systems: Constitutional : No Weight loss, No Fever, No Chills ENT/Mouth : No sore throat, No Rhinorrhea Eyes: No Swelling, No Redness Cardiovascular : No Chest Pain, No SOB, No Edema Respiratory : No Cough, No Sputum, No Wheezing Gastrointestinal : see HPI Genitourinary : NO Dysuria, No Urinary Frequency, No Hematuria, No Urgency Musculoskeletal : + joint pain, No Myalgias, No Joint Swelling Skin : No Skin Lesions, No rash Neuro : No Weakness, No Numbness, No Dizziness, No Headache Psych : No Anxiety/Panic, No Depression Heme/Lymph: + Bruising, No Lymphadenopathy Endocrine : No Polyuria, No Polydipsia All other systems reviewed and are negative. [facility] Past Medical History Medical History Chronic ITP (idiopathic thrombocytopenia) Ischemic cardiomyopathy Ascending aorta dilatation Atherosclerotic cardiovascular disease Non-rheumatic mitral regurgitation Non-rheumatic aortic regurgitation Non-rheumatic aortic stenosis Cardiomyopathy COPD exacerbation Heart failure with reduced ejection fraction Acute on chronic systolic (congestive) heart failure COPD (chronic obstructive pulmonary disease) Thrombocytopenia Osteoarthritis GERD (gastroesophageal reflux disease) Anxiety Asthma Family History Family History Sister Lung cancer Lupus Sister Lung cancer Maternal Aunt Lupus Surgical History Surgical History Hx of colonoscopy Hx of endoscopy Hx of oophorectomy Hx of hysterectomy Hx of total knee replacement Social History Social History Household Members: Other Household Members Other:: lives alone Housing: Condominium Are you a primary post acute care nurse practitioner to a significant other at home: No Do you presently have visiting nurse or other home services: Yes ([facility]) Unable to assess alcohol history related to: Unknown Alcohol intake: current Alcohol intake frequency: holidays/special occasions only Comment: patient refusing alarms Patient Tobacco Use Status: Former Tobacco user Second Hand Smoke Exposure: No Substance Use Type: Unknown Advance Directives Date on File: 03/20/23 service: No Current occupational status: employed Meds Allergies Allergy/AdvReac Type Severity Reaction Status Date / Time amoxicillin Allergy Unknown Hives Verified 05/30/25 10:49 Penicillins (PENICILLINS) Allergy Unknown Hives Verified 05/30/25 10:49 Sulfa (Sulfonamide Allergy Unknown Hives Verified 05/30/25 10:49 Antibiotics) (SULFA (SULFONAMIDE ANTIBIOTICS)) Home Medications ?Medication ?Instructions ?Recorded ?Confirmed ?Last Taken ?Type alprazolam 0.5 mg tablet 1 tab PO TID PRN Anxiety 12/07/20 05/30/25 10/12/22 History cholecalciferol (vitamin D3) 25 1,000 unit PO DAILY 02/07/21 05/30/25 05/29/25 History mcg (1,000 unit) capsule (Vitamin D3) albuterol sulfate 2.5 mg/3 mL 2.5 mg inhalation Q6H PRN Wheezing 01/27/22 05/30/25 10/12/22 History (0.083 %) solution for nebulization cyanocobalamin (vitamin B-12) 1,000 mcg PO DAILY 01/27/22 05/30/25 05/29/25 History 1,000 mcg tablet vitamin A 2,400 mcg capsule 2,400 mcg PO DAILY 01/27/22 05/30/25 05/29/25 History metoprolol succinate 25 mg 25 mg PO DAILY 05/17/22 05/30/25 05/29/25 History tablet,extended release 24 hr (Toprol XL) biotin 10,000 mcg chewable tablet 10,000 mcg PO DAILY 12/07/22 05/30/25 05/29/25 History (Hair, Skin and Nails (biotin)) ondansetron HCl 4 mg tablet 1 tab PO Q8H PRN Nausea And 12/07/22 05/30/25 Unknown History Vomiting albuterol sulfate 90 mcg/actuation 2 puff inhalation Q4H PRN Wheezing 06/12/24 05/30/25 Unknown History aerosol inhaler ferrous sulfate 325 mg (65 mg 325 mg PO DAILY 04/27/25 05/30/25 05/29/25 History iron) tablet oxycodone-acetaminophen 10 mg-325 1 tab PO QID PRN Pain 05/30/25 05/30/25 Unknown History mg tablet Physical Exam Exam: Exam: EXAM: GENERAL: The patient is well developed and nontoxic. VITAL SIGNS:see workflow HEENT: Nonicteric sclerae, PERRLA, EOMI. Oropharynx clear. Moist mucous membranes. Conjunctivae appear well perfused. No thyroid mass. CHEST: Chest wall is nontender. HEART: Regular rate and rhythm with ESM over precordium 3/6 LUNGS: Clear to auscultation bilaterally. ABDOMEN: Soft, positive bowel sounds, nontender, no organomegaly.no flank tenderness SKIN: No rash, no excessive bruising, petechiae, or purpura. NEUROLOGIC: Cranial nerves II-XII intact without motor/sensory deficit. Psych: normal affect Vital Signs: Vital Signs: Last Vital Signs Temp 98.4 F 05/30/25 17:07 Pulse 74 05/30/25 17:07 Resp 15 05/30/25 17:07 BP 173/71 H 05/30/25 17:07 Pulse Ox 96 05/30/25 17:07 O2 Del Method Nasal Cannula 05/30/25 17:07 O2 Flow Rate 1 05/30/25 17:07 BMI result Body Mass Index 28.5 Results Labs 06/01/25 05:59 06/01/25 05:59 Labs: Short CBC 05/30/25 Range/Units 11:51 WBC 8.0 (4.8-10.8) X10*3/uL Hgb 8.5 L (12.0-16.0) g/dl Hct 26.5 L (37.0-47.0) % Plt Count 77 L D (160-400) X10*3/uL BMP 05/30/25 11:51 Sodium 143 Potassium 4.3 Chloride 108 Carbon Dioxide 29 BUN 11 Creatinine 0.59 Calcium 8.2 L Liver Function 05/30/25 Range/Units 11:51 Total Bilirubin 0.9 (0.0-1.0) mg/dL AST 25 (5-31) U/L ALT 24 (0-31) U/L Alkaline Phosphatase 45 (39-117) U/L Albumin 3.8 (3.5-5.0) g/dL Assessment and Plan (1) Anemia: Status: Chronic Plan 1/ Abnormal bowel, habit, not really describing melena. HGB slightly lower but has bruising on skin, may have gastroenterits PLAN': 1/ can use low dose PPI 2/ trend HGB< if < 8-9 transfuse and con consider EGD Procedures Date of Service Date of Service: 06/01/25
--- NOTE | 2025-05-30 18:08 | PHA.MEDREC ---
Addendum entered by Jamel Venegas PharmD 05/30/25 18:11: reviewed Original Note: Pharmacy Consult ? Medication Reconciliation Pharmacy has completed the medication reconciliation. Patient was able to confirm all of her medications. Patient states she is no longer taking Cephalexin 500 mg, Doxycycline mono 100 mg, and Morphine 15 mg. Patient last had her medications yesterday.
[2025-05-30 18:51] VITALS: BP 141/72; PULSE 76
[2025-05-30 20:53] VITALS: BP 165/70; PULSE 100; RESP 16; TEMP 36.1; O2SAT 92
[2025-05-30] MEDS: 0.9 % Sodium Chloride Flush 3 ML SYRINGE IVFLUSH (21:13)
--- NOTE | 2025-05-31 00:16 | PC.NURSE ---
Pt c/o of nausea had zofran 4mg IV at 2220 not due. notified said to give dose early zofran given at 0012.
[2025-05-31 03:51] VITALS: BP 163/72; PULSE 62; RESP 17; TEMP 36.3; O2SAT 93
[2025-05-31 06:24] LABS: Mean Corpuscular Hemoglobin 30.0 pg (27.0-33.0); NRBC Abs Auto 0.000 X10*3/uL (0.0-0.012); NRBC Pct Auto 0.0 /100WBC (0.0-0.2)
[2025-05-31 06:26] LABS: Hematocrit 28.4 % (37.0-47.0); Hemoglobin 9.0 g/dl (12.0-16.0); Mean Corpuscular HGB Conc 31.7 g/dl (31.0-35.0); Mean Corpuscular Volume 94.7 fL (80.0-98.0); PLT CLUMP 1; Red Blood Count 3.00 X10*6/uL (4.20-5.50)
[2025-05-31 06:41] LABS: PLT ABN DIST 1; WBC ABN SCTR FOR CBC 1
[2025-05-31 06:42] LABS: Platelet Count 88 X10*3/uL (160-400); White Blood Count 10.3 X10*3/uL (4.8-10.8)
[2025-05-31 06:53] LABS: Anion Gap 12 (12-20); Blood Urea Nitrogen 9 mg/dL (9-16); Calcium 8.3 mg/dL (8.4-10.2); Carbon Dioxide 25 mmol/L (22-29); Chloride 103 mmol/L (96-108); Creatinine Clr Calc Pharmacy 72.8; Estimated Glomerular Filt Rate > 60; Potassium 4.0 mmol/L (3.3-5.1); Sodium 136 mmol/L (135-145)
[2025-05-31 06:58] VITALS: BP 155/67; PULSE 77; RESP 16; TEMP 36.1; O2SAT 93
[2025-05-31] MEDS: Metoprolol Succinate ER 25 MG TAB.ER.24H PO (08:29)
[2025-05-31] MEDS: Ferrous Sulfate 324 MG TABLET.DR PO (08:30)
[2025-05-31] MEDS: oxyCODONE HCl Immed Release 5 MG TABLET 10 MG PO ×3 (08:34→20:47)
[2025-05-31] MEDS: 0.9 % Sodium Chloride Flush 3 ML SYRINGE IVFLUSH ×3 (08:35→19:43)
--- NOTE | 2025-05-31 09:25 | P.PNIM_ITS ---
Subjective Subjective Date of Service: 05/31/25 Interval History: No acute events overnight Stomach a little crampy No N/V/D No bowel movement Review of Systems Review of Systems: Yes all other systems are reviewed and are negative Physical Exam 2 Exam: Exam: General: AOx3, no acute distress Resp: CTA bilaterally CVS: S1, S2, RRR GI: +BS, mild diffuse tenderness, no distention Skin: Warm, dry Neuro: Cranial nerves II-XII grossly intact bilaterally. Motor grossly intact bilaterally Extremities: No edema Psych: Appropriate affect Vital Signs: Vital Signs: Last Vital Signs Temp 97 F 05/31/25 06:58 Pulse 77 05/31/25 06:58 Resp 16 05/31/25 06:58 BP 155/67 H 05/31/25 06:58 Pulse Ox 93 05/31/25 06:58 O2 Del Method Room Air 05/31/25 06:58 O2 Flow Rate 1 05/30/25 17:07 BMI result Body Mass Index 28.5 Objective Data Active Medications Acetaminophen (Acetaminophen 325 Mg Tablet) 650 mg PO Q6H PRN PRN Reason: Pain, Mild 1-3,fever,headache Albuterol Sulfate (Albuterol Sulfate (0.083%) 2.5 Mg/3 Ml Vial.Neb) 2.5 mg INHALE Q6H PRN PRN Reason: Wheezing Albuterol Sulfate (Albuterol Sulfate 90 Mcg 8 Gm Inhaler) 2 puff INHALE Q4H PRN PRN Reason: Wheezing Alprazolam (Alprazolam 0.5 Mg Tablet) 0.5 mg PO TID PRN PRN Reason: Anxiety Last Admin: 05/30/25 21:28 Dose: 0.5 mg Documented By: DAE Calcium Carbonate (Calcium Carbonate 750 Mg Tab.Chew) 750 mg PO Q4H PRN PRN Reason: Heartburn Cyanocobalamin (Cyanocobalamin (Vitamin B-12) 1,000 Mcg Tablet) 1,000 mcg PO DAILY [facility] Last Admin: 05/31/25 08:29 Dose: 1,000 mcg Documented By: NANCY Ferrous Sulfate (Ferrous Sulfate 324 Mg Tablet.Dr) 324 mg PO DAILY [facility] Last Admin: 05/31/25 08:30 Dose: 324 mg Documented By: NANCY Magnesium Hydroxide (Milk Of Magnesia 30 Ml Oral.Susp) 30 ml PO DAILY PRN PRN Reason: Constipation Melatonin (Melatonin 3 Mg Tablet) 6 mg PO BEDTIME PRN PRN Reason: Insomnia Last Admin: 05/31/25 01:11 Dose: 6 mg Documented By: DAE Metoprolol Succinate (Metoprolol Succinate Er 25 Mg Tab.Er.24h) 25 mg PO DAILY [facility]; Protocol Last Admin: 05/31/25 08:29 Dose: 25 mg Documented By: NANCY Ondansetron HCl (Ondansetron Hcl 4 Mg/2 Ml Vial) 4 mg IVPUSH Q8H PRN PRN Reason: Nausea and Vomiting Last Admin: 05/31/25 08:28 Dose: 4 mg Documented By: NANCY Oxycodone HCl (Oxycodone Hcl Immed Release 5 Mg Tablet) 10 mg PO QID PRN PRN Reason: Pain, Moderate(Pain Scale 4-6) Last Admin: 05/31/25 08:34 Dose: 10 mg Documented By: NANCY Sodium Chloride (0.9 % Sodium Chloride Flush 3 Ml Syringe) [facility] Last Admin: 05/31/25 08:35 Dose: 3 ml Documented By: NANCY Vitamin D (Cholecalciferol (Vitamin D3) 25 Mcg Tablet) 25 mcg PO DAILY [facility] Last Admin: 05/31/25 08:30 Dose: 25 mcg Documented By: NANCY Labs 05/31/25 06:06 05/31/25 06:06 Labs: Laboratory Results - last 24 hr 05/30/25 05/31/25 11:51 06:06 MCV 94.6 94.7 MCH 30.4 30.0 MCHC 32.1 31.7 RDW 14.4 14.4 Plt Count 77 L D 88 L MPV Not Reportable Not Reportable Immature Gran % (Auto) Cancelled Neut % (Auto) Cancelled Lymph % (Auto) Cancelled Door % (Auto) Cancelled Eos % (Auto) Cancelled Baso % (Auto) Cancelled Lymph # (Auto) Cancelled Door # (Auto) Cancelled Eos # (Auto) Cancelled Baso # (Auto) Cancelled Abs Immat Gran (auto) Cancelled Absolute Neuts (auto) Cancelled Absolute Nucleated RBC 0.000 0.000 Nucleated RBC % (auto) 0.0 0.0 Neutrophils % (Manual) 82 H Band Neutrophils % 4 Lymphocytes % (Manual) 8 L Monocytes % (Manual) 4 Eosinophils % (Manual) 1 Basophils % (Manual) 1 Abs Neuts (Manual) 6.9 Lymphocytes # (Manual) 0.6 L Monocytes # (Manual) 0.3 Eosinophils # (Manual) 0.1 Basophils # (Manual) 0.1 Platelet Estimate DECREASED Large Platelets PRESENT Plt Morphology Comment NOTED RBC Morphology NOTED Hypochromasia 1+ (5-14) Basophilic Stippling 1+ (0-2) Ovalocytes 1+ (5-14) PT 14.2 H INR 1.2 H APTT 29.3 Anion Gap 10 L 12 Estim Creat Clear Calc 72.8 72.8 Estimated GFR > 60 > 60 Random Glucose 99 106 Calcium 8.2 L 8.3 L Magnesium 2.0 Total Bilirubin 0.9 AST 25 ALT 24 Alkaline Phosphatase 45 Total Protein 5.4 L Albumin 3.8 Lipase 10 Stool Occult Blood POSITIVE Blood Type O Positive Antibody Screen NEGATIVE Assessment and Plan (1) Heme positive stool: Status: Acute Plan Pt is an 79-year-old female with a PMH significant for?chronic ITP, ischemic cardiomyopathy, anxiety, GERD, chronic HFrEF, COPD/chronic bronchitis/asthma, and chronic anemia with negative work up in the past and requiring frequent transfusions who presents to the ED with?nausea, vomiting, and dark green stool for the past few weeks. Pt is admitted to the hospital for treatment and further evaluation of possible GI bleed. Question of GI bleed Dark stool, heme+, though dark green rather than black CT neg for active bleed Check stool studies GI consult H&H stable; continue to monitor No indication for EGD at this moment Chronic ITP Follow CBC HFrEF Continue metoprolol Asthma Not in acute exacerbation Continue home inhalers Full Code Attending:?Dr. Trejo DVT Prophylaxis: Pneumoatic compression Pt will require a hospitalization of at least two nights for treatment and further evaluation of dark heme positive stool concerning for GIB. Quality Stroke Does the patient have a stroke diagnosis?: No VTE Prior VTE?: No VTE Risk Level:: Medical - moderate - high VTE Device Contraindication: N/A - Device Ordered VTE Drug Contraindication: Treatment Not Indicated
[2025-05-31 15:08] VITALS: BP 108/52; PULSE 85; RESP 18; TEMP 36.7; O2SAT 92
[2025-05-31 15:36] VITALS: BP 108/52; PULSE 85; O2SAT 92
[2025-05-31 19:34] VITALS: BP 120/55; PULSE 91; RESP 20; TEMP 36.3; O2SAT 94
[2025-06-01 03:17] VITALS: BP 138/62; PULSE 76; RESP 18; TEMP 36.9; O2SAT 94
[2025-06-01] MEDS: oxyCODONE HCl Immed Release 5 MG TABLET 10 MG PO ×3 (05:23→17:07)
[2025-06-01 06:19] LABS: Hemoglobin 9.3 g/dl (12.0-16.0); Mean Corpuscular Hemoglobin 30.2 pg (27.0-33.0); NRBC Abs Auto 0.000 X10*3/uL (0.0-0.012); NRBC Pct Auto 0.0 /100WBC (0.0-0.2); Red Blood Count 3.08 X10*6/uL (4.20-5.50)
[2025-06-01 06:21] LABS: Hematocrit 29.0 % (37.0-47.0); Mean Corpuscular HGB Conc 32.1 g/dl (31.0-35.0); Mean Corpuscular Volume 94.2 fL (80.0-98.0); PLT CLUMP 1
[2025-06-01 06:22] LABS: PLT ABN DIST 1; Platelet Count 94 X10*3/uL (160-400); WBC ABN SCTR FOR CBC 1; White Blood Count 8.3 X10*3/uL (4.8-10.8)
[2025-06-01 06:38] LABS: Anion Gap 14 (12-20); Blood Urea Nitrogen 18 mg/dL (9-16); Calcium 8.2 mg/dL (8.4-10.2); Carbon Dioxide 28 mmol/L (22-29); Chloride 103 mmol/L (96-108); Creatinine Clr Calc Pharmacy 62.2; Estimated Glomerular Filt Rate > 60; Potassium 3.8 mmol/L (3.3-5.1); Sodium 141 mmol/L (135-145)
[2025-06-01 07:15] VITALS: BP 126/60; PULSE 78; RESP 16; TEMP 36.9; O2SAT 93
[2025-06-01] MEDS: Metoprolol Succinate ER 25 MG TAB.ER.24H PO (08:36)
[2025-06-01] MEDS: Ferrous Sulfate 324 MG TABLET.DR PO (08:36)
[2025-06-01] MEDS: 0.9 % Sodium Chloride Flush 3 ML SYRINGE IVFLUSH ×3 (08:37→19:15)
--- NOTE | 2025-06-01 12:16 | P.PNGI_ITS ---
Subjective Subjective Date of Service: 06/01/25 Interval History: Now feels constipated, hasnt been for few days -normally goes daily no n, v, no rectal bleeding or melena HGB stable, went up a little Critical Care Time (minutes): 0 Physical Exam 2 Exam: Exam: EXAM: GENERAL: The patient is frail. VITAL SIGNS:see workflow HEENT: Nonicteric sclerae, PERRLA, EOMI. Oropharynx clear. Moist mucous membranes. Conjunctivae appear well perfused. No thyroid mass. CHEST: Chest wall is nontender. HEART: Regular rate and rhythm with ESM 3/6 LUNGS: Clear to auscultation bilaterally. ABDOMEN: Soft, positive bowel sounds, nontender, no organomegaly.no flank tenderness SKIN: No rash, + bruising, petechiae, or purpura. NEUROLOGIC: Cranial nerves II-XII intact without motor/sensory deficit. Psych: normal affect Vital Signs: Vital Signs: Last Vital Signs Temp 98.5 F 06/01/25 07:15 Pulse 78 06/01/25 07:15 Resp 16 06/01/25 07:15 BP 126/60 06/01/25 07:15 Pulse Ox 93 06/01/25 07:15 O2 Del Method Room Air 06/01/25 07:15 O2 Flow Rate 1 05/31/25 19:34 BMI result Body Mass Index 28.5 Objective Data Labs 06/01/25 05:59 06/01/25 05:59 Labs: Laboratory Results - last 24 hr 06/01/25 05:59 WBC 8.3 RBC 3.08 L Hgb 9.3 L Hct 29.0 L MCV 94.2 MCH 30.2 MCHC 32.1 RDW 14.6 Plt Count 94 L MPV Not Reportable Absolute Nucleated RBC 0.000 Nucleated RBC % (auto) 0.0 Sodium 141 Potassium 3.8 Chloride 103 Carbon Dioxide 28 Anion Gap 14 BUN 18 H Creatinine 0.69 Estim Creat Clear Calc 62.2 Estimated GFR > 60 Random Glucose 115 Calcium 8.2 L Procedures Date of Service Date of Service: 06/01/25 Progress Note: A&P Assessment and plan (1) Anemia: Status: Acute Plan 1/ HGB stable, no real evidence of active bleed, now feeling constipated PLAn: 1/ hold EGD 2/ can try miralax and colace, phosphate enema if needed, Time Spent With Patient Time: Total time managing care of this patient today ____ minutes. Quality Stroke Does the patient have a stroke diagnosis?: No VTE Prior VTE?: No VTE Risk Level:: Medical - moderate - high VTE Device Contraindication: N/A - Device Ordered VTE Drug Contraindication: Treatment Not Indicated
[2025-06-01 15:38] VITALS: BP 113/55; PULSE 73; RESP 18; TEMP 36.7; O2SAT 93
--- NOTE | 2025-06-01 16:00 | P.PNIM_ITS ---
Subjective Subjective Date of Service: 06/01/25 Interval History: No acute events overnight Feels off with crampy stomach, not much of an appetite No N/V Has not had bowel movement in 2-3 days Myriad other chronic complaints, including right knee pain Review of Systems Review of Systems: Yes all other systems are reviewed and are negative Physical Exam 2 Exam: Exam: General: AOx3, no acute distress Resp: CTA bilaterally CVS: S1, S2, RRR GI: +BS, no distention, diffuse mild tenderness Skin: Warm, dry Neuro: Cranial nerves II-XII grossly intact bilaterally. Motor grossly intact bilaterally Extremities: No edema Psych: Mildly anxious Vital Signs: Vital Signs: Last Vital Signs Temp 98.1 F 06/01/25 15:38 Pulse 73 06/01/25 15:38 Resp 18 06/01/25 15:38 BP 113/55 L 06/01/25 15:38 Pulse Ox 93 06/01/25 15:38 O2 Del Method Room Air 06/01/25 15:38 O2 Flow Rate 1 05/31/25 19:34 BMI result Body Mass Index 28.5 Objective Data Active Medications Acetaminophen (Acetaminophen 325 Mg Tablet) 650 mg PO Q6H PRN PRN Reason: Pain, Mild 1-3,fever,headache Last Admin: 06/01/25 15:14 Dose: 650 mg Documented By: NANCY Albuterol Sulfate (Albuterol Sulfate (0.083%) 2.5 Mg/3 Ml Vial.Neb) 2.5 mg INHALE Q6H PRN PRN Reason: Wheezing Albuterol Sulfate (Albuterol Sulfate 90 Mcg 8 Gm Inhaler) 2 puff INHALE Q4H PRN PRN Reason: Wheezing Alprazolam (Alprazolam 0.5 Mg Tablet) 0.5 mg PO TID PRN PRN Reason: Anxiety Last Admin: 06/01/25 05:26 Dose: 0.5 mg Documented By: DAE Calcium Carbonate (Calcium Carbonate 750 Mg Tab.Chew) 750 mg PO Q4H PRN PRN Reason: Heartburn Cyanocobalamin (Cyanocobalamin (Vitamin B-12) 1,000 Mcg Tablet) 1,000 mcg PO DAILY [facility] Last Admin: 06/01/25 08:36 Dose: 1,000 mcg Documented By: NANCY Ferrous Sulfate (Ferrous Sulfate 324 Mg Tablet.Dr) 324 mg PO DAILY [facility] Last Admin: 06/01/25 08:36 Dose: 324 mg Documented By: NANCY Magnesium Hydroxide (Milk Of Magnesia 30 Ml Oral.Susp) 30 ml PO DAILY PRN PRN Reason: Constipation Melatonin (Melatonin 3 Mg Tablet) 6 mg PO BEDTIME PRN PRN Reason: Insomnia Last Admin: 05/31/25 01:11 Dose: 6 mg Documented By: DAE Metoprolol Succinate (Metoprolol Succinate Er 25 Mg Tab.Er.24h) 25 mg PO DAILY [facility]; Protocol Last Admin: 06/01/25 08:36 Dose: 25 mg Documented By: NANCY Ondansetron HCl (Ondansetron Hcl 4 Mg/2 Ml Vial) 4 mg IVPUSH Q8H PRN PRN Reason: Nausea and Vomiting Last Admin: 05/31/25 19:41 Dose: 4 mg Documented By: DAE Oxycodone HCl (Oxycodone Hcl Immed Release 5 Mg Tablet) 10 mg PO QID PRN PRN Reason: Pain, Moderate(Pain Scale 4-6) Last Admin: 06/01/25 13:41 Dose: 10 mg Documented By: NANCY Senna (Sennosides 8.6 Mg Tablet) 8.6 mg PO DAILY PRN PRN Reason: Constipation Last Admin: 06/01/25 08:34 Dose: 8.6 mg Documented By: NANCY Sodium Biphosphate/Sodium Phosphate (Sodium Phosphate,Pinal-Dibasic 133 Ml Enema) 133 ml SD ONCE PRN PRN Reason: Constipation Last Admin: 06/01/25 14:05 Dose: 133 ml Documented By: NANCY Sodium Chloride (0.9 % Sodium Chloride Flush 3 Ml Syringe) 3 ml IVFLUSH QSHIFT [facility] Last Admin: 06/01/25 15:16 Dose: 3 ml Documented By: NANCY Vitamin D (Cholecalciferol (Vitamin D3) 25 Mcg Tablet) 25 mcg PO DAILY [facility] Last Admin: 06/01/25 08:34 Dose: 25 mcg Documented By: NANCY Labs 06/01/25 05:59 06/01/25 05:59 Labs: Laboratory Results - last 24 hr 06/01/25 05:59 MCV 94.2 MCH 30.2 MCHC 32.1 RDW 14.6 Plt Count 94 L MPV Not Reportable Absolute Nucleated RBC 0.000 Nucleated RBC % (auto) 0.0 Anion Gap 14 Estim Creat Clear Calc 62.2 Estimated GFR > 60 Random Glucose 115 Calcium 8.2 L Assessment and Plan (1) Heme positive stool: Status: Acute Plan Pt is an 79-year-old female with a PMH significant for?chronic ITP, ischemic cardiomyopathy, anxiety, GERD, chronic HFrEF, COPD/chronic bronchitis/asthma, and chronic anemia with negative work up in the past and requiring frequent transfusions who presents to the ED with?nausea, vomiting, and dark green stool for the past few weeks. Pt is admitted to the hospital for treatment and further evaluation of possible GI bleed. Question of GI bleed Dark stool, heme+, though dark green rather than black CT neg for active bleed Check stool studies if diarrhea H&H stable and slightly above baseline; continue to monitor GI consulted, no indication for EGD Generalized weakness Evaluated by PT, no indication for services of STR Constipation MiraLax, Colace, enema Chronic ITP At baseline HFrEF Continue metoprolol Asthma Not in acute exacerbation Continue home inhalers Full Code Attending:?Dr. Trejo DVT Prophylaxis: Pneumoatic compression Pt will require a hospitalization of at least two nights for treatment and further evaluation of dark heme positive stool concerning for GIB. Quality Stroke Does the patient have a stroke diagnosis?: No VTE Prior VTE?: No VTE Risk Level:: Medical - moderate - high VTE Device Contraindication: N/A - Device Ordered VTE Drug Contraindication: Treatment Not Indicated
[2025-06-01 20:00] VITALS: BP 113/57; PULSE 84; RESP 18; TEMP 36.2; O2SAT 96
[2025-06-02 02:52] VITALS: PULSE 74; O2SAT 95
[2025-06-02] MEDS: Albuterol Sulfate (0.083%) 2.5 MG/3 ML VIAL.NEB INHALE (02:52)
[2025-06-02] MEDS: oxyCODONE HCl Immed Release 5 MG TABLET 10 MG PO ×2 (03:12→10:39)
[2025-06-02 03:24] VITALS: BP 103/50; PULSE 98; RESP 18; TEMP 36.2; O2SAT 96
[2025-06-02 07:43] VITALS: BP 104/52; PULSE 92; RESP 18; TEMP 36.4; O2SAT 98
[2025-06-02] MEDS: Metoprolol Succinate ER 25 MG TAB.ER.24H PO (07:45)
[2025-06-02] MEDS: Ferrous Sulfate 324 MG TABLET.DR PO (07:45)
--- NOTE | 2025-06-02 12:24 | PM.DS ---
DS: Providers Provider Date of Service: 06/02/25 Date of admission: 05/30/25 16:06 Date of discharge: 06/02/25 Primary care physician: Joseph Magana MD Consults: 05/30/25 18:15 Consult to Gastroenterology Routine Consulting Provider: [facility] G[facility]ology [facility] Reason for consultation: ?GIB DS: Diagnosis Discharge Diagnosis (1) Heme positive stool: Status: Acute DS: Summary Hospital Course Hospital Course: From admission HPI: Date of Service: 05/30/25 Attending physician on admission: [facility] Chief Complaint: Black stool Pt is an 79-year-old female with a PMH significant for?chronic ITP, ischemic cardiomyopathy, anxiety, GERD, chronic HFrEF, COPD/chronic bronchitis/asthma, and chronic anemia with negative work up in the past and requiring frequent transfusions who presents to the ED with?nausea, vomiting, and dark green stool for the past few weeks. Pt reports symptoms began approximately 3 weeks ago and she began experiencing persistent nausea with occasional vomiting, abdominal cramping, and dark-colored stool. Pt states stool is more dark green than black. Denies hx of hemorrhoids. Reports he has not vomited for the past few days. No hematochezia. Denies bright red blood per rectum. Notes she is followed closely by Hematology and has required multiple transfusions in the past few years. Stool in the ED was heme-positive and also noted to be black in color. In the ED pt's vitals were significant for hypertension as high as 167/78. Labs were significant for H&H 8.5/26.5, platelets 77, and stool positive for occult blood. CT of abdomen and pelvis negative for acute GI bleed; negative for acute abdomen. EKG demonstrated normal sinus rhythm without evidence of significant ST elevations or depressions. Pt was treated in the ED with Protonix, albuterol, and ondansetron. Pt is admitted to the hospital for treatment and further evaluation of possible GI bleed. Hospital course Pt was admitted to the hospital for heme positive stool with concerns for possible GI bleed. Patient's H&H monitored and was stable throughout hospital stay. Pt was seen and evaluated by GI who held off on EGD as no evidence of acute GI bleed was noted. Pt had multiple vague and chronic medical complaints, including generalized weakness, chronic right knee pain s/p TKA many years ago, and constipation. Pt was given laxatives to good effect and had 2 bowel movements prior to discharge. Was seen and evaluated by PT who felt pt did not need any services upon discharge. Pt was initially hesitant to go home out of concern for not being able to take care of herself at home, though pt's roommate came to pick her up and she was agreeable to discharge. Roommate often helps pt out with ADLs. Pt should resume all of her home medications. Time Attestation Discharge Coordination Time (in mins): 35 Quality: Safe Use of Opioids Does Pt have an Active Cancer Diagnosis on the Problem List?: No Quality: Stroke Does the patient have a stroke diagnosis?: No Physical Exam Exam: Exam: General: AOx3, no acute distress. Elderly Resp: CTA bilaterally CVS: S1, S2, RRR, +murmur GI: +BS, NT, no distention Skin: Warm, dry Neuro: Cranial nerves II-XII grossly intact bilaterally. Motor grossly intact bilaterally Extremities: No edema Psych: Appropriate affect Vital Signs: Vital Signs: Last Vital Signs Temp 97.5 F 06/02/25 07:43 Pulse 92 06/02/25 07:43 Resp 18 06/02/25 07:43 BP 104/52 L 06/02/25 07:43 Pulse Ox 98 06/02/25 07:43 O2 Del Method Nasal Cannula 06/02/25 07:43 O2 Flow Rate 1 06/02/25 07:43 BMI result Body Mass Index 28.5 DS: Data Data Completed and Pending Completed studies during hospitalization [Text1]: Procedures Destruction of Ascending Colon, Via Natural or Artificial Opening Endoscopic (06/12/24) Destruction of Cecum, Via Natural or Artificial Opening Endoscopic (01/27/22) Destruction of Duodenum, Via Natural or Artificial Opening Endoscopic (06/12/24) Excision of Ascending Colon, Via Natural or Artificial Opening Endoscopic, Diagnostic (06/12/24) Excision of Duodenum, Via Natural or Artificial Opening Endoscopic, Diagnostic (06/12/24) Excision of Rectum, Via Natural or Artificial Opening Endoscopic, Diagnostic (06/12/24) Excision of Sigmoid Colon, Via Natural or Artificial Opening Endoscopic, Diagnostic (06/12/24) Excision of Stomach, Pylorus, Via Natural or Artificial Opening Endoscopic, Diagnostic (06/12/24) Excision of Transverse Colon, Via Natural or Artificial Opening Endoscopic, Diagnostic (06/12/24) Transfusion of Nonautologous Red Blood Cells into Peripheral Vein, Percutaneous Approach (06/12/24) Discharge Plan Discharge Anticipated Discharge Date/Time: 06/02/25 11:01 Patient Disposition: Home, Self-Care Discharge Diagnosis: Heme positive stool Referrals: Name,MD Joseph [Primary Care Provider, Internal Medicine] - 1 Week Discharge Medications: Continued alprazolam 0.5 mg tablet 1 tab PO TID PRN (Reason: Anxiety) cholecalciferol (vitamin D3) [Vitamin D3] 25 mcg (1,000 unit) Capsule 1,000 unit PO DAILY ondansetron HCl 4 mg tablet 1 tab PO Q8H PRN (Reason: Nausea And Vomiting) Hair, Skin and Nails (biotin) 10,000 mcg Tablet,Chewable 10,000 mcg PO DAILY albuterol sulfate 2.5 mg /3 mL (0.083 %) solution for nebulization 2.5 mg inhalation Q6H PRN (Reason: Wheezing) vitamin A 2,400 mcg Capsule 2,400 mcg PO DAILY cyanocobalamin (vitamin B-12) 1,000 mcg Tablet 1,000 mcg PO DAILY albuterol sulfate 90 mcg/actuation HFA aerosol inhaler 2 puff inhalation Q4H PRN (Reason: Wheezing) ferrous sulfate 325 mg (65 mg iron) Tablet 325 mg PO DAILY oxycodone-acetaminophen 10-325 mg tablet 1 tab PO QID PRN (Reason: Pain) metoprolol succinate [Toprol XL] 25 mg tablet extended release 24 hr 25 mg PO DAILY Discharge Orders: Discharge Order (Routine); Ordered 06/02/25 Ordered By: Flavia Alvarez Activity on Discharge: As tolerated Stand Alone Forms: Patient Portal Discharge page Print Language: Indian Care Plan Goals: See below Health Concerns: GI bleed Acute on chronic anemia Constipation Plan of Treatment: You were admitted to the hospital for heme positive stool with initial concern for possible GI bleed. H&H remained stable throughout hospital stay with no evidence of bleeding. You were seen and evaluated by GI who held off on any further investigation including EGD as no evidence of acute bleeding was noted. You also had multiple vague and chronic complaints, including constipation. You were given laxatives and had two bowel movements prior to discharge. You were seen and evaluated by Physical therapy who cleared you for discharge home without additional services. You should resume all of your other home medications. Follow up with PCP and GI for continued outpatient care and workup. Assessment: See discharge summary
--- NOTE | 2025-06-02 15:25 | MHC.CM.PN ---
pt is in an adult foster care program/[facility]
== END 2025-06-02 12:28 | disposition home or self-care (01) | DRG 392 ==
LOC: HO.ED 11:40 → HO.EDOVER 16:09 → HO.S3 19:25
PROVIDERS: Physician Assistant; Admitting Provider Physician Assistant Medical; Emergency Provider Emergency Medicine; PCP Internal Medicine Geriatric Medicine; Visit Provider Student in an Organized Health Care Education/Training Program
DX: R19.5 Other fecal abnormalities (principal); D69.3 Immune thrombocytopenic purpura; I50.22 Chronic systolic (congestive) heart failure; I25.5 Ischemic cardiomyopathy; R53.81 Other malaise; K59.00 Constipation, unspecified; J45.909 Unspecified asthma, uncomplicated; T84.84XS Pain due to internal orthopedic prosthetic devices, implants and grafts, sequela; Y79.2 Prosthetic and other implants, materials and accessory orthopedic devices associated with adverse incidents; Z87.891 Personal history of nicotine dependence; Z79.899 Other long term (current) drug therapy
CPT/HCPCS: 36415; 74178; 80048; 80053; 82272; 83690; 83735; 84484; 85007; 85025; 85027; 85610; 85730; 86850; 86900; 86901; 93005; 94640; 97162; 99285; J2405; J2470; J2765; Q9967

== ENCOUNTER → 2025-05-30 11:27 | Outpatient (BNV) | payer OTHER, SELFPAY | PROVIDERS: Emergency Provider Emergency Medicine; PCP Internal Medicine Geriatric Medicine; Visit Provider Internal Medicine Cardiovascular Disease | DX: I51.7 Cardiomegaly (principal); I25.2 Old myocardial infarction | CPT/HCPCS: 93010 ==

== ENCOUNTER → 2025-05-30 12:37 | Outpatient (BNV) | payer OTHER, SELFPAY | PROVIDERS: Emergency Provider Emergency Medicine; PCP Internal Medicine Geriatric Medicine; Visit Provider Radiology Diagnostic Radiology | DX: K80.20 Calculus of gallbladder without cholecystitis without obstruction (principal) | CPT/HCPCS: 74178 ==

== ENCOUNTER → 2025-05-30 16:06 | Outpatient (BNV) | payer OTHER, SELFPAY | PROVIDERS: Admitting Provider Physician Assistant Medical; Emergency Provider Emergency Medicine; PCP Internal Medicine Geriatric Medicine; Visit Provider Internal Medicine Gastroenterology | DX: D64.9 Anemia, unspecified (principal) | CPT/HCPCS: 99223; 99232 ==

== ENCOUNTER → 2025-05-30 16:06 | Outpatient (BNV) | payer OTHER, SELFPAY | PROVIDERS: Admitting Provider Physician Assistant Medical; Emergency Provider Emergency Medicine; PCP Internal Medicine Geriatric Medicine; Visit Provider Student in an Organized Health Care Education/Training Program | DX: R19.5 Other fecal abnormalities (principal) | CPT/HCPCS: 99223; 99233; 99239 ==

== ENCOUNTER 2025-06-26 19:01 | Inpatient (IN) | payer OTHER, SELFPAY ==
--- NOTE | ~2025-06-26 | XR_ITS ---
CLINICAL HISTORY: copd 1 view chest x-ray. Comparison: CR - XR CHEST 1V - 05/18/25 02:06 EDT CR - XR CHEST 1V - 04/27/25 08:23 EDT Findings: The patient is rotated. There is unchanged linear scarring in the right lung base. There is opacity in the left lung base some of which is due to overlying breast tissue, however there is also suspected airspace opacity likely atelectasis or infiltrate. Cardiomediastinal silhouette is stable. IMPRESSION: Opacity in the left lung base some of which is due to overlying breast tissue, however there is also suspected airspace opacity likely atelectasis or infiltrate. This document has been electronically signed by: Frankie Eastman MD on 06/27/2025 04:12:31
--- NOTE | ~2025-06-26 | CT_ITS ---
CLINICAL HISTORY: ams CT head without contrast Comparison: CT/SR - CT HEAD/BRAIN WO IV CON - 04/26/25 22:19 EDT Findings: Age-appropriate atrophy is again identified. The size and shape of the ventricular system is within normal limits for this degree of atrophy. Low-attenuation within the periventricular and deep white matter is unchanged. No new areas of abnormal attenuation are identified within the brain parenchyma. No midline shift or mass effect. No intracranial hemorrhage. No calvarial fractures. IMPRESSION: 1. No acute intracranial findings. This document has been electronically signed by: Isaiah Martinez MD on 06/27/2025 01:30:07
[2025-06-26 19:10] VITALS: BP 160/70; PULSE 80; O2SAT 94
[2025-06-26 19:21] VITALS: BP 144/65; PULSE 98; RESP 20; TEMP 36.5; O2SAT 91; BMI 28.7
--- NOTE | 2025-06-26 19:27 | ECG_ITS ---
Test Reason : ALTERED MENTAL STATUS Blood Pressure : */* mmHG Vent. Rate : 96 BPM Atrial Rate : 96 BPM P-R Int : 152 ms QRS Dur : 92 ms QT Int : 400 ms P-R-T Axes : 54 -45 59 degrees QTcB Int : 505 ms Normal sinus rhythm Left axis deviation Minimal voltage criteria for LVH, may be normal variant ( [place] product ) Inferior infarct (cited on or before 27-Jan-2022) T wave abnormality, consider anterior ischemia Abnormal ECG When compared with ECG of 30-May-2025 15:05, T wave inversion now evident in Anterior leads Referred By: Generic ED Physician Electronically Signed By: ZINA MCCONNELL MD
[2025-06-26 19:57] LABS: MANUAL DIFF FLAG NO
[2025-06-26 19:59] LABS: Hematocrit 33.4 % (37.0-47.0); Hemoglobin 10.1 g/dl (12.0-16.0); Imm Gran Abs Auto 0.02 X10*3/uL (0.00-0.03); Imm Gran Pct Auto 0.2 % (0.0-0.4); Lymphocytes Absolute Auto 0.7 X10*3/uL (1.2-4.9); Mean Corpuscular HGB Conc 30.2 g/dl (31.0-35.0); Mean Corpuscular Hemoglobin 29.7 pg (27.0-33.0); Mean Corpuscular Volume 98.2 fL (80.0-98.0); NRBC Abs Auto 0.000 X10*3/uL (0.0-0.012); NRBC Pct Auto 0.0 /100WBC (0.0-0.2); Red Blood Count 3.40 X10*6/uL (4.20-5.50); SCAN SMEAR FLAG 1; White Blood Count 8.4 X10*3/uL (4.8-10.8)
[2025-06-26 20:01] LABS: PLT ABN DIST 1; Platelet Count 46 X10*3/uL (160-400)
[2025-06-26 20:06] LABS: INTERNATIONAL NORM RATIO 1.2 (0.9-1.1); Prothrombin Time 13.6 SEC (10.9-12.4)
[2025-06-26 20:15] LABS: COVID-19 Test Negative (Negative); IDNOW Serial# 55D5AD1C; IDNOW Serial# 58CA691E; Influenza B2 Negative (Negative)
[2025-06-26 20:17] LABS: VBG HCO3 31 mmol/L (22-26); VBG O2 % Saturation 77.0 %
[2025-06-26 20:36] VITALS: BP 138/59; PULSE 97; RESP 16; TEMP 37.4; O2SAT 91
[2025-06-26 20:36] LABS: Venous Blood Gas Refer to POC result
[2025-06-26 20:49] LABS: Alanine Aminotransferase 13 U/L (0-31); Albumin Level 4.4 g/dL (3.5-5.0); Alkaline Phosphatase 58 U/L (39-117); Anion Gap 16 (12-20); Aspartate Amino Transferase 29 U/L (5-31); Blood Urea Nitrogen 13 mg/dL (9-16); Calcium 9.2 mg/dL (8.4-10.2); Carbon Dioxide 25 mmol/L (22-29); Chloride 107 mmol/L (96-108); Creatinine Clr Calc Pharmacy 69.4; Estimated Glomerular Filt Rate > 60; Magnesium 1.9 mg/dL (1.6-2.6); Potassium 3.9 mmol/L (3.3-5.1); Sodium 144 mmol/L (135-145); Total Protein 6.3 g/dL (6.5-8.0)
[2025-06-26 21:05] LABS: Troponin-I High Sensitivity 9.7 ng/L (<3.5-17.0)
[2025-06-26 21:42] LABS: Troponin-I High Sensitivity 10.2 ng/L (<3.5-17.0)
--- OUTSIDE RECORDS SUMMARY | 2025-06-26 21:43 | XMS_ITS | Encounter Summary ---
Author Organization [employer] Address [address] [place] [address] Care Team Providers Care Transmission Calibration Engineer Name Role Phone Name, Joseph KIM Primary Care Provider [phone] Reason for Visit * Reason Onset Date Comments Med Refill 08/28/2023 Encounter Details Date Type Department Care Team ([facility] st Contact Info) Description 08/28/2023 Telephone [facility] [address] [place], [place] [id number] Name, MD Joseph [address], [place] [phone] Med Refill Social History Tobacco Use Types [...] t he electric, gas, oil or water O2 [employer] threatened to shut off services in your [...] with 1 refill. * Telephone Encounter - Golria Colby - 08/28/2023 1:47 PM EST tc from pt requesting medication refill on albuterol 108 (90 Base) MCG/ACT inhaler to be sent to [facility] - [address] documented in this encounter Plan of Treatment Upcoming Encounters Date Type Department Care Team (Late st Contact Info) Description 08/29/2025 9:30 AM EST Telemedicine [facility] [address] [place] [id number] Kaitlynn Landrum RN 09/17/2025 11:15 AM EST Office Visit [facility] [address] [place] [phone] Name, MD Joseph [address] [place] [phone] documented as of this encounter Visit Diagnoses Not on filedocumented in this encounter Additional Health Concerns Assessment Noted Time PHQ-9 Depression Total Score: 4 09/22/19 11:14 AM EST documented as of this encounter Care Teams Transmission Calibration Engineer Relationship Specialty Start Date End Date Name, MD Joseph [address] [place] [id number] PCP - General Family Medicine 01/21/22 documented as of this encounter
--- OUTSIDE RECORDS SUMMARY | 2025-06-26 21:43 | XMS_ITS | Encounter Summary ---
Author Organization [employer] [facility] Address [address] [place] [address] 7t [place] [address] Care Team Providers Care Hash Slinger Name Role Phone Name, Joseph KIM Primary Care Provider [phone] Encounter Details Date Type Department Care Team (Late st Contact Info) Description 09/01/2022 Orders Only [address] [address] Cheryl García, RN Social History Tobacco Use [...] Info) Description 08/29/2025 9:30 AM EST Telemedicine [address] [address] Kaitlynn Landrum, SUNSHINE 09/17/2025 11:15 AM EST Office Visit [address] [address] Name, MD Joseph [address] [place] [phone] Pending Results Name Type Priority Associated Diagnoses [...] Sensitivity Troponin I (03/20/2023 2:31 PM EDT) TROPONIN I HIGH SENSITIVITY 5.0 <3.5 - 17.0 ng/L [facility] Comment:The Bishop high sens itivity Troponin-I results should beused in conjunction with other diagnostic information suchas ECG, clinical observations and information, and patientsymptoms to aid in the diagnosis of MO. 03/20/2023 2:31 PM EDT 03/20/2023 2:35 PM EDT [facility] External Provider LAB BLO OD ORDERABLES Final Result [facility] [address] [place] [phone] * (ABNORMAL) Drug Monitoring, Panel 1, Screen, Urine (03/20/2023 11:21 AM EDT) Opiate Screen Urine Not Detected Not Detect [facility] Comment:Opiate cut-off is 30 0 ng/mL.Positive results are unconfirmed and should not be used fornon-medical purposes. Barbiturates, Urine Not Detected Not Detect [facility] Comment:Barbiturate cut-off is 200 ng/mL.Positive results are unconfirmed and should not be used fornon-medical purposes. Phencyclidine Screen Urine Not Detected Not Detect [facility] Comment:Phencyclidine cut-of f is 25 ng/mL.Positive results are unconfirmed and should not be used fornon-medical purposes. Amphetamine Screen Urine Not Detected Not Detect [facility] Comment:Amphetamine cut-off is 1000 ng/mL.Positive results are unconfirmed and should not be used fornon-medical purposes. Benzodiazepines Screen Urine Not Detected Not Detect [facility] Comment:Benzodiazepine cut-o ff is 200 ng/mL.Positive results are unconfirmed and should not be used fornon-medical purposes. Cocaine Screen Urine Not Detected Not Detect [facility] Comment:Cocaine cut-off is 3 00 ng/mL.Positive results are unconfirmed and should not be used fornon-medical purposes. Cannabinoid Screen Urine POSITIVE(A) Not Detect [facility] Comment:Cannabinoid cut-off is 50 ng/mL.Positive results are unconfirmed and should not be used fornon-medical purposes. FENTANYL URINE Not Detected Not Detect [facility] Comment:Fentanyl cut-off is 1 ng/mL.Positive results are unconfirmed and should not be used fornon-medical purposes. 03/20/2023 11:2 1 AM EDT 03/20/2023 11:53 AM EDT [facility] External Provider LAB URI NE ORDERABLES Final Result [facility] [address] [place] [address] [phone] * (ABNORMAL) Urinalysis, Complete, with Reflex to Culture (03/20/2023 11:21 AM EDT) Color Urine Yellow [facility] Appearance Urine Cloudy [facility] PH 5.5 5.0 - 9.0 [facility] Glucose Urine UA Negative Negative mg/dL [facility] Urine Blood Negative Negative [facility] Specific [place] - Urine 1.010 1.005 - 1.025 [facility] Urine Protein Negative Neg-Trace mg/dL [facility] Urine Ketones Negative Negative mg/dL [facility] Nitrite Urine Negative Negative [facility] Leukocyte Esterase Urine Trace(A) Negative [facility] RBC Urine 3-5(A) 0 - 2 /HPF [facility] Urine WBC 0-5 0 - 5 /HPF [facility] Urine Squamous Epithelial Cell 6-10 0 - 2 /HPF [facility] Urine Bacteria Trace None Seen [facility] Hyaline Casts, Urine 0-2 0 - 2 /LPF [facility] 03/20/2023 11:2 1 AM EDT 03/20/2023 11:24 AM EDT Narrative [facility] - 03/20/2023 11:30 AM EDT [id number], Clean Catch [facility] External Provider LAB URI NE ORDERABLES Final Result [facility] [address] [place] [phone] * Ethanol (03/20/2023 11:11 AM EDT) ETHANOL (MG/DL) IN SER/PLAS <10 mg/dL [facility] Comment:Serum/plasma ethanol results are to be used formedical/treatment purposes only. 03/20/2023 11:1 1 AM EDT 03/20/2023 11:19 AM EDT [facility] External Provider LAB BLO OD ORDERABLES Final Result Performing Organization Address [facility] Co de Phone Number [facility] [address] [place] [phone] * High Sensitivity Troponin I (03/20/2023 11:11 AM EDT) [facility] TROPONIN I HIGH SENSITIVITY 4.9 <3.5 - 17.0 ng/L [facility] Comment:The Bishop high sens itivity Troponin-I results should beused in conjunction with other diagnostic information suchas ECG, clinical observations and information, and patientsymptoms to aid in the diagnosis of MO. 03/20/2023 11:1 1 AM EDT 03/20/2023 11:19 AM EDT [facility] External Provider LAB BLO OD ORDERABLES Final Result Performing Organization Address [facility] de Phone Number [facility] [address] [place] [phone] * B Type Natriuretic Peptide (BNP) (03/20/2023 11:11 AM EDT) [facility] B Type Natriuretic Peptide 94 <100 pg/mL [facility] Comment:For those patients w ho are being treated with Natrecor(nesiritide, recombinant BNP), BNP testing should beperformed at least two hours post treatment in order toensure that only endogenous levels of BNP are detected. 03/20/2023 11:1 1 AM EDT 03/20/2023 11:19 AM EDT [facility] External Provider LAB BLO OD ORDERABLES Final Result Performing Organization Address [facility] Co de Phone Number [facility] [address] [place] [phone] * Magnesium (03/20/2023 11:11 AM EDT) [facility] Magnesium 2.1 1.6 - 2.6 mg/dL [facility] 03/20/2023 11:1 1 AM EDT 03/20/2023 11:19 AM EDT [facility] External Provider LAB BLO OD ORDERABLES Final Result [facility] [address] [place] [phone] * (ABNORMAL) Basic Metabolic Panel (03/20/2023 11:11 AM EDT) Sodium 145 135 - 145 mmol/L [facility] Potassium 4.4 3.3 - 5.1 mmol/L [facility] Chloride 109(H) 96 - 108 mmol/L [facility] Carbon Dioxide 29 22 - 29 mmol/L [facility] Anion Gap 11(L) 12 - 20 [facility] Urea Nitrogen (BUN) 15 9 - 16 mg/dL [facility] Creatinine, Serum 0.73 0.5 - 1.4 mg/dL [facility] Creatinine Clr Calc Pharmacy 63.7 [facility] Comment:Provided height and weight: 160.02 cm,80.2 kg.eGFR (calculated from the MDRD study equation) and eCrCl(calculated from the Cockcroft-Gault equation) are based ondifferent parameters and may not yield comparable results.If eCrCl result is absurd, please check patient'sheight/weight. Estimated Glomerular Filt Rate >60 [facility] Comment:NOTE: For -Am erican individuals, multiply the result by 1.210.Chronic Kidney Disease: Estimated GFR < 60 mL/min/[id number] Kidney Disease: Estimated GFR < 15 mL/min/1.73m2 Glucose 92 60 - 115 mg/dL [facility] Calcium 9.4 8.4 - 10.2 mg/dL [facility] 03/20/2023 11:1 1 AM EDT 03/20/2023 11:19 AM EDT [facility] External Provider LAB BLO OD ORDERABLES Final Result Performing Organization Address [facility] Co de Phone Number [facility] [address] [place] [phone] * (ABNORMAL) Hepatic Function Panel (03/20/2023 11:11 AM EDT) Bilirubin, Total 0.8 0.0 - 1.0 mg/dL [facility] Bilirubin, Direct 0.2 0.0 - 0.5 mg/dL [facility] Aspartate Amino Transferase 17 5 - 31 U/L [facility] Alanine Aminotransferase 12 0 - 31 U/L [facility] Total Protein 6.2(L) 6.5 - 8.0 g/dL [facility] Albumin Level 3.8 3.5 - 5.0 g/dL [facility] Alkaline Phosphatase 58 39 - 117 U/L [facility] 03/20/2023 11:1 1 AM EDT 03/20/2023 11:19 AM EDT [facility] External Provider LAB BLO OD ORDERABLES Final Result Performing Organization Address [facility] de Phone Number [facility] [address] [place] [phone] * COVID-19 ID NOW (BISHOP) (03/20/2023 11:11 AM EDT) IDNOW SERIAL# [id number] [facility] COVID-19 TEST Negative Negative [facility] COVID-19 NOTE See Note [facility] Comment: Results are for the identification of SARS-CoV2 RNA. TheSARS-CoV2 RNA is generally detectable in respiratory samplesduring the acute phase of infection. Positive results areindicative of the presence of SARS-CoV-2 RNA; clinicalcorrelation with patient history and other diagnosticinformation is necessary to determine patient infectionstatus. Positive results do not rule out bacterial infectionor co- infection with other viruses.Testing facilities within the [facility] and [facility] are required to report all positive results [...] use by authorized laboratories.Testing performed on the [employer] NOW utilizing NAAT. 03/20/2023 11:1 1 AM EDT 03/20/2023 11:18 AM EDT [facility] Exter nal Provider LAB MOLECULAR DIAGNOSTICS ORDERABLES Final Result [facility] [address] [place] [phone] * (ABNORMAL) CBC auto differential (03/20/2023 11:11 AM EDT) White Blood Count 6.0 4.8 - 10.8 X10*3/uL [facility] Red Blood Count 3.33(L) 4.20 - 5.50 X10*6/uL [facility] Hemoglobin 10.0(L) 12.0 - 16.0 g/dl [facility] Hematocrit 32.1(L) 37.0 - 47.0 % [facility] Mean Corpuscular Volume 96.4 80.0 - 98.0 fL [facility] Mean Corpuscular Hemoglobin 30.0 27.0 - 33.0 pg [facility] Mean Corpuscular HGB Conc 31.2 31.0 - 35.0 g/dl [facility] Red Cell Distribution Width 15.0 11.0 - 16.0 % [facility] Platelet Count 71(L) 160 - 400 X10*3/uL [facility] Neutrophils Percent Auto 71.3 45 - 73 % [facility] Imm Gran Pct Auto 0.2 0.0 - 0.4 % [facility] Lymphocytes Percent Auto 14.5(L) 20 - 40 % [facility] Monocytes Percent Auto 9.6 2 - 11 % [facility] Eosinophils Percent Auto 3.7 0 - 4 % [facility] Basophils Percent Auto 0.7 0 - 2 % [facility] NRBC Pct Auto 0.0 0.0 - 0.2 /100WBC [facility] Neutrophils Absolute Auto 4.3 2.0 - 8.3 x10*3/uL [facility] Imm Gran Abs Auto 0.01 0.00 - 0.03 X10*3/uL [facility] Lymphocytes Absolute Auto 0.9(L) 1.2 - 4.9 X10*3/uL [facility] Monocytes Absolute Auto 0.6 0.1 - 1.2 X10*3/uL [facility] Eosinophils Absolute Auto 0.2 0.0 - 0.4 X10*3/uL [facility] Basophils Absolute Auto 0.0 0.0 - 0.2 X10*3/uL [facility] NRBC Abs Auto 0.000 0.0 - 0.012 X10*3/uL [facility] 03/20/2023 11:1 1 AM EDT 03/20/2023 11:19 AM EDT [facility] External Provider LAB BLO OD ORDERABLES Final Result [facility] [address], [place] [phone] * Prothrombin Time-INR (03/20/2023 11:11 AM EDT) Prothrombin Time 13.0 10.0 - 13.1 SEC [facility] INTERNATIONAL NORM RATIO 1.1 0.9 - 1.1 [facility] Comment:INTERNATIONAL NORMAL IZED RATIO (INR) REFERENCE [...] AM EDT 03/20/2023 11:19 AM EDT [facility] External Provider LAB BLO OD ORDERABLES Final Result [facility] [address] [place] [phone] * (ABNORMAL) CBC (12/09/2022 5:40 AM EDT) White Blood Count 6.7 4.8 - 10.8 X10*3/uL [facility] Red Blood Count 2.88(L) 4.20 - 5.50 X10*6/uL [facility] Hemoglobin 7.0(LL) 12.0 - 16.0 g/dl [facility] Comment:Critical HGB sent by a secure message and confirmed byMERVIN MOSQUERA on 12/09/22 at 0726 by CODIE. Hematocrit 24.2(L) 37.0 - 47.0 % [facility] Mean Corpuscular Volume 84.0 80.0 - 98.0 fL [facility] Mean Corpuscular Hemoglobin 24.3(L) 27.0 - 33.0 pg [facility] Mean Corpuscular HGB Conc 28.9(L) 31.0 - 35.0 g/dl [facility] Red Cell Distribution Width 19.8(H) 11.0 - 16.0 % [facility] Platelet Count 59(L) 160 - 400 X10*3/uL [facility] NRBC Pct Auto 0.0 0.0 - 0.2 /100WBC [facility] NRBC Abs Auto 0.000 0.0 - 0.012 X10*3/uL [facility] 12/09/2022 5:40 AM EDT 12/09/2022 6:43 AM EDT [facility] External Provider LAB BLO OD ORDERABLES Final Result [facility] [address] [place] [phone] * (ABNORMAL) CBC auto differential (12/08/2022 5:58 AM EDT) White Blood Count 8.5 4.8 - 10.8 X10*3/uL [facility] Red Blood Count 2.92(L) 4.20 - 5.50 X10*6/uL [facility] Hemoglobin 6.9(LL) 12.0 - 16.0 g/dl [facility] Comment:Critical HGB sent by a secure message and confirmed byYUDITH on 12/08/22 at 0846 by YAZAN. Hematocrit 24.2(L) 37.0 - 47.0 % [facility] Mean Corpuscular Volume 82.9 80.0 - 98.0 fL [facility] Mean Corpuscular Hemoglobin 23.6(L) 27.0 - 33.0 pg [facility] Mean Corpuscular HGB Conc 28.5(L) 31.0 - 35.0 g/dl [facility] Red Cell Distribution Width 19.7(H) 11.0 - 16.0 % [facility] Platelet Count 77(L) 160 - 400 X10*3/uL [facility] Neutrophils Percent Auto 77.9(H) 45 - 73 % [facility] Imm Gran Pct Auto 0.4 0.0 - 0.4 % [facility] Lymphocytes Percent Auto 8.6(L) 20 - 40 % [facility] Monocytes Percent Auto 12.5(H) 2 - 11 % [facility] Eosinophils Percent Auto 0.2 0 - 4 % [facility] Basophils Percent Auto 0.4 0 - 2 % [facility] NRBC Pct Auto 0.0 0.0 - 0.2 /100WBC [facility] Neutrophils Absolute Auto 6.7 2.0 - 8.3 x10*3/uL [facility] Imm Gran Abs Auto 0.03 0.00 - 0.03 X10*3/uL [facility] Lymphocytes Absolute Auto 0.7(L) 1.2 - 4.9 X10*3/uL [facility] Monocytes Absolute Auto 1.1 0.1 - 1.2 X10*3/uL [facility] Eosinophils Absolute Auto 0.0 0.0 - 0.4 X10*3/uL [facility] Basophils Absolute Auto 0.0 0.0 - 0.2 X10*3/uL [facility] NRBC Abs Auto 0.000 0.0 - 0.012 X10*3/uL [facility] 12/08/2022 5:58 AM EDT 12/08/2022 6:50 AM EDT [facility] External Provider LAB BLO OD ORDERABLES Edited Result - Final [facility] [address] [place] [phone] * (ABNORMAL) Basic Metabolic Panel, Fasting (12/08/2022 5:58 AM EDT) Sodium 140 135 - 145 mmol/L [facility] Potassium 4.3 3.3 - 5.1 mmol/L [facility] Chloride 106 96 - 108 mmol/L [facility] Carbon Dioxide 24 22 - 29 mmol/L [facility] Anion Gap 14 12 - 20 [facility] Urea Nitrogen (BUN) 13 9 - 16 mg/dL [facility] Creatinine, Serum 0.73 0.5 - 1.4 mg/dL [facility] Creatinine Clr Calc Pharmacy 62.7 [facility] Comment:Provided height and weight: 160.02 cm,78.01 kg.eGFR (calculated from the MDRD study equation) and eCrCl(calculated from the Cockcroft-Gault equation) are based ondifferent parameters and may not yield comparable results.If eCrCl result is absurd, please check patient'sheight/weight. Estimated Glomerular Filt Rate >60 [facility] Comment:NOTE: For -Am erican individuals, multiply the result by 1.210.Chronic Kidney Disease: Estimated GFR < 60 mL/min/[id number] Kidney Disease: Estimated GFR < 15 mL/min/1.73m2 Glucose Fasting 110(H) 60 - 99 mg/dL [facility] Comment:A fasting glucose fr om 100-125 mg/dl is considered impaired(pre-diabetes). Calcium 8.2(L) 8.4 - 10.2 mg/dL [facility] 12/08/2022 5:58 AM EDT 12/08/2022 6:58 AM EDT [facility] External Provider LAB BLO OD ORDERABLES Final Result Performing Organization Address [facility] Co de Phone Number [facility] [address] [place] [phone] * Slide Review (12/07/2022 4:40 PM EDT) Slide Review VERIFIED [facility] 12/07/2022 4:40 PM EDT 12/07/2022 4:48 PM EDT [facility] External Provider LAB BLO OD ORDERABLES Final Result Performing Organization Address [facility] Co de Phone Number [facility] [address] [place] [phone] * (ABNORMAL) CBC auto differential (12/07/2022 4:40 PM EDT) White Blood Count 7.5 4.8 - 10.8 X10*3/uL [facility] Red Blood Count 3.04(L) 4.20 - 5.50 X10*6/uL [facility] Hemoglobin 7.3(L) 12.0 - 16.0 g/dl [facility] Hematocrit 25.3(L) 37.0 - 47.0 % [facility] Mean Corpuscular Volume 83.2 80.0 - 98.0 fL [facility] Mean Corpuscular Hemoglobin 24.0(L) 27.0 - 33.0 pg [facility] Mean Corpuscular HGB Conc 28.9(L) 31.0 - 35.0 g/dl [facility] Red Cell Distribution Width 19.8(H) 11.0 - 16.0 % [facility] Platelet Count 70(L) 160 - 400 X10*3/uL [facility] Neutrophils Percent Auto 89.8(H) 45 - 73 % [facility] Imm Gran Pct Auto 0.3 0.0 - 0.4 % [facility] Lymphocytes Percent Auto 5.0(L) 20 - 40 % [facility] Monocytes Percent Auto 3.4 2 - 11 % [facility] Eosinophils Percent Auto 0.8 0 - 4 % [facility] Basophils Percent Auto 0.7 0 - 2 % [facility] NRBC Pct Auto 0.0 0.0 - 0.2 /100WBC [facility] Neutrophils Absolute Auto 6.8 2.0 - 8.3 x10*3/uL [facility] Imm Gran Abs Auto 0.02 0.00 - 0.03 X10*3/uL [facility] Lymphocytes Absolute Auto 0.4(L) 1.2 - 4.9 X10*3/uL [facility] Monocytes Absolute Auto 0.3 0.1 - 1.2 X10*3/uL [facility] Eosinophils Absolute Auto 0.1 0.0 - 0.4 X10*3/uL [facility] Basophils Absolute Auto 0.1 0.0 - 0.2 X10*3/uL [facility] NRBC Abs Auto 0.000 0.0 - 0.012 X10*3/uL [facility] 12/07/2022 4:40 PM EDT 12/07/2022 4:48 PM EDT [facility] External Provider LAB BLO OD ORDERABLES Edited Result - Final [facility] [address] [place] [phone] * COVID-19 ID NOW (BISHOP) (12/07/2022 1:41 PM EDT) IDNOW SERIAL# [id number] [facility] COVID-19 TEST Negative Negative [facility] Comment:[place] [id number] COVID-19 NOTE See Note [facility] Comment: Results are for the identification of SARS-CoV2 RNA. TheSARS-CoV2 RNA is generally detectable in respiratory samplesduring the acute phase of infection. Positive results areindicative of the presence of SARS-CoV-2 RNA; clinicalcorrelation with patient history and other diagnosticinformation is necessary to determine patient infectionstatus. Positive results do not rule out bacterial infectionor co- infection with other viruses.Testing facilities within the [facility] and [facility] are required to report all positive results [...] 1:41 PM EDT 12/07/2022 1:58 PM EDT [facility] Exter nal Provider LAB MOLECULAR DIAGNOSTICS ORDERABLES Final Result [facility] [address], [place] [phone] * (ABNORMAL) CBC auto differential (12/07/2022 1:25 PM EDT) White Blood Count 5.6 4.8 - 10.8 X10*3/uL [facility] Red Blood Count 3.15(L) 4.20 - 5.50 X10*6/uL [facility] Hemoglobin 7.5(L) 12.0 - 16.0 g/dl [facility] Hematocrit 26.2(L) 37.0 - 47.0 % [facility] Mean Corpuscular Volume 83.2 80.0 - 98.0 fL [facility] Mean Corpuscular Hemoglobin 23.8(L) 27.0 - 33.0 pg [facility] Mean Corpuscular HGB Conc 28.6(L) 31.0 - 35.0 g/dl [facility] Red Cell Distribution Width 19.8(H) 11.0 - 16.0 % [facility] Platelet Count 69(L) 160 - 400 X10*3/uL [facility] Neutrophils Percent Auto 76.4(H) 45 - 73 % [facility] Imm Gran Pct Auto 0.2 0.0 - 0.4 % [facility] Lymphocytes Percent Auto 11.9(L) 20 - 40 % [facility] Monocytes Percent Auto 9.0 2 - 11 % [facility] Eosinophils Percent Auto 1.6 0 - 4 % [facility] Basophils Percent Auto 0.9 0 - 2 % [facility] NRBC Pct Auto 0.0 0.0 - 0.2 /100WBC [facility] Neutrophils Absolute Auto 4.3 2.0 - 8.3 x10*3/uL [facility] Imm Gran Abs Auto 0.01 0.00 - 0.03 X10*3/uL [facility] Lymphocytes Absolute Auto 0.7(L) 1.2 - 4.9 X10*3/uL [facility] Monocytes Absolute Auto 0.5 0.1 - 1.2 X10*3/uL [facility] Eosinophils Absolute Auto 0.1 0.0 - 0.4 X10*3/uL [facility] Basophils Absolute Auto 0.1 0.0 - 0.2 X10*3/uL [facility] NRBC Abs Auto 0.000 0.0 - 0.012 X10*3/uL [facility] 12/07/2022 1:25 PM EDT 12/07/2022 1:27 PM EDT [facility] External Provider LAB BLO OD ORDERABLES Final Result Performing Organization Address [facility] Co de Phone Number [facility] LABS [address] [place] [phone] * (ABNORMAL) B Type Natriuretic Peptide (BNP) (10/12/2022 4:50 PM EST) B Type Natriuretic Peptide 135(H) <100 pg/mL [facility] Comment:For those patients w ho are being treated with Natrecor(nesiritide, recombinant BNP), BNP testing should beperformed at least two hours post treatment in order toensure that only endogenous levels of BNP are detected. 10/12/2022 4:50 PM EST 10/12/2022 6:16 PM EST [facility] External Provider LAB BLO OD ORDERABLES Final Result Performing Organization Address [facility] Co de Phone Number [facility] [address] [place] [phone] * Slide Review (10/12/2022 4:50 PM EST) Slide Review VERIFIED [facility] 10/12/2022 4:50 PM EST 10/12/2022 5:10 PM EST [facility] External Provider LAB BLO OD ORDERABLES Final Result [facility] [address] [place] [address] [phone] * (ABNORMAL) CBC auto differential (10/12/2022 4:50 PM EST) White Blood Count 5.5 4.8 - 10.8 X10*3/uL [facility] Red Blood Count 2.42(L) 4.20 - 5.50 X10*6/uL [facility] Hemoglobin 4.8(LL) 12.0 - 16.0 g/dl [facility] Comment:Results of HGB, HCT called to and read back by Roseline 10/12/22 at 1730 by GRIS. Hematocrit 18.5(LL) 37.0 - 47.0 % [facility] Mean Corpuscular Volume 76.4(L) 80.0 - 98.0 fL [facility] Mean Corpuscular Hemoglobin 19.8(L) 27.0 - 33.0 pg [facility] Mean Corpuscular HGB Conc 25.9(L) 31.0 - 35.0 g/dl [facility] Red Cell Distribution Width 17.9(H) 11.0 - 16.0 % [facility] Platelet Count 54(L) 160 - 400 X10*3/uL [facility] Neutrophils Percent Auto 67.6 45 - 73 % [facility] Imm Gran Pct Auto 0.2 0.0 - 0.4 % [facility] Lymphocytes Percent Auto 20.0 20 - 40 % [facility] Monocytes Percent Auto 9.9 2 - 11 % [facility] Eosinophils Percent Auto 1.8 0 - 4 % [facility] Basophils Percent Auto 0.5 0 - 2 % [facility] NRBC Pct Auto 0.0 0.0 - 0.2 /100WBC [facility] Neutrophils Absolute Auto 3.7 2.0 - 8.3 x10*3/uL [facility] Imm Gran Abs Auto 0.01 0.00 - 0.03 X10*3/uL [facility] Lymphocytes Absolute Auto 1.1(L) 1.2 - 4.9 X10*3/uL [facility] Monocytes Absolute Auto 0.5 0.1 - 1.2 X10*3/uL [facility] Eosinophils Absolute Auto 0.1 0.0 - 0.4 X10*3/uL [facility] Basophils Absolute Auto 0.0 0.0 - 0.2 X10*3/uL [facility] NRBC Abs Auto 0.000 0.0 - 0.012 X10*3/uL [facility] 10/12/2022 4:50 PM EST 10/12/2022 5:10 PM EST us [facility] External Provider LAB BLO OD ORDERABLES Edited Result - Final Performing Organization Address City/State/[facility] Co de Phone Number [facility] [address] [place] [phone] documented in this encounter Visit Diagnoses Not on filedocumented in this encounter Care Teams Hash Slinger Relationship Specialty Start Date End Date Name, MD Joseph [address] [place] [address] PCP - General Family Medicine 01/21/22 documented as of this encounter
--- OUTSIDE RECORDS SUMMARY | 2025-06-26 21:43 | XMS_ITS | Encounter Summary ---
Author Organization [employer] Address 75 [facility] 7t [place] [address] Care Team Providers Care Circular Sawyer Stone Name Role Phone Name, Joseph KIM Primary Care Provider [phone] Reason for Visit * Reason Onset Date Comments Call Back Request 02/13/2024 Encounter Details Date Type Department Care Team ([facility] Contact Info) Description 02/13/2024 Telephone [facility] [address] [place], [place] [phone] Name, MD Joseph [address] [place], [place] [phone] Call Back Request Social History Tobacco Use [...] it evaluated. Stated she originally called this specification writer about her medications, but has since figured it all out. Will forward message to PCP as ANTONIO. * Telephone Encounter - Althea Edouard - 02/13/2024 8:49 AM EDT Tc from pt requesting a call back in regards medications. documented in this encounter Plan of Treatment Upcoming Encounters Date Type Department Care Team (Late st Contact Info) Description 08/29/2025 9:30 AM EST Telemedicine [address] [address] Kaitlynn Landrum RN 09/17/2025 11:15 AM EST Office Visit [address] [address] Name, MD Joseph [address] [place] [address] documented as of this encounter Visit Diagnoses Not on filedocumented in this encounter Additional Health Concerns Assessment Noted Time PHQ-9 Depression Total Score: 0 01/30/20 24 11:07 AM EDT documented as of this encounter Care Teams Circular Sawyer Stone Relationship Specialty Start Date End Date Name, MD Joseph [address] [place] [address] PCP - General Family Medicine 01/21/22 documented as of this encounter
--- OUTSIDE RECORDS SUMMARY | 2025-06-26 21:44 | XMS_ITS | Encounter Summary ---
Author Organization [employer] Address 75 [facility] 7t [place] [address] Care Team Providers Care Billet Straightener Name Role Phone Name, Joseph KIM Primary Care Provider [phone] Reason for Visit * Reason Onset Date Comments Med Refill 07/28/2023 Encounter Details Date Type Department Care Team ([facility] st Contact Info) Description 07/28/2023 Telephone [facility] MEDICINE 230 [place], [place] [phone] Name, MD Joseph 230 [place], [place] [phone] Med Refill Social History Tobacco Use Types [...] t he electric, gas, oil or water [employer] threatened to shut off services in your [...] from patient requesting medication refill for HYDROcodone-acetaminophen (Inlet) 7.5-325 MG tablet. documented in this encounter Plan of Treatment Upcoming Encounters Date Type Department Care Team (Late st Contact Info) Description 08/29/2025 9:30 AM EST Telemedicine [facility] MEDICINE [address] [place] [address] Kaitlynn Landrum RN 09/17/2025 11:15 AM EST Office Visit [facility] [address] [place] [address] Name, MD Joseph [address] [place] [address] documented as of this encounter Visit Diagnoses Not on filedocumented in this encounter Additional Health Concerns Assessment Noted Time PHQ-9 Depression Total Score: 4 09/22/19 23 11:14 AM EST documented as of this encounter Care Teams Billet Straightener Relationship Specialty Start Date End Date Name, MD Joseph [address] [place] [address] PCP - General Family Medicine 01/21/22 documented as of this encounter
--- OUTSIDE RECORDS SUMMARY | 2025-06-26 21:44 | XMS_ITS | Encounter Summary ---
Author Organization [employer] Address 75 [facility] 7t [place] [address] Care Team Providers Care Associate Principal Name Role Phone Name, Joseph KIM Primary Care Provider [phone] Reason for Visit * Reason Onset Date Comments Med Refill 10/08/2024 Encounter Details Date Type Department Care Team ([facility] st Contact Info) Description 10/08/2024 Telephone [facility] MEDICINE 230 [place], [place] [phone] Name, MD Joseph [address] [place], [place] [phone] Med Refill Social History Tobacco Use Types [...] Fe) MG tablet To be sent to: [facility] [place] [address] Reuben documented in this encounter Plan of Treatment Upcoming Encounters Date Type Department Care Team (Late st Contact Info) Description 08/29/2025 9:30 AM EST Telemedicine [facility] MED[facility]INE [address] [place] [address] Kaitlynn Landrum RN 09/17/2025 11:15 AM EST Office Visit [facility] [address] [place] [phone] Name, MD Joseph [address] [place] [address] documented as of this encounter Visit Diagnoses Not on filedocumented in this encounter Additional Health Concerns Assessment Noted Time PHQ-9 Depression Total Score: 0 01/30/20 24 11:07 AM EDT documented as of this encounter Care Teams Associate Principal Relationship Specialty Start Date End Date Name, MD Joseph [address] [place] [address] PCP - General Family Medicine 01/21/22 documented as of this encounter
--- OUTSIDE RECORDS SUMMARY | 2025-06-26 21:44 | XMS_ITS | Encounter Summary ---
Author Organization [employer] Address 75 [facility] 7t [place] [address] Care Team Providers Care Hydrotherapist Name Role Phone Name, Joseph KIM Primary Care Provider [phone] Encounter Details Date Type Department Care Team (Late st Contact Info) Description 08/23/2024 Orders Only [facility] MEDICINE 230 [place], [place] [phone] Name, MD Joseph [address] [place], [place] [phone] Iron deficiency anemia, unspecified iron deficiency anemia [...] Info) Description 08/29/2025 9:30 AM EST Telemedicine [address] [address] Kaitlynn Landrum RN 09/17/2025 11:15 AM EST Office Visit [address] [address] Name, MD Joseph [address] [place] [address] documented as of this encounter Procedures Procedure Name Priority Date/Time Associated Diagnosis Comments CBC WITH AUTO DIFFERENTIAL Routine 01/10/2025 3:22 PM EDT Iron deficiency anemia, unspecified iron deficiency anemia type documented in this encounter Results * (ABNORMAL) CBC auto differential (01/10/2025 3:22 PM EDT) White Blood Count 10.6 4.8 - 10.8 X10*3/uL [facility] Red Blood Count 2.98(L) 4.20 - 5.50 X10*6/uL [facility] Hemoglobin 9.1(L) 12.0 - 16.0 g/dl [facility] Hematocrit 29.5(L) 37.0 - 47.0 % [facility] Mean Corpuscular Volume 99.0(H) 80.0 - 98.0 fL [facility] Mean Corpuscular Hemoglobin 30.5 27.0 - 33.0 pg [facility] Mean Corpuscular HGB Conc 30.8(L) 31.0 - 35.0 g/dl [facility] Red Cell Distribution Width 17.2(H) 11.0 - 16.0 % [facility] Platelet Count 125(L) 160 - 400 X10*3/uL [facility] Neutrophils Percent Auto 73.3(H) 45 - 73 % [facility] Imm Gran Pct Auto 0.3 0.0 - 0.4 % [facility] Lymphocytes Percent Auto 13.9(L) 20 - 40 % [facility] Monocytes Percent Auto 8.8 2 - 11 % [facility] Eosinophils Percent Auto 3.0 0 - 4 % [facility] Basophils Percent Auto 0.7 0 - 2 % [facility] NRBC Pct Auto 0.0 0.0 - 0.2 /100WBC [facility] Neutrophils Absolute Auto 7.7 2.0 - 8.3 x10*3/uL [facility] Imm Gran Abs Auto 0.03 0.00 - 0.03 X10*3/uL [facility] Lymphocytes Absolute Auto 1.5 1.2 - 4.9 X10*3/uL [facility] Monocytes Absolute Auto 0.9 0.1 - 1.2 X10*3/uL [facility] Eosinophils Absolute Auto 0.3 0.0 - 0.4 X10*3/uL [facility] Basophils Absolute Auto 0.1 0.0 - 0.2 X10*3/uL [facility] NRBC Abs Auto 0.000 0.0 - 0.012 X10*3/uL [facility] Blood Venous blood specimen / Unknown 01/10/2025 3:22 PM EDT 01/10/2025 4:01 PM EDT us Joseph Magana MD LAB BLOOD ORDERABLES Edited Resu lt - Final [facility] [address] [place], [place] [phone] documented in this encounter Visit Diagnoses Diagnosis Iron deficiency anemia, unspecified iron deficiency anemia type documented in this encounter Additional Health Concerns Assessment Noted Time PHQ-9 Depression Total Score: 0 01/30/20 24 11:07 AM EDT documented as of this encounter Care Teams Hydrotherapist Relationship Specialty Start Date End Date Name, MD Joseph [address] [place] [address] PCP - General Family Medicine 01/21/22 documented as of this encounter
--- OUTSIDE RECORDS SUMMARY | 2025-06-26 21:44 | XMS_ITS | Encounter Summary ---
Author Organization [employer] Address 75 [facility] 7t [place] [address] Care Team Providers Care Resident Care Manager Rn Name Role Phone Name, Joseph KIM Primary Care Provider [phone] Encounter Details Date Type Department Care Team (Late st Contact Info) Description 08/30/2024 Orders Only [facility] MEDICINE [address] [place], [place] [phone] Name, MD Joseph [address] [place], [place] [phone] Iron deficiency anemia, unspecified iron deficiency anemia [...] Info) Description 08/29/2025 9:30 AM EST Telemedicine [facility] MEDICINE [address] [place] [address] Kaitlynn Landrum RN 09/17/2025 11:15 AM EST Office Visit [address] [address] Name, MD Joseph [address] [place] [address] documented as of this encounter Visit Diagnoses Diagnosis Iron deficiency anemia, unspecified iron deficiency anemia type documented in this encounter Additional Health Concerns Assessment Noted Time PHQ-9 Depression Total Score: 0 01/30/20 24 11:07 AM EDT documented as of this encounter Care Teams Resident Care Manager Rn Relationship Specialty Start Date End Date Name, MD Joseph [address] [place] [address] PCP - General Family Medicine 01/21/22 documented as of this encounter
--- OUTSIDE RECORDS SUMMARY | 2025-06-26 21:44 | XMS_ITS | Encounter Summary ---
Author Organization [employer] Address 75 [facility] 7t [place] [address] Care Team Providers Care Trap Puller Name Role Phone Name, Joseph KIM Primary Care Provider [phone] Encounter Details Date Type Department Care Team (Late st Contact Info) Description 07/19/2024 Orders Only [facility] MED[facility]INE 230 [place], [place] [phone] Name, MD Joseph 230 [place], [place] [phone] Iron deficiency anemia, unspecified iron deficiency anemia [...] Info) Description 08/29/2025 9:30 AM EST Telemedicine [address] [address] Kaitlynn Landrum RN 09/17/2025 11:15 AM EST Office Visit [address] [address] Name, MD Joseph [address] [place] [address] documented as of this encounter Procedures Procedure Name Priority Date/Time Associated Diagnosis Comments CBC WITH AUTO DIFFERENTIAL Routine 07/23/2024 2:15 PM EST Iron deficiency anemia, unspecified iron deficiency anemia type documented in this encounter Results * (ABNORMAL) CBC auto differential (07/23/2024 2:15 PM EST) White Blood Count 9.9 4.8 - 10.8 X10*3/uL [facility] Red Blood Count 3.50(L) 4.20 - 5.50 X10*6/uL [facility] Hemoglobin 9.8(L) 12.0 - 16.0 g/dl [facility] Hematocrit 32.9(L) 37.0 - 47.0 % [facility] Mean Corpuscular Volume 94.0 80.0 - 98.0 fL [facility] Mean Corpuscular Hemoglobin 28.0 27.0 - 33.0 pg [facility] Mean Corpuscular HGB Conc 29.8(L) 31.0 - 35.0 g/dl [facility] Red Cell Distribution Width 19.3(H) 11.0 - 16.0 % [facility] Platelet Count 88(L) 160 - 400 X10*3/uL [facility] Comment:Confirmed by smear. Mean Platelet Volume TNP 9.4 - 12.3 fL [facility] Neutrophils Percent Auto 76.1(H) 45 - 73 % [facility] Imm Gran Pct Auto 0.3 0.0 - 0.4 % [facility] Lymphocytes Percent Auto 12.0(L) 20 - 40 % [facility] Monocytes Percent Auto 9.2 2 - 11 % [facility] Eosinophils Percent Auto 1.8 0 - 4 % [facility] Basophils Percent Auto 0.6 0 - 2 % [facility] NRBC Pct Auto 0.0 0.0 - 0.2 /100WBC [facility] Neutrophils Absolute Auto 7.6 2.0 - 8.3 x10*3/uL [facility] Imm Gran Abs Auto 0.03 0.00 - 0.03 X10*3/uL [facility] Lymphocytes Absolute Auto 1.2 1.2 - 4.9 X10*3/uL [facility] Monocytes Absolute Auto 0.9 0.1 - 1.2 X10*3/uL [facility] Eosinophils Absolute Auto 0.2 0.0 - 0.4 X10*3/uL [facility] Basophils Absolute Auto 0.1 0.0 - 0.2 X10*3/uL [facility] NRBC Abs Auto 0.000 0.0 - 0.012 X10*3/uL [facility] Blood Venous blood specimen / Unknown 07/23/2024 2:15 PM EST 07/23/2024 4:10 PM EST us Joseph Magana MD LAB BLOOD ORDERABLES Edited Resu lt - Final [facility] [address] [place], [place] [phone] documented in this encounter Visit Diagnoses Diagnosis Iron deficiency anemia, unspecified iron deficiency anemia type documented in this encounter Additional Health Concerns Assessment Noted Time PHQ-9 Depression Total Score: 0 01/30/20 24 11:07 AM EDT documented as of this encounter Care Teams Trap Puller Relationship Specialty Start Date End Date Name, MD Joseph [address] [place] [address] PCP - General Family Medicine 01/21/22 documented as of this encounter
--- OUTSIDE RECORDS SUMMARY | 2025-06-26 21:44 | XMS_ITS | Encounter Summary ---
Author Organization [employer] Address 75 [facility] 7t [place] [address] Care Team Providers Care Window Installer Name Role Phone Name, Joseph KIM Primary Care Provider [phone] Encounter Details Date Type Department Care Team ([facility] st Contact Info) Description 06/20/2025 Orders Only [facility] MEDICINE 230 [place], [place] [phone] Name, MD Joseph [address] [place], [place] [phone] Chronic anemia; History of GI bleed Social History Tobacco Use Types Packs/Day Years [...] Info) Description 08/29/2025 9:30 AM EST Telemedicine [facility] MEDICINE [address] [place] [address] Kaitlynn Landrum RN 09/17/2025 11:15 AM EST Office Visit [facility]INE [address] [place] [phone] NameJoseph MD [address] [place] [address] documented as of this encounter Visit Diagnoses Diagnosis Chronic anemia Unspecified anemia History of GI bleed documented in this encounter Additional Health Concerns Assessment Noted Time PHQ-9 Depression Total Score: 2 04/04/20 25 11:39 AM EDT documented as of this encounter Care Teams Window Installer Relationship Specialty Start Date End Date NameJoseph MD [address] [place] [address] PCP - General Family Medicine 01/21/22 documented as of this encounter
--- OUTSIDE RECORDS SUMMARY | 2025-06-26 21:44 | XMS_ITS | Encounter Summary ---
Author Organization [employer] Address 75 [facility] 7t [place] [address] Care Team Providers Care Parole Officer Name Role Phone Name, Joseph KIM Primary Care Provider [phone] Encounter Details Date Type Department Care Team (Late st Contact Info) Description 07/12/2024 Orders Only [facility] MED[facility]INE 230 [place], [place] [phone] Name, MD Joseph [address] [place], [place] [phone] Iron deficiency anemia, unspecified iron deficiency anemia [...] Info) Description 08/29/2025 9:30 AM EST Telemedicine [facility] [address] [place] [address] Kaitlynn Landrum RN 09/17/2025 11:15 AM EST Office Visit [address] [address] Name, MD Joseph [address] [place] [address] documented as of this encounter Visit Diagnoses Diagnosis Iron deficiency anemia, unspecified iron deficiency anemia type documented in this encounter Additional Health Concerns Assessment Noted Time PHQ-9 Depression Total Score: 0 01/30/20 24 11:07 AM EDT documented as of this encounter Care Teams Parole Officer Relationship Specialty Start Date End Date Name, MD Joseph [address] [place] [address] PCP - General Family Medicine 01/21/22 documented as of this encounter
--- OUTSIDE RECORDS SUMMARY | 2025-06-26 21:44 | XMS_ITS | Encounter Summary ---
Author Organization [employer] Address 75 [facility] 7t [place] [address] Care Team Providers Care Automotive Upholsterer Name Role Phone Name, Joseph KIM Primary Care Provider [phone] Encounter Details Date Type Department Care Team (Late st Contact Info) Description 08/16/2024 Orders Only [facility] MEDICINE 230 [place], [place] [phone] Name, MD Joseph 230 [place], [place] [phone] Iron deficiency anemia, unspecified iron deficiency anemia [...] Info) Description 08/29/2025 9:30 AM EST Telemedicine [facility] [address] [place] [address] Kaitlynn Landrum RN 09/17/2025 11:15 AM EST Office Visit [address] [address] Name, MD Joseph [address] [place] [address] documented as of this encounter Visit Diagnoses Diagnosis Iron deficiency anemia, unspecified iron deficiency anemia type documented in this encounter Additional Health Concerns Assessment Noted Time PHQ-9 Depression Total Score: 0 01/30/20 24 11:07 AM EDT documented as of this encounter Care Teams Automotive Upholsterer Relationship Specialty Start Date End Date Name, MD Joseph [address] [place] [address] PCP - General Family Medicine 01/21/22 documented as of this encounter
--- OUTSIDE RECORDS SUMMARY | 2025-06-26 21:44 | XMS_ITS | Encounter Summary ---
Author Organization [employer] [facility] Address [address] [place] [address] 7t [place] [address] Care Team Providers Care Garage Construction Equipment Mechanic Name Role Phone Name, Joseph KIM Primary Care Provider [phone] Encounter Details Date Type Department Care Team (Late st Contact Info) Description 11/11/2022 Abstract [facility] MEDICINE [address] [place] [address] [phone] Name, MD Joseph [address] [place] [phone] Social History Tobacco Use Types Packs/Day Years [...] Info) Description 08/29/2025 9:30 AM EST Telemedicine [facility] MEDICINE [address] [place] [address] Kaitlynn Landrum RN 09/17/2025 11:15 AM EST Office Visit [facility] MEDICINE [address] [place] [address] Name, [place] [address] documented as of this encounter Visit Diagnoses Not on filedocumented in this encounter Additional Health Concerns Assessment Noted Time PHQ-9 Depression Total Score: 4 09/22/19 11:14 AM EST documented as of this encounter Care Teams Garage Construction Equipment Mechanic Relationship Specialty Start Date End Date Name, [place] [address] PCP - General Family Medicine 01/21/22 documented as of this encounter
--- OUTSIDE RECORDS SUMMARY | 2025-06-26 21:44 | XMS_ITS | Encounter Summary ---
Author Organization [employer] Address 75 [facility] 7t [place] [address] Care Team Providers Care Homicide Investigator Name Role Phone Name, Joseph KIM Primary Care Provider [phone] Encounter Details Date Type Department Care Team (Late st Contact Info) Description 04/28/2025 Results Follow-Up [facility] MEDICINE 230 [place], [place] [phone] Name, MD Joseph [address] [place] [address] CTA Chest PE Protocal Social History Tobacco [...] Info) Description 08/29/2025 9:30 AM EST Telemedicine [facility] [address] [place] [address] Kaitlynn Landrum RN 09/17/2025 11:15 AM EST Office Visit [facility] [address] [place] [address] Name, MD Joseph [address] [place] [address] documented as of this encounter Visit Diagnoses Not on filedocumented in this encounter Additional Health Concerns Assessment Noted Time PHQ-9 Depression Total Score: 2 04/04/20 25 11:39 AM EDT documented as of this encounter Care Teams Homicide Investigator Relationship Specialty Start Date End Date Name, MD Joseph [address] [place] [address] PCP - General Family Medicine 01/21/22 documented as of this encounter
--- OUTSIDE RECORDS SUMMARY | 2025-06-26 21:44 | XMS_ITS | Clinical Summary ---
Author Organization [employer] Address [address] [place] [address] [address] [place] [address] Care Team Providers Care [employer] Music Director Name Role Phone Name, Joseph KIM Primary Care Provider [phone] Allergies Active Allergy Reactions Criticality Noted Date Comments Uojcodpiea-Vispfmk-Axtprpsytc 2017 Penicillin G 08/24/2022 Penicillin V Hives,Rash Low 04/04/2008 Penicillins Hives 12/23/2022 Sulfa Antibiotics Hives 01/19/2016 Sulfacetamide Diarrhea,Dermatitis 04/04/2008 Sulfamethoxazole 08/24/2022 Medications * This document contains information received from the source organization and may not represent a complete record from that organization. albuterol (2.5 MG/3ML) 0.083% nebulizer solution Inhale [...] MCG/ACT inhalerIndicat ions:Pulmonary emphysema, unspecified emphysema type Inhale 1 puff in the morning and at bedtime. Rinse mouth with water after use to reduce aftertaste and incidence of candidiasis. Do not swallow. 12 g 11 02/23/20 24 Active cholecalcifero l (Vitamin D-3) 25 MCG (1000 UT) tablet Take 1 tablet by mouth Once per day. Active naloxone (Narcan) 4 mg/0.1 mL nasal sprayIndicatio ns:Chronic pain syndrome Administer 1 spray (4 mg) into affected nostril(s) if needed for opioid reversal. 2 each 2 06/28/20 24 Active metoprolol succinate XL (Toprol-XL) 25 MG 24 hr tablet Take 1 tablet (25 mg) by mouth Once per day. 90 tablet 04/04/20 25 Active ALPRAZolam (Xanax) 0.5 MG tabletIndicati ons:Chronic pain syndrome Take 1 tablet (0.5 mg) by mouth every 8 (eight) hours for 28 days. Do not start before June 12, 2025. 84 tablet 06/12/20 25 025 Active oxyCODONE-acet aminophen (Percocet) 10-325 MG tabletIndicati ons:Chronic pain syndrome Take 1 tablet by mouth every 6 (six) hours if needed for severe pain for up to 28 days. TAKE 1 TABLET BY MOUTH EVERY 6 HOURS IF NEEDED FOR SEVERE PAIN Do not start before June 12, 2025. 112 tablet 06/12/20 025 Active albuterol 108 (90 Base) MCG/ACT inhaler INHALE 2 PUFFS BY MOUTH EVERY 4 HOURS IF NEEDED 25.5 g 06/16/20 25 Active ferrous gluconate (Fergon) 324 (38 Fe) MG tabletIndicati ons:Iron deficiency anemia, unspecified iron deficiency anemia type Take 1 tablet (324 mg) by mouth every other day. 15 tablet 06/17/20 25 026 Active ondansetron (Zofran) 4 MG tabletIndicati ons:Chronic anemia TAKE 1 TABLET BY MOUTH EVERY 8 HOURS 20 tablet 06/17/20 25 Active pantoprazole (ProtoNix) 40 MG EC tablet Take 1 tablet by mouth before breakfast. 06/18/20 24 025 Discontinued(Th erapy completed) ferrous gluconate (Fergon) 324 (38 Fe) MG tabletIndicati ons:Iron deficiency anemia, unspecified iron deficiency anemia type Take 1 tablet (324 mg) by mouth with breakfast. 30 tablet 01/18/20 25 025 Discontinued(Re order (will not trigger notification to Pharmacy)) albuterol 108 (90 Base) MCG/ACT inhaler INHALE 2 PUFFS BY MOUTH EVERY 4 HOURS IF NEEDED 36 g 04/04/20 25 025 Discontinued DULoxetine (Cymbalta) [address] capsuleIndicat ions:Chronic pain syndrome Take 1 capsule (30 mg) by mouth 2 times daily. Do not crush or chew. 60 capsule 11 04/04/20 025 Discontinued(Th erapy completed) oxyCODONE-acet aminophen (Percocet) 10-325 MG tabletIndicati ons:Chronic pain syndrome Take 1 tablet by mouth every 6 (six) hours if needed for severe pain for up to 28 days. TAKE 1 TABLET BY MOUTH EVERY 6 HOURS IF NEEDED FOR SEVERE PAIN 112 tablet 05/06/20 025 Discontinued(Re order (will not trigger notification to Pharmacy)) ondansetron (Zofran) 4 MG tabletIndicati ons:Chronic pain syndrome TAKE 1 TABLET BY MOUTH EVERY 8 HOURS 20 tablet 05/06/20 025 Discontinued(Re order (will not trigger notification to Pharmacy)) morphine CR (MS Contin) 15 MG 12 hr tabletIndicati ons:Chronic pain syndrome Take 1 tablet (15 mg) by mouth 2 times daily for 28 days. Do not crush, chew, or split. 56 tablet 05/06/20 025 ALPRAZolam (Xanax) 0.5 MG tabletIndicati ons:Chronic pain syndrome TAKE 1 TABLET BY MOUTH EVERY 8 HOURS 84 tablet 05/13/20 025 Discontinued(Re order (will not trigger notification to Pharmacy)) ALPRAZolam (Xanax) 0.5 MG tabletIndicati ons:Chronic pain syndrome Take 1 tablet (0.5 mg) by mouth every 8 (eight) hours for 7 days. 21 tablet 06/04/20 025 Discontinued(Re order (will not trigger notification to Pharmacy)) oxyCODONE-acet aminophen (Percocet) 10-325 MG tabletIndicati ons:Chronic pain syndrome Take 1 tablet by mouth every 6 (six) hours if needed for severe pain for up to 7 days. 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 [facility]iac [facility] [place] [facility] 2021 and she did NOT have significant [...] an evaluation. Since she lives closer to [place] more than likely I will follow-up with [...] 09/05/2023 09/05/2023 Ischemic cardiomyopathy 09/05/2023 09/05/2023 1205/2023 SOB (shortness of breath) 09/05/2023 09/05/2023 Peptic ulcer disease 03/01/2023 023 Mild asthma 10/20/2015 03/28/2023 Thrombocytopenia 05/20/2008 04/04/2025 Overview (03/28/2023): Abdominal ultrasound negative for splenomegaly or liver disease [place] [id number] Likely ITP, follows at [facility] hematology Heartburn 04/04/2008 03/28/2023 Overview (03/01/2023): H/O PUD Encounters * This document contains information received from the source organization and may not represent a complete record from that organization. Date Type Department Care Team Description 06/20/2025 Patient Outreach [facility] [place] [address] Joseph Magana MD Medicare Annual Wellness Visit Initial (AWV unscheduled) 06/20/2025 Orders Only [facility] [place] [address] Joseph Magana MD Chronic anemia; History of GI bleed 06/18/2025 Telephone [facility] [place] [address] Kaitlynn Landrum RN Patient would like call 06/17/2025 1:15 PM EDT Office Visit [facility] [place] [address] Joseph Magana MD Chronic anemia (Primary Dx); Iron deficiency anemia, unspecified iron deficiency anemia type; History of GI bleed; Rectal bleeding; Encounter for immunization 06/17/2025 Travel 06/13/2025 Refill [facility] [place] [address] Joseph Magana MD 06/10/2025 Travel 06/04/2025 11:30 AM EDT Telemedicine [facility] [place] [address] Kaitlynn Landrum, [place] residential (current) use of opiate analgesic; Long-term current use of benzodiazepine 06/04/2025 Refill [facility] [place] [address] Kaitlynn Landrum, language assistant pain syndrome; Chronic pain syndrome 06/04/2025 Refill [facility] [place] [address] Kaitlynn Landrum, [place] 06/04/2025 Refill [facility] [place] [address] Kaitlynn Landrum, [place] 06/04/2025 Refill [facility] [place] [address] Kaitlynn Landrum, language assistant pain syndrome; Chronic pain syndrome 06/04/2025 Travel 06/03/2025 Telephone [facility] [place] [phone] Ara Cantor, [place] 05/30/2025 Results Follow-Up [facility] [facility] [place] [address] Joseph Magana MD OBSX1, Complete Blood Count Manual Diff, Prothrombin Time-INR, Additional followed-up results: 4 05/30/2025 Orders Only GENERIC EXTERNAL DATA DEPARTMENT Provider, Generic External Data 05/28/2025 Telephone [facility] [address] Joseph Magana MD call back request 05/28/[address] [address] Kaitlynn Landrum, [place] Reschedule [employer] Tele appt 05/23/[address] [address] Kaitlynn Landrum, RN [facility] [employer] Renewal appt today 05/18/2025 Orders Only [facility] External Provider, [facility] 05/16/[address] [phone] Irena Pacheco, [place] 05/13/[address] [address] Joseph Magana MD 05/12/[address] [phone] Joseph Magana MD Chronic pain syndrome 05/07/2025 2:00 PM EDT Telemedicine [address] [phone] Joseph Magana MD Atypical pneumonia (Primary Dx); Hypoxia 05/07/2025 Travel 05/06/[address] [phone] Joseph Magana MD Chronic pain syndrome; Chronic pain syndrome 05/06/[address] [phone] Yojana Cole [place] CHARTPREP 04/28/2025 Results Follow-Up [address] [phone] Joseph Magana MD CTA Chest PE Protocal 04/27/2025 Orders Only GENERIC EXTERNAL DATA DEPARTMENT Provider, Generic External Data 04/26/2025 Orders Only [facility] External Provider, [facility] 04/04/2025 11:00 AM EDT Office Visit [facility] [address] [place] [phone] Joseph Magana MD Chronic pain syndrome (Primary Dx); Gastrointestinal hemorrhage, unspecified gastrointestinal hemorrhage type; Chronic ITP (idiopathic thrombocytopenia) ([facility]) 04/04/2025 Travel 04/03/2025 Telephone [facility] [address] [place] [phone] Joseph Magana MD Chart Prep 03/26/2025 Refill [facility] [address], [place] [phone] Joseph Magana MD Chronic pain syndrome from Last 3 Months Immunizations Immunization Administration Dates Next Due Influenza Whole 07/04/2006 Influenza injectable quadriv alent IIV4 with preservative 08/17/2016 Influenza injectable quadrivalent preservative f ree 10/20/2015 Influenza, IIV3, injectable 06/21/2012, 1 Influenza, trivalent, adjuvanted 06/21/2012,04/2011 Moderna Covid-19 Vaccine 12+ 11/01/2021,10/04/19 22 Pneumococcal Conjugate PCV 20 06/17/2025 Pneumococcal Polysaccharide PPSV23 02/10/2010 Pneumococcal, Unspecified 02/10/2010 TD (adult), 2 Lf tetanus tox oid, preservative free, adsorbed 11/18/2019 Tdap 06/17/2025 Social History Tobacco Use Types Packs/Day Years Used Date Smoking Tobacco: Former Cigarettes Q uit: 2001 Smokeless Tobacco: Never Tobacco Cessation:Counseling Given: Not [...] Sign Reading Time Taken Comments Blood Pressure 132/64 06/17/2025 1:40 PM EDT Pulse 94 06/17/2025 1:40 PM EDT Temperature 36.9 C (98.4 F) 06/17/2025 1:40 PM EDT Respiratory Rate 14 04/04/2025 11:01 AM EDT Oxygen Saturation 95% 06/17/2025 1:40 PM EDT Inhaled Oxygen Concentration - - Weight 77.1 kg (170 lb) 04/04/2025 11:01 AM EDT Height 160 cm (5' 3 ) 04/04/2025 11:01 AM EDT Body Mass Index 30.11 04/04/2025 11:01 AM EDT Plan of Treatment Upcoming Encounters Date Type Department Care Team (Late st Contact Info) Description 08/29/2025 9:30 AM EST Telemedicine [facility] [address] [place] [phone] Kaitlynn Landrum RN 09/17/2025 11:15 AM EST Office Visit [address] [address] Name, [place] [address] Health Maintenance Due Date Last Done Comments Zoster Vaccines (1 of 2) 1994 RSV Patients and Patients Aged 60 years or older (1 - 1-dose 75+ series) 11/18/2019 SDOH Screening 03/27/2024 03/27/2023 COVID-19 Vaccine ( season) 2025 11/01/2021, 10/04/2021 Influenza Vaccine (#1) 2025 6, 10/20/2015, 06/21/2012, Additional history exists Alcohol/Substance Use Screening 04/04/2026 04/04/2025 Depression Screening 04/04/2026 04/04/2025, 04/04/20 25 Tobacco Screening 04/04/2026 04/04/2025 DTaP/Tdap/Td Vaccines (2 - Td or Tdap) 06/17/2035 06/17/2025, 11/18/2019 Pneumococcal Vaccine: 50+ Years Completed 06/17/2025, 02/10/2010, 02/10/2010 HIB Vaccines Aged Out No longer eligi [...] Procedure Name Priority Date/Time Associated Diagnosis Comments POCT HEMOGLOBIN Routine 06/17/2025 1:53 PM EDT Chronic anemia History of GI bleed Rectal bleeding HIGH SENSITIVITY TROPONIN I Routine 05/30/2025 3:[address] ABD/PELVIS W/O + W/ IV CONTRAST Routine 05/30/2025 2:15 PM EDT TYPE AND SCREEN Routine 05/30/2025 11:51 AM EDT LIPASE Routine [...] from Last 3 Months Results * (ABNORMAL) POCT Hemoglobin (06/17/2025 1:53 PM EDT) Pathologist [facility] Hemoglobin 8.7(A) 12.0 - 15.0 QC Media Lot # [id number] Lot# Expiration Date Blood 06/17/2025 1:53 PM EDT us Joseph Magana MD POINT OF CARE TEST ENTER/EDIT OR DERABLES Final Result * High Sensitivity Troponin I (05/30/2025 3:37 PM EDT) Pathologist [facility] TROPONIN I HIGH SENSITIVITY 12.9 <3.5 - 17.0 ng/L [facility] Comment:The [place] high sens itivity Troponin-I results should beused in conjunction with other diagnostic information suchas ECG, clinical observations and information, and patientsymptoms to aid in the diagnosis of DC. 05/30/2025 3:37 PM EDT 05/30/2025 3:40 PM EDT us Generic External Data Provider LAB BLOOD ORDERAB LES Final Result [facility] [address] [place] [phone] * CT ABD/PELVIS W/O + W/ IV CONTRAST (05/30/2025 2:15 PM EDT) Anatomical Region Laterality Modality Body, Pelvis, Abdomen Computed T omography 05/30/2025 2:15 PM EDT Narrative 05/30/2025 3:32 PM EDT [place] [address] CT Scan Report Signed Patient: Susan Chan MR#: [id number] 7 : 1945 Acct:[id number] Age/Sex: 79 / F ADM Date: 05/30/25 Loc: HO.ED Attending Dr: Ordering Physician: Alfie Gilman Date of Service: 05/30/25 Procedure(s): CT gi bleed abd pel wo/w IVcon Accession Number(s): [id number] cc: Alfie Gilman; Name,Joseph KIM Report Number: [id number]: Total DLP = 1385.00 mGy-cm Reason for Exam: lower abdominal pain. Black stool. EXAMINATION: CT ABDOMEN AND PELVIS WITHOUT AND WITH CONTRAST CLINICAL INFORMATION: Lower abdominal pain, black stools COMPARISON: None available. TECHNIQUE: Multidetector volumetric imaging was performed of the abdomen and pelvis before and after the IV administration of mL of Omnipaque 300 intravenous contrast. Sagittal and coronal reformatted images were obtained on the technologist's workstation. This CT examination was performed using dose optimization techniques as appropriate, variously including the following: *Automated exposure control *Adjustment of mA and/or kV according to patient size (this includes techniques or standardized protocols for targeted exams where dose is matched to indication/reason for exam; i.e. extremities or head) *Use of iterative reconstruction technique DLP: 1385 mGy*cm FINDINGS: LUNG BASES: There is a heterogeneous solid nodular density in the right middle lobe contacting mediastinal/pericardial fat measures 12 x 18 mm (sagittal CT #7 image 22/138). There is mild dependent atelectasis. LIVER, GALLBLADDER, AND BILIARY TREE: The liver is normal in size, shape, and attenuation. No focal hepatic lesion or biliary ductal dilatation is present. There are layering high density stones are present in the dependent portion of the gallbladder. There is no gallbladder wall thickening or biliary ductal dilation. PANCREAS: Unremarkable SPLEEN: Unremarkable ADRENAL GLANDS: 13 mm left adrenal gland nodule is stable since 2020 CT. Right adrenal gland is unremarkable. KIDNEYS AND URETERS: Bilateral parapelvic and simple left renal cysts are present. BLADDER: Unremarkable GASTROINTESTINAL TRACT: No evidence of contrast extravasation or high density luminal content is on post contrast images are evident on this study. Focal high attenuation in the sigmoid colon is probably related to calcification of a pseudodiverticula. The appendix is not clearly visualized. ABDOMINAL WALL: No significant hernia is appreciated. LYMPH NODES: Normal VASCULAR: There is moderate vascular calcification. The left common iliac artery diameter measures up to 20 mm. PELVIC VISCERA: Uterus is surgically absent. OSSEOUS STRUCTURES: Severe multilevel degenerative changes are present in the mid and lower thoracic spine. Additionally, there is grade 1, nearly grade 2 anterolisthesis at L4-5 with severe facet osteoarthritis. There is severe osteoarthritis of the right hip joint with gross deformity of the femoral head and moderate degenerative changes in the left hip. CT/CT gi bleed abd pel wo/w IVcon IMPRESSION: 12 x 18 mm solid nodular density in the right middle lobe contacting mediastinal/pericardial fat. There is incompletely covered on this CT. Review a prior CT chest from June 27, 2021 shows that a similar abnormality has been present since at least then favoring a benign etiology such as rounded atelectasis. No evidence of acute gastrointestinal bleeding 13 mm left adrenal nodule has been stable since 2020 favoring a benign origin. Cholelithiasis. End-stage degenerative changes of the right hip joint. Severe degenerative changes in the mid and lower lumbar spine. Fleischner guidelines were followed. Electronically signed by: Theron Varma MD 05/30/2025 03:29 PM EDT Dictated By: Theron Varma MD Signed By: <Electronically signed by Theron Varma MD in OV> 05/30/25 1529 DD/ 1415 TD/TT: 05/30/25 1458 Police Liaison: Procedure Note Donotuseinterpreter, Image - 05/30/[address] [address] [address] Scan Report Signed Patient: Susan ChanMR#: [id number] 7 : 5Acct:[id number] Age/Sex: 79 / FADM Date: 05/30/25 Loc: HO.ED Attending Dr: Ordering Physician: Alfie Gilman Date of Service: 05/30/25 Procedure(s): CT gi bleed abd pel wo/w IVcon Accession Number(s): [id number] cc: Alfie Gilman; Name,Joseph KIM Report Number: [id number]: Total DLP = 1385.00 mGy-cm Reason for Exam: lower abdominal pain. Black stool. EXAMINATION: CT ABDOMEN AND PELVIS WITHOUT AND WITH CONTRAST CLINICAL INFORMATION: Lower abdominal pain, black stools COMPARISON: None available. TECHNIQUE: Multidetector volumetric imaging was performed of the abdomen and pelvis before and after the IV administration of mL of Omnipaque 300 intravenous contrast. Sagittal and coronal reformatted images were obtained on the technologist's workstation. This CT examination was performed using dose optimization techniques as appropriate, variously including the following: *Automated exposure control *Adjustment of mA and/or kV according to patient size (this includes techniques or standardized protocols for targeted exams where dose is matched to indication/reason for exam; i.e. extremities or head) *Use of iterative reconstruction technique DLP: 1385 mGy*cm FINDINGS: LUNG BASES: There is a heterogeneous solid nodular density in the right middle lobe contacting mediastinal/pericardial fat measures 12 x 18 mm (sagittal CT #7 image 22/138). There is mild dependent atelectasis. LIVER, GALLBLADDER, AND BILIARY TREE: The liver is normal in size, shape, and attenuation. No focal hepatic lesion or biliary ductal dilatation is present. There are layering high density stones are present in the dependent portion of the gallbladder. There is no gallbladder wall thickening or biliary ductal dilation. PANCREAS: Unremarkable SPLEEN: Unremarkable ADRENAL GLANDS: 13 mm left adrenal gland nodule is stable since 2020 CT. Right adrenal gland is unremarkable. KIDNEYS AND URETERS: Bilateral parapelvic and simple left renal cysts are present. BLADDER: Unremarkable GASTROINTESTINAL TRACT: No evidence of contrast extravasation or high density luminal content is on post contrast images are evident on this study. Focal high attenuation in the sigmoid colon is probably related to calcification of a pseudodiverticula. The appendix is not clearly visualized. ABDOMINAL WALL: No significant hernia is appreciated. LYMPH NODES: Normal VASCULAR: There is moderate vascular calcification. The left common iliac artery diameter measures up to 20 mm. PELVIC VISCERA: Uterus is surgically absent. OSSEOUS STRUCTURES: Severe multilevel degenerative changes are present in the mid and lower thoracic spine. Additionally, there is grade 1, nearly grade 2 anterolisthesis at L4-5 with severe facet osteoarthritis. There is severe osteoarthritis of the right hip joint with gross deformity of the femoral head and moderate degenerative changes in the left hip. CT/CT gi bleed abd pel wo/w IVcon IMPRESSION: 12 x 18 mm solid nodular density in the right middle lobe contacting mediastinal/pericardial fat. There is incompletely covered on this CT. Review a prior CT chest from June 27, 2021 shows that a similar abnormality has been present since at least then favoring a benign etiology such as rounded atelectasis. No evidence of acute gastrointestinal bleeding 13 mm left adrenal nodule has been stable since 2020 favoring a benign origin. Cholelithiasis. End-stage degenerative changes of the right hip joint. Severe degenerative changes in the mid and lower lumbar spine. Fleischner guidelines were followed. Electronically signed by: Theron Varma MD 05/30/2025 03:29 PM EDT RP Dictated By: Theron Varma MD Signed By: <Electronically signed by Theron Varma MD in OV> 05/30/25 1529 DD/ 1415 TD/TT: 05/30/25 1458 Police Liaison: [facility] External Provider IMG CT PROCEDURES Final Result * OBSX1 (05/30/2025 11:51 AM EDT) OBS1 POSITIVE NEGATIVE [facility] 05/30/2025 11:5 1 AM EDT 05/30/2025 11:55 AM EDT Generic External Data Provider LAB BLOOD ORDERAB LES Final Result [facility] [address] [place] [phone] * (ABNORMAL) Complete Blood Count Manual Diff (05/30/2025 11:51 AM EDT) White Blood Count 8.0 4.8 - 10.8 X10*3/uL [facility] Red Blood Count 2.80(L) 4.20 - 5.50 X10*6/uL [facility] Hemoglobin 8.5(L) 12.0 - 16.0 g/dl [facility] Hematocrit 26.5(L) 37.0 - 47.0 % [facility] Mean Corpuscular Volume 94.6 80.0 - 98.0 fL [facility] Mean Corpuscular Hemoglobin 30.4 27.0 - 33.0 pg [facility] Mean Corpuscular HGB Conc 32.1 31.0 - 35.0 g/dl [facility] Red Cell Distribution Width 14.4 11.0 - 16.0 % [facility] Platelet Count 77(L) 160 - 400 X10*3/uL [facility] NRBC Pct Auto 0.0 0.0 - 0.2 /100WBC [facility] NRBC Abs Auto 0.000 0.0 - 0.012 X10*3/uL [facility] Neutrophils % Manual 82(H) 45 - 73 % [facility] Band Neutrophils Percent 4 3 - 5 % [facility] Lymphocytes Percent Manual 8(L) 20 - 40 % [facility] Monocytes Percent Manual 4 2 - 11 % [facility] EOSINOPHILS % MANUAL 1 0 - 4 % [facility] BASOPHILS % MANUAL 1 0 - 2 % [facility] NEUTROPHILS ABSOLUTE MANUAL 6.9 2.0 - 8.3 X10*3/uL [facility] LYMPHOCYTES ABSOLUTE MANUAL 0.6(L) 1.2 - 4.9 X10*3/uL [facility] MONOCYTES ABSOLUTE MANUAL 0.3 0.1 - 1.2 X10*3/uL [facility] EOSINOPHILS ABSOLUTE MANUAL 0.1 0.0 - 0.4 X10*3/uL [facility] BASOPHILS ABSOLUTE MANUAL 0.1 0.0 - 0.2 X10*3/uL [facility] Platelet Estimate DECREASED [facility]ORM[facility] Large Platelet PRESENT [facility] Platelet Morphology Comment NOTED [facility] RBC Morphology NOTED [facility] Hypochromasia 1+ (5-14) /OIF [facility] Basophilic Stippling 1+ (0-2) /OIF [facility] Ovalocytes 1+ (5-14) /F [facility] 05/30/2025 11:5 1 AM EDT 05/30/2025 11:55 AM EDT Generic External Data Provider LAB BLOOD ORDERAB LES Final Result Performing Organization Address [facility] Co de Phone Number [facility] [address] [place] [phone] * Partial Thromboplastin Time, Activated (APTT) (05/30/2025 11:51 AM EDT) Partial Thromboplastin Time 29.3 26.7 - 34.1 SEC [facility] 05/30/2025 11:5 1 AM EDT 05/30/2025 11:55 AM EDT Generic External Data Provider LAB BLOOD ORDERAB LES Final Result Performing Organization Address [facility] Co de Phone Number [facility] [address] [place] [phone] * (ABNORMAL) Prothrombin Time-INR (05/30/2025 11:51 AM EDT) Prothrombin Time 14.2(H) 10.9 - 12.4 SEC [facility] INTERNATIONAL NORM RATIO 1.2(H) 0.9 - 1.1 [facility] Comment:INTERNATIONAL NORMAL IZED RATIO (INR) [...] ORDERAB LES Final Result Performing Organization Address City/[facility]/ZIP Co de Phone Number [facility] [address] [place] [address] [phone] * Type and screen (05/30/2025 11:51 AM EDT) Blood Type OP [facility] Antibody Screen NEGATIVE [facility] 05/30/2025 11:5 1 AM EDT 05/30/2025 12:01 PM EDT Generic External Data Provider LAB BLOOD BANK TE ST ORDERABLES Final Result Performing Organization Address [facility] Co de Phone Number [facility] [address] [place] [phone] * Lipase (05/30/2025 11:51 AM EDT) Lipase 10 8 - 78 U/L [facility] 05/30/2025 11:5 1 AM EDT 05/30/2025 11:55 AM EDT Generic External Data Provider LAB BLOOD ORDERAB LES Final Result Performing Organization Address [facility] Co de Phone Number [facility] [address] [place] [address] [phone] * (ABNORMAL) Comprehensive Metabolic Panel (05/30/2025 11:51 AM EDT) Sodium 143 135 - 145 mmol/L [facility] Potassium 4.3 3.3 - 5.1 mmol/L [facility] Chloride 108 96 - 108 mmol/L [facility] Carbon Dioxide 29 22 - 29 mmol/L [facility] Anion Gap 10(L) 12 - 20 [facility] Urea Nitrogen (BUN) 11 9 - 16 mg/dL [facility] Creatinine, Serum 0.59 0.5 - 1.4 mg/dL [facility] Creatinine Clr Calc Pharmacy 72.8 [facility] Comment:Provided height and weight: 160.02 cm,73.028 kg.eGFR (calculated from the MDRD study equation) and eCrCl(calculated from the Cockcroft-Gault equation) are based ondifferent parameters and may not yield comparable results.If eCrCl result is absurd, please check patient'sheight/weight. Estimated Glomerular Filt Rate >60 [facility] Comment:Chronic Kidney Disea se: Estimated GFR < 60 mL/min/1.08u9Wmjufz Kidney Disease: Estimated GFR < 15 mL/min/1.73m2 Glucose 99 60 - 115 mg/dL [facility] Calcium 8.2(L) 8.4 - 10.2 mg/dL [facility] Bilirubin, Total 0.9 0.0 - 1.0 mg/dL [facility] Aspartate Amino Transferase 25 5 - 31 U/L [facility] Alanine Aminotransferase 24 0 - 31 U/L [facility] Total Protein 5.4(L) 6.5 - 8.0 g/dL [facility] Albumin Level 3.8 3.5 - 5.0 g/dL [facility] Alkaline Phosphatase 45 39 - 117 U/L [facility] 05/30/2025 11:5 1 AM EDT 05/30/2025 11:55 AM EDT us Generic External Data Provider LAB BLOOD ORDERAB LES Final Result [facility] [address] [place] [address] [phone] * XR Chest 1 View (05/18/2025 3:16 AM EDT) Only the most recent of2 resultswithin the time period is included. Anatomical Region Laterality Modality Chest Radiographic Ewelina ging 05/18/2025 3:16 AM EDT Narrative 05/18/2025 3:17 AM EDT [address] [address] XRay Report Signed Patient: Susan Chan MR#: [id number] 7 : 1945 Acct:[id number] Age/Sex: 79 / F ADM Date: 05/18/25 Loc: HO.ED Attending Dr: Ordering Physician: Generic ED Physician Date of Service: 05/18/25 Procedure(s): XR chest 1V Accession Number(s): [id number] cc: Generic ED Physician; Name,Joseph KIM CLINICAL [...] in OV> 05/18/25315 DD/ 5 TD/TT: 05/18/25315 Police Liaison: Procedure Note Donotuseinterpreter, Image - 05/18/[address] [address] XRay Report Signed Patient: Susan ChanMR#: [id number] 7 : 5Acct:[id number] Age/Sex: 79 / FADM Date: 05/18/25 Loc: HO.ED Attending Dr: Ordering Physician: Generic ED Physician Date of Service: 05/18/25 Procedure(s): XR chest 1V Accession Number(s): [id number] cc: Generic ED Physician; Name,Joseph KIM CLINICAL [...] in OV> 05/18/25315 DD/ 5 TD/TT: 05/18/25315 Police Liaison: [facility] [employer] [facility] [employer] External Provider IMG XR PROCEDURES Final Result * CTA Chest PE Protocal (04/27/2025 1:21 PM EDT) Anatomical Region Laterality Modality Body, Chest Computed Tomogra phy 04/27/2025 1:21 PM EDT Narrative 04/27/2025 1:22 PM EDT [place] [address] [address] Scan Report Signed Patient: Susan Chan MR#: [id number] 7 : 1945 Acct:[id number] Age/Sex: 79 / F ADM Date: 04/26/25 Loc: HO.ED Attending Dr: Ordering Physician: Han Montaño MD Date of Service: 04/27/25 Procedure(s): CT angio chest PE protocol Accession Number(s): [id number] cc: Han Montaño MD; Name,Joseph KIM Report Number: [id number]: Total DLP = 485.00 mGy-cm CLINICAL HISTORY: [...] 04/27/25 1321 DD/ 1321 TD/TT: 04/27/25 1321 Police Liaison: Procedure Note Donotuseinterpreter, Image - 04/27/[address] [place] [address] [address] Scan Report Signed Patient: Susan ChanMR#: [id number] 7 : 5Acct:[id number] Age/Sex: 79 / FADM Date: 04/26/25 Loc: HO.ED Attending Dr: Ordering Physician: Han Montaño MD Date of Service: 04/27/25 Procedure(s): CT angio chest PE protocol Accession Number(s): [id number] cc: Han Montaño MD; Name,Joseph KIM Report Number: [id number]: Total DLP = 485.00 mGy-cm CLINICAL HISTORY: [...] 04/27/25 1321 DD/ 1321 TD/TT: 04/27/25 1321 Police Liaison: [facility] [facility] [employer] External Provider IMG CT PROCEDURES Edited Result - Final * (ABNORMAL) VENOUS BLOOD GAS (04/27/2025 11:27 AM EDT) VBG pH 7.32 7.32 - 7.43 [facility] Comment:METER #: [id number] additional_comment: Te hernandez VBG PCO2 69 mmHg [facility] Comment:METER #: [id number] additional_comment: Te ANNEG PO2 36 mmHg [facility] Comment:METER #: [id number] additional_comment: Te hernandez VBG Base Excess 7.8 mmol/L [facility] Comment:METER #: [id number] additional_comment: Te ANNEG HCO3 36(H) 22 - 26 mmol/L [facility] Comment:METER #: [id number] additional_comment: Te hernandez O2 Sat, Huang 46.0 % [facility] Comment:METER #: [id number] additional_comment: Te hernandez 04/27/2025 11:2 7 AM EDT 04/27/2025 11:31 AM EDT us Generic External Data Provider LAB BLOOD ORDERAB LES Final Result Performing Organization Address [facility] Co de Phone Number [facility] [address] [place] [phone] * (ABNORMAL) Urinalysis, Complete, with Reflex to Culture (04/27/2025 1:53 AM EDT) Color Urine Yellow [facility] Appearance Urine Clear [facility] PH 6.5 5.0 - 9.0 [facility] Glucose Urine UA Negative Negative mg/dL [facility] Urine Blood Small (1+)(A) Negative [facility] Specific [place] - Urine 1.025 1.005 - 1.025 [facility] Urine Protein Trace Neg-Trace mg/dL [facility] Urine Ketones Negative Negative mg/dL [facility] Nitrite Urine Negative Negative [facility] Leukocyte Esterase Urine Negative Negative [facility] RBC Urine 11-20(A) 0 - 2 /HPF [facility] Urine WBC 0-5 0 - 5 /HPF [facility] Urine Squamous Epithelial Cell 0-2 0 - 2 /HPF [facility] Urine Bacteria None Seen None Seen [facility] Hyaline Casts, Urine 0-2 0 - 2 /LPF [facility] 04/27/2025 1:53 AM EDT 04/27/2025 1:57 AM EDT Narrative [facility] - 04/27/2025 2:27 AM EDT [id number], Catheterized Generic External Data Provider LAB URINE ORDERAB LES Final Result Performing Organization Address [facility] Co de Phone Number [facility] [address] [place] [phone] * (ABNORMAL) Drug Monitoring, Panel 1, Screen, Urine (04/27/2025 1:53 AM EDT) Opiate Screen Urine POSITIVE(A) Not Detect [facility] Comment:Opiate cut-off is 30 0 ng/mL.Positive results are unconfirmed and should not be used fornon-medical purposes. Barbiturates, Urine Not Detected Not Detect [facility] Comment:Barbiturate cut-off is 200 ng/mL.Positive results are unconfirmed and should not be used fornon-medical purposes. Phencyclidine Screen Urine Not Detected Not Detect [facility] Comment:Phencyclidine cut-of f is 25 ng/mL.Positive results are unconfirmed and should not be used fornon-medical purposes. Amphetamine Screen Urine Not Detected Not Detect [facility] Comment:Amphetamine cut-off is 1000 ng/mL.Positive results are unconfirmed and should not be used fornon-medical purposes. Benzodiazepines Screen Urine Not Detected Not Detect [facility] Comment:Benzodiazepine cut-o ff is 200 ng/mL.Positive results are unconfirmed and should not be used fornon-medical purposes. Cocaine Screen Urine Not Detected Not Detect [facility] Comment:Cocaine cut-off is 3 00 ng/mL.Positive results are unconfirmed and should not be used fornon-medical purposes. Cannabinoid Screen Urine Not Detected Not Detect [facility] Comment:Cannabinoid cut-off is 50 ng/mL.Positive results are unconfirmed and should not be used fornon-medical purposes. Methadone Screen, Urine Not Detected Not Detect ng/mL [facility] Comment:Methadone cut-off is 300 ng/mL.Positive results are unconfirmed and should not be used fornon-medical purposes. FENTANYL URINE Not Detected Not Detect [facility] Comment:Fentanyl cut-off is 1 ng/mL.Positive results are unconfirmed and should not be used fornon-medical purposes. Oxycodone Urine Screen Positive(A) Not Detect ng/mL [facility] Comment:Oxycodone cut-off is 100 ng/mL.Positive results are unconfirmed and should not be used fornon-medical purposes. Buprenorphine Screen Not Detected Not Detect ng/mL [facility] Comment:Buprenorphine cut-of f is 5 ng/mL.Positive results are unconfirmed and should not be used fornon-medical purposes. 04/27/2025 1:53 AM EDT 04/27/2025 1:58 AM EDT us Generic External Data Provider LAB URINE ORDERAB LES Final Result [facility] [address] [place] [phone] * CT Head w/o Contrast (04/26/2025 11:22 PM EDT) Anatomical Region Laterality Modality Head, Neck Computed Tomogra phy 04/26/2025 11:2 2 PM EDT Narrative 04/26/2025 11:24 PM EDT [place] [address] [address] Scan Report Signed Patient: Susan Chan MR#: [id number] 7 : 1945 Acct:[id number] Age/Sex: 79 / F ADM Date: 04/26/25 Loc: HO.ED Attending Dr: Ordering Physician: Anne Aldridge MD Date of Service: 04/26/25 Procedure(s): CT head/brain wo IV con Accession Number(s): [id number] cc: Joseph Magana MD; Anne Aldridge MD Report Number: [id number]: Total DLP = 1265.00 mGy-cm CLINICAL HISTORY: [...] in OV> 04/26/252322 DD/ 21 TD/TT: 04/26/252321 Police Liaison: Procedure Note Donotuseinterpreter, Image - 04/26/[address] [address] [address] Scan Report Signed Patient: Susan ChanMR#: [id number] 7 : 5Acct:[id number] Age/Sex: 79 / FADM Date: 04/26/25 Loc: HO.ED Attending Dr: Ordering Physician: Anne Aldridge MD Date of Service: 04/26/25 Procedure(s): CT head/brain wo IV con Accession Number(s): [id number] cc: Name,Joseph KIM; Anne Aldridge MD Report Number: [id number]: Total DLP = 1265.00 mGy-cm CLINICAL HISTORY: [...] in OV> 04/26/252322 DD/ 21 TD/TT: 04/26/252321 Police Liaison: [facility] [facility] [employer] External Provider IMG CT PROCEDURES Edited Result - Final * CT Cervical Spine w/o Contrast (04/26/2025 11:21 PM EDT) Anatomical Region Laterality Modality Spine, C-spine Computed Tomogra phy 04/26/2025 11:2 1 PM EDT Narrative 04/26/2025 11:23 PM EDT [address] [address] [address] Scan Report Signed Patient: Susan Chan MR#: [id number] 7 : 1945 Acct:[id number] Age/Sex: 79 / F ADM Date: 04/26/25 Loc: HO.ED Attending Dr: Ordering Physician: Anne Aldridge MD Date of Service: 04/26/25 Procedure(s): CT cervical spine wo IV con Accession Number(s): [id number] cc: Joseph Magana MD; Anne Aldridge MD Report Number: [id number]: Total DLP = 283.00 mGy-cm CLINICAL HISTORY: [...] in OV> 04/26/252321 DD/ 20 TD/TT: 04/26/252320 Police Liaison: Procedure Note Donotuseinterpreter, Image - 04/26/[address] [place] [address] [address] Scan Report Signed Patient: Susan ChanMR#: [id number] 7 : 5Acct:[id number] Age/Sex: 79 / FADM Date: 04/26/25 Loc: HO.ED Attending Dr: Ordering Physician: Anne Aldridge MD Date of Service: 04/26/25 Procedure(s): CT cervical spine wo IV con Accession Number(s): [id number] cc: Joseph Magana MD; Anne Aldridge MD Report Number: [id number]: Total DLP = 283.00 mGy-cm CLINICAL HISTORY: [...] in OV> 04/26/252321 DD/ 20 TD/TT: 04/26/252320 Police Liaison: us [facility] External Provider IMG CT PROCEDURES Edited Result - Final * XR Knee 1-2 Views Right (04/26/2025 11:07 PM EDT) Anatomical Region Laterality Modality Lower Extremities, Knee Right Radiogra phic Imaging 04/26/2025 11:0 7 PM EDT Narrative 04/26/2025 11:08 PM EDT [address] [address] XRay Report Signed Patient: Susan Chan MR#: [id number] 7 : 1945 Acct:[id number] Age/Sex: 79 / F ADM Date: 04/26/25 Loc: .ED Attending Dr: Ordering Physician: Anne Aldridge MD Date of Service: 04/26/25 Procedure(s): XR knee RT 2V Accession Number(s): [id number] cc: Joseph Magana MD; Anne Aldridge MD [...] in OV> 04/26/252306 DD/ 06 TD/TT: 04/26/252306 Police Liaison: Procedure Note Italiater, Image - 04/26/[address] [address] XRay Report Signed Patient: Susan ChanMR#: [id number] 7 : 5Acct:[id number] Age/Sex: 79 / FADM Date: 04/26/25 Loc: HO.ED Attending Dr: Ordering Physician: Anne Aldridge MD Date of Service: 04/26/25 Procedure(s): XR knee RT 2V Accession Number(s): [id number] cc: Izzy,Joseph KIM; Anne Aldridge MD CLINICAL HISTORY: fall, [...] in OV> 04/26/252306 DD/ 06 TD/TT: 04/26/252306 Police Liaison: [facility] [employer] External Provider IMG XR PROCEDURES Edited Result - Final * XR Elbow 1-2 Views Left (04/26/2025 11:05 PM EDT) Anatomical Region Laterality Modality Upper Extremities, Elbow Left Radiogr aphic Imaging 04/26/2025 11:0 5 PM EDT Narrative 04/26/2025 11:07 PM EDT [place] [address] XRay Report Signed Patient: Susan Chan MR#: [id number] 7 : 1945 Acct:[id number] Age/Sex: 79 / F ADM Date: 04/26/25 Loc: HO.ED Attending Dr: Ordering Physician: Anne Aldridge MD Date of Service: 04/26/25 Procedure(s): XR elbow LT 2V Accession Number(s): [id number] cc: Izzy,Joseph KIM; Anne Aldridge MD CLINICAL HISTORY: fall, [...] in OV> 04/26/252305 DD/ 04 TD/TT: 04/26/252304 Police Liaison: Procedure Note Donotgeriinterpreter, Image - 04/26/2025 [place] [address] XRay Report Signed Patient: Susan ChanMR#: [id number] 7 : 5Acct:[id number] Age/Sex: 79 / FADM Date: 04/26/25 Loc: .ED Attending Dr: Ordering Physician: Anne Aldridge MD Date of Service: 04/26/25 Procedure(s): XR elbow LT 2V Accession Number(s): [id number] cc: Joseph Magana MD; Anne Aldridge MD [...] in OV> 04/26/252305 DD/ 04 TD/TT: 04/26/252304 Police Liaison: [facility] [employer] External Provider IMG XR PROCEDURES Edited Result - Final from Last 3 Mon[address] Insurance [place] [id number] [employer] Care Teams High [employer] Music Director Relationship Specialty Start Date End Date Name, MD Joseph [address] [place] [phone] PCP - General Family Medicine 01/21/22
--- OUTSIDE RECORDS SUMMARY | 2025-06-26 21:44 | XMS_ITS | Encounter Summary ---
Author Organization [employer] Address [address] [facility] 7t [place] [address] Care Team Providers Care Leather Craftsman Name Role Phone Name, Joseph KIM Primary Care Provider [phone] Reason for Visit * Reason Onset Date Comments Triage 12/28/2022 Encounter Details Date Type Department Care Team ([facility] st Contact Info) Description 12/28/2022 Telephone [facility] [address] [place], [place] [phone] Name, MD Joseph [address] [place] [address] Triage Social History Tobacco Use Types Packs/Day [...] accepted this outcome Please contact pt at [phone] documented in this encounter Plan of Treatment Upcoming Encounters Date Type Department Care Team (Late st Contact Info) Description 08/29/2025 9:30 AM EST Telemedicine [facility] [address] [place] [phone] Kaitlynn Landrum RN 09/17/2025 11:15 AM EST Office Visit [facility] [address] [place] [phone] Name, MD Joseph [address] [place] [address] documented as of this encounter Visit Diagnoses Not on filedocumented in this encounter Additional Health Concerns Assessment Noted Time PHQ-9 Depression Total Score: 4 09/22/19 23 11:14 AM EST documented as of this encounter Care Teams Leather Craftsman Relationship Specialty Start Date End Date Name, MD Joseph [address] [place] [address] PCP - General Family Medicine 01/21/22 documented as of this encounter
--- OUTSIDE RECORDS SUMMARY | 2025-06-26 21:44 | XMS_ITS | Encounter Summary ---
Author Organization [employer] Address [address] [facility] 7t [place] [address] Care Team Providers Care Gerentological Physiotherapist Name Role Phone Name, Joseph KIM Primary Care Provider [phone] Encounter Details Date Type Department Care Team (Late st Contact Info) Description 09/06/2024 Orders Only [facility] [address] [place], [place] [phone] Name, MD Joseph [address] [place], [place] [phone] Iron deficiency anemia, unspecified iron deficiency anemia [...] Info) Description 08/29/2025 9:30 AM EST Telemedicine [facility] [address] [place] [phone] Kaitlynn Landrum RN 09/17/2025 11:15 AM EST Office Visit [address] [address] Name, MD Joseph [address] [place] [address] documented as of this encounter Visit Diagnoses Diagnosis Iron deficiency anemia, unspecified iron deficiency anemia type documented in this encounter Additional Health Concerns Assessment Noted Time PHQ-9 Depression Total Score: 0 01/30/20 24 11:07 AM EDT documented as of this encounter Care Teams Gerentological Physiotherapist Relationship Specialty Start Date End Date Name, MD Joseph [address] [place] [phone] PCP - General Family Medicine 01/21/22 documented as of this encounter
--- OUTSIDE RECORDS SUMMARY | 2025-06-26 21:44 | XMS_ITS | Encounter Summary ---
Author Organization [employer] Address [address] [facility] 7t [place] [address] Care Team Providers Care Citizenship Teacher Name Role Phone Name, Joseph KIM Primary Care Provider [phone] Reason for Visit * Reason Onset Date Comments Nurse Triage 09/17/2024 Encounter Details Date Type Department Care Team ([facility] st Contact Info) Description 09/17/2024 Telephone [facility] [address] [place], [place] [phone] Name, MD Joseph [address] [place] [address] Nurse Triage Social History Tobacco Use Types [...] No answer LVM to return call to [facility] triage line [phone]. * Telephone Encounter - Salvador Diamond - 09/17/2024 12:36 PM EST Symptom: High Blood Pressure - Caller Reports Outcome: Transfer to a nurse or provider NOW! Reason: Trouble breathing The caller accepted this outcome. documented in this encounter Plan of Treatment Upcoming Encounters Date Type Department Care Team (Late st Contact Info) Description 08/29/2025 9:30 AM EST Telemedicine [facility] [address] [place] [phone] Kaitlynn Landrum RN 09/17/2025 11:15 AM EST Office Visit [facility] [address] [place] [phone] NameJoseph MD [address] [place] [address] documented as of this encounter Visit Diagnoses Not on filedocumented in this encounter Additional Health Concerns Assessment Noted Time PHQ-9 Depression Total Score: 0 01/30/20 24 11:07 AM EDT documented as of this encounter Care Teams Citizenship Teacher Relationship Specialty Start Date End Date Joseph Magana MD [address] [place] [phone] PCP - General Family Medicine 01/21/22 documented as of this encounter
--- OUTSIDE RECORDS SUMMARY | 2025-06-26 21:44 | XMS_ITS | Encounter Summary ---
Author Organization [employer] Address [address] [facility] 7t [place] [address] Care Team Providers Care Calf Skinner Name Role Phone Name, Joseph KIM Primary Care Provider [phone] Encounter Details Date Type Department Care Team (Late st Contact Info) Description 06/28/2024 Orders Only [facility] [address] [place], [place] [phone] Name, MD Joseph [address] [place], [place] [phone] Iron deficiency anemia, unspecified iron deficiency anemia [...] 08/29/2025 9:30 AM EST Telemedicine [facility] [address] [place] [phone] Kaitlynn Landrum RN 09/17/2025 11:15 AM EST Office Visit [facility] [address] [place] [phone] Name, MD Joseph [address] [place] [address] documented as of this encounter Procedures Procedure [...] lt - Final [facility] [address] [place] [address] [phone] documented in this encounter Visit Diagnoses Diagnosis Iron deficiency anemia, unspecified iron deficiency anemia type documented in this encounter Additional Health Concerns Assessment Noted Time PHQ-9 Depression Total Score: 0 01/30/20 24 11:07 AM EDT documented as of this encounter Care Teams Calf Skinner Relationship Specialty Start Date End Date Name, MD Joseph [address] [place] [address] PCP - General Family Medicine 01/21/22 documented as of this encounter
--- OUTSIDE RECORDS SUMMARY | 2025-06-26 21:44 | XMS_ITS | Encounter Summary ---
Author Organization [employer] Address [address] [facility] 7t [place] [address] Care Team Providers Care Steel Worker Name Role Phone Name, Joseph KIM Primary Care Provider [phone] Encounter Details Date Type Department Care Team (Late st Contact Info) Description 07/26/2024 Orders Only [facility] [address] [place], [place] [phone] Name, MD Joseph [address] [place], [place] [phone] Iron deficiency anemia, unspecified iron deficiency anemia [...] Description 08/29/2025 9:30 AM EST Telemedicine [facility] [address] [place] [phone] Kaitlynn Landrum RN 09/17/2025 11:15 AM EST Office Visit [address] [address] Name, MD Joseph [address] [place] [address] documented as of this encounter Visit Diagnoses Diagnosis Iron deficiency anemia, unspecified iron deficiency anemia type documented in this encounter Additional Health Concerns Assessment Noted Time PHQ-9 Depression Total Score: 0 01/30/20 24 11:07 AM EDT documented as of this encounter Care Teams Steel Worker Relationship Specialty Start Date End Date Name, MD Joseph [address] [place] [phone] PCP - General Family Medicine 01/21/22 documented as of this encounter
--- OUTSIDE RECORDS SUMMARY | 2025-06-26 21:44 | XMS_ITS | Encounter Summary ---
Author Organization [employer] Address [address] [facility] [address]t [place] [address] Care Team Providers Care Public Policy Manager Name Role Phone Name, Joseph KIM Primary Care Provider [phone] Encounter Details Date Type Department Care Team (Late st Contact Info) Description 08/02/2024 Orders Only [facility] [address] [place], [place] [phone] Name, MD Joseph [address] [place], [place] [phone] Iron deficiency anemia, unspecified iron deficiency anemia [...] Info) Description 08/29/2025 9:30 AM EST Telemedicine [facility] [address] [place] [phone] Kaitlynn Landrum RN 09/17/2025 11:15 AM EST Office Visit [address] [address] Name, MD Joseph [address] [place] [phone] documented as of this encounter Visit Diagnoses Diagnosis Iron deficiency anemia, unspecified iron deficiency anemia type documented in this encounter Additional Health Concerns Assessment Noted Time PHQ-9 Depression Total Score: 0 01/30/20 24 11:07 AM EDT documented as of this encounter Care Teams Public Policy Manager Relationship Specialty Start Date End Date Name, MD Joseph [address] [place] [phone] PCP - General Family Medicine 01/21/22 documented as of this encounter
--- OUTSIDE RECORDS SUMMARY | 2025-06-26 21:44 | XMS_ITS | Encounter Summary ---
Author Organization [employer] Address [address] [facility] 7t [place] [address] Care Team Providers Care Blindstitch Lapel Padder Name Role Phone Name, Joseph KIM Primary Care Provider [phone] Encounter Details Date Type Department Care Team (Late st Contact Info) Description 07/05/2024 Orders Only [facility] [address] [place], [place] [phone] Name, MD Joseph [address] [place], [place] [phone] Iron deficiency anemia, unspecified iron deficiency anemia [...] 08/29/2025 9:30 AM EST Telemedicine [facility] [address] [place] [id number] Kaitlynn Landrum RN 09/17/2025 11:15 AM EST Office Visit [address] [address] Name, MD Joseph [address] [place] [phone] documented as of this encounter Visit Diagnoses Diagnosis Iron deficiency anemia, unspecified iron deficiency anemia type documented in this encounter Additional Health Concerns Assessment Noted Time PHQ-9 Depression Total Score: 0 01/30/20 24 11:07 AM EDT documented as of this encounter Care Teams Blindstitch Lapel Padder Relationship Specialty Start Date End Date Name, MD Joseph [address] [place] [phone] PCP - General Family Medicine 01/21/22 documented as of this encounter
[2025-06-26 22:12] LABS: D Dimer High Sensitivity < 150 NG/ML
[2025-06-26 22:24] VITALS: BP 151/75; PULSE 103; RESP 21; TEMP 36.8; O2SAT 91
[2025-06-26 22:31] LABS: Appearance Urine Clear; Glucose Urine UA Negative (Negative); PH 6.5 (5.0-9.0); Specific Gravity - Urine 1.020 (1.005-1.025); UMIC TRIGGER UACC YES
--- NOTE | 2025-06-26 22:31 | PC.NURSE ---
Called lab d/t UA/PATEL pending x 1 hour, tech states sample is currently running should be resulted in 15 minutes
[2025-06-26 22:42] LABS: Cannabinoid Screen Urine Not Detected (Not Detect)
[2025-06-27] VITALS (12 sets, daily range): BP systolic 127–167; BP diastolic 52–76; PULSE 60–100; RESP 13–20; TEMP 36.7–37.1; O2SAT 92–100; BMI 31.2
--- NOTE | 2025-06-27 01:41 | ED.GENADULT ---
HPI - General Adult General Chief complaint: Altered Mental Status Stated complaint: pain rt leg, hip pain Time Seen by Provider: 06/26/25 20:09 Source: patient and EMS Limitations: other (ams) History of Present Illness ED Provider: Laisha Loco PA-C HPI narrative: 79-year-old female with a history of COPD/emphysema, chronic pain on opiate therapy, anxiety on xanax, hypertension who presents from home with altered mental status. Patient lives with a roommate, the roommate called for assistance to the home secondary to the patient developing altered mental status. The patient had fallen in april, has been complaining of ongoing right leg pain. The roommate states that the patient has had rambling speech, often falling asleep while speaking with her, but easily arousable to verbal stimulation. The patient readily admits that she ?took all her pain meds, but my knee still hurts?. The roommate reported that she felt as if the patient was hallucinating. Related Data Home Medications ?Medication ?Instructions ?Recorded ?Confirmed alprazolam 0.5 mg tablet 1 tab PO TID PRN Anxiety 12/07/20 05/30/25 cholecalciferol (vitamin D3) 25 1,000 unit PO DAILY 02/07/21 05/30/25 mcg (1,000 unit) capsule (Vitamin D3) albuterol sulfate 2.5 mg/3 mL 2.5 mg inhalation Q6H PRN Wheezing 01/27/22 05/30/25 (0.083 %) solution for nebulization cyanocobalamin (vitamin B-12) 1,000 mcg PO DAILY 01/27/22 05/30/25 1,000 mcg tablet vitamin A 2,400 mcg capsule 2,400 mcg PO DAILY 01/27/22 05/30/25 metoprolol succinate 25 mg 25 mg PO DAILY 05/17/22 05/30/25 tablet,extended release 24 hr (Toprol XL) biotin 10,000 mcg chewable tablet 10,000 mcg PO DAILY 12/07/22 05/30/25 (Hair, Skin and Nails (biotin)) ondansetron HCl 4 mg tablet 1 tab PO Q8H PRN Nausea And 12/07/22 05/30/25 Vomiting albuterol sulfate 90 mcg/actuation 2 puff inhalation Q4H PRN Wheezing 06/12/24 05/30/25 aerosol inhaler ferrous sulfate 325 mg (65 mg 325 mg PO DAILY 04/27/25 05/30/25 iron) tablet oxycodone-acetaminophen 10 mg-325 1 tab PO QID PRN Pain 05/30/25 05/30/25 mg tablet Allergies Allergy/AdvReac Type Severity Reaction Status Date / Time amoxicillin Allergy Unknown Hives Verified 06/26/25 19:24 Penicillins (PENICILLINS) Allergy Unknown Hives Verified 06/26/25 19:24 Sulfa (Sulfonamide Allergy Unknown Hives Verified 06/26/25 19:24 Antibiotics) (SULFA (SULFONAMIDE ANTIBIOTICS)) Review of Systems Review of Systems: Unable to obtain secondary to altered mental status Yes all other systems are reviewed and are negative [facility] Past Medical History Attestation statement: The following information was validated with the patient. Medical History Chronic ITP (idiopathic thrombocytopenia) Ischemic cardiomyopathy Ascending aorta dilatation Atherosclerotic cardiovascular disease Non-rheumatic mitral regurgitation Non-rheumatic aortic regurgitation Non-rheumatic aortic stenosis Cardiomyopathy COPD exacerbation Heart failure with reduced ejection fraction Acute on chronic systolic (congestive) heart failure COPD (chronic obstructive pulmonary disease) Thrombocytopenia Osteoarthritis GERD (gastroesophageal reflux disease) Anxiety Asthma Surgical History Hx of colonoscopy Hx of endoscopy Hx of oophorectomy Hx of hysterectomy Hx of total knee replacement Family History Family History Sister Lung cancer Lupus Sister Lung cancer Maternal Aunt Lupus Social History Social History Household Members: Other Household Members Other:: lives alone Housing: Condominium Are you a primary resident care aide to a significant other at home: No Do you presently have visiting nurse or other home services: Yes ([facility]) Alcohol intake: current Alcohol intake frequency: holidays/special occasions only Comment: patient refusing alarms Patient Tobacco Use Status: Former Tobacco user Smoked in Last 30 Days: No Second Hand Smoke Exposure: No Use of substances other than those prescribed or required for medical reasons: No Substance Use Type: Unknown Advance Directives: Yes Advance Directives on File: Yes Advance Directives Date on File: 03/20/23 Do you have a plan to hurt others: No Plan service: No Current occupational status: employed Physical Exam ED Vital Signs: Vital Signs - 24 hr 06/26/25 19:21 06/26/25 20:36 06/26/25 22:24 Temperature 97.7 F 99.4 F 98.3 F Pulse Rate 98 97 103 H Respiratory Rate 20 16 21 H Blood Pressure 144/65 H 138/59 L 151/75 H Pulse Oximetry 91 L 91 L 91 L Oxygen Delivery Method Room Air Room Air Room Air 06/27/25 01:09 06/27/25 04:37 Temperature 98.0 F 98.5 F Pulse Rate 100 75 Respiratory Rate 18 16 Blood Pressure 161/74 H 152/57 H Pulse Oximetry 92 92 Oxygen Delivery Method Room Air Room Air BMI result Body Mass Index 28.7 Const Other: Sleeping sitting up easily woken with verbal stimuli Orientation/consciousness: patient oriented x3 Resp Other: Nonlabored respirations, lungs clear although poor inspiratory effort Cardio Other: Normal peripheral perfusion Skin Other: Warm dry no rash Neuro General: patient oriented x3, no focal motor deficits and CN's II-XI intact bilaterally Psych Other: Patient will ramble on about random topics, she keeps stating ?what you think I am a drug addict?. 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 Adequate blood return flushes well secured with Tegaderm Medical Decision Making Medical Decision Making MDM Narrative: 79-year-old female with a history of COPD/emphysema, chronic pain on opiate therapy, anxiety on xanax, hypertension who presents from home with altered mental status. Patient lives with a roommate, the roommate called for assistance to the home secondary to the patient developing altered mental status. The patient had fallen in april, has been complaining of ongoing right leg pain. The roommate states that the patient has had rambling speech, often falling asleep while speaking with her, but easily arousable to verbal stimulation. The patient readily admits that she ?took all her pain meds, but my knee still hurts?. The roommate reported that she felt as if the patient was hallucinating. Per EMS, the roommate also expressed concern that the patient did not treat her pneumonia, apparently she was recently diagnosed with pneumonia and she throughout her antibiotics. The patient denies. Problem: Polypharmacy, COPD, potential recent pneumonia History: Per EMS and patient which is limited via the patient I have considered the following differential diagnoses: Delirium induced by polypharmacy, alcohol intoxication, brain mass, refractory pneumonia, UTI Plan: The patient's O2 is 92, she has COPD, this is appropriate, her lung exam is overall normal, we will obtain blood cultures, lactic and chest x-ray, adding on a viral panel. I am most concerned for polypharmacy as the cause for her delirium, the patient is alert and oriented without neuro deficits, I think she is confused secondary to the use of opiates and benzodiazepine. Adding on a drug screen. We will also check a UA, she could have a urinary tract infection. The patient keeps complaining of her right leg pain, this is chronic, we did get her up to see if she can use the commode, she can bear weight and pivot and transition from the bed to the commode with the use of a walker. No indication for x-rays. I have independently reviewed the following tests: Labs: No leukocytosis, stable anemia, chronic thrombocytopenia, no electrolyte abnormality, lactic 1.4, troponin 9.7, delta troponin 10.2, urine not infected, U tox positive for opiates oxycodone and benzos, alcohol less than 10 Chest x-ray: CT brain:Age-appropriate atrophy is again identified. The size and shape of the ventricular system is within normal limits for this degree of atrophy. Low-attenuation within the periventricular and deep white matter is unchanged. No new areas of abnormal attenuation are identified within the brain parenchyma. No midline shift or mass effect. No intracranial hemorrhage. No calvarial fractures. IMPRESSION: 1. No acute intracranial findings. Differential Diagnosis Differential Diagnoses: The differential diagnosis associated with the presentation includes See medical decision-making Admission/Observation Consideration of admission/observation: Escalation of care including admission/observation considered Admit Consult Healthcare Provider Management of the patient was discussed with: Hospitalist Lab Data MDM Lab Attestation statement: I reviewed the patient's lab results. 06/26/25 19:49 06/26/25 20:28 Labs: Lab Results 06/26/25 06/26/25 06/26/25 Range/Units 19:49 19:58 20:28 WBC 8.4 (4.8-10.8) X10*3/uL RBC 3.40 L D (4.20-5.50) X10*6/uL Hgb 10.1 L D (12.0-16.0) g/dl Hct 33.4 L D (37.0-47.0) % MCV 98.2 H (80.0-98.0) fL MCH 29.7 (27.0-33.0) pg MCHC 30.2 L (31.0-35.0) g/dl RDW 14.6 (11.0-16.0) % Plt Count 46 L D (160-400) X10*3/uL MPV Not Reportable Immature Gran % (Auto) 0.2 (0.0-0.4) % Neut % (Auto) 81.4 H (45-73) % Lymph % (Auto) 8.1 L (20-40) % [place] % (Auto) 8.9 (2-11) % Eos % (Auto) 0.8 (0-4) % Baso % (Auto) 0.6 (0-2) % Lymph # (Auto) 0.7 L (1.2-4.9) X10*3/uL [place] # (Auto) 0.8 (0.1-1.2) X10*3/uL Eos # (Auto) 0.1 (0.0-0.4) X10*3/uL Baso # (Auto) 0.1 (0.0-0.2) X10*3/uL Abs Immat Gran (auto) 0.02 (0.00-0.03) X10*3/uL Absolute Neuts (auto) 6.8 (2.0-8.3) x10*3/uL Absolute Nucleated RBC 0.000 (0.0-0.012) X10*3/uL Nucleated RBC % (auto) 0.0 (0.0-0.2) /100WBC PT 13.6 H (10.9-12.4) SEC INR 1.2 H (0.9-1.1) D-Dimer High Sensitivty NG/ML VBG pH 7.49 H (7.32-7.43) VBG pCO2 40 mmHg VBG pO2 47 mmHg VBG HCO3 31 H (22-26) mmol/L VBG O2 Saturation 77.0 % VBG Base Excess 7.6 mmol/L Sodium 144 (135-145) mmol/L Potassium 3.9 (3.3-5.1) mmol/L Chloride 107 (96-108) mmol/L Carbon Dioxide 25 (22-29) mmol/L Anion Gap 16 (12-20) BUN 13 (9-16) mg/dL Creatinine 0.62 (0.5-1.4) mg/dL Estim Creat Clear Calc 69.4 Estimated GFR > 60 Random Glucose 91 (60-115) mg/dL Lactic Acid (0.5-2.0) mmol/L Calcium 9.2 D (8.4-10.2) mg/dL Magnesium 1.9 (1.6-2.6) mg/dL Total Bilirubin 0.9 (0.0-1.0) mg/dL AST 29 (5-31) U/L ALT 13 (0-31) U/L Alkaline Phosphatase 58 (39-117) U/L Troponin I High Sens 9.7 (<3.5-17.0) ng/L Total Protein 6.3 L (6.5-8.0) g/dL Albumin 4.4 (3.5-5.0) g/dL Urine Color Urine Appearance Urine pH (5.0-9.0) Ur Specific [place] (1.005-1.025) Urine Protein (Neg-Trace) mg/dL Urine Glucose (UA) (Negative) mg/dL Urine Ketones (Negative) mg/dL Urine Blood (Negative) Urine Nitrite (Negative) Ur Leukocyte Esterase (Negative) Urine RBC (0-2) /HPF Urine WBC (0-5) /HPF Ur Squamous Epith Cells (0-2) /HPF Urine Bacteria (None Seen) Hyaline Casts (0-2) /LPF Urine Opiates Screen (Not Detect) Ur Buprenorphine Scrn (Not Detect) ng/mL Ur Oxycodone Screen (Not Detect) ng/mL Urine Methadone Screen (Not Detect) ng/mL Urine Fentanyl Screen (Not Detect) Ur Barbiturates Screen (Not Detect) Ur Phencyclidine Scrn (Not Detect) Ur Amphetamines Screen (Not Detect) U Benzodiazepines Scrn (Not Detect) Urine Cocaine Screen (Not Detect) U Marijuana (THC) Screen (Not Detect) Ethyl Alcohol < 10 mg/dL COVID-19 ([facility]) Negative (Negative) COVID-19 Clin Com See Note Influenza Type A ([facility]) Negative (Negative) Influenza Type B ([facility]) Negative (Negative) Influenza A & B Note See Note 06/26/25 06/26/25 Range/Units 21:07 21:25 WBC (4.8-10.8) X10*3/uL RBC (4.20-5.50) X10*6/uL Hgb (12.0-16.0) g/dl Hct (37.0-47.0) % MCV (80.0-98.0) fL MCH (27.0-33.0) pg MCHC (31.0-35.0) g/dl RDW (11.0-16.0) % Plt Count (160-400) X10*3/uL MPV Immature Gran % (Auto) (0.0-0.4) % Neut % (Auto) (45-73) % Lymph % (Auto) (20-40) % [place] % (Auto) (2-11) % Eos % (Auto) (0-4) % Baso % (Auto) (0-2) % Lymph # (Auto) (1.2-4.9) X10*3/uL [place] # (Auto) (0.1-1.2) X10*3/uL Eos # (Auto) (0.0-0.4) X10*3/uL Baso # (Auto) (0.0-0.2) X10*3/uL Abs Immat Gran (auto) (0.00-0.03) X10*3/uL Absolute Neuts (auto) (2.0-8.3) x10*3/uL Absolute Nucleated RBC (0.0-0.012) X10*3/uL Nucleated RBC % (auto) (0.0-0.2) /100WBC PT (10.9-12.4) SEC INR (0.9-1.1) D-Dimer High Sensitivty < 150 NG/ML VBG pH (7.32-7.43) VBG pCO2 mmHg VBG pO2 mmHg VBG HCO3 (22-26) mmol/L VBG O2 Saturation % VBG Base Excess mmol/L Sodium (135-145) mmol/L Potassium (3.3-5.1) mmol/L Chloride (96-108) mmol/L Carbon Dioxide (22-29) mmol/L Anion Gap (12-20) BUN (9-16) mg/dL Creatinine (0.5-1.4) mg/dL Estim Creat Clear Calc Estimated GFR Random Glucose (60-115) mg/dL Lactic Acid 1.4 (0.5-2.0) mmol/L Calcium (8.4-10.2) mg/dL Magnesium (1.6-2.6) mg/dL Total Bilirubin (0.0-1.0) mg/dL AST (5-31) U/L ALT (0-31) U/L Alkaline Phosphatase (39-117) U/L Troponin I High Sens 10.2 (<3.5-17.0) ng/L Total Protein (6.5-8.0) g/dL Albumin (3.5-5.0) g/dL Urine Color Yellow Urine Appearance Clear Urine pH 6.5 (5.0-9.0) Ur Specific [place] 1.020 (1.005-1.025) Urine Protein 30 (1+) H (Neg-Trace) mg/dL Urine Glucose (UA) Negative (Negative) mg/dL Urine Ketones 40 (Negative) mg/dL Urine Blood Moderate (2+) H (Negative) Urine Nitrite Negative (Negative) Ur Leukocyte Esterase Negative (Negative) Urine RBC 3-5 H (0-2) /HPF Urine WBC 0-5 (0-5) /HPF Ur Squamous Epith Cells 0-2 (0-2) /HPF Urine Bacteria None Seen (None Seen) Hyaline Casts 0-2 (0-2) /LPF Urine Opiates Screen POSITIVE H (Not Detect) Ur Buprenorphine Scrn Not Detected (Not Detect) ng/mL Ur Oxycodone Screen Positive H (Not Detect) ng/mL Urine Methadone Screen Not Detected (Not Detect) ng/mL Urine Fentanyl Screen Not Detected (Not Detect) Ur Barbiturates Screen Not Detected (Not Detect) Ur Phencyclidine Scrn Not Detected (Not Detect) Ur Amphetamines Screen Not Detected (Not Detect) U Benzodiazepines Scrn POSITIVE H (Not Detect) Urine Cocaine Screen Not Detected (Not Detect) U Marijuana (THC) Screen Not Detected (Not Detect) Ethyl Alcohol mg/dL COVID-19 ([facility]) (Negative) COVID-19 Clin Com Influenza Type A ([facility]) (Negative) Influenza Type B ([facility]) (Negative) Influenza A & B Note Radiology Impression Discussion of test interpretation with radiology: I have reviewed the radiologist's reading. Critical Care Time Critical Care Time Critical Care Time: Yes Total Critical Care Time: 35 Attestation: I Laisha Loco PA-C have personally performed 35 minutes of critical care time not including lines and procedures: Delirium, pneumonia, need for hospital admission, polypharmacy Discharge Plan Discharge Clinical Impression: Polypharmacy, Delirium, Pneumonia Patient Disposition: Admitted As Inpatient Print Language: Estonian
--- NOTE | 2025-06-27 04:45 | PC.NURSE ---
assumed care of patient at 0300, patient is currently asleep, resp even and unlabored. patient repositioned with pillow for comfort, plan of care on going, VSS
--- NOTE | 2025-06-27 05:54 | PM.IMHP ---
History of Present Illness Date of Service: 06/27/25 Attending physician on admission: Pedro Pablo Cardoso Chief Complaint: AMS Patient is an 79-year-old female with a past medical history significant for asthma/COPD, anxiety, hypertension, ITP, HFrEF and chronic pain on opiates, who presented to the ED as her roommate called EMS with concerns of hallucinations. The roommate reported that the patient fell back in April and has been complaining of right-sided leg pain since. The patient reports that she took all of her pain medication and she still has pain in her knee. Her mental status is labile but she is not currently confused. she reported to the ED provider that she has pneumonia that she was not treated for. Review of Systems Constitutional: Constitutional: Denies body ache(s), Denies chills, Denies fatigue, Denies fever(s) and Denies headache(s) Eyes: Eyes: Denies change in vision ENT: Denies headache(s), Denies nasal congestion and Denies sore throat Cardiovascular: Cardiovascular: Denies chest pain, Denies rapid heart rate, Denies leg edema, Denies lightheadedness and Denies dyspnea Respiratory: Respiratory: Denies chest congestion, Denies cough, Denies dyspnea and Denies wheezing Gastrointestinal: Gastrointestinal: Denies abdominal pain, Denies diarrhea, Denies nausea and Denies vomiting Genitourinary: Genitourinary: Denies difficulty voiding and Denies urinary urgency Musculoskeletal: Musculoskeletal: Reports as per HPI Integumentary/Breasts: Skin/Breast: Denies rash Neurologic: Reports confusion and Denies headache(s) Psychiatric: Psychiatric: Reports confusion Endocrine: Endocrine: Denies fatigue Hematologic/Lymphatic: Hematologic/Lymphatic: Denies easy bleeding and Denies easy bruising Allergic/Immunologic: Allergic/Immunologic: Denies wheezing [facility] Medical History Heme positive stool Chronic ITP (idiopathic thrombocytopenia) Ischemic cardiomyopathy Ascending aorta dilatation Atherosclerotic cardiovascular disease Non-rheumatic mitral regurgitation Non-rheumatic aortic regurgitation Non-rheumatic aortic stenosis Cardiomyopathy COPD exacerbation Heart failure with reduced ejection fraction Acute on chronic systolic (congestive) heart failure COPD (chronic obstructive pulmonary disease) Thrombocytopenia Osteoarthritis GERD (gastroesophageal reflux disease) Anxiety Asthma Family History Sister Lung cancer Lupus Sister Lung cancer Maternal Aunt Lupus Surgical History Hx of colonoscopy Hx of endoscopy Hx of oophorectomy Hx of hysterectomy Hx of total knee replacement Social History Household Members: Other Household Members Other:: lives alone Housing: Condominium Are you a primary child care provider to a significant other at home: No Do you presently have visiting nurse or other home services: Yes ([facility]) Alcohol intake: current Alcohol intake frequency: holidays/special occasions only Comment: patient refusing alarms Patient Tobacco Use Status: Former Tobacco user Smoked in Last 30 Days: No Second Hand Smoke Exposure: No Use of substances other than those prescribed or required for medical reasons: No Substance Use Type: Unknown Advance Directives: Yes Advance Directives on File: Yes Advance Directives Date on File: 03/20/23 Do you have a plan to hurt others: No Plan service: No Current occupational status: employed Meds Allergies Allergy/AdvReac Type Severity Reaction Status Date / Time amoxicillin Allergy Unknown Hives Verified 06/26/25 19:24 Penicillins (PENICILLINS) Allergy Unknown Hives Verified 06/26/25 19:24 Sulfa (Sulfonamide Allergy Unknown Hives Verified 06/26/25 19:24 Antibiotics) (SULFA (SULFONAMIDE ANTIBIOTICS)) Active Medications: Current Medications Azithromycin 500 mg/ Sodium (Chloride) 250 mls @ 125 mls/hr IV ONCE ONE Stop: 06/27/25 07:25 Home Medications ?Medication ?Instructions ?Recorded ?Confirmed ?Last Taken ?Type alprazolam 0.5 mg tablet 1 tab PO TID PRN Anxiety 12/07/20 05/30/25 10/12/22 History cholecalciferol (vitamin D3) 25 1,000 unit PO DAILY 02/07/21 05/30/25 05/29/25 History mcg (1,000 unit) capsule (Vitamin D3) albuterol sulfate 2.5 mg/3 mL 2.5 mg inhalation Q6H PRN Wheezing 01/27/22 05/30/25 10/12/22 History (0.083 %) solution for nebulization cyanocobalamin (vitamin B-12) 1,000 mcg PO DAILY 01/27/22 05/30/25 05/29/25 History 1,000 mcg tablet vitamin A 2,400 mcg capsule 2,400 mcg PO DAILY 01/27/22 05/30/25 05/29/25 History metoprolol succinate 25 mg 25 mg PO DAILY 05/17/22 05/30/25 05/29/25 History tablet,extended release 24 hr (Toprol XL) biotin 10,000 mcg chewable tablet 10,000 mcg PO DAILY 12/07/22 05/30/25 05/29/25 History (Hair, Skin and Nails (biotin)) ondansetron HCl 4 mg tablet 1 tab PO Q8H PRN Nausea And 12/07/22 05/30/25 Unknown History Vomiting albuterol sulfate 90 mcg/actuation 2 puff inhalation Q4H PRN Wheezing 06/12/24 05/30/25 Unknown History aerosol inhaler ferrous sulfate 325 mg (65 mg 325 mg PO DAILY 04/27/25 05/30/25 05/29/25 History iron) tablet oxycodone-acetaminophen 10 mg-325 1 tab PO QID PRN Pain 05/30/25 05/30/25 Unknown History mg tablet Physical Exam Vital Signs and Narrative: Vital Signs: Last Vital Signs Temp 98.5 F 06/27/25 04:37 Pulse 75 06/27/25 04:37 Resp 16 06/27/25 04:37 BP 152/57 H 06/27/25 04:37 Pulse Ox 92 06/27/25 04:37 O2 Del Method Room Air 06/27/25 04:37 BMI result Body Mass Index 28.7 General: AOx3, no acute distress Resp: CTA bilaterally CVS: S1, S2, RRR GI: +BS, NT, no distention Skin: Warm, dry Neuro: Cranial nerves II-XII grossly intact bilaterally. Motor grossly intact bilaterally Extremities: No pitting edema Psych: Appropriate affect Const: General: confusion Orientation/consciousness: confusion Neuro: General: confusion Results Labs 06/26/25 19:49 06/26/25 20:28 Labs: Laboratory Results - last 24 hr 06/26/25 06/26/25 06/26/25 19:49 19:58 20:28 MCV 98.2 H MCH 29.7 MCHC 30.2 L RDW 14.6 Plt Count 46 L D MPV Not Reportable Immature Gran % (Auto) 0.2 Neut % (Auto) 81.4 H Lymph % (Auto) 8.1 L [place] % (Auto) 8.9 Eos % (Auto) 0.8 Baso % (Auto) 0.6 Lymph # (Auto) 0.7 L [place] # (Auto) 0.8 Eos # (Auto) 0.1 Baso # (Auto) 0.1 Abs Immat Gran (auto) 0.02 Absolute Neuts (auto) 6.8 Absolute Nucleated RBC 0.000 Nucleated RBC % (auto) 0.0 PT 13.6 H INR 1.2 H D-Dimer High Sensitivty VBG pH 7.49 H VBG pCO2 40 VBG pO2 47 VBG HCO3 31 H VBG O2 Saturation 77.0 VBG Base Excess 7.6 Anion Gap 16 Estim Creat Clear Calc 69.4 Estimated GFR > 60 Random Glucose 91 Lactic Acid Calcium 9.2 D Magnesium 1.9 Total Bilirubin 0.9 AST 29 ALT 13 Alkaline Phosphatase 58 Troponin I High Sens 9.7 Total Protein 6.3 L Albumin 4.4 Urine Color Urine Appearance Urine pH Ur Specific [place] Urine Protein Urine Glucose (UA) Urine Ketones Urine Blood Urine Nitrite Ur Leukocyte Esterase Urine RBC Urine WBC Ur Squamous Epith Cells Urine Bacteria Hyaline Casts Urine Opiates Screen Ur Buprenorphine Scrn Ur Oxycodone Screen Urine Methadone Screen Urine Fentanyl Screen Ur Barbiturates Screen Ur Phencyclidine Scrn Ur Amphetamines Screen U Benzodiazepines Scrn Urine Cocaine Screen U Marijuana (THC) Screen Ethyl Alcohol < 10 COVID-19 (HINA) Negative COVID-19 Clin Com See Note Influenza Type A (KYLAH) Negative Influenza Type B (KYLAH) Negative Influenza A & B Note See Note 06/26/25 06/26/25 21:07 21:25 MCV MCH MCHC RDW Plt Count MPV Immature Gran % (Auto) Neut % (Auto) Lymph % (Auto) [place] % (Auto) Eos % (Auto) Baso % (Auto) Lymph # (Auto) [place] # (Auto) Eos # (Auto) Baso # (Auto) Abs Immat Gran (auto) Absolute Neuts (auto) Absolute Nucleated RBC Nucleated RBC % (auto) PT INR D-Dimer High Sensitivty < 150 VBG pH VBG pCO2 VBG pO2 VBG HCO3 VBG O2 Saturation VBG Base Excess Anion Gap Estim Creat Clear Calc Estimated GFR Random Glucose Lactic Acid 1.4 Calcium Magnesium Total Bilirubin AST ALT Alkaline Phosphatase Troponin I High Sens 10.2 Total Protein Albumin Urine Color Yellow Urine Appearance Clear Urine pH 6.5 Ur Specific [place] 1.020 Urine Protein 30 (1+) H Urine Glucose (UA) Negative Urine Ketones 40 Urine Blood Moderate (2+) H Urine Nitrite Negative Ur Leukocyte Esterase Negative Urine RBC 3-5 H Urine WBC 0-5 Ur Squamous Epith Cells 0-2 Urine Bacteria None Seen Hyaline Casts 0-2 Urine Opiates Screen POSITIVE H Ur Buprenorphine Scrn Not Detected Ur Oxycodone Screen Positive H Urine Methadone Screen Not Detected Urine Fentanyl Screen Not Detected Ur Barbiturates Screen Not Detected Ur Phencyclidine Scrn Not Detected Ur Amphetamines Screen Not Detected U Benzodiazepines Scrn POSITIVE H Urine Cocaine Screen Not Detected U Marijuana (THC) Screen Not Detected Ethyl Alcohol COVID-19 (HINA) COVID-19 Clin Com Influenza Type A (KYLAH) Influenza Type B (KYLAH) Influenza A & B Note Assessment and Plan (1) AMS (altered mental status): Status: Acute (2) Sepsis: Status: Acute (3) Pneumonia: Status: Acute (4) Polypharmacy: Status: Acute (5) Anemia: Status: Acute Plan Patient is an 79-year-old female with a past medical history significant for asthma/COPD, anxiety, hypertension, ITP, HFrEF and chronic pain on opiates, who presented to the ED as her roommate called EMS with concerns of hallucinations. AMS, acute metabolic encephalopathy versus polypharmacy in the setting of sepsis with pneumonia - ceftriaxone/azithromycin - monitor CBC and BMP R leg/knee pain, witnessed ambulation without difficulty in ED - continue outpt f/u - PT eval Chronic anemia, stable - monitor CBC ITP, platelets near baseline - monitor CBC Anxiety - continue home therapies, caution with benzos HTN - continue home therapies Chronic HFrEF, no acute exacerbation - continue home therapies Med rec pending Full code VTE prophylaxis: Pneumoboots due to ITP Patient with altered mental status, acute metabolic encephalopathy versus polypharmacy in the setting of sepsis with pneumonia, requiring admission for at least 2 midnight stay for IV antibiotics and monitoring. Quality Stroke Does the patient have a stroke diagnosis?: No VTE Prior VTE?: No VTE Risk Level:: Medical - moderate - high VTE Device Contraindication: N/A - Device Ordered VTE Drug Contraindication: Treatment Not Indicated
--- NOTE | 2025-06-27 06:57 | PC.NURSE ---
patient 1 assist tot he commode, had another BM. patient linens changed on bed, repositioned. patient noted to desat to 86% on room air, patient placed on 2l NC and recovered to 93%. patient IV infiltrated, additional IV placed in Lhand #22.
[2025-06-27] MEDS: oxyCODONE HCl Immed Release 5 MG TABLET PO ×2 (08:08→20:31)
--- NOTE | 2025-06-27 08:10 | PC.NURSE ---
Pt has poor appetite, nausea despite zofran 2 hours ago. She says [employer] usually works for her. Given small amount of vikash lexa. Pain 10/10 in LUQ and lower rib cage in the back, which she attributes to her fall of the couch yesterday. Given oxycodone and ice pack. Up to commode with one assist.
--- NOTE | 2025-06-27 08:15 | HO.NURTONUR ---
Addendum entered by Myriam Llamas RN 06/27/25 17:07: Alert and oriented 79 year old female being admitted for pneumonia and alerted mental status. Patient has been alert and able to make needs known. skin pwd, resp even and non labored, currently on 3lpm via NC and maintaining O2 sats. lungs clear, dim at the bases. 22g IV to left hand, no meds infusing at this time. patient takes her meds whole, 1 assist stand and pivot to bedside commode. Addendum entered by Bela Baltazar RN 06/27/25 09:42: Pt reports decreased pain, sleeps doubled over in the bed, but reports she is comfortable. Original Note: Pt alert and oriented, but came in post fall with some confusion. Lives at home, mostly alone. Hx of recent pneumonia, for which she did not take prescribed antibiotics. On 3L now, but on room air at home. Uses inhaler and nebs at home. Uses walker at home. Pt has left rib and back pain r/t fall yesterday. Has nausea this morning. IV ABO through 22G in left hand.
[2025-06-27 08:58] LABS: Hematocrit 32.9 % (37.0-47.0); Hemoglobin 10.1 g/dl (12.0-16.0); Mean Corpuscular HGB Conc 30.7 g/dl (31.0-35.0); Mean Corpuscular Hemoglobin 29.5 pg (27.0-33.0); Mean Corpuscular Volume 96.2 fL (80.0-98.0); NRBC Abs Auto 0.000 X10*3/uL (0.0-0.012); NRBC Pct Auto 0.0 /100WBC (0.0-0.2); Platelet Count 54 X10*3/uL (160-400); Red Blood Count 3.42 X10*6/uL (4.20-5.50); White Blood Count 9.7 X10*3/uL (4.8-10.8)
[2025-06-27 09:16] LABS: Anion Gap 12 (12-20); Blood Urea Nitrogen 10 mg/dL (9-16); Calcium 8.5 mg/dL (8.4-10.2); Carbon Dioxide 29 mmol/L (22-29); Chloride 106 mmol/L (96-108); Creatinine Clr Calc Pharmacy 76.9; Estimated Glomerular Filt Rate > 60; Potassium 4.2 mmol/L (3.3-5.1); Sodium 143 mmol/L (135-145)
[2025-06-27 09:32] LABS: Procalcitonin 0.07 ng/mL
--- NOTE | 2025-06-27 09:33 | PHA.MEDREC ---
Addendum entered by Jakub Orta, PharmD 06/27/25 09:52: MED REC CHECKED BY [facility] Original Note: Pharmacy Consult ? Medication Reconciliation Pharmacy has completed the medication reconciliation. Spoke with pt and she confirmed her medications. Pt confirmed she takes Oxycodone-Acetaminophen 10-325mg tabs 1 QID PRN pain. Pt has not been able to take her medications since Monday.
[2025-06-27] MEDS: Metoprolol Succinate ER 25 MG TAB.ER.24H PO (11:23)
--- NOTE | 2025-06-27 12:15 | MHC.CM.PN ---
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
[2025-06-27 12:43] LABS: MRSA Nasal PCR NEGATIVE (Negative); SA Nasal PCR NEGATIVE (Negative)
--- NOTE | 2025-06-27 13:11 | HO.PM.IMPN ---
Subjective Subjective Date of Service: 06/27/25 Interval History: AMS resolved, pt alert/oriented; c/o cough + dyspnea Review of Systems Review of Systems: Yes all other systems are reviewed and are negative Physical Exam Vital Signs: Vital Signs: Last Vital Signs Temp 98.3 F 06/27/25 11:20 Pulse 85 06/27/25 11:23 Resp 18 06/27/25 11:20 BP 129/54 L 06/27/25 11:23 Pulse Ox 98 06/27/25 11:20 O2 Del Method Nasal Cannula 06/27/25 11:20 O2 Flow Rate 3 06/27/25 11:20 BMI result Body Mass Index 28.7 Gen: in no acute distress HEENT: sclera anicteric, moist mucus membranes Neck: supple Lungs: L sided inspiratory crackles Heart: regular rate and rhythm, no murmurs Abd: soft, non-tender, non-distended Ext: no edema Skin: warm/well-perfused Neuro: alert and oriented x3, no focal findings Psych: appropriate affect Objective Data Active Medications Acetaminophen (Acetaminophen 325 Mg Tablet) 650 mg PO Q6H PRN PRN Reason: Pain, Mild 1-3,fever,headache Albuterol/Ipratropium (Albuterol/Iprat 2.5/0.5mg 3 Ml Ampul.Neb) 3 ml INHALE Q4H PRN PRN Reason: Shortness of Breath/Wheezing Alprazolam (Alprazolam 0.5 Mg Tablet) 0.5 mg PO TID PRN PRN Reason: Anxiety Benzonatate (Benzonatate 100 Mg Capsule) 100 mg PO TID PRN PRN Reason: Cough Calcium Carbonate (Calcium Carbonate 750 Mg Tab.Chew) 750 mg PO Q4H PRN PRN Reason: Heartburn Ceftriaxone Sodium (Ceftriaxone Sodium 1 Gm Vial) 1 gm IVPUSH Q24H ROBERTO Cyanocobalamin (Cyanocobalamin (Vitamin B-12) 1,000 Mcg Tablet) 1,000 mcg PO DAILY ROBERTO Doxycycline Monohydrate (Doxycycline Monohydrate 100 Mg Capsule) 100 mg PO Q12H ROBERTO Last Admin: 06/27/25 11:23 Dose: 100 mg Documented By: KANDIS Ferrous Sulfate (Ferrous Sulfate 324 Mg Tablet.Dr) 324 mg PO DAILY ROBERTO Magnesium Hydroxide (Milk Of Magnesia 30 Ml Oral.Susp) 30 ml PO DAILY PRN PRN Reason: Constipation Melatonin (Melatonin 3 Mg Tablet) 6 mg PO BEDTIME PRN PRN Reason: Insomnia Metoprolol Succinate (Metoprolol Succinate Er 25 Mg Tab.Er.24h) 25 mg PO DAILY [facility]; Protocol Last Admin: 06/27/25 11:23 Dose: 25 mg Documented By: KANDIS Ondansetron HCl (Ondansetron Odt 4 Mg Tab.Rapdis) 4 mg TRANSLINGU Q8H PRN PRN Reason: Nausea and Vomiting Oxycodone HCl (Oxycodone Hcl Immed Release 5 Mg Tablet) 5 mg PO Q6H PRN PRN Reason: Breakthrough Pain Last Admin: 06/27/25 08:08 Dose: 5 mg Documented By: LYLY Polyethylene Glycol (Polyethylene Glycol 3350 17 Gm Powd.Pack) 17 gm PO DAILY PRN PRN Reason: Constipation Sodium Chloride (0.9 % Sodium Chloride Flush 3 Ml Syringe) 3 ml IVFLUSH QSHIFT [facility] Last Admin: 06/27/25 07:25 Dose: Not Given Documented By: LYLY Non-Admin Reason: IV Running Vitamin D (Cholecalciferol (Vitamin D3) 25 Mcg Tablet) 25 mcg PO DAILY [facility] Labs 06/27/25 08:50 06/27/25 08:50 Labs: Laboratory Results - last 24 hr 06/26/25 06/26/25 06/26/25 19:49 19:58 20:28 MCV 98.2 H MCH 29.7 MCHC 30.2 L RDW 14.6 Plt Count 46 L D MPV Not Reportable Immature Gran % (Auto) 0.2 Neut % (Auto) 81.4 H Lymph % (Auto) 8.1 L [place] % (Auto) 8.9 Eos % (Auto) 0.8 Baso % (Auto) 0.6 Lymph # (Auto) 0.7 L [place] # (Auto) 0.8 Eos # (Auto) 0.1 Baso # (Auto) 0.1 Abs Immat Gran (auto) 0.02 Absolute Neuts (auto) 6.8 Absolute Nucleated RBC 0.000 Nucleated RBC % (auto) 0.0 PT 13.6 H INR 1.2 H D-Dimer High Sensitivty VBG pH 7.49 H VBG pCO2 40 VBG pO2 47 VBG HCO3 31 H VBG O2 Saturation 77.0 VBG Base Excess 7.6 Anion Gap 16 Estim Creat Clear Calc 69.4 Estimated GFR > 60 Random Glucose 91 Lactic Acid Calcium 9.2 D Magnesium 1.9 Total Bilirubin 0.9 AST 29 ALT 13 Alkaline Phosphatase 58 Troponin I High Sens 9.7 Total Protein 6.3 L Albumin 4.4 Procalcitonin Urine Color Urine Appearance Urine pH Ur Specific [place] Urine Protein Urine Glucose (UA) Urine Ketones Urine Blood Urine Nitrite Ur Leukocyte Esterase Urine RBC Urine WBC Ur Squamous Epith Cells Urine Bacteria Hyaline Casts Nasal Screen MRSA (PCR) Nasal S. aureus Screen Nasal MRSA/S.aureus Interp Urine Opiates Screen Ur Buprenorphine Scrn Ur Oxycodone Screen Urine Methadone Screen Urine Fentanyl Screen Ur Barbiturates Screen Ur Phencyclidine Scrn Ur Amphetamines Screen U Benzodiazepines Scrn Urine Cocaine Screen U Marijuana (THC) Screen Ethyl Alcohol < 10 COVID-19 (HINA) Negative COVID-19 Clin Com See Note Influenza Type A (KYLAH) Negative Influenza Type B (KYLAH) Negative Influenza A & B Note See Note 06/26/25 06/26/25 06/27/25 21:07 21:25 08:50 MCV 96.2 MCH 29.5 MCHC 30.7 L RDW 14.5 Plt Count 54 L MPV Not Reportable Immature Gran % (Auto) Neut % (Auto) Lymph % (Auto) [place] % (Auto) Eos % (Auto) Baso % (Auto) Lymph # (Auto) [place] # (Auto) Eos # (Auto) Baso # (Auto) Abs Immat Gran (auto) Absolute Neuts (auto) Absolute Nucleated RBC 0.000 Nucleated RBC % (auto) 0.0 PT INR D-Dimer High Sensitivty < 150 VBG pH VBG pCO2 VBG pO2 VBG HCO3 VBG O2 Saturation VBG Base Excess Anion Gap 12 Estim Creat Clear Calc 76.9 Estimated GFR > 60 Random Glucose 107 Lactic Acid 1.4 Calcium 8.5 D Magnesium Total Bilirubin AST ALT Alkaline Phosphatase Troponin I High Sens 10.2 Total Protein Albumin Procalcitonin 0.07 Urine Color Yellow Urine Appearance Clear Urine pH 6.5 Ur Specific [place] 1.020 Urine Protein 30 (1+) H Urine Glucose (UA) Negative Urine Ketones 40 Urine Blood Moderate (2+) H Urine Nitrite Negative Ur Leukocyte Esterase Negative Urine RBC 3-5 H Urine WBC 0-5 Ur Squamous Epith Cells 0-2 Urine Bacteria None Seen Hyaline Casts 0-2 Nasal Screen MRSA (PCR) Nasal S. aureus Screen Nasal MRSA/S.aureus Interp Urine Opiates Screen POSITIVE H Ur Buprenorphine Scrn Not Detected Ur Oxycodone Screen Positive H Urine Methadone Screen Not Detected Urine Fentanyl Screen Not Detected Ur Barbiturates Screen Not Detected Ur Phencyclidine Scrn Not Detected Ur Amphetamines Screen Not Detected U Benzodiazepines Scrn POSITIVE H Urine Cocaine Screen Not Detected U Marijuana (THC) Screen Not Detected Ethyl Alcohol COVID-19 ([facility]INA) COVID-19 Clin Com Influenza Type A (KYLAH) Influenza Type B (KYLAH) Influenza A & B Note 06/27/25 11:31 MCV MCH MCHC RDW Plt Count MPV Immature Gran % (Auto) Neut % (Auto) Lymph % (Auto) [place] % (Auto) Eos % (Auto) Baso % (Auto) Lymph # (Auto) [place] # (Auto) Eos # (Auto) Baso # (Auto) Abs Immat Gran (auto) Absolute Neuts (auto) Absolute Nucleated RBC Nucleated RBC % (auto) PT INR D-Dimer High Sensitivty VBG pH VBG pCO2 VBG pO2 VBG HCO3 VBG O2 Saturation VBG Base Excess Anion Gap Estim Creat Clear Calc Estimated GFR Random Glucose Lactic Acid Calcium Magnesium Total Bilirubin AST ALT Alkaline Phosphatase Troponin I High Sens Total Protein Albumin Procalcitonin Urine Color Urine Appearance Urine pH Ur Specific [place] Urine Protein Urine Glucose (UA) Urine Ketones Urine Blood Urine Nitrite Ur Leukocyte Esterase Urine RBC Urine WBC Ur Squamous Epith Cells Urine Bacteria Hyaline Casts Nasal Screen MRSA (PCR) NEGATIVE Nasal S. aureus Screen NEGATIVE Nasal MRSA/S.aureus Interp SEE NOTE Urine Opiates Screen Ur Buprenorphine Scrn Ur Oxycodone Screen Urine Methadone Screen Urine Fentanyl Screen Ur Barbiturates Screen Ur Phencyclidine Scrn Ur Amphetamines Screen U Benzodiazepines Scrn Urine Cocaine Screen U Marijuana (THC) Screen Ethyl Alcohol COVID-19 ([facility]INA) COVID-19 Clin Com Influenza Type A (KYLA[facility]) Influenza Type B (KYLA[facility]) Influenza A & B Note Assessment and Plan (1) Polypharmacy: Status: Acute Plan d1, 79yo F with asthma/COPD, chronic ITP, HFrEF, chronic pain on opioids, anxiety on benzodiazeppines, and HTN; sent in due to hallucinations, also recently diagnosed with PNA but did not get treated PNA: ceftriaxone and doxycycline 06/27-, MRSA negative, flu/Covid/RSV negative, follow BCx, trend PCT; no steroids for now as not wheezing toxic encephalopathy: due to polypharmacy; monitor carefully; caution with opioid-benzo combination anxiety: continue alprazolam asthma/COPD without acute exacerbation: prn nebs leg pain: PT eval chronic anemia and ITP: seen by Heme-Onc as outpt, scheduling outpt bone marrow biopsy, counts around baseline HTN, chronic HFrEF: metoprolol succinate, does not appear fluid overloaded VTE ppx: enoxaparin dispo: PT eval: STR recommended In my clinical judgment, the patient requires continued inpatient hospitalization for the following reasons: IV ABX, AMS monitoring Total time managing care of this patient today: 35 minutes. Quality Stroke Does the patient have a stroke diagnosis?: No VTE Prior VTE?: No VTE Risk Level:: Medical - moderate - high VTE Device Contraindication: N/A - Device Ordered VTE Drug Contraindication: Treatment Not Indicated
--- NOTE | 2025-06-27 14:56 | PC.NURSE ---
Patient sleeping, skin pwd, resp even and non labored, maintaining O2 sats on 3lpm via NC. appears comfortable at this time. awaiting admission
[2025-06-27] MEDS: 0.9 % Sodium Chloride Flush 3 ML SYRINGE IVFLUSH (16:30)
[2025-06-28] MEDS: 0.9 % Sodium Chloride Flush 3 ML SYRINGE IVFLUSH ×4 (01:18→22:38)
[2025-06-28 01:19] VITALS: RESP 18
[2025-06-28 04:00] VITALS: BP 130/60; PULSE 84; RESP 16; TEMP 36.7; O2SAT 95
[2025-06-28] MEDS: oxyCODONE HCl Immed Release 5 MG TABLET PO (07:49)
[2025-06-28] MEDS: Ferrous Sulfate 324 MG TABLET.DR PO (07:51)
[2025-06-28] MEDS: Metoprolol Succinate ER 25 MG TAB.ER.24H PO (07:51)
[2025-06-28 08:00] VITALS: BP 151/87; PULSE 84; RESP 16; TEMP 36.5; O2SAT 90
[2025-06-28 08:13] LABS: Imm Gran Abs Auto 0.02 X10*3/uL (0.00-0.03); Imm Gran Pct Auto 0.3 % (0.0-0.4); NRBC Abs Auto 0.000 X10*3/uL (0.0-0.012); NRBC Pct Auto 0.0 /100WBC (0.0-0.2)
[2025-06-28 08:15] LABS: Hematocrit 35.8 % (37.0-47.0); Hemoglobin 10.8 g/dl (12.0-16.0); Lymphocytes Absolute Auto 1.2 X10*3/uL (1.2-4.9); Mean Corpuscular HGB Conc 30.2 g/dl (31.0-35.0); Mean Corpuscular Hemoglobin 29.5 pg (27.0-33.0); Mean Corpuscular Volume 97.8 fL (80.0-98.0); Red Blood Count 3.66 X10*6/uL (4.20-5.50)
[2025-06-28 08:17] LABS: Platelet Count 55 X10*3/uL (160-400); White Blood Count 7.1 X10*3/uL (4.8-10.8)
[2025-06-28 08:19] LABS: Glucose, Whole Blood 94 mg/dL (60-115)
[2025-06-28 08:48] LABS: Alanine Aminotransferase 13 U/L (0-31); Albumin Level 3.8 g/dL (3.5-5.0); Alkaline Phosphatase 48 U/L (39-117); Anion Gap 11 (12-20); Aspartate Amino Transferase 29 U/L (5-31); Blood Urea Nitrogen 16 mg/dL (9-16); Calcium 8.4 mg/dL (8.4-10.2); Carbon Dioxide 28 mmol/L (22-29); Chloride 108 mmol/L (96-108); Creatinine Clr Calc Pharmacy 68.1; Estimated Glomerular Filt Rate > 60; Potassium 3.8 mmol/L (3.3-5.1); Sodium 143 mmol/L (135-145); Total Protein 5.7 g/dL (6.5-8.0)
[2025-06-28 11:12] VITALS: BP 140/71; PULSE 89; RESP 15; TEMP 36.2; O2SAT 93
--- NOTE | 2025-06-28 11:46 | P.PNIM_ITS ---
Subjective Subjective Date of Service: 06/28/25 Interval History: alert, c/o uncontrolled pain, usually on 10 mg oxycodone not 5 mg; cough improved; no dyspnea Review of Systems Review of Systems: Yes all other systems are reviewed and are negative Physical Exam 2 Vital Signs: Vital Signs: Last Vital Signs Temp 97.1 F 06/28/25 11:12 Pulse 89 06/28/25 11:12 Resp 15 06/28/25 11:12 BP 140/71 H 06/28/25 11:12 Pulse Ox 93 06/28/25 11:12 O2 Del Method Room Air 06/28/25 11:12 O2 Flow Rate 3 06/27/25 20:39 BMI result Body Mass Index 31.2 Gen: in no acute distress HEENT: sclera anicteric, moist mucus membranes Neck: supple Lungs: L sided inspiratory crackles Heart: regular rate and rhythm, no murmurs Abd: soft, non-tender, non-distended Ext: no edema Skin: warm/well-perfused Neuro: alert and oriented x3, no focal findings Psych: appropriate affect Objective Data Active Medications Acetaminophen (Acetaminophen 325 Mg Tablet) 650 mg PO Q6H PRN PRN Reason: Pain, Mild 1-3,fever,headache Last Admin: 06/28/25 01:21 Dose: 650 mg Documented By: KEM Albuterol/Ipratropium (Albuterol/Iprat 2.5/0.5mg 3 Ml Ampul.Neb) 3 ml INHALE Q4H PRN PRN Reason: Shortness of Breath/Wheezing Alprazolam (Alprazolam 0.5 Mg Tablet) 0.5 mg PO TID PRN PRN Reason: Anxiety Last Admin: 06/27/25 22:39 Dose: 0.5 mg Documented By: TABITHA Benzonatate (Benzonatate 100 Mg Capsule) 100 mg PO TID PRN PRN Reason: Cough Calcium Carbonate (Calcium Carbonate 750 Mg Tab.Chew) 750 mg PO Q4H PRN PRN Reason: Heartburn Ceftriaxone Sodium (Ceftriaxone Sodium 1 Gm Vial) 1 gm IVPUSH Q24H [facility] Last Admin: 06/28/25 06:30 Dose: 1 gm Documented By: KEM Cyanocobalamin (Cyanocobalamin (Vitamin B-12) 1,000 Mcg Tablet) 1,000 mcg PO DAILY [facility] Last Admin: 06/28/25 07:51 Dose: 1,000 mcg Documented By: SABRINA Doxycycline Monohydrate (Doxycycline Monohydrate 100 Mg Capsule) 100 mg PO Q12H [facility] Last Admin: 06/28/25 11:16 Dose: 100 mg Documented By: SABRINA Ferrous Sulfate (Ferrous Sulfate 324 Mg Tablet.Dr) 324 mg PO DAILY [facility] Last Admin: 06/28/25 07:51 Dose: 324 mg Documented By: SABRINA Magnesium Hydroxide (Milk Of Magnesia 30 Ml Oral.Susp) 30 ml PO DAILY PRN PRN Reason: Constipation Melatonin (Melatonin 3 Mg Tablet) 6 mg PO BEDTIME PRN PRN Reason: Insomnia Metoprolol Succinate (Metoprolol Succinate Er 25 Mg Tab.Er.24h) 25 mg PO DAILY [facility]; Protocol Last Admin: 06/28/25 07:51 Dose: 25 mg Documented By: SABRINA Ondansetron HCl (Ondansetron Odt 4 Mg Tab.Rapdis) 4 mg TRANSLINGU Q8H PRN PRN Reason: Nausea and Vomiting Oxycodone HCl (Oxycodone Hcl Immed Release 5 Mg Tablet) 10 mg PO Q6H PRN PRN Reason: Breakthrough Pain Polyethylene Glycol (Polyethylene Glycol 3350 17 Gm Powd.Pack) 17 gm PO DAILY PRN PRN Reason: Constipation Sodium Chloride (0.9 % Sodium Chloride Flush 3 Ml Syringe) 3 ml IVFLUSH QSHIFT [facility] Last Admin: 06/28/25 07:52 Dose: 3 ml Documented By: SABRINA Vitamin D (Cholecalciferol (Vitamin D3) 25 Mcg Tablet) 25 mcg PO DAILY [facility] Last Admin: 06/28/25 07:46 Dose: 25 mcg Documented By: SABRINA Labs 06/28/25 06:50 06/28/25 06:50 Labs: Laboratory Results - last 24 hr 06/27/25 06/28/25 06/28/25 11:31 06:50 08:13 MCV 97.8 MCH 29.5 MCHC 30.2 L RDW 15.0 Plt Count 55 L MPV Not Reportable Immature Gran % (Auto) 0.3 Neut % (Auto) 68.0 Lymph % (Auto) 17.2 L [place] % (Auto) 10.9 Eos % (Auto) 2.8 Baso % (Auto) 0.8 Lymph # (Auto) 1.2 [place] # (Auto) 0.8 Eos # (Auto) 0.2 Baso # (Auto) 0.1 Abs Immat Gran (auto) 0.02 Absolute Neuts (auto) 4.8 Absolute Nucleated RBC 0.000 Nucleated RBC % (auto) 0.0 Anion Gap 11 L Estim Creat Clear Calc 68.1 Estimated GFR > 60 POC Glucose 94 Random Glucose 80 Calcium 8.4 Total Bilirubin 0.5 AST 29 ALT 13 Alkaline Phosphatase 48 Total Protein 5.7 L Albumin 3.8 Nasal Screen MRSA (PCR) NEGATIVE Nasal S. aureus Screen NEGATIVE Nasal MRSA/S.aureus Interp SEE NOTE Microbiology Microbiology Results: Microbiology 06/26/25 21:07 Blood Culture - Preliminary Blood - Venous No growth after 24 hours. 06/26/25 21:07 Blood Culture - Preliminary Blood - Venous No growth after 24 hours. Assessment and Plan (1) Polypharmacy: Status: Acute Plan d2, 79yo F with asthma/COPD, chronic ITP, HFrEF, chronic pain on opioids, anxiety on benzodiazeppines, and HTN; sent in due to hallucinations, also recently diagnosed with PNA but did not get treated due to pt refusal PNA - ceftriaxone and doxycycline 06/27-, MRSA negative, flu/Covid/RSV negative, follow BCx, trend PCT - no steroids for now as not wheezing acute encephalopathy - suspected due to pneumonia or polypharmacy; pt was recently switched from oxycodone to morphine by her pain management doctor but it caused her to hallucinate; changed back to oxycodone 1-2 wk ago - resolved; monitor with caution with opioid-benzo combination anxiety: continue alprazolam asthma/COPD without acute exacerbation: prn nebs leg pain: PT eval- STR recommended chronic anemia and ITP: seen by Heme-Onc as outpt, scheduling outpt bone marrow biopsy, counts around baseline HTN, chronic HFrEF: metoprolol succinate, does not appear fluid overloaded VTE ppx: SCDs; no heparin given low platelets dispo: PT eval: STR recommended but pt refuses, will go home with VNA In my clinical judgment, the patient requires continued inpatient hospitalization for the following reasons: IV ABX, AMS monitoring Total time managing care of this patient today: 35 minutes. Quality Stroke Does the patient have a stroke diagnosis?: No VTE Prior VTE?: No VTE Risk Level:: Medical - moderate - high VTE Device Contraindication: N/A - Device Ordered VTE Drug Contraindication: Treatment Not Indicated
[2025-06-28] MEDS: oxyCODONE HCl Immed Release 5 MG TABLET 10 MG PO ×2 (14:39→22:40)
[2025-06-28 15:45] VITALS: BP 147/65; PULSE 79; RESP 16; TEMP 36.2; O2SAT 92
[2025-06-28 19:45] VITALS: BP 109/51; PULSE 80; RESP 16; TEMP 36.7; O2SAT 92
[2025-06-29 04:00] VITALS: BP 122/59; PULSE 72; RESP 16; TEMP 36.7; O2SAT 92
[2025-06-29 07:13] VITALS: BP 116/57; PULSE 87; RESP 18; TEMP 36.9; O2SAT 92
--- NOTE | 2025-06-29 07:18 | P.PNIM_ITS ---
Subjective Subjective Date of Service: 06/29/25 Physical Exam 2 Vital Signs: Vital Signs: Last Vital Signs Temp 98.4 F 06/29/25 07:13 Pulse 87 06/29/25 07:13 Resp 18 06/29/25 07:13 BP 116/57 L 06/29/25 07:13 Pulse Ox 92 06/29/25 07:13 O2 Del Method Room Air 06/29/25 07:13 O2 Flow Rate 3 06/28/25 15:45 BMI result Body Mass Index 31.2 Objective Data Active Medications Acetaminophen (Acetaminophen 325 Mg Tablet) 650 mg PO Q6H PRN PRN Reason: Pain, Mild 1-3,fever,headache Last Admin: 06/28/25 01:21 Dose: 650 mg Documented By: KEM Albuterol/Ipratropium (Albuterol/Iprat 2.5/0.5mg 3 Ml Ampul.Neb) 3 ml INHALE Q4H PRN PRN Reason: Shortness of Breath/Wheezing Alprazolam (Alprazolam 0.5 Mg Tablet) 0.5 mg PO TID PRN PRN Reason: Anxiety Last Admin: 06/29/25 03:15 Dose: 0.5 mg Documented By: EARL Benzonatate (Benzonatate 100 Mg Capsule) 100 mg PO TID PRN PRN Reason: Cough Calcium Carbonate (Calcium Carbonate 750 Mg Tab.Chew) 750 mg PO Q4H PRN PRN Reason: Heartburn Ceftriaxone Sodium (Ceftriaxone Sodium 1 Gm Vial) 1 gm IVPUSH Q24H [facility] Last Admin: 06/29/25 05:49 Dose: 1 gm Documented By: EARL Cyanocobalamin (Cyanocobalamin (Vitamin B-12) 1,000 Mcg Tablet) 1,000 mcg PO DAILY [facility] Last Admin: 06/28/25 07:51 Dose: 1,000 mcg Documented By: SABRINA Doxycycline Monohydrate (Doxycycline Monohydrate 100 Mg Capsule) 100 mg PO Q12H [facility] Last Admin: 06/28/25 22:38 Dose: 100 mg Documented By: EARL Ferrous Sulfate (Ferrous Sulfate 324 Mg Tablet.Dr) 324 mg PO DAILY [facility] Last Admin: 06/28/25 07:51 Dose: 324 mg Documented By: SABRINA Magnesium Hydroxide (Milk Of Magnesia 30 Ml Oral.Susp) 30 ml PO DAILY PRN PRN Reason: Constipation Melatonin (Melatonin 3 Mg Tablet) 6 mg PO BEDTIME PRN PRN Reason: Insomnia Metoprolol Succinate (Metoprolol Succinate Er 25 Mg Tab.Er.24h) 25 mg PO DAILY [facility]; Protocol Last Admin: 06/28/25 07:51 Dose: 25 mg Documented By: SABRINA Ondansetron HCl (Ondansetron Odt 4 Mg Tab.Rapdis) 4 mg TRANSLINGU Q8H PRN PRN Reason: Nausea and Vomiting Ondansetron HCl (Ondansetron Hcl 4 Mg/2 Ml Vial) 4 mg IVPUSH Q4H PRN PRN Reason: Nausea and Vomiting Last Admin: 06/28/25 12:15 Dose: 4 mg Documented By: SABRINA Oxycodone HCl (Oxycodone Hcl Immed Release 5 Mg Tablet) 10 mg PO Q6H PRN PRN Reason: Breakthrough Pain Last Admin: 06/28/25 22:40 Dose: 10 mg Documented By: EARL Polyethylene Glycol (Polyethylene Glycol 3350 17 Gm Powd.Pack) 17 gm PO DAILY PRN PRN Reason: Constipation Sodium Chloride (0.9 % Sodium Chloride Flush 3 Ml Syringe) 3 ml IVFLUSH QSHIFT [facility] Last Admin: 06/28/25 22:38 Dose: 3 ml Documented By: EARL Vitamin D (Cholecalciferol (Vitamin D3) 25 Mcg Tablet) 25 mcg PO DAILY [facility] Last Admin: 06/28/25 07:46 Dose: 25 mcg Documented By: SABRINA Labs 06/28/25 06:50 06/28/25 06:50 Labs: Laboratory Results - last 24 hr 06/28/25 06/28/25 06:50 08:13 MCV 97.8 MCH 29.5 MCHC 30.2 L RDW 15.0 Plt Count 55 L MPV Not Reportable Immature Gran % (Auto) 0.3 Neut % (Auto) 68.0 Lymph % (Auto) 17.[address] [place] % (Auto) 10.9 Eos % (Auto) 2.8 Baso % (Auto) 0.8 Lymph # (Auto) 1.2 [place] # (Auto) 0.8 Eos # (Auto) 0.2 Baso # (Auto) 0.1 Abs Immat Gran (auto) 0.02 Absolute Neuts (auto) 4.8 Absolute Nucleated RBC 0.000 Nucleated RBC % (auto) 0.0 Anion Gap 11 L Estim Creat Clear Calc 68.1 Estimated GFR > 60 POC Glucose 94 Random Glucose 80 Calcium 8.4 Total Bilirubin 0.5 AST 29 ALT 13 Alkaline Phosphatase 48 Total Protein 5.7 L Albumin 3.8 Microbiology Microbiology Results: Microbiology 06/26/25 21:07 Blood Culture - Preliminary Blood - Venous No growth after 48 hours. 06/26/25 21:07 Blood Culture - Preliminary Blood - Venous No growth after 48 hours. Quality Stroke Does the patient have a stroke diagnosis?: No VTE Prior VTE?: No VTE Risk Level:: Medical - moderate - high VTE Device Contraindication: N/A - Device Ordered VTE Drug Contraindication: Treatment Not Indicated
[2025-06-29 07:58] LABS: Mean Corpuscular HGB Conc 30.5 g/dl (31.0-35.0); NRBC Abs Auto 0.000 X10*3/uL (0.0-0.012); NRBC Pct Auto 0.0 /100WBC (0.0-0.2)
[2025-06-29 07:59] LABS: Hematocrit 31.5 % (37.0-47.0); Hemoglobin 9.6 g/dl (12.0-16.0); Mean Corpuscular Hemoglobin 29.7 pg (27.0-33.0); Mean Corpuscular Volume 97.5 fL (80.0-98.0); PLT CLUMP 1; Red Blood Count 3.23 X10*6/uL (4.20-5.50)
[2025-06-29 08:01] LABS: PLT ABN DIST 1
[2025-06-29] MEDS: Ferrous Sulfate 324 MG TABLET.DR PO (08:11)
[2025-06-29] MEDS: oxyCODONE HCl Immed Release 5 MG TABLET 10 MG PO ×3 (08:11→20:32)
[2025-06-29] MEDS: Metoprolol Succinate ER 25 MG TAB.ER.24H PO (08:11)
[2025-06-29] MEDS: 0.9 % Sodium Chloride Flush 3 ML SYRINGE IVFLUSH ×3 (08:12→23:07)
[2025-06-29 08:23] LABS: Procalcitonin 0.05 ng/mL
[2025-06-29 08:36] LABS: Platelet Count 55 X10*3/uL (160-400); White Blood Count 6.5 X10*3/uL (4.8-10.8)
[2025-06-29 12:00] VITALS: BP 117/62; PULSE 82; RESP 18; TEMP 36.8; O2SAT 92
--- NOTE | 2025-06-29 13:41 | PM.DS ---
DS: Providers Provider Date of Service: 06/29/25 Date of admission: 06/27/25 05:52 Date of discharge: 06/29/25 Primary care physician: Unknown Physician DS: Diagnosis Discharge Diagnosis (1) Polypharmacy: Status: Acute DS: Summary Hospital Course Hospital Course: Acute encephalopathy secondary to polypharmacy, less likely sepsis-resolved with medication adjustments Morphine allergy-hallucinations 79-year-old female with a past medical history significant for asthma/COPD, anxiety, hypertension, ITP, HFrEF and chronic pain on opiates, who presented to the ED as her roommate called EMS with concerns of hallucinations (2/2 morphine SE). Per history mainly by the roommate going based off of H and P-it appears that the patient had a fall in April and her PCP trialed her on morphine which need for a side effect of hallucinations and was switched back to weeks ago for oxycodone. Likely in the setting of polypharmacy benzos and Oxy, she likely had an acute delirium/hallucination episodes. Patient was monitored for 2-1/2 days without incident. Sepsis workup thus far unremarkable-has chronic atelectatic changes in her CXR (was briefly treated with IV antibiotics which has been switched to Levaquin empirically as she reports allergy to penicillins and sulfa drugs) Asthma COPD -currently not having any exacerbation, continued on p.r.n. nebs and advised the patient to follow-up with outpatient [facility] Given encephalopathy POA and possible sepsis workup-was briefly treated with IV antibiotics and being discharged on Levaquin 5 day course anxiety: continue alprazolam asthma/COPD without acute exacerbation: prn nebs leg pain: PT eval- STR recommended, per PT eval: STR recommended but pt refuses, will go home with VNA chronic anemia and ITP: seen by Heme-Onc as outpt, scheduling outpt bone marrow biopsy, counts around baseline HTN, chronic HFrEF: metoprolol succinate, not in acute failure this hospitalization VTE ppx: SCDs; no heparin given low platelets Given that the patient is back to her baseline, even though she is being advised to go to a rehab, she would like to go home with VNA services. Patient advised about benzo and opioid polypharmacy and to be watchful. Advised about fall prevention. Time spent discussing smoking cessation with patient: more than 10 minutes Status at Discharge Functional status at discharge: uses cane/walker Overall status at discharge: patient is progressing back to baseline Time Attestation Discharge Coordination Time (in mins): 35 Quality: Safe Use of Opioids Does Pt have an Active Cancer Diagnosis on the Problem List?: No Quality: Stroke Does the patient have a stroke diagnosis?: No Physical Exam Vital Signs: Vital Signs: Last Vital Signs Temp 98.2 F 06/29/25 12:00 Pulse 82 06/29/25 12:00 Resp 18 06/29/25 12:00 BP 117/62 06/29/25 12:00 Pulse Ox 92 06/29/25 12:00 O2 Del Method Room Air 06/29/25 12:00 O2 Flow Rate 3 06/28/25 15:45 BMI result Body Mass Index 31.2 DS: Data Data Completed and Pending Completed studies during hospitalization [Text1]: Procedures Destruction of Ascending Colon, Via Natural or Artificial Opening Endoscopic (06/12/24) Destruction of Cecum, Via Natural or Artificial Opening Endoscopic (01/27/22) Destruction of Duodenum, Via Natural or Artificial Opening Endoscopic (06/12/24) Excision of Ascending Colon, Via Natural or Artificial Opening Endoscopic, Diagnostic (06/12/24) Excision of Duodenum, Via Natural or Artificial Opening Endoscopic, Diagnostic (06/12/24) Excision of Rectum, Via Natural or Artificial Opening Endoscopic, Diagnostic (06/12/24) Excision of Sigmoid Colon, Via Natural or Artificial Opening Endoscopic, Diagnostic (06/12/24) Excision of Stomach, Pylorus, Via Natural or Artificial Opening Endoscopic, Diagnostic (06/12/24) Excision of Transverse Colon, Via Natural or Artificial Opening Endoscopic, Diagnostic (06/12/24) Transfusion of Nonautologous Red Blood Cells into Peripheral Vein, Percutaneous Approach (06/12/24) Labs on day of discharge: Laboratory Results - last 24 hr 06/29/25 06:46 WBC 6.5 RBC 3.23 L Hgb 9.6 L Hct 31.5 L MCV 97.5 MCH 29.7 MCHC 30.5 L RDW 15.3 Plt Count 55 L MPV Not Reportable Absolute Nucleated RBC 0.000 Nucleated RBC % (auto) 0.0 Procalcitonin 0.05 Preliminary micro results at discharge 06/26/25 21:07 Blood Culture - Preliminary Blood - Venous No growth after 48 hours. 06/26/25 21:07 Blood Culture - Preliminary Blood - Venous No growth after 48 hours. Discharge Plan Discharge Anticipated Discharge Date/Time: 06/29/25 13:35 Patient Disposition: Home Health Service Discharge Diagnosis: Altered mental status secondary to pneumonia, resolved Referrals: Physician,Unknown J [Primary Care Provider, Medical] - 1 Week Discharge Medications: New benzonatate 100 mg Capsule 100 mg PO TID PRN (Reason: Cough) 10 Days Qty: 10 0RF levofloxacin 500 mg tablet 500 mg PO DAILY 5 Days Qty: 5 0RF Continued alprazolam 0.5 mg tablet 1 tab PO TID PRN (Reason: Anxiety) ondansetron HCl 4 mg tablet 1 tab PO Q8H PRN (Reason: Nausea And Vomiting) albuterol sulfate 2.5 mg /3 mL (0.083 %) solution for nebulization 2.5 mg inhalation Q6H PRN (Reason: Wheezing) cyanocobalamin (vitamin B-12) 1,000 mcg Tablet 1,000 mcg PO DAILY albuterol sulfate 90 mcg/actuation HFA aerosol inhaler 2 puff inhalation Q4H PRN (Reason: Wheezing) ferrous sulfate 325 mg (65 mg iron) Tablet 325 mg PO DAILY oxycodone-acetaminophen 10-325 mg tablet 1 tab PO QID PRN (Reason: Pain) metoprolol succinate [Toprol XL] 25 mg tablet extended release 24 hr 25 mg PO DAILY Changed cholecalciferol (vitamin D3) [Vitamin D3] 25 mcg (1,000 unit) Capsule 1,000 unit PO DAILY PRN (Reason: vit d) 30 Days Qty: 30 3RF Discharge Orders: Discharge Order (Routine); Ordered 06/29/25 Ordered By: Lynette Carrasco Diet: Low salt diet Activity on Discharge: As tolerated Stand Alone Forms: Patient Portal Discharge page Print Language: Ukrainian Care Plan Goals: Completing antibiotic course for pneumonia -to complete Levaquin 5 day course for pneumonia PTOT -recommended home with A Health Concerns: See above Plan of Treatment: See above Assessment: See above Patient Instructions: Pneumonia (DC)
--- NOTE | 2025-06-29 13:52 | P.F2F_ITS ---
Service Date Service Date: 06/29/25 Encounter Date of encounter: 06/29/25 Reasons for Services Signs and symptoms assessed: physical therapy Reason for physical therapy: home safety and mobility, therapeutic exercises, restore joint function, gait/transfer training, assess need for DME, ADL training and energy conservation Reason for occupational therapy: therapeutic exercises Homebound: Leaving the home is medically contraindicated at this time without the asist of a device and/or another person due th the listed conditions above and below. Reason homebound: unsteady gait / fall risk, pain with ambulation and poor balance / fall risk Certification: Based on the above findings, I certify that this patient is confined to the home and needs intermittent retirement care, physical therapy and/or speech therapy, or continues to need occupational therapy. The patient is under my care, and I have initiated the establishment of the plan of care. The patient will be followed by a physician who will periodically review the plan of care. Time Spent With Patient Time: Total time managing care of this patient today ____ minutes.
--- NOTE | 2025-06-29 14:56 | MHC.CM.PN ---
Addendum entered by Suad Mccoy 06/30/25 14:26: CM MET WITH PT THIS MORNING, SHE SAYS SHE WAS ABLE TO REACH HER ROOMMATE WHO WILL BE COMING TO GET HER SOON. SHE UNDERSTANDS VNA SERVICES WERE NOT SECURED DUE TO INSURANCE CONTRACT LIMITATIONS, HOWEVER [facility] HAS NOT YET RESPONDED AND WILL NOT BE OPEN UNTIL TOMORROW. SHE KNOWS SHE WILL BE CALLED IF AN ACCEPTING VNA IS FOUND. CM DID SPEAK TO PTS PREVIOUS VNA AGENCY WHO REPORTED THEY HAD HER IN 2022, WHEN SHE HAD A DIFFERENT INSURANCE, THEY REPORT PT WAS OFTEN NON-COMPLIANT SO WOULD NOT BE ACCEPTED BACK TO SERVICE EVEN IF THEY WERE CONTRACTED WITH HER CURRENT INSURANCE CARRIER Addendum entered by Suad Mccoy 06/29/25 16:34: CM MET WITH PT AGAIN TO DISCUSS DCP PT UNDERSTANDS SHE IS MEDICALLY CLEARED, HOWEVER STATES SHE DOES NOT KNOW WHERE HER ROOMMATE IS STILL AND CANNOT GET INTO THE HOME SHE THEN GOES ON TO SAY SHE THINKS SHE MADE THE RN MAD AT HER AND SHE IS UPSET AND THEN MOTIONED IF CRYING FOR A SECOND SHE THEN WENT ONTO SAY HOW THE LAST TWO TIMES SHE WAS HERE, SHE WAS TESTED AND SPOKEN TO BY THE [place] WHO DECIDES IF PEOPLE ARE DRUG ADDICTS , SHE WAS UNABLE TO CLARIFY WHO SHE WAS REFERRING TO, BUT THEN SAID SHE WAS IN THE OTHER PART OF THE ED, WHERE THINGS WERE DONE TO HER CM ASKED IF SHE MEANT THE POD, AND SHE SAID YES AND THEN SHOWED CM BRUISES ON HER LEGS SHE INITIALLY SAYS ARE FROM THAT, BUT THEN SAYS LOOK, I HAVE BRUISES EVERYWHERE FROM MY CONDITION, THAT IS WHY I COME FOR TRANSFUSIONS CM REITERATED SHE IS MEDICALLY CLEARED AND REFUSING STR, SO WILL DC HOME PT REPORTS SHE WILL DEFINITELY BE ABLE TO GET HER HOUSE KEYS AND A RIDE FOR TOMORROW CM INFORMED HER TRANSPORT COULD BE ARRANGED, BUT HER KEYS WOULD HAVE TO BE OBTAINED SHE REPORTS UNDERSTANDING Addendum entered by Suad Mccoy 06/29/25 15:42: PT NOW STATING SHE WANTS TO DC HOME WITH SERVICES THERE ARE STILL NO ACCEPTING AGENCIES AND WE ARE UNLIKELY TO CONFIRM AN AGENCY BEFORE MONDAY WHEN THEY ARE ALL OPEN AND THE [facility] OFFICE [facility]AILABLE Addendum entered by Suad Mccoy 06/29/25 14:59: VNA REFERRAL MADE, HOWEVER, THE AGENCIES LISTED CONTRACTED WITH HER INSURANCE HAVE CONFIRMED THEY ARE NOT [facility] - [facility] HAS NOT RESPONDED AND TYPICALLY DOES NOT ON WEEKENDS OR HOLIDAYS Original Note: ANNA MARIE MET WITH PT TO DISCUSS DCP PT REPORTS SEVERAL REASONS SHE DOES NOT FEEL SHE CAN GO TODAY SHE SAYS SHE DOES NOT KNOW WHERE HER ROOMMATE IS THE ROOMMATE HAS HER CAR AND HOUSE TOHRNE SHE DID NOT KNOW SHE WAS GOING AND DOES NOT KNOW WHAT IS WRONG WITH HER SHE STARTED CRYING AT ONE POINT STATING SHE WILL BE RIGHT BACK IN THE ED ANNA MARIE HAS ALSO BEEN UNABLE TO SECURE VNA SERVICES FOR PT DUE TO HER INSURANCE PER DISCUSSION WITH MD, DC WILL BE HELD UNTIL TOMORROW
[2025-06-29 15:27] VITALS: BP 145/62; PULSE 80; RESP 16; TEMP 36.6; O2SAT 93
--- NOTE | 2025-06-29 17:36 | P.PNIM_ITS ---
Subjective Subjective Date of Service: 06/29/25 Interval History: Patient was deemed medically appropriate for discharge In the morning she said to the nurse that her roommate and her having disagreements and the roommate has a cat and did not want her coming home. Then at the bedside rounds she told she would like to go home with VNA, and diffused discharge with the nurse and the foster care case manager later in the afternoon. Patient is otherwise medically optimized, encephalopathy resolved with discontinuing morphine and has been on oxycodone for her pain with optimal response. She has been advised to be discharged with a short-term rehab however she is refusing adamantly She is also adamantly refusing to be discharged today Advised her about pros and cons of hospitalization and we will readdress this in the a.m. with the foster care case manager and the bedside RN Hence discharge has been canceled and she will continue hospitalization today. Physical Exam 2 Exam: Exam: General: AOx3, frail appearing Resp: CTA bilaterally CVS: S1, S2, RRR GI: +BS, NT, no distention Skin: Warm, dry Neuro: Motor grossly intact bilaterally Extremities: No edema Psych:tangential talk, poor insight Vital Signs: Vital Signs: Last Vital Signs Temp 97.9 F 06/29/25 15:27 Pulse 80 06/29/25 15:27 Resp 16 06/29/25 15:27 BP 145/62 H 06/29/25 15:27 Pulse Ox 93 06/29/25 15:27 O2 Del Method Room Air 06/29/25 15:27 O2 Flow Rate 3 06/28/25 15:45 BMI result Body Mass Index 31.2 Objective Data Active Medications Acetaminophen (Acetaminophen 325 Mg Tablet) 650 mg PO Q6H PRN PRN Reason: Pain, Mild 1-3,fever,headache Last Admin: 06/28/25 01:21 Dose: 650 mg Documented By: KEM Albuterol/Ipratropium (Albuterol/Iprat 2.5/0.5mg 3 Ml Ampul.Neb) 3 ml INHALE Q4H PRN PRN Reason: Shortness of Breath/Wheezing Alprazolam (Alprazolam 0.5 Mg Tablet) 0.5 mg PO TID PRN PRN Reason: Anxiety Last Admin: 06/29/25 12:42 Dose: 0.5 mg Documented By: SABRINA Benzonatate (Benzonatate 100 Mg Capsule) 100 mg PO TID PRN PRN Reason: Cough Calcium Carbonate (Calcium Carbonate 750 Mg Tab.Chew) 750 mg PO Q4H PRN PRN Reason: Heartburn Cyanocobalamin (Cyanocobalamin (Vitamin B-12) 1,000 Mcg Tablet) 1,000 mcg PO DAILY [facility] Last Admin: 06/29/25 08:12 Dose: 1,000 mcg Documented By: SABRINA Doxycycline Monohydrate (Doxycycline Monohydrate 100 Mg Capsule) 100 mg PO Q12H [facility] Last Admin: 06/29/25 12:38 Dose: 100 mg Documented By: SABRINA Ferrous Sulfate (Ferrous Sulfate 324 Mg Tablet.Dr) 324 mg PO DAILY [facility] Last Admin: 06/29/25 08:11 Dose: 324 mg Documented By: SABRINA Levofloxacin (Levofloxacin 750 Mg Tablet) 750 mg PO Q24H [facility] Magnesium Hydroxide (Milk Of Magnesia 30 Ml Oral.Susp) 30 ml PO DAILY PRN PRN Reason: Constipation Melatonin (Melatonin 3 Mg Tablet) 6 mg PO BEDTIME PRN PRN Reason: Insomnia Metoprolol Succinate (Metoprolol Succinate Er 25 Mg Tab.Er.24h) 25 mg PO DAILY [facility]; Protocol Last Admin: 06/29/25 08:11 Dose: 25 mg Documented By: SABRINA Ondansetron HCl (Ondansetron Odt 4 Mg Tab.Rapdis) 4 mg TRANSLINGU Q8H PRN PRN Reason: Nausea and Vomiting Ondansetron HCl (Ondansetron Hcl 4 Mg/2 Ml Vial) 4 mg IVPUSH Q4H PRN PRN Reason: Nausea and Vomiting Last Admin: 06/28/25 12:15 Dose: 4 mg Documented By: SABRINA Oxycodone HCl (Oxycodone Hcl Immed Release 5 Mg Tablet) 10 mg PO Q6H PRN PRN Reason: Breakthrough Pain Last Admin: 06/29/25 14:35 Dose: 10 mg Documented By: SABRINA Polyethylene Glycol (Polyethylene Glycol 3350 17 Gm Powd.Pack) 17 gm PO DAILY PRN PRN Reason: Constipation Sodium Chloride (0.9 % Sodium Chloride Flush 3 Ml Syringe) 3 ml IVFLUSH QSHIFT [facility] Last Admin: 06/29/25 08:12 Dose: 3 ml Documented By: SABRINA Vitamin D (Cholecalciferol (Vitamin D3) 25 Mcg Tablet) 25 mcg PO DAILY [facility] Last Admin: 06/29/25 08:11 Dose: 25 mcg Documented By: SABRINA Labs 06/29/25 06:46 06/28/25 06:50 Labs: Laboratory Results - last 24 hr 06/29/25 06:46 MCV 97.5 MCH 29.7 MCHC 30.5 L RDW 15.3 Plt Count 55 L MPV Not Reportable Absolute Nucleated RBC 0.000 Nucleated RBC % (auto) 0.0 Procalcitonin 0.05 Microbiology Microbiology Results: Microbiology 06/26/25 21:07 Blood Culture - Preliminary Blood - Venous No growth after 48 hours. 06/26/25 21:07 Blood Culture - Preliminary Blood - Venous No growth after 48 hours. Assessment and Plan (1) Polypharmacy: Status: Acute Plan Patient was deemed medically appropriate for discharge In the morning she said to the nurse that her roommate and her having disagreements and the roommate has a cat and did not want her coming home. Then at the bedside rounds she told she would like to go home with VNA, and diffused discharge with the nurse and the foster care case manager later in the afternoon. Patient is otherwise medically optimized, encephalopathy resolved with discontinuing morphine and has been on oxycodone for her pain with optimal response. She has been advised to be discharged with a short-term rehab however she is refusing adamantly She is also adamantly refusing to be discharged today Advised her about pros and cons of hospitalization and we will readdress this in the a.m. with the foster care case manager and the bedside RN Hence discharge has been canceled and she will continue hospitalization today. Acute encephalopathy secondary to polypharmacy, less likely sepsis-resolved with medication adjustments Morphine allergy-hallucinations 79-year-old female with a past medical history significant for asthma/COPD, anxiety, hypertension, ITP, HFrEF and chronic pain on opiates, who presented to the ED as her roommate called EMS with concerns of hallucinations (2/2 morphine SE). Per history mainly by the roommate going based off of H and P-it appears that the patient had a fall in April and her PCP trialed her on morphine which need for a side effect of hallucinations and was switched back to weeks ago for oxycodone. Likely in the setting of polypharmacy benzos and Oxy, she likely had an acute delirium/hallucination episodes. Patient was monitored for 2-1/2 days without incident. Sepsis workup thus far unremarkable-has chronic atelectatic changes in her CXR (was briefly treated with IV antibiotics which has been switched to Levaquin empirically as she reports allergy to penicillins and sulfa drugs) Asthma COPD -currently not having any exacerbation, continued on p.r.n. nebs and advised the patient to follow-up with outpatient palm Given encephalopathy POA and possible sepsis workup-was briefly treated with IV antibiotics and being discharged on Levaquin 5 day course anxiety: continue alprazolam asthma/COPD without acute exacerbation: prn nebs leg pain: PT eval- STR recommended, per PT eval: STR recommended but pt refuses, will go home with VNA chronic anemia and ITP: seen by Heme-Onc as outpt, scheduling outpt bone marrow biopsy, counts around baseline HTN, chronic HFrEF: metoprolol succinate, not in acute failure this hospitalization VTE ppx: SCDs; no heparin given low platelets Given that the patient is back to her baseline, even though she is being advised to go to a rehab, she would like to go home with VNA services. Patient advised about benzo and opioid polypharmacy and to be watchful. Advised about fall prevention. Total time managing care of this patient today: 35 minutes. Quality Stroke Does the patient have a stroke diagnosis?: No VTE Prior VTE?: No VTE Risk Level:: Medical - moderate - high VTE Device Contraindication: N/A - Device Ordered VTE Drug Contraindication: Treatment Not Indicated
[2025-06-29 19:43] VITALS: BP 146/60; PULSE 87; RESP 20; TEMP 36.4; O2SAT 92
[2025-06-29 23:58] VITALS: BP 109/58; PULSE 91; RESP 16; TEMP 36.7; O2SAT 93
[2025-06-30 04:00] VITALS: BP 133/70; PULSE 86; RESP 18; TEMP 36.7; O2SAT 97
[2025-06-30] MEDS: oxyCODONE HCl Immed Release 5 MG TABLET 10 MG PO (05:15)
--- NOTE | 2025-06-30 07:17 | P.PNIM_ITS ---
Subjective Subjective Date of Service: 06/30/25 Physical Exam 2 Vital Signs: Vital Signs: Last Vital Signs Temp 98.1 F 06/30/25 04:00 Pulse 86 06/30/25 04:00 Resp 18 06/30/25 04:00 BP 133/70 06/30/25 04:00 Pulse Ox 97 06/30/25 04:00 O2 Del Method Nasal Cannula 06/30/25 04:00 O2 Flow Rate 2 06/30/25 04:00 BMI result Body Mass Index 31.2 Objective Data Active Medications Acetaminophen (Acetaminophen 325 Mg Tablet) 650 mg PO Q6H PRN PRN Reason: Pain, Mild 1-3,fever,headache Last Admin: 06/28/25 01:21 Dose: 650 mg Documented By: KEM Albuterol/Ipratropium (Albuterol/Iprat 2.5/0.5mg 3 Ml Ampul.Neb) 3 ml INHALE Q4H PRN PRN Reason: Shortness of Breath/Wheezing Alprazolam (Alprazolam 0.5 Mg Tablet) 0.5 mg PO TID PRN PRN Reason: Anxiety Last Admin: 06/29/25 21:38 Dose: 0.5 mg Documented By: ANABELLA Benzonatate (Benzonatate 100 Mg Capsule) 100 mg PO TID PRN PRN Reason: Cough Calcium Carbonate (Calcium Carbonate 750 Mg Tab.Chew) 750 mg PO Q4H PRN PRN Reason: Heartburn Cyanocobalamin (Cyanocobalamin (Vitamin B-12) 1,000 Mcg Tablet) 1,000 mcg PO DAILY [facility] Last Admin: 06/29/25 08:12 Dose: 1,000 mcg Documented By: SABRINA Doxycycline Monohydrate (Doxycycline Monohydrate 100 Mg Capsule) 100 mg PO Q12H [facility] Last Admin: 06/29/25 22:01 Dose: 100 mg Documented By: ANABELLA Ferrous Sulfate (Ferrous Sulfate 324 Mg Tablet.Dr) 324 mg PO DAILY [facility] Last Admin: 06/29/25 08:11 Dose: 324 mg Documented By: SABRINA Levofloxacin (Levofloxacin 750 Mg Tablet) 750 mg PO Q24H [facility] Last Admin: 06/29/25 18:37 Dose: 750 mg Documented By: CAROLYN Magnesium Hydroxide (Milk Of Magnesia 30 Ml Oral.Susp) 30 ml PO DAILY PRN PRN Reason: Constipation Melatonin (Melatonin 3 Mg Tablet) 6 mg PO BEDTIME PRN PRN Reason: Insomnia Metoprolol Succinate (Metoprolol Succinate Er 25 Mg Tab.Er.24h) 25 mg PO DAILY [facility]; Protocol Last Admin: 06/29/25 08:11 Dose: 25 mg Documented By: SABRINA Ondansetron HCl (Ondansetron Odt 4 Mg Tab.Rapdis) 4 mg TRANSLINGU Q8H PRN PRN Reason: Nausea and Vomiting Ondansetron HCl (Ondansetron Hcl 4 Mg/2 Ml Vial) 4 mg IVPUSH Q4H PRN PRN Reason: Nausea and Vomiting Last Admin: 06/30/25 03:57 Dose: 4 mg Documented By: ANABELLA Oxycodone HCl (Oxycodone Hcl Immed Release 5 Mg Tablet) 10 mg PO Q6H PRN PRN Reason: Breakthrough Pain Last Admin: 06/30/25 05:15 Dose: 10 mg Documented By: ANABELLA Polyethylene Glycol (Polyethylene Glycol 3350 17 Gm Powd.Pack) 17 gm PO DAILY PRN PRN Reason: Constipation Sodium Chloride (0.9 % Sodium Chloride Flush 3 Ml Syringe) 3 ml IVFLUSH QSHIFT [facility] Last Admin: 06/29/25 23:07 Dose: 3 ml Documented By: ANABELLA Vitamin D (Cholecalciferol (Vitamin D3) 25 Mcg Tablet) 25 mcg PO DAILY [facility] Last Admin: 06/29/25 08:11 Dose: 25 mcg Documented By: SABRINA Labs 06/29/25 06:46 06/28/25 06:50 Labs: Laboratory Results - last 24 hr 06/29/25 06:46 MCV 97.5 MCH 29.7 MCHC 30.5 L RDW 15.3 Plt Count 55 L MPV Not Reportable Absolute Nucleated RBC 0.000 Nucleated RBC % (auto) 0.0 Procalcitonin 0.05 Quality Stroke Does the patient have a stroke diagnosis?: No VTE Prior VTE?: No VTE Risk Level:: Medical - moderate - high VTE Device Contraindication: N/A - Device Ordered VTE Drug Contraindication: Treatment Not Indicated
[2025-06-30 07:23] VITALS: BP 133/60; PULSE 72; RESP 20; TEMP 36.9; O2SAT 96
[2025-06-30] MEDS: Ferrous Sulfate 324 MG TABLET.DR PO (08:12)
[2025-06-30] MEDS: Metoprolol Succinate ER 25 MG TAB.ER.24H PO (08:12)
[2025-06-30] MEDS: 0.9 % Sodium Chloride Flush 3 ML SYRINGE IVFLUSH (08:14)
[2025-06-30 08:48] LABS: Hematocrit 32.4 % (37.0-47.0); Hemoglobin 9.5 g/dl (12.0-16.0); Imm Gran Abs Auto 0.01 X10*3/uL (0.00-0.03); Imm Gran Pct Auto 0.1 % (0.0-0.4); Lymphocytes Absolute Auto 1.0 X10*3/uL (1.2-4.9); Mean Corpuscular HGB Conc 29.3 g/dl (31.0-35.0); Mean Corpuscular Hemoglobin 29.5 pg (27.0-33.0); Mean Corpuscular Volume 100.6 fL (80.0-98.0); NRBC Abs Auto 0.000 X10*3/uL (0.0-0.012); NRBC Pct Auto 0.0 /100WBC (0.0-0.2); Platelet Count 51 X10*3/uL (160-400); Red Blood Count 3.22 X10*6/uL (4.20-5.50); White Blood Count 7.3 X10*3/uL (4.8-10.8)
[2025-06-30 09:10] LABS: Alanine Aminotransferase 6 U/L (0-31); Albumin Level 3.5 g/dL (3.5-5.0); Alkaline Phosphatase 47 U/L (39-117); Anion Gap 12 (12-20); Aspartate Amino Transferase 18 U/L (5-31); Blood Urea Nitrogen 13 mg/dL (9-16); Calcium 8.3 mg/dL (8.4-10.2); Carbon Dioxide 28 mmol/L (22-29); Chloride 109 mmol/L (96-108); Creatinine Clr Calc Pharmacy 68.1; Estimated Glomerular Filt Rate > 60; Magnesium 1.8 mg/dL (1.6-2.6); Potassium 4.0 mmol/L (3.3-5.1); Sodium 145 mmol/L (135-145); Total Protein 5.3 g/dL (6.5-8.0)
--- NOTE | 2025-06-30 09:59 | PM.DS ---
DS: Providers Provider Date of Service: 06/30/25 Date of admission: 06/27/25 05:52 Date of discharge: 06/30/25 Primary care physician: Unknown Physician DS: Diagnosis Discharge Diagnosis (1) Polypharmacy: Status: Acute DS: Summary Hospital Course Hospital Course: Acute encephalopathy secondary to polypharmacy, less likely sepsis-resolved with medication adjustments Morphine allergy-hallucinations 79-year-old female with a past medical history significant for asthma/COPD, anxiety, hypertension, ITP, HFrEF and chronic pain on opiates, who presented to the ED as her roommate called EMS with concerns of hallucinations (2/2 morphine SE). Per history mainly by the roommate going based off of H and P-it appears that the patient had a fall in April and her PCP trialed her on morphine which need for a side effect of hallucinations and was switched back to weeks ago for oxycodone. Likely in the setting of polypharmacy benzos and Oxy, she likely had an acute delirium/hallucination episodes. Patient was monitored for 2-1/2 days without incident. Sepsis workup thus far unremarkable-has chronic atelectatic changes in her CXR (was briefly treated with IV antibiotics which has been switched to Levaquin empirically as she reports allergy to penicillins and sulfa drugs) Asthma COPD -currently not having any exacerbation, continued on p.r.n. nebs and advised the patient to follow-up with outpatient [facility] Given encephalopathy POA and possible sepsis workup-was briefly treated with IV antibiotics and being discharged on Levaquin 5 day course anxiety: continue alprazolam asthma/COPD without acute exacerbation: prn nebs leg pain: PT eval- STR recommended, per PT eval: STR recommended but pt refuses, will go home with VNA chronic anemia and ITP: seen by Heme-Onc as outpt, scheduling outpt bone marrow biopsy, counts around baseline HTN, chronic HFrEF: metoprolol succinate, not in acute failure this hospitalization VTE ppx: SCDs; no heparin given low platelets Given that the patient is back to her baseline, even though she is being advised to go to a rehab, she would like to go home with VNA services. Patient advised about benzo and opioid polypharmacy and to be watchful. Advised about fall prevention. Status at Discharge Functional status at discharge: uses cane/walker Time Attestation Discharge Coordination Time (in mins): 35 Quality: Safe Use of Opioids Does Pt have an Active Cancer Diagnosis on the Problem List?: No Quality: Stroke Does the patient have a stroke diagnosis?: No Physical Exam Vital Signs: Vital Signs: Last Vital Signs Temp 98.5 F 06/30/25 07:23 Pulse 72 06/30/25 07:23 Resp 20 06/30/25 07:23 BP 133/60 06/30/25 07:23 Pulse Ox 96 06/30/25 07:23 O2 Del Method Nasal Cannula 06/30/25 07:23 O2 Flow Rate 2 06/30/25 07:23 BMI result Body Mass Index 31.2 DS: Data Data Completed and Pending Completed studies during hospitalization [Text1]: Procedures Destruction of Ascending Colon, Via Natural or Artificial Opening Endoscopic (06/12/24) Destruction of Cecum, Via Natural or Artificial Opening Endoscopic (01/27/22) Destruction of Duodenum, Via Natural or Artificial Opening Endoscopic (06/12/24) Excision of Ascending Colon, Via Natural or Artificial Opening Endoscopic, Diagnostic (06/12/24) Excision of Duodenum, Via Natural or Artificial Opening Endoscopic, Diagnostic (06/12/24) Excision of Rectum, Via Natural or Artificial Opening Endoscopic, Diagnostic (06/12/24) Excision of Sigmoid Colon, Via Natural or Artificial Opening Endoscopic, Diagnostic (06/12/24) Excision of Stomach, Pylorus, Via Natural or Artificial Opening Endoscopic, Diagnostic (06/12/24) Excision of Transverse Colon, Via Natural or Artificial Opening Endoscopic, Diagnostic (06/12/24) Transfusion of Nonautologous Red Blood Cells into Peripheral Vein, Percutaneous Approach (06/12/24) Labs on day of discharge: Laboratory Results - last 24 hr 06/30/25 08:26 WBC 7.3 RBC 3.22 L Hgb 9.5 L Hct 32.4 L MCV 100.6 H MCH 29.5 MCHC 29.3 L RDW 15.4 Plt Count 51 L MPV Not Reportable Immature Gran % (Auto) 0.1 Neut % (Auto) 73.3 H Lymph % (Auto) 13.7 L Sawyer % (Auto) 10.3 Eos % (Auto) 1.8 Baso % (Auto) 0.8 Lymph # (Auto) 1.0 L Sawyer # (Auto) 0.8 Eos # (Auto) 0.1 Baso # (Auto) 0.1 Abs Immat Gran (auto) 0.01 Absolute Neuts (auto) 5.4 Absolute Nucleated RBC 0.000 Nucleated RBC % (auto) 0.0 Sodium 145 Potassium 4.0 Chloride 109 H Carbon Dioxide 28 Anion Gap 12 BUN 13 Creatinine 0.66 Estim Creat Clear Calc 68.1 Estimated GFR > 60 Random Glucose 95 Calcium 8.3 L Magnesium 1.8 Total Bilirubin 0.4 AST 18 ALT 6 Alkaline Phosphatase 47 Total Protein 5.3 L Albumin 3.5 Preliminary micro results at discharge 06/26/25 21:07 Blood Culture - Preliminary Blood - Venous No growth after 48 hours. 06/26/25 21:07 Blood Culture - Preliminary Blood - Venous No growth after 48 hours. Discharge Plan Discharge Anticipated Discharge Date/Time: 06/29/25 13:35 Patient Disposition: Home Health Service Discharge Diagnosis: Altered mental status secondary to pneumonia, resolved Referrals: Physician,Unknown J [Primary Care Provider, Medical] - 1 Week Discharge Medications: New benzonatate 100 mg Capsule 100 mg PO TID PRN (Reason: Cough) 10 Days Qty: 10 0RF levofloxacin 500 mg tablet 500 mg PO DAILY 5 Days Qty: 5 0RF Continued alprazolam 0.5 mg tablet 1 tab PO TID PRN (Reason: Anxiety) ondansetron HCl 4 mg tablet 1 tab PO Q8H PRN (Reason: Nausea And Vomiting) albuterol sulfate 2.5 mg /3 mL (0.083 %) solution for nebulization 2.5 mg inhalation Q6H PRN (Reason: Wheezing) cyanocobalamin (vitamin B-12) 1,000 mcg Tablet 1,000 mcg PO DAILY albuterol sulfate 90 mcg/actuation HFA aerosol inhaler 2 puff inhalation Q4H PRN (Reason: Wheezing) ferrous sulfate 325 mg (65 mg iron) Tablet 325 mg PO DAILY oxycodone-acetaminophen 10-325 mg tablet 1 tab PO QID PRN (Reason: Pain) metoprolol succinate [Toprol XL] 25 mg tablet extended release 24 hr 25 mg PO DAILY Changed cholecalciferol (vitamin D3) [Vitamin D3] 25 mcg (1,000 unit) Capsule 1,000 unit PO DAILY PRN (Reason: vit d) 30 Days Qty: 30 3RF Discharge Orders: Discharge Order (Routine); Ordered 10/13/25 Ordered By: Lynette Aleti Diet: Low salt diet Activity on Discharge: As tolerated Stand Alone Forms: Patient Portal Discharge page Print Language: [place] Care Plan Goals: Completing antibiotic course for pneumonia -to complete Levaquin 5 day course for pneumonia PTOT -recommended home with VNA Health Concerns: See above Plan of Treatment: See above Assessment: See above Patient Instructions: Pneumonia (DC)
[2025-07-02 05:04] LABS: Strep Pneumo Ag urine Not Detected (Not Detected)
== END 2025-06-30 10:56 | disposition home health service (06) | DRG 871 ==
LOC: HO.ED 06-27 05:30 → HO.EDOVER 06-27 06:25 → HO.IMC 06-27 16:52 → HO.EDOVER 06-27 17:47 → HO.IMC 06-27 19:40
PROVIDERS: Family Medicine; Physician Assistant Medical; Admitting Provider Hospitalist; Emergency Provider Emergency Medicine; Visit Provider Student in an Organized Health Care Education/Training Program
DX: A41.9 Sepsis, unspecified organism (principal); G92.8 Other toxic encephalopathy; J44.0 Chronic obstructive pulmonary disease with (acute) lower respiratory infection; D69.3 Immune thrombocytopenic purpura; I50.22 Chronic systolic (congestive) heart failure; T50.915A Adverse effect of multiple unspecified drugs, medicaments and biological substances, initial encounter; I11.0 Hypertensive heart disease with heart failure; F41.9 Anxiety disorder, unspecified; Z20.822 Contact with and (suspected) exposure to COVID-19; Z87.891 Personal history of nicotine dependence; Z79.899 Other long term (current) drug therapy
CPT/HCPCS: 36415; 70450; 71045; 80048; 80053; 80307; 81001; 81003; 82803; 82947; 83605; 83735; 84145; 84484; 85025; 85027; 85379; 85610; 87040; 87449; 87502; 87635; 87640; 87641; 87899; 93005; 97162; 99222; 99285; J0456; J0696; J1171; J2270; J2405

== ENCOUNTER → 2025-06-26 19:27 | Outpatient (BNV) | payer OTHER, SELFPAY | PROVIDERS: Admitting Provider Hospitalist; Emergency Provider Emergency Medicine; Visit Provider Internal Medicine Cardiovascular Disease | DX: I25.2 Old myocardial infarction (principal) | CPT/HCPCS: 93010 ==

== ENCOUNTER → 2025-06-26 22:37 | Outpatient (BNV) | payer OTHER, SELFPAY | PROVIDERS: Emergency Provider Emergency Medicine; Visit Provider Radiology Diagnostic Radiology | DX: R41.82 Altered mental status, unspecified (principal) | CPT/HCPCS: 70450 ==

== ENCOUNTER → 2025-06-27 03:01 | Outpatient (BNV) | payer OTHER, SELFPAY | PROVIDERS: Emergency Provider Emergency Medicine; Visit Provider Radiology Diagnostic Radiology | DX: R91.8 Other nonspecific abnormal finding of lung field (principal) | CPT/HCPCS: 71045 ==

== ENCOUNTER → 2025-06-27 05:52 | Outpatient (BNV) | payer OTHER, SELFPAY | PROVIDERS: Admitting Provider Hospitalist; Emergency Provider Emergency Medicine; Visit Provider Family Medicine | DX: Z79.899 Other long term (current) drug therapy (principal) | CPT/HCPCS: 99232 ==

== ENCOUNTER 2025-07-30 03:41 | Emergency (ER) | payer OTHER, SELFPAY ==
--- NOTE | ~2025-07-30 | CT_ITS ---
CLINICAL HISTORY: diverticultiis vs pancolitis, risk for cdiff CT abdomen and pelvis with contrast Comparison: CT/VT/SR - CT ABDOMEN PELVIS WITHOUT THEN WITH IV CONTRAST - 05/30/25 14:[address]/REG/SR - CT ABDOMEN PELVIS WITH IV CONTRAST - 10/12/22 18:05 EST Findings: The heart is enlarged in size. 12 mm right middle lobe nodule is seen adjacent to scarring (axial image 5 of series 3), unchanged since 10/12/2022 and likely representing nodular scar. Small layering gallstones are present. 1.2 cm left adrenal gland nodule is unchanged since 10/12/2022. Couple right parapelvic cysts are seen measuring up to 1.9 cm. 1.6 cm and 1.2 cm simple left renal cortical cysts are present. Multiple left parapelvic cysts are also seen measuring up to 3.1 cm, similar to prior exams. Additional subcentimeter left renal hypodensities are too small to characterize. The liver, pancreas, spleen, and right adrenal gland appear within normal limits. Sigmoid colonic diverticulosis is present without evidence of diverticulitis. There is no evidence of bowel obstruction. The appendix is not well-visualized. There is no pneumoperitoneum. The urinary bladder is partially distended. There is no adenopathy. Trace pelvic ascites is seen. Severe degenerative changes are seen in the lumbar spine and bilateral femoroacetabular joints. No acute osseous abnormality is identified. No aggressive lytic or blastic lesion is seen. IMPRESSION: 1. Sigmoid colonic diverticulosis without evidence of diverticulitis. 2. Cholelithiasis. 3. Trace pelvic ascites. 4. Other findings as described. This document has been electronically signed by: Rachana Logan on 07/30/2025 07:01:35
[2025-07-30 03:47] VITALS: BP 146/78; BP 166/57; PULSE 100; PULSE 88; RESP 20; TEMP 37.4; O2SAT 96; BMI 23.3
--- NOTE | 2025-07-30 03:47 | ED.GENADULT ---
HPI - General Adult General Chief complaint: Nausea/Vomiting/Diarrhea Stated complaint: nausea, vomiting Time Seen by Provider: 07/30/25 03:47 Source: patient Limitations: no limitations History of Present Illness ED Provider: Laisha Loco PA-C HPI narrative: 79-year-old female COPD/emphysema, chronic pain on opiate therapy, anxiety on xanax, hypertension , with recent hospital admission June 27 for pneumonia with a delirium secondary to polypharmacy, presents with nausea vomiting diarrhea x4 days. Associated abdominal discomfort across lower abdomen, patient has a unable to describe the nature of her discomfort. She states she is having copious amounts of diarrhea, throughout the day. She has not been able to tolerate oral intake. Denies fever. Denies sick contacts with similar symptoms. Related Data Home Medications ?Medication ?Instructions ?Recorded ?Confirmed alprazolam 0.5 mg tablet 1 tab PO TID PRN Anxiety 12/07/20 06/27/25 albuterol sulfate 2.5 mg/3 mL 2.5 mg inhalation Q6H PRN Wheezing 01/27/22 06/27/25 (0.083 %) solution for nebulization cyanocobalamin (vitamin B-12) 1,000 mcg PO DAILY 01/27/22 06/27/25 1,000 mcg tablet metoprolol succinate 25 mg 25 mg PO DAILY 05/17/22 06/27/25 tablet,extended release 24 hr (Toprol XL) ondansetron HCl 4 mg tablet 1 tab PO Q8H PRN Nausea And 12/07/22 06/27/25 Vomiting albuterol sulfate 90 mcg/actuation 2 puff inhalation Q4H PRN Wheezing 06/12/24 06/27/25 aerosol inhaler ferrous sulfate 325 mg (65 mg 325 mg PO DAILY 04/27/25 06/27/25 iron) tablet oxycodone-acetaminophen 10 mg-325 1 tab PO QID PRN Pain 05/30/25 06/27/25 mg tablet Previous Rx's ?Medication ?Instructions ?Recorded benzonatate 100 mg capsule 100 mg PO TID PRN Cough 10 days 06/29/25 #10 caps cholecalciferol (vitamin D3) 25 1,000 unit PO DAILY PRN vit d 30 06/29/25 mcg (1,000 unit) capsule (Vitamin days #30 caps D3) levofloxacin 500 mg tablet 500 mg PO DAILY 5 days #5 tabs 06/29/25 Allergies Allergy/AdvReac Type Severity Reaction Status Date / Time amoxicillin Allergy Unknown Hives Verified 07/30/25 03:49 Penicillins (PENICILLINS) Allergy Unknown Hives Verified 07/30/25 03:49 Sulfa (Sulfonamide Allergy Unknown Hives Verified 07/30/25 03:49 Antibiotics) (SULFA (SULFONAMIDE ANTIBIOTICS)) Review of Systems Review of Systems: Yes all other systems are reviewed and are negative Constitutional: Constitutional: Denies fatigue, Denies fever(s), Reports malaise and Reports poor appetite Cardiovascular: Cardiovascular: Denies chest pain and Denies dyspnea Respiratory: Respiratory: Denies cough and Denies dyspnea Gastrointestinal: Gastrointestinal: Reports abdominal pain, Reports diarrhea, Reports nausea and Reports vomiting Endocrine: Endocrine: Denies fatigue PMFSH Past Medical History Attestation statement: The following information was validated with the patient. Medical History Heme positive stool Chronic ITP (idiopathic thrombocytopenia) Ischemic cardiomyopathy Ascending aorta dilatation Atherosclerotic cardiovascular disease Non-rheumatic mitral regurgitation Non-rheumatic aortic regurgitation Non-rheumatic aortic stenosis Cardiomyopathy COPD exacerbation Heart failure with reduced ejection fraction Acute on chronic systolic (congestive) heart failure COPD (chronic obstructive pulmonary disease) Thrombocytopenia Osteoarthritis GERD (gastroesophageal reflux disease) Anxiety Asthma Surgical History Hx of colonoscopy Hx of endoscopy Hx of oophorectomy Hx of hysterectomy Hx of total knee replacement Family History Family History Sister Lung cancer Lupus Sister Lung cancer Maternal Aunt Lupus Social History Social History Household Members: Other Household Members Other:: roommate Housing: Condominium Are you a primary acute care assistant to a significant other at home: No Do you presently have visiting nurse or other home services: No Alcohol intake: current Alcohol intake frequency: holidays/special occasions only Comment: patient refusing alarms Patient Tobacco Use Status: Former Tobacco user Second Hand Smoke Exposure: No Substance Use Type: Unknown Advance Directives Date on File: 03/20/23 service: No Current occupational status: employed Physical Exam ED Vital Signs: Vital Signs - 24 hr 07/30/25 03:47 07/30/25 05:43 07/30/25 07:27 Temperature 99.3 F 98.2 F Pulse Rate 88 87 91 Respiratory Rate 20 16 16 Blood Pressure 166/57 H 157/59 H 111/58 L Pulse Oximetry 96 98 91 L Oxygen Delivery Method Nasal Cannula Room Air Room Air 07/30/25 11:23 07/30/25 12:34 Temperature 97.9 F Pulse Rate 86 86 Respiratory Rate 16 16 Blood Pressure 104/45 L 104/45 L Pulse Oximetry 96 96 Oxygen Delivery Method Room Air Room Air BMI result Body Mass Index 23.3 Const Other: Alert well-appearing Orientation/consciousness: patient oriented x3 Resp Effort & Inspection: normal respiratory effort Cardio Other: Normal peripheral perfusion GI Other: Abdomen is soft, somewhat tense with palpation across entire lower abdomen, minimal involuntary guarding, overall nonfocal exam Skin Other: Warm dry no rash Neuro Other: Ambulates with her walker, steady gait to the bathroom General: patient oriented x3, gait normal, no focal motor deficits and CN's II-XI intact bilaterally Psych Other: Cooperative Course Course Course Narrative: CT scan and final disposition pending of the time of sign-out Reevaluation(s) Reevaluation #1: 11:45 AM 07/30/2025 (Dr. Hi Tellez): I, Dr. Tellez have take concerns with the patient I am not sure over the care of this patient, I reviewed pertinent blood work and imaging, re-evaluated the patient when appropriate. Patient re-evaluated, discussed CT imaging, patient also brought up the fact that she is thrombocytopenic this is a chronic issue and I did discuss with her to follow up with her mechanical artist and there was no indication for platelet transfusion. I reviewed her platelet numbers and she is within her average range, there was no risk for bleeding this is no indication for platelet transfusion. 12:19 PM 07/30/2025 (Dr. Hi Tellez): After my initial discussion nurse came in to speak to the patient about her upcoming discharge from the emergency department, patient had significant anxiety regarding needing a platelet transfusion, which became the focus of our discussion, I have tried to discuss with the patient that she does not require a platelet transfusion and she is not very happy with that decision she states she knows her body and that she is concerned that she had low blood pressure due to low platelets, I have discussed with the patient that her blood pressure is actually well with a map of 65, she is calling to the walk-in clinic because she states this is where her doctor is and her doctor told her to come to the ER. I am not sure I can change patient's mind at this juncture I went over her blood work, her imaging, the care she received in the emergency department, I addressed her blood pressure concerns however I am not going to be transfusing platelets in this clinical situation which is not making her content with the care she received. Medications Administered Discontinued Medications Generic Name Dose Route Start Last Admin Trade Name Freq PRN Reason Stop Dose Admin Alprazolam 0.5 mg 07/30/25 05:49 07/30/25 06:06 Alprazolam 0.5 Mg Tablet PO 07/30/25 05:50 0.5 mg ONCE ONE Administration Sodium Chloride 500 mls @ 500 mls/hr 07/30/25 03:46 07/30/25 05:30 Ns IV 07/30/25 04:45 Infused .Q1H ONE Infusion Iohexol 85 ml 07/30/25 05:56 07/30/25 05:57 Iohexol 350 Mg/Ml 100 Ml Infus..Btl IV 07/30/25 05:57 85 ml ONCE ONE Administration Ondansetron HCl 4 mg 07/30/25 03:46 07/30/25 04:17 Ondansetron Hcl 4 Mg/2 Ml Vial IVPUSH 07/30/25 03:47 4 mg ONCE ONE Administration Oxycodone HCl 10 mg 07/30/25 05:34 07/30/25 05:45 Oxycodone Hcl Immed Release 5 Mg Tablet PO 07/30/25 05:35 10 mg ONCE ONE Administration Medical Decision Making Medical Decision Making MDM Narrative: 79-year-old female COPD/emphysema, chronic pain on opiate therapy, anxiety on xanax, hypertension , with recent hospital admission June 27 for pneumonia with a delirium secondary to polypharmacy, presents with nausea vomiting diarrhea x4 days. Associated abdominal discomfort across lower abdomen, patient has a unable to describe the nature of her discomfort. She states she is having copious amounts of diarrhea, throughout the day. She has not been able to tolerate oral intake. Denies fever. Denies sick contacts with similar symptoms. Problem: Chronic benzodiazepine and opiate therapy, age, recent hospital admission requiring antibiotics History: Per patient I have considered the following differential diagnoses: Diverticulitis, nagel colitis/C diff, other infectious diarrhea, viral gastroenteritis, Plan: She does have some degree of discomfort on my abdominal exam, she also has risk factors for C diff given her recent admission, obtaining a CT scan. In addition to screening labs, adding on C diff testing and GI panel. We will be giving gentle IV fluid therapy with Zofran. The patient is asking for her scheduled pain medication and her Xanax. In chart review, from her recent admission, there was concern for polypharmacy, she developed delirium, I can see from her [employer] that she is still prescribed 10mg Percocet and 0.5 milligrams Xanax, she just filled prescriptions the end of June on July 11, both quantities were significant. I have independently reviewed the following tests: Labs: No overall leukocytosis, left shift noted, chronic thrombocytopenia, no overt anemia, no electrolyte abnormality, urine not infected, viral panel negative CT abdomen and pelvis: Is pending at the time of sign-out Differential Diagnosis Differential Diagnoses: The differential diagnosis associated with the presentation includes See medical decision-making Admission/Observation Consideration of admission/observation: Escalation of care including admission/observation considered Lab Data MDM Lab Attestation statement: I reviewed the patient's lab results. 07/30/25 04:13 07/30/25 04:13 Labs: Lab Results 07/30/25 07/30/25 07/30/25 Range/Units 04:07 04:13 04:54 WBC 10.3 (4.8-10.8) X10*3/uL RBC 3.55 L (4.20-5.50) X10*6/uL Hgb 10.8 L (12.0-16.0) g/dl Hct 33.5 L (37.0-47.0) % MCV 94.4 (80.0-98.0) fL MCH 30.4 (27.0-33.0) pg MCHC 32.2 (31.0-35.0) g/dl RDW 16.4 H (11.0-16.0) % Plt Count 72 L D (160-400) X10*3/uL MPV Not Reportable Immature Gran % (Auto) 0.6 H (0.0-0.4) % Neut % (Auto) 80.8 H (45-73) % Lymph % (Auto) 9.4 L (20-40) % [place] % (Auto) 8.1 (2-11) % Eos % (Auto) 0.5 (0-4) % Baso % (Auto) 0.6 (0-2) % Lymph # (Auto) 1.0 L (1.2-4.9) X10*3/uL [place] # (Auto) 0.8 (0.1-1.2) X10*3/uL Eos # (Auto) 0.1 (0.0-0.4) X10*3/uL Baso # (Auto) 0.1 (0.0-0.2) X10*3/uL Abs Immat Gran (auto) 0.06 H (0.00-0.03) X10*3/uL Absolute Neuts (auto) 8.3 (2.0-8.3) x10*3/uL Absolute Nucleated RBC 0.000 (0.0-0.012) X10*3/uL Nucleated RBC % (auto) 0.0 (0.0-0.2) /100WBC Smear Tech's Comments VERIFIED Sodium 140 (135-145) mmol/L Potassium 3.9 (3.3-5.1) mmol/L Chloride 107 (96-108) mmol/L Carbon Dioxide 21 L (22-29) mmol/L Anion Gap 16 (12-20) BUN 13 (9-16) mg/dL Creatinine 0.63 (0.5-1.4) mg/dL Estim Creat Clear Calc 64.0 Estimated GFR > 60 Random Glucose 84 (60-115) mg/dL Calcium 8.8 D (8.4-10.2) mg/dL Magnesium 1.7 (1.6-2.6) mg/dL Total Bilirubin 1.0 (0.0-1.0) mg/dL AST 35 H (5-31) U/L ALT 13 (0-31) U/L Alkaline Phosphatase 50 (39-117) U/L Total Protein 6.3 L (6.5-8.0) g/dL Albumin 4.2 (3.5-5.0) g/dL Lipase 18 (8-78) U/L Urine Color Yellow Urine Appearance Clear Urine pH 6.0 (5.0-9.0) Ur Specific [place] 1.025 (1.005-1.025) Urine Protein 30 (1+) H (Neg-Trace) mg/dL Urine Glucose (UA) Negative (Negative) mg/dL Urine Ketones >=80 (Negative) mg/dL Urine Blood Small (1+) H (Negative) Urine Nitrite Negative (Negative) Ur Leukocyte Esterase Negative (Negative) Urine RBC 0-2 (0-2) /HPF Urine WBC 0-5 (0-5) /HPF Ur Squamous Epith Cells 0-2 (0-2) /HPF Urine Bacteria 1+ (None Seen) Hyaline Casts 0-2 (0-2) /LPF COVID-19 ([facility]) Negative (Negative) COVID-19 Clin Com See Note Influenza Type A ([facility]) Negative (Negative) Influenza Type B ([facility]) Negative (Negative) Influenza A & B Note See Note Discharge Plan Discharge Clinical Impression: Abdominal pain, Nausea & vomiting, Diarrhea, Chronic ITP (idiopathic thrombocytopenia) Patient Disposition: Home, Self-Care Additional Instructions: Your blood work overall was reassuring accept as below, CT scan without any evidence for infection or obstruction. Your blood work did not reveal any evidence for dehydration Your platelets are 72, your platelets actually better now than they have been in the past few months, as discussed there is no indication for platelet transfusion in the emergency department at this time You can follow up with your primary care provider and Dr. Vega for further management Prescriptions: No Action alprazolam 0.5 mg tablet 1 tab PO TID PRN (Reason: Anxiety) ondansetron HCl 4 mg tablet 1 tab PO Q8H PRN (Reason: Nausea And Vomiting) albuterol sulfate 2.5 mg /3 mL (0.083 %) solution for nebulization 2.5 mg inhalation Q6H PRN (Reason: Wheezing) cyanocobalamin (vitamin B-12) 1,000 mcg Tablet 1,000 mcg PO DAILY benzonatate 100 mg Capsule 100 mg PO TID PRN (Reason: Cough) 10 Days Qty: 10 0RF cholecalciferol (vitamin D3) [Vitamin D3] 25 mcg (1,000 unit) Capsule 1,000 unit PO DAILY PRN (Reason: vit d) 30 Days Qty: 30 3RF levofloxacin 500 mg tablet 500 mg PO DAILY 5 Days Qty: 5 0RF albuterol sulfate 90 mcg/actuation HFA aerosol inhaler 2 puff inhalation Q4H PRN (Reason: Wheezing) ferrous sulfate 325 mg (65 mg iron) Tablet 325 mg PO DAILY oxycodone-acetaminophen 10-325 mg tablet 1 tab PO QID PRN (Reason: Pain) metoprolol succinate [Toprol XL] 25 mg tablet extended release 24 hr 25 mg PO DAILY Referrals: Name,MD Joseph [Primary Care Provider, Internal Medicine] - 1 week Clinical Impression: Diarrhea; Nausea & vomiting; Abdominal pain Interventions: ED Discharge Assessment Last Done: 07/30/25 12:34 Discharge Date/Time: 07/30/25 12:56 Print Language: Cypriot
[2025-07-30 04:32] LABS: COVID-19 Test Negative (Negative); IDNOW Serial# 58CA691E
--- OUTSIDE RECORDS SUMMARY | 2025-07-30 04:34 | XMS_ITS ---
GENERIC EXTERNAL DATA DEPARTMENT Provider, Generic External Data 05/28/2025 Telephone [facility] [place] [address] Joseph Magana MD call back request 05/28/2025 Telephone [facility] [place] [address] Kaitlynn Landrum, RN Reschedule PLASTIC SEWER Tele appt 05/23/[address] [address] Kaitlynn Landrum, RN NCNS PLASTIC SEWER Renewal appt today 05/18/2025 Orders Only [facility] External Provider, [facility] 05/16/2025 Telephone [facility] [address] [place] [address] Irena Pacheco RN 05/13/[address] [address] Joseph Magana MD 05/12/2025 Refill [facility] [address] [place] [address] Joseph Magana MD Chronic pain syndrome 05/07/2025 2:00 PM EDT Telemedicine [address] [address] Joseph Magana MD Atypical pneumonia (Primary Dx); Hypoxia 05/07/2025 Travel 05/06/2025 Refill [facility] [address] [place] [address] Joseph Magana MD Chronic pain syndrome; Chronic pain syndrome 05/06/[address] [address] Yojana Cole [place] CHARTPREP from Last 3 Months Immunizations Immunization Administration Dates Next Due Influenza Whole 07/04/2006 Influenza injectable quadriv alent IIV4 with preservative 08/17/2016 Influenza injectable quadrivalent preservative f ree 10/20/2015 Influenza, IIV3, injectable 06/21/2012, 1 Influenza, trivalent, adjuvanted 06/21/2012,12/0 04/2011 Moderna Covid-19 Vaccine 12+ 11/01/2021,10/04/19 22 Pneumococcal [...] Info) Description 08/29/2025 9:30 AM EST Telemedicine [facility] [address] [place] [address] Kaitlynn Landrum RN 09/17/2025 11:15 AM EST Office Visit [address] [address] Name, MD Joseph [address] [place] [address] Health Maintenance Due Date Last Done Comments Zoster Vaccines (1 of 2) 1994 RSV Patients and Patients Aged 60 years or older (1 - 1-dose 75+ series) 11/18/2019 SDOH Screening 03/27/2024 03/27/2023 COVID-19 Vaccine ( season) 2025 11/01/2021, 10/04/2021 Influenza Vaccine (#1) 2025 6, 10/20/2015, 06/21/2012, Additional history exists Alcohol/Substance Use Screening 04/04/2026 04/04/2025 Depression Screening 04/04/2026 04/04/2025, 07/18/20 25 Tobacco Screening 04/04/2026 04/04/2025 DTaP/Tdap/Td Vaccines [...] 1 VIEW Routine 05/18/2025 3:16 AM EDT from Last 3 Months Results * (ABNORMAL) POCT Hemoglobin (06/17/2025 1:53 PM EDT) [facility] Hemoglobin 8.7(A) 12.0 - 15.0 QC Media Lot # [id number] Lot# Expiration Date Blood 06/17/2025 1:53 PM EDT Joseph Name POINT OF CARE TEST ENTER/EDIT OR DERABLES Final Result * High Sensitivity Troponin I (05/30/2025 3:37 PM EDT) [facility] TROPONIN I HIGH SENSITIVITY 12.9 <3.5 - 17.0 ng/L [facility] Comment:The Bar high sens itivity Troponin-I results should beused in conjunction with other diagnostic information suchas ECG, clinical observations and information, and patientsymptoms to aid in the diagnosis of UT. 05/30/2025 3:37 PM EDT 05/30/2025 3:40 PM EDT Generic External Data Provider LAB BLOOD ORDERAB LES Final Result [facility] [address] [place] [phone] * CT ABD/PELVIS W/O + W/ IV CONTRAST (05/30/2025 2:15 PM EDT) Anatomical Region Laterality Modality Body, Pelvis, Abdomen Computed T omography 05/30/2025 2:15 PM EDT Narrative 05/30/2025 3:32 PM EDT [address] [address] [address] Scan Report Signed Patient: Susan Chan MR#: [id number] 7 : 1945 Acct:[id number] Age/Sex: 79 / F ADM Date: 05/30/25 Loc: HO.ED Attending Dr: Ordering Physician: Alfie Gilman Date of Service: 05/30/25 Procedure(s): CT gi bleed abd pel wo/w IVcon Accession Number(s): [id number] cc: Alfie Gilman; Name,Joseph KIM Report Number: [id number]: Total DLP = 1385.00 mGy-cm Reason for [...] 05/30/25 1529 DD/ 1415 TD/TT: 05/30/25 1458 Blue Line Trimmer: Procedure Note Donotuseinterpreter, Image - 05/30/[address] [address] [address] Scan Report Signed Patient: Susan ChanMR#: [id number] 7 : 5Acct:[id number] Age/Sex: 79 / FADM Date: 05/30/25 Loc: .ED Attending Dr: Ordering Physician: Alfie Gilman Date of Service: 05/30/25 Procedure(s): CT gi bleed abd pel wo/w IVcon Accession Number(s): [id number] cc: Alfie Gilman; Name,Joseph KIM Report Number: [id number]: Total DLP = 1385.00 mGy-cm Reason for [...] 05/30/25 1529 DD/ 1415 TD/TT: 05/30/25 1458 Blue Line Trimmer: [facility] External Provider IMG CT PROCEDURES Final Result * OBSX1 (05/30/2025 11:51 AM EDT) [facility] OBS1 POSITIVE NEGATIVE [facility] 05/30/2025 11:5 1 AM EDT 05/30/2025 11:55 AM EDT Generic External Data Provider LAB BLOOD ORDERAB LES Final Result [facility] [address] [place] [phone] * (ABNORMAL) Complete Blood Count Manual Diff (05/30/2025 11:51 AM EDT) [facility] White Blood Count 8.0 4.8 - 10.8 X10*3/uL [facility] Red Blood Count 2.80(L) 4.20 - 5.50 X10*6/uL [facility] Hemoglobin 8.5(L) 12.0 - 16.0 g/dl [facility] Hematocrit 26.5(L) 37.0 - 47.0 % [facility] Mean Corpuscular Volume 94.6 80.0 - 98.0 fL [facility] Mean Corpuscular Hemoglobin 30.4 27.0 - 33.0 pg [facility] Mean Corpuscular HGB Conc 32.1 31.0 - 35.0 g/dl [facility] Red Cell Distribution Width 14.4 11.0 - 16.0 % [facility] Platelet Count 77(L) 160 - 400 X10*3/uL [facility] NRBC Pct Auto 0.0 0.0 - 0.2 /100WBC [facility] NRBC Abs Auto 0.000 0.0 - 0.012 X10*3/uL [facility] Neutrophils % Manual 82(H) 45 - 73 % [facility] Band Neutrophils Percent 4 3 - 5 % [facility] Lymphocytes Percent Manual 8(L) 20 - 40 % [facility] Monocytes Percent Manual 4 2 - 11 % [facility] EOSINOPHILS % MANUAL 1 0 - 4 % [facility] BASOPHILS % MANUAL 1 0 - 2 % [facility] NEUTROPHILS ABSOLUTE MANUAL 6.9 2.0 - 8.3 X10*3/uL [facility] LYMPHOCYTES ABSOLUTE MANUAL 0.6(L) 1.2 - 4.9 X10*3/uL [facility] MONOCYTES ABSOLUTE MANUAL 0.3 0.1 - 1.2 X10*3/uL [facility] EOSINOPHILS ABSOLUTE MANUAL 0.1 0.0 - 0.4 X10*3/uL [facility] BASOPHILS ABSOLUTE MANUAL 0.1 0.0 - 0.2 X10*3/uL [facility] Platelet Estimate DECREASED NORMAL [facility] Large Platelet [facility] Platelet Morphology Comment NOTED [facility] RBC Morphology NOTED [facility] Hypochromasia 1+ (5-14) /OIF [facility] Basophilic Stippling 1+ (0-2) /OIF [facility] Ovalocytes 1+ (5-14) /OIF [facility] 05/30/2025 11:5 1 AM EDT 05/30/2025 11:55 AM EDT Generic External Data Provider LAB BLOOD ORDERAB LES Final Result Performing Organization Address [facility]/ZIP Co de Phone Number [facility] [address] [place] [phone] * Partial Thromboplastin Time, Activated (APTT) (05/30/2025 11:51 AM EDT) Partial Thromboplastin Time 29.3 26.7 - 34.1 SEC [facility] 05/30/2025 11:5 1 AM EDT 05/30/2025 11:55 AM EDT Generic External Data Provider LAB BLOOD ORDERAB LES Final Result Performing Organization Address City/[facility]/ZIP Co de Phone Number [facility] [address] [place] [phone] * (ABNORMAL) Prothrombin Time-INR (05/30/2025 11:51 AM EDT) Prothrombin Time 14.2(H) 10.9 - 12.4 SEC [facility] INTERNATIONAL NORM RATIO 1.2(H) 0.9 - 1.1 [facility] Comment:INTERNATIONAL NORMAL IZED RATIO [...] ORDERAB LES Final Result Performing Organization Address [facility]/ZIP Co de Phone Number [facility] [address] [place] [phone] * Type and screen (05/30/2025 11:51 AM EDT) Blood Type OP [facility] Antibody Screen NEGATIVE [facility] 05/30/2025 11:5 1 AM EDT 05/30/2025 12:01 PM EDT Generic External Data Provider LAB BLOOD BANK TE ST ORDERABLES Final Result Performing Organization Address [facility] Co de Phone Number [facility] [address] [place] [phone] * Lipase (05/30/2025 11:51 AM EDT) Pathologist [facility] Lipase 10 8 - 78 U/L [facility] 05/30/2025 11:5 1 AM EDT 05/30/2025 11:55 AM EDT Generic External Data Provider LAB BLOOD ORDERAB LES Final Result Performing Organization Address [facility] Co de Phone Number [facility] [address] [place] [phone] * (ABNORMAL) Comprehensive Metabolic Panel (05/30/2025 11:51 AM EDT) Sodium 143 135 - 145 mmol/L [facility] Potassium 4.3 3.3 - 5.1 mmol/L [facility] Chloride 108 96 - 108 mmol/L [facility] Carbon Dioxide 29 22 - 29 mmol/L [facility] Anion Gap 10(L) 12 - 20 [facility] Urea Nitrogen (BUN) 11 9 - 16 mg/dL [facility] Creatinine, Serum 0.59 0.5 - 1.4 mg/dL [facility] Creatinine Clr Calc Pharmacy 72.8 [facility] Comment:Provided height and weight: 160.02 cm,73.028 kg.eGFR (calculated from the MDRD study equation) and eCrCl(calculated from the Cockcroft-Gault equation) are based ondifferent parameters and may not yield comparable results.If eCrCl result is absurd, please check patient'sheight/weight. Estimated Glomerular Filt Rate >60 [facility] Comment:Chronic Kidney Disea se: Estimated GFR < 60 mL/min/1.16o6[place]aken Kidney Disease: Estimated GFR < 15 mL/min/1.73m2 Glucose 99 60 - 115 mg/dL [facility] Calcium 8.2(L) 8.4 - 10.2 mg/dL [facility] Bilirubin, Total 0.9 0.0 - 1.0 mg/dL [facility] Aspartate Amino Transferase 25 5 - 31 U/L [facility] Alanine Aminotransferase 24 0 - 31 U/L [facility] Total Protein 5.4(L) 6.5 - 8.0 g/dL [facility] Albumin Level 3.8 3.5 - 5.0 g/dL [facility] Alkaline Phosphatase 45 39 - 117 U/L [facility] 05/30/2025 11:5 1 AM EDT 05/30/2025 11:55 AM EDT us Generic External Data Provider LAB BLOOD ORDERAB LES Final Result [facility] [address] [place] [phone] * XR Chest 1 View (05/18/2025 3:16 AM EDT) Anatomical Region Laterality Modality Chest Radiographic Ewelina ging 05/18/2025 3:16 AM EDT Narrative 05/18/2025 3:17 AM EDT [address] [address] XRay Report Signed Patient: Susan Chan MR#: [id number] 7 : 1945 Acct:[id number] Age/Sex: 79 / F ADM Date: 05/18/25 Loc: HO.ED Attending Dr: Ordering Physician: Generic ED Physician Date of Service: 05/18/25 Procedure(s): XR chest 1V Accession Number(s): [id number] cc: Generic ED Physician; Name,Joseph KIM CLINICAL [...] in OV> 05/18/253[address] DD/ 5 TD/TT: 05/18/25315 Blue Line Trimmer: Procedure Note Donotuseinterpreter, Image - 05/18/2025 [place] [address] XRay Report Signed Patient: Susan ChanMR#: [id number] 7 : 5Acct:[id number] Age/Sex: 79 / FADM Date: 05/18/25 Loc: HO.ED Attending Dr: Ordering Physician: Generic ED Physician Date of Service: 05/18/25 Procedure(s): XR chest 1V Accession Number(s): [id number] cc: Generic ED Physician; Name,Joseph KIM CLINICAL [...] in OV> 05/18/25315 DD/ 5 TD/TT: 05/18/25315 Blue Line Trimmer: [facility] External Provider IMG XR PROCEDURES Final Result from Last 3 Months Insurance MEDICARE Member Subscriber Plan / Payer ( fective 2022-Present) Name:Susan Chan Member ID:[id number] Relation to Subscriber:Self Name:Susan Chan Subscriber ID:[id number] Payer ID:STATE Group ID:Not on file Type:Medicare Address: [facility] [address] [phone] [employer] Care Teams Supervisor Customer Complaint Service Relationship Specialty Start Date End Date Name, MD Joseph [address] [place] [address] PCP - General Family Medicine 01/21/22 Clinical Summary Created on: July 30, 2025 Susan Chan : 1945 Sex: Female Author Organization [employer] Address [address] [place] [address] [address] [place] [address] Care Team Providers Care Supervisor Customer Complaint Service Name Role Phone Name, Joseph KIM Primary Care Provider [phone] Allergies Active Allergy Reactions Criticality Noted Date Comments Aqflojnvdr-Qgxlory-Jvstnnqffw 2017 Penicillin G 08/24/2022 Penicillin V Hives,Rash Low 04/04/2008 Penicillins Hives 12/23/2022 Sulfa Antibiotics Hives 01/19/2016 Sulfacetamide Diarrhea,Dermatitis 04/04/2008 Sulfamethoxazole 08/24/2022 Medications * This document contains information received from the source organization and may not represent a complete record from that organization. albuterol (2.5 MG/3ML) 0.083% nebulizer solution Inhale 3 mL every 6 (six) hours. 01/22/20 Active Blood Pressure kit USE TO CHECK BLOOD PRESSURE TWICE DAILY 02/10/20 Active Biotin 5 MG/ML liquid Biotin daily [...] by mouth Once per day. 90 tablet 1 04/04/20 25 Active albuterol 108 (90 Base) MCG/ACT inhaler INHALE 2 PUFFS BY MOUTH EVERY 4 HOURS IF NEEDED 25.5 g 1 06/16/20 25 Active ferrous gluconate (Fergon) 324 (38 Fe) MG tabletIndicati ons:Iron deficiency anemia, unspecified iron deficiency anemia type Take 1 tablet (324 mg) by mouth every other day. 15 tablet 11 06/17/20 25 026 Active ondansetron (Zofran) 4 MG tabletIndicati ons:Chronic anemia TAKE 1 TABLET BY MOUTH EVERY 8 HOURS 20 tablet 06/17/20 25 Active oxyCODONE-acet aminophen (Percocet) 10-325 MG tabletIndicati ons:Chronic pain syndrome Take 1 tablet by mouth every 6 (six) hours if needed for severe pain for up to 28 days. TAKE 1 TABLET BY MOUTH EVERY 6 HOURS IF NEEDED FOR SEVERE PAIN Do not start before July 11, 2025. 112 tablet 07/11/20 25 025 Active ALPRAZolam (Xanax) 0.5 MG tabletIndicati ons:Chronic pain syndrome Take 1 tablet (0.5 mg) by mouth every 8 (eight) hours for 28 days. Do not start before July 11, 2025. 84 tablet 07/11/20 25 025 Active ALPRAZolam (Xanax) 0.5 MG tabletIndicati ons:Chronic pain syndrome Take 1 tablet (0.5 mg) by mouth every 8 (eight) hours for 28 days. Do not start before June 12, 2025. 84 tablet 06/12/20 025 Discontinued(Re order (will not trigger notification to Pharmacy)) oxyCODONE-acet aminophen (Percocet) 10-325 MG tabletIndicati ons:Chronic pain syndrome Take 1 tablet by mouth every 6 (six) hours if needed for severe pain for up to 28 days. TAKE 1 TABLET BY MOUTH EVERY 6 HOURS IF NEEDED FOR SEVERE PAIN Do not start before June 12, 2025. 112 tablet 06/12/20 025 Discontinued(Re order (will not trigger notification to Pharmacy)) doxycycline (Vibra-Tabs) 100 MG tablet Take 1 tablet (100 mg) by mouth 2 times daily for 7 days. Take with a full glass of water and do not lie down for at least 30 minutes after. 14 tablet 07/16/20 025 Active Problems Problem Noted Date Diagnosed Date snf (current) use of opiate analgesic 11/16 Long-term [...] with EF of 40-45%. [place] [facility] [place] and she did NOT have significant [...] an evaluation. Since she lives closer to [place] more than likely I will follow-up with [...] 09/05/2023 09/05/2023 09/05/2023 Ischemic cardiomyopathy 09/05/2023 09/05/202308/18 SOB (shortness of breath) 09/05/2023 09/05/2023 Peptic ulcer disease 03/01/2023 023 Mild asthma 10/20/2015 03/28/2023 Thrombocytopenia 05/20/2008 04/04/2025 Overview (03/28/2023): Abdominal ultrasound negative for splenomegaly or liver disease [place] [id number] Likely ITP, follows at [facility] hematology Heartburn 04/04/2008 03/28/2023 Overview (03/01/2023): H/O PUD Encounters * This document contains information received from the source organization and may not represent a complete record from that organization. Date Type Department Care Team Description 07/29/2025 Telephone [facility] [place] [address] NameJoseph MD 07/29/2025 Telephone [facility] [place] [address] NameJoseph MD 07/16/2025 Telephone [facility] [place] [address] Joseph Magana MD Medication Question 07/11/2025 Orders Only [facility] [place] [address] NameJoseph MD Chronic anemia; History of GI bleed 07/09/2025 Refill [facility] [place] [address] Joseph Magana MD Chronic pain syndrome; Chronic pain syndrome 07/04/2025 Orders Only [facility] [place] [address] Joseph Magana MD Chronic anemia; History of GI bleed 06/27/2025 Orders Only [facility] [place] [address] Joseph Magana MD Chronic anemia; History of GI bleed 06/20/2025 Patient Outreach [facility] [place] [address] Joseph Magana MD Medicare Annual Wellness Visit Initial (AWV unscheduled) 06/20/2025 Orders Only [facility] [place] [address] Joseph Magana MD Chronic anemia; History of GI bleed 06/18/2025 Telephone [facility] [place] [address] Kaitlynn Landrum, SUNSHINE Patient would like call 06/17/2025 1:15 PM EDT Office Visit [facility] [place] [address] Joseph Magana MD Chronic anemia (Primary Dx); Iron deficiency anemia, unspecified iron deficiency anemia type; History of GI bleed; Rectal bleeding; Encounter for immunization 06/17/2025 Travel 06/13/2025 Refill [facility] [place] [address] Joseph Magana MD 06/10/2025 Travel 06/04/2025 11:30 AM EDT Telemedicine [facility] [place] [address] Kaitlynn Landrum, RN snf (current) use of opiate analgesic; Long-term current use of benzodiazepine 06/04/2025 Refill [facility] [place] [place] [address] Kaitlynn Landrum, detail assembler pain syndrome; Chronic pain syndrome 06/04/2025 Refill [facility] [place] [place] [address] Kaitlynn Landrum, SUNSHINE 06/04/2025 Refill [facility] [place] [address] Kaitlynn Landrum, SUNSHINE 06/04/2025 Refill [facility] [place] [address] Kaitlynn Landrum, detail assembler pain syndrome; Chronic pain syndrome 06/04/2025 Travel 06/03/2025 Telephone [facility] [place] [facility] [place] [address] Ara Cantor RN 05/30/2025 Results Follow-Up [facility] [address] [facility] [address] Name, MD Joseph OBSX1, Complete Blood Count Manual Diff, Prothrombin Time-INR, Additional followed-up results: 4 05/30/2025 Orders Only
--- OUTSIDE RECORDS SUMMARY | 2025-07-30 04:34 | XMS_ITS | Encounter Summary ---
Author Organization [employer] Address [address] [facility] [address] [place] [address] Care Team Providers Care Software Program Manager Name Role Phone Name, Joseph KIM Primary Care Provider [phone] Encounter Details Date Type Department Care Team ([facility] st Contact Info) Description 07/29/2025 Telephone [facility] [address] [place], [place] [phone] Name, MD Joseph [address] [place], [place] [phone] Social History Tobacco Use Types Packs/Day Years [...] Telephone Encounter - Irena Pacheco RN - 07/29/2025 3:06 PM EST Tc to pt per PCP Please call and triage this patient, she has been calling my direct line . Pt reports they have been experiencing diarrhea since Monday and vomited x 2. Pt reports they have not been drinking water but has been drinking Pedialyte. Pt reports that they have abn lack of appetite which is chronic for them. Pt denies chest, but did finish a course of antibiotics last week. Pt christian es chest pain, fever, dry mouth,dizziness and abdominal pain. Pt reports when they touch their stomach it feels bloated. Pt advised they should go to the ED for ongoing diarrhea. Pt declines at this time and states they don't want to go due to how they were treated in the past. Fiberglass Ski Maker strongly encouraged pt to pick a different ED but ppt states if they have to go they will go to [facility] because it's the best hospital. Pt reports they'll come in to [facility] tomorrow to be evaluated since they're unable to come in today. Pt advised if symptoms worsens then they should go to the ED TRAM. ED precautions reviewed and pt verbalized understanding and agrees with plan. * Telephone Encounter - Joseph Magana MD - 07/29/2025 12:30 PM EST Please call and triage this patient, she has been calling my direct line documented in this encounter Plan of Treatment Upcoming Encounters Date Type Department Care Team (Late st Contact Info) Description 08/29/2025 9:30 AM EST Telemedicine [facility] [address] [place] [address] Kaitlynn Landrum RN 09/17/2025 11:15 AM EST Office Visit [address] [address] Name, MD Joseph [address] [place] [address] documented as of this encounter Visit Diagnoses Not on filedocumented in this encounter Additional Health Concerns Assessment Noted Time PHQ-9 Depression Total Score: 2 04/04/20 25 11:39 AM EDT documented as of this encounter Care Teams Software Program Manager Relationship Specialty Start Date End Date Joseph Magana MD [address] [place] [address] PCP - General Family Medicine 01/21/22 documented as of this encounter
--- OUTSIDE RECORDS SUMMARY | 2025-07-30 04:34 | XMS_ITS | Encounter Summary ---
Author Organization [employer] Address [address] [facility] 7t [place] [address] Care Team Providers Care Electrical Technician Name Role Phone Name, Joseph KIM Primary Care Provider [phone] Reason for Visit * Reason Onset Date Comments Call Back Request 02/13/2024 Encounter Details Date Type Department Care Team ([facility] Contact Info) Description 02/13/2024 Telephone [facility] MEDICINE [address] [place], [place] [phone] Name, MD Joseph [address] [place], [place] [phone] Call Back Request Social History Tobacco Use [...] it evaluated. Stated she originally called this screenplay writer about her medications, but has since [...] Description 08/29/2025 9:30 AM EST Telemedicine [address] [address] Kaitlynn Landrum RN 09/17/2025 11:15 AM EST Office Visit [address] [address] Name, MD Joseph [address] [place] [address] documented as of this encounter Visit Diagnoses Not on filedocumented in this encounter Additional Health Concerns Assessment Noted Time PHQ-9 Depression Total Score: 0 01/30/20 24 11:07 AM EDT documented as of this encounter Care Teams Electrical Technician Relationship Specialty Start Date End Date Name, MD Joseph [address] [place] [address] PCP - General Family Medicine 01/21/22 documented as of this encounter
--- OUTSIDE RECORDS SUMMARY | 2025-07-30 04:34 | XMS_ITS | Encounter Summary ---
Author Organization [employer] Address [address] [facility] 7t [place] [address] Care Team Providers Care Electric Crane Operator Name Role Phone Name, Joseph KIM Primary Care Provider [phone] Encounter Details Date Type Department Care Team ([facility] st Contact Info) Description 07/29/2025 Telephone [facility] MEDICINE [address] [place], [place] [phone] Name, MD Joseph [address] [place], [place] [phone] Social History Tobacco Use Types Packs/Day Years [...] Telephone Encounter - Ara Cantor RN - 07/29/2025 2:40 PM EST T/C to pt who reports that she has had diarrhea since Monday and has vomited x 2 with last episode of vomiting yesterday. Reports that she is not able to eat. States that she is using pepto bismol and sipping Pedialyte. Reports that diarrhea continues, looks like mustard and she has notices a small amount of blood with bowel movements starting today. Reports blood is not bright red and is only happening with bowel movements. Reports that she feels slightly weak. Denies fever and reports that her blood pressure is wnl. No pain reported. Recommended that pt come to [facility] today for evaluation. Pt declines stating she has no transportation. Uber offered. Pt declined stating she prefers to come in tomorrow when her roommate can take her. Encouraged pt to hydrate as tolerated. ED precautions reviewed. Encouraged pt to call if symptoms worsen. documented in this encounter Plan of Treatment Upcoming Encounters Date Type Department Care Team (Late st Contact Info) Description 08/29/2025 9:30 AM EST Telemedicine [facility] MEDICINE [address] [place] [address] Kaitlynn Landrum RN 09/17/2025 11:15 AM EST Office Visit [facility] MEDICINE [address] [place] [address] Name, MD Joseph [address] [place] [address] documented as of this encounter Visit Diagnoses Not on filedocumented in this encounter Additional Health Concerns Assessment Noted Time PHQ-9 Depression Total Score: 2 04/04/20 25 11:39 AM EDT documented as of this encounter Care Teams Electric Crane Operator Relationship Specialty Start Date End Date Name, MD Joseph [address] [place] [id number] PCP - General Family Medicine 01/21/22 documented as of this encounter
--- OUTSIDE RECORDS SUMMARY | 2025-07-30 04:34 | XMS_ITS | Clinical Summary ---
Author Organization [facility] Address [address] [facility] [address] [place] [address] Phone Care Team Providers Care Profiler Name Role Phone Kishore Enamorado MD Primary Care Provider [phone] Allergies Active Allergy Reactions Criticality Noted Date [...] an evaluation. Since she lives closer to [place] more than likely I will follow-up with [...] patient's age to complete this topic IPV VACCINES Aged Out No longer eligi ble based on patient's age to complete this topic MENINGOCOCCAL VACCINES (ACWY) Aged Out No longer eligible based on patient's age to complete this topic MENINGOCOCCAL VACCINES (B) Aged Out N o longer eligible based on patient's age to complete this topic Medical Devices Not on file Insurance [employer] [facility] PLAN HEALTH PLAN HEALTH PLAN HEALTH PLAN PLAN PLAN HEALTH PLAN PLAN PLAN Care Teams Profiler Relationship Specialty Start Date End Date Kishore Enamorado MD [address] [place] [address] [address] ROXANN Patel [phone] [email or web address] PCP - General Family Medicine 04/16/19 Additional Source Comments The information contained in this document represents components of the legal health record. It is not the complete legal health record.[facility]
--- OUTSIDE RECORDS SUMMARY | 2025-07-30 04:34 | XMS_ITS | Clinical Summary ---
Author Organization [facility] Address [address] [place] [address] Phone Care Team Providers Care Hospital Receptionist Name Role Phone Name, Joseph KIM Primary Care Provider [phone] Allergies Active Allergy Reactions Criticality Noted Date Comments Penicillins Hives,Rash Low 04/04/2008 Sulfa (Sulfonamide Antibiotics) Hives 11/2015 Medications ALPRAZolam (XANAX) 0.5 mg tablet Take 1 tablet (0.5 mg total) by mouth every 8 hours. 10/05/2015 Active DULoxetine (CYMBALTA) [address] capsule Take 1 capsule (30 mg total) by mouth 2 times daily. 04/04/2025 Active metoprolol succinate (TOPROL-XL) 25 mg 24 hr tablet Take 1 tablet (25 mg total) by mouth daily. 02/10/2021 Active Active Problems Problem Noted Date Diagnosed Date Dehydration 05/28/2025 Encounters Date Type Department Care Team Description 05/28/2025 3:24 PM EDT - 05/29/2025 1:23 PM EDT Hospital Encounter Urology Unit [address] [place] [address] Yaya Carrasquillo MD Wyman, Tim, MD Seralathan, Manikandan, MD SantoyoDesire ri, Dieudonne Hutchinson MD Dehydration (Primary Dx); Dehydration, mild; Hypomagnesemia; Hypokalemia Discharge Disposition: Home-Health Care [facility] from Last 3 Months Surgical History Surgery [...] Years Used Date Smoking Tobacco: Former Cigarettes 0 Q uit: 09/18/2004 Smokeless Tobacco: Never Alcohol Use Standard Drinks/Week Comments Yes 0 (1 standard drink = 0.6 oz pur e alcohol) Interpersonal Safety Answer Date Record ed Physical Abuse Unrecognized value 05/29/2025 Verbal Abuse Unrecognized value 05/29/2025 Comments Unknown Sex and Gender Information [...] Procedure Name Priority Date/Time Associated Diagnosis Comments ECG ANNOTATED 05/30/2025 LACTATE Routine 05/29/2025 4:05 AM EDT CBC [...] EDT from Last 3 Months Results * ECG-Annotated (05/30/2025) us Provider Onbase MD ECG ORDERABLES Final Result * (ABNORMAL) CBC auto differential (05/29/2025 4:05 AM EDT) Only the most recent of2 resultswithin the time period is included. WBC 8.0 4.8 - 10.8 K/mcL LAB HEMETOLOGY METHOD 05/29/2025 5:28 AM [facility] RBC 2.80(L) 3.80 - 4.80 M/mcL LAB HEMETOLOGY METHOD 05/29/2025 5:28 AM [facility] Hemoglobin 8.2(L) 11.5 - 16.0 g/dL LAB HEMETOLOGY METHOD 05/29/2025 5:28 AM [facility] Hematocrit 26.8(L) 35.0 - 47.0 % LAB HEMETOLOGY METHOD 05/29/2025 5:28 AM [facility] MCV 97.5 79.0 - 98.0 FL LAB HEMETOLOGY METHOD 05/29/2025 5:28 AM [facility] MCH 29.8 27.0 - 32.0 pcg LAB HEMETOLOGY METHOD 05/29/2025 5:28 AM [facility] MCHC 30.6(L) 32.0 - 37.0 g/dL LAB HEMETOLOGY METHOD 05/29/2025 5:28 AM [facility] RDW 14.4 11.0 - 15.0 % LAB HEMETOLOGY METHOD 05/29/2025 5:28 AM [facility] Platelets 66(L) 130 - 400 K/mcL LAB HEMETOLOGY METHOD 05/29/2025 5:28 AM [facility] LAB Comment:reviewed by jaleel MCGRATH LAB HEMETOLOGY METHOD 05/29/2025 5:28 AM [facility] LAB Comment:Not Measured NRBC 0.0 <1.0 % LAB HEMETOLOGY METHOD 05/29/2025 5:28 AM [facility] NRBC Absolute 0.00 <0.10 K/mcL LAB HEMETOLOGY METHOD 05/29/2025 5:28 AM [facility] Neutrophils Relative 68.0 % LAB HEMETOLOGY METHOD 05/29/2025 5:28 AM [facility] Lymphocytes Relative 19.3 % LAB HEMETOLOGY METHOD 05/29/2025 5:28 AM [facility] Monocytes Relative 9.4 % LAB HEMETOLOGY METHOD 05/29/2025 5:28 AM [facility] Eosinophils Relative 2.1 % LAB HEMETOLOGY METHOD 05/29/2025 5:28 AM [facility] Basophils Relative 0.9 % LAB HEMETOLOGY METHOD 05/29/2025 5:28 AM [facility] Immature Granulocytes Relative 0.3 % LAB HEMETOLOGY METHOD 05/29/2025 5:28 AM [facility] Neutrophils Absolute 5.43 1.50 - 7.00 K/mcL LAB HEMETOLOGY METHOD 05/29/2025 5:28 AM [facility] Lymphocytes Absolute 1.54 1.00 - 5.00 K/mcL LAB HEMETOLOGY METHOD 05/29/2025 5:28 AM [facility] Monocytes Absolute 0.75 0.20 - 1.00 K/mcL LAB HEMETOLOGY METHOD 05/29/2025 5:28 AM [facility] Eosinophils Absolute 0.17 0.00 - 0.50 K/mcL LAB HEMETOLOGY METHOD 05/29/2025 5:28 AM EDT [facility] Basophils Absolute 0.07 0.00 - 0.20 K/mcL LAB HEMETOLOGY METHOD 05/29/2025 5:28 AM EDT [facility] Immature Granulocytes Absolute 0.02 0.00 - 0.03 K/mcL LAB HEMETOLOGY METHOD 05/29/2025 5:28 AM EDT [facility] Blood Venous blood specimen / Unknown Venipuncture / Unknown 05/29/2025 4:05 AM EDT 05/29/2025 4:30 AM EDT Aylin JUNE LAB BLOOD ORDERABLES Fi nal Result Performing Organization Address [facility]/ZIP Co de Phone Number [facility] [address] [place] [address], [place] [phone] * (ABNORMAL) Magnesium (05/29/2025 4:05 AM EDT) [...] ORDERABLES Fi nal Result Performing Organization Address City/[facility]/ZIP Co de Phone Number [facility] [address] [place] [address], [place] [phone] * Lactate (05/29/2025 4:05 AM EDT) Lactate 0.7 0.4 - 2.0 mmol/L LAB CHEMISTRY METHOD 05/29/2025 4:57 AM EDT [facility] Blood Venous blood specimen / Unknown Venipuncture / Unknown 05/29/2025 4:05 AM EDT 05/29/2025 4:30 AM EDT Aylin JUNE LAB BLOOD ORDERABLES Fi nal Result [facility] [address] [place] [address], * (ABNORMAL) Basic metabolic panel (05/29/2025 4:05 AM EDT) Sodium 145 133 - 145 mmol/L LAB CHEMISTRY METHOD 05/29/2025 5:07 AM [facility] Potassium 3.5 3.5 - 5.5 mmol/L LAB CHEMISTRY METHOD 05/29/2025 5:07 AM [facility] Chloride 111(H) 96 - 110 mmol/L LAB CHEMISTRY METHOD 05/29/2025 5:07 AM [facility] CO2 30 21 - 32 mmol/L LAB CHEMISTRY METHOD 05/29/2025 5:07 AM [facility] Anion Gap 4 3 - 11 LAB CHEMISTRY METHOD 05/29/2025 5:07 AM [facility] Glucose 107(H) 70 - 100 mg/dL LAB CHEMISTRY METHOD 05/29/2025 5:07 AM [facility] BUN 14 5 - 25 mg/dL LAB CHEMISTRY METHOD 05/29/2025 5:07 AM [facility] Creatinine 0.49(L) 0.50 - 1.10 mg/dL LAB CHEMISTRY METHOD 05/29/2025 5:07 AM [facility] eGFR 95 >=60 mL/min/1. 73m2 LAB CHEMISTRY METHOD 05/29/2025 5:07 AM [facility] Comment:Calculation based on the Chronic Kidney [...] Result [facility] [address] [place] [address], [place] [phone] * XR Chest 2 Views (05/28/2025 6:04 PM EDT) Anatomical Region Laterality Modality Body Radiographic Ewelina ging 05/29/2025 8:17 AM EDT Impressions 05/29/2025 8:18 AM EDT FINDINGS/IMPRESSION: No pneumonia or pulmonary edema. No pleural effusion or pneumothorax. Cardiac silhouette is mildly enlarged. Mild degenerative changes seen throughout the bones. -------- FINAL REPORT -------- Dictated By: CEDRIC LARKIN Dictated Date: 05/29/2025 08:17 ET Assigned Physician: CEDRIC LARKIN Reviewed and Electronically Signed By: CEDRIC LARKIN Signed Date: 05/29/2025 08:18 ET Workstation ID: [id number] Transcribed By: Self Edit Transcribed Date: 05/29/2025 08:17 ET Narrative 05/29/2025 8:18 AM EDT XR CHEST 2 VIEWS INDICATION: Pneumonia TECHNIQUE: XR CHEST 2 VIEWS COMPARISON: No priors available. Procedure Note Cedric Larkin MD - 05/29/2025 XR CHEST 2 VIEWS INDICATION: Pneumonia TECHNIQUE: XR CHEST 2 VIEWS COMPARISON: No priors available. IMPRESSION: FINDINGS/IMPRESSION: No pneumonia or pulmonary edema. No pleural effusionor pneumothorax. Cardiac silhouette is mildly enlarged. Milddegenerative changes seen throughout the bones. -------- FINAL REPORT -------- Dictated By: CEDRIC LARKIN Dictated Date: 05/29/2025 08:17 ET Assigned Physician: CEDRIC LARKIN Reviewed and Electronically Signed By: CEDRIC LARKIN Signed Date: 05/29/2025 08:18 ET Workstation ID: [id number] Transcribed By: Self Edit Transcribed Date: 05/29/2025 08:17 ET us Yaya Carrasquillo MD IMG XR PROCEDURES Final Resu lt * (ABNORMAL) Urinalysis with reflex microscopic (05/28/2025 5:37 PM EDT) Specific [place] Urine 1.026 1.003 - 1.030 LAB URINALYSIS - AUTOMATED METHOD 05/28/2025 6:02 PM [facility] pH, Urine 6.0 5.0 - 8.0 pH LAB URINALYSIS - AUTOMATED METHOD 05/28/2025 6:02 PM [facility] Leukocytes, Urine Trace(A) Negative LAB URINALYSIS - AUTOMATED METHOD 05/28/2025 6:02 PM [facility] Nitrite, Urine Negative Negative LAB URINALYSIS - AUTOMATED METHOD 05/28/2025 6:02 PM [facility] Protein, Urine 30(A) <=Trace mg/dL LAB URINALYSIS - AUTOMATED METHOD 05/28/2025 6:02 PM [facility] Glucose, Urine Negative Negative mg/dL LAB URINALYSIS - AUTOMATED METHOD 05/28/2025 6:02 PM [facility] Ketones, Urine >=80(A) Negative mg/dL LAB URINALYSIS - AUTOMATED METHOD 05/28/2025 6:02 PM [facility] Urobilinogen, Urine 1.0 0.2 - 1.0 mg/dL LAB URINALYSIS - AUTOMATED METHOD 05/28/2025 6:02 PM [facility] Bilirubin, Urine Negative Negative LAB URINALYSIS - AUTOMATED METHOD 05/28/2025 [facility] Blood, Urine Small(A) Negative LAB URINALYSIS - AUTOMATED METHOD 05/28/2025 6:02 PM [facility] RBC, Urine 12.5(H) 0 - 4 /HPF LAB URINALYSIS - AUTOMATED METHOD 05/28/2025 6:02 PM [facility] WBC, Urine 5.8(H) 0 - 4 /HPF LAB URINALYSIS - AUTOMATED METHOD 05/28/2025 6:02 PM [facility] Squamous Epithelial, Urine 54 0 - 60 /LPF LAB URINALYSIS - AUTOMATED METHOD 05/28/2025 6:02 PM [facility] Bacteria, Urine Negative Negative /HPF LAB URINALYSIS - AUTOMATED METHOD 05/28/2025 6:02 PM [facility] Hyaline Casts, Urine 3.6(H) 0 - 3 /LPF LAB URINALYSIS - AUTOMATED METHOD 05/28/2025 6:02 PM [facility] Urine Urine specimen obtained by clean catch procedure / Unknown Non-blood Collection / Unknown 05/28/2025 5:37 PM EDT 05/28/2025 5:52 PM EDT us Yaya Carrasquillo MD LAB URINE ORDERABLES Final R esult [facility] [address] [place] [address], * Forrest urine culture tube (05/28/2025 5:37 PM EDT) Extra Tube Hold for add-ons. 05/28/2025 7:01 PM EDT [facility] Comment:Auto resulted. Urine Urine specimen obtained by clean catch procedure / Unknown 05/28/2025 5:37 PM EDT 05/28/2025 5:52 PM EDT us Yaya Carrasquillo MD LAB URINE ORDERABLES Final R esult Performing Organization Address City/[facility]/ZIP Co de Phone Number [facility] [address] [place] [address], [place] [phone] * ECG 12 lead (05/28/2025 5:15 PM EDT) [facility] Ventricular Rate ECG 95 BPM GEMUSE Atrial Rate 95 BPM GEMUSE P-R Interval 150 ms GEMUSE QRS Duration 88 ms GEMUSE Q-T Interval 406 ms GEMUSE QTc 510 ms GEMUSE P Wave [place] 51 degrees GEMUSE R [place] -32 degrees GEMUSE T [place] 48 degrees GEMUSE ECG Interpretation Normal sinus rhythm Left axis deviation Minimal voltage criteria for LVH, may be normal variant ( Sokolow-Grant ) Inferior infarct , age undetermined Prolonged QT No previous ECGs available Confirmed by GORDY MANCIA ([id number]) on 05/28/2025 8:11:30 PM GEMUSE 05/28/2025 5:15 PM EDT 05/28/2025 8:11 PM EDT Yaya Carrasquillo MD ECG ORDERABLES Final Result Performing Organization Address [facility] de Phone Number GEMUSE * (ABNORMAL) Manual differential (05/28/2025 4:36 PM EDT) Pathologist [facility] Neutrophils % 86.0 % LAB HEMETOLOGY METHOD 05/28/2025 5:29 PM EDT [facility] Lymphocytes % 10.0 % LAB HEMETOLOGY METHOD 05/28/2025 5:29 PM EDT [facility] Monocytes % 4.0 % LAB HEMETOLOGY METHOD 05/28/2025 5:29 PM EDT [facility] Eosinophils % 0.0 % LAB HEMETOLOGY METHOD 05/28/2025 5:29 PM EDT [facility] Basophils % 0.0 % LAB HEMETOLOGY METHOD 05/28/2025 5:29 PM EDT [facility] Neutrophils Absolute Manual 7.14(H) 1.50 - 7.00 K/mcL LAB HEMETOLOGY METHOD 05/28/2025 5:[facility] Lymphocytes Absolute 0.83(L) 1.00 - 5.00 K/mcL LAB HEMETOLOGY METHOD 05/28/2025 5:29 PM [facility] Monocytes Absolute Manual 0.33 0.20 - 1.00 K/mcL LAB HEMETOLOGY METHOD 05/28/2025 5:29 PM [facility] Eosinophils Absolute Manual 0.00 0.00 - 0.50 K/mcL LAB HEMETOLOGY METHOD 05/28/2025 5:29 [facility] Basophils Absolute Manual 0.00 0.00 - 0.20 K/mcL LAB HEMETOLOGY METHOD 05/28/2025 5:29 PM [facility] Rbc Morphology Present( A) Consistent with indices, Normal for LAB HEMETOLOGY METHOD 05/28/2025 5:29 PM [facility] Comment:RBC: Morphology agre es with CBC Platelet Morphology - WAM See Note(A) Normal LAB HEMETOLOGY METHOD 05/28/2025 5:29 PM [facility] Comment:PLT: Large platelets seen Ovalocytes Present 5 - 10%(A) (none) LAB HEMETOLOGY METHOD 05/28/2025 5:29 PM [facility] Schistocytes Present < 5%(A) (none) LAB HEMETOLOGY METHOD 05/28/2025 5:29 PM [facility] Blood Venous blood specimen / Unknown Venipuncture / Unknown 05/28/2025 4:36 PM EDT 05/28/2025 4:54 PM EDT us Yaya Carrasquillo MD LAB BLOOD ORDERABLES Final R esult Performing Organization Address City/[facility]/ZIP Co de Phone Number [facility] [address] [place] [address], [place] [phone] * Type and Screen (05/28/2025 4:36 PM [...] ORDERABL ES Final Result Performing Organization Address [facility]/ZIP Co de Phone Number [facility] [address] [place] [address], [place] [phone] * (ABNORMAL) Comprehensive Metabolic Panel (CMP) (05/28/2025 [...] 11 LAB CHEMISTRY METHOD 05/28/2025 5:53 PM [facility] Glucose 85 70 - 100 mg/dL LAB CHEMISTRY METHOD 05/28/2025 5:53 PM [facility] BUN 17 5 - 25 mg/dL LAB CHEMISTRY METHOD 05/28/2025 5:53 PM [facility] Creatinine 0.60 0.50 - 1.10 mg/dL LAB CHEMISTRY METHOD 05/28/2025 5:53 PM [facility] eGFR 91 >=60 mL/min/1. 73m2 LAB CHEMISTRY METHOD 05/28/2025 5:53 PM [facility] Comment:Calculation based on the Chronic Kidney Disease Epidemiology Collaboration (CKD-EPI) equation refit without adjustment for race. BUN/Creatinine Ratio 28.3 LAB CHEMISTRY METHOD 05/28/2025 5:53 PM [facility] Calcium 8.4(L) 8.5 - 10.5 mg/dL LAB CHEMISTRY METHOD 05/28/2025 5:53 PM [facility] AST (SGOT) 30 10 - 42 unit/L LAB CHEMISTRY METHOD 05/28/2025 5:53 PM [facility] ALT (SGPT) 33 10 - 60 unit/L LAB CHEMISTRY METHOD 05/28/2025 5:53 PM [facility] Alkaline Phosphatase 45 42 - 121 unit/L LAB CHEMISTRY METHOD 05/28/2025 5:53 PM [facility] Total Protein 5.4(L) 6.0 - 8.0 g/dL LAB CHEMISTRY METHOD 05/28/2025 5:53 PM [facility] Albumin 3.5 3.2 - 5.0 g/dL LAB CHEMISTRY METHOD 05/28/2025 5:53 PM [facility] Total Bilirubin 0.9 0.0 - 1.4 mg/dL LAB CHEMISTRY METHOD 05/28/2025 5:53 PM EDT [facility] Blood Venous blood specimen / Unknown Venipuncture / Unknown 05/28/2025 4:36 PM EDT 05/28/2025 4:54 PM EDT Yaya Carrasquillo MD LAB BLOOD ORDERABLES Final R esult [facility] [address] [place] [address], [place] [phone] from Last 3 Months Insurance MEDICARE [facility] Advance Directives * Full Code - Default [...] currently active code status orders. Care Teams Hospital Receptionist Relationship Specialty Start Date End Date Name, MD Joseph [address] [place] [address] PCP - General Internal Medicine 05/28/25
--- OUTSIDE RECORDS SUMMARY | 2025-07-30 04:34 | XMS_ITS | Encounter Summary ---
Author Organization [employer] Address [address] [facility] [address]t [place] [address] Care Team Providers Care Paper Cone Machine Tender Name Role Phone Name, Joseph KIM Primary Care Provider [phone] Encounter Details Date Type Department Care Team ([facility] st Contact Info) Description 07/11/[address] [facility] [address] [place], [place] [phone] Name, MD Joseph [address] [place], [place] [phone] Chronic anemia; History of GI bleed Social [...] Info) Description 08/29/2025 9:[address] [facility] [address] [place] [address] Kaitlynn Landrum RN 09/17/2025 11:15 AM EST Office Visit [facility] [address] [place] [phone] NameJoseph MD [address] [place] [phone] documented as of this encounter Visit Diagnoses Diagnosis Chronic anemia Unspecified anemia History of GI bleed documented in this encounter Additional Health Concerns Assessment Noted Time PHQ-9 Depression Total Score: 2 04/04/20 25 11:39 AM EDT documented as of this encounter Care Teams Paper Cone Machine Tender Relationship Specialty Start Date End Date NameJoseph MD [address] [place] [id number] PCP - General Family Medicine 01/21/22 documented as of this encounter
--- OUTSIDE RECORDS SUMMARY | 2025-07-30 04:34 | XMS_ITS | Encounter Summary ---
Author Organization [employer] [facility] Address [address] [place] [address] [address] [place] [address] Care Team Providers Care [employer] Name Role Phone Name, Joseph KIM Primary Care Provider [phone] Encounter Details Date Type Department Care Team (Late st Contact Info) Description 11/11/2022 Abstract [facility] [address] [place] [phone] Name, MD Joseph [address] [place] [id number] Social History Tobacco Use Types Packs/Day Years [...] Info) Description 08/29/2025 9:30 AM EST Telemedicine [facility] [address] [place] [phone] Kaitlynn Landrum RN 09/17/2025 11:15 AM EST Office Visit [facility] [address] [place] [address] Name, [place] [id number] documented as of this encounter Visit Diagnoses Not on filedocumented in this encounter Additional Health Concerns Assessment Noted Time PHQ-9 Depression Total Score: 4 09/22/19 11:14 AM EST documented as of this encounter Care Teams [employer] Relationship Specialty Start Date End Date Name, [place] [address] PCP - General Family Medicine 01/21/22 documented as of this encounter
--- OUTSIDE RECORDS SUMMARY | 2025-07-30 04:34 | XMS_ITS | Encounter Summary ---
Author Organization [facility] Address [address] [place] [address] [address] [place] [address] Care Team Providers Care Wind Energy Mechanic Name Role Phone Name, Joseph KIM Primary Care Provider [phone] Encounter Details Date Type Department Care Team (Late st Contact Info) Description 09/01/2022 Orders Only [address] [address] Cheryl García, RN Social History Tobacco Use [...] Info) Description 08/29/2025 9:30 AM EST Telemedicine [address] [address] Kaitlynn Landrum, SUNSHINE 09/17/2025 11:15 AM EST Office Visit [address] [address] Name, MD Joseph [address] [place] [phone] Pending Results Name Type Priority Associated Diagnoses [...] HIGH SENSITIVITY 5.0 <3.5 - 17.0 ng/L [facility] Comment:The [facility] high sens itivity Troponin-I results should beused in conjunction with other diagnostic information suchas ECG, clinical observations and information, and patientsymptoms to aid in the diagnosis of CA. 03/20/2023 2:31 PM EDT 03/20/2023 2:35 PM EDT us [facility] External Provider LAB BLO OD ORDERABLES Final Result [facility] [address] [place] [phone] * (ABNORMAL) Drug Monitoring, Panel 1, Screen, Urine (03/20/2023 11:21 AM EDT) Opiate Screen Urine Not Detected Not Detect [facility] Comment:Opiate cut-off is 30 0 ng/mL.Positive results are unconfirmed and should not be used fornon-medical purposes. Barbiturates, Urine Not Detected Not Detect [facility] Comment:Barbiturate cut-off is 200 ng/mL.Positive results are unconfirmed and should not be used fornon-medical purposes. Phencyclidine Screen Urine Not Detected Not Detect [facility] Comment:Phencyclidine cut-of f is 25 ng/mL.Positive results are unconfirmed and should not be used fornon-medical purposes. Amphetamine Screen Urine Not Detected Not Detect [facility] Comment:Amphetamine cut-off is 1000 ng/mL.Positive results are unconfirmed and should not be used fornon-medical purposes. Benzodiazepines Screen Urine Not Detected Not Detect [facility] Comment:Benzodiazepine cut-o ff is 200 ng/mL.Positive results are unconfirmed and should not be used fornon-medical purposes. Cocaine Screen Urine Not Detected Not Detect [facility] Comment:Cocaine cut-off is 3 00 ng/mL.Positive results are unconfirmed and should not be used fornon-medical purposes. Cannabinoid Screen Urine POSITIVE(A) Not Detect [facility] Comment:Cannabinoid cut-off is 50 ng/mL.Positive results are unconfirmed and should not be used fornon-medical purposes. FENTANYL URINE Not Detected Not Detect [facility] Comment:Fentanyl cut-off is 1 ng/mL.Positive results are unconfirmed and should not be used fornon-medical purposes. 03/20/2023 11:2 1 AM EDT 03/20/2023 11:53 AM EDT [facility] External Provider LAB URI NE ORDERABLES Final Result [facility] [address] [place] [phone] * (ABNORMAL) Urinalysis, Complete, with Reflex to Culture (03/20/2023 11:21 AM EDT) Color Urine Yellow [facility] Appearance Urine Cloudy [facility] PH 5.5 5.0 - 9.0 [facility] Glucose Urine UA Negative Negative mg/dL [facility] Urine Blood Negative Negative [facility] Specific [place] - Urine 1.010 1.005 - 1.025 [facility] Urine Protein Negative Neg-Trace mg/dL [facility] Urine Ketones Negative Negative mg/dL [facility] Nitrite Urine Negative Negative [facility] Leukocyte Esterase Urine Trace(A) Negative [facility] RBC Urine 3-5(A) 0 - 2 /HPF [facility] Urine WBC 0-5 0 - 5 /HPF [facility] Urine Squamous Epithelial Cell 6-10 0 - 2 /HPF [facility] Urine Bacteria Trace None Seen [facility] Hyaline Casts, Urine 0-2 0 - 2 /LPF [facility] 03/20/2023 11:2 1 AM EDT 03/20/2023 11:24 AM EDT Narrative [facility] - 03/20/2023 11:30 AM EDT [id number], Clean Catch us [facility] External Provider LAB URI NE ORDERABLES Final Result [facility] [address] [place] [phone] * Ethanol (03/20/2023 11:11 AM EDT) ETHANOL (MG/DL) IN SER/PLAS <10 mg/dL [facility] Comment:Serum/plasma ethanol results are to be used formedical/treatment purposes only. 03/20/2023 11:1 1 AM EDT 03/20/2023 11:19 AM EDT [facility] External Provider LAB BLO OD ORDERABLES Final Result Performing Organization Address [facility] Co de Phone Number [facility] [address] [place] [phone] * High Sensitivity Troponin I (03/20/2023 11:11 AM EDT) [facility] TROPONIN I HIGH SENSITIVITY 4.9 <3.5 - 17.0 ng/L [facility] Comment:The [facility] high sens itivity Troponin-I results should beused in conjunction with other diagnostic information suchas ECG, clinical observations and information, and patientsymptoms to aid in the diagnosis of CA. 03/20/2023 11:1 1 AM EDT 03/20/2023 11:19 AM EDT [facility] External Provider LAB BLO OD ORDERABLES Final Result Performing Organization Address [facility] de Phone Number [facility] [address] [place] [phone] * B Type Natriuretic Peptide (BNP) (03/20/2023 11:11 AM EDT) [facility] B Type Natriuretic Peptide 94 <100 pg/mL [facility] Comment:For those patients w ho are being treated with Natrecor(nesiritide, recombinant BNP), BNP testing should beperformed at least two hours post treatment in order toensure that only endogenous levels of BNP are detected. 03/20/2023 11:1 1 AM EDT 03/20/2023 11:19 AM EDT [facility] External Provider LAB BLO OD ORDERABLES Final Result Performing Organization Address [facility] Co de Phone Number [facility] [address] [place] [phone] * Magnesium (03/20/2023 11:11 AM EDT) [facility] Magnesium 2.1 1.6 - 2.6 mg/dL [facility] 03/20/2023 11:1 1 AM EDT 03/20/2023 11:19 AM EDT [facility] External Provider LAB BLO OD ORDERABLES Final Result [facility] [address] [place] [phone] * (ABNORMAL) Basic Metabolic Panel (03/20/2023 11:11 AM EDT) Sodium 145 135 - 145 mmol/L [facility] Potassium 4.4 3.3 - 5.1 mmol/L [facility] Chloride 109(H) 96 - 108 mmol/L [facility] Carbon Dioxide 29 22 - 29 mmol/L [facility] Anion Gap 11(L) 12 - 20 [facility] Urea Nitrogen (BUN) 15 9 - 16 mg/dL [facility] Creatinine, Serum 0.73 0.5 - 1.4 mg/dL [facility] Creatinine Clr Calc Pharmacy 63.7 [facility] Comment:Provided height and weight: 160.02 cm,80.2 kg.eGFR (calculated from the MDRD study equation) and eCrCl(calculated from the Cockcroft-Gault equation) are based ondifferent parameters and may not yield comparable results.If eCrCl result is absurd, please check patient'sheight/weight. Estimated Glomerular Filt Rate >60 [facility] Comment:NOTE: For -Am erican individuals, multiply the result by 1.210.Chronic Kidney Disease: Estimated GFR < 60 mL/min/1.11p2Hxzbri Kidney Disease: Estimated GFR < 15 mL/min/1.73m2 Glucose 92 60 - 115 mg/dL [facility] Calcium 9.4 8.4 - 10.2 mg/dL [facility] 03/20/2023 11:1 1 AM EDT 03/20/2023 11:19 AM EDT [facility] External Provider LAB BLO OD ORDERABLES Final Result Performing Organization Address [facility] Co de Phone Number [facility] [address] [place] [phone] * (ABNORMAL) Hepatic Function Panel (03/20/2023 11:11 AM EDT) Bilirubin, Total 0.8 0.0 - 1.0 mg/dL [facility] Bilirubin, Direct 0.2 0.0 - 0.5 mg/dL [facility] Aspartate Amino Transferase 17 5 - 31 U/L [facility] Alanine Aminotransferase 12 0 - 31 U/L [facility] Total Protein 6.2(L) 6.5 - 8.0 g/dL [facility] Albumin Level 3.8 3.5 - 5.0 g/dL [facility] Alkaline Phosphatase 58 39 - 117 U/L [facility] 03/20/2023 11:1 1 AM EDT 03/20/2023 11:19 AM EDT [facility] External Provider LAB BLO OD ORDERABLES Final Result Performing Organization Address [facility] de Phone Number [facility] [address] [place] [phone] * COVID-19 ID NOW (BISHOP) (03/20/2023 11:11 AM EDT) IDNOW SERIAL# [id number] [facility] COVID-19 TEST Negative Negative [facility] COVID-19 NOTE See Note [facility] Comment: Results are for the identification of SARS-CoV2 RNA. TheSARS-CoV2 RNA is generally detectable in respiratory samplesduring the acute phase of infection. Positive results areindicative of the presence of SARS-CoV-2 RNA; clinicalcorrelation with patient history and other diagnosticinformation is necessary to determine patient infectionstatus. Positive results do not rule out bacterial infectionor co- infection with other viruses.Testing facilities within the [facility] and [facility] are required to report all positive [...] use by authorized laboratories.Testing performed on the [employer] NOW utilizing NAAT. 03/20/2023 11:1 1 AM EDT 03/20/2023 11:18 AM EDT [facility] Exter nal Provider LAB MOLECULAR DIAGNOSTICS ORDERABLES Final Result [facility] [address] [place] [phone] * (ABNORMAL) CBC auto differential (03/20/2023 11:11 AM EDT) White Blood Count 6.0 4.8 - 10.8 X10*3/uL [facility] Red Blood Count 3.33(L) 4.20 - 5.50 X10*6/uL [facility] Hemoglobin 10.0(L) 12.0 - 16.0 g/dl [facility] Hematocrit 32.1(L) 37.0 - 47.0 % [facility] Mean Corpuscular Volume 96.4 80.0 - 98.0 fL [facility] Mean Corpuscular Hemoglobin 30.0 27.0 - 33.0 pg [facility] Mean Corpuscular HGB Conc 31.2 31.0 - 35.0 g/dl [facility] Red Cell Distribution Width 15.0 11.0 - 16.0 % [facility] Platelet Count 71(L) 160 - 400 X10*3/uL [facility] Neutrophils Percent Auto 71.3 45 - 73 % [facility] Imm Gran Pct Auto 0.2 0.0 - 0.4 % [facility] Lymphocytes Percent Auto 14.5(L) 20 - 40 % [facility] Monocytes Percent Auto 9.6 2 - 11 % [facility] Eosinophils Percent Auto 3.7 0 - 4 % [facility] Basophils Percent Auto 0.7 0 - 2 % [facility] NRBC Pct Auto 0.0 0.0 - 0.2 /100WBC [facility] Neutrophils Absolute Auto 4.3 2.0 - 8.3 x10*3/uL [facility] Imm Gran Abs Auto 0.01 0.00 - 0.03 X10*3/uL [facility] Lymphocytes Absolute Auto 0.9(L) 1.2 - 4.9 X10*3/uL [facility] Monocytes Absolute Auto 0.6 0.1 - 1.2 X10*3/uL [facility] Eosinophils Absolute Auto 0.2 0.0 - 0.4 X10*3/uL [facility] Basophils Absolute Auto 0.0 0.0 - 0.2 X10*3/uL [facility] NRBC Abs Auto 0.000 0.0 - 0.012 X10*3/uL [facility] 03/20/2023 11:1 1 AM EDT 03/20/2023 11:19 AM EDT us [facility] External Provider LAB BLO OD ORDERABLES Final Result [facility] [address], [place] [phone] * Prothrombin Time-INR (03/20/2023 11:11 AM EDT) Prothrombin Time 13.0 10.0 - 13.1 SEC [facility] INTERNATIONAL NORM RATIO 1.1 0.9 - 1.1 [facility] Comment:INTERNATIONAL NORMAL IZED RATIO (INR) [...] AM EDT 03/20/2023 11:19 AM EDT us [facility] External Provider LAB BLO OD ORDERABLES Final Result [facility] [address] [place] [phone] * (ABNORMAL) CBC (12/09/2022 5:40 AM EDT) White Blood Count 6.7 4.8 - 10.8 X10*3/uL [facility] Red Blood Count 2.88(L) 4.20 - 5.50 X10*6/uL [facility] Hemoglobin 7.0(LL) 12.0 - 16.0 g/dl [facility] Comment:Critical HGB sent by a secure message and confirmed byMERVIN MOSQUERA on 12/09/22 at 0726 by CODIE. Hematocrit 24.2(L) 37.0 - 47.0 % [facility] Mean Corpuscular Volume 84.0 80.0 - 98.0 fL [facility] Mean Corpuscular Hemoglobin 24.3(L) 27.0 - 33.0 pg [facility] Mean Corpuscular HGB Conc 28.9(L) 31.0 - 35.0 g/dl [facility] Red Cell Distribution Width 19.8(H) 11.0 - 16.0 % [facility] Platelet Count 59(L) 160 - 400 X10*3/uL [facility] NRBC Pct Auto 0.0 0.0 - 0.2 /100WBC [facility] NRBC Abs Auto 0.000 0.0 - 0.012 X10*3/uL [facility] 12/09/2022 5:40 AM EDT 12/09/2022 6:43 AM EDT us [facility] External Provider LAB BLO OD ORDERABLES Final Result [facility] [address] [place] [phone] * (ABNORMAL) CBC auto differential (12/08/2022 5:58 AM EDT) White Blood Count 8.5 4.8 - 10.8 X10*3/uL [facility] Red Blood Count 2.92(L) 4.20 - 5.50 X10*6/uL [facility] Hemoglobin 6.9(LL) 12.0 - 16.0 g/dl [facility] Comment:Critical HGB sent by a secure message and confirmed byYUDITH on 12/08/22 at 0846 by YAZAN. Hematocrit 24.2(L) 37.0 - 47.0 % [facility] Mean Corpuscular Volume 82.9 80.0 - 98.0 fL [facility] Mean Corpuscular Hemoglobin 23.6(L) 27.0 - 33.0 pg [facility] Mean Corpuscular HGB Conc 28.5(L) 31.0 - 35.0 g/dl [facility] Red Cell Distribution Width 19.7(H) 11.0 - 16.0 % [facility] Platelet Count 77(L) 160 - 400 X10*3/uL [facility] Neutrophils Percent Auto 77.9(H) 45 - 73 % [facility] Imm Gran Pct Auto 0.4 0.0 - 0.4 % [facility] Lymphocytes Percent Auto 8.6(L) 20 - 40 % [facility] Monocytes Percent Auto 12.5(H) 2 - 11 % [facility] Eosinophils Percent Auto 0.2 0 - 4 % [facility] Basophils Percent Auto 0.4 0 - 2 % [facility] NRBC Pct Auto 0.0 0.0 - 0.2 /100WBC [facility] Neutrophils Absolute Auto 6.7 2.0 - 8.3 x10*3/uL [facility] Imm Gran Abs Auto 0.03 0.00 - 0.03 X10*3/uL [facility] Lymphocytes Absolute Auto 0.7(L) 1.2 - 4.9 X10*3/uL [facility] Monocytes Absolute Auto 1.1 0.1 - 1.2 X10*3/uL [facility] Eosinophils Absolute Auto 0.0 0.0 - 0.4 X10*3/uL [facility] Basophils Absolute Auto 0.0 0.0 - 0.2 X10*3/uL [facility] NRBC Abs Auto 0.000 0.0 - 0.012 X10*3/uL [facility] 12/08/2022 5:58 AM EDT 12/08/2022 6:50 AM EDT us [facility] External Provider LAB BLO OD ORDERABLES Edited Result - Final [facility] [address] [place] [phone] * (ABNORMAL) Basic Metabolic Panel, Fasting (12/08/2022 5:58 AM EDT) Sodium 140 135 - 145 mmol/L [facility] Potassium 4.3 3.3 - 5.1 mmol/L [facility] Chloride 106 96 - 108 mmol/L [facility] Carbon Dioxide 24 22 - 29 mmol/L [facility] Anion Gap 14 12 - 20 [facility] Urea Nitrogen (BUN) 13 9 - 16 mg/dL [facility] Creatinine, Serum 0.73 0.5 - 1.4 mg/dL [facility] Creatinine Clr Calc Pharmacy 62.7 [facility] Comment:Provided height and weight: 160.02 cm,78.01 kg.eGFR (calculated from the MDRD study equation) and eCrCl(calculated from the Cockcroft-Gault equation) are based ondifferent parameters and may not yield comparable results.If eCrCl result is absurd, please check patient'sheight/weight. Estimated Glomerular Filt Rate >60 [facility] Comment:NOTE: For -Am erican individuals, multiply the result by 1.210.Chronic Kidney Disease: Estimated GFR < 60 mL/min/1.08c8Humwyg Kidney Disease: Estimated GFR < 15 mL/min/1.73m2 Glucose Fasting 110(H) 60 - 99 mg/dL [facility] Comment:A fasting glucose fr om 100-125 mg/dl is considered impaired(pre-diabetes). Calcium 8.2(L) 8.4 - 10.2 mg/dL [facility] 12/08/2022 5:58 AM EDT 12/08/2022 6:58 AM EDT [facility] External Provider LAB BLO OD ORDERABLES Final Result Performing Organization Address [facility] Co de Phone Number [facility] [address] [place] [phone] * Slide Review (12/07/2022 4:40 PM EDT) Slide Review VERIFIED [facility] 12/07/2022 4:40 PM EDT 12/07/2022 4:48 PM EDT [facility] External Provider LAB BLO OD ORDERABLES Final Result Performing Organization Address [facility] Co de Phone Number [facility] [address] [place] [phone] * (ABNORMAL) CBC auto differential (12/07/2022 4:40 PM EDT) White Blood Count 7.5 4.8 - 10.8 X10*3/uL [facility] Red Blood Count 3.04(L) 4.20 - 5.50 X10*6/uL [facility] Hemoglobin 7.3(L) 12.0 - 16.0 g/dl [facility] Hematocrit 25.3(L) 37.0 - 47.0 % [facility] Mean Corpuscular Volume 83.2 80.0 - 98.0 fL [facility] Mean Corpuscular Hemoglobin 24.0(L) 27.0 - 33.0 pg [facility] Mean Corpuscular HGB Conc 28.9(L) 31.0 - 35.0 g/dl [facility] Red Cell Distribution Width 19.8(H) 11.0 - 16.0 % [facility] Platelet Count 70(L) 160 - 400 X10*3/uL [facility] Neutrophils Percent Auto 89.8(H) 45 - 73 % [facility] Imm Gran Pct Auto 0.3 0.0 - 0.4 % [facility] Lymphocytes Percent Auto 5.0(L) 20 - 40 % [facility] Monocytes Percent Auto 3.4 2 - 11 % [facility] Eosinophils Percent Auto 0.8 0 - 4 % [facility] Basophils Percent Auto 0.7 0 - 2 % [facility] NRBC Pct Auto 0.0 0.0 - 0.2 /100WBC [facility] Neutrophils Absolute Auto 6.8 2.0 - 8.3 x10*3/uL [facility] Imm Gran Abs Auto 0.02 0.00 - 0.03 X10*3/uL [facility] Lymphocytes Absolute Auto 0.4(L) 1.2 - 4.9 X10*3/uL [facility] Monocytes Absolute Auto 0.3 0.1 - 1.2 X10*3/uL [facility] Eosinophils Absolute Auto 0.1 0.0 - 0.4 X10*3/uL [facility] Basophils Absolute Auto 0.1 0.0 - 0.2 X10*3/uL [facility] NRBC Abs Auto 0.000 0.0 - 0.012 X10*3/uL [facility] 12/07/2022 4:40 PM EDT 12/07/2022 4:48 PM EDT [facility] External Provider LAB BLO OD ORDERABLES Edited Result - Final [facility] [address] [place] [phone] * COVID-19 ID NOW (BISHOP) (12/07/2022 1:41 PM EDT) IDNOW SERIAL# [id number] [facility] COVID-19 TEST Negative Negative [facility] Comment:[place] [id number] COVID-19 NOTE See Note [facility] Comment: Results are for the identification of SARS-CoV2 RNA. TheSARS-CoV2 RNA is generally detectable in respiratory samplesduring the acute phase of infection. Positive results areindicative of the presence of SARS-CoV-2 RNA; clinicalcorrelation with patient history and other diagnosticinformation is necessary to determine patient infectionstatus. Positive results do not rule out bacterial infectionor co- infection with other viruses.Testing facilities within the [facility] are required to report all positive [...] 1:41 PM EDT 12/07/2022 1:58 PM EDT [facility] Exter nal Provider LAB MOLECULAR DIAGNOSTICS ORDERABLES Final Result [facility] [address], [place] [phone] * (ABNORMAL) CBC auto differential (12/07/2022 1:25 PM EDT) White Blood Count 5.6 4.8 - 10.8 X10*3/uL [facility] Red Blood Count 3.15(L) 4.20 - 5.50 X10*6/uL [facility] Hemoglobin 7.5(L) 12.0 - 16.0 g/dl [facility] Hematocrit 26.2(L) 37.0 - 47.0 % [facility] Mean Corpuscular Volume 83.2 80.0 - 98.0 fL [facility] Mean Corpuscular Hemoglobin 23.8(L) 27.0 - 33.0 pg [facility] Mean Corpuscular HGB Conc 28.6(L) 31.0 - 35.0 g/dl [facility] Red Cell Distribution Width 19.8(H) 11.0 - 16.0 % [facility] Platelet Count 69(L) 160 - 400 X10*3/uL [facility] Neutrophils Percent Auto 76.4(H) 45 - 73 % [facility] Imm Gran Pct Auto 0.2 0.0 - 0.4 % [facility] Lymphocytes Percent Auto 11.9(L) 20 - 40 % [facility] Monocytes Percent Auto 9.0 2 - 11 % [facility] Eosinophils Percent Auto 1.6 0 - 4 % [facility] Basophils Percent Auto 0.9 0 - 2 % [facility] NRBC Pct Auto 0.0 0.0 - 0.2 /100WBC [facility] Neutrophils Absolute Auto 4.3 2.0 - 8.3 x10*3/uL [facility] Imm Gran Abs Auto 0.01 0.00 - 0.03 X10*3/uL [facility] Lymphocytes Absolute Auto 0.7(L) 1.2 - 4.9 X10*3/uL [facility] Monocytes Absolute Auto 0.5 0.1 - 1.2 X10*3/uL [facility] Eosinophils Absolute Auto 0.1 0.0 - 0.4 X10*3/uL [facility] Basophils Absolute Auto 0.1 0.0 - 0.2 X10*3/uL [facility] NRBC Abs Auto 0.000 0.0 - 0.012 X10*3/uL [facility] 12/07/2022 1:25 PM EDT 12/07/2022 1:27 PM EDT [facility] External Provider LAB BLO OD ORDERABLES Final Result Performing Organization Address [facility] Co de Phone Number [facility] [address] [place] [phone] * (ABNORMAL) B Type Natriuretic Peptide (BNP) (10/12/2022 4:50 PM EST) B Type Natriuretic Peptide 135(H) <100 pg/mL [facility] Comment:For those patients w ho are being treated with Natrecor(nesiritide, recombinant BNP), BNP testing should beperformed at least two hours post treatment in order toensure that only endogenous levels of BNP are detected. 10/12/2022 4:50 PM EST 10/12/2022 6:16 PM EST [facility] External Provider LAB BLO OD ORDERABLES Final Result Performing Organization Address [facility] Co de Phone Number [facility] [address] [place] [phone] * Slide Review (10/12/2022 4:50 PM EST) Slide Review VERIFIED [facility] 10/12/2022 4:50 PM EST 10/12/2022 5:10 PM EST us [facility] External Provider LAB BLO OD ORDERABLES Final Result [facility] [address] [place] [phone] * (ABNORMAL) CBC auto differential (10/12/2022 4:50 PM EST) White Blood Count 5.5 4.8 - 10.8 X10*3/uL [facility] Red Blood Count 2.42(L) 4.20 - 5.50 X10*6/uL [facility] Hemoglobin 4.8(LL) 12.0 - 16.0 g/dl [facility] Comment:Results of HGB, HCT called to and read back by Roseline 10/12/22 at 1730 by GRIS. Hematocrit 18.5(LL) 37.0 - 47.0 % [facility] Mean Corpuscular Volume 76.4(L) 80.0 - 98.0 fL [facility] Mean Corpuscular Hemoglobin 19.8(L) 27.0 - 33.0 pg [facility] Mean Corpuscular HGB Conc 25.9(L) 31.0 - 35.0 g/dl [facility] Red Cell Distribution Width 17.9(H) 11.0 - 16.0 % [facility] Platelet Count 54(L) 160 - 400 X10*3/uL [facility] Neutrophils Percent Auto 67.6 45 - 73 % [facility] Imm Gran Pct Auto 0.2 0.0 - 0.4 % [facility] Lymphocytes Percent Auto 20.0 20 - 40 % [facility] Monocytes Percent Auto 9.9 2 - 11 % [facility] Eosinophils Percent Auto 1.8 0 - 4 % [facility] Basophils Percent Auto 0.5 0 - 2 % [facility] NRBC Pct Auto 0.0 0.0 - 0.2 /100WBC [facility] Neutrophils Absolute Auto 3.7 2.0 - 8.3 x10*3/uL [facility] Imm Gran Abs Auto 0.01 0.00 - 0.03 X10*3/uL [facility] Lymphocytes Absolute Auto 1.1(L) 1.2 - 4.9 X10*3/uL [facility] Monocytes Absolute Auto 0.5 0.1 - 1.2 X10*3/uL [facility] Eosinophils Absolute Auto 0.1 0.0 - 0.4 X10*3/uL [facility] Basophils Absolute Auto 0.0 0.0 - 0.2 X10*3/uL [facility] NRBC Abs Auto 0.000 0.0 - 0.012 X10*3/uL [facility] 10/12/2022 4:50 PM EST 10/12/2022 5:10 PM EST us [facility] External Provider LAB BLO OD ORDERABLES Edited Result - Final Performing Organization Address City/State/[facility] Co de Phone Number [facility] [address] [place] [address] [phone] documented in this encounter Visit Diagnoses Not on filedocumented in this encounter Care Teams Wind Energy Mechanic Relationship Specialty Start Date End Date Name, MD Joseph [address] [place] [address] PCP - General Family Medicine 01/21/22 documented as of this encounter
--- OUTSIDE RECORDS SUMMARY | 2025-07-30 04:34 | XMS_ITS | Encounter Summary ---
Author Organization [employer] Address [address] [facility] 7t [place] [address] Care Team Providers Care Hydroelectric Operator Name Role Phone Name, Joseph KIM Primary Care Provider [phone] Encounter Details Date Type Department Care Team ([facility] st Contact Info) Description 07/04/2025 Orders Only [facility] [address] [place], [place] [phone] Name, MD Joseph [address] [place], [place] [phone] Chronic anemia; History of GI bleed Social [...] 08/29/2025 9:30 AM EST Telemedicine [facility] [address] [place] [address] Kaitlynn Landrum RN 09/17/2025 11:15 AM EST Office Visit [facility] [address] [place] [address] NameJoseph MD [address] [place] [address] documented as of this encounter Visit Diagnoses Diagnosis Chronic anemia Unspecified anemia History of GI bleed documented in this encounter Additional Health Concerns Assessment Noted Time PHQ-9 Depression Total Score: 2 04/04/20 25 11:39 AM EDT documented as of this encounter Care Teams Hydroelectric Operator Relationship Specialty Start Date End Date NameJoseph MD [address] [place] [address] PCP - General Family Medicine 01/21/22 documented as of this encounter
--- OUTSIDE RECORDS SUMMARY | 2025-07-30 04:34 | XMS_ITS | Encounter Summary ---
Author Organization [employer] Address 75 [facility] 7t [place] [address] Care Team Providers Care Asbestos Wire Finisher Name Role Phone Name, Joseph KIM Primary Care Provider [phone] Reason for Visit * Reason Onset Date Comments Med Refill 08/28/2023 Encounter Details Date Type Department Care Team ([facility] st Contact Info) Description 08/28/2023 Telephone [facility] [address] [place], [place] [phone] Name, MD Joseph [address] [place], [place] [phone] Med Refill Social History Tobacco Use Types [...] t he electric, gas, oil or water [employer] threatened to shut off services in your [...] inhaler to be sent to [facility] - [address] documented in this encounter Plan of Treatment Upcoming Encounters Date Type Department Care Team (Late st Contact Info) Description 08/29/2025 9:30 AM EST Telemedicine [facility] [address] [place] [address] Kaitlynn Landrum RN 09/17/2025 11:15 AM EST Office Visit [facility] [address] [place] [address] Name, MD Joseph [address] [place] [address] documented as of this encounter Visit Diagnoses Not on filedocumented in this encounter Additional Health Concerns Assessment Noted Time PHQ-9 Depression Total Score: 4 09/22/19 11:14 AM EST documented as of this encounter Care Teams Asbestos Wire Finisher Relationship Specialty Start Date End Date Name, MD Joseph [address] [place] [address] PCP - General Family Medicine 01/21/22 documented as of this encounter
--- OUTSIDE RECORDS SUMMARY | 2025-07-30 04:34 | XMS_ITS | Encounter Summary ---
Author Organization [employer] Address 75 [facility] 7t [place] [address] Care Team Providers Care Food Clerk Name Role Phone Name, Joseph KIM Primary Care Provider [phone] Encounter Details Date Type Department Care Team ([facility] st Contact Info) Description 06/27/2025 Orders Only [facility] [address] [place], [place] [phone] Name, MD Joseph 230 [place], [place] [phone] Chronic anemia; History of GI bleed Social [...] EST Telemedicine [facility] [address] [place] [address] Kaitlynn Landrum RN 09/17/2025 11:15 AM EST Office Visit [facility] [address] [place] [address] NameJoseph MD [address] [place] [address] documented as of this encounter Visit Diagnoses Diagnosis Chronic anemia Unspecified anemia History of GI bleed documented in this encounter Additional Health Concerns Assessment Noted Time PHQ-9 Depression Total Score: 2 04/04/20 25 11:39 AM EDT documented as of this encounter Care Teams Food Clerk Relationship Specialty Start Date End Date NameJoseph MD [address] [place] [address] PCP - General Family Medicine 01/21/22 documented as of this encounter
--- OUTSIDE RECORDS SUMMARY | 2025-07-30 04:34 | XMS_ITS | Encounter Summary ---
Author Organization [employer] Address 75 [facility] 7t [place] [address] Care Team Providers Care Title Lawyer Name Role Phone Name, Joseph KIM Primary Care Provider [phone] Reason for Visit * Reason Onset Date Comments Med Refill 10/08/2024 Encounter Details Date Type Department Care Team ([facility] st Contact Info) Description 10/08/[address] [facility] 230 [place], [place] [phone] Name, MD Joseph [address] [place], [place] [phone] Med Refill Social History Tobacco Use Types [...] Fe) MG tablet To be sent to: [facility] [place] [address] Reuben documented in this encounter Plan of Treatment Upcoming Encounters Date Type Department Care Team (Late st Contact Info) Description 08/29/2025 9:30 AM EST Telemedicine [facility] [address] [place] [address] Kaitlynn Landrum RN 09/17/2025 11:15 AM EST Office Visit [facility] [address] [place] [address] Name, MD Joseph [address] [place] [address] documented as of this encounter Visit Diagnoses Not on filedocumented in this encounter Additional Health Concerns Assessment Noted Time PHQ-9 Depression Total Score: 0 01/30/20 24 11:07 AM EDT documented as of this encounter Care Teams Title Lawyer Relationship Specialty Start Date End Date Name, MD Joseph [address] [place] [address] PCP - General Family Medicine 01/21/22 documented as of this encounter
--- OUTSIDE RECORDS SUMMARY | 2025-07-30 04:35 | XMS_ITS | Encounter Summary ---
Author Organization [employer] Address 75 [facility] 7t [place] [address] Care Team Providers Care Shipping Clerk/Admin Name Role Phone Name, Joseph KIM Primary Care Provider [phone] Encounter Details Date Type Department Care Team (Late st Contact Info) Description 08/02/2024 Orders Only [facility] [address] [place], [place] [phone] Name, MD Joseph [address] [place], [place] [phone] Iron deficiency anemia, unspecified iron deficiency anemia [...] Info) Description 08/29/2025 9:30 AM EST Telemedicine [facility] [address] [place] [address] Kaitlynn Landrum RN 09/17/2025 11:15 AM EST Office Visit [address] [address] Name, MD Joseph [address] [place] [phone] documented as of this encounter Visit Diagnoses Diagnosis Iron deficiency anemia, unspecified iron deficiency anemia type documented in this encounter Additional Health Concerns Assessment Noted Time PHQ-9 Depression Total Score: 0 01/30/20 24 11:07 AM EDT documented as of this encounter Care Teams Shipping Clerk/Admin Relationship Specialty Start Date End Date Name, MD Joseph [address] [place] [address] PCP - General Family Medicine 01/21/22 documented as of this encounter
--- OUTSIDE RECORDS SUMMARY | 2025-07-30 04:35 | XMS_ITS | Encounter Summary ---
Author Organization [employer] Address 75 [facility] 7t [place] [address] Care Team Providers Care Credit Review Manager Name Role Phone Name, Joseph KIM Primary Care Provider [phone] Encounter Details Date Type Department Care Team (Late st Contact Info) Description 07/12/2024 Orders Only [facility] [address] [place], [place] [phone] Name, MD Joseph [address] [place], [place] [phone] Iron deficiency anemia, unspecified iron deficiency anemia [...] Info) Description 08/29/2025 9:30 AM EST Telemedicine [facility] [address] [place] [address] Kaitlynn Landrum RN 09/17/2025 11:15 AM EST Office Visit [address] [address] Name, MD Joseph [address] [place] [address] documented as of this encounter Visit Diagnoses Diagnosis Iron deficiency anemia, unspecified iron deficiency anemia type documented in this encounter Additional Health Concerns Assessment Noted Time PHQ-9 Depression Total Score: 0 01/30/20 24 11:07 AM EDT documented as of this encounter Care Teams Credit Review Manager Relationship Specialty Start Date End Date Name, MD Joseph [address] [place] [address] PCP - General Family Medicine 01/21/22 documented as of this encounter
--- OUTSIDE RECORDS SUMMARY | 2025-07-30 04:35 | XMS_ITS | Encounter Summary ---
Author Organization [employer] Address 75 [facility] 7t [place] [address] Care Team Providers Care Shipping Weigher Name Role Phone Name, Joseph KIM Primary Care Provider [phone] Encounter Details Date Type Department Care Team ([facility] st Contact Info) Description 06/20/2025 Orders Only [facility] 230 [place], [place] [phone] Name, MD Joseph [address] [place], [place] [phone] Chronic anemia; History of GI bleed Social [...] Info) Description 08/29/2025 9:30 AM EST Telemedicine [facility] [address] [place] [address] Kaitlynn Landrum RN 09/17/2025 11:15 AM EST Office Visit [facility] [address] [place] [address] NameJoseph MD [address] [place] [address] documented as of this encounter Visit Diagnoses Diagnosis Chronic anemia Unspecified anemia History of GI bleed documented in this encounter Additional Health Concerns Assessment Noted Time PHQ-9 Depression Total Score: 2 04/04/20 25 11:39 AM EDT documented as of this encounter Care Teams Shipping Weigher Relationship Specialty Start Date End Date NameJoseph MD [address] [place] [address] PCP - General Family Medicine 01/21/22 documented as of this encounter
--- OUTSIDE RECORDS SUMMARY | 2025-07-30 04:35 | XMS_ITS | Encounter Summary ---
Author Organization [employer] Address 75 [facility] 7t [place] [address] Care Team Providers Care Dye Maker Name Role Phone Name, Joseph KIM Primary Care Provider [phone] Encounter Details Date Type Department Care Team (Late st Contact Info) Description 07/19/2024 Orders Only [facility] [address] [place], [place] [phone] Name, MD Joseph [address] [place], [place] [phone] Iron deficiency anemia, unspecified iron deficiency anemia [...] Description 08/29/2025 9:30 AM EST Telemedicine [address] [address] Kaitlynn Landrum RN 09/17/2025 11:15 AM EST Office Visit [address] [address] Name, MD Joseph [address] [place] [address] documented as of this encounter Procedures Procedure Name Priority Date/Time Associated Diagnosis Comments CBC WITH AUTO DIFFERENTIAL Routine 07/23/2024 2:15 PM EST Iron deficiency anemia, unspecified iron deficiency anemia type documented in this encounter Results * (ABNORMAL) CBC auto differential (07/23/2024 2:15 PM EST) White Blood Count 9.9 4.8 - 10.8 X10*3/uL [facility] Red Blood Count 3.50(L) 4.20 - 5.50 X10*6/uL [facility] Hemoglobin 9.8(L) 12.0 - 16.0 g/dl [facility] Hematocrit 32.9(L) 37.0 - 47.0 % [facility] Mean Corpuscular Volume 94.0 80.0 - 98.0 fL [facility] Mean Corpuscular Hemoglobin 28.0 27.0 - 33.0 pg [facility] Mean Corpuscular HGB Conc 29.8(L) 31.0 - 35.0 g/dl [facility] Red Cell Distribution Width 19.3(H) 11.0 - 16.0 % [facility] Platelet Count 88(L) 160 - 400 X10*3/uL [facility] Comment:Confirmed by smear. Mean Platelet Volume TNP 9.4 - 12.3 fL [facility] Neutrophils Percent Auto 76.1(H) 45 - 73 % [facility] Imm Gran Pct Auto 0.3 0.0 - 0.4 % [facility] Lymphocytes Percent Auto 12.0(L) 20 - 40 % [facility] Monocytes Percent Auto 9.2 2 - 11 % [facility] Eosinophils Percent Auto 1.8 0 - 4 % [facility] Basophils Percent Auto 0.6 0 - 2 % [facility] NRBC Pct Auto 0.0 0.0 - 0.2 /100WBC [facility] Neutrophils Absolute Auto 7.6 2.0 - 8.3 x10*3/uL [facility] Imm Gran Abs Auto 0.03 0.00 - 0.03 X10*3/uL [facility] Lymphocytes Absolute Auto 1.2 1.2 - 4.9 X10*3/uL [facility] Monocytes Absolute Auto 0.9 0.1 - 1.2 X10*3/uL [facility] Eosinophils Absolute Auto 0.2 0.0 - 0.4 X10*3/uL [facility] Basophils Absolute Auto 0.1 0.0 - 0.2 X10*3/uL [facility] NRBC Abs Auto 0.000 0.0 - 0.012 X10*3/uL [facility] Blood Venous blood specimen / Unknown 07/23/2024 2:15 PM EST 07/23/2024 4:10 PM EST us Joseph Magana MD LAB BLOOD ORDERABLES Edited Resu lt - Final [facility] [address] [place], [place] [phone] documented in this encounter Visit Diagnoses Diagnosis Iron deficiency anemia, unspecified iron deficiency anemia type documented in this encounter Additional Health Concerns Assessment Noted Time PHQ-9 Depression Total Score: 0 01/30/20 24 11:07 AM EDT documented as of this encounter Care Teams Dye Maker Relationship Specialty Start Date End Date Name, MD Joseph [address] [place] [address] PCP - General Family Medicine 01/21/22 documented as of this encounter
--- OUTSIDE RECORDS SUMMARY | 2025-07-30 04:35 | XMS_ITS | Encounter Summary ---
Author Organization [employer] Address [address] [facility] 7t [place] [address] Care Team Providers Care Human Capital Manager Name Role Phone Name, Joseph KIM Primary Care Provider Encounter Details Date Type Department Care Team (Late st Contact Info) Description 07/05/2024 Orders Only [facility] [address] [place], [place] [phone] Name, MD Joseph 230 [place], [place] [phone] Iron deficiency anemia, unspecified iron deficiency anemia [...] 08/29/2025 9:30 AM EST Telemedicine [facility] [address] [place] [address] Kaitlynn Landrum RN 09/17/2025 11:15 AM EST Office Visit [address] [address] Name, MD Joseph [address] [place] [address] documented as of this encounter Visit Diagnoses Diagnosis Iron deficiency anemia, unspecified iron deficiency anemia type documented in this encounter Additional Health Concerns Assessment Noted Time PHQ-9 Depression Total Score: 0 01/30/20 24 11:07 AM EDT documented as of this encounter Care Teams Human Capital Manager Relationship Specialty Start Date End Date Name, MD Joseph [address] [place] [address] PCP - General Family Medicine 01/21/22 documented as of this encounter
--- OUTSIDE RECORDS SUMMARY | 2025-07-30 04:35 | XMS_ITS | Encounter Summary ---
Author Organization [employer] Address 75 [facility] 7t [place] [address] Care Team Providers Care Yard Hostler Name Role Phone Name, Joseph KIM Primary Care Provider Encounter Details Date Type Department Care Team (Late st Contact Info) Description 08/30/2024 Orders Only [facility] [address] [place], [place] [phone] Name, MD Joseph [address] [place], [place] [phone] Iron deficiency anemia, unspecified iron deficiency anemia [...] Info) Description 08/29/2025 9:30 AM EST Telemedicine [facility] [address] [place] [address] Kaitlynn Landrum RN 09/17/2025 11:15 AM EST Office Visit [address] [address] Name, MD Joseph [address] [place] [address] documented as of this encounter Visit Diagnoses Diagnosis Iron deficiency anemia, unspecified iron deficiency anemia type documented in this encounter Additional Health Concerns Assessment Noted Time PHQ-9 Depression Total Score: 0 01/30/20 24 11:07 AM EDT documented as of this encounter Care Teams Yard Hostler Relationship Specialty Start Date End Date Name, MD Joseph [address] [place] [address] PCP - General Family Medicine 01/21/22 documented as of this encounter
--- OUTSIDE RECORDS SUMMARY | 2025-07-30 04:35 | XMS_ITS | Encounter Summary ---
Author Organization [email or web address] Address [address] [facility] 7t [place] [address] Care Team Providers Care Paving Block Cutter Name Role Phone Name, Joseph KIM Primary Care Provider [phone] Encounter Details Date Type Department Care Team (Late st Contact Info) Description 06/28/2024 Orders Only [facility] 230 [place], [place] [phone] Name, MD Joseph [address] [place], [place] [phone] Iron deficiency anemia, unspecified iron deficiency anemia [...] Description 08/29/2025 9:30 AM EST Telemedicine [facility] [address] [place] [address] Kaitlynn Landrum RN 09/17/2025 11:15 AM EST Office Visit [facility] [address] [place] [address] Name, MD Joseph [address] [place] [address] documented as of this encounter Procedures Procedure Name Priority Date/Time Associated Diagnosis Comments CBC WITH AUTO DIFFERENTIAL Routine 07/03/2024 2:09 PM EDT Iron deficiency anemia, unspecified iron deficiency anemia type documented in this encounter Results * (ABNORMAL) CBC auto differential (07/03/2024 2:09 PM EDT) White Blood Count 7.3 4.8 - 10.8 X10*3/uL [facility] Red Blood Count 2.26(L) 4.20 - 5.50 X10*6/uL [facility] Hemoglobin 6.0(LL) 12.0 - 16.0 g/dl [facility] Comment:Results of HCG perez d to and read back by DR Cordova 07/03/24 at 1840 by ASHA. Hematocrit 20.4(LL) 37.0 - 47.0 % [facility] Comment:Results of HCT perez d to and read back by DR Cordova 07/03/24 at 1840 by ASHA. Mean Corpuscular Volume 90.3 80.0 - 98.0 fL [facility] Mean Corpuscular Hemoglobin 26.5(L) 27.0 - 33.0 pg [facility] Mean Corpuscular HGB Conc 29.4(L) 31.0 - 35.0 g/dl [facility] Red Cell Distribution Width 17.9(H) 11.0 - 16.0 % [facility] Platelet Count 60(L) 160 - 400 X10*3/uL [facility] Mean Platelet Volume TNP 9.4 - 12.3 fL [facility] Neutrophils Percent Auto 82.0(H) 45 - 73 % [facility] Imm Gran Pct Auto 0.5(H) 0.0 - 0.4 % [facility] Lymphocytes Percent Auto 9.3(L) 20 - 40 % [facility] Monocytes Percent Auto 7.0 2 - 11 % [facility] Eosinophils Percent Auto 0.8 0 - 4 % [facility] Basophils Percent Auto 0.4 0 - 2 % [facility] NRBC Pct Auto 0.0 0.0 - 0.2 /100WBC [facility] Neutrophils Absolute Auto 6.0 2.0 - 8.3 x10*3/uL [facility] Imm Gran Abs Auto 0.04(H) 0.00 - 0.03 X10*3/uL [facility] Lymphocytes Absolute Auto 0.7(L) 1.2 - 4.9 X10*3/uL [facility] Monocytes Absolute Auto 0.5 0.1 - 1.2 X10*3/uL [facility] Eosinophils Absolute Auto 0.1 0.0 - 0.4 X10*3/uL [facility] Basophils Absolute Auto 0.0 0.0 - 0.2 X10*3/uL [facility] NRBC Abs Auto 0.000 0.0 - 0.012 X10*3/uL [facility] Blood Venous blood specimen / Unknown 07/03/2024 2:09 PM EDT 07/03/2024 4:15 PM EDT Joseph Magana MD LAB BLOOD ORDERABLES Edited Resu lt - Final [facility] [address] [place] [address] [phone] documented in this encounter Visit Diagnoses Diagnosis Iron deficiency anemia, unspecified iron deficiency anemia type documented in this encounter Additional Health Concerns Assessment Noted Time PHQ-9 Depression Total Score: 0 01/30/20 24 11:07 AM EDT documented as of this encounter Care Teams Paving Block Cutter Relationship Specialty Start Date End Date Name, MD Joseph [address] [place] [address] PCP - General Family Medicine 01/21/22 documented as of this encounter
--- OUTSIDE RECORDS SUMMARY | 2025-07-30 04:35 | XMS_ITS | Encounter Summary ---
Author Organization [employer] Address 75 [facility] 7t [place] [address] Care Team Providers Care Physician'S Assistant Name Role Phone Name, Joseph KIM Primary Care Provider [phone] Reason for Visit * Reason Onset Date Comments Med Refill 07/28/2023 Encounter Details Date Type Department Care Team ([facility] st Contact Info) Description 07/28/2023 Telephone [facility] 230 [place], [place] [phone] Name, MD Joseph 230 [place], [place] [phone] Med Refill Social History Tobacco Use Types [...] t he electric, gas, oil or water [employer] threatened to shut off services in your [...] from patient requesting medication refill for HYDROcodone-acetaminophen ([place]) 7.5-325 MG tablet. documented in this encounter Plan of Treatment Upcoming Encounters Date Type Department Care Team (Late st Contact Info) Description 08/29/2025 9:30 AM EST Telemedicine [facility] [address] [place] [phone] Kaitlynn Landrum RN 09/17/2025 11:15 AM EST Office Visit [facility] [address] [place] [address] Name, MD Joseph [address] [place] [address] documented as of this encounter Visit Diagnoses Not on filedocumented in this encounter Additional Health Concerns Assessment Noted Time PHQ-9 Depression Total Score: 4 09/22/19 23 11:14 AM EST documented as of this encounter Care Teams Physician'S Assistant Relationship Specialty Start Date End Date Name, MD Joseph [address] [place] [address] PCP - General Family Medicine 01/21/22 documented as of this encounter
--- OUTSIDE RECORDS SUMMARY | 2025-07-30 04:35 | XMS_ITS | Encounter Summary ---
Author Organization [employer] Address 75 [facility] 7t [place] [address] Care Team Providers Care Report Manager Name Role Phone Name, Joseph KIM Primary Care Provider [phone] Reason for Visit * Reason Onset Date Comments Nurse Triage 09/17/2024 Encounter Details Date Type Department Care Team ([facility] st Contact Info) Description 09/17/2024 Telephone [facility] MEDICINE [address] [place], [place] [phone] Name, MD Joseph [address] [place] [address] Nurse Triage Social History Tobacco Use Types [...] answer LVM to return call to [facility] triage line [phone]. * Telephone Encounter - Salvador Diamond - 09/17/2024 12:36 PM EST Symptom: High Blood Pressure - Caller Reports Outcome: Transfer to a nurse or provider NOW! Reason: Trouble breathing The caller accepted this outcome. documented in this encounter Plan of Treatment Upcoming Encounters Date Type Department Care Team (Late st Contact Info) Description 08/29/2025 9:30 AM EST Telemedicine [facility] MED[facility]INE [address] [place] [phone] Kiatlynn Landrum RN 09/17/2025 11:15 AM EST Office Visit [facility] [address] [place] [address] NameJoseph MD [address] [place] [phone] documented as of this encounter Visit Diagnoses Not on filedocumented in this encounter Additional Health Concerns Assessment Noted Time PHQ-9 Depression Total Score: 0 01/30/20 24 11:07 AM EDT documented as of this encounter Care Teams Report Manager Relationship Specialty Start Date End Date Joseph Magana MD [address] [place] [address] PCP - General Family Medicine 01/21/22 documented as of this encounter
--- OUTSIDE RECORDS SUMMARY | 2025-07-30 04:35 | XMS_ITS | Encounter Summary ---
Author Organization [employer] Address 75 [facility] 7t [place] [address] Care Team Providers Care Veterinary Science Teacher Name Role Phone Name, Joseph KIM Primary Care Provider [phone] Encounter Details Date Type Department Care Team (Late st Contact Info) Description 08/16/2024 Orders Only [facility] MEDICINE [address] [place], [place] [phone] Name, MD Joseph [address] [place], [place] [phone] Iron deficiency anemia, unspecified iron deficiency anemia [...] Info) Description 08/29/2025 9:30 AM EST Telemedicine [facility] [address] [place] [phone] Kaitlynn Landrum RN 09/17/2025 11:15 AM EST Office Visit [address] [address] Name, MD Joseph [address] [place] [address] documented as of this encounter Visit Diagnoses Diagnosis Iron deficiency anemia, unspecified iron deficiency anemia type documented in this encounter Additional Health Concerns Assessment Noted Time PHQ-9 Depression Total Score: 0 01/30/20 24 11:07 AM EDT documented as of this encounter Care Teams Veterinary Science Teacher Relationship Specialty Start Date End Date Name, MD Joseph [address] [place] [address] PCP - General Family Medicine 01/21/22 documented as of this encounter
--- OUTSIDE RECORDS SUMMARY | 2025-07-30 04:35 | XMS_ITS | Encounter Summary ---
Author Organization [employer] Address 75 [facility] 7t [place] [address] Care Team Providers Care Veterinary Technologist Name Role Phone Name, Joseph KIM Primary Care Provider [phone] Encounter Details Date Type Department Care Team (Late st Contact Info) Description 07/26/2024 Orders Only [facility] MEDICINE [address] [place], [place] [phone] Name, MD Joseph [address] [place], [place] [phone] Iron deficiency anemia, unspecified iron deficiency anemia [...] 08/29/2025 9:30 AM EST Telemedicine [facility] MEDICINE [address] [place] [phone] Kaitlynn Landrum RN 09/17/2025 11:15 AM EST Office Visit [address] [address] Name, MD Joseph [address] [place] [phone] documented as of this encounter Visit Diagnoses Diagnosis Iron deficiency anemia, unspecified iron deficiency anemia type documented in this encounter Additional Health Concerns Assessment Noted Time PHQ-9 Depression Total Score: 0 01/30/20 24 11:07 AM EDT documented as of this encounter Care Teams Veterinary Technologist Relationship Specialty Start Date End Date Name, MD Joseph [address] [place] [phone] PCP - General Family Medicine 01/21/22 documented as of this encounter
--- OUTSIDE RECORDS SUMMARY | 2025-07-30 04:35 | XMS_ITS | Encounter Summary ---
Author Organization [employer] Address 75 [facility] 7t [place] [address] Care Team Providers Care Weight Loss Consultant Name Role Phone Name, Joseph KIM Primary Care Provider [phone] Encounter Details Date Type Department Care Team (Late st Contact Info) Description 09/06/2024 Orders Only [facility] MEDICINE [address] [place], [place] [phone] Name, MD Joseph [address] [place], [place] [phone] Iron deficiency anemia, unspecified iron deficiency anemia [...] Info) Description 08/29/2025 9:30 AM EST Telemedicine [facility] MEDICINE [address] [place] [phone] Kaitlynn Landrum RN 09/17/2025 11:15 AM EST Office Visit [address] [address] Name, MD Joseph [address] [place] [address] documented as of this encounter Visit Diagnoses Diagnosis Iron deficiency anemia, unspecified iron deficiency anemia type documented in this encounter Additional Health Concerns Assessment Noted Time PHQ-9 Depression Total Score: 0 01/30/20 24 11:07 AM EDT documented as of this encounter Care Teams Weight Loss Consultant Relationship Specialty Start Date End Date Name, MD Joseph [address] [place] [phone] PCP - General Family Medicine 01/21/22 documented as of this encounter
--- OUTSIDE RECORDS SUMMARY | 2025-07-30 04:35 | XMS_ITS | Encounter Summary ---
Author Organization [employer] Address 75 [facility] 7t [place] [address] Care Team Providers Care Police [employer] Instructor Name Role Phone Name, Joseph KIM Primary Care Provider [phone] Encounter Details Date Type Department Care Team (Late st Contact Info) Description 08/23/2024 Orders Only [facility] MEDICINE [address] [place], [place] [phone] Name, MD Joseph [address] [place], [place] [phone] Iron deficiency anemia, unspecified iron deficiency anemia [...] Info) Description 08/29/2025 9:30 AM EST Telemedicine [address] [address] Kaitlynn Landrum RN 09/17/2025 11:15 AM EST Office Visit [address] [address] Name, MD Joseph [address] [place] [phone] documented as of this encounter Procedures Procedure Name Priority Date/Time Associated Diagnosis Comments CBC WITH AUTO DIFFERENTIAL Routine 01/10/2025 3:22 PM EDT Iron deficiency anemia, unspecified iron deficiency anemia type documented in this encounter Results * (ABNORMAL) CBC auto differential (01/10/2025 3:22 PM EDT) White Blood Count 10.6 4.8 - 10.8 X10*3/uL [facility] Red Blood Count 2.98(L) 4.20 - 5.50 X10*6/uL [facility] Hemoglobin 9.1(L) 12.0 - 16.0 g/dl [facility] Hematocrit 29.5(L) 37.0 - 47.0 % [facility] Mean Corpuscular Volume 99.0(H) 80.0 - 98.0 fL [facility] Mean Corpuscular Hemoglobin 30.5 27.0 - 33.0 pg [facility] Mean Corpuscular HGB Conc 30.8(L) 31.0 - 35.0 g/dl [facility] Red Cell Distribution Width 17.2(H) 11.0 - 16.0 % [facility] Platelet Count 125(L) 160 - 400 X10*3/uL [facility] Neutrophils Percent Auto 73.3(H) 45 - 73 % [facility] Imm Gran Pct Auto 0.3 0.0 - 0.4 % [facility] Lymphocytes Percent Auto 13.9(L) 20 - 40 % [facility] Monocytes Percent Auto 8.8 2 - 11 % [facility] Eosinophils Percent Auto 3.0 0 - 4 % [facility] Basophils Percent Auto 0.7 0 - 2 % [facility] NRBC Pct Auto 0.0 0.0 - 0.2 /100WBC [facility] Neutrophils Absolute Auto 7.7 2.0 - 8.3 x10*3/uL [facility] Imm Gran Abs Auto 0.03 0.00 - 0.03 X10*3/uL [facility] Lymphocytes Absolute Auto 1.5 1.2 - 4.9 X10*3/uL [facility] Monocytes Absolute Auto 0.9 0.1 - 1.2 X10*3/uL [facility] Eosinophils Absolute Auto 0.3 0.0 - 0.4 X10*3/uL [facility] Basophils Absolute Auto 0.1 0.0 - 0.2 X10*3/uL [facility] NRBC Abs Auto 0.000 0.0 - 0.012 X10*3/uL [facility] Blood Venous blood specimen / Unknown 01/10/2025 3:22 PM EDT 01/10/2025 4:01 PM EDT us Joseph Magana MD LAB BLOOD ORDERABLES Edited Resu lt - Final [facility] [address] [place], [place] [phone] documented in this encounter Visit Diagnoses Diagnosis Iron deficiency anemia, unspecified iron deficiency anemia type documented in this encounter Additional Health Concerns Assessment Noted Time PHQ-9 Depression Total Score: 0 01/30/20 24 11:07 AM EDT documented as of this encounter Care Teams Police Academy Instructor Relationship Specialty Start Date End Date Name, MD Joseph [address] [place] [address] PCP - General Family Medicine 01/21/22 documented as of this encounter
--- OUTSIDE RECORDS SUMMARY | 2025-07-30 04:35 | XMS_ITS | Encounter Summary ---
Author Organization [employer] Address 75 [facility] 7t [place] [address] Care Team Providers Care Transportation Planning Engineer Name Role Phone Name, Joseph KIM Primary Care Provider Reason for Visit * Reason Onset Date Comments Triage 12/28/2022 Encounter Details Date Type Department Care Team ([facility] st Contact Info) Description 12/28/2022 Telephone [facility] MEDICINE [address] [place], [place] [phone] Name, MD Joseph [address] [place] [address] Triage Social History Tobacco Use Types Packs/Day [...] accepted this outcome Please contact pt at [phone] documented in this encounter Plan of Treatment Upcoming Encounters Date Type Department Care Team (Late st Contact Info) Description 08/29/2025 9:30 AM EST Telemedicine [facility] MEDICINE [address] [place] [phone] Kaitlynn Landrum RN 09/17/2025 11:15 AM EST Office Visit [facility] [address] [place] [address] Name, MD Joseph [address] [place] [address] documented as of this encounter Visit Diagnoses Not on filedocumented in this encounter Additional Health Concerns Assessment Noted Time PHQ-9 Depression Total Score: 4 09/22/19 23 11:14 AM EST documented as of this encounter Care Teams Transportation Planning Engineer Relationship Specialty Start Date End Date Name, MD Joseph [address] [place] [address] PCP - General Family Medicine 01/21/22 documented as of this encounter
[2025-07-30 04:36] LABS: Alanine Aminotransferase 13 U/L (0-31); Albumin Level 4.2 g/dL (3.5-5.0); Alkaline Phosphatase 50 U/L (39-117); Anion Gap 16 (12-20); Aspartate Amino Transferase 35 U/L (5-31); Blood Urea Nitrogen 13 mg/dL (9-16); Calcium 8.8 mg/dL (8.4-10.2); Carbon Dioxide 21 mmol/L (22-29); Chloride 107 mmol/L (96-108); Creatinine Clr Calc Pharmacy 64.0; Estimated Glomerular Filt Rate > 60; Lipase 18 U/L (8-78); Magnesium 1.7 mg/dL (1.6-2.6); Potassium 3.9 mmol/L (3.3-5.1); Sodium 140 mmol/L (135-145); Total Protein 6.3 g/dL (6.5-8.0)
[2025-07-30 04:39] LABS: IDNOW Serial# 55D5AD1C; Influenza B2 Negative (Negative)
[2025-07-30 04:45] LABS: Hematocrit 33.5 % (37.0-47.0); Hemoglobin 10.8 g/dl (12.0-16.0); Imm Gran Abs Auto 0.06 X10*3/uL (0.00-0.03); Imm Gran Pct Auto 0.6 % (0.0-0.4); Lymphocytes Absolute Auto 1.0 X10*3/uL (1.2-4.9); MANUAL DIFF FLAG SCAN; Mean Corpuscular HGB Conc 32.2 g/dl (31.0-35.0); Mean Corpuscular Hemoglobin 30.4 pg (27.0-33.0); Mean Corpuscular Volume 94.4 fL (80.0-98.0); NRBC Abs Auto 0.000 X10*3/uL (0.0-0.012); NRBC Pct Auto 0.0 /100WBC (0.0-0.2); PLT CLUMP 1; Red Blood Count 3.55 X10*6/uL (4.20-5.50); SCAN SMEAR FLAG 1
[2025-07-30 04:49] LABS: Platelet Count 72 X10*3/uL (160-400); White Blood Count 10.3 X10*3/uL (4.8-10.8)
[2025-07-30 05:03] LABS: Appearance Urine Clear; Glucose Urine UA Negative (Negative); PH 6.0 (5.0-9.0); Specific Gravity - Urine 1.025 (1.005-1.025); UMIC TRIGGER UACC YES
[2025-07-30 05:43] VITALS: BP 157/59; PULSE 87; RESP 16; TEMP 36.8; O2SAT 98
[2025-07-30] MEDS: oxyCODONE HCl Immed Release 5 MG TABLET 10 MG PO (05:45)
[2025-07-30] MEDS: iohexoL 350 MG/ML 100 ML INFUS..BTL 85 ML IV (05:57)
[2025-07-30 07:27] VITALS: BP 111/58; PULSE 91; RESP 16; O2SAT 91
[2025-07-30 11:23] VITALS: BP 104/45; PULSE 86; RESP 16; O2SAT 96
--- NOTE | 2025-07-30 11:27 | MHC.EDTECH ---
Patient not able to have a bowel movement at this time
[2025-07-30 12:34] VITALS: BP 104/45; PULSE 86; RESP 16; TEMP 36.6; O2SAT 96
== END 2025-07-30 12:56 | disposition home or self-care (01) ==
PROVIDERS: Physician Assistant Medical; Emergency Provider Emergency Medicine; PCP Internal Medicine Geriatric Medicine
DX: R11.2 Nausea with vomiting, unspecified (principal); R10.9 Unspecified abdominal pain; R19.7 Diarrhea, unspecified; D69.3 Immune thrombocytopenic purpura; J43.9 Emphysema, unspecified; G89.29 Other chronic pain; F41.9 Anxiety disorder, unspecified; I10 Essential (primary) hypertension; Z79.891 Long term (current) use of opiate analgesic; Z79.899 Other long term (current) drug therapy; Z88.0 Allergy status to penicillin; Z88.2 Allergy status to sulfonamides
CPT/HCPCS: 74177; 80053; 81001; 81003; 83690; 83735; 85025; 87502; 87635; 96374; 99284; 99285; J2405; Q9967

== ENCOUNTER → 2025-07-30 05:13 | Outpatient (BNV) | payer OTHER, SELFPAY | PROVIDERS: Emergency Provider Emergency Medicine; PCP Internal Medicine Geriatric Medicine; Visit Provider Radiology Vascular & Interventional Radiology | DX: R11.2 Nausea with vomiting, unspecified (principal); R19.7 Diarrhea, unspecified | CPT/HCPCS: 74177 ==